=== PATIENT | male | born 1950 | race Caucasian/White ===

== ENCOUNTER 2016-12-03 18:03 | Inpatient (IN) | payer MEDICARE ==
[~2016-12-03] VITALS: Ht 175.3 cm; Wt 57.7 kg
[~2016-12-03 18:03] MED LIST: ASPI-587 PO; CALC600T; CLPD75T PO; HYDR1TAB86 PO; LISI10TA2 PO; LISI1TAB10; OMEP-10; THERMOTABS; TRAM50TA2 PO
[2016-12-03] MEDS ORDERED: fentaNYL INJECTION 100 MCG/2 ML AMP IVP STA (18:17)
[2016-12-03 18:20] LABS: BASOPHILS # (AUTO) 0.1 10^3/uL (0.0-0.1); BASOPHILS % (AUTO) 1 % (0-10); EOSINOPHILS # (AUTO) 0.1 10^3/uL (0.0-0.3); EOSINOPHILS % (AUTO) 1 % (0-10); LYMPHOCYTES # (AUTO) 1.2 X 10^3 (1.0-4.0); LYMPHOCYTES % (AUTO) 12 % (12-44); MEAN CORPUSCULAR HEMOGLOBIN 34 PG (25-34); MEAN CORPUSCULAR HGB CONC 36 G/DL (32-36); MEAN CORPUSCULAR VOLUME 96 FL (80-99); MEAN PLATELET VOLUME 8.8 FL (7.4-10.4); MONOCYTES # (AUTO) 0.8 X 10^3 (0.0-1.0); MONOCYTES % (AUTO) 7 % (0-12); NEUTROPHILS # (AUTO) 8.1 X 10^3 (1.8-7.8); NEUTROPHILS % (AUTO) 79 % (42-75); PLATELET COUNT 263 10^3/uL (130-400); RED CELL DISTRIBUTION WIDTH 12.4 % (10.0-14.5); WHITE BLOOD COUNT 10.2 10^3/uL (4.3-11.0)
[2016-12-03] MEDS ORDERED: NS IV 500 ML 500 ML IV ONE (18:29)
--- NOTE | 2016-12-03 18:29 | ED Fall/Injury ---
General Chief Complaint: Trauma-Non Activation Stated Complaint: PT FELL,RT HIP INJ Nursing Triage Note: PT REPORTS HE WAS COMING IN FROM OUTSIDE WHEN HE FELL/TRIPPED ON SOMETHING INSIDE THE HOUSE. PT REPORTS LANDING ON THE R SIDE. PT REPORTS R HIP/LEG PAIN BUT DENIES LOC OR HITTING HEAD. Source: patient Exam Limitations: no limitations History of Present Illness Time seen by provider: 18:09 Initial Comments Here with report of falling in his kitchen. He states that he tripped over a step stool and then fell in his kitchen. He was reaching up to try to get a plate when he tripped. Denies hitting his head. He did land on his right hip. His occurred about 330. It took a couple of hours to scoot himself to a phone. EMS was summoned and brought him here. They did initiate IV and give him 50 g of fentanyl IV in route for pain. This did help a little bit. Aside from hip pain, denies other concerns. Location Injury Occurred: HOME RESIDENCE Occurred: this afternoon Severity: moderate Injuries/Pain Location: pelvis, lower extremity Context: tripped Loss of Consciousness: no loss of consciousness Modifying Factors: Improves With Immobilization, Worse With Movement, Improves With Pain Medication Associated Symptoms (Fall): No Abdominal Pain, No Chest Pain, No Confusion, No Headache, No Lightheadedness, No Nausea/Vomiting, No Neck Pain, No Shortness of Air Allergies and Home Medications Allergies Coded Allergies: No Known Allergies (Unverified Allergy, Mild, 02/08/09) Home Medications Aspirin 81 Mg Tablet.dr 81 MG PO DAILY, (Reported) Clopidogrel 75 Mg Tablet, 1 EACH PO DAILY, (Reported) Cyclobenzaprine HCl 10 Mg Tablet, 10 MG PO TID, (Reported) Furosemide 40 Mg Tablet, 40 MG PO, (Reported) Hydrocodone Bit/Acetaminophen 1 Each Tablet, (Reported) Lisinopril 10 Mg Tablet, 10 MG PO DAILY, (Reported) Metoclopramide HCl 10 Mg Tablet, 10 MG PO BID, (Reported) Omeprazole 20 Mg Capsule., (Reported) Pravastatin Sodium 40 Mg Tablet, 40 MG PO DAILY, (Reported) Tramadol Hcl 50 Mg Tablet, (Reported) [thermotabs] TABLET, (Reported) Constitutional: see HPI, No chills, No fever Eyes: No Symptoms Reported Ears, Nose, Mouth, Throat: no symptoms reported Respiratory: no symptoms reported, No short of breath, No wheezing Cardiovascular: no symptoms reported, No chest pain, No edema Gastrointestinal: no symptoms reported, No nausea, No vomiting Genitourinary: no symptoms reported Musculoskeletal: see HPI, joint pain, muscle pain, muscle stiffness Skin: change in color (a few scattered bruises to bilateral arms), lesions ( small abscess right mid buttock) Psychiatric/Neurological: Denies Headache, Denies Weakness Past Xtndwjg-Lrjmgx-[place] Hx Patient Social History Alcohol Use: Regular Use Recreational Drug Use: No Smoking Status: Current Everyday Smoker Type Used: Cigarettes Recent Foreign Travel: No Contact w/Someone Who Travel: No Recent Hopitalizations: No Immunizations Up To Date Tetanus Booster (TDap): More than 5yrs Surgeries HX Surgeries: Yes (TRIPPLE BYPASS WITH STENT) Respiratory Hx Respiratory Disorders: No Cardiovascular Hx Cardiac Disorders: Yes Cardiac Disorders: Hypertension Neurological Hx Neurological Disorders: No Reproductive System Hx Reproductive Disorders: No Sexually Transmitted Disease: No Genitourinary Hx Genitourinary Disorders: No Gastrointestinal Hx Gastrointestinal Disorders: Yes Gastrointestinal Disorders: Gastroesophageal Reflux Musculoskeletal Hx Musculoskeletal Disorders: Yes Musculoskeletal Disorders: Arthritis, Scoliosis Endocrine Hx Endocrine Disorders: No HEENT HX ENT Disorders: Yes (occasional nosebleeds.) Cancer Hx Cancer: No Psychosocial Hx Psychiatric Problems: No Integumentary HX Skin/Integumentary Disorder: No Blood Transfusions Hx Blood Disorders: No Reviewed Nursing Assessment Reviewed/Agree w Nursing PMH: Yes Family Medical History Significant Family History: No Pertinent Family Hx Physical Exam Vital Signs Vital Sign - Last 12Hours 12/03/16 18:22 Temp 98.1 Pulse 99 Resp 18 B/P (MAP) 166/111 Pulse Ox 95 O2 Delivery Room Air Capillary Refill : General Appearance: WD/WN, mild distress (right hip and upper leg pain) HEENT: PERRL/EOMI, pharynx normal Neck: non-tender, full range of motion, supple, normal inspection Cardiovascular: regular rate, rhythm, no murmur Respiratory: lungs clear, normal breath sounds Peripheral Pulses: 2+ Dorsalis Pedis (R), 2+ Left Dors-Pedis (L), 2+ Radial Pulses (R), 2+ Radial Pulses (L) Gastrointestinal: non tender, soft Back: normal inspection, no CVA tenderness, no vertebral tenderness Extremities: pelvis stable, other (maintaining slightly flexed right leg and holding on to the right upper leg at the area of the right hip. No obvious deformity. Distal sensation and circulation intact.) Neurologic/Psychiatric: alert, oriented x 3 Skin: warm/dry, ecchymosis (bilateral forearms), other (small draining abscess to the right mid buttock area.) [place] Coma Score Best Eye Response: (4) Open Spontaneously Best Verbal Response: (5) Oriented Best Motor Response: (6) Obeys Commands Progress/Results/Core Measures Results/Orders Lab Results Laboratory Tests Test 12/03/16 18:14 12/03/16 18:40 12/03/16 19:26 Range/Units White Blood Count 10.2 4.3-11.0 10^3/uL Red Blood Count 3.70 L 4.35-5.85 10^6/uL Hemoglobin 12.6 L 13.3-17.7 G/DL Hematocrit 36 L 40-54 % Mean Corpuscular Volume 96 80-99 FL Mean Corpuscular Hemoglobin 34 25-34 PG Mean Corpuscular Hemoglobin Concent 36 32-36 G/DL Red Cell Distribution Width 12.4 10.0-14.5 % Platelet Count 263 130-400 10^3/uL Mean Platelet Volume 8.8 7.4-10.4 FL Neutrophils (%) (Auto) 79 H 42-75 % Lymphocytes (%) (Auto) 12 12-44 % Monocytes (%) (Auto) 7 0-12 % Eosinophils (%) (Auto) 1 0-10 % Basophils (%) (Auto) 1 0-10 % Neutrophils # (Auto) 8.1 H 1.8-7.8 X 10^3 Lymphocytes # (Auto) 1.2 1.0-4.0 X 10^3 Monocytes # (Auto) 0.8 0.0-1.0 X 10^3 Eosinophils # (Auto) 0.1 0.0-0.3 10^3/uL Basophils # (Auto) 0.1 0.0-0.1 10^3/uL Sodium Level 129 L 135-145 MMOL/L Potassium Level 4.0 3.6-5.0 MMOL/L Chloride Level 98 98-107 MMOL/L Carbon Dioxide Level 17 L 21-32 MMOL/L Anion Gap 14 5-14 MMOL/L Blood Urea Nitrogen 4 L 7-18 MG/DL Creatinine 0.58 L 0.60-1.30 MG/DL Estimat Glomerular Filtration Rate > 60 BUN/Creatinine Ratio 7 Glucose Level 90 70-105 MG/DL Calcium Level 8.3 L 8.5-10.1 MG/DL Total Bilirubin 0.4 0.1-1.0 MG/DL Aspartate Amino Transf (AST/SGOT) 24 5-34 U/L Alanine Aminotransferase (ALT/SGPT) 18 0-55 U/L Alkaline Phosphatase 68 40-136 U/L Total Protein 6.0 L 6.4-8.2 GM/DL Albumin 3.8 3.2-4.5 GM/DL Serum Alcohol < 10 <10 MG/DL Prothrombin Time 13.0 12.2-14.7 SEC INR Comment 1.0 0.8-1.4 Activated Partial Thromboplast Time 30 24-35 SEC Urine Color YELLOW Urine Clarity CLEAR Urine pH 6.5 5-9 Urine Specific [place] 1.010 L 1.016-1.022 Urine Protein NEGATIVE NEGATIVE Urine Glucose (UA) NEGATIVE NEGATIVE Urine Ketones NEGATIVE NEGATIVE Urine Nitrite NEGATIVE NEGATIVE Urine Bilirubin NEGATIVE NEGATIVE Urine Urobilinogen NORMAL NORMAL MG/DL Urine Leukocyte Esterase NEGATIVE NEGATIVE Urine RBC (Auto) NEGATIVE NEGATIVE Urine RBC NONE /HPF Urine WBC RARE /HPF Urine Crystals NONE /LPF Urine Bacteria NEGATIVE /HPF Urine Casts NONE /LPF Urine Mucus NEGATIVE /LPF Urine Culture Indicated NO My Orders Orders - LA[place] LAURENT MD Fentanyl Injection (Sublimaze Injection (12/03/16 18:17) Pelvis (12/03/16 18:18) Saline Lock/Iv-Start (12/03/16 18:29) Ns Iv 500 Ml (Sodium Chloride 0.9%) (12/03/16 18:29) Monitor-Rhythm Ecg Trace Only (12/03/16 18:29) Ct Extremity Lower Right Wo (12/03/16 19:04) Hydromorphone Injection (Dilaudid Inject (12/03/16 19:19) Catheter(Urinary) Insert & Ass 03,15 (12/03/16 19:19) Protime With Inr (12/03/16 19:20) Partial Thromboplastin Time (12/03/16 19:20) Medications Given in ED Current Medications Medications Dose Ordered Sig/Jorge Route Start Time Stop Time Status Last Admin Dose Admin Sodium Chloride 500 ml @ 0 mls/hr Q0M ONCE IV 12/03/16 18:29 12/03/16 18:30 DC 12/03/16 19:21 0 MLS/HR Vital Signs/I&O Vital Sign - Last 12Hours 12/03/16 18:22 Temp 98.1 Pulse 99 Resp 18 B/P (MAP) 166/111 Pulse Ox 95 O2 Delivery Room Air Progress Note : Progress Note Seen and evaluated. IV by EMS. Labs, EKG, chest x-ray, pelvic x-ray and right hip x-ray ordered. No one 100 g IV ordered. UA ordered. Monitor patient. We will get CT of the right hip due to vague findings on x-ray with over shadowing due to calcified vascular structures and difficulty with osteopenia. 1924: CT does verify intertrochanteric fracture and no other significant abnormality. I did discuss the case with Dr. Cano, on-call for [facility]. She accepts patient for admission. Case discussed with Dr. Bass at 1930 and he accepts patient in consult in anticipation of surgery. Dr. Rice page for cardiovascular clearance prior to surgery due to patient's history of cardiovascular disease. Findings concerns discussed with patient and family who agree. Dilaudid 1 mg IV for pain. Michael catheter placed. Admit, inpatient status. Nothing by mouth after midnight in anticipation of surgery tomorrow. 1954: I did discuss the case with Dr. Rice. He is requesting to hold Plavix and he will see patient for same the morning for clearance. This is ordered. Admitted inpatient. ECG Initial ECG Impression Date: Dec 03, 2016 Initial ECG Impression Time: 18:25 Initial ECG Rate: 97 Initial ECG Rhythm: Normal Sinus Comment Sinus rhythm with normal axis. No evidence of ST elevation RI. Similar to previous but increased rate. Interpreted by me. Diagnostic Imaging Diagonstic Imaging: Xray Plain Films/CT/US/NM/MRI: chest Comments NAME: MALACHI BRUNO MED REC#: [id number] PT STATUS: REG ER : 1950 PHYSICIAN: JOSE MARTELL APRN ADMIT DATE: 12/03/16/ER Signed Date of Exam: 12/03/16 CHEST 1 VIEW, AP/PA ONLY INDICATION: Fall COMPARISON: 03/31/2015 FINDINGS: A single frontal view of the chest is obtained. Heart size is normal. The pulmonary vessels appear unremarkable. The thoracic aortic structures are unchanged. There are post median sternotomy changes. There is no pneumothorax or pleural fluid. There is significant elevation of left hemidiaphragm which is unchanged from prior study. Some minimal left basilar atelectasis is also again noted. Lungs are otherwise clear. IMPRESSION: Significant elevation of the left hemidiaphragm with some left basilar atelectasis similar to the prior study. No new or acute abnormality is suspected. Dictated by: Dictated on workstation # [id number] Dict: 12/03/161903 Trans: 12/03/161907 Interpreted by: RYAN MOELLER DO Electronically signed by: RYAN MOELLER DO 12/03/161907 Diagonstic Imaging: Xray Plain Films/CT/US/NM/MRI: pelvis Comments Question of right hip fracture Reviewed: Reviewed by Nv Diagonstic Imaging: Xray Plain Films/CT/US/NM/MRI: pelvis Comments Likely a right intertrochanteric hip fracture. Reviewed: Reviewed by Nv Diagonstic Imaging: CT Plain Films/CT/US/NM/MRI: hip Comments [place]IA [place] NAME: MALACHI BRUNO [facility] REC#: [id number] PT STATUS: REG ER : 1950 PHYSICIAN: LA[place] LAURENT MD ADMIT DATE: 12/03/16/ER Draft Date of Exam:12/03/16 CT EXTREMITY LOWER RIGHT WO PROCEDURE: CT right lower extremity without contrast. TECHNIQUE: Axially acquired CT was obtained through the right lower extremity without intravenous contrast. Coronal and sagittal reformations were also performed. INDICATION: Right hip fracture. COMPARISON: Right hip and pelvis radiographs from earlier today. FINDINGS: Comminuted mildly distracted right intertrochanteric hip fracture. No fractures in the visualized pelvis. The right femoral head is normally situated in the acetabulum. Moderate degenerative changes in the right hip. Coarse arterial calcifications. Distended bladder. The visualized pelvic contents are otherwise unremarkable. IMPRESSION: 1. Comminuted mildly distracted right intertrochanteric hip fracture. 2. Distended bladder. Dictated on workstation # [id number] Dict: 12/03/161922 Trans: 12/03/161927 [facility] [id number] Interpreted by: CRUZITO RIOS MD Electronically signed by: Departure Communication Time/Spoke to Admitting Phy: 19:25 Time/Spoke to Consulting Physi: 19:30 Impression Impression: Primary Impression: Intertrochanteric fracture of right hip Qualified Codes: S72.144A - Nondisplaced intertrochanteric fracture of right femur, initial encounter for closed fracture Disposition: ADMITTED INPATIENT Condition: Stable Decision to Admit Reason: Admit from ER (General) Decision to Admit/Date: Dec 03, 2016 Time/Decision to Admit Time: 19:25 Departure-Patient Inst. Referrals: PRISCILA PITT MD (PCP/Family) Primary Care Physician LA[place] LAURENT MD Dec 03, 2016 18:29
[2016-12-03 18:38] LABS: ALANINE AMINOTRANSFERASE 18 U/L (0-55); ALBUMIN 3.8 GM/DL (3.2-4.5); ANION GAP 14 MMOL/L (5-14); ASPARTATE AMINO TRANSFERASE 24 U/L (5-34); BILIRUBIN,TOTAL 0.4 MG/DL (0.1-1.0); BLOOD UREA NITROGEN 4 MG/DL (7-18); BUN/CREATININE RATIO 7; CALCIUM 8.3 MG/DL (8.5-10.1); CARBON DIOXIDE 17 MMOL/L (21-32); CHLORIDE 98 MMOL/L (98-107); CREATININE SERUM 0.58 MG/DL (0.60-1.30); GFR ESTIMATED > 60; GLUCOSE 90 MG/DL (70-105); SODIUM 129 MMOL/L (135-145)
[2016-12-03] MEDS ORDERED: CYCL10TA9 PO (18:38)
[2016-12-03] MEDS ORDERED: PRAV40TA2 PO (18:38)
[2016-12-03] MEDS ORDERED: METO10TA3 PO ×2 (18:38→23:05)
[2016-12-03] MEDS ORDERED: FURO40TA4 PO (18:38)
--- NOTE | 2016-12-03 19:09 | Diagnostic Imaging Report ---
INDICATION: Fall COMPARISON: 03/31/2015 FINDINGS: A single frontal view of the chest is obtained. Heart size is normal. The pulmonary vessels appear unremarkable. The thoracic aortic structures are unchanged. There are post median sternotomy changes. There is no pneumothorax or pleural fluid. There is significant elevation of left hemidiaphragm which is unchanged from prior study. Some minimal left basilar atelectasis is also again noted. Lungs are otherwise clear. IMPRESSION: Significant elevation of the left hemidiaphragm with some left basilar atelectasis similar to the prior study. No new or acute abnormality is suspected. Dictated by: Dictated on workstation # [id number]
[2016-12-03] MEDS ORDERED: HYDROmorphone (DILAUDID) 2 MG/ML VIAL IVP STA (19:19)
--- NOTE | 2016-12-03 19:29 | Diagnostic Imaging Report ---
PROCEDURE: CT right lower extremity without contrast. TECHNIQUE: Axially acquired CT was obtained through the right lower extremity without intravenous contrast. Coronal and sagittal reformations were also performed. INDICATION: Right hip fracture. COMPARISON: Right hip and pelvis radiographs from earlier today. FINDINGS: Comminuted mildly distracted right intertrochanteric hip fracture. No fractures in the visualized pelvis. The right femoral head is normally situated in the acetabulum. Moderate degenerative changes in the right hip. Coarse arterial calcifications. Distended bladder. The visualized pelvic contents are otherwise unremarkable. IMPRESSION: 1. Comminuted mildly distracted right intertrochanteric hip fracture. 2. Distended bladder. Dictated by: Dictated on workstation # [id number]
[2016-12-03 19:32] LABS: BILIRUBIN,URINE NEGATIVE (NEGATIVE); KETONES,URINE NEGATIVE (NEGATIVE); LEUKOCYTE ESTERASE ,URINE NEGATIVE (NEGATIVE); NITRITE,URINE NEGATIVE (NEGATIVE); PH,URINE 6.5 (5-9); PROTEIN,URINE NEGATIVE (NEGATIVE); UROBILINOGEN,URINE NORMAL (NORMAL)
[2016-12-03 19:43] LABS: WBC,URINE RARE /HPF
[2016-12-03 20:05] VITALS: BP 163/103
[2016-12-03] MEDS: HYDROmorphone (DILAUDID) 2 MG/ML VIAL IV PRN (21:22)
[2016-12-03] MEDS: CATHETER FLUSH 10 ML SYR IV SCH (21:22)
[2016-12-03] MEDS ORDERED: CATHETER FLUSH 10 ML SYR IV PRN (21:30)
[2016-12-03] MEDS ORDERED: FLUTICASONE NS (23:05)
[2016-12-03] MEDS: NS IV 1000 ML 1,000 ML IV SCH (23:22)
[2016-12-04] VITALS (7 sets, daily range): BP systolic 98–177; BP diastolic 57–101
[2016-12-04] MEDS ORDERED: amLODIPine 5 MG (NORVASC) TAB PO ONE (00:30)
[2016-12-04] MEDS: HYDROmorphone (DILAUDID) 2 MG/ML VIAL IV PRN ×3 (00:33→08:02)
[2016-12-04] MEDS: NS IV 1000 ML 1,000 ML IV SCH ×3 (06:01→20:29)
[2016-12-04] MEDS: CATHETER FLUSH 10 ML SYR IV SCH ×3 (06:01→20:30)
[2016-12-04 06:10] LABS: BASOPHILS % (AUTO) 0 % (0-10); EOSINOPHILS % (AUTO) 0 % (0-10); LYMPHOCYTES # (AUTO) 1.2 X 10^3 (1.0-4.0); LYMPHOCYTES % (AUTO) 12 % (12-44); MEAN CORPUSCULAR HEMOGLOBIN 34 PG (25-34); MEAN CORPUSCULAR HGB CONC 36 G/DL (32-36); MEAN CORPUSCULAR VOLUME 97 FL (80-99); MEAN PLATELET VOLUME 9.1 FL (7.4-10.4); MONOCYTES # (AUTO) 0.9 X 10^3 (0.0-1.0); MONOCYTES % (AUTO) 9 % (0-12); NEUTROPHILS # (AUTO) 7.9 X 10^3 (1.8-7.8); NEUTROPHILS % (AUTO) 79 % (42-75); PLATELET COUNT 272 10^3/uL (130-400); RED BLOOD COUNT 3.64 10^6/uL (4.35-5.85); RED CELL DISTRIBUTION WIDTH 12.5 % (10.0-14.5); WHITE BLOOD COUNT 10.1 10^3/uL (4.3-11.0)
[2016-12-04 06:37] LABS: ALANINE AMINOTRANSFERASE 17 U/L (0-55); ALBUMIN 3.7 GM/DL (3.2-4.5); ANION GAP 10 MMOL/L (5-14); ASPARTATE AMINO TRANSFERASE 27 U/L (5-34); BILIRUBIN,TOTAL 0.6 MG/DL (0.1-1.0); BLOOD UREA NITROGEN 4 MG/DL (7-18); BUN/CREATININE RATIO 7; CALCIUM 8.5 MG/DL (8.5-10.1); CARBON DIOXIDE 22 MMOL/L (21-32); CHLORIDE 99 MMOL/L (98-107); CREATININE SERUM 0.58 MG/DL (0.60-1.30); GFR ESTIMATED > 60; GLUCOSE 93 MG/DL (70-105); SODIUM 131 MMOL/L (135-145)
[2016-12-04] MEDS: ONDANSETRON 4 MG/2 ML (SDV) Z0FRAN IV PRN ×3 (08:02→13:26)
[2016-12-04] MEDS ORDERED: fentaNYL INJECTION 250 MCG/5 ML AMP ONE (09:37)
[2016-12-04] MEDS ORDERED: MIDAZOLAM 2 MG/2 ML (VERSED) VIAL ONE (09:37)
[2016-12-04] MEDS ORDERED: proPOfol 200 MG/20 ML (DIPRIVAN) VIAL IV ONE (09:37)
[2016-12-04] MEDS: LACTATED RINGERS 1,000 ML IV PRN ×2 (09:45→11:01)
[2016-12-04] MEDS ORDERED: LACTATED RINGERS 1,000 ML IV ONE ×2 (09:48→10:46)
[2016-12-04] MEDS ORDERED: ceFAZolin 1,000 MG (ANCEF) VIAL ONE (10:13)
[2016-12-04] MEDS ORDERED: HYDROcodone/APAP 10 MG/325 MG (LORTAB) TAB PO PRN (10:15)
[2016-12-04] MEDS ORDERED: morphine INJ 10 MG/ML 1ML (SYR OR VIAL) ONE ×2 (10:18→10:47)
--- NOTE | 2016-12-04 10:29 | Consultation ---
History of Present Illness History of Present Illness Patient Consulted On(jennifer/time) 12/04/16 10:23 Date Seen by Provider: Dec 04, 2016 Time Seen by Provider: 10:23 Reason for Visit: right hip pain History of Present Illness This 66 year old male fell at home and had a right hip fracture and was admitted to Dr. Cano last night with me consulting. He denies any LOC and denies other pain or injury. He has chronic but stable CAD and is on chronic narcotics for lower back problems. Allergies and Home Medications Allergies Coded Allergies: NKANo Known Allergies (Unverified Allergy, Mild, 02/08/09) Home Medications Aspirin 81 Mg Tablet.dr, 81 MG PO DAILY, (Reported) Clopidogrel 75 Mg Tablet, 1 EACH PO DAILY, (Reported) Cyclobenzaprine HCl 10 Mg Tablet, 10 MG PO TID, (Reported) Furosemide 40 Mg Tablet, 40 MG PO DAILY PRN for INDIGESTION, (Reported) Hydrocodone Bit/Acetaminophen 1 Each Tablet, 1 TAB PO Q4H PRN for PAIN-MILD, ( Reported) Lisinopril 10 Mg Tablet, 10 MG PO DAILY, (Reported) Metoclopramide HCl 10 Mg Tablet, 10 MG PO BID, (Reported) Metoclopramide HCl 10 Mg Tablet, 10 MG PO BID, (Reported) Pravastatin Sodium 40 Mg Tablet, 40 MG PO DAILY, (Reported) Tramadol Hcl 50 Mg Tablet, 1 TAB PO Q6H PRN for PAIN-MILD, (Reported) [Fluticasone] , 50 MCG NS DAILY, (Reported) Past Lllzvwj-Lqqavw-Soobis Hx Patient Social History Alcohol Use: Occasionally Uses Recreational Drug Use: No Smoking Status: Current Everyday Smoker Type Used: Cigarettes Recent Foreign Travel: No Contact w/Someone Who Travel: No Recent Infectious Disease Expo: No Recent Hopitalizations: No Physical Abuse Screen: No Sexual Abuse: No Immunizations Up To Date Tetanus Booster (TDap): More than 5yrs Seasonal Allergies Seasonal Allergies: No Surgeries HX Surgeries: Yes (TRIPPLE BYPASS WITH STENT) Respiratory Hx Respiratory Disorders: No Cardiovascular Hx Cardiac Disorders: Yes Cardiac Disorders: Hypertension Neurological Hx Neurological Disorders: No Reproductive System Hx Reproductive Disorders: No Sexually Transmitted Disease: No HIV/AIDS: No Genitourinary Hx Genitourinary Disorders: No Gastrointestinal Hx Gastrointestinal Disorders: Yes Gastrointestinal Disorders: Gastroesophageal Reflux Musculoskeletal Hx Musculoskeletal Disorders: Yes Musculoskeletal Disorders: Arthritis Endocrine Hx Endocrine Disorders: No HEENT HX ENT Disorders: Yes (occasional nosebleeds.) Hearing Impairment: Hard of Hearing Cancer Hx Cancer: No Psychosocial Hx Psychiatric Problems: No Integumentary HX Skin/Integumentary Disorder: No Blood Transfusions Hx Blood Disorders: No Reviewed Nursing Assessment Reviewed/Agree w Nursing PMH: Yes Family Medical History Significant Family History: No Pertinent Family Hx Family Medial History: Cardiovascular disease 19 FATHER 19 MOTHER G8 BROTHER G8 SISTER FH: breast cancer 19 MOTHER Hypertension 19 FATHER 19 MOTHER Review of Systems-General Constitutional: no symptoms reported EENTM: no symptoms reported Respiratory: no symptoms reported Cardiovascular: no symptoms reported, other (Denies chest pain) Gastrointestinal: no symptoms reported Genitourinary: no symptoms reported Musculoskeletal: other (See HPI) Skin: other (He has bruises and minor hand abrasions from the fall) Psychiatric/Neurological: No Symptoms Reported Physical Exam-General Problems Physical Exam Vital Signs Vital Sign - Last 12Hours 12/03/16 18:22 Temp 98.1 Pulse 99 Resp 18 B/P (MAP) 166/111 Pulse Ox 95 O2 Delivery Room Air Capillary Refill : Less Than 3 SecondsLess Than 3 Seconds General Appearance: no apparent distress, thin Eyes: Bilateral Eye Normal Inspection, Bilateral Eye PERRL HEENT: PERRL/EOMI Neck: non-tender Respiratory: chest non-tender, lungs clear Cardiovascular: normal peripheral pulses, regular rate, rhythm Gastrointestinal: normal bowel sounds, non tender Rectal: deferred Back: normal inspection Extremities: other (Right hip tender to palpation and right leg shortened and externally rotated. Other extremities atraumatic) Neurologic/Psychiatric: no motor/sensory deficits Skin: normal color, warm/dry, ecchymosis Lymphatic: no adenopathy Assessment/Plan Assessment/Plan Admission Diagnosis/Plan Right intertrochanteric femur fracture-- will go to the OR for trochanteric femoral nail. We discussed rehab or SNU and he is agreeable to that to recover from the surgery Clinical Quality Measures DVT/VTE Risk/Contraindication: Risk Factor Score Per Nursin RFS Level Per Nursing on Admit: 4+=Very High YOCASTA GOMEZ MD Dec 04, 2016 10:28
[2016-12-04] MEDS ORDERED: ONDANSETRON 4 MG/2 ML (SDV) Z0FRAN ONE (10:46)
--- NOTE | 2016-12-04 11:05 | Progress Note-Post Operative ---
Post-Operative Progess Note Surgeon (s)/Nanofabrication Specialist (s) Surgeon YOCASTA GOMEZ MD Nanofabrication Specialist: CEDRICK GUNN PA-C Pre-Operative Diagnosis RIGHT INTERTROCHANTERIC FEMUR FRACTURE Post-Operative Diagnosis SAME Procedure & Operative Findings Date of Procedure 12/04/16 Procedure Performed/Findings ORIF RIGHT INTERTROCHANTERIC FEMUR FRACTURE USING TROCHANTERIC FEMORAL NAIL Anesthesia Type GENERAL Estimated Blood Loss Estimated blood loss (mL): 100 ML Specimens/Packing Specimens Removed NONE Packing: NONE YOCASTA GOMEZ MD Dec 04, 2016 11:05
[2016-12-04] MEDS ORDERED: SEVOFLURANE (ULTANE) 15 ML INHAL SOLN ONE (11:10)
--- NOTE | 2016-12-04 11:27 | Diagnostic Imaging Report ---
INDICATION: Hip fracture. IMPRESSION: 37.2 seconds of fluoroscopy was used by Dr. Bass in surgery. 2 digital images show internal fixation of an intertrochanteric fracture with a dynamic compression nail. Dictated by: Dictated on workstation # [id number]
[2016-12-04] MEDS ORDERED: ONDANSETRON 4 MG/2 ML (SDV) Z0FRAN IVP PRN (11:30)
[2016-12-04] MEDS ORDERED: KETOROLAC 30 MG/ML VIAL IVP ONE (11:30)
[2016-12-04] MEDS ORDERED: HYDROmorphone (DILAUDID) 2 MG/ML VIAL IVP PRN (11:30)
[2016-12-04] MEDS: morphine INJ 10 MG/ML 1ML (SYR OR VIAL) IVP PRN ×4 (11:43→11:56)
[2016-12-04] MEDS ORDERED: ACETAMINOPHEN PO PRN (12:45)
[2016-12-04] MEDS ORDERED: FUROSEMIDE 40 MG (LASIX) TAB PO PRN (12:45)
[2016-12-04] MEDS ORDERED: HYDROCODONE BIT PO PRN (12:45)
[2016-12-04] MEDS ORDERED: hydrALAZINE (APRESOLINE) 25 MG TAB PO PRN (12:45)
[2016-12-04] MEDS ORDERED: [UNRECOGNIZED DRUG - OTHER] PO PRN (12:45)
[2016-12-04] MEDS: amLODIPine 5 MG (NORVASC) TAB PO SCH (13:07)
[2016-12-04] MEDS: CYCLOBENZAPRINE 10 MG (FLEXERIL) TAB PO SCH ×2 (13:07→20:27)
[2016-12-04] MEDS: ceFAZolin 2 GM/50 ML NS 50 ML IV SCH ×2 (13:08→18:02)
--- NOTE | 2016-12-04 13:12 | Physical Therapy Progress Note ---
Therapy Progress Note Order received, chart reviewed. Patient just got to his room from recovery, he is not ready for physical therapy at this time. He will be seen in the morning. SILVIO NAIDU PT Dec 04, 2016 13:12
--- NOTE | 2016-12-04 13:20 | History & Physical-Hospitalist ---
HPI History of Present Illness: HPI/Chief Complaint CC: ACUTE RIGHT INTERTROCHANTERIC FEMUR FRACTURE POD # 0 HPI: This is a 66-year-old white male that who continues to smoke with a previous bypass surgery in [address] Link at [facility] in [place] the presents following a fall and sustaining a right hip fracture. He just returned from surgery and had an uncomplicated repair by Dr. Bass. The family is aware of the plan that he will need physical therapy and it appears that they will be open to returning home as soon as possible due to family support that is provided. I did initiate incentive spirometer and smoking cessation and will monitor blood pressure since it was elevated I did give Norvasc 5 mg now in addition reconciled and continued all home medications include lisinopril. Source: patient, family Exam Limitations: no limitations Date Seen 12/04/16 Time Seen by Provider: 13:15 Attending Physician Mary Jo Ray DO PCP Bridger Reyes MD Referring Physician Date of Admission Dec 03, 2016 at 19:47 Home Medications & Allergies Home Medications Reviewed patient Home Medication Reconciliation Form Allergies Allergies Coded Allergies NKANo Known Allergies (Unverified Allergy, Mild, 02/08/09) Past Dmnmppr-Hspypz-Fngbtz Hx Patient Social History Marrital Status: Employed/Student: retired Alcohol Use: Occasionally Uses Recreational Drug Use: No Smoking Status: Current Everyday Smoker Type Used: Cigarettes Physical Abuse Screen: No Sexual Abuse: No Recent Foreign Travel: No Contact w/other who traveled: No Recent Hopitalizations: No Recent Infectious Disease Expo: No Immunizations Up To Date Tetanus Booster (TDap): More than 5yrs Seasonal Allergies Seasonal Allergies: No Surgeries HX Surgeries: Yes (TRIPPLE BYPASS WITH STENT) Surgeries: CABG Respiratory Hx Respiratory Disorders: Yes Respiratory Disorders: COPD Cardiovascular Hx Cardiovascular Disorders: Yes Cardiac Disorders: High Cholesterol, Hypertension Neurological Hx Neurological Disorders: No Reproductive System Hx Reproductive Disorders: No Sexually Transmitted Disease: No HIV/AIDS: No Genitourinary Hx Genitourinary Disorders: No Gastrointestinal Hx Gastrointestinal Disorders: Yes Gastrointestinal Disorders: Gastroesophageal Reflux Musculoskeletal Hx Musculoskeletal Disorders: Yes Musculoskeletal Disorders: Arthritis Endocrine Hx Endocrine Disorders: No HEENT HX ENT Disorders: Yes (occasional nosebleeds.) Hearing Impairment: Hard of Hearing Cancer Hx Cancer: No Psychosocial Hx Psychiatric Problems: No Integumentary HX Skin/Integumentary Disorder: No Blood Transfusions Hx Blood Disorders: No Reviewed Nursing Assessment Reviewed/Agree w Nursing PMH: Yes Family Medical History Significant Family History: No Pertinent Family Hx Family Hx: Cardiovascular disease 19 FATHER 19 MOTHER G8 BROTHER G8 SISTER FH: breast cancer 19 MOTHER Hypertension 19 FATHER 19 MOTHER Review of Systems Constitutional: see HPI, weakness EENTM: no symptoms reported Respiratory: no symptoms reported Cardiovascular: no symptoms reported Gastrointestinal: no symptoms reported Genitourinary: no symptoms reported Musculoskeletal: back pain, joint pain Skin: no symptoms reported Psychiatric/Neurological: Depressed All Other Systems Reviewed Negative Unless Noted: Yes Physical Exam Physical Exam Vital Signs Vital Sign - Last 12Hours 12/03/16 12/04/16 18:22 12:35 Temp 98.1 Pulse 99 Resp 18 B/P (MAP) 166/111 Pulse Ox 95 O2 Delivery Room Air O2 Flow Rate 3.00 Capillary Refill : Less Than 3 SecondsLess Than 3 Seconds General Appearance: No Apparent Distress, WD/WN, Chronically ill, Thin Eyes: Bilateral Eye Normal Inspection, Bilateral Eye PERRL HEENT: PERRL/EOMI, Normal ENT Inspection, Pharynx Normal Neck: Full Range of Motion, Normal Inspection, Non Tender, Supple, Carotid Bruit Respiratory: Chest Non Tender, Lungs Clear, No Accessory Muscle Use, No Respiratory Distress, Decreased Breath Sounds Cardiovascular: Regular Rate, Rhythm, No Edema, No Gallop, No JVD, No Murmur, Normal Peripheral Pulses Gastrointestinal: Normal Bowel Sounds, No Organomegaly, No Pulsatile Mass, Non Tender, Soft Back: Normal Inspection, No CVA Tenderness, No Vertebral Tenderness Extremity: Normal Capillary Refill, Normal Inspection, Normal Range of Motion ( limited due to recent hip fracture repair), Non Tender, No Calf Tenderness, No Pedal Edema Neurologic/Psychiatric: Alert, Oriented x3, No Motor/Sensory Deficits, Normal Mood/Affect Skin: Normal Color, Warm/Dry Lymphatic: No Adenopathy Results Results/Procedures Lab Laboratory Tests 12/03/16 18:14 12/04/16 05:20 Assessment/Plan Admission Diagnosis Assessment: s/p UNCOMPLICATED RIGHT INTERTROCHANTERIC FEMUR FRACTURE POD # [address] Syed Smoker HTN COPD CABG previous CABG Debilitated status Assessment and Plan Plan: Monitor labs especially hemoglobin PT/OT Bowel regimen Incentive spirometer Monitor labs closely due to current smoking Smoking cessation counseled DVT Px Clinical Quality Measures DVT/VTE Risk/Contraindication: Risk Factor Score Per Nursin RFS Level Per Nursing on Admit: 4+=Very High MARY JO RAY DO Dec 04, 2016 13:20
[2016-12-04] MEDS: morphine INJ 4 MG/ML 1 ML (VIAL/SYRINGE) IV PRN ×2 (13:26→17:06)
[2016-12-04] MEDS: HYDROcodone/APAP 10 MG/325 MG (LORTAB) TAB PO PRN (18:48)
[2016-12-04] MEDS: SIMvastatin 20 MG (ZOCOR) TAB PO SCH (20:27)
[2016-12-04] MEDS: METOCLOPRAMIDE 10 MG (REGLAN) TAB PO SCH (20:27)
[2016-12-04] MEDS ORDERED: METOCLOPRAMIDE 10 MG (REGLAN) TAB PO SCH (21:00)
[2016-12-05] VITALS: BP 106/73
[2016-12-05] MEDS: ceFAZolin 2 GM/50 ML NS 50 ML IV SCH ×2 (01:18→09:43)
[2016-12-05] MEDS: CATHETER FLUSH 10 ML SYR IV SCH ×3 (03:47→20:04)
[2016-12-05 04:00] VITALS: BP 138/80
[2016-12-05] MEDS: NS IV 1000 ML 1,000 ML IV SCH ×3 (05:09→20:48)
[2016-12-05 05:21] LABS: BASOPHILS % (AUTO) 0 % (0-10); EOSINOPHILS # (AUTO) 0.1 10^3/uL (0.0-0.3); EOSINOPHILS % (AUTO) 1 % (0-10); LYMPHOCYTES % (AUTO) 11 % (12-44); MEAN CORPUSCULAR HEMOGLOBIN 34 PG (25-34); MEAN CORPUSCULAR HGB CONC 34 G/DL (32-36); MEAN CORPUSCULAR VOLUME 99 FL (80-99); MEAN PLATELET VOLUME 9.1 FL (7.4-10.4); MONOCYTES % (AUTO) 11 % (0-12); NEUTROPHILS # (AUTO) 7.2 X 10^3 (1.8-7.8); NEUTROPHILS % (AUTO) 77 % (42-75); PLATELET COUNT 226 10^3/uL (130-400); RED BLOOD COUNT 2.57 10^6/uL (4.35-5.85); RED CELL DISTRIBUTION WIDTH 12.6 % (10.0-14.5); WHITE BLOOD COUNT 9.4 10^3/uL (4.3-11.0)
[2016-12-05 06:20] LABS: ALANINE AMINOTRANSFERASE 18 U/L (0-55); ALBUMIN 3.1 GM/DL (3.2-4.5); ANION GAP 12 MMOL/L (5-14); ASPARTATE AMINO TRANSFERASE 21 U/L (5-34); BILIRUBIN,TOTAL 0.4 MG/DL (0.1-1.0); BLOOD UREA NITROGEN 7 MG/DL (7-18); BUN/CREATININE RATIO 12; CALCIUM 7.9 MG/DL (8.5-10.1); CARBON DIOXIDE 19 MMOL/L (21-32); CHLORIDE 101 MMOL/L (98-107); CREATININE SERUM 0.58 MG/DL (0.60-1.30); GFR ESTIMATED > 60; GLUCOSE 107 MG/DL (70-105); POTASSIUM 3.8 MMOL/L (3.6-5.0); SODIUM 132 MMOL/L (135-145); TOTAL PROTEIN 5.1 GM/DL (6.4-8.2)
[2016-12-05] MEDS: HYDROcodone/APAP 10 MG/325 MG (LORTAB) TAB PO PRN ×3 (07:35→23:34)
[2016-12-05 08:00] VITALS: BP 131/80
[2016-12-05] MEDS ORDERED: RT-ALBUTEROL/IPRATROPIUM 3 ML (DUONEB) VIAL INH PRN (08:00)
--- NOTE | 2016-12-05 09:01 | Physical Therapy Evaluation ---
PT Evaluation-General Medical Diagnosis Admission Date Dec 03, 2016 at 19:47 Medical Diagnosis: right intertrochanteric femur fracture Onset Date: Dec 04, 2016 Therapy Diagnosis Therapy Diagnosis: impaired mobility, strength, endurance Height/Weight Height (Feet): 5 Height (Inches): 9.00 Weight (Pounds): 127 Weight (Ounces): 2.3 Precautions Precautions/Isolations: Fall Prevention, Standard Precautions Weight Bear Status Weight Bearing Restriction: Weight Bearing/Tolerated Location Restriction: R LE Referral Physician: Kristopher Bass MD Reason for Referral: Evaluation/Treatment Medical History Pertinent Medical History: Arthritis, CAD, COPD, GERD, HTN, Smoking Additional Medical History [place], high cholesterol, surg (triple bypass) Current History fell at home and had right hip fx Reviewed History: Yes Social History Home: Single Level Current Living Status: Alone Entry Into Home: Stairs With Railing PT Steps Into Home: 5 Patient states he has family that can help him at home. Prior/Core FIM Prior Level of Function Functional Coleman Measure 0=Not Assessed/NA 4=Minimal Assistance 1=Total Assistance 5=Supervision or Setup 2=Maximal Assistance 6=Modified Coleman 3=Moderate Assistance 7=Complete Coleman Bed Mobility: 7 Transfers (B,C,W/C) (FIM): 7 Gait: 7 PT Evaluation-Current Subjective Patient in bed pre tx, agrees to PT, has pain of 6/10 in right leg. Pt/Family Goals to be independent at home Objective Patient Orientation: Person, Place, Situation Attachments: Michael Catheter, IV ROM/Strength ROM Lower Extremities NT Strenght Lower Extremities NT Neuromuscular (Tone, Coordination, Reflexes) WNL Sensory Vision: Functional Hearing: Impaired Sensation Right Lower Extremit: Intact Sensation Left Lower Extremity: Intact Transfers Functional Coleman Measure 0=Not Assessed/NA 4=Minimal Assistance 1=Total Assistance 5=Supervision or Setup 2=Maximal Assistance 6=Modified Coleman 3=Moderate Assistance 7=Complete Coleman Transfers (B, C, W/C) (FIM): 2 Scootin Rollin Supine to/from Sit: 2 Sit to/from Stand: 2 bed t/f WC(FIM only if WC use): 2 Patient was transferred from the bed to chair with max assist, he was not able to stand and use the walker or take any steps. Balance Sitting Static: Normal Sitting Dynamic: Normal Standing Static: Poor Standing Dynamic: Poor Treatment seated right leg exercises x10 (AP, LAQ) Assessment/Needs Patient has impaired mobility, strength, endurance post right hip surg. Rehab Potential: Fair PT Custodial Goals Arc Cutter Goals PT Custodial Goals Time Frame: Dec 12, 2016 Transfers (B,C,W/C) (FIM): 3 Gait (FIM): 1 Distance: 10' Gait Level of Assist: 3 Gait Assistive Device: FWW PT Plan Problem List Problem List: Activity Tolerance, Functional Strength, Safety, Balance, Gait, Transfer, Bed Mobility, ROM Treatment/Plan Treatment Plan: Continue Plan of Care Treatment Plan: Bed Mobility, Education, Functional Activity Gonzalez, Functional Strength, Gait, Safety, Therapeutic Exercise, Transfers Treatment Duration: Dec 12, 2016 Frequency: Twice Daily (only once daily on the weekends) Estimated Hrs Per Day: .25 hour per day (15-30 min) Patient and/or Family Agrees t: Yes Safety Risks/Education Patient Education: Transfer Techniques, Correct Positioning, Safety Issues Teaching Recipient: Patient Teaching Methods: Demonstration, Discussion Response to Teaching: Reinforcement Needed Discharge Recommendations Plan Patient will perform bed mobility and transfer training, balance and endurance training, functional strengthening, stair training, gait training, and education , to improve functional mobility and independence at home. Therapy D/C Recommendations: Home w/ Family Support, Retirement (TCU/NH) Time/GCodes Time In: 840 Time Out: 855 Total Billed Treatment Time: 15 Total Billed Treatment 1 visit ARELY 15' SILVIO NAIDU PT Dec 05, 2016 09:01
[2016-12-05] MEDS: lisINopril 10 MG (PRINIVIL) TAB PO SCH (09:15)
[2016-12-05] MEDS: CYCLOBENZAPRINE 10 MG (FLEXERIL) TAB PO SCH ×3 (09:15→20:02)
[2016-12-05] MEDS: FLUTICASONE NASAL SPRAY (FLONASE) 16 GM BTL NS SCH (09:15)
[2016-12-05] MEDS: amLODIPine 5 MG (NORVASC) TAB PO SCH (09:15)
[2016-12-05] MEDS: METOCLOPRAMIDE 10 MG (REGLAN) TAB PO SCH ×2 (09:15→20:02)
[2016-12-05] MEDS: RT-ALBUTEROL/IPRATROPIUM 3 ML (DUONEB) VIAL INH SCH ×4 (10:45→22:12)
--- NOTE | 2016-12-05 11:03 | Consultation-Cardiology ---
HPI-Cardiology Cardiology Consultation: Date of Consultation 12/05/16 Date of Admission Attending Physician Mary Jo Cano DO Admitting Physician Bridger Reyes MD Consulting Physician Marti RICE MD HPI: Time Seen by Provider: 11:01 Chief Complaint: Postop hip surgery This is a 66-year-old gentleman who has history of coronary artery disease, status post CABG, active smoking. He presented with hip fracture and had hip surgery yesterday. He denies any significant cardiac symptoms. He denies chest pain, shortness of breath, syncope, near-syncope, palpitations. Review of Systems-Cardiology Review of Systems Constitutional: No As described under HPI, No no symptoms reported, No chills, No fever, No lightheadedness, No malaise, No tiredness, No weight loss, No weight gain, No other Eyes: No As described under HPI, No no symptoms reported, No blindness, No blurred vision, No contact lenses, No drainage, No decreased acuity, No foreign body sensation, No glasses, No inflammation, No pain, No photophobia, No previous injury, No shadows, No tunnel vision, No other, No vision change Ears/Nose/Throat: No As described under HPI, No no symptoms reported, No chronic hearing loss, No epistaxis, No ear discharge, No ear pain, No loose teeth, No mouth pain, No mouth swelling, No nasal drainage, No nose pain, No recent hearing loss, No throat pain, No throat swelling, No ulcerations, No other Respiratory: No no symptoms reported, No As described under HPI, No cough, No orthopnea, No shortness of breath, No SOB with excertion, No SOB at rest, No stridor, No wheezing, No other Cardiovascular: No no symptoms reported, No As described under HPI, No chest pain, No edema, No irregular heart rate, No lightheadedness, No palpitations, No syncope, No other Gastrointestinal: No no symptoms reported, No As described under HPI, No abdomen distended, No abdominal pain, No blood streaked bowels, No constipation , No diarrhea, No difficulty swallowing, No nausea, No poor appetite, No poor fluid intake, No rectal bleeding, No vomiting, No other, No nausea/vomiting/ diarrhea, No stool coloration changes Genitourinary: No no symptoms reported, No As described under HPI, No burning, No dysuria, No discharge, No frequency, No flank pain, No hematuria, No incontinence, No pain, No urgency, No other, No urine frequency changes, No urine coloration changes Musculoskeletal: joint pain Skin: No no symptoms reported, No As described under HPI, No change in color, No change in hair/nails, No dryness, No lesions, No lumps, No rash, No other, No skin related problems, No ulcerations, No rash on exposed areas, No ulcerations on exposed areas Psychiatric/Neurological: No As described under HPI, No anxiety, No depression , No emotional problems, No focal weakness, No headache, No no symptoms reported , No numbness, No other, No pre-existing deficit, No seizure, No syncope, No tingling, No tremors, No weakness Hematologic: No no symptoms reported, No As described under HPI, No anemia, No blood clots, No easy bleeding, No easy bruising, No swollen glands, No other, No bleeding abnormalities All Other Systems Reviewed Negative Unless Noted: Yes MDC-Fmqgel-Bpeblb Hx Patient Social History Marrital Status: Employed/Student: retired Alcohol Use: Occasionally Uses Recreational Drug Use: No Smoking Status: Current Everyday Smoker Type Used: Cigarettes Recent Foreign Travel: No Recent Infectious Disease Expo: No Physical Abuse Screen: No Sexual Abuse: No Immunizations Up To Date Tetanus Booster (TDap): More than 5yrs Past Medical History PMH As described under Assessment. Family Medical History Family History: Cardiovascular disease 19 FATHER 19 MOTHER G8 BROTHER G8 SISTER FH: breast cancer 19 MOTHER Hypertension 19 FATHER 19 MOTHER Allergies and Home Medications Allergies Coded Allergies: NKANo Known Allergies (Unverified Allergy, Mild, 02/08/09) Home Medications Aspirin 81 Mg Tablet.dr, 81 MG PO DAILY, (Reported) Clopidogrel 75 Mg Tablet, 1 EACH PO DAILY, (Reported) Cyclobenzaprine HCl 10 Mg Tablet, 10 MG PO TID, (Reported) Furosemide 40 Mg Tablet, 40 MG PO DAILY PRN for INDIGESTION, (Reported) Hydrocodone Bit/Acetaminophen 1 Each Tablet, 1 TAB PO Q4H PRN for PAIN-MILD, ( Reported) Lisinopril 10 Mg Tablet, 10 MG PO DAILY, (Reported) Metoclopramide HCl 10 Mg Tablet, 10 MG PO BID, (Reported) Metoclopramide HCl 10 Mg Tablet, 10 MG PO BID, (Reported) Pravastatin Sodium 40 Mg Tablet, 40 MG PO DAILY, (Reported) Tramadol Hcl 50 Mg Tablet, 1 TAB PO Q6H PRN for PAIN-MILD, (Reported) [Fluticasone] , 50 MCG NS DAILY, (Reported) Physical Exam-Cardiology Physical Exam Vital Signs/I&O Vital Sign - Last 12Hours 12/05/16 12/05/16 12/05/16 12/05/16 00:00 04:00 07:09 07:15 Temp 97.7 99.3 Pulse 99 104 Resp 18 20 B/P (MAP) 106/73 138/80 Pulse Ox 94 92 85 93 O2 Delivery Nasal Cannula Nasal Cannula Nasal Cannula O2 Flow Rate 3.00 3.00 1.00 12/05/16 10:46 Pulse Ox 93 O2 Delivery Room Air Intake and Output 12/05/16 00:00 Intake Total 1320 ml Output Total 625 ml Balance 695 ml Capillary Refill : Less Than 3 SecondsLess Than 3 Seconds Constitutional: No appears stated age, No AAO x 3, No apparent distress, No PERRL, No well-developed, No well-nourished, No other HEENT: No PERRL, No normal ENT inspection, No TMs normal, No pharynx normal, No scleral icterus (R), No scleral icterus (L), No pale conjunctivae (R), No pale conjunctivae (L), No photophobia, No TM abnormal (R), No TM abnormal (L), No pharyngeal erythema, No tonsillar exudate, No other, No discharge, No EOMI, No hearing is well preserved, No hard of hearing, No oral hygience is good, No ulceration, No xanthelasmas are seen Neck: No non-tender, No full range of motion, No supple, No normal inspection, No carotid bruit, No limited range of motion, No lymphadenopathy (R), No lymphadenopathy (L), No tender lateral, No tender midline, No thyromegaly, No other, No carotid pulses are 2 + bilaterally, No with good upstrokes Respiratory: No accessory muscle use, No respiratory distress, No chest tender , No chest expansion is symmetric, No chest is bilaterally symmetric, No lungs clear to percussion, No lungs clear to auscultation, No crackles, No rhonchi, No rales, No stridor, No wheezing, No pleural rub, No other Cardiovascular: No regular rate-rhythm, No irregularly irregular, No extra beats, No parasternal heave is noted, No JVD, No edema, No bradycardia, No tachycardia, No point of maximal impulse, No cardiac thrills are palpable, No S1 and S2, No gallop/S3, No gallop/S4, No diastolic murmur, No systolic murmur, No friction rub, No click, No other Gastrointestinal: No tender, No soft, No round, No distended, No pulsatile mass , No organomegaly, No guarding, No rebound, No tenderness, No hernia, No mass, No audible bowel sounds, No abnormal bowel sounds, No abdominal bruits, No spleenomegaly, No other Rectal: deferred Extremities: No normal range of motion, No non-tender, No normal inspection, No pedal edema, No calf tenderness, No normal capillary refill, No pelvis stable , No calf tenderness, No inflammation, No pedal edema, No slow capillary refill , No swelling, No other, No abrasion, No clubbing, No cyanosis, No ecchymosis, No laceration, No no lower extremity edema bilateral, No significant edema, No tenderness, No wound Neurologic/Psychiatric: No search strategist II-XII nml as tested, No no motor/sensory deficits, No alert, No normal mood/affect, No oriented x 3, No abnormal cerebellar tests, No abnormal search strategist II-XII, No abnormal gait, No aphasia, No EOM palsy, No facial droop, No motor weakness, No sensory deficit, No depressed affect, No disoriented x 3, No other, No grossly intact, No power is 5/5 both on sides Skin: No normal color, No warm/dry, No cyanosis, No cool, No diaphoresis, No damp, No ecchymosis, No jaundice, No mottled, No pallor, No rash, No tattoos/ piercings, No ulcerations, No rash on exposed areas, No ulcerations on exposed areas, No other Lymphatic: no adenopathy Data Review Labs Laboratory Tests 12/05/16 05:05: White Blood Count 9.4, Red Blood Count 2.57L, Hemoglobin 8.7#L, Hematocrit 26L, Mean Corpuscular Volume 99, Mean Corpuscular Hemoglobin 34, Mean Corpuscular Hemoglobin Concent 34, Red Cell Distribution Width 12.6, Platelet Count 226, Mean Platelet Volume 9.1, Neutrophils (%) (Auto) 77H, Lymphocytes (%) (Auto) 11L , Monocytes (%) (Auto) 11, Eosinophils (%) (Auto) 1, Basophils (%) (Auto) 0, Neutrophils # (Auto) 7.2, Lymphocytes # (Auto) 1.0, Monocytes # (Auto) 1.0, Eosinophils # (Auto) 0.1, Basophils # (Auto) 0.0, Sodium Level 132L, Potassium Level 3.8, Chloride Level 101, Carbon Dioxide Level 19L, Anion Gap 12, Blood Urea Nitrogen 7, Creatinine 0.58L, Estimat Glomerular Filtration Rate > 60, BUN/ Creatinine Ratio 12, Glucose Level 107H, Calcium Level 7.9L, Total Bilirubin 0.4 , Aspartate Amino Transf (AST/SGOT) 21, Alanine Aminotransferase (ALT/SGPT) 18, Alkaline Phosphatase 60, Total Protein 5.1L, Albumin 3.1L Microbiology 12/03/16 Gram Stain - Final, Resulted 12/03/16 Wound Culture - Preliminary, Resulted Staph, Coag Neg (Brick Tosser) ECG Impression ECG Initial ECG Rhythm: Normal Sinus A/P-Cardiology Assessment/Admission Diagnosis Postop hip surgery, Coronary artery disease, status post CABG, Active smoking Plan Continue outpatient medications for coronary artery disease which include aspirin, Plavix, statin, FIDELINA inhibitor. Smoking cessation was recommended. No congestive heart failure on examination. The patient will follow-up with his outpatient medart operator after discharge. Cardiology will sign off for now. However please let us know if further need arises. Thank you for your consultation. Please call me if you have any questions. Shruthi Rice MD, FACP, FACC, FSCAI, FHRS, CCDS Interventional Cardiology Cardiac Electrophysiology Vascular Medicine and Endovascular Interventions Clinical Quality Measures DVT/VTE Risk/Contraindication: Risk Factor Score Per Nursin RFS Level Per Nursing on Admit: 4+=Very High Marti RICE MD Dec 05, 2016 11:03 am
[2016-12-05 12:00] VITALS: BP 103/67
--- NOTE | 2016-12-05 12:17 | Progress Note-Hospitalist ---
Progress Note HPI/CC on Admission CC: ACUTE RIGHT INTERTROCHANTERIC FEMUR FRACTURE POD # 0 HPI: This is a 66-year-old white male that who continues to smoke with a previous bypass surgery [place] [address] Link at [facility] in [place] the presents following a fall and sustaining a right hip fracture. He just returned from surgery and had an uncomplicated repair by Dr. Bass. The family is aware of the plan that he will need physical therapy and it appears that they will be open to returning home as soon as possible due to family support that is provided. I did initiate incentive spirometer and smoking cessation and will monitor blood pressure since it was elevated I did give Norvasc 5 mg now in addition reconciled and continued all home medications include lisinopril. Progress Notes/Assess & Plan Date Seen 12/05/16 Time Seen by Provider: 10:00 Admission Dx/Process Assessment: s/p UNCOMPLICATED RIGHT INTERTROCHANTERIC FEMUR FRACTURE POD # [address] Syed Smoker HTN COPD CABG previous CABG Debilitated status Diagonsis/Assessment & Plan Patient doing much better and up in a chair since that helps his back I reviewed home medications again and labs Receiving incentive spirometer and breathing treatments that are helping Catheter still in place No BM yet no fever, vital signs stable, much improved blood pressure Pleasant, oriented 3 but recall is deficient at bedside Regular rate and rhythm, clear to auscultation bilaterally but distant in the bases No edema Laboratory Tests 12/05/16 05:05 Assessment: s/p UNCOMPLICATED RIGHT INTERTROCHANTERIC FEMUR FRACTURE POD # [address] Syed Smoker HTN COPD w/wheezes on exam prompting Nebs and IS CABG previous CABG Debilitated status Hyponatremia Plan: Monitor labs especially hemoglobin and sodium level PT/OT Bowel regimen orders Incentive spirometer Monitor labs closely due to current smoking Smoking cessation counseled DVT Px JUAN RAY DO Dec 05, 2016 12:17
[2016-12-05] MEDS: LACTULOSE SYRUP 10GM/15ML (ENULOSE) 30ML UDC PO SCH ×2 (13:00→20:02)
--- NOTE | 2016-12-05 13:10 | Progress Note-Standard ---
Standard Progress Note Progress Notes/Assess & Plan Date Seen by Provider: Dec 05, 2016 Time Seen by Provider: 13:08 Progress/Assessment & Plan His is postop day 1 trochanteric femoral nail right hip Slow to progress in PT. Pain controlled Exam-- Incisions intact and healing NV intact Diagnosis: Right intertrochanteric femur fracture Plan: Continue PT. Consider rehab or nursing home Final Diagnosis Right intertrochanteric femoral fracture YOCASTA GOMEZ MD Dec 05, 2016 13:10
--- NOTE | 2016-12-05 15:50 | Anesthesia-General Post-Op ---
General Patient Condition Mental Status/LOC: Same as Preop Cardiovascular: Satisfactory Nausea/Vomiting: Absent Respiratory: Satisfactory Pain: Controlled Complications: Absent Post Op Complications Complications None Follow Up Care/Instructions Patient Instructions None needed. Anesthesia/Patient Condition Patient Condition Patient is doing well, no complaints, stable vital signs, no apparent adverse anesthesia problems. No complications reported per nursing. JOSE F ORNELAS CRNA Dec 05, 2016 15:50
[2016-12-05 15:51] VITALS: BP 109/65
[2016-12-05 19:25] VITALS: BP 128/70
[2016-12-05] MEDS: SENNA W/DOCUSATE (SENOKOT S) TABLET PO SCH (20:02)
[2016-12-05] MEDS: SIMvastatin 20 MG (ZOCOR) TAB PO SCH (20:02)
[2016-12-06] VITALS (9 sets, daily range): BP systolic 108–168; BP diastolic 64–92
[2016-12-06] MEDS: RT-ALBUTEROL/IPRATROPIUM 3 ML (DUONEB) VIAL INH SCH ×5 (02:28→23:01)
[2016-12-06] MEDS: NS IV 1000 ML 1,000 ML IV SCH ×3 (04:39→21:24)
[2016-12-06] MEDS: CATHETER FLUSH 10 ML SYR IV SCH ×3 (04:55→21:25)
[2016-12-06 05:01] LABS: BASOPHILS % (AUTO) 1 % (0-10); EOSINOPHILS # (AUTO) 0.1 10^3/uL (0.0-0.3); EOSINOPHILS % (AUTO) 1 % (0-10); LYMPHOCYTES # (AUTO) 1.6 X 10^3 (1.0-4.0); LYMPHOCYTES % (AUTO) 24 % (12-44); MEAN CORPUSCULAR HEMOGLOBIN 34 PG (25-34); MEAN CORPUSCULAR HGB CONC 34 G/DL (32-36); MEAN CORPUSCULAR VOLUME 100 FL (80-99); MEAN PLATELET VOLUME 9.4 FL (7.4-10.4); MONOCYTES # (AUTO) 0.8 X 10^3 (0.0-1.0); MONOCYTES % (AUTO) 12 % (0-12); NEUTROPHILS % (AUTO) 62 % (42-75); PLATELET COUNT 184 10^3/uL (130-400); RED BLOOD COUNT 1.87 10^6/uL (4.35-5.85); RED CELL DISTRIBUTION WIDTH 12.4 % (10.0-14.5); WHITE BLOOD COUNT 6.4 10^3/uL (4.3-11.0)
[2016-12-06 05:30] LABS: ALANINE AMINOTRANSFERASE 15 U/L (0-55); ALBUMIN 2.7 GM/DL (3.2-4.5); ANION GAP 8 MMOL/L (5-14); ASPARTATE AMINO TRANSFERASE 25 U/L (5-34); BILIRUBIN,TOTAL 0.4 MG/DL (0.1-1.0); BLOOD UREA NITROGEN 5 MG/DL (7-18); BUN/CREATININE RATIO 10; CALCIUM 7.5 MG/DL (8.5-10.1); CARBON DIOXIDE 21 MMOL/L (21-32); CHLORIDE 102 MMOL/L (98-107); GFR ESTIMATED > 60; GLUCOSE 102 MG/DL (70-105); POTASSIUM 3.4 MMOL/L (3.6-5.0); SODIUM 131 MMOL/L (135-145); TOTAL PROTEIN 4.6 GM/DL (6.4-8.2)
[2016-12-06] MEDS: FLUTICASONE NASAL SPRAY (FLONASE) 16 GM BTL NS SCH (08:23)
[2016-12-06] MEDS: METOCLOPRAMIDE 10 MG (REGLAN) TAB PO SCH ×2 (08:23→21:24)
[2016-12-06] MEDS: lisINopril 10 MG (PRINIVIL) TAB PO SCH (08:23)
[2016-12-06] MEDS: SENNA W/DOCUSATE (SENOKOT S) TABLET PO SCH ×2 (08:23→21:20)
[2016-12-06] MEDS: CYCLOBENZAPRINE 10 MG (FLEXERIL) TAB PO SCH ×3 (08:23→21:20)
[2016-12-06] MEDS: LACTULOSE SYRUP 10GM/15ML (ENULOSE) 30ML UDC PO SCH ×2 (08:23→21:20)
[2016-12-06] MEDS: amLODIPine 5 MG (NORVASC) TAB PO SCH (08:23)
--- NOTE | 2016-12-06 09:53 | Progress Note-Hospitalist ---
Progress Note HPI/CC on Admission CC: ACUTE RIGHT INTERTROCHANTERIC FEMUR FRACTURE POD # 0 HPI: This is a 66-year-old white male that who continues to smoke with a previous bypass surgery in [address] Link at [facility] in [place] the presents following a fall and sustaining a right hip fracture. He just returned from surgery and had an uncomplicated repair by Dr. Bass. The family is aware of the plan that he will need physical therapy and it appears that they will be open to returning home as soon as possible due to family support that is provided. I did initiate incentive spirometer and smoking cessation and will monitor blood pressure since it was elevated I did give Norvasc 5 mg now in addition reconciled and continued all home medications include lisinopril. Progress Notes/Assess & Plan Date Seen 12/06/16 Time Seen by Provider: 09:15 Admission Dx/Process Assessment: s/p UNCOMPLICATED RIGHT INTERTROCHANTERIC FEMUR FRACTURE POD # [address] Syed Smoker HTN COPD CABG previous CABG Debilitated status Diagonsis/Assessment & Plan Patient reports weakness and likely that is due to the severe anemia and I ordered 2 units of packed red blood cells due to hemoglobin of 6.3 Denies any pain issues Needs inpatient rehabilitation so will pursue that Fluid restriction helping sodium level 131 today no fever, vital signs stable, in bed, fatigued Pleasant, oriented 3 but recall is deficient Regular rate and rhythm, coarse to auscultation bilaterally No edema Laboratory Tests 12/06/16 04:10 Assessment: s/p UNCOMPLICATED RIGHT INTERTROCHANTERIC FEMUR FRACTURE POD # [address] Syed Acute blood loss receiving 2 units of blood Smoker HTN COPD w/wheezes on exam prompting Nebs and IS CABG previous CABG Debilitated status Hyponatremia improved on restriction Plan: Monitor labs especially hemoglobin and sodium level PT/OT Bowel regimen orders, adding SSE today Incentive spirometer Monitor labs closely due to current smoking Smoking cessation counseled DVT Px IRU? JUAN RAY DO Dec 06, 2016 09:53
[2016-12-06] MEDS: HYDROcodone/APAP 10 MG/325 MG (LORTAB) TAB PO PRN ×2 (10:33→17:52)
[2016-12-06] MEDS ORDERED: FLUT16SP22 NS (10:44)
[2016-12-06] MEDS ORDERED: HYDR-3820 PO (10:44)
[2016-12-06] MEDS ORDERED: LANS30CA PO (10:44)
--- NOTE | 2016-12-06 10:54 | Physical Therapy Daily Note ---
PT Daily Note-Current Subjective Patient receiving 1st unit of 2 of PRBC and declined OOB activity. Agrees to exercises. Pain Numeric Pain Scale: 5-Moderate Pain Location: Right Location Body Site: Hip Pain Description: Acute Mental Status Patient Orientation: Normal For Age Attachments: IV Transfers Functional [place] Measure 0=Not Assessed/NA 4=Minimal Assistance 1=Total Assistance 5=Supervision or Setup 2=Maximal Assistance 6=Modified [place] 3=Moderate Assistance 7=Complete IndependenceIRFPAI Quality Coding Scale 6 Independent with activity with or without an assistive device 5 Patient requires set up or clean up by helper. Patient completes activity by themselves 4 Supervision or touching assist (CGA). [place] provide cues , steadying assist 3 The helper provides less than half the effort to complete the activity 2 The helper provides more than half the effort to complete the activity 1 Dependent. The helper does all the effort to complete an activity 7 Patient refused to complete or attempt activity 9 The patient did not perform the activity before the current illness or injury 88 Not attempted due to Medical conditions or safety concerns Exercises Supine Ex: Ankle pumps, Quad Set, Heel Slides, Straight leg raise Supine Reps: 15 (AAROM right LE ) Assessment Patient tolerated exercise and understands the importance of increasing activity to improve current LOF and to improve mobility. PT Concrete Block Layer Goals Concrete Block Layer Goals PT Chcf Goals Time Frame: Dec 12, 2016 Transfers (B,C,W/C) (FIM): 3 Gait (FIM): 1 Distance: 10' Gait Level of Assist: 3 Gait Assistive Device: FWW PT Plan Treatment/Plan Treatment Plan: Continue Plan of Care Treatment Plan: Bed Mobility, Education, Functional Activity Gonzalez, Functional Strength, Gait, Safety, Therapeutic Exercise, Transfers Treatment Duration: Dec 12, 2016 Frequency: Twice Daily (only once daily on the weekends) Estimated Hrs Per Day: .25 hour per day (15-30 min) Patient and/or Family Agrees t: Yes Time/GCodes Time In: 1013 Time Out: 1023 Total Billed Treatment Time: 10 Total Billed Treatment 1 visit EX 10 min GINNA BRIONES PT Dec 06, 2016 10:54
--- NOTE | 2016-12-06 11:31 | RADIOLOGY REPORT ---
Patient name: MALACHI BRUNO ACC: [id number] : 1950 Age:66 years Room: Class: Emergency Gender: Male ORD DR: CARLOS DR: [place] LAUR[place] MD Procedure: PELVIS W RIGHT HIP, 2-3 VIEWS ORD Date: 12/03/2016 7:03 PM Reason for Study: FALL CORRECTED Final Report EXAM: PELVIS W RIGHT HIP, 2-3 VIEWS INDICATION: Fall. Hip pain. COMPARISON: None. FINDINGS: Minimally displaced right intertrochanteric hip fracture. No other fractures. Coarse arterial calcifications. Surgical clip in the right groin. Moderate degenerative changes in the lower lumbar spine. IMPRESSION: Minimally displaced right intertrochanteric hip fracture. Dictated by: Created by: Daniel Park on 12/03/2016 7:06 PM Transcribed by: TARI 12/03/2016 7:12 PM DAIMON
--- NOTE | 2016-12-06 13:35 | Occupational Therapy Eval ---
OT Evaluation-General/PLF Medical Diagnosis Admission Date Dec 03, 2016 at 19:47 Medical Diagnosis: right intertrochanteric femur fracture Onset Date: Dec 03, 2016 Therapy Diagnosis Therapy Diagnosis: decr self care, weakness, decr funct mobility Height/Weight Height (Feet): 5 Height (Inches): 9.00 Weight (Pounds): 127 Weight (Ounces): 2.3 Precautions Precautions/Isolations: Fall Prevention, Standard Precautions Safety Interventions: None Weight Bear Status Weight Bearing Restriction: Weight Bearing/Tolerated Location Restriction: R LE Referral Physician: Kristopher Bass MD Referral Reason: Evaluation/Treatment Medical History Pertinent Medical History: Arthritis, CAD, COPD, GERD, HTN, Smoking Additional Medical History CABG x 3 with stent. Scoliosis. Lower back problems. hard of hearing Current History Fell at home, landing on R side. R hip fx with IM nail on 12-04-16. WBAT Social History Home: Single Level Current Living Status: Alone Entry Into Home: Stairs With Railing Steps Into Home: 5 ADL-Prior Level of Function Pt reported that he had been able to manage all of his basic self care needs prior to admission. He still drove. Lives alone and has been retired for several years Occupation: retired Drive Self: Yes OT Current Status Subjective Pt seen in room, up on BSC, agreeable to OT. Pt reported he just got some odonnell medicine Appearance Alert, cooperative Mental Status/Objective Attachments: IV Current Glasses/Contacts: Yes Hearing Aids: No Dentures/Partials: No Hand Dominance: Right Upper Extremity ROM Grossly WFL bilat Upper Extremity Strength Grossly 4/5 bilat ADL-Treatment Functional [place] Measure 0=Not Assessed/NA 4=Minimal Assistance 1=Total Assistance 5=Supervision or Setup 2=Maximal Assistance 6=Modified [place] 3=Moderate Assistance 7=Complete IndependenceIRFPAI Quality Coding Scale 6 Independent with activity with or without an assistive device 5 Patient requires set up or clean up by helper. Patient completes activity by themselves 4 Supervision or touching assist (CGA). [place] provide cues , steadying assist 3 The helper provides less than half the effort to complete the activity 2 The helper provides more than half the effort to complete the activity 1 Dependent. The helper does all the effort to complete an activity 7 Patient refused to complete or attempt activity 9 The patient did not perform the activity before the current illness or injury 88 Not attempted due to Medical conditions or safety concerns Toileting (FIM): 1 (Two people required to manage clothing and hygiene. Pt retropulsive when standing from BS) Toilet/Commode Transfer (FIM): 1 (Two people to transfer him back to bed after toileting. Retropulsive from [facility], FWW) Education OT Patient Education: Modified ADL techniques, Purpose of tx/functional activities, Rehab process, Transfer techniques Teaching Recipient: Patient Response to Teaching: Reinforcement Needed OT Hypo Splasher Goals Hypo Splasher Goals Time Frame: Dec 10, 2016 Eating (FIM): 6 Grooming(FIM): 5 Upper Body Dressing(FIM): 5 Lower Body Dressing(FIM): 3 Toileting(FIM): 3 Toilet/Commode Transfer(FIM): 3 Additional Goals: 2-Verbalize Understanding, 3-ImproveStrength/Gonzalez 1=Demonstrate adherence to instructed precautions during ADL tasks. 2=Patient will verbalize/demonstrate understanding of assistive devices/ modifications for ADL. 3=Patient will improve strength/tolerance for activity to enable patient to perform ADL's. OT Education/Plan Problem List/Assessment Assessment: Decreased Safety Aware, Decreased UE Strength, Dependent Transfers , Impaired Funct Balance, Impaired Self-Care Skills Pt would benefit from skilled OT to increase his independence with basic self care to allow him to safely return to his home to live alone and to decrease caregiver burden. Discharge Recommendations Plan/Recommendations: Continue POC Treatment Plan/Plan of Care Treatment,Training & Education: Yes Patient would benefit from OT for education, treatment and training to promote independence in ADL's, mobility, safety and/or upper extremity function for ADL' s. Plan of Care: ADL Retraining, Functional Mobility, UE Funct Exercise/Act, UE Neuromus Re-Ed/Coord Treatment Duration: Dec 10, 2016 Frequency: Daily Estimated Hrs Per Day: .5 hour per day Agreement: Yes Rehab Potential: Fair Time/GCodes Start Time: 11:30 Stop Time: 11:50 Total Time Billed (hr/min): 20 Billed Treatment Time visit, 20 minutes evaluation moderate intensity JOSH DELONG OT Dec 06, 2016 13:35
--- NOTE | 2016-12-06 14:09 | Progress Note (SOAP) ---
Subjective Date Seen by Provider: Dec 06, 2016 Time Seen by Provider: 07:35 Subjective/Events-last exam Dwight is laying in bed talking on the phone when i entered the room. After finished with his conversation he reports he has right leg weakness, this was present to some extent even before surgery and is more noticeable now that he has post operative pain. Originally he was planning to go home but he has little confidence with ambulation and has fears of falling. We discussed rehab placement. Review of Systems General: No Chills, No Night Sweats HEENT: No Head Aches Cardiovascular: No: Chest Pain, Palpitations Gastrointestinal: Constipation, No: Nausea, Vomiting Musculoskeletal: leg pain Neurological: Weakness, No: Change in speech, Confusion, Incoordination, Numbness Objective Exam Vital Signs Date Time Temp Pulse Resp B/P (MAP) Pulse Ox O2 Delivery O2 Flow Rate FiO2 12/06/16 13:00 99.8 109 132/91 95 12/06/16 10:57 95 Room Air 12/06/16 10:45 99.3 94 155/88 12/06/16 10:30 96 12/06/16 10:30 99.5 96 168/92 12/06/16 10:25 99.5 96 168/92 12/06/16 09:00 93 Nasal Cannula 3.00 12/06/16 08:31 99.4 106 138/92 12/06/16 08:16 99.3 109 145/79 12/06/16 08:00 99.3 109 20 145/79 93 Room Air 12/06/16 07:06 92 Room Air 12/06/16 02:28 92 Room Air 12/06/16 00:00 98.5 103 18 108/64 93 Room Air 12/05/16 22:12 92 Room Air 12/05/16 20:06 Room Air 12/05/16 19:25 99.6 109 20 128/70 96 Room Air 12/05/16 18:53 94 Room Air 12/05/16 15:51 99.1 106 20 109/65 95 Room Air 12/05/16 15:27 92 Room Air I & O 12/06/16 07:00 Intake Total 4860 ml Output Total 1775 ml Balance 3085 ml Capillary Refill : Less Than 3 SecondsLess Than 3 Seconds General Appearance: No Apparent Distress Respiratory: No Accessory Muscle Use, No Respiratory Distress Cardiovascular: No Edema, Normal Peripheral Pulses Peripheral Pulses: 2+ Dorsalis Pedis (R), 2+ Left Dors-Pedis (L) Gastrointestinal: non tender, soft Extremity: Non Tender, No Calf Tenderness, Other (rle pain) Neurologic/Psychiatric: Alert, Oriented x3, Motor Weakness (right illio/psoas weakness) Results Lab Laboratory Tests 12/06/16 04:10: White Blood Count 6.4, Red Blood Count 1.87L, Hemoglobin 6.3#*L, Hematocrit 19*L , Mean Corpuscular Volume 100H, Mean Corpuscular Hemoglobin 34, Mean Corpuscular Hemoglobin Concent 34, Red Cell Distribution Width 12.4, Platelet Count 184, Mean Platelet Volume 9.4, Neutrophils (%) (Auto) 62, Lymphocytes (%) (Auto) 24, Monocytes (%) (Auto) 12, Eosinophils (%) (Auto) 1, Basophils (%) ( Auto) 1, Neutrophils # (Auto) 4.0, Lymphocytes # (Auto) 1.6, Monocytes # (Auto) 0.8, Eosinophils # (Auto) 0.1, Basophils # (Auto) 0.0, Sodium Level 131L, Potassium Level 3.4L, Chloride Level 102, Carbon Dioxide Level 21, Anion Gap 8, Blood Urea Nitrogen 5L, Creatinine 0.50L, Estimat Glomerular Filtration Rate > 60, BUN/Creatinine Ratio 10, Glucose Level 102, Calcium Level 7.5L, Total Bilirubin 0.4, Aspartate Amino Transf (AST/SGOT) 25, Alanine Aminotransferase ( ALT/SGPT) 15, Alkaline Phosphatase 47, Total Protein 4.6L, Albumin 2.7L 12/06/16 13:06: Lab Scanned Report Transfusion Reaction Form Microbiology 12/03/16 MRSA Screen - Final, Complete MRSA not isolated 12/03/16 Gram Stain - Final, Resulted 12/03/16 Wound Culture - Preliminary, Resulted Staph, Coag Neg (Bar Roller) Assessment/Plan Assessment/Plan Assess & Plan/Chief Complaint Assessment; s/p right tfn Plan; work with PT pain control dvt prophylaxis consider rehab placement Clinical Quality Measures DVT/VTE Risk/Contraindication: Risk Factor Score Per Nursin RFS Level Per Nursing on Admit: 4+=Very High MOY JORDAN Dec 06, 2016 14:09
--- NOTE | 2016-12-06 16:26 | Physical Therapy Daily Note ---
PT Daily Note-Current Subjective Patient agrees to PT, however, c/o 10/10 right LE pain with meds issued. Pain Numeric Pain Scale: 10-Worst Possible Pain Location: Right Location Body Site: Hip Pain Description: Acute Mental Status Patient Orientation: Person, Time, Situation Attachments: IV Transfers Functional [place] Measure 0=Not Assessed/NA 4=Minimal Assistance 1=Total Assistance 5=Supervision or Setup 2=Maximal Assistance 6=Modified [place] 3=Moderate Assistance 7=Complete IndependenceIRFPAI Quality Coding Scale 6 Independent with activity with or without an assistive device 5 Patient requires set up or clean up by helper. Patient completes activity by themselves 4 Supervision or touching assist (CGA). [place] provide cues , steadying assist 3 The helper provides less than half the effort to complete the activity 2 The helper provides more than half the effort to complete the activity 1 Dependent. The helper does all the effort to complete an activity 7 Patient refused to complete or attempt activity 9 The patient did not perform the activity before the current illness or injury 88 Not attempted due to Medical conditions or safety concerns Transfers (B, C, W/C) (FIM): 2 Scootin Rollin Supine to/from Sit: 2 Sit to/from Stand: 2 assist due to pain Weight Bearing Weight Bearing Restriction: Weight Bearing/Tolerated Location Restriction: R LE Gait Training Gait (FIM): 1 Distance (FIM): 1=up to 49 ft Distance: 3 step x 4 Gait Level of Assist: 2 Gait Persons Needed: 1 Gait Assistive Device: FWW trunk flexed posture/extended bilateral UE's and flexed bilateral knees Exercises Supine Ex: Ankle pumps, Quad Set, Heel Slides Supine Reps: 15 (AAROM right LE) Seated Therapy Exercises: Long arc quads Seated Reps: 15 (AAROM right LE) Assessment Patient will impulsively sit during gait training with FWW at EOB. Education with patient and family on safety concerns with this behavior. Patient is currently unable to tolerate intense PT. PT Retirement Goals Gear Keeper Goals PT Retirement Goals Time Frame: Dec 12, 2016 Transfers (B,C,W/C) (FIM): 3 Gait (FIM): 1 Distance: 10' Gait Level of Assist: 3 Gait Assistive Device: FWW PT Plan Treatment/Plan Treatment Plan: Continue Plan of Care Treatment Plan: Bed Mobility, Education, Functional Activity Gonzalez, Functional Strength, Gait, Safety, Therapeutic Exercise, Transfers Treatment Duration: Dec 12, 2016 Frequency: Twice Daily (only once daily on the weekends) Estimated Hrs Per Day: .25 hour per day (15-30 min) Patient and/or Family Agrees t: Yes Time/GCodes Time In: 1505 Time Out: 1330 Total Billed Treatment Time: 25 Total Billed Treatment 1 visit FA 15 min EX 10 min GINNA BRIONES PT Dec 06, 2016 16:26
[2016-12-06] MEDS: SIMvastatin 20 MG (ZOCOR) TAB PO SCH (21:20)
[2016-12-07 00:10] VITALS: BP 109/64
[2016-12-07] MEDS: RT-ALBUTEROL/IPRATROPIUM 3 ML (DUONEB) VIAL INH SCH ×3 (02:47→10:01)
[2016-12-07 05:06] LABS: BASOPHILS % (AUTO) 0 % (0-10); EOSINOPHILS # (AUTO) 0.1 10^3/uL (0.0-0.3); EOSINOPHILS % (AUTO) 1 % (0-10); LYMPHOCYTES # (AUTO) 0.9 X 10^3 (1.0-4.0); LYMPHOCYTES % (AUTO) 13 % (12-44); MEAN CORPUSCULAR HEMOGLOBIN 32 PG (25-34); MEAN CORPUSCULAR HGB CONC 35 G/DL (32-36); MEAN CORPUSCULAR VOLUME 94 FL (80-99); MEAN PLATELET VOLUME 9.4 FL (7.4-10.4); MONOCYTES # (AUTO) 0.8 X 10^3 (0.0-1.0); MONOCYTES % (AUTO) 11 % (0-12); NEUTROPHILS # (AUTO) 5.4 X 10^3 (1.8-7.8); NEUTROPHILS % (AUTO) 75 % (42-75); PLATELET COUNT 207 10^3/uL (130-400); RED BLOOD COUNT 3.02 10^6/uL (4.35-5.85); RED CELL DISTRIBUTION WIDTH 14.7 % (10.0-14.5); WHITE BLOOD COUNT 7.3 10^3/uL (4.3-11.0)
[2016-12-07] MEDS: CATHETER FLUSH 10 ML SYR IV SCH (05:27)
[2016-12-07] MEDS: NS IV 1000 ML 1,000 ML IV SCH (05:32)
[2016-12-07] MEDS: HYDROcodone/APAP 10 MG/325 MG (LORTAB) TAB PO PRN ×2 (05:33→10:02)
[2016-12-07 05:34] LABS: ALANINE AMINOTRANSFERASE 18 U/L (0-55); ANION GAP 12 MMOL/L (5-14); ASPARTATE AMINO TRANSFERASE 28 U/L (5-34); BILIRUBIN,TOTAL 0.8 MG/DL (0.1-1.0); BLOOD UREA NITROGEN 2 MG/DL (7-18); BUN/CREATININE RATIO 4; CALCIUM 7.9 MG/DL (8.5-10.1); CARBON DIOXIDE 21 MMOL/L (21-32); CHLORIDE 97 MMOL/L (98-107); CREATININE SERUM 0.49 MG/DL (0.60-1.30); GFR ESTIMATED > 60; GLUCOSE 96 MG/DL (70-105); POTASSIUM 2.7 MMOL/L (3.6-5.0); SODIUM 130 MMOL/L (135-145); TOTAL PROTEIN 5.3 GM/DL (6.4-8.2)
[2016-12-07 07:42] VITALS: BP 126/71
[2016-12-07] MEDS: amLODIPine 5 MG (NORVASC) TAB PO SCH (08:41)
[2016-12-07] MEDS: METOCLOPRAMIDE 10 MG (REGLAN) TAB PO SCH (08:41)
[2016-12-07] MEDS: lisINopril 10 MG (PRINIVIL) TAB PO SCH (08:42)
[2016-12-07] MEDS: CYCLOBENZAPRINE 10 MG (FLEXERIL) TAB PO SCH (08:42)
[2016-12-07] MEDS: LACTULOSE SYRUP 10GM/15ML (ENULOSE) 30ML UDC PO SCH (08:42)
[2016-12-07] MEDS: FLUTICASONE NASAL SPRAY (FLONASE) 16 GM BTL NS SCH (08:43)
[2016-12-07] MEDS: SENNA W/DOCUSATE (SENOKOT S) TABLET PO SCH (08:43)
[2016-12-07] MEDS ORDERED: KCL 10 MEQ TAB (MICRO K) PO SCH (09:15)
[2016-12-07] MEDS ORDERED: POTASSIUM CL 10MEQ/50ML IVPB 50 ML IV SCH (09:15)
[2016-12-07] MEDS ORDERED: MAGNESIUM 1 GM/100 ML IVPB 100 ML IV NR (09:15)
--- NOTE | 2016-12-07 10:21 | Discharge Summary-Hospitalist ---
Diagnosis/Chief Complaint Date of Admission Dec 03, 2016 at 19:47 Date of Discharge Admission Diagnosis Assessment: s/p UNCOMPLICATED RIGHT INTERTROCHANTERIC FEMUR FRACTURE POD # [address] Syed Smoker HTN COPD CABG previous CABG Debilitated status Discharge Diagnosis Assessment: s/p UNCOMPLICATED RIGHT INTERTROCHANTERIC FEMUR FRACTURE POD # [address] Syed Acute blood loss received 2 units of blood Acute hypokalemia Smoker HTN COPD w/wheezes on exam prompting Nebs and IS now improved CABG previous CABG Debilitated status Hyponatremia improved on restriction Slow recovery needs NH or IRU Reason Hospital Visit/Course CC: ACUTE RIGHT INTERTROCHANTERIC FEMUR FRACTURE POD # 0 HPI: This is a 66-year-old white male that who continues to smoke with a previous bypass surgery [place] [address] Link at [facility] in [place] the presents following a fall and sustaining a right hip fracture. He just returned from surgery and had an uncomplicated repair by Dr. Bass. The family is aware of the plan that he will need physical therapy and it appears that they will be open to returning home as soon as possible due to family support that is provided. I did initiate incentive spirometer and smoking cessation and will monitor blood pressure since it was elevated I did give Norvasc 5 mg now in addition reconciled and continued all home medications include lisinopril. note from 12/07/16: Patient doing ok and had BM x 2 No change in pain and he is having slow recovery that ultimately may require NHP Checked meds and labs Potassium supplemented AFVSS, Pleasant, O x 3 RRR, CTAB improved rales noted on bases No edema Hospital course: patient had an uncomplicated hospital course. Pt had an uncomplicated hip fracture replacement and BP was controlled with additional meds. 2 units of blood were given with good results due to hgb 6.3 that increased to 9.8. Low potassium was supplemented IV and PO and Nebs were tolerated with good results of wheezing resolution. Slow recovery may ultimately fail at IRU and need NHP. Discharge Summary Discharge Physical Examination Allergies: Coded Allergies: NKANo Known Allergies (Unverified Allergy, Mild, 02/08/09) Vitals & I&Os Vital Signs Date Time Temp Pulse Resp B/P (MAP) Pulse Ox O2 Delivery O2 Flow Rate FiO2 12/07/16 10:10 93 Room Air 12/07/16 00:10 98.5 99 18 109/64 12/06/16 21:00 3.00 Hospital Course Labs (last 24 hrs) Laboratory Tests 12/06/16 13:06: Lab Scanned Report Transfusion Reaction Form 12/07/16 03:53: White Blood Count 7.3, Red Blood Count 3.02L, Hemoglobin 9.8#L, Hematocrit 28L, Mean Corpuscular Volume 94, Mean Corpuscular Hemoglobin 32, Mean Corpuscular Hemoglobin Concent 35, Red Cell Distribution Width 14.7H, Platelet Count 207, Mean Platelet Volume 9.4, Neutrophils (%) (Auto) 75, Lymphocytes (%) (Auto) 13, Monocytes (%) (Auto) 11, Eosinophils (%) (Auto) 1, Basophils (%) (Auto) 0, Neutrophils # (Auto) 5.4, Lymphocytes # (Auto) 0.9L, Monocytes # (Auto) 0.8, Eosinophils # (Auto) 0.1, Basophils # (Auto) 0.0, Sodium Level 130L, Potassium Level 2.7L, Chloride Level 97L, Carbon Dioxide Level 21, Anion Gap 12, Blood Urea Nitrogen 2L, Creatinine 0.49L, Estimat Glomerular Filtration Rate > 60, BUN /Creatinine Ratio 4, Glucose Level 96, Calcium Level 7.9L, Total Bilirubin 0.8, Aspartate Amino Transf (AST/SGOT) 28, Alanine Aminotransferase (ALT/SGPT) 18, Alkaline Phosphatase 56, Total Protein 5.3L, Albumin 3.0L Microbiology 12/03/16 MRSA Screen - Final, Complete MRSA not isolated 12/03/16 Gram Stain - Final, Resulted 12/03/16 Wound Culture - Preliminary, Resulted Staph, Coag Neg (Business Analytics Specialist) Pending Labs Laboratory Tests 12/07/16 03:53: White Blood Count 7.3, Red Blood Count 3.02, Hemoglobin 9.8, Hematocrit 28, Mean Corpuscular Volume 94, Mean Corpuscular Hemoglobin 32, Mean Corpuscular Hemoglobin Concent 35, Red Cell Distribution Width 14.7, Platelet Count 207, Mean Platelet Volume 9.4, Neutrophils (%) (Auto) 75, Lymphocytes (%) (Auto) 13, Monocytes (%) (Auto) 11, Eosinophils (%) (Auto) 1, Basophils (%) (Auto) 0, Neutrophils # (Auto) 5.4, Lymphocytes # (Auto) 0.9, Monocytes # (Auto) 0.8, Eosinophils # (Auto) 0.1, Basophils # (Auto) 0.0, Sodium Level 130, Potassium Level 2.7, Chloride Level 97, Carbon Dioxide Level 21, Anion Gap 12, Blood Urea Nitrogen 2, Creatinine 0.49, Estimat Glomerular Filtration Rate > 60, BUN/ Creatinine Ratio 4, Glucose Level 96, Calcium Level 7.9, Total Bilirubin 0.8, Aspartate Amino Transf (AST/SGOT) 28, Alanine Aminotransferase (ALT/SGPT) 18, Alkaline Phosphatase 56, Total Protein 5.3, Albumin 3.0 Discharge Home Medications: Active Scripts Active Reported Fluticasone Propionate 16 Gm [place].susp 2 [place] NS DAILY Hydrocodon-Acetaminophn 10-325 (Hydrocodone/Acetaminophen) 1 Each Tablet 1 Tab PO Q4H PRN Lansoprazole 30 Mg Capsule.dr 30 Mg PO BID Cyclobenzaprine HCl 10 Mg Tablet 10 Mg PO TID Metoclopramide HCl 10 Mg Tablet 10 Mg PO BID Pravastatin Sodium 40 Mg Tablet 40 Mg PO DAILY Furosemide 40 Mg Tablet 40 Mg PO DAILY PRN Aspir 81 (Aspirin) 81 Mg Tablet.dr 81 Mg PO DAILY Plavix (Clopidogrel Bisulfate) 75 Mg Tablet 75 Mg PO DAILY Lisinopril 10 Mg Tablet 10 Mg PO DAILY Tramadol Hcl 50 Mg Tablet 1 Tab PO Q6H PRN Instructions to patient/family Please see electonic discharge instructions given to patient. Clinical Quality Measures DVT/VTE Risk/Contraindication: Risk Factor Score Per Nursin RFS Level Per Nursing on Admit: 4+=Very High JUAN RAY DO Dec 07, 2016 10:21
--- OUTSIDE RECORDS SUMMARY | 2016-12-09 12:15 | XMS REPORT ---
Author PRISCILA Gaxiola [facility] eClinicalWorks Address Unknown Phone Unavailable Care Team Providers Care Bone Drier Name Role Phone PRISCILA PITT CP Unavailable Allergies, Adverse Reactions, Alerts Substance Reaction Event Type Celebrex stomach upset Drug Allergy Zocor 20 Mg Tablet Info Not Available Non Drug Allergy Neurontin 300 Mg Capsule Info Not Available Non Drug Allergy Problems Problem Type Condition Code Onset Dates Condition Status Problem Hyperlipidemia E78.5 Active Problem Hypertension I10 Active Problem Back pain M54.9 Active Assessment Arthritis, 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 Active Assessment Leg weakness, bilateral M62.81 Active Problem GERD (gastroesophageal reflux disease) K21.9 Active Problem Coronary artery disease I25.10 Active Medications Medication Code System Code Instructions Start Date End Date Status Dosage Lisinopril [facility] 15221623378 10 TAKE ONE TABLET BY MOUTH DAILY Flonase [facility] [address]-83 50 MCG/DOSE Nasally Once a day 2 spray in each nostril Plavix [facility] 74685699885 75 TAKE ONE TABLET BY MOUTH DAILY Hydrocodone-Acetaminophen [facility] [address]-30 10-325 MG every 4 hrs July 1 tablet as needed Prevacid [facility] 35913263514 30 TAKE ONE CAPSULE BY MOUTH TWICE A DAY Lansoprazole [facility] [address]-77 30 MG Orally 2 times a day 1 capsule Aspir-Low [facility] [address]-39 81 MG Orally Once a day 1 tablet Reglan [facility] 36643842015 10 TAKE ONE TABLET BY MOUTH TWICE A DAY Tramadol HCl [facility] [address]-40 50 MG Orally every 6 hrs 1 tablet as needed Pravastatin Sodium [facility] 57023581839 40 TAKE ONE TABLET BY MOUTH AT BEDTIME, AVOID GRAPEFRUIT OR GRAPEFRUIT JUICE Procedures Procedure Coding System Code Date Office Visit, Est Pt., Level 3 CPT-4 70945 Dec 19, 2015 [facility] VISIT ESTABLISHED PATIENT CPT-4 G0467 Dec 19, 2015 Vital Signs Date/Time: Dec 19, 2015 Cardiac Monitoring Heart Rate 80 bpm Weight 131.2 lbs Height 68 in BMI 19.95 Index Blood Pressure Diastolic 100 mmHg Blood Pressure Systolic 150 mmHg Results No Known Results Summary Purpose eClinicalWorks Submission
--- OUTSIDE RECORDS SUMMARY | 2016-12-09 12:15 | XMS REPORT ---
Author Author PRISCILA PITT [facility] eClinicalWorks Address Unknown Phone Unavailable Care Team Providers Care Photofinishing Laboratory Worker Name Role Phone PRISCILA PITT CP Unavailable Allergies No Known Allergies Problems Problem Type Condition ICD-9 Code Onset Dates Condition Status Problem Hyposmolality and/or hyponatremia 276.1 Active Problem Reflux esophagitis 530.11 Active Problem Unspecified arthropathy, site unspecified 716.90 Active Problem Unspecified vitamin D deficiency 268.9 Active Problem Nondependent tobacco use disorder 305.1 Active Medications Medication Code System Code Instructions Start Date End Date Status Dosage Tramadol HCl [facility] [address]-49 50 MG Orally every 6 hrs 1 tablet as needed Hydrocodone-Acetaminophen [facility] [address]-56 10-325 MG every 4 hrs July 1 tablet as needed Results No Known Results Summary Purpose eClinicalWorks Submission
--- OUTSIDE RECORDS SUMMARY | 2016-12-09 12:15 | XMS REPORT ---
Author PRISCILA Gaxiola [facility] eClinicalWorks Address Unknown Phone Unavailable Care Team Providers Care Digital Account Coordinator Name Role Phone PRISCILA PITT CP Unavailable Allergies, Adverse Reactions, Alerts Substance Reaction Event Type Celebrex stomach upset Drug Allergy Zocor 20 Mg Tablet Info Not Available Non Drug Allergy Neurontin 300 Mg Capsule Info Not Available Non Drug Allergy Problems Problem Type Condition ICD-9 Code Onset Dates Condition Status Problem Hyposmolality and/or hyponatremia 276.1 Active Problem Reflux esophagitis 530.11 Active Problem Unspecified arthropathy, site unspecified 716.90 Active Assessment Acute bronchitis 466.0 Active Assessment Unspecified arthropathy, site unspecified 716.90 Active Problem Unspecified vitamin D deficiency 268.9 Active Problem Nondependent tobacco use disorder 305.1 Active Medications Medication Code System Code Instructions Start Date End Date Status Dosage Lisinopril [facility] 25807642926 10 TAKE ONE TABLET BY MOUTH DAILY Pravastatin Sodium [facility] 19678448761 40 TAKE ONE TABLET BY MOUTH AT BEDTIME, AVOID GRAPEFRUIT OR GRAPEFRUIT JUICE Flonase [facility] [address]-43 50 MCG/DOSE Nasally Once a day 2 spray in each nostril Plavix [facility] 30737056233 75 TAKE ONE TABLET BY MOUTH DAILY Cefdinir [facility] [address]-87 300 MG Orally 2 times a day Jan 09, 2015 Jan 16, 2015 1 capsule Lansoprazole [facility] [address]-79 30 MG Orally 2 times a day 1 capsule Tramadol HCl [facility] [address]-84 50 MG Orally every 6 hrs 1 tablet as needed Aspir-Low [facility] [address]-14 81 MG Orally Once a day 1 tablet Hydrocodone-Acetaminophen [facility] [address]-43 10-325 MG every 4 hrs July 1 tablet as needed Procedures Procedure Coding System Code Date Office Visit, Est Pt., Level 2 CPT-4 71730 Jan 09, 2015 [facility] V[facility] ESTABLISHED PATIENT CPT-4 G0467 Jan 09, 2015 Vital Signs Date/Time: Jan 09, 2015 Temperature 98.1 F Weight 135.8 lbs Height 68 in BMI 20.65 Index Blood Pressure Diastolic 86 mmHg Blood Pressure Systolic 124 mmHg Cardiac Monitoring Heart Rate 88 bpm Results No Known Results Summary Purpose eClinicalWorks Submission
--- OUTSIDE RECORDS SUMMARY | 2016-12-09 12:15 | XMS REPORT ---
Author PRISCILA Gaxiola [facility] eClinicalWorks Address Unknown Phone Unavailable Care Team Providers Care Plywood And Veneer Repairer Name Role Phone PRISCILA PITT CP Unavailable Allergies, Adverse Reactions, Alerts Substance Reaction Event Type Celebrex stomach upset Drug Allergy Neurontin 300 Mg Capsule Info Not Available Non Drug Allergy Zocor 20 Mg Tablet Info Not Available Non Drug Allergy Problems Problem Type Condition Code Onset Dates Condition Status Assessment Coronary artery disease I25.10 Active Assessment Encounter for immunization Z23 Active Assessment Contusion of right hip S70.01XA Active Problem Unspecified arthropathy, site unspecified 716.90 Active Problem Hyposmolality and/or hyponatremia 276.1 Active Problem Coronary artery disease I25.10 Active Problem Nondependent tobacco use disorder 305.1 Active Assessment Arthritis M19.90 Active Problem Reflux esophagitis 530.11 Active Problem Unspecified vitamin D deficiency 268.9 Active Medications Medication Code System Code Instructions Start Date End Date Status Dosage Lisinopril [facility] 31954102703 10 TAKE ONE TABLET BY MOUTH DAILY Hydrocodone-Acetaminophen [facility] [address]-06 10-325 MG every 4 hrs July 1 tablet as needed Reglan [facility] [address]-06 10 MG Orally 2 times a day 1 tablet Plavix [facility] 27610638513 75 TAKE ONE TABLET BY MOUTH DAILY Flonase [facility] [address]-09 50 MCG/DOSE Nasally Once a day 2 spray in each nostril Aspir-Low [facility] [address]-10 81 MG Orally Once a day 1 tablet Tramadol HCl [facility] [address]-76 50 MG Orally every 6 hrs 1 tablet as needed Lansoprazole [facility] [address]-07 30 MG Orally 2 times a day 1 capsule Pravastatin Sodium [facility] 81150675320 40 TAKE ONE TABLET BY MOUTH AT BEDTIME, AVOID GRAPEFRUIT OR GRAPEFRUIT JUICE Procedures Procedure Coding System Code Date Office Visit, Est Pt., Level 3 CPT-4 82420 Mar 04, 2015 FLUARIX QUAD (3 & UP)-GSK-2014 CPT-4 29844 Mar 04, 2015 FQ VISIT ESTABLISHED PATIENT CPT-4 G0467 Mar 04, 2015 SINGLE IMMUNIZATION ADMIN CPT-4 48377 Mar 04, 2015 Vital Signs Date/Time: Mar 04, 2015 Temperature 98.4 F Weight 135 lbs Height 68 in BMI 20.52 Index Blood Pressure Diastolic 78 mmHg Blood Pressure Systolic 122 mmHg Cardiac Monitoring Heart Rate 80 bpm Results No Known Results Immunizations Vaccine Administration Date FLUARIX QUAD (3 & UP)-GSK-2014Mar 04, 2015 Summary Purpose eClinicalWorks Submission
--- OUTSIDE RECORDS SUMMARY | 2016-12-09 12:15 | XMS REPORT ---
Author Author PRISCILA PITT Organization eClinicalWorks Address Unknown Phone Unavailable Care Team Providers Care Strategic Sourcing Consultant Name Role Phone PRISCILA PITT CP Unavailable Allergies No Known Allergies Problems Problem Type Condition Code Onset Dates Condition Status Problem Hyperlipidemia E78.5 Active Problem Hypertension I10 Active Problem Back pain M54.9 Active Problem GERD (gastroesophageal reflux disease) K21.9 Active Problem Coronary artery disease I25.10 Active Medications No Known Medications Results No Known Results Summary Purpose eClinicalWorks Submission
--- OUTSIDE RECORDS SUMMARY | 2016-12-09 12:15 | XMS REPORT ---
Author Author PRISCILA PITT [facility] eClinicalWorks Address Unknown Phone Unavailable Care Team Providers Care Police Pilot Name Role Phone PRISCILA PITT CP Unavailable Allergies No Known Allergies Problems Problem Type Condition Code Onset Dates Condition Status Problem Hyperlipidemia E78.5 Active Problem Hypertension I10 Active Problem Back pain M54.9 Active Problem GERD (gastroesophageal reflux disease) K21.9 Active Problem Coronary artery disease I25.10 Active Medications Medication Code System Code Instructions Start Date End Date Status Dosage Tramadol HCl [facility] [address]-07 50 MG Orally every 6 hrs 1 tablet as needed Hydrocodone-Acetaminophen [facility] [address]-92 10-325 MG every 4 hrs July 1 tablet as needed Results No Known Results Summary Purpose eClinicalWorks Submission
--- OUTSIDE RECORDS SUMMARY | 2016-12-09 12:16 | XMS REPORT ---
Author Author PRISCILA PITT [facility] eClinicalWorks Address Unknown Phone Unavailable Care Team Providers Care Petroleum Refinery Worker Name Role Phone PRISCILA PITT CP Unavailable Allergies No Known Allergies Problems Problem Type Condition Code Onset Dates Condition Status Problem Unspecified arthropathy, site unspecified 716.90 Active Problem Hyposmolality and/or hyponatremia 276.1 Active Problem Coronary artery disease I25.10 Active Problem Nondependent tobacco use disorder 305.1 Active Problem Reflux esophagitis 530.11 Active Problem Unspecified vitamin D deficiency 268.9 Active Medications Medication Code System Code Instructions Start Date End Date Status Dosage Hydrocodone-Acetaminophen [facility] [address]-25 10-325 MG every 4 hrs July 1 tablet as needed Tramadol HCl [facility] [address]-25 50 MG Orally every 6 hrs 1 tablet as needed Results No Known Results Summary Purpose eClinicalWorks Submission
--- OUTSIDE RECORDS SUMMARY | 2016-12-09 12:16 | XMS REPORT ---
Author Author PRISCILA PITT [facility] Address [address] [place] [address] Care Team Providers Care Rubber Printing Machine Operator Name Role Phone PRISCILA PITT Unavailable PROBLEMS Type Condition ICD9-CM Code [id number] Code Onset Dates Condition Status SNOMED Code Problem Back pain M54.9 Active 410998306 Problem Hyperlipidemia E78.5 Active 20768272 Problem Coronary artery disease I25.10 Active 91900049 Problem Hypertension I10 Active 34411435 Problem GERD (gastroesophageal reflux disease) K21.9 Active 986699028 ALLERGIES No Known Allergies SOCIAL HISTORY No smoking Hx information available PLAN OF CARE VITAL SIGNS MEDICATIONS No Known Medications RESULTS No Results PROCEDURES No Known procedures IMMUNIZATIONS No Known Immunizations
--- OUTSIDE RECORDS SUMMARY | 2016-12-09 12:16 | XMS REPORT ---
Author Author PRISCILA PITT Organization eClinicalWorks Address Unknown Phone Unavailable Care Team Providers Care Insurance Compliance Analyst Name Role Phone PRISCILA PITT CP Unavailable [...]
--- OUTSIDE RECORDS SUMMARY | 2016-12-09 12:16 | XMS REPORT ---
Author Author PRISCILA PITT Organization eClinicalWorks Address Unknown Phone Unavailable Care Team Providers Care Gear Repairer Name Role Phone PRISCILA PITT CP Unavailable Allergies No Known Allergies Problems Problem Type Condition Code Onset Dates Condition Status Problem Unspecified arthropathy, site unspecified 306.95 Active Problem Hyposmolality and/or hyponatremia 276.1 Active Problem Coronary artery disease I25.10 Active Problem Nondependent tobacco use disorder 305.1 Active Problem Reflux esophagitis 530.11 Active Problem Unspecified vitamin D deficiency 268.9 Active Medications No Known Medications Results No Known Results Summary Purpose eClinicalWorks Submission
--- OUTSIDE RECORDS SUMMARY | 2016-12-09 12:16 | XMS REPORT ---
Author Author PRISCILA PITT [facility] Address [address] [place] [address] Care Team Providers Care Flatwork Tier Name Role Phone PRISCILA PITT Unavailable PROBLEMS Type Condition ICD9-CM Code [id number] Code Onset Dates Condition Status SNOMED Code Problem Back pain M54.9 Active 107419278 Problem Hyperlipidemia E78.5 Active 21090384 Problem Coronary artery disease I25.10 Active 76517642 Problem Hypertension I10 Active 92465988 Problem GERD (gastroesophageal reflux disease) K21.9 Active 829927677 ALLERGIES No Known Allergies SOCIAL HISTORY No smoking Hx information available PLAN OF CARE VITAL SIGNS MEDICATIONS Medication Instructions Dosage Frequency Start Date End Date Duration Status Tramadol HCl 50 MG Orally every 6 hrs 1 tablet as needed 6h Active Hydrocodone-Acetaminophen 10-325 MG 1 tablet as needed 4h Jul, Active RESULTS No Results PROCEDURES No Known procedures IMMUNIZATIONS No Known Immunizations
--- OUTSIDE RECORDS SUMMARY | 2016-12-09 12:16 | XMS REPORT ---
Author Author PRISCILA PITT Organization eClinicalWorks Address Unknown Phone Unavailable Care Team Providers Care Advanced Manufacturing Associate Name Role Phone PRISCILA PITT CP Unavailable [...] Date End Date Status Dosage Tramadol HCl [facility] [address]-46 50 MG Orally every 6 hrs 1 tablet as needed Results No Known Results Summary Purpose eClinicalWorks Submission
--- OUTSIDE RECORDS SUMMARY | 2016-12-09 12:16 | XMS REPORT ---
Author PRISCILA Gaxiola [facility] eClinicalWorks Address Unknown Phone Unavailable Care Team Providers Care Entertainer & Comic Name Role Phone PRISCILA PITT CP Unavailable Allergies, Adverse Reactions, Alerts Substance Reaction Event Type Celebrex stomach upset Drug Allergy Zocor 20 Mg Tablet Info Not Available Non Drug Allergy Neurontin 300 Mg Capsule Info Not Available Non Drug Allergy Problems Problem Type Condition Code Onset Dates Condition Status Problem Hyperlipidemia E78.5 Active Problem Hypertension I10 Active Problem Back pain M54.9 Active Assessment Back pain M54.9 Active Problem GERD (gastroesophageal reflux disease) K21.9 Active Problem Coronary artery disease I25.10 Active Medications Medication Code System Code Instructions Start Date End Date Status Dosage Reglan [facility] 83301967717 10 TAKE ONE TABLET BY MOUTH TWICE A DAY Lisinopril [facility] 64743207953 10 TAKE ONE TABLET BY MOUTH DAILY Prevacid [facility] 64811212864 30 TAKE ONE CAPSULE BY MOUTH TWICE A DAY Flonase [facility] [address]-26 50 MCG/DOSE Nasally Once a day 2 spray in each nostril Plavix [facility] 53539130989 75 TAKE ONE TABLET BY MOUTH DAILY Tramadol HCl [facility] [address]-62 50 MG Orally every 6 hrs 1 tablet as needed Lansoprazole [facility] [address]-63 30 MG Orally 2 times a day 1 capsule Pravastatin Sodium [facility] 54099054762 40 TAKE ONE TABLET BY MOUTH AT BEDTIME, AVOID GRAPEFRUIT OR GRAPEFRUIT JUICE Aspir-Low [facility] [address]-54 81 MG Orally Once a day 1 tablet Hydrocodone-Acetaminophen [facility] [address]-43 10-325 MG every 4 hrs July 1 tablet as needed Procedures Procedure Coding System Code Date Office Visit, Est Pt., Level 2 CPT-4 25052 August 25, 2015 [facility] VISIT ESTABLISHED PATIENT CPT-4 G0467 August 25, 2015 Vital Signs Date/Time: August 25, 2015 Temperature 98.0 F Weight 133.2 lbs Height 68 in BMI 20.25 Index Blood Pressure Diastolic 80 mmHg Blood Pressure Systolic 110 mmHg Cardiac Monitoring Heart Rate 88 bpm Results No Known Results Summary Purpose eClinicalWorks Submission
--- OUTSIDE RECORDS SUMMARY | 2016-12-09 12:16 | XMS REPORT ---
Author Author PRISCILA PITT [facility] eClinicalWorks Address Unknown Phone Unavailable Care Team Providers Care Cyber Systems Administrator Name Role Phone PRISCILA PITT CP Unavailable Allergies No Known Allergies Problems Problem Type Condition Code Onset Dates Condition Status Problem Hyperlipidemia E78.5 Active Problem Hypertension I10 Active Problem Back pain M54.9 Active Problem GERD (gastroesophageal reflux disease) K21.9 Active Problem Coronary artery disease I25.10 Active Medications Medication Code System Code Instructions Start Date End Date Status Dosage Tramadol HCl [facility] [address]-12 50 MG Orally every 6 hrs 1 tablet as needed Hydrocodone-Acetaminophen [facility] [address]-70 10-325 MG every 4 hrs July 1 tablet as needed Results No Known Results Summary Purpose eClinicalWorks Submission
--- OUTSIDE RECORDS SUMMARY | 2016-12-09 12:16 | XMS REPORT ---
Author Author PRISCILA PITT [facility] eClinicalWorks Address Unknown Phone Unavailable Care Team Providers Care Director Corporate Sales Name Role Phone PRISCILA PITT CP Unavailable [...] Date End Date Status Dosage Tramadol HCl [facility] [address]-61 50 MG Orally every 6 hrs 1 tablet as needed Hydrocodone-Acetaminophen [facility] [address]-38 10-325 MG every 4 hrs July 1 tablet as needed Results No Known Results Summary Purpose eClinicalWorks Submission
--- OUTSIDE RECORDS SUMMARY | 2016-12-09 12:16 | XMS REPORT ---
Author Author PRISCILA PITT [facility] eClinicalWorks Address Unknown Phone Unavailable Care Team Providers Care Vocational Teacher Name Role Phone PRISCILA PITT CP Unavailable [...] Date Status Dosage Tramadol HCl [facility] [address]-40 50 MG Orally every 6 hrs 1 tablet as needed Hydrocodone-Acetaminophen [facility] [address]-89 10-325 MG every 4 hrs July 1 tablet as needed Results No Known Results Summary Purpose eClinicalWorks Submission
--- OUTSIDE RECORDS SUMMARY | 2016-12-09 12:16 | XMS REPORT ---
Author Author PRISCILA PITT Organization eClinicalWorks Address Unknown Phone Unavailable Care Team Providers Care Day Habilitation Supervisor Name Role Phone PRISCILA PITT CP Unavailable [...] Start Date End Date Status Dosage Hydrocodone-Acetaminophen [facility] [address]-66 10-325 MG every 4 hrs July 1 tablet as needed Tramadol HCl [facility] [address]-22 50 MG Orally every 6 hrs 1 tablet as needed Results No Known Results Summary Purpose eClinicalWorks Submission
--- OUTSIDE RECORDS SUMMARY | 2016-12-09 12:16 | XMS REPORT ---
Author Author PRISCILA PITT Organization eClinicalWorks Address Unknown Phone Unavailable Care Team Providers Care Barrel Repairer Name Role Phone PRISCILA PITT CP [...] Start Date End Date Status Dosage Hydrocodone-Acetaminophen [facility] [address]-40 10-325 MG every 4 hrs July 1 tablet as needed Results No Known Results Summary Purpose eClinicalWorks Submission
--- OUTSIDE RECORDS SUMMARY | 2016-12-09 12:16 | XMS REPORT ---
Author Author PRICSILA PITT [facility] eClinicalWorks Address Unknown Phone Unavailable Care Team Providers Care Journeyman Wireman Name Role Phone PRISCILA PITT CP Unavailable Allergies No Known Allergies Problems Problem Type Condition Code Onset Dates Condition Status Problem Hyperlipidemia E78.5 Active Problem Hypertension I10 Active Problem Back pain M54.9 Active Problem GERD (gastroesophageal reflux disease) K21.9 Active Problem Coronary artery disease I25.10 Active Medications Medication Code System Code Instructions Start Date End Date Status Dosage Hydrocodone-Acetaminophen [facility] [address]-44 10-325 MG every 4 hrs July 1 tablet as needed Tramadol HCl [facility] [address]-39 50 MG Orally every 6 hrs 1 tablet as needed Results No Known Results Summary Purpose eClinicalWorks Submission
--- OUTSIDE RECORDS SUMMARY | 2016-12-09 12:18 | XMS REPORT ---
Author Author PRISCILA PITT Organization eClinicalWorks Address Unknown Phone Unavailable Care Team Providers Care Public Works Inspector Name Role Phone PRISCILA PITT CP Unavailable Allergies No Known Allergies Problems Problem Type Condition Code Onset Dates Condition Status Problem Unspecified arthropathy, site unspecified 716.02 Active Problem Hyposmolality and/or hyponatremia 276.1 Active Problem Coronary artery disease I25.10 Active Problem Nondependent tobacco use disorder 305.1 Active Problem Reflux esophagitis 530.11 Active Problem Unspecified vitamin D deficiency 268.9 Active Medications No Known Medications Results No Known Results Summary Purpose eClinicalWorks Submission
[2016-12-22] MEDS ORDERED: POTA10TA6 PO (15:21)
[2016-12-22] MEDS ORDERED: DICL100G18 TOP (15:21)
[2016-12-22] MEDS ORDERED: TRAM50TA2 PO (15:21)
[2016-12-22] MEDS ORDERED: SENN-20 PO (15:21)
[2016-12-22] MEDS ORDERED: LACT20SO2 PO (15:21)
[2016-12-22] MEDS ORDERED: METO10TA3 PO (15:21)
[2016-12-22] MEDS ORDERED: HYDR-3820 PO (15:21)
[2016-12-22] MEDS ORDERED: CYCL10TA9 PO (15:21)
[2016-12-22] MEDS ORDERED: AMLO5TAB2 PO (15:21)
--- NOTE | 2017-02-04 08:17 | OPERATIVE REPORT ---
PROCEDURE PHYSICIAN: YOCASTA GOMEZ DATE OF PROCEDURE: 12/04/2016 PREOPERATIVE DIAGNOSIS: Right intertrochanteric femoral fracture. POSTOPERATIVE DIAGNOSIS: Right intertrochanteric femoral fracture. PROCEDURE: Open reduction internal fixation, right intertrochanteric femoral fracture with trochanteric femoral nail. SURGEON: Shelia GLASS SETTER: PAC. Abilio Refrigeration Person surgeon duties: Patient positioning, retraction, use of internal fixation devices, wound closure, application sterile dressings. Use of assistant commissioner is medically indicated. ANESTHESIA: General. COMPLICATIONS: None. BLOOD LOSS: 100 mL SPECIMENS: None IMPLANTS: Synthes 11 mm diameter, 360 mm length, long trochanteric femoral nail with a 100 mm helical blade and locking screw proximally. No distal locking screw. INDICATIONS: This man had fallen and fractured the right hip. He comes in for surgical repair. PROCEDURE IN DETAIL: After informed consent, the patient was transported to the operating room and was placed on the operating table in supine position. General anesthesia was induced. He was position on the fracture table with pubis against the perineal post. The right foot in a traction boot and the left leg in the leg taylor. The right lower extremity was prepped with ChloraPrep draped in the usual sterile fashion. The C-arm was brought in. Reduction appeared to be satisfactory with traction and internal rotation. A lateral incision was made just above the greater trochanter. The fascia was split and a guide pin was drilled in the greater trochanter and down the shaft. The rigid reamer was used and then the flexible guidewire clasped to the knee. It was measured, the appropriate size yeimy was chosen. It was placed on the insertion device and placed down the femoral shaft to the appropriate depth so that the helical blade would go into the femoral neck and head centrally. The aiming arm was placed. A lateral incision was made over the left lateral thigh through the skin and fascia and then the aiming arm was used and drill sleeved down to the lateral femur. A guide pin was drilled in the femoral neck and head on the AP and lateral views; placement appeared to be satisfactory. It was centrally in the AP and lateral views. The pin was measured. The lateral cortex reamer was utilized and then the appropriate length helical blade was impacted for a good fit in the femoral head. The proximal locking screw was locked down tightly and then backed off at half turn to allow compression. The insertion device and guide pin removed and he C-arm images confirmed satisfactory placement and near anatomic reduction. The wound were thoroughly irrigated and closed in layers with running 0 Vicryl, 2-0 Vicryl and dorothy. A bulky dressing was applied. The patient then was transferred to the recovery room in stable condition. Job ID: [id number] Dictated Date: 12/04/2016 11:15:19 Customer Insight Analyst Date: 12/06/2016 09:46:31 / kjs <Dictated by YOCASTA GOMEZ MD> <Electronically signed by YOCASTA GOMEZ MD> 12/06/16 [id number]
== END 2016-12-07 11:10 | DRG 481 ==
LOC: EDUNIT# 18:03 → ER 18:04 → 4TH 19:47
PROVIDERS: ADMIT Internal Medicine; ATTEND Internal Medicine
PROC: 0QS606Z Reposition Right Upper Femur with Intramedullary Internal Fixation Device, Open Approach (ICD-10-PCS; principal; 2016-12-03)
DX: S72.141A Displaced intertrochanteric fracture of right femur, initial encounter for closed fracture (principal); D62 Acute posthemorrhagic anemia; E87.1 Hypo-osmolality and hyponatremia; L02.31 Cutaneous abscess of buttock; J44.9 Chronic obstructive pulmonary disease, unspecified; S40.022A Contusion of left upper arm, initial encounter; S40.021A Contusion of right upper arm, initial encounter; I25.10 Atherosclerotic heart disease of native coronary artery without angina pectoris; F17.210 Nicotine dependence, cigarettes, uncomplicated; I10 Essential (primary) hypertension; K21.9 Gastro-esophageal reflux disease without esophagitis; M19.91 Primary osteoarthritis, unspecified site; M41.9 Scoliosis, unspecified; R29.898 Other symptoms and signs involving the musculoskeletal system; E78.00 Pure hypercholesterolemia, unspecified; M54.5 Low back pain; W18.09XA Striking against other object with subsequent fall, initial encounter; Y92.000 Kitchen of unspecified non-institutional (private) residence as the place of occurrence of the external cause; Z95.1 Presence of aortocoronary bypass graft; Z79.899 Other long term (current) drug therapy
CPT/HCPCS: 36415; 51702; 71010; 72170; 73502; 73700; 80053; 80320; 81000; 85025; 85610; 85730; 86850; 86900; 86901; 86920; 87070; 87077; 87081; 87186; 87205; 93005; 93041; 94640; 94664; 94760; 96361; 96374; 96375

== ENCOUNTER 2016-12-07 10:26 | Inpatient (IN) | payer MEDICARE ==
[~2016-12-07] VITALS: Ht 175.3 cm; Wt 58.5 kg
[~2016-12-07 10:26] MED LIST changes: +CYCL10TA9 PO; +FLUT16SP22 NS; +FLUTICASONE NS; +FURO40TA4 PO; +HYDR-3820 PO; +LANS30CA PO; +METO10TA3 PO; +PRAV40TA2 PO
[2016-12-07] MEDS: POTASSIUM CL 10MEQ/50ML IVPB 50 ML IV SCH ×5 (11:15→15:59)
[2016-12-07] MEDS ORDERED: LACTATED RINGERS 1,000 ML IV PRN (11:45)
[2016-12-07] MEDS ORDERED: hydrALAZINE (APRESOLINE) 25 MG TAB PO PRN (11:45)
[2016-12-07] MEDS ORDERED: RT-ALBUTEROL/IPRATROPIUM 3 ML (DUONEB) VIAL INH PRN (11:45)
[2016-12-07] MEDS ORDERED: ONDANSETRON 4 MG/2 ML (SDV) Z0FRAN IV PRN (11:45)
[2016-12-07] MEDS ORDERED: FUROSEMIDE 40 MG (LASIX) TAB PO PRN (11:45)
[2016-12-07] MEDS ORDERED: POTASSIUM CL 10MEQ/50ML IVPB 50 ML IV SCH (11:45)
[2016-12-07 11:55] VITALS: BP 149/95
--- NOTE | 2016-12-07 13:07 | Physical Therapy Evaluation ---
PT Evaluation-General Medical Diagnosis Admission Date Dec 07, 2016 at 11:11 Medical Diagnosis: right intertrochantric femur fracture Onset Date: Dec 04, 2016 Therapy Diagnosis Therapy Diagnosis: impaired mobility/weakness Height/Weight Height (Feet): 5 Height (Inches): 9.00 Weight (Pounds): 127 Weight (Ounces): 2.3 Precautions Precautions/Isolations: Standard Precautions Weight Bear Status Weight Bearing Restriction: Weight Bearing/Tolerated Location Restriction: LE Bilateral Referral Physician: Parvez Reason for Referral: Evaluation/Treatment Medical History Pertinent Medical History: Arthritis, CAD, COPD, GERD, HTN, Smoking Additional Medical History CABG; CACHIL DEHE Current History fall at home landing on right hip Reviewed History: Yes Social History Home: Single Level Current Living Status: Alone Entry Into Home: Stairs With Railing PT Steps Into Home: 5 Prior/Core FIM Prior Level of Function Functional [place] Measure 0=Not Assessed/NA 4=Minimal Assistance 1=Total Assistance 5=Supervision or Setup 2=Maximal Assistance 6=Modified [place] 3=Moderate Assistance 7=Complete [place] Bed Mobility: 7 Transfers (B,C,W/C) (FIM): 7 Gait: 7 ambulate short distance per patient and family report PT Evaluation-Current Subjective Patient reluctantly agrees to PT. Pain Numeric Pain Scale: 10-Worst Possible Pain Location: Right Location Body Site: Hip Pain Description: Acute Objective Patient Orientation: Normal For Age Problem Solving: Poor Attachments: IV ROM/Strength ROM Lower Extremities right LE limited knee flexion due to pain left LE WNL Strenght Lower Extremities right knee flexion/extension 3-/5; hip flexion NT due to pain; ankle dorsi/ plantarflexion 3-/5 left knee flexion/extension 3/5; hip flexion NT (patient refused); ankle dorsi/ plantarflexion 3/5 Integumentary/Posture Integumentary refer to nursing notes Bowel Incontinence: No Bladder Incontinence: No Posture scoliosis/kyphosis Neuromuscular (Tone, Coordination, Reflexes) diminished coordination and sensation Sensory Vision: Functional Hearing: Impaired Sensation Right Lower Extremit: Impaired Sensation Left Lower Extremity: Impaired Transfers Functional [place] Measure 0=Not Assessed/NA 4=Minimal Assistance 1=Total Assistance 5=Supervision or Setup 2=Maximal Assistance 6=Modified [place] 3=Moderate Assistance 7=Complete IndependenceIRFPAI Quality Coding Scale 6 Independent with activity with or without an assistive device 5 Patient requires set up or clean up by helper. Patient completes activity by themselves 4 Supervision or touching assist (CGA). [place] provide cues , steadying assist 3 The helper provides less than half the effort to complete the activity 2 The helper provides more than half the effort to complete the activity 1 Dependent. The helper does all the effort to complete an activity 7 Patient refused to complete or attempt activity 9 The patient did not perform the activity before the current illness or injury 88 Not attempted due to Medical conditions or safety concerns Transfers (B, C, W/C) (FIM): 1 Scootin Rollin Roll Left to Right (QC): 1 Supine to/from Sit: 1 Sit to/from Stand: 1 bed t/f WC(FIM only if WC use): 1 Sit to Lying (QC): 1 Lying to Sitting/Side of Bed(Q: 1 Sit to Stand (QC): 1 Chair/Sva-zr-Dzvgi Xfer(QC): 1 Car Transfer (QC): 88 patient resists all movement and is unable to perform without dependent assist ( or max assist x 2); patient is retropulsive with sit to stand and will "melt" in standing position, then impulsively sit without reaching back with bilateral UE's or reporting to therapist. Gait Does the Patient Walk?: No and Walking Goal IS indicated Mode of Locomotion: Both Anticipated Mode of Locomotion: Both Gait Assistive Device: FWW Comments/Gait Description unable to advance either LE; unable to utilize FWW appropriately with 100% skilled verbal instruction Wheelchair Training Does the Pt Use a Wheelchair?: Yes Wheelchair (FIM): 1 Wheelchair Distance (FIM): 1=up to 49 ft Wheelchair Level of Assist: 1 Wheel 50 ft with 2 turns (QC): 88 Wheel 150 ft (QC): 88 Type of Wheelchair: Manual Stairs Stairs (FIM): 0 1 Step (curb) (QC): 88 4 Steps (QC): 88 12 Steps (QC): 88 If not tested on admit;explain Patient is unable to ruling machine set up operator FWW and also unable to advance either LE to ambulate due to weakness and pain Balance Sitting Static: Fair Sitting Dynamic: Fair Standing Static: Poor Standing Dynamic: Poor Picking up an Object (QC): 88 Assessment/Needs 66 y.o. inactive male, will benefit from skilled PT to address functional strength and mobility to improve current LOF and to safely return to home or LTCF for continued care. Patient has extreme limitations at this time with all gross motor skills. Rehab Potential: Fair Post Rehab Potential-Barriers: inactivity/motivation PT [facility] Goals Apprentice Photographer Goals PT Apprentice Photographer Goals Time Frame: Jan 07, 2017 Transfers (B,C,W/C) (FIM): 5 Sit to Lying (QC): 4 Lying-Sitting on Side/Bed(QC): 4 Sit to Stand (QC): 4 Rollin Roll Left to Right (QC): 4 Chair/Boe-yl-Fjrnf Xfer(QC): 4 Car Transfer (QC): 4 Does the Patient Walk: No and Walking Goal IS indicated Gait (FIM): 1 Gait distance (FIM): 1=up to 49 ft (45) Distance: 45' Walk 10 feet (QC): 4 Walk 10ft-Uneven Surface(QC): 4 Walk 50ft with 2 Turns (QC): 9 Walk 150 ft (QC): 9 Gait Level of Assist: 5 Gait Assistive Device: FWW # of Steps: 1 1 Step (curb) (QC): 4 4 Steps (QC): 4 12 Steps (QC): 9 Stairs Level Of Assist: 4 Picking up an Object (QC): 4 PT Plan Problem List Problem List: Activity Tolerance, Functional Strength, Safety, Balance, Gait, Transfer, Bed Mobility, ROM Treatment/Plan Treatment Plan: Continue Plan of Care Treatment Plan: Bed Mobility, Education, Functional Activity Gonzalez, Functional Strength, Group Therapy, Gait, Safety, Therapeutic Exercise, Transfers Treatment Duration: Jan 07, 2017 Frequency: At least 5-7 days/Wk (IRF) Estimated Hrs Per Day: 1.5 hours per day Patient and/or Family Agrees t: Yes Safety Risks/Education Patient Education: Gait Training, Transfer Techniques, Reviewed Precautions, Safety Issues Teaching Recipient: Patient, Family Teaching Methods: Demonstration, Discussion Response to Teaching: Reinforcement Needed Discharge Recommendations Therapy D/C Recommendations: Home w/ Family Support, Physical Therapy Home Care , Detention Placement Time/GCodes Time In: 1050 Time Out: 1130 Total Billed Treatment Time: 40 Total Billed Treatment 1 visit EVModC 25 min FA 20 min GINNA BRIONES PT Dec 07, 2016 13:07
--- NOTE | 2016-12-07 14:25 | Physical Therapy Daily Note ---
PT Daily Note-Current Subjective Patient sitting EOB pre tx, working with OT, PT will co-treat with OT for a short time. Patient has pain of 8/10 in right hip. Appearance Patient in bed post tx with nurse call, phone, tray, family in the room. Mental Status Patient Orientation: Person, Place, Situation Attachments: IV Transfers Functional [place] Measure 0=Not Assessed/NA 4=Minimal Assistance 1=Total Assistance 5=Supervision or Setup 2=Maximal Assistance 6=Modified [place] 3=Moderate Assistance 7=Complete IndependenceIRFPAI Quality Coding Scale 6 Independent with activity with or without an assistive device 5 Patient requires set up or clean up by helper. Patient completes activity by themselves 4 Supervision or touching assist (CGA). [place] provide cues , steadying assist 3 The helper provides less than half the effort to complete the activity 2 The helper provides more than half the effort to complete the activity 1 Dependent. The helper does all the effort to complete an activity 7 Patient refused to complete or attempt activity 9 The patient did not perform the activity before the current illness or injury 88 Not attempted due to Medical conditions or safety concerns Transfers (B, C, W/C) (FIM): 3 Scootin Rollin Supine to/from Sit: 3 Sit to/from Stand: 4 Patient needed cues for hand placement during transfers, will try to pull up from walker. Gait Training Gait (FIM): 1 Distance: 2' Gait Level of Assist: 4 Gait Persons Needed: 1 Gait Assistive Device: FWW Patient ambulated a couple of feet toward the head of the bed. He could not actually lift his feet from the floor, he had to scoot them along the floor, slowly and painfully. Exercises Supine Ex: Ankle pumps, Quad Set, Glut sets, Heel Slides, Short Arc Quads, Straight leg raise, Hip abd/add Supine Reps: 10 Treatments bed mobility and transfers, functional strengthening Assessment Current Status: Fair Progress PT [facility] Goals Research Tech Goals PT Research Tech Goals Time Frame: Jan 07, 2017 Transfers (B,C,W/C) (FIM): 5 Sit to Lying (QC): 4 Lying-Sitting on Side/Bed(QC): 4 Sit to Stand (QC): 4 Rollin Roll Left to Right (QC): 4 Chair/Eus-sq-Tnqsm Xfer(QC): 4 Car Transfer (QC): 4 Does the Patient Walk: No and Walking Goal IS indicated Gait (FIM): 1 Gait distance (FIM): 1=up to 49 ft (45) Distance: 45' Walk 10 feet (QC): 4 Walk 10ft-Uneven Surface(QC): 4 Walk 50ft with 2 Turns (QC): 9 Walk 150 ft (QC): 9 Gait Level of Assist: 5 Gait Assistive Device: FWW # of Steps: 1 1 Step (curb) (QC): 4 4 Steps (QC): 4 12 Steps (QC): 9 Stairs Level Of Assist: 4 Picking up an Object (QC): 4 PT Plan Problem List Problem List: Activity Tolerance, Functional Strength, Safety, Balance, Gait, Transfer, Bed Mobility, ROM Treatment/Plan Treatment Plan: Continue Plan of Care Treatment Plan: Bed Mobility, Education, Functional Activity Gonzalez, Functional Strength, Group Therapy, Gait, Safety, Therapeutic Exercise, Transfers Treatment Duration: Jan 07, 2017 Frequency: At least 5-7 days/Wk (IRF) Estimated Hrs Per Day: 1.5 hours per day Patient and/or Family Agrees t: Yes Safety Risks/Education Patient Education: Gait Training, Transfer Techniques, Correct Positioning, Safety Issues Teaching Recipient: Patient Teaching Methods: Demonstration, Discussion Response to Teaching: Reinforcement Needed Time/GCodes Time In: 1345 Time Out: 1415 Total Billed Treatment Time: 30 Total Billed Treatment 1 visit EX 20' FA 10' Co-treated with OT from [id number] PT assisted patient with standing while OT worked on dressing. PT only time was from [id number]. SILVIO NAIDU PT Dec 07, 2016 14:25
--- NOTE | 2016-12-07 14:26 | Occupational Therapy Eval ---
OT Evaluation-General/PLF Medical Diagnosis Admission Date Dec 07, 2016 at 11:11 Medical Diagnosis: right intertrochantric femur fracture Onset Date: Dec 03, 2016 Therapy Diagnosis Therapy Diagnosis: decr self care, weakness, decr funct mobility, decr activity tolerance Height/Weight Height (Feet): 5 Height (Inches): 9.00 Weight (Pounds): 127 Weight (Ounces): 2.3 Precautions Precautions/Isolations: Standard Precautions Weight Bear Status Weight Bearing Restriction: Weight Bearing/Tolerated Location Restriction: LE Bilateral Referral Physician: Parvez Referral Reason: Evaluation/Treatment Medical History Pertinent Medical History: Arthritis, CAD, COPD, GERD, HTN, Smoking Additional Medical History CABG x 3 with stent. Scoliosis, Lower back problems, hard of hearing Current History Fell at home, landing on R side. R hip fx with IM nail 12-04-16. WBAT Reviewed History: Yes Social History Home: Single Level Current Living Status: Alone Entry Into Home: Stairs With Railing Steps Into Home: 5 ADL-Prior Level of Function ADL PLOF Comments Pt reported that was able to manage all of his basic self care needs prior to admission, He did his own cooking, cleaning and laundry and daughter did his grocery shopping. He still drove but mainly to places that had drive-through service. DME/Equipment: Shower (4-6 inch lip) Occupation: disabled. Worked on [employer] [address] Self: Yes OT Current Status Subjective Pt seen in room, up in w/c, agreeable to OT. Pain reported 9-10 in R hip, but not described Appearance Alert, cooperative, fearful. Mental Status/Objective Patient Orientation: Person, Place, Situation Attachments: IV Current Glasses/Contacts: Yes (driving) Hearing Aids: No Dentures/Partials: No Hand Dominance: Right Upper Extremity ROM Grossly WFL bilat Upper Extremity Strength Grossly 4/5 bilat ADL-Treatment ADL-Current Washed face and hands with setup but did not do tooth brushing, hair brushing, shaving today Functional [place] Measure 0=Not Assessed/NA 4=Minimal Assistance 1=Total Assistance 5=Supervision or Setup 2=Maximal Assistance 6=Modified [place] 3=Moderate Assistance 7=Complete IndependenceIRFPAI Quality Coding Scale 6 Independent with activity with or without an assistive device 5 Patient requires set up or clean up by helper. Patient completes activity by themselves 4 Supervision or touching assist (CGA). [place] provide cues , steadying assist 3 The helper provides less than half the effort to complete the activity 2 The helper provides more than half the effort to complete the activity 1 Dependent. The helper does all the effort to complete an activity 7 Patient refused to complete or attempt activity 9 The patient did not perform the activity before the current illness or injury 88 Not attempted due to Medical conditions or safety concerns Eating (FIM): 5 (setup) Eating (QC): 5 Bathing (FIM): 5 (Setup, sponge bath. Able to wash and dry all parts, including feet and bottom, seated EOB. Leaned to side to wash bottom.) Shower/Bathe Self (QC): 5 Upper Body Dressing (FIM): 5 (Donned t shirt with setup) Upper Body Dressing (QC): 5 Lower Body Dressing (FIM): 1 (Pt education modified technique for donning pants. Able to get one foot into pants but not two, due to decr sitting balaance. Unable to doff or don slipper socks or TEDs. Two people needed for standing and pulling pants up, while he focused on standing with FWW. He was able to move from sit to stand with min assist, FWW, when bed raised up significantly) Lower Body Dressing (QC): 1 (2 people needed) On/Off Footwear (QC): 1 (dependant) Transfers (B, C, W/C) (FIM): 1 (Two people needed to transfer him from w/c to bed, then mod assist getting LEs into bed. He was also able to scoot forward to EOB with some difficulty. Pt educ for hand placement) BSC left in room to put at bedside for toileting. Co-tx with PT for 10 minutes, working on sit to stand for pulling up underwear and shorts. Co-tx was necessary because OT focused on ADL and technique and PT focusing on sit to stand and weight bearing with FWW. Previous transfer from w/c to bed required 2 people. Education OT Patient Education: Correct positioning, Modified ADL techniques, Progress toward Goal/Update tx plan, Purpose of tx/functional activities, Rehab process, Transfer techniques, Use of adapted equipment Teaching Recipient: Patient Teaching Methods: Demonstration, Discussion Response to Teaching: Verbalize Understanding, Return Demonstration, Reinforcement Needed OT Short Term Goals Short Term Goals Time Frame: Dec 16, 2016 Lower Body Dressing(FIM): 3 Toilet/Commode Transfer(FIM): 3 Shower Transfer(FIM): 3 1=Demonstrate adherence to instructed precautions during ADL tasks. 2=Patient will verbalize/demonstrate understanding of assistive devices/ modifications for ADL. 3=Patient will improve strength/tolerance for activity to enable patient to perform ADL's. OT Electronics Specialist Goals [facility] Goals Time Frame: Jan 06, 2017 Eating (FIM): 6 Eating (QC): 6 Groomin Oral Hygiene (QC): 6 Bathing(FIM): 5 Shower/Bathe Self (QC): 5 Upper Body Dressing(FIM): 6 Upper Body Dressing (QC): 6 Lower Body Dressing(FIM): 6 Lower Body Dressing (QC): 6 On/Off Footwear (QC): 6 Toileting(FIM): 6 Toileting Hygiene (QC): 6 Toilet/Commode Transfer(FIM): 6 Toilet/Commode Transfer (QC): 6 Shower Transfer(FIM): 5 Additional Goals: 1-Demonstrate ADL Tasks, 2-Verbalize Understanding, 3- ImproveStrength/Gonzalez 1=Demonstrate adherence to instructed precautions during ADL tasks. 2=Patient will verbalize/demonstrate understanding of assistive devices/ modifications for ADL. 3=Patient will improve strength/tolerance for activity to enable patient to perform ADL's. OT Education/Plan Problem List/Assessment Assessment: Decreased Activ Tolerance, Decreased UE Strength, Dependent Transfers, Impaired Funct Balance, Impaired Self-Care Skills Pt would benefit from skilled OT to increase his independence in basic self car to allow him to safely return home and to decrease caregiver burden Discharge Recommendations Plan/Recommendations: Continue POC Barriers to Progress pain management, fear Target Placement home Treatment Plan/Plan of Care Patient would benefit from OT for education, treatment and training to promote independence in ADL's, mobility, safety and/or upper extremity function for ADL' s. Plan of Care: ADL Retraining, Functional Mobility, Group Exercise/Act as Ind ( activity tolerance, exercise, education, funct mobility), UE Funct Exercise/Act , UE Neuromus Re-Ed/Coord Treatment Duration: Jan 06, 2017 Frequency: Twice Daily (5-6 times a week) Estimated Hrs Per Day: 1.5 hours per day Agreement: Yes Rehab Potential: Fair Time/GCodes Start Time: 11:30 Stop Time: 13:55 Total Time Billed (hr/min): 95 Billed Treatment Time visit x 2, 11:30 to 11:50, 12:40 to 1355 (co-tx with PT from 1345 to 1355) Evaluation moderate intensity 20 minutes, ADL 75 minutes JOSH DELONG OT Dec 07, 2016 14:26
--- NOTE | 2016-12-07 14:45 | ST Cognitive Linguistic Eval ---
Speech Evaluation-General Medical Diagnosis right intertrochantric femur fracture Onset Date: Dec 04, 2016 Therapy Diagnosis Therapy Diagnosis: Mild to Moderate Cognitive Impairment Precautions Precautions/Isolations: Standard Precautions Referral Referring Physician: Dr. Mayo Hannon Reason for Referral: Evaluation/Treatment Cognitive Evaluation Medical History Pertinent Medical History: Arthritis, CAD, COPD, GERD, HTN, Smoking Reviewed History: Yes Social History Current Living Status: Alone Speech PLF-Current Status Prior Level of Function The patient denied challenges with speech, language, or cognition prior to or throughout his recent admission. Subjective The patient was recently admitted to [facility] with a right hip fracture. The patient greeted the clinician and was agreeable to participation in the cognitive evaluation. Language Eval: Auditory Comprehends Simple Yes/No Ques: Functional Indent/Objects [place]: Functional Ident/Pics in [place]: Functional Follows 1-Step Commands: Functional Follows Complex Directions: Mild Follows General Conversations: Mild Language Eval: Verbal Language Completes Spontaneous Greeting: Functional Produces Auto, Serial Info: Functional Imitates Simple Words/Phrases: Functional Word Finding: Mild Requests Basic Needs: Mild States Basic Personal Info: Functional Expresses Complex Ideas: Mild Cognitive Patient Orientation The patient was oriented to month, day, date, and year with the use of an external aid. Objective Cognitive Domain Attention: Moderate Memory: Moderate Problem Solving: Moderate Executive Functions: Moderate Objective Impression The patient demonstrated a mild to moderate cognitive impairment, most notably in the areas of problem solving and executive functioning. The patient displayed a moderate delay in responses and required moderate verbal prompting by the clinician (repetition of instruction). The patient reported he wears glasses and does not wear hearing aids, however, experiences reducing hearing in the left ear. Communication/Social Cognition Comprehension: 4 Expression: 4 Social Interaction: 2 Problem Solvin Memory: 3 Speech Patient Assess Expression of Ideas/Wants: Exhibits (3) Understanding [place] Content: Usually Understands (3) Brief Interview-Mental Status: Yes Repetition of Three Words: Three (3) Temporal Orientation: Year: Correct (3) Temporal Orientation: Month: Accurate within 5 days(2) Temporal Orientation: Day: Correct (1) Recall : Wear to say "Sock": Yes,after cueing (1) Recall : Color: Yes, after cueing (1) Recall : Bed: Yes,after cueing (1) Speech Short Term Goals Short Term Goals Short Term Goals 1. The patient will recall and demonstrate two functional memory strategies with 90% accuracy. 2. The patient will sequence ADL's with 80% accuracy, independently. 3. The patient will display 80% accuracy with structured word finding tasks with mild clinician verbal prompting. Time Frame-STG: One Week Speech Belt And Link Shop Supervisor Goals Belt And Link Shop Supervisor Goals 1. The patient will demonstrate improved cognitive skills for increased function and safety with ADL's. Time Frame: Two Weeks Speech-Plan Treatment Plan Speech Therapy Treatment Plan: Continue Plan of Care Continue skilled speech pathology to focus on functional problem solving and communication. Treatment Duration: Nov 22, 2017 Frequency: Modified Program (IRF) (Four to Five time per Day) Estimated Hrs Per Day: .5 hour per day Rehab Potential: Guarded Safety Risks/Education Teaching Recipient: Patient Teaching Methods: Discussion Response to Teaching: Verbalize Understanding Education Topics Provided: Results, Plan of Care, Recommendations Time Speech Therapy Time In: 11:50 Speech Therapy Time Out: 12:05 Total Billed Time: 15 Billed Treatment Time 1, NANETTE KAUFMAN Dec 07, 2016 14:45
[2016-12-07] MEDS: KCL 10 MEQ TAB (MICRO K) PO SCH ×2 (15:24→18:40)
[2016-12-07] MEDS: CYCLOBENZAPRINE 10 MG (FLEXERIL) TAB PO SCH ×2 (15:24→20:26)
[2016-12-07] MEDS: HYDROcodone/APAP 10 MG/325 MG (LORTAB) TAB PO PRN (15:27)
[2016-12-07 18:33] VITALS: BP 153/82
[2016-12-07] MEDS: RT-ALBUTEROL/IPRATROPIUM 3 ML (DUONEB) VIAL INH SCH ×2 (19:07→22:44)
[2016-12-07] MEDS: SIMvastatin 20 MG (ZOCOR) TAB PO SCH (20:26)
[2016-12-07] MEDS: METOCLOPRAMIDE 10 MG (REGLAN) TAB PO SCH (20:26)
[2016-12-07] MEDS: SENNA W/DOCUSATE (SENOKOT S) TABLET PO SCH (20:26)
[2016-12-07] MEDS: LACTULOSE SYRUP 10GM/15ML (ENULOSE) 30ML UDC PO SCH (20:29)
[2016-12-08] MEDS: RT-ALBUTEROL/IPRATROPIUM 3 ML (DUONEB) VIAL INH SCH ×6 (02:08→21:51)
[2016-12-08 06:15] VITALS: BP 126/72
[2016-12-08] MEDS: KCL 10 MEQ TAB (MICRO K) PO SCH ×3 (06:16→16:20)
[2016-12-08] MEDS: HYDROcodone/APAP 10 MG/325 MG (LORTAB) TAB PO PRN ×3 (06:17→21:10)
[2016-12-08] MEDS: lisINopril 10 MG (PRINIVIL) TAB PO SCH (08:20)
[2016-12-08] MEDS: METOCLOPRAMIDE 10 MG (REGLAN) TAB PO SCH ×2 (08:20→21:07)
[2016-12-08] MEDS: CYCLOBENZAPRINE 10 MG (FLEXERIL) TAB PO SCH ×3 (08:20→21:07)
[2016-12-08] MEDS: amLODIPine 5 MG (NORVASC) TAB PO SCH (08:20)
[2016-12-08] MEDS: SENNA W/DOCUSATE (SENOKOT S) TABLET PO SCH ×2 (08:22→21:07)
[2016-12-08] MEDS: FLUTICASONE NASAL SPRAY (FLONASE) 16 GM BTL NS SCH (08:26)
[2016-12-08] MEDS: LACTULOSE SYRUP 10GM/15ML (ENULOSE) 30ML UDC PO SCH ×2 (08:33→21:08)
--- NOTE | 2016-12-08 08:36 | PM&R Post Admission Assessment ---
Post Admission Physician Asses The preadmission screen agrees with the post admission assessment that the patient is a good candidate for inpatient rehabilitation. The patient will have a comprehensive program of inpatient rehabilitation with a goal of maximizing level of functional independence prior to discharge home with family and HHC. The patient will have PT/OT ninety minutes per day, each discipline, five days a week for gait, strengthening, conditioning, balance, ADLs, any patient/family/caregiver training as necessary. Speech therapy to do cognitive assessment and treat as indicated. Rehabilitation nursing to assist with bowel, bladder, skin, wound care, medication administration, pain management. Cp Bleacher Operator to assist with discharge planning, community reentry. SCD's for DVT prophylaxis. He appears to be well motivated to participate in three hours of therapy a day. He should be able to tolerate three hours of therapy a day from a medical and orthopedic standpoint. He should benefit from the three hours of therapy a day. He has a reasonable discharge plan, reasonable discharge rehabilitation goals and a supportive family. He has various comorbidities that need to be closely monitored with medications and treatments adjusted on a daily basis as needed. These include: Chronic back pain HTN Postop anemia Electrolyte disturbance Gerd Copd tobaccoism Barriers to discharge for this patient who had been independent prior to this are for him to be modified independent to supervision for ADLs and mobility skills prior to discharge home with [family], so as to lessen the burden of the caregivers. Risks for this patient include: 1. Fall 2. Fracture 3. DVT 4. Pulmonary embolism 5. Wound infection 6. Skin breakdown 7. Contractures 8. Poorly controlled pain 9. Urinary retention 10. UTI 11. Respiratory infection 12. Aspiration 13, Poorly controlled HTn 14. worsening electrolyte disturbance 15. Worsening postop Anemia Estimated Length of Stay: 14 days Prognosis: Rehab prognosis appears good for goal of discharge home with family with HHC modified independent to supervision for ADLs and mobility skills. MAYKEL HUERTAS MD Dec 08, 2016 08:36
--- NOTE | 2016-12-08 08:49 | Individualized Plan of Care ---
Individualized Plan of Care Rehab Nursing IPOC Order Admission Date Dec 07, 2016 at 11:11 Current Orders Orders Pt Evaluate/Treat Request (12/07/16 10:27) Weight Bearing Status (12/07/16 10:27) Request Ot Evaluate & Treat (12/07/16 10:27) Admission-Acute Rehab Unit (12/07/16 11:15) Admission Arrival Bed Request (12/07/16 11:34) Code/Resuscitation (12/07/16 11:31) Ambulate TID (12/07/16 11:31) Fluid Restriction (12/07/16 11:31) Incentive Spirometry (Nursing) Q2H (12/07/16 11:31) Initiate Admission Nursing Pro .admission (12/07/16 11:31) Notify Physician: (12/07/16 11:31) Nursing Communication (Patient (12/07/16 11:31) Oxygen-Administer 07,19 (12/07/16 11:31) Sequential Compression Device 08,20 (12/07/16 11:31) Darvin Hose 09,21 (12/07/16 11:31) Turn, Cough, And Deep Breathe (12/07/16 11:31) Up With Assistance As Tolerate (12/07/16 11:31) Weight Bearing Status (12/07/16 11:31) General/Regular (12/07/16 Lunch) Albuterol/Ipra Inhalation Soln (Duoneb I (12/07/16 11:45) Cyclobenzaprine Tablet (Flexeril Tablet) (12/07/16 13:00) Fluticasone Nasal [place] (Flonase Nasal S (12/08/16 09:00) Furosemide Tablet (Lasix Tablet) (12/07/16 11:45) Hydrocodone/Apap 10/325 Tablet (Lortab 1 (12/07/16 11:45) Lactated Ringers (Lr 1000 Ml Iv Solution (12/07/16 11:45) Lactulose Oral Solution (Enulose Oral So (12/07/16 21:00) Lisinopril Tablet (Zestril Tablet) (12/08/16 09:00) Magnesium 1 Gm/100 Ml Ivpb (Magnesium [place] (12/08/16 09:15) Metoclopramide Tablet (Reglan Tablet) (12/07/16 21:00) Ondansetron Injection (Zofran Injectio (12/07/16 11:45) Potassium Chloride (Tablet) (Klor Con Ta (12/07/16 12:00) Senna S Tablet (Senokot S Tablet) (12/07/16 21:00) Simvastatin Tablet (Zocor Tablet) (12/07/16 21:00) Sodium Chloride Flush (Catheter Flush Sy (12/07/16 11:45) Amlodipine Tablet (Norvasc Tablet) (12/08/16 09:00) Hydralazine Tablet (Apresoline Tablet) (12/07/16 11:45) Tramadol Tablet (Ultram Tablet) (12/07/16 11:45) Case Management Consult (12/07/16 11:31) Consult Physician (12/07/16 11:31) Irf Req Eval/Acute Rehab (12/07/16 11:31) Mat Protocol-Rt Rfs (12/07/16 11:31) Occupational Therapy Order (12/07/16 11:31) Physical Therapy [place] (12/07/16 11:31) Rt Request For Service (12/07/16 11:31) Request Ot Evaluate & Treat (12/07/16 11:31) Svn Sm Volume Nebulizer Rt-Rfs (12/07/16 11:31) Social Service (12/07/16 11:31) Svn Sm Volume Nebulizer Rt-Rfs (12/07/16 11:31) Potassium Cl 10meq/50ml Ivpb (Kcl 10 Meq (12/07/16 12:00) Albuterol/Ipra Inhalation Soln (Duoneb I (12/07/16 18:00) Svn Sm Volume Nebulizer Rt-Rfs (12/07/16 13:37) Patient Visit (12/07/16 ) Speech Sound Lang Comp (12/07/16 ) Admission-Acute Rehab Unit (12/07/16 14:48) Vital Signs: Routine 08,16,00 (12/07/16 14:48) Precautions (Aru) (12/07/16 14:48) Weekly Weight (Lbs) WEEK (12/07/16 14:48) Patient Visit (12/07/16 ) Pt Eval Moderate Complexity (12/07/16 ) Functional Activities, Ea 15 (12/07/16 ) Patient Visit (12/07/16 ) Exercise Therap, Ea 15 Min (12/07/16 ) Functional Activities, Ea 15 (12/07/16 ) Diclofenac 1% Gel (Voltaren 1% Gel) (12/08/16 09:00) Pantoprazole Tablet (Protonix Tablet) (12/09/16 07:00) Other Nursing Orders: monitor for opioid induced constipation PT IPOC Problem List: Activity Tolerance, Functional Strength, Safety, Balance, Gait, Transfer, Bed Mobility, ROM Treatment Plan: Continue Plan of Care Bed Mobility, Education, Functional Activity Gonzalez, Functional Strength, Group Therapy, Gait, Safety, Therapeutic Exercise, Transfers Treatment Duration: Jan 07, 2017 Frequency: At least 5-7 days/Wk (IRF) Estimated Hrs Per Day: 1.5 hours per day OT IPOC Problems: Decreased Activ Tolerance, Decreased UE Strength, Dependent Transfers , Impaired Funct Balance, Impaired Self-Care Skills OT Problems Pt would benefit from skilled OT to increase his independence in basic self car to allow him to safely return home and to decrease caregiver burden Plan of Care: ADL Retraining, Functional Mobility, Group Exercise/Act as Ind ( activity tolerance, exercise, education, funct mobility), UE Funct Exercise/Act , UE Neuromus Re-Ed/Coord Treatment Duration: Jan 06, 2017 Frequency: Twice Daily (5-6 times a week) Estimated Hrs Per Day: 1.[address] IPOC Speech Therapy Treatment Plan: Continue Plan of Care Treatment Duration: Nov 22, 2017 Frequency: Modified Program (IRF) (Four to Five time per Day) Estimated Hrs Per Day: .5 hour per day Physician IPOC Medical Issues being managed closely and that require the 24 hour availability of a physician: Chronic back pain,Postop anemia, post op electrolyte disturbanace,GERD,HTN,Tobaccoism Medical Issues: Bowel/Bladder Function, DVT Prophylaxis, Falls Precautions, Fluid/Electrolyte/Nutrition Balance, Infection Protection, Pain Management, Wound Care, Other (List) (as per above) Brief Synthesis of Preadmission Screen, Post-Admission Evaluation, and Therapy Evaluations: 66 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
[2016-12-08] MEDS ORDERED: MAGNESIUM 1 GM/100 ML IVPB 100 ML IV NR (09:15)
--- NOTE | 2016-12-08 09:18 | HISTORY AND PHYSICAL ---
DATE OF ADMISSION: 12/07/2016 CHIEF COMPLAINT: Difficulty with walking. HISTORY OF PRESENT ILLNESS: The patient is a 66-year-old male who was admitted to [facility] after he fell at home, sustaining a right hip fracture. He had repair with orthopedics and was followed by hospitalist service. He had significant postoperative anemia with hemoglobin 6.3 on postoperative day 2. He had 2 units packed red blood cells transfused . Significant hyponatremia was noted as well as hypokalemia. The patient was provided with fluid restriction and K replacement. Prior level of function :The patient had been independent prior to this. Retired and living in [place], [place] alone. He is , but has supportive family nearby, two daughters and grandchildren. His serum sodium on 12/07 was 130, potassium 2.7, chloride 97, BUN 2, creatinine 0.49, creatinine kinase 401. Serum albumin 3, total protein 5.3. H\T\H was 9.8/28, WBC 7.3, platelet count 207,000. Currently,the patient requires assistance for his ADLs and mobility skills and is referred to IRU for inpatient orthopedic rehabilitation. HE is max assist of two for transfers, nonambulatory at this time. He is set up for eating, upper body dressing, dependent for lower body dressing. He is right-hand dominant.He has some mild meomry loss PAST MEDICAL HISTORY: 1. Arthritis. 2. Coronary artery disease. 3. COPD. 4. GERD. 5. Hypertension. 6. Tobaccoism. 7. Scoliosis. 8. Presbycusis. 9. Low back pain. PAST SURGICAL HISTORY: 1. CABG x3 with stent. 2. IM nail for right hip fracture 12/04/2016, weight-bearing as tolerated. ALLERGIES: No known medication allergies. FAMILY HISTORY: Noncontributory. SOCIAL HISTORY: Essentially as per above. Hx of etoh use.Denies recent memory loss REVIEW OF SYSTEMS: Ten-point review of systems significant for hip pain. MEDICATIONS: 1. Flonase 2 sprays daily. 2. Lisinopril 10 mg p.o. daily. 3. Amlodipine 5 mg p.o. daily. 4. Lactulose 10 grams p.o. b.i.d. 5. Reglan 10 mg p.o. b.i.d. 6. Senokot-S 2 tablets p.o. b.i.d. 7. Simvastatin 20 mg p.o. at bedtime. 8. DuoNeb treatments q.4 hours. 9. Flexeril 10 mg p.o. t.i.d. 10. KCL 10 mEq p.o. t.i.d. with meals. 11. KCL IV as well. 12. DuoNeb treatments q.2 hours p.r.n. shortness of breath. 13. Furosemide 40 mg p.o. daily p.r.n. swelling. 14. Lortab 10, two tablets p.o. q.6 h. p.r.n. for severe pain. 15. Apresoline 25 mg p.o. q.8 hours p.r.n. systolic blood pressure more than 170. 16. Tramadol 50 mg p.o. q.6 hours p.r.n. moderate pain. PHYSICAL EXAMINATION: Physical examination is significant for a male, appearing his stated age, alert and oriented, lying in bed in no acute distress. VITAL SIGNS: Within normal limits. He is afebrile, blood pressure 109/64, respirations 18, pulse 90, BMI 18.8. HEENT: Vision, speech, hearing is functional. No oral lesion is noted. NECK: Supple without mass. HEART: Regular rhythm. LUNGS: Clear. ABDOMEN: Soft, nontender. Bowel sounds present. EXTREMITIES: Trace edema both ankles. No calf tenderness. MUSCULOSKELETAL: He has functional active range of motion in both upper extremities and left lower extremity. NEUROLOGIC: Sensation is mildly impaired in the feet. Coordination diminished in the lower limb. He is reported to be continent of bowel and bladder. Strength in the lower extremities is 3-/5 in the right knee, hip flexion not tested due to pain. Ankle dorsi and plantar flexion 3-/5, left knee flexion and extension 3/5, hip flexion on the left the patient refused, ankle dorsi plantar flexion 3/5. Strength upper extremities 4/5. IMPRESSION: 1. Ambulatory dysfunction secondary to a fall resulting in a displaced right intertrochanteric hip fracture, status post IM nailing 12/04/2016 Dr. Bass. 2. Postoperative anemia, status post transfusion 2 units packed red blood cells. 3. Hyponatremia on fluid restriction. 4. Hypokalemia, on replacement. 5. COPD, stable. 6. Hypercholesterolemia. 7. Hypertension, controlled with medication. 8. GERD, on medications. 9. Mild presbycusis. 10. Coronary artery disease, status post CABG, remote. 11. Nicotine dependence, currently abstaining. 12. Scoliosis. 13. Mild cognitive impairment PLAN: The patient will have a comprehensive program of inpatient orthopedic rehabilitation with goal of maximizing level of functional [place] prior to discharge home with home health care and family to assist as needed. The patient will have PT/OT 90 minutes per day, each discipline, 5 days week for gait, strengthening, conditioning, balance, ADLs. Any patient/family/caregiver training necessary, any adaptive equipment and training necessary. Speech therapy to do cognitive assessment and treat as indicated 3 to 5 times a week for 30-45 minutes per day for 2 weeks. Rehabilitation nursing to assist with bowel, bladder, skin, wound care, medication administration, pain management. patient services rep assist with discharge planning, community reentry. Follow-up with Dr. Bass and hospitalist service as per their schedules. Follow-up labs. Continue current medications and IV supplements and fluid restriction. ESTIMATED LENGTH OF STAY: 2 weeks. PROGNOSIS: Rehab prognosis appears good for goal of discharging to home modified independent to supervision for ADLs and mobility skills. DIET: Regular with fluid restriction. CODE STATUS: Full code Job ID: [id number] Dictated Date: 12/07/2016 14:48:54 Piercing Specialist Date: 12/08/2016 08:52:13/pati BRUNO
[2016-12-08] MEDS: DICLOFENAC 1% GEL 100 GM (VOLTAREN) TUBE TOP SCH ×4 (10:01→21:07)
--- NOTE | 2016-12-08 10:51 | Occupational Ther Daily Note ---
OT Current Status-Daily Note Subjective Pt seen in room, up in bed, agreeable to OT. No pain mentioned but he has obvious discomfort with moving R leg. Appearance Alert, cooperative Mental Status/Objective Functional [place] Measure 0=Not Assessed/NA 4=Minimal Assistance 1=Total Assistance 5=Supervision or Setup 2=Maximal Assistance 6=Modified [place] 3=Moderate Assistance 7=Complete [place] ADL-Treatment Functional [place] Measure 0=Not Assessed/NA 4=Minimal Assistance 1=Total Assistance 5=Supervision or Setup 2=Maximal Assistance 6=Modified [place] 3=Moderate Assistance 7=Complete IndependenceIRFPAI Quality Coding Scale 6 Independent with activity with or without an assistive device 5 Patient requires set up or clean up by helper. Patient completes activity by themselves 4 Supervision or touching assist (CGA). [place] provide cues , steadying assist 3 The helper provides less than half the effort to complete the activity 2 The helper provides more than half the effort to complete the activity 1 Dependent. The helper does all the effort to complete an activity 7 Patient refused to complete or attempt activity 9 The patient did not perform the activity before the current illness or injury 88 Not attempted due to Medical conditions or safety concerns Grooming (FIM): 5 (setup, w/c level at sink) Oral Hygiene (QC): 5 Bathing (FIM): 5 (Able to wash and dry all parts, seated EOB. Encouragement and cues to lean to side to wash bottom. ) Upper Body (FIM): 5 (setup, seated EOB) Lower Body Dressing (FIM): 3 (Pt was able to get both feet into pants legs, pull pants up to thighs and stand with mod assist for OT to pull pants up over hips. Could get sock over toes on L foot but not pull sock up, due to SOA. Unable to do sock on R foot. ) Toileting (FIM): 1 (per nursing) Toileting Hygiene (QC): 1 Transfers (B, C, W/C) (FIM): 1 (Two people needed to transfer him from bed to w /c. Mod assist to stand but difficulty weight bearing, weight shifting and moving feet to turn, FWW. ) Toilet/Commode Transfer (FIM): 1 (per nursing) Toilet Transfer (QC): 1 Pt left u in recliner, all needs met, visiting with liyah OT Short Term Goals Short Term Goals Time Frame: Dec 16, 2016 Lower Body Dressing(FIM): 3 Toilet/Commode Transfer(FIM): 3 Shower Transfer(FIM): 3 1=Demonstrate adherence to instructed precautions during ADL tasks. 2=Patient will verbalize/demonstrate understanding of assistive devices/ modifications for ADL. 3=Patient will improve strength/tolerance for activity to enable patient to perform ADL's. OT Building Inspector Goals [facility]ci Goals Time Frame: Jan 06, 2017 Eating (FIM): 6 Eating (QC): 6 Groomin Oral Hygiene (QC): 6 Bathing(FIM): 5 Shower/Bathe Self (QC): 5 Upper Body Dressing(FIM): 6 Upper Body Dressing (QC): 6 Lower Body Dressing(FIM): 6 Lower Body Dressing (QC): 6 On/Off Footwear (QC): 6 Toileting(FIM): 6 Toileting Hygiene (QC): 6 Toilet/Commode Transfer(FIM): 6 Toilet/Commode Transfer (QC): 6 Shower Transfer(FIM): 5 Additional Goals: 1-Demonstrate ADL Tasks, 2-Verbalize Understanding, 3- ImproveStrength/Gonzalez 1=Demonstrate adherence to instructed precautions during ADL tasks. 2=Patient will verbalize/demonstrate understanding of assistive devices/ modifications for ADL. 3=Patient will improve strength/tolerance for activity to enable patient to perform ADL's. OT Education/Plan Problem List/Assessment Pt would benefit from skilled OT to increase his independence in basic self car to allow him to safely return home and to decrease caregiver burden Discharge Recommendations Plan/Recommendations: Continue POC Treatment Plan/Plan of Care Patient would benefit from OT for education, treatment and training to promote independence in ADL's, mobility, safety and/or upper extremity function for ADL' s. Plan of Care: ADL Retraining, Functional Mobility, Group Exercise/Act as Ind ( activity tolerance, exercise, education, funct mobility), UE Funct Exercise/Act , UE Neuromus Re-Ed/Coord Treatment Duration: Jan 06, 2017 Frequency: Twice Daily (5-6 times a week) Estimated Hrs Per Day: 1.5 hours per day Agreement: Yes Rehab Potential: Guarded Time/GCodes Start Time: 09:30 Stop Time: 10:30 Total Time Billed (hr/min): 60 Billed Treatment Time visit, 60 minutes ADL JOSH DELONG OT Dec 08, 2016 10:51
--- NOTE | 2016-12-08 11:46 | Speech Therapy Daily Note ---
Speech Daily Progress Note Subjective Date Seen by Provider: Dec 08, 2016 Time Seen by Provider: 08:45 The patient was sitting upright in bed upon entrance. The patient greeted the clinician upon entrance and was agreeable to participation in the cognitive treatment session. Per patient, "I think I'm still a little asleep." Objective A standardized cognitive screen was provided on this date ([place] Cognitive Assessment- MoCA). The results are as follows: - Visuospatial/Executive Function: The patient was unable to follow prompts and directions to complete trail-making activity and cube copying. The patient was able to complete the contour and numbers of the clock, however, could not place the accurate time. - Naming: The patient was able to name three of three black and white photographs, independently. - Memory: The patient was able to recall three of five single words immediately and three of five single words following a five minute delay. - Attention: The was unable to state three digits in backwards order, however, could state five digits forward and identify a specific letter in a string of letters. - Language: The patient demonstrated poor word finding, however, demonstrated adequate repetition. - Abstraction: The patient was able to identify a similarity between two items. - Orientation: The patient was not oriented to date, however, could state month , day of week, and location. - The patient demonstrated a score of +22/30 which correlates to a mild/mild to moderate cognitive impairment. Assessment Assessment Current Status: Fair Progress Treatment Plan Continue Plan of Care Communication Comprehension: 4 Expression: 4 Social Cognition Social Interaction: 3 Problem Solvin Memory: 3 Speech Short Term Goals Short Term Goals Short Term Goals 1. The patient will recall and demonstrate two functional memory strategies with 90% accuracy. 2. The patient will sequence ADL's with 80% accuracy, independently. 3. The patient will display 80% accuracy with structured word finding tasks with mild clinician verbal prompting. Time Frame-STG: One Week Speech Fpc Goals Fpc Goals 1. The patient will demonstrate improved cognitive skills for increased function and safety with ADL's. Time Frame: Two Weeks Speech-Plan Treatment Plan Speech Therapy Treatment Plan: Continue Plan of Care Continue skilled speech pathology to target functional memory strategies and sequencing of ADL's. Treatment Duration: Nov 22, 2017 Frequency: Modified Program (IRF) (Four to Five time per Day) Estimated Hrs Per Day: .5 hour per day Rehab Potential: Guarded Safety Risks/Education Teaching Recipient: Patient Teaching Methods: Discussion Education Topics Provided: Results, Plan of Care Time Speech Therapy Time In: 08:45 Speech Therapy Time Out: 09:15 Total Billed Time: 30 Billed Treatment Time 1ESTELA ELIZ[address] ST Dec 08, 2016 11:46
--- NOTE | 2016-12-08 13:03 | Physical Therapy Daily Note ---
PT Daily Note-Current Subjective Pt sitting in [facility] upon arrival. Pt reports pain of 10/10 in Low Back and R hip. Pt agrees to try PT. Pain Numeric Pain Scale: 10-Worst Possible Pain Location: Right, Incisional Location Body Site: Hip Pain Description: Ache, Tightness Mental Status Patient Orientation: Person, Place, Situation Transfers Functional [place] Measure 0=Not Assessed/NA 4=Minimal Assistance 1=Total Assistance 5=Supervision or Setup 2=Maximal Assistance 6=Modified [place] 3=Moderate Assistance 7=Complete IndependenceIRFPAI Quality Coding Scale 6 Independent with activity with or without an assistive device 5 Patient requires set up or clean up by helper. Patient completes activity by themselves 4 Supervision or touching assist (CGA). [place] provide cues , steadying assist 3 The helper provides less than half the effort to complete the activity 2 The helper provides more than half the effort to complete the activity 1 Dependent. The helper does all the effort to complete an activity 7 Patient refused to complete or attempt activity 9 The patient did not perform the activity before the current illness or injury 88 Not attempted due to Medical conditions or safety concerns Scootin Sit to/from Stand: 3 Sit to Stand (QC): 3 Weight Bearing Weight Bearing Restriction: Full Weight Bearing Location Restriction: LE Bilateral Wheelchair Training Does the Pt Use a Wheelchair?: Yes Wheelchair Distance: 3=150 ft Distance: 150' Wheelchair Level of Assist: 5 Wheel 50 ft with 2 turns (QC): 5 Wheel 150 ft (QC): 5 Type of Wheelchair: Manual Exercises Seated Therapy Exercises: Ankle pumps, Sit to stand, Long arc quads, Hip flexion, Kicking activity Seated Reps: 15 Treatments Pt discussed lack of pain management at this point and ask when next pain med could be given, checked with nursing. Pt propelled [facility] from room to Therapy Gym. Pt then completed Seated Ex in [facility] before practicing Sit to Stands at FWW. Pt was unable to complete standing so PT moved pt to //bars to try pulling to stand instead of pushing. Pt completed 5 sit to stands at //bars. Pt then propelled [facility] back to room to rest and prepare for lunch. Pt has all needs met at end of tx. Assessment Current Status: Fair Progress Pt doesn't seem to be fully motivated to try to stand at this point. PT encourages pt to try to improve WB. PT Long-Term Goals Long-Term Goals PT Float Operator Goals Time Frame: Jan 07, 2017 Transfers (B,C,W/C) (FIM): 5 Sit to Lying (QC): 4 Lying-Sitting on Side/Bed(QC): 4 Sit to Stand (QC): 4 Rollin Roll Left to Right (QC): 4 Chair/Cmv-cv-[place] Xfer(QC): 4 Car Transfer (QC): 4 Does the Patient Walk: No and Walking Goal IS indicated Gait (FIM): 1 Gait distance (FIM): 1=up to 49 ft (45) Distance: 45' Walk 10 feet (QC): 4 Walk 10ft-Uneven Surface(QC): 4 Walk 50ft with 2 Turns (QC): 9 Walk 150 ft (QC): 9 Gait Level of Assist: 5 Gait Assistive Device: FWW # of Steps: 1 1 Step (curb) (QC): 4 4 Steps (QC): 4 12 Steps (QC): 9 Stairs Level Of Assist: 4 Picking up an Object (QC): 4 PT Plan Problem List Problem List: Activity Tolerance, Functional Strength, Safety, Balance, Gait, Transfer, Bed Mobility, ROM Treatment/Plan Treatment Plan: Continue Plan of Care Treatment Plan: Bed Mobility, Education, Functional Activity Gonzalez, Functional Strength, Group Therapy, Gait, Safety, Therapeutic Exercise, Transfers Treatment Duration: Jan 07, 2017 Frequency: At least 5-7 days/Wk (IRF) Estimated Hrs Per Day: 1.5 hours per day Patient and/or Family Agrees t: Yes Safety Risks/Education Patient Education: Transfer Techniques, Correct Positioning, W/C Management, Safety Issues Teaching Recipient: Patient Teaching Methods: Discussion Response to Teaching: Reinforcement Needed Time/GCodes Time In: 1030 Time Out: 1115 Total Billed Treatment Time: 45 Total Billed Treatment visit, [facility] (20m), EX (15m) & FA (10m) CATALINA GRAHAM PTA Dec 08, 2016 13:03
--- NOTE | 2016-12-08 15:21 | Occupational Ther Daily Note ---
OT Current Status-Daily Note Subjective Pt seen in room, up in bed, agreeable to OT. Appearance Alert, cooperative Mental Status/Objective Functional [place] Measure 0=Not Assessed/NA 4=Minimal Assistance 1=Total Assistance 5=Supervision or Setup 2=Maximal Assistance 6=Modified [place] 3=Moderate Assistance 7=Complete [place] ADL-Treatment Functional [place] Measure 0=Not Assessed/NA 4=Minimal Assistance 1=Total Assistance 5=Supervision or Setup 2=Maximal Assistance 6=Modified [place] 3=Moderate Assistance 7=Complete IndependenceIRFPAI Quality Coding Scale 6 Independent with activity with or without an assistive device 5 Patient requires set up or clean up by helper. Patient completes activity by themselves 4 Supervision or touching assist (CGA). [place] provide cues , steadying assist 3 The helper provides less than half the effort to complete the activity 2 The helper provides more than half the effort to complete the activity 1 Dependent. The helper does all the effort to complete an activity 7 Patient refused to complete or attempt activity 9 The patient did not perform the activity before the current illness or injury 88 Not attempted due to Medical conditions or safety concerns Other Treatment Pt education theraband exercises to increase arm strength to help with transfers. Pt taught three different exercises and did 15 reps each one. He was able to track reps and switch hands without difficulty. Pt encouraged to do these in his room and he was able to recall at least two of the exercises. Pt left up in bed, all needs met. OT Short Term Goals Short Term Goals Time Frame: Dec 16, 2016 Lower Body Dressing(FIM): 3 Toilet/Commode Transfer(FIM): 3 Shower Transfer(FIM): 3 1=Demonstrate adherence to instructed precautions during ADL tasks. 2=Patient will verbalize/demonstrate understanding of assistive devices/ modifications for ADL. 3=Patient will improve strength/tolerance for activity to enable patient to perform ADL's. OT Retirement Goals Retirement Goals Time Frame: Jan 06, 2017 Eating (FIM): 6 Eating (QC): 6 Groomin Oral Hygiene (QC): 6 Bathing(FIM): 5 Shower/Bathe Self (QC): 5 Upper Body Dressing(FIM): 6 Upper Body Dressing (QC): 6 Lower Body Dressing(FIM): 6 Lower Body Dressing (QC): 6 On/Off Footwear (QC): 6 Toileting(FIM): 6 Toileting Hygiene (QC): 6 Toilet/Commode Transfer(FIM): 6 Toilet/Commode Transfer (QC): 6 Shower Transfer(FIM): 5 Additional Goals: 1-Demonstrate ADL Tasks, 2-Verbalize Understanding, 3- ImproveStrength/Gonzalez 1=Demonstrate adherence to instructed precautions during ADL tasks. 2=Patient will verbalize/demonstrate understanding of assistive devices/ modifications for ADL. 3=Patient will improve strength/tolerance for activity to enable patient to perform ADL's. OT Education/Plan Problem List/Assessment Pt would benefit from skilled OT to increase his independence in basic self car to allow him to safely return home and to decrease caregiver burden Discharge Recommendations Plan/Recommendations: Continue POC Treatment Plan/Plan of Care Patient would benefit from OT for education, treatment and training to promote independence in ADL's, mobility, safety and/or upper extremity function for ADL' s. Plan of Care: ADL Retraining, Functional Mobility, Group Exercise/Act as Ind ( activity tolerance, exercise, education, funct mobility), UE Funct Exercise/Act , UE Neuromus Re-Ed/Coord Treatment Duration: Jan 06, 2017 Frequency: Twice Daily (5-6 times a week) Estimated Hrs Per Day: 1.5 hours per day Agreement: Yes Rehab Potential: Guarded Time/GCodes Start Time: 14:45 Stop Time: 15:00 Total Time Billed (hr/min): 15 Billed Treatment Time visit, 15 minutes exercise JOSH DELONG OT Dec 08, 2016 15:21
--- NOTE | 2016-12-08 15:55 | Physical Therapy Daily Note ---
PT Daily Note-Current Subjective Pt sitting in [facility] upon arrival. Pt agrees to PT but reports not sure how much he can do during tx due to pain. Pain Numeric Pain Scale: 10-Worst Possible Pain Location: Right, Lower Location Body Site: Back Pain Description: Ache, Tightness Mental Status Patient Orientation: Person, Place, Situation Transfers Functional [place] Measure 0=Not Assessed/NA 4=Minimal Assistance 1=Total Assistance 5=Supervision or Setup 2=Maximal Assistance 6=Modified [place] 3=Moderate Assistance 7=Complete IndependenceIRFPAI Quality Coding Scale 6 Independent with activity with or without an assistive device 5 Patient requires set up or clean up by helper. Patient completes activity by themselves 4 Supervision or touching assist (CGA). [place] provide cues , steadying assist 3 The helper provides less than half the effort to complete the activity 2 The helper provides more than half the effort to complete the activity 1 Dependent. The helper does all the effort to complete an activity 7 Patient refused to complete or attempt activity 9 The patient did not perform the activity before the current illness or injury 88 Not attempted due to Medical conditions or safety concerns Scootin Sit to/from Stand: 4 Sit to Stand (QC): 4 Weight Bearing Weight Bearing Restriction: Full Weight Bearing Location Restriction: LE Bilateral Exercises Seated Therapy Exercises: Sit to stand Seated Reps: 10 Treatments Pt propels WC from room to Therapy Gym at [facility]. Pt attempts 5 sit to stands at //bars before again attempting 2 sit to stands using FWW at Min-Mod A. Pt then propels WCH back to room and SPT to Supine in bed. Pt needs assistance to aid in lifting legs into bed. Pt rests Supine at end of tx with all needs met. Assessment Current Status: Fair Progress Pt continues to have difficulty completing sit to stands and standing for very long due to pain and weakness. PT Short Term Goals Short Term Goals Wheelchair Distance: 150' PT Halfway Goals Robotics Application Engineer Goals PT Robotics Application Engineer Goals Time Frame: Jan 07, 2017 Transfers (B,C,W/C) (FIM): 5 Sit to Lying (QC): 4 Lying-Sitting on Side/Bed(QC): 4 Sit to Stand (QC): 4 Rollin Roll Left to Right (QC): 4 Chair/Kle-dq-Layrw Xfer(QC): 4 Car Transfer (QC): 4 Does the Patient Walk: No and Walking Goal IS indicated Gait (FIM): 1 Gait distance (FIM): 1=up to 49 ft (45) Distance: 45' Walk 10 feet (QC): 4 Walk 10ft-Uneven Surface(QC): 4 Walk 50ft with 2 Turns (QC): 9 Walk 150 ft (QC): 9 Gait Level of Assist: 5 Gait Assistive Device: FWW # of Steps: 1 1 Step (curb) (QC): 4 4 Steps (QC): 4 12 Steps (QC): 9 Stairs Level Of Assist: 4 Picking up an Object (QC): 4 PT Plan Problem List Problem List: Activity Tolerance, Functional Strength, Safety, Balance, Gait, Transfer, Bed Mobility, ROM Treatment/Plan Treatment Plan: Continue Plan of Care Treatment Plan: Bed Mobility, Education, Functional Activity Gonzalez, Functional Strength, Group Therapy, Gait, Safety, Therapeutic Exercise, Transfers Treatment Duration: Jan 07, 2017 Frequency: At least 5-7 days/Wk (IRF) Estimated Hrs Per Day: 1.5 hours per day Patient and/or Family Agrees t: Yes Safety Risks/Education Patient Education: Transfer Techniques, Correct Positioning, Safety Issues Teaching Recipient: Patient Teaching Methods: Discussion Response to Teaching: Verbalize Understanding Time/GCodes Time In: 1340 Time Out: 1420 Total Billed Treatment Time: 40 Total Billed Treatment visit, [facility] (15m) & EX (15m) CATALINA GRAHAM PTA Dec 08, 2016 15:55
[2016-12-08 17:49] VITALS: BP 120/78
--- NOTE | 2016-12-08 18:59 | PM & R (SOAP) Progress Note ---
Subjective Time Seen by Provider: 09:00 Subjective/Events-last exam Patient was seen in his room this AM Patient Min to mod assist for transfers Appreciate therapy tee Discussed case with RN Patient requesting rub for chronic back pain and Prevacid for GERD.ST notes mild memory loss Patient denies issue with this Did feport a fall with hit to forehead in recent past Review of Systems Gastrointestinal: Other (dyspepsia) Musculoskeletal: back pain, leg pain Neurological: Other (mild memory loss) Objective Exam Last Set of Vital Signs Vital Signs Date Time Temp Pulse Resp B/P (MAP) Pulse Ox O2 Delivery O2 Flow Rate FiO2 12/08/16 17:49 99.5 104 18 120/78 95 12/08/16 15:07 Room Air Capillary Refill : Less Than 3 Seconds I&O Bad tableGeneral: Alert, Oriented X3, Cooperative, No Acute Distress HEENT: Atraumatic, PERRLA, EOMI, Mucous Memb Moist/[place] Neck: Supple, No JVD Lungs: Clear to Auscultation Heart: Regular Rate Abdomen: Normal Bowel Sounds, Soft, No Tenderness (trace edema rt ankle) Neuro: Other (guarding rt hip generalized weakness) Psych/Mental Status: Other (Short term memory loss) Assessment/Plan Assessment Rt hip frx s/p IM nailing 12-04-16 Dr Bass Postop anemia Postop electrolyte abnormality COPD stable Tobaccoism currently absstaining Gerd Protonic ordered Chronic back pain Voltaren ordered HTN controlled Plan Continue PT/OT/ST Recheck Labs F/U with Hospitalist Team Conference held earlier today See report for full functional update and POC and MAYKEL MARTINEZ MD Dec 08, 2016 18:59
[2016-12-08] MEDS: SIMvastatin 20 MG (ZOCOR) TAB PO SCH (21:07)
[2016-12-09] MEDS: RT-ALBUTEROL/IPRATROPIUM 3 ML (DUONEB) VIAL INH SCH ×5 (02:15→19:37)
[2016-12-09 05:32] LABS: BASOPHILS % (AUTO) 1 % (0-10); EOSINOPHILS # (AUTO) 0.2 10^3/uL (0.0-0.3); EOSINOPHILS % (AUTO) 3 % (0-10); LYMPHOCYTES % (AUTO) 16 % (12-44); MEAN CORPUSCULAR HEMOGLOBIN 33 PG (25-34); MEAN CORPUSCULAR HGB CONC 34 G/DL (32-36); MEAN CORPUSCULAR VOLUME 96 FL (80-99); MEAN PLATELET VOLUME 8.4 FL (7.4-10.4); MONOCYTES # (AUTO) 0.7 X 10^3 (0.0-1.0); MONOCYTES % (AUTO) 12 % (0-12); NEUTROPHILS # (AUTO) 4.4 X 10^3 (1.8-7.8); NEUTROPHILS % (AUTO) 69 % (42-75); PLATELET COUNT 316 10^3/uL (130-400); RED BLOOD COUNT 3.11 10^6/uL (4.35-5.85); RED CELL DISTRIBUTION WIDTH 14.3 % (10.0-14.5); WHITE BLOOD COUNT 6.4 10^3/uL (4.3-11.0)
[2016-12-09] MEDS: PANTOPRAZOLE 20 MG TABLET (PROTONIX) PO SCH (05:46)
[2016-12-09] MEDS: KCL 10 MEQ TAB (MICRO K) PO SCH ×3 (05:46→16:45)
[2016-12-09 05:58] LABS: ALANINE AMINOTRANSFERASE 16 U/L (0-55); ALBUMIN 3.1 GM/DL (3.2-4.5); ANION GAP 13 MMOL/L (5-14); ASPARTATE AMINO TRANSFERASE 19 U/L (5-34); BLOOD UREA NITROGEN 5 MG/DL (7-18); BUN/CREATININE RATIO 10; CALCIUM 8.5 MG/DL (8.5-10.1); CARBON DIOXIDE 20 MMOL/L (21-32); CHLORIDE 99 MMOL/L (98-107); CREATININE SERUM 0.51 MG/DL (0.60-1.30); GFR ESTIMATED > 60; GLUCOSE 96 MG/DL (70-105); POTASSIUM 3.6 MMOL/L (3.6-5.0); SODIUM 132 MMOL/L (135-145); TOTAL PROTEIN 5.7 GM/DL (6.4-8.2)
[2016-12-09 06:14] VITALS: BP 135/88
[2016-12-09] MEDS: METOCLOPRAMIDE 10 MG (REGLAN) TAB PO SCH ×2 (08:15→20:43)
[2016-12-09] MEDS: CYCLOBENZAPRINE 10 MG (FLEXERIL) TAB PO SCH ×3 (08:15→20:43)
[2016-12-09] MEDS: amLODIPine 5 MG (NORVASC) TAB PO SCH (08:15)
[2016-12-09] MEDS: lisINopril 10 MG (PRINIVIL) TAB PO SCH (08:15)
[2016-12-09] MEDS: HYDROcodone/APAP 10 MG/325 MG (LORTAB) TAB PO PRN ×3 (08:15→16:45)
[2016-12-09] MEDS: LACTULOSE SYRUP 10GM/15ML (ENULOSE) 30ML UDC PO SCH ×2 (08:16→20:41)
[2016-12-09] MEDS: FLUTICASONE NASAL SPRAY (FLONASE) 16 GM BTL NS SCH (08:17)
[2016-12-09] MEDS: SENNA W/DOCUSATE (SENOKOT S) TABLET PO SCH ×2 (08:17→20:43)
[2016-12-09] MEDS: DICLOFENAC 1% GEL 100 GM (VOLTAREN) TUBE TOP SCH ×4 (08:18→20:43)
[2016-12-09 08:20] VITALS: BP 127/75
--- NOTE | 2016-12-09 08:41 | PM & R (SOAP) Progress Note ---
Subjective Time Seen by Provider: 08:15 Subjective/Events-last exam Patient was seen in his room this AM Patient min assist for transfers Voltaren gel ordered as aid for pain control chronic back pain.Protonix ordered for GERD in LIeu of Preavacid Objective Exam Last Set of Vital Signs Vital Signs Date Time Temp Pulse Resp B/P (MAP) Pulse Ox O2 Delivery O2 Flow Rate FiO2 12/09/16 08:20 94 127/75 12/09/16 06:28 93 Room Air 12/09/16 06:14 98.8 18 Capillary Refill : Less Than 3 Seconds I&O Intake and Output 12/09/16 00:00 Intake Total 1500 ml Output Total 2200 ml Balance -700 ml Intake Oral 1500 ml Output Urine Total 2200 ml General: Alert, Oriented X3, Cooperative, No Acute Distress HEENT: Atraumatic, PERRLA, EOMI, Mucous Memb Moist/[place] Neck: Supple, No JVD Lungs: Clear to Auscultation Heart: Regular Rate Abdomen: Normal Bowel Sounds, Soft, No Tenderness (trace edema rt ankle) Neuro: Other (guarding rt hip generalized weakness) Psych/Mental Status: Other (Short term memory loss) Results Lab Laboratory Tests 12/09/16 05:08: Sodium Level 132L, Potassium Level 3.6, Chloride Level 99, Carbon Dioxide Level 20L, Anion Gap 13, Blood Urea Nitrogen 5L, Creatinine 0.51L, Estimat Glomerular Filtration Rate > 60, BUN/Creatinine Ratio 10, Glucose Level 96, Calcium Level 8.5, Total Bilirubin 1.0, Aspartate Amino Transf (AST/SGOT) 19, Alanine Aminotransferase (ALT/SGPT) 16, Alkaline Phosphatase 55, Total Protein 5.7L, Albumin 3.1L 12/09/16 05:22: White Blood Count 6.4, Red Blood Count 3.11L, Hemoglobin 10.2L, Hematocrit 30L, Mean Corpuscular Volume 96, Mean Corpuscular Hemoglobin 33, Mean Corpuscular Hemoglobin Concent 34, Red Cell Distribution Width 14.3, Platelet Count 316, Mean Platelet Volume 8.4, Neutrophils (%) (Auto) 69, Lymphocytes (%) (Auto) 16, Monocytes (%) (Auto) 12, Eosinophils (%) (Auto) 3, Basophils (%) (Auto) 1, Neutrophils # (Auto) 4.4, Lymphocytes # (Auto) 1.0, Monocytes # (Auto) 0.7, Eosinophils # (Auto) 0.2, Basophils # (Auto) 0.0 Assessment/Plan Assessment Rt hip frx s/p IM nailing 12-04-16 Dr Bass Postop anemia Postop electrolyte abnormality COPD stable Tobaccoism currently absstaining Gerd Protonix ordered Chronic back pain Voltaren ordered HTN controlled Plan Continue PT/OT/ST Recheck Labs F/U with Hospitalist Team Conference held yeterday See report for full functional update and POC and MAYKEL MARTINEZ MD Dec 09, 2016 08:40
--- NOTE | 2016-12-09 09:45 | Speech Therapy Daily Note ---
Speech Daily Progress Note Subjective Date Seen by Provider: Dec 09, 2016 Time Seen by Provider: 08:55 The patient was laying in bed upon entrance. The patient greeted the clinician and was agreeable to participation in the cognitive treatment session. The patient remained pleasant and cooperative throughout therapy. Objective - Orientation: The patient was independently oriented to month, day of week, date, and year. - Assessment of Language Related Functional Activities (CIPRIANO) was initiated on this date with the below results: * Telling Time: The patient demonstrated 80% accuracy (independently) with telling time on an analog clock. * Daily Math: The patient demonstrated 90% accuracy (independently) with solving routine math problems including tax %, payment calculations, and time. * Calendar Use: The patient demonstrated 100% accuracy (independently) with questions involved in calendar use. Assessment Assessment Current Status: Good Progress Treatment Plan Continue Plan of Care Communication Comprehension: 4 Expression: 4 Social Cognition Social Interaction: 4 Problem Solvin Memory: 4 Speech Short Term Goals Short Term Goals Short Term Goals 1. The patient will recall and demonstrate two functional memory strategies with 90% accuracy. 2. The patient will sequence ADL's with 80% accuracy, independently. 3. The patient will display 80% accuracy with structured word finding tasks with mild clinician verbal prompting. Time Frame-STG: One Week Speech Residential Roofer Goals Long-Term Goals 1. The patient will demonstrate improved cognitive skills for increased function and safety with ADL's. Time Frame: Two Weeks Speech-Plan Treatment Plan Speech Therapy Treatment Plan: Continue Plan of Care Continue skilled speech pathology to focus on functional problem solving and sequencing. Treatment Duration: Nov 22, 2017 Frequency: Modified Program (IRF) (Four to Five time per Day) Estimated Hrs Per Day: .5 hour per day Rehab Potential: Guarded Safety Risks/Education Teaching Recipient: Patient Teaching Methods: Discussion Response to Teaching: Verbalize Understanding Education Topics Provided: Progression of Therapy, Plan of Care Time Speech Therapy Time In: 08:55 Speech Therapy Time Out: 09:25 Total Billed Time: 30 Billed Treatment Time JennaJOSEDANII MURRELLAubreyNANETTE ST Dec 09, 2016 09:45
--- NOTE | 2016-12-09 10:37 | Progress Note-Hospitalist ---
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 Given lactulose and Senna today Patient Interview: Pt confirms BM meds taken Pt rates his pain at a 5 Physical exam stable. Lungs sound perfect Pt states that his range of motion in his right leg is reduced. I informed him that this will get better during his recovery AFFVSS, pleasant, O x 3, flat affect RRR, CTAB no edema Assessment: s/p UNCOMPLICATED RIGHT INTERTROCHANTERIC FEMUR FRACTURE per Dr Syed Acute blood loss received 2 units of blood Acute hypokalemia Smoker HTN COPD w/wheezes on exam prompting Nebs and IS now improved CABG previous CABG Debilitated status Hyponatremia improved on restriction Slow recovery needs NH or IRU Poor motivation Plan: Encourage to ambulate BM regimen Scribed by Radha Marin under the direct supervision of Dr. Cano. JUAN CANO DO Dec 09, 2016 10:37
--- NOTE | 2016-12-09 11:02 | Occupational Ther Daily Note ---
OT Current Status-Daily Note Subjective Pt alert, lying in bed. Pt agreed to therapy. Pt c/o pain, did not rate. Mental Status/Objective Patient Orientation: Person, Place, Time, Situation Functional [place] Measure 0=Not Assessed/NA 4=Minimal Assistance 1=Total Assistance 5=Supervision or Setup 2=Maximal Assistance 6=Modified [place] 3=Moderate Assistance 7=Complete [place] Attachments: IV ADL-Treatment Pt agreed to shower. Mod A for supine to sitting EOB. Mod A with squat pivot transfer from EOB to w/c. Pt very anxious. Transferred from w/c to shower bench and back with mod A. Pt tends to pull away from transfer. Using shower bench, grabbars, hand held shower and long handle sponge was able to bathe self sitting on bench, leaned toward side to cleanse buttocks. Pt required assistance to dry feet and buttocks. After set up, pt able to don/doff shirt by self. Assist to don/doff lower body clothing. Anxious to stand to hike pants over hips. Pt then sat in w/c at sink to complete grooming by self. After therapy, pt sitting in w/c with nephew present. Call light/phone in reach. All needs met in room. Functional [place] Measure 0=Not Assessed/NA 4=Minimal Assistance 1=Total Assistance 5=Supervision or Setup 2=Maximal Assistance 6=Modified [place] 3=Moderate Assistance 7=Complete IndependenceIRFPAI Quality Coding Scale 6 Independent with activity with or without an assistive device 5 Patient requires set up or clean up by helper. Patient completes activity by themselves 4 Supervision or touching assist (CGA). [place] provide cues , steadying assist 3 The helper provides less than half the effort to complete the activity 2 The helper provides more than half the effort to complete the activity 1 Dependent. The helper does all the effort to complete an activity 7 Patient refused to complete or attempt activity 9 The patient did not perform the activity before the current illness or injury 88 Not attempted due to Medical conditions or safety concerns Grooming (FIM): 6 Oral Hygiene (QC): 6 Bathing (FIM): 3 Bathing Location: L Arm, R Arm, L Upper Leg, R Upper Leg, L Lower Leg ( including foot), R Lower Leg (including foot), Chest, Abdomen, Buttocks, Perineal Area Shower/Bathe Self (QC): 3 Upper Body (FIM): 5 Upper Body Dressing (QC): 5 Lower Body Dressing (FIM): 2 Lower Body Dressing (QC): 2 On/Off Footwear (QC): 2 Shower Transfer(FIM): 3 OT Short Term Goals Short Term Goals Time Frame: Dec 16, 2016 Lower Body Dressing(FIM): 3 Toilet/Commode Transfer(FIM): 3 Shower Transfer(FIM): 3 1=Demonstrate adherence to instructed precautions during ADL tasks. 2=Patient will verbalize/demonstrate understanding of assistive devices/ modifications for ADL. 3=Patient will improve strength/tolerance for activity to enable patient to perform ADL's. OT Fci Goals Fci Goals Time Frame: Jan 06, 2017 Eating (FIM): 6 Eating (QC): 6 Groomin Oral Hygiene (QC): 6 Bathing(FIM): 5 Shower/Bathe Self (QC): 5 Upper Body Dressing(FIM): 6 Upper Body Dressing (QC): 6 Lower Body Dressing(FIM): 6 Lower Body Dressing (QC): 6 On/Off Footwear (QC): 6 Toileting(FIM): 6 Toileting Hygiene (QC): 6 Toilet/Commode Transfer(FIM): 6 Toilet/Commode Transfer (QC): 6 Shower Transfer(FIM): 5 Additional Goals: 1-Demonstrate ADL Tasks, 2-Verbalize Understanding, 3- ImproveStrength/Gonzalez 1=Demonstrate adherence to instructed precautions during ADL tasks. 2=Patient will verbalize/demonstrate understanding of assistive devices/ modifications for ADL. 3=Patient will improve strength/tolerance for activity to enable patient to perform ADL's. OT Education/Plan Problem List/Assessment Pt would benefit from skilled OT to increase his independence in basic self car to allow him to safely return home and to decrease caregiver burden Discharge Recommendations Plan/Recommendations: Continue POC Treatment Plan/Plan of Care Patient would benefit from OT for education, treatment and training to promote independence in ADL's, mobility, safety and/or upper extremity function for ADL' s. Plan of Care: ADL Retraining, Functional Mobility, Group Exercise/Act as Ind ( activity tolerance, exercise, education, funct mobility), UE Funct Exercise/Act , UE Neuromus Re-Ed/Coord Treatment Duration: Jan 06, 2017 Frequency: Twice Daily (5-6 times a week) Estimated Hrs Per Day: 1.5 hours per day Agreement: Yes Rehab Potential: Guarded Time/GCodes Start Time: 10:00 Stop Time: 11:15 Total Time Billed (hr/min): 75 Billed Treatment Time 1 visit-ADL 5 (75 min) DAVID ALMEIDA Dec 09, 2016 11:02
--- NOTE | 2016-12-09 12:59 | Physical Therapy Daily Note ---
PT Daily Note-Current Subjective Pt sitting in [facility] in room upon arrival. Pt agreed to PT although reports tightness and pain in R hip/groin area. Pain Numeric Pain Scale: 8 Location: Right Location Body Site: Hip Pain Description: Ache, Tightness Mental Status Patient Orientation: Person, Place, Situation Transfers Functional [place] Measure 0=Not Assessed/NA 4=Minimal Assistance 1=Total Assistance 5=Supervision or Setup 2=Maximal Assistance 6=Modified [place] 3=Moderate Assistance 7=Complete IndependenceIRFPAI Quality Coding Scale 6 Independent with activity with or without an assistive device 5 Patient requires set up or clean up by helper. Patient completes activity by themselves 4 Supervision or touching assist (CGA). [place] provide cues , steadying assist 3 The helper provides less than half the effort to complete the activity 2 The helper provides more than half the effort to complete the activity 1 Dependent. The helper does all the effort to complete an activity 7 Patient refused to complete or attempt activity 9 The patient did not perform the activity before the current illness or injury 88 Not attempted due to Medical conditions or safety concerns Scootin Supine to/from Sit: 4 Sit to/from Stand: 4 Sit to Lying (QC): 4 Sit to Stand (QC): 4 Chair/Und-pb-Eavpg Xfer(QC): 4 Bed to/from Chair: 4 Weight Bearing Weight Bearing Restriction: Full Weight Bearing Location Restriction: LE Bilateral Wheelchair Training Does the Pt Use a Wheelchair?: Yes Wheelchair Distance: 3=150 ft Distance: 200' Wheelchair Level of Assist: 5 Wheel 50 ft with 2 turns (QC): 5 Wheel 150 ft (QC): 5 Type of Wheelchair: Manual Exercises Supine Ex: Ankle pumps, Quad Set, Heel Slides, Straight leg raise, Hip abd/add Supine Reps: 15 Treatments Pt propelled [facility] from room to Therapy Gym. Pt transferred from [facility] to EOB in Gym using FWW at Min A. Pt completed Supine Ex on mat before transferring back to [facility] to return to room to rest and eat lunch before afternoon session. Pt & PT discussed what pt needs to work on to get stronger to WB, walk & discharge from hospital. Pt resting in [facility] at end of tx with all needs met. Assessment Current Status: Fair Progress Pt continues to report pain and it limits participation on PT. Pt doesn't appear motivated to make progress with PT even when benefits are explained, just fixates on pain. PT Short Term Goals Short Term Goals Wheelchair Distance: 150' PT Long-Term Goals Long-Term Goals PT Long-Term Goals Time Frame: Jan 07, 2017 Transfers (B,C,W/C) (FIM): 5 Sit to Lying (QC): 4 Lying-Sitting on Side/Bed(QC): 4 Sit to Stand (QC): 4 Rollin Roll Left to Right (QC): 4 Chair/Atp-qk-Ifhkw Xfer(QC): 4 Car Transfer (QC): 4 Does the Patient Walk: No and Walking Goal IS indicated Gait (FIM): 1 Gait distance (FIM): 1=up to 49 ft (45) Distance: 45' Walk 10 feet (QC): 4 Walk 10ft-Uneven Surface(QC): 4 Walk 50ft with 2 Turns (QC): 9 Walk 150 ft (QC): 9 Gait Level of Assist: 5 Gait Assistive Device: FWW # of Steps: 1 1 Step (curb) (QC): 4 4 Steps (QC): 4 12 Steps (QC): 9 Stairs Level Of Assist: 4 Picking up an Object (QC): 4 PT Plan Problem List Problem List: Activity Tolerance, Functional Strength, Safety, Balance, Gait, Transfer, Bed Mobility Treatment/Plan Treatment Plan: Continue Plan of Care Treatment Plan: Bed Mobility, Education, Functional Activity Gonzalez, Functional Strength, Group Therapy, Gait, Safety, Therapeutic Exercise, Transfers Treatment Duration: Jan 07, 2017 Frequency: At least 5-7 days/Wk (IRF) Estimated Hrs Per Day: 1.5 hours per day Patient and/or Family Agrees t: Yes Safety Risks/Education Patient Education: Gait Training, Transfer Techniques, Correct Positioning, Disease Process, Safety Issues Teaching Recipient: Patient Teaching Methods: Discussion Response to Teaching: Verbalize Understanding Time/GCodes Time In: 1140 Time Out: 1225 Total Billed Treatment Time: 45 Total Billed Treatment visit, WCH (15m), EX (20m ) & FA (10m) CATALINA GRAHAM PTA Dec 09, 2016 12:59
--- NOTE | 2016-12-09 15:27 | Diagnostic Imaging Report ---
EXAMINATION: Two views of the right hip. INDICATION: Internal fixation, baseline. FINDINGS: There is an intramedullary nail and interlocking nail through the right femoral neck seen for fixation of intertrochanteric right femoral fracture in good alignment. Mild to moderate degenerative changes of the right hip joint are seen with no subluxation or dislocation. IMPRESSION: Internal fixation of right intertrochanteric fracture in good alignment. Dictated by: Dictated on workstation # [id number]
--- NOTE | 2016-12-09 16:41 | Physical Therapy Daily Note ---
PT Daily Note-Current Subjective Pt sitting in [facility] upon arrival. Pt reports pain in R hip. Pain Numeric Pain Scale: 8 Location: Right Location Body Site: Hip Pain Description: Sharp Mental Status Patient Orientation: Person, Place, Situation Transfers Functional [place] Measure 0=Not Assessed/NA 4=Minimal Assistance 1=Total Assistance 5=Supervision or Setup 2=Maximal Assistance 6=Modified [place] 3=Moderate Assistance 7=Complete IndependenceIRFPAI Quality Coding Scale 6 Independent with activity with or without an assistive device 5 Patient requires set up or clean up by helper. Patient completes activity by themselves 4 Supervision or touching assist (CGA). [place] provide cues , steadying assist 3 The helper provides less than half the effort to complete the activity 2 The helper provides more than half the effort to complete the activity 1 Dependent. The helper does all the effort to complete an activity 7 Patient refused to complete or attempt activity 9 The patient did not perform the activity before the current illness or injury 88 Not attempted due to Medical conditions or safety concerns Scootin Supine to/from Sit: 4 Sit to/from Stand: 4 Sit to Stand (QC): 4 Chair/Qwd-av-Dkbgr Xfer(QC): 4 Bed to/from Chair: 4 Weight Bearing Weight Bearing Restriction: Full Weight Bearing Location Restriction: LE Bilateral Wheelchair Training Does the Pt Use a Wheelchair?: Yes Distance: 150' Wheelchair Level of Assist: 5 Wheel 50 ft with 2 turns (QC): 5 Wheel 150 ft (QC): 5 Type of Wheelchair: Manual Exercises Seated Therapy Exercises: Sit to stand Seated Reps: [address] [facility] to Therapy Gym. Pt completes 5 sit to stands at //bars. Pt returns to room at end of tx to rest Supine in bed with all needs met. Assessment Current Status: Fair Progress Pt continues to let pain limit participation in Therapy. Pt is completing sit to stands better/more independently although cannot take steps due to pain. PT Short Term Goals Short Term Goals Wheelchair Distance: 200' PT Market Research Intern Goals Alf Goals PT Market Research Intern Goals Time Frame: Jan 07, 2017 Transfers (B,C,W/C) (FIM): 5 Sit to Lying (QC): 4 Lying-Sitting on Side/Bed(QC): 4 Sit to Stand (QC): 4 Rollin Roll Left to Right (QC): 4 Chair/Rwv-qv-Apkqc Xfer(QC): 4 Car Transfer (QC): 4 Does the Patient Walk: No and Walking Goal IS indicated Gait (FIM): 1 Gait distance (FIM): 1=up to 49 ft (45) Distance: 45' Walk 10 feet (QC): 4 Walk 10ft-Uneven Surface(QC): 4 Walk 50ft with 2 Turns (QC): 9 Walk 150 ft (QC): 9 Gait Level of Assist: 5 Gait Assistive Device: FWW # of Steps: 1 1 Step (curb) (QC): 4 4 Steps (QC): 4 12 Steps (QC): 9 Stairs Level Of Assist: 4 Picking up an Object (QC): 4 PT Plan Problem List Problem List: Activity Tolerance, Functional Strength, Safety, Balance, Gait, Transfer, Bed Mobility Treatment/Plan Treatment Plan: Continue Plan of Care Treatment Plan: Bed Mobility, Education, Functional Activity Gonzalez, Functional Strength, Group Therapy, Gait, Safety, Therapeutic Exercise, Transfers Treatment Duration: Jan 07, 2017 Frequency: At least 5-7 days/Wk (IRF) Estimated Hrs Per Day: 1.5 hours per day Patient and/or Family Agrees t: Yes Safety Risks/Education Patient Education: Gait Training, Transfer Techniques, Correct Positioning, Disease Process, Safety Issues Teaching Recipient: Patient Teaching Methods: Discussion Response to Teaching: Verbalize Understanding Time/GCodes Time In: 1300 Time Out: 1330 Total Billed Treatment Time: 30 Total Billed Treatment visit, FA (15m) & EX (15m) CATALINA GRAHAM PTA Dec 09, 2016 16:40
[2016-12-09 17:31] VITALS: BP 135/81
[2016-12-09] MEDS: SIMvastatin 20 MG (ZOCOR) TAB PO SCH (20:43)
[2016-12-09] MEDS: CATHETER FLUSH 10 ML SYR IV PRN (20:44)
[2016-12-10 05:11] VITALS: BP 148/87
[2016-12-10] MEDS: PANTOPRAZOLE 20 MG TABLET (PROTONIX) PO SCH (06:05)
[2016-12-10] MEDS: KCL 10 MEQ TAB (MICRO K) PO SCH ×3 (06:05→16:50)
[2016-12-10] MEDS: HYDROcodone/APAP 10 MG/325 MG (LORTAB) TAB PO PRN ×4 (06:06→18:53)
[2016-12-10] MEDS: RT-ALBUTEROL/IPRATROPIUM 3 ML (DUONEB) VIAL INH SCH ×3 (07:17→19:07)
[2016-12-10] MEDS: FLUTICASONE NASAL SPRAY (FLONASE) 16 GM BTL NS SCH (08:24)
[2016-12-10] MEDS: LACTULOSE SYRUP 10GM/15ML (ENULOSE) 30ML UDC PO SCH ×2 (08:24→20:11)
[2016-12-10] MEDS: lisINopril 10 MG (PRINIVIL) TAB PO SCH (08:25)
[2016-12-10] MEDS: METOCLOPRAMIDE 10 MG (REGLAN) TAB PO SCH ×2 (08:25→20:09)
[2016-12-10] MEDS: amLODIPine 5 MG (NORVASC) TAB PO SCH (08:25)
[2016-12-10] MEDS: SENNA W/DOCUSATE (SENOKOT S) TABLET PO SCH ×2 (08:25→20:09)
[2016-12-10] MEDS: CYCLOBENZAPRINE 10 MG (FLEXERIL) TAB PO SCH ×3 (08:25→20:09)
[2016-12-10] MEDS: DICLOFENAC 1% GEL 100 GM (VOLTAREN) TUBE TOP SCH ×4 (08:26→20:11)
--- NOTE | 2016-12-10 09:32 | Speech Therapy Daily Note ---
Speech Daily Progress Note Subjective Date Seen by Provider: Dec 10, 2016 Time Seen by Provider: 08:45 The patient was laying in bed upon entrance. The patient greeted the clinician and was agreeable to participation in the cognitive treatment session. The patient remained pleasant and cooperative throughout therapy. Objective - Orientation: The patient was independently oriented to month, day of week, date, and year. - Assessment of Language Related Functional Activities (CIPRIANO) was initiated on this date with the below results: * Understanding Medicine Labels: The patient demonstrated 86% accuracy (6/7) ( independently) with reading and understanding medicine labels. * Reading Instructions: The patient demonstrated 90% accuracy (independently) with following simple written instructions. * Recalling a Phone Message: The patient demonstrated 74% accuracy (14/19) ( independently) with recalling important information from phone messages. Assessment Assessment Current Status: Good Progress Treatment Plan Continue Plan of Care Communication Comprehension: 4 Expression: 4 Social Cognition Social Interaction: 4 Problem Solvin Memory: 4 Speech Short Term Goals Short Term Goals Short Term Goals 1. The patient will recall and demonstrate two functional memory strategies with 90% accuracy. 2. The patient will sequence ADL's with 80% accuracy, independently. 3. The patient will display 80% accuracy with structured word finding tasks with mild clinician verbal prompting. Time Frame-STG: One Week Speech Longterm Goals Longterm Goals 1. The patient will demonstrate improved cognitive skills for increased function and safety with ADL's. Time Frame: Two Weeks Speech-Plan Treatment Plan Speech Therapy Treatment Plan: Continue Plan of Care Continue skilled speech pathology to target functional problem solving. Treatment Duration: Nov 22, 2017 Frequency: Modified Program (IRF) (Four to Five time per Day) Estimated Hrs Per Day: .5 hour per day Rehab Potential: Guarded Safety Risks/Education Teaching Recipient: Patient Teaching Methods: Discussion Response to Teaching: Verbalize Understanding Education Topics Provided: Results, Progression Towards Goals Time Speech Therapy Time In: 08:45 Speech Therapy Time Out: 09:15 Total Billed Time: 30 Billed Treatment Time 1JOSEDANII MURRELLAubreyNANETTE ST Dec 10, 2016 09:32
--- NOTE | 2016-12-10 11:35 | Occupational Ther Daily Note ---
OT Current Status-Daily Note Subjective Pt alert, lying in bed. Pt agreed to therapy. Pt c/o pain, rated 12/10. Nrsg brought pain meds. Mental Status/Objective Patient Orientation: Person, Place, Time, Situation Functional [place] Measure 0=Not Assessed/NA 4=Minimal Assistance 1=Total Assistance 5=Supervision or Setup 2=Maximal Assistance 6=Modified [place] 3=Moderate Assistance 7=Complete [place] Attachments: IV ADL-Treatment Functional [place] Measure 0=Not Assessed/NA 4=Minimal Assistance 1=Total Assistance 5=Supervision or Setup 2=Maximal Assistance 6=Modified [place] 3=Moderate Assistance 7=Complete IndependenceIRFPAI Quality Coding Scale 6 Independent with activity with or without an assistive device 5 Patient requires set up or clean up by helper. Patient completes activity by themselves 4 Supervision or touching assist (CGA). [place] provide cues , steadying assist 3 The helper provides less than half the effort to complete the activity 2 The helper provides more than half the effort to complete the activity 1 Dependent. The helper does all the effort to complete an activity 7 Patient refused to complete or attempt activity 9 The patient did not perform the activity before the current illness or injury 88 Not attempted due to Medical conditions or safety concerns Grooming (FIM): 6 (At w/c level, pt sitting in front of sink is able to complete all grooming.) Bathing (FIM): 4 (Using shower bench, grabbars, hand held shower and long handle sponge pt is able to complete own bathing with supervision. Pt leans side to side to cleanse buttocks. Assist to dry feet/lower legs and buttocks.) Bathing Location: L Arm, R Arm, L Upper Leg, R Upper Leg, L Lower Leg ( including foot), R Lower Leg (including foot), Chest, Abdomen, Buttocks, Perineal Area Upper Body (FIM): 5 (After set up, pt is able to complete donning/doffin upper body clothing.) Lower Body Dressing (FIM): 2 (Due to increased pain pt requires max A to don/ doff lower body clothing.) Transfers (B, C, W/C) (FIM): 5 (Squat pivot transfer pt is able to transfer with mod A due to pain.) Shower Transfer(FIM): 3 (Squat pivot transfer pt is able to transfer with mod A due to pain using grabbar and shower bench.) Pt took increased time to complete all ADLs and transfers due to pain. After therapy, pt sitting in w/c with call light/phone in reach. All needs met in room. OT Short Term Goals Short Term Goals Time Frame: Dec 16, 2016 Lower Body Dressing(FIM): 3 Toilet/Commode Transfer(FIM): 3 Shower Transfer(FIM): 3 1=Demonstrate adherence to instructed precautions during ADL tasks. 2=Patient will verbalize/demonstrate understanding of assistive devices/ modifications for ADL. 3=Patient will improve strength/tolerance for activity to enable patient to perform ADL's. OT Prison Goals Tow Motor Mechanic Goals Time Frame: Jan 06, 2017 Eating (FIM): 6 Eating (QC): 6 Groomin Oral Hygiene (QC): 6 Bathing(FIM): 5 Shower/Bathe Self (QC): 5 Upper Body Dressing(FIM): 6 Upper Body Dressing (QC): 6 Lower Body Dressing(FIM): 6 Lower Body Dressing (QC): 6 On/Off Footwear (QC): 6 Toileting(FIM): 6 Toileting Hygiene (QC): 6 Toilet/Commode Transfer(FIM): 6 Toilet/Commode Transfer (QC): 6 Shower Transfer(FIM): 5 Additional Goals: 1-Demonstrate ADL Tasks, 2-Verbalize Understanding, 3- ImproveStrength/Gonzalez 1=Demonstrate adherence to instructed precautions during ADL tasks. 2=Patient will verbalize/demonstrate understanding of assistive devices/ modifications for ADL. 3=Patient will improve strength/tolerance for activity to enable patient to perform ADL's. OT Education/Plan Problem List/Assessment Pt would benefit from skilled OT to increase his independence in basic self car to allow him to safely return home and to decrease caregiver burden Discharge Recommendations Plan/Recommendations: Continue POC Treatment Plan/Plan of Care Patient would benefit from OT for education, treatment and training to promote independence in ADL's, mobility, safety and/or upper extremity function for ADL' s. Plan of Care: ADL Retraining, Functional Mobility, Group Exercise/Act as Ind ( activity tolerance, exercise, education, funct mobility), UE Funct Exercise/Act , UE Neuromus Re-Ed/Coord Treatment Duration: Jan 06, 2017 Frequency: Twice Daily (5-6 times a week) Estimated Hrs Per Day: 1.5 hours per day Agreement: Yes Rehab Potential: Guarded Time/GCodes Start Time: 10:00 Stop Time: 11:15 Total Time Billed (hr/min): 75 Billed Treatment Time 1 visit-ADL 5 (75 min) DAVID ALMEIDA Dec 10, 2016 11:35
--- NOTE | 2016-12-10 12:17 | Physical Therapy Daily Note ---
PT Daily Note-Current Subjective Pt. c/o pain in right hip at 7/10 [place] with attempts to move and or walk. Pain Numeric Pain Scale: 7 Location: Right Location Body Site: Hip Pain Description: Stabbing Appearance grimaces, FLACC 8 Mental Status Patient Orientation: Normal For Age hard of hearing Transfers Functional [place] Measure 0=Not Assessed/NA 4=Minimal Assistance 1=Total Assistance 5=Supervision or Setup 2=Maximal Assistance 6=Modified [place] 3=Moderate Assistance 7=Complete IndependenceIRFPAI Quality Coding Scale 6 Independent with activity with or without an assistive device 5 Patient requires set up or clean up by helper. Patient completes activity by themselves 4 Supervision or touching assist (CGA). [place] provide cues , steadying assist 3 The helper provides less than half the effort to complete the activity 2 The helper provides more than half the effort to complete the activity 1 Dependent. The helper does all the effort to complete an activity 7 Patient refused to complete or attempt activity 9 The patient did not perform the activity before the current illness or injury 88 Not attempted due to Medical conditions or safety concerns Transfers (B, C, W/C) (FIM): 4 Scootin Rollin Supine to/from Sit: 4 Sit to/from Stand: 5 Weight Bearing Weight Bearing Restriction: Weight Bearing/Tolerated Location Restriction: R LE Gait Training Does the Patient Walk?: Yes Gait (FIM): 1 Distance (FIM): 1=up to 49 ft (4ftx3) Gait Level of Assist: 4 Gait Persons Needed: 1 Gait Assistive Device: FWW heavy wt bearing on FWW much difficulty attempting wt bearing on right hip, poor control Wheelchair Training Does the Pt Use a Wheelchair?: Yes Wheelchair (FIM): 4 Wheelchair Distance: 3=150 ft (x2) Wheelchair Level of Assist: 4 Type of Wheelchair: Manual fatigues quickly Exercises Supine Ex: Ankle pumps, Quad Set, Rolling, Glut sets, Heel Slides (ssist), Short Arc Quads, Scooting, Straight leg raise (assist), Hip abd/add (asssit) Supine Reps: 12 (very slow) Assessment Current Status: Fair Progress pain limits function, great difficlty with gait PT Short Term Goals Short Term Goals Wheelchair Distance: 150' PT Real Estate Inspector Goals Real Estate Inspector Goals PT Real Estate Inspector Goals Time Frame: Jan 07, 2017 Transfers (B,C,W/C) (FIM): 5 Sit to Lying (QC): 4 Lying-Sitting on Side/Bed(QC): 4 Sit to Stand (QC): 4 Rollin Roll Left to Right (QC): 4 Chair/Hym-gc-Iktmn Xfer(QC): 4 Car Transfer (QC): 4 Does the Patient Walk: No and Walking Goal IS indicated Gait (FIM): 1 Gait distance (FIM): 1=up to 49 ft (45) Distance: 45' Walk 10 feet (QC): 4 Walk 10ft-Uneven Surface(QC): 4 Walk 50ft with 2 Turns (QC): 9 Walk 150 ft (QC): 9 Gait Level of Assist: 5 Gait Assistive Device: FWW # of Steps: 1 1 Step (curb) (QC): 4 4 Steps (QC): 4 12 Steps (QC): 9 Stairs Level Of Assist: 4 Picking up an Object (QC): 4 PT Plan Treatment/Plan Treatment Plan: Continue Plan of Care Treatment Plan: Bed Mobility, Education, Functional Activity Gonzalez, Functional Strength, Group Therapy, Gait, Safety, Therapeutic Exercise, Transfers Treatment Duration: Jan 07, 2017 Frequency: At least 5-7 days/Wk (IRF) Estimated Hrs Per Day: 1.5 hours per day Patient and/or Family Agrees t: Yes Safety Risks/Education Patient Education: Gait Training, Transfer Techniques, Correct Positioning, W/ C Management, Disease Process, Safety Issues Teaching Recipient: Patient Teaching Methods: Demonstration, Discussion Response to Teaching: Verbalize Understanding, Return Demonstration, Reinforcement Needed Time/GCodes Time In: 1130 Time Out: 1215 Total Billed Treatment Time: 45 Total Billed Treatment 1,FA15m,EX15m,GT15m G Codes Necessary: GUNJAN Woods PERSONNEL RECORDS CLERK Dec 10, 2016 12:17
--- NOTE | 2016-12-10 14:45 | Therapy Group Daily Note ---
Therapy Daily Group Note Other/Notes Pt. attended group PT OT session via w/c. Pt. propelled indep. Pt. very pleasant and enjoyed socialization participating in table activities, introduced himself and made conversation. Activities in groups of 4 at table promoting problem solving, fine motor function, UE strengthening against gravity as well as coordination. Pt. to room after Rx with reed at hand Start Time: 13:00 Stop Time: 14:20 Total Billed Treatment Time: 80 Total Billed Treatment 1,GRP GUNJAN [place] ENGINEER TECHNICAL STAFF Dec 10, 2016 14:45
--- NOTE | 2016-12-10 15:46 | PM & R (SOAP) Progress Note ---
Subjective Time Seen by Provider: 15:15 Subjective/Events-last exam Patient was seen in his room this afternoon Patient min assist for transfers Xray of hip shows DJD but intact hardware Dyspepsia improved with protonix Objective Exam Last Set of Vital Signs Vital Signs Date Time Temp Pulse Resp B/P (MAP) Pulse Ox O2 Delivery O2 Flow Rate FiO2 12/10/16 15:22 95 Room Air 12/10/16 05:11 96.8 98 16 148/87 Capillary Refill : Less Than 3 Seconds I&O Intake and Output 12/10/16 00:00 Intake Total 2140 ml Output Total 2275 ml Balance -135 ml Intake Oral 2140 ml Output Urine Total 2275 ml # Voids 1 General: Alert, Oriented X3, Cooperative, No Acute Distress HEENT: Atraumatic, PERRLA, EOMI, Mucous Memb Moist/[place] Neck: Supple, No JVD Lungs: Clear to Auscultation Heart: Regular Rate Abdomen: Normal Bowel Sounds, Soft, No Tenderness (trace edema rt ankle) Neuro: Other (guarding rt hip generalized weakness) Psych/Mental Status: Other (Short term memory loss) Results Lab Laboratory Tests 12/09/16 05:08: Sodium Level 132L, Potassium Level 3.6, Chloride Level 99, Carbon Dioxide Level 20L, Anion Gap 13, Blood Urea Nitrogen 5L, Creatinine 0.51L, Estimat Glomerular Filtration Rate > 60, BUN/Creatinine Ratio 10, Glucose Level 96, Calcium Level 8.5, Total Bilirubin 1.0, Aspartate Amino Transf (AST/SGOT) 19, Alanine Aminotransferase (ALT/SGPT) 16, Alkaline Phosphatase 55, Total Protein 5.7L, Albumin 3.1L 12/09/16 05:22: White Blood Count 6.4, Red Blood Count 3.11L, Hemoglobin 10.2L, Hematocrit 30L, Mean Corpuscular Volume 96, Mean Corpuscular Hemoglobin 33, Mean Corpuscular Hemoglobin Concent 34, Red Cell Distribution Width 14.3, Platelet Count 316, Mean Platelet Volume 8.4, Neutrophils (%) (Auto) 69, Lymphocytes (%) (Auto) 16, Monocytes (%) (Auto) 12, Eosinophils (%) (Auto) 3, Basophils (%) (Auto) 1, Neutrophils # (Auto) 4.4, Lymphocytes # (Auto) 1.0, Monocytes # (Auto) 0.7, Eosinophils # (Auto) 0.2, Basophils # (Auto) 0.0 Assessment/Plan Assessment Rt hip frx s/p IM nailing 12-04-16 Dr Shelia ARCINIEGA rt hip Postop anemia Postop electrolyte abnormality COPD stable Tobaccoism currently absstaining Gerd Protonix ordered-improved Chronic back pain Voltaren ordered HTN controlled Plan Continue PT/OT/ST Recheck Labs F/U with Hospitalist Team Conference held 12-08-16 See report for full functional update and POC and ELOS Pain management MAYKEL HUERTAS MD Dec 10, 2016 15:46
[2016-12-10 18:16] VITALS: BP 124/80
[2016-12-10] MEDS: SIMvastatin 20 MG (ZOCOR) TAB PO SCH (20:09)
[2016-12-11 05:54] VITALS: BP 155/92
[2016-12-11] MEDS: HYDROcodone/APAP 10 MG/325 MG (LORTAB) TAB PO PRN ×4 (06:27→20:21)
[2016-12-11] MEDS: KCL 10 MEQ TAB (MICRO K) PO SCH ×3 (06:27→16:42)
[2016-12-11] MEDS: PANTOPRAZOLE 20 MG TABLET (PROTONIX) PO SCH (06:27)
[2016-12-11] MEDS: RT-ALBUTEROL/IPRATROPIUM 3 ML (DUONEB) VIAL INH SCH ×3 (06:34→19:52)
[2016-12-11] MEDS: SENNA W/DOCUSATE (SENOKOT S) TABLET PO SCH ×2 (08:53→20:21)
[2016-12-11] MEDS: lisINopril 10 MG (PRINIVIL) TAB PO SCH (08:53)
[2016-12-11] MEDS: amLODIPine 5 MG (NORVASC) TAB PO SCH (08:54)
[2016-12-11] MEDS: CYCLOBENZAPRINE 10 MG (FLEXERIL) TAB PO SCH ×3 (08:54→20:21)
[2016-12-11] MEDS: METOCLOPRAMIDE 10 MG (REGLAN) TAB PO SCH ×2 (08:54→20:21)
[2016-12-11] MEDS: LACTULOSE SYRUP 10GM/15ML (ENULOSE) 30ML UDC PO SCH ×2 (08:55→20:22)
[2016-12-11] MEDS: FLUTICASONE NASAL SPRAY (FLONASE) 16 GM BTL NS SCH (08:57)
[2016-12-11] MEDS: DICLOFENAC 1% GEL 100 GM (VOLTAREN) TUBE TOP SCH ×4 (10:51→20:22)
--- NOTE | 2016-12-11 11:57 | Physical Therapy Daily Note ---
PT Daily Note-Current Subjective Pt. is dressing with nurse upon arrival, very agreeable to therapy. She has no c/o pain. Mental Status Patient Orientation: Person Transfers Functional [place] Measure 0=Not Assessed/NA 4=Minimal Assistance 1=Total Assistance 5=Supervision or Setup 2=Maximal Assistance 6=Modified [place] 3=Moderate Assistance 7=Complete IndependenceIRFPAI Quality Coding Scale 6 Independent with activity with or without an assistive device 5 Patient requires set up or clean up by helper. Patient completes activity by themselves 4 Supervision or touching assist (CGA). [place] provide cues , steadying assist 3 The helper provides less than half the effort to complete the activity 2 The helper provides more than half the effort to complete the activity 1 Dependent. The helper does all the effort to complete an activity 7 Patient refused to complete or attempt activity 9 The patient did not perform the activity before the current illness or injury 88 Not attempted due to Medical conditions or safety concerns Transfers (B, C, W/C) (FIM): 4 Sit to/from Stand: 4 Gait Training Does the Patient Walk?: Yes Distance (FIM): 3=150 ft Distance: 200 ft Gait Level of Assist: 4 Gait Persons Needed: 1 Gait Assistive Device: FWW Exercises Seated Therapy Exercises: Long arc quads, Hip flexion Seated Reps: 15 Standing: Hip Abduction, Hamstring curls, Heel/toe raises, Marching, Mini squats Standing Reps: 15 Treatments LE exercise, ambulation Assessment Current Status: Good Progress Pt. had good performance with LE exercises and was slow but steady with gait using FWW. Pt. returned to bedside chair post session, call light in reach and all needs met. PT Short Term Goals Short Term Goals Wheelchair Distance: 150' PT Mcc Goals Equipment Operator Wage Hand Goals PT Equipment Operator Wage Hand Goals Time Frame: Jan 07, 2017 Transfers (B,C,W/C) (FIM): 5 Sit to Lying (QC): 4 Lying-Sitting on Side/Bed(QC): 4 Sit to Stand (QC): 4 Rollin Roll Left to Right (QC): 4 Chair/Lbg-oz-Zrnix Xfer(QC): 4 Car Transfer (QC): 4 Does the Patient Walk: No and Walking Goal IS indicated Gait (FIM): 1 Gait distance (FIM): 1=up to 49 ft (45) Distance: 45' Walk 10 feet (QC): 4 Walk 10ft-Uneven Surface(QC): 4 Walk 50ft with 2 Turns (QC): 9 Walk 150 ft (QC): 9 Gait Level of Assist: 5 Gait Assistive Device: FWW # of Steps: 1 1 Step (curb) (QC): 4 4 Steps (QC): 4 12 Steps (QC): 9 Stairs Level Of Assist: 4 Picking up an Object (QC): 4 PT Plan Treatment/Plan Treatment Plan: Continue Plan of Care Treatment Plan: Bed Mobility, Education, Functional Activity Gonzalez, Functional Strength, Group Therapy, Gait, Safety, Therapeutic Exercise, Transfers Treatment Duration: Jan 07, 2017 Frequency: At least 5-7 days/Wk (IRF) Estimated Hrs Per Day: 1.5 hours per day Patient and/or Family Agrees t: Yes Time/GCodes Time In: 1110 Time Out: 1125 Total Billed Treatment Time: 15 Total Billed Treatment 1, Ex 15' IDA ALBARADO PT Dec 11, 2016 11:57
--- NOTE | 2016-12-11 12:19 | Physical Therapy Daily Note ---
PT Daily Note-Current Subjective Pt seated in recliner, reluctantly agrees to PT. Pain rated 12/10 in the (R) hip. Family present and supportive. Mental Status Patient Orientation: Person, Place, Situation Transfers Functional [place] Measure 0=Not Assessed/NA 4=Minimal Assistance 1=Total Assistance 5=Supervision or Setup 2=Maximal Assistance 6=Modified [place] 3=Moderate Assistance 7=Complete IndependenceIRFPAI Quality Coding Scale 6 Independent with activity with or without an assistive device 5 Patient requires set up or clean up by helper. Patient completes activity by themselves 4 Supervision or touching assist (CGA). [place] provide cues , steadying assist 3 The helper provides less than half the effort to complete the activity 2 The helper provides more than half the effort to complete the activity 1 Dependent. The helper does all the effort to complete an activity 7 Patient refused to complete or attempt activity 9 The patient did not perform the activity before the current illness or injury 88 Not attempted due to Medical conditions or safety concerns Gait Training Gait Assistive Device: FWW PT able to take 2-3 steps x 2 with FWW and Min-mod A. Max vc's for sequence. Pt taken via w/c to //bars. Pt able to take 2-3 steps in //bars with max vc's and min- mod A for balance. Practiced gait training with platform walker. Pt able to amb 25ft with vc's and min A. Close f/u of w/c. Exercises Seated Therapy Exercises: Ankle pumps, Long arc quads Seated Reps: 20 Treatments practiced lifting foot from floor onto the table base. Pt encouraged to continue LAQ, heel slides and AP all weekend. Assessment Current Status: Good Progress Pt presents with low threshold for pain. Pt showed improved ability to tolerate gait training using the platform walker. Pt back to recliner with call light and all needs met. PT Short Term Goals Short Term Goals Wheelchair Distance: 150' PT Soft Metals Hand Engraver Goals Soft Metals Hand Engraver Goals PT Soft Metals Hand Engraver Goals Time Frame: Jan 07, 2017 Transfers (B,C,W/C) (FIM): 5 Sit to Lying (QC): 4 Lying-Sitting on Side/Bed(QC): 4 Sit to Stand (QC): 4 Rollin Roll Left to Right (QC): 4 Chair/Okl-we-Pktio Xfer(QC): 4 Car Transfer (QC): 4 Does the Patient Walk: No and Walking Goal IS indicated Gait (FIM): 1 Gait distance (FIM): 1=up to 49 ft (45) Distance: 45' Walk 10 feet (QC): 4 Walk 10ft-Uneven Surface(QC): 4 Walk 50ft with 2 Turns (QC): 9 Walk 150 ft (QC): 9 Gait Level of Assist: 5 Gait Assistive Device: FWW # of Steps: 1 1 Step (curb) (QC): 4 4 Steps (QC): 4 12 Steps (QC): 9 Stairs Level Of Assist: 4 Picking up an Object (QC): 4 PT Plan Treatment/Plan Treatment Plan: Continue Plan of Care Treatment Plan: Bed Mobility, Education, Functional Activity Gonzalez, Functional Strength, Group Therapy, Gait, Safety, Therapeutic Exercise, Transfers Treatment Duration: Jan 07, 2017 Frequency: At least 5-7 days/Wk (IRF) Estimated Hrs Per Day: 1.5 hours per day Patient and/or Family Agrees t: Yes Time/GCodes Time In: 1005 Time Out: 1045 Total Billed Treatment Time: 40 Total Billed Treatment 1, gait x 45min BURT SANTIAGO CPTA Dec 11, 2016 12:19
[2016-12-11] MEDS: CATHETER FLUSH 10 ML SYR IV PRN ×2 (16:40→20:22)
[2016-12-11 17:15] VITALS: BP 107/63
[2016-12-11] MEDS: SIMvastatin 20 MG (ZOCOR) TAB PO SCH (20:21)
[2016-12-12 05:25] VITALS: BP 146/86
[2016-12-12] MEDS: PANTOPRAZOLE 20 MG TABLET (PROTONIX) PO SCH (06:29)
[2016-12-12] MEDS: HYDROcodone/APAP 10 MG/325 MG (LORTAB) TAB PO PRN ×4 (06:29→22:08)
[2016-12-12] MEDS: KCL 10 MEQ TAB (MICRO K) PO SCH ×3 (06:29→17:13)
[2016-12-12] MEDS: RT-ALBUTEROL/IPRATROPIUM 3 ML (DUONEB) VIAL INH SCH (07:58)
[2016-12-12 08:10] VITALS: BP 128/79
[2016-12-12] MEDS ORDERED: RT-ALBUTEROL/IPRATROPIUM 3 ML (DUONEB) VIAL INH PRN (08:15)
[2016-12-12] MEDS: amLODIPine 5 MG (NORVASC) TAB PO SCH (10:04)
[2016-12-12] MEDS: METOCLOPRAMIDE 10 MG (REGLAN) TAB PO SCH ×2 (10:04→20:14)
[2016-12-12] MEDS: CYCLOBENZAPRINE 10 MG (FLEXERIL) TAB PO SCH ×3 (10:04→20:14)
[2016-12-12] MEDS: lisINopril 10 MG (PRINIVIL) TAB PO SCH (10:04)
[2016-12-12] MEDS: SENNA W/DOCUSATE (SENOKOT S) TABLET PO SCH ×2 (10:04→20:14)
[2016-12-12] MEDS: DICLOFENAC 1% GEL 100 GM (VOLTAREN) TUBE TOP SCH ×4 (10:04→20:16)
[2016-12-12] MEDS: FLUTICASONE NASAL SPRAY (FLONASE) 16 GM BTL NS SCH (10:09)
[2016-12-12] MEDS: LACTULOSE SYRUP 10GM/15ML (ENULOSE) 30ML UDC PO SCH ×2 (10:09→21:35)
[2016-12-12 17:58] VITALS: BP 160/88
[2016-12-12] MEDS: SIMvastatin 20 MG (ZOCOR) TAB PO SCH (20:14)
[2016-12-13 05:25] VITALS: BP 138/84
[2016-12-13] MEDS: HYDROcodone/APAP 10 MG/325 MG (LORTAB) TAB PO PRN ×3 (05:47→17:34)
[2016-12-13] MEDS: KCL 10 MEQ TAB (MICRO K) PO SCH ×3 (06:04→17:34)
[2016-12-13] MEDS: PANTOPRAZOLE 20 MG TABLET (PROTONIX) PO SCH (06:04)
[2016-12-13] MEDS: LACTULOSE SYRUP 10GM/15ML (ENULOSE) 30ML UDC PO SCH ×2 (08:37→20:40)
[2016-12-13] MEDS: METOCLOPRAMIDE 10 MG (REGLAN) TAB PO SCH ×2 (09:05→20:40)
[2016-12-13] MEDS: SENNA W/DOCUSATE (SENOKOT S) TABLET PO SCH ×2 (09:05→20:40)
[2016-12-13] MEDS: lisINopril 10 MG (PRINIVIL) TAB PO SCH (09:05)
[2016-12-13] MEDS: amLODIPine 5 MG (NORVASC) TAB PO SCH (09:05)
[2016-12-13] MEDS: FLUTICASONE NASAL SPRAY (FLONASE) 16 GM BTL NS SCH (09:06)
[2016-12-13] MEDS: DICLOFENAC 1% GEL 100 GM (VOLTAREN) TUBE TOP SCH ×4 (09:06→20:42)
[2016-12-13] MEDS: CYCLOBENZAPRINE 10 MG (FLEXERIL) TAB PO SCH ×3 (09:06→20:40)
--- NOTE | 2016-12-13 09:41 | Speech Therapy Daily Note ---
Speech Daily Progress Note Subjective Date Seen by Provider: Dec 13, 2016 Time Seen by Provider: 08:30 The patient was laying in bed upon entrance. The patient greeted the clinician and was agreeable to participation in the cognitive treatment session. The patient remained pleasant and cooperative throughout therapy. Objective - Orientation: The patient was independently oriented to month, day of week, date, and year. - Assessment of Language Related Functional Activities (CIPRIANO) was continued on this date with the below results: * Counting Money: The patient demonstrated 90% accuracy with coin and bill addition and change, independently. * Addressing and Envelope: The patient accurately addressed an envelope, as well as, provided his return address in the appropriate place. * Writing a Check: The patient was able to write a check with 100% accuracy with a pseudo bill account, independently. Assessment Assessment Current Status: Good Progress Treatment Plan Continue Plan of Care Communication Comprehension: 5 Expression: 5 Social Cognition Social Interaction: 4 Problem Solvin Memory: 4 Speech Short Term Goals Short Term Goals Short Term Goals 1. The patient will recall and demonstrate two functional memory strategies with 90% accuracy. 2. The patient will sequence ADL's with 80% accuracy, independently. 3. The patient will display 80% accuracy with structured word finding tasks with mild clinician verbal prompting. Time Frame-STG: One Week Speech Quality Assurance Technician Goals Fpc Goals 1. The patient will demonstrate improved cognitive skills for increased function and safety with ADL's. Time Frame: Two Weeks Speech-Plan Treatment Plan Speech Therapy Treatment Plan: Continue Plan of Care Continue skilled speech pathology to target functional problem solving and memory. Treatment Duration: Nov 22, 2017 Frequency: Modified Program (IRF) (Four to Five time per Day) Estimated Hrs Per Day: .5 hour per day Rehab Potential: Guarded Safety Risks/Education Teaching Recipient: Patient Teaching Methods: Discussion Response to Teaching: Verbalize Understanding Education Topics Provided: Plan of Care, Upcoming Session Plans Time Speech Therapy Time In: 08:30 Speech Therapy Time Out: 09:00 Total Billed Time: 30 Billed Treatment Time ESTELA West ELIZABEKALINA BLANKENSHIP Dec 13, 2016 09:41
--- NOTE | 2016-12-13 11:13 | Occupational Ther Daily Note ---
OT Current Status-Daily Note Subjective Pt alert, lying in bed. Pt agreed to therapy. Pt c/o pain though did not rate. Nrsg called to check on time pain meds were due, nrsg brought pain meds. Mental Status/Objective Patient Orientation: Person, Place, Time, Situation Functional [place] Measure 0=Not Assessed/NA 4=Minimal Assistance 1=Total Assistance 5=Supervision or Setup 2=Maximal Assistance 6=Modified [place] 3=Moderate Assistance 7=Complete [place] ADL-Treatment Functional [place] Measure 0=Not Assessed/NA 4=Minimal Assistance 1=Total Assistance 5=Supervision or Setup 2=Maximal Assistance 6=Modified [place] 3=Moderate Assistance 7=Complete IndependenceIRFPAI Quality Coding Scale 6 Independent with activity with or without an assistive device 5 Patient requires set up or clean up by helper. Patient completes activity by themselves 4 Supervision or touching assist (CGA). [place] provide cues , steadying assist 3 The helper provides less than half the effort to complete the activity 2 The helper provides more than half the effort to complete the activity 1 Dependent. The helper does all the effort to complete an activity 7 Patient refused to complete or attempt activity 9 The patient did not perform the activity before the current illness or injury 88 Not attempted due to Medical conditions or safety concerns Grooming (FIM): 6 (At w/c level, pt is able to complete by self sitting at sink.) Oral Hygiene (QC): 6 (At w/c level, pt is able to complete by self sitting at sink.) Bathing (FIM): 4 (Using shower bench, grabbars, hand held shower and long handle sponge pt able to bathe self, leaned side to side to cleanse buttocks. Assist to dry buttocks in standing and R foot.) Bathing Location: L Arm, R Arm, L Upper Leg, R Upper Leg, L Lower Leg ( including foot), R Lower Leg (including foot), Chest, Abdomen, Buttocks, Perineal Area Shower/Bathe Self (QC): 3 (Using shower bench, grabbars, hand held shower and long handle sponge pt able to bathe self, leaned side to side to cleanse buttocks. Assist to dry buttocks in standing and R foot.) Upper Body (FIM): 5 (Set up only. Able to don/doff upper body clothing by self.) Upper Body Dressing (QC): 5 (Set up only. Able to don/doff upper body clothing by self.) Lower Body Dressing (FIM): 3 (Pt used dressing stick to doff socks. Assist to hike pants down/up hips while in standing. Assist to don/doff R pant leg. Pt able to don L pant leg and left sock by self. Assist to don R sock.) Lower Body Dressing (QC): 2 (Pt used dressing stick to doff socks. Assist to hike pants down/up hips while in standing. Assist to don/doff R pant leg. Pt able to don L pant leg and left sock by self. Assist to don R sock.) On/Off Footwear (QC): 2 Transfers (B, C, W/C) (FIM): 4 (Min A for stand pivot transfers. Pt does not control sitting in seat.) Shower Transfer(FIM): 4 (Using grabbar and shower bench, pt is able to transfer with min A.) After therapy, pt sitting in w/c with nrsg present in room. Call light/phone in reach. All needs mt in room. OT Short Term Goals Short Term Goals Time Frame: Dec 16, 2016 Lower Body Dressing(FIM): 3 Toilet/Commode Transfer(FIM): 3 Shower Transfer(FIM): 3 1=Demonstrate adherence to instructed precautions during ADL tasks. 2=Patient will verbalize/demonstrate understanding of assistive devices/ modifications for ADL. 3=Patient will improve strength/tolerance for activity to enable patient to perform ADL's. OT Chcf Goals Home Service Director Goals Time Frame: Jan 06, 2017 Eating (FIM): 6 Eating (QC): 6 Groomin Oral Hygiene (QC): 6 Bathing(FIM): 5 Shower/Bathe Self (QC): 5 Upper Body Dressing(FIM): 6 Upper Body Dressing (QC): 6 Lower Body Dressing(FIM): 6 Lower Body Dressing (QC): 6 On/Off Footwear (QC): 6 Toileting(FIM): 6 Toileting Hygiene (QC): 6 Toilet/Commode Transfer(FIM): 6 Toilet/Commode Transfer (QC): 6 Shower Transfer(FIM): 5 Additional Goals: 1-Demonstrate ADL Tasks, 2-Verbalize Understanding, 3- ImproveStrength/Gonzalez 1=Demonstrate adherence to instructed precautions during ADL tasks. 2=Patient will verbalize/demonstrate understanding of assistive devices/ modifications for ADL. 3=Patient will improve strength/tolerance for activity to enable patient to perform ADL's. OT Education/Plan Problem List/Assessment Pt would benefit from skilled OT to increase his independence in basic self car to allow him to safely return home and to decrease caregiver burden Discharge Recommendations Plan/Recommendations: Continue POC Treatment Plan/Plan of Care Patient would benefit from OT for education, treatment and training to promote independence in ADL's, mobility, safety and/or upper extremity function for ADL' s. Plan of Care: ADL Retraining, Functional Mobility, Group Exercise/Act as Ind ( activity tolerance, exercise, education, funct mobility), UE Funct Exercise/Act , UE Neuromus Re-Ed/Coord Treatment Duration: Jan 06, 2017 Frequency: Twice Daily (5-6 times a week) Estimated Hrs Per Day: 1.5 hours per day Agreement: Yes Rehab Potential: Guarded Time/GCodes Start Time: 10:00 Stop Time: 11:00 Total Time Billed (hr/min): 60 Billed Treatment Time 1 visit-ADL 3 (45 min) FA 1 (15 min) DAVID ALMEIDA Dec 13, 2016 11:13
--- NOTE | 2016-12-13 12:11 | Physical Therapy Daily Note ---
PT Daily Note-Current Subjective Pt. c/o he has pain in right hip at 9/10 . Pts. nurse states he had pain meds 30m ago. States he only walked 10 ft at a time previous to this Pain Numeric Pain Scale: 9 Location: Right Location Body Site: Hip Pain Description: Ache Appearance frail, weak voice, frown on face Mental Status Patient Orientation: Normal For Age Transfers Functional [place] Measure 0=Not Assessed/NA 4=Minimal Assistance 1=Total Assistance 5=Supervision or Setup 2=Maximal Assistance 6=Modified [place] 3=Moderate Assistance 7=Complete IndependenceIRFPAI Quality Coding Scale 6 Independent with activity with or without an assistive device 5 Patient requires set up or clean up by helper. Patient completes activity by themselves 4 Supervision or touching assist (CGA). [place] provide cues , steadying assist 3 The helper provides less than half the effort to complete the activity 2 The helper provides more than half the effort to complete the activity 1 Dependent. The helper does all the effort to complete an activity 7 Patient refused to complete or attempt activity 9 The patient did not perform the activity before the current illness or injury 88 Not attempted due to Medical conditions or safety concerns Transfers (B, C, W/C) (FIM): 4 Scootin Rollin Supine to/from Sit: 4 Sit to/from Stand: 4 Weight Bearing Weight Bearing Restriction: Weight Bearing/Tolerated Location Restriction: R LE Gait Training Does the Patient Walk?: Yes Gait (FIM): 1 Distance (FIM): 1=up to 49 ft (8ftx3) Gait Level of Assist: 4 Gait Persons Needed: 1 Gait Assistive Device: FWW slow, adducted with feet near crossing , needs cues for seperating feet Wheelchair Training Does the Pt Use a Wheelchair?: Yes Wheelchair (FIM): 5 Wheelchair Distance: 3=150 ft Wheelchair Level of Assist: 5 Type of Wheelchair: Manual needs cues to propel and use LEs also Exercises Supine Ex: Ankle pumps, Quad Set, Rolling, Glut sets, Heel Slides, Short Arc Quads, Scooting, Straight leg raise (assist), Hip abd/add (assist) Supine Reps: 12 Seated Therapy Exercises: Ankle pumps, Sit to stand, Long arc quads, Hip abd/ add Seated Reps: 12 Assessment Current Status: Fair Progress pain c/o limit Rx as well as c/o he is so fatigued PT Short Term Goals Short Term Goals Wheelchair Distance: 150' PT Mcfp Goals Mcfp Goals PT Mcfp Goals Time Frame: Jan 07, 2017 Transfers (B,C,W/C) (FIM): 5 Sit to Lying (QC): 4 Lying-Sitting on Side/Bed(QC): 4 Sit to Stand (QC): 4 Rollin Roll Left to Right (QC): 4 Chair/Psh-tj-Juqep Xfer(QC): 4 Car Transfer (QC): 4 Does the Patient Walk: No and Walking Goal IS indicated Gait (FIM): 1 Gait distance (FIM): 1=up to 49 ft (45) Distance: 45' Walk 10 feet (QC): 4 Walk 10ft-Uneven Surface(QC): 4 Walk 50ft with 2 Turns (QC): 9 Walk 150 ft (QC): 9 Gait Level of Assist: 5 Gait Assistive Device: FWW # of Steps: 1 1 Step (curb) (QC): 4 4 Steps (QC): 4 12 Steps (QC): 9 Stairs Level Of Assist: 4 Picking up an Object (QC): 4 PT Plan Treatment/Plan Treatment Plan: Continue Plan of Care Treatment Plan: Bed Mobility, Education, Functional Activity Gonzalez, Functional Strength, Group Therapy, Gait, Safety, Therapeutic Exercise, Transfers Treatment Duration: Jan 07, 2017 Frequency: At least 5-7 days/Wk (IRF) Estimated Hrs Per Day: 1.5 hours per day Patient and/or Family Agrees t: Yes Safety Risks/Education Patient Education: Gait Training, Transfer Techniques, Correct Positioning, W/ C Management, Disease Process, Safety Issues Teaching Recipient: Patient Teaching Methods: Demonstration, Discussion Response to Teaching: Return Demonstration, Reinforcement Needed Time/GCodes Time In: 1100 Time Out: 1200 Total Billed Treatment Time: 60 Total Billed Treatment 1,GT25m,EX15m,w/c20m G Codes Necessary: No GUNJAN DEL VALLE BOTANICAL TECHNICAL OFFICER Dec 13, 2016 12:10
--- NOTE | 2016-12-13 13:37 | Consultation (CHS) ---
HPI History of Present Illness: 66 yo male admitted to [facility] after a right hip fracture. He states he is doing well except he can't get his muscles to do some of the things they should. He denies any other concerns at this time. Date seen by provider: Dec 13, 2016 Time Seen by Provider: 09:50 Attending Physician Mayo Hannon MD PCP Bridger Reyes MD Consult Date of Admission Dec 07, 2016 at 11:11 am Home Medications Home Medications Reviewed patient Home Medication Reconciliation Form Allergies Coded Allergies: NKANo Known Allergies (Unverified Allergy, Mild, 02/08/09) QUC-Ekfcpb-Yabbse Hx Patient Social History Alcohol Use: Occasionally Uses Recreational Drug Use: No Smoking Status: Former Smoker Type Used: Cigarettes Recent Foreign Travel: No Contact w/other who traveled: No Recent Hopitalizations: No Recent Infectious Disease Expo: No Physical Abuse Screen: No Sexual Abuse: No Immunizations Up To Date Tetanus Booster (TDap): More than 5yrs Past Medical History PMHx: CAD HTN HLD GERD ASOD Chronic back pain SurgHx: Triple bypass Nerve transposition Right hip fracture nailing Family Medical History Significant Family History: No Pertinent Family Hx Family History: Cardiovascular disease 19 FATHER 19 MOTHER G8 BROTHER G8 SISTER FH: breast cancer 19 MOTHER Hypertension 19 FATHER 19 MOTHER Review of Systems ([facility]C) Constitutional: no symptoms reported EENTM: no symptoms reported Respiratory: no symptoms reported Cardiovascular: no symptoms reported Gastrointestinal: no symptoms reported Genitourinary: no symptoms reported Musculoskeletal: see HPI Skin: no symptoms reported Psychiatric/Neurological: No Symptoms Reported Physical Exam-([facility]) Physical Exam Vital Signs VS - Last 72 Hours, by Label 12/10/16 12/10/16 12/10/16 12/10/16 15:22 18:16 19:08 20:30 Temp 98.4 Pulse 97 Resp 18 B/P (MAP) 124/80 Pulse Ox 95 92 92 O2 Delivery Room Air Room Air Room Air Room Air 12/11/16 12/11/16 12/11/16 12/11/16 05:54 06:34 08:28 14:25 Temp 98.3 Pulse 96 Resp 18 B/P (MAP) 155/92 Pulse Ox 96 93 95 O2 Delivery Room Air Room Air Room Air Room Air 12/11/16 12/11/16 12/11/16 12/12/16 17:15 19:52 20:15 05:25 Temp 98.0 97.9 Pulse 101 94 Resp 18 18 B/P (MAP) 107/63 146/86 Pulse Ox 94 93 95 O2 Delivery Room Air Room Air Room Air Room Air 12/12/16 12/12/16 12/12/16 12/12/16 08:00 08:02 08:10 09:59 Pulse 105 B/P (MAP) 128/79 Pulse Ox 93 93 94 O2 Delivery Room Air Room Air Room Air 12/12/16 12/12/16 12/12/16 12/13/16 17:58 20:10 22:00 05:25 Temp 97.3 97.4 Pulse 108 93 Resp 18 16 B/P (MAP) 160/88 138/84 Pulse Ox 96 93 O2 Delivery Room Air Room Air Room Air Room Air 12/13/16 12/13/16 12/13/16 12/13/16 06:43 09:00 09:35 11:32 Temp 97.4 97.4 Pulse Ox 94 O2 Delivery Room Air Room Air Capillary Refill : Less Than 3 Seconds General Appearance: WD/WN, no apparent distress Respiratory: lungs clear, normal breath sounds Cardiovascular: regular rate, rhythm, no edema, no murmur Gastrointestinal: normal bowel sounds, non tender, soft Neurologic/Psychiatric: normal mood/affect Skin: normal color, warm/dry Assessment/Plan Assessment/Plan Admission Dx Right hip fracture s/p nailing HTN ASOD/CAD HLD Plan Right hip fracture s/p nailing- rehab per IRF HTN- controlled, continue current medications (lisinopril, amlodipine, hydralazine) ASOD/CAD- pt reports he is following with Dr. Masterson for his peripheral arterial disease -Continue blood pressure and cholesterol management HLD- continue simvastatin Diagnosis/Problems: Clinical Quality Measures DVT/VTE Risk/Contraindication: Risk Factor Score Per Nursin RFS Level Per Nursing on Admit: 4+=Very High JAYSON ROBLEDO MD Dec 13, 2016 1:36 pm
--- NOTE | 2016-12-13 15:16 | Therapy Group Daily Note ---
Therapy Daily Group Note Patient Education Topic Fall Prevention, Home Safety Other/Notes Pt transported via w/c to OT/PT group. Group consisted of introductions (name, place living, childhood memory), socialization, transfer safety education (bed, chair, floor) and group discussion. Pt contributed to group discussions appropriately. Pt verbalized understanding of education topic and gave solutions for home safety problems that he had used previously. Pt requested to use restroom after group. Pt transferred from w/c to toilet and back with mod A. Then pt transferred into bed with mod A. Call light/phone in reach. All needs met in room. Start Time: 13:00 Stop Time: 14:15 Total Billed Treatment Time: 75 Total Billed Treatment 1-GRP DAVID ALMEIDA Dec 13, 2016 15:16
[2016-12-13 18:17] VITALS: BP 108/68
--- NOTE | 2016-12-13 19:18 | PM & R (SOAP) Progress Note ---
Subjective Time Seen by Provider: 19:10 Subjective/Events-last exam Patient was seen in his room this evening Patient min assist for transfers Back pain better controlled Objective Exam Last Set of Vital Signs Vital Signs Date Time Temp Pulse Resp B/P (MAP) Pulse Ox O2 Delivery O2 Flow Rate FiO2 12/13/16 18:42 94 Room Air 12/13/16 18:17 97.4 100 16 108/68 Capillary Refill : Less Than 3 Seconds I&O Intake and Output 12/13/16 00:00 Intake Total 2320 ml Output Total 4450 ml Balance -2130 ml Intake Oral 2320 ml Output Urine Total 4450 ml # Voids 4 General: Alert, Oriented X3, Cooperative, No Acute Distress HEENT: Atraumatic, PERRLA, EOMI, Mucous Memb Moist/[place] Neck: Supple, No JVD Lungs: Clear to Auscultation Heart: Regular Rate Abdomen: Normal Bowel Sounds, Soft, No Tenderness (trace edema rt ankle) Neuro: Other (guarding rt hip generalized weakness) Psych/Mental Status: Other (Short term memory loss) Assessment/Plan Assessment Rt hip frx s/p IM nailing 12-04-16 Dr Shelia COREASD rt hip Postop anemia Postop electrolyte abnormality COPD stable Tobaccoism currently absstaining Gerd Protonix ordered-improved Chronic back pain Voltaren ordered HTN controlled Plan Continue PT/OT/ST Recheck Labs-done F/U with Hospitalist prn Pain management Next Team Conference 12/15/16 MAYKEL HUERTAS MD Dec 13, 2016 19:18
[2016-12-13] MEDS: SIMvastatin 20 MG (ZOCOR) TAB PO SCH (20:40)
[2016-12-14] MEDS: HYDROcodone/APAP 10 MG/325 MG (LORTAB) TAB PO PRN ×3 (05:37→16:30)
[2016-12-14 06:00] VITALS: BP 138/85
[2016-12-14] MEDS: KCL 10 MEQ TAB (MICRO K) PO SCH ×3 (06:35→16:30)
[2016-12-14] MEDS: PANTOPRAZOLE 20 MG TABLET (PROTONIX) PO SCH (06:35)
[2016-12-14] MEDS: SENNA W/DOCUSATE (SENOKOT S) TABLET PO SCH ×2 (08:33→21:55)
[2016-12-14] MEDS: amLODIPine 5 MG (NORVASC) TAB PO SCH (08:33)
[2016-12-14] MEDS: lisINopril 10 MG (PRINIVIL) TAB PO SCH (08:33)
[2016-12-14] MEDS: METOCLOPRAMIDE 10 MG (REGLAN) TAB PO SCH ×2 (08:33→21:55)
[2016-12-14] MEDS: CYCLOBENZAPRINE 10 MG (FLEXERIL) TAB PO SCH ×3 (08:33→21:55)
[2016-12-14] MEDS: LACTULOSE SYRUP 10GM/15ML (ENULOSE) 30ML UDC PO SCH ×2 (08:35→21:53)
[2016-12-14] MEDS: FLUTICASONE NASAL SPRAY (FLONASE) 16 GM BTL NS SCH (08:36)
--- NOTE | 2016-12-14 09:29 | Speech Therapy Daily Note ---
Speech Daily Progress Note Subjective Date Seen by Provider: Dec 14, 2016 Time Seen by Provider: 08:40 The patient was laying in bed upon entrance. The patient greeted the clinician appropriately and was agreeable to participation in the cognitive treatment session on this date. Objective Functional Safety Problem Solving: The patient was provided photographs containing safety issues in his environment. The patient was asked to identify the safety issue and provide an appropriate solution to the problem. The patient demonstrated 90% accuracy with minimal clinician verbal cueing. Orientation: The patient remained 100% oriented to month, day of week, date, and year (independently). Communication Comprehension: 5 Expression: 5 Social Cognition Social Interaction: 4 Problem Solvin Memory: 4 Speech Short Term Goals Short Term Goals Short Term Goals 1. The patient will recall and demonstrate two functional memory strategies with 90% accuracy. 2. The patient will sequence ADL's with 80% accuracy, independently. 3. The patient will display 80% accuracy with structured word finding tasks with mild clinician verbal prompting. Time Frame-STG: One Week Speech Client Engagement Manager Goals Client Engagement Manager Goals 1. The patient will demonstrate improved cognitive skills for increased function and safety with ADL's. Time Frame: Two Weeks Speech-Plan Treatment Plan Speech Therapy Treatment Plan: Continue Plan of Care Continue skilled speech pathology to target functional problem solving and memory strategies. Treatment Duration: Nov 22, 2017 Frequency: Modified Program (IRF) (Four to Five time per Day) Estimated Hrs Per Day: .5 hour per day Rehab Potential: Guarded Safety Risks/Education Teaching Recipient: Patient Teaching Methods: Discussion Response to Teaching: Verbalize Understanding, Return Demonstration Education Topics Provided: Functional Safety Problem Solving Time Speech Therapy Time In: 08:40 Speech Therapy Time Out: 09:10 Total Billed Time: 30 Billed Treatment Time JennaESTELA ELIZABETH ST Dec 14, 2016 09:29
--- NOTE | 2016-12-14 10:56 | Occupational Ther Daily Note ---
OT Current Status-Daily Note Subjective Pt alert, lying in bed. Pt agreed to therapy. Pt c/o R knee being stiff then throughout therapy c/o back and R LE spasming. Mental Status/Objective Patient Orientation: Person, Place, Time, Situation Functional [place] Measure 0=Not Assessed/NA 4=Minimal Assistance 1=Total Assistance 5=Supervision or Setup 2=Maximal Assistance 6=Modified [place] 3=Moderate Assistance 7=Complete [place] ADL-Treatment Functional [place] Measure 0=Not Assessed/NA 4=Minimal Assistance 1=Total Assistance 5=Supervision or Setup 2=Maximal Assistance 6=Modified [place] 3=Moderate Assistance 7=Complete IndependenceIRFPAI Quality Coding Scale 6 Independent with activity with or without an assistive device 5 Patient requires set up or clean up by helper. Patient completes activity by themselves 4 Supervision or touching assist (CGA). [place] provide cues , steadying assist 3 The helper provides less than half the effort to complete the activity 2 The helper provides more than half the effort to complete the activity 1 Dependent. The helper does all the effort to complete an activity 7 Patient refused to complete or attempt activity 9 The patient did not perform the activity before the current illness or injury 88 Not attempted due to Medical conditions or safety concerns Grooming (FIM): 6 (At w/c level, pt is able to complete all grooming.) Bathing (FIM): 4 (Using shower bench, hand held shower, grabbars and long handle sponge pt is able to complete all bathing. Assist needed to dry R foot and CGA in standing.) Bathing Location: L Arm, R Arm, L Upper Leg, R Upper Leg, L Lower Leg ( including foot), R Lower Leg (including foot), Chest, Abdomen, Buttocks, Perineal Area Upper Body (FIM): 5 (After set up, pt is able to complete donning/doffing upper body clothing.) Lower Body Dressing (FIM): 3 (After set up, pt is able to don/doff socks/pants over L foot. Assist to don/doff lower body clothing over R foot and CGA in standing for pt to hike pants over hips.) Transfers (B, C, W/C) (FIM): 4 (Min A for stand pivot transfers. Pt c/o R LE being stuck and is not able to move it. Pt is able to scoot R LE for correct placement though grimaces and cusses.) Shower Transfer(FIM): 4 (Using shower bench, grabbar and w/c pt is able to complete transfer with min A with stand pivot transfer.) After therapy, pt sitting in w/c with nrsg present in room. All needs met in room. OT Short Term Goals Short Term Goals Time Frame: Dec 16, 2016 Lower Body Dressing(FIM): 3 Toilet/Commode Transfer(FIM): 3 Shower Transfer(FIM): 3 1=Demonstrate adherence to instructed precautions during ADL tasks. 2=Patient will verbalize/demonstrate understanding of assistive devices/ modifications for ADL. 3=Patient will improve strength/tolerance for activity to enable patient to perform ADL's. OT Supervisor Sewer Maintenance Goals Longterm Goals Time Frame: Jan 06, 2017 Eating (FIM): 6 Eating (QC): 6 Groomin Oral Hygiene (QC): 6 Bathing(FIM): 5 Shower/Bathe Self (QC): 5 Upper Body Dressing(FIM): 6 Upper Body Dressing (QC): 6 Lower Body Dressing(FIM): 6 Lower Body Dressing (QC): 6 On/Off Footwear (QC): 6 Toileting(FIM): 6 Toileting Hygiene (QC): 6 Toilet/Commode Transfer(FIM): 6 Toilet/Commode Transfer (QC): 6 Shower Transfer(FIM): 5 Additional Goals: 1-Demonstrate ADL Tasks, 2-Verbalize Understanding, 3- ImproveStrength/Gonzalez 1=Demonstrate adherence to instructed precautions during ADL tasks. 2=Patient will verbalize/demonstrate understanding of assistive devices/ modifications for ADL. 3=Patient will improve strength/tolerance for activity to enable patient to perform ADL's. OT Education/Plan Problem List/Assessment Pt would benefit from skilled OT to increase his independence in basic self car to allow him to safely return home and to decrease caregiver burden Discharge Recommendations Plan/Recommendations: Continue POC Treatment Plan/Plan of Care Patient would benefit from OT for education, treatment and training to promote independence in ADL's, mobility, safety and/or upper extremity function for ADL' s. Plan of Care: ADL Retraining, Functional Mobility, Group Exercise/Act as Ind ( activity tolerance, exercise, education, funct mobility), UE Funct Exercise/Act , UE Neuromus Re-Ed/Coord Treatment Duration: Jan 06, 2017 Frequency: Twice Daily (5-6 times a week) Estimated Hrs Per Day: 1.5 hours per day Agreement: Yes Rehab Potential: Guarded Time/GCodes Start Time: 10:00 Stop Time: 11:00 Total Time Billed (hr/min): 60 Billed Treatment Time 1 visit-ADL 3 (50 min) FA 1 (10 min) DAVID ALMEIDA Dec 14, 2016 10:56
--- NOTE | 2016-12-14 10:58 | PM & R (SOAP) Progress Note ---
Subjective Time Seen by Provider: 07:45 Subjective/Events-last exam Patient was seen in his room this AM Patient Min assist for transfers Objective Exam Last Set of Vital Signs Vital Signs Date Time Temp Pulse Resp B/P (MAP) Pulse Ox O2 Delivery O2 Flow Rate FiO2 12/14/16 08:15 96 Room Air 12/14/16 06:00 99.1 104 18 138/85 Capillary Refill : Less Than 3 Seconds I&O Intake and Output 12/14/16 00:00 Intake Total 1020 ml Output Total 2225 ml Balance -1205 ml Intake Oral 1020 ml Output Urine Total 2225 ml # Voids 1 # Bowel Movements 1 General: Alert, Oriented X3, Cooperative, No Acute Distress HEENT: Atraumatic, PERRLA, EOMI, Mucous Memb Moist/[place] Neck: Supple, No JVD Lungs: Clear to Auscultation Heart: Regular Rate Abdomen: Normal Bowel Sounds, Soft, No Tenderness (trace edema rt ankle) Neuro: Other (guarding rt hip generalized weakness) Psych/Mental Status: Other (Short term memory loss) Assessment/Plan Assessment Rt hip frx s/p IM nailing 12-04-16 Dr Shelia COREASD rt hip Postop anemia Postop electrolyte abnormality COPD stable Tobaccoism currently absstaining Gerd Protonix ordered-improved Chronic back pain Voltaren ordered HTN controlled Plan Continue PT/OT/ST Recheck Labs-done F/U with Hospitalist prn Pain management Next Team Conference tomorrow 12/15/16 MAYKEL HUERTAS MD Dec 14, 2016 10:58
[2016-12-14] MEDS: DICLOFENAC 1% GEL 100 GM (VOLTAREN) TUBE TOP SCH ×4 (10:59→21:57)
--- NOTE | 2016-12-14 12:02 | Physical Therapy Daily Note ---
PT Daily Note-Current Subjective Pt. agrees to Rx. Hesitates and expresses pain, but does not rate. Shares that he was disabled previous to this admit secondary to DJD, and scoliosis and this disabled him Pain Numeric Pain Scale: 5-Moderate Pain Location: Right Location Body Site: Knee Pain Description: Stabbing Mental Status Patient Orientation: Person, Place, Time, Situation Transfers Functional [place] Measure 0=Not Assessed/NA 4=Minimal Assistance 1=Total Assistance 5=Supervision or Setup 2=Maximal Assistance 6=Modified [place] 3=Moderate Assistance 7=Complete IndependenceIRFPAI Quality Coding Scale 6 Independent with activity with or without an assistive device 5 Patient requires set up or clean up by helper. Patient completes activity by themselves 4 Supervision or touching assist (CGA). [place] provide cues , steadying assist 3 The helper provides less than half the effort to complete the activity 2 The helper provides more than half the effort to complete the activity 1 Dependent. The helper does all the effort to complete an activity 7 Patient refused to complete or attempt activity 9 The patient did not perform the activity before the current illness or injury 88 Not attempted due to Medical conditions or safety concerns Transfers (B, C, W/C) (FIM): 4 Scootin Rollin Supine to/from Sit: 4 Sit to/from Stand: 5 sit to stand improved, still requires assist for RLE in out bed Weight Bearing Weight Bearing Restriction: Weight Bearing/Tolerated Location Restriction: R LE Gait Training Does the Patient Walk?: Yes Gait (FIM): 1 Distance (FIM): 1=up to 49 ft (20ftx3,10ft) Gait Level of Assist: 4 Gait Persons Needed: 1 Gait Assistive Device: FWW slow, difficulty advancing RLE, keeps hip flexed and difficulty extending to nuetral in supine. Wheelchair Training Does the Pt Use a Wheelchair?: Yes Wheelchair (FIM): 5 Wheelchair Distance: 3=150 ft Type of Wheelchair: Manual Exercises Supine Ex: Ankle pumps, Quad Set, Rolling, Glut sets, Heel Slides, Short Arc Quads, Scooting, Hip abd/add (requires assist) Supine Reps: 15 Assessment Current Status: Good Progress pain continues, walking a little further, states he does not want to go to [place] PT Short Term Goals Short Term Goals Wheelchair Distance: 150' PT Jail Goals Internal Medicine Hospitalist Goals PT Internal Medicine Hospitalist Goals Time Frame: Jan 07, 2017 Transfers (B,C,W/C) (FIM): 5 Sit to Lying (QC): 4 Lying-Sitting on Side/Bed(QC): 4 Sit to Stand (QC): 4 Rollin Roll Left to Right (QC): 4 Chair/[id number] Xfer(QC): 4 Car Transfer (QC): 4 Does the Patient Walk: No and Walking Goal IS indicated Gait (FIM): 1 Gait distance (FIM): 1=up to 49 ft (45) Distance: 45' Walk 10 feet (QC): 4 Walk 10ft-Uneven Surface(QC): 4 Walk 50ft with 2 Turns (QC): 9 Walk 150 ft (QC): 9 Gait Level of Assist: 5 Gait Assistive Device: FWW # of Steps: 1 1 Step (curb) (QC): 4 4 Steps (QC): 4 12 Steps (QC): 9 Stairs Level Of Assist: 4 Picking up an Object (QC): 4 PT Plan Treatment/Plan Treatment Plan: Continue Plan of Care Treatment Plan: Bed Mobility, Education, Functional Activity Gonzalez, Functional Strength, Group Therapy, Gait, Safety, Therapeutic Exercise, Transfers Treatment Duration: Jan 07, 2017 Frequency: At least 5-7 days/Wk (IRF) Estimated Hrs Per Day: 1.5 hours per day Patient and/or Family Agrees t: Yes Safety Risks/Education Patient Education: Gait Training, Transfer Techniques, Issued Written HEP, Correct Positioning, W/C Management, Disease Process, Safety Issues Teaching Recipient: Patient Teaching Methods: Demonstration, Discussion Response to Teaching: Verbalize Understanding, Return Demonstration, Reinforcement Needed Time/GCodes Time In: 1100 Time Out: 1200 Total Billed Treatment Time: 60 Total Billed Treatment 1,GT30m,EX15m,FA15m G Codes Necessary: GUNJAN Woods ASSOCIATE DRAFTER Dec 14, 2016 12:02
--- NOTE | 2016-12-14 13:28 | Occupational Ther Daily Note ---
OT Current Status-Daily Note Subjective Pt alert, sitting in recliner. Pt agreed to therapy. Nrsg came into room and let pt know that it was time for pain meds if he wanted them. Pt agreed to pain meds. Mental Status/Objective Patient Orientation: Person, Place, Time, Situation Functional [place] Measure 0=Not Assessed/NA 4=Minimal Assistance 1=Total Assistance 5=Supervision or Setup 2=Maximal Assistance 6=Modified [place] 3=Moderate Assistance 7=Complete [place] ADL-Treatment Pt transferred from recliner to / using FWW with CGA. Pt was able to maneuver w/c to therapy gym and back by self. After therapy, pt sitting in room in w/c with call light and phone in reach. All needs met in room. Functional [place] Measure 0=Not Assessed/NA 4=Minimal Assistance 1=Total Assistance 5=Supervision or Setup 2=Maximal Assistance 6=Modified [place] 3=Moderate Assistance 7=Complete IndependenceIRFPAI Quality Coding Scale 6 Independent with activity with or without an assistive device 5 Patient requires set up or clean up by helper. Patient completes activity by themselves 4 Supervision or touching assist (CGA). [place] provide cues , steadying assist 3 The helper provides less than half the effort to complete the activity 2 The helper provides more than half the effort to complete the activity 1 Dependent. The helper does all the effort to complete an activity 7 Patient refused to complete or attempt activity 9 The patient did not perform the activity before the current illness or injury 88 Not attempted due to Medical conditions or safety concerns Other Treatment Pt complete UE dowel yeimy exercises with 1# wt attached. Arm and shldr exercises 3 sets 10 reps. Pt tolerated well, took recovery breaks each set. OT Short Term Goals Short Term Goals Time Frame: Dec 16, 2016 Lower Body Dressing(FIM): 3 Toilet/Commode Transfer(FIM): 3 Shower Transfer(FIM): 3 1=Demonstrate adherence to instructed precautions during ADL tasks. 2=Patient will verbalize/demonstrate understanding of assistive devices/ modifications for ADL. 3=Patient will improve strength/tolerance for activity to enable patient to perform ADL's. OT Retirement Goals Director Of Mobile Marketing Goals Time Frame: Jan 06, 2017 Eating (FIM): 6 Eating (QC): 6 Groomin Oral Hygiene (QC): 6 Bathing(FIM): 5 Shower/Bathe Self (QC): 5 Upper Body Dressing(FIM): 6 Upper Body Dressing (QC): 6 Lower Body Dressing(FIM): 6 Lower Body Dressing (QC): 6 On/Off Footwear (QC): 6 Toileting(FIM): 6 Toileting Hygiene (QC): 6 Toilet/Commode Transfer(FIM): 6 Toilet/Commode Transfer (QC): 6 Shower Transfer(FIM): 5 Additional Goals: 1-Demonstrate ADL Tasks, 2-Verbalize Understanding, 3- ImproveStrength/Gonzalez 1=Demonstrate adherence to instructed precautions during ADL tasks. 2=Patient will verbalize/demonstrate understanding of assistive devices/ modifications for ADL. 3=Patient will improve strength/tolerance for activity to enable patient to perform ADL's. OT Education/Plan Problem List/Assessment Pt would benefit from skilled OT to increase his independence in basic self car to allow him to safely return home and to decrease caregiver burden Discharge Recommendations Plan/Recommendations: Continue POC Treatment Plan/Plan of Care Patient would benefit from OT for education, treatment and training to promote independence in ADL's, mobility, safety and/or upper extremity function for ADL' s. Plan of Care: ADL Retraining, Functional Mobility, Group Exercise/Act as Ind ( activity tolerance, exercise, education, funct mobility), UE Funct Exercise/Act , UE Neuromus Re-Ed/Coord Treatment Duration: Jan 06, 2017 Frequency: Twice Daily (5-6 times a week) Estimated Hrs Per Day: 1.5 hours per day Agreement: Yes Rehab Potential: Guarded Time/GCodes Start Time: 13:00 Stop Time: 13:30 Total Time Billed (hr/min): 30 Billed Treatment Time 1 visit-FA 1 (15 min) EX 1 (15 min) DAVID ALMEIDA Dec 14, 2016 13:28
--- NOTE | 2016-12-14 14:59 | Physical Therapy Daily Note ---
PT Daily Note-Current Subjective Pt. agrees to ambulate to his bed and participate in ther ex and lay flat for a time to help with hip extension Pain Numeric Pain Scale: 6 Location: Right Location Body Site: Hip Pain Description: Ache Transfers Functional [place] Measure 0=Not Assessed/NA 4=Minimal Assistance 1=Total Assistance 5=Supervision or Setup 2=Maximal Assistance 6=Modified [place] 3=Moderate Assistance 7=Complete IndependenceIRFPAI Quality Coding Scale 6 Independent with activity with or without an assistive device 5 Patient requires set up or clean up by helper. Patient completes activity by themselves 4 Supervision or touching assist (CGA). [place] provide cues , steadying assist 3 The helper provides less than half the effort to complete the activity 2 The helper provides more than half the effort to complete the activity 1 Dependent. The helper does all the effort to complete an activity 7 Patient refused to complete or attempt activity 9 The patient did not perform the activity before the current illness or injury 88 Not attempted due to Medical conditions or safety concerns sit to stand SBA, sit to sup SBA pt. supports RLE with LLE to elevate in to bed Weight Bearing Weight Bearing Restriction: Weight Bearing/Tolerated Gait Training Gait Assistive Device: FWW 20ft FWW CGA slow but much better than last week Exercises Supine Ex: Ankle pumps, Quad Set, Rolling, Glut sets, Heel Slides, Scooting, Hip abd/add Supine Reps: 12 Assessment Current Status: Good Progress PT Short Term Goals Short Term Goals Wheelchair Distance: 150' PT Transmission Engineer Goals Transmission Engineer Goals PT [facility] Goals Time Frame: Jan 07, 2017 Transfers (B,C,W/C) (FIM): 5 Sit to Lying (QC): 4 Lying-Sitting on Side/Bed(QC): 4 Sit to Stand (QC): 4 Rollin Roll Left to Right (QC): 4 Chair/Btu-kw-Ucjxb Xfer(QC): 4 Car Transfer (QC): 4 Does the Patient Walk: No and Walking Goal IS indicated Gait (FIM): 1 Gait distance (FIM): 1=up to 49 ft (45) Distance: 45' Walk 10 feet (QC): 4 Walk 10ft-Uneven Surface(QC): 4 Walk 50ft with 2 Turns (QC): 9 Walk 150 ft (QC): 9 Gait Level of Assist: 5 Gait Assistive Device: FWW # of Steps: 1 1 Step (curb) (QC): 4 4 Steps (QC): 4 12 Steps (QC): 9 Stairs Level Of Assist: 4 Picking up an Object (QC): 4 PT Plan Treatment/Plan Treatment Plan: Continue Plan of Care Treatment Plan: Bed Mobility, Education, Functional Activity Gonzalez, Functional Strength, Group Therapy, Gait, Safety, Therapeutic Exercise, Transfers Treatment Duration: Jan 07, 2017 Frequency: At least 5-7 days/Wk (IRF) Estimated Hrs Per Day: 1.5 hours per day Patient and/or Family Agrees t: Yes Safety Risks/Education Patient Education: Gait Training, Transfer Techniques Teaching Recipient: Patient Teaching Methods: Demonstration, Discussion Response to Teaching: Verbalize Understanding, Return Demonstration, Reinforcement Needed Time/GCodes Time In: 1435 Time Out: 1450 Total Billed Treatment Time: 15 Total Billed Treatment 1,GT15m,EX15m G Codes Necessary: GUNJAN Woods AFTER SCHOOL PROGRAM COORDINATOR Dec 14, 2016 14:59
--- NOTE | 2016-12-14 17:27 | Podiatry Progress Note ---
Standard Progress Note Progress Notes/Assess & Plan Date Seen by Provider: Dec 14, 2016 Time Seen by Provider: 17:26 Progress/Assessment & Plan Consult dictated. Foot care given. Dx: PVD, Peripheral Neuropathy, Onychomycosis, Hallux Limitus Final Diagnosis PVD, Peripheral Neuropathy, Onychomycosis, Hallux Limitus FLORY VOSS DPM Dec 14, 2016 17:27
[2016-12-14 18:12] VITALS: BP 120/86
[2016-12-14] MEDS: SIMvastatin 20 MG (ZOCOR) TAB PO SCH (21:55)
[2016-12-15] MEDS: HYDROcodone/APAP 10 MG/325 MG (LORTAB) TAB PO PRN ×4 (03:31→20:39)
[2016-12-15 05:41] VITALS: BP 124/72
[2016-12-15] MEDS: PANTOPRAZOLE 20 MG TABLET (PROTONIX) PO SCH (06:20)
[2016-12-15] MEDS: KCL 10 MEQ TAB (MICRO K) PO SCH ×3 (06:20→18:22)
[2016-12-15] MEDS: CYCLOBENZAPRINE 10 MG (FLEXERIL) TAB PO SCH ×3 (08:12→20:39)
[2016-12-15] MEDS: METOCLOPRAMIDE 10 MG (REGLAN) TAB PO SCH ×2 (08:13→20:39)
[2016-12-15] MEDS: lisINopril 10 MG (PRINIVIL) TAB PO SCH (08:13)
[2016-12-15] MEDS: amLODIPine 5 MG (NORVASC) TAB PO SCH (08:13)
[2016-12-15] MEDS: SENNA W/DOCUSATE (SENOKOT S) TABLET PO SCH ×2 (08:14→20:39)
[2016-12-15] MEDS: DICLOFENAC 1% GEL 100 GM (VOLTAREN) TUBE TOP SCH ×4 (08:15→20:39)
[2016-12-15] MEDS: FLUTICASONE NASAL SPRAY (FLONASE) 16 GM BTL NS SCH (08:15)
--- NOTE | 2016-12-15 08:16 | CONSULTATION REPORT ---
DATE OF CONSULTATION: 12/14/2016 REFERRING PHYSICIAN: REASON FOR CONSULT: Foot care. HISTORY OF PRESENT ILLNESS: This 66-year-old male was admitted secondary to follow that ended up in a fracture of his right hip. He is currently going to rehabilitation. He subsequently went and had orthopedic repair. He is being followed by a hospitalist. Apparently he had some postoperative anemia with a hemoglobin of 6.3. The patient has difficulty reaching for and caring for his feet. PAST MEDICAL HISTORY: 1. Coronary artery disease. 2. Arthritis. 3. COPD. 4. GERD. 5. Hypertension. 6. Tobaccoism. 7. Scoliosis. 8. Presbycusis. 9. Lower back pain. PAST SURGICAL HISTORY: 1. CABG. 2. Hip surgery with IM nail on 12/04/2016 and he is currently weight-bearing to tolerance. ALLERGIES: He has no known drug allergies. SOCIAL HISTORY: The patient is single. He was living alone and entries into his house have stairs and railing. No indication of alcohol or illicit drug use. LOWER EXTREMITY EXAMINATION: The patient has diminished pedal pulses bilaterally. Capillary refill time is approximately 3 seconds to the hallux bilaterally, minimal digital hair growth is present. NEUROLOGICALLY: The patient has intact protective sensation per 10 grams monofilament wire examination bilaterally. Diminished deep tendon reflexes to the Achilles tendon bilaterally and diminished vibratory sensation to the forefoot bilaterally. DERMATOLOGICALLY: He has no open lesions noted at this time. No heel wounds palpated. He has thick, yellow, dystrophic toenails with subungual debris, associated with R1, 2, 3, 4 and 5, L1, 2, 3 and 5 digits. MUSCULOSKELETAL FINDINGS: He has 4/5 muscle strength to the 4 major quadrants of the foot. There is a dorsal exostosis noted to the right first metatarsal head area with limited motion with dorsiflexion of the right first metatarsophalangeal joint. He has 4/5 muscle strength to the 4 major quadrants of the foot. ASSESSMENT: 1. Idiopathic neuropathy. 2. Peripheral vascular disease. 3. Onychomycosis. 4. Hallux rigidus, right. PLAN: Various treatment options were discussed with the patient. His toenails were debrided for him today manually and mechanically. Betadine applied. Because of his risk factors, I do not recommend that he try to cut his own toenails are care for his own feet at this point. We discussed appropriate shoe gear and rehabilitation. He is welcome to follow-up in the office as necessary. Job ID: [id number] Dictated Date: 12/14/2016 17:25:48 Datapower Consultant Date: 12/15/2016 07:56:34/leonidas
--- NOTE | 2016-12-15 09:23 | Speech Therapy Daily Note ---
Speech Daily Progress Note Subjective Date Seen by Provider: Dec 15, 2016 Time Seen by Provider: 08:40 The patient was laying in bed upon entrance. The patient greeted the clinician appropriately and was agreeable to participation in the cognitive treatment program on this date. Objective - Memory Strategies: Functional memory strategies were discussed on this date ( external and internal). Per patient, he uses a calendar to record important appointments if they are scheduled in the future. The patient keeps his calendar on his microwave, which he reviews each morning over coffee. Additionally, the patient uses a notepad which he keeps next to his bed to record the dates of bills. The patient does not use a pill box, however, does follow a common routine daily. Per patient, he uses external strategies more often than internal strategies which were discussed (repetition, association, chunking, visual imagery, and mnemonics). - Functional Memory Practice: The patient was read short paragraphs and asked specific questions following. The patient demonstrated high accuracy (90%) with this task with minimal clinician verbal prompting (repetition of stimulus). Assessment Assessment Current Status: Excellent Progress Treatment Plan Continue Plan of Care Communication Comprehension: 4 Expression: 5 Social Cognition Social Interaction: 4 Problem Solvin Memory: 4 Speech Short Term Goals Short Term Goals Short Term Goals 1. The patient will recall and demonstrate two functional memory strategies with 90% accuracy. 2. The patient will sequence ADL's with 80% accuracy, independently. 3. The patient will display 80% accuracy with structured word finding tasks with mild clinician verbal prompting. Time Frame-STG: One Week Speech Cellophane Casting Machine Repairer Goals Cellophane Casting Machine Repairer Goals 1. The patient will demonstrate improved cognitive skills for increased function and safety with ADL's. Time Frame: Two Weeks Comprehension: 4 (MET) Expression: 4 (MET) Social Interaction: 5 (MET) Problem Solvin (MET) Memory: 4 (MET) Speech-Plan Treatment Plan Speech Therapy Treatment Plan: Discontinue ST, Goals Met Skilled speech pathology goals met. The patient will be discharged from skilled services at this time. Treatment Duration: Nov 22, 2017 Frequency: Modified Program (IRF) (Four to Five time per Day) Estimated Hrs Per Day: .5 hour per day Rehab Potential: Guarded Safety Risks/Education Teaching Recipient: Patient Teaching Methods: Demonstration, Handout, Discussion Response to Teaching: Verbalize Understanding, Return Demonstration Education Topics Provided: Memory Strategies, Plan of Care Time Speech Therapy Time In: :40 Speech Therapy Time Out: 09:10 Total Billed Time: 30 Billed Treatment Time 1, NANETTE JORDAN Dec 15, 2016 09:23
--- NOTE | 2016-12-15 09:29 | Therapy Team Discharge Summary ---
Therapy Discharge Summary Discharge Recommendations Date of Discharge Therapy D/C Recommendations: Home w/ Family Support, Physical Therapy Home Care , Care Home Placement Speech-Language Pathology The patient was recently admitted to [facility] following a hip fracture. Upon admission, the patient demonstrated moderate cognitive deficits, most notably in comprehension and functional problem solving. Skilled speech pathology focused on functional memory strategies (external and internal) , functional activities, and safety problem solving. The patient met all goals initially placed by the clinician and will be discharged from skilled speech pathology services at this time. PT Civil Clerk Goals Senior Care Goals PT Civil Clerk Goals Time Frame: Jan 07, 2017 Transfers (B,C,W/C) (FIM): 5 Roll Left to Right (QC): 4 Sit to Lying (QC): 4 Lying-Sitting on Side/Bed(QC): 4 Sit to Stand (QC): 4 Chair/Scq-as-Hohpd Xfer(QC): 4 Car Transfer (QC): 4 Does the Patient Walk: No and Walking Goal IS indicated Gait (FIM): 1 Gait distance (FIM): 1=up to 49 ft (45) Distance: 45' Walk 10 feet (QC): 4 Walk 10ft-Uneven Surface(QC): 4 Walk 50ft with 2 Turns (QC): 9 Walk 150 ft (QC): 9 Gait Level of Assist: 5 Gait Assistive Device: FWW # of Steps: 1 1 Step (curb) (QC): 4 4 Steps (QC): 4 12 Steps (QC): 9 Stairs Level Of Assist: 4 Picking up an Object (QC): 4 OT Senior Care Goals Senior Care Goals Time Frame: Jan 06, 2017 Eating (FIM): 6 Eating (QC): 6 Oral Hygiene (QC): 6 Grooming(FIM): 6 Bathing(FIM): 5 Shower/Bathe Self (QC): 5 Upper Body Dressing(FIM): 6 Upper Body Dressing (QC): 6 Lower Body Dressing(FIM): 6 Lower Body Dressing (QC): 6 On/Off Footwear (QC): 6 Toileting(FIM): 6 Toileting Hygiene (QC): 6 Toilet/Commode Transfer(FIM): 6 Toilet/Commode Transfer (QC): 6 Shower Transfer(FIM): 5 Comprehension(FIM): 4 (MET) Expression (FIM): 4 (MET) Social Interaction(FIM): 5 (MET) Problem Solving(FIM): 4 (MET) Memory(FIM): 4 (MET) Additional Goals: 1-Demonstrate ADL Tasks, 2-Verbalize Understanding, 3- ImproveStrength/Gonzalez 1=Demonstrate adherence to instructed precautions during ADL tasks. 2=Patient will verbalize/demonstrate understanding of assistive devices/ modifications for ADL. 3=Patient will improve strength/tolerance for activity to enable patient to perform ADL's. Speech Senior Care Goals Civil Clerk Goals 1. The patient will demonstrate improved cognitive skills for increased function and safety with ADL's. Time Frame: Two Weeks Comprehension: 4 (MET) Expression: 4 (MET) Social Interaction: 5 (MET) Problem Solvin (MET) Memory: 4 (MET) NANETTE RODRÍGUEZ Dec 15, 2016 09:29
[2016-12-15] MEDS: LACTULOSE SYRUP 10GM/15ML (ENULOSE) 30ML UDC PO SCH ×2 (09:40→20:38)
--- NOTE | 2016-12-15 10:47 | Occupational Ther Daily Note ---
OT Current Status-Daily Note Subjective Pt alert, sitting in w/c. Pt agreed to therapy. Pt stated that he did hurt, did not rate pain. Mental Status/Objective Patient Orientation: Person, Place, Time, Situation Functional [place] Measure 0=Not Assessed/NA 4=Minimal Assistance 1=Total Assistance 5=Supervision or Setup 2=Maximal Assistance 6=Modified [place] 3=Moderate Assistance 7=Complete [place] ADL-Treatment Pt could not decide if he wanted a shower today. OT offered choices of grooming or exercise, pt decided to shower. Pt maneuvered w/c into bathroom then with min A using grabbars and shower bench pt was able to transfer into shower. Pt grimaced in pain and had difficulty scooting R foot to complete stand pivot transfer. Using shower bench, hand held shower, grabbars and long handle sponge pt is able to complete bathing, rinsing and drying. After set up , pt able to complete upper body dressing by self. Pt was able to to doff pants with min A over R LE. Pt able to don pants over both feet then required assist to pull pants over R heel and min A to stabilize in standing while pt hiked pants over hips. Pt was able to doff socks by self and could only don L sock by self assist to don R sock. Pt has difficulty lifting R LE so is unable at this time to complete donning sock with sock aide. Assist to don both shoes. Pt then maneuvered w/c to sink to complete own grooming. Pt transferred to toilet with min A using grabbars. Pt manipulated own clothing with CGA in standing then completed own hygiene. After therapy, pt sitting in w /c with call light/phone in reach. All needs met in room. Functional [place] Measure 0=Not Assessed/NA 4=Minimal Assistance 1=Total Assistance 5=Supervision or Setup 2=Maximal Assistance 6=Modified [place] 3=Moderate Assistance 7=Complete IndependenceIRFPAI Quality Coding Scale 6 Independent with activity with or without an assistive device 5 Patient requires set up or clean up by helper. Patient completes activity by themselves 4 Supervision or touching assist (CGA). Bath provide cues , steadying assist 3 The helper provides less than half the effort to complete the activity 2 The helper provides more than half the effort to complete the activity 1 Dependent. The helper does all the effort to complete an activity 7 Patient refused to complete or attempt activity 9 The patient did not perform the activity before the current illness or injury 88 Not attempted due to Medical conditions or safety concerns Grooming (FIM): 6 Oral Hygiene (QC): 6 Bathing (FIM): 5 Bathing Location: L Arm, R Arm, L Upper Leg, R Upper Leg, L Lower Leg ( including foot), R Lower Leg (including foot), Chest, Abdomen, Buttocks, Perineal Area Shower/Bathe Self (QC): 5 Upper Body (FIM): 5 Upper Body Dressing (QC): 5 Lower Body Dressing (FIM): 3 Lower Body Dressing (QC): 3 On/Off Footwear (QC): 2 Toileting (FIM): 4 Toileting Hygiene (QC): 3 Transfers (B, C, W/C) (FIM): 4 (For stand pivot transfers using FWW.) Toilet/Commode Transfer (FIM): 4 Shower Transfer(FIM): 4 OT Short Term Goals Short Term Goals Time Frame: Dec 16, 2016 Lower Body Dressing(FIM): 3 Toilet/Commode Transfer(FIM): 3 Shower Transfer(FIM): 3 1=Demonstrate adherence to instructed precautions during ADL tasks. 2=Patient will verbalize/demonstrate understanding of assistive devices/ modifications for ADL. 3=Patient will improve strength/tolerance for activity to enable patient to perform ADL's. OT In Process Inspector Goals In Process Inspector Goals Time Frame: Jan 06, 2017 Eating (FIM): 6 Eating (QC): 6 Groomin Oral Hygiene (QC): 6 Bathing(FIM): 5 Shower/Bathe Self (QC): 5 Upper Body Dressing(FIM): 6 Upper Body Dressing (QC): 6 Lower Body Dressing(FIM): 6 Lower Body Dressing (QC): 6 On/Off Footwear (QC): 6 Toileting(FIM): 6 Toileting Hygiene (QC): 6 Toilet/Commode Transfer(FIM): 6 Toilet/Commode Transfer (QC): 6 Shower Transfer(FIM): 5 Comprehension(FIM): 4 (MET) Expression (FIM): 4 (MET) Social Interaction(FIM): 5 (MET) Problem Solving(FIM): 4 (MET) Memory(FIM): 4 (MET) Additional Goals: 1-Demonstrate ADL Tasks, 2-Verbalize Understanding, 3- ImproveStrength/Gonzalez 1=Demonstrate adherence to instructed precautions during ADL tasks. 2=Patient will verbalize/demonstrate understanding of assistive devices/ modifications for ADL. 3=Patient will improve strength/tolerance for activity to enable patient to perform ADL's. OT Education/Plan Problem List/Assessment Pt would benefit from skilled OT to increase his independence in basic self car to allow him to safely return home and to decrease caregiver burden Discharge Recommendations Plan/Recommendations: Continue POC Treatment Plan/Plan of Care Patient would benefit from OT for education, treatment and training to promote independence in ADL's, mobility, safety and/or upper extremity function for ADL' s. Plan of Care: ADL Retraining, Functional Mobility, Group Exercise/Act as Ind ( activity tolerance, exercise, education, funct mobility), UE Funct Exercise/Act , UE Neuromus Re-Ed/Coord Treatment Duration: Jan 06, 2017 Frequency: Twice Daily (5-6 times a week) Estimated Hrs Per Day: 1.5 hours per day Agreement: Yes Rehab Potential: Guarded Time/GCodes Start Time: 10:00 Stop Time: 11:00 Total Time Billed (hr/min): 60 Billed Treatment Time 1 visit-ADL 4 (60 min) DAVID ALMEIDA Dec 15, 2016 10:47
--- NOTE | 2016-12-15 12:04 | Physical Therapy Daily Note ---
PT Daily Note-Current Subjective pt. c/o pain at 9/10 after Rx. States he has 5 steps at home and never had difficulty with them before. Pain Numeric Pain Scale: 9 Location: Right Location Body Site: Hip Pain Description: Ache Appearance grimaces and whinces Mental Status Patient Orientation: Person, Place, Time, Situation Transfers Functional [place] Measure 0=Not Assessed/NA 4=Minimal Assistance 1=Total Assistance 5=Supervision or Setup 2=Maximal Assistance 6=Modified [place] 3=Moderate Assistance 7=Complete IndependenceIRFPAI Quality Coding Scale 6 Independent with activity with or without an assistive device 5 Patient requires set up or clean up by helper. Patient completes activity by themselves 4 Supervision or touching assist (CGA). [place] provide cues , steadying assist 3 The helper provides less than half the effort to complete the activity 2 The helper provides more than half the effort to complete the activity 1 Dependent. The helper does all the effort to complete an activity 7 Patient refused to complete or attempt activity 9 The patient did not perform the activity before the current illness or injury 88 Not attempted due to Medical conditions or safety concerns Transfers (B, C, W/C) (FIM): 4 Scootin Rollin Supine to/from Sit: 4 Sit to/from Stand: 5 Gait Training Does the Patient Walk?: Yes Gait (FIM): 1 Distance (FIM): 1=up to 49 ft (20ft,12ftx3) Gait Level of Assist: 3 Gait Persons Needed: 1 Gait Assistive Device: FWW slow, pain c/o, heavy wt bearing on FWW, one incident of near LOB requiring mod assist to recover Wheelchair Training Does the Pt Use a Wheelchair?: Yes Wheelchair (FIM): 5 Wheelchair Distance: 3=150 ft Wheelchair Level of Assist: 5 Type of Wheelchair: Manual discussed with pt. that he would likely benefit from FWW and manual w/c at home Exercises Supine Ex: Ankle pumps, Quad Set, Rolling, Glut sets, Heel Slides, Short Arc Quads, Scooting, Straight leg raise, Hip abd/add Supine Reps: 15 Assessment Current Status: Good Progress pain and fatigue limit Rx. Pt. still not ambulating functional distance PT Short Term Goals Short Term Goals Wheelchair Distance: 150' PT Alf Goals Stonemason Goals PT Stonemason Goals Time Frame: Jan 07, 2017 Transfers (B,C,W/C) (FIM): 5 Sit to Lying (QC): 4 Lying-Sitting on Side/Bed(QC): 4 Sit to Stand (QC): 4 Rollin Roll Left to Right (QC): 4 Chair/Tew-ti-Xqgjc Xfer(QC): 4 Car Transfer (QC): 4 Does the Patient Walk: No and Walking Goal IS indicated Gait (FIM): 1 Gait distance (FIM): 1=up to 49 ft (45) Distance: 45' Walk 10 feet (QC): 4 Walk 10ft-Uneven Surface(QC): 4 Walk 50ft with 2 Turns (QC): 9 Walk 150 ft (QC): 9 Gait Level of Assist: 5 Gait Assistive Device: FWW # of Steps: 1 1 Step (curb) (QC): 4 4 Steps (QC): 4 12 Steps (QC): 9 Stairs Level Of Assist: 4 Picking up an Object (QC): 4 PT Plan Treatment/Plan Treatment Plan: Continue Plan of Care Treatment Plan: Bed Mobility, Education, Functional Activity Gonzalez, Functional Strength, Group Therapy, Gait, Safety, Therapeutic Exercise, Transfers Treatment Duration: Jan 07, 2017 Frequency: At least 5-7 days/Wk (IRF) Estimated Hrs Per Day: 1.5 hours per day Patient and/or Family Agrees t: Yes Safety Risks/Education Patient Education: Gait Training, Transfer Techniques, Issued Written HEP, Correct Positioning, W/C Management, Disease Process, Safety Issues Teaching Recipient: Patient Teaching Methods: Demonstration, Discussion Response to Teaching: Verbalize Understanding, Return Demonstration, Reinforcement Needed Time/GCodes Time In: 1100 Time Out: 1200 Total Billed Treatment Time: 60 Total Billed Treatment 1,FA15m,GT15m,EX15m,WC15m G Codes Necessary: No GUNJAN DEL [place]LE SENIOR NET APPLICATION DEVELOPER Dec 15, 2016 12:04
[2016-12-15 13:30] VITALS: BP 124/72
--- NOTE | 2016-12-15 13:44 | Occupational Ther Daily Note ---
OT Current Status-Daily Note Subjective Pt sitting in w/c. Grandson and daughter in room with pt. Daughter wanting to talk to team about her father. Pt agreed to therapy. Mental Status/Objective Patient Orientation: Person, Place, Time, Situation Functional [place] Measure 0=Not Assessed/NA 4=Minimal Assistance 1=Total Assistance 5=Supervision or Setup 2=Maximal Assistance 6=Modified [place] 3=Moderate Assistance 7=Complete [place] ADL-Treatment Functional [place] Measure 0=Not Assessed/NA 4=Minimal Assistance 1=Total Assistance 5=Supervision or Setup 2=Maximal Assistance 6=Modified [place] 3=Moderate Assistance 7=Complete IndependenceIRFPAI Quality Coding Scale 6 Independent with activity with or without an assistive device 5 Patient requires set up or clean up by helper. Patient completes activity by themselves 4 Supervision or touching assist (CGA). [place] provide cues , steadying assist 3 The helper provides less than half the effort to complete the activity 2 The helper provides more than half the effort to complete the activity 1 Dependent. The helper does all the effort to complete an activity 7 Patient refused to complete or attempt activity 9 The patient did not perform the activity before the current illness or injury 88 Not attempted due to Medical conditions or safety concerns Other Treatment Pt able to maneuver w/c with hands around ARU. Pt was unable to use LE's due to pain to maneuver w/c. Pt is able to lift R LE with L LE and hold it. Pt then completed UE dowel yeimy exercises with 3# wt attached, 3 sets 10 reps for 3 shldr exercises. 5 arm chair pushups using elbows. Pt able to just relieve pressure off of hips using elbows, unable to use hands to push off seat. After therapy, pt sitting in w/c with grandson present. All needs met in room. OT Short Term Goals Short Term Goals Time Frame: Dec 16, 2016 Lower Body Dressing(FIM): 3 Toilet/Commode Transfer(FIM): 3 Shower Transfer(FIM): 3 1=Demonstrate adherence to instructed precautions during ADL tasks. 2=Patient will verbalize/demonstrate understanding of assistive devices/ modifications for ADL. 3=Patient will improve strength/tolerance for activity to enable patient to perform ADL's. OT Half-Way Goals Half-Way Goals Time Frame: Jan 06, 2017 Eating (FIM): 6 Eating (QC): 6 Groomin Oral Hygiene (QC): 6 Bathing(FIM): 5 Shower/Bathe Self (QC): 5 Upper Body Dressing(FIM): 6 Upper Body Dressing (QC): 6 Lower Body Dressing(FIM): 6 Lower Body Dressing (QC): 6 On/Off Footwear (QC): 6 Toileting(FIM): 6 Toileting Hygiene (QC): 6 Toilet/Commode Transfer(FIM): 6 Toilet/Commode Transfer (QC): 6 Shower Transfer(FIM): 5 Comprehension(FIM): 4 (MET) Expression (FIM): 4 (MET) Social Interaction(FIM): 5 (MET) Problem Solving(FIM): 4 (MET) Memory(FIM): 4 (MET) Additional Goals: 1-Demonstrate ADL Tasks, 2-Verbalize Understanding, 3- ImproveStrength/Gonzalez 1=Demonstrate adherence to instructed precautions during ADL tasks. 2=Patient will verbalize/demonstrate understanding of assistive devices/ modifications for ADL. 3=Patient will improve strength/tolerance for activity to enable patient to perform ADL's. OT Education/Plan Problem List/Assessment Pt would benefit from skilled OT to increase his independence in basic self car to allow him to safely return home and to decrease caregiver burden Discharge Recommendations Plan/Recommendations: Continue POC Treatment Plan/Plan of Care Patient would benefit from OT for education, treatment and training to promote independence in ADL's, mobility, safety and/or upper extremity function for ADL' s. Plan of Care: ADL Retraining, Functional Mobility, Group Exercise/Act as Ind ( activity tolerance, exercise, education, funct mobility), UE Funct Exercise/Act , UE Neuromus Re-Ed/Coord Treatment Duration: Jan 06, 2017 Frequency: Twice Daily (5-6 times a week) Estimated Hrs Per Day: 1.5 hours per day Agreement: Yes Rehab Potential: Guarded Time/GCodes Start Time: 13:00 Stop Time: 13:30 Total Time Billed (hr/min): 30 Billed Treatment Time 1 visit-EX 1 (20 min) FA 1 (10 min) DAVID ALMEIDA Dec 15, 2016 13:44
--- NOTE | 2016-12-15 15:17 | Physical Therapy Daily Note ---
PT Daily Note-Current Subjective Pt. agrees to Rx. After initially attempting ascending/descending pink single step with FWW and having difficulty descending pt. stated he felt sure he could do this if he was at his house with one rail on left that is sturdier. This was attempted and pt. then states he was mistaken and stairs are just too hard. Transfers Functional [place] Measure 0=Not Assessed/NA 4=Minimal Assistance 1=Total Assistance 5=Supervision or Setup 2=Maximal Assistance 6=Modified [place] 3=Moderate Assistance 7=Complete IndependenceIRFPAI Quality Coding Scale 6 Independent with activity with or without an assistive device 5 Patient requires set up or clean up by helper. Patient completes activity by themselves 4 Supervision or touching assist (CGA). [place] provide cues , steadying assist 3 The helper provides less than half the effort to complete the activity 2 The helper provides more than half the effort to complete the activity 1 Dependent. The helper does all the effort to complete an activity 7 Patient refused to complete or attempt activity 9 The patient did not perform the activity before the current illness or injury 88 Not attempted due to Medical conditions or safety concerns Stair Training Stair Training: Handrails/: 1 handrail, uses walker Stairs (FIM): 1 #of Steps: 2 Stairs: Pattern: Step to Level of Assist: 2 up and down pink single step with FWW and assist of 2 , attempted up steps with rail and again pt needed assist 2 as he melts while in single leg wt bearing. Assessment Current Status: Fair Progress pt. continues dependent for all mobility, PT Short Term Goals Short Term Goals Wheelchair Distance: 150' PT Senior Living Goals Senior Living Goals PT Manager Heart Goals Time Frame: Jan 07, 2017 Transfers (B,C,W/C) (FIM): 5 Sit to Lying (QC): 4 Lying-Sitting on Side/Bed(QC): 4 Sit to Stand (QC): 4 Rollin Roll Left to Right (QC): 4 Chair/Zlo-nb-Tfgwe Xfer(QC): 4 Car Transfer (QC): 4 Does the Patient Walk: No and Walking Goal IS indicated Gait (FIM): 1 Gait distance (FIM): 1=up to 49 ft (45) Distance: 45' Walk 10 feet (QC): 4 Walk 10ft-Uneven Surface(QC): 4 Walk 50ft with 2 Turns (QC): 9 Walk 150 ft (QC): 9 Gait Level of Assist: 5 Gait Assistive Device: FWW # of Steps: 1 1 Step (curb) (QC): 4 4 Steps (QC): 4 12 Steps (QC): 9 Stairs Level Of Assist: 4 Picking up an Object (QC): 4 PT Plan Treatment/Plan Treatment Plan: Continue Plan of Care Treatment Plan: Bed Mobility, Education, Functional Activity Gonzalez, Functional Strength, Group Therapy, Gait, Safety, Therapeutic Exercise, Transfers Treatment Duration: Jan 07, 2017 Frequency: At least 5-7 days/Wk (IRF) Estimated Hrs Per Day: 1.5 hours per day Patient and/or Family Agrees t: Yes Safety Risks/Education Patient Education: Gait Training, Transfer Techniques, Steps Teaching Recipient: Patient Teaching Methods: Demonstration, Discussion Response to Teaching: Verbalize Understanding, Return Demonstration, Reinforcement Needed Time/GCodes Time In: 1430 Time Out: 1500 Total Billed Treatment Time: 30 Total Billed Treatment 1,GT30m G Codes Necessary: GUNJAN Woods CALCINER OPERATOR HELPER Dec 15, 2016 15:17
[2016-12-15 18:18] VITALS: BP 139/76
[2016-12-15] MEDS: SIMvastatin 20 MG (ZOCOR) TAB PO SCH (20:39)
--- NOTE | 2016-12-15 21:29 | PM & R (SOAP) Progress Note ---
Subjective Time Seen by Provider: 21:15 Subjective/Events-last exam Patient was seen in his room this evening Patient concerned re his fluid reastriction due to Hyponatremia Will recheck labs,Patient min assist for transfers Objective Exam Last Set of Vital Signs Vital Signs Date Time Temp Pulse Resp B/P (MAP) Pulse Ox O2 Delivery O2 Flow Rate FiO2 12/15/16 18:18 97.3 96 18 139/76 94 Room Air Capillary Refill : Less Than 3 Seconds I&O Intake and Output 12/15/16 00:00 Intake Total 1140 ml Output Total 2925 ml Balance -1785 ml Intake Oral 1140 ml Output Urine Total 2925 ml # Voids 1 # Bowel Movements 1 General: Alert, Oriented X3, Cooperative, No Acute Distress HEENT: Atraumatic, PERRLA, EOMI, Mucous Memb Moist/[place] Neck: Supple, No JVD Lungs: Clear to Auscultation Heart: Regular Rate Abdomen: Normal Bowel Sounds, Soft, No Tenderness (trace edema rt ankle) Neuro: Other (guarding rt hip generalized weakness) Psych/Mental Status: Other (Short term memory loss) Assessment/Plan Assessment Rt hip frx s/p IM nailing 12-04-16 Dr Shelia ARCINIEGA rt hip Postop anemia Postop electrolyte abnormality-hyponatremia COPD stable Tobaccoism currently absstaining Gerd Protonix ordered-improved Chronic back pain Voltaren ordered HTN controlled Plan Continue PT/OT/ST Recheck Labs in AM F/U with Hospitalist prn Pain management Team Conference held earlier today-See report for full functional update and POC Discharge date set tentatively for 12/23/16 MAYKEL HUERTAS MD Dec 15, 2016 21:28
[2016-12-16 05:15] VITALS: BP 151/94
[2016-12-16 05:28] LABS: BASOPHILS # (AUTO) 0.1 10^3/uL (0.0-0.1); BASOPHILS % (AUTO) 1 % (0-10); EOSINOPHILS # (AUTO) 0.2 10^3/uL (0.0-0.3); EOSINOPHILS % (AUTO) 3 % (0-10); LYMPHOCYTES # (AUTO) 1.3 X 10^3 (1.0-4.0); LYMPHOCYTES % (AUTO) 19 % (12-44); MEAN CORPUSCULAR HEMOGLOBIN 33 PG (25-34); MEAN CORPUSCULAR HGB CONC 33 G/DL (32-36); MEAN CORPUSCULAR VOLUME 98 FL (80-99); MONOCYTES # (AUTO) 0.9 X 10^3 (0.0-1.0); MONOCYTES % (AUTO) 13 % (0-12); NEUTROPHILS # (AUTO) 4.3 X 10^3 (1.8-7.8); NEUTROPHILS % (AUTO) 64 % (42-75); PLATELET COUNT 634 10^3/uL (130-400); RED BLOOD COUNT 3.61 10^6/uL (4.35-5.85); RED CELL DISTRIBUTION WIDTH 14.4 % (10.0-14.5); WHITE BLOOD COUNT 6.8 10^3/uL (4.3-11.0)
[2016-12-16 05:48] LABS: ALANINE AMINOTRANSFERASE 17 U/L (0-55); ALBUMIN 3.5 GM/DL (3.2-4.5); ANION GAP 9 MMOL/L (5-14); ASPARTATE AMINO TRANSFERASE 21 U/L (5-34); BILIRUBIN,TOTAL 0.8 MG/DL (0.1-1.0); BLOOD UREA NITROGEN 8 MG/DL (7-18); BUN/CREATININE RATIO 14; CALCIUM 9.4 MG/DL (8.5-10.1); CARBON DIOXIDE 22 MMOL/L (21-32); CHLORIDE 99 MMOL/L (98-107); CREATININE SERUM 0.59 MG/DL (0.60-1.30); GFR ESTIMATED > 60; GLUCOSE 89 MG/DL (70-105); POTASSIUM 4.5 MMOL/L (3.6-5.0); SODIUM 130 MMOL/L (135-145); TOTAL PROTEIN 6.4 GM/DL (6.4-8.2)
[2016-12-16] MEDS: KCL 10 MEQ TAB (MICRO K) PO SCH ×3 (06:16→17:16)
[2016-12-16] MEDS: PANTOPRAZOLE 20 MG TABLET (PROTONIX) PO SCH (06:16)
[2016-12-16] MEDS: HYDROcodone/APAP 10 MG/325 MG (LORTAB) TAB PO PRN ×3 (06:16→17:17)
--- NOTE | 2016-12-16 07:46 | PM & R (SOAP) Progress Note ---
Subjective Time Seen by Provider: 07:35 Subjective/Events-last exam Patient was seen in his room this AM Patient Min assist for transfers Patient eating and sleeping OK Objective Exam Last Set of Vital Signs Vital Signs Date Time Temp Pulse Resp B/P (MAP) Pulse Ox O2 Delivery O2 Flow Rate FiO2 12/16/16 05:15 97.3 95 16 151/94 97 Room Air Capillary Refill : Less Than 3 Seconds I&O Intake and Output 12/15/16 23:59 Intake Total 1160 ml Output Total 2175 ml Balance -1015 ml Intake Oral 1160 ml Output Urine Total 2175 ml General: Alert, Oriented X3, Cooperative, No Acute Distress HEENT: Atraumatic, PERRLA, EOMI, Mucous Memb Moist/[place] Neck: Supple, No JVD Lungs: Clear to Auscultation Heart: Regular Rate Abdomen: Normal Bowel Sounds, Soft, No Tenderness (trace edema rt ankle) Neuro: Other (guarding rt hip generalized weakness) Psych/Mental Status: Other (Short term memory loss) Results Lab Laboratory Tests 12/16/16 04:52: White Blood Count 6.8, Red Blood Count 3.61L, Hemoglobin 11.8L, Hematocrit 35L, Mean Corpuscular Volume 98, Mean Corpuscular Hemoglobin 33, Mean Corpuscular Hemoglobin Concent 33, Red Cell Distribution Width 14.4, Platelet Count 634H, Mean Platelet Volume 8.0, Neutrophils (%) (Auto) 64, Lymphocytes (%) (Auto) 19, Monocytes (%) (Auto) 13H, Eosinophils (%) (Auto) 3, Basophils (%) (Auto) 1, Neutrophils # (Auto) 4.3, Lymphocytes # (Auto) 1.3, Monocytes # (Auto) 0.9, Eosinophils # (Auto) 0.2, Basophils # (Auto) 0.1, Sodium Level 130L, Potassium Level 4.5, Chloride Level 99, Carbon Dioxide Level 22, Anion Gap 9, Blood Urea Nitrogen 8, Creatinine 0.59L, Estimat Glomerular Filtration Rate > 60, BUN/ Creatinine Ratio 14, Glucose Level 89, Calcium Level 9.4, Total Bilirubin 0.8, Aspartate Amino Transf (AST/SGOT) 21, Alanine Aminotransferase (ALT/SGPT) 17, Alkaline Phosphatase 81, Total Protein 6.4, Albumin 3.5 Assessment/Plan Assessment Rt hip frx s/p IM nailing 12-04-16 Dr Shelia ARCINIEGA rt hip Postop anemia Postop electrolyte abnormality-hyponatremia COPD stable Tobaccoism currently absstaining Gerd Protonix ordered-improved Chronic back pain Voltaren ordered HTN controlled Plan Continue PT/OT/ST Recheck Labs in AM F/U with Hospitalist prn Pain management Team Conference held yesterday-See report for full functional update and POC Discharge date set tentatively for 12/23/16 Patient looking forward to discharge date MAYKEL HUERTAS MD Dec 16, 2016 07:46
[2016-12-16] MEDS: METOCLOPRAMIDE 10 MG (REGLAN) TAB PO SCH ×2 (08:22→20:54)
[2016-12-16] MEDS: CYCLOBENZAPRINE 10 MG (FLEXERIL) TAB PO SCH ×3 (08:22→20:54)
[2016-12-16] MEDS: ASPIRIN E.C. 81 MG (ECOTRIN) TAB PO SCH (08:22)
[2016-12-16] MEDS: amLODIPine 5 MG (NORVASC) TAB PO SCH (08:22)
[2016-12-16] MEDS: lisINopril 10 MG (PRINIVIL) TAB PO SCH (08:22)
[2016-12-16] MEDS: CLOPIDOGREL 75 MG (PLAVIX) TABLET PO SCH (08:22)
[2016-12-16] MEDS: LORATADINE (CLARITIN) 10 MG TAB PO SCH (08:22)
[2016-12-16] MEDS: FLUTICASONE NASAL SPRAY (FLONASE) 16 GM BTL NS SCH (08:23)
[2016-12-16] MEDS: DICLOFENAC 1% GEL 100 GM (VOLTAREN) TUBE TOP SCH ×4 (08:23→20:54)
[2016-12-16] MEDS: SENNA W/DOCUSATE (SENOKOT S) TABLET PO SCH ×2 (08:27→20:55)
[2016-12-16] MEDS: LACTULOSE SYRUP 10GM/15ML (ENULOSE) 30ML UDC PO SCH ×2 (08:27→17:22)
--- NOTE | 2016-12-16 10:12 | Occupational Ther Daily Note ---
OT Current Status-Daily Note Subjective Pt alert, sitting in w/c. Pt agreed to therapy. No c/o pain. Mental Status/Objective Patient Orientation: Person, Place, Time, Situation Functional [place] Measure 0=Not Assessed/NA 4=Minimal Assistance 1=Total Assistance 5=Supervision or Setup 2=Maximal Assistance 6=Modified [place] 3=Moderate Assistance 7=Complete [place] ADL-Treatment Functional [place] Measure 0=Not Assessed/NA 4=Minimal Assistance 1=Total Assistance 5=Supervision or Setup 2=Maximal Assistance 6=Modified [place] 3=Moderate Assistance 7=Complete IndependenceIRFPAI Quality Coding Scale 6 Independent with activity with or without an assistive device 5 Patient requires set up or clean up by helper. Patient completes activity by themselves 4 Supervision or touching assist (CGA). [place] provide cues , steadying assist 3 The helper provides less than half the effort to complete the activity 2 The helper provides more than half the effort to complete the activity 1 Dependent. The helper does all the effort to complete an activity 7 Patient refused to complete or attempt activity 9 The patient did not perform the activity before the current illness or injury 88 Not attempted due to Medical conditions or safety concerns Grooming (FIM): 6 (At w/c level, pt is able to complete grooming at sink.) Bathing (FIM): 5 (Supervision. Using shower bench, grabbar and hand held shower pt is able to complete bathing.) Upper Body (FIM): 5 (After set up, pt is able to complete upper body dressing.) Lower Body Dressing (FIM): 3 (After set up, pt is able to don/doff lower body clothing over L LE, assist to tie L shoe. Pt requires assist to get lower body clothing over R foot due to pain and decreased mobility with R LE. Pt is able to hike pants over hips with CGA to stabilize in standing.) Toileting (FIM): 4 (Pt is able to cleanse self and CGA in standing when hiking pants over hips.) Transfers (B, C, W/C) (FIM): 4 (Increased pain with movement or wt bearing on R LE. Pt is able to complete stand pivot transfers when utilizing grabbars, FWW and w/c.) Toilet/Commode Transfer (FIM): 4 (Increased pain with movement or wt bearing on R LE. Pt is able to complete stand pivot transfers when utilizing grabbars, FWW and w/c.) Shower Transfer(FIM): 4 (Increased pain with movement or wt bearing on R LE. Pt is able to complete stand pivot transfers when utilizing grabbars, shower bench and w/c.) Other Treatment Pt educated on bathroom equipment for safety. Pt has small walk-in shower and needed to know what type of seat or bench to place in shower. Catalog given and other places to acquire AE for bathroom. After therapy, pt sitting in w/c with call light/phone in reach. All needs met in room. Education OT Patient Education: Use of adapted equipment Teaching Recipient: Patient Teaching Methods: Demonstration, Handout Response to Teaching: Verbalize Understanding, Reinforcement Needed OT Short Term Goals Short Term Goals Time Frame: Dec 16, 2016 Lower Body Dressing(FIM): 3 Toilet/Commode Transfer(FIM): 3 Shower Transfer(FIM): 3 1=Demonstrate adherence to instructed precautions during ADL tasks. 2=Patient will verbalize/demonstrate understanding of assistive devices/ modifications for ADL. 3=Patient will improve strength/tolerance for activity to enable patient to perform ADL's. OT Assisted Goals Time Study Statistician Goals Time Frame: Jan 06, 2017 Eating (FIM): 6 Eating (QC): 6 Groomin Oral Hygiene (QC): 6 Bathing(FIM): 5 Shower/Bathe Self (QC): 5 Upper Body Dressing(FIM): 6 Upper Body Dressing (QC): 6 Lower Body Dressing(FIM): 6 Lower Body Dressing (QC): 6 On/Off Footwear (QC): 6 Toileting(FIM): 6 Toileting Hygiene (QC): 6 Toilet/Commode Transfer(FIM): 6 Toilet/Commode Transfer (QC): 6 Shower Transfer(FIM): 5 Comprehension(FIM): 4 (MET) Expression (FIM): 4 (MET) Social Interaction(FIM): 5 (MET) Problem Solving(FIM): 4 (MET) Memory(FIM): 4 (MET) Additional Goals: 1-Demonstrate ADL Tasks, 2-Verbalize Understanding, 3- ImproveStrength/Gonzalez 1=Demonstrate adherence to instructed precautions during ADL tasks. 2=Patient will verbalize/demonstrate understanding of assistive devices/ modifications for ADL. 3=Patient will improve strength/tolerance for activity to enable patient to perform ADL's. OT Education/Plan Problem List/Assessment Pt would benefit from skilled OT to increase his independence in basic self car to allow him to safely return home and to decrease caregiver burden Discharge Recommendations Plan/Recommendations: Continue POC Treatment Plan/Plan of Care Patient would benefit from OT for education, treatment and training to promote independence in ADL's, mobility, safety and/or upper extremity function for ADL' s. Plan of Care: ADL Retraining, Functional Mobility, Group Exercise/Act as Ind ( activity tolerance, exercise, education, funct mobility), UE Funct Exercise/Act , UE Neuromus Re-Ed/Coord Treatment Duration: Jan 06, 2017 Frequency: Twice Daily (5-6 times a week) Estimated Hrs Per Day: 1.5 hours per day Agreement: Yes Rehab Potential: Guarded Time/GCodes Start Time: 10:00 Stop Time: 11:30 Total Time Billed (hr/min): 90 Billed Treatment Time 1 visit-ADL 4 (60 min) FA 2 (30 min) DAVID ALMEIDA Dec 16, 2016 10:12
--- NOTE | 2016-12-16 11:02 | Physical Therapy Daily Note ---
PT Daily Note-Current Subjective Pt laying Supine in bed upon arrival. Pt reports stiffness in hip flexors due to not being up yet this morning. Pt agrees to PT. Pain Numeric Pain Scale: 7 Location Body Site: Hip Pain Description: Ache, Tightness Mental Status Patient Orientation: Person, Place, Situation Transfers Functional [place] Measure 0=Not Assessed/NA 4=Minimal Assistance 1=Total Assistance 5=Supervision or Setup 2=Maximal Assistance 6=Modified [place] 3=Moderate Assistance 7=Complete IndependenceIRFPAI Quality Coding Scale 6 Independent with activity with or without an assistive device 5 Patient requires set up or clean up by helper. Patient completes activity by themselves 4 Supervision or touching assist (CGA). [place] provide cues , steadying assist 3 The helper provides less than half the effort to complete the activity 2 The helper provides more than half the effort to complete the activity 1 Dependent. The helper does all the effort to complete an activity 7 Patient refused to complete or attempt activity 9 The patient did not perform the activity before the current illness or injury 88 Not attempted due to Medical conditions or safety concerns Scootin Rollin Roll Left to Right (QC): 4 Supine to/from Sit: 4 Sit to/from Stand: 4 Sit to Lying (QC): 4 Sit to Stand (QC): 4 Chair/Weo-sw-Yvtyn Xfer(QC): 4 Bed to/from Chair: 4 Weight Bearing Weight Bearing Restriction: Full Weight Bearing Location Restriction: LE Bilateral Gait Training Does the Patient Walk?: Yes Distance (FIM): 1=up to 49 ft Distance: 12' X2 Gait Assistive Device: FWW Pt has difficulty initiating movement especially in RLE. Pt unable to walk longer distance. Wheelchair Training Does the Pt Use a Wheelchair?: Yes Wheelchair Distance: 3=150 ft Distance: 200' Wheelchair Level of Assist: 5 Wheel 50 ft with 2 turns (QC): 5 Wheel 150 ft (QC): 5 Type of Wheelchair: Manual Exercises Supine Ex: Ankle pumps, Quad Set, Glut sets, Short Arc Quads, Straight leg raise, Hip abd/add Supine Reps: 15 Treatments Pt transferred from Supine to EOB using bed rails at Min A then EOB to Standing using FWW at SBA. Pt ambulated short distance on way to restroom using FWW at Min-Mod A. Pt transferred to [facility] and decided to not use restroom. Pt propelled [facility] to Therapy room. Pt transferred to mat for Supine EX at Min A for assistance getting R leg onto mat. Pt then returns to [facility] to propel back to room. Pt rest with all needs met at end of tx and OT to arrive shortly. Assessment Current Status: Poor Progress Pt continues to report pain in R hip and tightness in both hips. Pt lacks motivation during tx to progress and push himself. PT Short Term Goals Short Term Goals Wheelchair Distance: 150' PT Channeler Goals [facility] Goals PT [facility] Goals Time Frame: Jan 07, 2017 Transfers (B,C,W/C) (FIM): 5 Sit to Lying (QC): 4 Lying-Sitting on Side/Bed(QC): 4 Sit to Stand (QC): 4 Rollin Roll Left to Right (QC): 4 Chair/Efm-qd-Fdntm Xfer(QC): 4 Car Transfer (QC): 4 Does the Patient Walk: No and Walking Goal IS indicated Gait (FIM): 1 Gait distance (FIM): 1=up to 49 ft (45) Distance: 45' Walk 10 feet (QC): 4 Walk 10ft-Uneven Surface(QC): 4 Walk 50ft with 2 Turns (QC): 9 Walk 150 ft (QC): 9 Gait Level of Assist: 5 Gait Assistive Device: FWW # of Steps: 1 1 Step (curb) (QC): 4 4 Steps (QC): 4 12 Steps (QC): 9 Stairs Level Of Assist: 4 Picking up an Object (QC): 4 PT Plan Problem List Problem List: Activity Tolerance, Functional Strength, Safety, Balance, Gait, Transfer, Bed Mobility Treatment/Plan Treatment Plan: Continue Plan of Care Treatment Plan: Bed Mobility, Education, Functional Activity Gonzalez, Functional Strength, Group Therapy, Gait, Safety, Therapeutic Exercise, Transfers Treatment Duration: Jan 07, 2017 Frequency: At least 5-7 days/Wk (IRF) Estimated Hrs Per Day: 1.5 hours per day Patient and/or Family Agrees t: Yes Safety Risks/Education Patient Education: Gait Training, Transfer Techniques, Correct Positioning, W/ C Management, Safety Issues Teaching Recipient: Patient Teaching Methods: Discussion Response to Teaching: Verbalize Understanding Time/GCodes Time In: 915 Time Out: 1000 Total Billed Treatment Time: 45 Total Billed Treatment visit, EX (20m), GT (10m) & [facility] (15m) CATALINA GRAHAM ENGRAVER COPPERPLATE Dec 16, 2016 11:02
--- NOTE | 2016-12-16 15:33 | Physical Therapy Daily Note ---
PT Daily Note-Current Subjective Pt laying Supine in bed upon arrival. Pt agrees to PT. Pain Numeric Pain Scale: 7 Location: Right Location Body Site: Hip Pain Description: Ache, Tightness Mental Status Patient Orientation: Person, Place, Situation Transfers Functional [place] Measure 0=Not Assessed/NA 4=Minimal Assistance 1=Total Assistance 5=Supervision or Setup 2=Maximal Assistance 6=Modified [place] 3=Moderate Assistance 7=Complete IndependenceIRFPAI Quality Coding Scale 6 Independent with activity with or without an assistive device 5 Patient requires set up or clean up by helper. Patient completes activity by themselves 4 Supervision or touching assist ([employer]). [place] provide cues , steadying assist 3 The helper provides less than half the effort to complete the activity 2 The helper provides more than half the effort to complete the activity 1 Dependent. The helper does all the effort to complete an activity 7 Patient refused to complete or attempt activity 9 The patient did not perform the activity before the current illness or injury 88 Not attempted due to Medical conditions or safety concerns Scootin Rollin Roll Left to Right (QC): 4 Supine to/from Sit: 4 Sit to/from Stand: 4 Sit to Lying (QC): 4 Sit to Stand (QC): 4 Chair/Xvu-nk-Macsr Xfer(QC): 4 Bed to/from Chair: 4 Weight Bearing Weight Bearing Restriction: Full Weight Bearing Location Restriction: LE Bilateral Gait Training Does the Patient Walk?: Yes Distance (FIM): 1=up to 49 ft Distance: 15' Walk 10 feet (QC): 4 Gait Level of Assist: 4 Gait Persons Needed: 1 Gait Assistive Device: FWW Pt only able to walk short distance due to continued pain in R hip. Wheelchair Training Does the Pt Use a Wheelchair?: Yes Wheelchair Distance: 3=150 ft Distance: 200' Wheelchair Level of Assist: 5 Wheel 50 ft with 2 turns (QC): 5 Wheel 150 ft (QC): 5 Type of Wheelchair: Manual Exercises Supine Ex: Ankle pumps, Quad Set, Glut sets, Heel Slides Supine Reps: 15 Treatments Pt transferred from Supine to EOB using bed rails to put on shoes for tx. Pt then transferred from EOB to Standing using FWW at [employer]. Pt ambulated using FWW at Min-Mod A before fatiguing and returning to [facility]. Pt propelled [facility] to Therapy Gym before transferring to mat for Supine Ex. Pt transferred back to [facility] due to fatigue and propelled back to room. Pt rested in [facility] at end of tx with all needs met. Assessment Current Status: Poor Progress Pt continued to report pain and tightness in R hip and fatigues easy. PT Short Term Goals Short Term Goals Wheelchair Distance: 200' PT [facility] Goals [facility] Goals PT [facility] Goals Time Frame: Jan 07, 2017 Transfers (B,C,W/C) (FIM): 5 Sit to Lying (QC): 4 Lying-Sitting on Side/Bed(QC): 4 Sit to Stand (QC): 4 Rollin Roll Left to Right (QC): 4 Chair/Kai-sg-Sdxdl Xfer(QC): 4 Car Transfer (QC): 4 Does the Patient Walk: No and Walking Goal IS indicated Gait (FIM): 1 Gait distance (FIM): 1=up to 49 ft (45) Distance: 45' Walk 10 feet (QC): 4 Walk 10ft-Uneven Surface(QC): 4 Walk 50ft with 2 Turns (QC): 9 Walk 150 ft (QC): 9 Gait Level of Assist: 5 Gait Assistive Device: FWW # of Steps: 1 1 Step (curb) (QC): 4 4 Steps (QC): 4 12 Steps (QC): 9 Stairs Level Of Assist: 4 Picking up an Object (QC): 4 PT Plan Problem List Problem List: Activity Tolerance, Functional Strength, Safety, Balance, Gait, Transfer, Bed Mobility Treatment/Plan Treatment Plan: Continue Plan of Care Treatment Plan: Bed Mobility, Education, Functional Activity Gonzalez, Functional Strength, Group Therapy, Gait, Safety, Therapeutic Exercise, Transfers Treatment Duration: Jan 07, 2017 Frequency: At least 5-7 days/Wk (IRF) Estimated Hrs Per Day: 1.5 hours per day Patient and/or Family Agrees t: Yes Safety Risks/Education Patient Education: Gait Training, Transfer Techniques, Correct Positioning, W/ C Management, Safety Issues Teaching Recipient: Patient Teaching Methods: Discussion Response to Teaching: Verbalize Understanding Time/GCodes Time In: 1400 Time Out: 1445 Total Billed Treatment Time: 45 Total Billed Treatment visit, GT (10m), EX (20m) & [facility] (15m) CATALINA GRAHAM PTA Dec 16, 2016 15:33
[2016-12-16 18:17] VITALS: BP 121/81
[2016-12-16] MEDS: SIMvastatin 20 MG (ZOCOR) TAB PO SCH (20:54)
[2016-12-17 05:37] VITALS: BP 139/82
[2016-12-17] MEDS: KCL 10 MEQ TAB (MICRO K) PO SCH ×3 (05:46→16:45)
[2016-12-17] MEDS: HYDROcodone/APAP 10 MG/325 MG (LORTAB) TAB PO PRN ×3 (05:46→16:46)
[2016-12-17] MEDS: PANTOPRAZOLE 20 MG TABLET (PROTONIX) PO SCH (05:46)
[2016-12-17] MEDS: SENNA W/DOCUSATE (SENOKOT S) TABLET PO SCH ×2 (08:49→21:14)
[2016-12-17] MEDS: lisINopril 10 MG (PRINIVIL) TAB PO SCH (08:50)
[2016-12-17] MEDS: LORATADINE (CLARITIN) 10 MG TAB PO SCH (08:50)
[2016-12-17] MEDS: METOCLOPRAMIDE 10 MG (REGLAN) TAB PO SCH ×2 (08:50→21:14)
[2016-12-17] MEDS: amLODIPine 5 MG (NORVASC) TAB PO SCH (08:50)
[2016-12-17] MEDS: CYCLOBENZAPRINE 10 MG (FLEXERIL) TAB PO SCH ×3 (08:50→21:14)
[2016-12-17] MEDS: LACTULOSE SYRUP 10GM/15ML (ENULOSE) 30ML UDC PO SCH ×2 (08:50→21:14)
[2016-12-17] MEDS: ASPIRIN E.C. 81 MG (ECOTRIN) TAB PO SCH (08:50)
[2016-12-17] MEDS: CLOPIDOGREL 75 MG (PLAVIX) TABLET PO SCH (08:50)
[2016-12-17] MEDS: FLUTICASONE NASAL SPRAY (FLONASE) 16 GM BTL NS SCH (08:53)
[2016-12-17] MEDS: DICLOFENAC 1% GEL 100 GM (VOLTAREN) TUBE TOP SCH ×4 (08:53→21:14)
--- NOTE | 2016-12-17 09:16 | PM & R (SOAP) Progress Note ---
Subjective Time Seen by Provider: 07:40 Subjective/Events-last exam Patient was seen in his room this AM Patient min assist for transfers,Labs noted Remains hyponatremic-on fluid restriction Review of Systems Musculoskeletal: back pain, leg pain Objective Exam Last Set of Vital Signs Vital Signs Date Time Temp Pulse Resp B/P (MAP) Pulse Ox O2 Delivery O2 Flow Rate FiO2 12/17/16 05:37 97.0 97 18 139/82 95 Room Air Capillary Refill : Less Than 3 Seconds I&O Intake and Output 12/17/16 00:00 Intake Total 1000 ml Output Total 2300 ml Balance -1300 ml Intake Oral 1000 ml Output Urine Total 2300 ml General: Alert, Oriented X3, Cooperative, No Acute Distress HEENT: Atraumatic, PERRLA, EOMI, Mucous Memb Moist/[place] Neck: Supple, No JVD Lungs: Clear to Auscultation Heart: Regular Rate Abdomen: Normal Bowel Sounds, Soft, No Tenderness (trace edema rt ankle) Neuro: Other (guarding rt hip generalized weakness) Psych/Mental Status: Other (Short term memory loss) Results Lab Laboratory Tests 12/16/16 04:52: White Blood Count 6.8, Red Blood Count 3.61L, Hemoglobin 11.8L, Hematocrit 35L, Mean Corpuscular Volume 98, Mean Corpuscular Hemoglobin 33, Mean Corpuscular Hemoglobin Concent 33, Red Cell Distribution Width 14.4, Platelet Count 634H, Mean Platelet Volume 8.0, Neutrophils (%) (Auto) 64, Lymphocytes (%) (Auto) 19, Monocytes (%) (Auto) 13H, Eosinophils (%) (Auto) 3, Basophils (%) (Auto) 1, Neutrophils # (Auto) 4.3, Lymphocytes # (Auto) 1.3, Monocytes # (Auto) 0.9, Eosinophils # (Auto) 0.2, Basophils # (Auto) 0.1, Sodium Level 130L, Potassium Level 4.5, Chloride Level 99, Carbon Dioxide Level 22, Anion Gap 9, Blood Urea Nitrogen 8, Creatinine 0.59L, Estimat Glomerular Filtration Rate > 60, BUN/ Creatinine Ratio 14, Glucose Level 89, Calcium Level 9.4, Total Bilirubin 0.8, Aspartate Amino Transf (AST/SGOT) 21, Alanine Aminotransferase (ALT/SGPT) 17, Alkaline Phosphatase 81, Total Protein 6.4, Albumin 3.5 Assessment/Plan Assessment Rt hip frx s/p IM nailing 12-04-16 Dr Bass DJD rt hip Postop anemia Postop electrolyte ndfdqmaopiz-roczcossnebc-ur fluid restriction Patient reports longstanding issue COPD stable Tobaccoism currently absstaining Gerd Protonix ordered-improved Chronic back pain 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
--- NOTE | 2016-12-17 09:45 | Occupational Ther Daily Note ---
OT Current Status-Daily Note Subjective Pt alert, sitting in recliner. Pt agreed to therapy. C/o pain in back, did not rate. Mental Status/Objective Patient Orientation: Person, Place, Time, Situation Functional [place] Measure 0=Not Assessed/NA 4=Minimal Assistance 1=Total Assistance 5=Supervision or Setup 2=Maximal Assistance 6=Modified [place] 3=Moderate Assistance 7=Complete [place] ADL-Treatment Pt was able ambulate 8' before sitting in w/c. Pt maneuvered w/c in to bathroom. Doffed shirt by self. Doffed pants over L LE by self then mod A for R LE. Pt transferred into shower using w/c, shower bench, and grabbar. Min A for transfer, increased pain and anxiety with transfer. Pt then was able to complete shower using grabbar, shower bench, hand held shower and long handle sponge. Pt was able to rinse and dry self in sitting. Then donned shirt by self. Donned pants/socks onto L LE by self then min A to don over R LE, did not attempt shoes at this time. Pt was able to complete grooming by self sitting in w/c. Pt takes increased time to complete ADLs and transfers due to pain and anxiety over pain. Functional [place] Measure 0=Not Assessed/NA 4=Minimal Assistance 1=Total Assistance 5=Supervision or Setup 2=Maximal Assistance 6=Modified [place] 3=Moderate Assistance 7=Complete IndependenceIRFPAI Quality Coding Scale 6 Independent with activity with or without an assistive device 5 Patient requires set up or clean up by helper. Patient completes activity by themselves 4 Supervision or touching assist (CGA). [place] provide cues , steadying assist 3 The helper provides less than half the effort to complete the activity 2 The helper provides more than half the effort to complete the activity 1 Dependent. The helper does all the effort to complete an activity 7 Patient refused to complete or attempt activity 9 The patient did not perform the activity before the current illness or injury 88 Not attempted due to Medical conditions or safety concerns Grooming (FIM): 6 Bathing (FIM): 5 Upper Body (FIM): 5 Lower Body Dressing (FIM): 3 Transfers (B, C, W/C) (FIM): 4 Shower Transfer(FIM): 4 OT Short Term Goals Short Term Goals Time Frame: Dec 16, 2016 Lower Body Dressing(FIM): 3 Toilet/Commode Transfer(FIM): 3 Shower Transfer(FIM): 3 1=Demonstrate adherence to instructed precautions during ADL tasks. 2=Patient will verbalize/demonstrate understanding of assistive devices/ modifications for ADL. 3=Patient will improve strength/tolerance for activity to enable patient to perform ADL's. OT Inspector Wire Rope Goals Inspector Wire Rope Goals Time Frame: Jan 06, 2017 Eating (FIM): 6 Eating (QC): 6 Groomin Oral Hygiene (QC): 6 Bathing(FIM): 5 Shower/Bathe Self (QC): 5 Upper Body Dressing(FIM): 6 Upper Body Dressing (QC): 6 Lower Body Dressing(FIM): 6 Lower Body Dressing (QC): 6 On/Off Footwear (QC): 6 Toileting(FIM): 6 Toileting Hygiene (QC): 6 Toilet/Commode Transfer(FIM): 6 Toilet/Commode Transfer (QC): 6 Shower Transfer(FIM): 5 Comprehension(FIM): 4 (MET) Expression (FIM): 4 (MET) Social Interaction(FIM): 5 (MET) Problem Solving(FIM): 4 (MET) Memory(FIM): 4 (MET) Additional Goals: 1-Demonstrate ADL Tasks, 2-Verbalize Understanding, 3- ImproveStrength/Gonzalez 1=Demonstrate adherence to instructed precautions during ADL tasks. 2=Patient will verbalize/demonstrate understanding of assistive devices/ modifications for ADL. 3=Patient will improve strength/tolerance for activity to enable patient to perform ADL's. OT Education/Plan Problem List/Assessment Pt would benefit from skilled OT to increase his independence in basic self car to allow him to safely return home and to decrease caregiver burden Discharge Recommendations Plan/Recommendations: Continue POC Treatment Plan/Plan of Care Patient would benefit from OT for education, treatment and training to promote independence in ADL's, mobility, safety and/or upper extremity function for ADL' s. Plan of Care: ADL Retraining, Functional Mobility, Group Exercise/Act as Ind ( activity tolerance, exercise, education, funct mobility), UE Funct Exercise/Act , UE Neuromus Re-Ed/Coord Treatment Duration: Jan 06, 2017 Frequency: Twice Daily (5-6 times a week) Estimated Hrs Per Day: 1.5 hours per day Agreement: Yes Rehab Potential: Guarded Time/GCodes Start Time: 09:00 Stop Time: 10:00 Total Time Billed (hr/min): 60 Billed Treatment Time 1 visit-ADL 4 (60 min) DAVID ALMEIDA Dec 17, 2016 09:44
--- NOTE | 2016-12-17 12:56 | Physical Therapy Daily Note ---
PT Daily Note-Current Subjective Pt sitting in [facility] in room upon arrival. Pt agrees to PT although reports pain. Pain Numeric Pain Scale: 8 Location: Right Location Body Site: Hip Pain Description: Ache, Tightness Comment: Pt doesn't fully participate in tx due to pain. Mental Status Patient Orientation: Person, Place, Situation Transfers Functional [place] Measure 0=Not Assessed/NA 4=Minimal Assistance 1=Total Assistance 5=Supervision or Setup 2=Maximal Assistance 6=Modified [place] 3=Moderate Assistance 7=Complete IndependenceIRFPAI Quality Coding Scale 6 Independent with activity with or without an assistive device 5 Patient requires set up or clean up by helper. Patient completes activity by themselves 4 Supervision or touching assist (CGA). [place] provide cues , steadying assist 3 The helper provides less than half the effort to complete the activity 2 The helper provides more than half the effort to complete the activity 1 Dependent. The helper does all the effort to complete an activity 7 Patient refused to complete or attempt activity 9 The patient did not perform the activity before the current illness or injury 88 Not attempted due to Medical conditions or safety concerns Scootin Rollin Roll Left to Right (QC): 5 Supine to/from Sit: 4 Sit to/from Stand: 4 Sit to Lying (QC): 5 Sit to Stand (QC): 4 Chair/Cge-ry-Ppzrk Xfer(QC): 4 Bed to/from Chair: 4 Weight Bearing Weight Bearing Restriction: Full Weight Bearing Location Restriction: LE Bilateral Gait Training Does the Patient Walk?: Yes Distance (FIM): 1=up to 49 ft Distance: 30' Walk 10 feet (QC): 4 Gait Assistive Device: FWW Pt is hesitant to walk but will with encouragement. Pt reports pain in R knee while ambulating. Wheelchair Training Does the Pt Use a Wheelchair?: Yes Wheelchair Distance: 3=150 ft Distance: 150' Wheelchair Level of Assist: 5 Wheel 50 ft with 2 turns (QC): 5 Wheel 150 ft (QC): 5 Type of Wheelchair: Manual Exercises Supine Ex: Ankle pumps, Quad Set, Glut sets, Heel Slides, Hip abd/add Supine Reps: 15 Treatments Pt transfers from [facility] to toilet to use before tx. Pt propels [facility] in hallway to Therapy Gym. Pt uses NuStep for 10m at Workload 3. Pt ambulates at [facility] using FWW from [facility] to mat for Supine Ex. Pt needs several rest breaks during Ex due to fatigue and pain. Pt ambulates back to [facility] before propelling back to room to rest at end of tx with all needs met. Assessment Current Status: Fair Progress Pt is ambulating farther but needs encouragement to push himself to progress with tx. PT Short Term Goals Short Term Goals Wheelchair Distance: 200' PT Health Professional Goals Assisted Goals PT Assisted Goals Time Frame: Jan 07, 2017 Transfers (B,C,W/C) (FIM): 5 Sit to Lying (QC): 4 Lying-Sitting on Side/Bed(QC): 4 Sit to Stand (QC): 4 Rollin Roll Left to Right (QC): 4 Chair/Lyc-pm-Juqng Xfer(QC): 4 Car Transfer (QC): 4 Does the Patient Walk: No and Walking Goal IS indicated Gait (FIM): 1 Gait distance (FIM): 1=up to 49 ft (45) Distance: 45' Walk 10 feet (QC): 4 Walk 10ft-Uneven Surface(QC): 4 Walk 50ft with 2 Turns (QC): 9 Walk 150 ft (QC): 9 Gait Level of Assist: 5 Gait Assistive Device: FWW # of Steps: 1 1 Step (curb) (QC): 4 4 Steps (QC): 4 12 Steps (QC): 9 Stairs Level Of Assist: 4 Picking up an Object (QC): 4 PT Plan Problem List Problem List: Activity Tolerance, Functional Strength, Safety, Balance, Gait, Transfer, Bed Mobility Treatment/Plan Treatment Plan: Continue Plan of Care Treatment Plan: Bed Mobility, Education, Functional Activity Gonzalez, Functional Strength, Group Therapy, Gait, Safety, Therapeutic Exercise, Transfers Treatment Duration: Jan 07, 2017 Frequency: At least 5-7 days/Wk (IRF) Estimated Hrs Per Day: 1.5 hours per day Patient and/or Family Agrees t: Yes Safety Risks/Education Patient Education: Gait Training, Transfer Techniques, Correct Positioning, Disease Process, Safety Issues Teaching Recipient: Patient Teaching Methods: Discussion Response to Teaching: Verbalize Understanding Time/GCodes Time In: 1000 Time Out: 1100 Total Billed Treatment Time: 60 Total Billed Treatment visit, GT (15m), EX x2 (30m), FA (15m) CATALINA GRAHAM TWISTER DOFFER Dec 17, 2016 12:56
--- NOTE | 2016-12-17 14:46 | Therapy Group Daily Note ---
Therapy Daily Group Note Patient Education Topic Other List Below (Memory Strategies) Exercises LE Seated Exercise, UE Exercise Other/Notes Pt transferred to [facility] and propelled self to PT/OT Group. Group consisted of Introduction (Name, Where you are from & Childhood School Memory), Memory Strategies to use for every tasks as well as a Memory Activity used to reenforce those Memory Strategies. Pt actively participated in Group by verbally giving Introduction and what strategies pt uses to help remember. Pt also used those strategies when working on Memory Activity. Pt propelled self back to room to use restroom before transferring to Supine in bed to rest at end of tx with all needs met. Start Time: 13:00 Stop Time: 14:00 Total Billed Treatment Time: 60 Total Billed Treatment 1,GRP CATALINA GRAHAM HEAD OF MARKETING ADOMETRY Dec 17, 2016 14:46
[2016-12-17 17:35] VITALS: BP 117/73
[2016-12-17] MEDS: SIMvastatin 20 MG (ZOCOR) TAB PO SCH (21:14)
[2016-12-18 05:00] VITALS: BP 149/92
[2016-12-18] MEDS: PANTOPRAZOLE 20 MG TABLET (PROTONIX) PO SCH (05:44)
[2016-12-18] MEDS: KCL 10 MEQ TAB (MICRO K) PO SCH ×3 (05:44→17:25)
[2016-12-18] MEDS: HYDROcodone/APAP 10 MG/325 MG (LORTAB) TAB PO PRN ×3 (05:44→17:25)
[2016-12-18] MEDS: lisINopril 10 MG (PRINIVIL) TAB PO SCH (07:46)
[2016-12-18] MEDS: LORATADINE (CLARITIN) 10 MG TAB PO SCH (07:46)
[2016-12-18] MEDS: CLOPIDOGREL 75 MG (PLAVIX) TABLET PO SCH (07:46)
[2016-12-18] MEDS: METOCLOPRAMIDE 10 MG (REGLAN) TAB PO SCH ×2 (07:46→20:18)
[2016-12-18] MEDS: CYCLOBENZAPRINE 10 MG (FLEXERIL) TAB PO SCH ×3 (07:46→20:18)
[2016-12-18] MEDS: amLODIPine 5 MG (NORVASC) TAB PO SCH (07:46)
[2016-12-18] MEDS: LACTULOSE SYRUP 10GM/15ML (ENULOSE) 30ML UDC PO SCH ×2 (07:47→20:17)
[2016-12-18] MEDS: SENNA W/DOCUSATE (SENOKOT S) TABLET PO SCH ×2 (07:47→20:18)
[2016-12-18] MEDS: DICLOFENAC 1% GEL 100 GM (VOLTAREN) TUBE TOP SCH ×4 (07:47→20:18)
[2016-12-18] MEDS: ASPIRIN E.C. 81 MG (ECOTRIN) TAB PO SCH (07:47)
[2016-12-18] MEDS: FLUTICASONE NASAL SPRAY (FLONASE) 16 GM BTL NS SCH (07:48)
--- NOTE | 2016-12-18 13:33 | Physical Therapy Daily Note ---
PT Daily Note-Current Subjective (R) hip pain and weakness noted on arrival. Pt is discouraged that he is not making better progress. Pain Numeric Pain Scale: 6 Location: Right Location Body Site: Hip Pain Description: Stabbing, Sharp Appearance Alert and oriented. Mental Status Patient Orientation: Person, Place, Time, Situation Transfers Functional [place] Measure 0=Not Assessed/NA 4=Minimal Assistance 1=Total Assistance 5=Supervision or Setup 2=Maximal Assistance 6=Modified [place] 3=Moderate Assistance 7=Complete IndependenceIRFPAI Quality Coding Scale 6 Independent with activity with or without an assistive device 5 Patient requires set up or clean up by helper. Patient completes activity by themselves 4 Supervision or touching assist (CGA). [place] provide cues , steadying assist 3 The helper provides less than half the effort to complete the activity 2 The helper provides more than half the effort to complete the activity 1 Dependent. The helper does all the effort to complete an activity 7 Patient refused to complete or attempt activity 9 The patient did not perform the activity before the current illness or injury 88 Not attempted due to Medical conditions or safety concerns Transfers (B, C, W/C) (FIM): 5 Scootin Rollin Roll Left to Right (QC): 5 Supine to/from Sit: 5 Sit to/from Stand: 5 Sit to Lying (QC): 5 Sit to Stand (QC): 5 Chair/Khm-ru-Vocnu Xfer(QC): 5 Bed to/from Chair: 5 Weight Bearing Weight Bearing Restriction: Weight Bearing/Tolerated Location Restriction: R LE Gait Training Does the Patient Walk?: Yes Gait (FIM): 1 Distance (FIM): 1=up to 49 ft Distance: 25ft x3 Gait Level of Assist: 4 Gait Persons Needed: 1 Gait Assistive Device: FWW Wheelchair Training Does the Pt Use a Wheelchair?: Yes Wheelchair Distance: 2=151-26 ft Wheelchair Level of Assist: [address] Ex=Flex, Abd, Ext Standing Reps: 15 Standing ex for (R) LE only. Very painful and weak. Assessment Current Status: Poor Progress Pt is severely limited by (R) hip pain. PT Short Term Goals Short Term Goals Wheelchair Distance: 150' PT Custodial Goals Silverware Supervisor Goals PT Custodial Goals Time Frame: Jan 07, 2017 Transfers (B,C,W/C) (FIM): 5 Sit to Lying (QC): 4 Lying-Sitting on Side/Bed(QC): 4 Sit to Stand (QC): 4 Rollin Roll Left to Right (QC): 4 Chair/Joh-gs-Vedmz Xfer(QC): 4 Car Transfer (QC): 4 Does the Patient Walk: No and Walking Goal IS indicated Gait (FIM): 1 Gait distance (FIM): 1=up to 49 ft (45) Distance: 45' Walk 10 feet (QC): 4 Walk 10ft-Uneven Surface(QC): 4 Walk 50ft with 2 Turns (QC): 9 Walk 150 ft (QC): 9 Gait Level of Assist: 5 Gait Assistive Device: FWW # of Steps: 1 1 Step (curb) (QC): 4 4 Steps (QC): 4 12 Steps (QC): 9 Stairs Level Of Assist: 4 Picking up an Object (QC): 4 PT Plan Problem List Problem List: Activity Tolerance, Functional Strength, Gait, Transfer, Bed Mobility, ROM Treatment/Plan Treatment Plan: Continue Plan of Care Treatment Plan: Bed Mobility, Education, Functional Activity Gonzalez, Functional Strength, Group Therapy, Gait, Safety, Therapeutic Exercise, Transfers Treatment Duration: Jan 07, 2017 Frequency: At least 5-7 days/Wk (IRF) Estimated Hrs Per Day: 1.5 hours per day Patient and/or Family Agrees t: Yes Time/GCodes Time In: 1045 Time Out: 1115 Total Billed Treatment Time: 30 Total Billed Treatment 1, gt 15, ex 15 NEVILLE MCELROY PT Dec 18, 2016 13:33
[2016-12-18] MEDS ORDERED: MAGNESIUM CITRATE 300 ML BTL PO PRN (15:30)
[2016-12-18 17:37] VITALS: BP 122/79
[2016-12-18] MEDS: SIMvastatin 20 MG (ZOCOR) TAB PO SCH (20:18)
[2016-12-18] MEDS: DOCUSATE SODIUM 100 MG (COLACE) CAP PO SCH (20:20)
[2016-12-19] MEDS: HYDROcodone/APAP 10 MG/325 MG (LORTAB) TAB PO PRN ×3 (05:56→18:37)
[2016-12-19 06:00] VITALS: BP 137/89
[2016-12-19] MEDS: KCL 10 MEQ TAB (MICRO K) PO SCH ×3 (06:00→18:37)
[2016-12-19] MEDS: PANTOPRAZOLE 20 MG TABLET (PROTONIX) PO SCH (06:00)
[2016-12-19] MEDS: METOCLOPRAMIDE 10 MG (REGLAN) TAB PO SCH ×2 (08:00→20:46)
[2016-12-19] MEDS: CLOPIDOGREL 75 MG (PLAVIX) TABLET PO SCH (08:00)
[2016-12-19] MEDS: LORATADINE (CLARITIN) 10 MG TAB PO SCH (08:00)
[2016-12-19] MEDS: lisINopril 10 MG (PRINIVIL) TAB PO SCH (08:00)
[2016-12-19] MEDS: CYCLOBENZAPRINE 10 MG (FLEXERIL) TAB PO SCH ×3 (08:00→20:46)
[2016-12-19] MEDS: ASPIRIN E.C. 81 MG (ECOTRIN) TAB PO SCH (08:01)
[2016-12-19] MEDS: SENNA W/DOCUSATE (SENOKOT S) TABLET PO SCH ×2 (08:01→20:46)
[2016-12-19] MEDS: amLODIPine 5 MG (NORVASC) TAB PO SCH (08:01)
[2016-12-19] MEDS: DOCUSATE SODIUM 100 MG (COLACE) CAP PO SCH ×2 (08:01→20:46)
[2016-12-19] MEDS: FLUTICASONE NASAL SPRAY (FLONASE) 16 GM BTL NS SCH (08:04)
[2016-12-19] MEDS: DICLOFENAC 1% GEL 100 GM (VOLTAREN) TUBE TOP SCH ×4 (08:04→20:46)
[2016-12-19] MEDS: LACTULOSE SYRUP 10GM/15ML (ENULOSE) 30ML UDC PO SCH ×3 (10:40→20:49)
[2016-12-19 18:57] VITALS: BP 111/71
[2016-12-19] MEDS: SIMvastatin 20 MG (ZOCOR) TAB PO SCH (20:46)
[2016-12-20] MEDS: HYDROcodone/APAP 10 MG/325 MG (LORTAB) TAB PO PRN ×3 (05:31→16:41)
[2016-12-20] MEDS: KCL 10 MEQ TAB (MICRO K) PO SCH ×3 (05:31→16:40)
[2016-12-20] MEDS: PANTOPRAZOLE 20 MG TABLET (PROTONIX) PO SCH (05:31)
[2016-12-20 05:48] VITALS: BP 135/91
[2016-12-20 07:30] VITALS: BP 132/86
[2016-12-20] MEDS: METOCLOPRAMIDE 10 MG (REGLAN) TAB PO SCH ×2 (07:31→20:04)
[2016-12-20] MEDS: LORATADINE (CLARITIN) 10 MG TAB PO SCH (07:31)
[2016-12-20] MEDS: lisINopril 10 MG (PRINIVIL) TAB PO SCH (07:31)
[2016-12-20] MEDS: CYCLOBENZAPRINE 10 MG (FLEXERIL) TAB PO SCH ×3 (07:32→20:04)
[2016-12-20] MEDS: amLODIPine 5 MG (NORVASC) TAB PO SCH (07:32)
[2016-12-20] MEDS: DOCUSATE SODIUM 100 MG (COLACE) CAP PO SCH ×2 (07:32→20:04)
[2016-12-20] MEDS: CLOPIDOGREL 75 MG (PLAVIX) TABLET PO SCH (07:32)
[2016-12-20] MEDS: ASPIRIN E.C. 81 MG (ECOTRIN) TAB PO SCH (07:32)
[2016-12-20] MEDS: SENNA W/DOCUSATE (SENOKOT S) TABLET PO SCH ×2 (07:33→20:04)
[2016-12-20] MEDS: LACTULOSE SYRUP 10GM/15ML (ENULOSE) 30ML UDC PO SCH ×2 (07:33→20:05)
[2016-12-20] MEDS: DICLOFENAC 1% GEL 100 GM (VOLTAREN) TUBE TOP SCH ×4 (07:34→20:04)
[2016-12-20] MEDS: FLUTICASONE NASAL SPRAY (FLONASE) 16 GM BTL NS SCH (07:34)
--- NOTE | 2016-12-20 09:07 | Occupational Ther Daily Note ---
OT Current Status-Daily Note Subjective Pt alert, sitting in w/c. Pt c/o pain in knee, did not rate. Pt agreed to therapy. Mental Status/Objective Patient Orientation: Person, Place, Time, Situation Functional [place] Measure 0=Not Assessed/NA 4=Minimal Assistance 1=Total Assistance 5=Supervision or Setup 2=Maximal Assistance 6=Modified [place] 3=Moderate Assistance 7=Complete [place] ADL-Treatment Functional [place] Measure 0=Not Assessed/NA 4=Minimal Assistance 1=Total Assistance 5=Supervision or Setup 2=Maximal Assistance 6=Modified [place] 3=Moderate Assistance 7=Complete IndependenceIRFPAI Quality Coding Scale 6 Independent with activity with or without an assistive device 5 Patient requires set up or clean up by helper. Patient completes activity by themselves 4 Supervision or touching assist (CGA). [place] provide cues , steadying assist 3 The helper provides less than half the effort to complete the activity 2 The helper provides more than half the effort to complete the activity 1 Dependent. The helper does all the effort to complete an activity 7 Patient refused to complete or attempt activity 9 The patient did not perform the activity before the current illness or injury 88 Not attempted due to Medical conditions or safety concerns Grooming (FIM): 6 (At w/c level, pt is able to complete grooming by self.) Bathing (FIM): 5 (Using long handle sponge, grabbars, shower bench and hand held shower pt able to complete bathing by self. SBA while pt uses grabbar to stabilize self and dry buttocks.) Bathing Location: L Arm, R Arm, L Upper Leg, R Upper Leg, L Lower Leg ( including foot), R Lower Leg (including foot), Chest, Abdomen, Buttocks, Perineal Area Upper Body (FIM): 6 (After set up, pt able to don/doff shirt.) Lower Body Dressing (FIM): 3 (Pt requires assist to doff lower body clothing over feet. Pt has increased pain with the pressure/pulling that is needed to doff lower body clothing over heels. Pt is able to don pajama bottoms over feet and hike over hips with SBA using FWW. Pt is able to don L sock over foot by self, AE with SBA to don R sock by self. Pt requires assist to don/doff shoes then tie.) Toileting (FIM): 5 (SBA using grabbars for pt to manipulate clothing. Cleanses while seated on toilet.) Transfers (B, C, W/C) (FIM): 5 (Using FWW for stand pivot transfer pt is able to complete.) Toilet/Commode Transfer (FIM): 5 (Using grabbar from w/c level pt is able to complete.) Shower Transfer(FIM): 5 (Using shower bench and grabbar, pt is able to complete transfer from w/c.) Pt's pain in knee and hip hinders ability to complete lower body dressing. Pt has difficulty lifting R foot off of ground to don socks, pants and shoes over heel. When pt does attempt this he grimaces, cusses and c/o pain. After therapy, pt sitting in recliner with call light/phone in reach. All needs met in room. OT Short Term Goals Short Term Goals Time Frame: Dec 16, 2016 Lower Body Dressing(FIM): 3 Toilet/Commode Transfer(FIM): 3 Shower Transfer(FIM): 3 1=Demonstrate adherence to instructed precautions during ADL tasks. 2=Patient will verbalize/demonstrate understanding of assistive devices/ modifications for ADL. 3=Patient will improve strength/tolerance for activity to enable patient to perform ADL's. OT Jail Goals Jail Goals Time Frame: Jan 06, 2017 Eating (FIM): 6 Eating (QC): 6 Groomin Oral Hygiene (QC): 6 Bathing(FIM): 5 Shower/Bathe Self (QC): 5 Upper Body Dressing(FIM): 6 Upper Body Dressing (QC): 6 Lower Body Dressing(FIM): 6 Lower Body Dressing (QC): 6 On/Off Footwear (QC): 6 Toileting(FIM): 6 Toileting Hygiene (QC): 6 Toilet/Commode Transfer(FIM): 6 Toilet/Commode Transfer (QC): 6 Shower Transfer(FIM): 5 Comprehension(FIM): 4 (MET) Expression (FIM): 4 (MET) Social Interaction(FIM): 5 (MET) Problem Solving(FIM): 4 (MET) Memory(FIM): 4 (MET) Additional Goals: 1-Demonstrate ADL Tasks, 2-Verbalize Understanding, 3- ImproveStrength/Gonzalez 1=Demonstrate adherence to instructed precautions during ADL tasks. 2=Patient will verbalize/demonstrate understanding of assistive devices/ modifications for ADL. 3=Patient will improve strength/tolerance for activity to enable patient to perform ADL's. OT Education/Plan Problem List/Assessment Pt would benefit from skilled OT to increase his independence in basic self car to allow him to safely return home and to decrease caregiver burden Discharge Recommendations Plan/Recommendations: Continue POC Treatment Plan/Plan of Care Patient would benefit from OT for education, treatment and training to promote independence in ADL's, mobility, safety and/or upper extremity function for ADL' s. Plan of Care: ADL Retraining, Functional Mobility, Group Exercise/Act as Ind ( activity tolerance, exercise, education, funct mobility), UE Funct Exercise/Act , UE Neuromus Re-Ed/Coord Treatment Duration: Jan 06, 2017 Frequency: Twice Daily (5-6 times a week) Estimated Hrs Per Day: 1.5 hours per day Agreement: Yes Rehab Potential: Guarded Time/GCodes Start Time: 09:00 Stop Time: 10:00 Total Time Billed (hr/min): 60 Billed Treatment Time 1 visit-ADL 3 (45 min) FA 1 (15 min) DAVID ALMEIDA Dec 20, 2016 09:07
--- NOTE | 2016-12-20 09:07 | Physical Therapy Daily Note ---
PT Daily Note-Current Subjective Pt. c/o he is doing a little better but has pain in his right knee that is stopping him from walking further and moving better Pain Numeric Pain Scale: 5-Moderate Pain Location: Right Location Body Site: Knee Pain Description: Ache Mental Status Patient Orientation: Person, Place, Time hard of hearing Transfers Functional [place] Measure 0=Not Assessed/NA 4=Minimal Assistance 1=Total Assistance 5=Supervision or Setup 2=Maximal Assistance 6=Modified [place] 3=Moderate Assistance 7=Complete IndependenceIRFPAI Quality Coding Scale 6 Independent with activity with or without an assistive device 5 Patient requires set up or clean up by helper. Patient completes activity by themselves 4 Supervision or touching assist (CGA). [place] provide cues , steadying assist 3 The helper provides less than half the effort to complete the activity 2 The helper provides more than half the effort to complete the activity 1 Dependent. The helper does all the effort to complete an activity 7 Patient refused to complete or attempt activity 9 The patient did not perform the activity before the current illness or injury 88 Not attempted due to Medical conditions or safety concerns Transfers (B, C, W/C) (FIM): 5 Scootin Rollin Supine to/from Sit: 5 Sit to/from Stand: 5 Weight Bearing Weight Bearing Restriction: Weight Bearing/Tolerated Location Restriction: R LE Gait Training Does the Patient Walk?: Yes Gait (FIM): 1 Distance (FIM): 1=up to 49 ft (30ftx4) Gait Level of Assist: 4 Gait Persons Needed: 1 Gait Assistive Device: FWW some near LOB as pt. turned to approach chair. Gait training was focused on turns and approaches to chair Wheelchair Training Does the Pt Use a Wheelchair?: Yes Wheelchair (FIM): 5 Wheelchair Distance: 3=150 ft Wheelchair Level of Assist: 5 Type of Wheelchair: Manual Exercises Supine Ex: Ankle pumps, Quad Set, Rolling, Glut sets, Heel Slides, Short Arc Quads, Scooting, Hip abd/add Supine Reps: 15 Seated Therapy Exercises: Ankle pumps, Sit to stand, Long arc quads Seated Reps: 15 Assessment Current Status: Good Progress communicated with nursing re: pts. knee pain and possible XR PT Short Term Goals Short Term Goals Wheelchair Distance: 150' PT [facility] Goals Material Combiner Goals PT Material Combiner Goals Time Frame: Jan 07, 2017 Transfers (B,C,W/C) (FIM): 5 Sit to Lying (QC): 4 Lying-Sitting on Side/Bed(QC): 4 Sit to Stand (QC): 4 Rollin Roll Left to Right (QC): 4 Chair/Rex-no-Mmvdi Xfer(QC): 4 Car Transfer (QC): 4 Does the Patient Walk: No and Walking Goal IS indicated Gait (FIM): 1 Gait distance (FIM): 1=up to 49 ft (45) Distance: 45' Walk 10 feet (QC): 4 Walk 10ft-Uneven Surface(QC): 4 Walk 50ft with 2 Turns (QC): 9 Walk 150 ft (QC): 9 Gait Level of Assist: 5 Gait Assistive Device: FWW # of Steps: 1 1 Step (curb) (QC): 4 4 Steps (QC): 4 12 Steps (QC): 9 Stairs Level Of Assist: 4 Picking up an Object (QC): 4 PT Plan Treatment/Plan Treatment Plan: Continue Plan of Care Treatment Plan: Bed Mobility, Education, Functional Activity Gonzalez, Functional Strength, Group Therapy, Gait, Safety, Therapeutic Exercise, Transfers Treatment Duration: Jan 07, 2017 Frequency: At least 5-7 days/Wk (IRF) Estimated Hrs Per Day: 1.5 hours per day Patient and/or Family Agrees t: Yes Safety Risks/Education Patient Education: Gait Training, Transfer Techniques Teaching Recipient: Patient Teaching Methods: Demonstration, Discussion Response to Teaching: Verbalize Understanding, Return Demonstration, Reinforcement Needed Time/GCodes Time In: 800 Time Out: 900 Total Billed Treatment Time: 60 Total Billed Treatment 1,EX20m,WC10m,FA15m,GT15m G Codes Necessary: GUNJAN Woods PTA Dec 20, 2016 09:07
--- NOTE | 2016-12-20 14:06 | Occupational Ther Daily Note ---
OT Current Status-Daily Note Subjective Pt alert, sitting in w/c. Pt agreed to therapy. No c/o pain at this time. Mental Status/Objective Patient Orientation: Person, Place, Time, Situation Functional [place] Measure 0=Not Assessed/NA 4=Minimal Assistance 1=Total Assistance 5=Supervision or Setup 2=Maximal Assistance 6=Modified [place] 3=Moderate Assistance 7=Complete [place] ADL-Treatment Functional [place] Measure 0=Not Assessed/NA 4=Minimal Assistance 1=Total Assistance 5=Supervision or Setup 2=Maximal Assistance 6=Modified [place] 3=Moderate Assistance 7=Complete IndependenceIRFPAI Quality Coding Scale 6 Independent with activity with or without an assistive device 5 Patient requires set up or clean up by helper. Patient completes activity by themselves 4 Supervision or touching assist (CGA). [place] provide cues , steadying assist 3 The helper provides less than half the effort to complete the activity 2 The helper provides more than half the effort to complete the activity 1 Dependent. The helper does all the effort to complete an activity 7 Patient refused to complete or attempt activity 9 The patient did not perform the activity before the current illness or injury 88 Not attempted due to Medical conditions or safety concerns Other Treatment Pt able to don L shoe by self then assist to tie shoe. Assist needed to don and tie R shoe. Pt then maneuvered w/c by self to therapy gym. Completed arm bike 15 min duration at 20 [place]rell resistance to increase strength and activity tolerance for daily functional tasks, no breaks taken. Pt then maneuvered w/c back to room. Call light/phone in reach. All needs met in room. OT Short Term Goals Short Term Goals Time Frame: Dec 16, 2016 Lower Body Dressing(FIM): 3 Toilet/Commode Transfer(FIM): 3 Shower Transfer(FIM): 3 1=Demonstrate adherence to instructed precautions during ADL tasks. 2=Patient will verbalize/demonstrate understanding of assistive devices/ modifications for ADL. 3=Patient will improve strength/tolerance for activity to enable patient to perform ADL's. OT Residential Goals Per Diem Nurse Goals Time Frame: Jan 06, 2017 Eating (FIM): 6 Eating (QC): 6 Groomin Oral Hygiene (QC): 6 Bathing(FIM): 5 Shower/Bathe Self (QC): 5 Upper Body Dressing(FIM): 6 Upper Body Dressing (QC): 6 Lower Body Dressing(FIM): 6 Lower Body Dressing (QC): 6 On/Off Footwear (QC): 6 Toileting(FIM): 6 Toileting Hygiene (QC): 6 Toilet/Commode Transfer(FIM): 6 Toilet/Commode Transfer (QC): 6 Shower Transfer(FIM): 5 Comprehension(FIM): 4 (MET) Expression (FIM): 4 (MET) Social Interaction(FIM): 5 (MET) Problem Solving(FIM): 4 (MET) Memory(FIM): 4 (MET) Additional Goals: 1-Demonstrate ADL Tasks, 2-Verbalize Understanding, 3- ImproveStrength/Gonzalez 1=Demonstrate adherence to instructed precautions during ADL tasks. 2=Patient will verbalize/demonstrate understanding of assistive devices/ modifications for ADL. 3=Patient will improve strength/tolerance for activity to enable patient to perform ADL's. OT Education/Plan Problem List/Assessment Pt would benefit from skilled OT to increase his independence in basic self car to allow him to safely return home and to decrease caregiver burden Discharge Recommendations Plan/Recommendations: Continue POC Treatment Plan/Plan of Care Patient would benefit from OT for education, treatment and training to promote independence in ADL's, mobility, safety and/or upper extremity function for ADL' s. Plan of Care: ADL Retraining, Functional Mobility, Group Exercise/Act as Ind ( activity tolerance, exercise, education, funct mobility), UE Funct Exercise/Act , UE Neuromus Re-Ed/Coord Treatment Duration: Jan 06, 2017 Frequency: Twice Daily (5-6 times a week) Estimated Hrs Per Day: 1.5 hours per day Agreement: Yes Rehab Potential: Guarded Time/GCodes Start Time: 12:30 Stop Time: 13:00 Total Time Billed (hr/min): 30 Billed Treatment Time 1 visit-EX 2 (30 min) DAVID LAMEIDA Dec 20, 2016 14:06
--- NOTE | 2016-12-20 14:06 | Physical Therapy Daily Note ---
PT Daily Note-Current Subjective Agrees to Rx. Explains his steps at home and how he manages them. Pain Numeric Pain Scale: 3 Location: Right Location Body Site: Hip Pain Description: Ache Transfers Functional [place] Measure 0=Not Assessed/NA 4=Minimal Assistance 1=Total Assistance 5=Supervision or Setup 2=Maximal Assistance 6=Modified [place] 3=Moderate Assistance 7=Complete IndependenceIRFPAI Quality Coding Scale 6 Independent with activity with or without an assistive device 5 Patient requires set up or clean up by helper. Patient completes activity by themselves 4 Supervision or touching assist (CGA). [place] provide cues , steadying assist 3 The helper provides less than half the effort to complete the activity 2 The helper provides more than half the effort to complete the activity 1 Dependent. The helper does all the effort to complete an activity 7 Patient refused to complete or attempt activity 9 The patient did not perform the activity before the current illness or injury 88 Not attempted due to Medical conditions or safety concerns all sit to stands SBA to Mod I. sup to sit SBA Weight Bearing Weight Bearing Restriction: Weight Bearing/Tolerated Location Restriction: R LE Gait Training Gait Assistive Device: FWW 25ft x 2 SBA to CGA Stair Training Stair Training: Handrails/: 2 handrails Stairs (FIM): 2 #of Steps: 4 Stairs: Pattern: Step to Level of Assist: 3 needs some assist and cuing to use UEs on rails for wt bearing to lighten his R hip etc upon ascent Assessment Current Status: Good Progress making slow progress but gaining, anxious to DC to home PT Short Term Goals Short Term Goals Wheelchair Distance: 150' PT Mobile Mechanic Goals Mobile Mechanic Goals PT Mobile Mechanic Goals Time Frame: Jan 07, 2017 Transfers (B,C,W/C) (FIM): 5 Sit to Lying (QC): 4 Lying-Sitting on Side/Bed(QC): 4 Sit to Stand (QC): 4 Rollin Roll Left to Right (QC): 4 Chair/Ost-xh-Sjkxt Xfer(QC): 4 Car Transfer (QC): 4 Does the Patient Walk: No and Walking Goal IS indicated Gait (FIM): 1 Gait distance (FIM): 1=up to 49 ft (45) Distance: 45' Walk 10 feet (QC): 4 Walk 10ft-Uneven Surface(QC): 4 Walk 50ft with 2 Turns (QC): 9 Walk 150 ft (QC): 9 Gait Level of Assist: 5 Gait Assistive Device: FWW # of Steps: 1 1 Step (curb) (QC): 4 4 Steps (QC): 4 12 Steps (QC): 9 Stairs Level Of Assist: 4 Picking up an Object (QC): 4 PT Plan Treatment/Plan Treatment Plan: Continue Plan of Care Treatment Plan: Bed Mobility, Education, Functional Activity Gonzalez, Functional Strength, Group Therapy, Gait, Safety, Therapeutic Exercise, Transfers Treatment Duration: Jan 07, 2017 Frequency: At least 5-7 days/Wk (IRF) Estimated Hrs Per Day: 1.5 hours per day Patient and/or Family Agrees t: Yes Safety Risks/Education Patient Education: Gait Training, Transfer Techniques, Steps Teaching Recipient: Patient Teaching Methods: Demonstration, Discussion Response to Teaching: Verbalize Understanding, Return Demonstration, Reinforcement Needed Time/GCodes Time In: 1330 Time Out: 1400 Total Billed Treatment Time: 30 Total Billed Treatment 1,FA30m G Codes Necessary: GUNJAN Woods PTA Dec 20, 2016 14:06
[2016-12-20 17:08] VITALS: BP 114/71
--- NOTE | 2016-12-20 18:37 | Diagnostic Imaging Report ---
INDICATION: Right knee pain FINDINGS: Three views of the right knee show no fracture, dislocation or other acute bony abnormality. There is mild chondrocalcinosis of both the medial and lateral meniscus. No hypertrophic spurring is seen. There is no effusion. There are extensive arterial vascular calcifications present. IMPRESSION: Chondrocalcinosis. No acute abnormality is seen. Dictated by: Dictated on workstation # [id number]
[2016-12-20] MEDS: SIMvastatin 20 MG (ZOCOR) TAB PO SCH (20:04)
--- NOTE | 2016-12-20 20:36 | PM & R (SOAP) Progress Note ---
Subjective Time Seen by Provider: 20:20 Subjective/Events-last exam Patient was seen in his room this evening Patient CGA for ambulation with walker RN contacted me earlier today re patients c/o rt knee pain Xray reveals chondrocalcinosis.Will treat symptomatically Review of Systems Musculoskeletal: leg pain Objective Exam Last Set of Vital Signs Vital Signs Date Time Temp Pulse Resp B/P (MAP) Pulse Ox O2 Delivery O2 Flow Rate FiO2 12/20/16 17:08 99.2 87 17 114/71 91 Room Air Capillary Refill : Less Than 3 Seconds I&O Intake and Output 12/20/16 00:00 Intake Total 1050 ml Output Total 2825 ml Balance -1775 ml Intake Oral 1050 ml Output Urine Total 2825 ml # Voids 2 # Bowel Movements 2 General: Alert, Oriented X3, Cooperative, No Acute Distress HEENT: Atraumatic, PERRLA, EOMI, Mucous Memb Moist/[place] Neck: Supple, No JVD Lungs: Clear to Auscultation Heart: Regular Rate Abdomen: Normal Bowel Sounds, Soft, No Tenderness (trace edema rt ankle) Extremities: Other (Mild tendernees over Infrapatella region) Neuro: Other (guarding rt hip generalized weakness) Psych/Mental Status: Other (Short term memory loss) Assessment/Plan Assessment Rt hip frx s/p IM nailing 12-04-16 Dr Shelia COREASD rt hip Postop anemia Postop electrolyte scrixjsklly-awltotmoxgbi-ul fluid restriction Patient reports longstanding issue COPD stable Tobaccoism currently absstaining Gerd Protonix ordered-improved Chronic back pain 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
[2016-12-21 05:04] VITALS: BP 139/88
[2016-12-21] MEDS: KCL 10 MEQ TAB (MICRO K) PO SCH ×3 (06:04→17:15)
[2016-12-21] MEDS: HYDROcodone/APAP 10 MG/325 MG (LORTAB) TAB PO PRN ×3 (06:04→21:28)
[2016-12-21] MEDS: PANTOPRAZOLE 20 MG TABLET (PROTONIX) PO SCH (06:04)
[2016-12-21] MEDS: CLOPIDOGREL 75 MG (PLAVIX) TABLET PO SCH (09:49)
[2016-12-21] MEDS: lisINopril 10 MG (PRINIVIL) TAB PO SCH (09:49)
[2016-12-21] MEDS: METOCLOPRAMIDE 10 MG (REGLAN) TAB PO SCH ×2 (09:49→21:23)
[2016-12-21] MEDS: LACTULOSE SYRUP 10GM/15ML (ENULOSE) 30ML UDC PO SCH ×2 (09:49→21:24)
[2016-12-21] MEDS: LORATADINE (CLARITIN) 10 MG TAB PO SCH (09:50)
[2016-12-21] MEDS: SENNA W/DOCUSATE (SENOKOT S) TABLET PO SCH ×2 (09:50→21:22)
[2016-12-21] MEDS: CYCLOBENZAPRINE 10 MG (FLEXERIL) TAB PO SCH ×3 (09:50→21:22)
[2016-12-21] MEDS: FLUTICASONE NASAL SPRAY (FLONASE) 16 GM BTL NS SCH (09:50)
[2016-12-21] MEDS: DOCUSATE SODIUM 100 MG (COLACE) CAP PO SCH ×2 (09:50→21:21)
[2016-12-21] MEDS: ASPIRIN E.C. 81 MG (ECOTRIN) TAB PO SCH (09:50)
[2016-12-21] MEDS: amLODIPine 5 MG (NORVASC) TAB PO SCH (09:50)
[2016-12-21] MEDS: DICLOFENAC 1% GEL 100 GM (VOLTAREN) TUBE TOP SCH ×4 (09:51→21:24)
--- NOTE | 2016-12-21 10:21 | PM & R (SOAP) Progress Note ---
Subjective Time Seen by Provider: 08:00 Subjective/Events-last exam Patient was seen in his room this AM Patient Min assist for Gait with WW. Objective Exam Last Set of Vital Signs Vital Signs Date Time Temp Pulse Resp B/P (MAP) Pulse Ox O2 Delivery O2 Flow Rate FiO2 12/21/16 05:04 97.7 95 17 139/88 94 Room Air Capillary Refill : Less Than 3 Seconds I&O Intake and Output 12/21/16 00:00 Intake Total 1350 ml Output Total 2050 ml Balance -700 ml Intake Oral 1350 ml Output Urine Total 2050 ml # Bowel Movements 1 General: Alert, Oriented X3, Cooperative, No Acute Distress HEENT: Atraumatic, PERRLA, EOMI, Mucous Memb Moist/[place] Neck: Supple, No JVD Lungs: Clear to Auscultation Heart: Regular Rate Abdomen: Normal Bowel Sounds, Soft, No Tenderness (trace edema rt ankle) Extremities: Other (Mild tendernees over Infrapatella region) Neuro: Other (guarding rt hip generalized weakness) Psych/Mental Status: Other (Short term memory loss) Assessment/Plan Assessment Rt hip frx s/p IM nailing 12-04-16 Dr Bass DJD rt hip Postop anemia Postop electrolyte phuwkddvvtv-woztujisbmoa-es fluid restriction Patient reports longstanding issue COPD stable Tobaccoism currently absstaining Gerd Protonix ordered-improved Chronic back pain 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
--- NOTE | 2016-12-21 11:07 | Physical Therapy Daily Note ---
PT Daily Note-Current Subjective Pt. agrees to rx. C/o he still has pain in his right knee but knows now it is ok per XR Mental Status Patient Orientation: Person, Place, Time, Situation Transfers Functional [place] Measure 0=Not Assessed/NA 4=Minimal Assistance 1=Total Assistance 5=Supervision or Setup 2=Maximal Assistance 6=Modified [place] 3=Moderate Assistance 7=Complete IndependenceIRFPAI Quality Coding Scale 6 Independent with activity with or without an assistive device 5 Patient requires set up or clean up by helper. Patient completes activity by themselves 4 Supervision or touching assist (CGA). [place] provide cues , steadying assist 3 The helper provides less than half the effort to complete the activity 2 The helper provides more than half the effort to complete the activity 1 Dependent. The helper does all the effort to complete an activity 7 Patient refused to complete or attempt activity 9 The patient did not perform the activity before the current illness or injury 88 Not attempted due to Medical conditions or safety concerns Transfers (B, C, W/C) (FIM): 6 Scootin Rollin Roll Left to Right (QC): 6 Supine to/from Sit: 6 Sit to/from Stand: 6 Sit to Lying (QC): 6 Sit to Stand (QC): 6 pt. supports LLE with RLE into bed Weight Bearing Weight Bearing Restriction: Weight Bearing/Tolerated Gait Training Does the Patient Walk?: Yes Gait (FIM): 5 Distance (FIM): 2=113-75 ft (50,40,30) Walk 10 feet (QC): 5 Walk 50 ft with 2 Turns(QC): 5 Walking 10ft/uneven surface-QC: 5 Gait Level of Assist: 5 Gait Persons Needed: 1 Gait Assistive Device: FWW heavy wt bearing on UEs better SHAYAN and more even step length Wheelchair Training Does the Pt Use a Wheelchair?: Yes Wheelchair (FIM): 5 Type of Wheelchair: Manual Stair Training Stair Training: Handrails/: 2 handrails Stairs (FIM): 2 #of Steps: 4 Exercises Supine Ex: Ankle pumps, Quad Set, Rolling, Glut sets, Heel Slides, Short Arc Quads, Scooting, Straight leg raise (assist), Hip abd/add NuStep Minutes: 6 NuStep Workload: 2 Assessment Current Status: Good Progress gait improved PT Short Term Goals Short Term Goals Wheelchair Distance: 150' PT Retirement Goals Retirement Goals PT Retirement Goals Time Frame: Jan 07, 2017 Transfers (B,C,W/C) (FIM): 5 Sit to Lying (QC): 4 Lying-Sitting on Side/Bed(QC): 4 Sit to Stand (QC): 4 Rollin Roll Left to Right (QC): 4 Chair/Maz-eb-Qbjsn Xfer(QC): 4 Car Transfer (QC): 4 Does the Patient Walk: No and Walking Goal IS indicated Gait (FIM): 1 Gait distance (FIM): 1=up to 49 ft (45) Distance: 45' Walk 10 feet (QC): 4 Walk 10ft-Uneven Surface(QC): 4 Walk 50ft with 2 Turns (QC): 9 Walk 150 ft (QC): 9 Gait Level of Assist: 5 Gait Assistive Device: FWW # of Steps: 1 1 Step (curb) (QC): 4 4 Steps (QC): 4 12 Steps (QC): 9 Stairs Level Of Assist: 4 Picking up an Object (QC): 4 PT Plan Treatment/Plan Treatment Plan: Continue Plan of Care Treatment Plan: Bed Mobility, Education, Functional Activity Gonzalez, Functional Strength, Group Therapy, Gait, Safety, Therapeutic Exercise, Transfers Treatment Duration: Jan 07, 2017 Frequency: At least 5-7 days/Wk (IRF) Estimated Hrs Per Day: 1.5 hours per day Patient and/or Family Agrees t: Yes Safety Risks/Education Patient Education: Gait Training, Transfer Techniques, Steps Teaching Recipient: Patient Teaching Methods: Demonstration, Discussion Response to Teaching: Verbalize Understanding, Return Demonstration, Reinforcement Needed Time/GCodes Time In: 1000 Time Out: 1100 Total Billed Treatment Time: 60 Total Billed Treatment 1,GT25m,EX20m,FA15m G Codes Necessary: GUNJAN Woods SPINDRAW OPERATOR Dec 21, 2016 11:06
--- NOTE | 2016-12-21 12:51 | Occupational Ther Daily Note ---
OT Current Status-Daily Note Subjective Pt alert, sitting on EOB. Pt agreed to therapy. Pt c/o being stiff with LE and back. Mental Status/Objective Patient Orientation: Person, Place, Time, Situation Functional [place] Measure 0=Not Assessed/NA 4=Minimal Assistance 1=Total Assistance 5=Supervision or Setup 2=Maximal Assistance 6=Modified [place] 3=Moderate Assistance 7=Complete [place] ADL-Treatment Functional [place] Measure 0=Not Assessed/NA 4=Minimal Assistance 1=Total Assistance 5=Supervision or Setup 2=Maximal Assistance 6=Modified [place] 3=Moderate Assistance 7=Complete IndependenceIRFPAI Quality Coding Scale 6 Independent with activity with or without an assistive device 5 Patient requires set up or clean up by helper. Patient completes activity by themselves 4 Supervision or touching assist (CGA). [place] provide cues , steadying assist 3 The helper provides less than half the effort to complete the activity 2 The helper provides more than half the effort to complete the activity 1 Dependent. The helper does all the effort to complete an activity 7 Patient refused to complete or attempt activity 9 The patient did not perform the activity before the current illness or injury 88 Not attempted due to Medical conditions or safety concerns Eating (FIM): 6 (Pt is able to set self up then use regular utensils to cut food and feed self.) Eating (QC): 6 (Pt is able to set self up then use regular utensils to cut food and feed self.) Grooming (FIM): 6 (At w/c level, pt is able to sit at sink and complete own grooming.) Oral Hygiene (QC): 6 (At w/c level, pt is able to sit at sink and complete by self.) Bathing (FIM): 5 (Using grabbar, long handle sponge, shower bench and hand held shower pt is able to complete bathing and rinsing by self. Pt dries self sitting on bench then requires SBA when standing to dry buttocks.) Bathing Location: L Arm, R Arm, L Upper Leg, R Upper Leg, L Lower Leg ( including foot), R Lower Leg (including foot), Chest, Abdomen, Buttocks, Perineal Area Shower/Bathe Self (QC): 4 (Using grabbar, long handle sponge, shower bench and hand held shower pt is able to complete bathing and rinsing by self. Pt dries self sitting on bench then requires SBA when standing to dry buttocks.) Upper Body (FIM): 5 (After set up, pt is able to complete by self.) Upper Body Dressing (QC): 5 (After set up, pt is able to complete by self.) Lower Body Dressing (FIM): 4 (Assist to doff R sock with dressing stick due to increased pain as sock is pushed over heel. Pt is able to doff all other lower body clothing with SBA to push down over hips. Pt is able to don pants, socks and shoes by self after set up. SBA when pt hikes pants over hips. Assist to tie shoes. Pt states that he will be wearing boots at home.) Lower Body Dressing (QC): 3 (Assist to doff R sock with dressing stick due to increased pain as sock is pushed over heel. Pt is able to doff all other lower body clothing with SBA to push down over hips. Pt is able to don pants, socks and shoes by self after set up. SBA when pt hikes pants over hips. Assist to tie shoes. Pt states that he will be wearing boots at home.) On/Off Footwear (QC): 4 (Needs assist to doff R sock over heel. Dons socks/ shoes by self, assist to tie shoes.) Toileting (FIM): 5 (Pt is able to cleanse self sitting on toilet then SBA using FWW to manipulate clothing.) Toileting Hygiene (QC): 4 (Pt is able to cleanse self sitting on toilet then SBA using FWW to manipulate clothing.) Transfers (B, C, W/C) (FIM): 5 (SBA using FWW. Pt grimaces and vocalizes in pain with movement.) Toilet/Commode Transfer (FIM): 5 (Using grabbar and FWW or from w/c, pt is SBA. ) Toilet Transfer (QC): 4 (Using grabbar and FWW or from w/c, pt is SBA.) Shower Transfer(FIM): 5 (Using grabbar, shower bench and FWW or from w/c, pt is SBA.) Other Treatment Pt ambulated 20' from room to ARU kitchen using FWW with CGA, sat for recovery break. Pt states that his bathroom is 15' away and kitchen is 15' foot away from bed room where he spends most of his time. Pt thinks that he will use his FWW instead of a w/c at home. When he gets home it will be better. SINGLETON discussed with pt about using w/c with longer distances due to pt's pain level. Pt was able to use counter top to stabilize self while manipulating microwave and opening refrigerator and grasping items off shelf, SBA. After therapy, pt in w/c in room. Call light/phone in reach. All needs met in room. OT Short Term Goals Short Term Goals Time Frame: Dec 16, 2016 Lower Body Dressing(FIM): 3 Toilet/Commode Transfer(FIM): 3 Shower Transfer(FIM): 3 1=Demonstrate adherence to instructed precautions during ADL tasks. 2=Patient will verbalize/demonstrate understanding of assistive devices/ modifications for ADL. 3=Patient will improve strength/tolerance for activity to enable patient to perform ADL's. OT Chemical Operator Goals Residential Goals Time Frame: Jan 06, 2017 Eating (FIM): 6 (12/21/2016) Eating (QC): 6 (12/21/2016) Groomin (12/21/2016) Oral Hygiene (QC): 6 (12/21/2016) Bathing(FIM): 5 (12/21/2016) Shower/Bathe Self (QC): 5 (12/21/2016) Upper Body Dressing(FIM): 6 (not met) Upper Body Dressing (QC): 6 (not met) Lower Body Dressing(FIM): 6 (not met) Lower Body Dressing (QC): 6 (not met) On/Off Footwear (QC): 6 (not met) Toileting(FIM): 6 (not met) Toileting Hygiene (QC): 6 (not met) Toilet/Commode Transfer(FIM): 6 (not met) Toilet/Commode Transfer (QC): 6 (not et) Shower Transfer(FIM): 5 (12/21/2016) Comprehension(FIM): 4 (MET) Expression (FIM): 4 (MET) Social Interaction(FIM): 5 (MET) Problem Solving(FIM): 4 (MET) Memory(FIM): 4 (MET) Additional Goals: 1-Demonstrate ADL Tasks, 2-Verbalize Understanding, 3- ImproveStrength/Gonzalez 1=Demonstrate adherence to instructed precautions during ADL tasks. 2=Patient will verbalize/demonstrate understanding of assistive devices/ modifications for ADL. 3=Patient will improve strength/tolerance for activity to enable patient to perform ADL's. OT Education/Plan Problem List/Assessment Pt would benefit from skilled OT to increase his independence in basic self car to allow him to safely return home and to decrease caregiver burden Discharge Recommendations Plan/Recommendations: Continue POC Treatment Plan/Plan of Care Patient would benefit from OT for education, treatment and training to promote independence in ADL's, mobility, safety and/or upper extremity function for ADL' s. Plan of Care: ADL Retraining, Functional Mobility, Group Exercise/Act as Ind ( activity tolerance, exercise, education, funct mobility), UE Funct Exercise/Act , UE Neuromus Re-Ed/Coord Treatment Duration: Jan 06, 2017 Frequency: Twice Daily (5-6 times a week) Estimated Hrs Per Day: 1.5 hours per day Agreement: Yes Rehab Potential: Guarded Time/GCodes Start Time: 08:00 Stop Time: 09:30 Total Time Billed (hr/min): 90 Billed Treatment Time 1 visit-ADL 5 (60 min) FA 2 (30 min) DAVID ALMEIDA Dec 21, 2016 12:51
--- NOTE | 2016-12-21 14:28 | Physical Therapy Daily Note ---
PT Daily Note-Current Subjective Patient in wheelchair pre tx, agrees to PT, has 8/10 pain in his right side back and knee. Appearance Patient sitting EOB post tx with nurse call, phone, tray, all needs met. Mental Status Patient Orientation: Person, Place, Situation Transfers Functional [place] Measure 0=Not Assessed/NA 4=Minimal Assistance 1=Total Assistance 5=Supervision or Setup 2=Maximal Assistance 6=Modified [place] 3=Moderate Assistance 7=Complete IndependenceIRFPAI Quality Coding Scale 6 Independent with activity with or without an assistive device 5 Patient requires set up or clean up by helper. Patient completes activity by themselves 4 Supervision or touching assist (CGA). [place] provide cues , steadying assist 3 The helper provides less than half the effort to complete the activity 2 The helper provides more than half the effort to complete the activity 1 Dependent. The helper does all the effort to complete an activity 7 Patient refused to complete or attempt activity 9 The patient did not perform the activity before the current illness or injury 88 Not attempted due to Medical conditions or safety concerns Transfers (B, C, W/C) (FIM): 5 Sit to/from Stand: 5 Bed to/from Chair: 5 Cues for safety and hand placement. Gait Training Gait (FIM): 2 Distance: 50'x3 Gait Level of Assist: 4 (CGA) Gait Persons Needed: 1 Gait Assistive Device: FWW Slow, antalgic, decreased stance time on the right leg Wheelchair Training Wheelchair (FIM): 6 Distance: 150'x2 Type of Wheelchair: Manual Treatments transfers, ambulation, wheelchair mobility Assessment Current Status: Fair Progress improving ambulation PT Short Term Goals Short Term Goals Wheelchair Distance: 150' PT Fpc Goals Manager Recruitment Goals PT Manager Recruitment Goals Time Frame: Jan 07, 2017 Transfers (B,C,W/C) (FIM): 5 Sit to Lying (QC): 4 Lying-Sitting on Side/Bed(QC): 4 Sit to Stand (QC): 4 Rollin Roll Left to Right (QC): 4 Chair/Aez-zt-Msfzs Xfer(QC): 4 Car Transfer (QC): 4 Does the Patient Walk: No and Walking Goal IS indicated Gait (FIM): 1 Gait distance (FIM): 1=up to 49 ft (45) Distance: 45' Walk 10 feet (QC): 4 Walk 10ft-Uneven Surface(QC): 4 Walk 50ft with 2 Turns (QC): 9 Walk 150 ft (QC): 9 Gait Level of Assist: 5 Gait Assistive Device: FWW # of Steps: 1 1 Step (curb) (QC): 4 4 Steps (QC): 4 12 Steps (QC): 9 Stairs Level Of Assist: 4 Picking up an Object (QC): 4 PT Plan Problem List Problem List: Activity Tolerance, Functional Strength, Safety, Balance, Gait, Transfer, Bed Mobility, ROM Treatment/Plan Treatment Plan: Continue Plan of Care Treatment Plan: Bed Mobility, Education, Functional Activity Gonzalez, Functional Strength, Group Therapy, Gait, Safety, Therapeutic Exercise, Transfers Treatment Duration: Jan 07, 2017 Frequency: At least 5-7 days/Wk (IRF) Estimated Hrs Per Day: 1.5 hours per day Patient and/or Family Agrees t: Yes Safety Risks/Education Patient Education: Gait Training, Transfer Techniques, Correct Positioning, W/ C Management, Safety Issues Teaching Recipient: Patient Teaching Methods: Demonstration, Discussion Response to Teaching: Reinforcement Needed Time/GCodes Time In: 1400 Time Out: 1430 Total Billed Treatment Time: 30 Total Billed Treatment 1 visit [facility] 10' GT 20' SILVIO NAIDU PT Dec 21, 2016 14:28
[2016-12-21 19:26] VITALS: BP 125/75
[2016-12-21] MEDS: SIMvastatin 20 MG (ZOCOR) TAB PO SCH (21:21)
[2016-12-22] MEDS: HYDROcodone/APAP 10 MG/325 MG (LORTAB) TAB PO PRN ×4 (05:20→20:11)
[2016-12-22 06:00] VITALS: BP 153/87
[2016-12-22] MEDS: KCL 10 MEQ TAB (MICRO K) PO SCH ×3 (06:22→17:10)
[2016-12-22] MEDS: PANTOPRAZOLE 20 MG TABLET (PROTONIX) PO SCH (06:22)
[2016-12-22 08:30] VITALS: BP 149/89
[2016-12-22] MEDS: amLODIPine 5 MG (NORVASC) TAB PO SCH (08:32)
[2016-12-22] MEDS: METOCLOPRAMIDE 10 MG (REGLAN) TAB PO SCH ×2 (08:32→20:11)
[2016-12-22] MEDS: LORATADINE (CLARITIN) 10 MG TAB PO SCH (08:32)
[2016-12-22] MEDS: lisINopril 10 MG (PRINIVIL) TAB PO SCH (08:32)
[2016-12-22] MEDS: CLOPIDOGREL 75 MG (PLAVIX) TABLET PO SCH (08:32)
[2016-12-22] MEDS: CYCLOBENZAPRINE 10 MG (FLEXERIL) TAB PO SCH ×3 (08:32→20:11)
[2016-12-22] MEDS: ASPIRIN E.C. 81 MG (ECOTRIN) TAB PO SCH (08:32)
[2016-12-22] MEDS: DOCUSATE SODIUM 100 MG (COLACE) CAP PO SCH ×2 (08:32→20:11)
[2016-12-22] MEDS: DICLOFENAC 1% GEL 100 GM (VOLTAREN) TUBE TOP SCH ×4 (08:33→20:11)
[2016-12-22] MEDS: SENNA W/DOCUSATE (SENOKOT S) TABLET PO SCH ×2 (08:33→20:11)
[2016-12-22] MEDS: LACTULOSE SYRUP 10GM/15ML (ENULOSE) 30ML UDC PO SCH ×3 (08:33→20:16)
[2016-12-22] MEDS: FLUTICASONE NASAL SPRAY (FLONASE) 16 GM BTL NS SCH (08:34)
--- NOTE | 2016-12-22 08:36 | PM & R (SOAP) Progress Note ---
Subjective Time Seen by Provider: 08:10 Subjective/Events-last exam Patient was seen in his room this AM Patient SBA for transfers Requests Ibuprofen for rt knee pain Have asked DR Bass to see re possible injection Review of Systems Musculoskeletal: leg pain Objective Exam Last Set of Vital Signs Vital Signs Date Time Temp Pulse Resp B/P (MAP) Pulse Ox O2 Delivery O2 Flow Rate FiO2 12/22/16 06:00 97.9 91 20 153/87 96 Room Air Capillary Refill : Less Than 3 Seconds I&O Intake and Output 12/22/16 00:00 Intake Total 1600 ml Output Total 2900 ml Balance -1300 ml Intake Oral 1600 ml Output Urine Total 2900 ml General: Alert, Oriented X3, Cooperative, No Acute Distress HEENT: Atraumatic, PERRLA, EOMI, Mucous Memb Moist/[place] Neck: Supple, No JVD Lungs: Clear to Auscultation Heart: Regular Rate Abdomen: Normal Bowel Sounds, Soft, No Tenderness (trace edema rt ankle) Extremities: Other (Mild tendernees over Infrapatella region) Neuro: Other (guarding rt hip generalized weakness) Psych/Mental Status: Other (Short term memory loss) Assessment/Plan Assessment Rt hip frx s/p IM nailing 12-04-16 Dr Bass DJRuddy rt hip Postop anemia Postop electrolyte vmldnbdqcun-nkuzwjqeofem-oo fluid restriction Patient reports longstanding issue COPD stable Tobaccoism currently absstaining Gerd Protonix ordered-improved Chronic back pain 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 MAYKEL HUERATS MD Dec 22, 2016 08:36
--- NOTE | 2016-12-22 09:48 | Physical Therapy Daily Note ---
PT Daily Note-Current Subjective "Well what do you think , am I ready for tomorrow and going home"? whinces with movement but never c/o pain Pain Numeric Pain Scale: 0-No Pain Mental Status Patient Orientation: Normal For Age Transfers Functional [place] Measure 0=Not Assessed/NA 4=Minimal Assistance 1=Total Assistance 5=Supervision or Setup 2=Maximal Assistance 6=Modified [place] 3=Moderate Assistance 7=Complete IndependenceIRFPAI Quality Coding Scale 6 Independent with activity with or without an assistive device 5 Patient requires set up or clean up by helper. Patient completes activity by themselves 4 Supervision or touching assist (CGA). [place] provide cues , steadying assist 3 The helper provides less than half the effort to complete the activity 2 The helper provides more than half the effort to complete the activity 1 Dependent. The helper does all the effort to complete an activity 7 Patient refused to complete or attempt activity 9 The patient did not perform the activity before the current illness or injury 88 Not attempted due to Medical conditions or safety concerns Transfers (B, C, W/C) (FIM): 6 Scootin Rollin Roll Left to Right (QC): 6 Supine to/from Sit: 6 Sit to/from Stand: 6 Sit to Lying (QC): 6 Sit to Stand (QC): 6 Chair/Hdc-wk-Whagr Xfer(QC): 6 Bed to/from Chair: 6 Weight Bearing Weight Bearing Restriction: Weight Bearing/Tolerated Location Restriction: R LE Gait Training Does the Patient Walk?: Yes Gait (FIM): 2 Distance (FIM): 4=650-27 ft (60ftx2) Walk 10 feet (QC): 6 Walk 50 ft with 2 Turns(QC): 6 Walking 10ft/uneven surface-QC: 6 Gait Level of Assist: 6 Gait Persons Needed: 0 Gait Assistive Device: FWW heavy weight bearing , improved broader SHAYAN Stair Training Stair Training: Handrails/: 2 handrails Stairs (FIM): 2 #of Steps: 4 1 Step (curb) (QC): 4 4 Steps (QC): 4 Stairs: Pattern: Step to Level of Assist: 4 Exercises Supine Ex: Ankle pumps, Quad Set, Rolling, Glut sets, Heel Slides, Short Arc Quads, Scooting, Straight leg raise (assist), Hip abd/add (assist) Assessment Current Status: Good Progress meets goals PT Short Term Goals Short Term Goals Wheelchair Distance: 150'x2 PT Usp Goals Usp Goals PT Acetylene Plant Operator Goals Time Frame: Jan 07, 2017 Transfers (B,C,W/C) (FIM): 5 Sit to Lying (QC): 4 Lying-Sitting on Side/Bed(QC): 4 Sit to Stand (QC): 4 Rollin Roll Left to Right (QC): 4 Chair/Cky-pi-Bouuw Xfer(QC): 4 Car Transfer (QC): 4 Does the Patient Walk: No and Walking Goal IS indicated Gait (FIM): 1 Gait distance (FIM): 1=up to 49 ft (45) Distance: 45' Walk 10 feet (QC): 4 Walk 10ft-Uneven Surface(QC): 4 Walk 50ft with 2 Turns (QC): 9 Walk 150 ft (QC): 9 Gait Level of Assist: 5 Gait Assistive Device: FWW # of Steps: 1 1 Step (curb) (QC): 4 4 Steps (QC): 4 12 Steps (QC): 9 Stairs Level Of Assist: 4 Picking up an Object (QC): 4 PT Plan Treatment/Plan Treatment Plan: Continue Plan of Care Treatment Plan: Bed Mobility, Education, Functional Activity Gonzalez, Functional Strength, Group Therapy, Gait, Safety, Therapeutic Exercise, Transfers Treatment Duration: Jan 07, 2017 Frequency: At least 5-7 days/Wk (IRF) Estimated Hrs Per Day: 1.5 hours per day Patient and/or Family Agrees t: Yes Safety Risks/Education Patient Education: Gait Training, Transfer Techniques, Steps Teaching Recipient: Patient Teaching Methods: Demonstration, Discussion Response to Teaching: Verbalize Understanding, Return Demonstration, Reinforcement Needed Time/GCodes Time In: 900 Time Out: 1000 Total Billed Treatment Time: 60 Total Billed Treatment 1,GT30m,FA15m,EX15m G Codes Necessary: No GUNJAN DEL VALLE DAYCARE ASSISTANT Dec 22, 2016 09:48
[2016-12-22] MEDS: IBUPROFEN 600 MG (MOTRIN) TAB PO PRN ×2 (10:15→16:13)
--- NOTE | 2016-12-22 12:06 | Occupational Ther Daily Note ---
OT Current Status-Daily Note Subjective Pt sitting EOB, agrees to treatment. Pt reports 9/10 pain in right hip and knee , states he already had pain medication. Mental Status/Objective Functional [place] Measure 0=Not Assessed/NA 4=Minimal Assistance 1=Total Assistance 5=Supervision or Setup 2=Maximal Assistance 6=Modified [place] 3=Moderate Assistance 7=Complete [place] ADL-Treatment Pt sit to stand with modified independence. Gait to restroom with FWW. Transfer to walk in shower with SBA using grab bars for safety. Pt doffed clothing without assistance. Uses dressing stick to doff socks and pants. Seated bathing completed using long handled sponge. Pt able to wash/dry all areas with SBA. Don pullover shirt with set up. Pt able to don pants after set up. Dons left sock, but requires min assist with right sock. Pt able to don shoes, but requires assist to tie them. Pt states he has a pair of slip on shoes he will wear at home. Grooming completed seated at sink. Pt combed hair and shaved with modified independence. Pt declined to brush teeth at this time, but states he is able to complete task without assistance. Pt demonstrated ability to perform transfer to toilet with SBA using grab bars, cues for safety. Pt sitting in w/c with needs met after session. Functional [place] Measure 0=Not Assessed/NA 4=Minimal Assistance 1=Total Assistance 5=Supervision or Setup 2=Maximal Assistance 6=Modified [place] 3=Moderate Assistance 7=Complete IndependenceIRFPAI Quality Coding Scale 6 Independent with activity with or without an assistive device 5 Patient requires set up or clean up by helper. Patient completes activity by themselves 4 Supervision or touching assist (CGA). [place] provide cues , steadying assist 3 The helper provides less than half the effort to complete the activity 2 The helper provides more than half the effort to complete the activity 1 Dependent. The helper does all the effort to complete an activity 7 Patient refused to complete or attempt activity 9 The patient did not perform the activity before the current illness or injury 88 Not attempted due to Medical conditions or safety concerns Eating (FIM): 6 (Per reports pt is able to feed self, manage containers, and cut food without assistance.) Eating (QC): 6 Grooming (FIM): 6 Oral Hygiene (QC): 6 Bathing (FIM): 5 Shower/Bathe Self (QC): 4 Upper Body (FIM): 5 Upper Body Dressing (QC): 5 Lower Body Dressing (FIM): 4 Lower Body Dressing (QC): 3 On/Off Footwear (QC): 3 Toilet/Commode Transfer (FIM): 5 Toilet Transfer (QC): 4 Shower Transfer(FIM): 5 OT Short Term Goals Short Term Goals Time Frame: Dec 16, 2016 Lower Body Dressing(FIM): 3 Toilet/Commode Transfer(FIM): 3 Shower Transfer(FIM): 3 1=Demonstrate adherence to instructed precautions during ADL tasks. 2=Patient will verbalize/demonstrate understanding of assistive devices/ modifications for ADL. 3=Patient will improve strength/tolerance for activity to enable patient to perform ADL's. OT Comprehensive Advisor Goals Comprehensive Advisor Goals Time Frame: Jan 06, 2017 Eating (FIM): 6 (12/21/2016) Eating (QC): 6 (12/21/2016) Groomin (12/21/2016) Oral Hygiene (QC): 6 (12/21/2016) Bathing(FIM): 5 (12/21/2016) Shower/Bathe Self (QC): 5 (12/21/2016) Upper Body Dressing(FIM): 6 (not met) Upper Body Dressing (QC): 6 (not met) Lower Body Dressing(FIM): 6 (not met) Lower Body Dressing (QC): 6 (not met) On/Off Footwear (QC): 6 (not met) Toileting(FIM): 6 (not met) Toileting Hygiene (QC): 6 (not met) Toilet/Commode Transfer(FIM): 6 (not met) Toilet/Commode Transfer (QC): 6 (not et) Shower Transfer(FIM): 5 (12/21/2016) Comprehension(FIM): 4 (MET) Expression (FIM): 4 (MET) Social Interaction(FIM): 5 (MET) Problem Solving(FIM): 4 (MET) Memory(FIM): 4 (MET) Additional Goals: 1-Demonstrate ADL Tasks, 2-Verbalize Understanding, 3- ImproveStrength/Gonzalez 1=Demonstrate adherence to instructed precautions during ADL tasks. 2=Patient will verbalize/demonstrate understanding of assistive devices/ modifications for ADL. 3=Patient will improve strength/tolerance for activity to enable patient to perform ADL's. OT Education/Plan Problem List/Assessment Pt would benefit from skilled OT to increase his independence in basic self car to allow him to safely return home and to decrease caregiver burden Discharge Recommendations Plan/Recommendations: Continue POC Treatment Plan/Plan of Care Patient would benefit from OT for education, treatment and training to promote independence in ADL's, mobility, safety and/or upper extremity function for ADL' s. Plan of Care: ADL Retraining, Functional Mobility, Group Exercise/Act as Ind ( activity tolerance, exercise, education, funct mobility), UE Funct Exercise/Act , UE Neuromus Re-Ed/Coord Treatment Duration: Jan 06, 2017 Frequency: Twice Daily (5-6 times a week) Estimated Hrs Per Day: 1.5 hours per day Agreement: Yes Rehab Potential: Guarded Time/GCodes Start Time: 08:00 Stop Time: 09:00 Total Time Billed (hr/min): 60 Billed Treatment Time 1 visit, ADLx4(60minutes) ABDI MONCADA OT Dec 22, 2016 12:05
[2016-12-22 12:35] LABS: ALANINE AMINOTRANSFERASE 16 U/L (0-55); ALBUMIN 3.7 GM/DL (3.2-4.5); ANION GAP 7 MMOL/L (5-14); ASPARTATE AMINO TRANSFERASE 21 U/L (5-34); BILIRUBIN,TOTAL 0.6 MG/DL (0.1-1.0); BLOOD UREA NITROGEN 10 MG/DL (7-18); BUN/CREATININE RATIO 16; CALCIUM 9.3 MG/DL (8.5-10.1); CARBON DIOXIDE 24 MMOL/L (21-32); CHLORIDE 96 MMOL/L (98-107); CREATININE SERUM 0.61 MG/DL (0.60-1.30); GFR ESTIMATED > 60; GLUCOSE 112 MG/DL (70-105); POTASSIUM 4.7 MMOL/L (3.6-5.0); SODIUM 127 MMOL/L (135-145); TOTAL PROTEIN 6.7 GM/DL (6.4-8.2)
--- NOTE | 2016-12-22 13:25 | Physical Therapy Daily Note ---
PT Daily Note-Current Subjective Pleased he is doing so much better, stronger. Pain Numeric Pain Scale: 0-No Pain Transfers Functional [place] Measure 0=Not Assessed/NA 4=Minimal Assistance 1=Total Assistance 5=Supervision or Setup 2=Maximal Assistance 6=Modified [place] 3=Moderate Assistance 7=Complete IndependenceIRFPAI Quality Coding Scale 6 Independent with activity with or without an assistive device 5 Patient requires set up or clean up by helper. Patient completes activity by themselves 4 Supervision or touching assist (CGA). [place] provide cues , steadying assist 3 The helper provides less than half the effort to complete the activity 2 The helper provides more than half the effort to complete the activity 1 Dependent. The helper does all the effort to complete an activity 7 Patient refused to complete or attempt activity 9 The patient did not perform the activity before the current illness or injury 88 Not attempted due to Medical conditions or safety concerns in out chair and bed all Mod to SBA Weight Bearing Weight Bearing Restriction: Weight Bearing/Tolerated Location Restriction: R LE Gait Training Does the Patient Walk?: Yes Gait (FIM): 6 Distance (FIM): 3=150 ft (x2) Gait Level of Assist: 6 Gait Persons Needed: 0 Gait Assistive Device: FWW 150ft x2 FWW SBA Exercises NuStep Minutes: 10 NuStep Workload: 2 Assessment Current Status: Good Progress PT Short Term Goals Short Term Goals Wheelchair Distance: 150'x2 PT Chief Reservoir Engineering Goals Chief Reservoir Engineering Goals PT Snf Goals Time Frame: Jan 07, 2017 Transfers (B,C,W/C) (FIM): 5 Sit to Lying (QC): 4 Lying-Sitting on Side/Bed(QC): 4 Sit to Stand (QC): 4 Rollin Roll Left to Right (QC): 4 Chair/Jjj-xo-Qcgjw Xfer(QC): 4 Car Transfer (QC): 4 Does the Patient Walk: No and Walking Goal IS indicated Gait (FIM): 1 Gait distance (FIM): 1=up to 49 ft (45) Distance: 45' Walk 10 feet (QC): 4 Walk 10ft-Uneven Surface(QC): 4 Walk 50ft with 2 Turns (QC): 9 Walk 150 ft (QC): 9 Gait Level of Assist: 5 Gait Assistive Device: FWW # of Steps: 1 1 Step (curb) (QC): 4 4 Steps (QC): 4 12 Steps (QC): 9 Stairs Level Of Assist: 4 Picking up an Object (QC): 4 PT Plan Treatment/Plan Treatment Plan: Continue Plan of Care Treatment Plan: Bed Mobility, Education, Functional Activity Gonzalez, Functional Strength, Group Therapy, Gait, Safety, Therapeutic Exercise, Transfers Treatment Duration: Jan 07, 2017 Frequency: At least 5-7 days/Wk (IRF) Estimated Hrs Per Day: 1.5 hours per day Patient and/or Family Agrees t: Yes Safety Risks/Education Patient Education: Gait Training, Transfer Techniques Teaching Recipient: Patient Teaching Methods: Demonstration, Discussion Response to Teaching: Verbalize Understanding, Return Demonstration Time/GCodes Time In: 1300 Time Out: 1330 Total Billed Treatment Time: 30 Total Billed Treatment 1,GT20m,EX10m G Codes Necessary: GUNJAN Woods WAN SUPPORT SPECIALIST Dec 22, 2016 13:25
--- NOTE | 2016-12-22 14:03 | Occupational Ther Daily Note ---
OT Current Status-Daily Note Subjective Pt sitting in w/c, agrees to treatment. Mental Status/Objective Functional [place] Measure 0=Not Assessed/NA 4=Minimal Assistance 1=Total Assistance 5=Supervision or Setup 2=Maximal Assistance 6=Modified [place] 3=Moderate Assistance 7=Complete [place] ADL-Treatment Functional [place] Measure 0=Not Assessed/NA 4=Minimal Assistance 1=Total Assistance 5=Supervision or Setup 2=Maximal Assistance 6=Modified [place] 3=Moderate Assistance 7=Complete IndependenceIRFPAI Quality Coding Scale 6 Independent with activity with or without an assistive device 5 Patient requires set up or clean up by helper. Patient completes activity by themselves 4 Supervision or touching assist (CGA). [place] provide cues , steadying assist 3 The helper provides less than half the effort to complete the activity 2 The helper provides more than half the effort to complete the activity 1 Dependent. The helper does all the effort to complete an activity 7 Patient refused to complete or attempt activity 9 The patient did not perform the activity before the current illness or injury 88 Not attempted due to Medical conditions or safety concerns Other Treatment Pt performed w/c mobility to therapy gym without assistance. Pt completed bilateral UE exercises to increase strength needed for ADLs and transfers. Pt performed shoulder flexion, forward press, biceps curls, and wrist flex/ext x20 reps with 2# dowel yeimy. Brief rest breaks between exercises. Arm bike x15 minutes to increase overall strength and activity tolerance needed for functional tasks. Pt completed task with steady pace and moderate resistance. No rest breaks needed. Pt returned to room, sitting in w/c with needs met after session. OT Short Term Goals Short Term Goals Time Frame: Dec 16, 2016 Lower Body Dressing(FIM): 3 Toilet/Commode Transfer(FIM): 3 Shower Transfer(FIM): 3 1=Demonstrate adherence to instructed precautions during ADL tasks. 2=Patient will verbalize/demonstrate understanding of assistive devices/ modifications for ADL. 3=Patient will improve strength/tolerance for activity to enable patient to perform ADL's. OT Senior Living Goals Senior Living Goals Time Frame: Jan 06, 2017 Eating (FIM): 6 (12/21/2016) Eating (QC): 6 (12/21/2016) Groomin (12/21/2016) Oral Hygiene (QC): 6 (12/21/2016) Bathing(FIM): 5 (12/21/2016) Shower/Bathe Self (QC): 5 (12/21/2016) Upper Body Dressing(FIM): 6 (not met) Upper Body Dressing (QC): 6 (not met) Lower Body Dressing(FIM): 6 (not met) Lower Body Dressing (QC): 6 (not met) On/Off Footwear (QC): 6 (not met) Toileting(FIM): 6 (not met) Toileting Hygiene (QC): 6 (not met) Toilet/Commode Transfer(FIM): 6 (not met) Toilet/Commode Transfer (QC): 6 (not et) Shower Transfer(FIM): 5 (12/21/2016) Comprehension(FIM): 4 (MET) Expression (FIM): 4 (MET) Social Interaction(FIM): 5 (MET) Problem Solving(FIM): 4 (MET) Memory(FIM): 4 (MET) Additional Goals: 1-Demonstrate ADL Tasks, 2-Verbalize Understanding, 3- ImproveStrength/Gonzalez 1=Demonstrate adherence to instructed precautions during ADL tasks. 2=Patient will verbalize/demonstrate understanding of assistive devices/ modifications for ADL. 3=Patient will improve strength/tolerance for activity to enable patient to perform ADL's. OT Education/Plan Problem List/Assessment Pt would benefit from skilled OT to increase his independence in basic self car to allow him to safely return home and to decrease caregiver burden Discharge Recommendations Plan/Recommendations: Continue POC Treatment Plan/Plan of Care Patient would benefit from OT for education, treatment and training to promote independence in ADL's, mobility, safety and/or upper extremity function for ADL' s. Plan of Care: ADL Retraining, Functional Mobility, Group Exercise/Act as Ind ( activity tolerance, exercise, education, funct mobility), UE Funct Exercise/Act , UE Neuromus Re-Ed/Coord Treatment Duration: Jan 06, 2017 Frequency: Twice Daily (5-6 times a week) Estimated Hrs Per Day: 1.5 hours per day Agreement: Yes Rehab Potential: Guarded Time/GCodes Start Time: 11:00 Stop Time: 11:30 Total Time Billed (hr/min): 30 Billed Treatment Time 1 visit, EXx2(30minutes) ABDI MONCADA OT Dec 22, 2016 14:03
[2016-12-22] MEDS ORDERED: CYCL10TA9 PO (15:21)
[2016-12-22] MEDS ORDERED: POTA10TA6 PO (15:21)
[2016-12-22] MEDS ORDERED: LACT20SO2 PO (15:21)
[2016-12-22] MEDS ORDERED: DICL100G18 TOP (15:21)
[2016-12-22] MEDS ORDERED: METO10TA3 PO (15:21)
[2016-12-22] MEDS ORDERED: TRAM50TA2 PO (15:21)
[2016-12-22] MEDS ORDERED: SENN-20 PO (15:21)
[2016-12-22] MEDS ORDERED: HYDR-3820 PO (15:21)
[2016-12-22] MEDS ORDERED: AMLO5TAB2 PO (15:21)
[2016-12-22 18:05] VITALS: BP 106/72
[2016-12-22] MEDS: SIMvastatin 20 MG (ZOCOR) TAB PO SCH (20:11)
[2016-12-23] MEDS: KCL 10 MEQ TAB (MICRO K) PO SCH (05:27)
[2016-12-23] MEDS: HYDROcodone/APAP 10 MG/325 MG (LORTAB) TAB PO PRN (05:27)
[2016-12-23] MEDS: PANTOPRAZOLE 20 MG TABLET (PROTONIX) PO SCH (05:27)
[2016-12-23 05:38] VITALS: BP 147/95
--- NOTE | 2016-12-23 07:13 | PM & R (SOAP) Progress Note ---
Subjective Time Seen by Provider: 07:05 Subjective/Events-last exam Patient was seen in his room this AM.Has progressed well.Patient indicates that Ibuprofen helping with rt knee pain Objective Exam Last Set of Vital Signs Vital Signs Date Time Temp Pulse Resp B/P (MAP) Pulse Ox O2 Delivery O2 Flow Rate FiO2 12/23/16 05:38 97.9 100 16 147/95 93 Room Air Capillary Refill : Less Than 3 Seconds I&O Intake and Output 12/23/16 00:00 Intake Total 1530 ml Output Total 3000 ml Balance -1470 ml Intake Oral 1530 ml Output Urine Total 3000 ml # Voids 1 # Bowel Movements 1 General: Alert, Oriented X3, Cooperative, No Acute Distress HEENT: Atraumatic, PERRLA, EOMI, Mucous Memb Moist/[place] Neck: Supple, No JVD Lungs: Clear to Auscultation Heart: Regular Rate Abdomen: Normal Bowel Sounds, Soft, No Tenderness (trace edema rt ankle) Extremities: Other (Mild tendernees over [place] region) Neuro: Other (guarding rt hip generalized weakness) Psych/Mental Status: Other (Short term memory loss) Results Lab Laboratory Tests 12/22/16 12:01: Sodium Level 127L, Potassium Level 4.7, Chloride Level 96L, Carbon Dioxide Level 24, Anion Gap 7, Blood Urea Nitrogen 10, Creatinine 0.61, Estimat Glomerular Filtration Rate > 60, BUN/Creatinine Ratio 16, Glucose Level 112H, Calcium Level 9.3, Total Bilirubin 0.6, Aspartate Amino Transf (AST/SGOT) 21, Alanine Aminotransferase (ALT/SGPT) 16, Alkaline Phosphatase 109, Total Protein 6.7, Albumin 3.7 Assessment/Plan Assessment Rt hip frx s/p IM nailing 12-04-16 Dr Shelia ARCINIEGA rt hip Postop anemia Postop electrolyte dfwelremzkj-vtqjrtuuiaag-pm fluid restriction Patient reports longstanding issue COPD stable Tobaccoism currently absstaining Gerd Protonix ordered-improved Chronic back pain 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 See orders MAYKEL HUERTAS MD Dec 23, 2016 07:13
[2016-12-23] MEDS: LACTULOSE SYRUP 10GM/15ML (ENULOSE) 30ML UDC PO SCH (07:49)
[2016-12-23] MEDS: CLOPIDOGREL 75 MG (PLAVIX) TABLET PO SCH (08:04)
[2016-12-23] MEDS: IBUPROFEN 600 MG (MOTRIN) TAB PO PRN (08:04)
[2016-12-23] MEDS: lisINopril 10 MG (PRINIVIL) TAB PO SCH (08:04)
[2016-12-23] MEDS: amLODIPine 5 MG (NORVASC) TAB PO SCH (08:04)
[2016-12-23] MEDS: SENNA W/DOCUSATE (SENOKOT S) TABLET PO SCH ×2 (08:04→08:13)
[2016-12-23] MEDS: FLUTICASONE NASAL SPRAY (FLONASE) 16 GM BTL NS SCH (08:04)
[2016-12-23] MEDS: DICLOFENAC 1% GEL 100 GM (VOLTAREN) TUBE TOP SCH (08:05)
[2016-12-23] MEDS: CYCLOBENZAPRINE 10 MG (FLEXERIL) TAB PO SCH (08:05)
[2016-12-23] MEDS: ASPIRIN E.C. 81 MG (ECOTRIN) TAB PO SCH (08:05)
[2016-12-23] MEDS: METOCLOPRAMIDE 10 MG (REGLAN) TAB PO SCH (08:05)
[2016-12-23] MEDS: DOCUSATE SODIUM 100 MG (COLACE) CAP PO SCH ×2 (08:05→08:13)
[2016-12-23] MEDS: LORATADINE (CLARITIN) 10 MG TAB PO SCH (08:05)
--- NOTE | 2016-12-23 13:12 | Therapy Team Discharge Summary ---
Therapy Discharge Summary Discharge Recommendations Date of Discharge Dec 23, 2016 at 12:02 Therapy D/C Recommendations: Home w/ Family Support, Occupational Therapy Home Care, Physical Therapy Home Care, Snf Placement Occupational Therapy Pt was seen for skilled OT to increase his independence in basic self care to allow him to safely return to his home after a fall with hip fx and repair. On admission he needed setup for eating, grooming, bathing and dressing upper body but two person assist for lower body dressing and toileting/toilet transfer. By discharge he was modified independent with eating and grooming, SBA for bathing and toileting/toilet transfer and min assist with lower body dressing (help with socks but will wear slip on shoes at home). Equipment used included long handled sponge and dressing stick, shower bench, grab bars, hand held shower. Home health OT recommended. See tx plan for goals met. PT Detention Goals Detention Goals PT Kennel Supervisor Goals Time Frame: Jan 07, 2017 Transfers (B,C,W/C) (FIM): 5 Roll Left to Right (QC): 4 Sit to Lying (QC): 4 Lying-Sitting on Side/Bed(QC): 4 Sit to Stand (QC): 4 Chair/Xzh-ma-Xtwha Xfer(QC): 4 Car Transfer (QC): 4 Does the Patient Walk: No and Walking Goal IS indicated Gait (FIM): 1 Gait distance (FIM): 1=up to 49 ft (45) Distance: 45' Walk 10 feet (QC): 4 Walk 10ft-Uneven Surface(QC): 4 Walk 50ft with 2 Turns (QC): 9 Walk 150 ft (QC): 9 Gait Level of Assist: 5 Gait Assistive Device: FWW # of Steps: 1 1 Step (curb) (QC): 4 4 Steps (QC): 4 12 Steps (QC): 9 Stairs Level Of Assist: 4 Picking up an Object (QC): 4 OT Detention Goals Detention Goals Time Frame: Jan 06, 2017 Eating (FIM): 6 (12/21/2016) Eating (QC): 6 (12/21/2016) Oral Hygiene (QC): 6 (12/21/2016) Grooming(FIM): 6 (12/21/2016) Bathing(FIM): 5 (12/21/2016) Shower/Bathe Self (QC): 5 (12/21/2016) Upper Body Dressing(FIM): 6 (not met) Upper Body Dressing (QC): 6 (not met) Lower Body Dressing(FIM): 6 (not met) Lower Body Dressing (QC): 6 (not met) On/Off Footwear (QC): 6 (not met) Toileting(FIM): 6 (not met) Toileting Hygiene (QC): 6 (not met) Toilet/Commode Transfer(FIM): 6 (not met) Toilet/Commode Transfer (QC): 6 (not et) Shower Transfer(FIM): 5 (12/21/2016) Comprehension(FIM): 4 (MET) Expression (FIM): 4 (MET) Social Interaction(FIM): 5 (MET) Problem Solving(FIM): 4 (MET) Memory(FIM): 4 (MET) Additional Goals: 1-Demonstrate ADL Tasks, 2-Verbalize Understanding, 3- ImproveStrength/Gonzalez 1=Demonstrate adherence to instructed precautions during ADL tasks. 2=Patient will verbalize/demonstrate understanding of assistive devices/ modifications for ADL. 3=Patient will improve strength/tolerance for activity to enable patient to perform ADL's. Speech Detention Goals Kennel Supervisor Goals 1. The patient will demonstrate improved cognitive skills for increased function and safety with ADL's. Time Frame: Two Weeks Comprehension: 4 (MET) Expression: 4 (MET) Social Interaction: 5 (MET) Problem Solvin (MET) Memory: 4 (MET) JOSH DELONG OT Dec 23, 2016 13:12
--- NOTE | 2016-12-24 10:30 | Therapy Team Discharge Summary ---
Therapy Discharge Summary Discharge Recommendations Date of Discharge Dec 23, 2016 at 12:02 Therapy D/C Recommendations: Home w/ Family Support, Occupational Therapy Home Care, Physical Therapy Home Care, Senior Care Placement Physical Therapy This patient was seen f or skilled PT intervention post right femur fx. Upon admission, he was dependent for transfers, unable to ambulate and unable to attempt the stairs; he required max assist with wheel chair mobility. Treatment consisted of aggressive LE ther ex/strengthening, bed mobility, transfer, gait and safety training. Upon discharge he was mod indep with transfers, able to ambulate 60 ft with FWW mod indep (which makes the FIM score 5 due to household exception) and went up/down 4 steps--scoring a 2 on the FIM. He made good progress and achieved goals set at evaluation. Pt to discharge home with family support and recommend F/U C PT. DC PT. PT General Ii Farmworker Goals General Ii Farmworker Goals PT Senior Care Goals Time Frame: Jan 07, 2017 Transfers (B,C,W/C) (FIM): 5 (exceeded scored a 6) Roll Left to Right (QC): 4 (exceeded scored a 6) Sit to Lying (QC): 4 (exceeded scored a 6) Lying-Sitting on Side/Bed(QC): 4 (exceeded scored a 6) Sit to Stand (QC): 4 (exceded scored a 6) Chair/Jip-xf-Vhbyd Xfer(QC): 4 (exceeded scored a 6) Car Transfer (QC): 4 Does the Patient Walk: No and Walking Goal IS indicated Gait (FIM): 1 (exceeded, scored a 5) Gait distance (FIM): 1=up to 49 ft (45) Distance: 45' Walk 10 feet (QC): 4 (scored 6) Walk 10ft-Uneven Surface(QC): 4 (scored 6) Walk 50ft with 2 Turns (QC): 9 (scored 6) Walk 150 ft (QC): 9 (scored 6) Gait Level of Assist: 5 Gait Assistive Device: FWW # of Steps: 1 1 Step (curb) (QC): 4 4 Steps (QC): 4 12 Steps (QC): 9 Stairs Level Of Assist: 4 Picking up an Object (QC): 4 Pt exceeded all goals set at evaluation OT Senior Care Goals General Ii Farmworker Goals Time Frame: Jan 06, 2017 Eating (FIM): 6 (12/21/2016) Eating (QC): 6 (12/21/2016) Oral Hygiene (QC): 6 (12/21/2016) Grooming(FIM): 6 (12/21/2016) Bathing(FIM): 5 (12/21/2016) Shower/Bathe Self (QC): 5 (12/21/2016) Upper Body Dressing(FIM): 6 (not met) Upper Body Dressing (QC): 6 (not met) Lower Body Dressing(FIM): 6 (not met) Lower Body Dressing (QC): 6 (not met) On/Off Footwear (QC): 6 (not met) Toileting(FIM): 6 (not met) Toileting Hygiene (QC): 6 (not met) Toilet/Commode Transfer(FIM): 6 (not met) Toilet/Commode Transfer (QC): 6 (not et) Shower Transfer(FIM): 5 (12/21/2016) Comprehension(FIM): 4 (MET) Expression (FIM): 4 (MET) Social Interaction(FIM): 5 (MET) Problem Solving(FIM): 4 (MET) Memory(FIM): 4 (MET) Additional Goals: 1-Demonstrate ADL Tasks, 2-Verbalize Understanding, 3- ImproveStrength/Gonzalez 1=Demonstrate adherence to instructed precautions during ADL tasks. 2=Patient will verbalize/demonstrate understanding of assistive devices/ modifications for ADL. 3=Patient will improve strength/tolerance for activity to enable patient to perform ADL's. Speech Senior Care Goals Senior Care Goals 1. The patient will demonstrate improved cognitive skills for increased function and safety with ADL's. Time Frame: Two Weeks Comprehension: 4 (MET) Expression: 4 (MET) Social Interaction: 5 (MET) Problem Solvin (MET) Memory: 4 (MET) DAVID CHAPMAN PT Dec 24, 2016 10:30
--- NOTE | 2017-01-04 13:04 | DISCHARGE SUMMARY ---
DATE OF SERVICE: HISTORY OF PRESENT ILLNESS: The patient is a 66-year-old male who was admitted to [facility] after he fell at home sustaining a right hip fracture. He had repair with orthopedics and was followed by hospitalist service as well. He had significant postoperative anemia with hemoglobin of 6.3 on postoperative day #2, he had 2 units packed red blood cells transfused. He had significant hyponatremia was noted as well, as well as hypokalemia. The patient was provided with a fluid restriction and K replacement. The patient had been independent prior to this, retired and living in [place], [place] alone. He is but has supportive family nearby. His admission labs revealed a serum sodium 130, potassium of 2.7, chloride 97, creatinine kinase 401. Serum albumin 3, total protein 5.3, H and H was 9.8/28 with a WBC count of 7.3, platelet count 207k. PAST MEDICAL HISTORY: Arthritis, coronary artery disease, COPD, GERD, hypertension, tobaccoism, scoliosis presbycusis, low back pain. He has had a CABG x3 with stent, an IM nail for right hip fracture 12/04/2016, weightbearing as tolerated. MEDICAL COURSE: The patient was afebrile during his stay. His pulse was 100 on 12/23, respirations 16, blood pressure 147/95, O2 sat 93% on room air. His incision was healing well and his dorothy were removed on 12/21/2016. He was seen by Dr. Schneider, silk screen repairer, and had debridement of toenails with diagnosis of idiopathic neuropathy, peripheral vascular disease, onychomycosis and hallux rigidus right. The patient was followed by Dr. Hannon and Rachael while on rehab unit as well. His Plavix and aspirin were continued as well as his loratadine. He had some postop constipation. Medications were adjusted for this with improvement. He had some complaints of right knee pain. Radiographs revealed chondrocalcinosis. The patient requested ibuprofen for this with improvement. He may have followup with orthopedics regarding this on an outpatient basis. He had an x-ray of the hip on 12/09/2016 that showed internal fixation of right intratrochanteric fracture, good alignment. CBC on 12/16/2016 showed WBC 6.8, H and H 11.8/35, platelet count 634k. Chemistry on 12/22/2016 showed serum sodium 127 down from 130 on 12/16/2016. The patient may have followup with PCP regarding this continued hypernatremia. Chloride was 96, glucose 112. REHABILITATION COURSE: He did progress well with his therapies. He had increased strength and endurance. Decreased pain. OT notes upon admission, the patient required set up for eating, grooming, bathing and dressing upper body, but 2 person assist for lower body dressing and toileting, toilet transfers. By discharge, he was modified independent with eating and grooming, standby assist for bathing and toileting, toilet transfers, and min assist for lower body dressing. Equipment used included long handle sponge and dressing stick, shower bench, grab bars, hand held shower, home health care, OT was recommended. Speech therapy noted. Upon admission, the patient demonstrated moderate cognitive deficits, most notably in comprehension and functional problem solving, skilled speech pathology focused on functional memory strategies, external and internal functional activities and safety problem solving. The patient has met all goals initially placed by the clinician and will be discharged. Social interaction was rated as a 5 and at discharge problem solving at a 4, memory at a 4, expression and comprehension at 4. The patient apparently had some premorbid cognitive issues. PT notes upon admission, the patient was dependent for transfers, unable to ambulate, unable to attempt the stairs. He required max assist for wheelchair mobility. Upon discharge, he was modified independent with transfers, able to ambulate 60 feet with a front wheel walker, modified independent and went up and down four steps scoring a 2 on the FIM. He made good progress and achieved goals set at evaluation. The patient is discharged to home. Recommended follow up home health care PT. DISCHARGE INSTRUCTIONS: Home health care, PT and RN services ordered for patient. A prescription for wheeled walker provided as well. He will have followup with Dr. Reyes at [facility] and Dr. Bass with orthopedics as per their schedule. Continue current diet. Follow up serum sodium as recommended with Dr. Reyes. The patient indicates this is a chronic condition. DISCHARGE MEDICATIONS: Amlodipine 5 mg p.o. daily, Voltaren topically q.i.d., lactulose 10 grams p.o. b.i.d., KCl 10 mEq p.o. t.i.d., Senokot-S 2 tablets p.o. b.i.d., tramadol 50 mg p.o. q. 6 hours for any moderate pain, Aspirin 81 mg p.o. daily, Plavix 75 mg p.o. daily. Flexeril 10 mg p.o. t.i.d., Flonase two sprays nasally daily, furosemide 40 mg p.o. daily p.r.n. swelling, hydrocodone 10/325 one tablet p.o. q. 4 hours p.r.n. moderate pain, Lansoprazole 30 mg p.o. b.i.d., lisinopril 10 mg p.o. daily, Reglan 10 mg p.o. b.i.d., pravastatin 40 mg p.o. every day. DISCHARGE DIAGNOSES: 1. Rehabilitation ambulatory dysfunction secondary to right intertrochanteric fracture status post repair Dr. Bass. 2. Acute blood loss anemia, improving status post transfusion. 3. Hyponatremia, stable. 4. Hypokalemia, treated with replacement with serum potassium 4.7 on 12/22/2016 was 3.6727. 5. Coronary artery disease, stable. 6. Chronic obstructive pulmonary disease, stable. 7. Hypertension, controlled on medication. 8. Gastroesophageal reflux disease, on medication. 9. Osteoarthritis right hip. 10. Hypercholesterolemia, on statin. 11. Smoker currently abstaining. 12. Low back pain, chronic. 13. Scoliosis. 14. Mild cognitive impairment. 15. Amnesia improved. 16. Fatigue, improved. 17. Presbycusis. 18. Status post CABG. 19. Status post coronary stent. 20. Idiopathic neuropathy. 21. Peripheral vascular disease. 22. Onychomycosis. 23. Hallux rigidus, right 24. Chondrocalcinosis of the right knee. 25. Degenerative joint disease of the right knee. CONDITION AT DISCHARGE: Improved and stable. PROGNOSIS: Rehab prognosis appears good for some continued improvement at home with assistance from family and home health care as needed. Job ID: [id number] DocumentID: [id number] Dictated Date: 01/04/2017 12:12:58 Fuels Sales Representative Date: 01/04/2017 13:04:25 Dictated By: MAYKEL HANNON MD
== END 2016-12-23 12:02 | disposition home health service (06) | DRG 560 ==
LOC: ENPENDDIS 12-23 12:00
PROVIDERS: ADMIT Physical Medicine & Rehabilitation; ATTEND Physical Medicine & Rehabilitation
DX: S72.141D Displaced intertrochanteric fracture of right femur, subsequent encounter for closed fracture with routine healing (principal); D62 Acute posthemorrhagic anemia; E87.1 Hypo-osmolality and hyponatremia; E87.6 Hypokalemia; I25.10 Atherosclerotic heart disease of native coronary artery without angina pectoris; J44.9 Chronic obstructive pulmonary disease, unspecified; I10 Essential (primary) hypertension; K21.9 Gastro-esophageal reflux disease without esophagitis; M16.11 Unilateral primary osteoarthritis, right hip; M17.11 Unilateral primary osteoarthritis, right knee; G60.9 Hereditary and idiopathic neuropathy, unspecified; I73.9 Peripheral vascular disease, unspecified; E78.00 Pure hypercholesterolemia, unspecified; F17.200 Nicotine dependence, unspecified, uncomplicated; M54.5 Low back pain; M41.9 Scoliosis, unspecified; G31.84 Mild cognitive impairment of uncertain or unknown etiology; R41.3 Other amnesia; R53.81 Other malaise; H91.10 Presbycusis, unspecified ear; Z95.1 Presence of aortocoronary bypass graft; Z95.5 Presence of coronary angioplasty implant and graft; B35.1 Tinea unguium; M20.5X1 Other deformities of toe(s) (acquired), right foot; M11.261 Other chondrocalcinosis, right knee
CPT/HCPCS: 36415; 73502; 73562; 80053; 85025; 94010; 94640; 94760

== ENCOUNTER 2018-02-27 14:47 | Emergency (ER) | payer MEDICARE ==
[~2018-02-27] VITALS: Ht 175.3 cm; Wt 56.7 kg
[~2018-02-27 14:47] MED LIST changes: +AMLO5TAB7 PO; +DICL100G18 TOP; +LACT20SO2 PO; +POTA10TA6 PO; +SENN-20 PO
--- OUTSIDE RECORDS SUMMARY | 2018-02-27 14:53 | XMS REPORT ---
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 Active 77997134 Problem Venous insufficiency I87.2 Active 22076679 Problem Hyperlipidemia E78.5 Active 77597378 Problem Peripheral vascular disease I73.9 Active 221913565 Problem Cigarette nicotine dependence without complication F17.210 Active 98620168 ALLERGIES No Information ENCOUNTERS Encounter Location Date Diagnosis [facility] [id number] [place] [address] 76080- 1488 12 Feb, 2018 Back pain M54.9 [facility] [id number] [place] [address] 83390- 9216 04 Feb, 2018 Tinea pedis of both feet B35.3 and BMI 40.0-44.9, adult Z68.41 [facility] [id number] [place] [address] 89809- 2140 18 Jan, 2018 Tinea pedis of both feet B35.3 [facility] [id number] [place] [address] 77715- 2939 13 Jan, 2018 Back pain M54.9 [facility] [id number] [place] [address] 90475- 3910 Dec, Back pain M54.9 ; Hyponatremia E87.1 ; 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 ; Peripheral vascular disease I73.9 ; Cigarette nicotine dependence without complication F17.210 ; Coronary artery disease I25.10 and GERD (gastroesophageal reflux disease) K21.9 [facility] [id number] [place] [address] 00316- 6269 Dec, Back pain M54.9 [facility] [address] 24385- 9597 Nov, Back pain M54.9 [facility] [address] 11792- 8678 Nov, Back pain M54.9 [facility] [address] 36407- 8882 Nov, Bronchitis J40 [facility] [address] 17231- 1777 Oct, Back pain M54.9 [facility] [id number] [place] [address] 14817- 0647 Oct, 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 [facility] [place] [id number] [place] [address] 83668- 8297 September, 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 ; Medication monitoring encounter Z51.81 ; Back pain M54.9 ; Weakness R53.1 ; Cigarette nicotine dependence without complication F17.210 ; Coronary artery disease I25.10 and Peripheral vascular disease I73.9 [facility] [id number] [place] [address] 12035- 1595 September, Back pain M54.9 [facility] [id number] [place] [address] 76820- 7702 Aug, Back pain M54.9 [facility] [id number] [place] [address] 60790- 3683 Aug, [facility] [id number] [place] [address]- 5282 Aug, Back pain M54.9 [facility] [id number] [place] [address] 08565- 9516 Jul, Back pain M54.9 [facility] [id number] [place] [address] 71568 2546 Jun, [facility] [id number] [place] [address] 07276 2546 Jun, Back pain M54.9 [facility] [id number] [place] [address] 30741- 4616 May, Back pain M54.9 [facility] [id number] [place] [address] 55511- 9946 May, Back pain M54.9 [facility] [id number] [place] [address] 38607- 1263 May, Hypertension I10 ; Back pain M54.9 and Cigarette nicotine dependence without complication F17.210 [facility] [id number] [place] [address] 74653- 1444 Apr, Back pain M54.9 [facility] [id number] [place] [address] 61861 2546 Apr, Hypokalemia E87.6 [facility] [id number] [place] [address] 42231 2546 Apr, Hypokalemia E87.6 [facility] [id number] [place] [address] 16226 2544 Mar, Back pain M54.9 [facility] [id number] [place] [address] 45870 2546 Mar, [facility] [id number] [place] [address] 08594- 2549 Mar, Back pain M54.9 ; Coronary artery disease I25.10 and Acute nasopharyngitis J00 [facility] [address] [place] [address] 52213- 8624 Mar, Back pain M54.9 [facility] [id number] [place] [address] 55801- 2726 05 Feb, 2017 Back pain M54.9 [facility] [id number] [place] [address] 98807- 4826 26 Jan, 2017 Anemia due to blood loss D50.0 and Hypokalemia E87.6 [facility] [id number] [place] [address] 89111- 4436 18 Jan, 2017 [facility] [id number] [place] [address] 53984- 8602 11 Jan, 2017 Hypokalemia E87.6 [facility] [id number] [place] [address] 26946- 4239 08 Jan, 2017 Back pain M54.9 [facility] [id number] [place] [address] 62851- 7352 08 Jan, 2017 [facility] [id number] [place] [address] 99777- 7663 14 Dec, 2016 Hypertension I10 and Back pain M54.9 [facility] [id number] [place] [address] 88813- 5751 29 Oct, 2016 Back pain M54.9 [facility] [id number] [place] [address] 14170- 6234 15 Oct, 2016 Back pain M54.9 [facility] [id number] [place] [address] 52426- 6587 07 Oct, 2016 Back pain M54.9 [facility] [id number] [place] [address] 96413- 8188 08 Sep, 2016 Back pain M54.9 [facility] [id number] [place] [address] 19041- 2275 Aug, Back pain M54.9 [facility] [id number] [place] [address] 61725- 6176 Aug, Epistaxis R04.0 [facility] [id number] [place] [address] 00318- 9749 Jul, [facility] [id number] [place] [address] 77012- 7152 Jul, Back pain M54.9 [facility] [id number] [place] [address] 98380- 6943 Jun, Back pain M54.9 [facility] [id number] [place] [address] 63896- 9140 Jun, Localized edema R60.0 [facility] [id number] [place] [address] 46003- 8390 Jun, [facility] [id number] [place] [address] 40705- 1473 Jun, Anemia due to blood loss D50.0 ; Venous insufficiency I87.2 ; Hypertension I10 and Plantar fasciitis M72.2 [facility] [id number] [place] [address] 31652- 4551 May, Back pain M54.9 [facility] [address] [place] [address] 97156- 2595 May, [facility] [id number] [place] [address] 79742- 3711 May, 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 ; Anemia due to blood loss D50.0 and Venous insufficiency I87.2 [facility] [id number] [place] [address] 28962- 1366 May, Back pain M54.9 [facility] [address] [place] [address] 66567- 8997 May, Anemia due to blood loss D50.0 [facility] [id number] [place] [address] 26805- 1727 May, Localized edema R60.0 [facility] [address] 77134- 9892 May, Blood loss anemia D50.0 ; Localized edema R60.0 and Coronary artery disease I25.10 [facility] [id number] [place] [address] 24375- 6717 Apr, Blood loss anemia D50.0 [facility] [id number] [place] [address] 04998- 4356 Apr, Epistaxis R04.0 ; Anemia, unspecified type D64.9 and Hyponatremia E87.1 [facility] [id number] [place] [address] 77856- 3954 Apr, [facility] [address] 95214- 0324 Apr, Back pain M54.9 [facility] [id number] [place] [address] 75912- 6986 Apr, Back pain M54.9 [facility] [id number] [place] [address] 43380- 7026 Mar, [facility] [id number] [place] [address] 63813- 5763 Mar, Back pain M54.9 [facility] [id number] [place] [address] 21836- 4527 Feb, [facility] [id number] [place] [address] 97526- 5336 Feb, [facility] [id number] [place] [address] 94396- 4436 Jan, [facility] [id number] [place] [address] 46313- 6239 Dec, [facility] [address] [place] [address]- 2021 Dec, [facility] [id number] [place] [address] 64263- 4499 Dec, Arthritis, 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 and Leg weakness, bilateral M62.81 [facility] [id number] [place] [address] 58742- 4228 Dec, [facility] [id number] [place] [address] 99674- 0351 Oct, Back pain M54.9 [facility] [id number] [place] [address] 57560- 9620 Oct, Back pain M54.9 [facility] [id number] [place] [address] 09009- 5217 September, Back pain M54.9 [facility] [id number] [place] [address] 87384- 9064 Aug, Back pain M54.9 [facility] [id number] [place] [address] 33286- 6542 Aug, Back pain M54.9 [facility] [id number] [place] [address] 90038- 1131 Jul, [facility] [id number] [place] [address] 21305- 6681 Jul, Back pain M54.9 [facility] [id number] [place] [address] 70507- 8538 Jun, [facility] [id number] [place] [address] 64739- 1004 Jun, Back pain M54.9 [facility] [id number] [place] [address] 81708- 8781 May, 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 ; Back pain M54.9 ; Hyperlipidemia E78.5 ; Hypertension I10 and GERD (gastroesophageal reflux disease) K21.9 [facility] [address] [address]- 3060 May, Arthritis M19.90 [facility] [id number] [place] [address] 46002- 1166 Apr, [facility] [id number] [place] [address] 11938- 7902 Apr, [facility] [id number] [place] [address] 32521- 5895 Mar, [facility] [id number] [place] [address] 70707- 6982 Mar, [facility] [id number] [place] [address] 86195- 9211 Feb, Arthritis M19.90 ; Encounter for immunization Z23 ; Contusion of right hip S70.01XA and Coronary artery disease I25.10 [facility] [id number] [place] [address] 79708- 0734 Jan, [facility] [id number] [place] [address] 98313- 9953 Jan, [facility] [id number] [place] [address] 47981- 2748 Dec, Acute bronchitis 466.0 and Unspecified arthropathy, site unspecified 716.90 [facility] [address] [address]- 6192 Dec, [facility] [address] [address]- 9986 Dec, [facility] [id number] [place] [address] 84565- 5249 Nov, [facility] [id number] [address]- 7606 Nov, [facility] [id number] [place] [address] 05645- 7896 Nov, [facility] [address] [id number] [place] [address]- 6560 Oct, [facility] [address] [id number] [place] [address]- 8169 Oct, [facility] [address] [facility] [id number] [place] [address]- 7570 Oct, Unspecified arthropathy, site unspecified 716.90 [facility] [address] [id number] [place] [address]- 7129 Oct, [facility] [address] [facility] [id number] [place] [address]- 3020 September, [facility] [address] [facility] [id number] [place] [address]- 3869 September, [facility] [address] [facility] [id number], [place] [address]- 2659 Aug, [facility] [address] [facility] [id number] [place] [address]- 9385 Aug, [facility] [address] [facility] [id number], [place] [address]- 4761 Jul, [facility] [address] [facility] [id number] [place] [address]- 7709 Jul, [facility] [place] [facility] [address] [facility] [id number], [place] [address]- 5620 Jul, [facility] [place] [facility] [address] [facility] [id number], [place] [address]- 1882 Jul, [facility] [place] [facility] [address] [facility] [id number], [place] [address]- 4852 Jul, [facility] [place] [facility] [address] [facility] [id number], [place] [address]- 6390 Jul, [facility] [place] [facility] [address] [facility] [id number] [place] [address]- 2269 Jun, [facility] [place] [facility] [address] [id number] [place] [address]- 5644 Jun, [facility] [place] [facility] [address] [id number] [place] [address]- 0126 Jun, [facility] [place] [facility] [address] [id number] [place] [address]- 7241 Jun, [facility] [place] [facility] [address] [id number] [place] [address]- 0701 May, [facility] [place] [facility] [address] [id number] [place] [address]- 7075 May, [facility] [place] [facility] [address] [id number] [place] [address]- 0540 May, [facility] [place] [facility] [address] [id number] [place] [address]- 1807 May, [facility] [place] [facility] [address] [id number] [place] [address]- 7703 May, [facility] [place] [facility] [address] [id number] [place] [address]- 9528 May, [facility] [place] [facility] [address] [id number] [place] [address]- 4042 May, [facility] [place] [facility] [address] [id number] [place] [address]- 0141 May, [facility] [place] [facility] [address] [id number] [place] [address]- 5228 May, [facility] [place] [facility] [address] [id number] [place] [address]- 7221 May, [facility] [place] [facility] [address] [id number] [place] [address]- 6327 May, [facility] [place] [facility] [address] [id number] [place] [address]- 5248 Apr, [facility] [place] [facility] [address] [id number] [place] [address]- 3556 Apr, [facility] [place] [facility] [address] [id number] [place] [address]- 8319 Apr, [facility] [place] [facility] [address] [id number] [place] [address]- 0956 Apr, [facility] [place] [facility] [address] [id number] [place] [address]- 9682 Apr, [facility] [place] [facility] [address] [id number] [place] [address]- 7980 Mar, [facility] [place] [facility] [address] [id number] [place] [address]- 2206 Mar, [facility] [place] [facility] [address] [id number] [place] [address]- 3626 Feb, [facility] [place] [facility] [address] [id number] [place] [address]- 5431 Feb, [facility] [place] [facility] [address] [id number] [place] [address]- 7807 Feb, [facility] [place] [facility] [address] [id number] [place] [address]- 6520 Feb, [facility] [place] [facility] [address] [id number] [place] [address]- 8519 Jan, [facility] [place] [facility] [address] [id number] [place] [address]- 4230 Jan, [facility] [place] [facility] [address] [id number], [place] [address]- 7192 Dec, [facility] [place] [facility] [address] [id number] [place] [address]- 6691 Dec, [facility] [place] [facility] [address] [id number] [place] [address]- 4863 Nov, [facility] [place] [facility] [address] [id number] [place] [address]- 3889 Nov, [facility] [place] [facility] [address] [id number] [place] [address]- 8833 Oct, [facility] [address] [id number] [place] [address]- 5069 Oct, [facility] [place] [facility] [address] [id number] [place] [address]- 7881 Oct, [facility] [address] [id number] [place] [address]- 8173 Oct, [facility] [place] [facility] [address] [id number] [place] [address]- 1017 Aug, [facility] [address] [id number] [place] [address]- 7125 Aug, [facility] [address] [id number] [place] [address]- 4208 Aug, [facility] [place] [facility] [address] [id number] [place] [address]- 5385 Aug, [facility] [address] [id number] [place] [address]- 4321 May, [facility] [place] [facility] [address] [id number] [place] [address]- 3065 May, [facility] [address] [id number] [place] [address]- 1407 May, [facility] [place] [facility] [address] [id number] [place] [address]- 2713 May, [facility] [place] [facility] [address] [id number] [place] [address]- 1753 May, [facility] [place] [facility] [address] [id number] [place] [address]- 5313 May, [facility] [place] [facility] [address] [id number] [place] [address]- 3521 May, [facility] [place] [facility] [address] [id number] [place] [address]- 0872 Apr, [facility] [address] [id number] [place] [address]- 2825 Apr, [facility] [place] [facility] [address] [id number] [place] [address]- 4107 Apr, [facility] [place] [facility] [address] [id number] [place] [address]- 4806 Apr, [facility] [place] [facility] [address] [id number] [place] [address]- 8006 Apr, [facility] [address] [id number] [place] [address]- 7532 Apr, [facility] [place] [facility] [address] [id number] [place] [address]- 4536 Apr, [facility] [place] [facility] [address] [facility] [id number] [place] [address]- 1947 Apr, [facility] [place] [facility] [address] [id number], [place] [address]- 8244 Apr, [facility] [place] [facility] [address] [id number] [place] [address]- 3782 Apr, [facility] [place] [facility] [address] [id number], [place] [address]- 2965 Mar, [facility] [place] [facility] [address] [id number], [place] [address] Mar, [facility] [place] [facility] [address] [id number], [place] [address] 14 Mar, 2013 [facility] [place] [facility] [address] [id number], [place] [address] Mar, [facility] [place] [facility] [address] [id number], [place] [address] Feb, [facility] [place] [facility] [address] [id number], [place] [address] Feb, [facility] [place] [facility] [address] [id number], [place] [address] Jan, [facility] [address] [id number] [place] [address] Jan, [facility] [address] [id number] [place] [address] Jan, [facility] [address] [id number] [place] [address] Dec, [facility] [address] [id number] [place] [address] Dec, [facility] [address] [id number] [place] [address] Nov, [facility] [address] [id number] [place] [address] Oct, [facility] [address] [id number] [place] [address] Oct, [facility] [address] [id number] [place] [address] Oct, [facility] [address] [id number] [place] [address] September, [facility] [address] [id number] [place] [address] September, [facility] [address] [id number] [place] [address] Jun, [facility] [place] [facility] [address] [id number] [place] [address] Jun, [facility] [place] [facility] [address] [id number] [place] [address] Jun, [facility] [place] [facility] [address] [id number] [place] [address] Jun, [facility] [address] [id number], [place] [address] May, [facility] [place] [facility] [address] [id number] [place] [address]- [address] May, [facility] [place] [facility] [address] [id number] [place] [address] May, [facility] [place] [facility] [address] [id number] [place] [address] May, [facility] [place] [facility] [address] [id number] [place] [address] Apr, [facility] [place] [facility] [address] [id number] [place] [address] Apr, [facility] [place] [facility] [address] [id number] [place] [address]95 Apr, [facility] [place] [facility] [address] [id number] [place] [address] Apr, [facility] [place] [facility] [address] [id number] [place] [address] Apr, [facility] [place] [facility] [address] [id number] [place] [address] Apr, [facility] [place] [facility] [address] [id number] [place] [address] Mar, [facility] [place] [facility] [address] [id number] [place] [address] Mar, [facility] [place] [facility] [address] [id number] [place] [address] Mar, [facility] [place] [facility] [address] [id number] [place] [address] Mar, [facility] [place] [facility] [address] [id number] [place] [address] Feb, [facility] [place] [facility] [address] [id number] [place] [address] 269[address] Feb, [facility] [place] [facility] [address] [id number] [place] [address]- [address] 11 Feb, 2012 [facility] [place] [facility] [address] [id number] [place] [address] 11 Feb, 2012 [facility] [place] [facility] [address] [id number] [place] [address] 10 Feb, 2012 [facility] [place] [facility] [address] [id number] [place] [address]- [address] 17 Jan, 2012 [facility] [place] [facility] [address] [id number] [place] [address] 13 Jan, 2012 [facility] [place] [facility] [address] [id number] [place] [address] 12 Jan, 2012 [facility] [place] [facility] [address] [id number] [place] [address] 12 Jan, 2012 [facility] [place] [facility] [address] [id number] [place] [address] 11 Jan, 2012 [facility] [place] [facility] [address] [id number] [place] [address] 14 Dec, 2011 [facility] [place] [facility] [address] [id number] [place] [address] 17 Nov, 2011 [facility] [place] [facility] [address] [id number] [place] [address] Nov, [facility] [place] [facility] [address] [id number] [place] [address] Nov, [facility] [place] [facility] [address] [id number], [place] [address] Nov, [facility] [place] [facility] [address] [id number] [place] [address] Nov, [facility] [place] [facility] [address] [id number] [place] [address] 14 Oct, 2011 [facility] [place] [facility] [address] [id number] [place] [address] September, [facility] [place] [facility] [address] [id number] [place] [address] September, [facility] [address] [id number] [place] [address] Aug, [facility] [address] [id number] [place] [address] Aug, [facility] [address] [id number] [place] [address] Aug, [facility] [address] [id number] [place] [address] 16[address] Aug, [facility] [address] [id number] [place] [address] 16 Jul, 2011 [facility] [address] [id number] [place] [address] Jul, [facility] [address] [id number] [place] [address] 10 Jun, 2011 [facility] [address] [id number] [place] [address] 07 Jun, 2011 [facility] [address] [id number] [place] [address] 06 Jun, 2011 [facility] [address] [facility] [id number] [place] [address] Jun, [facility] [address] [id number] [place] [address] 39[address] May, [facility] [address] [id number] [place] [address] May, [facility] [place] [facility] [address] [id number] [place] [address] May, [facility] [place] [facility] [address] [id number] [place] [address] May, [facility] [place] [facility] [address] [id number] [place] [address] 46[address] May, [facility] [address] [id number] [place] [address] 2435 May, [facility] [place] [facility] [address] [id number] [place] [address] 9185 Apr, [facility] [place] [facility] [address] [id number] [place] [address] Apr, [facility] [place] [facility] [address] [id number] [place] [address]185 Apr, [facility] [place] [facility] [address] [id number] [place] [address] Apr, [facility] [place] [facility] [address] [id number] [place] [address] 3800 Apr, [facility] [place] [facility] [address] [id number] [place] [address] 270[address] Apr, [facility] [place] [facility] [address] [id number] [place] [address] Apr, [facility] [place] [facility] [address] [id number] [place] [address] 6792 Apr, [facility] [place] [facility] [address] [id number] [place] [address] Mar, [facility] [place] [facility] [address] [id number] [place] [address] 4683 Mar, [facility] [place] [facility] [address] [id number], [place] [address] Mar, [facility] [place] [facility] [address] [id number] [place] [address] September, [facility] [place] [facility] [address] [id number] [place] [address] September, [facility] [place] [facility] [address] [id number] [place] [address] Jul, [facility] [place] [facility] [id number] [address] 10 Jun, 2010 [facility] [id number] [address] [address] Apr, [facility] [id number] [address] [address] Apr, [facility] [id number], [place] [address] Apr, [facility] [address] [facility] [id number], [place] [address] Mar, [facility] [id number] [place] [address] Mar, [facility] [id number] [address] [address] Mar, [facility] [id number], [place] [address] Feb, [facility] [id number] [address] Jan, [facility] [id number] [address] [address] Apr, [facility] [id number] [address] [address] Apr, [facility] [id number], [place] [address] Mar, [facility] [address] [id number], [place] [address] Mar, [facility] [id number] [address] [address] Feb, [facility] [id number], [place] [address] Jun, IMMUNIZATIONS No Known Immunizations SOCIAL HISTORY Never Assessed REASON FOR VISIT Controlled Med Refill PLAN OF CARE VITAL SIGNS MEDICATIONS Medication Instructions Dosage Frequency Start Date End Date Duration Status Hydrocodone-Acetaminophen 10-325 MG Orally every 4 hrs 1 tablet 4h 12 Feb, 2018 28 days Active Tramadol HCl 50 mg Orally every 6 hrs 1 tablet 6h 28 days Active RESULTS No Results PROCEDURES No Known procedures INSTRUCTIONS MEDICATIONS ADMINISTERED No Known Medications MEDICAL (GENERAL) HISTORY Type Description Date Medical History cardiovascular disease-mild mitral regurgitation, mild tricuspid regurgitation, left atrial enlargement, mild right ventricle and right atrial enlargement Medical History hypertension Medical History hyponatremia-chronic Medical History orthopedic disorder-scoliosis Medical History chronic pain Medical History peripheral vascular disease Surgical History orthopedic surgery Surgical History neuroplasty with transposition of median neerve at [place] Surgical History right hip November 2016 Hospitalization History Hospitalization for surgery only Hospitalization History Broken Hip at November 2016
--- OUTSIDE RECORDS SUMMARY | 2018-02-27 14:54 | XMS REPORT ---
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 Active 48641066 Problem Venous insufficiency I87.2 Active 33786844 Problem Hyperlipidemia E78.5 Active 55750848 Problem Peripheral vascular disease I73.9 Active 621773133 Problem Cigarette nicotine dependence without complication F17.210 Active 00135574 ALLERGIES Substance Reaction Event Type Date Status Celebrex stomach upset Drug Allergy Dec, Active Baclofen Unknown Drug Allergy Dec, Active Zocor 20 Mg Tablet Unknown Non Drug Allergy Dec, Active Neurontin 300 Mg Capsule Unknown Non Drug Allergy Dec, Active ENCOUNTERS Encounter Location Date Diagnosis [place] [id number] [place] [address] 46031- 5590 04 Feb, 2018 [facility] [id number] [place] [address] 33383- 5482 18 Jan, 2018 Tinea pedis of both feet B35.3 [place] [id number] [place] [address] 01917- 7946 13 Jan, 2018 Back pain M54.9 [facility] [address] [place] [id number] [address] 9125 Dec, Back pain M54.9 ; Hyponatremia E87.1 ; 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 ; Peripheral vascular disease I73.9 ; Cigarette nicotine dependence without complication F17.210 ; Coronary artery disease I25.10 and GERD (gastroesophageal reflux disease) K21.9 [facility] [address] [place] [id number] [place] [address] 67719- 2731 Dec, Back pain M54.9 [facility] [address] [place] [id number] [place] [address] 64702- 7610 Nov, Back pain M54.9 [facility] [address] [address]- 4203 Nov, Back pain M54.9 [place] [address] 05209- 3717 Nov, Bronchitis J40 [place] [address] 08225- 5695 Oct, Back pain M54.9 [place] [address] [place] [id number] [place] [address] 80113- 1544 Oct, 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 [place] [address] [place] [id number] [place] [address] 55724- 6580 September, 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 ; Medication monitoring encounter Z51.81 ; Back pain M54.9 ; Weakness R53.1 ; Cigarette nicotine dependence without complication F17.210 ; Coronary artery disease I25.10 and Peripheral vascular disease I73.9 [facility] [address] [place] [id number] [place] [address] 18638- 8460 September, Back pain M54.9 [facility] [address] [place] [id number] [place] [address] 93705- 5778 Aug, Back pain M54.9 [facility] [address] [place] [id number] [place] [address] 80955- 5816 Aug, [facility] [address] 44245- 9478 Aug, Back pain M54.9 [facility] [address] [id number] [place] [address] 40739- 8376 Jul, Back pain M54.9 [facility] [address] [place] [address] [id number] [place] [address] 72759 2546 Jun, [facility] [address] [id number] [place] [address] 35667- 2016 Jun, Back pain M54.9 [facility] [address] [id number] [place] [address] 22365- 9793 May, Back pain M54.9 [facility] [address] [place] [id number] [place] [address] 25564- 9770 May, Back pain M54.9 [facility] [address] [place] [id number] [place] [address] 42972- 7353 May, Hypertension I10 ; Back pain M54.9 and Cigarette nicotine dependence without complication F17.210 [facility] [address] [place] [id number] [place] [address] 28586- 8372 Apr, Back pain M54.9 [facility] [address] [id number] [place] [address] 56058 2542 Apr, Hypokalemia E87.6 [facility] [address] [place] [address] [id number] [place] [address] 00736 2540 Apr, Hypokalemia E87.6 [facility] [address] [id number] [place] [address] 09403 2542 Mar, Back pain M54.9 [facility] [address] [id number] [place] [address] 14364 2546 Mar, [facility] [address] [place] [id number] [place] [address] 27349- 2540 Mar, Back pain M54.9 ; Coronary artery disease I25.10 and Acute nasopharyngitis J00 [facility] [address] [facility] [id number] [address]- 1474 Mar, Back pain M54.9 [facility] [address] [place] [id number] [place] [address] 11955- 1506 05 Feb, 2017 Back pain M54.9 [facility] [address] [place] [address] [id number] [place] [address] 00050- 1286 26 Jan, 2017 Anemia due to blood loss D50.0 and Hypokalemia E87.6 [facility] [address] [facility] [id number] [place] [address] 42277 2546 18 Jan, 2017 [facility] [address] [facility] [id number] [place] [address] 50087- 3256 11 Jan, 2017 Hypokalemia E87.6 [facility] [address] [place] [id number] [place] [address] 71318- 1438 08 Jan, 2017 Back pain M54.9 [facility] [address] [place] [id number] [place] [address] 88822- 3783 08 Jan, 2017 [facility] [address] [place] [id number] [place] [address] 27875- 4608 14 Dec, 2016 Hypertension I10 and Back pain M54.9 [facility] [address] [place] [address] [id number] [place] [address] 20086- 5224 29 Oct, 2016 Back pain M54.9 [facility] [address] [place] [id number] [place] [address] 50069- 3236 15 Oct, 2016 Back pain M54.9 [facility] [address] [place] [address] [id number] [place] [address] 23124- 6434 07 Oct, 2016 Back pain M54.9 [facility] [address] [place] [id number] [place] [address] 13873- 1893 08 Sep, 2016 Back pain M54.9 [facility] [address] [place] [id number] [place] [address] 33632- 0960 Aug, Back pain M54.9 [facility] [address] [place] [address] 40746- 3239 Aug, Epistaxis R04.0 [facility] [address] [place] [id number] [place] [address] 96677- 0323 15 Jul, 2016 [facility] [address] [place] [id number] [place] [address] 66853- 9294 14 Jul, 2016 Back pain M54.9 [facility] [address] [place] [id number] [place] [address] 53903- 8130 Jun, Back pain M54.9 [facility] [address] [place] [id number] [place] [address] 91181- 5735 Jun, Localized edema R60.0 [facility] [address] [place] [id number] [place] [address] 80273- 7071 Jun, [facility] [address] [place] [id number] [place] [address] 16807- 3648 Jun, Anemia due to blood loss D50.0 ; Venous insufficiency I87.2 ; Hypertension I10 and Plantar fasciitis M72.2 [facility] [address] [place] [id number] [place] [address] 28833- 0173 May, Back pain M54.9 [facility] [address] [place] [address] 80460- 3023 May, [facility] [address] [place] [id number] [place] [address] 19500- 6839 May, 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 ; Anemia due to blood loss D50.0 and Venous insufficiency I87.2 [facility] [address] [place] [id number] [place] [address] 45887- 6821 May, Back pain M54.9 [facility] [address] [place] [address] 42184- 7663 May, Anemia due to blood loss D50.0 [facility] [address] [place] [id number] [place] [address] 65438- 7190 May, Localized edema R60.0 [facility] [address] 45182- 0418 May, Blood loss anemia D50.0 ; Localized edema R60.0 and Coronary artery disease I25.10 [facility] [address] 03910- 1707 Apr, Blood loss anemia D50.0 [facility] [address] 48986- 9655 Apr, Epistaxis R04.0 ; Anemia, unspecified type D64.9 and Hyponatremia E87.1 [facility] [address] 63442- 4477 Apr, [facility] [address] 84684- 4684 Apr, Back pain M54.9 [facility] [address] 01337- 5401 Apr, Back pain M54.9 [facility] [address] 14430- 3891 Mar, [facility] [address] 31298- 4809 Mar, Back pain M54.9 [facility] [address] [place] [id number] [place] [address] 71178- 6668 Feb, [facility] [address] [place] [id number] [place] [address] 31384- 9134 Feb, [facility] [address] 01928- 7125 Jan, [facility] [address] [place] [id number] [place] [address] 45480- 1454 Dec, [facility] [address] 09487- 1162 Dec, [facility] [address] [place] [address] 09221- 9539 Dec, Arthritis, 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 and Leg weakness, bilateral M62.81 [facility] [address] [place] [id number] [place] [address] 10898- 4207 Dec, [facility] [address] [place] [id number] [place] [address] 05945- 8963 Oct, Back pain M54.9 [facility] [address] [place] [id number] [place] [address] 46824- 6331 Oct, Back pain M54.9 [facility] [address] [place] [id number] [place] [address] 33402- 0458 September, Back pain M54.9 [facility] [address] [place] [id number] [place] [address] 45671- 6267 Aug, Back pain M54.9 [facility] [address] [place] [id number] [place] [address] 95929- 8874 Aug, Back pain M54.9 [facility] [address] [place] [id number] [place] [address] 91751- 3121 Jul, [facility] [address] [place] [id number] [place] [address] 60891- 2033 Jul, Back pain M54.9 [facility] [address] [place] [id number] [place] [address] 96264- 7735 Jun, [facility] [address] [place] [address] 70284- 7122 Jun, Back pain M54.9 [facility] [address] [place] [id number] [place] [address] 43966- 8060 May, 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 ; Back pain M54.9 ; Hyperlipidemia E78.5 ; Hypertension I10 and GERD (gastroesophageal reflux disease) K21.9 [facility] [address] [address]- 3546 May, Arthritis M19.90 [facility] [id number] [place] [address] 45888- 7265 Apr, [facility] [id number] [place] [address] 18287- 3134 Apr, [facility] [address] [id number] [place] [address] 68041- 2903 Mar, [facility] [address] [place] [id number] [place] [address] 98451- 3416 Mar, [facility] [id number] [place] [address] 48904- 1788 Feb, Arthritis M19.90 ; Encounter for immunization Z23 ; Contusion of right hip S70.01XA and Coronary artery disease I25.10 [facility] [address] [id number] [place] [address] 54158- 5272 Jan, [facility] [id number] [place] [address] 35231- 4936 Jan, [facility] [address] [place] [id number] [place] [address] 65344- 2926 Dec, Acute bronchitis 466.0 and Unspecified arthropathy, site unspecified 716.90 [facility] [address] [place] [id number] [place] [address] 24330- 8336 Dec, [facility] [address] [address]- 3964 Dec, [facility] [address] [place] [id number] [place] [address] 54473- 9526 Nov, [facility] [address] [place] [place] [id number] [place] [address] 66374- 4709 Nov, [facility] [address] [address]- 8677 Nov, [facility] [address] [id number] [place] [address]- 4075 Oct, [facility] [place] [facility] [address] [id number] [place] [address]- 5799 Oct, [facility] [place] [facility] [address] [facility] [id number] [place] [address]- 5565 Oct, Unspecified arthropathy, site unspecified 716.90 [facility] [place] [facility] [address] [id number], [place] [address]- 4165 Oct, [facility] [place] [facility] [address] [id number] [place] [address]- 4575 September, [facility] [place] [facility] [address] [id number] [place] [address]- 7988 September, [facility] [place] [facility] [address] [facility] [id number] [place] [address]- 4622 Aug, [facility] [place] [facility] [address] [facility] [id number], [place] [address]- 5727 Aug, [facility] [place] [facility] [address] [facility] [id number], [place] [address]- 0725 Jul, [facility] [place] [facility] [address] [facility] [id number], [place] [address]- 1425 Jul, [facility] [place] [facility] [address] [facility] [id number], [place] [address]- 6757 Jul, [facility] [place] [facility] [address] [id number], [place] [address]- 1536 Jul, [facility] [place] [facility] [address] [id number] [place] [address]- 0891 Jul, [facility] [place] [facility] [address] [id number], [place] [address]- 4227 Jul, [facility] [place] [facility] [address] [facility] [id number], [place] [address]- 9564 Jun, [facility] [place] [facility] [address] [id number] [place] [address]- 2207 Jun, [facility] [address] [id number] [place] [address]- 7538 Jun, [facility] [place] [facility] [address] [id number] [place] [address]- 3179 Jun, [facility] [address] [id number] [place] [address]- 1682 May, [facility] [place] [facility] [address] [id number] [place] [address]- 8938 May, [facility] [address] [id number] [place] [address]- 3962 May, [facility] [address] [id number] [place] [address]- 1365 May, [facility] [address] [id number] [place] [address]- 6592 May, [facility] [address] [id number] [place] [address]- 5767 May, [facility] [place] [facility] [address] [id number] [place] [address]- 2587 May, [facility] [address] [id number] [place] [address]- 3778 May, [facility] [place] [facility] [address] [id number] [place] [address]- 1500 May, [facility] [place] [facility] [address] [id number] [place] [address]- 5791 May, [facility] [place] [facility] [address] [id number] [place] [address]- 7962 May, [facility] [place] [facility] [address] [id number] [place] [address]- 8358 Apr, [facility] [place] [facility] [address] [id number] [place] [address]- 6066 Apr, [facility] [place] [facility] [address] [id number] [place] [address]- 1906 Apr, [facility] [place] [facility] [address] [id number] [place] [address]- 1266 Apr, [facility] [place] [facility] [address] [id number] [place] [address]- 1472 Apr, [facility] [place] [facility] [address] [id number] [place] [address]- 1744 Mar, [facility] [place] [facility] [address] [id number] [place] [address]- 7519 Mar, [facility] [place] [facility] [address] [id number] [place] [address]- 4956 Feb, [facility] [place] [facility] [address] [id number] [place] [address]- 7960 Feb, [facility] [place] [facility] [address] [id number] [place] [address]- 6366 Feb, [facility] [place] [facility] [address] [id number] [place] [address]- 3036 Feb, [facility] [place] [facility] [address] [id number] [place] [address]- 7559 Jan, [facility] [place] [facility] [address] [id number] [place] [address]- 1914 Jan, [facility] [place] [facility] [address] [id number], [place] [address]- 0786 Dec, [facility] [place] [facility] [address] [id number] [place] [address]- 9844 Dec, [facility] [place] [facility] [address] [id number] [place] [address]- 9998 Nov, [facility] [place] [facility] [address] [id number] [place] [address]- 7496 Nov, [facility] [place] [facility] [address] [id number], [place] [address]- 1122 Oct, [facility] [place] [facility] [address] [id number] [place] [address]- 8223 Oct, [facility] [place] [facility] [address] [id number] [place] [address]- 0197 Oct, [facility] [place] [facility] [address] [id number] [place] [address]- 1800 Oct, [facility] [place] [facility] [address] [id number] [place] [address]- 3199 Aug, [facility] [place] [facility] [address] [id number] [place] [address]- 2040 Aug, [facility] [place] [facility] [address] [id number] [place] [address]- 5136 Aug, [facility] [place] [facility] [address] [id number] [place] [address]- 1910 Aug, [facility] [place] [facility] [address] [id number] [place] [address]- 6280 May, [facility] [place] [facility] [address] [id number] [place] [address] May, [facility] [place] [facility] [address] [facility] [id number] [place] [address] May, [facility] [place] [facility] [address] [id number], [place] [address] May, [facility] [place] [facility] [address] [id number], [place] [address] May, [facility] [place] [facility] [address] [id number] [place] [address] May, [facility] [place] [facility] [address] [id number] [place] [address] May, [facility] [place] [facility] [address] [id number] [place] [address] Apr, [facility] [place] [facility] [address] [id number] [place] [address] Apr, [facility] [address] [id number] [place] [address] Apr, [facility] [place] [facility] [address] [id number] [place] [address] Apr, [facility] [place] [facility] [address] [id number] [place] [address] Apr, [facility] [place] [facility] [address] [id number] [place] [address] Apr, [facility] [place] [facility] [address] [id number] [place] [address] Apr, [facility] [place] [facility] [address] [id number] [place] [address] Apr, [facility] [place] [facility] [address] [id number] [place] [address] Apr, [facility] [place] [facility] [address] [id number] [place] [address] Apr, [facility] [place] [facility] [address] [id number] [place] [address] Mar, [facility] [place] [facility] [address] [facility] [id number] [place] [address] 27 Mar, 2013 [facility] [place] [facility] [address] [id number] [place] [address] 14 Mar, 2013 [facility] [place] [facility] [address] [id number] [place] [address] 14 Mar, 2013 [facility] [place] [facility] [address] [id number] [place] [address] Feb, [facility] [place] [facility] [address] [id number] [place] [address] Feb, [facility] [place] [facility] [address] [id number] [place] [address] Jan, [facility] [place] [facility] [address] [id number] [place] [address] Jan, [facility] [place] [facility] [address] [id number] [place] [address] Jan, [facility] [place] [facility] [address] [id number] [place] [address] Dec, [facility] [place] [facility] [address] [id number] [place] [address] Dec, [facility] [place] [facility] [address] [id number] [place] [address] Nov, [facility] [place] [facility] [address] [id number] [place] [address] Oct, [facility] [place] [facility] [address] [id number] [place] [address] Oct, [facility] [place] [facility] [address] [id number] [place] [address] Oct, [facility] [place] [facility] [address] [id number] [place] [address] September, [facility] [place] [facility] [address] [id number] [place] [address] September, [facility] [place] [facility] [address] [id number] [place] [address]- [address] Jun, [facility] [place] [facility] [address] [id number] [place] [address] Jun, [facility] [place] [facility] [address] [id number] [place] [address] Jun, [facility] [place] [facility] [address] [id number] [place] [address]- [address] Jun, [facility] [place] [facility] [address] [id number] [place] [address] May, [facility] [place] [facility] [address] [id number] [place] [address] May, [facility] [address] [id number] [place] [address] May, [facility] [address] [id number] [place] [address]- [address] May, [facility] [address] [id number] [place] [address] Apr, [facility] [address] [id number] [place] [address]- [address] Apr, [facility] [address] [id number] [place] [address]- [address] Apr, [facility] [address] [facility] [id number] [place] [address] Apr, [facility] [address] [facility] [id number] [place] [address] Apr, [facility] [address] [id number] [place] [address] Apr, [facility] [address] [facility] [id number] [place] [address] Mar, [facility] [address] [facility] [id number] [place] [address] Mar, [facility] [place] [facility] [address] [id number] [place] [address] Mar, [facility] [address] [id number] [place] [address] Mar, [facility] [place] [facility] [address] [id number] [place] [address] Feb, [facility] [place] [facility] [address] [facility] [id number] [place] [address] Feb, [facility] [place] [facility] [address] [facility] [id number] [place] [address] Feb, [facility] [place] [facility] [address] [id number] [place] [address] 11 Feb, 2012 [facility] [place] [facility] [address] [id number] [place] [address] 10 Feb, 2012 [facility] [place] [facility] [address] [id number] [place] [address] 17 Jan, 2012 [facility] [place] [facility] [address] [id number] [place] [address] 13 Jan, 2012 [facility] [place] [facility] [address] [id number] [place] [address] 12 Jan, 2012 [facility] [place] [facility] [address] [id number] [place] [address] 12 Jan, 2012 [facility] [place] [facility] [address] [id number] [place] [address] Jan, [facility] [place] [facility] [address] [id number] [place] [address] 14 Dec, 2011 [facility] [place] [facility] [address] [id number] [place] [address] Nov, [facility] [place] [facility] [address] [id number] [place] [address] Nov, [facility] [place] [facility] [address] [id number] [place] [address] Nov, [facility] [place] [facility] [address] [id number], [place] [address] Nov, [facility] [place] [facility] [address] [id number] [place] [address] Nov, [facility] [place] [facility] [address] [id number] [place] [address] 14 Oct, 2011 [facility] [place] [facility] [address] [id number] [place] [address] September, [facility] [place] [facility] [address] [id number], [place] [address] September, [facility] [address] [id number] [place] [address] Aug, [facility] [place] [facility] [address] [id number] [place] [address] Aug, [facility] [place] [facility] [address] [id number] [place] [address] Aug, [facility] [place] [facility] [address] [id number] [place] [address] 11 Aug, 2011 [facility] [address] [id number] [place] [address] 16 Jul, 2011 [facility] [place] [facility] [address] [id number] [place] [address]696 09 Jul, 2011 [facility] [address] [id number] [place] [address]6 10 Jun, 2011 [facility] [place] [facility] [address] [id number] [place] [address] 07 Jun, 2011 [facility] [address] [facility] [id number] [place] [address] 06 Jun, 2011 [facility] [address] [facility] [id number] [place] [address] 39[address] Jun, [facility] [address] [id number] [place] [address] May, [facility] [place] [facility] [address] [id number] [place] [address] May, [facility] [place] [facility] [address] [id number] [place] [address] May, [facility] [place] [facility] [address] [id number] [place] [address] May, [facility] [place] [facility] [address] [facility] [id number] [place] [address] May, [facility] [place] [facility] [address] [id number] [place] [address] 39[address] May, [facility] [address] [id number] [place] [address] Apr, [facility] [place] [facility] [address] [id number] [place] [address] Apr, [facility] [place] [facility] [address] [id number] [place] [address] Apr, [facility] [address] [id number] [place] [address] Apr, [facility] [place] [facility] [address] [id number] [place] [address] Apr, [facility] [address] [id number] [place] [address] Apr, [facility] [address] [id number] [place] [address] Apr, [facility] [address] [id number] [place] [address] 280[address] Apr, [facility] [address] [id number] [place] [address] Mar, [facility] [place] [facility] [address] [id number] [place] [address] Mar, [facility] [place] [facility] [address] [id number] [place] [address] Mar, [facility] [place] [facility] [address] [id number] [place] [address] 488[address] September, [facility] [place] [facility] [address] [id number] [place] [address] September, [facility] [place] [facility] [address] [id number] [place] [address] 29[address] Jul, [facility] [place] [facility] [address] [id number], [place] [address] Jun, [facility] [id number], [place] [address] Apr, [facility] [address] [facility] [id number], [place] [address] Apr, [facility] [id number], [place] [address] Apr, [facility] [address] [facility] [id number], [place] [address] Mar, [facility] [address] [facility] [id number], [place] [address] Mar, [facility] [address] [id number], [place] [address] Mar, [facility] [id number], [place] [address] Feb, [facility] [id number], [place] [address] Jan, [facility] [id number], [place] [address] Apr, [facility] [id number], [place] [address] Apr, [facility] [id number], [place] [address] 44[address] Mar, [facility] [id number], [place] [address] 7[address] Mar, [facility] [address] [id number], [place] [address] Feb, [facility] [id number] [address] [address] Jun, IMMUNIZATIONS No Known Immunizations SOCIAL HISTORY Never Assessed REASON FOR VISIT Pain management (chronic), F/u for foot. Reports was instructed it was a form of gout. The medication prescribed doesn't seem to be doing much. CBrumbackRN PLAN OF CARE Activity Details Follow Up 3 Months Reason: VITAL SIGNS Height 68 in 2018-01-02 Weight 126.3 lbs 2018-01-02 Temperature 97.9 degrees Fahrenheit 2018-01-02 Heart Rate 88 bpm 2018-01-02 Respiratory Rate 20 2018-01-02 BMI 19.20 kg/m2 2018-01-02 Blood pressure systolic 118 mmHg 2018-01-02 Blood pressure diastolic 66 mmHg 2018-01-02 MEDICATIONS Medication Instructions Dosage Frequency Start Date End Date Duration Status Lasix 40 mg Orally Once a day 1 tablet 24h May, 30 day(s) Active Reglan 10 mg TAKE ONE TABLET BY MOUTH TWICE A DAY 45 Active Flonase 50 MCG/DOSE Nasally Once a day 2 spray in each nostril 24h Active Aspir-Low 81 MG Orally Once a day 1 tablet 24h Active Cyclobenzaprine HCl 10 mg Orally Three times a day 1 tablet as needed 8h 90 days Active Lisinopril 10 TAKE ONE TABLET BY MOUTH DAILY 90 Active Plavix 75 TAKE ONE TABLET BY MOUTH DAILY 90 Active Pravastatin Sodium 40 TAKE ONE TABLET BY MOUTH AT BEDTIME, AVOID GRAPEFRUIT OR GRAPEFRUIT JUICE 90 Active Klor-Con 10 10 meq Orally Once a day 1 tablet with food 24h Active Prevacid 30 mg TAKE ONE CAPSULE BY MOUTH TWICE A DAY 30 Active Tramadol HCl 50 mg Orally every 6 hrs 1 tablet 6h 28 days Active Allopurinol 100 mg Orally Once a day 1 tablet 24h Oct, Jan, 30 day(s) Active Norvasc 5 TAKE ONE TABLET BY MOUTH DAILY 30 Active Hydrocodone-Acetaminophen 10-325 MG Orally every 4 hrs 1 tablet 4h Dec, 28 days Active RESULTS No Results PROCEDURES Procedure Date Ordered Result Body Site LAB NOT BILLED BY [facility] Jan 02, 2018 [facility] VISIT ESTABLISHED PATIENT Jan 02, 2018 INSTRUCTIONS MEDICATIONS ADMINISTERED No Known Medications MEDICAL [...]
--- OUTSIDE RECORDS SUMMARY | 2018-02-27 14:54 | XMS REPORT ---
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 Active 39125897 Problem Venous insufficiency I87.2 Active 73988126 Problem Hyperlipidemia E78.5 Active 24130975 Problem Peripheral vascular disease I73.9 Active 682531405 Problem Cigarette nicotine dependence without complication F17.210 Active 60703569 ALLERGIES No Information ENCOUNTERS Encounter Location Date Diagnosis [facility] [place] [id number] [place] [address] 74239- 6201 04 Feb, 2018 [place] [id number] [place] [address] 39713- 3793 18 Jan, 2018 Tinea pedis of both feet B35.3 [place] [id number] [place] [address] 49489- 1179 13 Jan, 2018 Back pain M54.9 [place] [address] 99171- 3503 Dec, Back pain M54.9 ; Hyponatremia E87.1 ; 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 ; Peripheral vascular disease I73.9 ; Cigarette nicotine dependence without complication F17.210 ; Coronary artery disease I25.10 and GERD (gastroesophageal reflux disease) K21.9 [place] [id number] [place] [address] 38587- 2493 Dec, Back pain M54.9 [facility] [place] [id number] [place] [address] 86369- 7872 Nov, Back pain M54.9 [facility] [place] [id number] [place] [address] 31089- 2358 Nov, Back pain M54.9 [facility] [place] [id number] [place] [address] 24146- 8853 Nov, Bronchitis J40 [facility] [place] [id number] [place] [address] 61695- 0782 Oct, Back pain M54.9 [place] [id number] [place] [address] 43651- 7364 Oct, 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 [place] [id number] [place] [address] 18492- 7168 September, terminologist current use of opiate analgesic Z79.891 ; Medication monitoring encounter Z51.81 ; Back pain M54.9 ; Weakness R53.1 ; Cigarette nicotine dependence without complication F17.210 ; Coronary artery disease I25.10 and Peripheral vascular disease I73.9 [facility] [place] [id number] [place] [address] 59372- 5194 September, Back pain M54.9 [facility] [place] [id number] [place] [address] 91170- 8994 Aug, Back pain M54.9 [facility] [place] [id number] [place] [address] 60121- 4339 Aug, [facility] [place] [id number] [place] [address] 75952- 2581 Aug, Back pain M54.9 [facility] [place] [id number] [place] [address] 43283- 3890 Jul, Back pain M54.9 [facility] [place] [id number] [place] [address] 49607- 8705 Jun, [facility] [place] [address] 50012- 9719 Jun, Back pain M54.9 [facility] [place] [id number] [place] [address] 26561 2546 May, Back pain M54.9 [facility] [place] [address] 13956 2541 May, Back pain M54.9 [facility] [place] [address] 18718- 7678 May, Hypertension I10 ; Back pain M54.9 and Cigarette nicotine dependence without complication F17.210 [facility] [place] [id number] [place] [address] 73197- 2021 Apr, Back pain M54.9 [facility] [place] [id number] [place] [address] 01864 2544 Apr, Hypokalemia E87.6 [facility] [place] [address] 50611- 2422 Apr, Hypokalemia E87.6 [facility] [place] [id number] [place] [address] 75074- 2547 Mar, Back pain M54.9 [facility] [place] [id number] [place] [address] 50553- 9834 Mar, [facility] [place] [id number] [place] [address] 45430- 2541 Mar, Back pain M54.9 ; Coronary artery disease I25.10 and Acute nasopharyngitis J00 [facility] [place] [id number] [place] [address] 59435- 2542 Mar, Back pain M54.9 [facility] [place] [id number] [place] [address] 73632- 9540 05 Feb, 2017 Back pain M54.9 [facility] [place] [id number] [place] [address] 86452- 2652 26 Jan, 2017 Anemia due to blood loss D50.0 and Hypokalemia E87.6 [facility] [place] [id number] [place] [address] 73249- 9149 18 Jan, 2017 [facility] [place] [id number] [place] [address] 89523- 9138 11 Jan, 2017 Hypokalemia E87.6 [facility] [place] [id number] [place] [address] 44698- 1086 08 Jan, 2017 Back pain M54.9 [facility] [place] [id number] [place] [address] 35798- 9694 08 Jan, 2017 [facility] [place] [id number] [place] [address] 15479- 4670 14 Dec, 2016 Hypertension I10 and Back pain M54.9 [facility] [place] [id number] [place] [address] 44852- 4570 29 Oct, 2016 Back pain M54.9 [facility] [place] [id number] [place] [address] 36840- 6237 15 Oct, 2016 Back pain M54.9 [facility] [place] [id number] [place] [address] 63520- 9416 07 Oct, 2016 Back pain M54.9 [facility] [place] [id number] [place] [address] 18798- 9066 September, Back pain M54.9 [facility] [place] [id number] [place] [address] 00759- 8814 Aug, Back pain M54.9 [facility] [place] [id number] [place] [address] 88647- 3375 Aug, Epistaxis R04.0 [facility] [place] [id number] [place] [address] 42491- 1035 Jul, [facility] [place] [id number] [place] [address] 26980- 5507 Jul, Back pain M54.9 [facility] [place] [id number] [place] [address] 80475- 3584 Jun, Back pain M54.9 [facility] [place] [id number] [place] [address] 13154- 7372 Jun, Localized edema R60.0 [facility] [place] [id number] [place] [address] 72315- 4196 Jun, [facility] [place] [id number] [place] [address] 63747- 7172 Jun, Anemia due to blood loss D50.0 ; Venous insufficiency I87.2 ; Hypertension I10 and Plantar fasciitis M72.2 [facility] [place] [id number] [place] [address] 62792- 3545 May, Back pain M54.9 [facility] [place] [id number] [place] [address] 88393- 7922 May, [facility] [place] [id number] [place] [address] 54381- 4900 May, terminologist use of drug Z79.899 ; Anemia due to blood loss D50.0 and Venous insufficiency I87.2 [facility] [place] [id number] [place] [address] 84842- 3351 May, Back pain M54.9 [facility] [place] [id number] [place] [address] 54369- 8676 May, Anemia due to blood loss D50.0 [facility] [place] [id number] [place] [address] 28547- 7232 May, Localized edema R60.0 [facility] [place] [id number] [place] [address] 25043- 4057 May, Blood loss anemia D50.0 ; Localized edema R60.0 and Coronary artery disease I25.10 [facility] [place] [id number] [place] [address] 51898- 4740 Apr, Blood loss anemia D50.0 [facility] [place] [id number] [place] [address] 62464- 0735 Apr, Epistaxis R04.0 ; Anemia, unspecified type D64.9 and Hyponatremia E87.1 [facility] [place] [id number] [place] [address] 37229- 6270 Apr, [facility] [place] [address] 45712- 5916 Apr, Back pain M54.9 [facility] [place] [id number] [place] [address] 55502- 8529 Apr, Back pain M54.9 [facility] [place] [address] 86379- 9283 Mar, [facility] [place] [id number] [place] [address] 13970- 6897 Mar, Back pain M54.9 [facility] [place] [id number] [place] [address] 85666- 3167 Feb, [facility] [place] [id number] [place] [address] 31595- 0007 Feb, [facility] [place] [id number] [place] [address] 35374- 5231 Jan, [facility] [place] [id number] [place] [address] 16886- 1535 Dec, [facility] [place] [id number] [place] [address] 13989- 3261 Dec, [facility] [place] [id number] [place] [address] 28090- 6202 Dec, Arthritis, 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 and Leg weakness, bilateral M62.81 [facility] [place] [id number] [place] [address] 98612- 2450 Dec, [facility] [place] [id number] [place] [address] 61036- 4156 Oct, Back pain M54.9 [facility] [place] [id number] [place] [address] 23029- 0721 Oct, Back pain M54.9 [facility] [place] [address] 38474- 9192 September, Back pain M54.9 [facility] [place] [address] 24762- 7710 Aug, Back pain M54.9 [facility] [place] [id number] [place] [address] 28539- 3571 Aug, Back pain M54.9 [facility] [place] [id number] [place] [address] 67528- 0393 Jul, [facility] [place] [id number] [place] [address] 80797- 6204 07 Jul, 2015 Back pain M54.9 [facility] [place] [id number] [place] [address] 79440- 4891 16 Jun, 2015 [facility] [place] [id number] [place] [address] 16340- 8430 03 Jun, 2015 Back pain M54.9 [facility] [place] [id number] [place] [address] 72137- 0403 15 May, 2015 terminologist use of drug Z79.899 ; Back pain M54.9 ; Hyperlipidemia E78.5 ; Hypertension I10 and GERD (gastroesophageal reflux disease) K21.9 [facility] [place] [id number] [place] [address] 41100- 0182 13 May, 2015 Arthritis M19.90 [facility] [place] [id number] [place] [address] 43361- 0502 Apr, [facility] [place] [address] [place] [address] 79904- 5314 Apr, [facility] [place] [id number] [place] [address] 66374- 2504 Mar, [facility] [place] [id number] [place] [address] 66350- 9877 Mar, [facility] [place] [id number] [place] [address] 96440- 7255 Feb, Arthritis M19.90 ; Encounter for immunization Z23 ; Contusion of right hip S70.01XA and Coronary artery disease I25.10 [facility] [place] [id number] [place] [address] 40402- 4774 Jan, [facility] [place] [id number] [place] [address] 34216- 4775 Jan, [facility] [place] [id number] [place] [address] 23811- 7670 Dec, Acute bronchitis 466.0 and Unspecified arthropathy, site unspecified 716.90 [facility] [place] [id number] [place] [address] 27930- 0910 Dec, [facility] [place] [id number] [place] [address] 21970- 4079 Dec, [facility] [place] [id number] [place] [address] 68826- 0225 Nov, [facility] [place] [id number] [place] [address] 91003- 3999 Nov, [facility] [place] [id number] [place] [address] 899292- 7082 Nov, [facility] [place] [address] [id number] [address]- 2723 Oct, [facility] [place] [id number] [place] [address] 87251- 5457 Oct, [facility] [address] [id number] [place] [address]- 6547 Oct, Unspecified arthropathy, site unspecified 716.90 [facility] [address] [id number] [place] [address]- 6609 Oct, [facility] [address] [facility] [id number] [place] [address]- 1211 September, [facility] [address] [id number] [place] [address]- 3971 September, [facility] [address] [facility] [id number] [place] [address]- 0293 Aug, [facility] [address] [facility] [id number] [place] [address]- 7146 Aug, [facility] [address] [facility] [id number] [address]- 7081 Jul, [facility] [address] [facility] [id number] [place] [address]- 5896 Jul, [facility] [address] [facility] [id number] [address]- 6104 Jul, [facility] [address] [facility] [id number] [address]- 5741 Jul, [facility] [place] [facility] [address] [facility] [id number] [address]- 7608 Jul, [facility] [place] [facility] [address] [facility] [id number] [address]- 7182 Jul, [facility] [place] [facility] [address] [facility] [id number] [address]- 5727 Jun, [facility] [place] [facility] [address] [facility] [id number] [address]- 5676 Jun, [facility] [place] [facility] [address] [facility] [id number] [address]- 2321 Jun, [facility] [place] [facility] [address] [id number] [place] [address]- 6420 Jun, [facility] [place] [facility] [address] [id number] [place] [address]- 7821 May, [facility] [place] [facility] [address] [id number] [place] [address]- 8159 May, [facility] [place] [facility] [address] [id number] [place] [address]- 4594 May, [facility] [place] [facility] [address] [id number] [place] [address]- 6358 May, [facility] [place] [facility] [address] [id number] [place] [address]- 0402 May, [facility] [place] [facility] [address] [id number] [place] [address]- 4198 May, [facility] [place] [facility] [address] [id number] [place] [address]- 3603 May, [facility] [place] [facility] [address] [id number] [place] [address]- 8189 May, [facility] [place] [facility] [address] [id number] [place] [address]- 4100 May, [facility] [place] [facility] [address] [id number] [place] [address]- 6834 May, [facility] [place] [facility] [address] [id number] [place] [address]- 7185 May, [facility] [place] [facility] [address] [id number] [place] [address]- 2091 Apr, [facility] [place] [facility] [address] [id number] [place] [address]- 1582 Apr, [facility] [place] [facility] [address] [id number] [place] [address]- 0674 Apr, [facility] [place] [facility] [address] [id number] [place] [address]- 3336 Apr, [facility] [place] [facility] [address] [id number] [place] [address]- 3246 Apr, [facility] [place] [facility] [address] [id number] [place] [address]- 6580 Mar, [facility] [place] [facility] [address] [id number] [place] [address]- 3626 Mar, [facility] [place] [facility] [address] [id number] [place] [address]- 4656 Feb, [facility] [place] [facility] [address] [id number] [place] [address]- 8385 Feb, [facility] [place] [facility] [address] [id number] [place] [address]- 6026 Feb, [facility] [place] [facility] [address] [id number] [place] [address]- 6401 Feb, [facility] [place] [facility] [address] [id number] [place] [address]- 7938 Jan, [facility] [place] [facility] [address] [id number] [place] [address]- 7172 Jan, [facility] [place] [facility] [address] [id number] [place] [address]- 7688 Dec, [facility] [place] [facility] [address] [id number] [place] [address]- 0530 Dec, [facility] [place] [facility] [address] [id number] [address]- 5172 Nov, [facility] [place] [facility] [address] [id number] [place] [address]- 1181 Nov, [facility] [place] [facility] [address] [id number] [place] [address]- 6741 Oct, [facility] [place] [facility] [address] [id number] [place] [address]- 3310 Oct, [facility] [place] [facility] [address] [id number] [place] [address]- [address] Oct, [facility] [address] [id number] [place] [address]- 4681 Oct, [facility] [address] [id number] [place] [address]- 0739 Aug, [facility] [address] [id number] [place] [address]- 3895 Aug, [facility] [address] [id number] [place] [address]- 6546 Aug, [facility] [address] [id number] [place] [address]- 1314 Aug, [facility] [address] [id number] [place] [address]- 8877 May, [facility] [address] [id number] [place] [address]- 9074 May, [facility] [address] [id number] [place] [address]- [address] May, [facility] [address] [id number] [place] [address]- 0646 May, [facility] [address] [id number] [place] [address]- 0587 May, [facility] [address] [id number] [place] [address]- 7595 May, [facility] [address] [id number] [place] [address]- 2964 May, [facility] [place] [facility] [address] [id number] [place] [address]- 7772 Apr, [facility] [place] [facility] [address] [id number] [place] [address]- 0581 Apr, [facility] [address] [id number] [place] [address] Apr, [facility] [address] [id number] [place] [address] Apr, [facility] [place] [facility] [address] [id number] [place] [address] Apr, [facility] [place] [facility] [address] [id number] [place] [address] Apr, [facility] [place] [facility] [address] [id number] [place] [address] Apr, [facility] [place] [facility] [address] [id number] [place] [address] Apr, [facility] [place] [facility] [address] [id number] [place] [address] Apr, [facility] [place] [facility] [address] [id number] [place] [address] Apr, [facility] [place] [facility] [address] [id number] [address] Mar, [facility] [place] [facility] [address] [id number] [place] [address] Mar, [facility] [place] [facility] [address] [facility] [id number] [address] Mar, [facility] [place] [facility] [address] [id number] [address] Mar, [facility] [place] [facility] [address] [id number] [place] [address] Feb, [facility] [place] [facility] [address] [id number] [address] Feb, [facility] [place] [facility] [address] [id number] [address] 25 Jan, 2013 [facility] [place] [facility] [address] [id number] [address] 23 Jan, 2013 [facility] [place] [facility] [address] [id number] [address] Jan, [facility] [address] [id number] [place] [address] Dec, [facility] [place] [facility] [address] [id number] [place] [address] Dec, [facility] [address] [id number] [place] [address] Nov, [facility] [place] [facility] [address] [id number] [place] [address] Oct, [facility] [address] [id number] [place] [address] Oct, [facility] [address] [id number] [place] [address] Oct, [facility] [address] [id number] [place] [address] September, [facility] [place] [facility] [address] [id number] [place] [address] September, [facility] [address] [id number] [place] [address] Jun, [facility] [address] [id number] [place] [address] Jun, [facility] [address] [id number] [place] [address] Jun, [facility] [place] [facility] [address] [id number] [place] [address] Jun, [facility] [place] [facility] [address] [id number] [place] [address] May, [facility] [place] [facility] [address] [id number] [place] [address] May, [facility] [place] [facility] [address] [id number] [place] [address] May, [facility] [place] [facility] [address] [id number] [place] [address] May, [facility] [place] [facility] [address] [id number] [place] [address] Apr, [facility] [place] [facility] [address] [id number] [place] [address] Apr, [facility] [place] [facility] [address] [id number] [place] [address] Apr, [facility] [place] [facility] [address] [id number] [place] [address] Apr, [facility] [place] [facility] [address] [id number] [place] [address] Apr, [facility] [place] [facility] [address] [id number] [place] [address] Apr, [facility] [place] [facility] [address] [id number] [place] [address] Mar, [facility] [place] [facility] [address] [id number] [place] [address] Mar, [facility] [place] [facility] [address] [id number] [place] [address] Mar, [facility] [place] [facility] [address] [id number] [place] [address] Mar, [facility] [place] [facility] [address] [id number] [place] [address] Feb, [facility] [place] [facility] [address] [id number] [place] [address] Feb, [facility] [place] [facility] [address] [id number] [place] [address] Feb, [facility] [place] [facility] [address] [id number] [place] [address] Feb, [facility] [place] [facility] [address] [id number] [place] [address] 10 Feb, 2012 [facility] [place] [facility] [address] [id number] [place] [address] 17 Jan, 2012 [facility] [place] [facility] [address] [id number] [place] [address] 13 Jan, 2012 [facility] [place] [facility] [address] [id number] [place] [address] 12 Jan, 2012 [facility] [place] [facility] [address] [id number] [place] [address] 12 Jan, 2012 [facility] [place] [facility] [address] [id number] [place] [address] 11 Jan, 2012 [facility] [place] [facility] [address] [id number] [place] [address] 14 Dec, 2011 [facility] [place] [facility] [address] [id number] [place] [address] 17 Nov, 2011 [facility] [place] [facility] [address] [id number] [place] [address] Nov, [facility] [place] [facility] [address] [id number] [place] [address] Nov, [facility] [place] [facility] [address] [id number] [place] [address] Nov, [facility] [place] [facility] [address] [id number] [place] [address] 3596 Nov, [facility] [place] [facility] [address] [id number] [address] 14 Oct, 2011 [facility] [place] [facility] [address] [id number] [place] [address] 1760 16 Sep, 2011 [facility] [place] [facility] [address] [id number] [place] [address] September, [facility] [place] [facility] [address] [id number] [place] [address]164 13 Aug, 2011 [facility] [place] [facility] [address] [id number] [place] [address]- [address]83 12 Aug, 2011 [facility] [address] [id number] [place] [address] Aug, [facility] [place] [facility] [address] [id number] [place] [address] 2546 11 Aug, 2011 [facility] [address] [id number] [place] [address]- 8836 16 Jul, 2011 [facility] [place] [facility] [address] [id number] [place] [address]- 8077 09 Jul, 2011 [facility] [place] [facility] [address] [id number] [place] [address] 3476 10 Jun, 2011 [facility] [place] [facility] [address] [id number] [place] [address] 07 Jun, 2011 [facility] [place] [facility] [address] [id number] [place] [address] 06 Jun, 2011 [facility] [address] [id number] [place] [address]61 Jun, [facility] [place] [facility] [address] [id number] [place] [address] May, [facility] [place] [facility] [address] [facility] [id number] [place] [address] May, [facility] [place] [facility] [address] [id number] [place] [address] 15[address] May, [facility] [place] [facility] [address] [id number] [place] [address] 2547 May, [facility] [place] [facility] [address] [id number] [place] [address] May, [facility] [place] [facility] [address] [id number] [place] [address]26 May, [facility] [place] [facility] [address] [id number] [place] [address] Apr, [facility] [place] [facility] [address] [id number] [place] [address]459 24 Apr, 2011 [facility] [place] [facility] [address] [id number] [place] [address]990 Apr, [facility] [place] [facility] [address] [id number] [place] [address] 9426 Apr, [facility] [place] [facility] [address] [id number] [place] [address] 3574 Apr, [facility] [place] [facility] [address] [id number] [place] [address]- 1260 16 Apr, 2011 [facility] [place] [facility] [address] [id number] [place] [address] 7771 Apr, [facility] [place] [facility] [address] [id number] [place] [address]- 7290 Apr, [facility] [place] [facility] [address] [id number] [place] [address] 4567 Mar, [facility] [place] [facility] [address] [id number] [place] [address] 8688 Mar, [facility] [place] [facility] [address] [id number] [place] [address] 1845 Mar, [facility] [place] [facility] [address] [id number] [place] [address] 0639 September, [facility] [place] [facility] [address] [id number] [address] September, [facility] [place] [facility] [address] [id number] [place] [address]45 Jul, [facility] [place] [facility] [address] [id number] [place] [address]- 2698 10 Jun, 2010 [facility] [place] [facility] [address] [id number] [place] [address] 2010 [facility] [place] [facility] [id number] [address] Apr, [facility] [place] [id number] [address] Apr, [facility] [place] [id number] [address] Mar, [facility] [place] [id number] [address] Mar, [facility] [place] [id number] [address] Mar, [facility] [place] [id number] [place] [address] Feb, [facility] [place] [id number] [place] [address]- [address] Jan, [facility] [place] [id number] [place] [address]- 2090 Apr, [facility] [place] [id number] [address] Apr, [facility] [place] [id number] [place] [address]- [address]127 Mar, [facility] [place] [id number] [address] Mar, [facility] [place] [id number] [address] Feb, [facility] [place] [id number] [address] Jun, IMMUNIZATIONS No Known Immunizations SOCIAL HISTORY Never Assessed REASON FOR VISIT Controlled Med Refill 01/27 PLAN OF CARE VITAL SIGNS MEDICATIONS Medication Instructions Dosage Frequency Start Date End Date Duration Status Tramadol HCl 50 mg Orally every 6 hrs 1 tablet 6h 28 days Active Hydrocodone-Acetaminophen 10-325 MG Orally every 4 hrs 1 tablet 4h 14 Jan, 2018 28 days Active RESULTS No Results PROCEDURES [...]
--- OUTSIDE RECORDS SUMMARY | 2018-02-27 14:55 | XMS REPORT ---
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 Active 89879857 Problem Venous insufficiency I87.2 Active 26386694 Problem Hyperlipidemia E78.5 Active 84704022 Problem Peripheral vascular disease I73.9 Active 754775615 Problem Cigarette nicotine dependence without complication F17.210 Active 25672214 ALLERGIES No Information ENCOUNTERS Encounter Location Date Diagnosis [place] [id number] [place] [address] 97835- 3167 Dec, Back pain M54.9 ; Hyponatremia E87.1 ; 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 ; Peripheral vascular disease I73.9 ; Cigarette nicotine dependence without complication F17.210 ; Coronary artery disease I25.10 and GERD (gastroesophageal reflux disease) K21.9 [facility] [id number] [place] [address] 13484- 6857 16 Dec, 2017 Back pain M54.9 [facility] [id number] [place] [address] 21085- 7836 Nov, Back pain M54.9 [facility] [id number] [place] [address] 62368- 6235 17 Nov, 2017 Back pain M54.9 [place] [address] [id number] [place] [address] 59065- 1034 Nov, Bronchitis J40 [facility] [id number] [place] [address] 23477- 6200 Oct, Back pain M54.9 [facility] [id number] [place] [address] 12661- 2643 Oct, 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 [facility] [id number] [place] [address] 68405- 8291 September, 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 ; Medication monitoring encounter Z51.81 ; Back pain M54.9 ; Weakness R53.1 ; Cigarette nicotine dependence without complication F17.210 ; Coronary artery disease I25.10 and Peripheral vascular disease I73.9 [facility] [id number] [place] [address] 85403- 1125 September, Back pain M54.9 [facility] [id number] [place] [address] 60577- 7633 Aug, Back pain M54.9 [facility] [id number] [place] [address] 72120- 8779 Aug, [facility] [id number] [place] [address] 25397- 4329 Aug, Back pain M54.9 [facility] [id number] [place] [address] 26621- 8803 Jul, Back pain M54.9 [facility] [id number] [place] [address] 06693- 9376 Jun, [facility] [id number] [place] [address] 88790- 0964 Jun, Back pain M54.9 [facility] [id number] [place] [address] 28345- 2546 May, Back pain M54.9 [facility] [id number] [place] [address] 97932- 2378 May, Back pain M54.9 [facility] [address] 69659- 8882 May, Hypertension I10 ; Back pain M54.9 and Cigarette nicotine dependence without complication F17.210 [facility] [address] 05541- 3342 Apr, Back pain M54.9 [facility] [address] 40246- 9642 Apr, Hypokalemia E87.6 [place] [address] 04349- 8827 Apr, Hypokalemia E87.6 [place] [address] 58921- 0074 Mar, Back pain M54.9 [facility] [address] 12103- 9775 Mar, [facility] [address] 50359- 2945 Mar, Back pain M54.9 ; Coronary artery disease I25.10 and Acute nasopharyngitis J00 [facility] [id number] [place] [address] 09391- 6814 Mar, Back pain M54.9 [facility] [id number] [place] [address] 49870- 9772 Feb, Back pain M54.9 [facility] [address] 99188- 6863 Jan, Anemia due to blood loss D50.0 and Hypokalemia E87.6 [facility] [id number] [place] [address] 53962- 4454 Jan, [facility] [address] [place] [address]- 3850 11 Jan, 2017 Hypokalemia E87.6 [facility] [id number] [place] [address] 87507- 7056 08 Jan, 2017 Back pain M54.9 [facility] [id number] [place] [address] 17775- 4316 08 Jan, 2017 [facility] [id number] [place] [address] 79685- 1418 14 Dec, 2016 Hypertension I10 and Back pain M54.9 [facility] [id number] [place] [address] 97796- 0820 29 Oct, 2016 Back pain M54.9 [facility] [id number] [place] [address] 89353- 4945 15 Oct, 2016 Back pain M54.9 [facility] [id number] [place] [address] 50889- 2430 07 Oct, 2016 Back pain M54.9 [facility] [id number] [place] [address] 23657- 7590 08 Sep, 2016 Back pain M54.9 [facility] [id number] [place] [address] 73516- 9963 12 Aug, 2016 Back pain M54.9 [facility] [id number] [place] [address] 83287- 5046 11 Aug, 2016 Epistaxis R04.0 [facility] [id number] [place] [address] 94561- 8508 15 Jul, 2016 [facility] [id number] [place] [address] 00523- 0015 14 Jul, 2016 Back pain M54.9 [facility] [id number] [place] [address] 77604- 5206 15 Jun, 2016 Back pain M54.9 [facility] [id number] [place] [address] 02709- 4728 Jun, Localized edema R60.0 [place] [id number] [place] [address] 07220- 7198 Jun, [place] [address] 44824- 2814 Jun, Anemia due to blood loss D50.0 ; Venous insufficiency I87.2 ; Hypertension I10 and Plantar fasciitis M72.2 [place] [address] [place] [id number] [place] [address] 24990- 6413 May, Back pain M54.9 [place] [address] 65959- 1222 May, [place] [address] [place] [id number] [place] [address] 21306- 1894 May, prison use of drug Z79.899 ; Anemia due to blood loss D50.0 and Venous insufficiency I87.2 [place] [address] [place] [id number] [place] [address] 98644- 3502 May, Back pain M54.9 [place] [address] [id number] [place] [address] 41447- 3201 May, Anemia due to blood loss D50.0 [place] [address] [place] [id number] [place] [address] 46829- 7238 May, Localized edema R60.0 [place] [address] [place] [id number] [place] [address] 49500- 3634 May, Blood loss anemia D50.0 ; Localized edema R60.0 and Coronary artery disease I25.10 [place] [address] [place] [id number] [place] [address] 65674- 2640 Apr, Blood loss anemia D50.0 [place] [address] [place] [id number] [place] [address] 67940- 1355 Apr, Epistaxis R04.0 ; Anemia, unspecified type D64.9 and Hyponatremia E87.1 [facility] [address] [facility] [id number] [address]- 0602 Apr, [facility] [address] [facility] [id number] [place] [address] 51590- 2966 Apr, Back pain M54.9 [facility] [address] [facility] [id number] [place] [address] 81786 2546 Apr, Back pain M54.9 [facility] [address] [facility] [id number] [place] [address] 05541- 7893 Mar, [facility] [address] [facility] [id number] [place] [address] 19916- 6464 Mar, Back pain M54.9 [facility] [address] [facility] [id number] [place] [address] 47338- 3166 Feb, [facility] [id number] [place] [address] 12321- 5271 Feb, [facility] [address] [facility] [id number] [place] [address] 01189- 9732 Jan, [facility] [address] [id number] [place] [address] 64400- 5460 Dec, [facility] [address] [facility] [id number] [place] [address] 13717- 4776 Dec, [facility] [id number] [place] [address] 40808- 9068 Dec, Arthritis, 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 and Leg weakness, bilateral M62.81 [facility] [address] [facility] [id number] [place] [address] 09324- 8976 Dec, [facility] [address] [facility] [id number] [place] [address] 13989- 7550 Oct, Back pain M54.9 [facility] [address] [id number] [place] [address] 68841 2546 Oct, Back pain M54.9 [facility] [address] [address]- 8481 September, Back pain M54.9 [facility] [id number] [place] [address] 49431- 6346 Aug, Back pain M54.9 [facility] [address] [address]- 4546 06 Aug, 2015 Back pain M54.9 [facility] [id number] [place] [address] 81816- 1106 14 Jul, 2015 [facility] [id number] [place] [address] 73850- 2431 Jul, Back pain M54.9 [facility] [id number] [place] [address] 99383- 2156 16 Jun, 2015 [facility] [id number] [place] [address] 39260- 9821 03 Jun, 2015 Back pain M54.9 [facility] [address] [address]- 4019 15 May, 2015 prison use of drug Z79.899 ; Back pain M54.9 ; Hyperlipidemia E78.5 ; Hypertension I10 and GERD (gastroesophageal reflux disease) K21.9 [facility] [address] [address]- 5980 May, Arthritis M19.90 [facility] [address] [address]- 6774 16 Apr, 2015 [facility] [address] [address]- 0406 Apr, [facility] [id number] [place] [address] 40867- 1327 Mar, [facility] [address] [address]- 8594 Mar, [facility] [id number] [address]- 3562 Feb, Arthritis M19.90 ; Encounter for immunization Z23 ; Contusion of right hip S70.01XA and Coronary artery disease I25.10 [facility] [address] [address]- 7950 Jan, [facility] [id number] [address]- 3567 Jan, [facility] [id number] [place] [address] 44940- 8632 Dec, Acute bronchitis 466.0 and Unspecified arthropathy, site unspecified 716.90 [facility] [id number] [address]- 0617 Dec, [facility] [id number] [address]- 3164 Dec, [facility] [id number] [address]- 2525 Nov, [facility] [address] [address]- 3134 Nov, [facility] [address], [place] [address]- 6615 Nov, [facility] [address], [place] [address]- 9737 Oct, [facility] [address], [place] [address]- 5989 Oct, [facility] [address], [place] [address]- 8016 Oct, Unspecified arthropathy, site unspecified 716.90 [facility] [address] 6492 Oct, [facility] [address], [place] [address]- 6285 September, [facility] [place] [facility] [address] [id number] [place] [address]- 8211 September, [facility] [place] [facility] [address] [id number] [place] [address]- 8774 Aug, [facility] [place] [facility] [address] [id number] [place] [address]- 4206 Aug, [facility] [place] [facility] [address] [id number] [place] [address]- 4449 Jul, [facility] [place] [facility] [address] [id number] [place] [address]- 3406 Jul, [facility] [place] [facility] [address] [id number] [place] [address]- 9597 Jul, [facility] [place] [facility] [address] [facility] [id number] [place] [address]- 5942 Jul, [facility] [place] [facility] [address] [id number] [place] [address]- 4775 Jul, [facility] [place] [facility] [address] [id number] [place] [address]- 2376 Jul, [facility] [place] [facility] [address] [id number] [place] [address]- 8856 Jun, [facility] [place] [facility] [address] [id number] [place] [address]- 6439 Jun, [facility] [place] [facility] [address] [id number], [place] [address]- 8366 Jun, [facility] [place] [facility] [address] [id number] [place] [address]- 8891 Jun, [facility] [place] [facility] [address] [id number] [place] [address]- 3866 May, [facility] [place] [facility] [address] [id number] [place] [address]- 9916 May, [facility] [place] [facility] [address] [id number], [place] [address]- 0556 May, [facility] [place] [facility] [address] [id number] [place] [address]- 3445 May, [facility] [place] [facility] [address] [id number] [place] [address]- 2637 May, [facility] [place] [facility] [address] [id number] [place] [address]- 0546 May, [facility] [place] [facility] [address] [id number] [place] [address]- 9159 May, [facility] [place] [facility] [address] [id number] [place] [address]- 8565 May, [facility] [place] [facility] [address] [id number] [place] [address]- 0147 May, [facility] [place] [facility] [address] [id number] [place] [address]- 4124 May, [facility] [place] [facility] [address] [id number] [place] [address]- 5162 May, [facility] [place] [facility] [address] [id number] [place] [address]- 4835 Apr, [facility] [place] [facility] [address] [id number] [place] [address]- 0043 Apr, [facility] [place] [facility] [address] [id number] [place] [address]- 3783 Apr, [facility] [place] [facility] [address] [id number] [place] [address]- 4716 Apr, [facility] [place] [facility] [address] [id number] [place] [address]- 6618 Apr, [facility] [place] [facility] [address] [id number] [place] [address]- 5489 Mar, [facility] [place] [facility] [address] [id number] [place] [address]- 3300 Mar, [facility] [place] [facility] [address] [id number] [place] [address]- 2444 Feb, [facility] [place] [facility] [address] [id number] [place] [address]- 2258 Feb, [facility] [place] [facility] [address] [id number] [place] [address]- 7836 Feb, [facility] [place] [facility] [address] [id number] [place] [address]- 5087 Feb, [facility] [place] [facility] [address] [id number] [place] [address]- 6057 Jan, [facility] [place] [facility] [address] [id number] [place] [address]- 4349 Jan, [facility] [place] [facility] [address] [id number] [place] [address]- 9745 Dec, [facility] [place] [facility] [address] [id number] [place] [address]- 1530 Dec, [facility] [place] [facility] [address] [id number] [place] [address]- 6426 Nov, [facility] [place] [facility] [address] [id number] [place] [address]- 1121 Nov, [facility] [place] [facility] [address] [id number] [place] [address]- 1005 Oct, [facility] [place] [facility] [address] [id number] [place] [address]- 5450 Oct, [facility] [place] [facility] [address] [id number] [place] [address]- 5877 Oct, [facility] [place] [facility] [address] [id number] [place] [address]- 7218 Oct, [facility] [place] [facility] [address] [id number] [place] [address]- 6238 Aug, [facility] [place] [facility] [address] [id number] [place] [address]- 7255 Aug, [facility] [address] [id number] [place] [address]- 0628 Aug, [facility] [place] [facility] [address] [id number] [place] [address]- 9267 Aug, [facility] [place] [facility] [address] [id number] [place] [address]- 6002 May, [facility] [place] [facility] [address] [id number] [place] [address]- 6943 May, [facility] [place] [facility] [address] [id number] [place] [address]- 6260 May, [facility] [place] [facility] [address] [id number] [place] [address]- 2479 May, [facility] [place] [facility] [address] [id number] [place] [address]- 1408 May, [facility] [place] [facility] [address] [id number] [place] [address]- 3117 May, [facility] [place] [facility] [address] [id number] [place] [address]- 2414 May, [facility] [place] [facility] [address] [id number], [place] [address]- 4096 Apr, [facility] [place] [facility] [address] [id number], [place] [address]- 0276 Apr, [facility] [place] [facility] [address] [id number], [place] [address]- 4793 Apr, [facility] [place] [facility] [address] [id number] [place] [address]- 4555 Apr, [facility] [place] [facility] [address] [id number], [place] [address] Apr, [facility] [place] [facility] [address] [id number] [place] [address] Apr, [facility] [place] [facility] [address] [id number] [place] [address] 05 Apr, 2013 [facility] [address] [id number] [place] [address] 05 Apr, 2013 [facility] [place] [facility] [address] [id number] [place] [address] Apr, [facility] [place] [facility] [address] [id number] [place] [address] Apr, [facility] [place] [facility] [address] [id number] [place] [address] Mar, [facility] [place] [facility] [address] [id number] [place] [address] Mar, [facility] [place] [facility] [address] [id number] [place] [address] Mar, [facility] [place] [facility] [address] [id number] [place] [address] Mar, [facility] [place] [facility] [address] [id number] [place] [address] Feb, [facility] [place] [facility] [address] [id number] [place] [address] Feb, [facility] [place] [facility] [address] [facility] [id number] [place] [address] Jan, [facility] [place] [facility] [address] [id number] [place] [address] Jan, [facility] [place] [facility] [address] [id number] [place] [address] Jan, [facility] [place] [facility] [address] [id number] [place] [address] Dec, [facility] [place] [facility] [address] [id number] [place] [address] Dec, [facility] [place] [facility] [address] [facility] [id number] [place] [address] Nov, [facility] [place] [facility] [address] [id number] [place] [address] Oct, [facility] [place] [facility] [address] [id number] [place] [address] Oct, [facility] [place] [facility] [address] [id number] [place] [address] Oct, [facility] [place] [facility] [address] [id number] [place] [address] September, [facility] [place] [facility] [address] [id number] [place] [address] September, [facility] [place] [facility] [address] [id number] [place] [address] Jun, [facility] [place] [facility] [address] [id number] [place] [address] Jun, [facility] [place] [facility] [address] [id number] [place] [address]- [address] Jun, [facility] [place] [facility] [address] [id number] [place] [address] Jun, [facility] [place] [facility] [address] [id number] [place] [address] May, [facility] [place] [facility] [address] [id number] [place] [address] May, [facility] [place] [facility] [address] [id number] [place] [address]- 1367 May, [facility] [place] [facility] [address] [id number] [place] [address]- [address] May, [facility] [place] [facility] [address] [id number] [place] [address]- [address] Apr, [facility] [place] [facility] [address] [id number] [place] [address] Apr, [facility] [place] [facility] [address] [id number], [place] [address] Apr, [facility] [place] [facility] [address] [id number] [place] [address] 3817 Apr, [facility] [place] [facility] [address] [id number], [place] [address] Apr, [facility] [place] [facility] [address] [facility] [id number] [place] [address] Apr, [facility] [place] [facility] [address] [id number], [place] [address] Mar, [facility] [place] [facility] [address] [id number] [place] [address] Mar, [facility] [place] [facility] [address] [id number] [place] [address] Mar, [facility] [place] [facility] [address] [facility] [id number], [place] [address]- [address] Mar, [facility] [place] [facility] [address] [id number] [place] [address]68 Feb, [facility] [place] [facility] [address] [id number], [place] [address] Feb, [facility] [place] [facility] [address] [facility] [id number], [place] [address]- [address] Feb, [facility] [place] [facility] [address] [id number], [place] [address] Feb, [facility] [place] [facility] [address] [facility] [id number], [place] [address]- [address] 10 Feb, 2012 [facility] [place] [facility] [address] [id number], [place] [address] 17 Sep2011 [facility] [place] [facility] [address] [id number] [place] [address] 13 Sep2011 [facility] [place] [facility] [address] [facility] [id number] [place] [address]- [address] 12 Sep2011 [facility] [place] [facility] [address] [id number] [place] [address]- [address] 12 Jan, 2012 [facility] [address] [id number] [place] [address]- 18[address] 11 Jan, 2012 [facility] [place] [facility] [address] [id number] [place] [address]- [address]296 14 Dec, 2011 [facility] [place] [facility] [address] [address] [id number] [place] [address] 17 Nov, 2011 [facility] [place] [facility] [address] [id number] [place] [address] Nov, [facility] [place] [facility] [address] [id number] [place] [address] Nov, [facility] [place] [facility] [address] [id number] [place] [address] Nov, [facility] [place] [facility] [address] [id number] [place] [address] Nov, [facility] [address] [id number] [place] [address] Oct, [facility] [place] [facility] [address] [id number] [place] [address] September, [facility] [place] [facility] [address] [id number] [place] [address] September, [facility] [place] [facility] [address] [id number] [place] [address] Aug, [facility] [place] [facility] [address] [id number] [place] [address] Aug, [facility] [place] [facility] [address] [id number] [place] [address] Aug, [facility] [place] [facility] [address] [id number] [place] [address] Aug, [facility] [place] [facility] [address] [id number] [place] [address] Jul, [facility] [place] [facility] [address] [id number] [place] [address] Jul, [facility] [place] [facility] [address] [id number] [place] [address] Jun, [facility] [place] [facility] [address] [id number] [place] [address] Jun, [facility] [place] [facility] [address] [id number] [place] [address] Jun, [facility] [place] [facility] [address] [id number] [place] [address] Jun, [facility] [place] [facility] [address] [id number] [place] [address] May, [facility] [place] [facility] [address] [id number] [place] [address] May, [facility] [place] [facility] [address] [id number] [place] [address] May, [facility] [place] [facility] [address] [id number] [place] [address] May, [facility] [place] [facility] [address] [id number] [place] [address] May, [facility] [place] [facility] [address] [id number] [place] [address] May, [facility] [place] [facility] [address] [id number] [place] [address] Apr, [facility] [place] [facility] [address] [id number] [place] [address] Apr, [facility] [place] [facility] [address] [id number] [place] [address] Apr, [facility] [place] [facility] [address] [id number] [place] [address] Apr, [facility] [place] [facility] [address] [id number] [place] [address] 20 Apr, 2011 [facility] [address] [id number] [place] [address] 16 Apr, 2011 [facility] [address] [id number] [place] [address] 16 Apr, 2011 [facility] [address] [id number] [place] [address] Apr, [facility] [address] [id number] [place] [address] Mar, [facility] [address] [id number] [place] [address] Mar, [facility] [address] [id number] [place] [address] Mar, [facility] [address] [id number] [place] [address] September, [facility] [address] [id number] [place] [address] September, [facility] [address] [id number] [place] [address] Jul, [facility] [address] [id number] [place] [address] 10 Jun, 2010 [facility] [address] [id number] [place] [address] Apr, [facility] [address] [id number] [place] [address] Apr, [facility] [place] [facility] [address] [id number] [place] [address] Apr, [facility] [place] [facility] [address] [id number] [place] [address] Mar, [facility] [address] [id number] [place] [address] Mar, [facility] [address] [id number] [address] Mar, [facility] [address] [id number], [place] [address] Feb, [facility] [address] [id number], [place] [address] Jan, [facility] [id number] [place] [address] Apr, [facility] [id number] [place] [address] Apr, [facility] [id number], [place] [address] Mar, [facility] [id number] [place] [address] Mar, [facility] [address] [id number], [place] [address] Feb, [facility] [address] [id number], [place] [address] Jun, IMMUNIZATIONS No Known Immunizations SOCIAL HISTORY Never Assessed REASON FOR VISIT Tramadol and Hydrocodone due 12/02 PLAN OF CARE VITAL SIGNS MEDICATIONS Medication Instructions Dosage Frequency Start Date End Date Duration Status Hydrocodone-Acetaminophen 10-325 MG Orally every 4 hrs 1 tablet 4h Nov, 28 days Active Tramadol HCl 50 mg [...]
--- OUTSIDE RECORDS SUMMARY | 2018-02-27 14:55 | XMS REPORT ---
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 Active 31011046 Problem Venous insufficiency I87.2 Active 39608211 Problem Hyperlipidemia E78.5 Active 14051472 Problem Peripheral vascular disease I73.9 Active 578349018 Problem Cigarette nicotine dependence without complication F17.210 Active 74286340 ALLERGIES No Information ENCOUNTERS Encounter Location Date Diagnosis [facility] [id number] [place] [address] 38702- 6732 04 Feb, 2018 [facility] [id number] [place] [address] 27384- 7602 18 Jan, 2018 Tinea pedis of both feet B35.3 [facility] [id number] [place] [address] 29972- 1651 13 Jan, 2018 Back pain M54.9 [facility] [id number] [place] [address] 74864- 5113 Dec, Back pain M54.9 ; Hyponatremia E87.1 ; 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 ; Peripheral vascular disease I73.9 ; Cigarette nicotine dependence without complication F17.210 ; Coronary artery disease I25.10 and GERD (gastroesophageal reflux disease) K21.9 [facility] [id number] [place] [address] 13200- 4395 Dec, Back pain M54.9 [facility] [id number] [place] [address] 31919- 5272 Nov, Back pain M54.9 [facility] [id number] [place] [address] 31054- 4017 Nov, Back pain M54.9 [facility] [id number] [place] [address] 46837- 8258 Nov, Bronchitis J40 [facility] [id number] [place] [address] 15081- 2439 Oct, Back pain M54.9 [facility] [id number] [place] [address] 42886- 6237 Oct, 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 [facility] [id number] [place] [address] 45765- 2062 September, director long term care current use of opiate analgesic Z79.891 ; Medication monitoring encounter Z51.81 ; Back pain M54.9 ; Weakness R53.1 ; Cigarette nicotine dependence without complication F17.210 ; Coronary artery disease I25.10 and Peripheral vascular disease I73.9 [facility] [id number] [place] [address] 59616- 5361 September, Back pain M54.9 [facility] [id number] [place] [address] 52094- 4176 Aug, Back pain M54.9 [facility] [id number] [place] [address] 47772- 8279 Aug, [facility] [id number] [place] [address] 59224- 2031 Aug, Back pain M54.9 [facility] [id number] [place] [address] 58360- 0900 Jul, Back pain M54.9 [facility] [id number] [place] [address] 63678- 4194 Jun, [facility] [address] 29901- 1533 Jun, Back pain M54.9 [facility] [id number] [place] [address] 04210 2546 May, Back pain M54.9 [facility] [address] 63472 2544 May, Back pain M54.9 [facility] [address] 22393- 1347 May, Hypertension I10 ; Back pain M54.9 and Cigarette nicotine dependence without complication F17.210 [facility] [id number] [place] [address] 78502- 5078 Apr, Back pain M54.9 [facility] [id number] [place] [address] 80635 2544 Apr, Hypokalemia E87.6 [facility] [address] 60759- 6643 Apr, Hypokalemia E87.6 [facility] [id number] [place] [address] 44616- 2547 Mar, Back pain M54.9 [facility] [id number] [place] [address] 92529- 0060 Mar, [facility] [id number] [place] [address] 15616- 2545 Mar, Back pain M54.9 ; Coronary artery disease I25.10 and Acute nasopharyngitis J00 [facility] [id number] [place] [address] 44945- 2540 Mar, Back pain M54.9 [facility] [id number] [place] [address] 48312- 2799 05 Feb, 2017 Back pain M54.9 [facility] [id number] [place] [address] 07706- 3081 26 Jan, 2017 Anemia due to blood loss D50.0 and Hypokalemia E87.6 [facility] [id number] [place] [address] 79729- 7367 18 Jan, 2017 [facility] [id number] [place] [address] 99482- 6585 11 Jan, 2017 Hypokalemia E87.6 [facility] [id number] [place] [address] 00834- 0749 08 Jan, 2017 Back pain M54.9 [facility] [id number] [place] [address] 69746- 8236 08 Jan, 2017 [facility] [id number] [place] [address] 32293- 5402 14 Dec, 2016 Hypertension I10 and Back pain M54.9 [facility] [id number] [place] [address] 56768- 8310 29 Oct, 2016 Back pain M54.9 [facility] [id number] [place] [address] 73350- 2982 15 Oct, 2016 Back pain M54.9 [facility] [id number] [place] [address] 17754- 0319 07 Oct, 2016 Back pain M54.9 [facility] [id number] [place] [address] 57724- 4490 September, Back pain M54.9 [facility] [id number] [place] [address] 85690- 0807 Aug, Back pain M54.9 [facility] [id number] [place] [address] 91870- 0503 Aug, Epistaxis R04.0 [facility] [id number] [place] [address] 08274- 1357 Jul, [facility] [address] [place] [address] 50663- 4090 Jul, Back pain M54.9 [facility] [id number] [place] [address] 34217- 5761 Jun, Back pain M54.9 [facility] [id number] [place] [address] 99017- 2988 Jun, Localized edema R60.0 [facility] [id number] [place] [address] 28019- 9948 Jun, [facility] [id number] [place] [address] 49816- 7575 Jun, Anemia due to blood loss D50.0 ; Venous insufficiency I87.2 ; Hypertension I10 and Plantar fasciitis M72.2 [facility] [id number] [place] [address] 54626- 9103 May, Back pain M54.9 [facility] [id number] [place] [address] 92963- 1123 May, [facility] [id number] [place] [address] 86072- 1903 May, director long term care use of drug Z79.899 ; Anemia due to blood loss D50.0 and Venous insufficiency I87.2 [facility] [address] [place] [address] 85125- 6495 May, Back pain M54.9 [facility] [id number] [place] [address] 68586- 2268 May, Anemia due to blood loss D50.0 [facility] [id number] [place] [address] 00577- 3367 May, Localized edema R60.0 [facility] [address] [place] [address] 06880- 5481 May, Blood loss anemia D50.0 ; Localized edema R60.0 and Coronary artery disease I25.10 [facility] [id number] [place] [address] 64844- 8675 Apr, Blood loss anemia D50.0 [facility] [id number] [place] [address] 11588- 6441 Apr, Epistaxis R04.0 ; Anemia, unspecified type D64.9 and Hyponatremia E87.1 [facility] [id number] [place] [address] 45771- 9809 Apr, [facility] [address] 99596- 0588 Apr, Back pain M54.9 [facility] [id number] [place] [address] 27633- 5985 Apr, Back pain M54.9 [facility] [address] 60427- 0377 Mar, [facility] [id number] [place] [address] 39578- 0317 Mar, Back pain M54.9 [facility] [id number] [place] [address] 44701- 6136 Feb, [facility] [id number] [place] [address] 40450- 8956 Feb, [facility] [id number] [place] [address] 06513- 8034 Jan, [facility] [id number] [place] [address] 90880- 5536 Dec, [facility] [id number] [place] [address] 28991- 1741 Dec, [facility] [id number] [place] [address] 74492- 1819 Dec, Arthritis, 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 and Leg weakness, bilateral M62.81 [facility] [id number] [place] [address] 69620- 1094 Dec, [facility] [id number] [place] [address] 70768- 6113 Oct, Back pain M54.9 [facility] [id number] [place] [address] 87604- 1780 Oct, Back pain M54.9 [facility] [address] 56116- 3082 September, Back pain M54.9 [facility] [address] 19011- 2681 Aug, Back pain M54.9 [facility] [id number] [place] [address] 87977- 8067 Aug, Back pain M54.9 [facility] [id number] [place] [address] 77063- 4883 Jul, [facility] [id number] [place] [address] 32761- 7592 07 Jul, 2015 Back pain M54.9 [facility] [id number] [place] [address] 45285- 1020 16 Jun, 2015 [facility] [id number] [place] [address] 47630- 5905 03 Jun, 2015 Back pain M54.9 [facility] [id number] [place] [address] 96749- 8784 15 May, 2015 director long term care use of drug Z79.899 ; Back pain M54.9 ; Hyperlipidemia E78.5 ; Hypertension I10 and GERD (gastroesophageal reflux disease) K21.9 [facility] [id number] [place] [address] 63026- 4297 13 May, 2015 Arthritis M19.90 [facility] [id number] [place] [address] 92400- 0052 Apr, [facility] [address] [place] [address] 17337- 5117 Apr, [facility] [id number] [place] [address] 61854- 4403 Mar, [facility] [id number] [place] [address] 86531- 0892 Mar, [facility] [id number] [place] [address] 00359- 6875 Feb, Arthritis M19.90 ; Encounter for immunization Z23 ; Contusion of right hip S70.01XA and Coronary artery disease I25.10 [facility] [id number] [place] [address] 33384- 8596 Jan, [facility] [id number] [place] [address] 29850- 0387 Jan, [facility] [id number] [place] [address] 25016- 8856 Dec, Acute bronchitis 466.0 and Unspecified arthropathy, site unspecified 716.90 [facility] [id number] [place] [address] 23486- 6653 Dec, [facility] [id number] [place] [address] 71025- 1028 Dec, [facility] [id number] [place] [address] 85173- 1608 Nov, [facility] [address] [place] [address] 65884- 2608 Nov, [facility] [id number] [place] [address] 242817- 8936 Nov, [facility] [id number] [address]- 8314 Oct, [facility] [id number] [place] [address] 43769- 8266 Oct, [facility] [address] [id number] [place] [address]- 0984 Oct, Unspecified arthropathy, site unspecified 716.90 [facility] [address] [id number] [place] [address]- 3070 Oct, [facility] [address] [facility] [id number] [place] [address]- 1054 September, [facility] [address] [id number] [place] [address]- 8827 September, [facility] [address] [facility] [id number] [place] [address]- 6286 Aug, [facility] [address] [facility] [id number] [place] [address]- 9932 Aug, [facility] [address] [facility] [id number] [address]- 6362 Jul, [facility] [address] [facility] [id number] [place] [address]- 1782 Jul, [facility] [address] [facility] [id number][place] [address]- 7089 Jul, [facility] [address] [facility] [id number][place] [address]- 4094 Jul, [facility] [place] [facility] [address] [facility] [id number][place] [address]- 6914 Jul, [facility] [place] [facility] [address] [facility] [id number] [address]- 0013 Jul, [facility] [place] [facility] [address] [facility] [id number], [place] [address]- 8933 Jun, [facility] [place] [facility] [address] [facility] [id number], [place] [address]- 1366 Jun, [facility] [place] [facility] [address] [facility] [id number], [place] [address]- 2470 Jun, [facility] [place] [facility] [address] [id number] [place] [address]- 7088 Jun, [facility] [place] [facility] [address] [id number] [place] [address]- 6561 May, [facility] [place] [facility] [address] [id number] [place] [address]- 0062 May, [facility] [place] [facility] [address] [id number] [place] [address]- 3977 May, [facility] [place] [facility] [address] [id number] [place] [address]- 9879 May, [facility] [place] [facility] [address] [id number] [place] [address]- 1899 May, [facility] [place] [facility] [address] [id number] [place] [address]- 8690 May, [facility] [place] [facility] [address] [id number] [place] [address]- 7640 May, [facility] [place] [facility] [address] [id number] [place] [address]- 7859 May, [facility] [place] [facility] [address] [id number] [place] [address]- 8278 May, [facility] [place] [facility] [address] [id number] [place] [address]- 3222 May, [facility] [place] [facility] [address] [id number] [place] [address]- 5823 May, [facility] [place] [facility] [address] [id number] [place] [address]- 1137 Apr, [facility] [place] [facility] [address] [id number] [place] [address]- 3221 Apr, [facility] [place] [facility] [address] [id number] [place] [address]- 7517 Apr, [facility] [place] [facility] [address] [id number] [place] [address]- 3676 Apr, [facility] [place] [facility] [address] [id number] [place] [address]- 9207 Apr, [facility] [place] [facility] [address] [id number] [place] [address]- 8884 Mar, [facility] [place] [facility] [address] [id number] [place] [address]- 2564 Mar, [facility] [place] [facility] [address] [id number] [place] [address]- 0246 Feb, [facility] [place] [facility] [address] [id number] [place] [address]- 2018 Feb, [facility] [place] [facility] [address] [id number] [place] [address]- 5631 Feb, [facility] [place] [facility] [address] [id number] [place] [address]- 6089 Feb, [facility] [place] [facility] [address] [id number] [place] [address]- 3497 Jan, [facility] [place] [facility] [address] [id number] [place] [address]- 0851 Jan, [facility] [place] [facility] [address] [id number] [place] [address]- 0572 Dec, [facility] [place] [facility] [address] [id number] [place] [address]- 7213 Dec, [facility] [place] [facility] [address] [id number] [address]- 5931 Nov, [facility] [place] [facility] [address] [id number] [place] [address]- 9816 Nov, [facility] [place] [facility] [address] [id number] [place] [address]- 3304 Oct, [facility] [place] [facility] [address] [id number] [place] [address]- 3031 Oct, [facility] [place] [facility] [address] [id number] [place] [address]- 2019 Oct, [facility] [address] [id number] [place] [address]- 1703 Oct, [facility] [address] [id number] [place] [address]- 4625 Aug, [facility] [address] [id number] [place] [address]- 3603 Aug, [facility] [address] [id number] [place] [address]- 0085 Aug, [facility] [address] [id number] [place] [address]- 0499 Aug, [facility] [address] [id number] [place] [address]- 4689 May, [facility] [address] [id number] [place] [address]- 2601 May, [facility] [address] [id number] [place] [address]- 6744 May, [facility] [address] [id number] [place] [address]- 3445 May, [facility] [address] [id number] [place] [address]- 0860 May, [facility] [address] [id number] [place] [address]- 8023 May, [facility] [address] [id number] [place] [address]- 0544 May, [facility] [place] [facility] [address] [id number] [place] [address]- 8226 Apr, [facility] [place] [facility] [address] [id number] [place] [address]- 7011 Apr, [facility] [address] [id number] [place] [address]- 7416 Apr, [facility] [address] [id number] [place] [address]- 2861 Apr, [facility] [place] [facility] [address] [id number] [place] [address]- 7383 Apr, [facility] [place] [facility] [address] [id number] [place] [address]- 0266 Apr, [facility] [place] [facility] [address] [id number] [place] [address]- 0476 Apr, [facility] [place] [facility] [address] [id number] [place] [address]- 9986 Apr, [facility] [place] [facility] [address] [id number] [place] [address]- 6496 Apr, [facility] [place] [facility] [address] [id number] [place] [address]- 9572 Apr, [facility] [place] [facility] [address] [id number], [place] [address]- 3903 Mar, [facility] [place] [facility] [address] [id number] [place] [address]- 0424 Mar, [facility] [place] [facility] [address] [facility] [id number][place] [address]- 9503 Mar, [facility] [place] [facility] [address] [id number][place] [address]- 3145 Mar, [facility] [place] [facility] [address] [id number], [place] [address] Feb, [facility] [place] [facility] [address] [id number], [place] [address] Feb, [facility] [place] [facility] [address] [id number][place] [address] 25 Jan, 2013 [facility] [place] [facility] [address] [id number], [place] [address] 23 Jan, 2013 [facility] [place] [facility] [address] [id number], [place] [address] Jan, [facility] [address] [id number] [place] [address] Dec, [facility] [place] [facility] [address] [id number] [place] [address] Dec, [facility] [address] [id number] [place] [address] Nov, [facility] [place] [facility] [address] [id number] [place] [address] Oct, [facility] [address] [id number] [place] [address] Oct, [facility] [address] [id number] [place] [address] Oct, [facility] [address] [id number] [place] [address] September, [facility] [place] [facility] [address] [id number] [place] [address] September, [facility] [address] [id number] [place] [address] Jun, [facility] [address] [id number] [place] [address] Jun, [facility] [address] [id number] [place] [address] Jun, [facility] [place] [facility] [address] [id number] [place] [address]- [address] Jun, [facility] [place] [facility] [address] [id number] [place] [address] May, [facility] [place] [facility] [address] [id number] [place] [address] May, [facility] [place] [facility] [address] [id number], [place] [address] May, [facility] [place] [facility] [address] [id number] [place] [address] May, [facility] [place] [facility] [address] [id number] [place] [address] Apr, [facility] [place] [facility] [address] [id number] [place] [address]- [address] Apr, [facility] [place] [facility] [address] [id number] [place] [address] Apr, [facility] [place] [facility] [address] [id number] [place] [address]- [address] Apr, [facility] [place] [facility] [address] [id number] [place] [address] Apr, [facility] [place] [facility] [address] [id number] [place] [address] Apr, [facility] [place] [facility] [address] [id number] [place] [address] Mar, [facility] [place] [facility] [address] [id number] [place] [address] Mar, [facility] [place] [facility] [address] [id number] [place] [address] Mar, [facility] [place] [facility] [address] [id number] [place] [address] Mar, [facility] [place] [facility] [address] [id number] [place] [address] Feb, [facility] [place] [facility] [address] [id number] [place] [address] Feb, [facility] [place] [facility] [address] [id number] [place] [address] Feb, [facility] [place] [facility] [address] [id number] [place] [address] Feb, [facility] [place] [facility] [address] [id number] [place] [address]- [address] 10 Feb, 2012 [facility] [place] [facility] [address] [id number] [place] [address] 17 Jan, 2012 [facility] [place] [facility] [address] [id number] [place] [address]- [address] 13 Jan, 2012 [facility] [place] [facility] [address] [id number] [place] [address]- [address] 12 Jan, 2012 [facility] [place] [facility] [address] [id number] [place] [address]- [address] 12 Jan, 2012 [facility] [place] [facility] [address] [id number] [place] [address]- [address] 11 Jan, 2012 [facility] [place] [facility] [address] [id number] [place] [address]- [address] 14 Dec, 2011 [facility] [place] [facility] [address] [id number] [place] [address] 17 Nov, 2011 [facility] [place] [facility] [address] [id number] [place] [address] Nov, [facility] [place] [facility] [address] [id number] [place] [address] Nov, [facility] [place] [facility] [address] [id number] [place] [address]- [address] Nov, [facility] [place] [facility] [address] [id number] [place] [address] Nov, [facility] [place] [facility] [address] [id number] [address] 14 Oct, 2011 [facility] [place] [facility] [address] [id number] [place] [address] 16 Sep, 2011 [facility] [place] [facility] [address] [id number] [place] [address] September, [facility] [place] [facility] [address] [id number] [place] [address] 13 Aug, 2011 [facility] [place] [facility] [address] [id number] [place] [address] 12 Aug, 2011 [facility] [address] [id number] [place] [address] Aug, [facility] [place] [facility] [address] [id number] [place] [address] 11 Aug, 2011 [facility] [address] [id number] [place] [address] 16 Jul, 2011 [facility] [place] [facility] [address] [id number] [place] [address] 09 Jul, 2011 [facility] [place] [facility] [address] [id number] [place] [address] 10 Jun, 2011 [facility] [place] [facility] [address] [id number] [place] [address] 07 Jun, 2011 [facility] [place] [facility] [address] [id number] [place] [address] 06 Jun, 2011 [facility] [address] [id number] [place] [address] Jun, [facility] [place] [facility] [address] [id number] [place] [address] May, [facility] [place] [facility] [address] [facility] [id number] [place] [address] May, [facility] [place] [facility] [address] [id number] [place] [address] May, [facility] [place] [facility] [address] [id number] [place] [address] May, [facility] [place] [facility] [address] [id number] [place] [address] May, [facility] [place] [facility] [address] [id number] [place] [address] May, [facility] [place] [facility] [address] [id number] [place] [address] Apr, [facility] [place] [facility] [address] [id number] [place] [address] 24 Apr, 2011 [facility] [place] [facility] [address] [id number] [place] [address] Apr, [facility] [place] [facility] [address] [id number] [place] [address] Apr, [facility] [place] [facility] [address] [id number] [place] [address] Apr, [facility] [place] [facility] [address] [id number] [place] [address] 16 Apr, 2011 [facility] [place] [facility] [address] [id number] [place] [address]- [address] Apr, [facility] [place] [facility] [address] [id number] [place] [address] Apr, [facility] [place] [facility] [address] [id number] [place] [address] Mar, [facility] [place] [facility] [address] [id number] [place] [address] Mar, [facility] [place] [facility] [address] [id number] [place] [address] Mar, [facility] [place] [facility] [address] [id number] [place] [address] September, [facility] [place] [facility] [address] [id number], [place] [address] September, [facility] [place] [facility] [address] [id number] [place] [address]- [address] Jul, [facility] [place] [facility] [address] [id number] [place] [address] 10 Jun, 2010 [facility] [place] [facility] [address] [id number] [place] [address] 2010 [facility] [place] [facility] [id number] [address] Apr, [facility] [id number] [address] Apr, [facility] [id number] [address] Mar, [facility] [id number] [address] Mar, [facility] [id number] [address] Mar, [facility] [id number] [place] [address]- [address] Feb, [facility] [id number] [place] [address] Jan, [facility] [id number] [place] [address]- [address] Apr, [facility] [id number] [address] Apr, [facility] [id number] [place] [address]- [address] Mar, [facility] [id number], [place] [address] Mar, [facility] [id number] [address] Feb, [facility] [id number] [address] Jun, IMMUNIZATIONS No Known Immunizations SOCIAL HISTORY Never Assessed REASON FOR VISIT Controlled Med Refill 12/30 PLAN OF CARE VITAL SIGNS MEDICATIONS Medication [...]
--- OUTSIDE RECORDS SUMMARY | 2018-02-27 14:56 | XMS REPORT ---
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 Active 72733411 Problem Venous insufficiency I87.2 Active 44875707 Problem Hyperlipidemia E78.5 Active 53131971 Problem Peripheral vascular disease I73.9 Active 875471458 Problem Cigarette nicotine dependence without complication F17.210 Active 60176031 ALLERGIES No Information ENCOUNTERS Encounter Location Date Diagnosis [place] [id number] [place] [address] 62630- 1151 Dec, Back pain M54.9 ; Hyponatremia E87.1 ; 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 ; Peripheral vascular disease I73.9 ; Cigarette nicotine dependence without complication F17.210 ; Coronary artery disease I25.10 and GERD (gastroesophageal reflux disease) K21.9 [facility] [id number] [place] [address] 32147- 1265 16 Dec, 2017 Back pain M54.9 [facility] [address] [place] [id number] [place] [address] 48868- 2245 Nov, Back pain M54.9 [facility] [id number] [place] [address] 97647- 3885 17 Nov, 2017 Back pain M54.9 [place] [address] [place] [id number] [place] [address] 53427- 4017 Nov, Bronchitis J40 [facility] [address] [place] [id number] [place] [address] 69272- 4335 Oct, Back pain M54.9 [facility] [address] [place] [address] [id number] [place] [address] 63589- 4529 Oct, 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 [facility] [address] [place] [id number] [place] [address] 28451- 4268 September, 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 ; Medication monitoring encounter Z51.81 ; Back pain M54.9 ; Weakness R53.1 ; Cigarette nicotine dependence without complication F17.210 ; Coronary artery disease I25.10 and Peripheral vascular disease I73.9 [facility] [address] [place] [id number] [place] [address] 71115- 9791 September, Back pain M54.9 [facility] [address] [place] [address] [id number] [place] [address] 47143- 7411 Aug, Back pain M54.9 [facility] [address] [place] [address] [id number] [place] [address] 88900- 2399 Aug, [facility] [address] [place] [address] [id number] [place] [address] 38610- 2432 Aug, Back pain M54.9 [facility] [address] [place] [address] [id number] [place] [address] 00580- 1850 Jul, Back pain M54.9 [facility] [address] [place] [id number] [place] [address] 76711- 1596 Jun, [facility] [address] [place] [address] [id number] [place] [address] 56825- 2264 Jun, Back pain M54.9 [facility] [address] [place] [id number] [place] [address] 35247- 2546 May, Back pain M54.9 [facility] [address] [place] [id number] [place] [address] 35033- 3543 May, Back pain M54.9 [facility] [address] 72915- 0350 May, Hypertension I10 ; Back pain M54.9 and Cigarette nicotine dependence without complication F17.210 [facility] [address] 04853- 0498 Apr, Back pain M54.9 [facility] [address] 55704- 4254 Apr, Hypokalemia E87.6 [place] [address] 07690- 8995 Apr, Hypokalemia E87.6 [place] [address] 47296- 8110 Mar, Back pain M54.9 [facility] [address] 03178- 1585 Mar, [facility] [address] 68884- 5958 Mar, Back pain M54.9 ; Coronary artery disease I25.10 and Acute nasopharyngitis J00 [facility] [address] [place] [id number] [place] [address] 45933- 1783 Mar, Back pain M54.9 [facility] [address] [place] [id number] [place] [address] 90383- 3281 Feb, Back pain M54.9 [facility] [address] 25080- 0507 Jan, Anemia due to blood loss D50.0 and Hypokalemia E87.6 [facility] [address] [place] [id number] [place] [address] 34853- 9520 Jan, [facility] [address] [place] [address]- 2207 11 Jan, 2017 Hypokalemia E87.6 [facility] [address] [place] [id number] [place] [address] 90844- 9092 08 Jan, 2017 Back pain M54.9 [facility] [address] [place] [id number] [place] [address] 88530- 6386 08 Jan, 2017 [facility] [address] [place] [id number] [place] [address] 14987- 2091 14 Dec, 2016 Hypertension I10 and Back pain M54.9 [facility] [address] [place] [id number] [place] [address] 27242- 0924 29 Oct, 2016 Back pain M54.9 [facility] [address] [place] [id number] [place] [address] 79353- 2084 15 Oct, 2016 Back pain M54.9 [facility] [address] [place] [id number] [place] [address] 30907- 2130 07 Oct, 2016 Back pain M54.9 [facility] [address] [place] [id number] [place] [address] 64792- 6273 08 Sep, 2016 Back pain M54.9 [facility] [address] [place] [id number] [place] [address] 04076- 9769 12 Aug, 2016 Back pain M54.9 [facility] [address] [place] [id number] [place] [address] 65382- 7571 11 Aug, 2016 Epistaxis R04.0 [facility] [id number] [place] [address] 54495- 2171 15 Jul, 2016 [facility] [address] [place] [id number] [place] [address] 37443- 8843 14 Jul, 2016 Back pain M54.9 [facility] [address] [place] [id number] [place] [address] 61834- 1366 15 Jun, 2016 Back pain M54.9 [facility] [address] [place] [id number] [place] [address] 71437- 6878 Jun, Localized edema R60.0 [place] [address] [place] [id number] [place] [address] 91231- 9014 Jun, [place] [address] 95198- 1858 Jun, Anemia due to blood loss D50.0 ; Venous insufficiency I87.2 ; Hypertension I10 and Plantar fasciitis M72.2 [place] [address] [place] [id number] [place] [address] 48188- 4427 May, Back pain M54.9 [place] [address] 81637- 8424 May, [place] [address] [place] [id number] [place] [address] 75679- 4074 May, [facility] use of drug Z79.899 ; Anemia due to blood loss D50.0 and Venous insufficiency I87.2 [place] [address] [place] [id number] [place] [address] 37814- 9777 May, Back pain M54.9 [place] [address] [place] [id number] [place] [address] 50255- 0646 May, Anemia due to blood loss D50.0 [place] [address] [place] [id number] [place] [address] 97102- 5930 May, Localized edema R60.0 [place] [address] [place] [id number] [place] [address] 75151- 9633 May, Blood loss anemia D50.0 ; Localized edema R60.0 and Coronary artery disease I25.10 [place] [address] [place] [id number] [place] [address] 33239- 2514 Apr, Blood loss anemia D50.0 [place] [address] [place] [id number] [place] [address] 76648- 6178 Apr, Epistaxis R04.0 ; Anemia, unspecified type D64.9 and Hyponatremia E87.1 [facility] [address] [facility] [id number] [address]- 3765 Apr, [facility] [address] [facility] [id number] [place] [address] 38931- 9766 Apr, Back pain M54.9 [facility] [address] [facility] [id number] [place] [address] 23290 2546 Apr, Back pain M54.9 [facility] [address] [facility] [id number] [place] [address] 98210- 4755 Mar, [facility] [address] [facility] [id number] [place] [address] 14516- 4439 Mar, Back pain M54.9 [facility] [address] [facility] [id number] [place] [address] 00795- 9186 Feb, [facility] [address] [place] [id number] [place] [address] 01495- 1582 Feb, [facility] [address] [facility] [id number] [place] [address] 93915- 6486 Jan, [facility] [address] [place] [id number] [place] [address] 15703- 2065 Dec, [facility] [address] [facility] [id number] [place] [address] 34685- 1818 Dec, [facility] [address] [place] [id number] [place] [address] 66799- 0003 Dec, Arthritis, 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 and Leg weakness, bilateral M62.81 [facility] [address] [facility] [id number] [place] [address] 05353- 2676 Dec, [facility] [address] [facility] [id number] [place] [address] 06521- 2362 Oct, Back pain M54.9 [facility] [address] [place] [id number] [place] [address] 51358 2546 Oct, Back pain M54.9 [facility] [address] [address]- 3355 September, Back pain M54.9 [facility] [address] [place] [id number] [place] [address] 48205- 4216 Aug, Back pain M54.9 [facility] [address] [address]- 4586 06 Aug, 2015 Back pain M54.9 [facility] [address] [place] [id number] [place] [address] 22450- 4526 14 Jul, 2015 [facility] [address] [place] [id number] [place] [address] 02675- 7508 Jul, Back pain M54.9 [facility] [address] [place] [id number] [place] [address] 51508- 6046 16 Jun, 2015 [facility] [address] [place] [id number] [place] [address] 75524- 7855 03 Jun, 2015 Back pain M54.9 [facility] [address] [address]- 3759 15 May, 2015 [facility] use of drug Z79.899 ; Back pain M54.9 ; Hyperlipidemia E78.5 ; Hypertension I10 and GERD (gastroesophageal reflux disease) K21.9 [facility] [address] [address]- 5488 May, Arthritis M19.90 [facility] [address] [address]- 1172 16 Apr, 2015 [facility] [address] [address]- 2466 Apr, [facility] [id number] [place] [address] 15560- 4281 Mar, [facility] [address] [address]- 7693 Mar, [facility] [address] [place] [id number] [address]- 6190 Feb, Arthritis M19.90 ; Encounter for immunization Z23 ; Contusion of right hip S70.01XA and Coronary artery disease I25.10 [facility] [address] [address]- 9080 Jan, [facility] [address] [place] [id number] [address]- 5581 Jan, [facility] [address] [place] [id number] [place] [address] 41280- 2634 Dec, Acute bronchitis 466.0 and Unspecified arthropathy, site unspecified 716.90 [facility] [address] [place] [id number] [address]- 8482 Dec, [facility] [address] [place] [id number] [address]- 7102 Dec, [facility] [address] [place] [id number] [address]- 4551 Nov, [facility] [address] [address]- 8858 Nov, [facility] [address] [address]- 7852 Nov, [facility] [address], [place] [address]- 8849 Oct, [facility] [address] [address]- 2124 Oct, [facility] [address] [address]- 6305 Oct, Unspecified arthropathy, site unspecified 716.90 [facility] [address] 1237 Oct, [facility] [address] [address]- 7402 September, [facility] [place] [facility] [address] [id number] [place] [address]- 7443 September, [facility] [place] [facility] [address] [id number] [place] [address]- 9803 Aug, [facility] [place] [facility] [address] [id number] [place] [address]- 1146 Aug, [facility] [place] [facility] [address] [id number] [place] [address]- 8609 Jul, [facility] [place] [facility] [address] [id number] [place] [address]- 1919 Jul, [facility] [place] [facility] [address] [id number] [place] [address]- 2054 Jul, [facility] [place] [facility] [address] [facility] [id number] [place] [address]- 2232 Jul, [facility] [place] [facility] [address] [id number] [place] [address]- 4338 Jul, [facility] [place] [facility] [address] [id number] [place] [address]- 9504 Jul, [facility] [place] [facility] [address] [id number] [place] [address]- 8210 Jun, [facility] [place] [facility] [address] [id number] [place] [address]- 2968 Jun, [facility] [place] [facility] [address] [id number], [place] [address]- 7216 Jun, [facility] [place] [facility] [address] [id number] [place] [address]- 2163 Jun, [facility] [place] [facility] [address] [id number] [place] [address]- 6156 May, [facility] [place] [facility] [address] [id number] [place] [address]- 2826 May, [facility] [place] [facility] [address] [id number], [place] [address]- 3725 May, [facility] [place] [facility] [address] [id number] [place] [address]- 1252 May, [facility] [place] [facility] [address] [id number] [place] [address]- 7760 May, [facility] [place] [facility] [address] [id number] [place] [address]- 5215 May, [facility] [place] [facility] [address] [id number] [place] [address]- 0833 May, [facility] [place] [facility] [address] [id number] [place] [address]- 8260 May, [facility] [place] [facility] [address] [id number] [place] [address]- 1265 May, [facility] [place] [facility] [address] [id number] [place] [address]- 9241 May, [facility] [place] [facility] [address] [id number] [place] [address]- 6449 May, [facility] [place] [facility] [address] [id number] [place] [address]- 6541 Apr, [facility] [place] [facility] [address] [id number] [place] [address]- 5079 Apr, [facility] [place] [facility] [address] [id number] [place] [address]- 0147 Apr, [facility] [place] [facility] [address] [id number] [place] [address]- 1707 Apr, [facility] [place] [facility] [address] [id number] [place] [address]- 1253 Apr, [facility] [place] [facility] [address] [id number] [place] [address]- 7327 Mar, [facility] [place] [facility] [address] [id number] [place] [address]- 1438 Mar, [facility] [place] [facility] [address] [id number] [place] [address]- 8107 Feb, [facility] [place] [facility] [address] [id number] [place] [address]- 2616 Feb, [facility] [place] [facility] [address] [id number] [place] [address]- 6396 Feb, [facility] [place] [facility] [address] [id number] [place] [address]- 7834 Feb, [facility] [place] [facility] [address] [id number] [place] [address]- 2773 Jan, [facility] [place] [facility] [address] [id number] [place] [address]- 2434 Jan, [facility] [place] [facility] [address] [id number] [place] [address]- 5296 Dec, [facility] [place] [facility] [address] [id number] [place] [address]- 4757 Dec, [facility] [place] [facility] [address] [id number] [place] [address]- 0014 Nov, [facility] [place] [facility] [address] [id number] [place] [address]- 1977 Nov, [facility] [place] [facility] [address] [id number] [place] [address]- 5890 Oct, [facility] [place] [facility] [address] [id number] [place] [address]- 9340 Oct, [facility] [place] [facility] [address] [id number] [place] [address]- 6603 Oct, [facility] [place] [facility] [address] [id number] [place] [address]- 5964 Oct, [facility] [place] [facility] [address] [id number] [place] [address]- 9566 Aug, [facility] [place] [facility] [address] [id number] [place] [address]- 4636 Aug, [facility] [address] [id number] [place] [address]- 5774 Aug, [facility] [place] [facility] [address] [id number] [place] [address]- 1871 Aug, [facility] [place] [facility] [address] [id number] [place] [address]- 9720 May, [facility] [place] [facility] [address] [id number] [place] [address]- 7680 May, [facility] [place] [facility] [address] [id number] [place] [address]- 3942 May, [facility] [place] [facility] [address] [id number] [place] [address]- 3785 May, [facility] [place] [facility] [address] [id number] [place] [address]- 1417 May, [facility] [place] [facility] [address] [id number] [place] [address]- 1598 May, [facility] [place] [facility] [address] [id number] [place] [address]- 3758 May, [facility] [place] [facility] [address] [id number], [place] [address]- 2132 Apr, [facility] [place] [facility] [address] [id number], [place] [address]- 3792 Apr, [facility] [place] [facility] [address] [id number], [place] [address]- 8708 Apr, [facility] [place] [facility] [address] [id number] [place] [address]- 3658 Apr, [facility] [place] [facility] [address] [id number], [place] [address]- 7290 Apr, [facility] [place] [facility] [address] [id number] [place] [address]- 2204 Apr, [facility] [place] [facility] [address] [id number] [place] [address]- 3405 05 Apr, 2013 [facility] [address] [id number] [place] [address]- 7569 05 Apr, 2013 [facility] [place] [facility] [address] [id number] [place] [address]- 5967 Apr, [facility] [place] [facility] [address] [id number] [place] [address]- 6795 Apr, [facility] [place] [facility] [address] [id number] [place] [address]- 2826 Mar, [facility] [place] [facility] [address] [id number] [place] [address]- 8390 Mar, [facility] [place] [facility] [address] [id number] [place] [address]- 2108 Mar, [facility] [place] [facility] [address] [id number] [place] [address]- 8929 Mar, [facility] [place] [facility] [address] [id number] [place] [address]- 2845 Feb, [facility] [place] [facility] [address] [id number] [place] [address]- 9238 Feb, [facility] [place] [facility] [address] [facility] [id number] [place] [address]- 1378 Jan, [facility] [place] [facility] [address] [id number] [place] [address]- 0295 Jan, [facility] [place] [facility] [address] [id number] [place] [address] Jan, [facility] [place] [facility] [address] [id number] [place] [address] Dec, [facility] [place] [facility] [address] [id number] [place] [address] Dec, [facility] [place] [facility] [address] [facility] [id number] [place] [address] Nov, [facility] [place] [facility] [address] [id number] [place] [address] Oct, [facility] [place] [facility] [address] [id number] [place] [address] Oct, [facility] [place] [facility] [address] [id number] [place] [address] Oct, [facility] [place] [facility] [address] [id number] [place] [address] September, [facility] [place] [facility] [address] [id number] [place] [address] September, [facility] [place] [facility] [address] [id number] [place] [address] Jun, [facility] [address] [id number] [place] [address] Jun, [facility] [place] [facility] [address] [id number] [place] [address] Jun, [facility] [place] [facility] [address] [id number] [place] [address] Jun, [facility] [address] [id number] [place] [address] May, [facility] [address] [id number] [place] [address] May, [facility] [facility] [address] [id number] [place] [address] May, [facility] [address] [id number] [place] [address] May, [facility] [facility] [address] [id number] [place] [address] Apr, [facility] [place] [facility] [address] [id number] [place] [address]- [address] Apr, [facility] [facility] [address] [id number], [place] [address] Apr, [facility] [address] [id number] [place] [address] Apr, [facility] [place] [facility] [address] [id number], [place] [address] Apr, [facility] [address] [facility] [id number] [place] [address] Apr, [facility] [place] [facility] [address] [id number], [place] [address] Mar, [facility] [address] [id number] [place] [address] Mar, [facility] [address] [id number] [place] [address] Mar, [facility] [place] [facility] [address] [facility] [id number], [place] [address] Mar, [facility] [place] [facility] [address] [id number] [place] [address] Feb, [facility] [address] [id number], [place] [address] Feb, [facility] [address] [facility] [id number], [place] [address] Feb, [facility] [address] [id number], [place] [address] Feb, [facility] [address] [facility] [id number], [place] [address] 10 Feb, 2012 [facility] [address] [id number], [place] [address] 17 Sep2011 [facility] [address] [id number] [place]- [address] 13 Sep2011 [facility] [address] [facility] [id number] [place] [address]- [address] 12 Sep2011 [facility] [address] [id number] [place] [address] 12 Jan, 2012 [facility] [address] [id number] [place] [address] 11 Jan, 2012 [facility] [address] [id number] [place] [address]- [address] 14 Dec, 2011 [facility] [address] [id number] [place] [address]- [address] 17 Nov, 2011 [facility] [address] [id number] [place] [address] Nov, [facility] [address] [id number] [place] [address] Nov, [facility] [address] [id number] [place] [address] Nov, [facility] [address] [id number] [place] [address] Nov, [facility] [address] [id number] [place] [address] Oct, [facility] [address] [id number] [place] [address] September, [facility] [address] [id number] [place] [address]- [address] September, [facility] [address] [id number] [place] [address] Aug, [facility] [address] [id number] [place] [address]- [address] Aug, [facility] [place] [facility] [address] [id number] [place] [address] Aug, [facility] [place] [facility] [address] [id number] [place] [address] Aug, [facility] [place] [facility] [address] [id number] [place] [address] Jul, [facility] [place] [facility] [address] [id number] [place] [address] Jul, [facility] [place] [facility] [address] [id number] [place] [address] Jun, [facility] [place] [facility] [address] [id number] [place] [address] Jun, [facility] [place] [facility] [address] [id number] [place] [address] Jun, [facility] [place] [facility] [address] [id number] [place] [address] Jun, [facility] [place] [facility] [address] [id number] [place] [address] May, [facility] [place] [facility] [address] [id number] [place] [address] May, [facility] [place] [facility] [address] [id number] [place] [address] May, [facility] [place] [facility] [address] [id number] [place] [address] May, [facility] [place] [facility] [address] [id number] [place] [address] May, [facility] [place] [facility] [address] [id number] [place] [address] May, [facility] [place] [facility] [address] [id number] [place] [address] Apr, [facility] [place] [facility] [address] [id number] [place] [address] Apr, [facility] [place] [facility] [address] [id number] [place] [address] Apr, [facility] [place] [facility] [address] [id number] [place] [address] Apr, [facility] [place] [facility] [address] [id number] [place] [address] 20 Apr, 2011 [facility] [address] [id number] [place] [address] 16 Apr, 2011 [facility] [address] [id number] [place] [address] 16 Apr, 2011 [facility] [address] [id number] [place] [address] Apr, [facility] [address] [id number] [place] [address] Mar, [facility] [address] [id number] [place] [address] Mar, [facility] [address] [id number] [place] [address] Mar, [facility] [address] [id number] [place] [address] September, [facility] [address] [id number] [place] [address] September, [facility] [address] [id number] [place] [address] Jul, [facility] [address] [id number] [place] [address] 10 Jun, 2010 [facility] [address] [id number] [place] [address] Apr, [facility] [address] [id number] [place] [address] Apr, [facility] [place] [facility] [address] [id number] [place] [address] Apr, [facility] [place] [facility] [address] [id number] [place] [address] Mar, [facility] [address] [id number] [place] [address] Mar, [facility] [address] [id number] [address] Mar, [facility] [address] [id number] [address] Feb, [facility] [address] [id number] [address] Jan, [facility] [id number] [address] Apr, [facility] [id number], [place] [address] Apr, [facility] [id number] [address] Mar, [facility] [id number] [address] Mar, [facility] [address] [id number], [place] [address] Feb, [facility] [address] [id number], [place] [address] Jun, IMMUNIZATIONS No Known Immunizations SOCIAL HISTORY Never Assessed REASON FOR VISIT Hydrocodone and Tramadol Due 12/02 PLAN OF CARE VITAL SIGNS MEDICATIONS Medication Instructions Dosage Frequency Start Date End Date Duration Status Tramadol HCl 50 mg Orally every 6 hrs 1 tablet 6h 28 days Active Hydrocodone-Acetaminophen 10-325 MG Orally every 4 hrs 1 tablet 4h Nov, 28 days Active RESULTS No Results PROCEDURES [...]
--- OUTSIDE RECORDS SUMMARY | 2018-02-27 14:57 | XMS REPORT ---
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 Active 16918484 Problem Venous insufficiency I87.2 Active 41877096 Problem Hyperlipidemia E78.5 Active 73932769 Problem Peripheral vascular disease I73.9 Active 410102902 Problem Cigarette nicotine dependence without complication F17.210 Active 73433255 ALLERGIES No Information ENCOUNTERS Encounter Location Date Diagnosis [place] [id number] [place] [address] 56176- 5716 Dec, Back pain M54.9 ; Hyponatremia E87.1 ; 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 ; Peripheral vascular disease I73.9 ; Cigarette nicotine dependence without complication F17.210 ; Coronary artery disease I25.10 and GERD (gastroesophageal reflux disease) K21.9 [facility] [id number] [place] [address] 58634- 2278 16 Dec, 2017 Back pain M54.9 [facility] [address] [id number] [place] [address] 89040- 5253 Nov, Back pain M54.9 [facility] [id number] [place] [address] 56957- 6162 17 Nov, 2017 Back pain M54.9 [place] [address] [id number] [place] [address] 22159- 2279 Nov, Bronchitis J40 [facility] [id number] [place] [address] 19021- 8390 Oct, Back pain M54.9 [facility] [id number] [place] [address] 75564- 6445 Oct, 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 [facility] [id number] [place] [address] 53979- 0458 September, rn long term care current use of opiate analgesic Z79.891 ; Medication monitoring encounter Z51.81 ; Back pain M54.9 ; Weakness R53.1 ; Cigarette nicotine dependence without complication F17.210 ; Coronary artery disease I25.10 and Peripheral vascular disease I73.9 [facility] [address] [id number] [place] [address] 72769- 7770 September, Back pain M54.9 [facility] [id number] [place] [address] 60072- 0376 Aug, Back pain M54.9 [facility] [id number] [place] [address] 41550- 3027 Aug, [facility] [id number] [place] [address] 33841- 0478 Aug, Back pain M54.9 [facility] [id number] [place] [address] 06019- 8231 Jul, Back pain M54.9 [facility] [id number] [place] [address] 35029- 8255 Jun, [facility] [id number] [place] [address] 50271- 5097 Jun, Back pain M54.9 [facility] [id number] [place] [address] 23325- 2546 May, Back pain M54.9 [facility] [id number] [place] [address] 39449- 7419 May, Back pain M54.9 [facility] [address] 35271- 3125 May, Hypertension I10 ; Back pain M54.9 and Cigarette nicotine dependence without complication F17.210 [facility] [address] 81796- 2516 Apr, Back pain M54.9 [facility] [address] 78778- 0783 Apr, Hypokalemia E87.6 [place] [address] 85394- 6202 Apr, Hypokalemia E87.6 [place] [address] 43019- 1582 Mar, Back pain M54.9 [facility] [address] 63852- 9438 Mar, [facility] [address] 58985- 3387 Mar, Back pain M54.9 ; Coronary artery disease I25.10 and Acute nasopharyngitis J00 [facility] [address] [id number] [place] [address] 18646- 4574 Mar, Back pain M54.9 [facility] [id number] [place] [address] 41266- 0477 Feb, Back pain M54.9 [facility] [address] 68536- 5963 Jan, Anemia due to blood loss D50.0 and Hypokalemia E87.6 [facility] [id number] [place] [address] 22376- 8670 Jan, [facility] [address] [place] [address]- 1859 11 Jan, 2017 Hypokalemia E87.6 [facility] [id number] [place] [address] 21147- 0736 08 Jan, 2017 Back pain M54.9 [facility] [id number] [place] [address] 86646- 2106 08 Jan, 2017 [facility] [id number] [place] [address] 27810- 0359 14 Dec, 2016 Hypertension I10 and Back pain M54.9 [facility] [id number] [place] [address] 38307- 3612 29 Oct, 2016 Back pain M54.9 [facility] [id number] [place] [address] 86879- 6844 15 Oct, 2016 Back pain M54.9 [facility] [id number] [place] [address] 14057- 4798 07 Oct, 2016 Back pain M54.9 [facility] [id number] [place] [address] 80326- 6164 08 Sep, 2016 Back pain M54.9 [facility] [id number] [place] [address] 91069- 9613 12 Aug, 2016 Back pain M54.9 [facility] [id number] [place] [address] 95517- 5914 11 Aug, 2016 Epistaxis R04.0 [facility] [id number] [place] [address] 07500- 5094 15 Jul, 2016 [facility] [address] [id number] [place] [address] 96454- 6463 14 Jul, 2016 Back pain M54.9 [facility] [id number] [place] [address] 77609- 2466 15 Jun, 2016 Back pain M54.9 [facility] [id number] [place] [address] 37236- 9436 Jun, Localized edema R60.0 [place] [address] [id number] [place] [address] 03295- 4144 Jun, [place] [address] 32138- 2485 Jun, Anemia due to blood loss D50.0 ; Venous insufficiency I87.2 ; Hypertension I10 and Plantar fasciitis M72.2 [place] [address] [place] [id number] [place] [address] 44649- 5103 May, Back pain M54.9 [place] [address] 44645- 6082 May, [place] [address] [place] [id number] [place] [address] 89466- 7613 May, nursing home use of drug Z79.899 ; Anemia due to blood loss D50.0 and Venous insufficiency I87.2 [place] [address] [place] [id number] [place] [address] 91584- 0803 May, Back pain M54.9 [place] [address] [place] [id number] [place] [address] 99955- 3929 May, Anemia due to blood loss D50.0 [place] [address] [place] [id number] [place] [address] 50479- 6302 May, Localized edema R60.0 [place] [address] [place] [id number] [place] [address] 34295- 2775 May, Blood loss anemia D50.0 ; Localized edema R60.0 and Coronary artery disease I25.10 [place] [address] [place] [id number] [place] [address] 25402- 1690 Apr, Blood loss anemia D50.0 [place] [address] [place] [id number] [place] [address] 41252- 3570 Apr, Epistaxis R04.0 ; Anemia, unspecified type D64.9 and Hyponatremia E87.1 [facility] [address] [facility] [id number] [address]- 6337 Apr, [facility] [address] [facility] [id number] [place] [address] 37752- 7486 Apr, Back pain M54.9 [facility] [address] [facility] [id number] [place] [address] 36468 2546 Apr, Back pain M54.9 [facility] [address] [facility] [id number] [place] [address] 17428- 1795 Mar, [facility] [address] [facility] [id number] [place] [address] 79860- 7442 Mar, Back pain M54.9 [facility] [address] [facility] [id number] [place] [address] 59475- 8876 Feb, [facility] [id number] [place] [address] 70562- 1358 Feb, [facility] [address] [facility] [id number] [place] [address] 93448- 6040 Jan, [facility] [address] [place] [id number] [place] [address] 47174- 9282 Dec, [facility] [address] [facility] [id number] [place] [address] 22038- 9333 Dec, [facility] [address] [id number] [place] [address] 63014- 3363 Dec, Arthritis, 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 and Leg weakness, bilateral M62.81 [facility] [address] [facility] [id number] [place] [address] 94837- 0796 Dec, [facility] [address] [facility] [id number] [place] [address] 88109- 7096 Oct, Back pain M54.9 [facility] [address] [place] [id number] [place] [address] 56126 2546 Oct, Back pain M54.9 [facility] [address] [address]- 5117 September, Back pain M54.9 [facility] [address] [id number] [place] [address] 05221- 4946 Aug, Back pain M54.9 [facility] [address] [address]- 1836 06 Aug, 2015 Back pain M54.9 [facility] [address] [place] [id number] [place] [address] 88288- 1186 14 Jul, 2015 [facility] [address] [place] [id number] [place] [address] 36949- 6585 Jul, Back pain M54.9 [facility] [address] [id number] [place] [address] 62138- 7916 16 Jun, 2015 [facility] [address] [place] [id number] [place] [address] 60715- 7220 03 Jun, 2015 Back pain M54.9 [facility] [address] [address]- 5831 15 May, 2015 nursing home use of drug Z79.899 ; Back pain M54.9 ; Hyperlipidemia E78.5 ; Hypertension I10 and GERD (gastroesophageal reflux disease) K21.9 [facility] [address], [place] [address]- 7457 May, Arthritis M19.90 [facility] [address], [place] [address]- 3441 16 Apr, 2015 [facility] [address], [place] [address]- 5006 Apr, [facility] [address] [place] [address] 68254- 2174 Mar, [facility] [address], [place] [address]- 2646 Mar, [facility] [address] [id number] [address]- 9551 Feb, Arthritis M19.90 ; Encounter for immunization Z23 ; Contusion of right hip S70.01XA and Coronary artery disease I25.10 [facility] [address], [place] [address]- 0838 Jan, [facility] [address] [id number] [address]- 4891 Jan, [facility] [address] [id number] [place] [address] 50370- 0930 Dec, Acute bronchitis 466.0 and Unspecified arthropathy, site unspecified 716.90 [facility] [address] [id number] [address]- 9608 Dec, [facility] [address] [id number] [address]- 0678 Dec, [facility] [id number] [address]- 4541 Nov, [facility] [address], [place] [address]- 9851 Nov, [facility] [address] [address]- 7329 Nov, [facility] [address], [place] [address]- 0551 Oct, [facility] [address], [place] [address]- 8962 Oct, [facility] [address] [address]- 0156 Oct, Unspecified arthropathy, site unspecified 716.90 [facility] [address] 6963 Oct, [facility] [address] [address]- 7075 September, [facility] [place] [facility] [address] [id number] [place] [address]- 2216 September, [facility] [place] [facility] [address] [id number] [place] [address]- 3064 Aug, [facility] [place] [facility] [address] [id number] [place] [address]- 2336 Aug, [facility] [place] [facility] [address] [id number] [place] [address]- 3439 Jul, [facility] [place] [facility] [address] [id number] [place] [address]- 0860 Jul, [facility] [place] [facility] [address] [id number] [place] [address]- 7740 Jul, [facility] [place] [facility] [address] [facility] [id number] [place] [address]- 3180 Jul, [facility] [place] [facility] [address] [id number] [place] [address]- 2750 Jul, [facility] [place] [facility] [address] [id number] [place] [address]- 1711 Jul, [facility] [place] [facility] [address] [id number] [place] [address]- 7149 Jun, [facility] [place] [facility] [address] [id number] [place] [address]- 2665 Jun, [facility] [place] [facility] [address] [id number], [place] [address]- 0336 Jun, [facility] [place] [facility] [address] [id number] [place] [address]- 2307 Jun, [facility] [place] [facility] [address] [id number] [place] [address]- 9176 May, [facility] [place] [facility] [address] [id number] [place] [address]- 3666 May, [facility] [place] [facility] [address] [id number], [place] [address]- 4532 May, [facility] [place] [facility] [address] [id number] [place] [address]- 1705 May, [facility] [place] [facility] [address] [id number] [place] [address]- 8789 May, [facility] [place] [facility] [address] [id number] [place] [address]- 0513 May, [facility] [place] [facility] [address] [id number] [place] [address]- 6581 May, [facility] [place] [facility] [address] [id number] [place] [address]- 5660 May, [facility] [place] [facility] [address] [id number] [place] [address]- 5522 May, [facility] [place] [facility] [address] [id number] [place] [address]- 4306 May, [facility] [place] [facility] [address] [id number] [place] [address]- 7956 May, [facility] [place] [facility] [address] [id number] [place] [address]- 6553 Apr, [facility] [place] [facility] [address] [id number] [place] [address]- 3979 Apr, [facility] [place] [facility] [address] [id number] [place] [address]- 9177 Apr, [facility] [place] [facility] [address] [id number] [place] [address]- 8820 Apr, [facility] [place] [facility] [address] [id number] [place] [address]- 7319 Apr, [facility] [place] [facility] [address] [id number] [place] [address]- 2279 Mar, [facility] [place] [facility] [address] [id number] [place] [address]- 5038 Mar, [facility] [place] [facility] [address] [id number] [place] [address]- 1152 Feb, [facility] [place] [facility] [address] [id number] [place] [address]- 0736 Feb, [facility] [place] [facility] [address] [id number] [place] [address]- 4676 Feb, [facility] [place] [facility] [address] [id number] [place] [address]- 6531 Feb, [facility] [place] [facility] [address] [id number] [place] [address]- 0394 Jan, [facility] [place] [facility] [address] [id number] [place] [address]- 9322 Jan, [facility] [place] [facility] [address] [id number] [place] [address]- 7455 Dec, [facility] [place] [facility] [address] [id number] [place] [address]- 0458 Dec, [facility] [place] [facility] [address] [id number] [place] [address]- 6704 Nov, [facility] [place] [facility] [address] [id number] [place] [address]- 8366 Nov, [facility] [place] [facility] [address] [id number] [place] [address]- 9608 Oct, [facility] [place] [facility] [address] [id number] [place] [address]- 6481 Oct, [facility] [place] [facility] [address] [id number] [place] [address]- 4509 Oct, [facility] [place] [facility] [address] [id number] [place] [address]- 3550 Oct, [facility] [place] [facility] [address] [id number] [place] [address]- 2853 Aug, [facility] [place] [facility] [address] [id number] [place] [address]- 1952 Aug, [facility] [address] [id number] [place] [address]- 5555 Aug, [facility] [place] [facility] [address] [id number] [place] [address]- 4160 Aug, [facility] [place] [facility] [address] [id number] [place] [address]- 5439 May, [facility] [place] [facility] [address] [id number] [place] [address]- 3851 May, [facility] [place] [facility] [address] [id number] [place] [address]- 1499 May, [facility] [place] [facility] [address] [id number] [place] [address]- 1554 May, [facility] [place] [facility] [address] [id number] [place] [address]- 0876 May, [facility] [place] [facility] [address] [id number] [place] [address]- 3030 May, [facility] [place] [facility] [address] [id number] [place] [address]- 8774 May, [facility] [place] [facility] [address] [id number], [place] [address]- 6567 Apr, [facility] [place] [facility] [address] [id number], [place] [address]- 9299 Apr, [facility] [place] [facility] [address] [id number], [place] [address]- 9238 Apr, [facility] [place] [facility] [address] [id number] [place] [address]- 2812 Apr, [facility] [place] [facility] [address] [id number], [place] [address]- 0105 Apr, [facility] [place] [facility] [address] [id number] [place] [address]- 9065 Apr, [facility] [place] [facility] [address] [id number] [place] [address]- 7970 05 Apr, 2013 [facility] [address] [id number] [place] [address]- 0310 05 Apr, 2013 [facility] [place] [facility] [address] [id number] [place] [address]- 3265 Apr, [facility] [place] [facility] [address] [id number] [place] [address]- 1998 Apr, [facility] [place] [facility] [address] [id number] [place] [address]- 1372 Mar, [facility] [place] [facility] [address] [id number] [place] [address]- 2711 Mar, [facility] [place] [facility] [address] [id number] [place] [address]- 5433 Mar, [facility] [place] [facility] [address] [id number] [place] [address]- 7623 Mar, [facility] [place] [facility] [address] [id number] [place] [address]- 5587 Feb, [facility] [place] [facility] [address] [id number] [place] [address]- 6554 Feb, [facility] [place] [facility] [address] [facility] [id number] [place] [address]- 5588 Jan, [facility] [place] [facility] [address] [id number] [place] [address]- 2832 Jan, [facility] [place] [facility] [address] [id number] [place] [address]- 9210 Jan, [facility] [place] [facility] [address] [id number] [place] [address]- 4073 Dec, [facility] [place] [facility] [address] [id number] [place] [address]- 2390 Dec, [facility] [place] [facility] [address] [facility] [id number] [place] [address]- 6867 Nov, [facility] [place] [facility] [address] [id number] [place] [address] Oct, [facility] [place] [facility] [address] [id number] [place] Oct, [facility] [place] [facility] [address] [id number] [place] [address] Oct, [facility] [place] [facility] [address] [id number] [place] [address] September, [facility] [place] [facility] [address] [id number] [place] [address] September, [facility] [place] [facility] [address] [id number] [place] [address] Jun, [facility] [place] [facility] [address] [id number] [place] Jun, [facility] [place] [facility] [address] [id number] [place] [address] Jun, [facility] [place] [facility] [address] [id number] [place] [address] Jun, [facility] [place] [facility] [address] [id number] [place] [address] May, [facility] [place] [facility] [address] [id number] [place] [address] May, [facility] [place] [facility] [address] [id number] [place] [address] May, [facility] [place] [facility] [address] [id number] [place] [address] May, [facility] [place] [facility] [address] [id number] [place] [address] Apr, [facility] [place] [facility] [address] [id number] [place] [address] Apr, [facility] [place] [facility] [address] [id number], [place] [address] Apr, [facility] [place] [facility] [address] [id number] [place] [address] Apr, [facility] [place] [facility] [address] [id number], [place] [address] Apr, [facility] [place] [facility] [address] [facility] [id number] [place] [address] Apr, [facility] [place] [facility] [address] [id number], [place] [address] Mar, [facility] [place] [facility] [address] [id number] [place] [address] Mar, [facility] [place] [facility] [address] [id number] [place] [address]- [address] Mar, [facility] [place] [facility] [address] [facility] [id number], [place] [address] Mar, [facility] [place] [facility] [address] [id number] [place] [address]- [address] Feb, [facility] [place] [facility] [address] [id number], [place] [address] Feb, [facility] [place] [facility] [address] [facility] [id number], [place] [address] Feb, [facility] [place] [facility] [address] [id number], [place] [address]- [address] Feb, [facility] [place] [facility] [address] [facility] [id number][place] [address] 10 Feb, 2012 [facility] [place] [facility] [address] [id number], [place] [address] 17 Sep2011 [facility] [place] [facility] [address] [id number] [place] [address] 13 Sep2011 [facility] [place] [facility] [address] [facility] [id number] [place] [address]- [address] 12 Sep2011 [facility] [place] [facility] [address] [id number] [place] [address]- [address] 12 Jan, 2012 [facility] [address] [id number] [place] [address]- [address] 11 Jan, 2012 [facility] [place] [facility] [address] [id number] [place] [address]- [address] 14 Dec, 2011 [facility] [place] [facility] [address] [id number] [place] [address] 17 Nov, 2011 [facility] [place] [facility] [address] [id number] [place] [address]- [address] Nov, [facility] [place] [facility] [address] [id number] [place] [address] Nov, [facility] [place] [facility] [address] [id number] [place] [address]- [address] Nov, [facility] [place] [facility] [address] [id number] [place] [address] Nov, [facility] [address] [id number] [place] [address] Oct, [facility] [place] [facility] [address] [id number] [place] [address] September, [facility] [place] [facility] [address] [id number] [place] [address] September, [facility] [place] [facility] [address] [id number] [place] [address] Aug, [facility] [place] [facility] [address] [id number] [place] [address] Aug, [facility] [place] [facility] [address] [id number] [place] [address] Aug, [facility] [place] [facility] [address] [id number] [place] [address] Aug, [facility] [place] [facility] [address] [id number] [place] [address] Jul, [facility] [place] [facility] [address] [id number] [place] [address] Jul, [facility] [place] [facility] [address] [id number] [place] [address] Jun, [facility] [place] [facility] [address] [id number] [place] [address] Jun, [facility] [place] [facility] [address] [id number] [place] [address] Jun, [facility] [place] [facility] [address] [id number] [place] [address] Jun, [facility] [place] [facility] [address] [id number] [place] [address] May, [facility] [place] [facility] [address] [id number] [place] [address] May, [facility] [place] [facility] [address] [id number] [place] [address] May, [facility] [place] [facility] [address] [id number] [place] [address] May, [facility] [place] [facility] [address] [id number] [place] [address] May, [facility] [place] [facility] [address] [id number] [place] [address] May, [facility] [place] [facility] [address] [id number] [place] [address] Apr, [facility] [place] [facility] [address] [id number] [place] [address] Apr, [facility] [place] [facility] [address] [id number] [place] [address] Apr, [facility] [place] [facility] [address] [id number] [place] [address] Apr, [facility] [place] [facility] [address] [id number] [place] [address] 20 Apr, 2011 [facility] [address] [id number] [place] [address] 16 Apr, 2011 [facility] [address] [id number] [place] [address] 16 Apr, 2011 [facility] [address] [id number] [place] [address] Apr, [facility] [address] [id number] [place] [address] Mar, [facility] [address] [id number] [place] [address] Mar, [facility] [address] [id number] [place] [address] Mar, [facility] [address] [id number] [place] [address] September, [facility] [address] [id number] [place] [address] September, [facility] [address] [id number] [place] [address] Jul, [facility] [address] [id number] [place] [address] 10 Jun, 2010 [facility] [address] [id number] [place] [address] Apr, [facility] [address] [id number] [place] [address] Apr, [facility] [place] [facility] [address] [id number] [place] [address] Apr, [facility] [place] [facility] [address] [id number] [place] [address] Mar, [facility] [address] [id number] [place] Mar, [facility] [address] [id number] [address] Mar, [facility] [address] [id number], [place] [address] Feb, [facility] [address] [id number], [place] [address] Jan, [facility] [id number] [place] [address] Apr, [facility] [id number], [place] [address] Apr, [facility] [id number] [place] [address] Mar, [facility] [id number] [place] [address] Mar, [facility] [address] [id number], [place] [address] Feb, [facility] [address] [id number], [place] [address] Jun, IMMUNIZATIONS No Known Immunizations SOCIAL HISTORY Never Assessed REASON FOR VISIT Refill request PLAN OF CARE VITAL SIGNS MEDICATIONS Medication Instructions Dosage Frequency Start Date End Date Duration Status Lisinopril 10 mg TAKE ONE TABLET BY MOUTH DAILY 90 Active Tramadol HCl 50 mg Orally every 6 hrs 1 tablet 6h 28 days Active Hydrocodone-Acetaminophen 10-325 MG Orally every 4 hrs 1 tablet 4h Oct, 28 days Active RESULTS No Results PROCEDURES [...]
--- OUTSIDE RECORDS SUMMARY | 2018-02-27 14:57 | XMS REPORT ---
Author Author LICO HUERTA Organization 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 [id number] [address] Dec, Back pain M54.9 [facility] [id number] [place] [address] 46235- 0009 Nov, Back pain M54.9 [facility] [id number] [place] [address] 97671- 4632 Nov, Back pain M54.9 [facility] [id number] [place] [address] 53287- 9666 Nov, Bronchitis J40 [facility] [id number] [place] [address] 22275- 7096 Oct, Back pain M54.9 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 [id number] [place] [address] 87130- 1076 September, penitentiary current use of opiate analgesic Z79.891 ; Medication monitoring encounter Z51.81 ; Back pain M54.9 ; Weakness R53.1 ; Cigarette nicotine dependence without complication F17.210 ; Coronary artery disease I25.10 and Peripheral vascular disease I73.9 [facility] [id number] [place] [address] 81195- 2219 September, Back pain M54.9 [facility] [id number] [place] [address] 26323- 4171 Aug, Back pain M54.9 [facility] [id number] [place] [address] 38906- 6421 Aug, [facility] [id number] [place] [address] 88582- 0706 Aug, Back pain M54.9 [facility] [id number] [place] [address] 07635- 0533 Jul, Back pain M54.9 [facility] [id number] [place] [address] 15366- 1818 Jun, [facility] [id number] [place] [address] 70130- 6098 Jun, Back pain M54.9 [facility] [id number] [place] [address] 31482- 2385 May, Back pain M54.9 [facility] [id number] [place] [address] 95952- 3640 May, Back pain M54.9 [facility] [address] [address]- 0801 May, Hypertension I10 ; Back pain M54.9 and Cigarette nicotine dependence without complication F17.210 [facility] [id number] [place] [address] 36825- 8161 Apr, Back pain M54.9 [facility] [id number] [place] [address] 87203- 1424 Apr, Hypok[address]emia E87.6 [facility] [address] 71084- 1170 Apr, Hypokalemia E87.6 [facility] [id number] [place] [address] 39088- 3253 Mar, Back pain M54.9 [facility] [id number] [place] [address] 41347- 8009 Mar, [facility] [id number] [place] [address] 09885- 9819 Mar, Back pain M54.9 ; Coronary artery disease I25.10 and Acute nasopharyngitis J00 [facility] [id number] [place] [address] 73402- 3211 Mar, Back pain M54.9 [facility] [id number] [place] [address] 92350- 1435 Feb, Back pain M54.9 [facility] [id number] [place] [address] 64843- 4201 Jan, Anemia due to blood loss D50.[address] [facility] [id number] [place] [address] 43748- 9149 18 Jan, 2017 [facility] [address] [facility] [id number] [place] [address] 73199 2546 11 Jan, [address] [facility] [id number] [place] [address] 39271 2546 08 Jan, [address] [facility] [id number] [place] [address] 63921 2546 08 Jan, 2017 [facility] [id number] [place] [address] 36186- 1218 14 Dec, 2016 Hypertension I10 and Back pain M54.9 [facility] [id number] [place] [address] 81654- 3883 29 Oct, [address] [facility] [id number] [place] [address] 83015- 7783 15 Oct, [address] [facility] [id number] [place] [address] 78630- 3081 07 Oct, [address] [facility] [id number] [place] [address] 87313- 8223 September, Back pain M54.9 [facility] [id number] [place] [address] 09994- 7633 12 Aug, [address] [facility] [id number] [place] [address] 38687- 1622 11 Aug, [address] [facility] [id number] [place] [address] 10801- 4966 15 Jul, 2016 [facility] [id number] [place] [address] 60770- 2039 14 Jul, [address] [facility] [id number] [place] [address] 93973- 4159 15 Jun, [address] [facility] [id number] [place] [address] 53459- 6036 09 Jun, [address] [facility] [id number] [place] [address] 64292- 0039 Jun, 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 [id number] [place] [address] 91008- 4094 May, Anemia due to blood loss D50.0 [facility] [id number] [place] [address] 09256- 0712 May, Localized edema R60.0 [facility] [facility] [address] 19364- 1094 May, Blood loss anemia D50.0 ; Localized edema R60.0 and Coronary artery disease I25.10 [facility] [id number] [place] [address] 15003- 5813 Apr, Blood loss anemia D50.0 [facility] [id number] [place] [address] 31880- 8809 Apr, Epistaxis R04.0 ; Anemia, unspecified type D64.[address] [facility] [id number] [place] [address] 10182- 7832 Apr, [facility] [address] 29637- 7567 Apr, Back pain M54.9 [facility] [id number] [place] [address] 74359- 0265 Apr, Back pain M54.9 [facility] [id number] [place] [address] 95346- 1638 Mar, [facility] [id number] [place] [address] 03829- 8472 Mar, Back pain M54.9 [facility] [id number] [place] [address] 39871- 7754 Feb, [facility] [id number] [place] [address] 10586- 6515 Feb, [facility] [id number] [place] [address] 73504- 9263 Jan, [facility] [id number] [place] [address] 10596- 4002 Dec, [facility] [id number] [place] [address] 77403- 9973 Dec, [facility] [id number] [place] [address] 01200- 3243 Dec, Arthritis, 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 and Leg weakness, bilateral M62.81 [facility] [id number] [place] [address] 07716- 1778 Dec, [facility] [id number] [place] [address] 97707- 4227 Oct, Back pain M54.9 [facility] [id number] [place] [address] 07561- 7048 Oct, Back pain M54.9 [facility] [id number] [place] [address] 80117- 1891 September, Back pain M54.9 [facility] [id number] [place] [address] 05881- 1696 Aug, Back pain M54.9 [facility] [id number] [place] [address] 71785- 2247 Aug, Back pain M54.9 [facility] [id number] [place] [address] 87850- 4122 Jul, [facility] [id number] [place] [address] 06668- 5922 Jul, Back pain M54.9 [facility] [id number] [place] [address] 82349- 9800 Jun, [facility] [id number] [place] [address] 32810- 9412 Jun, Back pain M54.9 [facility] [address] [place] [address] 85413- 5430 May, penitentiary use of drug Z79.899 ; Back pain M54.9 ; Hyperlipidemia E78.5 ; Hypertension I10 and GERD (gastroesophageal reflux disease) K21.9 [facility] [address] [place] [address] 35124- 6218 May, Arthritis M19.90 [facility] [id number] [place] [address] 21656- 5139 Apr, [facility] [id number] [place] [address] 44870- 3268 Apr, [facility] [id number] [place] [address] 17228- 9068 Mar, [facility] [address] [address]- 8733 Mar, [facility] [id number] [place] [address] 03630- 3676 Feb, Arthritis M19.90 ; Encounter for immunization Z23 ; Contusion of right hip S70.01XA and Coronary artery disease I25.10 [facility] [id number] [place] [address] 76158- 2869 Jan, [facility] [id number] [place] [address] 91409- 8076 Jan, [facility] [id number] [place] [address] 84355- 9584 Dec, Acute bronchitis 466.0 and Unspecified arthropathy, site unspecified 716.90 [facility] [id number] [place] [address] 91128- 0958 Dec, [facility] [id number] [address]- 5283 Dec, [facility] [id number] [address]- 0279 Nov, [facility] [address] [address]- 0962 Nov, [facility] [address] [address] 9326 Nov, [facility] [address] [address]- 8130 Oct, [facility] [id number] [address]- 0501 Oct, [facility] [address] [address]- 5106 Oct, Unspecified arthropathy, site unspecified 716.90 [facility] [id number] [place] [address], [place] [address]- 6698 Oct, [facility] [place] [facility] [address] [id number] [place] [address]- 8683 September, [facility] [place] [facility] [address] [id number] [place] [address]- 7186 September, [facility] [place] [facility] [address] [id number] [place] [address]- 9138 Aug, [facility] [place] [facility] [address] [id number] [place] [address]- 1078 Aug, [facility] [place] [facility] [address] [id number] [place] [address]- 3388 Jul, [facility] [place] [facility] [address] [id number] [place] [address]- 1552 Jul, [facility] [place] [facility] [address] [id number] [place] [address]- 1387 Jul, [facility] [place] [facility] [address] [facility] [id number] [place] [address]- 0228 Jul, [facility] [place] [facility] [address] [id number] [place] [address]- 4530 Jul, [facility] [place] [facility] [address] [facility] [id number] [place] [address]- 4140 Jul, [facility] [place] [facility] [address] [id number] [place] [address]- 6160 Jun, [facility] [place] [facility] [address] [id number] [place] [address]- 0571 Jun, [facility] [place] [facility] [address] [id number] [place] [address]- 3121 Jun, [facility] [place] [facility] [address] [facility] [id number] [place] [address]- 5966 Jun, [facility] [place] [facility] [address] [facility] [id number] [place] [address]- 7874 May, [facility] [place] [facility] [address] [id number] [place] [address]- 2061 May, [facility] [place] [facility] [address] [id number] [place] [address]- 6498 May, [facility] [place] [facility] [address] [id number] [place] [address]- 7788 May, [facility] [place] [facility] [address] [id number] [place] [address]- 8153 May, [facility] [place] [facility] [address] [id number] [place] [address]- 4715 May, [facility] [place] [facility] [address] [id number] [place] [address]- 8531 May, [facility] [place] [facility] [address] [id number] [place] [address]- 7714 May, [facility] [place] [facility] [address] [id number] [place] [address]- 4888 May, [facility] [place] [facility] [address] [id number] [place] [address]- 6635 May, [facility] [place] [facility] [address] [id number] [place] [address]- 3529 May, [facility] [place] [facility] [address] [id number] [place] [address]- 0809 Apr, [facility] [place] [facility] [address] [id number] [address]- 5419 Apr, [facility] [place] [facility] [address] [id number] [place] [address]- 5892 Apr, [facility] [place] [facility] [address] [id number] [place] [address]- 9266 Apr, [facility] [place] [facility] [address] [id number] [place] [address]- 2025 Apr, [facility] [place] [facility] [address] [id number] [address]- 7396 Mar, [facility] [place] [facility] [address] [id number] [place] [address]- 3902 Mar, [facility] [place] [facility] [address] [id number] [place] [address]- 9366 Feb, [facility] [place] [facility] [address] [id number] [place] [address]- 6073 Feb, [facility] [place] [facility] [address] [id number] [place] [address]- 9530 Feb, [facility] [place] [facility] [address] [id number] [place] [address]- 9442 Feb, [facility] [place] [facility] [address] [id number] [place] [address]- 7964 Jan, [facility] [place] [facility] [address] [id number] [place] [address]- 0178 Jan, [facility] [place] [facility] [address] [id number] [place] [address]- 7608 Dec, [facility] [place] [facility] [address] [id number] [place] [address]- 7030 Dec, [facility] [place] [facility] [address] [id number] [place] [address]- 2695 Nov, [facility] [place] [facility] [address] [id number] [place] [address]- 8903 Nov, [facility] [place] [facility] [address] [id number] [place] [address]- 9524 Oct, [facility] [place] [facility] [address] [id number] [place] [address]- 1361 Oct, [facility] [place] [facility] [address] [id number] [place] [address]- 1322 Oct, [facility] [place] [facility] [address] [id number] [place] [address]- 7324 Oct, [facility] [place] [facility] [address] [id number] [place] [address]- 4478 08 Aug, 2013 [facility] [address] [id number] [place] [address]- 2706 Aug, [facility] [place] [facility] [address] [id number] [place] [address] 2546 Aug, [facility] [address] [id number] [place] [address]- 5423 Aug, [facility] [place] [facility] [address] [id number] [place] [address]- 0851 May, [facility] [address] [id number] [place] [address]- 6430 May, [facility] [address] [id number] [place] [address]- 9981 May, [facility] [address] [id number] [place] [address]- 8110 May, [facility] [address] [id number] [place] [address]- 4270 May, [facility] [address] [id number] [place] [address]- 4239 May, [facility] [address] [id number] [place] [address]- 4408 May, [facility] [address] [id number] [place] [address]- 3719 Apr, [facility] [address] [id number] [place] [address]- 6243 Apr, [facility] [place] [facility] [address] [id number] [place] [address]- 0506 Apr, [facility] [place] [facility] [address] [id number] [place] [address]- 2546 Apr, [facility] [place] [facility] [address] [id number] [place] [address]- 4650 Apr, [facility] [address] [id number] [place] [address]- 0966 Apr, [facility] [place] [facility] [address] [id number] [place] [address]- 7886 Apr, [facility] [place] [facility] [address] [id number] [place] [address]- 9742 Apr, [facility] [place] [facility] [address] [id number] [place] [address]- 6015 Apr, [facility] [place] [facility] [address] [id number] [place] 4410 Apr, [facility] [place] [facility] [address] [id number] [place] [address]- 6542 Mar, [facility] [place] [facility] [address] [id number] [place] [address]- 4300 Mar, [facility] [place] [facility] [address] [id number] [address]- 0652 Mar, [facility] [place] [facility] [address] [id number] [place] [address]- 3015 Mar, [facility] [place] [facility] [address] [id number] [address]- 6938 Feb, [facility] [place] [facility] [address] [id number], [place] [address]- 6236 Feb, [facility] [place] [facility] [address] [id number], [place] [address]- 3448 Jan, [facility] [place] [facility] [address] [id number] [place] [address]- 9568 23 Jan, 2013 [facility] [place] [facility] [address] [id number] [address] 19 Jan, 2013 [facility] [place] [facility] [address] [id number] [place] [address] Dec, [facility] [place] [facility] [address] [id number] [place] [address] Dec, [facility] [address] [id number] [place] [address] Nov, [facility] [place] [facility] [address] [id number] [place] [address] Oct, [facility] [address] [id number] [place] [address] Oct, [facility] [place] [facility] [address] [id number] [place] [address] Oct, [facility] [address] [id number] [place] [address] September, [facility] [place] [facility] [address] [id number] [place] [address] September, [facility] [address] [id number] [place] [address] Jun, [facility] [place] [facility] [address] [id number] [place] [address] Jun, [facility] [address] [id number] [place] [address] Jun, [facility] [address] [id number] [place] [address] Jun, [facility] [place] [facility] [address] [id number] [place] [address] May, [facility] [place] [facility] [address] [id number] [place] [address] May, [facility] [place] [facility] [address] [id number] [place] [address] May, [facility] [place] [facility] [address] [id number] [place] [address] May, [facility] [place] [facility] [address] [id number] [place] [address] Apr, [facility] [place] [facility] [address] [id number] [place] [address] Apr, [facility] [place] [facility] [address] [id number] [place] [address]- [address] Apr, [facility] [place] [facility] [address] [id number] [place] [address] Apr, [facility] [place] [facility] [address] [id number] [place] [address] Apr, [facility] [place] [facility] [address] [id number] [place] [address] Apr, [facility] [place] [facility] [address] [id number] [place] [address] Mar, [facility] [place] [facility] [address] [facility] [id number] [place] [address] Mar, [facility] [place] [facility] [address] [id number] [place] [address] Mar, [facility] [place] [facility] [address] [id number] [place] [address] Mar, [facility] [place] [facility] [address] [facility] [id number], [place] [address] Feb, [facility] [place] [facility] [address] [facility] [id number], [place] [address] Feb, [facility] [place] [facility] [address] [id number], [place] [address] Feb, [facility] [place] [facility] [address] [id number], [place] [address] Feb, [facility] [place] [facility] [address] [id number], [place] [address] 10 Feb, 2012 [facility] [place] [facility] [address] [facility] [id number], [place] [address] 17 Jan, 2012 [facility] [place] [facility] [address] [id number], [place] [address] 13 Jan, 2012 [facility] [place] [facility] [address] [id number] [place] [address] 12 Jan, 2012 [facility] [place] [facility] [address] [id number] [place] [address]- [address] 12 Jan, 2012 [facility] [place] [facility] [address] [id number] [place] [address] 11 Jan, 2012 [facility] [place] [facility] [address] [id number] [place] [address]- [address] 14 Dec, 2011 [facility] [place] [facility] [address] [id number] [place] [address]68 17 Nov, 2011 [facility] [place] [facility] [address] [id number] [place] [address] 13 Nov, 2011 [facility] [place] [facility] [address] [id number] [place] [address] Nov, [facility] [place] [facility] [address] [id number] [place] [address] Nov, [facility] [place] [facility] [address] [id number] [place] [address]- [address] 09 Nov, 2011 [facility] [place] [facility] [address] [id number] [place] [address]45 14 Oct, 2011 [facility] [place] [facility] [address] [id number] [place] [address]- [address] 16 Sep, 2011 [facility] [place] [facility] [address] [id number] [place] [address]- [address] September, [facility] [place] [facility] [address] [id number] [place] [address]- [address] 13 Aug, 2011 [facility] [place] [facility] [address] [id number] [place] [address] 12 Aug, 2011 [facility] [place] [facility] [address] [id number] [place] [address] 12 Aug, 2011 [facility] [place] [facility] [address] [id number] [place] [address] 11 Aug, 2011 [facility] [address] [id number] [place] [address] 16 Jul, 2011 [facility] [place] [facility] [address] [id number] [place] [address] 09 Jul, 2011 [facility] [place] [facility] [address] [id number] [place] [address] 10 Jun, 2011 [facility] [place] [facility] [address] [id number] [place] [address] 07 Jun, 2011 [facility] [place] [facility] [address] [id number] [place] [address] 06 Jun, 2011 [facility] [address] [id number] [place] [address] Jun, [facility] [address] [id number] [place] [address] May, [facility] [place] [facility] [address] [id number] [place] [address] May, [facility] [place] [facility] [address] [id number] [place] [address] May, [facility] [place] [facility] [address] [id number] [place] [address] May, [facility] [place] [facility] [address] [id number] [place] [address] May, [facility] [place] [facility] [address] [id number] [place] [address] May, [facility] [place] [facility] [address] [id number] [place] [address] Apr, [facility] [place] [facility] [address] [id number] [place] [address] Apr, [facility] [place] [facility] [address] [id number] [place] [address] Apr, [facility] [address] [id number] [place] [address] Apr, [facility] [place] [facility] [address] [id number] [place] [address] Apr, [facility] [place] [facility] [address] [id number] [place] [address] 9867 Apr, [facility] [place] [facility] [address] [id number] [place] [address] 7942 Apr, [facility] [place] [facility] [address] [id number] [place] [address] Apr, [facility] [place] [facility] [address] [id number] [place] [address] Mar, [facility] [place] [facility] [address] [id number] [place] [address] Mar, [facility] [place] [facility] [address] [id number] [place] [address] Mar, [facility] [place] [facility] [address] [id number] [place] [address] September, [facility] [place] [facility] [address] [id number] [place] [address] September, [facility] [place] [facility] [address] [id number] [place] [address] Jul, [facility] [place] [facility] [address] [id number] [place] [address] 10 Jun, 2010 [facility] [place] [facility] [address] [id number] [place] [address] Apr, [facility] [place] [facility] [address] [id number] [place] [address] Apr, [facility] [place] [facility] [address] [id number] [place] [address] 119[address] Apr, [facility] [place] [facility] [id number] [address] [address], [address] [facility] [id number] [place] [address] Mar, [facility] [id number] [place] [address]361 04 [address], [address] [facility] [id number] [place] [address]- [address] Feb, [facility] [id number] [place] [address] Jan, [facility] [id number] [place] [address]77 Apr, [facility] [id number] [place] [address] Apr, [facility] [id number] [place] [address] Mar, [facility] [id number] [place] [address]159 Mar, [facility] [id number] [place] [address] Feb, [facility] [id number] [address] Jun, IMMUNIZATIONS No Known Immunizations SOCIAL HISTORY Never Assessed REASON FOR VISIT f/u foot pain----DBennettRN PLAN OF CARE VITAL SIGNS Height 68 in 2017-11-24 Weight 128.5 lbs 2017-11-24 Temperature 98.2 degrees Fahrenheit 2017-11-24 Heart Rate 100 bpm 2017-11-24 Respiratory Rate 20 2017-11-24 BMI 19.54 kg/m2 2017-11-24 Blood pressure systolic 122 mmHg 2017-11-24 Blood pressure diastolic 70 mmHg 2017-11-24 MEDICATIONS Medication Instructions Dosage Frequency Start Date End Date Duration Status Tramadol HCl 50 mg Orally every 6 hrs 1 tablet 6h 28 days Active Prevacid 30 mg TAKE ONE CAPSULE BY MOUTH TWICE A DAY 30 Active PredniSONE 20 mg Orally Once a day 2 tablets 24h Nov, Nov, 05 days Active Allopurinol 100 mg Orally Once a day 1 tablet 24h Oct, Jan, 30 day(s) Active Aspir-Low 81 MG Orally Once a day 1 tablet 24h Active Cyclobenzaprine HCl 10 mg Orally Three times a day 1 tablet as needed 8h 90 days Active Norvasc 5 TAKE ONE TABLET BY MOUTH DAILY 30 Active Lasix 40 mg Orally Once a day 1 tablet 24h May, 30 day(s) Active Flonase 50 MCG/DOSE Nasally Once a day 2 spray in each nostril 24h Active Pravastatin Sodium 40 TAKE ONE TABLET BY MOUTH AT BEDTIME, AVOID GRAPEFRUIT OR GRAPEFRUIT JUICE 90 Active Reglan 10 mg TAKE ONE TABLET BY MOUTH TWICE A DAY 45 Active Zithromax Z-Jarvis 250 MG Orally Once a day 2 tablets on the first day, then 1 tablet daily for 4 days 24h Nov, Nov, 5 day(s) Active Lisinopril 10 TAKE ONE TABLET BY MOUTH DAILY 90 Active Plavix 75 TAKE ONE TABLET BY MOUTH DAILY 90 Active Hydrocodone-Acetaminophen 10-325 MG Orally every 4 hrs 1 tablet 4h Oct, 28 days Active Klor-Con 10 10 meq Orally Once a day 1 tablet with food 24h Active RESULTS No Results PROCEDURES Procedure Date Ordered Result Body Site X-RAY EXAM CHEST 2 VIEWS November 24, 2017 [facility] VISIT ESTABLISHED PATIENT November 24, 2017 LAB [facility] November 24, 2017 VENIPUNCT, ROUTINE* November 24, 2017 INSTRUCTIONS MEDICATIONS ADMINISTERED No Known Medications MEDICAL [...]
--- OUTSIDE RECORDS SUMMARY | 2018-02-27 14:58 | XMS REPORT ---
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 Active 96861382 Problem Venous insufficiency I87.2 Active 70210212 Problem Hyperlipidemia E78.5 Active 70946759 Problem Peripheral vascular disease I73.9 Active 269880497 Problem Cigarette nicotine dependence without complication F17.210 Active 16591613 ALLERGIES Substance Reaction Event Type Date Status Celebrex stomach upset Drug Allergy Oct, Active Baclofen Unknown Drug Allergy Oct, Active Zocor 20 Mg Tablet Unknown Non Drug Allergy Oct, Active Neurontin 300 Mg Capsule Unknown Non Drug Allergy Oct, Active ENCOUNTERS Encounter Location Date Diagnosis [facility] [id number], [place] [address] Dec, Back pain M54.9 ; Hyponatremia E87.1 ; 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 ; Peripheral vascular disease I73.9 ; Cigarette nicotine dependence without complication F17.210 ; Coronary artery disease I25.10 and GERD (gastroesophageal reflux disease) K21.9 [facility] [id number], [place] [address] 9[address] 16 Dec, 2017 Back pain M54.9 [facility] [id number] [place] [address] 79494- 5537 Nov, Back pain M54.9 [facility] [id number] [place] [address] 94763- 8543 Nov, Back pain M54.9 [facility] [id number] [place] [address] 48026- 9436 Nov, Bronchitis J40 [facility] [id number] [place] [address] 07160- 5094 Oct, Back pain M54.9 [facility] [id number] [place] [address] 82685 2540 Oct, 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 [facility] [id number] [place] [address] 40360- 9744 September, halfway current use of opiate analgesic Z79.891 ; Medication monitoring encounter Z51.81 ; Back pain M54.9 ; Weakness R53.1 ; Cigarette nicotine dependence without complication F17.210 ; Coronary artery disease I25.10 and Peripheral vascular disease I73.9 [facility] [id number] [place] [address] 93311- 4029 September, Back pain M54.9 [facility] [id number] [place] [address] 50735- 6296 Aug, Back pain M54.9 [facility] [id number] [place] [address] 88096- 3759 Aug, [facility] [id number] [place] [address] 76546- 1181 Aug, Back pain M54.9 [facility] [id number] [place] [address] 04091- 4141 Jul, Back pain M54.9 [facility] [id number] [place] [address] 77109- 9105 Jun, [facility] [id number] [place] [address] 92933- 5164 Jun, Back pain M54.9 [facility] [id number] [place] [address] 90728- 6236 May, Back pain M54.9 [facility] [id number] [place] [address] 41762- 7046 May, Back pain M54.9 [facility] [address] 75353- 2796 May, Hypertension I10 ; Back pain M54.9 and Cigarette nicotine dependence without complication F17.210 [facility] [id number] [place] [address] 85785- 6719 Apr, Back pain M54.9 [facility] [id number] [place] [address] 40035- 6518 Apr, Hypokalemia E87.6 [facility] [address] 31985- 3469 Apr, Hypokalemia E87.6 [facility] [id number] [place] [address] 00369- 7496 Mar, Back pain M54.9 [facility] [id number] [place] [address] 25806- 4401 Mar, [facility] [id number] [place] [address] 24563- 6747 Mar, Back pain M54.9 ; Coronary artery disease I25.10 and Acute nasopharyngitis J00 [facility] [id number] [place] [address] 18681- 4586 Mar, Back pain M54.9 [facility] [id number] [place] [address] 38375- 6431 Feb, Back pain M54.9 [facility] [id number] [place] [address] 41649- 6851 Jan, Anemia due to blood loss D50.0 and Hypokalemia E87.6 [facility] [id number] [place] [address] 59637- 1502 18 Jan, 2017 [facility] [address] [facility] [id number] [place] [address] 96632 2546 11 Jan, 2017 Hypokalemia E87.6 [facility] [id number] [place] [address] 50937 2546 08 Jan, 2017 Back pain M54.9 [facility] [id number] [place] [address] 96347 2546 08 Jan, 2017 [facility] [id number] [place] [address] 62447- 7146 14 Dec, 2016 Hypertension I10 and Back pain M54.9 [facility] [id number] [place] [address] 97068- 5951 29 Oct, 2016 Back pain M54.9 [facility] [id number] [place] [address] 48995- 2646 15 Oct, 2016 Back pain M54.9 [facility] [id number] [place] [address] 32694- 6122 07 Oct, 2016 Back pain M54.9 [facility] [id number] [place] [address] 63199- 6285 September, Back pain M54.9 [facility] [id number] [place] [address] 32089- 7135 12 Aug, 2016 Back pain M54.9 [facility] [id number] [place] [address] 86763- 2553 11 Aug, 2016 Epistaxis R04.0 [facility] [id number] [place] [address] 28754- 9516 15 Jul, 2016 [facility] [id number] [place] [address] 15229- 4204 14 Jul, 2016 Back pain M54.9 [facility] [id number] [place] [address] 58749- 7552 15 Jun, 2016 Back pain M54.9 [facility] [id number] [place] [address] 26506- 1234 09 Jun, 2016 Localized edema R60.0 [facility] [id number] [place] [address] 71030- 5000 Jun, [facility] [address] 86400- 9461 Jun, Anemia due to blood loss D50.0 ; Venous insufficiency I87.2 ; Hypertension I10 and Plantar fasciitis M72.2 [address] [id number] [place] [address] 10845- 4303 May, Back pain M54.9 [place] [id number] [place] [address] 74068- 0314 May, [place] [id number] [place] [address] 18121- 0417 May, watermaster use 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.899 ; Anemia due to blood loss D50.0 and Venous insufficiency I87.2 [place] [id number] [place] [address] 24881- 7443 May, Back pain M54.9 [facility] [id number] [place] [address] 58362- 8594 May, Anemia due to blood loss D50.0 [facility] [id number] [place] [address] 00251- 1445 May, Localized edema R60.0 [address] [place] [address] 75151- 4477 May, Blood loss anemia D50.0 ; Localized edema R60.0 and Coronary artery disease I25.10 [facility] [id number] [place] [address] 88093- 9932 Apr, Blood loss anemia D50.0 [facility] [id number] [place] [address] 26995- 3138 Apr, Epistaxis R04.0 ; Anemia, unspecified type D64.9 and Hyponatremia E87.1 [facility] [id number] [place] [address] 96064- 2351 Apr, [facility] [address] 27413- 9742 Apr, Back pain M54.9 [facility] [id number] [place] [address] 17490- 4330 Apr, Back pain M54.9 [facility] [id number] [place] [address] 57287- 0966 Mar, [facility] [id number] [place] [address] 46640- 5840 Mar, Back pain M54.9 [facility] [id number] [place] [address] 18690- 0549 Feb, [facility] [id number] [place] [address] 19904- 1686 Feb, [facility] [id number] [place] [address] 47505- 7994 Jan, [facility] [id number] [place] [address] 24517- 1638 Dec, [facility] [id number] [place] [address] 86991- 4253 Dec, [facility] [id number] [place] [address] 46859- 7986 Dec, Arthritis, 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 and Leg weakness, bilateral M62.81 [facility] [id number] [place] [address] 68343- 7960 Dec, [facility] [id number] [place] [address] 17254- 6125 Oct, Back pain M54.9 [facility] [id number] [place] [address] 69884- 5923 Oct, Back pain M54.9 [facility] [id number] [place] [address] 19711- 1478 September, Back pain M54.9 [facility] [id number] [place] [address] 80317- 7058 Aug, Back pain M54.9 [facility] [id number] [place] [address] 10391- 3839 Aug, Back pain M54.9 [facility] [id number] [place] [address] 95953- 3143 Jul, [facility] [id number] [place] [address] 50773- 3266 Jul, Back pain M54.9 [facility] [id number] [place] [address] 95225- 0135 Jun, [facility] [id number] [place] [address] 75829- 0893 Jun, Back pain M54.9 [facility] [address] [place] [address] 44240- 0486 May, halfway use of drug Z79.899 ; Back pain M54.9 ; Hyperlipidemia E78.5 ; Hypertension I10 and GERD (gastroesophageal reflux disease) K21.9 [facility] [address] [place] [address] 26591- 7989 May, Arthritis M19.90 [facility] [id number] [place] [address] 03523- 2780 Apr, [facility] [id number] [place] [address] 65781- 3178 Apr, [facility] [id number] [place] [address] 16012- 4519 Mar, [facility] [address], [place] [address]- 2549 Mar, [facility] [id number] [place] [address] 914115- 0065 Feb, Encounter for immunization Z23 ; Arthritis M19.90 ; Contusion of right hip S70.01XA and Coronary artery disease I25.10 [facility] [id number] [place] [address] 37655- 2764 Jan, [facility] [id number] [place] [address] 21251- 4973 Jan, [facility] [id number] [place] [address] 11890- 7323 Dec, Acute bronchitis 466.0 and Unspecified arthropathy, site unspecified 716.90 [facility] [id number] [place] [address] 36009- 3974 Dec, [facility] [address] [address]- 7081 Dec, [facility] [id number] [address]- 8922 Nov, [facility] [address] [address]- 9632 Nov, [facility] [address] [address]- 9249 Nov, [facility] [address], [place] [address]- 5176 Oct, [facility] [id number] [address]- 6152 Oct, [facility] [address], [place] [address]- 4356 Oct, Unspecified arthropathy, site unspecified 716.90 [facility] [id number] [place] [address], [place] [address]- 3710 Oct, [facility] [place] [facility] [address] [id number] [place] [address]- 9889 September, [facility] [place] [facility] [address] [id number] [place] [address]- 0936 September, [facility] [place] [facility] [address] [id number] [place] [address]- 1801 Aug, [facility] [place] [facility] [address] [id number] [place] [address]- 2479 Aug, [facility] [place] [facility] [address] [id number] [place] [address]- 4858 Jul, [facility] [place] [facility] [address] [id number] [place] [address]- 3115 Jul, [facility] [place] [facility] [address] [id number] [place] [address]- 4840 Jul, [facility] [place] [facility] [address] [facility] [id number] [place] [address]- 2299 Jul, [facility] [place] [facility] [address] [id number] [place] [address]- 2524 Jul, [facility] [place] [facility] [address] [facility] [id number] [place] [address]- 3534 Jul, [facility] [place] [facility] [address] [id number] [place] [address]- 1864 Jun, [facility] [place] [facility] [address] [id number] [place] [address]- 1357 Jun, [facility] [place] [facility] [address] [id number] [place] [address]- 5353 Jun, [facility] [place] [facility] [address] [facility] [id number] [place] [address]- 0706 Jun, [facility] [place] [facility] [address] [facility] [id number] [place] [address]- 8992 May, [facility] [place] [facility] [address] [id number] [place] [address]- 2364 May, [facility] [place] [facility] [address] [id number] [place] [address]- 5085 May, [facility] [place] [facility] [address] [id number] [place] [address]- 8248 May, [facility] [place] [facility] [address] [id number] [place] [address]- 9445 May, [facility] [place] [facility] [address] [id number] [place] [address]- 0404 May, [facility] [place] [facility] [address] [id number] [place] [address]- 0741 May, [facility] [place] [facility] [address] [id number] [place] [address]- 9698 May, [facility] [place] [facility] [address] [id number] [place] [address]- 5916 May, [facility] [place] [facility] [address] [id number] [place] [address]- 0715 May, [facility] [place] [facility] [address] [id number] [place] [address]- 0601 May, [facility] [place] [facility] [address] [id number] [place] [address]- 1132 Apr, [facility] [place] [facility] [address] [id number] [address]- 2006 Apr, [facility] [place] [facility] [address] [id number] [place] [address]- 0717 Apr, [facility] [place] [facility] [address] [id number] [place] [address]- 7526 Apr, [facility] [place] [facility] [address] [id number] [place] [address]- 3564 Apr, [facility] [place] [facility] [address] [id number], [place] [address]- 4240 Mar, [facility] [place] [facility] [address] [id number] [place] [address]- 1040 Mar, [facility] [place] [facility] [address] [id number] [place] [address]- 1228 Feb, [facility] [place] [facility] [address] [id number] [place] [address]- 8252 Feb, [facility] [place] [facility] [address] [id number] [place] [address]- 9359 Feb, [facility] [place] [facility] [address] [id number] [place] [address]- 5385 Feb, [facility] [place] [facility] [address] [id number] [place] [address]- 0192 Jan, [facility] [place] [facility] [address] [id number] [place] [address]- 7392 Jan, [facility] [place] [facility] [address] [id number] [place] [address]- 7109 Dec, [facility] [place] [facility] [address] [id number] [place] [address]- 5425 Dec, [facility] [place] [facility] [address] [id number] [place] [address]- 4971 Nov, [facility] [place] [facility] [address] [id number] [place] [address]- 1948 Nov, [facility] [place] [facility] [address] [id number] [place] [address]- 8716 Oct, [facility] [place] [facility] [address] [id number] [place] [address]- 5141 Oct, [facility] [place] [facility] [address] [id number] [place] [address]- 8952 Oct, [facility] [place] [facility] [address] [id number] [place] [address]- 9922 Oct, [facility] [place] [facility] [address] [id number] [place] [address]- 2852 08 Aug, 2013 [facility] [address] [id number] [place] [address]- 9333 Aug, [facility] [place] [facility] [address] [id number] [place] [address] 2546 Aug, [facility] [address] [id number] [place] [address]- 5075 Aug, [facility] [place] [facility] [address] [id number] [place] [address]- 6700 May, [facility] [address] [id number] [place] [address]- 4271 May, [facility] [address] [id number] [place] [address]- 4108 May, [facility] [address] [id number] [place] [address]- 4072 May, [facility] [address] [id number] [place] [address]- 5776 May, [facility] [address] [id number] [place] [address]- 0509 May, [facility] [address] [id number] [place] [address]- 3499 May, [facility] [address] [id number] [place] [address]- 0070 Apr, [facility] [address] [id number] [place] [address]- 4842 Apr, [facility] [place] [facility] [address] [id number] [place] [address]- 1076 Apr, [facility] [place] [facility] [address] [id number] [place] [address] Apr[facility] [place] [facility] [address] [id number] [place] [address] Apr, [facility] [address] [id number] [place] [address] Apr, [facility] [place] [facility] [address] [id number] [place] [address] Apr, [facility] [place] [facility] [address] [id number] [place] [address] Apr, [facility] [place] [facility] [address] [id number] [place] [address] Apr, [facility] [place] [facility] [address] [id number] [place] [address] Apr, [facility] [place] [facility] [address] [id number] [place] [address] Mar, [facility] [place] [facility] [address] [id number] [place] [address] Mar, [facility] [place] [facility] [address] [id number], [place] [address] Mar, [facility] [place] [facility] [address] [id number] [place] [address] Mar, [facility] [place] [facility] [address] [id number], [place] [address] Feb, [facility] [place] [facility] [address] [id number], [place] [address] Feb, [facility] [place] [facility] [address] [id number], [place] [address] Jan, [facility] [place] [facility] [address] [id number] [place] [address] 23 Jan, 2013 [facility] [place] [facility] [address] [id number], [place] [address] 19 Jan, 2013 [facility] [place] [facility] [address] [id number] [place] [address] Dec, [facility] [place] [facility] [address] [id number] [place] [address] Dec, [facility] [address] [id number] [place] [address] Nov, [facility] [place] [facility] [address] [id number] [place] [address] Oct, [facility] [address] [id number] [place] [address] Oct, [facility] [place] [facility] [address] [id number] [place] [address] Oct, [facility] [address] [id number] [place] [address] September, [facility] [place] [facility] [address] [id number] [place] [address] September, [facility] [address] [id number] [place] [address] Jun, [facility] [place] [facility] [address] [id number] [place] [address] Jun, [facility] [address] [id number] [place] [address] Jun, [facility] [address] [id number] [place] [address] Jun, [facility] [place] [facility] [address] [id number] [place] [address] May, [facility] [place] [facility] [address] [id number] [place] [address] May, [facility] [place] [facility] [address] [id number] [place] [address] May, [facility] [place] [facility] [address] [id number] [place] [address] May, [facility] [place] [facility] [address] [id number] [place] [address] Apr, [facility] [place] [facility] [address] [id number] [place] [address] Apr, [facility] [place] [facility] [address] [id number] [place] [address] Apr, [facility] [place] [facility] [address] [id number] [place] [address] Apr, [facility] [place] [facility] [address] [id number] [place] [address] Apr, [facility] [place] [facility] [address] [id number] [place] [address] Apr, [facility] [place] [facility] [address] [id number] [place] [address] Mar, [facility] [place] [facility] [address] [facility] [id number] [place] [address] Mar, [facility] [place] [facility] [address] [id number] [place] [address] Mar, [facility] [place] [facility] [address] [id number] [place] [address] Mar, [facility] [place] [facility] [address] [facility] [id number], [place] [address] Feb, [facility] [place] [facility] [address] [facility] [id number], [place] [address] Feb, [facility] [place] [facility] [address] [id number], [place] [address] Feb, [facility] [place] [facility] [address] [id number], [place] [address] Feb, [facility] [place] [facility] [address] [id number], [place] [address] 10 Feb, 2012 [facility] [place] [facility] [address] [facility] [facility] [id number] [address] 17 Jan, 2012 [facility] [place] [facility] [address] [id number], [place] [address] 13 Jan, 2012 [facility] [place] [facility] [address] [id number] [place] [address] 12 Jan, 2012 [facility] [place] [facility] [address] [id number] [place] [address] 12 Jan, 2012 [facility] [place] [facility] [address] [id number] [place] [address] 11 Jan, 2012 [facility] [place] [facility] [address] [id number] [place] [address] 14 Dec, 2011 [facility] [place] [facility] [address] [id number] [place] [address] 17 Nov, 2011 [facility] [place] [facility] [address] [id number] [place] [address] 13 Nov, 2011 [facility] [place] [facility] [address] [id number] [place] [address] Nov, [facility] [place] [facility] [address] [id number] [place] [address] Nov, [facility] [place] [facility] [address] [id number] [place] [address] 09 Nov, 2011 [facility] [place] [facility] [address] [id number] [place] [address] 14 Oct, 2011 [facility] [place] [facility] [address] [id number] [place] [address] 16 Sep, 2011 [facility] [place] [facility] [address] [id number] [place] [address] September, [facility] [place] [facility] [address] [id number] [place] [address] 13 Aug, 2011 [facility] [place] [facility] [address] [id number] [place] [address] 42[address] 12 Aug, 2011 [facility] [place] [facility] [address] [id number] [place] [address] 4[address] 12 Aug, 2011 [facility] [place] [facility] [address] [id number] [place] [address] 2183 11 Aug, 2011 [facility] [address] [id number] [place] [address] 7070 16 Jul, 2011 [facility] [place] [facility] [address] [id number] [place] [address]36 09 Jul, 2011 [facility] [place] [facility] [address] [id number] [place] [address] 7746 10 Jun, 2011 [facility] [place] [facility] [address] [id number] [place] [address] 7[address] 07 Jun, 2011 [facility] [place] [facility] [address] [id number] [place] [address] 2382 06 Jun, 2011 [facility] [address] [id number] [place] [address] 9674 Jun, [facility] [address] [id number] [place] [address] May, [facility] [place] [facility] [address] [id number] [place] [address] May, [facility] [place] [facility] [address] [id number] [place] [address] May, [facility] [place] [facility] [address] [id number] [place] [address] May, [facility] [place] [facility] [address] [id number] [place] [address] May, [facility] [place] [facility] [address] [id number] [place] [address] May, [facility] [place] [facility] [address] [id number] [place] [address] Apr, [facility] [place] [facility] [address] [id number] [place] [address] Apr, [facility] [place] [facility] [address] [id number] [place] [address] 9[address] Apr, [facility] [address] [id number] [place] [address] Apr, [facility] [place] [facility] [address] [id number] [place] [address] 1441 Apr, [facility] [place] [facility] [address] [id number] [place] [address]- 1451 Apr, [facility] [place] [facility] [address] [id number] [place] [address]- 68[address] Apr, [facility] [place] [facility] [address] [id number] [place] [address] Apr, [facility] [place] [facility] [address] [id number] [place] [address] Mar, [facility] [place] [facility] [address] [id number] [place] [address] 64[address] Mar, [facility] [place] [facility] [address] [id number] [place] [address] 4[address] Mar, [facility] [place] [facility] [address] [id number] [place] [address] 36[address] September, [facility] [place] [facility] [address] [id number] [place] [address] September, [facility] [place] [facility] [address] [id number] [place] [address] 26[address] Jul, [facility] [place] [facility] [address] [id number] [place] [address]- [address]855 10 Jun, 2010 [facility] [place] [facility] [address] [id number] [place] [address] Apr, [facility] [place] [facility] [address] [id number] [place] [address]- 6[address] Apr, [facility] [place] [facility] [address] [id number] [place] [address] 9643 Apr, [facility] [place] [facility] [id number], [place] [address] 18 Mar, 2010 [facility] [id number], [place] [address] Mar, [facility] [id number], [place] [address] Mar, [facility] [id number], [place] [address] Feb, [facility] [id number], [place] [address] Jan, [facility] [id number] [place] [address] Apr, [facility] [id number] [place] [address]- [address] Apr, [facility] [id number] [place] [address] 39[address] Mar, [facility] [id number], [place] [address] Mar, [facility] [id number] [place] [address] Feb, [facility] [id number], [place] [address] Jun, IMMUNIZATIONS No Known Immunizations SOCIAL HISTORY Never Assessed REASON FOR VISIT Pain (acute) foot, PT reports about a week ago a rash started on his left foot. Pt notes he tried some triple antibiotic on it but it continued to spread and darken. PT denies severe pain just tender to the touch. -Jose [place] [employer] VITAL SIGNS Height 68 in 2017-10-26 Weight 131.0 lbs 2017-10-26 Temperature 97.9 degrees Fahrenheit 2017-10-26 Heart Rate 96 bpm 2017-10-26 Respiratory Rate 20 2017-10-26 Oximetry on room air:97 % 2017-10-26 BMI 19.92 kg/m2 2017-10-26 Blood pressure systolic 115 mmHg 2017-10-26 Blood pressure diastolic 68 mmHg 2017-10-26 MEDICATIONS Medication Instructions Dosage Frequency Start Date End Date Duration Status Aspir-Low 81 MG Orally Once a day 1 tablet 24h Active Prevacid 30 mg TAKE ONE CAPSULE BY MOUTH TWICE A DAY 30 Active Hydrocodone-Acetaminophen 10-325 MG Orally every 4 hrs 1 tablet 4h September, Oct, 28 days Active Flonase 50 MCG/DOSE Nasally Once a day 2 spray in each nostril 24h Active Klor-Con 10 10 meq Orally Once a day 1 tablet with food 24h Active Cyclobenzaprine HCl 10 mg Orally Three times a day 1 tablet as needed 8h 90 days Active Plavix 75 TAKE ONE TABLET BY MOUTH DAILY 90 Active Lisinopril 10 TAKE ONE TABLET BY MOUTH DAILY 90 Active Pravastatin Sodium 40 TAKE ONE TABLET BY MOUTH AT BEDTIME, AVOID GRAPEFRUIT OR GRAPEFRUIT JUICE 90 Active Reglan 10 mg TAKE ONE TABLET BY MOUTH TWICE A DAY 45 Active PredniSONE 20 mg Orally Once a day 2 tablets 24h Oct, Oct, 05 days Active Tramadol HCl 50 mg Orally every 6 hrs 1 tablet 6h Oct, 28 days Active Lasix 40 mg Orally Once a day 1 tablet 24h May, 30 day(s) Active Allopurinol 100 mg Orally Once a day 1 tablet 24h Oct, Jan, 30 day(s) Active Norvasc 5 TAKE ONE TABLET BY MOUTH DAILY 30 Active RESULTS No Results PROCEDURES Procedure Date Ordered Result Body Site [facility] VISIT ESTABLISHED PATIENT October 26, 2017 INSTRUCTIONS MEDICATIONS ADMINISTERED No Known Medications [...]
--- OUTSIDE RECORDS SUMMARY | 2018-02-27 14:59 | XMS REPORT ---
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 Active 74973216 Problem Peripheral vascular disease I73.9 Active 331916739 Problem Hypertension I10 Active 54836756 Problem GERD (gastroesophageal reflux disease) K21.9 Active 466210231 Problem Cigarette nicotine dependence without complication F17.210 Active 31340777 Problem Venous insufficiency I87.2 Active 08767439 ALLERGIES Substance Reaction Event Type Date Status Celebrex stomach upset Drug Allergy September, Active Baclofen Unknown Drug Allergy September, Active Zocor 20 Mg Tablet Unknown Non Drug Allergy September, Active Neurontin 300 Mg Capsule Unknown Non Drug Allergy September, Active ENCOUNTERS Encounter Location Date Diagnosis [facility] [id number] [address] Dec, [facility] [id number] [place] [address] 42023- 9730 Dec, Back pain M54.9 [facility] [id number] [address] 6748 Nov, Back pain M54.9 [facility] [id number] [place] [address] 99016- 5663 17 Nov, 2017 Back pain M54.9 [facility] [address] [address] 4[address] Nov, Bronchitis J40 [facility] [id number] [place] [address] 54592- 3881 Oct, Back pain M54.9 [facility] [id number] [place] [address] 10240- 9673 Oct, 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 [facility] [id number] [place] [address] 49880- 9147 September, intermediate designer current use of opiate analgesic Z79.891 ; Medication monitoring encounter Z51.81 ; Back pain M54.9 ; Weakness R53.1 ; Cigarette nicotine dependence without complication F17.210 ; Coronary artery disease I25.10 and Peripheral vascular disease I73.9 [facility] [id number] [place] [address] 57833- 3817 September, Back pain M54.9 [facility] [id number] [place] [address] 36733- 4885 Aug, Back pain M54.9 [facility] [id number] [place] [address] 38198- 8315 Aug, [facility] [id number] [place] [address] 61639- 5941 Aug, Back pain M54.9 [facility] [id number] [place] [address] 51729- 3546 Jul, Back pain M54.9 [facility] [id number] [place] [address] 92750- 4233 Jun, [facility] [id number] [place] [address] 78149- 7212 Jun, Back pain M54.9 [facility] [id number] [place] [address] 91650- 1748 May, Back pain M54.9 [facility] [id number] [place] [address] 58041- 4569 May, Back pain M54.9 [facility] [id number] [place] [address] 05711- 4295 May, Hypertension I10 ; Back pain M54.9 and Cigarette nicotine dependence without complication F17.210 [facility] [id number] [place] [address] 29249- 9165 Apr, Back pain M54.9 [facility] [address] 59158- 3771 Apr, Hypokalemia E87.6 [facility] [address] 54503- 4464 Apr, Hypokalemia E87.6 [facility] [id number] [place] [address] 06145- 7286 Mar, Back pain M54.9 [facility] [address] 65944- 8699 Mar, [facility] [id number] [place] [address] 15357- 1957 Mar, Back pain M54.9 ; Coronary artery disease I25.10 and Acute nasopharyngitis J00 [facility] [id number] [place] [address] 81908- 0575 Mar, Back pain M54.9 [facility] [id number] [place] [address] 78042- 6940 Feb, Back pain M54.9 [facility] [id number] [place] [address] 68594- 1069 Jan, Anemia due to blood loss D50.0 and Hypokalemia E87.6 [facility] [id number] [place] [address] 57950- 0241 18 Jan, 2017 [facility] [id number] [place] [address] 04247- 1402 Jan, Hypokalemia E87.6 [facility] [address] [address]- 9640 08 Jan, 2017 Back pain M54.9 [facility] [id number] [place] [address] 25011 2546 08 Jan, 2017 [facility] [id number] [place] [address] 04038- 5402 14 Dec, 2016 Hypertension I10 and Back pain M54.9 [facility] [id number] [place] [address] 55789 2546 29 Oct, 2016 Back pain M54.9 [facility] [id number] [place] [address] 20962- 9620 15 Oct, 2016 Back pain M54.9 [facility] [id number] [place] [address] 15619- 4963 07 Oct, 2016 Back pain M54.9 [facility] [id number] [place] [address] 17188- 8192 September, Back pain M54.9 [facility] [id number] [place] [address] 33011- 4714 Aug, Back pain M54.9 [facility] [id number] [place] [address] 03862- 0723 Aug, Epistaxis R04.0 [facility] [id number] [place] [address] 01603- 8933 15 Jul, 2016 [facility] [id number] [place] [address] 64045- 8851 14 Jul, 2016 Back pain M54.9 [facility] [id number] [place] [address] 93974- 9336 15 Jun, 2016 Back pain M54.9 [facility] [id number] [place] [address] 01660- 7786 09 Jun, 2016 Localized edema R60.0 [facility] [id number] [place] [address] 93422- 7174 Jun, [place] [address] 17323- 1348 Jun, Anemia due to blood loss D50.0 ; Venous insufficiency I87.2 ; Hypertension I10 and Plantar fasciitis M72.2 [place] [address] 57584- 3016 May, Back pain M54.9 [place] [address] 92481- 5356 May, [place] [address] 05747- 3082 May, intermediate designer use of drug Z79.899 ; Anemia due to blood loss D50.0 and Venous insufficiency I87.2 [place] [address] 09398- 6670 May, Back pain M54.9 [place] [address] 63928- 9713 May, Anemia due to blood loss D50.0 [place] [address] 05784- 5652 May, Localized edema R60.0 [place] [id number] [place] [address] 87790- 1633 May, Blood loss anemia D50.0 ; Localized edema R60.0 and Coronary artery disease I25.10 [place] [id number] [place] [address] 95358- 0475 Apr, Blood loss anemia D50.0 [place] [address] 22152- 3824 Apr, Epistaxis R04.0 ; Anemia, unspecified type D64.9 and Hyponatremia E87.1 [place] [address] 27728- 2439 Apr, [facility] [address] [facility] [id number] [address]- 3970 Apr, Back pain M54.9 [facility] [address] [facility] [id number] [address]- 6306 Apr, Back pain M54.9 [facility] [address] [facility] [id number] [place] [address] 28083- 8376 Mar, [facility] [address] [facility] [id number] [place] [address] 74541- 4717 Mar, Back pain M54.9 [facility] [id number] [place] [address] 27263- 1136 Feb, [facility] [id number] [place] [address] 96666- 6955 Feb, [facility] [id number] [place] [address] 73134- 7153 Jan, [facility] [id number] [place] [address] 12380- 1579 Dec, [facility] [id number] [place] [address] 52595- 1976 Dec, [facility] [id number] [place] [address] 42316- 1414 Dec, Arthritis, 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 and Leg weakness, bilateral M62.81 [facility] [address] [facility] [id number] [address]- 7436 Dec, [facility] [address] [facility] [id number] [place] [address] 54793- 0092 Oct, Back pain M54.9 [facility] [address] [facility] [id number], [place] [address]- 2546 Oct, Back pain M54.9 [facility] [id number] [place] [address] 49864- 7538 September, Back pain M54.9 [facility] [address] [address]- 3146 Aug, Back pain M54.9 [facility] [address] [address] 2546 06 Aug, 2015 Back pain M54.9 [facility] [id number] [place] [address] 00006- 7236 14 Jul, 2015 [facility] [id number] [place] [address] 52041 2546 07 Jul, 2015 Back pain M54.9 [facility] [id number] [place] [address] 94435- 3116 16 Jun, 2015 [facility] [id number] [place] [address] 49292- 9706 Jun, Back pain M54.9 [facility] [id number] [place] [address] 12836- 9572 15 May, 2015 snf use of drug Z79.899 ; Back pain M54.9 ; Hyperlipidemia E78.5 ; Hypertension I10 and GERD (gastroesophageal reflux disease) K21.9 [facility] [address] [address]- 8615 13 May, 2015 Arthritis M19.90 [facility] [address] [address]- 1036 Apr, [facility] [id number] [place] [address] 84873- 0368 Apr, [facility] [id number] [place] [address] 12111- 5396 Mar, [facility] [id number] [place] [address] 29091- 2916 Mar, [facility] [id number] [place] [address] 95671- 2899 Feb, Arthritis M19.90 ; Encounter for immunization Z23 ; Contusion of right hip S70.01XA and Coronary artery disease I25.10 [facility] [address] [address]- 2486 Jan, [facility] [id number] [address]- 5820 Jan, [facility] [id number] [place] [address] 92926- 8492 Dec, Acute bronchitis 466.0 and Unspecified arthropathy, site unspecified 716.90 [facility] [id number] [address]- 2076 Dec, [facility] [id number] [address]- 4468 Dec, [facility] [id number] [address]- 0793 Nov, [facility] [address], [place] [address]- 9168 Nov, [facility] [address] [address]- 2635 Nov, [facility] [address], [place] [address]- 2040 Oct, [facility] [address] [address]- 0155 Oct, [facility] [address] [address]- 1161 Oct, Unspecified arthropathy, site unspecified 716.90 [facility] [address] 2399 Oct, [facility] [address] [address]- 2211 September, [facility] [id number] [address] 4769 September, [facility] [place] [facility] [address] [id number] [place] [address]- 7935 Aug, [facility] [place] [facility] [address] [id number] [place] [address]- 9866 Aug, [facility] [place] [facility] [address] [id number] [place] [address]- 3039 Jul, [facility] [place] [facility] [address] [id number] [place] [address]- 0944 Jul, [facility] [place] [facility] [address] [id number] [place] [address]- 9193 Jul, [facility] [place] [facility] [address] [id number] [place] [address]- 0926 Jul, [facility] [place] [facility] [address] [id number] [place] [address]- 9843 Jul, [facility] [place] [facility] [address] [id number] [place] [address]- 9559 Jul, [facility] [place] [facility] [address] [id number] [place] [address]- 4629 Jun, [facility] [place] [facility] [address] [id number] [place] [address]- 7736 Jun, [facility] [place] [facility] [address] [id number], [place] [address]- 9150 Jun, [facility] [place] [facility] [address] [id number], [place] [address]- 1560 Jun, [facility] [place] [facility] [address] [id number], [place] [address]- 6062 May, [facility] [place] [facility] [address] [id number], [place] [address]- 1296 May, [facility] [place] [facility] [address] [id number], [place] [address]- 0754 May, [facility] [place] [facility] [address] [id number] [place] [address]- 4343 May, [facility] [address] [id number] [place] [address]- 7759 May, [facility] [place] [facility] [address] [id number] [place] [address]- 1406 May, [facility] [address] [id number] [place] [address]- 2347 May, [facility] [place] [facility] [address] [id number] [place] [address]- 3651 May, [facility] [address] [id number] [place] [address]- 7362 May, [facility] [address] [id number] [place] [address]- 0214 May, [facility] [address] [id number] [place] [address]- 9366 May, [facility] [address] [id number] [place] [address]- 3717 Apr, [facility] [address] [id number] [place] [address]- 6463 Apr, [facility] [address] [id number] [place] [address]- 7515 Apr, [facility] [place] [facility] [address] [id number] [place] [address]- 7710 Apr, [facility] [place] [facility] [address] [id number] [place] [address]- 8669 08 Apr, 2014 [facility] [place] [facility] [address] [id number] [place] [address]- 0552 Mar, [facility] [place] [facility] [address] [id number] [place] [address]- 2546 10 Mar, 2014 [facility] [place] [facility] [address] [id number] [place] 4135 Feb, [facility] [place] [facility] [address] [id number] [place] [address]- 7668 Feb, [facility] [place] [facility] [address] [id number] [place] [address]- 9462 Feb, [facility] [place] [facility] [address] [id number] [place] 1245 Feb, [facility] [place] [facility] [address] [id number] [place] [address]- 6770 Jan, [facility] [place] [facility] [address] [id number] [place] [address]- 1003 Jan, [facility] [place] [facility] [address] [id number] [place] [address]- 4413 Dec, [facility] [place] [facility] [address] [id number] [place] [address]- 3511 Dec, [facility] [place] [facility] [address] [id number] [place] [address]- 5575 Nov, [facility] [place] [facility] [address] [id number] [place] [address]- 0572 Nov, [facility] [place] [facility] [address] [id number] [place] [address]- 5122 Oct, [facility] [place] [facility] [address] [id number] [place] [address]- 6424 Oct, [facility] [place] [facility] [address] [id number], [place] [address]- 5075 Oct, [facility] [place] [facility] [address] [id number] [place] [address]- 8163 Oct, [facility] [place] [facility] [address] [id number] [place] 4790 Aug, [facility] [place] [facility] [address] [id number] [place] 2753 Aug, [facility] [place] [facility] [address] [id number], [place] [address]- 5032 07 Aug, 2013 [facility] [address] [id number] [place] [address]- 0026 Aug, [facility] [address] [id number], [place] [address]- 9886 May, [facility] [address] [facility] [id number] [place] [address]- 1871 May, [facility] [address] [id number] [place] [address]- 3168 May, [facility] [address] [id number] [place] [address]- 9009 May, [facility] [address] [id number] [place] [address]- 8363 May, [facility] [address] [facility] [id number], [place] [address]- 5344 May, [facility] [address] [id number] [place] [address]- 7780 May, [facility] [address] [id number] [place] [address]- 2141 Apr, [facility] [address] [facility] [id number] [place] [address]- 4450 Apr, [facility] [address] [id number], [place] [address]- 6050 Apr, [facility] [place] [facility] [address] [id number], [place] [address]- 3485 Apr, [facility] [place] [facility] [address] [id number] [place] [address]- 5881 Apr, [facility] [place] [facility] [address] [facility] [id number], [place] [address]- 1584 Apr, [facility] [place] [facility] [address] [facility] [id number], [place] [address]- 9489 Apr, [facility] [place] [facility] [address] [id number] [place] [address]- 2542 05 Apr, 2013 [facility] [place] [facility] [address] [id number] [place] [address]- 4805 Apr, [facility] [place] [facility] [address] [id number] [place] [address]- 2546 Apr, [facility] [place] [facility] [address] [id number] [place] [address]- 2666 Mar, [facility] [place] [facility] [address] [id number] [place] [address]- 8140 Mar, [facility] [place] [facility] [address] [id number] [place] [address]- 4636 Mar, [facility] [place] [facility] [address] [id number] [place] [address]- 8176 Mar, [facility] [place] [facility] [address] [id number] [place] [address] Feb, [facility] [place] [facility] [address] [id number] [place] [address] Feb, [facility] [place] [facility] [address] [id number] [place] [address] Jan, [facility] [place] [facility] [address] [id number] [place] [address] Jan, [facility] [place] [facility] [address] [id number] [place] [address] Jan, [facility] [place] [facility] [address] [id number] [place] [address] Dec, [facility] [place] [facility] [address] [id number] [place] [address] Dec, [facility] [place] [facility] [address] [id number] [place] [address] Nov, [facility] [place] [facility] [address] [id number] [place] [address] Oct, [facility] [address] [id number] [place] [address] Oct, [facility] [place] [facility] [address] [id number] [place] [address] Oct, [facility] [place] [facility] [address] [id number] [place] [address] September, [facility] [place] [facility] [address] [id number] [place] [address] September, [facility] [place] [facility] [address] [id number] [place] [address] Jun, [facility] [place] [facility] [address] [id number] [place] [address] Jun, [facility] [place] [facility] [address] [id number] [place] [address] Jun, [facility] [place] [facility] [address] [id number] [place] [address] Jun, [facility] [place] [facility] [address] [id number] [place] [address] May, [facility] [place] [facility] [address] [id number] [place] [address] May, [facility] [place] [facility] [address] [id number] [place] [address] May, [facility] [place] [facility] [address] [id number] [place] [address] May, [facility] [place] [facility] [address] [id number] [place] [address] Apr, [facility] [place] [facility] [address] [id number] [place] [address] Apr, [facility] [place] [facility] [address] [id number] [place] [address] Apr, [facility] [place] [facility] [address] [id number] [place] [address] Apr, [facility] [place] [facility] [address] [id number] [place] [address]- [address] Apr, [facility] [place] [facility] [address] [id number] [place] [address] Apr, [facility] [place] [facility] [address] [id number] [place] [address] Mar, [facility] [place] [facility] [address] [id number] [place] [address] Mar, [facility] [place] [facility] [address] [id number] [place] [address] Mar, [facility] [place] [facility] [address] [id number] [place] [address] Mar, [facility] [place] [facility] [address] [id number] [place] [address] Feb, [facility] [place] [facility] [address] [id number] [place] [address] Feb, [facility] [place] [facility] [address] [id number] [place] [address] Feb, [facility] [place] [facility] [address] [facility] [id number] [place] [address] Feb, [facility] [place] [facility] [address] [id number] [place] [address] 10 Feb, 2012 [facility] [place] [facility] [address] [id number] [place] [address]- [address] 17 Sep2011 [facility] [place] [facility] [address] [id number] [place] [address] 13 Sep2011 [facility] [place] [facility] [address] [id number] [place] [address] 12 Jan, 2012 [facility] [place] [facility] [address] [id number] [place] [address] Jan, [facility] [place] [facility] [address] [id number] [place] [address] Jan, [facility] [place] [facility] [address] [id number] [place] [address] Dec, [facility] [place] [facility] [address] [id number] [place] [address] 17 Nov, 2011 [facility] [place] [facility] [address] [id number] [place] [address] Nov, [facility] [place] [facility] [address] [id number] [place] [address] Nov, [facility] [place] [facility] [address] [id number] [place] [address] Nov, [facility] [place] [facility] [address] [id number] [place] [address] Nov, [facility] [place] [facility] [address] [id number] [place] [address] Oct, [facility] [place] [facility] [address] [id number] [place] [address] September, [facility] [place] [facility] [address] [id number] [place] [address] September, [facility] [place] [facility] [address] [id number] [place] [address] Aug, [facility] [place] [facility] [address] [id number] [place] [address] Aug, [facility] [place] [facility] [address] [id number] [place] [address] Aug, [facility] [place] [facility] [address] [id number] [place] [address] Aug, [facility] [place] [facility] [address] [id number] [place] [address] 16 Jul, 2011 [facility] [place] [facility] [address] [id number] [address] Jul, [facility] [address] [id number] [place] [address] 10 Jun, 2011 [facility] [place] [facility] [address] [id number] [place] [address] 07 Jun, 2011 [facility] [place] [facility] [address] [id number] [place] [address] Jun, [facility] [place] [facility] [address] [id number] [place] [address] Jun, [facility] [address] [id number] [place] [address] May, [facility] [address] [id number] [place] [address] May, [facility] [address] [id number] [place] [address] May, [facility] [address] [id number] [place] [address] May, [facility] [address] [id number] [place] [address] May, [facility] [address] [facility] [id number] [place] [address] May, [facility] [address] [id number] [place] [address] Apr, [facility] [place] [facility] [address] [id number] [place] [address] Apr, [facility] [place] [facility] [address] [id number] [place] [address] Apr, [facility] [place] [facility] [address] [id number] [place] [address] Apr, [facility] [address] [id number] [place] [address] Apr, [facility] [place] [facility] [address] [id number] [place] [address] Apr, [facility] [address] [id number] [place] [address] Apr, [facility] [address] [id number] [place] [address] Apr, [facility] [address] [id number] [place] [address] Mar, [facility] [address] [id number] [place] [address] Mar, [facility] [address] [id number] [place] [address] Mar, [facility] [address] [id number] [place] [address] September, [facility] [address] [id number] [place] [address] September, [facility] [address] [id number] [place] [address] Jul, [facility] [address] [id number] [place] [address] Jun, [facility] [address] [id number] [place] [address] [address] Apr, [facility] [address] [id number] [place] [address] Apr, [facility] [place] [facility] [address] [id number] [place] [address] Apr, [facility] [place] [facility] [address] [id number] [place] [address] Mar, [facility] [place] [facility] [address] [id number] [place] [address] Mar, [facility] [place] [facility] [address] [id number], [place] [address] 04 Mar, 2010 [facility] [address] [id number] [address] Feb, [facility] [id number] [address] Jan, [facility] [id number] [address] Apr, [facility] [id number] [address] Apr, [facility] [id number] [address] Mar, [facility] [id number] [address] Mar, [facility] [id number], [place] [address] Feb, [facility] [id number], [place] [address] Jun, IMMUNIZATIONS No Known Immunizations SOCIAL HISTORY Never Assessed REASON FOR VISIT Weakness and PT says last time he was here he was only given 7 days of medications-[facility] [place] [facility] Activity Details Follow Up 3 Months Reason: VITAL SIGNS Height 68 in 2017-10-06 Weight 130.4 lbs 2017-10-06 Temperature 97.8 degrees Fahrenheit 2017-10-06 Heart Rate 67 bpm 2017-10-06 Respiratory Rate 20 2017-10-06 Oximetry 93 % 2017-10-06 BMI 19.83 kg/m2 2017-10-06 Blood pressure systolic 110 mmHg 2017-10-06 Blood pressure diastolic 68 mmHg 2017-10-06 MEDICATIONS Medication Instructions Dosage Frequency Start Date End Date Duration Status Reglan 10 mg TAKE ONE TABLET BY MOUTH TWICE A DAY 45 Active Lisinopril 10 TAKE ONE TABLET BY MOUTH DAILY 90 Active Flonase 50 MCG/DOSE Nasally Once a day 2 spray in each nostril 24h Active Prevacid 30 mg TAKE ONE CAPSULE BY MOUTH TWICE A DAY 30 Active Tramadol HCl 50 mg Orally every 6 hrs 1 tablet 6h Oct, 28 days Active Norvasc 5 TAKE ONE TABLET BY MOUTH DAILY 30 Active Klor-Con 10 10 meq Orally Once a day 1 tablet with food 24h Active Plavix 75 TAKE ONE TABLET BY MOUTH DAILY 90 Active Cyclobenzaprine HCl 10 mg Orally Three times a day 1 tablet as needed 8h 90 days Active Lasix 40 mg Orally Once a day 1 tablet 24h May, 30 day(s) Active Pravastatin Sodium 40 TAKE ONE TABLET BY MOUTH AT BEDTIME, AVOID GRAPEFRUIT OR GRAPEFRUIT JUICE 90 Active Hydrocodone-Acetaminophen 10-325 MG Orally every 4 hrs 1 tablet 4h September, Oct, 28 days Active Aspir-Low 81 MG Orally Once a day 1 tablet 24h Active RESULTS No Results PROCEDURES Procedure Date Ordered Result Body Site [facility], 2017 DRUG SCREENING TRAMADOL October 06, 2017 [facility] VISIT ESTABLISHED PATIENT October 06, 2017 MIKE, ROUTINE* October 06, 2017 INSTRUCTIONS MEDICATIONS ADMINISTERED No Known Medications [...]
--- OUTSIDE RECORDS SUMMARY | 2018-02-27 14:59 | XMS REPORT ---
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 Active 38677580 Problem Peripheral vascular disease I73.9 Active 565354004 Problem Hypertension I10 Active 80754701 Problem GERD (gastroesophageal reflux disease) K21.9 Active 260473664 Problem Cigarette nicotine dependence without complication F17.210 Active 37769492 Problem Venous insufficiency I87.2 Active 31493594 ALLERGIES No Information ENCOUNTERS Encounter Location Date Diagnosis [place] [id number] [place] [address] 68587- 9179 Dec, [facility] [id number] [place] [address] 59260- 1177 18 Nov, 2017 Back pain M54.9 [facility] [id number] [place] [address] 51726- 5363 17 Nov, 2017 Back pain M54.9 [facility] [id number] [place] [address] 98314- 5658 Nov, Bronchitis J40 [facility] [id number] [place] [address] 26581- 4364 22 Oct, 2017 Back pain M54.9 [facility] [id number] [place] [address] 54180- 4817 13 Oct, 2017 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 [facility] [id number] [place] [address] 06721- 9073 September, 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 ; Medication monitoring encounter Z51.81 ; Back pain M54.9 ; Weakness R53.1 ; Cigarette nicotine dependence without complication F17.210 ; Coronary artery disease I25.10 and Peripheral vascular disease I73.9 [facility] [address] 32093- 1872 September, Back pain M54.9 [facility] [address] 59539- 8372 Aug, Back pain M54.9 [facility] [address] 73781- 8786 Aug, [facility] [address] 69730- 4485 Aug, Back pain M54.9 [facility] [address] 29698- 8192 Jul, Back pain M54.9 [facility] [address] 12650- 6540 Jun, [facility] [id number] [place] [address] 55289- 5920 Jun, Back pain M54.9 [facility] [id number] [place] [address] 78646 2544 May, Back pain M54.9 [facility] [id number] [place] [address] 43671- 2608 May, Back pain M54.9 [facility] [id number] [place] [address] 08187- 1996 May, Hypertension I10 ; Back pain M54.9 and Cigarette nicotine dependence without complication F17.210 [facility] [id number] [place] [address] 21554- 3357 Apr, Back pain M54.9 [facility] [id number] [place] [address] 27826- 0498 Apr, Hypokalemia E87.6 [facility] [id number] [place] [address] 29483- 9855 Apr, Hypokalemia E87.6 [facility] [address] 09229- 9125 Mar, Back pain M54.9 [facility] [address] 81353- 5587 Mar, [facility] [address] 40148- 1131 Mar, Back pain M54.9 ; Coronary artery disease I25.10 and Acute nasopharyngitis J00 [facility] [address] 85109- 3925 Mar, Back pain M54.9 [facility] [id number] [place] [address] 64414- 2492 Feb, Back pain M54.9 [facility] [id number] [place] [address] 20410- 4545 Jan, Anemia due to blood loss D50.0 and Hypokalemia E87.6 [facility] [id number] [place] [address] 53396- 5349 18 Jan, 2017 [facility] [id number] [place] [address] 29517- 2120 11 Jan, 2017 Hypokalemia E87.6 [facility] [id number] [place] [address] 75700- 0156 08 Jan, 2017 Back pain M54.9 [facility] [id number] [place] [address] 10019- 2909 Jan, [facility] [id number] [place] [address] 99719- 9269 Dec, Hypertension I10 and Back pain M54.9 [facility] [address] [place] [address] 89131- 6993 29 Oct, 2016 Back pain M54.9 [facility] [address] [place] [address] 78475- 6557 15 Oct, 2016 Back pain M54.9 [facility] [id number] [place] [address] 19444- 1759 07 Oct, 2016 Back pain M54.9 [facility] [id number] [place] [address] 37561- 2317 September, Back pain M54.9 [facility] [id number] [place] [address] 45579- 2595 Aug, Back pain M54.9 [facility] [id number] [place] [address] 47791- 6466 Aug, Epistaxis R04.0 [facility] [id number] [place] [address] 22253- 8703 Jul, [facility] [id number] [place] [address] 86973- 7444 Jul, Back pain M54.9 [facility] [id number] [place] [address] 65113- 4065 15 Jun, 2016 Back pain M54.9 [facility] [id number] [place] [address] 63613- 6947 Jun, Localized edema R60.0 [facility] [id number] [place] [address] 72983- 0651 Jun, [facility] [id number] [place] [address] 54900- 5206 06 Jun, 2016 Anemia due to blood loss D50.0 ; Venous insufficiency I87.2 ; Hypertension I10 and Plantar fasciitis M72.2 [facility] [id number] [place] [address] 77513- 5737 May, Back pain M54.9 [place] [id number] [place] [address] 64515- 2070 May, [place] [address] [place] [id number] [place] [address] 26020- 1969 May, 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 ; Anemia due to blood loss D50.0 and Venous insufficiency I87.2 [place] [address] [id number] [place] [address] 73249- 5265 May, Back pain M54.9 [place] [address] [place] [id number] [place] [address] 28209- 8356 May, Anemia due to blood loss D50.0 [place] [address] [place] [id number] [place] [address] 42232- 0426 May, Localized edema R60.0 [place] [address] [place] [id number] [place] [address] 24290- 2317 May, Blood loss anemia D50.0 ; Localized edema R60.0 and Coronary artery disease I25.10 [place] [address] [place] [id number] [place] [address] 85079- 9941 Apr, Blood loss anemia D50.0 [place] [address] [place] [id number] [place] [address] 46028- 8059 Apr, Epistaxis R04.0 ; Anemia, unspecified type D64.9 and Hyponatremia E87.1 [place] [address] [place] [id number] [place] [address] 73602- 3945 Apr, [place] [address] [place] [id number] [place] [address] 54363- 1523 Apr, Back pain M54.9 [place] [address] [place] [address] 08751- 4199 Apr, Back pain M54.9 [place] [address] [facility] [id number] [address]- 5779 Mar, [facility] [address] [facility] [id number] [place] [address] 36785- 6227 Mar, Back pain M54.9 [facility] [address] [facility] [id number] [place] [address]- 2446 Feb, [facility] [address] [facility] [id number] [place] [address] 79988- 9389 Feb, [facility] [address] [facility] [id number] [place] [address] 23480- 3887 Jan, [facility] [address] [facility] [id number] [place] [address] 93972- 2099 Dec, [facility] [address] [facility] [id number] [place] [address] 42312- 8885 Dec, [facility] [address] [id number] [place] [address] 89497- 4763 Dec, Arthritis, 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 and Leg weakness, bilateral M62.81 [facility] [address] [place] [address] 33780- 3760 Dec, [facility] [address] [facility] [id number] [place] [address]- 1501 Oct, Back pain M54.9 [facility] [address] [place] [address] 20219- 2158 Oct, Back pain M54.9 [facility] [address] [facility] [id number] [place] [address]- 9143 September, Back pain M54.9 [facility] [address] [facility] [id number] [place] [address] 76124- 7879 Aug, Back pain M54.9 [facility] [address] [facility] [id number] [place] [address]- 6743 Aug, Back pain M54.9 [facility] [address] [address]- 3730 14 Jul, 2015 [facility] [id number] [place] [address] 01917- 9883 07 Jul, 2015 Back pain M54.9 [facility] [id number] [place] [address] 37265- 2890 16 Jun, 2015 [facility] [id number] [place] [address] 46938- 7436 03 Jun, 2015 Back pain M54.9 [facility] [id number] [place] [address] 88209- 9285 15 May, 2015 [facility] use of drug Z79.899 ; Back pain M54.9 ; Hyperlipidemia E78.5 ; Hypertension I10 and GERD (gastroesophageal reflux disease) K21.9 [place] [address] [place] [id number] [place] [address] 31612- 6871 13 May, 2015 Arthritis M19.90 [facility] [id number] [place] [address] 98937- 3152 16 Apr, 2015 [place] [address] [place] [id number] [place] [address] 39898- 7847 Apr, [facility] [id number] [place] [address] 59768- 0833 18 Mar, 2015 [place] [address] [place] [place] [id number] [place] [address] 08120- 2982 Mar, [facility] [id number] [place] [address] 78144- 0104 Feb, Arthritis M19.90 ; Encounter for immunization Z23 ; Contusion of right hip S70.01XA and Coronary artery disease I25.10 [facility] [address] [address]- 1862 Jan, [facility] [id number] [place] [address] 57239- 6382 Jan, [facility] [address] [id number] [place] [address]- 2787 Dec, Acute bronchitis 466.0 and Unspecified arthropathy, site unspecified 716.90 [facility] [address] [id number] [place] [address]- 6958 Dec, [facility] [address] [id number] [place] [address]- 6723 Dec, [facility] [address] [id number] [place] [address]- 7163 Nov, [facility] [address] [id number] [place] [address]- 2290 Nov, [facility] [address] [id number] [place] [address]- 3647 Nov, [facility] [address] [facility] [id number] [place] [address]- 0999 Oct, [facility] [address] [id number] [place] [address]- 0916 Oct, [facility] [address] [id number] [place] [address]- 1184 Oct, Unspecified arthropathy, site unspecified 716.90 [facility] [address] [facility] [id number] [place] [address]- 0389 Oct, [facility] [address] [facility] [id number] [place] [address]- 6266 September, [facility] [address] [facility] [id number] [place] [address]- 4936 September, [facility] [address] [facility] [id number] [place] [address]- 0118 Aug, [facility] [address] [id number] [place] [address]- 4903 Aug, [facility] [address] [facility] [id number] [place] [address]- 4560 Jul, [facility] [place] [facility] [address] [id number] [place] [address]- 5832 Jul, [facility] [place] [facility] [address] [id number] [place] [address]- 6787 Jul, [facility] [place] [facility] [address] [id number] [place] [address]- 5943 Jul, [facility] [place] [facility] [address] [id number] [place] [address]- 3834 Jul, [facility] [place] [facility] [address] [id number] [place] [address]- 0855 Jul, [facility] [place] [facility] [address] [id number] [place] [address]- 8754 Jun, [facility] [place] [facility] [address] [id number] [place] [address]- 6138 Jun, [facility] [place] [facility] [address] [id number] [place] [address]- 1035 Jun, [facility] [place] [facility] [address] [id number] [place] [address]- 6448 Jun, [facility] [place] [facility] [address] [id number] [place] [address]- 9064 May, [facility] [place] [facility] [address] [id number] [place] [address]- 8797 May, [facility] [place] [facility] [address] [id number] [place] [address]- 6349 May, [facility] [place] [facility] [address] [id number] [place] [address]- 6115 May, [facility] [place] [facility] [address] [id number] [place] [address]- 3185 May, [facility] [place] [facility] [address] [id number] [place] [address]- 4122 May, [facility] [place] [facility] [address] [id number] [place] [address]- 2747 May, [facility] [place] [facility] [address] [id number] [place] [address]- 9235 May, [facility] [place] [facility] [address] [id number] [place] [address]- 9726 May, [facility] [place] [facility] [address] [id number] [place] [address]- 3975 May, [facility] [place] [facility] [address] [id number] [place] [address]- 8453 May, [facility] [place] [facility] [address] [id number] [place] [address]- 8501 Apr, [facility] [place] [facility] [address] [id number] [place] [address]- 4366 Apr, [facility] [place] [facility] [address] [id number] [place] [address]- 7331 Apr, [facility] [place] [facility] [address] [id number] [place] [address]- 5791 Apr, [facility] [place] [facility] [address] [id number] [place] [address]- 6406 Apr, [facility] [place] [facility] [address] [id number] [place] [address]- 4628 Mar, [facility] [place] [facility] [address] [id number] [place] [address]- 9634 Mar, [facility] [place] [facility] [address] [id number] [place] [address]- 1282 Feb, [facility] [place] [facility] [address] [id number] [place] [address]- 9945 Feb, [facility] [place] [facility] [address] [id number] [place] [address]- 6436 Feb, [facility] [place] [facility] [address] [id number] [place] [address]- 2533 Feb, [facility] [place] [facility] [address] [id number] [place] [address]- 5583 Jan, [facility] [place] [facility] [address] [id number] [place] [address]- 9129 Jan, [facility] [place] [facility] [address] [id number] [place] [address]- 4824 Dec, [facility] [place] [facility] [address] [id number] [place] [address]- 1446 Dec, [facility] [place] [facility] [address] [id number] [place] [address]- 3545 Nov, [facility] [place] [facility] [address] [id number] [place] [address]- 7635 Nov, [facility] [place] [facility] [address] [id number] [place] [address]- 8329 Oct, [facility] [place] [facility] [address] [id number] [place] [address]- 8519 Oct, [facility] [place] [facility] [address] [id number] [place] [address]- 9972 Oct, [facility] [place] [facility] [address] [id number] [place] [address]- 7822 Oct, [facility] [place] [facility] [address] [id number] [place] [address]- 0220 Aug, [facility] [place] [facility] [address] [id number] [place] [address]- 1744 Aug, [facility] [place] [facility] [address] [id number] [place] [address]- 6037 Aug, [facility] [place] [facility] [address] [id number] [place] [address]- 0799 Aug, [facility] [place] [facility] [address] [id number] [place] [address]- 6393 May, [facility] [place] [facility] [address] [id number] [place] [address]- 2018 May, [facility] [address] [id number] [place] [address]- 6273 May, [facility] [place] [facility] [address] [id number] [place] [address]- 1692 May, [facility] [place] [facility] [address] [id number] [place] [address]- 6627 May, [facility] [place] [facility] [address] [id number] [place] [address]- 3268 May, [facility] [place] [facility] [address] [id number] [place] [address]- 2111 May, [facility] [place] [facility] [address] [id number] [place] [address]- 2314 Apr, [facility] [address] [id number] [place] [address]- 3053 Apr, [facility] [place] [facility] [address] [id number] [place] [address]- 1161 Apr, [facility] [place] [facility] [address] [id number] [place] [address]- 8623 Apr, [facility] [place] [facility] [address] [id number] [place] [address]- 0042 Apr, [facility] [place] [facility] [address] [id number] [place] [address]- 7622 Apr, [facility] [place] [facility] [address] [id number] [place] [address]- 2289 Apr, [facility] [place] [facility] [address] [id number] [place] [address]- 3590 Apr, [facility] [place] [facility] [address] [id number] [place] [address]- 7477 Apr, [facility] [place] [facility] [address] [id number] [place] [address] Apr, [facility] [place] [facility] [address] [id number] [place] [address] Mar, [facility] [place] [facility] [address] [id number] [place] [address] Mar, [facility] [place] [facility] [address] [id number] [place] [address] Mar, [facility] [place] [facility] [address] [id number] [place] [address] Mar, [facility] [place] [facility] [address] [id number] [place] [address] Feb, [facility] [place] [facility] [address] [id number] [place] [address] Feb, [facility] [place] [facility] [address] [id number] [place] [address] Jan, [facility] [place] [facility] [address] [id number] [place] [address] Jan, [facility] [place] [facility] [address] [id number] [place] [address] Jan, [facility] [place] [facility] [address] [id number] [place] [address] Dec, [facility] [place] [facility] [address] [id number] [place] [address] Dec, [facility] [place] [facility] [address] [id number] [place] [address] Nov, [facility] [place] [facility] [address] [id number] [place] [address] Oct, [facility] [place] [facility] [address] [id number] [place] [address] Oct, [facility] [place] [facility] [address] [id number] [place] [address] Oct, [facility] [place] [facility] [address] [id number] [place] [address] September, [facility] [address] [id number] [place] [address] September, [facility] [address] [id number] [place] [address] 2016 Jun, [facility] [address] [id number] [place] [address] Jun, [facility] [address] [id number] [place] [address] Jun, [facility] [address] [id number] [place] [address] Jun, [facility] [address] [id number] [place] [address] May, [facility] [address] [id number] [place] [address] May, [facility] [address] [id number] [place] [address] May, [facility] [address] [id number] [place] [address] May, [facility] [address] [id number] [place] [address] Apr, [facility] [address] [id number] [place] [address] Apr, [facility] [place] [facility] [address] [id number] [place] [address] Apr, [facility] [place] [facility] [address] [id number] [place] [address] Apr, [facility] [place] [facility] [address] [id number] [place] [address] Apr, [facility] [place] [facility] [address] [id number] [place] [address] Apr, [facility] [place] [facility] [address] [id number] [place] [address] 08 Mar, 2012 [facility] [place] [facility] [address] [id number] [place] [address] Mar, [facility] [place] [facility] [address] [id number] [place] [address] Mar, [facility] [place] [facility] [address] [id number] [place] [address] Mar, [facility] [place] [facility] [address] [id number] [place] [address] Feb, [facility] [place] [facility] [address] [id number] [place] [address] Feb, [facility] [place] [facility] [address] [id number] [place] [address] Feb, [facility] [place] [facility] [address] [id number] [place] [address] Feb, [facility] [place] [facility] [address] [id number] [place] [address]- [address] 10 Feb, 2012 [facility] [place] [facility] [address] [id number] [place] [address] 17 Jan, 2012 [facility] [place] [facility] [address] [id number] [place] [address] 13 Jan, 2012 [facility] [place] [facility] [address] [id number] [place] [address] 12 Jan, 2012 [facility] [place] [facility] [address] [id number] [place] [address] 12 Jan, 2012 [facility] [place] [facility] [address] [id number] [place] [address] 11 Jan, 2012 [facility] [place] [facility] [address] [id number] [place] [address] 14 Dec, 2011 [facility] [place] [facility] [address] [id number] [place] [address] 17 Nov, 2011 [facility] [address] [id number] [place] [address]227 13 Nov, 2011 [facility] [place] [facility] [address] [id number] [place] [address] Nov, [facility] [place] [facility] [address] [id number] [place] [address] Nov, [facility] [place] [facility] [address] [id number] [place] [address]68 Nov, [facility] [place] [facility] [address] [id number] [place] [address] 2810 14 Oct, 2011 [facility] [place] [facility] [address] [id number] [place] [address] September, [facility] [place] [facility] [address] [id number] [place] [address] September, [facility] [place] [facility] [address] [id number] [place] [address] 13 Aug, 2011 [facility] [place] [facility] [address] [id number] [place] [address] Aug, [facility] [place] [facility] [address] [id number] [place] [address] Aug, [facility] [place] [facility] [address] [id number] [place] [address] Aug, [facility] [place] [facility] [address] [id number] [place] [address]- 1136 16 Jul, 2011 [facility] [place] [facility] [address] [id number] [place] [address] Jul, [facility] [place] [facility] [address] [id number] [place] [address] 1507 10 Jun, 2011 [facility] [place] [facility] [address] [id number] [place] [address] 07 Jun, 2011 [facility] [place] [facility] [address] [id number] [place] [address] 7076 06 Jun, 2011 [facility] [address] [id number] [place] [address] Jun, [facility] [address] [id number] [place] [address] May, [facility] [address] [id number] [place] [address] 1266 May, [facility] [address] [id number] [place] [address] 7976 May, [facility] [address] [id number] [place] [address] 6087 May, [facility] [address] [id number] [place] [address] 6[address] May, [facility] [address] [id number] [place] [address] May, [facility] [address] [id number] [place] [address] 495[address] Apr, [facility] [address] [id number] [place] [address] 24 Apr, 2011 [facility] [address] [id number] [place] [address] Apr, [facility] [address] [id number] [place] [id number]46 Apr, [facility] [address] [id number] [place] [address] 2542 Apr, [facility] [address] [id number] [place] [address] 2546 16 Apr, 2011 [facility] [address] [id number] [place] [address]46 16 Apr, 2011 [facility] [address] [id number] [place] [address] 1995 Apr, [facility] [address] [id number] [place] [address] Mar, [facility] [place] [facility] [address] [id number] [place] [address] 9293 Mar, [facility] [place] [facility] [address] [id number] [place] [address]- [address] Mar, [facility] [place] [facility] [address] [id number] [place] [address]881 September, [facility] [place] [facility] [address] [id number] [place] [address] 0255 September, [facility] [place] [facility] [address] [id number] [place] [address] Jul, [facility] [place] [facility] [address] [id number] [place] [address] 10 Jun, 2010 [facility] [place] [facility] [address] [id number] [place] [address]- [address]85 Apr, [facility] [place] [facility] [address] [id number] [place] [address] Apr, [facility] [place] [facility] [address] [id number] [place] [address] Apr, [facility] [place] [facility] [address] [id number] [place] [address] Mar, [facility] [place] [facility] [address] [id number] [place] [address] 18 Mar, 2010 [facility] [place] [facility] [address] [id number] [place] [address]- 4[address] Mar, [facility] [place] [facility] [address] [id number] [place] [address] 2902 20 Feb, 2010 [facility] [place] [facility] [address] [id number] [place] [address] 14 Jan, 2010 [facility] [place] [facility] [address] [id number] [place] [address] Apr, [facility] [address] [facility] [id number] [place] [address] Apr, [facility] [address] [id number] [place] [address] Mar, [facility] [address] [facility] [id number] [place] [address] Mar, [facility] [address] [facility] [id number] [place] [address] Feb, [facility] [address] [facility] [id number] [place] [address] Jun, IMMUNIZATIONS No Known Immunizations SOCIAL HISTORY Never Assessed REASON FOR VISIT Controlled Med Refill 09/30/17 PLAN OF CARE VITAL SIGNS MEDICATIONS Medication Instructions Dosage Frequency Start Date End Date Duration Status Tramadol HCl 50 MG Orally every 6 hrs 1 tablet 6h 07 days Active Hydrocodone-Acetaminophen 10-325 MG Orally every 4 hrs 1 tablet 4h September, 07 days Active RESULTS No Results PROCEDURES No [...]
--- OUTSIDE RECORDS SUMMARY | 2018-02-27 15:00 | XMS REPORT ---
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 Active 57696087 Problem Peripheral vascular disease I73.9 Active 762748610 Problem Hypertension I10 Active 22446864 Problem GERD (gastroesophageal reflux disease) K21.9 Active 918784910 Problem Cigarette nicotine dependence without complication F17.210 Active 39265959 Problem Venous insufficiency I87.2 Active 71574757 ALLERGIES No Information ENCOUNTERS Encounter Location Date Diagnosis [place] [id number] [place] [address] 50813- 2623 Dec, [facility] [id number] [place] [address] 37889- 5577 18 Nov, 2017 Back pain M54.9 [facility] [id number] [place] [address] 12442- 1618 17 Nov, 2017 Back pain M54.9 [facility] [id number] [place] [address] 94496- 3614 12 Nov, 2017 Bronchitis J40 [facility] [id number] [place] [address] 93960- 2026 22 Oct, 2017 Back pain M54.9 [facility] [id number] [place] [address] 38583- 9036 13 Oct, 2017 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 [facility] [id number] [place] [address] 83619- 2892 September, 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 ; Medication monitoring encounter Z51.81 ; Back pain M54.9 ; Weakness R53.1 ; Cigarette nicotine dependence without complication F17.210 ; Coronary artery disease I25.10 and Peripheral vascular disease I73.9 [facility] [address] 72405- 3065 September, Back pain M54.9 [facility] [address] 60044- 8763 Aug, Back pain M54.9 [facility] [address] 91809- 6893 Aug, [facility] [address] 35820- 2542 Aug, Back pain M54.9 [facility] [address] 10142- 7305 Jul, Back pain M54.9 [facility] [address] 59071- 4237 Jun, [facility] [id number] [place] [address] 07033- 7390 Jun, Back pain M54.9 [facility] [id number] [place] [address] 15589 2547 May, Back pain M54.9 [facility] [id number] [place] [address] 61442- 3014 May, Back pain M54.9 [facility] [id number] [place] [address] 53943- 8886 May, Hypertension I10 ; Back pain M54.9 and Cigarette nicotine dependence without complication F17.210 [facility] [id number] [place] [address] 77426- 8600 Apr, Back pain M54.9 [facility] [id number] [place] [address] 53096- 3986 Apr, Hypokalemia E87.6 [facility] [id number] [place] [address] 35888- 1996 Apr, Hypokalemia E87.6 [facility] [address] 68032- 2857 Mar, Back pain M54.9 [facility] [address] 56828- 4301 Mar, [facility] [address] 43123- 8624 Mar, Back pain M54.9 ; Coronary artery disease I25.10 and Acute nasopharyngitis J00 [facility] [address] 48893- 4739 Mar, Back pain M54.9 [facility] [id number] [place] [address] 54513- 1900 Feb, Back pain M54.9 [facility] [id number] [place] [address] 04159- 4708 Jan, Anemia due to blood loss D50.0 and Hypokalemia E87.6 [facility] [id number] [place] [address] 25573- 3665 18 Jan, 2017 [facility] [id number] [place] [address] 53380- 4182 11 Jan, 2017 Hypokalemia E87.6 [facility] [id number] [place] [address] 45401- 9282 08 Jan, 2017 Back pain M54.9 [facility] [id number] [place] [address] 56676- 4261 Jan, [facility] [id number] [place] [address] 89979- 0863 Dec, Hypertension I10 and Back pain M54.9 [facility] [address] [place] [address] 34140- 4571 29 Oct, 2016 Back pain M54.9 [facility] [address] [place] [address] 43609- 6807 15 Oct, 2016 Back pain M54.9 [facility] [id number] [place] [address] 25686- 8269 07 Oct, 2016 Back pain M54.9 [facility] [id number] [place] [address] 72126- 2853 September, Back pain M54.9 [facility] [id number] [place] [address] 36497- 8491 Aug, Back pain M54.9 [facility] [id number] [place] [address] 45690- 0931 Aug, Epistaxis R04.0 [facility] [id number] [place] [address] 20500- 6603 Jul, [facility] [id number] [place] [address] 27234- 8408 Jul, Back pain M54.9 [facility] [id number] [place] [address] 81132- 6697 15 Jun, 2016 Back pain M54.9 [facility] [id number] [place] [address] 84790- 1468 Jun, Localized edema R60.0 [facility] [id number] [place] [address] 60220- 3148 Jun, [facility] [id number] [place] [address] 79401- 5160 06 Jun, 2016 Anemia due to blood loss D50.0 ; Venous insufficiency I87.2 ; Hypertension I10 and Plantar fasciitis M72.2 [facility] [id number] [place] [address] 97376- 8290 May, Back pain M54.9 [place] [address] [place] [id number] [place] [address] 42131- 3772 May, [place] [address] [place] [id number] [place] [address] 19801- 7553 May, 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 ; Anemia due to blood loss D50.0 and Venous insufficiency I87.2 [place] [address] [place] [id number] [place] [address] 93521- 9677 May, Back pain M54.9 [place] [address] [place] [id number] [place] [address] 22619- 7875 May, Anemia due to blood loss D50.0 [place] [address] [place] [id number] [place] [address] 38347- 3905 May, Localized edema R60.0 [place] [address] [place] [id number] [place] [address] 87010- 3715 May, Blood loss anemia D50.0 ; Localized edema R60.0 and Coronary artery disease I25.10 [place] [address] [place] [id number] [place] [address] 51548- 5077 Apr, Blood loss anemia D50.0 [place] [address] [place] [id number] [place] [address] 22861- 3288 Apr, Epistaxis R04.0 ; Anemia, unspecified type D64.9 and Hyponatremia E87.1 [place] [address] [place] [id number] [place] [address] 73403- 3226 Apr, [place] [address] [place] [id number] [place] [address] 13579- 7568 Apr, Back pain M54.9 [place] [id number] [place] [address] 50498- 5491 Apr, Back pain M54.9 [place] [address] [facility] [id number] [address]- 6121 Mar, [facility] [address] [facility] [id number] [place] [address] 22230- 5414 Mar, Back pain M54.9 [facility] [address] [facility] [id number] [address]- 9616 Feb, [facility] [address] [facility] [id number] [place] [address] 84652- 4818 Feb, [facility] [address] [facility] [id number] [place] [address] 33194- 3030 Jan, [facility] [address] [facility] [id number] [place] [address] 51832- 5999 Dec, [facility] [address] [facility] [id number] [place] [address] 84867- 2713 Dec, [facility] [address] [place] [id number] [place] [address] 37371- 5436 Dec, Arthritis, 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 and Leg weakness, bilateral M62.81 [facility] [address] [place] [address] 58008- 4656 Dec, [facility] [address] [facility] [id number] [address]- 5398 Oct, Back pain M54.9 [facility] [address] [place] [address] 38883- 9718 Oct, Back pain M54.9 [facility] [address] [facility] [id number] [address]- 2314 September, Back pain M54.9 [facility] [address] [facility] [id number] [place] [address] 78034- 8149 Aug, Back pain M54.9 [facility] [address] [facility] [id number] [address]- 2359 Aug, Back pain M54.9 [facility] [address] [address]- 6324 14 Jul, 2015 [facility] [address] [place] [id number] [place] [address] 59061- 4039 07 Jul, 2015 Back pain M54.9 [facility] [id number] [place] [address] 96728- 5619 16 Jun, 2015 [facility] [id number] [place] [address] 88957- 4210 03 Jun, 2015 Back pain M54.9 [facility] [id number] [place] [address] 25683- 9111 15 May, 2015 [facility] use of drug Z79.899 ; Back pain M54.9 ; Hyperlipidemia E78.5 ; Hypertension I10 and GERD (gastroesophageal reflux disease) K21.9 [place] [address] [place] [id number] [place] [address] 06605- 3765 13 May, 2015 Arthritis M19.90 [facility] [address] [id number] [place] [address] 66192- 5495 16 Apr, 2015 [place] [address] [place] [id number] [place] [address] 58957- 7281 Apr, [facility] [id number] [place] [address] 74658- 7799 18 Mar, 2015 [place] [address] [place] [id number] [place] [address] 30122- 6691 Mar, [facility] [id number] [place] [address] 54244- 1897 Feb, Arthritis M19.90 ; Encounter for immunization Z23 ; Contusion of right hip S70.01XA and Coronary artery disease I25.10 [facility] [address] [address]- 7692 Jan, [facility] [address] [id number] [place] [address] 13847- 0029 Jan, [facility] [address] [id number] [place] [address]- 1477 Dec, Acute bronchitis 466.0 and Unspecified arthropathy, site unspecified 716.90 [facility] [address] [id number] [place] [address]- 6087 Dec, [facility] [address] [id number] [place] [address]- 1764 Dec, [facility] [address] [id number] [place] [address]- 7633 Nov, [facility] [address] [id number] [place] [address]- 3465 Nov, [facility] [address] [id number] [place] [address]- 3879 Nov, [facility] [address] [facility] [id number] [place] [address]- 2707 Oct, [facility] [address] [id number] [place] [address]- 8234 Oct, [facility] [address] [id number] [place] [address]- 2620 Oct, Unspecified arthropathy, site unspecified 716.90 [facility] [address] [facility] [id number] [place] [address]- 4870 Oct, [facility] [address] [facility] [id number] [place] [address]- 7666 September, [facility] [address] [facility] [id number] [place] [address]- 3070 September, [facility] [address] [facility] [id number] [place] [address]- 4812 Aug, [facility] [address] [id number] [place] [address]- 2587 Aug, [facility] [address] [facility] [id number] [place] [address]- 7522 Jul, [facility] [place] [facility] [address] [id number] [place] [address]- 1698 Jul, [facility] [place] [facility] [address] [id number] [place] [address]- 8274 Jul, [facility] [place] [facility] [address] [id number] [place] [address]- 0032 Jul, [facility] [place] [facility] [address] [id number] [place] [address]- 5886 Jul, [facility] [place] [facility] [address] [id number] [place] [address]- 7615 Jul, [facility] [place] [facility] [address] [id number] [place] [address]- 6374 Jun, [facility] [place] [facility] [address] [id number] [place] [address]- 9235 Jun, [facility] [place] [facility] [address] [id number] [place] [address]- 9871 Jun, [facility] [place] [facility] [address] [id number] [place] [address]- 2894 Jun, [facility] [place] [facility] [address] [id number] [place] [address]- 3605 May, [facility] [place] [facility] [address] [id number] [address]- 1152 May, [facility] [place] [facility] [address] [id number] [address]- 9674 May, [facility] [place] [facility] [address] [id number] [address]- 7487 May, [facility] [place] [facility] [address] [id number] [address]- 7845 May, [facility] [place] [facility] [address] [id number] [place] [address]- 5462 May, [facility] [place] [facility] [address] [id number] [place] [address]- 1462 May, [facility] [place] [facility] [address] [id number] [place] [address]- 2838 May, [facility] [place] [facility] [address] [id number] [place] [address]- 1826 May, [facility] [place] [facility] [address] [id number] [place] [address]- 8413 May, [facility] [place] [facility] [address] [id number] [place] [address]- 0647 May, [facility] [place] [facility] [address] [id number] [place] [address]- 8091 Apr, [facility] [place] [facility] [address] [id number] [place] [address]- 2328 Apr, [facility] [place] [facility] [address] [id number] [place] [address]- 4545 Apr, [facility] [place] [facility] [address] [id number] [place] [address]- 2920 Apr, [facility] [place] [facility] [address] [id number] [place] [address]- 9619 Apr, [facility] [place] [facility] [address] [id number] [place] [address]- 7720 Mar, [facility] [place] [facility] [address] [id number] [place] [address]- 2481 Mar, [facility] [place] [facility] [address] [id number] [place] [address]- 1943 Feb, [facility] [place] [facility] [address] [id number] [place] [address]- 3730 Feb, [facility] [place] [facility] [address] [id number] [place] [address]- 2766 Feb, [facility] [place] [facility] [address] [id number] [place] [address]- 2467 Feb, [facility] [place] [facility] [address] [id number] [place] [address]- 4351 Jan, [facility] [place] [facility] [address] [id number] [place] [address]- 3920 Jan, [facility] [place] [facility] [address] [id number] [place] [address]- 2128 Dec, [facility] [place] [facility] [address] [id number] [place] [address]- 6815 Dec, [facility] [place] [facility] [address] [id number] [place] [address]- 0414 Nov, [facility] [place] [facility] [address] [id number] [place] [address]- 4249 Nov, [facility] [place] [facility] [address] [id number] [place] [address]- 0971 Oct, [facility] [place] [facility] [address] [id number] [place] [address]- 6807 Oct, [facility] [place] [facility] [address] [id number] [place] [address]- 0874 Oct, [facility] [place] [facility] [address] [id number] [place] [address]- 0319 Oct, [facility] [place] [facility] [address] [id number] [place] [address]- 7937 Aug, [facility] [place] [facility] [address] [id number] [address]- 3074 Aug, [facility] [place] [facility] [address] [id number] [place] [address]- 7451 Aug, [facility] [place] [facility] [address] [id number] [place] [address]- 7032 Aug, [facility] [place] [facility] [address] [id number] [place] [address]- 5186 May, [facility] [place] [facility] [address] [id number] [place] [address]- 1326 May, [facility] [address] [id number] [place] [address]- 2983 May, [facility] [place] [facility] [address] [id number] [place] [address]- 0725 May, [facility] [place] [facility] [address] [id number] [place] [address]- 3268 May, [facility] [place] [facility] [address] [id number] [place] [address]- 5355 May, [facility] [place] [facility] [address] [id number] [place] [address]- 7441 May, [facility] [place] [facility] [address] [id number] [place] [address]- 5017 Apr, [facility] [address] [id number] [place] [address]- 3600 Apr, [facility] [place] [facility] [address] [id number] [place] [address]- 2707 Apr, [facility] [place] [facility] [address] [id number] [place] [address]- 1812 Apr, [facility] [place] [facility] [address] [id number] [place] [address]- 2093 Apr, [facility] [place] [facility] [address] [id number] [place] [address]- 6901 Apr, [facility] [place] [facility] [address] [id number] [place] [address]- 82[address] Apr, [facility] [place] [facility] [address] [id number] [place] [address] Apr, [facility] [place] [facility] [address] [id number] [place] [address] Apr, [facility] [place] [facility] [address] [id number] [place] [address] Apr, [facility] [place] [facility] [address] [id number] [place] [address] Mar, [facility] [place] [facility] [address] [id number] [place] [address] Mar, [facility] [place] [facility] [address] [id number] [place] [address] Mar, [facility] [place] [facility] [address] [id number] [place] [address] Mar, [facility] [place] [facility] [address] [id number] [place] [address] Feb, [facility] [place] [facility] [address] [id number] [place] [address] Feb, [facility] [place] [facility] [address] [id number] [place] [address] Jan, [facility] [place] [facility] [address] [id number] [place] [address] Jan, [facility] [place] [facility] [address] [id number] [place] [address] Jan, [facility] [place] [address] [id number] [place] [address] Dec, [facility] [place] [facility] [address] [id number] [place] [address] Dec, [facility] [place] [facility] [address] [id number] [place] [address] Nov, [facility] [address] [id number] [place] [address] Oct, [facility] [address] [id number] [place] [address] Oct, [facility] [place] [facility] [address] [id number] [place] [address] Oct, [facility] [place] [facility] [address] [id number] [place] [address] September, [facility] [address] [id number] [place] [address] September, [facility] [address] [id number] [place] [address] Jun, [facility] [address] [id number] [place] [address]- [address] Jun, [facility] [address] [id number] [place] [address] Jun, [facility] [address] [id number] [place] [address] Jun, [facility] [address] [id number] [place] [address] May, [facility] [address] [id number] [place] [address] May, [facility] [address] [id number] [place] [address]- [address] May, [facility] [address] [id number] [place] [address] May, [facility] [address] [id number] [place] [address] Apr, [facility] [address] [id number] [place] [address] Apr, [facility] [address] [id number] [place] [address] Apr, [facility] [address] [id number] [place] [address]- [address] Apr, [facility] [address] [id number] [place] [address] Apr, [facility] [address] [id number] [place] [address] Apr, [facility] [address] [id number] [place] [address]- [address] 08 Mar, 2012 [facility] [address] [id number] [place] [address]- [address] Mar, [facility] [address] [id number] [place] [address]- [address] Mar, [facility] [address] [id number] [place] [address] Mar, [facility] [address] [id number] [place] [address] Feb, [facility] [address] [id number] [place] [address] Feb, [facility] [address] [id number] [place] [address]- [address] Feb, [facility] [address] [id number] [place] [address]- [address] Feb, [facility] [address] [id number] [place] [address]- [address] 10 Feb, 2012 [facility] [address] [id number] [place] [address]- [address] 17 Jan, 2012 [facility] [address] [id number] [place] [address]- [address] 13 Jan, 2012 [facility] [address] [id number] [place] [address]- [address] 12 Jan, 2012 [facility] [address] [id number] [place] [address]- [address] 12 Jan, 2012 [facility] [address] [id number] [place] [address]- [address] 11 Jan, 2012 [facility] [address] [id number] [place] [address]- [address] 14 Dec, 2011 [facility] [place] [facility] [address] [id number] [place] [address] 17 Nov, 2011 [facility] [address] [id number] [place] [address] 13 Nov, 2011 [facility] [place] [facility] [address] [id number] [place] [address] Nov, [facility] [place] [facility] [address] [id number] [place] [address] Nov, [facility] [place] [facility] [address] [id number] [place] [address] Nov, [facility] [place] [facility] [address] [id number] [place] [address] 14 Oct, 2011 [facility] [place] [facility] [address] [id number] [place] [address] September, [facility] [place] [facility] [address] [id number] [place] [address] September, [facility] [place] [facility] [address] [id number] [place] [address] 13 Aug, 2011 [facility] [place] [facility] [address] [id number] [place] [address] Aug, [facility] [place] [facility] [address] [id number] [place] [address] Aug, [facility] [place] [facility] [address] [id number] [place] [address] Aug, [facility] [place] [facility] [address] [id number] [place] [address] 16 Jul, 2011 [facility] [place] [facility] [address] [id number] [place] [address] Jul, [facility] [place] [facility] [address] [id number] [place] [address] 10 Jun, 2011 [facility] [place] [facility] [address] [id number] [place] [address] 07 Jun, 2011 [facility] [place] [facility] [address] [id number] [place] [address] 06 Jun, 2011 [facility] [address] [id number] [place] [address] Jun, [facility] [address] [id number] [place] [address] May, [facility] [place] [facility] [address] [id number] [place] [address] May, [facility] [address] [id number] [place] [address] May, [facility] [address] [id number] [place] [address] May, [facility] [address] [id number] [place] [address] May, [facility] [place] [facility] [address] [id number] [place] [address] May, [facility] [place] [facility] [address] [id number] [place] [address] Apr, [facility] [place] [facility] [address] [id number] [place] [address] 24 Apr, 2011 [facility] [place] [facility] [address] [id number] [place] [address] Apr, [facility] [place] [facility] [address] [id number] [place] [address] Apr, [facility] [address] [id number] [place] [address] Apr, [facility] [address] [id number] [place] [address]46 16 Apr, 2011 [facility] [address] [id number] [place] [address] 16 Apr, 2011 [facility] [address] [id number] [place] [address] Apr, [facility] [address] [id number] [place] [address] Mar, [facility] [place] [facility] [address] [id number] [place] [address] Mar, [facility] [place] [facility] [address] [id number] [place] [address] Mar, [facility] [place] [facility] [address] [id number] [place] [address] September, [facility] [place] [facility] [address] [id number] [place] [address] September, [facility] [place] [facility] [address] [id number] [place] [address] Jul, [facility] [place] [facility] [address] [id number] [place] [address] 10 Jun, 2010 [facility] [place] [facility] [address] [id number] [place] [address] Apr, [facility] [place] [facility] [address] [id number] [place] [address] Apr, [facility] [place] [facility] [address] [id number] [address] Apr, [facility] [place] [facility] [address] [id number], [place] [address] Mar, [facility] [place] [facility] [address] [id number], [place] [address] 18 Mar, 2010 [facility] [place] [facility] [address] [id number] [place] [address] Mar, [facility] [place] [facility] [address] [id number] [place] [address] 20 Feb, 2010 [facility] [place] [facility] [address] [id number], [place] [address] 14 Jan, 2010 [facility] [place] [facility] [address] [id number], [place] [address] Apr, [facility] [address] [id number] [address] Apr, [facility] [address] [id number] [address] Mar, [facility] [address] [id number] [address] Mar, [facility] [address] [id number] [address] Feb, [facility] [address] [facility] [id number] [address] Jun, IMMUNIZATIONS No Known Immunizations SOCIAL HISTORY Never Assessed REASON FOR VISIT Refill request PLAN OF CARE VITAL SIGNS MEDICATIONS Unknown Medications RESULTS No Results PROCEDURES No Known [...]
--- OUTSIDE RECORDS SUMMARY | 2018-02-27 15:00 | XMS REPORT ---
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 Active 88491930 Problem Peripheral vascular disease I73.9 Active 527739497 Problem Hypertension I10 Active 52285590 Problem GERD (gastroesophageal reflux disease) K21.9 Active 991282958 Problem Cigarette nicotine dependence without complication F17.210 Active 98914566 Problem Venous insufficiency I87.2 Active 73250715 ALLERGIES No Information ENCOUNTERS Encounter Location Date Diagnosis [place] [id number] [place] [address] 43151- 4667 Dec, [facility] [id number] [place] [address] 93544- 0723 18 Nov, 2017 Back pain M54.9 [facility] [id number] [place] [address] 57591- 1150 17 Nov, 2017 Back pain M54.9 [facility] [id number] [place] [address] 10558- 4883 12 Nov, 2017 Bronchitis J40 [facility] [id number] [place] [address] 45679- 4726 22 Oct, 2017 Back pain M54.9 [facility] [id number] [place] [address] 42096- 8713 13 Oct, 2017 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 [facility] [id number] [place] [address] 40830- 7540 September, long term current use of opiate analgesic Z79.891 ; Medication monitoring encounter Z51.81 ; Back pain M54.9 ; Weakness R53.1 ; Cigarette nicotine dependence without complication F17.210 ; Coronary artery disease I25.10 and Peripheral vascular disease I73.9 [facility] [address] 36037- 7448 September, Back pain M54.9 [facility] [address] 30924- 9317 Aug, Back pain M54.9 [facility] [address] 24278- 8157 Aug, [facility] [address] 65907- 7113 Aug, Back pain M54.9 [facility] [address] 89544- 1235 Jul, Back pain M54.9 [facility] [address] 29976- 9313 Jun, [facility] [id number] [place] [address] 65456- 7192 Jun, Back pain M54.9 [facility] [id number] [place] [address] 59825 2545 May, Back pain M54.9 [facility] [id number] [place] [address] 56724- 6694 May, Back pain M54.9 [facility] [id number] [place] [address] 43379- 3696 May, Hypertension I10 ; Back pain M54.9 and Cigarette nicotine dependence without complication F17.210 [facility] [id number] [place] [address] 44326- 3984 Apr, Back pain M54.9 [facility] [id number] [place] [address] 13364- 9141 Apr, Hypokalemia E87.6 [facility] [id number] [place] [address] 73318- 9973 Apr, Hypokalemia E87.6 [facility] [address] 73761- 0412 Mar, Back pain M54.9 [facility] [address] 57736- 1227 Mar, [facility] [address] 60685- 0350 Mar, Back pain M54.9 ; Coronary artery disease I25.10 and Acute nasopharyngitis J00 [facility] [address] 30606- 9255 Mar, Back pain M54.9 [facility] [id number] [place] [address] 84476- 7588 Feb, Back pain M54.9 [facility] [id number] [place] [address] 61415- 1157 Jan, Anemia due to blood loss D50.0 and Hypokalemia E87.6 [facility] [id number] [place] [address] 48565- 4922 18 Jan, 2017 [facility] [id number] [place] [address] 77515- 9840 11 Jan, 2017 Hypokalemia E87.6 [facility] [id number] [place] [address] 70903- 8157 08 Jan, 2017 Back pain M54.9 [facility] [id number] [place] [address] 29821- 3677 Jan, [facility] [id number] [place] [address] 14704- 4496 Dec, Hypertension I10 and Back pain M54.9 [facility] [id number] [place] [address] 91794- 1739 29 Oct, 2016 Back pain M54.9 [facility] [id number] [place] [address] 32870- 2494 15 Oct, 2016 Back pain M54.9 [facility] [id number] [place] [address] 76135- 6889 07 Oct, 2016 Back pain M54.9 [facility] [id number] [place] [address] 34835- 2789 September, Back pain M54.9 [facility] [id number] [place] [address] 18885- 1348 Aug, Back pain M54.9 [facility] [id number] [place] [address] 76049- 9259 Aug, Epistaxis R04.0 [facility] [id number] [place] [address] 67231- 5909 Jul, [facility] [id number] [place] [address] 27287- 2431 Jul, Back pain M54.9 [facility] [id number] [place] [address] 59282- 3378 15 Jun, 2016 Back pain M54.9 [facility] [id number] [place] [address] 70104- 8655 Jun, Localized edema R60.0 [facility] [id number] [place] [address] 34817- 3069 Jun, [facility] [id number] [place] [address] 63722- 4795 06 Jun, 2016 Anemia due to blood loss D50.0 ; Venous insufficiency I87.2 ; Hypertension I10 and Plantar fasciitis M72.2 [facility] [id number] [place] [address] 78208- 4013 May, Back pain M54.9 [place] [address] [place] [id number] [place] [address] 32750- 1506 May, [place] [address] [place] [id number] [place] [address] 15877- 0026 May, long term use of drug Z79.899 ; Anemia due to blood loss D50.0 and Venous insufficiency I87.2 [place] [address] [place] [id number] [place] [address] 05483- 4819 May, Back pain M54.9 [place] [address] [place] [id number] [place] [address] 07235- 7697 May, Anemia due to blood loss D50.0 [place] [address] [place] [id number] [place] [address] 52533- 5482 May, Localized edema R60.0 [place] [address] [place] [id number] [place] [address] 49505- 0969 May, Blood loss anemia D50.0 ; Localized edema R60.0 and Coronary artery disease I25.10 [place] [address] [place] [id number] [place] [address] 35337- 0042 Apr, Blood loss anemia D50.0 [place] [address] [place] [id number] [place] [address] 15507- 9505 Apr, Epistaxis R04.0 ; Anemia, unspecified type D64.9 and Hyponatremia E87.1 [place] [address] [place] [id number] [place] [address] 07198- 1687 Apr, [place] [address] [place] [id number] [place] [address] 27121- 5571 Apr, Back pain M54.9 [place] [address] [place] [address] 63374- 2517 Apr, Back pain M54.9 [place] [address] [facility] [id number] [address]- 1663 Mar, [facility] [address] [facility] [place] [id number] [place] [address] 17092- 1151 Mar, Back pain M54.9 [facility] [address] [facility] [place] [id number] [place] [address]- 8754 Feb, [facility] [address] [facility] [id number] [place] [address] 10772- 0663 Feb, [facility] [address] [facility] [place] [id number] [place] [address] 57646- 3794 Jan, [facility] [address] [facility] [place] [id number] [place] [address] 40335- 1167 Dec, [facility] [address] [facility] [place] [id number] [place] [address] 21727- 7191 Dec, [facility] [address] [place] [id number] [place] [address] 44678- 9129 Dec, Arthritis, 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 and Leg weakness, bilateral M62.81 [facility] [address] [place] [address] 24693- 2434 Dec, [facility] [address] [facility] [place] [id number] [place] [address]- 9701 Oct, Back pain M54.9 [facility] [id number] [place] [address] 48787- 8087 Oct, Back pain M54.9 [facility] [address] [facility] [place] [id number] [place] [address]- 2673 September, Back pain M54.9 [facility] [address] [facility] [place] [id number] [place] [address] 80605- 1425 Aug, Back pain M54.9 [facility] [address] [facility] [place] [id number] [place] [address]- 2187 Aug, Back pain M54.9 [facility] [address] [address]- 5992 14 Jul, 2015 [facility] [address] [place] [id number] [place] [address] 06442- 6353 07 Jul, 2015 Back pain M54.9 [facility] [id number] [place] [address] 03964- 8937 16 Jun, 2015 [facility] [address] [id number] [place] [address] 10280- 6761 03 Jun, 2015 Back pain M54.9 [facility] [address] [place] [id number] [place] [address] 81809- 1612 15 May, 2015 [facility] use of drug Z79.899 ; Back pain M54.9 ; Hyperlipidemia E78.5 ; Hypertension I10 and GERD (gastroesophageal reflux disease) K21.9 [place] [address] [place] [id number] [place] [address] 76349- 9108 13 May, 2015 Arthritis M19.90 [facility] [address] [id number] [place] [address] 64769- 4414 16 Apr, 2015 [place] [address] [place] [id number] [place] [address] 07997- 8501 Apr, [facility] [id number] [place] [address] 86961- 1161 18 Mar, 2015 [place] [address] [place] [id number] [place] [address] 61312- 8523 Mar, [facility] [address] [place] [id number] [place] [address] 15130- 4837 Feb, Arthritis M19.90 ; Encounter for immunization Z23 ; Contusion of right hip S70.01XA and Coronary artery disease I25.10 [facility] [address] [address]- 7949 Jan, [facility] [address] [place] [id number] [place] [address] 34527- 0528 Jan, [facility] [address] [id number] [place] [address]- 9823 Dec, Acute bronchitis 466.0 and Unspecified arthropathy, site unspecified 716.90 [facility] [address] [id number] [place] [address]- 9052 Dec, [facility] [address] [id number] [place] [address]- 5532 Dec, [facility] [address] [id number] [place] [address]- 6661 Nov, [facility] [address] [id number] [place] [address]- 7738 Nov, [facility] [address] [id number] [place] [address]- 4762 Nov, [facility] [address] [facility] [id number] [place] [address]- 4703 Oct, [facility] [address] [id number] [place] [address]- 6932 Oct, [facility] [address] [id number] [place] [address]- 3624 Oct, Unspecified arthropathy, site unspecified 716.90 [facility] [address] [facility] [facility] [id number] [place] [address]- 9779 Oct, [facility] [address] [facility] [place] [id number] [place] [address]- 7147 September, [facility] [address] [facility] [id number] [place] [address]- 9837 September, [facility] [address] [facility] [id number] [place] [address]- 5740 Aug, [facility] [address] [id number] [place] [address]- 6635 Aug, [facility] [address] [facility] [id number] [place] [address]- 8443 Jul, [facility] [place] [facility] [address] [id number] [place] [address]- 4066 Jul, [facility] [place] [facility] [address] [id number] [place] [address]- 1421 Jul, [facility] [place] [facility] [address] [id number] [place] [address]- 2722 Jul, [facility] [place] [facility] [address] [id number] [place] [address]- 2596 Jul, [facility] [place] [facility] [address] [id number] [place] [address]- 0791 Jul, [facility] [place] [facility] [address] [id number] [place] [address]- 0859 Jun, [facility] [place] [facility] [address] [id number] [place] [address]- 6814 Jun, [facility] [place] [facility] [address] [id number] [place] [address]- 7493 Jun, [facility] [place] [facility] [address] [id number] [place] [address]- 6398 Jun, [facility] [place] [facility] [address] [id number] [place] [address]- 0032 May, [facility] [place] [facility] [address] [id number] [place] [address]- 8583 May, [facility] [place] [facility] [address] [id number] [place] [address]- 7866 May, [facility] [place] [facility] [address] [id number] [place] [address]- 1520 May, [facility] [place] [facility] [address] [id number] [place] [address]- 1374 May, [facility] [place] [facility] [address] [id number] [place] [address]- 1041 May, [facility] [place] [facility] [address] [id number] [place] [address]- 3981 May, [facility] [place] [facility] [address] [id number] [place] [address]- 8002 May, [facility] [place] [facility] [address] [id number] [place] [address]- 9076 May, [facility] [place] [facility] [address] [id number] [place] [address]- 1464 May, [facility] [place] [facility] [address] [id number] [place] [address]- 7685 May, [facility] [place] [facility] [address] [id number] [place] [address]- 3923 Apr, [facility] [place] [facility] [address] [id number] [place] [address]- 6193 Apr, [facility] [place] [facility] [address] [id number] [place] [address]- 7254 Apr, [facility] [place] [facility] [address] [id number] [place] [address]- 7124 Apr, [facility] [place] [facility] [address] [id number] [place] [address]- 2905 Apr, [facility] [place] [facility] [address] [id number] [place] [address]- 7556 Mar, [facility] [place] [facility] [address] [id number] [place] [address]- 4985 Mar, [facility] [place] [facility] [address] [id number] [place] [address]- 6187 Feb, [facility] [place] [facility] [address] [id number] [place] [address]- 2618 Feb, [facility] [place] [facility] [address] [id number] [place] [address]- 9096 Feb, [facility] [place] [facility] [address] [id number] [place] [address]- 7679 Feb, [facility] [place] [facility] [address] [id number] [place] [address]- 1470 Jan, [facility] [place] [facility] [address] [id number] [place] [address]- 1332 Jan, [facility] [place] [facility] [address] [id number] [place] [address]- 6540 Dec, [facility] [place] [facility] [address] [id number] [place] [address]- 8462 Dec, [facility] [place] [facility] [address] [id number] [place] [address]- 1787 Nov, [facility] [place] [facility] [address] [id number] [place] [address]- 9863 Nov, [facility] [place] [facility] [address] [id number] [place] [address]- 9743 Oct, [facility] [place] [facility] [address] [id number] [place] [address]- 5086 Oct, [facility] [place] [facility] [address] [id number] [place] [address]- 2741 Oct, [facility] [place] [facility] [address] [id number] [place] [address]- 1308 Oct, [facility] [place] [facility] [address] [id number] [place] [address]- 5575 Aug, [facility] [place] [facility] [address] [id number] [place] [address]- 5430 Aug, [facility] [place] [facility] [address] [id number] [place] [address]- 6619 Aug, [facility] [place] [facility] [address] [id number] [place] [address]- 1573 Aug, [facility] [place] [facility] [address] [id number] [place] [address]- 1891 May, [facility] [place] [facility] [address] [id number] [place] [address]- 4462 May, [facility] [address] [id number] [place] [address]- 2188 May, [facility] [place] [facility] [address] [id number] [place] [address]- 7236 May, [facility] [place] [facility] [address] [id number] [place] [address]- 0448 May, [facility] [place] [facility] [address] [id number] [place] [address]- 2878 May, [facility] [place] [facility] [address] [id number] [place] [address]- 2583 May, [facility] [place] [facility] [address] [id number] [place] [address]- 8705 Apr, [facility] [address] [id number] [place] [address]- 0933 Apr, [facility] [place] [facility] [address] [id number] [place] [address]- 2542 Apr, [facility] [place] [facility] [address] [id number] [place] [address]- 2947 Apr, [facility] [place] [facility] [address] [id number] [place] [address]- 7304 Apr, [facility] [place] [facility] [address] [id number] [place] [address]- 3741 Apr, [facility] [place] [facility] [address] [id number] [place] [address]- 3725 Apr, [facility] [place] [facility] [address] [id number] [place] [address]- 6533 Apr, [facility] [place] [facility] [address] [id number] [place] [address]- 4900 Apr, [facility] [place] [facility] [address] [id number] [place] [address]- 5587 Apr, [facility] [place] [facility] [address] [id number] [place] [address]- 6577 Mar, [facility] [place] [facility] [address] [id number] [place] [address]- 0111 Mar, [facility] [place] [facility] [address] [id number] [place] [address]- 3360 Mar, [facility] [place] [facility] [address] [id number] [place] [address]- 9298 Mar, [facility] [place] [facility] [address] [id number] [place] [address]- 4970 Feb, [facility] [place] [facility] [address] [id number] [place] [address] Feb, [facility] [place] [facility] [address] [id number] [place] [address] Jan, [facility] [place] [facility] [address] [id number] [place] [address] Jan, [facility] [place] [facility] [address] [id number] [place] [address] Jan, [facility] [place] [facility] [address] [id number] [place] [address] Dec, [facility] [place] [facility] [address] [id number] [place] [address] Dec, [facility] [place] [facility] [address] [id number] [place] [address] Nov, [facility] [place] [facility] [address] [id number] [place] [address] Oct, [facility] [place] [facility] [address] [id number] [place] [address] Oct, [facility] [place] [facility] [address] [id number] [place] [address] Oct, [facility] [place] [facility] [address] [id number] [place] [address] September, [facility] [address] [id number] [place] [address] September, [facility] [address] [id number] [place] [address] Jun, [facility] [address] [id number] [place] [address] Jun, [facility] [address] [id number] [place] [address] Jun, [facility] [address] [id number] [place] [address] Jun, [facility] [address] [id number] [place] [address] May, [facility] [address] [id number] [place] [address] May, [facility] [address] [id number] [place] [address] May, [facility] [address] [id number] [place] [address] May, [facility] [address] [id number] [place] [address] Apr, [facility] [address] [id number] [place] [address] Apr, [facility] [place] [facility] [address] [id number] [place] [address] Apr, [facility] [place] [facility] [address] [id number] [place] [address] Apr, [facility] [place] [facility] [address] [id number] [place] [address] Apr, [facility] [place] [facility] [address] [id number] [place] [address] Apr, [facility] [place] [facility] [address] [id number] [place] [address] 08 Mar, 2012 [facility] [place] [facility] [address] [id number] [place] [address] Mar, [facility] [place] [facility] [address] [id number] [place] [address] Mar, [facility] [place] [facility] [address] [id number] [place] [address] Mar, [facility] [place] [facility] [address] [id number] [place] [address] Feb, [facility] [place] [facility] [address] [id number] [place] [address] Feb, [facility] [place] [facility] [address] [id number] [place] [address] Feb, [facility] [place] [facility] [address] [id number] [place] [address] Feb, [facility] [place] [facility] [address] [id number] [place] [address] 10 Feb, 2012 [facility] [place] [facility] [address] [id number] [place] [address] 17 Jan, 2012 [facility] [place] [facility] [address] [id number] [place] [address] 13 Jan, 2012 [facility] [place] [facility] [address] [id number] [place] [address] 12 Jan, 2012 [facility] [place] [facility] [address] [id number] [place] [address] 12 Jan, 2012 [facility] [place] [facility] [address] [id number] [place] [address] 11 Jan, 2012 [facility] [place] [facility] [address] [id number] [place] [address] 14 Dec, 2011 [facility] [place] [facility] [address] [id number] [place] [address] 17 Nov, 2011 [facility] [address] [id number] [place] [address] 13 Nov, 2011 [facility] [place] [facility] [address] [id number] [place] [address] Nov, [facility] [place] [facility] [address] [id number] [place] [address]- [address] Nov, [facility] [place] [facility] [address] [id number] [place] [address] Nov, [facility] [place] [facility] [address] [id number] [place] [address] 14 Oct, 2011 [facility] [place] [facility] [address] [id number] [place] [address] September, [facility] [place] [facility] [address] [id number] [place] [address] September, [facility] [place] [facility] [address] [id number] [place] [address] 13 Aug, 2011 [facility] [place] [facility] [address] [id number] [place] [address] Aug, [facility] [place] [facility] [address] [id number] [place] [address] Aug, [facility] [place] [facility] [address] [id number] [place] [address] Aug, [facility] [place] [facility] [address] [id number] [place] [address] 16 Jul, 2011 [facility] [place] [facility] [address] [id number] [place] [address] Jul, [facility] [place] [facility] [address] [id number] [place] [address] 10 Jun, 2011 [facility] [place] [facility] [address] [id number] [place] [address] 07 Jun, 2011 [facility] [place] [facility] [address] [id number] [place] [address] 06 Jun, 2011 [facility] [address] [id number] [place] [address] Jun, [facility] [address] [id number] [place] [address] May, [facility] [address] [id number] [place] [address] May, [facility] [address] [id number] [place] [address] May, [facility] [address] [id number] [place] [address] May, [facility] [address] [id number] [place] [address] May, [facility] [address] [id number] [place] [address] May, [facility] [address] [id number] [place] [address] Apr, [facility] [address] [id number] [place] [address] 24 Apr, 2011 [facility] [address] [id number] [place] [address] Apr, [facility] [address] [id number] [place] [address] Apr, [facility] [address] [id number] [place] [address] Apr, [facility] [address] [id number] [place] [address] 16 Apr, 2011 [facility] [address] [id number] [place] [address] 16 Apr, 2011 [facility] [address] [id number] [place] [address] Apr, [facility] [address] [id number] [place] [address] Mar, [facility] [place] [facility] [address] [id number] [place] [address] Mar, [facility] [place] [facility] [address] [id number] [place] [address] Mar, [facility] [place] [facility] [address] [id number] [place] [address] September, [facility] [place] [facility] [address] [id number] [place] [address] September, [facility] [place] [facility] [address] [id number] [place] [address] Jul, [facility] [place] [facility] [address] [id number] [place] [address] 10 Jun, 2010 [facility] [place] [facility] [address] [id number] [place] [address] Apr, [facility] [place] [facility] [address] [id number] [place] [address] Apr, [facility] [place] [facility] [address] [id number] [address] Apr, [facility] [place] [facility] [address] [id number] [address] Mar, [facility] [place] [facility] [address] [id number] [place] [address] 18 Mar, 2010 [facility] [place] [facility] [address] [id number] [place] [address] Mar, [facility] [place] [facility] [address] [id number] [place] [address] 20 Feb, 2010 [facility] [place] [facility] [address] [id number] [place] [address] 14 Jan, 2010 [facility] [place] [facility] [address] [id number] [address] Apr, [facility] [address] [facility] [place] [id number] [place] [address] Apr, [facility] [address] [facility] [place] [id number] [place] [address] Mar, [facility] [address] [facility] [place] [id number] [place] [address] Mar, [facility] [address] [facility] [place] [id number] [place] [address] Feb, [facility] [address] [facility] [place] [id number] [place] [address] Jun, IMMUNIZATIONS No Known Immunizations SOCIAL HISTORY Never Assessed REASON FOR VISIT Hydrocodone 09/02 PLAN OF CARE VITAL SIGNS MEDICATIONS Medication Instructions Dosage Frequency Start Date End Date Duration Status Hydrocodone-Acetaminophen 10-325 MG Orally every 4 hrs 1 tablet 4h Aug, 28 days Active Tramadol HCl 50 mg [...]
--- OUTSIDE RECORDS SUMMARY | 2018-02-27 15:01 | XMS REPORT ---
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 Active 31181070 Problem Peripheral vascular disease I73.9 Active 298548207 Problem Hypertension I10 Active 78562597 Problem GERD (gastroesophageal reflux disease) K21.9 Active 949416360 Problem Cigarette nicotine dependence without complication F17.210 Active 41980699 Problem Venous insufficiency I87.2 Active 40585421 ALLERGIES No Information ENCOUNTERS Encounter Location Date Diagnosis [place] [id number] [place] [address] 83908- 3225 Dec, [facility] [place] [id number] [place] [address] 32009- 2751 18 Nov, 2017 Back pain M54.9 [facility] [place] [address] [place] [id number] [place] [address] 85979- 4471 17 Nov, 2017 Back pain M54.9 [facility] [place] [id number] [place] [address] 28890- 7263 12 Nov, 2017 Bronchitis J40 [facility] [place] [id number] [place] [address] 69400- 4255 22 Oct, 2017 Back pain M54.9 [facility] [place] [id number] [place] [address] 06633- 2225 13 Oct, 2017 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 [facility] [place] [address] [id number] [place] [address] 27712- 9128 September, emt intermediate current use of opiate analgesic Z79.891 ; Medication monitoring encounter Z51.81 ; Back pain M54.9 ; Weakness R53.1 ; Cigarette nicotine dependence without complication F17.210 ; Coronary artery disease I25.10 and Peripheral vascular disease I73.9 [facility] [place] [address] [address]- 2892 September, Back pain M54.9 [facility] [place] [address] 61792- 5766 Aug, Back pain M54.9 [facility] [place] [address] 53057- 4260 Aug, [facility] [place] [address] 52157- 7085 Aug, Back pain M54.9 [facility] [place] [address] 09380- 5223 Jul, Back pain M54.9 [facility] [place] [address] 26312- 7567 Jun, [facility] [place] [id number] [place] [address] 22409- 2374 Jun, Back pain M54.9 [facility] [place] [id number] [place] [address] 20019 2545 May, Back pain M54.9 [facility] [place] [address] [id number] [place] [address] 43685- 0280 May, Back pain M54.9 [facility] [place] [id number] [place] [address] 78576- 9766 May, Hypertension I10 ; Back pain M54.9 and Cigarette nicotine dependence without complication F17.210 [facility] [place] [id number] [place] [address] 58579- 9271 Apr, Back pain M54.9 [facility] [place] [address] [id number] [place] [address] 12945- 9368 Apr, Hypokalemia E87.6 [facility] [place] [address] [address] [id number] [place] [address] 65643- 0974 Apr, Hypokalemia E87.6 [facility] [place] [address] 12355- 8983 Mar, Back pain M54.9 [facility] [place] [address] 21279- 3682 Mar, [facility] [place] [address] 30448- 0165 Mar, Back pain M54.9 ; Coronary artery disease I25.10 and Acute nasopharyngitis J00 [facility] [place] [address] 52013- 9479 Mar, Back pain M54.9 [facility] [place] [address] [id number] [place] [address] 81687- 6389 Feb, Back pain M54.9 [facility] [place] [address] [id number] [place] [address] 51569- 9025 Jan, Anemia due to blood loss D50.0 and Hypokalemia E87.6 [facility] [place] [address] [address] [id number] [place] [address] 31917- 8688 18 Jan, 2017 [facility] [place] [address] [address] [id number] [place] [address] 14405- 8306 11 Jan, 2017 Hypokalemia E87.6 [facility] [place] [address] [address] [id number] [place] [address] 46797- 8135 08 Jan, 2017 Back pain M54.9 [facility] [place] [address] [place] [address] [id number] [place] [address] 64440- 5554 Jan, [facility] [place] [address] [address] [id number] [place] [address] 24276- 4993 Dec, Hypertension I10 and Back pain M54.9 [facility] [place] [address] [place] [address] 91769- 8584 29 Oct, 2016 Back pain M54.9 [facility] [place] [address] [place] [address] 90189- 9681 15 Oct, 2016 Back pain M54.9 [facility] [place] [address] [address] [id number] [place] [address] 18350- 3438 07 Oct, 2016 Back pain M54.9 [facility] [place] [address] [id number] [place] [address] 40971- 8457 September, Back pain M54.9 [facility] [place] [address] [id number] [place] [address] 83345- 9807 Aug, Back pain M54.9 [facility] [place] [address] [id number] [place] [address] 58382- 5267 Aug, Epistaxis R04.0 [facility] [place] [address] [address] [id number] [place] [address] 75429- 9523 Jul, [facility] [place] [address] [address] [id number] [place] [address] 47797- 7073 Jul, Back pain M54.9 [facility] [place] [address] [place] [address] [id number] [place] [address] 26059- 0797 15 Jun, 2016 Back pain M54.9 [facility] [place] [address] [place] [address] [id number] [place] [address] 65975- 2901 Jun, Localized edema R60.0 [facility] [place] [address] [place] [address] [id number] [place] [address] 48331- 2817 Jun, [facility] [place] [address] [id number] [place] [address] 61386- 5782 06 Jun, 2016 Anemia due to blood loss D50.0 ; Venous insufficiency I87.2 ; Hypertension I10 and Plantar fasciitis M72.2 [facility] [place] [address] [place] [address] [id number] [place] [address] 38075- 3162 May, Back pain M54.9 [place] [address] [place] [id number] [place] [address] 16773- 3167 May, [place] [address] [place] [id number] [place] [address] 21305- 0995 May, emt intermediate use of drug Z79.899 ; Anemia due to blood loss D50.0 and Venous insufficiency I87.2 [place] [address] [place] [id number] [place] [address] 50893- 5259 May, Back pain M54.9 [place] [address] [place] [id number] [place] [address] 99554- 5939 May, Anemia due to blood loss D50.0 [place] [address] [place] [id number] [place] [address] 28345- 6854 May, Localized edema R60.0 [place] [address] [place] [id number] [place] [address] 97533- 1459 May, Blood loss anemia D50.0 ; Localized edema R60.0 and Coronary artery disease I25.10 [place] [address] [place] [id number] [place] [address] 63000- 7440 Apr, Blood loss anemia D50.0 [place] [address] [place] [id number] [place] [address] 37823- 1330 Apr, Epistaxis R04.0 ; Anemia, unspecified type D64.9 and Hyponatremia E87.1 [place] [address] [place] [id number] [place] [address] 08117- 3978 Apr, [place] [address] [place] [id number] [place] [address] 62301- 5128 Apr, Back pain M54.9 [place] [address] [place] [address] 23199- 5851 Apr, Back pain M54.9 [place] [address] [facility] [id number], [place] [address]- 3544 Mar, [facility] [place] [address] [facility] [id number] [place] [address] 11470- 9257 Mar, Back pain M54.9 [facility] [place] [address] [facility] [id number], [place] [address]- 2355 Feb, [facility] [place] [address] [facility] [id number] [place] [address] 48506- 5932 Feb, [facility] [place] [address] [facility] [id number] [place] [address] 02758- 9993 Jan, [facility] [place] [address] [facility] [id number] [place] [address] 78592- 5509 Dec, [facility] [place] [address] [facility] [id number] [place] [address] 25393- 2563 Dec, [facility] [place] [address] [place] [id number] [place] [address] 37746- 3045 Dec, Arthritis, 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 and Leg weakness, bilateral M62.81 [facility] [place] [id number] [place] [address] 87288- 3118 Dec, [facility] [place] [address] [facility] [id number], [place] [address]- 3732 Oct, Back pain M54.9 [facility] [place] [address] [place] [address] 02848- 4290 Oct, Back pain M54.9 [facility] [place] [address] [facility] [id number], [place] [address]- 9325 September, Back pain M54.9 [facility] [place] [address] [facility] [id number] [place] [address] 91795- 1177 Aug, Back pain M54.9 [facility] [place] [address] [facility] [id number], [place] [address]- 7759 Aug, Back pain M54.9 [facility] [place] [address] [address]- 0954 14 Jul, 2015 [facility] [place] [address] [place] [id number] [place] [address] 96912- 6292 07 Jul, 2015 Back pain M54.9 [facility] [place] [address] [id number] [place] [address] 27089- 7275 16 Jun, 2015 [facility] [place] [address] [place] [id number] [place] [address] 25586- 8338 03 Jun, 2015 Back pain M54.9 [facility] [place] [address] [place] [address] [id number] [place] [address] 89042- 7227 15 May, 2015 USP use of drug Z79.899 ; Back pain M54.9 ; Hyperlipidemia E78.5 ; Hypertension I10 and GERD (gastroesophageal reflux disease) K21.9 [place] [address] [place] [id number] [place] [address] 32765- 0041 13 May, 2015 Arthritis M19.90 [facility] [place] [address] [place] [address] [id number] [place] [address] 71894- 2195 16 Apr, 2015 [place] [address] [place] [id number] [place] [address] 14268- 7907 Apr, [facility] [place] [address] [place] [address] [id number] [place] [address] 86148- 2472 18 Mar, 2015 [place] [address] [place] [id number] [place] [address] 72063- 8241 Mar, [facility] [place] [address] [address] [id number] [place] [address] 01187- 7514 Feb, Arthritis M19.90 ; Encounter for immunization Z23 ; Contusion of right hip S70.01XA and Coronary artery disease I25.10 [facility] [place] [address] [address]- 2318 Jan, [facility] [place] [address] [place] [id number] [place] [address] 12866- 2492 Jan, [facility] [place] [address] [id number] [place] [address]- 5334 Dec, Acute bronchitis 466.0 and Unspecified arthropathy, site unspecified 716.90 [facility] [address] [id number] [place] [address]- 2832 Dec, [facility] [address] [id number] [place] [address]- [address] Dec, [facility] [address] [id number] [place] [address]- [address] Nov, [facility] [address] [id number] [place] [address]- 1514 Nov, [facility] [address] [id number] [place] [address]- 1220 Nov, [facility] [place] [address] [facility] [id number] [place] [address]- 5386 Oct, [facility] [place] [address] [id number] [place] [address]- 0470 Oct, [facility] [place] [address] [id number] [place] [address]- 1152 Oct, Unspecified arthropathy, site unspecified 716.90 [facility] [place] [address] [facility] [id number] [place] [address]- 8651 Oct, [facility] [place] [address] [facility] [id number] [place] [address]- [address] September, [facility] [address] [facility] [id number] [place] [address]- 3679 September, [facility] [address] [facility] [id number] [place] [address]- [address] Aug, [facility] [address] [id number] [place] [address]- [address] Aug, [facility] [address] [facility] [id number] [place] [address]- 4654 Jul, [facility] [place] [facility] [address] [id number] [place] [address]- 1798 Jul, [facility] [place] [facility] [address] [id number] [place] [address]- 0505 Jul, [facility] [place] [facility] [address] [id number] [place] [address]- 8070 Jul, [facility] [place] [facility] [address] [id number] [place] [address]- 2435 Jul, [facility] [place] [facility] [address] [id number] [place] [address]- 4770 Jul, [facility] [place] [facility] [address] [id number] [place] [address]- 1868 Jun, [facility] [place] [facility] [address] [id number] [place] [address]- 3386 Jun, [facility] [place] [facility] [address] [id number] [place] [address]- 5758 Jun, [facility] [place] [facility] [address] [id number] [place] [address]- 8991 Jun, [facility] [place] [facility] [address] [id number] [place] [address]- 3009 May, [facility] [place] [facility] [address] [id number], [place] [address]- 6508 May, [facility] [place] [facility] [address] [id number], [place] [address]- 9852 May, [facility] [place] [facility] [address] [id number], [place] [address]- 7816 May, [facility] [place] [facility] [address] [id number], [place] [address]- 2192 May, [facility] [place] [facility] [address] [id number] [place] [address]- 7563 May, [facility] [place] [facility] [address] [id number] [place] [address]- 2278 May, [facility] [place] [facility] [address] [id number] [place] [address]- 0448 May, [facility] [place] [facility] [address] [id number] [place] [address]- 5366 May, [facility] [place] [facility] [address] [id number] [place] [address]- 8920 May, [facility] [place] [facility] [address] [id number] [place] [address]- 3401 May, [facility] [place] [facility] [address] [id number] [place] [address]- 4335 Apr, [facility] [place] [facility] [address] [id number] [place] [address]- 4145 Apr, [facility] [place] [facility] [address] [id number] [place] [address]- 9653 Apr, [facility] [place] [facility] [address] [id number] [place] [address]- 2440 Apr, [facility] [place] [facility] [address] [id number] [place] [address]- 9294 Apr, [facility] [place] [facility] [address] [id number] [place] [address]- 2573 Mar, [facility] [place] [facility] [address] [id number] [place] [address]- 5418 Mar, [facility] [place] [facility] [address] [id number] [place] [address]- 5331 Feb, [facility] [place] [facility] [address] [id number] [place] [address]- 1518 Feb, [facility] [place] [facility] [address] [id number] [place] [address]- 2436 Feb, [facility] [place] [facility] [address] [id number] [place] [address]- 0096 Feb, [facility] [place] [facility] [address] [id number] [place] [address]- 5258 Jan, [facility] [place] [facility] [address] [id number] [place] [address]- 9918 Jan, [facility] [place] [facility] [address] [id number] [place] [address]- 3263 Dec, [facility] [place] [facility] [address] [id number] [place] [address]- 3050 Dec, [facility] [place] [facility] [address] [id number] [place] [address]- 7506 Nov, [facility] [place] [facility] [address] [id number] [place] [address]- 0326 Nov, [facility] [place] [facility] [address] [id number] [place] [address]- 3363 Oct, [facility] [place] [facility] [address] [id number] [place] [address]- 8827 Oct, [facility] [place] [facility] [address] [id number] [place] [address]- 2406 Oct, [facility] [place] [facility] [address] [id number] [place] [address]- 7178 Oct, [facility] [place] [facility] [address] [id number] [place] [address]- 2740 Aug, [facility] [place] [facility] [address] [id number], [place] [address]- 6249 Aug, [facility] [place] [facility] [address] [id number] [place] [address]- 8339 Aug, [facility] [place] [facility] [address] [id number] [place] [address] Aug, [facility] [place] [facility] [address] [id number] [place] [address] May, [facility] [place] [facility] [address] [id number] [place] [address] May, [facility] [address] [id number] [place] [address] May, [facility] [place] [facility] [address] [id number] [place] [address] May, [facility] [place] [facility] [address] [id number] [place] [address] May, [facility] [place] [facility] [address] [id number] [place] [address] May, [facility] [place] [facility] [address] [id number] [place] [address] May, [facility] [place] [facility] [address] [id number] [place] [address] Apr, [facility] [address] [id number] [place] [address] Apr, [facility] [place] [facility] [address] [id number] [place] [address] Apr, [facility] [place] [facility] [address] [id number] [place] [address] Apr, [facility] [place] [facility] [address] [id number] [place] [address] Apr, [facility] [place] [facility] [address] [id number] [place] [address] Apr, [facility] [place] [facility] [address] [id number] [place] [address] Apr, [facility] [place] [facility] [address] [id number] [place] [address] Apr, [facility] [place] [facility] [address] [id number] [place] [address] Apr, [facility] [place] [facility] [address] [id number] [place] [address] Apr, [facility] [place] [facility] [address] [id number] [place] [address] Mar, [facility] [place] [facility] [address] [id number] [place] [address] Mar, [facility] [place] [facility] [address] [id number] [place] [address] Mar, [facility] [place] [facility] [address] [id number] [place] [address] Mar, [facility] [place] [facility] [address] [id number] [place] [address] Feb, [facility] [place] [facility] [address] [id number] [place] [address] Feb, [facility] [place] [facility] [address] [id number] [place] [address] Jan, [facility] [place] [facility] [address] [id number] [place] [address] Jan, [facility] [place] [facility] [address] [id number] [place] [address] Jan, [facility] [place] [facility] [address] [id number] [place] [address] Dec, [facility] [place] [facility] [address] [id number] [place] [address] Dec, [facility] [place] [facility] [address] [id number] [place] [address] Nov, [facility] [place] [facility] [address] [id number] [place] [address] Oct, [facility] [place] [facility] [address] [id number] [place] [address] Oct, [facility] [place] [facility] [address] [id number] [place] [address] Oct, [facility] [place] [facility] [address] [id number] [place] [address] September, [facility] [address] [id number] [place] [address] September, [facility] [address] [id number] [place] [address] Jun, [facility] [address] [id number] [place] [address] Jun, [facility] [address] [id number] [place] [address] Jun, [facility] [address] [id number] [place] [address] Jun, [facility] [address] [id number] [id number] [address] May, [facility] [address] [id number] [place] [address] May, [facility] [address] [id number] [place] [address] May, [facility] [address] [id number] [place] [address] May, [facility] [address] [id number] [place] [address] Apr, [facility] [address] [id number] [place] [address] Apr, [facility] [place] [facility] [address] [id number] [place] [address] Apr, [facility] [place] [facility] [address] [id number] [place] [address] Apr, [facility] [place] [facility] [address] [id number] [place] [address] Apr, [facility] [place] [facility] [address] [id number] [place] [address] Apr, [facility] [place] [facility] [address] [id number] [place] [address] 08 Mar, 2012 [facility] [place] [facility] [address] [id number] [place] [address] Mar, [facility] [place] [facility] [address] [id number] [place] [address] Mar, [facility] [place] [facility] [address] [id number] [place] [address] Mar, [facility] [place] [facility] [address] [id number] [place] [address] Feb, [facility] [place] [facility] [address] [id number] [place] [address] Feb, [facility] [place] [facility] [address] [id number] [place] [address] Feb, [facility] [place] [facility] [address] [id number] [place] [address] Feb, [facility] [place] [facility] [address] [id number] [place] [address] 10 Feb, 2012 [facility] [place] [facility] [address] [id number] [place] [address] 17 Jan, 2012 [facility] [place] [facility] [address] [id number] [place] [address] 13 Jan, 2012 [facility] [place] [facility] [address] [id number] [place] [address] 12 Jan, 2012 [facility] [place] [facility] [address] [id number] [place] [address] 12 Jan, 2012 [facility] [place] [facility] [address] [id number] [place] [address] 11 Jan, 2012 [facility] [place] [facility] [address] [id number] [place] [address] 14 Dec, 2011 [facility] [place] [facility] [address] [id number] [place] [address] 17 Nov, 2011 [facility] [address] [id number] [place] [address] 13 Nov, 2011 [facility] [place] [facility] [address] [id number] [place] [address] Nov, [facility] [place] [facility] [address] [id number] [place] [address] Nov, [facility] [place] [facility] [address] [id number] [place] [address] Nov, [facility] [place] [facility] [address] [id number] [place] [address] 14 Oct, 2011 [facility] [place] [facility] [address] [id number] [place] [address] September, [facility] [place] [facility] [address] [id number] [place] [address] September, [facility] [place] [facility] [address] [id number] [place] [address] 13 Aug, 2011 [facility] [place] [facility] [address] [id number] [place] [address] Aug, [facility] [place] [facility] [address] [id number] [place] [address] Aug, [facility] [place] [facility] [address] [id number] [place] [address] Aug, [facility] [place] [facility] [address] [id number] [place] [address]41 16 Jul, 2011 [facility] [place] [facility] [address] [id number] [place] [address] Jul, [facility] [place] [facility] [address] [id number] [place] [address] 10 Jun, 2011 [facility] [place] [facility] [address] [id number] [place] [address]71 07 Jun, 2011 [facility] [place] [facility] [address] [id number] [place] [address] 06 Jun, 2011 [facility] [place] [facility] [address] [id number] [place] [address] Jun, [facility] [address] [id number] [place] [address] May, [facility] [address] [id number] [place] [address] [address] May, [facility] [address] [id number] [place] [address]- [address] May, [facility] [address] [id number] [place] [address]- [address] May, [facility] [address] [id number] [place] [address] May, [facility] [address] [id number] [place] [address] May, [facility] [address] [id number] [place] [address] Apr, [facility] [address] [id number] [place] [address]- [address] 24 Apr, 2011 [facility] [address] [id number] [place] [address] Apr, [facility] [address] [id number] [place] [address] [address], [facility] [address] [id number] [place] [address]- [address] Apr, [facility] [address] [id number] [place] [address]46 16 Apr, [address] [facility] [address] [id number] [place] [address]- [address]46 16 Apr, [address] [facility] [address] [id number] [place] [address]- [address] Apr, [facility] [address] [id number] [place] [address] Mar, [facility] [place] [facility] [address] [id number] [place] [address]- 1615 Mar, [facility] [place] [facility] [address] [id number] [place] [address] Mar, [facility] [place] [facility] [address] [id number] [place] [address]68 September, [facility] [place] [facility] [address] [id number] [place] [address] 79[address] September, [facility] [place] [facility] [address] [id number] [place] [address] Jul, [facility] [place] [facility] [address] [id number] [place] [address]- [address] 10 Jun, 2010 [facility] [place] [facility] [address] [id number] [place] [address]- [address] Apr, [facility] [place] [facility] [address] [id number] [place] [address] Apr, [facility] [place] [facility] [address] [id number], [place] [address] Apr, [facility] [place] [facility] [address] [id number], [place] [address] Mar, [facility] [place] [facility] [address] [id number], [place] [address] 18 Mar, 2010 [facility] [place] [facility] [address] [id number] [place] [address]- 2548 Mar, [facility] [place] [facility] [address] [id number] [place] [address]- [address] 20 Feb, 2010 [facility] [place] [facility] [address] [id number], [place] [address] 14 Jan, 2010 [facility] [place] [facility] [address] [id number], [place] [address]- [address] Apr, [facility] [place] [address] [facility] [id number], [place] [address] Apr, [facility] [place] [address] [id number], [place] [address] Mar, [facility] [place] [address] [facility] [id number], [place] [address]- [address] Mar, [facility] [place] [address] [id number], [place] [address] Feb, [facility] [place] [address] [facility] [id number], [place] [address] 2546 Jun, IMMUNIZATIONS No Known Immunizations SOCIAL HISTORY Never Assessed REASON FOR VISIT PLAN OF CARE VITAL SIGNS MEDICATIONS Medication Instructions Dosage Frequency Start Date End Date Duration Status Cyclobenzaprine HCl 10 mg Orally Three times a day 1 tablet as needed 8h 90 days Active RESULTS No Results PROCEDURES No [...]
--- OUTSIDE RECORDS SUMMARY | 2018-02-27 15:01 | XMS REPORT ---
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 Active 91481409 Problem Peripheral vascular disease I73.9 Active 724592223 Problem Hypertension I10 Active 26542018 Problem GERD (gastroesophageal reflux disease) K21.9 Active 667442536 Problem Cigarette nicotine dependence without complication F17.210 Active 08261270 Problem Venous insufficiency I87.2 Active 79300237 ALLERGIES No Information ENCOUNTERS Encounter Location Date Diagnosis [place] [id number] [place] [address] 73807- 4876 Dec, [facility] [address] [place] [address] 04095- 3437 18 Nov, 2017 Back pain M54.9 [facility] [id number] [place] [address] 94418- 5158 17 Nov, 2017 Back pain M54.9 [facility] [address] [place] [address] 61854- 2651 12 Nov, 2017 Bronchitis J40 [facility] [id number] [place] [address] 25014- 1970 22 Oct, 2017 Back pain M54.9 [facility] [address] [place] [address] 35472- 5754 13 Oct, 2017 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 [facility] [id number] [place] [address] 78325- 8518 September, 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 ; Medication monitoring encounter Z51.81 ; Back pain M54.9 ; Weakness R53.1 ; Cigarette nicotine dependence without complication F17.210 ; Coronary artery disease I25.10 and Peripheral vascular disease I73.9 [facility] [address] 68522- 4818 September, Back pain M54.9 [facility] [address] 28971- 9427 Aug, Back pain M54.9 [facility] [address] 70648- 9226 Aug, [facility] [address] 51345- 3929 Aug, Back pain M54.9 [facility] [address] 98965- 7391 Jul, Back pain M54.9 [facility] [address] 54347- 3228 Jun, [facility] [id number] [place] [address] 62790- 2770 Jun, Back pain M54.9 [facility] [id number] [place] [address] 16393 2544 May, Back pain M54.9 [facility] [id number] [place] [address] 47428- 9653 May, Back pain M54.9 [facility] [id number] [place] [address] 03777- 1006 May, Hypertension I10 ; Back pain M54.9 and Cigarette nicotine dependence without complication F17.210 [facility] [id number] [place] [address] 66464- 6947 Apr, Back pain M54.9 [facility] [id number] [place] [address] 83079- 7722 Apr, Hypokalemia E87.6 [facility] [id number] [place] [address] 74185- 2053 Apr, Hypokalemia E87.6 [facility] [address] 39765- 3960 Mar, Back pain M54.9 [facility] [address] 61517- 8662 Mar, [facility] [address] 79103- 9544 Mar, Back pain M54.9 ; Coronary artery disease I25.10 and Acute nasopharyngitis J00 [facility] [address] 44661- 5233 Mar, Back pain M54.9 [facility] [id number] [place] [address] 62249- 1158 Feb, Back pain M54.9 [facility] [id number] [place] [address] 65289- 0786 Jan, Anemia due to blood loss D50.0 and Hypokalemia E87.6 [facility] [id number] [place] [address] 02296- 8088 18 Jan, 2017 [facility] [id number] [place] [address] 96167- 9247 11 Jan, 2017 Hypokalemia E87.6 [facility] [id number] [place] [address] 75382- 5011 08 Jan, 2017 Back pain M54.9 [facility] [id number] [place] [address] 98888- 6396 Jan, [facility] [id number] [place] [address] 90936- 8227 Dec, Hypertension I10 and Back pain M54.9 [facility] [address] [place] [address] 13895- 0313 29 Oct, 2016 Back pain M54.9 [facility] [address] [place] [address] 01440- 2022 15 Oct, 2016 Back pain M54.9 [facility] [id number] [place] [address] 07616- 9205 07 Oct, 2016 Back pain M54.9 [facility] [id number] [place] [address] 95769- 6353 September, Back pain M54.9 [facility] [id number] [place] [address] 53978- 3590 Aug, Back pain M54.9 [facility] [id number] [place] [address] 84855- 1153 Aug, Epistaxis R04.0 [facility] [id number] [place] [address] 54732- 4358 Jul, [facility] [id number] [place] [address] 49174- 7117 Jul, Back pain M54.9 [facility] [id number] [place] [address] 95616- 4930 15 Jun, 2016 Back pain M54.9 [facility] [id number] [place] [address] 26614- 5211 Jun, Localized edema R60.0 [facility] [id number] [place] [address] 24033- 1027 Jun, [facility] [id number] [place] [address] 99910- 4570 06 Jun, 2016 Anemia due to blood loss D50.0 ; Venous insufficiency I87.2 ; Hypertension I10 and Plantar fasciitis M72.2 [facility] [id number] [place] [address] 25760- 9587 May, Back pain M54.9 [place] [address] [id number] [place] [address] 78021- 3132 May, [place] [address] [place] [address] [id number] [place] [address] 47669- 5418 May, 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 ; Anemia due to blood loss D50.0 and Venous insufficiency I87.2 [place] [address] [address] [id number] [place] [address] 96605- 9882 May, Back pain M54.9 [place] [address] [place] [id number] [place] [address] 35629- 7865 May, Anemia due to blood loss D50.0 [place] [address] [address] [id number] [place] [address] 83525- 1767 May, Localized edema R60.0 [place] [address] [place] [id number] [place] [address] 46132- 5357 May, Blood loss anemia D50.0 ; Localized edema R60.0 and Coronary artery disease I25.10 [place] [address] [place] [id number] [place] [address] 11962- 3844 Apr, Blood loss anemia D50.0 [place] [address] [place] [address] [id number] [place] [address] 78393- 9718 Apr, Epistaxis R04.0 ; Anemia, unspecified type D64.9 and Hyponatremia E87.1 [place] [address] [place] [id number] [place] [address] 95948- 2234 Apr, [place] [address] [place] [id number] [place] [address] 29836- 1139 Apr, Back pain M54.9 [place] [address] [place] [address] 53702- 3576 Apr, Back pain M54.9 [place] [address] [facility] [id number], [place] [address]- 6194 Mar, [facility] [address] [facility] [id number] [place] [address] 82197- 2042 Mar, Back pain M54.9 [facility] [address] [facility] [id number], [place] [address]- 3159 Feb, [facility] [address] [facility] [id number] [place] [address] 37724- 4213 Feb, [facility] [address] [facility] [id number] [place] [address] 07702- 7697 Jan, [facility] [address] [facility] [id number] [place] [address] 59563- 6469 Dec, [facility] [address] [facility] [id number] [place] [address] 26770- 9377 Dec, [facility] [address] [place] [id number] [place] [address] 85313- 5389 Dec, Arthritis, 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 and Leg weakness, bilateral M62.81 [facility] [address] [place] [address] 69226- 9067 Dec, [facility] [address] [facility] [id number], [place] [address]- 7720 Oct, Back pain M54.9 [facility] [address] [place] [address] 72314- 0890 Oct, Back pain M54.9 [facility] [address] [facility] [id number], [place] [address]- 4900 September, Back pain M54.9 [facility] [address] [facility] [id number] [place] [address] 01801- 1508 Aug, Back pain M54.9 [facility] [address] [facility] [id number], [place] [address]- 9198 Aug, Back pain M54.9 [facility] [address] [address]- 3155 14 Jul, 2015 [facility] [address] [id number] [place] [address] 59521- 9742 07 Jul, 2015 Back pain M54.9 [facility] [id number] [place] [address] 20419- 1075 16 Jun, 2015 [facility] [address] [id number] [place] [address] 24310- 3833 03 Jun, 2015 Back pain M54.9 [facility] [address] [id number] [place] [address] 33816- 1527 15 May, 2015 half-way use of drug Z79.899 ; Back pain M54.9 ; Hyperlipidemia E78.5 ; Hypertension I10 and GERD (gastroesophageal reflux disease) K21.9 [place] [address] [place] [id number] [place] [address] 99192- 4967 13 May, 2015 Arthritis M19.90 [facility] [address] [place] [id number] [place] [address] 92855- 2258 16 Apr, 2015 [place] [address] [place] [id number] [place] [address] 10931- 6851 Apr, [facility] [address] [id number] [place] [address] 57863- 5789 18 Mar, 2015 [place] [address] [place] [id number] [place] [address] 77665- 5167 Mar, [facility] [address] [id number] [place] [address] 33961- 9633 Feb, Arthritis M19.90 ; Encounter for immunization Z23 ; Contusion of right hip S70.01XA and Coronary artery disease I25.10 [facility] [address] [address]- 8300 Jan, [facility] [address] [place] [id number] [place] [address] 08194- 6258 Jan, [facility] [address] [id number] [place] [address]- 3845 Dec, Acute bronchitis 466.0 and Unspecified arthropathy, site unspecified 716.90 [facility] [address] [id number] [place] [address]- 5829 Dec, [facility] [address] [id number] [place] [address]- 8433 Dec, [facility] [address] [id number] [place] [address]- 3353 Nov, [facility] [address] [id number] [place] [address]- 5242 Nov, [facility] [address] [id number] [place] [address]- 7382 Nov, [facility] [address] [facility] [id number] [place] [address]- 6725 Oct, [facility] [address] [id number] [place] [address]- 8464 Oct, [facility] [address] [id number] [place] [address]- 6875 Oct, Unspecified arthropathy, site unspecified 716.90 [facility] [address] [facility] [id number] [place] [address]- 1769 Oct, [facility] [address] [facility] [id number] [place] [address]- 5492 September, [facility] [address] [facility] [id number] [place] [address]- 6619 September, [facility] [address] [facility] [id number] [place] [address]- 6048 Aug, [facility] [address] [id number] [place] [address]- 5090 Aug, [facility] [address] [facility] [id number] [place] [address]- 8137 Jul, [facility] [place] [facility] [address] [id number] [place] [address]- 5615 Jul, [facility] [place] [facility] [address] [id number] [place] [address]- 5091 Jul, [facility] [place] [facility] [address] [id number] [place] [address]- 9176 Jul, [facility] [place] [facility] [address] [id number] [place] [address]- 3486 Jul, [facility] [place] [facility] [address] [id number] [place] [address]- 5847 Jul, [facility] [place] [facility] [address] [id number] [place] [address]- 1495 Jun, [facility] [place] [facility] [address] [id number] [place] [address]- 4750 Jun, [facility] [place] [facility] [address] [id number] [place] [address]- 3513 Jun, [facility] [place] [facility] [address] [id number] [place] [address]- 0730 Jun, [facility] [place] [facility] [address] [id number] [place] [address]- 4996 May, [facility] [place] [facility] [address] [id number], [place] [address]- 8173 May, [facility] [place] [facility] [address] [id number], [place] [address]- 4713 May, [facility] [place] [facility] [address] [id number], [place] [address]- 4946 May, [facility] [place] [facility] [address] [id number], [place] [address]- 7203 May, [facility] [place] [facility] [address] [id number] [place] [address]- 2646 May, [facility] [place] [facility] [address] [id number] [place] [address]- 9007 May, [facility] [place] [facility] [address] [id number] [place] [address]- 0324 May, [facility] [place] [facility] [address] [id number] [place] [address]- 1036 May, [facility] [place] [facility] [address] [id number] [place] [address]- 6377 May, [facility] [place] [facility] [address] [id number] [place] [address]- 0717 May, [facility] [place] [facility] [address] [id number] [place] [address]- 0850 Apr, [facility] [place] [facility] [address] [id number] [place] [address]- 4790 Apr, [facility] [place] [facility] [address] [id number] [place] [address]- 7193 Apr, [facility] [place] [facility] [address] [id number] [place] [address]- 8480 Apr, [facility] [place] [facility] [address] [id number] [place] [address]- 9233 Apr, [facility] [place] [facility] [address] [id number] [place] [address]- 7552 Mar, [facility] [place] [facility] [address] [id number] [place] [address]- 8344 Mar, [facility] [place] [facility] [address] [id number] [place] [address]- 6669 Feb, [facility] [place] [facility] [address] [id number] [place] [address]- 9170 Feb, [facility] [place] [facility] [address] [id number] [place] [address]- 4946 Feb, [facility] [place] [facility] [address] [id number] [place] [address]- 0171 Feb, [facility] [place] [facility] [address] [id number] [place] [address]- 9617 Jan, [facility] [place] [facility] [address] [id number] [place] [address]- 5017 Jan, [facility] [place] [facility] [address] [id number] [place] [address]- 3809 Dec, [facility] [place] [facility] [address] [id number] [place] [address]- 6920 Dec, [facility] [place] [facility] [address] [id number] [place] [address]- 0303 Nov, [facility] [place] [facility] [address] [id number] [place] [address]- 7446 Nov, [facility] [place] [facility] [address] [id number] [place] [address]- 7053 Oct, [facility] [place] [facility] [address] [id number] [place] [address]- 1099 Oct, [facility] [place] [facility] [address] [id number] [place] [address]- 4085 Oct, [facility] [place] [facility] [address] [id number] [place] [address]- 3213 Oct, [facility] [place] [facility] [address] [id number] [place] [address]- 7240 Aug, [facility] [place] [facility] [address] [id number], [place] [address]- 2791 Aug, [facility] [place] [facility] [address] [id number] [place] [address]- 3346 Aug, [facility] [place] [facility] [address] [id number] [place] [address]- 0302 Aug, [facility] [place] [facility] [address] [id number] [place] [address]- 6572 May, [facility] [place] [facility] [address] [id number] [place] [address]- 6631 May, [facility] [address] [id number] [place] [address]- 5355 May, [facility] [place] [facility] [address] [id number] [place] [address]- 8198 May, [facility] [place] [facility] [address] [id number] [place] [address]- 9040 May, [facility] [place] [facility] [address] [id number] [place] [address]- 8396 May, [facility] [place] [facility] [address] [id number] [place] [address]- 3986 May, [facility] [place] [facility] [address] [id number] [place] [address]- 2737 Apr, [facility] [address] [id number] [place] [address]- 2206 Apr, [facility] [place] [facility] [address] [id number] [place] [address]- 7911 Apr, [facility] [place] [facility] [address] [id number] [place] [address]- 5435 Apr, [facility] [place] [facility] [address] [id number] [place] [address]- 0534 Apr, [facility] [place] [facility] [address] [id number] [place] [address]- 0728 Apr, [facility] [place] [facility] [address] [id number] [place] [address]- 7300 Apr, [facility] [place] [facility] [address] [id number] [place] [address]- 7900 Apr, [facility] [place] [facility] [address] [id number] [place] [address]- 7738 Apr, [facility] [place] [facility] [address] [id number] [place] [address]- 1310 Apr, [facility] [place] [facility] [address] [id number] [place] [address]- 6643 Mar, [facility] [place] [facility] [address] [id number] [place] [address]- 6069 Mar, [facility] [place] [facility] [address] [id number] [place] [address]- 2797 Mar, [facility] [place] [facility] [address] [id number] [place] [address]- 5707 Mar, [facility] [place] [facility] [address] [id number] [place] [address]- 4704 Feb, [facility] [place] [facility] [address] [id number] [place] [address]- 2311 Feb, [facility] [place] [facility] [address] [id number] [place] [address]- 5123 Jan, [facility] [place] [facility] [address] [id number] [place] [address]- 3907 Jan, [facility] [place] [facility] [address] [id number] [place] [address]- 9951 Jan, [facility] [place] [facility] [address] [id number] [place] [address]- 1862 Dec, [facility] [place] [facility] [address] [id number] [place] [address]- 9291 Dec, [facility] [place] [facility] [address] [id number] [place] [address]- 9555 Nov, [facility] [place] [facility] [address] [id number] [place] [address]- 6875 Oct, [facility] [place] [facility] [address] [id number] [place] [address]- 5056 Oct, [facility] [place] [facility] [address] [id number] [place] [address]- [address] Oct, [facility] [place] [facility] [address] [id number] [place] [address] September, [facility] [address] [id number] [place] [address] September, [facility] [address] [id number] [place] [address] Jun, [facility] [address] [id number] [place] [address] Jun, [facility] [address] [id number] [place] [address] Jun, [facility] [address] [id number] [place] [address] Jun, [facility] [address] [id number] [place] [address] May, [facility] [address] [id number] [place] [address] May, [facility] [address] [id number] [place] [address] May, [facility] [address] [id number] [place] [address] May, [facility] [address] [id number] [place] [address] Apr, [facility] [address] [id number] [place] [address] Apr, [facility] [place] [facility] [address] [id number] [place] [address] Apr, [facility] [place] [facility] [address] [id number] [place] [address] Apr, [facility] [place] [facility] [address] [id number] [place] [address] Apr, [facility] [place] [facility] [address] [id number] [place] [address] Apr, [facility] [place] [facility] [address] [id number] [place] [address] 08 Mar, 2012 [facility] [place] [facility] [address] [id number] [place] [address] Mar, [facility] [place] [facility] [address] [id number] [place] [address] Mar, [facility] [place] [facility] [address] [id number] [place] [address] Mar, [facility] [place] [facility] [address] [id number] [place] [address] Feb, [facility] [place] [facility] [address] [id number] [place] [address] Feb, [facility] [place] [facility] [address] [id number] [place] [address] Feb, [facility] [place] [facility] [address] [id number] [place] [address] Feb, [facility] [place] [facility] [address] [id number] [place] [address] 10 Feb, 2012 [facility] [place] [facility] [address] [id number] [place] [address] 17 Jan, 2012 [facility] [place] [facility] [address] [id number] [place] [address] 13 Jan, 2012 [facility] [place] [facility] [address] [id number] [place] [address] 12 Jan, 2012 [facility] [place] [facility] [address] [id number] [place] [address] 12 Jan, 2012 [facility] [place] [facility] [address] [id number] [place] [address] 11 Jan, 2012 [facility] [place] [facility] [address] [id number] [place] [address] 14 Dec, 2011 [facility] [place] [facility] [address] [id number] [place] [address] 17 Nov, 2011 [facility] [address] [id number] [place] [address] 13 Nov, 2011 [facility] [place] [facility] [address] [id number] [place] [address] Nov, [facility] [place] [facility] [address] [id number] [place] [address] Nov, [facility] [place] [facility] [address] [id number] [place] [address] Nov, [facility] [place] [facility] [address] [id number] [place] [address] 14 Oct, 2011 [facility] [place] [facility] [address] [id number] [place] [address] September, [facility] [place] [facility] [address] [id number] [place] [address] September, [facility] [place] [facility] [address] [id number] [place] [address] 13 Aug, 2011 [facility] [place] [facility] [address] [id number] [place] [address] Aug, [facility] [place] [facility] [address] [id number] [place] [address] Aug, [facility] [place] [facility] [address] [id number] [place] [address] Aug, [facility] [place] [facility] [address] [id number] [place] [address] 16 Jul, 2011 [facility] [place] [facility] [address] [id number] [place] [address] Jul, [facility] [place] [facility] [address] [id number] [place] [address] 10 Jun, 2011 [facility] [place] [facility] [address] [id number] [place] [address]- [address] 07 Jun, 2011 [facility] [place] [facility] [address] [id number] [place] [address] 06 Jun, 2011 [facility] [address] [id number] [place] [address] Jun, [facility] [facility] [address] [id number] [place] [address] May, [facility] [address] [id number] [place] [address] May, [facility] [address] [id number] [place] [address] May, [facility] [address] [id number] [place] [address] May, [facility] [address] [id number] [place] [address] May, [facility] [address] [id number] [place] [address] May, [facility] [address] [id number] [place] [address] Apr, [facility] [address] [id number] [place] [address] 24 Apr, 2011 [facility] [address] [id number] [place] [address] Apr, [facility] [address] [id number] [place] [address] Apr, [facility] [address] [id number] [place] [address] Apr, [facility] [address] [id number] [place] [address] 16 Apr, 2011 [facility] [address] [id number] [place] [address] 16 Apr, 2011 [facility] [address] [id number] [place] [address] Apr, [facility] [address] [id number] [place] [address] Mar, [facility] [place] [facility] [address] [id number] [place] [address] Mar, [facility] [place] [facility] [address] [id number] [place] [address] Mar, [facility] [place] [facility] [address] [id number] [place] [address] September, [facility] [place] [facility] [address] [id number] [place] [address] September, [facility] [place] [facility] [address] [id number] [place] [address] Jul, [facility] [place] [facility] [address] [id number] [place] [address] 10 Jun, 2010 [facility] [place] [facility] [address] [id number] [place] [address] Apr, [facility] [place] [facility] [address] [id number] [place] [address] Apr, [facility] [place] [facility] [address] [id number], [place] [address] Apr, [facility] [place] [facility] [address] [id number], [place] [address] Mar, [facility] [place] [facility] [address] [id number], [place] [address] 18 Mar, 2010 [facility] [place] [facility] [address] [id number] [place] [address] Mar, [facility] [place] [facility] [address] [id number] [place] [address] 20 Feb, 2010 [facility] [place] [facility] [address] [id number], [place] [address] 14 Jan, 2010 [facility] [place] [facility] [address] [id number], [place] [address] Apr, [facility] [address] [facility] [id number], [place] [address] Apr, [facility] [address] [facility] [id number], [place] [address] Mar, [facility] [address] [facility] [id number], [place] [address] Mar, [facility] [address] [facility] [id number], [place] [address] Feb, [facility] [address] [facility] [id number], [place] [address] Jun, IMMUNIZATIONS No Known Immunizations SOCIAL HISTORY Never Assessed REASON FOR VISIT Hydrocodone and tramadol- 08/05 PLAN OF CARE VITAL SIGNS MEDICATIONS Medication Instructions Dosage Frequency Start Date End Date Duration Status Tramadol HCl 50 mg Orally every 6 hrs 1 tablet 6h 28 days Active Hydrocodone-Acetaminophen 10-325 MG Orally every 4 hrs 1 tablet 4h Jul, 28 days Active RESULTS No Results PROCEDURES [...]
[2018-02-27] MEDS ORDERED: TRANEXAMIC ACID 100 MG/ML 10 ML INJECTION IV ONE (15:02)
--- OUTSIDE RECORDS SUMMARY | 2018-02-27 15:02 | XMS REPORT ---
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 Plant Operator Name Role Phone PRISCILA PITT Unavailable PROBLEMS Type Condition ICD9-CM Code NDE75-DL Code Onset Dates Condition Status SNOMED Code Problem Coronary artery disease I25.10 Active 44073097 Problem Cigarette nicotine dependence without complication F17.210 Active 05230879 Problem Venous insufficiency I87.2 Active 41593919 Problem Hyperlipidemia E78.5 Active 71666658 Problem Back pain M54.9 Active 077664539 Problem Hypertension I10 Active 35081811 Problem GERD (gastroesophageal reflux disease) K21.9 Active 093003231 ALLERGIES No Information ENCOUNTERS Encounter Location Date Diagnosis [facility] [address] [address] September, [facility] [address] [address]88- 4175 Aug, Back pain M54.9 [facility] [id number] [place] [address] 05696- 4344 Aug, [facility] [id number] [place] [address] 52908- 9972 Aug, Back pain M54.9 [facility] [id number] [place] [address] 45948- 6678 Jul, Back pain M54.9 [facility] [address] 38259- 7778 Jun, [facility] [id number] [place] [address] 76991- 5320 Jun, Back pain M54.9 [facility] [address] [place] [address] 4490 May, Back pain M54.9 [facility] [address] 60308- 8397 May, Back pain M54.9 [facility] [address] 93211- 9460 May, Hypertension I10 ; Back pain M54.9 and Cigarette nicotine dependence without complication F17.210 [facility] [address] 04659- 6983 Apr, Back pain M54.9 [facility] [address] 11073- 3082 Apr, Hypokalemia E87.6 [place] [address] 96582- 9874 Apr, Hypokalemia E87.6 [facility] [address] 22939- 0381 Mar, Back pain M54.9 [facility] [address] 41199- 8256 Mar, [facility] [address] 6[address]11- 3208 Mar, Back pain M54.9 ; Coronary artery disease I25.10 and Acute nasopharyngitis J00 [facility] [id number] [place] [address] 19011- 8638 Mar, Back pain M54.9 [facility] [address] 65917- 9474 Feb, Back pain M54.9 [facility] [address] 54762- 8253 Jan, Anemia due to blood loss D50.0 and Hypokalemia E87.6 [facility] [address] 12710- 6197 18 Jan, 2017 [facility] [id number] [place] [address] 32154- 4539 11 Jan, 2017 Hypokalemia E87.6 [facility] [id number] [place] [address] 23754 2546 08 Jan, 2017 Back pain M54.9 [facility] [id number] [place] [address] 52602 2546 08 Jan, 2017 [facility] [id number] [place] [address] 94372- 7900 14 Dec, 2016 Hypertension I10 and Back pain M54.9 [facility] [id number] [place] [address] 24369- 8538 29 Oct, 2016 Back pain M54.9 [facility] [id number] [place] [address] 83523- 9166 15 Oct, 2016 Back pain M54.9 [facility] [id number] [place] [address] 30347- 9991 07 Oct, 2016 Back pain M54.9 [facility] [id number] [place] [address] 34911- 7516 08 Sep, 2016 Back pain M54.9 [facility] [id number] [place] [address] 48601- 5226 12 Aug, 2016 Back pain M54.9 [facility] [id number] [place] [address] 39137- 8351 11 Aug, 2016 Epistaxis R04.0 [facility] [address] [place] [address] 36009- 7666 15 Jul, 2016 [facility] [id number] [place] [address] 40439- 4262 14 Jul, 2016 Back pain M54.9 [facility] [address] [place] [address] 89962- 2836 15 Jun, 2016 Back pain M54.9 [facility] [address] [address]- 3320 Jun, Localized edema R60.0 [facility] [id number] [place] [address] 60599- 7775 Jun, [facility] [id number] [place] [address] 86343- 8980 Jun, Anemia due to blood loss D50.0 ; Venous insufficiency I87.2 ; Hypertension I10 and Plantar fasciitis M72.2 [facility] [id number] [place] [address] 22190- 9843 May, Back pain M54.9 [facility] [id number] [place] [address] 75259- 7224 May, [facility] [id number] [place] [address] 23164- 1267 May, 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0 ; Localized edema R60.0 and Coronary artery disease I25.10 [facility] [address] [place] [address] 14576- 0935 Apr, Blood loss anemia D50.0 [facility] [id number] [place] [address] 76452- 0311 Apr, Epistaxis R04.0 ; Anemia, unspecified type D64.9 and Hyponatremia E87.1 [facility] [id number] [place] [address] 87467- 2418 Apr, [facility] [id number] [place] [address] 59014- 9313 Apr, Back pain M54.9 [facility] [address] 64603- 0019 Apr, Back pain M54.9 [facility] [id number] [place] [address] 76265- 1620 Mar, [facility] [id number] [place] [address] 19909- 1891 Mar, Back pain M54.9 [facility] [address] 64021- 6402 Feb, [facility] [id number] [place] [address] 57462- 8197 Feb, [facility] [address] 70931- 5580 Jan, [facility] [id number] [place] [address] 98644- 7362 Dec, [facility] [id number] [place] [address] 87810- 6895 Dec, [facility] [id number] [place] [address] 76918- 5592 Dec, Arthritis, 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 and Leg weakness, bilateral M62.81 [facility] [id number] [place] [address] 61199- 4804 Dec, [facility] [id number] [place] [address] 36143- 6168 Oct, Back pain M54.9 [facility] [address] [place] [address]- 3564 Oct, Back pain M54.9 [facility] [id number] [place] [address] 95009- 4857 September, Back pain M54.9 [facility] [id number] [place] [address] 30257- 1661 Aug, Back pain M54.9 [facility] [address] 45037- 0435 Aug, Back pain M54.9 [facility] [id number] [place] [address] 76826- 9631 Jul, [facility] [id number] [place] [address] 84281- 1066 Jul, Back pain M54.9 [facility] [id number] [place] [address] 76792- 7153 16 Jun, 2015 [facility] [id number] [place] [address] 09451- 4602 Jun, Back pain M54.9 [facility] [id number] [place] [address] 62274- 8969 15 May, 2015 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 ; Back pain M54.9 ; Hyperlipidemia E78.5 ; Hypertension I10 and GERD (gastroesophageal reflux disease) K21.9 [facility] [id number] [place] [address] 40043- 6854 May, Arthritis M19.90 [facility] [id number] [place] [address] 25186- 4274 Apr, [facility] [id number] [place] [address] 96153- 9161 Apr, [facility] [id number] [place] [address] 40552- 7784 Mar, [facility] [id number] [place] [address] [place] [address]- 2966 Mar, [facility] [id number] [address]- 3046 Feb, Encounter for immunization Z23 ; Arthritis M19.90 ; Contusion of right hip S70.01XA and Coronary artery disease I25.10 [facility] [address] [address]- 4210 Jan, [facility] [id number] [place] [address] 05685- 0650 Jan, [facility] [id number] [place] [address] 28352- 4610 Dec, Acute bronchitis 466.0 and Unspecified arthropathy, site unspecified 716.90 [facility] [id number] [address]- 6754 Dec, [facility] [id number] [place] [address] 37768- 9211 Dec, [facility] [address] [address]- 4078 Nov, [facility] [id number] [address]- 8143 Nov, [facility] [address] [address]- 3339 Nov, [facility] [address] [address]- 8391 Oct, [facility] [address] [address]- 0680 Oct, [facility] [id number] [address]- 6314 Oct, Unspecified arthropathy, site unspecified 716.90 [facility] [address] [address]- 7067 Oct, [facility] [id number] [place] [address]- 3439 September, [facility] [address] [id number] [place] [address]- 5889 September, [facility] [place] [facility] [address] [id number] [place] [address]- 8750 Aug, [facility] [place] [facility] [address] [id number] [place] [address]- 5864 Aug, [facility] [place] [facility] [address] [id number] [place] [address]- 9321 Jul, [facility] [place] [facility] [address] [id number] [place] [address]- 5679 Jul, [facility] [place] [facility] [address] [id number] [place] [address]- 6347 Jul, [facility] [place] [facility] [address] [id number] [place] [address]- 7694 Jul, [facility] [place] [facility] [address] [id number] [place] [address]- 3565 Jul, [facility] [place] [facility] [address] [id number] [place] [address]- 0941 Jul, [facility] [place] [facility] [address] [id number] [place] [address]- 4516 Jun, [facility] [place] [facility] [address] [id number] [place] [address]- 5146 Jun, [facility] [place] [facility] [address] [id number] [place] [address]- 3196 Jun, [facility] [place] [facility] [address] [id number] [place] [address]- 6986 Jun, [facility] [place] [facility] [address] [id number] [place] [address]- 1476 May, [facility] [place] [facility] [address] [id number] [place] [address]- 9373 May, [facility] [place] [facility] [address] [id number] [place] [address]- 0732 May, [facility] [place] [facility] [address] [id number] [place] [address]- 8806 May, [facility] [place] [facility] [address] [facility] [id number] [place] [address]- 7476 May, [facility] [place] [facility] [address] [id number] [place] [address]- 7958 May, [facility] [place] [facility] [address] [id number] [place] [address]- 3827 May, [facility] [place] [facility] [address] [id number] [place] [address]- 4449 May, [facility] [place] [facility] [address] [id number] [place] [address]- 1463 May, [facility] [place] [facility] [address] [id number] [address]- 2198 May, [facility] [place] [facility] [address] [id number] [place] [address]- 1569 May, [facility] [place] [facility] [address] [id number] [place] [address]- 2932 Apr, [facility] [place] [facility] [address] [id number], [place] [address]- 5318 Apr, [facility] [place] [facility] [address] [id number], [place] [address]- 8866 Apr, [facility] [place] [facility] [address] [id number] [place] [address]- 6051 Apr, [facility] [place] [facility] [address] [id number], [place] [address]- 6836 Apr, [facility] [place] [facility] [address] [id number] [place] [address]- 2668 Mar, [facility] [place] [facility] [address] [id number] [place] [address]- 8599 Mar, [facility] [place] [facility] [address] [id number] [place] [address]- 9311 Feb, [facility] [place] [facility] [address] [id number] [place] [address]- 7296 Feb, [facility] [place] [facility] [address] [id number] [place] 6012 Feb, [facility] [place] [facility] [address] [id number] [place] [address]- 4460 Feb, [facility] [place] [facility] [address] [id number] [place] [address]- 9343 Jan, [facility] [place] [facility] [address] [id number] [place] [address]- 1271 Jan, [facility] [place] [facility] [address] [id number] [place] [address]- 0526 Dec, [facility] [place] [facility] [address] [id number] [place] [address]- 2581 Dec, [facility] [place] [facility] [address] [id number] [place] [address]- 2425 Nov, [facility] [place] [facility] [address] [id number] [place] [address]- 1048 Nov, [facility] [place] [facility] [address] [id number] [place] [address]- 9578 Oct, [facility] [place] [facility] [address] [id number] [place] [address]- 1671 Oct, [facility] [place] [facility] [address] [id number] [place] [address]- 0946 Oct, [facility] [place] [facility] [address] [id number] [place] [address]- 5485 Oct, [facility] [place] [facility] [address] [id number] [place] 2424 Aug, [facility] [place] [facility] [address] [id number] [place] [address]- 4572 Aug, [facility] [address] [id number] [place] [address]- 6583 Aug, [facility] [address] [id number] [place] [address]- 1841 Aug, [facility] [address] [id number] [place] [address]- 2479 May, [facility] [address] [id number] [place] [address]- 1731 May, [facility] [address] [id number] [place] [address]- 3686 May, [facility] [address] [id number] [place] [address]- 4449 May, [facility] [address] [id number] [place] [address]- 8019 May, [facility] [address] [id number] [place] [address]- 7272 May, [facility] [address] [id number] [place] [address]- 0129 May, [facility] [address] [id number] [place] [address]- 2435 Apr, [facility] [place] [facility] [address] [id number] [place] [address]- 7096 Apr, [facility] [place] [facility] [address] [id number] [place] [address]- 4180 Apr, [facility] [place] [facility] [address] [id number] [place] [address]- 3986 Apr, [facility] [place] [facility] [address] [id number] [place] [address]- 3228 Apr, [facility] [place] [facility] [address] [id number] [address]- 6740 Apr, [facility] [place] [facility] [address] [id number] [place] [address]- 9494 Apr, [facility] [place] [facility] [address] [id number] [place] [address]- 6829 Apr, [facility] [place] [facility] [address] [id number] [place] [address]- 0699 Apr, [facility] [place] [facility] [address] [id number] [place] [address]- 0524 Apr, [facility] [place] [facility] [address] [id number] [place] [address]- 8419 Mar, [facility] [place] [facility] [address] [id number] [place] [address]- 6729 Mar, [facility] [place] [facility] [address] [id number] [place] [address]- 9190 Mar, [facility] [place] [facility] [address] [id number] [place] [address]- 5707 Mar, [facility] [place] [facility] [address] [id number] [place] [address]- 8892 Feb, [facility] [place] [facility] [address] [id number] [place] [address]- 3964 Feb, [facility] [place] [facility] [address] [id number], [place] [address]- 7826 Jan, [facility] [place] [facility] [address] [id number], [place] [address]- 8654 Jan, [facility] [place] [facility] [address] [id number] [place] [address]- 7838 Jan, [facility] [place] [facility] [address] [id number] [place] 0996 Dec, [facility] [place] [facility] [address] [id number] [place] 9620 Dec, [facility] [place] [facility] [address] [id number] [place] [address]- 9238 Nov, [facility] [address] [id number] [place] [address]- 0105 Oct, [facility] [place] [facility] [address] [id number] [place] [address]- 6740 Oct, [facility] [address] [id number] [place] [address]- 5003 Oct, [facility] [address] [id number] [place] [address]- 1698 September, [facility] [address] [id number] [place] [address]- 7876 September, [facility] [address] [id number] [place] [address]- 5379 Jun, [facility] [address] [id number] [place] [address]- 7693 Jun, [facility] [address] [id number] [place] [address]- 7494 Jun, [facility] [address] [id number] [place] [address]- 5374 Jun, [facility] [address] [id number] [place] [address]- 8898 May, [facility] [address] [id number] [place] [address] May, [facility] [address] [id number] [place] [address] May, [facility] [place] [facility] [address] [id number] [place] [address] May, [facility] [place] [facility] [address] [id number] [place] [address] Apr, [facility] [place] [facility] [address] [id number] [place] [address] Apr, [facility] [place] [facility] [address] [id number] [place] [address] Apr, [facility] [place] [facility] [address] [id number], [place] [address] Apr, [facility] [place] [facility] [address] [facility] [id number] [place] [address] Apr, [facility] [place] [facility] [address] [id number], [place] [address] Apr, [facility] [place] [facility] [address] [id number] [place] [address] Mar, [facility] [place] [facility] [address] [facility] [id number], [place] [address] Mar, [facility] [place] [facility] [address] [facility] [id number], [place] [address] Mar, [facility] [place] [facility] [address] [id number], [place] [address] Mar, [facility] [place] [facility] [address] [facility] [id number], [place] [address] Feb, [facility] [place] [facility] [address] [facility] [id number], [place] [address] 31 Feb, 2012 [facility] [place] [facility] [address] [facility] [id number], [place] [address] Feb, [facility] [place] [facility] [address] [id number], [place] [address] 11 Feb, 2012 [facility] [place] [facility] [address] [id number], [place] [address] 10 Feb, 2012 [facility] [place] [facility] [address] [facility] [id number], [place] [address] 17 Jan, 2012 [facility] [place] [facility] [address] [facility] [id number], [place] [address] 13 Sep2011 [facility] [place] [facility] [address] [id number] [place] [address] 12 Jan, 2012 [facility] [place] [facility] [address] [id number] [place] [address] 12 Jan, 2012 [facility] [place] [facility] [address] [id number] [place] [address] 11 Jan, 2012 [facility] [place] [facility] [address] [id number] [place] [address] 14 Dec, 2011 [facility] [place] [facility] [address] [id number] [place] [address] 17 Nov, 2011 [facility] [place] [facility] [address] [id number] [place] [address] Nov, [facility] [place] [facility] [address] [id number] [place] [address] Nov, [facility] [address] [id number] [place] [address] Nov, [facility] [place] [facility] [address] [id number] [place] [address] Nov, [facility] [place] [facility] [address] [id number] [place] [address] 14 Oct, 2011 [facility] [place] [facility] [address] [id number] [place] [address] 16 Sep, 2011 [facility] [place] [facility] [address] [id number] [place] [address] September, [facility] [place] [facility] [address] [id number] [place] [address] 13 Aug, 2011 [facility] [place] [facility] [address] [id number] [place] [address] Aug, [facility] [place] [facility] [address] [id number] [place] [address] Aug, [facility] [place] [facility] [address] [id number] [place] [address] Aug, [facility] [place] [facility] [address] [id number] [place] [address] 16 Jul, 2011 [facility] [place] [facility] [address] [id number] [place] [address] Jul, [facility] [place] [facility] [address] [id number] [place] [address] Jun, [facility] [place] [facility] [address] [id number] [place] [address] Jun, [facility] [place] [facility] [address] [id number] [place] [address] Jun, [facility] [place] [facility] [address] [id number] [place] [address]- [address] Jun, [facility] [place] [facility] [address] [id number] [place] [address] May, [facility] [place] [facility] [address] [id number] [place] [address]- [address] May, [facility] [place] [facility] [address] [id number] [place] [address]- [address] May, [facility] [place] [facility] [address] [id number] [place] [address]- [address] May, [facility] [place] [facility] [address] [id number] [place] [address]- [address]27 May, [facility] [place] [facility] [address] [id number] [place] [address] May, [facility] [place] [facility] [address] [id number] [place] [address] Apr, [facility] [place] [facility] [address] [id number] [place] [address] Apr, [facility] [place] [facility] [address] [id number] [place] [address] Apr, [facility] [place] [facility] [address] [id number] [place] [address] Apr, [facility] [address] [id number] [place] [address] 20 Apr, 2011 [facility] [place] [facility] [address] [id number] [place] [address] 16 Apr, 2011 [facility] [address] [id number] [place] [address] 16 Apr, 2011 [facility] [place] [facility] [address] [id number] [place] [address] Apr, [facility] [address] [id number] [place] [address] Mar, [facility] [place] [facility] [address] [id number] [place] [address] Mar, [facility] [address] [id number] [place] [address] Mar, [facility] [place] [facility] [address] [id number] [place] [address] September, [facility] [address] [id number] [place] [address] September, [facility] [address] [id number] [place] [address] Jul, [facility] [address] [id number] [place] [address] 10 Jun, 2010 [facility] [place] [facility] [address] [id number] [place] [address] Apr, [facility] [place] [facility] [address] [id number] [place] [address] Apr, [facility] [place] [facility] [address] [id number] [place] [address] Apr, [facility] [place] [facility] [address] [id number] [place] [address] Mar, [facility] [place] [facility] [id number] [address] Mar, [facility] [id number] [address] Mar, [facility] [id number] [address] Feb, [facility] [id number] [address] Jan, [facility] [id number] [place] [address] Apr, [facility] [id number] [place] [address] Apr, [facility] [id number] [place] [address] Mar, [facility] [id number] [place] [address] Mar, [facility] [id number] [address] Feb, [facility] [id number] [address] Jun, IMMUNIZATIONS No Known Immunizations SOCIAL HISTORY Never Assessed REASON FOR VISIT Potassium Rx PLAN OF CARE VITAL SIGNS MEDICATIONS Medication Instructions Dosage Frequency Start Date End Date Duration Status Klor-Con 10 10 MEQ Orally 3 times a day 1 tablet with food 8h Jan, Feb, 30 day(s) Active RESULTS No Results PROCEDURES No Known [...]
--- OUTSIDE RECORDS SUMMARY | 2018-02-27 15:02 | XMS REPORT ---
Author Author PRISCILA PITT [facility] Address [address] [place] [address] Care Team Providers Care Social Media Marketing Specialist Name Role Phone PRISCILA PITT Unavailable PROBLEMS Type Condition ICD9-CM Code DUZ53-OB Code Onset Dates Condition Status SNOMED Code Problem Venous insufficiency I87.2 Active 74100804 Problem Hypertension I10 Active 26679614 Problem Back pain M54.9 Active 103719051 Problem Coronary artery disease I25.10 Active 23959071 Problem GERD (gastroesophageal reflux disease) K21.9 Active 663213140 Problem Hyperlipidemia E78.5 Active 15534483 ALLERGIES No Information SOCIAL HISTORY Never Assessed PLAN OF CARE VITAL SIGNS MEDICATIONS Unknown Medications RESULTS No Results PROCEDURES No Known procedures IMMUNIZATIONS No Known Immunizations MEDICAL (GENERAL) HISTORY Type Description Date Medical [...]
--- OUTSIDE RECORDS SUMMARY | 2018-02-27 15:03 | XMS REPORT ---
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 Active 46928585 Problem Peripheral vascular disease I73.9 Active 871216827 Problem Hypertension I10 Active 37326701 Problem GERD (gastroesophageal reflux disease) K21.9 Active 870879634 Problem Cigarette nicotine dependence without complication F17.210 Active 90937709 Problem Venous insufficiency I87.2 Active 56472607 ALLERGIES No Information ENCOUNTERS Encounter Location Date Diagnosis [place] [id number] [place] [address] 93626- 6662 12 Nov, 2017 [place] [id number] [place] [address] 60358- 1077 Oct, Back pain M54.9 [facility] [id number] [place] [address] 73776- 0430 13 Oct, 2017 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 [facility] [id number] [place] [address] 58476- 9597 September, shelter current use of opiate analgesic Z79.891 ; Medication monitoring encounter Z51.81 ; Back pain M54.9 ; Weakness R53.1 ; Cigarette nicotine dependence without complication F17.210 ; Coronary artery disease I25.10 and Peripheral vascular disease I73.9 [facility] [id number] [place] [address] 75291- 0908 September, Back pain M54.9 [facility] [id number] [place] [address] 71959- 5476 Aug, Back pain M54.9 [facility] [id number] [place] [address] 93156 2546 Aug, [facility] [id number] [place] [address] 53616- 2186 Aug, Back pain M54.9 [facility] [id number] [place] [address] 08362- 6037 Jul, Back pain M54.9 [facility] [id number] [place] [address] 43699- 3276 Jun, [facility] [id number] [place] [address] 56915- 7041 Jun, Back pain M54.9 [facility] [id number] [place] [address] 23420- 0444 May, Back pain M54.9 [facility] [id number] [place] [address] 62686- 4476 May, Back pain M54.9 [facility] [id number] [place] [address] 30553- 3591 May, Hypertension I10 ; Back pain M54.9 and Cigarette nicotine dependence without complication F17.210 [facility] [id number] [place] [address] 60314- 7084 Apr, Back pain M54.9 [facility] [id number] [place] [address] 58317- 9516 Apr, Hypokalemia E87.6 [facility] [id number] [place] [address] 12385- 2546 14 Apr, 2017 Hypokalemia E87.6 [facility] [id number] [place] [address] 30270- 3257 Mar, Back pain M54.9 [facility] [id number] [place] [address] 28803- 0295 Mar, [facility] [id number] [place] [address] 95201- 1620 Mar, Back pain M54.9 ; Coronary artery disease I25.10 and Acute nasopharyngitis J00 [facility] [id number] [place] [address] 37781- 5672 Mar, Back pain M54.9 [facility] [id number] [place] [address] 38713- 1983 Feb, Back pain M54.9 [facility] [id number] [place] [address] 74669- 5763 26 Jan, 2017 Anemia due to blood loss D50.0 and Hypokalemia E87.6 [facility] [id number] [place] [address] 15191- 3541 18 Jan, 2017 [facility] [id number] [place] [address] 85870- 6609 11 Jan, 2017 Hypokalemia E87.6 [facility] [id number] [place] [address] 25080- 0718 08 Jan, 2017 Back pain M54.9 [facility] [id number] [place] [address] 24621- 2279 08 Jan, 2017 [facility] [id number] [place] [address] 41811- 7384 14 Dec, 2016 Hypertension I10 and Back pain M54.9 [facility] [id number] [place] [address] 75389- 0769 Oct, Back pain M54.9 [facility] [id number] [place] [address] 93254- 2802 Oct, Back pain M54.9 [facility] [address] [place] [address] 7681 07 Oct, 2016 Back pain M54.9 [facility] [id number] [place] [address] 01009- 4504 08 Sep, 2016 Back pain M54.9 [facility] [id number] [place] [address] 59520- 0068 Aug, Back pain M54.9 [facility] [id number] [place] [address] 20185- 4909 Aug, Epistaxis R04.0 [facility] [id number] [place] [address] 69502- 8758 15 Jul, 2016 [facility] [id number] [place] [address] 47939- 0878 14 Jul, 2016 Back pain M54.9 [facility] [id number] [place] [address] 09892- 1456 15 Jun, 2016 Back pain M54.9 [facility] [id number] [place] [address] 87272- 3252 Jun, Localized edema R60.0 [facility] [id number] [place] [address] 35572- 9306 Jun, [facility] [id number] [place] [address] 28135- 2623 06 Jun, 2016 Anemia due to blood loss D50.0 ; Venous insufficiency I87.2 ; Hypertension I10 and Plantar fasciitis M72.2 [facility] [address] [address]- 3309 May, Back pain M54.9 [facility] [address] [place] [address] 74571- 9413 May, [facility] [address] [place] [address] 55903- 2611 May, shelter use of drug Z79.899 ; Anemia due to blood loss D50.0 and Venous insufficiency I87.2 [facility] [id number] [place] [address] 16704- 8365 May, Back pain M54.9 [facility] [id number] [place] [address] 80103- 9930 May, Anemia due to blood loss D50.0 [facility] [id number] [place] [address] 88345- 6515 May, Localized edema R60.0 [facility] [id number] [place] [address] 15858- 0576 May, Blood loss anemia D50.0 ; Localized edema R60.0 and Coronary artery disease I25.10 [facility] [id number] [place] [address] 25859- 4726 Apr, Blood loss anemia D50.0 [facility] [id number] [place] [address] 02888- 6357 Apr, Epistaxis R04.0 ; Anemia, unspecified type D64.9 and Hyponatremia E87.1 [facility] [id number] [place] [address] 71613- 4978 Apr, [facility] [id number] [place] [address] 15614- 5914 Apr, Back pain M54.9 [facility] [id number] [place] [address] 07617- 4908 Apr, Back pain M54.9 [facility] [id number] [place] [address] 53955- 2672 Mar, [facility] [id number] [place] [address] 91314- 8314 Mar, Back pain M54.9 [facility] [id number] [place] [address] 66345- 9192 Feb, [facility] [address] [place] [address]- 6207 Feb, [facility] [address] [facility] [id number] [place] [address] 06728- 0031 Jan, [facility] [address] [facility] [id number] [place] [address] 11728- 2028 Dec, [facility] [address] [facility] [id number] [place] [address] 19414- 3145 Dec, [facility] [address] [facility] [id number] [place] [address] 65894- 1772 Dec, Arthritis, 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 and Leg weakness, bilateral M62.81 [facility] [id number] [place] [address] 04585- 4829 Dec, [facility] [id number] [place] [address] 63594- 0888 Oct, Back pain M54.9 [facility] [id number] [place] [address] 83295- 1067 Oct, Back pain M54.9 [facility] [id number] [place] [address] 46692- 0097 September, Back pain M54.9 [facility] [address] [place] [address] 30998- 3986 Aug, Back pain M54.9 [facility] [address] [place] [address] 74368- 7651 Aug, Back pain M54.9 [facility] [address] [facility] [id number] [address]- 3246 Jul, [facility] [address] [facility] [id number] [place] [address] 42675- 8456 Jul, Back pain M54.9 [facility] [id number] [address]- 9676 Jun, [facility] [id number] [place] [address] 34820- 1419 03 Jun, 2015 Back pain M54.9 [place] [address] 11694- 9139 15 May, 2015 shelter use of drug Z79.899 ; Back pain M54.9 ; Hyperlipidemia E78.5 ; Hypertension I10 and GERD (gastroesophageal reflux disease) K21.9 [place] [address] 99907- 8714 May, Arthritis M19.90 [place] [address] 32140- 2318 Apr, [place] [address] 81591- 4861 Apr, [place] [address] 58590- 2935 Mar, [place] [address] 34143- 0357 Mar, [place] [address] 35713- 3379 Feb, Arthritis M19.90 ; Encounter for immunization Z23 ; Contusion of right hip S70.01XA and Coronary artery disease I25.10 [place] [id number] [place] [address] 97989- 3723 Jan, [place] [id number] [place] [address] 67444- 7788 Jan, [facility] [id number] [place] [address] 96906- 9707 Dec, Acute bronchitis 466.0 and Unspecified arthropathy, site unspecified 716.90 [facility] [id number] [place] [address] 47539- 5364 Dec, [place] [address] 14115- 1578 Dec, [facility] [address] [id number] [place] [address]- 4919 Nov, [facility] [address] [id number] [place] [address]- 0111 Nov, [facility] [address] [id number] [place] [address]- 0895 Nov, [facility] [place] [facility] [address] [id number] [place] [address]- [address] Oct, [facility] [address] [id number] [place] [address]- 2845 Oct, [facility] [address] [id number] [place] [address]- 5437 Oct, Unspecified arthropathy, site unspecified 716.[address] [facility] [address] [facility] [id number] [place] [address]- 3508 Oct, [facility] [address] [facility] [id number] [place] [address]- 8499 September, [facility] [address] [facility] [id number] [place] [address]- 1287 September, [facility] [address] [facility] [id number] [place] [address]- 5141 Aug, [facility] [address] [facility] [id number] [place] [address]- 0306 Aug, [facility] [place] [facility] [address] [id number] [place] [address]- 1326 Jul, [facility] [place] [facility] [address] [id number] [place] [address]- 4347 Jul, [facility] [place] [facility] [address] [facility] [id number] [place] [address]- 4875 Jul, [facility] [place] [facility] [address] [facility] [id number] [place] [address]- 8066 Jul, [facility] [place] [facility] [address] [id number] [place] [address]- 9329 Jul, [facility] [place] [facility] [address] [id number] [place] [address]- 8877 Jul, [facility] [place] [facility] [address] [id number] [place] [address]- 1735 Jun, [facility] [place] [facility] [address] [id number] [place] [address]- 0593 Jun, [facility] [place] [facility] [address] [id number] [place] [address]- 2240 Jun, [facility] [place] [facility] [address] [id number] [place] [address]- 7484 Jun, [facility] [place] [facility] [address] [id number] [place] [address]- 1990 May, [facility] [place] [facility] [address] [id number] [place] [address]- 9884 May, [facility] [place] [facility] [address] [id number] [place] [address]- 4698 May, [facility] [place] [facility] [address] [id number] [place] [address]- 3057 May, [facility] [place] [facility] [address] [id number] [place] [address]- 3803 May, [facility] [place] [facility] [address] [id number] [address]- 3622 May, [facility] [place] [facility] [address] [id number] [place] [address]- 3156 May, [facility] [place] [facility] [address] [id number] [place] [address]- 5345 May, [facility] [place] [facility] [address] [id number] [place] [address]- 6554 May, [facility] [place] [facility] [address] [id number] [place] [address]- 3706 May, [facility] [place] [facility] [address] [id number] [place] [address]- 4435 May, [facility] [place] [facility] [address] [id number] [place] [address]- 0676 Apr, [facility] [place] [facility] [address] [id number] [place] [address]- 5107 Apr, [facility] [place] [facility] [address] [id number] [place] [address]- 5122 Apr, [facility] [place] [facility] [address] [id number] [place] [address]- 3177 Apr, [facility] [place] [facility] [address] [id number] [place] [address]- 1625 Apr, [facility] [place] [facility] [address] [id number] [place] [address]- 9347 Mar, [facility] [place] [facility] [address] [id number] [place] [address]- 3252 Mar, [facility] [place] [facility] [address] [id number] [place] [address]- 2124 Feb, [facility] [place] [facility] [address] [id number] [place] [address]- 1200 Feb, [facility] [place] [facility] [address] [id number] [place] [address]- 4475 Feb, [facility] [place] [facility] [address] [id number], [place] [address]- 0178 Feb, [facility] [place] [facility] [address] [id number] [place] [address]- 7147 Jan, [facility] [place] [facility] [address] [id number] [place] [address]- 7620 Jan, [facility] [place] [facility] [address] [id number] [place] [address]- 2431 Dec, [facility] [place] [facility] [address] [id number] [place] [address]- 4149 Dec, [facility] [address] [id number] [place] [address]- 9131 Nov, [facility] [place] [facility] [address] [id number] [place] [address]- 1867 Nov, [facility] [place] [facility] [address] [id number] [place] [address]- 6204 Oct, [facility] [place] [facility] [address] [id number] [place] [address]- 6670 Oct, [facility] [place] [facility] [address] [id number] [place] [address]- 7672 Oct, [facility] [place] [facility] [address] [id number] [place] [address]- 7975 Oct, [facility] [place] [facility] [address] [id number] [place] [address]- 8567 Aug, [facility] [place] [facility] [address] [id number] [place] [address]- 7759 Aug, [facility] [place] [facility] [address] [id number] [place] [address]- 4662 Aug, [facility] [place] [facility] [address] [id number] [place] [address]- 4270 Aug, [facility] [place] [facility] [address] [id number] [place] [address]- 3247 May, [facility] [place] [facility] [address] [id number] [place] [address]- 2378 May, [facility] [place] [facility] [address] [id number] [place] [address]- 2834 May, [facility] [place] [facility] [address] [id number] [place] [address]- 1465 May, [facility] [place] [facility] [address] [id number] [place] [address]- 8650 May, [facility] [address] [id number] [place] [address]- 2100 May, [facility] [place] [facility] [address] [id number] [place] [address]- 8536 May, [facility] [place] [facility] [address] [id number] [place] [address]- 4044 Apr, [facility] [place] [facility] [address] [id number] [place] [address]- 0406 Apr, [facility] [address] [id number] [place] [address]- 0467 Apr, [facility] [place] [facility] [address] [id number] [place] [address]- 7906 Apr, [facility] [address] [id number] [place] [address]- 9786 Apr, [facility] [address] [id number] [place] [address]- 4287 Apr, [facility] [place] [facility] [address] [id number] [place] [address]- 5177 Apr, [facility] [place] [facility] [address] [id number] [place] [address]- 8098 Apr, [facility] [place] [facility] [address] [id number] [place] [address]- 0928 Apr, [facility] [place] [facility] [address] [id number], [place] [address]- 7140 Apr, [facility] [place] [facility] [address] [id number] [place] [address]- 2047 Mar, [facility] [place] [facility] [address] [id number] [place] [address]- 9676 Mar, [facility] [place] [facility] [address] [facility] [id number], [place] [address]- 1352 Mar, [facility] [place] [facility] [address] [id number], [place] [address]- 7542 Mar, [facility] [address] [id number] [place] [address]- 9940 Feb, [facility] [place] [facility] [address] [id number] [place] [address]- 6610 Feb, [facility] [address] [id number] [place] [address]- 6135 Jan, [facility] [place] [facility] [address] [id number] [place] [address]- 3350 Jan, [facility] [address] [id number] [place] [address]- 0604 Jan, [facility] [address] [id number] [place] [address]- 2780 Dec, [facility] [address] [facility] [id number] [place] [address]- 8995 Dec, [facility] [place] [facility] [address] [facility] [id number] [place] [address]- 6869 Nov, [facility] [address] [facility] [id number] [place] [address]- 1534 Oct, [facility] [place] [facility] [address] [facility] [id number] [place] [address]- 0862 Oct, [facility] [place] [facility] [address] [id number], [place] [address]- 3674 Oct, [facility] [place] [facility] [address] [facility] [id number], [place] [address]- 6524 September, [facility] [place] [facility] [address] [id number] [place] 2390 September, [facility] [place] [facility] [address] [facility] [id number], [place] [address]- 5485 Jun, [facility] [place] [facility] [address] [facility] [id number], [place] [address]- 7117 Jun, [facility] [place] [facility] [address] [id number] [place] [address]- 1461 Jun, [facility] [place] [facility] [address] [id number] [place] [address]- 8372 Jun, [facility] [place] [facility] [address] [id number] [place] [address]- 5468 May, [facility] [place] [facility] [address] [id number] [place] [address]- 0[address] May, [facility] [place] [facility] [address] [id number] [place] [address] May, [facility] [place] [facility] [address] [id number] [place] [address] May, [facility] [address] [id number] [place] [address] [address] Apr, [facility] [address] [id number] [place] [address] [address] Apr, [facility] [address] [id number] [place] [address] Apr, [facility] [place] [facility] [address] [id number] [place] [address] Apr, [facility] [place] [facility] [address] [id number] [place] [address] Apr, [facility] [place] [facility] [address] [id number] [place] [address] Apr, [facility] [place] [facility] [address] [id number] [place] [address] Mar, [facility] [place] [facility] [address] [id number] [place] [address] 99[address] Mar, [facility] [place] [facility] [address] [id number] [place] [address] Mar, [facility] [place] [facility] [address] [id number], [place] [address] Mar, [facility] [place] [facility] [address] [id number] [place] [address] [address] Feb, [facility] [place] [facility] [address] [id number] [place] [address] 31 Feb, 2012 [facility] [place] [facility] [address] [id number] [place] [address] Feb, [facility] [place] [facility] [address] [id number] [place] [address] Feb, [facility] [place] [facility] [address] [id number] [place] [address] 10 Feb, 2012 [facility] [place] [facility] [address] [id number] [place] [address] 17 Jan, 2012 [facility] [place] [facility] [address] [id number] [place] [address] 13 Jan, 2012 [facility] [place] [facility] [address] [id number] [place] [address] 12 Jan, 2012 [facility] [place] [facility] [address] [id number] [place] [address]- [address] 12 Jan, 2012 [facility] [place] [facility] [address] [id number] [place] [address]- [address] 11 Jan, 2012 [facility] [place] [facility] [address] [id number] [place] [address] 14 Dec, 2011 [facility] [place] [facility] [address] [id number], [place] [address] 17 Nov, 2011 [facility] [place] [facility] [address] [id number] [place] [address] 13 Nov, 2011 [facility] [place] [facility] [address] [id number] [place] [address] 12 Nov, 2011 [facility] [place] [facility] [address] [id number] [place] [address] Nov, [facility] [place] [facility] [address] [id number] [place] [address] 09 Nov, [address] [facility] [address] [id number] [place] [address] 14 Oct, [address] [facility] [address] [id number] [place] [address] 16 Sep, [address] [facility] [address] [id number] [place] [address] September, [facility] [address] [id number] [place] [address] 13 Aug, [address] [facility] [address] [id number] [place] [address] Aug, [facility] [address] [id number] [place] [address] Aug, [facility] [address] [id number] [place] [address] Aug, [facility] [address] [id number] [place] [address] 16 Jul, [address] [facility] [address] [id number] [place] [address] Jul, [facility] [address] [id number] [place] [address] Jun, [facility] [address] [id number] [place] [address] 07 Jun, 2011 [facility] [address] [id number] [place] [address] Jun, [facility] [place] [facility] [address] [id number] [place] [address] Jun, [facility] [address] [id number] [place] [address] May, [facility] [place] [facility] [address] [address] [id number] [place] [address] May, [facility] [place] [facility] [address] [id number] [place] [address] May, [facility] [place] [facility] [address] [id number] [place] [address] May, [facility] [place] [facility] [address] [id number] [place] [address] May, [facility] [place] [facility] [address] [id number] [place] [address] May, [facility] [place] [facility] [address] [id number] [place] [address] Apr, [facility] [place] [facility] [address] [id number] [place] [address] Apr, [facility] [place] [facility] [address] [id number] [place] [address] Apr, [facility] [place] [facility] [address] [id number] [place] [address] Apr, [facility] [place] [facility] [address] [id number] [place] [address] Apr, [facility] [place] [facility] [address] [id number] [place] [address] Apr, [facility] [place] [facility] [address] [id number] [place] [address] Apr, [facility] [place] [facility] [address] [id number] [place] [address] Apr, [facility] [place] [facility] [address] [id number] [place] [address] Mar, [facility] [place] [facility] [address] [id number] [place] [address] Mar, [facility] [place] [facility] [address] [id number] [place] [address] Mar, [facility] [place] [facility] [address] [id number] [place] [address] 13 Sep, 2010 [facility] [address] [id number] [place] [address] 10 Sep, 2010 [facility] [place] [facility] [address] [id number] [place] [address] Jul, [facility] [place] [facility] [address] [id number] [place] [address] Jun, [facility] [place] [facility] [address] [id number] [place] [address] Apr, [facility] [place] [facility] [address] [id number] [place] [address] Apr, [facility] [place] [facility] [address] [id number] [place] [address] Apr, [facility] [place] [facility] [address] [id number] [place] [address] Mar, [facility] [place] [facility] [address] [id number] [place] [address] 18 Mar, 2010 [facility] [place] [facility] [address] [id number] [place] [address] Mar, [facility] [place] [facility] [address] [facility] [id number] [place] [address] Feb, [facility] [place] [facility] [address] [id number] [place] [address] 14 Jan, 2010 [facility] [place] [facility] [address] [id number] [place] [address] Apr, [facility] [place] [facility] [address] [id number] [place] [address] Apr, [facility] [place] [facility] [address] [id number] [place] [address] Mar, [facility] [place] [facility] [address] [id number] [place] [address] Mar, [facility] [address] [facility] [id number] [place] [address] Feb, [facility] [address] [facility] [id number] [address] Jun, IMMUNIZATIONS No Known Immunizations SOCIAL HISTORY Never Assessed REASON FOR VISIT Requests return call PLAN OF CARE VITAL SIGNS MEDICATIONS Unknown [...]
--- OUTSIDE RECORDS SUMMARY | 2018-02-27 15:03 | XMS REPORT ---
Author Author PRISCILA PITT Organization [facility] [place] Address [address] [place] [address] Care Team Providers Care Information Resource Consultant Name Role Phone PRISCILA PITT Unavailable PROBLEMS Type Condition ICD9-CM Code HOW10-OK Code Onset Dates Condition Status SNOMED Code Problem Venous insufficiency I87.2 Active 27949694 Problem Hypertension I10 Active 16839485 Problem Back pain M54.9 Active 677320516 Problem Coronary artery disease I25.10 Active 23769721 Problem GERD (gastroesophageal reflux disease) K21.9 Active 177818361 Problem Hyperlipidemia E78.5 Active 19431923 ALLERGIES No Information SOCIAL HISTORY Never Assessed PLAN OF CARE VITAL SIGNS MEDICATIONS Medication Instructions Dosage Frequency Start Date End Date Duration Status Hydrocodone-Acetaminophen 10-325 MG Orally every 4 hrs 1 tablet 4h Jul, 28 days Active Tramadol HCl 50 mg [...]
--- OUTSIDE RECORDS SUMMARY | 2018-02-27 15:03 | XMS REPORT ---
Author Author PRISCILA PITT Organization [facility] Address [address] [place] [address] Care Team Providers Care Senior Search Marketing Analyst Name Role Phone PRISCILA PITT Unavailable PROBLEMS Type Condition ICD9-CM Code OIR99-OB Code Onset Dates Condition Status SNOMED Code Problem Coronary artery disease I25.10 Active 97926278 Problem Cigarette nicotine dependence without complication F17.210 Active 59065483 Problem Venous insufficiency I87.2 Active 03668821 Problem Hyperlipidemia E78.5 Active 32129914 Problem Back pain M54.9 Active 340058395 Problem Hypertension I10 Active 60878708 Problem GERD (gastroesophageal reflux disease) K21.9 Active 485538885 ALLERGIES No Information ENCOUNTERS Encounter Location Date Diagnosis [facility] [address] [address] September, [facility] [address] 58[address]- [address] Aug, Back pain M54.9 [facility] [id number] [place] [address] 61693- 1831 Aug, [facility] [id number] [place] [address] 87118- 9700 Aug, Back pain M54.9 [facility] [id number] [place] [address] 15406- 4093 Jul, Back pain M54.9 [facility] [address] [address]67- 6803 Jun, [facility] [id number] [place] [address] 14622- 8660 Jun, Back pain M54.9 [facility] [address] [place] [address] 4909 May, Back pain M54.9 [facility] [address] [address]- 1986 May, Back pain M54.9 [facility] [address] 24564- [address]48 May, Hypertension I10 ; Back pain M54.9 and Cigarette nicotine dependence without complication F17.210 [facility] [address] [address]- 4708 Apr, Back pain M54.9 [facility] [address] 16651- 2975 Apr, Hypokalemia E87.6 [place] [address] [address]- 2641 Apr, Hypokalemia E87.6 [facility] [address] 15445- 3796 Mar, Back pain M54.9 [facility] [address] 38634- 4505 Mar, [facility] [address] 92675- 9865 Mar, Back pain M54.9 ; Coronary artery disease I25.10 and Acute nasopharyngitis J00 [facility] [id number] [place] [address] 54820- 1178 Mar, Back pain M54.9 [facility] [address] 39923- 4665 Feb, Back pain M54.9 [facility] [address] 51892- 7582 Jan, Anemia due to blood loss D50.0 and Hypokalemia E87.6 [facility] [address] 47359- 2639 18 Jan, 2017 [facility] [id number] [place] [address] 09151- 4433 11 Jan, 2017 Hypokalemia E87.6 [facility] [id number] [place] [address] 88753 2546 08 Jan, 2017 Back pain M54.9 [facility] [id number] [place] [address] 85552 2546 08 Jan, 2017 [facility] [id number] [place] [address] 49070- 8307 14 Dec, 2016 Hypertension I10 and Back pain M54.9 [facility] [id number] [place] [address] 67912- 8444 29 Oct, 2016 Back pain M54.9 [facility] [id number] [place] [address] 07343- 0007 15 Oct, 2016 Back pain M54.9 [facility] [id number] [place] [address] 45805- 9858 07 Oct, 2016 Back pain M54.9 [facility] [id number] [place] [address] 98240- 1208 08 Sep, 2016 Back pain M54.9 [facility] [id number] [place] [address] 86870- 8078 12 Aug, 2016 Back pain M54.9 [facility] [id number] [place] [address] 63077- 9523 11 Aug, 2016 Epistaxis R04.0 [facility] [id number] [place] [address] 59418- 6036 15 Jul, 2016 [facility] [id number] [place] [address] 32018- 4678 14 Jul, 2016 Back pain M54.9 [facility] [id number] [place] [address] 61505- 2896 15 Jun, 2016 Back pain M54.9 [facility] [address] [address]- 7631 Jun, Localized edema R60.0 [facility] [id number] [place] [address] 14512- 0219 Jun, [facility] [id number] [place] [address] 05783- 6693 Jun, Anemia due to blood loss D50.0 ; Venous insufficiency I87.2 ; Hypertension I10 and Plantar fasciitis M72.2 [facility] [id number] [place] [address] 21410- 4105 May, Back pain M54.9 [facility] [id number] [place] [address] 76726- 8824 May, [facility] [id number] [place] [address] 96216- 0486 May, 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 ; Anemia due to blood loss D50.0 and Venous insufficiency I87.2 [facility] [id number] [place] [address] 40127- 5792 May, Back pain M54.9 [facility] [id number] [place] [address] 70264- 0481 May, Anemia due to blood loss D50.0 [facility] [id number] [place] [address] 14513- 5094 May, Localized edema R60.0 [facility] [id number] [place] [address] 96944- 7936 May, Blood loss anemia D50.0 ; Localized edema R60.0 and Coronary artery disease I25.10 [facility] [id number] [place] [address] 61744- 4173 Apr, Blood loss anemia D50.0 [facility] [id number] [place] [address] 87017- 6183 Apr, Epistaxis R04.0 ; Anemia, unspecified type D64.9 and Hyponatremia E87.1 [facility] [id number] [place] [address] 81164- 6875 Apr, [facility] [id number] [place] [address] 32155- 9260 Apr, Back pain M54.9 [facility] [address] 72618- 5704 Apr, Back pain M54.9 [facility] [id number] [place] [address] 60105- 0747 Mar, [facility] [id number] [place] [address] 69075- 9104 Mar, Back pain M54.9 [facility] [address] 65187- 3211 Feb, [facility] [id number] [place] [address] 87681- 9963 Feb, [facility] [address] 02326- 0374 Jan, [facility] [id number] [place] [address] 77788- 0509 Dec, [facility] [id number] [place] [address] 46299- 6269 Dec, [facility] [id number] [place] [address] 78455- 2685 Dec, Arthritis, 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 and Leg weakness, bilateral M62.81 [facility] [id number] [place] [address] 03454- 0024 Dec, [facility] [id number] [place] [address] 01273- 2785 Oct, Back pain M54.9 [facility] [address] [place] [address]- 0885 Oct, Back pain M54.9 [facility] [id number] [place] [address] 26216- 9262 September, Back pain M54.9 [facility] [id number] [place] [address] 66569- 1373 Aug, Back pain M54.9 [facility] [address] 01586- 5966 Aug, Back pain M54.9 [facility] [id number] [place] [address] 80969- 0178 Jul, [facility] [id number] [place] [address] 43203- 3193 Jul, Back pain M54.9 [facility] [id number] [place] [address] 92732- 5589 16 Jun, 2015 [facility] [id number] [place] [address] 67465- 7779 Jun, Back pain M54.9 [facility] [id number] [place] [address] 67540- 0184 15 May, 2015 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 ; Back pain M54.9 ; Hyperlipidemia E78.5 ; Hypertension I10 and GERD (gastroesophageal reflux disease) K21.9 [facility] [id number] [place] [address] 59879- 3073 May, Arthritis M19.90 [facility] [id number] [place] [address] 84812- 7856 Apr, [facility] [id number] [place] [address] 25075- 3325 Apr, [facility] [id number] [place] [address] 50861- 8440 Mar, [facility] [id number] [place] [address] [place] [address]- 8008 Mar, [facility] [id number] [address]- 7247 Feb, Arthritis M19.90 ; Encounter for immunization Z23 ; Contusion of right hip S70.01XA and Coronary artery disease I25.10 [facility] [address] [address]- 6278 Jan, [facility] [id number] [place] [address] 97496- 7282 Jan, [facility] [id number] [place] [address] 29436- 1830 Dec, Acute bronchitis 466.0 and Unspecified arthropathy, site unspecified 716.90 [facility] [id number] [address]- 1413 Dec, [facility] [id number] [place] [address] 59794- 8217 Dec, [facility] [address] [address]- 7891 Nov, [facility] [id number] [address]- 0124 Nov, [facility] [address] [address]- 2175 Nov, [facility] [address] [address]- 2426 Oct, [facility] [address] [address]- 0015 Oct, [facility] [id number] [address]- 9867 Oct, Unspecified arthropathy, site unspecified 716.90 [facility] [address] [address]- 6033 Oct, [facility] [id number] [address]- 7079 September, [facility] [address] [id number] [place] [address]- 4619 September, [facility] [place] [facility] [address] [id number] [place] [address]- 5939 Aug, [facility] [place] [facility] [address] [id number] [place] [address]- 0164 Aug, [facility] [place] [facility] [address] [id number] [place] [address]- 9542 Jul, [facility] [place] [facility] [address] [id number] [place] [address]- 6807 Jul, [facility] [place] [facility] [address] [id number] [place] [address]- 3999 Jul, [facility] [place] [facility] [address] [id number] [place] [address]- 3281 Jul, [facility] [place] [facility] [address] [id number] [place] [address]- 9570 Jul, [facility] [place] [facility] [address] [id number] [place] [address]- 6897 Jul, [facility] [place] [facility] [address] [id number] [place] [address]- 2603 Jun, [facility] [place] [facility] [address] [id number] [place] [address]- 8976 Jun, [facility] [place] [facility] [address] [id number] [place] [address]- 6872 Jun, [facility] [place] [facility] [address] [id number] [place] [address]- 8596 Jun, [facility] [place] [facility] [address] [id number] [place] [address]- 3216 May, [facility] [place] [facility] [address] [id number] [place] [address]- 9789 May, [facility] [place] [facility] [address] [id number] [place] [address]- 8815 May, [facility] [place] [facility] [address] [id number] [place] [address]- 5216 May, [facility] [place] [facility] [address] [facility] [id number] [place] [address]- 3606 May, [facility] [place] [facility] [address] [id number] [place] [address]- 7268 May, [facility] [place] [facility] [address] [id number] [place] [address]- 0561 May, [facility] [place] [facility] [address] [id number] [place] [address]- 3681 May, [facility] [place] [facility] [address] [id number] [place] [address]- 2877 May, [facility] [place] [facility] [address] [id number] [address]- 8002 May, [facility] [place] [facility] [address] [id number] [place] [address]- 6746 May, [facility] [place] [facility] [address] [id number] [place] [address]- 2161 Apr, [facility] [place] [facility] [address] [id number], [place] [address]- 3732 Apr, [facility] [place] [facility] [address] [id number], [place] [address]- 4406 Apr, [facility] [place] [facility] [address] [id number] [place] [address]- 2514 Apr, [facility] [place] [facility] [address] [id number], [place] [address]- 6186 Apr, [facility] [place] [facility] [address] [id number] [place] [address]- 8327 Mar, [facility] [place] [facility] [address] [id number] [place] [address]- 9358 Mar, [facility] [place] [facility] [address] [id number] [place] [address]- 1401 Feb, [facility] [place] [facility] [address] [id number] [place] [address]- 6082 Feb, [facility] [place] [facility] [address] [id number] [place] 8649 Feb, [facility] [place] [facility] [address] [id number] [place] [address]- 9295 Feb, [facility] [place] [facility] [address] [id number] [place] [address]- 6178 Jan, [facility] [place] [facility] [address] [id number] [place] [address]- 7311 Jan, [facility] [place] [facility] [address] [id number] [place] [address]- 7779 Dec, [facility] [place] [facility] [address] [id number] [place] [address]- 8122 Dec, [facility] [place] [facility] [address] [id number] [place] [address]- 5463 Nov, [facility] [place] [facility] [address] [id number] [place] [address]- 1108 Nov, [facility] [place] [facility] [address] [id number] [place] [address]- 5931 Oct, [facility] [place] [facility] [address] [id number] [place] [address]- 3522 Oct, [facility] [place] [facility] [address] [id number] [place] [address]- 9808 Oct, [facility] [place] [facility] [address] [id number] [place] [address]- 1423 Oct, [facility] [place] [facility] [address] [id number] [place] 6869 Aug, [facility] [place] [facility] [address] [id number] [place] [address]- 7873 Aug, [facility] [address] [id number] [place] [address]- 6793 Aug, [facility] [address] [id number] [place] [address]- 5200 Aug, [facility] [address] [id number] [place] [address]- 1115 May, [facility] [address] [id number] [place] [address]- 4628 May, [facility] [address] [id number] [place] [address]- 2278 May, [facility] [address] [id number] [place] [address]- 2780 May, [facility] [address] [id number] [place] [address]- 7952 May, [facility] [address] [id number] [place] [address]- 7776 May, [facility] [address] [id number] [place] [address]- 2270 May, [facility] [address] [id number] [place] [address]- 3429 Apr, [facility] [place] [facility] [address] [id number] [place] [address]- 9491 Apr, [facility] [place] [facility] [address] [id number] [place] [address]- 1557 Apr, [facility] [place] [facility] [address] [id number] [place] [address]- 5446 Apr, [facility] [place] [facility] [address] [id number] [place] [address]- 8831 Apr, [facility] [place] [facility] [address] [id number], [place] [address]- 4872 Apr, [facility] [place] [facility] [address] [id number] [place] [address]- 9442 Apr, [facility] [place] [facility] [address] [id number] [place] [address]- 6054 Apr, [facility] [place] [facility] [address] [id number] [place] [address]- 3253 Apr, [facility] [place] [facility] [address] [id number] [place] [address]- 0627 Apr, [facility] [place] [facility] [address] [id number] [place] [address]- 5211 Mar, [facility] [place] [facility] [address] [id number] [place] [address]- 9560 Mar, [facility] [place] [facility] [address] [id number] [place] [address]- 9581 Mar, [facility] [place] [facility] [address] [id number] [place] [address]- 2611 Mar, [facility] [place] [facility] [address] [id number] [place] [address]- 8087 Feb, [facility] [place] [facility] [address] [id number] [place] [address]- 7851 Feb, [facility] [place] [facility] [address] [id number], [place] [address]- 5293 Jan, [facility] [place] [facility] [address] [id number], [place] [address]- 3926 Jan, [facility] [place] [facility] [address] [id number] [place] [address]- 1299 Jan, [facility] [place] [facility] [address] [id number] [place] 9605 Dec, [facility] [place] [facility] [address] [id number] [place] 2603 Dec, [facility] [place] [facility] [address] [id number] [place] [address]- 1913 Nov, [facility] [address] [id number] [place] [address]- 7270 Oct, [facility] [place] [facility] [address] [id number] [place] [address]- 9407 Oct, [facility] [address] [id number] [place] [address]- 5327 Oct, [facility] [address] [id number] [place] [address]- 9674 September, [facility] [address] [id number] [place] [address]- 7141 September, [facility] [address] [id number] [place] [address]- 5121 Jun, [facility] [address] [id number] [place] [address]- 8133 Jun, [facility] [address] [id number] [place] [address] Jun, [facility] [address] [id number] [place] [address] Jun, [facility] [address] [id number] [place] [address] May, [facility] [address] [id number] [place] [address] May, [facility] [address] [id number] [place] [address] May, [facility] [place] [facility] [address] [id number] [place] [address] May, [facility] [place] [facility] [address] [id number] [place] [address] Apr, [facility] [place] [facility] [address] [id number] [place] [address] Apr, [facility] [place] [facility] [address] [id number] [place] [address] Apr, [facility] [place] [facility] [address] [id number], [place] [address] Apr, [facility] [place] [facility] [address] [facility] [id number] [place] [address] Apr, [facility] [place] [facility] [address] [id number], [place] [address] Apr, [facility] [place] [facility] [address] [id number] [place] [address] Mar, [facility] [place] [facility] [address] [facility] [id number], [place] [address] Mar, [facility] [place] [facility] [address] [facility] [id number], [place] [address] Mar, [facility] [place] [facility] [address] [id number], [place] [address] Mar, [facility] [place] [facility] [address] [facility] [id number], [place] [address] Feb, [facility] [place] [facility] [address] [facility] [id number], [place] [address] 31 Feb, 2012 [facility] [place] [facility] [address] [facility] [id number], [place] [address] Feb, [facility] [place] [facility] [address] [id number], [place] [address] 11 Feb, 2012 [facility] [place] [facility] [address] [id number], [place] [address] 10 Feb, 2012 [facility] [place] [facility] [address] [facility] [id number], [place] [address] 17 Jan, 2012 [facility] [place] [facility] [address] [facility] [id number], [place] [address] 254 13 Sep2011 [facility] [place] [facility] [address] [id number] [place] [address] 12 Jan, 2012 [facility] [place] [facility] [address] [id number] [place] [address] 12 Jan, 2012 [facility] [place] [facility] [address] [id number] [place] [address] 11 Jan, 2012 [facility] [place] [facility] [address] [id number] [place] [address] 14 Dec, 2011 [facility] [place] [facility] [address] [id number] [place] [address] 17 Nov, 2011 [facility] [place] [facility] [address] [id number] [place] [address] Nov, [facility] [place] [facility] [address] [id number] [place] [address] Nov, [facility] [address] [id number] [place] [address] Nov, [facility] [place] [facility] [address] [id number] [place] [address] Nov, [facility] [place] [facility] [address] [id number] [place] [address] 14 Oct, 2011 [facility] [place] [facility] [address] [id number] [place] [address] 16 Sep, 2011 [facility] [place] [facility] [address] [id number] [place] [address] September, [facility] [place] [facility] [address] [id number] [place] [address] 13 Aug, 2011 [facility] [place] [facility] [address] [id number] [place] [address] Aug, [facility] [place] [facility] [address] [id number] [place] [address] Aug, [facility] [place] [facility] [address] [id number] [place] [address] Aug, [facility] [place] [facility] [address] [id number] [place] [address]- [address] 16 Jul, 2011 [facility] [place] [facility] [address] [id number] [place] [address] Jul, [facility] [place] [facility] [address] [id number] [place] [address] Jun, [facility] [place] [facility] [address] [id number] [place] [address]- [address] Jun, [facility] [place] [facility] [address] [id number] [place] [address] Jun, [facility] [place] [facility] [address] [id number] [place] [address]- [address] Jun, [facility] [place] [facility] [address] [id number] [place] [address] May, [facility] [place] [facility] [address] [id number] [place] [address]- [address] May, [facility] [place] [facility] [address] [id number] [place] [address]- [address] May, [facility] [place] [facility] [address] [id number] [place] [address]- [address] May, [facility] [place] [facility] [address] [id number] [place] [address] May, [facility] [place] [facility] [address] [id number] [place] [address] May, [facility] [place] [facility] [address] [id number] [place] [address]- [address] Apr, [facility] [place] [facility] [address] [id number] [place] [address]- 47[address] Apr, [facility] [place] [facility] [address] [id number] [place] [address]32 Apr, [facility] [place] [facility] [address] [id number] [place] [address] Apr, [facility] [address] [id number] [place] [address] 20 Apr, 2011 [facility] [place] [facility] [address] [id number] [place] [address] 16 Apr, 2011 [facility] [address] [id number] [place] [address] 16 Apr, 2011 [facility] [place] [facility] [address] [id number] [place] [address] Apr, [facility] [address] [id number] [place] [address] Mar, [facility] [place] [facility] [address] [id number] [place] [address] Mar, [facility] [address] [id number] [place] [address] Mar, [facility] [place] [facility] [address] [id number] [place] [address] September, [facility] [address] [id number] [place] [address] September, [facility] [address] [id number] [place] [address] Jul, [facility] [address] [id number] [place] [address] 10 Jun, 2010 [facility] [place] [facility] [address] [id number] [place] [address] Apr, [facility] [place] [facility] [address] [id number] [place] [address] Apr, [facility] [place] [facility] [address] [id number] [place] [address] Apr, [facility] [place] [facility] [address] [id number] [place] Mar, [facility] [place] [facility] [id number] [address] Mar, [facility] [id number] [place] [address] Mar, [facility] [id number] [address] Feb, [facility] [id number] [address] Jan, [facility] [id number] [place] [address] Apr, [facility] [id number] [place] [address] Apr, [facility] [id number] [place] [address] Mar, [facility] [id number] [place] [address] Mar, [facility] [id number] [place] [address] Feb, [facility] [id number] [place] [address] Jun, IMMUNIZATIONS No Known Immunizations SOCIAL HISTORY Never Assessed REASON FOR VISIT Hydrocodone and tramadol- 02/18 PLAN OF CARE VITAL SIGNS MEDICATIONS Medication Instructions Dosage Frequency Start Date End Date Duration Status Hydrocodone-Acetaminophen 10-325 MG Orally every 4 hrs 1 tablet 4h Feb, 28 days Active Tramadol HCl 50 mg [...]
[2018-02-27 15:04] LABS: BASOPHILS % (AUTO) 0 % (0-10); EOSINOPHILS % (AUTO) 0 % (0-10); HEMATOCRIT 22 % (40-54); HEMOGLOBIN 8.1 G/DL (13.3-17.7); LYMPHOCYTES # (AUTO) 1.1 X 10^3 (1.0-4.0); LYMPHOCYTES % (AUTO) 13 % (12-44); MEAN CORPUSCULAR HEMOGLOBIN 35 PG (25-34); MEAN CORPUSCULAR HGB CONC 37 G/DL (32-36); MEAN CORPUSCULAR VOLUME 95 FL (80-99); MEAN PLATELET VOLUME 8.9 FL (7.4-10.4); MONOCYTES # (AUTO) 0.4 X 10^3 (0.0-1.0); MONOCYTES % (AUTO) 5 % (0-12); NEUTROPHILS # (AUTO) 6.9 X 10^3 (1.8-7.8); NEUTROPHILS % (AUTO) 82 % (42-75); PLATELET COUNT 270 10^3/uL (130-400); RED BLOOD COUNT 2.33 10^6/uL (4.35-5.85); RED CELL DISTRIBUTION WIDTH 13.3 % (10.0-14.5); WHITE BLOOD COUNT 8.4 10^3/uL (4.3-11.0)
--- OUTSIDE RECORDS SUMMARY | 2018-02-27 15:04 | XMS REPORT ---
Author Author PRISCILA PITT [facility] Address [address] [place] [address] Care Team Providers Care Accountant Manager Name Role Phone PRISCILA PITT Unavailable PROBLEMS Type Condition ICD9-CM Code QGU00-JP Code Onset Dates Condition Status SNOMED Code Problem Venous insufficiency I87.2 Active 64724749 Problem Back pain M54.9 Active 122057048 Problem GERD (gastroesophageal reflux disease) K21.9 Active 880231645 Problem Coronary artery disease I25.10 Active 48473236 Problem Hyperlipidemia E78.5 Active 00065984 Problem Hypertension I10 Active 79210333 ALLERGIES Substance Reaction Event Type Date Status Celebrex stomach upset Drug Allergy Apr, Active Zocor 20 Mg Tablet Unknown Non Drug Allergy Apr, Active Neurontin 300 Mg Capsule Unknown Non Drug Allergy Apr, Active SOCIAL HISTORY No smoking Hx information available PLAN OF CARE Activity Details Follow Up 3 Months Reason: VITAL SIGNS Height 68 in 2016-05-11 Weight 132 lbs 2016-05-11 Temperature 98.0 degrees Fahrenheit 2016-05-11 Heart Rate 88 bpm 2016-05-11 Respiratory Rate 20 2016-05-11 BMI 20.07 kg/m2 2016-05-11 Blood pressure systolic 164 mmHg 2016-05-11 Blood pressure diastolic 88 mmHg 2016-05-11 MEDICATIONS Medication Instructions Dosage Frequency Start Date End Date Duration Status Lansoprazole 30 MG Orally 2 times a day 1 capsule 12h Active Iron 325 (65 Fe) MG Orally Once a day 1 tablet 24h Active Flonase 50 MCG/DOSE Nasally Once a day 2 spray in each nostril 24h Active Plavix 75 TAKE ONE TABLET BY MOUTH DAILY 30 Active Tramadol HCl 50 MG Orally every 6 hrs 1 tablet as needed 6h Active B-12 1000 MCG Sublingual Once a day 1 tablet under the tongue and allow to dissolve 24h Active Pravastatin Sodium 40 TAKE ONE TABLET BY MOUTH AT BEDTIME, AVOID GRAPEFRUIT OR GRAPEFRUIT JUICE 90 Active Reglan 10 TAKE ONE TABLET BY MOUTH TWICE A DAY 45 Active Aspir-Low 81 MG Orally Once a day 1 tablet 24h Active Hydrocodone-Acetaminophen 10-325 MG 1 tablet as needed 4h Apr, Active Lisinopril 10 TAKE ONE TABLET BY MOUTH DAILY 90 Active Prevacid 30 TAKE ONE CAPSULE BY MOUTH TWICE A DAY 30 Active Cyclobenzaprine HCl 10 mg Orally hs 1 tablet 05 Apr, 2016 Active RESULTS Name Result Date Reference Range ANEMIA PANEL 2016-05-11 Iron Bind.Cap.(TIBC) 266 250-450 UIBC 239 111-343 Iron, Serum 27 38-169 Iron Saturation 10 15-55 Ferritin, Serum 76 30-400 Vitamin B12 324 211-946 Folate (Folic Acid), Serum 12.5 >3.0 WBC 8.2 3.4-10.8 RBC 2.45 4.14-5.80 Hemoglobin 8.9 12.6-17.7 Hematocrit 25.2 37.5-51.0 MCV 103 79-97 MCH 36.3 26.6-33.0 MCHC 35.3 31.5-35.7 RDW 13.8 12.3-15.4 Platelets 313 150-379 Neutrophils 68 Lymphs 21 Monocytes 9 Eos 1 Basos 1 Neutrophils (Absolute) 5.6 1.4-7.0 Lymphs (Absolute) 1.7 0.7-3.1 Monocytes(Absolute) 0.8 0.1-0.9 Eos (Absolute) 0.1 0.0-0.4 Baso (Absolute) 0.0 0.0-0.2 Immature Granulocytes 0 Immature Grans (Abs) 0.0 0.0-0.1 Reticulocyte Count 4.0 0.6-2.6 BMP 2016-05-11 Glucose, Serum 81 65-99 BUN 5 8-27 Creatinine, Serum 0.51 0.76-1.27 eGFR If NonAfricn Am 113 >59 eGFR If Africn Am 130 >59 BUN/Creatinine Ratio 10 10-22 Sodium, Serum 130 134-144 Potassium, Serum 4.1 3.5-5.2 Chloride, Serum 92 96-106 Carbon Dioxide, Total 21 18-29 Calcium, Serum 8.7 8.6-10.2 PROCEDURES Procedure Date Ordered Related Diagnosis [facility] VISIT ESTABLISHED PATIENT May 11, 2016 VENIPUNCT, ROUTINE* May 11, 2016 Office Visit, Est Pt., Level 4 May 11, 2016 IMMUNIZATIONS No Known Immunizations
--- OUTSIDE RECORDS SUMMARY | 2018-02-27 15:04 | XMS REPORT ---
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 Active 02775559 Problem Peripheral vascular disease I73.9 Active 415974189 Problem Hypertension I10 Active 96106114 Problem GERD (gastroesophageal reflux disease) K21.9 Active 209745962 Problem Cigarette nicotine dependence without complication F17.210 Active 56931836 Problem Venous insufficiency I87.2 Active 61279671 ALLERGIES No Information ENCOUNTERS Encounter Location Date Diagnosis [place] [id number] [place] [address] 06115- 8347 12 Nov, 2017 [place] [id number] [place] [address] 12935- 5003 Oct, Back pain M54.9 [facility] [place] [facility] [id number] [place] [address] 81605- 1960 13 Oct, 2017 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 [facility] [facility] [id number] [place] [address] 16521- 9226 September, shelter current use of opiate analgesic Z79.891 ; Medication monitoring encounter Z51.81 ; Back pain M54.9 ; Weakness R53.1 ; Cigarette nicotine dependence without complication F17.210 ; Coronary artery disease I25.10 and Peripheral vascular disease I73.9 [facility] [facility] [id number] [place] [address] 75666- 9580 September, Back pain M54.9 [facility] [place] [facility] [id number] [place] [address] 67187- 3016 Aug, Back pain M54.9 [facility] [place] [facility] [id number] [place] [address] 60968 2546 Aug, [facility] [place] [facility] [id number] [place] [address] 65331- 7736 Aug, Back pain M54.9 [facility] [facility] [id number] [place] [address] 04929- 8270 Jul, Back pain M54.9 [facility] [place] [facility] [id number] [place] [address] 05682- 7166 Jun, [facility] [place] [facility] [id number] [place] [address] 88896- 4048 Jun, Back pain M54.9 [facility] [place] [facility] [id number] [place] [address] 16420- 2763 May, Back pain M54.9 [facility] [facility] [id number] [place] [address] 33874- 3026 May, Back pain M54.9 [facility] [facility] [id number] [place] [address] 07970- 8745 May, Hypertension I10 ; Back pain M54.9 and Cigarette nicotine dependence without complication F17.210 [facility] [facility] [id number] [place] [address] 91353- 6172 Apr, Back pain M54.9 [facility] [facility] [id number] [place] [address] 70594- 2356 Apr, Hypokalemia E87.6 [facility] [facility] [id number] [place] [address] 01675- 2546 14 Apr, 2017 Hypokalemia E87.6 [facility] [facility] [id number] [place] [address] 27881- 6098 Mar, Back pain M54.9 [facility] [facility] [id number] [place] [address] 48357- 6609 Mar, [facility] [facility] [id number] [place] [address] 41822- 2489 Mar, Back pain M54.9 ; Coronary artery disease I25.10 and Acute nasopharyngitis J00 [facility] [id number] [place] [address] 33950- 0035 Mar, Back pain M54.9 [facility] [id number] [place] [address] 37590- 2592 Feb, Back pain M54.9 [facility] [facility] [id number] [place] [address] 06481- 3178 26 Jan, 2017 Anemia due to blood loss D50.0 and Hypokalemia E87.6 [facility] [facility] [id number] [place] [address] 39888- 8505 18 Jan, 2017 [facility] [facility] [id number] [place] [address] 43857- 7563 11 Jan, 2017 Hypokalemia E87.6 [facility] [facility] [id number] [place] [address] 40216- 5692 08 Jan, 2017 Back pain M54.9 [facility] [facility] [id number] [place] [address] 05322- 9277 08 Jan, 2017 [facility] [facility] [id number] [place] [address] 97056- 2486 14 Dec, 2016 Hypertension I10 and Back pain M54.9 [facility] [facility] [id number] [place] [address] 67979- 2433 Oct, Back pain M54.9 [facility] [facility] [id number] [place] [address] 61033- 9337 Oct, Back pain M54.9 [facility] [address] [place] [address] 3073 07 Oct, 2016 Back pain M54.9 [facility] [id number] [place] [address] 94748- 3543 08 Sep, 2016 Back pain M54.9 [facility] [facility] [id number] [place] [address] 09916- 5277 Aug, Back pain M54.9 [facility] [id number] [place] [address] 94186- 0630 Aug, Epistaxis R04.0 [facility] [id number] [place] [address] 75485- 7172 15 Jul, 2016 [facility] [id number] [place] [address] 25310- 0162 14 Jul, 2016 Back pain M54.9 [facility] [id number] [place] [address] 51756- 0515 15 Jun, 2016 Back pain M54.9 [facility] [id number] [place] [address] 52754- 8127 Jun, Localized edema R60.0 [facility] [id number] [place] [address] 46552- 4878 Jun, [facility] [id number] [place] [address] 75452- 4823 06 Jun, 2016 Anemia due to blood loss D50.0 ; Venous insufficiency I87.2 ; Hypertension I10 and Plantar fasciitis M72.2 [facility] [address] [address]- 6497 May, Back pain M54.9 [facility] [id number] [place] [address] 46331- 0199 May, [facility] [address] [place] [address] 63768- 0275 May, shelter use of drug Z79.899 ; Anemia due to blood loss D50.0 and Venous insufficiency I87.2 [facility] [id number] [place] [address] 00937- 9144 May, Back pain M54.9 [facility] [id number] [place] [address] 82384- 0594 May, Anemia due to blood loss D50.0 [facility] [id number] [place] [address] 53149- 2391 May, Localized edema R60.0 [facility] [id number] [place] [address] 60594- 7677 May, Blood loss anemia D50.0 ; Localized edema R60.0 and Coronary artery disease I25.10 [facility] [id number] [place] [address] 09086- 9609 Apr, Blood loss anemia D50.0 [facility] [id number] [place] [address] 33529- 1208 Apr, Epistaxis R04.0 ; Anemia, unspecified type D64.9 and Hyponatremia E87.1 [facility] [id number] [place] [address] 48514- 6142 Apr, [facility] [id number] [place] [address] 92221- 4651 Apr, Back pain M54.9 [facility] [id number] [place] [address] 12330- 5620 Apr, Back pain M54.9 [facility] [id number] [place] [address] 71592- 9890 Mar, [facility] [id number] [place] [address] 00997- 3729 Mar, Back pain M54.9 [facility] [facility] [id number] [place] [address] 39049- 4277 Feb, [facility] [facility] [address] [place] [address]- 7476 Feb, [facility] [facility] [address] [facility] [id number] [place] [address] 93506- 4275 Jan, [facility] [facility] [address] [facility] [id number] [place] [address] 91801- 3208 Dec, [facility] [facility] [address] [facility] [id number] [place] [address] 32651- 0400 Dec, [facility] [facility] [address] [facility] [id number] [place] [address] 40682- 8537 Dec, Arthritis, 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 and Leg weakness, bilateral M62.81 [facility] [address] [id number] [place] [address] 37305- 1717 Dec, [facility] [facility] [id number] [place] [address] 34938- 0128 Oct, Back pain M54.9 [facility] [id number] [place] [address] 05542- 3292 Oct, Back pain M54.9 [facility] [id number] [place] [address] 02116- 9976 September, Back pain M54.9 [facility] [id number] [place] [address] 78199- 1668 Aug, Back pain M54.9 [facility] [facility] [address] [place] [address] 81793- 0544 Aug, Back pain M54.9 [facility] [address] [facility] [id number] [address]- 3326 Jul, [facility] [facility] [address] [facility] [id number] [place] [address] 15413- 7936 Jul, Back pain M54.9 [facility] [id number] [address]- 1226 Jun, [facility] [facility] [id number] [place] [address] 46673- 2322 03 Jun, 2015 Back pain M54.9 [place] [address] 43508- 6526 15 May, 2015 shelter use of drug Z79.899 ; Back pain M54.9 ; Hyperlipidemia E78.5 ; Hypertension I10 and GERD (gastroesophageal reflux disease) K21.9 [place] [address] 34272- 6495 May, Arthritis M19.90 [place] [address] 05247- 7448 Apr, [place] [address] 52123- 1519 Apr, [place] [address] 40232- 4540 Mar, [place] [address] 87852- 1843 Mar, [place] [address] 14750- 7617 Feb, Arthritis M19.90 ; Encounter for immunization Z23 ; Contusion of right hip S70.01XA and Coronary artery disease I25.10 [place] [id number] [place] [address] 44320- 1631 Jan, [place] [id number] [place] [address] 61660- 8540 Jan, [facility] [facility] [id number] [place] [address] 77897- 8279 Dec, Acute bronchitis 466.0 and Unspecified arthropathy, site unspecified 716.90 [facility] [facility] [id number] [place] [address] 36516- 3683 Dec, [place] [address] 02656- 5673 Dec, [facility] [address] [id number] [place] [address]- 5177 Nov, [facility] [address] [id number] [place] [address]- 6664 Nov, [facility] [address] [id number] [place] [address]- 8910 Nov, [facility] [place] [facility] [address] [id number] [place] [address]- 7690 Oct, [facility] [address] [id number] [place] [address]- 5303 Oct, [facility] [address] [id number] [place] [address]- 5894 Oct, Unspecified arthropathy, site unspecified 716.90 [facility] [address] [facility] [id number] [place] [address]- 3817 Oct, [facility] [address] [facility] [id number] [place] [address]- 3751 September, [facility] [address] [facility] [id number] [place] [address]- 8986 September, [facility] [address] [facility] [id number] [place] [address]- 6784 Aug, [facility] [address] [facility] [id number] [place] [address]- 4963 Aug, [facility] [place] [facility] [address] [id number] [place] [address]- 4496 Jul, [facility] [place] [facility] [address] [id number] [place] [address]- 6802 Jul, [facility] [place] [facility] [address] [facility] [id number] [place] [address]- 4805 Jul, [facility] [place] [facility] [address] [facility] [id number] [place] [address]- 4906 Jul, [facility] [place] [facility] [address] [id number] [place] [address]- 7541 Jul, [facility] [place] [facility] [address] [id number] [place] [address]- 8295 Jul, [facility] [place] [facility] [address] [id number] [place] [address]- 4126 Jun, [facility] [place] [facility] [address] [id number] [place] [address]- 4487 Jun, [facility] [place] [facility] [address] [id number] [place] [address]- 1007 Jun, [facility] [place] [facility] [address] [id number] [place] [address]- 9028 Jun, [facility] [place] [facility] [address] [id number] [place] [address]- 1700 May, [facility] [place] [facility] [address] [id number] [place] [address]- 9200 May, [facility] [place] [facility] [address] [id number] [place] [address]- 1467 May, [facility] [place] [facility] [address] [id number] [place] [address]- 9269 May, [facility] [place] [facility] [address] [id number] [place] [address]- 1016 May, [facility] [place] [facility] [address] [id number], [place] [address]- 4662 May, [facility] [place] [facility] [address] [id number] [place] [address]- 3812 May, [facility] [place] [facility] [address] [id number] [place] [address]- 4738 May, [facility] [place] [facility] [address] [id number] [place] [address]- 4437 May, [facility] [place] [facility] [address] [id number] [place] [address]- 9456 May, [facility] [place] [facility] [address] [id number] [place] [address]- 1947 May, [facility] [place] [facility] [address] [id number] [place] [address]- 6986 Apr, [facility] [place] [facility] [address] [id number] [place] [address]- 9968 Apr, [facility] [place] [facility] [address] [id number] [place] [address]- 8506 Apr, [facility] [place] [facility] [address] [id number] [place] [address]- 2127 Apr, [facility] [place] [facility] [address] [id number] [place] [address]- 4881 Apr, [facility] [place] [facility] [address] [id number] [place] [address]- 5405 Mar, [facility] [place] [facility] [address] [id number] [place] [address]- 5875 Mar, [facility] [place] [facility] [address] [id number] [place] [address]- 4661 Feb, [facility] [place] [facility] [address] [id number] [place] [address]- 1843 Feb, [facility] [place] [facility] [address] [id number] [place] [address]- 2051 Feb, [facility] [place] [facility] [address] [id number], [place] [address]- 9321 Feb, [facility] [place] [facility] [address] [id number] [place] [address]- 2154 Jan, [facility] [place] [facility] [address] [id number] [place] [address]- 7888 Jan, [facility] [place] [facility] [address] [id number] [place] [address]- 9929 Dec, [facility] [place] [facility] [address] [id number] [place] [address]- 7404 Dec, [facility] [address] [id number] [place] [address]- 9812 Nov, [facility] [place] [facility] [address] [id number] [place] [address]- 9497 Nov, [facility] [place] [facility] [address] [id number] [place] [address]- 0853 Oct, [facility] [place] [facility] [address] [id number] [place] [address]- 7295 Oct, [facility] [place] [facility] [address] [id number] [place] [address]- 4524 Oct, [facility] [place] [facility] [address] [id number] [place] [address]- 9847 Oct, [facility] [place] [facility] [address] [id number] [place] [address]- 9487 Aug, [facility] [place] [facility] [address] [id number] [place] [address]- 4546 Aug, [facility] [place] [facility] [address] [id number] [place] [address]- 3529 Aug, [facility] [place] [facility] [address] [id number] [place] [address]- 1479 Aug, [facility] [place] [facility] [address] [id number] [place] [address]- 9060 May, [facility] [place] [facility] [address] [id number] [place] [address]- 1139 May, [facility] [place] [facility] [address] [id number] [place] [address]- 4963 May, [facility] [place] [facility] [address] [id number] [place] [address]- 4148 May, [facility] [place] [facility] [address] [id number] [place] [address]- 9398 May, [facility] [address] [id number] [place] [address]- 8549 May, [facility] [place] [facility] [address] [id number] [place] [address]- 5586 May, [facility] [place] [facility] [address] [id number] [place] [address]- 1070 Apr, [facility] [place] [facility] [address] [id number] [place] [address]- 5896 Apr, [facility] [address] [id number] [place] [address]- 3868 Apr, [facility] [place] [facility] [address] [id number] [place] [address]- 7876 Apr, [facility] [address] [id number] [place] [address]- 7468 Apr, [facility] [address] [id number] [place] [address]- 2805 Apr, [facility] [place] [facility] [address] [id number] [place] [address]- 7987 Apr, [facility] [place] [facility] [address] [id number] [place] [address]- 1448 Apr, [facility] [place] [facility] [address] [id number] [place] [address]- 2484 Apr, [facility] [place] [facility] [address] [id number], [place] [address]- 7689 Apr, [facility] [place] [facility] [address] [id number] [place] [address]- 3740 Mar, [facility] [place] [facility] [address] [id number] [place] [address]- 5196 Mar, [facility] [place] [facility] [address] [facility] [id number], [place] [address] Mar, [facility] [place] [facility] [address] [id number], [place] [address] Mar, [facility] [address] [id number] [place] [address] Feb, [facility] [place] [facility] [address] [id number] [place] [address] Feb, [facility] [address] [id number] [place] [address] Jan, [facility] [place] [facility] [address] [id number] [place] [address] Jan, [facility] [address] [id number] [place] [address] Jan, [facility] [address] [id number] [place] [address] Dec, [facility] [address] [facility] [id number] [place] [address] Dec, [facility] [place] [facility] [address] [facility] [id number] [place] [address] Nov, [facility] [address] [facility] [id number] [place] [address] Oct, [facility] [place] [facility] [address] [facility] [id number] [place] [address] Oct, [facility] [place] [facility] [address] [id number], [place] [address] Oct, [facility] [place] [facility] [address] [facility] [id number], [place] [address] September, [facility] [place] [facility] [address] [id number] [place] [address] September, [facility] [place] [facility] [address] [facility] [id number], [place] [address] Jun, [facility] [place] [facility] [address] [facility] [id number], [place] [address] Jun, [facility] [place] [facility] [address] [id number] [place] [address] Jun, [facility] [place] [facility] [address] [id number] [place] [address] Jun, [facility] [place] [facility] [address] [id number] [place] [address] May, [facility] [place] [facility] [address] [id number] [place] [address] 14[address] May, [facility] [place] [facility] [address] [id number] [place] [address]- 1375 May, [facility] [place] [facility] [address] [id number] [place] [address] May, [facility] [address] [id number] [place] [address] Apr, [facility] [address] [id number] [place] [address] Apr, [facility] [address] [id number] [place] [address] [address] Apr, [facility] [place] [facility] [address] [id number] [place] [address] Apr, [facility] [place] [facility] [address] [id number] [place] [address]243 Apr, [facility] [place] [facility] [address] [id number] [place] [address] Apr, [facility] [place] [facility] [address] [id number] [place] [address] Mar, [facility] [place] [facility] [address] [id number] [place] [address]31 Mar, [facility] [place] [facility] [address] [id number] [place] [address]243 Mar, [facility] [place] [facility] [address] [id number], [place] [address] Mar, [facility] [place] [facility] [address] [id number] [place] [address] Feb, [facility] [place] [facility] [address] [id number] [place] [address]- [address] 31 Feb, 2012 [facility] [place] [facility] [address] [id number] [place] [address] Feb, [facility] [place] [facility] [address] [id number] [place] [address] Feb, [facility] [place] [facility] [address] [id number] [place] [address]- [address] 10 Feb, 2012 [facility] [place] [facility] [address] [id number] [place] [address]- [address] 17 Jan, 2012 [facility] [place] [facility] [address] [id number] [place] [address]- [address] 13 Jan, 2012 [facility] [place] [facility] [address] [id number] [place] [address]- [address]169 12 Jan, 2012 [facility] [place] [facility] [address] [id number] [place] [address]- [address] 12 Jan, 2012 [facility] [place] [facility] [address] [id number] [place] [address]- [address] 11 Jan, 2012 [facility] [place] [facility] [address] [id number] [place] [address]- [address] 14 Dec, 2011 [facility] [place] [facility] [address] [id number], [place] [address]- [address] 17 Nov, 2011 [facility] [place] [facility] [address] [id number] [place] [address]- [address] 13 Nov, 2011 [facility] [place] [facility] [address] [id number] [place] [address]- [address]90 12 Nov, 2011 [facility] [place] [facility] [address] [id number] [place] [address]- [address]168 Nov, [facility] [place] [facility] [address] [id number] [place] [address]- [address]70 09 Nov, 2011 [facility] [address] [id number] [place] [address] 14 Oct, 2011 [facility] [address] [id number] [place] [address]- [address] 16 Sep, 2011 [facility] [address] [id number] [place] [address] September, [facility] [address] [id number] [place] [address] 13 Aug, 2011 [facility] [address] [id number] [place] [address] Aug, [facility] [address] [id number] [place] [address] Aug, [facility] [address] [id number] [place] [address] Aug, [facility] [address] [id number] [place] [address] 16 Jul, 2011 [facility] [address] [id number] [place] [address] Jul, [facility] [address] [id number] [place] [address] Jun, [facility] [address] [id number] [place] [address] 07 Jun, 2011 [facility] [address] [id number] [place] [address] Jun, [facility] [place] [facility] [address] [id number] [place] [address] Jun, [facility] [address] [id number] [place] [address] May, [facility] [place] [facility] [address] [id number] [place] [address] May, [facility] [place] [facility] [address] [id number] [place] [address] May, [facility] [place] [facility] [address] [id number] [place] [address]- [address] May, [facility] [place] [facility] [address] [id number] [place] [address] May, [facility] [place] [facility] [address] [id number] [place] [address] May, [facility] [place] [facility] [address] [id number] [place] [address] Apr, [facility] [place] [facility] [address] [id number] [place] [address] Apr, [facility] [place] [facility] [address] [id number] [place] [address] Apr, [facility] [place] [facility] [address] [id number] [place] [address]- [address] Apr, [facility] [place] [facility] [address] [id number] [place] [address] Apr, [facility] [place] [facility] [address] [id number] [place] [address] Apr, [facility] [place] [facility] [address] [id number] [place] [address] Apr, [facility] [place] [facility] [address] [id number] [place] [address] Apr, [facility] [place] [facility] [address] [id number] [place] [address] Mar, [facility] [place] [facility] [address] [id number] [place] [address] Mar, [facility] [place] [facility] [address] [id number] [place] [address] Mar, [facility] [place] [facility] [address] [id number] [place] [address] 13 Sep, 2010 [facility] [address] [id number] [place] [address] 10 Sep, 2010 [facility] [place] [facility] [address] [id number] [place] [address] Jul, [facility] [place] [facility] [address] [id number] [place] [address] Jun, [facility] [place] [facility] [address] [id number] [place] [address] Apr, [facility] [place] [facility] [address] [id number] [place] [address] Apr, [facility] [place] [facility] [address] [id number] [place] [address] Apr, [facility] [place] [facility] [address] [id number] [place] [address] Mar, [facility] [place] [facility] [address] [id number] [place] [address] 18 Mar, 2010 [facility] [place] [facility] [address] [id number] [place] [address] Mar, [facility] [place] [facility] [address] [facility] [id number] [place] [address] Feb, [facility] [place] [facility] [address] [id number] [place] [address] 14 Jan, 2010 [facility] [place] [facility] [address] [id number] [place] [address]- [address] Apr, [facility] [place] [facility] [address] [id number] [place] [address] Apr, [facility] [place] [facility] [address] [id number] [place] [address] Mar, [facility] [place] [facility] [address] [id number] [place] [address] Mar, [facility] [place] [facility] [address] [facility] [id number] [place] [address] Feb, [facility] [place] [facility] [address] [facility] [id number], [place] [address] Jun, IMMUNIZATIONS No Known Immunizations SOCIAL HISTORY Never Assessed REASON FOR VISIT Tramadol and Hydrocodone 07/08 PLAN OF CARE VITAL SIGNS MEDICATIONS Medication Instructions Dosage Frequency Start Date End Date Duration Status Hydrocodone-Acetaminophen 10-325 MG Orally every 4 hrs 1 tablet 4h Jun, 28 days Active Tramadol HCl 50 mg [...]
--- OUTSIDE RECORDS SUMMARY | 2018-02-27 15:05 | XMS REPORT ---
Author Author CAYLA MILTON Organization [facility] Address [address] [place] [address] Care Team Providers Care Bath Attendant Name Role Phone CAYLA MILTON Unavailable PROBLEMS Type Condition ICD9-CM Code [id number] Code Onset Dates Condition Status SNOMED Code Problem Coronary artery disease I25.10 Active 96144232 Problem Cigarette nicotine dependence without complication F17.210 Active 51811758 Problem Venous insufficiency I87.2 Active 26411257 Problem Hyperlipidemia E78.5 Active 85250706 Problem Back pain M54.9 Active 943166764 Problem Hypertension I10 Active 74850006 Problem GERD (gastroesophageal reflux disease) K21.9 Active 893557332 ALLERGIES No Information ENCOUNTERS Encounter Location Date Diagnosis [facility] [id number] [place] [address] 23234- 7321 September, [facility] [id number] [place] [address] 41637- 4465 Aug, Back pain M54.9 [facility] [id number] [place] [address] 67897- 1038 Aug, [facility] [id number] [place] [address] 08376- 5880 Aug, Back pain M54.9 [facility] [id number] [place] [address] 13575- 9424 Jul, Back pain M54.9 [facility] [id number] [place] [address] 95790- 9787 Jun, [facility] [id number] [place] [address] 69417- 3147 Jun, Back pain M54.9 [facility] [id number] [place] [address] 42623- 2897 May, Back pain M54.9 [facility] [address] 53126- 2876 May, Back pain M54.9 [facility] [id number] [place] [address] 60466- 2721 May, Hypertension I10 ; Back pain M54.9 and Cigarette nicotine dependence without complication F17.210 [facility] [id number] [place] [address] 99589- 1211 Apr, Back pain M54.9 [facility] [address] 22405- 9905 Apr, Hypokalemia E87.6 [place] [address] 44815- 1408 Apr, Hypokalemia E87.6 [facility] [id number] [place] [address] 94669- 7172 Mar, Back pain M54.9 [facility] [address] 77293- 5169 Mar, [facility] [id number] [place] [address] 41206- 7488 Mar, Back pain M54.9 ; Coronary artery disease I25.10 and Acute nasopharyngitis J00 [facility] [id number] [place] [address] 09038- 0433 Mar, Back pain M54.9 [facility] [id number] [place] [address] 71641- 3402 Feb, Back pain M54.9 [facility] [id number] [place] [address] 00262- 1434 Jan, Anemia due to blood loss D50.0 and Hypokalemia E87.6 [facility] [address] [place] [address] 5922 18 Jan, 2017 [facility] [id number] [place] [address] 58541- 2435 11 Jan, 2017 Hypokalemia E87.6 [facility] [id number] [place] [address] 29569 2546 08 Jan, 2017 Back pain M54.9 [facility] [address] 82263- 8946 08 Jan, 2017 [facility] [id number] [place] [address] 39441- 5537 14 Dec, 2016 Hypertension I10 and Back pain M54.9 [facility] [id number] [place] [address] 18387- 8124 29 Oct, 2016 Back pain M54.9 [facility] [id number] [place] [address] 33051- 3642 15 Oct, 2016 Back pain M54.9 [facility] [id number] [place] [address] 82272- 9093 07 Oct, 2016 Back pain M54.9 [facility] [id number] [place] [address] 80027- 1179 08 Sep, 2016 Back pain M54.9 [facility] [id number] [place] [address] 52149- 5686 12 Aug, 2016 Back pain M54.9 [facility] [id number] [place] [address] 73691 2547 11 Aug, 2016 Epistaxis R04.0 [facility] [id number] [place] [address] 74405- 9656 15 Jul, 2016 [facility] [id number] [place] [address] 95773- 7871 14 Jul, 2016 Back pain M54.9 [facility] [id number] [place] [address] 57430- 3717 15 Jun, 2016 Back pain M54.9 [facility] [id number] [place] [address] 75620- 5589 Jun, Localized edema R60.0 [facility] [id number] [place] [address] 39599- 8778 Jun, [facility] [id number] [place] [address] 00507- 5824 Jun, Anemia due to blood loss D50.0 ; Venous insufficiency I87.2 ; Hypertension I10 and Plantar fasciitis M72.2 [facility] [id number] [place] [address] 38969- 3548 May, Back pain M54.9 [facility] [id number] [place] [address] 39442- 8617 May, [place] [address] 82287- 3036 May, halfway use of drug Z79.899 ; Anemia due to blood loss D50.0 and Venous insufficiency I87.2 [place] [id number] [place] [address] 64124- 0655 May, Back pain M54.9 [facility] [id number] [place] [address] 65060- 9444 May, Anemia due to blood loss D50.0 [facility] [id number] [place] [address] 20473- 7509 May, Localized edema R60.0 [facility] [id number] [place] [address] 03766- 8372 May, Blood loss anemia D50.0 ; Localized edema R60.0 and Coronary artery disease I25.10 [facility] [id number] [place] [address] 86019- 1830 Apr, Blood loss anemia D50.0 [facility] [id number] [place] [address] 02218- 3061 Apr, Epistaxis R04.0 ; Anemia, unspecified type D64.9 and Hyponatremia E87.1 [facility] [id number] [place] [address] 92199- 9658 Apr, [facility] [id number] [place] [address] 54152- 8708 Apr, Back pain M54.9 [facility] [address] 48077- 6746 Apr, Back pain M54.9 [facility] [address] 55550- 6624 Mar, [facility] [id number] [place] [address] 71388- 7510 Mar, Back pain M54.9 [facility] [address] 28449- 4905 Feb, [facility] [id number] [place] [address] 57924- 1330 Feb, [facility] [id number] [place] [address] 00712- 0909 Jan, [facility] [id number] [place] [address] 21775- 1069 Dec, [facility] [id number] [place] [address] 57407- 8062 Dec, [facility] [id number] [place] [address] 30920- 4612 Dec, Arthritis, 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 and Leg weakness, bilateral M62.81 [facility] [id number] [place] [address] 79565- 3918 Dec, [facility] [id number] [place] [address] 51735- 0442 Oct, Back pain M54.9 [facility] [id number] [place] [address] 90662- 9555 Oct, Back pain M54.9 [facility] [id number] [place] [address] 88471- 8293 September, Back pain M54.9 [facility] [id number] [place] [address] 13238- 1475 Aug, Back pain M54.9 [facility] [id number] [place] [address] 54880- 1781 Aug, Back pain M54.9 [facility] [id number] [place] [address] 56478- 1808 Jul, [facility] [id number] [place] [address] 91738- 6588 Jul, Back pain M54.9 [facility] [id number] [place] [address] 28000- 3230 Jun, [facility] [id number] [place] [address] 68896- 7380 Jun, Back pain M54.9 [facility] [id number] [place] [address] 87712- 2366 May, [employer]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 ; Back pain M54.9 ; Hyperlipidemia E78.5 ; Hypertension I10 and GERD (gastroesophageal reflux disease) K21.9 [facility] [id number] [place] [address] 39939- 5560 May, Arthritis M19.90 [facility] [id number] [place] [address] 94418- 8859 Apr, [facility] [id number] [place] [address] 10233- 9892 Apr, [facility] [id number] [address]- 4508 Mar, [facility] [address] [address]- 0125 Mar, [facility] [id number] [address]- 4282 Feb, Encounter for immunization Z23 ; Arthritis M19.90 ; Contusion of right hip S70.01XA and Coronary artery disease I25.10 [facility] [address] [address]- 4360 Jan, [facility] [id number] [place] [address] 82161- 0605 Jan, [facility] [id number] [place] [address] 09129- 8176 Dec, Acute bronchitis 466.0 and Unspecified arthropathy, site unspecified 716.90 [facility] [id number] [address]- 6258 Dec, [facility] [id number] [place] [address] 21030- 0495 Dec, [facility] [id number] [address]- 4602 Nov, [facility] [id number] [address]- 0676 Nov, [facility] [id number] [address]- 7361 Nov, [facility] [id number] [address]- 2119 Oct, [facility] [id number] [address]- 9985 Oct, [facility] [id number] [address]- 7660 Oct, Unspecified arthropathy, site unspecified 716.90 [facility] [id number] [address]- 5784 Oct, [facility] [place] [facility] [address] [id number] [place] [address]- 6035 September, [facility] [place] [facility] [address] [id number] [place] [address]- 0156 September, [facility] [place] [facility] [address] [id number] [place] [address]- 7757 Aug, [facility] [place] [facility] [address] [id number] [place] [address]- 2936 Aug, [facility] [place] [facility] [address] [id number] [place] [address]- 6546 Jul, [facility] [place] [facility] [address] [id number] [place] [address]- 1191 Jul, [facility] [place] [facility] [address] [id number] [place] [address]- 6362 Jul, [facility] [place] [facility] [address] [id number] [place] [address]- 4179 Jul, [facility] [place] [facility] [address] [id number] [place] [address]- 9568 Jul, [facility] [place] [facility] [address] [id number] [place] [address]- 2522 Jul, [facility] [place] [facility] [address] [id number] [place] [address]- 1451 Jun, [facility] [place] [facility] [address] [id number] [place] [address]- 7093 Jun, [facility] [place] [facility] [address] [id number] [place] [address]- 2981 Jun, [facility] [place] [facility] [address] [id number] [place] [address]- 6502 Jun, [facility] [place] [facility] [address] [id number] [place] [address]- 0130 May, [facility] [place] [facility] [address] [id number] [address]- 8972 May, [facility] [place] [facility] [address] [id number] [place] [address]- 6694 May, [facility] [place] [facility] [address] [id number] [place] [address]- 8955 May, [facility] [place] [facility] [address] [id number] [place] [address]- 2091 May, [facility] [place] [facility] [address] [id number] [place] [address]- 7991 May, [facility] [place] [facility] [address] [id number] [place] [address]- 1684 May, [facility] [place] [facility] [address] [id number] [place] [address]- 1322 May, [facility] [place] [facility] [address] [id number] [place] [address]- 9078 May, [facility] [place] [facility] [address] [id number] [place] [address]- 0655 May, [facility] [place] [facility] [address] [id number] [place] [address]- 3961 May, [facility] [place] [facility] [address] [id number] [place] [address]- 8553 Apr, [facility] [place] [facility] [address] [id number] [place] [address]- 2859 Apr, [facility] [place] [facility] [address] [id number] [place] [address]- 2305 Apr, [facility] [place] [facility] [address] [id number] [place] [address]- 0848 Apr, [facility] [place] [facility] [address] [id number] [place] 9193 Apr, [facility] [place] [facility] [address] [id number] [place] [address]- 0238 Mar, [facility] [place] [facility] [address] [id number] [place] [address]- 3861 Mar, [facility] [place] [facility] [address] [id number] [place] [address]- 8627 Feb, [facility] [place] [facility] [address] [id number] [place] [address]- 9394 Feb, [facility] [place] [facility] [address] [id number] [place] [address]- 8499 Feb, [facility] [place] [facility] [address] [id number] [place] [address]- 4338 Feb, [facility] [place] [facility] [address] [id number] [place] [address]- 0118 Jan, [facility] [place] [facility] [address] [id number] [place] [address]- 2182 Jan, [facility] [place] [facility] [address] [id number] [place] [address]- 1584 Dec, [facility] [place] [facility] [address] [id number] [place] [address]- 5139 Dec, [facility] [place] [facility] [address] [id number] [place] [address]- 0588 Nov, [facility] [place] [facility] [address] [id number] [place] [address]- 0587 Nov, [facility] [place] [facility] [address] [id number] [place] [address]- 2985 Oct, [facility] [place] [facility] [address] [id number] [place] [address]- 1033 Oct, [facility] [place] [facility] [address] [id number] [place] [address]- 1987 Oct, [facility] [place] [facility] [address] [id number] [place] [address]- 3193 Oct, [facility] [place] [facility] [address] [id number] [place] [address]- 1389 Aug, [facility] [place] [facility] [address] [id number] [place] [address]- 2107 08 Aug, 2013 [facility] [place] [facility] [address] [id number] [place] [address]- 2686 Aug, [facility] [place] [facility] [address] [id number] [place] [address]- 8062 Aug, [facility] [place] [facility] [address] [id number] [place] [address]- 3671 May, [facility] [place] [facility] [address] [id number] [place] [address]- 3516 May, [facility] [place] [facility] [address] [id number] [place] [address]- 4936 May, [facility] [place] [facility] [address] [id number] [place] [address]- 4204 May, [facility] [place] [facility] [address] [id number] [place] [address]- 9122 May, [facility] [place] [facility] [address] [id number] [place] [address]- 0537 May, [facility] [place] [facility] [address] [id number] [place] [address]- 4417 May, [facility] [place] [facility] [address] [id number] [place] [address]- 5526 Apr, [facility] [place] [facility] [address] [id number] [address]- 0354 Apr, [facility] [place] [facility] [address] [id number] [place] [address]- 9834 Apr, [facility] [place] [facility] [address] [id number] [place] [address]- 7411 Apr, [facility] [place] [facility] [address] [id number] [place] [address]- 0615 Apr, [facility] [place] [facility] [address] [id number] [address]- 5164 Apr, [facility] [address] [id number] [place] [address]- 1354 Apr, [facility] [address] [id number] [place] [address]- 0986 Apr, [facility] [address] [id number] [place] [address]- 4284 Apr, [facility] [place] [facility] [address] [id number] [place] [address]- 4800 Apr, [facility] [address] [id number] [place] [address]- 7109 Mar, [facility] [place] [facility] [address] [id number] [place] [address]- 4292 Mar, [facility] [address] [id number] [address]- 1782 Mar, [facility] [place] [facility] [address] [id number] [place] [address]- 2709 Mar, [facility] [address] [id number] [place] [address]- 0585 Feb, [facility] [address] [id number] [place] [address]- 6741 Feb, [facility] [address] [id number] [address]- 2455 Jan, [facility] [place] [facility] [address] [id number] [place] [address]- 4690 Jan, [facility] [place] [facility] [address] [id number] [address]- 9914 Jan, [facility] [place] [facility] [address] [id number] [place] [address]- 9264 Dec, [facility] [place] [facility] [address] [id number] [address]- 6083 Dec, [facility] [place] [facility] [address] [id number] [place] [address]- 6404 Nov, [facility] [place] [facility] [address] [id number] [place] [address]- 2037 Oct, [facility] [place] [facility] [address] [id number] [place] [address]- 8854 Oct, [facility] [place] [facility] [address] [id number] [place] [address]- 7731 Oct, [facility] [place] [facility] [address] [id number] [place] [address]- 5320 September, [facility] [place] [facility] [address] [id number] [place] [address]- 0374 September, [facility] [place] [facility] [address] [id number] [place] [address] Jun, [facility] [place] [facility] [address] [id number] [place] [address] Jun, [facility] [place] [facility] [address] [id number] [place] [address] Jun, [facility] [place] [facility] [address] [id number] [place] [address] Jun, [facility] [place] [facility] [address] [id number] [place] [address] May, [facility] [place] [facility] [address] [id number] [place] [address] May, [facility] [place] [facility] [address] [id number] [place] [address] May, [facility] [place] [facility] [address] [id number] [place] [address] May, [facility] [place] [facility] [address] [id number] [place] [address] Apr, [facility] [place] [facility] [address] [id number] [address] Apr, [facility] [place] [facility] [address] [id number] [place] [address] [address] Apr, [facility] [place] [facility] [address] [id number] [place] [address]- [address] Apr, [facility] [place] [facility] [address] [id number] [place] [address]- [address] Apr, [facility] [place] [facility] [address] [id number] [place] [address]- [address] Apr, [facility] [place] [facility] [address] [id number] [place] [address] Mar, [facility] [place] [facility] [address] [id number] [place] [address] Mar, [facility] [place] [facility] [address] [id number] [place] [address] Mar, [facility] [place] [facility] [address] [id number] [place] [address]- [address] Mar, [facility] [place] [facility] [address] [id number] [place] [address] Feb, [facility] [place] [facility] [address] [id number] [place] [address] Feb, [facility] [place] [facility] [address] [id number] [place] [address] Feb, [facility] [place] [facility] [address] [id number] [place] [address] 11 Feb, 2012 [facility] [place] [facility] [address] [id number] [place] [address] 10 Feb, 2012 [facility] [place] [facility] [address] [id number] [place] [address] 17 Sep2011 [facility] [place] [facility] [address] [id number] [place] [address] 13 Sep2011 [facility] [place] [facility] [address] [id number] [place] [address] 12 Jan, 2012 [facility] [address] [id number] [place] [address]- [address] 12 Jan, 2012 [facility] [place] [facility] [address] [id number] [place] [address]- [address] 11 Jan, 2012 [facility] [address] [id number] [place] [address]- [address] 14 Dec, 2011 [facility] [address] [id number] [place] [address] 17 Nov, 2011 [facility] [address] [id number] [place] [address] Nov, [facility] [address] [id number] [place] [address] Nov, [facility] [address] [id number] [place] [address] Nov, [facility] [address] [id number] [place] [address]- [address] Nov, [facility] [address] [id number] [place] [address]- [address] 14 Oct, 2011 [facility] [address] [id number] [place] [address] September, [facility] [address] [id number] [place] [address]- [address] September, [facility] [address] [id number] [place] [address]- [address] 13 Aug, 2011 [facility] [place] [facility] [address] [id number] [place] [address] Aug, [facility] [place] [facility] [address] [id number] [place] [address]- [address] Aug, [facility] [place] [facility] [address] [id number] [place] [address] Aug, [facility] [address] [id number] [place] [address]- [address] 16 Jul, 2011 [facility] [place] [facility] [address] [id number] [place] [address] Jul, [facility] [place] [facility] [address] [id number] [place] [address]- [address] Jun, [facility] [place] [facility] [address] [id number] [place] [address]- [address] Jun, [facility] [place] [facility] [address] [id number] [place] [address]- [address] Jun, [facility] [place] [facility] [address] [id number] [place] [address] Jun, [facility] [place] [facility] [address] [id number] [place] [address]- [address] May, [facility] [place] [facility] [address] [id number] [place] [address]- [address] May, [facility] [place] [facility] [address] [id number] [place] [address] May, [facility] [place] [facility] [address] [id number] [place] [address]- [address] May, [facility] [place] [facility] [address] [address] [id number] [place] [address] May, [facility] [place] [facility] [address] [id number] [place] [address] May, [facility] [place] [facility] [address] [id number] [place] [address] Apr, [facility] [place] [facility] [address] [id number] [place] [address] Apr, [facility] [place] [facility] [address] [id number] [place] [address] Apr, [facility] [place] [facility] [address] [id number] [place] [address] Apr, [facility] [address] [id number] [place] [address] Apr, [facility] [address] [id number] [place] [address] [address] 16 Apr, 2011 [facility] [address] [id number] [place] [address] 16 Apr, 2011 [facility] [address] [id number] [place] [address] Apr, [facility] [address] [id number] [place] [address] Mar, [facility] [address] [id number] [place] [address] Mar, [facility] [address] [id number] [place] [address] Mar, [facility] [address] [id number] [place] [address] September, [facility] [address] [id number] [place] [address] September, [facility] [address] [id number] [place] [address] Jul, [facility] [address] [id number] [place] [address] 10 Jun, 2010 [facility] [address] [id number] [place] [address] Apr, [facility] [place] [facility] [address] [id number] [place] [address] Apr, [facility] [place] [facility] [address] [id number] [place] [address] Apr, [facility] [address] [id number] [place] [address] Mar, [facility] [address] [id number] [address] Mar, [facility] [address] [facility] [id number] [address] Mar, [facility] [address] [facility] [id number] [address] Feb, [facility] [address] [facility] [id number] [address] Jan, [facility] [address] [facility] [id number] [address] Apr, [facility] [address] [facility] [id number] [place] [address] Apr, [facility] [id number] [address] Mar, [facility] [id number] [address] Mar, [facility] [address] [id number] [address] Feb, [facility] [address] [id number] [address] Jun, IMMUNIZATIONS No Known Immunizations SOCIAL HISTORY Never Assessed REASON FOR VISIT Controlled Med Refill PLAN OF CARE VITAL SIGNS MEDICATIONS Medication Instructions Dosage Frequency Start Date End Date Duration Status Hydrocodone-Acetaminophen 10-325 MG Orally every 4 hrs 1 tablet 4h 10 Jan, 2017 28 days Active Tramadol HCl 50 mg [...]
--- OUTSIDE RECORDS SUMMARY | 2018-02-27 15:05 | XMS REPORT ---
Author Author PRISCILA PITT 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
--- OUTSIDE RECORDS SUMMARY | 2018-02-27 15:06 | XMS REPORT ---
Author Author PRISCILA PITT [facility] Address [address] [place] [address] Care Team Providers Care Seamer Panty Hose Name Role Phone PRISCILA PITT Unavailable PROBLEMS Type Condition ICD9-CM Code [id number] Code Onset Dates Condition Status SNOMED Code Problem Venous insufficiency I87.2 Active 57186694 Problem Back pain M54.9 Active 536872723 Problem GERD (gastroesophageal reflux disease) K21.9 Active 147292977 Problem Coronary artery disease I25.10 Active 14561771 Problem Hyperlipidemia E78.5 Active 67891052 Problem Hypertension I10 Active 26113262 ALLERGIES No Known Allergies SOCIAL HISTORY No smoking Hx information available PLAN OF CARE VITAL SIGNS MEDICATIONS Medication Instructions Dosage Frequency Start Date End Date Duration Status Hydrocodone-Acetaminophen 10-325 MG 1 tablet as needed 4h Apr, Active Tramadol HCl 50 MG Orally every 6 hrs 1 tablet as needed 6h Active RESULTS No Results PROCEDURES No Known procedures IMMUNIZATIONS No Known Immunizations
--- OUTSIDE RECORDS SUMMARY | 2018-02-27 15:06 | XMS REPORT ---
Author Author PRISCILA PITT Organization [facility] [place] Address [address] [place] [address] Care Team Providers Care Freight Associate Name Role Phone PRISCILA PITT Unavailable PROBLEMS Type Condition ICD9-CM Code CLM87-BW Code Onset Dates Condition Status SNOMED Code Problem Coronary artery disease I25.10 Active 19419923 Problem Cigarette nicotine dependence without complication F17.210 Active 35461765 Problem Venous insufficiency I87.2 Active 01850625 Problem Hyperlipidemia E78.5 Active 24505179 Problem Back pain M54.9 Active 237449860 Problem Hypertension I10 Active 49986590 Problem GERD (gastroesophageal reflux disease) K21.9 Active 685256143 ALLERGIES No Information ENCOUNTERS Encounter Location Date Diagnosis [place] [id number] [address] Jun, [facility] [place] [address] [address]- 4175 Jun, Back pain M54.9 [facility] [place] [address] [place] [id number] [place] [address] 74373- 6528 May, Back pain M54.9 [facility] [place] [address] 60359- 7808 May, Back pain M54.9 [facility] [place] [id number] [place] [address] 78539- 2265 May, Hypertension I10 ; Back pain M54.9 and Cigarette nicotine dependence without complication F17.210 [facility] [place] [address] 79308- 1457 Apr, Back pain M54.9 [facility] [place] [address] 20817- 3622 Apr, Hypokalemia E87.6 [facility] [place] [id number] [place] [address] 13939- 1336 Apr, Hypokalemia E87.6 [facility] [place] [id number] [place] [address] 59238 2546 Mar, Back pain M54.9 [facility] [place] [id number] [place] [address] 99319 2546 Mar, [facility] [place] [id number] [place] [address] 14295 2543 Mar, Back pain M54.9 ; Coronary artery disease I25.10 and Acute nasopharyngitis J00 [facility] [place] [id number] [place] [address] 13938- 9081 Mar, Back pain M54.9 [facility] [place] [id number] [place] [address] 53143- 9149 Feb, Back pain M54.9 [facility] [place] [id number] [place] [address] 80678- 3188 26 Jan, 2017 Anemia due to blood loss D50.0 and Hypokalemia E87.6 [facility] [place] [id number] [place] [address] 99721- 4496 18 Jan, 2017 [facility] [place] [id number] [place] [address] 57224- 0605 11 Jan, 2017 Hypokalemia E87.6 [facility] [place] [id number] [place] [address] 74670- 2546 08 Jan, 2017 Back pain M54.9 [facility] [place] [id number] [place] [address] 86698 2546 08 Jan, 2017 [facility] [place] [id number] [place] [address] 94070- 6938 14 Dec, 2016 Hypertension I10 and Back pain M54.9 [facility] [place] [address] [place] [id number] [place] [address] 0824 29 Oct, 2016 Back pain M54.9 [facility] [place] [id number] [place] [address] 09146- 2979 15 Oct, 2016 Back pain M54.9 [facility] [place] [id number] [place] [address] 26503- 9057 07 Oct, 2016 Back pain M54.9 [facility] [place] [id number] [place] [address] 48209- 1913 September, Back pain M54.9 [facility] [place] [id number] [place] [address] 53233- 6873 Aug, Back pain M54.9 [facility] [place] [id number] [place] [address] 27113- 3925 Aug, Epistaxis R04.0 [facility] [place] [id number] [place] [address] 86190- 2004 15 Jul, 2016 [facility] [place] [id number] [place] [address] 26232- 6513 14 Jul, 2016 Back pain M54.9 [facility] [place] [id number] [place] [address] 10961- 8031 15 Jun, 2016 Back pain M54.9 [facility] [place] [address] [id number] [place] [address] 08229- 9019 Jun, Localized edema R60.0 [facility] [place] [address] [place] [id number] [place] [address] 28156- 0397 Jun, [facility] [place] [id number] [place] [address] 32716- 6747 06 Jun, 2016 Anemia due to blood loss D50.0 ; Venous insufficiency I87.2 ; Hypertension I10 and Plantar fasciitis M72.2 [facility] [place] [address] [address]- 1168 May, Back pain M54.9 [facility] [place] [address] [place] [address] [id number] [place] [address] 56640- 3736 May, [facility] [place] [address] [place] [address] [id number] [place] [address] 50168- 1750 May, care home use of drug Z79.899 ; Anemia due to blood loss D50.0 and Venous insufficiency I87.2 [facility] [place] [address] [place] [id number] [place] [address] 49663- 5030 May, Back pain M54.9 [facility] [place] [address] [place] [id number] [place] [address] 58343- 7443 May, Anemia due to blood loss D50.0 [place] [address] [place] [address] [id number] [place] [address] 59100- 6808 May, Localized edema R60.0 [place] [address] [place] [id number] [place] [address] 05801- 6419 May, Blood loss anemia D50.0 ; Localized edema R60.0 and Coronary artery disease I25.10 [facility] [place] [address] [place] [id number] [place] [address] 08333- 9785 Apr, Blood loss anemia D50.0 [facility] [place] [address] [place] [id number] [place] [address] 50928- 0244 Apr, Epistaxis R04.0 ; Anemia, unspecified type D64.9 and Hyponatremia E87.1 [facility] [place] [address] [place] [id number] [place] [address] 09282- 7952 Apr, [facility] [place] [address] [place] [id number] [place] [address] 34127- 3925 Apr, Back pain M54.9 [facility] [place] [address] [place] [id number] [place] [address] 29953- 5879 Apr, Back pain M54.9 [facility] [place] [address] [place] [address] [id number] [place] [address] 47022- 0487 Mar, [facility] [place] [address] [id number] [address]- 6444 Mar, Back pain M54.9 [facility] [place] [address] [facility] [id number] [place] [address], [place] [address]- 7543 Feb, [facility] [place] [address] [facility] [id number] [place] [address] 65094- 1285 Feb, [facility] [place] [address] [facility] [id number] [place] [address] 56011- 6720 Jan, [facility] [place] [address] [id number] [place] [address] 63725- 0882 Dec, [facility] [place] [address] [facility] [id number] [place] [address], [place] [address]- 4805 Dec, [facility] [place] [address] [place] [id number] [place] [address] 90715- 0882 Dec, Arthritis, 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 and Leg weakness, bilateral M62.81 [facility] [place] [address] [facility] [id number] [place] [address] 03819- 2355 Dec, [facility] [place] [address] [place] [id number] [place] [address] 60464- 1731 Oct, Back pain M54.9 [facility] [place] [address] [place] [id number] [place] [address] 16094- 4667 Oct, Back pain M54.9 [facility] [place] [address] [place] [id number] [place] [address] 25062- 6550 September, Back pain M54.9 [facility] [place] [address] [facility] [id number] [place] [address] 68003- 3982 Aug, Back pain M54.9 [facility] [place] [address] [facility] [id number] [place] [address] 63487- 5108 Aug, Back pain M54.9 [facility] [place] [address] [facility] [id number] [address]- 3406 Jul, [facility] [place] [address] [place] [id number] [place] [address] 95211- 9797 07 Jul, 2015 Back pain M54.9 [facility] [place] [address] 97081- 4261 16 Jun, 2015 [facility] [place] [address] 61874- 1839 03 Jun, 2015 Back pain M54.9 [facility] [place] [address] 06669- 2726 15 May, 2015 care home use of drug Z79.899 ; Back pain M54.9 ; Hyperlipidemia E78.5 ; Hypertension I10 and GERD (gastroesophageal reflux disease) K21.9 [place] [address] 05170- 5813 13 May, 2015 Arthritis M19.90 [place] [address] 87185- 0900 Apr, [facility] [place] [address] 42675- 8133 Apr, [place] [address] 32669- 2550 Mar, [place] [address] [place] [id number] [place] [address] 53887- 9910 Mar, [place] [address] 77409- 2934 Feb, Arthritis M19.90 ; Encounter for immunization Z23 ; Contusion of right hip S70.01XA and Coronary artery disease I25.10 [place] [address] 43505- 2865 Jan, [facility] [place] [address] 18468- 3721 Jan, [facility] [place] [address] 62267- 3262 Dec, Acute bronchitis 466.0 and Unspecified arthropathy, site unspecified 716.90 [facility] [place] [address] [facility] [id number] [place] [address]- 7296 Dec, [facility] [place] [address] [facility] [id number] [place] [address]- 9598 Dec, [facility] [place] [address] [facility] [id number] [place] [address]- 6104 Nov, [facility] [address] [facility] [id number] [place] [address]- 4998 Nov, [facility] [address] [facility] [id number] [place] [address]- 2374 Nov, [facility] [address] [place] [id number] [place] [address]- 3539 Oct, [facility] [place] [address] [place] [address]- 1434 Oct, [facility] [place] [address] [id number] [place] [address]- 0550 Oct, Unspecified arthropathy, site unspecified 716.90 [facility] [place] [address] [place] [address]- 0685 Oct, [facility] [place] [address] [id number] [place] [address]- 8555 September, [facility] [place] [id number] [place] [address]- 7123 September, [facility] [place] [address] [facility] [id number] [place] [address]- 0922 Aug, [facility] [place] [address] [address] [id number]- 2058 Aug, [facility] [address] [facility] [id number] [place] [address]- 0716 Jul, [facility] [place] [address] [id number] [place] [address]- 9577 Jul, [facility] [place] [facility] [address] [id number] [place] [address]- 9609 Jul, [facility] [place] [facility] [address] [id number] [place] [address]- 9394 Jul, [facility] [place] [facility] [address] [id number] [place] [address]- 5970 Jul, [facility] [place] [facility] [address] [id number] [place] [address]- 1919 Jul, [facility] [place] [facility] [address] [id number] [place] [address]- 7456 Jun, [facility] [place] [facility] [address] [id number] [place] [address]- 2116 Jun, [facility] [place] [facility] [address] [id number] [place] [address]- 4654 Jun, [facility] [place] [facility] [address] [id number] [place] [address]- 9037 Jun, [facility] [place] [facility] [address] [id number] [place] [address]- 1644 May, [facility] [place] [facility] [address] [id number] [place] [address]- 0442 May, [facility] [place] [facility] [address] [id number] [place] [address]- 1294 May, [facility] [place] [facility] [address] [id number] [address]- 2153 May, [facility] [place] [facility] [address] [id number] [place] [address]- 8107 May, [facility] [place] [facility] [address] [id number] [place] [address]- 6525 May, [facility] [place] [facility] [address] [id number] [place] [address]- 7961 May, [facility] [place] [facility] [address] [id number] [place] [address]- 1364 May, [facility] [address] [id number] [place] [address]- 3185 May, [facility] [place] [facility] [address] [id number] [place] [address]- 8030 May, [facility] [address] [id number] [place] [address]- 9102 May, [facility] [place] [facility] [address] [id number] [place] [address]- 6110 Apr, [facility] [address] [id number] [place] [address]- 9464 Apr, [facility] [place] [facility] [address] [id number] [place] 8459 Apr, [facility] [place] [facility] [address] [id number] [place] [address]- 6338 Apr, [facility] [place] [facility] [address] [id number] [place] [address]- 9727 Apr, [facility] [place] [facility] [address] [id number] [place] [address]- 1987 Mar, [facility] [address] [facility] [id number] [place] [address]- 6094 Mar, [facility] [place] [facility] [address] [id number] [place] [address]- 6913 Feb, [facility] [place] [facility] [address] [id number] [place] [address]- 1071 Feb, [facility] [place] [facility] [address] [id number] [place] [address]- 2281 Feb, [facility] [place] [facility] [address] [id number] [place] [address]- 8616 Feb, [facility] [place] [facility] [address] [id number] [place] [address]- 4559 Jan, [facility] [place] [facility] [address] [id number] [place] [address]- 9959 Jan, [facility] [place] [facility] [address] [id number] [place] [address]- 3344 Dec, [facility] [place] [facility] [address] [id number] [place] [address]- 1985 Dec, [facility] [place] [facility] [address] [id number] [place] [address]- 8126 Nov, [facility] [place] [facility] [address] [id number] [place] [address]- 3875 Nov, [facility] [place] [facility] [address] [id number] [place] [address]- 7664 Oct, [facility] [place] [facility] [address] [id number] [place] [address]- 5268 Oct, [facility] [place] [facility] [address] [id number] [place] [address]- 3690 Oct, [facility] [place] [facility] [address] [id number] [place] [address]- 1079 Oct, [facility] [place] [facility] [address] [id number] [place] [address]- 5949 Aug, [facility] [place] [facility] [address] [id number] [place] [address]- 3174 Aug, [facility] [place] [facility] [address] [id number], [place] [address]- 9508 Aug, [facility] [place] [facility] [address] [id number] [place] [address]- 4485 Aug, [facility] [place] [facility] [address] [id number] [place] [address]- 1352 May, [facility] [place] [facility] [address] [id number] [place] [address]- 4889 May, [facility] [place] [facility] [address] [id number] [address]- 3332 May, [facility] [address] [id number] [place] [address]- 3749 May, [facility] [place] [facility] [address] [id number] [place] [address]- 8202 May, [facility] [place] [facility] [address] [facility] [id number] [place] [address]- 2551 May, [facility] [place] [facility] [address] [id number] [place] [address]- 0816 May, [facility] [address] [id number] [place] [address]- 5799 Apr, [facility] [place] [facility] [address] [id number] [place] [address]- 8875 Apr, [facility] [address] [facility] [id number] [place] [address]- 9523 Apr, [facility] [place] [facility] [address] [id number] [place] [address]- 9510 Apr, [facility] [address] [facility] [id number] [place] [address]- 3848 Apr, [facility] [place] [facility] [address] [facility] [id number] [place] [address]- 4413 Apr, [facility] [place] [facility] [address] [id number] [place] [address]- 6642 Apr, [facility] [place] [facility] [address] [id number] [place] [address]- 9748 Apr, [facility] [place] [facility] [address] [id number] [place] 8994 Apr, [facility] [place] [facility] [address] [id number] [place] [address]- 2199 Apr, [facility] [place] [facility] [address] [facility] [id number] [place] [address]- 1975 Mar, [facility] [place] [facility] [address] [id number] [place] [address]- 8879 Mar, [facility] [place] [facility] [address] [id number] [place] [address]- 5739 Mar, [facility] [place] [facility] [address] [id number] [place] [address]- 9438 Mar, [facility] [place] [facility] [address] [id number] [place] [address]- 8522 Feb, [facility] [place] [facility] [address] [id number] [place] [address]- 5113 Feb, [facility] [place] [facility] [address] [id number] [place] [address]- 0992 Jan, [facility] [place] [facility] [address] [id number] [place] [address]- 4795 Jan, [facility] [place] [facility] [address] [id number] [place] [address]- 2597 Jan, [facility] [place] [facility] [address] [id number] [place] [address]- 6975 Dec, [facility] [place] [facility] [address] [id number] [place] [address]- 7502 Dec, [facility] [place] [facility] [address] [id number] [place] [address]- 2511 Nov, [facility] [place] [facility] [address] [id number] [place] [address]- 6688 Oct, [facility] [place] [facility] [address] [id number] [place] [address] Oct, [facility] [place] [facility] [address] [id number] [place] [address] Oct, [facility] [place] [facility] [address] [id number] [place] [address] September, [facility] [place] [facility] [address] [id number] [place] [address] September, [facility] [address] [id number] [place] [address] Jun, [facility] [place] [facility] [address] [id number] [place] [address] Jun, [facility] [place] [facility] [address] [id number] [place] [address] Jun, [facility] [place] [facility] [address] [id number] [place] [address] Jun, [facility] [place] [facility] [address] [id number] [place] [address] May, [facility] [place] [facility] [address] [id number] [place] [address] May, [facility] [place] [facility] [address] [id number] [place] [address] May, [facility] [place] [facility] [address] [id number] [place] [address] May, [facility] [place] [facility] [address] [id number] [place] [address] Apr, [facility] [place] [facility] [address] [id number] [place] [address] Apr, [facility] [place] [facility] [address] [id number] [place] [address] Apr, [facility] [place] [facility] [address] [id number] [place] [address] Apr, [facility] [place] [facility] [address] [id number] [place] [address] Apr, [facility] [place] [facility] [address] [id number] [place] [address] Apr, [facility] [place] [facility] [address] [id number] [place] [address] Mar, [facility] [place] [facility] [address] [id number] [place] [address] 08 Mar, 2012 [facility] [place] [facility] [address] [id number] [place] [address] Mar, [facility] [place] [facility] [address] [id number] [place] [address] Mar, [facility] [place] [facility] [address] [id number] [place] [address] Feb, [facility] [place] [facility] [address] [id number] [place] [address] Feb, [facility] [place] [facility] [address] [id number] [place] [address] Feb, [facility] [place] [facility] [address] [id number] [place] [address] Feb, [facility] [place] [facility] [address] [id number] [place] [address] Feb, [facility] [place] [facility] [address] [id number] [place] [address] 17 Jan, 2012 [facility] [place] [facility] [address] [id number] [place] [address] 13 Jan, 2012 [facility] [place] [facility] [address] [id number] [place] [address] 12 Jan, 2012 [facility] [place] [facility] [address] [id number] [place] [address] 12 Jan, 2012 [facility] [place] [facility] [address] [id number] [place] [address] 11 Jan, 2012 [facility] [place] [facility] [address] [id number] [place] [address] 14 Dec, 2011 [facility] [place] [facility] [address] [id number] [place] [address] 17 Nov, 2011 [facility] [place] [facility] [address] [id number] [place] [address] 13 Nov, 2011 [facility] [address] [id number] [place] [address] Nov, [facility] [place] [facility] [address] [id number] [place] [address] Nov, [facility] [place] [facility] [address] [id number] [place] [address] Nov, [facility] [place] [facility] [address] [id number] [place] [address] Oct, [facility] [place] [facility] [address] [id number] [place] [address] September, [facility] [place] [facility] [address] [id number] [place] [address] September, [facility] [place] [facility] [address] [id number] [place] [address] Aug, [facility] [place] [facility] [address] [id number] [place] [address] Aug, [facility] [place] [facility] [address] [id number] [place] [address] Aug, [facility] [place] [facility] [address] [id number] [place] [address] Aug, [facility] [place] [facility] [address] [id number] [place] [address] Jul, [facility] [place] [facility] [address] [id number] [place] [address] Jul, [facility] [place] [facility] [address] [id number] [place] [address] Jun, [facility] [place] [facility] [address] [id number] [place] [address] Jun, [facility] [place] [facility] [address] [address] [id number] [place] [address] Jun, [facility] [place] [facility] [address] [id number] [place] [address] Jun, [facility] [address] [id number] [place] [address] May, [facility] [place] [facility] [address] [id number] [place] [address] May, [facility] [address] [id number] [place] [address] May, [facility] [place] [facility] [address] [id number] [place] [address] May, [facility] [address] [id number] [place] [address] May, [facility] [place] [facility] [address] [id number] [place] [address] May, [facility] [address] [id number] [place] [address] Apr, [facility] [address] [id number] [place] [address] Apr, [facility] [address] [id number] [place] [address] Apr, [facility] [place] [facility] [address] [id number] [place] [address] Apr, [facility] [address] [id number] [place] [address] 2016 Apr, [facility] [place] [facility] [address] [id number] [place] [address] 16 Apr, 2011 [facility] [place] [facility] [address] [id number] [place] [address] Apr, [facility] [place] [facility] [address] [id number] [place] [address] Apr, [facility] [place] [facility] [address] [id number] [place] [address] Mar, [facility] [place] [facility] [address] [id number] [place] [address] Mar, [facility] [address] [id number] [place] [address] 08 Mar, 2011 [facility] [place] [facility] [address] [id number] [place] [address] September, [facility] [place] [facility] [address] [id number] [place] [address] September, [facility] [place] [facility] [address] [id number] [place] [address] Jul, [facility] [place] [facility] [address] [id number] [place] [address] 10 Jun, 2010 [facility] [place] [facility] [address] [id number] [place] [address] Apr, [facility] [address] [id number] [place] [address] Apr, [facility] [place] [facility] [address] [id number] [place] [address] Apr, [facility] [place] [facility] [address] [id number] [place] [address] Mar, [facility] [place] [facility] [address] [id number] [place] [address] Mar, [facility] [place] [facility] [address] [id number] [place] [address] Mar, [facility] [place] [facility] [address] [id number] [place] [address] 20 Feb, 2010 [facility] [place] [facility] [address] [id number] [place] [address] 14 Jan, 2010 [facility] [place] [facility] [address] [id number] [place] [address] 04 Apr, 2009 [facility] [place] [facility] [address] [id number] [place] [address] Apr, [facility] [place] [address] [facility] [id number] [address] Mar, [facility] [place] [address] [facility] [id number] [address] Mar, [facility] [place] [address] [facility] [id number], [place] [address] Feb, [facility] [place] [address] [facility] [id number], [place] [address] Jun, IMMUNIZATIONS No Known Immunizations SOCIAL HISTORY Never Assessed REASON FOR VISIT Hydrocodone and Tramadol- 10/21 PLAN OF CARE VITAL SIGNS MEDICATIONS Medication Instructions Dosage Frequency Start Date End Date Duration Status Hydrocodone-Acetaminophen 10-325 MG Orally every 4 hrs 1 tablet 4h Oct, 28 days Active Tramadol HCl 50 mg [...]
--- OUTSIDE RECORDS SUMMARY | 2018-02-27 15:06 | XMS REPORT ---
Author Author PRISCILA PITT [facility] Address [address] [place] [address] Care Team Providers Care Insulation Supervisor Name Role Phone PRISCILA PITT Unavailable PROBLEMS Type Condition ICD9-CM Code [id number] Code Onset Dates Condition Status SNOMED Code Problem Venous insufficiency I87.2 Active 60079428 Problem Back pain M54.9 Active 294405444 Problem GERD (gastroesophageal reflux disease) K21.9 Active 946126759 Problem Coronary artery disease I25.10 Active 69306878 Problem Hyperlipidemia E78.5 Active 51625482 Problem Hypertension I10 Active 46613332 ALLERGIES No Known Allergies SOCIAL HISTORY No smoking Hx information available PLAN OF CARE VITAL SIGNS MEDICATIONS No Known Medications RESULTS No Results PROCEDURES No Known procedures IMMUNIZATIONS No Known Immunizations
--- OUTSIDE RECORDS SUMMARY | 2018-02-27 15:06 | XMS REPORT ---
Author Author PRISCILA PITT Organization [facility] Address [address] [place] [address] Care Team Providers Care Flexo Operator Name Role Phone PRISCILA PITT Unavailable PROBLEMS Type Condition ICD9-CM Code [id number] Code Onset Dates Condition Status SNOMED Code Problem Venous insufficiency I87.2 Active 10866338 Problem Hypertension I10 Active 45789852 Problem Back pain M54.9 Active 561676075 Problem Coronary artery disease I25.10 Active 41544652 Problem GERD (gastroesophageal reflux disease) K21.9 Active 509773533 Problem Hyperlipidemia E78.5 Active 35452419 ALLERGIES No Information SOCIAL HISTORY Never Assessed PLAN OF CARE VITAL SIGNS MEDICATIONS Medication Instructions Dosage Frequency Start Date End Date Duration Status Tramadol HCl 50 mg Orally every 6 hrs 1 tablet 6h 28 days Active Hydrocodone-Acetaminophen 10-325 MG Orally every 4 hrs 1 tablet 4h September, 28 days Active RESULTS No Results PROCEDURES [...]
--- OUTSIDE RECORDS SUMMARY | 2018-02-27 15:06 | XMS REPORT ---
Author Author PRISCILA PITT [facility] Address [address] [place] [address] Care Team Providers Care Dermatologist Managing Partner Name Role Phone PRISCILA PITT Unavailable PROBLEMS Type Condition ICD9-CM Code AZE27-NP Code Onset Dates Condition Status SNOMED Code Problem Venous insufficiency I87.2 Active 01688817 Problem Hypertension I10 Active 71411428 Problem Back pain M54.9 Active 474971880 Problem Coronary artery disease I25.10 Active 19732160 Problem GERD (gastroesophageal reflux disease) K21.9 Active 203321899 Problem Hyperlipidemia E78.5 Active 27114592 ALLERGIES No Known Allergies SOCIAL HISTORY No smoking Hx information available PLAN OF CARE VITAL SIGNS MEDICATIONS Medication Instructions Dosage Frequency Start Date End Date Duration Status Baclofen 10 mg Orally Once a day 1 tablet 24h May, Active RESULTS No Results PROCEDURES No Known procedures IMMUNIZATIONS No Known Immunizations
--- OUTSIDE RECORDS SUMMARY | 2018-02-27 15:06 | XMS REPORT ---
Author Author PRISCILA PITT Organization [facility] Address [address] [place] [address] Care Team Providers Care Supervisor Cigarette Making Department Name Role Phone PRISCILA PITT Unavailable PROBLEMS Type Condition ICD9-CM Code PIC45-JE Code Onset Dates Condition Status SNOMED Code Problem Back pain M54.9 Active 644162200 Problem Coronary artery disease I25.10 Active 02447276 Problem Peripheral vascular disease I73.9 Active 368392988 Problem Cigarette nicotine dependence without complication F17.210 Active 03929866 Problem GERD (gastroesophageal reflux disease) K21.9 Active 631143810 Problem Hyperlipidemia E78.5 Active 01822145 Problem Venous insufficiency I87.2 Active 71464874 Problem Hypertension I10 Active 80118399 ALLERGIES No Information ENCOUNTERS Encounter Location Date Diagnosis [place] [id number] [place] [address] 10674- 2525 September, [facility] current use of opiate analgesic Z79.891 ; Medication monitoring encounter Z51.81 ; Back pain M54.9 ; Weakness R53.1 ; Cigarette nicotine dependence without complication F17.210 ; Coronary artery disease I25.10 and Peripheral vascular disease I73.9 [facility] [id number] [place] [address] 97637- 4840 September, Back pain M54.9 [facility] [id number] [place] [address] 51710- 9042 Aug, Back pain M54.9 [facility] [id number] [place] [address] 58386- 3957 Aug, [facility] [id number] [place] [address] 64225- 9239 Aug, Back pain M54.9 [facility] [address] [place] [address]- 7550 Jul, Back pain M54.9 [facility] [address] 17244- 6096 Jun, [facility] [address] 89251- 8724 Jun, Back pain M54.9 [facility] [address] 31161- 5324 May, Back pain M54.9 [facility] [address] 12212- 9405 May, Back pain M54.9 [facility] [address] 60289- 0045 May, Hypertension I10 ; Back pain M54.9 and Cigarette nicotine dependence without complication F17.210 [facility] [address] 27997- 9699 Apr, Back pain M54.9 [facility] [id number] [place] [address] 52292- 5857 Apr, Hypokalemia E87.6 [facility] [id number] [place] [address] 66229- 4928 Apr, Hypokalemia E87.6 [facility] [id number] [place] [address] 03798- 2548 Mar, Back pain M54.9 [facility] [id number] [place] [address] 35609- 1817 Mar, [facility] [address] 78004- 254 Mar, Back pain M54.9 ; Coronary artery disease I25.10 and Acute nasopharyngitis J00 [facility] [id number] [place] [address] 45576- 9581 Mar, Back pain M54.9 [facility] [id number] [place] [address] 89186- 8980 05 Feb, 2017 Back pain M54.9 [facility] [id number] [place] [address] 06173- 8716 26 Jan, 2017 Anemia due to blood loss D50.0 and Hypokalemia E87.6 [facility] [id number] [place] [address] 73527- 9064 18 Jan, 2017 [facility] [id number] [place] [address] 93322- 0370 11 Jan, 2017 Hypokalemia E87.6 [facility] [id number] [place] [address] 07988- 8740 08 Jan, 2017 Back pain M54.9 [facility] [id number] [place] [address] 43826- 9508 08 Jan, 2017 [facility] [id number] [place] [address] 98942- 9747 14 Dec, 2016 Hypertension I10 and Back pain M54.9 [facility] [id number] [place] [address] 40152- 5570 29 Oct, 2016 Back pain M54.9 [facility] [id number] [place] [address] 44104- 5774 15 Oct, 2016 Back pain M54.9 [facility] [id number] [place] [address] 43008- 7549 07 Oct, 2016 Back pain M54.9 [facility] [id number] [place] [address] 47157- 7882 September, Back pain M54.9 [facility] [id number] [place] [address] 94480- 2974 Aug, Back pain M54.9 [facility] [id number] [place] [address] 59053- 5283 Aug, Epistaxis R04.0 [facility] [address] [address]- 0898 Jul, [facility] [id number] [place] [address] 32227- 4115 Jul, Back pain M54.9 [facility] [id number] [place] [address] 96188- 6200 Jun, Back pain M54.9 [facility] [id number] [place] [address] 49833- 7538 Jun, Localized edema R60.0 [facility] [id number] [place] [address] 63396- 5149 Jun, [facility] [id number] [place] [address] 55986- 2534 Jun, Anemia due to blood loss D50.0 ; Venous insufficiency I87.2 ; Hypertension I10 and Plantar fasciitis M72.2 [facility] [id number] [place] [address] 92374- 1241 May, Back pain M54.9 [facility] [id number] [place] [address] 13490- 3012 May, [facility] [id number] [place] [address] 65143- 4393 May, long term care administrator use of drug Z79.899 ; Anemia due to blood loss D50.0 and Venous insufficiency I87.2 [facility] [address] [address]- 6478 May, Back pain M54.9 [facility] [id number] [place] [address] 81682- 8010 May, Anemia due to blood loss D50.0 [facility] [id number] [place] [address] 00529- 0449 May, Localized edema R60.0 [facility] [id number] [place] [address] 10927- 1466 May, Blood loss anemia D50.0 ; Localized edema R60.0 and Coronary artery disease I25.10 [facility] [id number] [place] [address] 08478- 1823 Apr, Blood loss anemia D50.0 [facility] [id number] [place] [address] 59909- 9251 Apr, Epistaxis R04.0 ; Anemia, unspecified type D64.9 and Hyponatremia E87.1 [facility] [id number] [place] [address] 39531- 3001 Apr, [facility] [id number] [place] [address] 14532- 7977 Apr, Back pain M54.9 [facility] [id number] [place] [address] 15608- 0044 Apr, Back pain M54.9 [facility] [id number] [place] [address] 99262- 4148 Mar, [facility] [id number] [place] [address] 31427- 3891 Mar, Back pain M54.9 [facility] [id number] [place] [address] 11684- 6445 Feb, [facility] [id number] [place] [address] 07636- 1630 Feb, [facility] [id number] [place] [address] 77009- 2037 Jan, [facility] [id number] [place] [address] 91791- 4744 Dec, [facility] [id number] [place] [address] 32028- 6646 Dec, [facility] [id number] [place] [address] 07984- 3421 Dec, Arthritis, 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 and Leg weakness, bilateral M62.81 [facility] [id number] [place] [address] 02964- 6016 Dec, [facility] [id number] [place] [address] 77449- 7371 Oct, Back pain M54.9 [facility] [address] 31559- 5312 Oct, Back pain M54.9 [facility] [address] 95872- 3693 September, Back pain M54.9 [facility] [id number] [place] [address] 28059- 6108 Aug, Back pain M54.9 [facility] [address] 67217- 5371 Aug, Back pain M54.9 [facility] [id number] [place] [address] 74256- 2705 Jul, [facility] [address] 20219- 2761 Jul, Back pain M54.9 [facility] [id number] [place] [address] 47012- 3323 16 Jun, 2015 [facility] [id number] [place] [address] 72733- 3911 Jun, Back pain M54.9 [facility] [id number] [place] [address] 32808- 3004 15 May, 2015 long term care administrator use of drug Z79.899 ; Back pain M54.9 ; Hyperlipidemia E78.5 ; Hypertension I10 and GERD (gastroesophageal reflux disease) K21.9 [facility] [address] [place] [address] 90917- 8897 13 May, 2015 Arthritis M19.90 [place] [address] [address]- 9389 Apr, [facility] [id number] [place] [address] 44603- 2234 Apr, [facility] [address], [place] [address]- 4575 Mar, [facility] [id number] [place] [address] 52172- 3480 Mar, [facility] [address] [place] [address] 91859- 6911 Feb, Arthritis M19.90 ; Encounter for immunization Z23 ; Contusion of right hip S70.01XA and Coronary artery disease I25.10 [facility] [id number] [address]- 2618 Jan, [facility] [id number] [place] [address] 46040- 8369 Jan, [facility] [address], [place] [address]- 6479 Dec, Acute bronchitis 466.0 and Unspecified arthropathy, site unspecified 716.90 [facility] [address] [address]- 0579 Dec, [facility] [address] [address]- 4840 Dec, [facility] [address], [place] [address]- 0211 Nov, [facility] [address], [place] [address]- 5735 Nov, [facility] [address] [address] 0914 Nov, [facility] [address] [place] [address]- 5392 Oct, [facility] [address] [facility] [id number] [place] [address]- 6560 Oct, [facility] [address] [id number], [place] [address]- 2994 Oct, Unspecified arthropathy, site unspecified 716.90 [facility] [place] [facility] [address] [id number] [place] [address]- 6444 Oct, [facility] [place] [facility] [address] [id number], [place] [address]- 2393 September, [facility] [place] [facility] [address] [id number] [place] [address]- 1397 September, [facility] [place] [facility] [address] [id number] [place] [address]- 7593 Aug, [facility] [place] [facility] [address] [facility] [id number] [place] [address]- 8397 Aug, [facility] [place] [facility] [address] [facility] [id number], [place] [address]- 9026 Jul, [facility] [place] [facility] [address] [id number] [place] [address]- 1014 Jul, [facility] [place] [facility] [address] [facility] [id number], [place] [address]- 4047 Jul, [facility] [place] [facility] [address] [id number], [place] [address]- 7726 Jul, [facility] [place] [facility] [address] [id number], [place] [address]- 4896 Jul, [facility] [place] [facility] [address] [id number], [place] [address]- 7571 Jul, [facility] [place] [facility] [address] [id number], [place] [address]- 7184 Jun, [facility] [place] [facility] [address] [facility] [id number][place] [address]- 6747 Jun, [facility] [place] [facility] [address] [id number] [place] [address]- 1854 09 Jun, 2014 [facility] [address] [id number] [place] [address]- 8260 Jun, [facility] [address] [id number] [place] [address]- 3417 May, [facility] [address] [id number] [place] [address]- 5781 May, [facility] [address] [id number] [place] [address]- 3534 May, [facility] [address] [id number] [place] [address]- 2305 May, [facility] [address] [id number] [place] [address]- 1162 May, [facility] [address] [id number] [place] [address]- 3965 May, [facility] [address] [id number] [place] [address]- 8367 May, [facility] [address] [id number] [place] [address]- 0905 May, [facility] [address] [id number] [place] [address]- 1070 May, [facility] [address] [id number] [place] [address]- 7190 May, [facility] [address] [id number] [place] [address]- 8735 May, [facility] [place] [facility] [address] [id number] [place] [address]- 6281 Apr, [facility] [place] [facility] [address] [id number] [place] [address]- 9846 Apr, [facility] [address] [id number] [place] [address]- 3683 Apr, [facility] [place] [facility] [address] [id number] [place] [address]- 8018 Apr, [facility] [place] [facility] [address] [id number] [place] [address]- 5981 Apr, [facility] [place] [facility] [address] [id number] [place] [address]- 1438 Mar, [facility] [place] [facility] [address] [id number] [place] [address]- 4398 Mar, [facility] [place] [facility] [address] [id number] [place] [address]- 0638 Feb, [facility] [place] [facility] [address] [id number] [place] [address]- 7403 Feb, [facility] [place] [facility] [address] [id number] [place] [address]- 0864 Feb, [facility] [place] [facility] [address] [id number] [place] [address]- 4966 Feb, [facility] [place] [facility] [address] [id number] [place] [address]- 5334 Jan, [facility] [place] [facility] [address] [id number] [place] [address]- 2939 Jan, [facility] [place] [facility] [address] [id number] [place] [address]- 0465 Dec, [facility] [place] [facility] [address] [id number] [place] [address]- 9461 Dec, [facility] [place] [facility] [address] [id number] [place] [address]- 3453 Nov, [facility] [place] [facility] [address] [id number] [place] [address]- 4561 Nov, [facility] [place] [facility] [address] [id number] [place] [address]- 4088 Oct, [facility] [place] [facility] [address] [id number], [place] [address]- 4666 Oct, [facility] [place] [facility] [address] [id number] [place] [address]- 5085 Oct, [facility] [place] [facility] [address] [id number] [place] [address]- 9726 Oct, [facility] [place] [facility] [address] [id number] [place] [address]- 8540 Aug, [facility] [place] [facility] [address] [id number] [place] [address]- 1203 Aug, [facility] [place] [facility] [address] [id number] [place] [address]- 3110 Aug, [facility] [place] [facility] [address] [id number] [place] [address]- 5578 Aug, [facility] [place] [facility] [address] [id number] [place] [address]- 8155 May, [facility] [place] [facility] [address] [id number] [place] [address]- 6592 May, [facility] [place] [facility] [address] [id number] [place] [address]- 1831 May, [facility] [place] [facility] [address] [id number] [place] [address]- 7138 May, [facility] [place] [facility] [address] [id number], [place] [address]- 9493 May, [facility] [place] [facility] [address] [id number], [place] [address]- 2768 May, [facility] [place] [facility] [address] [id number] [place] [address]- 3292 May, [facility] [place] [facility] [address] [id number] [place] [address]- 5916 Apr, [facility] [place] [facility] [address] [id number] [place] [address]- 9053 Apr, [facility] [place] [facility] [address] [id number] [place] [address]- 8587 12 Apr, 2013 [facility] [address] [id number] [place] [address]- 7857 Apr, [facility] [place] [facility] [address] [id number] [place] [address]- 2542 Apr, [facility] [address] [id number] [place] [address]- 1544 Apr, [facility] [place] [facility] [address] [id number] [place] [address]- 3926 Apr, [facility] [address] [id number] [place] [address]- 4433 Apr, [facility] [address] [id number] [place] [address]- 6185 Apr, [facility] [place] [facility] [address] [id number] [place] [address]- 6942 Apr, [facility] [address] [id number] [place] [address]- 1097 Mar, [facility] [place] [facility] [address] [id number] [place] [address]- 4132 Mar, [facility] [address] [id number] [place] [address]- 7450 Mar, [facility] [place] [facility] [address] [id number] [place] [address]- 7421 Mar, [facility] [place] [facility] [address] [id number] [place] [address]- 4031 Feb, [facility] [place] [facility] [address] [id number] [place] [address]- 1460 Feb, [facility] [place] [facility] [address] [id number] [place] [address]- 2546 Jan, [facility] [place] [facility] [address] [id number] [place] [address]- 5641 Jan, [facility] [address] [id number] [place] [address]- 5693 Jan, [facility] [place] [facility] [address] [id number] [place] [address]- 2902 Dec, [facility] [place] [facility] [address] [id number] [place] [address]- 0080 Dec, [facility] [place] [facility] [address] [id number] [place] [address]- 5705 Nov, [facility] [place] [facility] [address] [id number] [place] [address]- 4982 Oct, [facility] [place] [facility] [address] [id number] [place] [address]- 4189 Oct, [facility] [place] [facility] [address] [id number] [place] [address]- 1304 Oct, [facility] [place] [facility] [address] [id number] [place] [address]- 3248 September, [facility] [place] [facility] [address] [id number] [place] [address]- 3719 September, [facility] [place] [facility] [address] [id number] [place] [address] Jun, [facility] [place] [facility] [address] [id number] [place] [address] Jun, [facility] [place] [facility] [address] [id number] [place] [address] Jun, [facility] [place] [facility] [address] [id number] [place] [address] Jun, [facility] [place] [facility] [address] [id number] [place] [address] May, [facility] [place] [facility] [address] [id number] [place] [address] May, [facility] [place] [facility] [address] [id number] [place] [address] May, [facility] [address] [id number] [place] [address] May, [facility] [address] [id number] [place] [address] Apr, [facility] [address] [id number] [place] [address] Apr, [facility] [place] [facility] [address] [id number] [place] [address] Apr, [facility] [address] [id number] [place] [address] Apr, [facility] [address] [id number] [place] [address] Apr, [facility] [address] [id number] [place] [address] Apr, [facility] [address] [id number] [place] [address] Mar, [facility] [place] [facility] [address] [id number] [place] [address] Mar, [facility] [address] [facility] [id number] [place] [address] Mar, [facility] [place] [facility] [address] [id number] [place] [address] Mar, [facility] [place] [facility] [address] [id number] [place] [address] Feb, [facility] [place] [facility] [address] [id number] [place] [address] Feb, [facility] [place] [facility] [address] [id number] [place] [address] Feb, [facility] [place] [facility] [address] [id number] [place] [address]- [address] Feb, [facility] [place] [facility] [address] [id number] [place] [address] 10 Feb, 2012 [facility] [place] [facility] [address] [id number] [place] [address] 17 Jan, 2012 [facility] [place] [facility] [address] [id number] [place] [address]- [address] 13 Jan, 2012 [facility] [place] [facility] [address] [id number] [place] [address]- [address] 12 Jan, 2012 [facility] [place] [facility] [address] [id number] [place] [address]- [address] 12 Jan, 2012 [facility] [place] [facility] [address] [id number] [place] [address]- [address]64 11 Jan, 2012 [facility] [place] [facility] [address] [id number] [place] [address]- [address] 14 Dec, 2011 [facility] [place] [facility] [address] [id number] [place] [address]- [address] 17 Nov, 2011 [facility] [place] [facility] [address] [id number] [place] [address] Nov, [facility] [place] [facility] [address] [id number] [place] [address]- [address] Nov, [facility] [place] [facility] [address] [id number] [place] [address] Nov, [facility] [place] [facility] [address] [id number] [place] [address] Nov, [facility] [place] [facility] [address] [id number] [place] [address] 14 Oct, 2011 [facility] [place] [facility] [address] [id number] [place] [address]- [address] 16 Sep, 2011 [facility] [place] [facility] [address] [id number] [place] [address] September, [facility] [place] [facility] [address] [id number] [place] [address]- [address] 13 Aug, 2011 [facility] [address] [id number] [place] [address]- [address] 12 Aug, 2011 [facility] [place] [facility] [address] [id number] [place] [address]- [address]76 12 Aug, 2011 [facility] [place] [facility] [address] [id number] [place] [address]- [address] 11 Aug, 2011 [facility] [place] [facility] [address] [id number] [place] [address]- [address] 16 Jul, 2011 [facility] [place] [facility] [address] [id number] [place] [address]- [address] 09 Jul, 2011 [facility] [place] [facility] [address] [id number] [place] [address]- [address] 10 Jun, 2011 [facility] [id number] [place] [address] 07 Jun, 2011 [facility] [place] [facility] [address] [id number] [place] [address]- [address] 06 Jun, 2011 [facility] [place] [facility] [address] [id number] [place] [address] 03 Jun, 2011 [facility] [place] [facility] [address] [facility] [id number] [place] [address] May, [facility] [place] [facility] [address] [id number] [place] [address]- 38[address] May, [facility] [place] [facility] [address] [id number] [place] [address] May, [facility] [place] [facility] [address] [id number] [place] [address] May, [facility] [place] [facility] [address] [id number] [place] [address] May, [facility] [place] [facility] [address] [facility] [id number] [place] [address] May, [facility] [place] [facility] [address] [id number] [place] [address] Apr, [facility] [place] [facility] [address] [id number] [place] [address] 24 Apr, 2011 [facility] [place] [facility] [address] [id number] [place] [address] Apr, [facility] [place] [facility] [address] [id number] [place] [address] Apr, [facility] [place] [facility] [address] [id number] [place] [address] Apr, [facility] [place] [facility] [address] [id number] [place] [address] Apr, [facility] [place] [facility] [address] [id number] [place] [address] Apr, [facility] [place] [facility] [address] [id number] [place] [address] Apr, [facility] [place] [facility] [address] [id number] [place] [address] Mar, [facility] [place] [facility] [address] [id number] [place] [address] Mar, [facility] [place] [facility] [address] [id number] [place] [address] Mar, [facility] [place] [facility] [address] [id number] [place] [address] September, [facility] [place] [facility] [address] [id number] [place] [address] September, [facility] [place] [facility] [address] [id number] [place] [address] Jul, [facility] [place] [facility] [address] [id number] [place] [address] 10 Jun, 2010 [facility] [place] [facility] [address] [id number], [place] [address] Apr, [facility] [address] [facility] [id number] [address] Apr, [facility] [address] [facility] [id number], [place] [address] Apr, [facility] [id number], [place] [address] Mar, [facility] [address] [facility] [id number], [place] [address] Mar, [facility] [address] [facility] [id number], [place] [address] Mar, [facility] [address] [id number], [place] [address] Feb, [facility] [id number], [place] [address] Jan, [facility] [id number] [address] Apr, [facility] [id number] [address] Apr, [facility] [id number], [place] [address] Mar, [facility] [address] [id number] [address] [address] Mar, [facility] [address] [id number] [id number] Feb, [facility] [address] [id number] [address] [address] Jun, IMMUNIZATIONS No Known Immunizations SOCIAL HISTORY Never Assessed REASON FOR VISIT Lab (walk-in) PLAN OF CARE VITAL SIGNS MEDICATIONS No Known Medications RESULTS No Results PROCEDURES Procedure Date Ordered Result Body Site LAB NOT BILLED BY [facility] May 02, 2017 VENIPUNCT, ROUTINE* May 02, 2017 INSTRUCTIONS MEDICATIONS ADMINISTERED No Known Medications [...]
--- OUTSIDE RECORDS SUMMARY | 2018-02-27 15:06 | XMS REPORT ---
Author Author PRISCILA PITT [facility] Address [address] [place] [address] Care Team Providers Care Estimator Printing Name Role Phone PRISCILA PITT Unavailable PROBLEMS Type Condition ICD9-CM Code [id number] Code Onset Dates Condition Status SNOMED Code Problem Venous insufficiency I87.2 Active 34009531 Problem Back pain M54.9 Active 776629272 Problem GERD (gastroesophageal reflux disease) K21.9 Active 503497229 Problem Coronary artery disease I25.10 Active 50738453 Problem Hyperlipidemia E78.5 Active 09103292 Problem Hypertension I10 Active 31827044 ALLERGIES No Known Allergies SOCIAL HISTORY No smoking Hx information available PLAN OF CARE VITAL SIGNS MEDICATIONS Medication Instructions Dosage Frequency Start Date End Date Duration Status Lasix 40 mg Orally Once a day 1 tablet 24h May, 30 day(s) Active Klor-Con 10 10 MEQ Orally Once a day 1 tablet with food 24h May, 30 day(s) Active RESULTS No Results PROCEDURES No Known procedures IMMUNIZATIONS No Known Immunizations
--- OUTSIDE RECORDS SUMMARY | 2018-02-27 15:07 | XMS REPORT ---
Author Author PRISCILA PITT Organization [facility] Address [address] [place] [address] Care Team Providers Care Bunk Assembler Name Role Phone PRISCILA PITT Unavailable PROBLEMS Type Condition ICD9-CM Code [id number] Code Onset Dates Condition Status SNOMED Code Problem Venous insufficiency I87.2 Active 39688254 Problem Hypertension I10 Active 71106025 Problem Back pain M54.9 Active 139608404 Problem Coronary artery disease I25.10 Active 04423848 Problem GERD (gastroesophageal reflux disease) K21.9 Active 195054246 Problem Hyperlipidemia E78.5 Active 51753180 ALLERGIES No Information SOCIAL HISTORY Never Assessed PLAN OF CARE VITAL SIGNS MEDICATIONS Medication Instructions Dosage Frequency Start Date End Date Duration Status Hydrocodone-Acetaminophen 10-325 MG 1 tablet as needed 4h Jun, Active Tramadol HCl 50 MG Orally every [...]
--- OUTSIDE RECORDS SUMMARY | 2018-02-27 15:07 | XMS REPORT ---
Author Author PRISCILA PITT Organization [facility] Address [address] [place] [address] Care Team Providers [employer] Name Role Phone PRISCILA PITT Unavailable PROBLEMS Type Condition ICD9-CM Code LOP68-BC Code Onset Dates Condition Status SNOMED Code Problem Back pain M54.9 Active 242912550 Problem Coronary artery disease I25.10 Active 21006705 Problem Peripheral vascular disease I73.9 Active 925865830 Problem Cigarette nicotine dependence without complication F17.210 Active 38285717 Problem GERD (gastroesophageal reflux disease) K21.9 Active 346669723 Problem Hyperlipidemia E78.5 Active 97585906 Problem Venous insufficiency I87.2 Active 76653699 Problem Hypertension I10 Active 74562539 ALLERGIES No Information ENCOUNTERS Encounter Location Date Diagnosis [place] [id number] [place] [address] 18587- 5983 September, [facility] current use of opiate analgesic Z79.891 ; Medication monitoring encounter Z51.81 ; Back pain M54.9 ; Weakness R53.1 ; Cigarette nicotine dependence without complication F17.210 ; Coronary artery disease I25.10 and Peripheral vascular disease I73.9 [facility] [id number] [place] [address] 41378- 2498 September, Back pain M54.9 [facility] [id number] [place] [address] 32691- 5740 Aug, Back pain M54.9 [facility] [id number] [place] [address] 70751- 0198 Aug, [facility] [id number] [place] [address] 98729- 6791 Aug, Back pain M54.9 [facility] [address] [place] [address]- 0605 Jul, Back pain M54.9 [facility] [address] 21387- 1046 Jun, [facility] [address] 71577- 6669 Jun, Back pain M54.9 [facility] [address] 64751- 4847 May, Back pain M54.9 [facility] [address] 93552- 5479 May, Back pain M54.9 [facility] [address] 91485- 3749 May, Hypertension I10 ; Back pain M54.9 and Cigarette nicotine dependence without complication F17.210 [facility] [address] 18776- 7663 Apr, Back pain M54.9 [facility] [id number] [place] [address] 47850- 3372 Apr, Hypokalemia E87.6 [facility] [id number] [place] [address] 02794- 2988 Apr, Hypokalemia E87.6 [facility] [id number] [place] [address] 92651- 2548 Mar, Back pain M54.9 [facility] [id number] [place] [address] 63721- 6070 Mar, [facility] [address] 97746- 2544 Mar, Back pain M54.9 ; Coronary artery disease I25.10 and Acute nasopharyngitis J00 [facility] [id number] [place] [address] 17738- 1854 Mar, Back pain M54.9 [facility] [id number] [place] [address] 33431- 8566 05 Feb, 2017 Back pain M54.9 [facility] [id number] [place] [address] 16058- 8826 26 Jan, 2017 Anemia due to blood loss D50.0 and Hypokalemia E87.6 [facility] [id number] [place] [address] 25758- 3090 18 Jan, 2017 [facility] [id number] [place] [address] 28683- 1552 11 Jan, 2017 Hypokalemia E87.6 [facility] [id number] [place] [address] 55244- 0577 08 Jan, 2017 Back pain M54.9 [facility] [id number] [place] [address] 15194- 4066 08 Jan, 2017 [facility] [id number] [place] [address] 93897- 1267 14 Dec, 2016 Hypertension I10 and Back pain M54.9 [facility] [id number] [place] [address] 84588- 3278 29 Oct, 2016 Back pain M54.9 [facility] [id number] [place] [address] 99312- 5484 15 Oct, 2016 Back pain M54.9 [facility] [id number] [place] [address] 28610- 2366 07 Oct, 2016 Back pain M54.9 [facility] [id number] [place] [address] 55342- 1779 September, Back pain M54.9 [facility] [id number] [place] [address] 00304- 6815 Aug, Back pain M54.9 [facility] [id number] [place] [address] 55413- 0881 Aug, Epistaxis R04.0 [facility] [address], [place] [address]- 0776 Jul, [facility] [id number] [place] [address] 67808- 1193 Jul, Back pain M54.9 [facility] [id number] [place] [address] 59374- 6573 Jun, Back pain M54.9 [facility] [id number] [place] [address] 98987- 0552 Jun, Localized edema R60.0 [facility] [id number] [place] [address] 97056- 5913 Jun, [facility] [id number] [place] [address] 19792- 7182 Jun, Anemia due to blood loss D50.0 ; Venous insufficiency I87.2 ; Hypertension I10 and Plantar fasciitis M72.2 [facility] [id number] [place] [address] 24624- 8194 May, Back pain M54.9 [facility] [id number] [place] [address] 25624- 6641 May, [facility] [id number] [place] [address] 91070- 8131 May, medical terminologist use of drug Z79.899 ; Anemia due to blood loss D50.0 and Venous insufficiency I87.2 [facility] [address] [address]- 9537 May, Back pain M54.9 [facility] [id number] [place] [address] 04965- 8423 May, Anemia due to blood loss D50.0 [facility] [id number] [place] [address] 69482- 6973 May, Localized edema R60.0 [facility] [id number] [place] [address] 92701- 8643 May, Blood loss anemia D50.0 ; Localized edema R60.0 and Coronary artery disease I25.10 [facility] [id number] [place] [address] 68591- 6478 Apr, Blood loss anemia D50.0 [facility] [id number] [place] [address] 81732- 6241 Apr, Epistaxis R04.0 ; Anemia, unspecified type D64.9 and Hyponatremia E87.1 [facility] [id number] [place] [address] 19024- 4745 Apr, [facility] [id number] [place] [address] 63329- 7817 Apr, Back pain M54.9 [facility] [id number] [place] [address] 35593- 1673 Apr, Back pain M54.9 [facility] [id number] [place] [address] 92576- 9488 Mar, [facility] [id number] [place] [address] 93051- 1158 Mar, Back pain M54.9 [facility] [id number] [place] [address] 15955- 8244 Feb, [facility] [id number] [place] [address] 00141- 7453 Feb, [facility] [id number] [place] [address] 05477- 5092 Jan, [facility] [id number] [place] [address] 99418- 2014 Dec, [facility] [id number] [place] [address] 10208- 6393 Dec, [facility] [id number] [place] [address] 30270- 2615 Dec, Arthritis, 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 and Leg weakness, bilateral M62.81 [facility] [id number] [place] [address] 89587- 7221 Dec, [facility] [id number] [place] [address] 69776- 4711 Oct, Back pain M54.9 [facility] [address] 79647- 0578 Oct, Back pain M54.9 [facility] [address] 99430- 5972 September, Back pain M54.9 [facility] [id number] [place] [address] 77393- 2287 Aug, Back pain M54.9 [facility] [address] 69264- 6776 Aug, Back pain M54.9 [facility] [id number] [place] [address] 79402- 7696 Jul, [facility] [address] 55797- 1158 Jul, Back pain M54.9 [facility] [id number] [place] [address] 48873- 8893 16 Jun, 2015 [facility] [id number] [place] [address] 44387- 4857 Jun, Back pain M54.9 [facility] [id number] [place] [address] 84691- 1288 15 May, 2015 medical terminologist use of drug Z79.899 ; Back pain M54.9 ; Hyperlipidemia E78.5 ; Hypertension I10 and GERD (gastroesophageal reflux disease) K21.9 [facility] [id number] [place] [address] 04645- 4548 13 May, 2015 Arthritis M19.90 [place] [address] [address]- 2813 Apr, [facility] [id number] [place] [address] 91589- 9631 Apr, [facility] [address] [address]- 3652 Mar, [facility] [id number] [place] [address] 32654- 2699 Mar, [facility] [id number] [place] [address] 18255- 6734 Feb, Arthritis M19.90 ; Encounter for immunization Z23 ; Contusion of right hip S70.01XA and Coronary artery disease I25.10 [facility] [id number] [address]- 8219 Jan, [facility] [id number] [place] [address] 90476- 9412 Jan, [facility] [address] [address]- 9387 Dec, Acute bronchitis 466.0 and Unspecified arthropathy, site unspecified 716.90 [facility] [address] [address]- 2373 Dec, [facility] [address] [address]- 1706 Dec, [facility] [address] [address]- 9603 Nov, [facility] [address] [address]- 3030 Nov, [facility] [address] [address]- 9564 Nov, [facility] [address] [place] [address]- 9701 Oct, [facility] [address] [facility] [id number] [place] [address]- 2418 Oct, [facility] [address] [id number], [place] [address]- 4712 Oct, Unspecified arthropathy, site unspecified 716.90 [facility] [place] [facility] [address] [id number] [place] [address]- 2944 Oct, [facility] [place] [facility] [address] [id number], [place] [address]- 5930 September, [facility] [place] [facility] [address] [id number] [place] [address]- 9640 September, [facility] [place] [facility] [address] [id number] [place] [address]- 6914 Aug, [facility] [place] [facility] [address] [facility] [id number] [place] [address]- 9109 Aug, [facility] [place] [facility] [address] [facility] [id number], [place] [address]- 9327 Jul, [facility] [place] [facility] [address] [id number] [place] [address]- 3758 Jul, [facility] [place] [facility] [address] [facility] [id number], [place] [address]- 4390 Jul, [facility] [place] [facility] [address] [id number], [place] [address]- 9656 Jul, [facility] [place] [facility] [address] [id number], [place] [address]- 3017 Jul, [facility] [place] [facility] [address] [id number], [place] [address]- 0431 Jul, [facility] [place] [facility] [address] [id number], [place] [address]- 9599 Jun, [facility] [place] [facility] [address] [facility] [id number], [place] [address]- 0472 Jun, [facility] [place] [facility] [address] [id number] [place] [address]- 2459 09 Jun, 2014 [facility] [address] [id number] [place] [address]- 7453 Jun, [facility] [address] [id number] [place] [address]- 4999 May, [facility] [address] [id number] [place] [address]- 0382 May, [facility] [address] [id number] [place] [address]- 5652 May, [facility] [address] [id number] [place] [address]- 2769 May, [facility] [address] [id number] [place] [address]- 9582 May, [facility] [address] [id number] [place] [address]- 6644 May, [facility] [address] [id number] [place] [address]- 7335 May, [facility] [address] [id number] [place] [address]- 8050 May, [facility] [address] [id number] [place] [address]- 1050 May, [facility] [address] [id number] [place] [address]- 6308 May, [facility] [address] [id number] [place] [address]- 3071 May, [facility] [place] [facility] [address] [id number] [place] [address]- 0774 Apr, [facility] [place] [facility] [address] [id number] [place] [address]- 3516 Apr, [facility] [address] [id number] [place] [address]- 7638 Apr, [facility] [place] [facility] [address] [id number] [place] [address]- 6487 Apr, [facility] [place] [facility] [address] [id number] [place] [address]- 5145 Apr, [facility] [place] [facility] [address] [id number] [place] [address]- 2199 Mar, [facility] [place] [facility] [address] [id number] [place] [address]- 0069 Mar, [facility] [place] [facility] [address] [id number] [place] [address]- 1092 Feb, [facility] [place] [facility] [address] [id number] [place] [address]- 1924 Feb, [facility] [place] [facility] [address] [id number] [place] [address]- 8818 Feb, [facility] [place] [facility] [address] [id number] [place] [address]- 5916 Feb, [facility] [place] [facility] [address] [id number] [place] [address]- 4868 Jan, [facility] [place] [facility] [address] [id number] [place] [address]- 7492 Jan, [facility] [place] [facility] [address] [id number] [place] [address]- 1923 Dec, [facility] [place] [facility] [address] [id number] [place] [address]- 1007 Dec, [facility] [place] [facility] [address] [id number] [place] [address]- 1837 Nov, [facility] [place] [facility] [address] [id number] [place] [address]- 9337 Nov, [facility] [place] [facility] [address] [id number] [place] [address]- 9947 Oct, [facility] [place] [facility] [address] [id number], [place] [address]- 7032 Oct, [facility] [place] [facility] [address] [id number] [place] [address]- 8526 Oct, [facility] [place] [facility] [address] [id number] [place] [address]- 3438 Oct, [facility] [place] [facility] [address] [id number] [place] [address]- 7534 Aug, [facility] [place] [facility] [address] [id number] [place] [address]- 2688 Aug, [facility] [place] [facility] [address] [id number] [place] [address]- 1617 Aug, [facility] [place] [facility] [address] [id number] [place] [address]- 2325 Aug, [facility] [place] [facility] [address] [id number] [place] [address]- 1406 May, [facility] [place] [facility] [address] [id number] [place] [address]- 0406 May, [facility] [place] [facility] [address] [id number] [place] [address]- 1520 May, [facility] [place] [facility] [address] [id number] [place] [address]- 0803 May, [facility] [place] [facility] [address] [id number], [place] [address]- 6042 May, [facility] [place] [facility] [address] [id number], [place] [address]- 0375 May, [facility] [place] [facility] [address] [id number] [place] [address]- 1864 May, [facility] [place] [facility] [address] [id number] [place] [address]- 5758 Apr, [facility] [place] [facility] [address] [id number] [place] [address]- 6720 Apr, [facility] [place] [facility] [address] [id number] [place] [address]- 1507 12 Apr, 2013 [facility] [address] [id number] [place] [address]- 1709 Apr, [facility] [place] [facility] [address] [id number] [place] [address]- 2545 Apr, [facility] [address] [id number] [place] [address]- 7708 Apr, [facility] [place] [facility] [address] [id number] [place] [address]- 1645 Apr, [facility] [address] [id number] [place] [address]- 3141 Apr, [facility] [address] [id number] [place] [address]- 1946 Apr, [facility] [place] [facility] [address] [id number] [place] [address]- 5053 Apr, [facility] [address] [id number] [place] [address]- 1069 Mar, [facility] [place] [facility] [address] [id number] [place] [address]- 7701 Mar, [facility] [address] [id number] [place] [address]- 6737 Mar, [facility] [place] [facility] [address] [id number] [place] [address]- 4339 Mar, [facility] [place] [facility] [address] [id number] [place] [address]- 5710 Feb, [facility] [place] [facility] [address] [id number] [place] [address]- 7687 Feb, [facility] [place] [facility] [address] [id number] [place] [address]- 2546 Jan, [facility] [place] [facility] [address] [id number] [place] [address]- 4928 Jan, [facility] [address] [id number] [place] [address]- 8989 Jan, [facility] [place] [facility] [address] [id number] [place] [address]- 9317 Dec, [facility] [place] [facility] [address] [id number] [place] [address]- 3110 Dec, [facility] [place] [facility] [address] [id number] [place] [address]- 0400 Nov, [facility] [place] [facility] [address] [id number] [place] [address]- 6124 Oct, [facility] [place] [facility] [address] [id number] [place] [address]- 5012 Oct, [facility] [place] [facility] [address] [id number] [place] [address]- 4188 Oct, [facility] [place] [facility] [address] [id number] [place] [address]- 0347 September, [facility] [place] [facility] [address] [id number] [place] [address]- 8315 September, [facility] [place] [facility] [address] [id number] [place] [address]- 8288 Jun, [facility] [place] [facility] [address] [id number] [place] [address]- 7569 Jun, [facility] [place] [facility] [address] [id number] [place] [address]- 9053 Jun, [facility] [place] [facility] [address] [id number] [place] [address]- 9682 Jun, [facility] [place] [facility] [address] [id number] [place] [address]- 0585 May, [facility] [place] [facility] [address] [id number] [place] [address]- 3185 May, [facility] [place] [facility] [address] [id number] [place] [address]- 5164 May, [facility] [address] [id number] [place] [address]- 1909 May, [facility] [address] [id number] [place] 5454 Apr, [facility] [address] [id number] [place] [address]- 7311 Apr, [facility] [place] [facility] [address] [id number] [place] [address] Apr, [facility] [address] [id number] [place] [address] Apr, [facility] [address] [id number] [place] [address] Apr, [facility] [address] [id number] [place] [address] Apr, [facility] [address] [id number] [place] [address] Mar, [facility] [place] [facility] [address] [id number] [place] [address] Mar, [facility] [address] [facility] [id number] [place] [address] Mar, [facility] [place] [facility] [address] [id number] [place] [address] Mar, [facility] [place] [facility] [address] [id number] [place] [address] Feb, [facility] [place] [facility] [address] [id number] [place] [address] Feb, [facility] [place] [facility] [address] [id number] [place] [address] Feb, [facility] [place] [facility] [address] [id number] [place] [address] Feb, [facility] [place] [facility] [address] [id number] [place] [address] 10 Feb, 2012 [facility] [place] [facility] [address] [id number] [place] [address] 17 Jan, 2012 [facility] [place] [facility] [address] [id number] [place] [address] 13 Jan, 2012 [facility] [place] [facility] [address] [id number] [place] [address]- [address] 12 Jan, 2012 [facility] [place] [facility] [address] [id number] [place] [address] 12 Jan, 2012 [facility] [place] [facility] [address] [id number] [place] [address]- [address] 11 Jan, 2012 [facility] [place] [facility] [address] [id number] [place] [address]- [address] 14 Dec, 2011 [facility] [place] [facility] [address] [id number] [place] [address] 17 Nov, 2011 [facility] [place] [facility] [address] [id number] [place] [address] Nov, [facility] [place] [facility] [address] [id number] [place] [address] Nov, [facility] [place] [facility] [address] [id number] [place] [address] Nov, [facility] [place] [facility] [address] [id number] [place] [address] Nov, [facility] [place] [facility] [address] [id number] [place] [address] 14 Oct, 2011 [facility] [place] [facility] [address] [id number] [place] [address] 16 Sep, 2011 [facility] [place] [facility] [address] [id number] [place] [address] September, [facility] [place] [facility] [address] [id number] [place] [address] 13 Aug, 2011 [facility] [address] [id number] [place] [address] 12 Aug, 2011 [facility] [place] [facility] [address] [id number] [place] [address] 12 Aug, 2011 [facility] [place] [facility] [address] [id number] [place] [address] 11 Aug, 2011 [facility] [place] [facility] [address] [id number] [place] [address] 16 Jul, 2011 [facility] [place] [facility] [address] [id number] [place] [address] 09 Jul, 2011 [facility] [place] [facility] [address] [id number] [place] [address]- [address] 10 Jun, 2011 [facility] [address] [id number] [place] [address] 07 Jun, 2011 [facility] [place] [facility] [address] [id number] [place] [address] 06 Jun, 2011 [facility] [place] [facility] [address] [id number] [place] [address]- [address] 03 Jun, 2011 [facility] [place] [facility] [address] [facility] [id number] [place] [address] May, [facility] [place] [facility] [address] [id number] [place] [address] May, [facility] [place] [facility] [address] [id number] [place] [address] May, [facility] [place] [facility] [address] [id number] [place] [address] May, [facility] [place] [facility] [address] [id number] [place] [address]- [address] May, [facility] [place] [facility] [address] [facility] [id number] [place] [address] May, [facility] [place] [facility] [address] [id number] [place] [address] Apr, [facility] [place] [facility] [address] [id number] [place] [address]- [address] 24 Apr, 2011 [facility] [place] [facility] [address] [id number] [place] [address] Apr, [facility] [place] [facility] [address] [id number] [place] [address] Apr, [facility] [place] [facility] [address] [id number] [place] [address] Apr, [facility] [place] [facility] [address] [id number] [place] [address] Apr, [facility] [place] [facility] [address] [id number] [place] [id number] Apr, [facility] [place] [facility] [address] [id number] [place] [address] Apr, [facility] [place] [facility] [address] [id number] [place] [address] Mar, [facility] [place] [facility] [address] [id number] [place] [address] Mar, [facility] [place] [facility] [address] [id number] [place] [address] Mar, [facility] [place] [facility] [address] [id number] [place] [address] September, [facility] [place] [facility] [address] [id number] [place] [address] September, [facility] [place] [facility] [address] [id number] [place] [address] Jul, [facility] [place] [facility] [address] [id number] [place] [address] 10 Jun, 2010 [facility] [place] [facility] [address] [id number], [place] [address] Apr, [facility] [address] [id number] [address] Apr, [facility] [address] [place] [address] Apr, [facility] [address], [place] [address] Mar, [facility] [address] [facility] [id number], [place] [address] Mar, [facility] [address] [facility] [id number], [place] [address] Mar, [facility] [id number] [place] [address] Feb, [facility] [address], [place] [address] Jan, [facility] [address] [id number] Apr, [facility] [address] [address] Apr, [facility] [address], [place] [address] Mar, [facility] [address] [id number], [place] [address] Mar, [facility] [address] [id number] Feb, [facility] [address] [id number], [place] [address] Jun, IMMUNIZATIONS No Known Immunizations SOCIAL HISTORY Never Assessed REASON FOR VISIT Hydrocodone and Tramadol- 04/15 PLAN OF CARE VITAL SIGNS MEDICATIONS Medication Instructions Dosage Frequency Start Date End Date Duration Status Hydrocodone-Acetaminophen 10-325 MG Orally every 4 hrs 1 tablet 4h Apr, 28 days Active Tramadol HCl 50 mg [...]
--- OUTSIDE RECORDS SUMMARY | 2018-02-27 15:07 | XMS REPORT ---
Author Author PRISCILA PITT [facility] Address [address] [place] [address] Care Team Providers Care Agency Manager Name Role Phone PRISCILA PITT Unavailable PROBLEMS Type Condition ICD9-CM Code [id number] Code Onset Dates Condition Status SNOMED Code Problem Venous insufficiency I87.2 Active 67994390 Problem Back pain M54.9 Active 168238210 Problem GERD (gastroesophageal reflux disease) K21.9 Active 366672985 Problem Coronary artery disease I25.10 Active 08542563 Problem Hyperlipidemia E78.5 Active 62656623 Problem Hypertension I10 Active 70902937 ALLERGIES Substance Reaction Event Type Date Status Celebrex stomach upset Drug Allergy May, Active Zocor 20 Mg Tablet Unknown Non Drug Allergy May, Active Neurontin 300 Mg Capsule Unknown Non Drug Allergy May, Active SOCIAL HISTORY No smoking Hx information available PLAN OF CARE Activity Details Follow Up 1 Week Reason: VITAL SIGNS Height 68 in 2016-05-17 Weight 133.4 lbs 2016-05-17 Temperature 97.6 degrees Fahrenheit 2016-05-17 Heart Rate 80 bpm 2016-05-17 Respiratory Rate 20 2016-05-17 BMI 20.28 kg/m2 2016-05-17 Blood pressure systolic 158 mmHg 2016-05-17 Blood pressure diastolic 92 mmHg 2016-05-17 MEDICATIONS Medication Instructions Dosage Frequency Start Date End Date Duration Status Reglan 10 TAKE ONE TABLET BY MOUTH TWICE A DAY 45 Active Klor-Con 10 10 MEQ Orally Once a day 1 tablet with food 24h May, Jul, 30 day(s) Active Pravastatin Sodium 40 TAKE ONE TABLET BY MOUTH AT BEDTIME, AVOID GRAPEFRUIT OR GRAPEFRUIT JUICE 90 Active Aspir-Low 81 MG Orally Once a day 1 tablet 24h Active Hydrocodone-Acetaminophen 10-325 MG 1 tablet as needed 4h Apr, Active Lansoprazole 30 MG Orally 2 times a day 1 capsule 12h Active Flonase 50 MCG/DOSE Nasally Once a day 2 spray in each nostril 24h Active Tramadol HCl 50 MG Orally every 6 hrs 1 tablet as needed 6h Active Prevacid 30 TAKE ONE CAPSULE BY MOUTH TWICE A DAY 30 Active Cyclobenzaprine HCl 10 mg Orally hs 1 tablet Apr, Active Lisinopril 10 TAKE ONE TABLET BY MOUTH DAILY 90 Active Plavix 75 TAKE ONE TABLET BY MOUTH DAILY 30 Active Lasix 40 mg Orally Once a day 1 tablet 24h May, 30 day(s) Active B-12 1000 MCG Sublingual Once a day 1 tablet under the tongue and allow to dissolve 24h Active Iron 325 (65 Fe) MG Orally Once a day 1 tablet 24h Active RESULTS Name Result Date Reference Range CBC 2016-05-17 WBC 6.1 3.4-10.8 RBC 2.73 4.14-5.80 Hemoglobin 9.2 12.6-17.7 Hematocrit 28.5 37.5-51.0 MCV 104 79-97 MCH 33.7 26.6-33.0 MCHC 32.3 31.5-35.7 RDW 14.3 12.3-15.4 Platelets 417 150-379 Neutrophils 49 Lymphs 37 Monocytes 10 Eos 2 Basos 1 Immature Cells Neutrophils (Absolute) 3.1 1.4-7.0 Lymphs (Absolute) 2.3 0.7-3.1 Monocytes(Absolute) 0.6 0.1-0.9 Eos (Absolute) 0.2 0.0-0.4 Baso (Absolute) 0.0 0.0-0.2 Immature Granulocytes 1 Immature Grans (Abs) 0.0 0.0-0.1 NRBC Hematology Comments: BNP 2016-05-17 B-Type Natriuretic Peptide 109.0 0.0-100.0 PROCEDURES Procedure Date Ordered Related Diagnosis Body Site LAB [facility] May [facility], 2016 [facility] VISIT ESTABLISHED PATIENT May 17, 2016 Office Visit, Est Pt., Level 3 May 17, 2016 IMMUNIZATIONS No Known Immunizations
--- OUTSIDE RECORDS SUMMARY | 2018-02-27 15:08 | XMS REPORT ---
Author Author PRISCILA PITT [facility] Address [address] [place] [address] Care Team Providers Care Union Carpenter Name Role Phone PRISCILA PITT Unavailable PROBLEMS Type Condition ICD9-CM Code [id number] Code Onset Dates Condition Status SNOMED Code Problem Venous insufficiency I87.2 Active 05461566 Problem Back pain M54.9 Active 440137654 Problem GERD (gastroesophageal reflux disease) K21.9 Active 299804911 Problem Coronary artery disease I25.10 Active 74006787 Problem Hyperlipidemia E78.5 Active 30335588 Problem Hypertension I10 Active 61364007 ALLERGIES No Known Allergies SOCIAL HISTORY No smoking Hx information available PLAN OF CARE VITAL SIGNS MEDICATIONS No Known Medications RESULTS No Results PROCEDURES No Known procedures IMMUNIZATIONS No Known Immunizations
--- OUTSIDE RECORDS SUMMARY | 2018-02-27 15:08 | XMS REPORT ---
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 Active 29043711 Problem Peripheral vascular disease I73.9 Active 281185260 Problem Hypertension I10 Active 90111684 Problem GERD (gastroesophageal reflux disease) K21.9 Active 800751353 Problem Cigarette nicotine dependence without complication F17.210 Active 42686820 Problem Venous insufficiency I87.2 Active 13352293 ALLERGIES No Information ENCOUNTERS Encounter Location Date Diagnosis [place] [id number] [place] [address] 07692- 2279 12 Nov, 2017 [place] [id number] [place] [address] 08225- 8045 Oct, Back pain M54.9 [facility] [id number] [place] [address] 38793- 3622 13 Oct, 2017 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 [facility] [id number] [place] [address] 56768- 2559 September, care home current use of opiate analgesic Z79.891 ; Medication monitoring encounter Z51.81 ; Back pain M54.9 ; Weakness R53.1 ; Cigarette nicotine dependence without complication F17.210 ; Coronary artery disease I25.10 and Peripheral vascular disease I73.9 [facility] [id number] [place] [address] 50321- 1916 September, Back pain M54.9 [facility] [id number] [place] [address] 89075- 4416 Aug, Back pain M54.9 [facility] [id number] [place] [address] 08821 2546 Aug, [facility] [id number] [place] [address] 55895- 5476 Aug, Back pain M54.9 [facility] [id number] [place] [address] 58638- 8890 Jul, Back pain M54.9 [facility] [id number] [place] [address] 28715- 6866 Jun, [facility] [id number] [place] [address] 33508- 1037 Jun, Back pain M54.9 [facility] [id number] [place] [address] 08709- 6232 May, Back pain M54.9 [facility] [id number] [place] [address] 35778- 7536 May, Back pain M54.9 [facility] [id number] [place] [address] 31926- 9225 May, Hypertension I10 ; Back pain M54.9 and Cigarette nicotine dependence without complication F17.210 [facility] [id number] [place] [address] 83527- 0878 Apr, Back pain M54.9 [facility] [id number] [place] [address] 65807- 7156 Apr, Hypokalemia E87.6 [facility] [id number] [place] [address] 00274- 2546 14 Apr, 2017 Hypokalemia E87.6 [facility] [id number] [place] [address] 72503- 9904 Mar, Back pain M54.9 [facility] [id number] [place] [address] 84120- 5530 Mar, [facility] [id number] [place] [address] 72746- 3127 Mar, Back pain M54.9 ; Coronary artery disease I25.10 and Acute nasopharyngitis J00 [facility] [id number] [place] [address] 40933- 4823 Mar, Back pain M54.9 [facility] [id number] [place] [address] 31877- 1093 Feb, Back pain M54.9 [facility] [id number] [place] [address] 64010- 9234 26 Jan, 2017 Anemia due to blood loss D50.0 and Hypokalemia E87.6 [facility] [id number] [place] [address] 92392- 2513 18 Jan, 2017 [facility] [id number] [place] [address] 86409- 1511 11 Jan, 2017 Hypokalemia E87.6 [facility] [id number] [place] [address] 89122- 4103 08 Jan, 2017 Back pain M54.9 [facility] [id number] [place] [address] 86298- 7206 08 Jan, 2017 [facility] [id number] [place] [address] 61711- 9410 14 Dec, 2016 Hypertension I10 and Back pain M54.9 [facility] [id number] [place] [address] 95202- 2023 Oct, Back pain M54.9 [facility] [id number] [place] [address] 30925- 1470 Oct, Back pain M54.9 [facility] [address] [address]- 7716 07 Oct, 2016 Back pain M54.9 [facility] [id number] [place] [address] 75966- 0843 08 Sep, 2016 Back pain M54.9 [facility] [id number] [place] [address] 52974- 5915 Aug, Back pain M54.9 [facility] [id number] [place] [address] 84118- 8898 Aug, Epistaxis R04.0 [facility] [id number] [place] [address] 86640- 8866 15 Jul, 2016 [facility] [id number] [place] [address] 22705- 3351 14 Jul, 2016 Back pain M54.9 [facility] [id number] [place] [address] 17184- 9553 15 Jun, 2016 Back pain M54.9 [facility] [id number] [place] [address] 69559- 1984 Jun, Localized edema R60.0 [facility] [id number] [place] [address] 54914- 1918 Jun, [facility] [id number] [place] [address] 76399- 0275 06 Jun, 2016 Anemia due to blood loss D50.0 ; Venous insufficiency I87.2 ; Hypertension I10 and Plantar fasciitis M72.2 [facility] [address] [address]- 2014 May, Back pain M54.9 [facility] [address] [place] [address] 92891- 0528 May, [facility] [address] [place] [address] 32509- 1398 May, care home use of drug Z79.899 ; Anemia due to blood loss D50.0 and Venous insufficiency I87.2 [facility] [id number] [place] [address] 64267- 8229 May, Back pain M54.9 [facility] [id number] [place] [address] 09553- 5232 May, Anemia due to blood loss D50.0 [facility] [id number] [place] [address] 06897- 1824 May, Localized edema R60.0 [facility] [id number] [place] [address] 15744- 6094 May, Blood loss anemia D50.0 ; Localized edema R60.0 and Coronary artery disease I25.10 [facility] [id number] [place] [address] 79299- 6463 Apr, Blood loss anemia D50.0 [facility] [id number] [place] [address] 13287- 9637 Apr, Epistaxis R04.0 ; Anemia, unspecified type D64.9 and Hyponatremia E87.1 [facility] [id number] [place] [address] 51518- 9295 Apr, [facility] [id number] [place] [address] 15694- 1216 Apr, Back pain M54.9 [facility] [id number] [place] [address] 30662- 7391 Apr, Back pain M54.9 [facility] [id number] [place] [address] 26468- 0333 Mar, [facility] [id number] [place] [address] 25923- 3343 Mar, Back pain M54.9 [facility] [id number] [place] [address] 08822- 5245 Feb, [facility] [address] [place] [address]- 8265 Feb, [facility] [address] [facility] [id number] [place] [address] 31461- 1507 Jan, [facility] [address] [facility] [id number] [place] [address] 53204- 8841 Dec, [facility] [address] [facility] [id number] [place] [address] 50166- 6531 Dec, [facility] [address] [facility] [id number] [place] [address] 49707- 2035 Dec, Arthritis, 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 and Leg weakness, bilateral M62.81 [facility] [id number] [place] [address] 44025- 1482 Dec, [facility] [id number] [place] [address] 29155- 4474 Oct, Back pain M54.9 [facility] [id number] [place] [address] 56541- 6333 Oct, Back pain M54.9 [facility] [id number] [place] [address] 01906- 5665 September, Back pain M54.9 [facility] [address] [place] [address] 58208- 7148 Aug, Back pain M54.9 [facility] [address] [place] [address] 02231- 3998 Aug, Back pain M54.9 [facility] [address] [facility] [id number] [address]- 7706 Jul, [facility] [address] [facility] [id number] [place] [address] 16857- 7926 Jul, Back pain M54.9 [facility] [id number] [address]- 7226 Jun, [facility] [id number] [place] [address] 74594- 0398 03 Jun, 2015 Back pain M54.9 [place] [address] 65352- 8409 15 May, 2015 care home use of drug Z79.899 ; Back pain M54.9 ; Hyperlipidemia E78.5 ; Hypertension I10 and GERD (gastroesophageal reflux disease) K21.9 [place] [address] 30407- 4757 May, Arthritis M19.90 [place] [address] 62531- 4653 Apr, [place] [address] 69229- 3483 Apr, [place] [address] 20355- 6390 Mar, [place] [address] 14436- 9435 Mar, [place] [address] 80109- 5848 Feb, Arthritis M19.90 ; Encounter for immunization Z23 ; Contusion of right hip S70.01XA and Coronary artery disease I25.10 [place] [id number] [place] [address] 81089- 1001 Jan, [place] [id number] [place] [address] 60303- 3506 Jan, [facility] [id number] [place] [address] 66431- 6362 Dec, Acute bronchitis 466.0 and Unspecified arthropathy, site unspecified 716.90 [facility] [id number] [place] [address] 61846- 1386 Dec, [place] [address] 02353- 3595 Dec, [facility] [address] [id number] [place] [address]- 8372 Nov, [facility] [address] [id number] [place] [address]- 9511 Nov, [facility] [address] [id number] [place] [address]- 3402 Nov, [facility] [place] [facility] [address] [id number] [place] [address]- 9799 Oct, [facility] [address] [id number] [place] [address]- 3096 Oct, [facility] [address] [id number] [place] [address]- 4310 Oct, Unspecified arthropathy, site unspecified 716.90 [facility] [address] [facility] [id number] [place] [address]- 9303 Oct, [facility] [address] [facility] [id number] [place] [address]- 4053 September, [facility] [address] [facility] [id number] [place] [address]- 6678 September, [facility] [address] [facility] [id number] [place] [address]- 7157 Aug, [facility] [address] [facility] [id number] [place] [address]- 7756 Aug, [facility] [place] [facility] [address] [id number] [place] [address]- 2406 Jul, [facility] [place] [facility] [address] [id number] [place] [address]- 7555 Jul, [facility] [place] [facility] [address] [facility] [id number] [place] [address]- 1430 Jul, [facility] [place] [facility] [address] [facility] [id number] [place] [address]- 1826 Jul, [facility] [place] [facility] [address] [id number] [place] [address]- 2592 Jul, [facility] [place] [facility] [address] [id number] [place] [address]- 1902 Jul, [facility] [place] [facility] [address] [id number] [place] [address]- 6518 Jun, [facility] [place] [facility] [address] [id number] [place] [address]- 8785 Jun, [facility] [place] [facility] [address] [id number] [place] [address]- 9450 Jun, [facility] [place] [facility] [address] [id number] [place] [address]- 7957 Jun, [facility] [place] [facility] [address] [id number] [place] [address]- 2523 May, [facility] [place] [facility] [address] [id number] [place] [address]- 4074 May, [facility] [place] [facility] [address] [id number] [place] [address]- 5909 May, [facility] [place] [facility] [address] [id number] [place] [address]- 5142 May, [facility] [place] [facility] [address] [id number] [place] [address]- 9885 May, [facility] [place] [facility] [address] [id number] [place] [address]- 0219 May, [facility] [place] [facility] [address] [id number] [place] [address]- 7672 May, [facility] [place] [facility] [address] [id number] [place] [address]- 6095 May, [facility] [place] [facility] [address] [id number] [place] [address]- 3155 May, [facility] [place] [facility] [address] [id number] [place] [address]- 5726 May, [facility] [place] [facility] [address] [id number] [place] [address]- 6684 May, [facility] [place] [facility] [address] [id number] [place] [address]- 5226 Apr, [facility] [place] [facility] [address] [id number] [place] [address]- 7131 Apr, [facility] [place] [facility] [address] [id number] [place] [address]- 1067 Apr, [facility] [place] [facility] [address] [id number] [place] [address]- 9758 Apr, [facility] [place] [facility] [address] [id number] [place] [address]- 2788 Apr, [facility] [place] [facility] [address] [id number] [place] [address]- 5174 Mar, [facility] [place] [facility] [address] [id number] [place] [address]- 8332 Mar, [facility] [place] [facility] [address] [id number] [place] [address]- 8863 Feb, [facility] [place] [facility] [address] [id number] [place] [address]- 1346 Feb, [facility] [place] [facility] [address] [id number] [place] [address]- 5160 Feb, [facility] [place] [facility] [address] [id number] [place] [address]- 7093 Feb, [facility] [place] [facility] [address] [id number] [place] [address]- 5570 Jan, [facility] [place] [facility] [address] [id number] [place] [address]- 1253 Jan, [facility] [place] [facility] [address] [id number] [place] [address]- 5043 Dec, [facility] [place] [facility] [address] [id number] [place] [address]- 1571 Dec, [facility] [address] [id number] [place] [address]- 8040 Nov, [facility] [place] [facility] [address] [id number] [place] [address]- 3046 Nov, [facility] [place] [facility] [address] [id number] [place] [address]- 5372 Oct, [facility] [place] [facility] [address] [id number] [place] [address]- 2214 Oct, [facility] [place] [facility] [address] [id number] [place] [address]- 6355 Oct, [facility] [place] [facility] [address] [id number] [place] [address]- 5782 Oct, [facility] [place] [facility] [address] [id number] [place] [address]- 6137 Aug, [facility] [place] [facility] [address] [id number] [place] [address]- 4651 Aug, [facility] [place] [facility] [address] [id number] [place] [address]- 7119 Aug, [facility] [place] [facility] [address] [id number] [place] [address]- 5176 Aug, [facility] [place] [facility] [address] [id number] [place] [address]- 7703 May, [facility] [place] [facility] [address] [id number] [place] [address]- 9808 May, [facility] [place] [facility] [address] [id number] [place] [address]- 2601 May, [facility] [place] [facility] [address] [id number] [place] [address]- 7553 May, [facility] [place] [facility] [address] [id number] [place] [address]- 3403 May, [facility] [address] [id number] [place] [address]- 3893 May, [facility] [place] [facility] [address] [id number] [place] [address]- 7946 May, [facility] [place] [facility] [address] [id number] [place] [address]- 3157 Apr, [facility] [place] [facility] [address] [id number] [place] [address]- 8376 Apr, [facility] [address] [id number] [place] [address]- 8083 Apr, [facility] [place] [facility] [address] [id number] [place] [address]- 5776 Apr, [facility] [address] [id number] [place] [address]- 5974 Apr, [facility] [address] [id number] [place] [address]- 4740 Apr, [facility] [place] [facility] [address] [id number] [place] [address]- 8473 Apr, [facility] [place] [facility] [address] [id number] [place] [address]- 3476 Apr, [facility] [place] [facility] [address] [id number] [place] [address]- 4823 Apr, [facility] [place] [facility] [address] [id number] [place] [address]- 9027 Apr, [facility] [place] [facility] [address] [id number] [place] [address]- 3612 Mar, [facility] [place] [facility] [address] [id number] [place] [address]- 3506 Mar, [facility] [place] [facility] [address] [facility] [id number] [place] [address]- 4074 Mar, [facility] [place] [facility] [address] [id number] [place] [address]- 7777 Mar, [facility] [address] [id number] [place] [address]- 1118 Feb, [facility] [place] [facility] [address] [id number] [place] [address] Feb, [facility] [address] [id number] [place] [address] Jan, [facility] [place] [facility] [address] [id number] [place] [address] Jan, [facility] [address] [id number] [place] [address] Jan, [facility] [address] [id number] [place] [address] Dec, [facility] [address] [facility] [id number] [place] [address] Dec, [facility] [place] [facility] [address] [facility] [id number] [place] [address] Nov, [facility] [address] [facility] [id number] [place] [address] Oct, [facility] [place] [facility] [address] [facility] [id number] [place] [address]- [address] Oct, [facility] [place] [facility] [address] [id number] [place] [address] Oct, [facility] [place] [facility] [address] [facility] [id number] [place] [address] September, [facility] [place] [facility] [address] [id number] [place] [address] September, [facility] [place] [facility] [address] [facility] [id number] [place] [address] Jun, [facility] [place] [facility] [address] [facility] [id number] [place] [address] Jun, [facility] [place] [facility] [address] [id number] [place] [address] Jun, [facility] [place] [facility] [address] [id number] [place] [address] Jun, [facility] [place] [facility] [address] [id number] [place] [address] May, [facility] [place] [facility] [address] [id number] [place] [address]- [address] May, [facility] [place] [facility] [address] [id number] [place] [address] May, [facility] [place] [facility] [address] [id number] [place] [address] May, [facility] [address] [id number] [place] [address] Apr, [facility] [address] [id number] [place] [address] Apr, [facility] [address] [id number] [place] [address]- [address] Apr, [facility] [place] [facility] [address] [id number] [place] [address] Apr, [facility] [place] [facility] [address] [id number] [place] [address] Apr, [facility] [place] [facility] [address] [id number] [place] [address]- [address] Apr, [facility] [place] [facility] [address] [id number] [place] [address] Mar, [facility] [place] [facility] [address] [id number] [place] [address] 3960 Mar, [facility] [place] [facility] [address] [id number] [place] [address] Mar, [facility] [place] [facility] [address] [id number] [place] [address] Mar, [facility] [place] [facility] [address] [id number] [place] [address] Feb, [facility] [place] [facility] [address] [id number] [place] [address]- [address] 31 Feb, 2012 [facility] [place] [facility] [address] [id number] [place] [address]- [address] Feb, [facility] [place] [facility] [address] [id number] [place] [address]- [address] Feb, [facility] [place] [facility] [address] [id number] [place] [address]- [address] 10 Feb, 2012 [facility] [place] [facility] [address] [id number] [place] [address]- [address] 17 Jan, 2012 [facility] [place] [facility] [address] [id number] [place] [address]- [address] 13 Jan, 2012 [facility] [place] [facility] [address] [id number] [place] [address]- [address] 12 Jan, 2012 [facility] [place] [facility] [address] [id number] [place] [address]- [address] 12 Jan, 2012 [facility] [place] [facility] [address] [id number] [place] [address]- [address] 11 Jan, 2012 [facility] [place] [facility] [address] [id number] [place] [address]- [address] 14 Dec, 2011 [facility] [place] [facility] [address] [id number] [place] [address]- [address] 17 Nov, 2011 [facility] [place] [facility] [address] [id number] [place] [address]- [address] 13 Nov, 2011 [facility] [place] [facility] [address] [id number] [place] [address]- [address] 12 Nov, 2011 [facility] [place] [facility] [address] [id number] [place] [address] Nov, [facility] [place] [facility] [address] [id number] [place] [address] 09 Nov, 2011 [facility] [address] [id number] [place] [address]- [address] 14 Oct, 2011 [facility] [address] [id number] [place] [address]- [address] 16 Sep, 2011 [facility] [address] [id number] [place] [address]- [address] September, [facility] [address] [id number] [place] [address] 13 Aug, 2011 [facility] [address] [id number] [place] [address] Aug, [facility] [address] [id number] [place] [place] [address] Aug, [facility] [address] [id number] [place] [address] Aug, [facility] [address] [id number] [place] [address] 16 Jul, 2011 [facility] [address] [id number] [place] [address] Jul, [facility] [address] [id number] [place] [address] Jun, [facility] [address] [id number] [place] [address] 07 Jun, 2011 [facility] [address] [id number] [place] [address] Jun, [facility] [place] [facility] [address] [id number] [place] [address] Jun, [facility] [address] [id number] [place] [address] May, [facility] [place] [facility] [address] [id number] [place] [address] May, [facility] [place] [facility] [address] [id number] [place] [address] May, [facility] [place] [facility] [address] [id number] [place] [address] May, [facility] [place] [facility] [address] [id number] [place] [address] May, [facility] [place] [facility] [address] [id number] [place] [address] May, [facility] [place] [facility] [address] [id number] [place] [address] Apr, [facility] [place] [facility] [address] [id number] [place] [address] Apr, [facility] [place] [facility] [address] [id number] [place] [address] Apr, [facility] [place] [facility] [address] [id number] [place] [address] Apr, [facility] [place] [facility] [address] [id number] [place] [address] Apr, [facility] [place] [facility] [address] [id number] [place] [address] Apr, [facility] [place] [facility] [address] [id number] [place] [address] Apr, [facility] [place] [facility] [address] [id number] [place] [address] Apr, [facility] [place] [facility] [address] [id number] [place] [address] Mar, [facility] [place] [facility] [address] [id number] [place] [address] Mar, [facility] [place] [facility] [address] [id number] [place] [address] Mar, [facility] [place] [facility] [address] [id number] [place] [address]- [address] 13 Sep, 2010 [facility] [address] [id number] [place] [address] 10 Sep, 2010 [facility] [place] [facility] [address] [id number] [place] [address] Jul, [facility] [place] [facility] [address] [id number] [place] [address] Jun, [facility] [place] [facility] [address] [id number] [place] [address] Apr, [facility] [place] [facility] [address] [id number] [place] [address] Apr, [facility] [place] [facility] [address] [id number] [place] [address] Apr, [facility] [place] [facility] [address] [id number] [place] [address] Mar, [facility] [place] [facility] [address] [id number] [place] [address] 18 Mar, 2010 [facility] [place] [facility] [address] [id number] [place] [address] Mar, [facility] [place] [facility] [address] [facility] [id number] [place] [address] Feb, [facility] [place] [facility] [address] [id number] [place] [address] 14 Jan, 2010 [facility] [place] [facility] [address] [id number] [place] [address] Apr, [facility] [place] [facility] [address] [id number] [place] [address] Apr, [facility] [place] [facility] [address] [id number] [place] [address] Mar, [facility] [place] [facility] [address] [id number] [place] [address] Mar, [facility] [address] [facility] [id number] [place] [id number] Feb, [facility] [address] [facility] [id number] [id number] Jun, IMMUNIZATIONS No Known Immunizations SOCIAL HISTORY Never Assessed REASON FOR VISIT Hydrocodone and Tramadol- 06/10 PLAN OF CARE VITAL SIGNS MEDICATIONS Medication Instructions Dosage Frequency Start Date End Date Duration Status Tramadol HCl 50 mg Orally every 6 hrs 1 tablet 6h 28 days Active Hydrocodone-Acetaminophen 10-325 MG Orally every 4 hrs 1 tablet 4h May, 28 days Active RESULTS No Results PROCEDURES [...]
--- OUTSIDE RECORDS SUMMARY | 2018-02-27 15:09 | XMS REPORT ---
Author Author PRISCILA PITT Organization [facility] Address [address] [place] [address] Care Team Providers Care Junior Assistant Manager Name Role Phone PRISCILA PITT Unavailable PROBLEMS Type Condition ICD9-CM Code FVT95-WW Code Onset Dates Condition Status SNOMED Code Problem Coronary artery disease I25.10 Active 85655167 Problem Cigarette nicotine dependence without complication F17.210 Active 11805407 Problem Venous insufficiency I87.2 Active 71171492 Problem Hyperlipidemia E78.5 Active 15135991 Problem Back pain M54.9 Active 927729024 Problem Hypertension I10 Active 77809474 Problem GERD (gastroesophageal reflux disease) K21.9 Active 449024843 ALLERGIES No Information ENCOUNTERS Encounter Location Date Diagnosis [facility] [id number] [place] [address] 03767- 7004 September, [facility] [address] [address]- 0000 September, Back pain M54.9 [facility] [id number] [place] [address] 99297- 9049 Aug, Back pain M54.9 [facility] [id number] [place] [address] 17922- 7535 Aug, [facility] [id number] [place] [address] 98270- 6653 Aug, Back pain M54.9 [facility] [address] 43862- 9942 Jul, Back pain M54.9 [facility] [id number] [place] [address] 01239- 3009 Jun, [facility] [address] [place] [address]- 0224 Jun, Back pain M54.9 [facility] [address] 63131- 8526 May, Back pain M54.9 [facility] [address] 04476- 7935 May, Back pain M54.9 [facility] [address] 61636- 9518 May, Hypertension I10 ; Back pain M54.9 and Cigarette nicotine dependence without complication F17.210 [facility] [address] 50354- 7236 Apr, Back pain M54.9 [facility] [address] 43821- 2059 Apr, Hypokalemia E87.6 [facility] [address] 00432- 5874 Apr, Hypokalemia E87.6 [facility] [address] 87543- 7882 Mar, Back pain M54.9 [facility] [address] 02747- 2378 Mar, [facility] [address] 84160- 9634 Mar, Back pain M54.9 ; Coronary artery disease I25.10 and Acute nasopharyngitis J00 [facility] [id number] [place] [address] 80205- 2121 Mar, Back pain M54.9 [facility] [address] 18116- 3405 05 Feb, 2017 Back pain M54.9 [facility] [address] 78620- 2592 Jan, Anemia due to blood loss D50.0 and Hypokalemia E87.6 [facility] [id number] [place] [address] 50124- 0956 18 Jan, 2017 [facility] [id number] [place] [address] 53499 2546 11 Jan, 2017 Hypokalemia E87.6 [facility] [id number] [place] [address] 35215 2546 08 Jan, 2017 Back pain M54.9 [facility] [id number] [place] [address] 34977- 6026 08 Jan, 2017 [facility] [id number] [place] [address] 88093- 5845 14 Dec, 2016 Hypertension I10 and Back pain M54.9 [facility] [id number] [place] [address] 58549- 3728 29 Oct, 2016 Back pain M54.9 [facility] [id number] [place] [address] 56974- 0369 15 Oct, 2016 Back pain M54.9 [facility] [id number] [place] [address] 32449- 5053 07 Oct, 2016 Back pain M54.9 [facility] [id number] [place] [address] 57482- 0606 September, Back pain M54.9 [facility] [id number] [place] [address] 87140- 8787 Aug, Back pain M54.9 [facility] [id number] [place] [address] 03726- 0885 Aug, Epistaxis R04.0 [facility] [id number] [place] [address] 85767- 3846 15 Jul, 2016 [facility] [id number] [place] [address] 09871- 7494 14 Jul, 2016 Back pain M54.9 [facility] [id number] [place] [address] 87425- 7315 15 Jun, 2016 Back pain M54.9 [facility] [id number] [place] [address] 29874- 8756 Jun, Localized edema R60.0 [facility] [id number] [place] [address] 11370- 3175 Jun, [facility] [id number] [place] [address] 51981- 8150 Jun, Anemia due to blood loss D50.0 ; Venous insufficiency I87.2 ; Hypertension I10 and Plantar fasciitis M72.2 [facility] [id number] [place] [address] 35492- 8884 May, Back pain M54.9 [facility] [id number] [place] [address] 29139- 7291 May, [facility] [id number] [place] [address] 00111- 2676 May, 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 ; Anemia due to blood loss D50.0 and Venous insufficiency I87.2 [facility] [id number] [place] [address] 16223- 4634 May, Back pain M54.9 [facility] [id number] [place] [address] 45790- 1090 May, Anemia due to blood loss D50.0 [facility] [id number] [place] [address] 68944- 7135 May, Localized edema R60.0 [facility] [id number] [place] [address] 64560- 3620 May, Blood loss anemia D50.0 ; Localized edema R60.0 and Coronary artery disease I25.10 [facility] [id number] [place] [address] 71649- 5998 Apr, Blood loss anemia D50.0 [facility] [id number] [place] [address] 61449- 8811 Apr, Epistaxis R04.0 ; Anemia, unspecified type D64.9 and Hyponatremia E87.1 [facility] [id number] [place] [address] 84697- 6500 Apr, [facility] [id number] [place] [address] 96133- 1641 Apr, Back pain M54.9 [facility] [id number] [place] [address] 49403- 4434 Apr, Back pain M54.9 [facility] [id number] [place] [address] 72197- 1988 Mar, [facility] [id number] [place] [address] 51563- 3269 Mar, Back pain M54.9 [facility] [id number] [place] [address] 47406- 8694 Feb, [facility] [id number] [place] [address] 05019- 6819 Feb, [facility] [id number] [place] [address] 44447- 5049 Jan, [facility] [id number] [place] [address] 53239- 1308 Dec, [facility] [id number] [place] [address] 32650- 7269 Dec, [facility] [id number] [place] [address] 53696- 0403 Dec, Arthritis, 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 and Leg weakness, bilateral M62.81 [facility] [id number] [place] [address] 87758- 6106 Dec, [facility] [address] [place] [address]- 5917 Oct, Back pain M54.9 [facility] [id number] [place] [address] 07112- 4976 Oct, Back pain M54.9 [facility] [id number] [place] [address] 10977- 5206 September, Back pain M54.9 [facility] [id number] [place] [address] 45728- 2102 Aug, Back pain M54.9 [facility] [id number] [place] [address] 54585- 7162 Aug, Back pain M54.9 [facility] [id number] [place] [address] 15771- 0946 Jul, [facility] [id number] [place] [address] 56254- 1931 Jul, Back pain M54.9 [facility] [id number] [place] [address] 35994- 7620 Jun, [facility] [id number] [place] [address] 28167- 4091 Jun, Back pain M54.9 [facility] [id number] [place] [address] 60872- 0888 May, 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 ; Back pain M54.9 ; Hyperlipidemia E78.5 ; Hypertension I10 and GERD (gastroesophageal reflux disease) K21.9 [facility] [address] [address]- 9349 May, Arthritis M19.90 [facility] [id number] [place] [address] 87820- 5086 Apr, [facility] [address] [address]- 2375 Apr, [facility] [address] [address]- 0207 Mar, [facility] [address] [address]- 1276 Mar, [facility] [id number] [address]- 1729 Feb, Arthritis M19.90 ; Encounter for immunization Z23 ; Contusion of right hip S70.01XA and Coronary artery disease I25.10 [facility] [id number] [address]- 0185 Jan, [facility] [id number] [place] [address] 55330- 9710 Jan, [facility] [id number] [place] [address] 78976- 9012 Dec, Acute bronchitis 466.0 and Unspecified arthropathy, site unspecified 716.90 [facility] [id number] [address]- 8123 Dec, [facility] [address] [address]- 2911 Dec, [facility] [address] [address]- 4338 Nov, [facility] [address] [address]- 9889 Nov, [facility] [address] [address]- 7274 Nov, [facility] [address] [address]- 0487 Oct, [facility] [address] [address]- 3659 Oct, [facility] [address] [address]- 4188 Oct, Unspecified arthropathy, site unspecified 716.90 [facility] [place] [facility] [address] [id number] [place] [address]- 3347 Oct, [facility] [place] [facility] [address] [id number] [place] [address]- 6093 September, [facility] [place] [facility] [address] [id number] [place] [address]- 1686 September, [facility] [place] [facility] [address] [id number] [place] [address]- 9706 Aug, [facility] [place] [facility] [address] [id number] [place] [address]- 5901 Aug, [facility] [place] [facility] [address] [id number] [place] [address]- 4390 Jul, [facility] [place] [facility] [address] [id number] [place] [address]- 1952 Jul, [facility] [place] [facility] [address] [id number] [place] [address]- 7713 Jul, [facility] [place] [facility] [address] [id number] [place] [address]- 5705 Jul, [facility] [place] [facility] [address] [id number] [place] [address]- 8221 Jul, [facility] [place] [facility] [address] [id number] [place] [address]- 3610 Jul, [facility] [place] [facility] [address] [id number] [address]- 5762 Jun, [facility] [place] [facility] [address] [id number] [place] [address]- 1498 Jun, [facility] [place] [facility] [address] [id number] [place] [address]- 2556 Jun, [facility] [place] [facility] [address] [id number] [address]- 2546 Jun, [facility] [place] [facility] [address] [id number] [address]- 4998 May, [facility] [address] [id number] [place] [address]- 8038 May, [facility] [place] [facility] [address] [id number] [place] [address]- 4932 May, [facility] [place] [facility] [address] [id number] [place] [address]- 5284 May, [facility] [place] [facility] [address] [id number] [place] [address]- 6194 May, [facility] [place] [facility] [address] [id number] [place] [address]- 7913 May, [facility] [place] [facility] [address] [id number] [place] [address]- 1583 May, [facility] [place] [facility] [address] [id number] [place] [address]- 6302 May, [facility] [place] [facility] [address] [id number] [place] [address]- 5179 May, [facility] [place] [facility] [address] [id number] [place] [address]- 5965 May, [facility] [place] [facility] [address] [id number] [place] [address]- 6403 May, [facility] [place] [facility] [address] [id number] [place] [address]- 3165 Apr, [facility] [place] [facility] [address] [id number] [place] [address]- 5975 Apr, [facility] [place] [facility] [address] [id number] [place] [address]- 0917 Apr, [facility] [place] [facility] [address] [id number] [place] [address]- 0629 Apr, [facility] [place] [facility] [address] [id number] [place] [address]- 2983 Apr, [facility] [place] [facility] [address] [id number] [place] [address]- 9884 Mar, [facility] [place] [facility] [address] [id number] [place] [address]- 3815 Mar, [facility] [place] [facility] [address] [id number] [place] [address]- 4458 Feb, [facility] [place] [facility] [address] [id number] [place] [address]- 3674 Feb, [facility] [place] [facility] [address] [id number] [place]- 8349 Feb, [facility] [place] [facility] [address] [id number] [place] [address]- 1093 Feb, [facility] [place] [facility] [address] [id number] [place] [address]- 0960 Jan, [facility] [place] [facility] [address] [id number] [place] [address]- 8841 Jan, [facility] [place] [facility] [address] [id number] [place] [address]- 8643 Dec, [facility] [place] [facility] [address] [id number] [place] [address]- 9798 Dec, [facility] [place] [facility] [address] [id number] [place] [address]- 4176 Nov, [facility] [place] [facility] [address] [id number] [place] [address]- 5214 Nov, [facility] [place] [facility] [address] [id number] [place] [address]- 9396 Oct, [facility] [place] [facility] [address] [id number] [place] 7901 Oct, [facility] [place] [facility] [address] [id number] [place] [address]- 2148 Oct, [facility] [place] [facility] [address] [id number] [place] [address]- 8713 Oct, [facility] [place] [facility] [address] [id number] [place] [address]- 5186 Aug, [facility] [place] [facility] [address] [id number] [place] [address]- 3069 Aug, [facility] [place] [facility] [address] [id number] [place] [address]- 6101 Aug, [facility] [place] [facility] [address] [id number] [place] [address]- 4947 Aug, [facility] [place] [facility] [address] [id number] [place] [address]- 7760 May, [facility] [place] [facility] [address] [id number] [place] [address]- 9053 May, [facility] [place] [facility] [address] [id number] [place] [address]- 6312 May, [facility] [place] [facility] [address] [id number] [place] [address]- 4706 May, [facility] [place] [facility] [address] [id number] [place] [address]- 9519 May, [facility] [place] [facility] [address] [id number] [place] [address]- 7103 May, [facility] [place] [facility] [address] [id number] [address]- 0806 May, [facility] [place] [facility] [address] [id number] [address]- 1183 Apr, [facility] [place] [facility] [address] [id number] [place] [address]- 3562 Apr, [facility] [place] [facility] [address] [id number] [place] [address]- 8259 Apr, [facility] [place] [facility] [address] [id number] [place] [address]- 2798 Apr, [facility] [place] [facility] [address] [id number] [place] [address]- 5382 09 Apr, 2013 [facility] [address] [id number] [place] [address]- 0971 Apr, [facility] [address] [id number] [place] [address]- 8543 Apr, [facility] [address] [id number] [place] [address]- 5544 Apr, [facility] [place] [facility] [address] [id number] [place] [address]- 6582 Apr, [facility] [address] [id number] [place] [address]- 8768 Apr, [facility] [place] [facility] [address] [id number] [place] [address]- 7775 Mar, [facility] [address] [id number] [place] [address]- 7186 Mar, [facility] [address] [id number] [place] [address]- 1193 Mar, [facility] [address] [id number] [place] [address]- 0027 Mar, [facility] [address] [id number] [place] [address]- 8803 Feb, [facility] [address] [id number] [place] [address]- 4784 Feb, [facility] [place] [facility] [address] [id number] [place] [address]- 7547 Jan, [facility] [place] [facility] [address] [id number] [place] [address]- 1450 23 Jan, 2013 [facility] [place] [facility] [address] [id number] [place] 6510 Jan, [facility] [place] [facility] [address] [id number] [address]- 3934 Dec, [facility] [place] [facility] [address] [id number] [place] [address]- 4916 Dec, [facility] [place] [facility] [address] [id number] [place] [address]- 0544 Nov, [facility] [place] [facility] [address] [id number] [place] [address]- 1665 Oct, [facility] [place] [facility] [address] [id number] [place] [address]- 7244 Oct, [facility] [place] [facility] [address] [id number] [place] [address]- 3819 Oct, [facility] [place] [facility] [address] [id number] [place] [address]- 2904 September, [facility] [place] [facility] [address] [id number] [place] [address]- 3110 September, [facility] [place] [facility] [address] [id number] [place] [address]- 6348 Jun, [facility] [place] [facility] [address] [id number] [place] [address]- 7553 Jun, [facility] [place] [facility] [address] [id number] [place] [address]- 7974 Jun, [facility] [place] [facility] [address] [id number] [place] [address] Jun, [facility] [place] [facility] [address] [id number] [place] [address] May, [facility] [place] [facility] [address] [id number] [place] [address] May, [facility] [place] [facility] [address] [id number] [place] [address] May, [facility] [place] [facility] [address] [id number] [place] [address] May, [facility] [place] [facility] [address] [id number] [address] Apr, [facility] [place] [facility] [address] [id number] [place] [address] Apr, [facility] [place] [facility] [address] [id number] [place] [address] Apr, [facility] [place] [facility] [address] [id number] [place] [address] Apr, [facility] [place] [facility] [address] [id number] [place] [address] Apr, [facility] [place] [facility] [address] [id number] [place] [address] Apr, [facility] [place] [facility] [address] [id number] [place] [address] Mar, [facility] [place] [facility] [address] [id number] [address] Mar, [facility] [place] [facility] [address] [id number] [place] [address] Mar, [facility] [place] [facility] [address] [id number] [address] Mar, [facility] [place] [facility] [address] [id number] [place] [address] Feb, [facility] [place] [facility] [address] [id number] [place] [address] 31 Feb, 2012 [facility] [place] [facility] [address] [id number] [place] [address] Feb, [facility] [place] [facility] [address] [id number] [address] 11 Feb, 2012 [facility] [place] [facility] [address] [id number] [address] 10 Feb, 2012 [facility] [place] [facility] [address] [id number] [address] 17 Jan, 2012 [facility] [place] [facility] [address] [id number] [place] [address] 13 Jan, 2012 [facility] [place] [facility] [address] [id number] [place] [address] 12 Jan, 2012 [facility] [place] [facility] [address] [id number] [place] [address] 12 Jan, 2012 [facility] [place] [facility] [address] [id number] [place] [address] 11 Jan, 2012 [facility] [place] [facility] [address] [id number] [place] [address] 14 Dec, 2011 [facility] [place] [facility] [address] [id number] [place] [address] 17 Nov, 2011 [facility] [place] [facility] [address] [id number] [place] [address] 13 Nov, 2011 [facility] [place] [facility] [address] [id number] [place] [address] Nov, [facility] [place] [facility] [address] [id number] [place] [address] Nov, [facility] [place] [facility] [address] [id number] [place] [address] 09 Nov, 2011 [facility] [place] [facility] [address] [id number] [place] [address] 14 Oct, 2011 [facility] [place] [facility] [address] [id number] [place] [address] 16 Sep, 2011 [facility] [place] [facility] [address] [id number] [place] [address] 11 Sep, 2011 [facility] [place] [facility] [address] [id number] [place] [address] 13 Aug, 2011 [facility] [place] [facility] [address] [id number] [place] [address]- [address]69 12 Aug, 2011 [facility] [place] [facility] [address] [id number] [place] [address] Aug, [facility] [place] [facility] [address] [id number] [place] [address] 11 Aug, 2011 [facility] [place] [facility] [address] [id number] [place] [address]- [address]16 16 Jul, 2011 [facility] [place] [facility] [address] [id number] [place] [address] Jul, [facility] [place] [facility] [address] [id number] [place] [address]- [address] 10 Jun, 2011 [facility] [place] [facility] [address] [id number] [place] [address] Jun, [facility] [place] [facility] [address] [id number] [place] [address]- [address] Jun, [facility] [place] [facility] [address] [id number] [place] [address]- [address]369 Jun, [facility] [place] [facility] [address] [id number] [place] [address]- [address] May, [facility] [place] [facility] [address] [id number] [place] [address]- [address] May, [facility] [place] [facility] [address] [id number] [place] [address]- [address] May, [facility] [place] [facility] [address] [id number] [place] [address]- [address]653 May, [facility] [place] [facility] [address] [id number] [place] [address]- [address] May, [facility] [place] [facility] [address] [id number] [place] [address]- 4038 May, [facility] [place] [facility] [address] [id number] [place] [address]- [address] Apr, [facility] [place] [facility] [address] [id number] [place] [address] Apr, [facility] [place] [facility] [address] [id number] [place] [address] Apr, [facility] [address] [id number] [place] [address] Apr, [facility] [address] [id number] [place] [address] Apr, [facility] [address] [id number] [place] [address] Apr, [facility] [address] [id number] [place] [address] Apr, [facility] [address] [id number] [place] [address] Apr, [facility] [address] [id number] [place] [address] Mar, [facility] [address] [id number] [place] [address] Mar, [facility] [address] [id number] [place] [address] Mar, [facility] [address] [id number] [place] [address] September, [facility] [address] [id number] [place] [address] September, [facility] [address] [id number] [place] [address] Jul, [facility] [address] [id number] [place] [address] Jun, [facility] [address] [id number] [place] [address] Apr, [facility] [address] [id number] [place] [address] Apr, [facility] [address] [id number] [place] [address] Apr, [facility] [id number] [address] Mar, [facility] [id number] [address] Mar, [facility] [id number] [address] Mar, [facility] [id number] [address] Feb, [facility] [id number] [address] Jan, [facility] [id number] [address] Apr, [facility] [id number] [address] Apr, [facility] [id number] [address] Mar, [facility] [id number] [address] Mar, [facility] [id number] [address] Feb, [facility] [id number] [address] Jun, IMMUNIZATIONS No Known Immunizations SOCIAL HISTORY Never Assessed REASON FOR VISIT Hydrocodone and tramadol- 03/17 PLAN OF CARE VITAL SIGNS MEDICATIONS Medication Instructions Dosage Frequency Start Date End Date Duration Status Tramadol HCl 50 mg Orally every 6 hrs 1 tablet 6h 28 days Active Hydrocodone-Acetaminophen 10-325 MG Orally every 4 hrs 1 tablet 4h Mar, 28 days Active RESULTS No Results PROCEDURES [...]
--- OUTSIDE RECORDS SUMMARY | 2018-02-27 15:10 | XMS REPORT ---
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 Active 03370131 Problem Peripheral vascular disease I73.9 Active 699328376 Problem Hypertension I10 Active 11772322 Problem GERD (gastroesophageal reflux disease) K21.9 Active 780881555 Problem Cigarette nicotine dependence without complication F17.210 Active 85900418 Problem Venous insufficiency I87.2 Active 14795689 ALLERGIES No Information ENCOUNTERS Encounter Location Date Diagnosis [facility] [id number] [place] [address] 33230- 4186 Nov, [place] [id number] [place] [address] 86538- 9639 Oct, 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 [place] [id number] [place] [address] 71638- 1304 September, 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 ; Medication monitoring encounter Z51.81 ; Back pain M54.9 ; Weakness R53.1 ; Cigarette nicotine dependence without complication F17.210 ; Coronary artery disease I25.10 and Peripheral vascular disease I73.9 [place] [id number] [place] [address] 02895- 6803 September, Back pain M54.9 [place] [id number] [place] [address] 80327- 2582 Aug, Back pain M54.9 [facility] [id number] [place] [address] 19585- 6186 Aug, [facility] [id number] [place] [address] 11348- 3166 Aug, Back pain M54.9 [facility] [id number] [place] [address] 56729- 8716 Jul, Back pain M54.9 [facility] [id number] [place] [address] 47443 2546 Jun, [facility] [id number] [place] [address] 03854- 8022 Jun, Back pain M54.9 [facility] [id number] [place] [address] 87591- 9653 May, Back pain M54.9 [facility] [id number] [place] [address] 98825- 0529 May, Back pain M54.9 [facility] [id number] [place] [address] 80855- 7291 May, Hypertension I10 ; Back pain M54.9 and Cigarette nicotine dependence without complication F17.210 [facility] [id number] [place] [address] 67856- 4909 Apr, Back pain M54.9 [facility] [id number] [place] [address] 07035 2545 Apr, Hypokalemia E87.6 [facility] [id number] [place] [address] 67523- 4060 14 Apr, 2017 Hypokalemia E87.6 [facility] [id number] [place] [address] 32372- 5692 Mar, Back pain M54.9 [facility] [id number] [place] [address] 63955- 1938 Mar, [facility] [id number] [place] [address] 29772- 2636 Mar, Back pain M54.9 ; Coronary artery disease I25.10 and Acute nasopharyngitis J00 [facility] [address] [facility] [id number] [place] [address] 81951- 2291 Mar, Back pain M54.9 [facility] [id number] [place] [address] 06591- 0852 05 Feb, 2017 Back pain M54.9 [facility] [id number] [place] [address] 17930- 3414 26 Jan, 2017 Anemia due to blood loss D50.0 and Hypokalemia E87.6 [facility] [id number] [place] [address] 43571- 1034 18 Jan, 2017 [facility] [id number] [place] [address] 03421- 9949 11 Jan, 2017 Hypokalemia E87.6 [facility] [id number] [place] [address] 17380- 7453 08 Jan, 2017 Back pain M54.9 [facility] [id number] [place] [address] 58721- 0891 08 Jan, 2017 [facility] [id number] [place] [address] 44819- 6988 14 Dec, 2016 Hypertension I10 and Back pain M54.9 [facility] [address] [facility] [id number] [place] [address] 46766- 7438 29 Oct, 2016 Back pain M54.9 [facility] [id number] [place] [address] 75717- 3803 15 Oct, 2016 Back pain M54.9 [facility] [id number] [place] [address] 10987- 4126 07 Oct, 2016 Back pain M54.9 [facility] [id number] [place] [address]- 9917 08 Sep, 2016 Back pain M54.9 [facility] [id number] [place] [address] 09604- 9663 Aug, Back pain M54.9 [facility] [id number] [place] [address] 40399- 1337 Aug, Epistaxis R04.0 [facility] [address] 78646- 6370 15 Jul, 2016 [facility] [id number] [place] [address] 16438- 0760 14 Jul, 2016 Back pain M54.9 [facility] [id number] [place] [address] 76116- 9160 15 Jun, 2016 Back pain M54.9 [facility] [id number] [place] [address] 33921- 3712 09 Jun, 2016 Localized edema R60.0 [facility] [id number] [place] [address] 66226- 3411 Jun, [facility] [id number] [place] [address] 94719- 9226 Jun, Anemia due to blood loss D50.0 ; Venous insufficiency I87.2 ; Hypertension I10 and Plantar fasciitis M72.2 [facility] [id number] [place] [address] 45132- 8932 May, Back pain M54.9 [facility] [id number] [place] [address] 53086- 7908 May, [facility] [id number] [place] [address] 58309- 1155 May, superintendent terminal use of drug Z79.899 ; Anemia due to blood loss D50.0 and Venous insufficiency I87.2 [facility] [id number] [place] [address] 95788- 5856 May, Back pain M54.9 [facility] [id number] [place] [address] 43043- 9577 May, Anemia due to blood loss D50.0 [facility] [id number] [place] [address] 62897- 3227 May, Localized edema R60.0 [facility] [id number] [place] [address] 66682- 5860 May, Blood loss anemia D50.0 ; Localized edema R60.0 and Coronary artery disease I25.10 [facility] [id number] [place] [address] 51602- 6356 Apr, Blood loss anemia D50.0 [facility] [id number] [place] [address] 94505- 0829 Apr, Epistaxis R04.0 ; Anemia, unspecified type D64.9 and Hyponatremia E87.1 [facility] [id number] [place] [address] 25776- 2251 Apr, [facility] [id number] [place] [address] 45583- 2350 Apr, Back pain M54.9 [facility] [id number] [place] [address] 43352- 2186 Apr, Back pain M54.9 [facility] [id number] [place] [address] 96913- 2929 Mar, [facility] [id number] [place] [address] 00549- 8472 Mar, Back pain M54.9 [facility] [id number] [place] [address] 66792- 7520 Feb, [facility] [id number] [place] [address] 97688- 5122 Feb, [facility] [id number] [place] [address] 05745- 4429 Jan, [facility] [address] [facility] [id number], [place] [address]- 0346 Dec, [facility] [address] [facility] [id number] [place] [address] 84268- 5196 Dec, [facility] [address] [facility] [id number] [place] [address] 76407- 4656 Dec, Arthritis, 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 and Leg weakness, bilateral M62.81 [facility] [id number] [place] [address] 35587- 2791 Dec, [facility] [address] [facility] [id number] [place] [address] 71067- 0501 Oct, Back pain M54.9 [facility] [id number] [place] [address] 75771- 3106 Oct, Back pain M54.9 [facility] [address] [facility] [id number] [place] [address] 66061- 1601 September, Back pain M54.9 [facility] [address] [facility] [id number] [place] [address] 15710- 7241 Aug, Back pain M54.9 [facility] [address] [facility] [id number], [place] [address]- 7200 Aug, Back pain M54.9 [facility] [address] [facility] [id number] [place] [address] 65037- 1667 Jul, [facility] [address] [facility] [id number] [place] [address] 77658- 4423 Jul, Back pain M54.9 [facility] [address] [facility] [id number], [place] [address]- 8376 Jun, [facility] [address] [facility] [id number], [place] [address]- 7096 Jun, Back pain M54.9 [facility] [id number] [place] [address] 24773- 1725 15 May, 2015 superintendent terminal use of drug Z79.899 ; Back pain M54.9 ; Hyperlipidemia E78.5 ; Hypertension I10 and GERD (gastroesophageal reflux disease) K21.9 [facility] [id number] [place] [address] 55780- 5888 13 May, 2015 Arthritis M19.90 [facility] [address] 78581- 3227 16 Apr, 2015 [place] [address] 04403- 5803 Apr, [place] [address] 08641- 6115 Mar, [place] [address] 38405- 3219 Mar, [address] 62045- 0352 Feb, Encounter for immunization Z23 ; Arthritis M19.90 ; Contusion of right hip S70.01XA and Coronary artery disease I25.10 [place] [id number] [place] [address] 13993- 3306 Jan, [place] [id number] [place] [address] 47547- 7491 Jan, [place] [id number] [place] [address] 40588- 0386 Dec, Acute bronchitis 466.0 and Unspecified arthropathy, site unspecified 716.90 [place] [address] 07538- 0211 Dec, [facility] [id number] [place] [address] 70114- 6057 Dec, [facility] [id number] [place] [address] 20564- 8748 Nov, [place] [address] [id number] [place] [address]- 9086 Nov, [facility] [place] [facility] [address] [id number] [place] 7801 Nov, [facility] [place] [facility] [address] [id number] [place] [address]- 1771 Oct, [facility] [place] [facility] [address] [id number] [place] [address]- 0446 Oct, [facility] [place] [facility] [address] [id number] [place] [address]- 1124 Oct, Unspecified arthropathy, site unspecified 716.90 [facility] [place] [facility] [address] [id number] [place] [address]- 3255 Oct, [facility] [place] [facility] [address] [id number] [place] [address]- 5206 September, [facility] [place] [facility] [address] [id number] [place] [address]- 2264 September, [facility] [place] [facility] [address] [id number] [place] [address]- 3403 Aug, [facility] [place] [facility] [address] [id number] [place] [address]- 0235 Aug, [facility] [place] [facility] [address] [id number] [place] [address]- 6806 Jul, [facility] [place] [facility] [address] [id number] [place] [address]- 8223 Jul, [facility] [place] [facility] [address] [id number] [place] 0865 Jul, [facility] [place] [facility] [address] [id number] [place] [address]- 0415 Jul, [facility] [place] [facility] [address] [id number] [place] [address]- 3888 Jul, [facility] [place] [facility] [address] [id number] [place] [address]- 8909 Jul, [facility] [place] [facility] [address] [id number] [place] [address]- 7009 Jun, [facility] [place] [facility] [address] [id number] [place] [address]- 5256 Jun, [facility] [place] [facility] [address] [id number] [place] [address]- 8425 Jun, [facility] [place] [facility] [address] [id number] [place] [address]- 4822 Jun, [facility] [place] [facility] [address] [id number] [place] [address]- 0978 May, [facility] [place] [facility] [address] [id number] [place] [address]- 3123 May, [facility] [place] [facility] [address] [id number] [place] [address]- 5000 May, [facility] [place] [facility] [address] [id number] [place] [address]- 8245 May, [facility] [place] [facility] [address] [id number] [place] [address]- 2504 May, [facility] [place] [facility] [address] [id number] [place] [address]- 7136 May, [facility] [place] [facility] [address] [id number] [place] [address]- 6217 May, [facility] [place] [facility] [address] [id number], [place] [address]- 8779 May, [facility] [place] [facility] [address] [id number] [place] [address]- 4878 May, [facility] [place] [facility] [address] [id number] [place] [address]- 0506 May, [facility] [place] [facility] [address] [id number] [place] [address]- 2300 May, [facility] [place] [facility] [address] [id number] [place] [address]- 6325 Apr, [facility] [place] [facility] [address] [id number] [place] [address]- 8215 Apr, [facility] [place] [facility] [address] [id number] [place] [address]- 0430 Apr, [facility] [place] [facility] [address] [id number] [place] [address]- 8835 Apr, [facility] [place] [facility] [address] [id number] [place] 0245 Apr, [facility] [place] [facility] [address] [id number] [place] [address]- 9120 Mar, [facility] [place] [facility] [address] [id number] [place] [address]- 7142 Mar, [facility] [place] [facility] [address] [id number] [place] [address]- 3366 Feb, [facility] [place] [facility] [address] [id number] [place] [address]- 4471 Feb, [facility] [place] [facility] [address] [id number] [place] [address]- 2872 Feb, [facility] [place] [facility] [address] [id number] [place] [address]- 7116 Feb, [facility] [place] [facility] [address] [id number], [place] [address]- 7672 Jan, [facility] [place] [facility] [address] [id number] [place] [address]- 7276 Jan, [facility] [place] [facility] [address] [id number] [place] [address]- 3866 Dec, [facility] [place] [facility] [address] [id number] [place] [address]- 5900 Dec, [facility] [place] [facility] [address] [id number] [place] [address]- 2820 Nov, [facility] [place] [facility] [address] [id number] [place] [address]- 0432 Nov, [facility] [place] [facility] [address] [id number] [place] [address]- 7448 Oct, [facility] [place] [facility] [address] [id number] [place] [address]- 5332 Oct, [facility] [place] [facility] [address] [id number] [place] [address]- 5982 Oct, [facility] [place] [facility] [address] [id number] [place] [address]- 0744 Oct, [facility] [place] [facility] [address] [id number] [place] [address]- 2785 Aug, [facility] [place] [facility] [address] [id number] [place] [address]- 6033 Aug, [facility] [place] [facility] [address] [id number] [place] [address]- 2451 Aug, [facility] [place] [facility] [address] [id number] [place] [address]- 2268 Aug, [facility] [place] [facility] [address] [id number] [place] [address]- 8643 May, [facility] [place] [facility] [address] [id number] [place] [address]- 4576 May, [facility] [place] [facility] [address] [id number], [place] [address]- 5672 May, [facility] [place] [facility] [address] [id number] [place] [address]- 0283 May, [facility] [place] [facility] [address] [id number] [place] [address]- 5380 May, [facility] [place] [facility] [address] [id number] [place] [address]- 5491 May, [facility] [place] [facility] [address] [id number] [place] [address]- 8209 May, [facility] [address] [id number] [place] [address]- 0214 Apr, [facility] [place] [facility] [address] [id number] [place] [address]- 6093 Apr, [facility] [place] [facility] [address] [id number] [place] [address]- 4929 Apr, [facility] [place] [facility] [address] [id number] [place] [address]- 6283 Apr, [facility] [place] [facility] [address] [id number] [place] [address]- 1249 Apr, [facility] [place] [facility] [address] [id number] [place] [address]- 5266 Apr, [facility] [place] [facility] [address] [id number] [place] [address]- 7468 Apr, [facility] [address] [id number] [place] 2900 Apr, [facility] [place] [facility] [address] [id number] [place] [address] Apr, [facility] [place] [facility] [address] [id number] [place] [address] Apr, [facility] [place] [facility] [address] [id number] [place] [address] Mar, [facility] [place] [facility] [address] [id number] [place] [address] 27 Mar, 2013 [facility] [place] [facility] [address] [id number] [place] [address] 14 Mar, 2013 [facility] [place] [facility] [address] [id number] [place] [address] 14 Mar, 2013 [facility] [place] [facility] [address] [id number] [place] [address] Feb, [facility] [place] [facility] [address] [id number] [place] [address] Feb, [facility] [place] [facility] [address] [id number] [place] [address] Jan, [facility] [place] [facility] [address] [id number] [place] [address] Jan, [facility] [place] [facility] [address] [id number] [place] [address] Jan, [facility] [place] [facility] [address] [id number] [place] [address] Dec, [facility] [place] [facility] [address] [id number] [place] [address] Dec, [facility] [place] [facility] [address] [id number] [place] [address] Nov, [facility] [place] [facility] [address] [id number], [place] [address] Oct, [facility] [place] [facility] [address] [id number] [place] [address] Oct, [facility] [place] [facility] [address] [id number] [place] [address] Oct, [facility] [place] [facility] [address] [id number], [place] [address] September, [facility] [place] [facility] [address] [id number], [place] [address] September, [facility] [place] [facility] [address] [id number] [place] [address] Jun, [facility] [place] [facility] [address] [id number] [place] [address] Jun, [facility] [place] [facility] [address] [id number] [place] [address] Jun, [facility] [place] [facility] [address] [id number] [place] [address] 07 Jun, 2012 [facility] [address] [id number] [place] [address] May, [facility] [address] [id number] [place] [address] May, [facility] [address] [id number] [place] [address] May, [facility] [address] [id number] [place] [address] May, [facility] [address] [id number] [place] [address] Apr, [facility] [address] [id number] [place] [address] Apr, [facility] [address] [id number] [place] [address] Apr, [facility] [address] [id number] [place] [address] Apr, [facility] [address] [id number] [place] [address] Apr, [facility] [address] [id number] [place] [address] Apr, [facility] [place] [facility] [address] [id number] [place] [address] Mar, [facility] [address] [id number] [place] [address] Mar, [facility] [place] [facility] [address] [id number] [place] [address] Mar, [facility] [place] [facility] [address] [id number] [place] [address] Mar, [facility] [place] [facility] [address] [id number] [place] [address] 164[address] Feb, [facility] [place] [facility] [address] [id number] [place] [address] 31 Feb, 2012 [facility] [place] [facility] [address] [id number] [place] [address] Feb, [facility] [place] [facility] [address] [id number] [place] [address] 8064 Feb, [facility] [place] [facility] [address] [id number] [place] [address] 10 Feb, 2012 [facility] [place] [facility] [address] [id number] [place] [address] 17 Jan, 2012 [facility] [place] [facility] [address] [id number] [place] [address] 13 Jan, 2012 [facility] [place] [facility] [address] [id number] [place] [address]- [address] 12 Jan, 2012 [facility] [place] [facility] [address] [id number] [place] [address] Jan, [facility] [place] [facility] [address] [id number] [place] [address] Jan, [facility] [place] [facility] [address] [id number] [place] [address] 14 Dec, 2011 [facility] [place] [facility] [address] [id number] [place] [address] 39[address] Nov, [facility] [place] [facility] [address] [id number] [place] [address] Nov, [facility] [place] [facility] [address] [id number] [place] [address]388 Nov, [facility] [place] [facility] [address] [id number] [place] [address]661 Nov, [facility] [place] [facility] [address] [id number] [place] [address] 3073 Nov, [facility] [place] [facility] [address] [id number] [place] [address] 7731 14 Oct, 2011 [facility] [address] [id number] [place] [address] 16 Sep, 2011 [facility] [place] [facility] [address] [id number] [place] [address] September, [facility] [address] [id number] [place] [address] Aug, [facility] [place] [facility] [address] [id number] [place] [address]- [address] Aug, [facility] [place] [facility] [address] [id number] [place] [address] 36[address] Aug, [facility] [place] [facility] [address] [id number] [place] [address] Aug, [facility] [address] [id number] [place] [address] 16 Jul, 2011 [facility] [place] [facility] [address] [id number] [place] [address] Jul, [facility] [place] [facility] [address] [id number] [place] [address] 10 Jun, 2011 [facility] [place] [facility] [address] [id number] [place] [address] 07 Jun, 2011 [facility] [place] [facility] [address] [id number] [place] [address] 06 Jun, 2011 [facility] [place] [facility] [address] [id number] [place] [address] Jun, [facility] [place] [facility] [address] [id number] [place] [address] May, [facility] [place] [facility] [address] [id number] [place] [address] May, [facility] [place] [facility] [address] [id number] [place] [address] May, [facility] [place] [facility] [address] [id number] [place] [address] May, [facility] [address] [id number] [place] [address] May, [facility] [address] [id number] [place] [address] May, [facility] [address] [id number] [place] [address] Apr, [facility] [address] [id number] [place] [address] Apr, [facility] [address] [id number] [place] [address] Apr, [facility] [address] [id number] [place] [address] Apr, [facility] [address] [id number] [place] [address] Apr, [facility] [address] [id number] [place] [address] Apr, [facility] [address] [id number] [place] [address] Apr, [facility] [address] [id number] [place] [address] Apr, [facility] [address] [id number] [place] [address] Mar, [facility] [address] [id number] [place] [address] Mar, [facility] [place] [facility] [address] [id number] [place] [address] Mar, [facility] [address] [id number] [place] [address] September, [facility] [address] [id number], [place] [address] September, [facility] [address] [id number] [place] [address] Jul, [facility] [place] [facility] [address] [id number] [place] [address] Jun, [facility] [place] [facility] [address] [id number] [place] [address] Apr, [facility] [place] [facility] [address] [id number] [place] [address] Apr, [facility] [place] [facility] [address] [id number] [place] [address] Apr, [facility] [place] [facility] [address] [id number] [place] [address] Mar, [facility] [place] [facility] [address] [id number] [place] [address] Mar, [facility] [place] [facility] [address] [id number] [place] [address] Mar, [facility] [place] [facility] [address] [id number] [place] [address] Feb, [facility] [place] [facility] [address] [id number] [place] [address] 14 Jan, 2010 [facility] [place] [facility] [address] [id number], [place] [address] Apr, [facility] [place] [facility] [address] [id number], [place] [address] Apr, [facility] [place] [facility] [address] [id number], [place] [address] Mar, [facility] [place] [facility] [address] [id number], [place] [address] Mar, [facility] [place] [facility] [address] [id number] [place] [address] Feb, [facility] [place] [facility] [address] [facility] [id number] [place] [address] Jun, IMMUNIZATIONS No Known Immunizations SOCIAL HISTORY Never Assessed REASON FOR VISIT Hydrocodone and tramdol 05/13 PLAN OF CARE VITAL SIGNS MEDICATIONS Medication Instructions Dosage Frequency Start Date End Date Duration Status Tramadol HCl 50 mg Orally every 6 hrs 1 tablet 6h 28 days Active Hydrocodone-Acetaminophen 10-325 MG Orally every 4 hrs 1 tablet 4h Apr, 28 days Active RESULTS No Results PROCEDURES [...]
--- OUTSIDE RECORDS SUMMARY | 2018-02-27 15:10 | XMS REPORT ---
Author Author PRISCILA PITT [facility] Address [address] [place] [address] Care Team Providers Care Knotter Name Role Phone PRISCILA PITT Unavailable PROBLEMS Type Condition ICD9-CM Code [id number] Code Onset Dates Condition Status SNOMED Code Problem Venous insufficiency I87.2 Active 69006059 Problem Hypertension I10 Active 27542169 Problem Back pain M54.9 Active 482230047 Problem Coronary artery disease I25.10 Active 68153932 Problem GERD (gastroesophageal reflux disease) K21.9 Active 053448748 Problem Hyperlipidemia E78.5 Active 85317193 ALLERGIES No Information SOCIAL HISTORY Never Assessed [...]
--- OUTSIDE RECORDS SUMMARY | 2018-02-27 15:10 | XMS REPORT ---
Author Author PRISCILA PITT [facility] Address [address] [place] [address] Care Team Providers Care Metal Tester Name Role Phone PRISCILA PITT Unavailable PROBLEMS Type Condition ICD9-CM Code [id number] Code Onset Dates Condition Status SNOMED Code Problem Venous insufficiency I87.2 Active 84870845 Problem Hypertension I10 Active 91948756 Problem Back pain M54.9 Active 047236266 Problem Coronary artery disease I25.10 Active 03807631 Problem GERD (gastroesophageal reflux disease) K21.9 Active 747326854 Problem Hyperlipidemia E78.5 Active 59790788 ALLERGIES No Known Allergies SOCIAL HISTORY No smoking Hx information available PLAN OF CARE VITAL SIGNS MEDICATIONS No Known Medications RESULTS No Results PROCEDURES No Known procedures IMMUNIZATIONS No Known Immunizations
--- OUTSIDE RECORDS SUMMARY | 2018-02-27 15:10 | XMS REPORT ---
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 Name Role Phone PB BRADFORD Unavailable PROBLEMS Type Condition ICD9-CM Code [id number] Code Onset Dates Condition Status SNOMED Code Problem Venous insufficiency I87.2 Active 49338390 Problem Hypertension I10 Active 75271586 Problem Back pain M54.9 Active 921608360 Problem Coronary artery disease I25.10 Active 21470891 Problem GERD (gastroesophageal reflux disease) K21.9 Active 177003017 Problem Hyperlipidemia E78.5 Active 98928510 ALLERGIES No Known Allergies SOCIAL HISTORY No smoking Hx information available PLAN OF CARE VITAL SIGNS MEDICATIONS Medication Instructions Dosage Frequency Start Date End Date Duration Status Tramadol HCl 50 MG Orally every 6 hrs 1 tablet as needed 6h Active Hydrocodone-Acetaminophen 10-325 MG 1 tablet as needed 4h May, Active RESULTS No Results PROCEDURES No Known procedures IMMUNIZATIONS No Known Immunizations
[2018-02-27 15:13] LABS: PROTHROMBIN TIME PATIENT 12.9 SEC (12.2-14.7)
--- OUTSIDE RECORDS SUMMARY | 2018-02-27 15:14 | XMS REPORT ---
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 Warehouse Processor Name Role Phone PRISCILA PITT Unavailable PROBLEMS Type Condition ICD9-CM Code FIN78-IW Code Onset Dates Condition Status SNOMED Code Problem Coronary artery disease I25.10 Active 97076633 Problem Cigarette nicotine dependence without complication F17.210 Active 99584331 Problem Venous insufficiency I87.2 Active 15815930 Problem Hyperlipidemia E78.5 Active 12428697 Problem Back pain M54.9 Active 004937823 Problem Hypertension I10 Active 54341012 Problem GERD (gastroesophageal reflux disease) K21.9 Active 580252511 ALLERGIES No Information ENCOUNTERS Encounter Location Date Diagnosis [facility] [address] [address] September, [facility] [address] 9[address]- [address]357 Aug, Back pain M54.9 [facility] [id number] [place] [address] 58166- 0981 Aug, [facility] [id number] [place] [address] 11256- 1193 Aug, Back pain M54.9 [facility] [id number] [place] [address] 05187- 1968 Jul, Back pain M54.9 [facility] [address] 26332- 4998 Jun, [facility] [id number] [place] [address] 47930- 7304 Jun, Back pain M54.9 [facility] [address] [place] [address] 8205 May, Back pain M54.9 [facility] [address] 8[address]86- 1498 May, Back pain M54.9 [facility] [address] 20881- 0183 May, Hypertension I10 ; Back pain M54.9 and Cigarette nicotine dependence without complication F17.210 [facility] [address] 26600- 9449 Apr, Back pain M54.9 [facility] [address] 41516- 6771 Apr, Hypokalemia E87.6 [place] [address] 87273- 9678 Apr, Hypokalemia E87.6 [facility] [address] 11243- 4007 Mar, Back pain M54.9 [facility] [address] 72223- 0248 Mar, [facility] [address] 24657- 4539 Mar, Back pain M54.9 ; Coronary artery disease I25.10 and Acute nasopharyngitis J00 [facility] [id number] [place] [address] 00030- 9912 Mar, Back pain M54.9 [facility] [address] 97698- 0209 Feb, Back pain M54.9 [facility] [address] 67715- 6462 Jan, Anemia due to blood loss D50.0 and Hypokalemia E87.6 [facility] [address] 10969- 3058 18 Jan, 2017 [facility] [id number] [place] [address] 60947- 9546 11 Jan, 2017 Hypokalemia E87.6 [facility] [id number] [place] [address] 57266 2546 08 Jan, 2017 Back pain M54.9 [facility] [id number] [place] [address] 87131 2546 08 Jan, 2017 [facility] [id number] [place] [address] 23129- 1341 14 Dec, 2016 Hypertension I10 and Back pain M54.9 [facility] [id number] [place] [address] 40474- 8724 29 Oct, 2016 Back pain M54.9 [facility] [id number] [place] [address] 66001- 9598 15 Oct, 2016 Back pain M54.9 [facility] [id number] [place] [address] 96180- 7679 07 Oct, 2016 Back pain M54.9 [facility] [id number] [place] [address] 87332- 5185 08 Sep, 2016 Back pain M54.9 [facility] [id number] [place] [address] 83385- 0211 12 Aug, 2016 Back pain M54.9 [facility] [id number] [place] [address] 73186- 8888 11 Aug, 2016 Epistaxis R04.0 [facility] [id number] [place] [address] 73335- 1936 15 Jul, 2016 [facility] [id number] [place] [address] 73227- 0764 14 Jul, 2016 Back pain M54.9 [facility] [address] [place] [address] 76740- 6656 15 Jun, 2016 Back pain M54.9 [facility] [address] [address] 3169 Jun, Localized edema R60.0 [facility] [id number] [place] [address] 67636- 2438 Jun, [facility] [id number] [place] [address] 74867- 1460 Jun, Anemia due to blood loss D50.0 ; Venous insufficiency I87.2 ; Hypertension I10 and Plantar fasciitis M72.2 [facility] [id number] [place] [address] 72622- 3474 May, Back pain M54.9 [facility] [id number] [place] [address] 79780- 3705 May, [facility] [id number] [place] [address] 67022- 5629 May, 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 ; Anemia due to blood loss D50.0 and Venous insufficiency I87.2 [facility] [id number] [place] [address] 66719- 7002 May, Back pain M54.9 [facility] [id number] [place] [address] 67639- 7532 May, Anemia due to blood loss D50.0 [facility] [id number] [place] [address] 81387- 2813 May, Localized edema R60.0 [facility] [id number] [place] [address] 00344- 4486 May, Blood loss anemia D50.0 ; Localized edema R60.0 and Coronary artery disease I25.10 [facility] [address] [place] [address] 87209- 2260 Apr, Blood loss anemia D50.0 [facility] [id number] [place] [address] 70939- 3251 Apr, Epistaxis R04.0 ; Anemia, unspecified type D64.9 and Hyponatremia E87.1 [facility] [id number] [place] [address] 39257- 2161 Apr, [facility] [id number] [place] [address] 59757- 9440 Apr, Back pain M54.9 [facility] [address] 41336- 7929 Apr, Back pain M54.9 [facility] [id number] [place] [address] 07924- 7525 Mar, [facility] [id number] [place] [address] 17237- 9117 Mar, Back pain M54.9 [facility] [address] 27637- 6095 Feb, [facility] [id number] [place] [address] 46839- 8115 Feb, [facility] [address] 10063- 3504 Jan, [facility] [id number] [place] [address] 65172- 0180 Dec, [facility] [id number] [place] [address] 97328- 9087 Dec, [facility] [id number] [place] [address] 88263- 0818 Dec, Arthritis, 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 and Leg weakness, bilateral M62.81 [facility] [id number] [place] [address] 59691- 9716 Dec, [facility] [id number] [place] [address] 77602- 6391 Oct, Back pain M54.9 [facility] [address] [place] [address]- 8225 Oct, Back pain M54.9 [facility] [id number] [place] [address] 07152- 2668 September, Back pain M54.9 [facility] [id number] [place] [address] 48547- 1849 Aug, Back pain M54.9 [facility] [address] 64674- 6663 Aug, Back pain M54.9 [facility] [id number] [place] [address] 92708- 6327 Jul, [facility] [id number] [place] [address] 62512- 0472 Jul, Back pain M54.9 [facility] [id number] [place] [address] 85537- 3590 16 Jun, 2015 [facility] [id number] [place] [address] 48062- 5844 Jun, Back pain M54.9 [facility] [id number] [place] [address] 03856- 1021 15 May, 2015 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 ; Back pain M54.9 ; Hyperlipidemia E78.5 ; Hypertension I10 and GERD (gastroesophageal reflux disease) K21.9 [facility] [id number] [place] [address] 79487- 3039 May, Arthritis M19.90 [facility] [id number] [place] [address] 99706- 3537 Apr, [facility] [id number] [place] [address] 49891- 7905 Apr, [facility] [id number] [place] [address] 66570- 5729 Mar, [facility] [id number] [place] [address] [place] [address]- 0784 Mar, [facility] [id number] [address]- 3302 Feb, Encounter for immunization Z23 ; Arthritis M19.90 ; Contusion of right hip S70.01XA and Coronary artery disease I25.10 [facility] [address] [address]- 3383 Jan, [facility] [id number] [place] [address] 32635- 0452 Jan, [facility] [id number] [place] [address] 22893- 0244 Dec, Acute bronchitis 466.0 and Unspecified arthropathy, site unspecified 716.90 [facility] [id number] [address]- 3182 Dec, [facility] [id number] [place] [address] 39876- 7929 Dec, [facility] [address] [address]- 1950 Nov, [facility] [id number] [address]- 1873 Nov, [facility] [address] [address]- 8785 Nov, [facility] [address] [address]- 9047 Oct, [facility] [address] [address]- 2142 Oct, [facility] [id number] [address]- 1937 Oct, Unspecified arthropathy, site unspecified 716.90 [facility] [address] [address]- 3367 Oct, [facility] [id number] [place] [address]- 5260 September, [facility] [address] [id number] [place] [address]- 0391 September, [facility] [place] [facility] [address] [id number] [place] [address]- 7473 Aug, [facility] [place] [facility] [address] [id number] [place] [address]- 9832 Aug, [facility] [place] [facility] [address] [id number] [place] [address]- 1288 Jul, [facility] [place] [facility] [address] [id number] [place] [address]- 7308 Jul, [facility] [place] [facility] [address] [id number] [place] [address]- 6951 Jul, [facility] [place] [facility] [address] [id number] [place] [address]- 0438 Jul, [facility] [place] [facility] [address] [id number] [place] [address]- 4192 Jul, [facility] [place] [facility] [address] [id number] [place] [address]- 1873 Jul, [facility] [place] [facility] [address] [id number] [place] [address]- 6942 Jun, [facility] [place] [facility] [address] [id number] [place] [address]- 3416 Jun, [facility] [place] [facility] [address] [id number] [place] [address]- 0950 Jun, [facility] [place] [facility] [address] [id number] [place] [address]- 3606 Jun, [facility] [place] [facility] [address] [id number] [place] [address]- 3726 May, [facility] [place] [facility] [address] [id number] [place] [address]- 7166 May, [facility] [place] [facility] [address] [id number] [place] [address]- 8276 May, [facility] [place] [facility] [address] [id number] [place] [address]- 1086 May, [facility] [place] [facility] [address] [facility] [id number] [place] [address]- 5659 May, [facility] [place] [facility] [address] [id number] [place] [address]- 6467 May, [facility] [place] [facility] [address] [id number] [place] [address]- 8601 May, [facility] [place] [facility] [address] [id number] [place] [address]- 4410 May, [facility] [place] [facility] [address] [id number] [place] [address]- 3607 May, [facility] [place] [facility] [address] [id number] [address]- 9888 May, [facility] [place] [facility] [address] [id number] [place] [address]- 8867 May, [facility] [place] [facility] [address] [id number] [place] [address]- 2292 Apr, [facility] [place] [facility] [address] [id number], [place] [address]- 4531 Apr, [facility] [place] [facility] [address] [id number], [place] [address]- 7799 Apr, [facility] [place] [facility] [address] [id number] [place] [address]- 6291 Apr, [facility] [place] [facility] [address] [id number], [place] [address]- 6346 Apr, [facility] [place] [facility] [address] [id number] [place] [address]- 9054 Mar, [facility] [place] [facility] [address] [id number] [place] [address]- 3049 Mar, [facility] [place] [facility] [address] [id number] [place] [address]- 5827 Feb, [facility] [place] [facility] [address] [id number] [place] [address]- 5777 Feb, [facility] [place] [facility] [address] [id number] [place] 0116 Feb, [facility] [place] [facility] [address] [id number] [place] [address]- 9868 Feb, [facility] [place] [facility] [address] [id number] [place] [address]- 9821 Jan, [facility] [place] [facility] [address] [id number] [place] [address]- 5968 Jan, [facility] [place] [facility] [address] [id number] [place] [address]- 7933 Dec, [facility] [place] [facility] [address] [id number] [place] [address]- 0190 Dec, [facility] [place] [facility] [address] [id number] [place] [address]- 5189 Nov, [facility] [place] [facility] [address] [id number] [place] [address]- 7951 Nov, [facility] [place] [facility] [address] [id number] [place] [address]- 3966 Oct, [facility] [place] [facility] [address] [id number] [place] [address]- 3690 Oct, [facility] [place] [facility] [address] [id number] [place] [address]- 2858 Oct, [facility] [place] [facility] [address] [id number] [place] [address]- 6201 Oct, [facility] [place] [facility] [address] [id number] [place]561 Aug, [facility] [place] [facility] [address] [id number] [place] [address]- 6087 Aug, [facility] [address] [id number] [place] [address]- 4639 Aug, [facility] [address] [id number] [place] [address]- 8426 Aug, [facility] [address] [id number] [place] [address]- 9562 May, [facility] [address] [id number] [place] [address]- 6263 May, [facility] [address] [id number] [place] [address]- 8808 May, [facility] [address] [id number] [place] [address]- 4750 May, [facility] [address] [id number] [place] [address]- 5509 May, [facility] [address] [id number] [place] [address]- 3599 May, [facility] [address] [id number] [place] [address]- 3983 May, [facility] [address] [id number] [place] [address]- 9160 Apr, [facility] [place] [facility] [address] [id number] [place] [address]- 1737 Apr, [facility] [place] [facility] [address] [id number] [place] [address]- 9375 Apr, [facility] [place] [facility] [address] [id number] [place] [address]- 6596 Apr, [facility] [place] [facility] [address] [id number] [place] [address]- 5002 Apr, [facility] [place] [facility] [address] [id number], [place] [address]- 8996 Apr, [facility] [place] [facility] [address] [id number] [place] [address]- 1489 Apr, [facility] [place] [facility] [address] [id number] [place] [address]- 5949 Apr, [facility] [place] [facility] [address] [id number] [place] [address]- 4042 Apr, [facility] [place] [facility] [address] [id number] [place] [address]- 4470 Apr, [facility] [place] [facility] [address] [id number] [place] [address]- 8329 Mar, [facility] [place] [facility] [address] [id number] [place] [address]- 1460 Mar, [facility] [place] [facility] [address] [id number] [place] [address]- 3009 Mar, [facility] [place] [facility] [address] [id number] [place] [address]- 9162 Mar, [facility] [place] [facility] [address] [id number] [place] [address]- 1073 Feb, [facility] [place] [facility] [address] [id number] [place] [address]- 6066 Feb, [facility] [place] [facility] [address] [id number], [place] [address]- 1387 Jan, [facility] [place] [facility] [address] [id number], [place] [address]- 1507 Jan, [facility] [place] [facility] [address] [id number] [place] [address]- 6812 Jan, [facility] [place] [facility] [address] [id number] [place] [address]484 Dec, [facility] [place] [facility] [address] [id number] [place] [address]64 Dec, [facility] [place] [facility] [address] [id number] [place] [address]- 4656 Nov, [facility] [address] [id number] [place] [address]- 4151 Oct, [facility] [place] [facility] [address] [id number] [place] [address]- 0253 Oct, [facility] [address] [id number] [place] [address]- 2772 Oct, [facility] [address] [id number] [place] [address]- 9533 September, [facility] [address] [id number] [place] [address]- 2809 September, [facility] [address] [id number] [place] [address]- 1505 Jun, [facility] [address] [id number] [place] [address]- 5975 Jun, [facility] [address] [id number] [place] [address]- 8496 Jun, [facility] [address] [id number] [place] [address]- 0873 Jun, [facility] [address] [id number] [place] [address]- 6260 May, [facility] [address] [id number] [place] [address]- 8004 May, [facility] [address] [id number] [place] [address]- 8397 May, [facility] [place] [facility] [address] [id number] [place] [address]- 7456 May, [facility] [place] [facility] [address] [id number] [place] [address] Apr, [facility] [place] [facility] [address] [id number] [place] [address] Apr, [facility] [place] [facility] [address] [id number] [place] [address] Apr, [facility] [place] [facility] [address] [id number], [place] [address] Apr, [facility] [place] [facility] [address] [facility] [id number] [place] [address] Apr, [facility] [place] [facility] [address] [id number], [place] [address] Apr, [facility] [place] [facility] [address] [id number] [place] [address] Mar, [facility] [place] [facility] [address] [facility] [id number], [place] [address] Mar, [facility] [place] [facility] [address] [facility] [id number], [place] [address] Mar, [facility] [place] [facility] [address] [id number], [place] [address] Mar, [facility] [place] [facility] [address] [facility] [id number], [place] [address] Feb, [facility] [place] [facility] [address] [facility] [id number], [place] [address] 31 Feb, 2012 [facility] [place] [facility] [address] [facility] [id number], [place] [address] Feb, [facility] [place] [facility] [address] [id number], [place] [address] 11 Feb, 2012 [facility] [place] [facility] [address] [id number], [place] [address] 10 Feb, 2012 [facility] [place] [facility] [address] [facility] [id number], [place] [address] 17 Jan, 2012 [facility] [place] [facility] [address] [facility] [id number], [place] [address] 13 Sep2011 [facility] [place] [facility] [address] [id number] [place] [address] 12 Jan, 2012 [facility] [place] [facility] [address] [id number] [place] [address] 12 Jan, 2012 [facility] [place] [facility] [address] [id number] [place] [address] 11 Jan, 2012 [facility] [place] [facility] [address] [id number] [place] [address] 14 Dec, 2011 [facility] [place] [facility] [address] [id number] [place] [address] 17 Nov, 2011 [facility] [place] [facility] [address] [id number] [place] [address] Nov, [facility] [place] [facility] [address] [id number] [place] [address] Nov, [facility] [address] [id number] [place] [address] Nov, [facility] [place] [facility] [address] [id number] [place] [address] Nov, [facility] [place] [facility] [address] [id number] [place] [address] 14 Oct, 2011 [facility] [place] [facility] [address] [id number] [place] [address] 16 Sep, 2011 [facility] [place] [facility] [address] [id number] [place] [address] September, [facility] [place] [facility] [address] [id number] [place] [address] 13 Aug, 2011 [facility] [place] [facility] [address] [id number] [place] [address] Aug, [facility] [place] [facility] [address] [id number] [place] [address] Aug, [facility] [place] [facility] [address] [id number] [place] [address] Aug, [facility] [place] [facility] [address] [id number] [place] [address] 16 Jul, 2011 [facility] [place] [facility] [address] [id number] [place] [address] Jul, [facility] [place] [facility] [address] [id number] [place] [address] Jun, [facility] [place] [facility] [address] [id number] [place] [address] Jun, [facility] [place] [facility] [address] [id number] [place] [address] Jun, [facility] [place] [facility] [address] [id number] [place] [address] Jun, [facility] [place] [facility] [address] [id number] [place] [address] May, [facility] [place] [facility] [address] [id number] [place] [address] May, [facility] [place] [facility] [address] [id number] [place] [address] May, [facility] [place] [facility] [address] [id number] [place] [address] May, [facility] [place] [facility] [address] [id number] [place] [address] May, [facility] [place] [facility] [address] [id number] [place] [address] May, [facility] [place] [facility] [address] [id number] [place] [address] Apr, [facility] [place] [facility] [address] [id number] [place] [address] Apr, [facility] [place] [facility] [address] [id number] [place] [address] Apr, [facility] [place] [facility] [address] [id number] [place] [address] Apr, [facility] [address] [id number] [place] [address] 20 Apr, 2011 [facility] [place] [facility] [address] [id number] [place] 16 Apr, 2011 [facility] [address] [id number] [place] [address] 16 Apr, 2011 [facility] [place] [facility] [address] [id number] [place] [address] Apr, [facility] [address] [id number] [place] [address] Mar, [facility] [place] [facility] [address] [id number] [place] [address] Mar, [facility] [address] [id number] [place] [address] Mar, [facility] [place] [facility] [address] [id number] [place] [address] September, [facility] [address] [id number] [place] [address] September, [facility] [address] [id number] [place] [address] Jul, [facility] [address] [id number] [place] [address] 10 Jun, 2010 [facility] [place] [facility] [address] [id number] [place] [address] Apr, [facility] [place] [facility] [address] [id number] [place] [address] Apr, [facility] [place] [facility] [address] [id number] [place] [address] Apr, [facility] [place] [facility] [address] [id number] [place] Mar, [facility] [place] [facility] [address] [address] Mar, [facility] [address] [address] Mar, [facility] [address] [address] Feb, [facility] [address] [address] Jan, [facility] [address] [facility] [id number] [address] Apr, [facility] [id number] [place] [address] Apr, [facility] [address] [address] Mar, [facility] [address] [address] Mar, [facility] [address] [address] Feb, [facility] [address] [address] Jun, IMMUNIZATIONS No Known Immunizations SOCIAL HISTORY Never Assessed REASON FOR VISIT Refill request PLAN OF CARE VITAL SIGNS MEDICATIONS Medication Instructions Dosage Frequency Start Date End Date Duration Status Norvasc 5 MG Orally Once a day 1 tablet 24h 30 days Active RESULTS No Results PROCEDURES No [...]
--- OUTSIDE RECORDS SUMMARY | 2018-02-27 15:14 | XMS REPORT ---
Author Author PRISCILA PITT [facility] Address [address] [place] [address] Care Team Providers Care Used Car Manager Name Role Phone PRISCILA PITT Unavailable PROBLEMS Type Condition ICD9-CM Code [id number] Code Onset Dates Condition Status SNOMED Code Problem Venous insufficiency I87.2 Active 33465922 Problem Hypertension I10 Active 08440335 Problem Back pain M54.9 Active 937361560 Problem Coronary artery disease I25.10 Active 92461396 Problem GERD (gastroesophageal reflux disease) K21.9 Active 537028563 Problem Hyperlipidemia E78.5 Active 79629067 ALLERGIES Substance Reaction Event Type Date Status Celebrex stomach upset Drug Allergy Jun, Active Zocor 20 Mg Tablet Unknown Non Drug Allergy Jun, Active Neurontin 300 Mg Capsule Unknown Non Drug Allergy Jun, Active SOCIAL HISTORY Never Assessed PLAN OF CARE Activity Details Follow Up 2 Months Reason: VITAL SIGNS Height 68 in 2016-06-21 Weight 128 lbs 2016-06-21 Temperature 98.3 degrees Fahrenheit 2016-06-21 Heart Rate 80 bpm 2016-06-21 Respiratory Rate 18 2016-06-21 BMI 19.46 kg/m2 2016-06-21 Blood pressure systolic 130 mmHg 2016-06-21 Blood pressure diastolic 90 mmHg 2016-06-21 MEDICATIONS Medication Instructions Dosage Frequency Start Date End Date Duration Status Pravastatin Sodium 40 TAKE ONE TABLET BY MOUTH AT BEDTIME, AVOID GRAPEFRUIT OR GRAPEFRUIT JUICE 90 Active Mobic 7.5 MG Orally Once a day, pc 1 tablet Jun, Aug, 30 day(s) Active Lisinopril 10 TAKE ONE TABLET BY MOUTH DAILY 90 Active Plavix 75 TAKE ONE TABLET BY MOUTH DAILY 30 Active Klor-Con 10 10 MEQ Orally Once a day 1 tablet with food 24h May, 30 day(s) Active Baclofen 10 mg Orally Once a day 1 tablet 24h May, Active Lansoprazole 30 MG Orally 2 times a day 1 capsule 12h Active Lasix 40 mg Orally Once a day 1 tablet 24h May, 30 day(s) Active Iron 325 (65 Fe) MG Orally Once a day 1 tablet 24h Active Tramadol HCl 50 MG Orally every 6 hrs 1 tablet as needed 6h Active Aspir-Low 81 MG Orally Once a day 1 tablet 24h Active Reglan 10 TAKE ONE TABLET BY MOUTH TWICE A DAY 45 Active Hydrocodone-Acetaminophen 10-325 MG 1 tablet as needed 4h May, Active RESULTS Name Result Date Reference Range CBC 2016-06-21 WBC 6.5 3.4-10.8 RBC 4.07 4.14-5.80 Hemoglobin 13.8 12.6-17.7 Hematocrit 42.3 37.5-51.0 MCV 104 79-97 MCH 33.9 26.6-33.0 MCHC 32.6 31.5-35.7 RDW 13.2 12.3-15.4 Platelets 310 150-379 Neutrophils 56 Lymphs 30 Monocytes 10 Eos 3 Basos 1 Neutrophils (Absolute) 3.7 1.4-7.0 Lymphs (Absolute) 1.9 0.7-3.1 Monocytes(Absolute) 0.6 0.1-0.9 Eos (Absolute) 0.2 0.0-0.4 Baso (Absolute) 0.1 0.0-0.2 Immature Granulocytes 0 Immature Grans (Abs) 0.0 0.0-0.1 BMP 2016-06-21 Glucose, Serum 65 65-99 BUN 5 8-27 Creatinine, Serum 0.64 0.76-1.27 eGFR If NonAfricn Am 103 >59 eGFR If Africn Am 119 >59 BUN/Creatinine Ratio 8 10-22 Sodium, Serum 128 134-144 Potassium, Serum 4.8 3.5-5.2 Chloride, Serum 92 96-106 Carbon Dioxide, Total 21 18-29 Calcium, Serum 8.6 8.6-10.2 PROCEDURES Procedure Date Ordered Result Body Site [facility] Jun 21, 2016 VENIPUNCT, ROUTINE* Jun 21, 2016 [facility] VISIT ESTABLISHED PATIENT Jun 21, 2016 IMMUNIZATIONS No Known Immunizations MEDICAL (GENERAL) HISTORY [...]
--- OUTSIDE RECORDS SUMMARY | 2018-02-27 15:15 | XMS REPORT ---
Author Author PRISCILA PITT [facility] Address [address] [place] [address] Care Team Providers Care Cigar Inspector Name Role Phone PRISCILA PITT Unavailable PROBLEMS Type Condition ICD9-CM Code [id number] Code Onset Dates Condition Status SNOMED Code Problem Venous insufficiency I87.2 Active 98484240 Problem Hypertension I10 Active 17730856 Problem Back pain M54.9 Active 226431487 Problem Coronary artery disease I25.10 Active 49928177 Problem GERD (gastroesophageal reflux disease) K21.9 Active 989745818 Problem Hyperlipidemia E78.5 Active 46106734 ALLERGIES Substance Reaction Event Type Date Status Celebrex stomach upset Drug Allergy May, Active Zocor 20 Mg Tablet Unknown Non Drug Allergy May, Active Neurontin 300 Mg Capsule Unknown Non Drug Allergy May, Active SOCIAL HISTORY No smoking Hx information available PLAN OF CARE Activity Details Follow Up 4 Weeks Reason: VITAL SIGNS Height 68 in 2016-05-24 Weight 128 lbs 2016-05-24 Temperature 98.0 degrees Fahrenheit 2016-05-24 Heart Rate 88 bpm 2016-05-24 Respiratory Rate 18 2016-05-24 BMI 19.46 kg/m2 2016-05-24 Blood pressure systolic 138 mmHg 2016-05-24 Blood pressure diastolic 72 mmHg 2016-05-24 MEDICATIONS Medication Instructions Dosage Frequency Start Date End Date Duration Status Reglan 10 TAKE ONE TABLET BY MOUTH TWICE A DAY 45 Active Klor-Con 10 10 MEQ Orally Once a day 1 tablet with food 24h May, 30 day(s) Active Baclofen 10 mg Orally Once a day 1 tablet 24h May, Active Lasix 40 mg Orally Once a day 1 tablet 24h May, 30 day(s) Active Plavix 75 TAKE ONE TABLET BY MOUTH DAILY 30 Active Hydrocodone-Acetaminophen 10-325 MG 1 tablet as needed 4h Apr, Active Lisinopril 10 TAKE ONE TABLET BY MOUTH DAILY 90 Active Aspir-Low 81 MG Orally Once a day 1 tablet 24h Active Lansoprazole 30 MG Orally 2 times a day 1 capsule 12h Active Iron 325 (65 Fe) MG Orally Once a day 1 tablet 24h Active Flonase 50 MCG/DOSE Nasally Once a day 2 spray in each nostril 24h Active Pravastatin Sodium 40 TAKE ONE TABLET BY MOUTH AT BEDTIME, AVOID GRAPEFRUIT OR GRAPEFRUIT JUICE 90 Active Tramadol HCl 50 MG Orally every 6 hrs 1 tablet as needed 6h Active RESULTS Name Result Date Reference Range CBC 2016-05-24 WBC 8.4 3.4-10.8 RBC 3.12 4.14-5.80 Hemoglobin 10.6 12.6-17.7 Hematocrit 32.3 37.5-51.0 MCV 104 79-97 MCH 34.0 26.6-33.0 MCHC 32.8 31.5-35.7 RDW 14.2 12.3-15.4 Platelets 480 150-379 Neutrophils 68 Lymphs 22 Monocytes 8 Eos 1 Basos 1 Neutrophils (Absolute) 5.8 1.4-7.0 Lymphs (Absolute) 1.8 0.7-3.1 Monocytes(Absolute) 0.7 0.1-0.9 Eos (Absolute) 0.1 0.0-0.4 Baso (Absolute) 0.0 0.0-0.2 Immature Granulocytes 0 Immature Grans (Abs) 0.0 0.0-0.1 BMP 2016-05-24 Glucose, Serum 61 65-99 BUN 5 8-27 Creatinine, Serum 0.64 0.76-1.27 eGFR If NonAfricn Am 103 >59 eGFR If Africn Am 119 >59 BUN/Creatinine Ratio 8 10-22 Sodium, Serum 129 134-144 Potassium, Serum 4.3 3.5-5.2 Chloride, Serum 90 96-106 Carbon Dioxide, Total 21 18-29 Calcium, Serum 8.8 8.6-10.2 AMERITOX 2016-05-24 PROCEDURES Procedure Date Ordered Related Diagnosis Body Site No Charge May 24, 2016 [facility] May 24, 2016 Office Visit, Est Pt., Level 3 May 24, 2016 [facility] VISIT ESTABLISHED PATIENT May 24, 2016 VENIPUNCT, ROUTINE* May 24, 2016 IMMUNIZATIONS No Known Immunizations
--- OUTSIDE RECORDS SUMMARY | 2018-02-27 15:15 | XMS REPORT ---
Author Author PRISCILA PITT Organization [facility] Address [address] [place] [address] Care Team Providers Care Knuckle Bender Name Role Phone PRISCILA PITT Unavailable PROBLEMS Type Condition ICD9-CM Code FFV79-UR Code Onset Dates Condition Status SNOMED Code Problem Coronary artery disease I25.10 Active 50382330 Problem Cigarette nicotine dependence without complication F17.210 Active 63763975 Problem Venous insufficiency I87.2 Active 19082744 Problem Hyperlipidemia E78.5 Active 00544985 Problem Back pain M54.9 Active 594637465 Problem Hypertension I10 Active 18840597 Problem GERD (gastroesophageal reflux disease) K21.9 Active 518835301 ALLERGIES No Information ENCOUNTERS Encounter Location Date Diagnosis [facility] [address] [address] September, [facility] [address] 79454- 8633 Aug, Back pain M54.9 [facility] [id number] [place] [address] 14816- 9741 Aug, [facility] [id number] [place] [address] 99402- 5014 Aug, Back pain M54.9 [facility] [id number] [place] [address] 98807- 0434 Jul, Back pain M54.9 [facility] [address] 83326- 0173 Jun, [facility] [id number] [place] [address] 36728- 1931 Jun, Back pain M54.9 [facility] [address] [place] [address] 6080 May, Back pain M54.9 [facility] [address] 87470- 4417 May, Back pain M54.9 [facility] [address] 64423- 6923 May, Hypertension I10 ; Back pain M54.9 and Cigarette nicotine dependence without complication F17.210 [facility] [address] 40155- 6545 Apr, Back pain M54.9 [facility] [address] 17111- 0698 Apr, Hypokalemia E87.6 [place] [address] 54742- 2085 Apr, Hypokalemia E87.6 [facility] [address] 83825- 3742 Mar, Back pain M54.9 [facility] [address] 64855- 1706 Mar, [facility] [address] 87792- 9638 Mar, Back pain M54.9 ; Coronary artery disease I25.10 and Acute nasopharyngitis J00 [facility] [id number] [place] [address] 02095- 9942 Mar, Back pain M54.9 [facility] [address] 00084- 3181 Feb, Back pain M54.9 [facility] [address] 29329- 4885 Jan, Anemia due to blood loss D50.0 and Hypokalemia E87.6 [facility] [address] 78044- 4548 18 Jan, 2017 [facility] [address] [place] [address] 72307- 5743 11 Jan, 2017 Hypokalemia E87.6 [facility] [id number] [place] [address] 26212 2546 08 Jan, 2017 Back pain M54.9 [facility] [id number] [place] [address] 57264 2546 08 Jan, 2017 [facility] [id number] [place] [address] 03076- 2303 14 Dec, 2016 Hypertension I10 and Back pain M54.9 [facility] [id number] [place] [address] 17849- 7452 29 Oct, 2016 Back pain M54.9 [facility] [id number] [place] [address] 30147- 9912 15 Oct, 2016 Back pain M54.9 [facility] [id number] [place] [address] 75712- 7663 07 Oct, 2016 Back pain M54.9 [facility] [id number] [place] [address] 97511- 0191 08 Sep, 2016 Back pain M54.9 [facility] [id number] [place] [address] 49715- 6037 12 Aug, 2016 Back pain M54.9 [facility] [id number] [place] [address] 49350- 9783 11 Aug, 2016 Epistaxis R04.0 [facility] [address] [place] [address] 73161- 8506 15 Jul, 2016 [facility] [id number] [place] [address] 96835- 4573 14 Jul, 2016 Back pain M54.9 [facility] [address] [place] [address] 45340- 2696 15 Jun, 2016 Back pain M54.9 [facility] [address] [address]- 7209 Jun, Localized edema R60.0 [facility] [id number] [place] [address] 84013- 5946 Jun, [facility] [id number] [place] [address] 43152- 2449 Jun, Anemia due to blood loss D50.0 ; Venous insufficiency I87.2 ; Hypertension I10 and Plantar fasciitis M72.2 [facility] [id number] [place] [address] 00250- 5465 May, Back pain M54.9 [facility] [id number] [place] [address] 19973- 3099 May, [facility] [id number] [place] [address] 11187- 3006 May, terminal gauger use of drug Z79.899 ; Anemia due to blood loss D50.0 and Venous insufficiency I87.2 [facility] [id number] [place] [address] 37881- 4680 May, Back pain M54.9 [facility] [id number] [place] [address] 56532- 9761 May, Anemia due to blood loss D50.0 [facility] [id number] [place] [address] 48304- 3850 May, Localized edema R60.0 [facility] [id number] [place] [address] 46358- 6170 May, Blood loss anemia D50.0 ; Localized edema R60.0 and Coronary artery disease I25.10 [facility] [address] [place] [address] 15453- 3296 Apr, Blood loss anemia D50.0 [facility] [id number] [place] [address] 16961- 3354 Apr, Epistaxis R04.0 ; Anemia, unspecified type D64.9 and Hyponatremia E87.1 [facility] [id number] [place] [address] 15607- 7126 Apr, [facility] [id number] [place] [address] 33897- 1332 Apr, Back pain M54.9 [facility] [address] 08825- 0871 Apr, Back pain M54.9 [facility] [id number] [place] [address] 30772- 5795 Mar, [facility] [id number] [place] [address] 63484- 5030 Mar, Back pain M54.9 [facility] [address] 34685- 4046 Feb, [facility] [id number] [place] [address] 67686- 1071 Feb, [facility] [address] 47364- 9134 Jan, [facility] [id number] [place] [address] 70483- 3361 Dec, [facility] [id number] [place] [address] 09298- 0885 Dec, [facility] [id number] [place] [address] 08059- 0881 Dec, Arthritis, 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 and Leg weakness, bilateral M62.81 [facility] [id number] [place] [address] 81837- 9053 Dec, [facility] [id number] [place] [address] 53955- 8456 Oct, Back pain M54.9 [facility] [address] [place] [address]- 7056 Oct, Back pain M54.9 [facility] [id number] [place] [address] 60746- 9186 September, Back pain M54.9 [facility] [id number] [place] [address] 16935- 3716 Aug, Back pain M54.9 [facility] [address] 95308- 8200 Aug, Back pain M54.9 [facility] [id number] [place] [address] 91781- 2624 Jul, [facility] [id number] [place] [address] 62210- 2298 Jul, Back pain M54.9 [facility] [id number] [place] [address] 95483- 7940 16 Jun, 2015 [facility] [id number] [place] [address] 92412- 3452 Jun, Back pain M54.9 [facility] [id number] [place] [address] 12096- 4434 15 May, 2015 terminal gauger use of drug Z79.899 ; Back pain M54.9 ; Hyperlipidemia E78.5 ; Hypertension I10 and GERD (gastroesophageal reflux disease) K21.9 [facility] [id number] [place] [address] 38773- 2466 May, Arthritis M19.90 [facility] [id number] [place] [address] 01400- 9373 Apr, [facility] [id number] [place] [address] 84734- 0361 Apr, [facility] [id number] [place] [address] 77527- 7267 Mar, [facility] [id number] [place] [address] [place] [address]- 9545 Mar, [facility] [id number] [address]- 0151 Feb, Arthritis M19.90 ; Encounter for immunization Z23 ; Contusion of right hip S70.01XA and Coronary artery disease I25.10 [facility] [address] [address]- 3405 Jan, [facility] [id number] [place] [address] 72462- 9482 Jan, [facility] [id number] [place] [address] 98218- 0505 Dec, Acute bronchitis 466.0 and Unspecified arthropathy, site unspecified 716.90 [facility] [id number] [address]- 3683 Dec, [facility] [id number] [place] [address] 11754- 9024 Dec, [facility] [address] [address]- 9837 Nov, [facility] [id number] [address]- 9926 Nov, [facility] [address] [address]- 7872 Nov, [facility] [address] [address]- 7126 Oct, [facility] [address] [address]- 7759 Oct, [facility] [id number] [address]- 0578 Oct, Unspecified arthropathy, site unspecified 716.90 [facility] [address] [address]- 7924 Oct, [facility] [id number] [place] [address]- 1621 September, [facility] [address] [id number] [place] [address]- 1867 September, [facility] [place] [facility] [address] [id number] [place] [address]- 6184 Aug, [facility] [place] [facility] [address] [id number] [place] [address]- 4624 Aug, [facility] [place] [facility] [address] [id number] [place] [address]- 9318 Jul, [facility] [place] [facility] [address] [id number] [place] [address]- 4916 Jul, [facility] [place] [facility] [address] [id number] [place] [address]- 9882 Jul, [facility] [place] [facility] [address] [id number] [place] [address]- 8398 Jul, [facility] [place] [facility] [address] [id number] [place] [address]- 7928 Jul, [facility] [place] [facility] [address] [id number] [place] [address]- 3631 Jul, [facility] [place] [facility] [address] [id number] [place] [address]- 5755 Jun, [facility] [place] [facility] [address] [id number] [place] [address]- 1596 Jun, [facility] [place] [facility] [address] [id number] [place] [address]- 0081 Jun, [facility] [place] [facility] [address] [id number] [place] [address]- 4936 Jun, [facility] [place] [facility] [address] [id number] [place] [address]- 4176 May, [facility] [place] [facility] [address] [id number] [place] [address]- 5519 May, [facility] [place] [facility] [address] [id number] [place] [address]- 6589 May, [facility] [place] [facility] [address] [id number] [place] [address]- 6786 May, [facility] [place] [facility] [address] [facility] [id number] [place] [address]- 1792 May, [facility] [place] [facility] [address] [id number] [place] [address]- 0067 May, [facility] [place] [facility] [address] [id number] [place] [address]- 4424 May, [facility] [place] [facility] [address] [id number] [place] [address]- 9053 May, [facility] [place] [facility] [address] [id number] [place] [address]- 1156 May, [facility] [place] [facility] [address] [id number], [place] [address]- 3325 May, [facility] [place] [facility] [address] [id number] [place] [address]- 3877 May, [facility] [place] [facility] [address] [id number] [place] [address]- 4700 Apr, [facility] [place] [facility] [address] [id number], [place] [address]- 8625 Apr, [facility] [place] [facility] [address] [id number], [place] [address]- 2680 Apr, [facility] [place] [facility] [address] [id number] [place] [address]- 4292 Apr, [facility] [place] [facility] [address] [id number], [place] [address]- 1196 Apr, [facility] [place] [facility] [address] [id number] [place] [address]- 6904 Mar, [facility] [place] [facility] [address] [id number] [place] [address]- 9951 Mar, [facility] [place] [facility] [address] [id number] [place] [address]- 8060 Feb, [facility] [place] [facility] [address] [id number] [place] [address]- 2089 Feb, [facility] [place] [facility] [address] [id number] [place]23 Feb, [facility] [place] [facility] [address] [id number] [place] [address]- 4241 Feb, [facility] [place] [facility] [address] [id number] [place] [address]- 0718 Jan, [facility] [place] [facility] [address] [id number] [place] [address]- 1895 Jan, [facility] [place] [facility] [address] [id number] [place] [address]- 7814 Dec, [facility] [place] [facility] [address] [id number] [place] [address]- 1560 Dec, [facility] [place] [facility] [address] [id number] [place] [address]- 0489 Nov, [facility] [place] [facility] [address] [id number] [place] [address]- 6284 Nov, [facility] [place] [facility] [address] [id number] [place] [address]- 6533 Oct, [facility] [place] [facility] [address] [id number] [place] [address]- 1052 Oct, [facility] [place] [facility] [address] [id number] [place] [address]- 6080 Oct, [facility] [place] [facility] [address] [id number] [place] [address]- 3236 Oct, [facility] [place] [facility] [address] [id number] [place] [address]607 Aug, [facility] [place] [facility] [address] [id number] [place] [address]- 7142 Aug, [facility] [address] [id number] [place] [address]- 1758 Aug, [facility] [address] [id number] [place] [address]- 7893 Aug, [facility] [address] [id number] [place] [address]- 0002 May, [facility] [address] [id number] [place] [address]- 7459 May, [facility] [address] [id number] [place] [address]- 6005 May, [facility] [address] [id number] [place] [address]- 8380 May, [facility] [address] [id number] [place] [address] May, [facility] [address] [id number] [place] [address]- 6079 May, [facility] [address] [id number] [place] [address]- 0502 May, [facility] [address] [id number] [place] [address]- 1703 Apr, [facility] [place] [facility] [address] [id number] [place] [address]- 8846 Apr, [facility] [place] [facility] [address] [id number] [place] [address]- 0079 Apr, [facility] [place] [facility] [address] [id number] [place] [address]- 9146 Apr, [facility] [place] [facility] [address] [id number] [place] [address]- 8230 Apr, [facility] [place] [facility] [address] [id number], [place] [address]- 6449 Apr, [facility] [place] [facility] [address] [id number] [place] [address]- 7105 Apr, [facility] [place] [facility] [address] [id number] [place] [address]- 4615 Apr, [facility] [place] [facility] [address] [id number] [place] [address]- 6874 Apr, [facility] [place] [facility] [address] [id number] [place] [address]- 2692 Apr, [facility] [place] [facility] [address] [id number] [place] [address]- 2265 Mar, [facility] [place] [facility] [address] [id number] [place] [address]- 0788 Mar, [facility] [place] [facility] [address] [id number] [place] [address]- 6110 Mar, [facility] [place] [facility] [address] [id number] [place] [address]- 5622 Mar, [facility] [place] [facility] [address] [id number] [place] [address]- 8347 Feb, [facility] [place] [facility] [address] [id number] [place] [address]- 3328 Feb, [facility] [place] [facility] [address] [id number], [place] [address]- 8812 Jan, [facility] [place] [facility] [address] [id number], [place] [address]- 6771 Jan, [facility] [place] [facility] [address] [id number] [place] [address]- 7388 Jan, [facility] [place] [facility] [address] [id number] [place]72 Dec, [facility] [place] [facility] [address] [id number] [place] 2859 Dec, [facility] [place] [facility] [address] [id number] [place] [address]- 8406 Nov, [facility] [address] [id number] [place] [address]- 4880 Oct, [facility] [place] [facility] [address] [id number] [place] [address]- 6976 Oct, [facility] [address] [id number] [place] [address]- 7580 Oct, [facility] [address] [id number] [place] [address]- 9137 September, [facility] [address] [id number] [place] [address]- 4872 September, [facility] [address] [id number] [place] [address]- 3626 Jun, [facility] [address] [id number] [place] [address]- 9968 Jun, [facility] [address] [id number] [place] [address]- 7001 Jun, [facility] [address] [id number] [place] [address]- 0066 Jun, [facility] [address] [id number] [place] [address] May, [facility] [address] [id number] [place] [address] May, [facility] [address] [id number] [place] [address] May, [facility] [place] [facility] [address] [id number] [place] [address] May, [facility] [place] [facility] [address] [id number] [place] [address] Apr, [facility] [place] [facility] [address] [id number] [place] [address] Apr, [facility] [place] [facility] [address] [id number] [place] [address] Apr, [facility] [place] [facility] [address] [id number], [place] [address] Apr, [facility] [place] [facility] [address] [facility] [id number] [place] [address] Apr, [facility] [place] [facility] [address] [id number], [place] [address] Apr, [facility] [place] [facility] [address] [id number] [place] [address] Mar, [facility] [place] [facility] [address] [facility] [id number], [place] [address] Mar, [facility] [place] [facility] [address] [facility] [id number], [place] [address] Mar, [facility] [place] [facility] [address] [id number], [place] [address] Mar, [facility] [place] [facility] [address] [facility] [id number], [place] [address] Feb, [facility] [place] [facility] [address] [facility] [id number], [place] [address] 31 Feb, 2012 [facility] [place] [facility] [address] [facility] [id number], [place] [address] Feb, [facility] [place] [facility] [address] [id number], [place] [address] 11 Feb, 2012 [facility] [place] [facility] [address] [id number], [place] [address] 10 Feb, 2012 [facility] [place] [facility] [address] [facility] [id number], [place] [address] 17 Jan, 2012 [facility] [place] [facility] [address] [facility] [id number], [place] [address] 254 13 Sep2011 [facility] [place] [facility] [address] [id number] [place] [address] 12 Jan, 2012 [facility] [place] [facility] [address] [id number] [place] [address] 12 Jan, 2012 [facility] [place] [facility] [address] [id number] [place] [address]- [address]66 11 Jan, 2012 [facility] [place] [facility] [address] [id number] [place] [address] 14 Dec, 2011 [facility] [place] [facility] [address] [id number] [place] [address] 17 Nov, 2011 [facility] [place] [facility] [address] [id number] [place] [address] Nov, [facility] [place] [facility] [address] [id number] [place] [address] Nov, [facility] [address] [id number] [place] [address] Nov, [facility] [place] [facility] [address] [id number] [place] [address] Nov, [facility] [place] [facility] [address] [id number] [place] [address] 14 Oct, 2011 [facility] [place] [facility] [address] [id number] [place] [address] 16 Sep, 2011 [facility] [place] [facility] [address] [id number] [place] [address] September, [facility] [place] [facility] [address] [id number] [place] [address] 13 Aug, 2011 [facility] [place] [facility] [address] [id number] [place] [address] Aug, [facility] [place] [facility] [address] [id number] [place] [address] Aug, [facility] [place] [facility] [address] [id number] [place] [address] Aug, [facility] [place] [facility] [address] [id number] [place] [address]- [address] 16 Jul, 2011 [facility] [place] [facility] [address] [id number] [place] [address]- [address] Jul, [facility] [place] [facility] [address] [id number] [place] [address] Jun, [facility] [place] [facility] [address] [id number] [place] [address] Jun, [facility] [place] [facility] [address] [id number] [place] [address] Jun, [facility] [place] [facility] [address] [id number] [place] [address] Jun, [facility] [place] [facility] [address] [id number] [place] [address] May, [facility] [place] [facility] [address] [id number] [place] [address]- [address] May, [facility] [place] [facility] [address] [id number] [place] [address]- [address] May, [facility] [place] [facility] [address] [id number] [place] [address]- [address] May, [facility] [place] [facility] [address] [id number] [place] [address]- [address] May, [facility] [place] [facility] [address] [id number] [place] [address]- [address] May, [facility] [place] [facility] [address] [id number] [place] [address] Apr, [facility] [place] [facility] [address] [id number] [place] [address] Apr, [facility] [place] [facility] [address] [id number] [place] [address] Apr, [facility] [place] [facility] [address] [id number] [place] [address] Apr, [facility] [address] [id number] [place] [address] 20 Apr, 2011 [facility] [place] [facility] [address] [id number] [place] [address] 16 Apr, 2011 [facility] [address] [id number] [place] [address] 16 Apr, 2011 [facility] [place] [facility] [address] [id number] [place] [address] Apr, [facility] [address] [id number] [place] [address] Mar, [facility] [place] [facility] [address] [id number] [place] [address] Mar, [facility] [address] [id number] [place] [address] Mar, [facility] [place] [facility] [address] [id number] [place] [address] September, [facility] [address] [id number] [place] [address] September, [facility] [address] [id number] [place] [address] Jul, [facility] [address] [id number] [place] [address] 10 Jun, 2010 [facility] [place] [facility] [address] [id number] [place] [address] Apr, [facility] [place] [facility] [address] [id number] [place] [address] Apr, [facility] [place] [facility] [address] [id number] [place] [address] Apr, [facility] [place] [facility] [address] [id number] [place] [address] [address] Mar, [facility] [place] [facility] [id number] [address] Mar, [facility] [id number] [address] Mar, [facility] [id number] [address] Feb, [facility] [id number] [address] Jan, [facility] [id number] [address] Apr, [facility] [id number] [place] [address] Apr, [facility] [id number] [place] [address] Mar, [facility] [id number] [place] [address] Mar, [facility] [id number] [place] [address] Feb, [facility] [id number] [place] [address] Jun, IMMUNIZATIONS No Known Immunizations SOCIAL HISTORY Never Assessed REASON FOR VISIT med refills PLAN OF CARE VITAL SIGNS MEDICATIONS Medication [...]
[2018-02-27 15:18] LABS: ALANINE AMINOTRANSFERASE 21 U/L (0-55); ALBUMIN 3.6 GM/DL (3.2-4.5); ALKALINE PHOSPHATASE 57 U/L (40-136); BILIRUBIN,TOTAL 0.3 MG/DL (0.1-1.0); BUN/CREATININE RATIO 49; CALCIUM 8.6 MG/DL (8.5-10.1); CARBON DIOXIDE 18 MMOL/L (21-32); CHLORIDE 99 MMOL/L (98-107); CREATININE SERUM 0.65 MG/DL (0.60-1.30); GFR ESTIMATED > 60; GLUCOSE 107 MG/DL (70-105); POTASSIUM 4.2 MMOL/L (3.6-5.0); SODIUM 130 MMOL/L (135-145); TOTAL PROTEIN 5.6 GM/DL (6.4-8.2)
[2018-02-27] MEDS ORDERED: RT-ALBUTEROL/IPRATROPIUM 3 ML (DUONEB) VIAL ONE (15:18)
--- OUTSIDE RECORDS SUMMARY | 2018-02-27 15:19 | XMS REPORT | Continuity of Care Document ---
Author Author [facility] Address Unknown Phone Unavailable Allergies Active Description Code Type Severity Reaction Onset Reported/Identified Relationship to Patient Clinical Status Yes NKANo Known Allergies NKA Miscellaneous Allergy Mild N/A 02/08/2009 Yes Zocor 20 mg tablet Drug Allergy 06/11/2011 Yes Zocor 20 mg tablet Drug Allergy N/A N/A 06/11/2011 Yes Neurontin 300 mg capsule Drug Allergy N/A N/A 08/20/2013 Medications There is no data. Problems Date Dx Coded Attending Type Code Diagnosis Diagnosed By 05/30/2008 BIJAN MAN DO 401.1 ESSENTIAL HYPERTENSION BENIGN 05/30/2008 BIJAN MAN DO 780.79 Malaise And Fatigue 05/30/2008 BIJAN MAN DO 782.0 Burning Sensation (dysesthesia) 05/30/2008 BIJAN MAN DO 401.1 ESSENTIAL HYPERTENSION BENIGN 05/30/2008 BIJAN MAN DO 780.79 Malaise And Fatigue 05/30/2008 BIJAN MAN DO 782.0 Burning Sensation (dysesthesia) 05/30/2008 PRISCILA PITT MD 401.1 ESSENTIAL HYPERTENSION BENIGN 05/30/2008 PRISCILA PITT MD 780.79 Malaise And Fatigue 05/30/2008 PRISCILA PITT MD 782.0 Burning Sensation (dysesthesia) 05/30/2008 PRISCILA PITT MD 401.1 ESSENTIAL HYPERTENSION BENIGN 05/30/2008 PRISCILA PITT MD 780.79 Malaise And Fatigue 05/30/2008 PRISCILA PITT MD 782.0 Burning Sensation (dysesthesia) 05/30/2008 PRISCILA PITT MD 401.1 ESSENTIAL HYPERTENSION BENIGN 05/30/2008 PRISCILA PITT MD 780.79 Malaise And Fatigue 05/30/2008 PRISCILA PITT MD 782.0 Burning Sensation (dysesthesia) 05/30/2008 PRISCILA PITT MD 401.1 ESSENTIAL HYPERTENSION BENIGN 05/30/2008 PRISCILA PITT MD 780.79 Malaise And Fatigue 05/30/2008 PRISCILA PITT MD 782.0 Burning Sensation (dysesthesia) 05/30/2008 PRISCILA PITT MD 401.1 ESSENTIAL HYPERTENSION BENIGN 05/30/2008 PRISCILA PITT MD 780.79 Malaise And Fatigue 05/30/2008 PRISCILA PITT MD 782.0 Burning Sensation (dysesthesia) 05/30/2008 PRISCILA PITT MD 401.1 ESSENTIAL HYPERTENSION BENIGN 05/30/2008 PRISCILA PITT MD 780.79 Malaise And Fatigue 05/30/2008 PRISCILA PITT MD 782.0 Burning Sensation (dysesthesia) 05/30/2008 SWEETIE ROD, PRISCILA 401.1 ESSENTIAL HYPERTENSION BENIGN 05/30/2008 PRISCILA PITT MD 780.79 Malaise And Fatigue 05/30/2008 PRISCILA PITT MD 782.0 Burning Sensation (dysesthesia) 05/30/2008 PRISCILA PITT MD 401.1 ESSENTIAL HYPERTENSION BENIGN 05/30/2008 PRISCILA PITT MD 780.79 Malaise And Fatigue 05/30/2008 PRISCILA PITT MD 782.0 Burning Sensation (dysesthesia) 05/30/2008 PRISCILA PITT MD 401.1 ESSENTIAL HYPERTENSION BENIGN 05/30/2008 PRISCILA PITT MD 780.79 Malaise And Fatigue 05/30/2008 PRISCILA PITT MD 782.0 Burning Sensation (dysesthesia) 05/30/2008 PRISCILA PITT MD 401.1 ESSENTIAL HYPERTENSION BENIGN 05/30/2008 PRISCILA PITT MD.79 Malaise And Fatigue 05/30/2008 PRISCILA PITT MD 782.0 Burning Sensation (dysesthesia) 07/04/2008 MAN DO, BIJAN Sheppard 724.2 Lower Back Pain 07/04/2008 MAN DO, BIJAN Sheppard 724.2 Lower Back Pain 07/04/2008 PRISCILA PITT MD 724.2 Lower Back Pain 07/04/2008 PRISCILA PITT MD 724.2 Lower Back Pain 07/04/2008 PRISCILA PITT MD 724.2 Lower Back Pain 07/04/2008 PRISCILA PITT MD 724.2 Lower Back Pain 07/04/2008 PRISCILA PITT MD 724.2 Lower Back Pain 07/04/2008 SWEETIE ROD, PRISCILA 724.2 Lower Back Pain 07/04/2008 SWEETIE ROD, PRISCILA 724.2 Lower Back Pain 07/04/2008 SWEETIE ROD, PRISCILA 724.2 Lower Back Pain 07/04/2008 SWEETIE ROD, PRISCILA 724.2 Lower Back Pain 07/04/2008 SWEETIE ROD, PRISCILA 724.2 Lower Back Pain 11/08/2008 MAN DO, BIJAN K 401.9 ESSENTIAL HYPERTENSION 11/08/2008 MAN DO, BIJAN K 716.90 Arthritis 11/08/2008 MAN DO, BIJAN K 401.9 ESSENTIAL HYPERTENSION 11/08/2008 MAN DO, BIJAN K 716.90 Arthritis 11/08/2008 SWEETIE ROD, PRISCILA 401.9 ESSENTIAL HYPERTENSION 11/08/2008 SWEETIE ROD, PRISCILA 716.90 Arthritis 11/08/2008 SWEETIE ROD, PRISCILA 401.9 ESSENTIAL HYPERTENSION 11/08/2008 SWEETIE ROD, PRISCILA Armenta.90 Arthritis 11/08/2008 SWEETIE ROD, PRISCILA 401.9 ESSENTIAL HYPERTENSION 11/08/2008 SWEETIE ROD, PRISCILA Araya6.90 Arthritis 11/08/2008 SWEETIE ROD, PRISCILA 401.9 ESSENTIAL HYPERTENSION 11/08/2008 SWEETIE ROD, PRISCILA Armenta.90 Arthritis 11/08/2008 SWEETIE ROD, PRISCILA 401.9 ESSENTIAL HYPERTENSION 11/08/2008 SWEETIE ROD, PRISCILA 716.90 Arthritis 11/08/2008 SWEETIE ROD, PRISCILA 401.9 ESSENTIAL HYPERTENSION 11/08/2008 SWEETIE ROD, PRISCILA Armenta.90 Arthritis 11/08/2008 SWEETIE ROD, PRISCILA 401.9 ESSENTIAL HYPERTENSION 11/08/2008 SWEETIE ROD, PRISCILA Armenta.90 Arthritis 11/08/2008 SWEETIE ROD, PRISCILA 401.9 ESSENTIAL HYPERTENSION 11/08/2008 SWEETIE ROD, PRISCILA Armenta.90 Arthritis 11/08/2008 SWEETIE ROD, PRISCILA 401.9 ESSENTIAL HYPERTENSION 11/08/2008 SWEETIE ROD, PRISCILA Armenta.90 Arthritis 11/08/2008 SWEETIE ROD, PRISCILA 401.9 ESSENTIAL HYPERTENSION 11/08/2008 SWEETIE ROD, PRISCILA Armenta.Margret Arthritis 01/10/2009 MAN DO, BIJAN K 724.5 Backache 01/10/2009 BIJAN MAN DO 724.5 Backache 01/10/2009 SWEETIE ROD, PRISCILA 724.5 Backache 01/10/2009 SWEETIE ROD, PRISCILA 724.5 Backache 01/10/2009 SWEETIE ROD, PRISCILA 724.5 Backache 01/10/2009 SWEETIE ROD, PRISCILA 724.5 Backache 01/10/2009 SWEETIE ROD, PRISCILA 724.5 Backache 01/10/2009 SWEETIE ROD, PRISCILA 724.5 Backache 01/10/2009 SWEETIE ROD, PRISCILA 724.5 Backache 01/10/2009 SWEETIE ROD, PRISCILA 724.5 Backache 01/10/2009 SWEETIE ROD, PRISCILA 724.5 Backache 01/10/2009 SWEETIE ROD, PRISCILA Hayes4.5 Backache 01/16/2009 BIJAN MAN DO 276.1 Hyponatremia Sodium Deficiency 01/16/2009 BIJAN MAN DO 276.1 Hyponatremia Sodium Deficiency 01/16/2009 PRISCILA PITT MD 276.1 Hyponatremia Sodium Deficiency 01/16/2009 PRISCILA PITT MD 276.1 Hyponatremia Sodium Deficiency 01/16/2009 SWEETIE ROD, PRISCILA 276.1 Hyponatremia Sodium Deficiency 01/16/2009 PRISCILA PITT MD 276.1 Hyponatremia Sodium Deficiency 01/16/2009 PRISCILA PITT MD 276.1 Hyponatremia Sodium Deficiency 01/16/2009 PRISCILA PITT MD 276.1 Hyponatremia Sodium Deficiency 01/16/2009 PRISCILA PITT MD 276.1 Hyponatremia Sodium Deficiency 01/16/2009 PRISCILA PITT MD 276.1 Hyponatremia Sodium Deficiency 01/16/2009 PRISCILA PITT MD 276.1 Hyponatremia Sodium Deficiency 01/16/2009 PRISCILA PITT MD 276.1 Hyponatremia Sodium Deficiency 12/11/2009 MAN DOALA K 729.5 Pain In Limb 12/11/2009 MAN DOALA K 780.8 Generalized Hyperhidrosis 12/11/2009 MAN DO BIJAN K 729.5 Pain In Limb 12/11/2009 MAN DO BIJAN K 780.8 Generalized Hyperhidrosis 12/11/2009 PRISCILA PITT MD 729.5 Pain In Limb 12/11/2009 PRISCILA PITT MD 780.8 Generalized Hyperhidrosis 12/11/2009 SWEETIE ROD, PRISCILA 729.5 Pain In Limb 12/11/2009 SWEETIE ROD, PRISCILA 780.8 Generalized Hyperhidrosis 12/11/2009 SWEETIE ROD, PRISCILA 729.5 Pain In Limb 12/11/2009 SWEETIE ROD, PRISCILA 780.8 Generalized Hyperhidrosis 12/11/2009 SWEETIE ROD, PRISCILA 729.5 Pain In Limb 12/11/2009 SWEETIE ROD, PRISCILA 780.8 Generalized Hyperhidrosis 12/11/2009 PRISCILA PITT MD 729.5 Pain In Limb 12/11/2009 SWEETIE ROD, PRISCILA 780.8 Generalized Hyperhidrosis 12/11/2009 SWEETIE ROD, PRISCILA 729.5 Pain In Limb 12/11/2009 SWEETIE ROD, PRISCILA 780.8 Generalized Hyperhidrosis 12/11/2009 SWEETIE ROD, PRISCILA 729.5 Pain In Limb 12/11/2009 SWEETIE ROD, PRISCILA 780.8 Generalized Hyperhidrosis 12/11/2009 PRISCILA PITT MD 729.5 Pain In Limb 12/11/2009 PRISCILA PITT MD 780.8 Generalized Hyperhidrosis 12/11/2009 PRISCILA PITT MD 729.5 Pain In Limb 12/11/2009 PRISCILA PITT MD 780.8 Generalized Hyperhidrosis 12/11/2009 PRISCILA PITT MD 729.5 Pain In Limb 12/11/2009 PRISCILA PITT MD 780.8 Generalized Hyperhidrosis 01/27/2010 BIJAN MAN DO K 465.9 Upper Respiratory Infection 01/27/2010 MAGDA RINCON BIJAN K 783.21 Weight Loss 01/27/2010 MAGDA RINCON BIJAN K 786.2 Cough 01/27/2010 MAN AL RINCONA K 465.9 Upper Respiratory Infection 01/27/2010 MAGDA RINCON BIJAN K 783.21 Weight Loss 01/27/2010 MAGDA RINCON BIJAN K 786.2 Cough 01/27/2010 PRISCILA PITT MD 465.9 Upper Respiratory Infection 01/27/2010 PRISCILA PITT MD 783.21 Weight Loss 01/27/2010 PRISCILA PITT MD 786.2 Cough 01/27/2010 PRISCILA PITT MD 465.9 Upper Respiratory Infection 01/27/2010 SWEETIE ROD, PRISCILA 783.21 Weight Loss 01/27/2010 SWEETIE ROD, PRISCILA 786.2 Cough 01/27/2010 SWEETIE ROD, PRISCILA 465.9 Upper Respiratory Infection 01/27/2010 SWEETIE ROD, PRISCILA 783.21 Weight Loss 01/27/2010 SWEETIE ROD, PRISCILA 786.2 Cough 01/27/2010 SWEETIE ROD, PRISCILA 465.9 Upper Respiratory Infection 01/27/2010 SWEETIE ROD, PRISCILA 783.21 Weight Loss 01/27/2010 SWEETIE ROD, PRISCILA 786.2 Cough 01/27/2010 SWEETIE ROD, PRISCILA 465.9 Upper Respiratory Infection 01/27/2010 SWEETIE ROD, PRISCILA 783.21 Weight Loss 01/27/2010 SWEETIE ROD, PRISCILA 786.2 Cough 01/27/2010 SWEETIE ROD, PRISCILA 465.9 Upper Respiratory Infection 01/27/2010 SWEETIE ROD, PRISCILA 783.21 Weight Loss 01/27/2010 SWEETIE ROD, PRISCILA 786.2 Cough 01/27/2010 SWEETIE ROD, PRISCILA 465.9 Upper Respiratory Infection 01/27/2010 SWEETIE ROD, PRISCILA 783.21 Weight Loss 01/27/2010 SWEETIE ROD, PRISCILA 786.2 Cough 01/27/2010 SWEETIE ROD, PRISCILA 465.9 Upper Respiratory Infection 01/27/2010 SWEETIE ROD, PRISCILA 783.21 Weight Loss 01/27/2010 SWEETIE ROD, PRISCILA 786.2 Cough 01/27/2010 SWEETIE ROD, PRISCILA 465.9 Upper Respiratory Infection 01/27/2010 SWEETIE ROD, PRISCILA 783.21 Weight Loss 01/27/2010 SWEETIE ROD, PRISCILA 786.2 Cough 01/27/2010 SWEETIE ROD, PRISCILA 465.9 Upper Respiratory Infection 01/27/2010 SWEETIE ROD, PRISCILA 783.21 Weight Loss 01/27/2010 SWEETIE ROD, PRISCILA 786.2 Cough 03/19/2010 BIJAN MAN DO K 724.00 SPINAL STENOSIS OF UNSPECIFIED REGION 03/19/2010 BIJAN MAN DO K 724.00 SPINAL STENOSIS OF UNSPECIFIED REGION 03/19/2010 SWEETIE ROD, PRISCILA 724.00 SPINAL STENOSIS OF UNSPECIFIED REGION 03/19/2010 SWEETIE ROD, PRISCILA 724.00 SPINAL STENOSIS OF UNSPECIFIED REGION 03/19/2010 SWEETIE ROD, PRISCILA 724.00 SPINAL STENOSIS OF UNSPECIFIED REGION 03/19/2010 SWEETIE ROD, PRISCILA 724.00 SPINAL STENOSIS OF UNSPECIFIED REGION 03/19/2010 SWEETIE ROD, PRISCILA 724.00 SPINAL STENOSIS OF UNSPECIFIED REGION 03/19/2010 SWEETIE ROD, PRISCILA 724.00 SPINAL STENOSIS OF UNSPECIFIED REGION 03/19/2010 SWEETIE ROD, PRISCILA 724.00 SPINAL STENOSIS OF UNSPECIFIED REGION 03/19/2010 SWEETIE ROD, PRISCILA 724.00 SPINAL STENOSIS OF UNSPECIFIED REGION 03/19/2010 SWEETIE ROD, PRISCILA 724.00 SPINAL STENOSIS OF UNSPECIFIED REGION 03/19/2010 SWEETIE ROD, PRISCILA 724.00 SPINAL STENOSIS OF UNSPECIFIED REGION 04/02/2010 BIJAN MAN DO 414.01 CAD 04/02/2010 BIJAN MAN DO K 414.01 CAD 04/02/2010 SWEETIE ROD, PRISCILA 414.01 CAD 04/02/2010 SWEETIE ROD, PRISCILA 414.01 CAD 04/02/2010 SWEETIE ROD, PRISCILA 414.01 CAD 04/02/2010 SWEETIE ROD, PRISCILA 414.01 CAD 04/02/2010 SWEETIE ROD, PRISCILA 414.01 CAD 04/02/2010 SWEETIE ROD, PRISCILA 414.01 CAD 04/02/2010 SWEETIE ROD, PRISCILA 414.01 CAD 04/02/2010 SWEETIE ROD, PRISCILA 414.01 CAD 04/02/2010 SWEETIE ROD, PRISCILA 414.01 CAD 04/02/2010 SWEETIE ROD, PRISCILA 414.01 CAD 05/06/2010 BIJAN MAN DO K 786.52 Anterior Wall Chest Pain With Respiration 05/06/2010 BIJAN MAN DO K 786.52 Anterior Wall Chest Pain With Respiration 05/06/2010 PRISCILA PITT MD 786.52 Anterior Wall Chest Pain With Respiration 05/06/2010 PRISCILA PITT MD 786.52 Anterior Wall Chest Pain With Respiration 05/06/2010 PRISCILA PITT MD 786.52 Anterior Wall Chest Pain With Respiration 05/06/2010 PRISCILA PITT MD 786.52 Anterior Wall Chest Pain With Respiration 05/06/2010 PRISCILA PITT MD 786.52 Anterior Wall Chest Pain With Respiration 05/06/2010 SWEETIE ROD, PRISCILA 786.52 Anterior Wall Chest Pain With Respiration 05/06/2010 SWEETIE ROD, PRISCILA 786.52 Anterior Wall Chest Pain With Respiration 05/06/2010 SWEETIE ROD, PRISCILA 786.52 Anterior Wall Chest Pain With Respiration 05/06/2010 SWEETIE ROD, PRISCILA 786.52 Anterior Wall Chest Pain With Respiration 05/06/2010 SWEETIE ROD, PRISCILA 786.52 Anterior Wall Chest Pain With Respiration 06/25/2010 BIJAN MAN DO 46Carole Pharyngitis Acute 06/25/2010 BIJAN MAN DO Pharyngitis Acute 06/25/2010 SWEETIE ROD, PRISCILA Keen Pharyngitis Acute 06/25/2010 SWEETIE ROD, PRISCILA Keen Pharyngitis Acute 06/25/2010 SWEETIE ROD, PRISCILA Keen Pharyngitis Acute 06/25/2010 SWEETIE ROD, PRISCILA Keen Pharyngitis Acute 06/25/2010 SWEETIE ROD, PRISCILA Keen Pharyngitis Acute 06/25/2010 SWEETIE ROD, PRISCILA Keen Pharyngitis Acute 06/25/2010 SWEETIE ROD, PRISCILA Keen Pharyngitis Acute 06/25/2010 SWEETIE ROD, PRISCILA Keen Pharyngitis Acute 06/25/2010 SWEETIE ROD, PRISCILA Keen Pharyngitis Acute 06/25/2010 SWEETIE ROD, PRISCILA Keen Pharyngitis Acute 07/09/2010 BIJAN MAN DO V67.59 Other Follow-up Examination 07/09/2010 BIJAN MAN DO V67.59 Other Follow-up Examination 07/09/2010 PRISCILA PITT MD V67.59 Other Follow-up Examination 07/09/2010 PRISCILA PITT MD V67.59 Other Follow-up Examination 07/09/2010 PRISCILA PITT MD V67.59 Other Follow-up Examination 07/09/2010 PRISCILA PITT MD V67.59 Other Follow-up Examination 07/09/2010 PRISCILA PITT MD V67.59 Other Follow-up Examination 07/09/2010 PRISCILA PITT MD V67.59 Other Follow-up Examination 07/09/2010 PRISCILA PITT MD V67.59 Other Follow-up Examination 07/09/2010 PRISCILA PITT MD V67.59 Other Follow-up Examination 07/09/2010 PRISCILA PITT MD V67.59 Other Follow-up Examination 07/09/2010 PRISCILA PITT MD V67.59 Other Follow-up Examination 07/30/2010 BIJAN MAN DO 611.71 Breast Pain 07/30/2010 BIJAN MAN DO 611.71 Breast Pain 07/30/2010 PRISCILA PITT MD 611.71 Breast Pain 07/30/2010 SWEETIE ROD, PRISCILA 611.71 Breast Pain 07/30/2010 SWEETIE ROD, PRISCILA 611.71 Breast Pain 07/30/2010 SWEETIE ROD, PRISCILA 611.71 Breast Pain 07/30/2010 SWEETIE ROD, PRISCILA 611.71 Breast Pain 07/30/2010 SWEETIE ROD, PRISCILA 611.71 Breast Pain 07/30/2010 SWEETIE ROD, PRISCILA 611.71 Breast Pain 07/30/2010 SWEETIE ROD, PRISCILA 611.71 Breast Pain 07/30/2010 PRISCILA PITT MD 611.71 Breast Pain 07/30/2010 PRISCILA PITT MD 611.71 Breast Pain 09/22/2010 AL MAN DOA K 380.11 Acute Infection Of Pinna 09/22/2010 BIJAN MAN DO K V68.1 Issue Of Repeat Prescriptions 09/22/2010 BIJAN MAN DO K 380.11 Acute Infection Of Pinna 09/22/2010 AL MAN DOA K V68.1 Issue Of Repeat Prescriptions 09/22/2010 PRISCILA PITT MD 380.11 Acute Infection Of Pinna 09/22/2010 PRISCILA PITT MD V68.1 Issue Of Repeat Prescriptions 09/22/2010 PRISCILA PITT MD 380.11 Acute Infection Of Pinna 09/22/2010 PRISCILA PITT MD V68.1 Issue Of Repeat Prescriptions 09/22/2010 PRISCILA PITT MD 380.11 Acute Infection Of Pinna 09/22/2010 PRISCILA PITT MD V68.1 Issue Of Repeat Prescriptions 09/22/2010 PRISCILA PITT MD 380.11 Acute Infection Of Pinna 09/22/2010 PRISCILA PITT MD V68.1 Issue Of Repeat Prescriptions 09/22/2010 PRISCILA PITT MD 380.11 Acute Infection Of Pinna 09/22/2010 PRISCILA PITT MD V68.1 Issue Of Repeat Prescriptions 09/22/2010 PRISCILA PITT MD 380.11 Acute Infection Of Pinna 09/22/2010 PRISCILA PITT MD V68.1 Issue Of Repeat Prescriptions 09/22/2010 PRISCILA PITT MD 380.11 Acute Infection Of Pinna 09/22/2010 PRISCILA PITT MD V68.1 Issue Of Repeat Prescriptions 09/22/2010 PRISCILA PITT MD 380.11 Acute Infection Of Pinna 09/22/2010 PRISCILA PITT MD V68.1 Issue Of Repeat Prescriptions 09/22/2010 PRISCILA PITT MD 380.11 Acute Infection Of Pinna 09/22/2010 PRISCILA PITT MD V68.1 Issue Of Repeat Prescriptions 09/22/2010 PRISCILA PITT MD 380.11 Acute Infection Of Pinna 09/22/2010 PRISCILA PITT MD V68.1 Issue Of Repeat Prescriptions 11/11/2010 BIJAN MAN DO K 786.05 Shortness Of Breath 11/11/2010 BIJAN MAN DO 786.05 Shortness Of Breath 11/11/2010 PRISCILA PITT MD 786.05 Shortness Of Breath 11/11/2010 PRISCILA PITT MD 786.05 Shortness Of Breath 11/11/2010 PRISCILA PITT MD 786.05 Shortness Of Breath 11/11/2010 PRISCILA PITT MD 786.05 Shortness Of Breath 11/11/2010 PRISCILA PITT MD 786.05 Shortness Of Breath 11/11/2010 PRISCILA PITT MD 786.05 Shortness Of Breath 11/11/2010 PRISCILA PITT MD 786.05 Shortness Of Breath 11/11/2010 PRISCILA PITT MD 786.05 Shortness Of Breath 11/11/2010 PRISCILA PITT MD 786.05 Shortness Of Breath 11/11/2010 PRISCILA PITT MD 786.05 Shortness Of Breath 12/11/2010 BIJAN MAN DO K 787.02 Nausea Alone 12/11/2010 AL MAN DOA K 787.02 Nausea Alone 12/11/2010 PRISCILA PITT MD 787.02 Nausea Alone 12/11/2010 PRISCILA PITT MD7.02 Nausea Alone 12/11/2010 PRISCILA PITT MD 787.02 Nausea Alone 12/11/2010 PRISCILA PITT MD 787.02 Nausea Alone 12/11/2010 PRISCILA PITT MD 787.02 Nausea Alone 12/11/2010 PRISCILA PITT MD 787.02 Nausea Alone 12/11/2010 PRISCILA PITT MD 787.02 Nausea Alone 12/11/2010 PRISCILA PITT MD 787.02 Nausea Alone 12/11/2010 PRISCILA PITT MD7.02 Nausea Alone 12/11/2010 PRISCILA PITT MD7.02 Nausea Alone 03/23/2011 BIJAN MAN DO 789.06 Abdominal Pain In The Central Upper Belly (epigastric) 03/23/2011 BIJAN MAN DO 78Dinorah.06 Abdominal Pain In The Central Upper Belly (epigastric) 03/23/2011 PRISCILA PITT MD.06 Abdominal Pain In The Central Upper Belly (epigastric) 03/23/2011 PRISCILA PITT MD.06 Abdominal Pain In The Central Upper Belly (epigastric) 03/23/2011 PRISCILA PITT MD.06 Abdominal Pain In The Central Upper Belly (epigastric) 03/23/2011 PRISCILA PITT MD.06 Abdominal Pain In The Central Upper Belly (epigastric) 03/23/2011 PRISCILA PITT MD.06 Abdominal Pain In The Central Upper Belly (epigastric) 03/23/2011 PRISCILA PITT MD.06 Abdominal Pain In The Central Upper Belly (epigastric) 03/23/2011 PRISCILA PITT MD.06 Abdominal Pain In The Central Upper Belly (epigastric) 03/23/2011 PRISCILA PITT MD.06 Abdominal Pain In The Central Upper Belly (epigastric) 03/23/2011 PRISCILA PITT MD.06 Abdominal Pain In The Central Upper Belly (epigastric) 03/23/2011 PRISCILA PITT MD.06 Abdominal Pain In The Central Upper Belly (epigastric) 04/06/2011 BIJAN MAN DO 443.9 PERIPHERAL ARTERIAL DISEASE 04/06/2011 BIJAN MAN DO 443.9 PERIPHERAL ARTERIAL DISEASE 04/06/2011 PRISCILA PITT MD 443.9 PERIPHERAL ARTERIAL DISEASE 04/06/2011 PRISCILA PITT MD 44Filiberto.9 PERIPHERAL ARTERIAL DISEASE 04/06/2011 PRISCILA PITT MD 443.9 PERIPHERAL ARTERIAL DISEASE 04/06/2011 SWEETIE ROD, PRISCILA 443.9 PERIPHERAL ARTERIAL DISEASE 04/06/2011 PRISCILA PITT MD 443.9 PERIPHERAL ARTERIAL DISEASE 04/06/2011 PRISCILA PITT MD 44Filiberto.9 PERIPHERAL ARTERIAL DISEASE 04/06/2011 PRISCILA PITT MD 443.9 PERIPHERAL ARTERIAL DISEASE 04/06/2011 PRISCILA PITT MD 443.9 PERIPHERAL ARTERIAL DISEASE 04/06/2011 PRISCILA PITT MD.9 PERIPHERAL ARTERIAL DISEASE 04/06/2011 PRISCILA PITT MD.9 PERIPHERAL ARTERIAL DISEASE 06/11/2011 BIJAN MAN DO K 305.1 NONDEPENDENT TOBACCO USE DISORDER 06/11/2011 BIJAN MAN DO K 461.9 Sinusitis Acute 06/11/2011 BIJAN MAN DO K 305.1 NONDEPENDENT TOBACCO USE DISORDER 06/11/2011 BIJAN MAN DO K 461.9 Sinusitis Acute 06/11/2011 PRISCILA PITT MD 305.1 NONDEPENDENT TOBACCO USE DISORDER 06/11/2011 PRISCILA PITT MD 461.9 Sinusitis Acute 06/11/2011 PRISCILA PITT MD 305.1 NONDEPENDENT TOBACCO USE DISORDER 06/11/2011 PRISCILA PITT MD 461.9 Sinusitis Acute 06/11/2011 PRISCILA PITT MD 305.1 NONDEPENDENT TOBACCO USE DISORDER 06/11/2011 PRISCILA PITT MD 461.9 Sinusitis Acute 06/11/2011 PRISCILA PITT MD 305.1 NONDEPENDENT TOBACCO USE DISORDER 06/11/2011 PRISCILA PITT MD 461.9 Sinusitis Acute 06/11/2011 PRISCILA PITT MD 305.1 NONDEPENDENT TOBACCO USE DISORDER 06/11/2011 PRISCILA PITT MD 461.9 Sinusitis Acute 06/11/2011 PRISCILA PITT MD 305.1 NONDEPENDENT TOBACCO USE DISORDER 06/11/2011 PRISCILA PITT MD 461.9 Sinusitis Acute 06/11/2011 PRISCILA PITT MD 305.1 NONDEPENDENT TOBACCO USE DISORDER 06/11/2011 PRISCILA PITT MD 461.9 Sinusitis Acute 06/11/2011 PRISCILA PITT MD 305.1 NONDEPENDENT TOBACCO USE DISORDER 06/11/2011 PRISCILA PITT MD 461.9 Sinusitis Acute 06/11/2011 SWEETIE ROD, PRISCILA 305.1 NONDEPENDENT TOBACCO USE DISORDER 06/11/2011 PRISCILA PITT MD 461.9 Sinusitis Acute 06/11/2011 SWEETIE ROD, PRISCILA 305.1 NONDEPENDENT TOBACCO USE DISORDER 06/11/2011 PRISCILA PITT MD 461.9 Sinusitis Acute 08/26/2011 BIJAN MAN DO 268.9 VITAMIN D DEFICIENCY 08/26/2011 BIJAN MAN DO 268.9 VITAMIN D DEFICIENCY 08/26/2011 PRISCILA PITT MD 268.9 VITAMIN D DEFICIENCY 08/26/2011 PRISCILA PITT MD 268.9 VITAMIN D DEFICIENCY 08/26/2011 PRISCILA PITT MD 268.9 VITAMIN D DEFICIENCY 08/26/2011 PRISCILA PITT MD 268.9 VITAMIN D DEFICIENCY 08/26/2011 PRISCILA PITT MD 268.9 VITAMIN D DEFICIENCY 08/26/2011 PRISCILA PITT MD 268.9 VITAMIN D DEFICIENCY 08/26/2011 PRISCILA PITT MD 268.9 VITAMIN D DEFICIENCY 08/26/2011 PRISCILA PITT MD 268.9 VITAMIN D DEFICIENCY 08/26/2011 PRISCILA PITT MD 268.9 VITAMIN D DEFICIENCY 08/26/2011 PRISCILA PITT MD 268.9 VITAMIN D DEFICIENCY 01/26/2012 BIJAN MAN DO K 780.60 FEVER, UNSPECIFIED 01/26/2012 AL MAN DOA K 787.01 NAUSEA WITH VOMITING 01/26/2012 BIJAN MAN DO K 780.60 FEVER, UNSPECIFIED 01/26/2012 AL MAN DOA K 787.01 NAUSEA WITH VOMITING 01/26/2012 PRISCILA PITT MD 780.60 FEVER, UNSPECIFIED 01/26/2012 PRISCILA PITT MD 787.01 NAUSEA WITH VOMITING 01/26/2012 PRISCILA PITT MD 780.60 FEVER, UNSPECIFIED 01/26/2012 PRISCILA PITT MD 787.01 Nausea With Vomiting 01/26/2012 PRISCILA PITT MD 780.60 FEVER, UNSPECIFIED 01/26/2012 SWEETIE ROD, PRISCILA 787.01 Nausea With Vomiting 01/26/2012 SWEETIE ROD, PRISCILA 780.60 FEVER, UNSPECIFIED 01/26/2012 SWEETIE ROD, PRISCILA 787.01 Nausea With Vomiting 01/26/2012 SWEETIE ROD, PRISCILA 780.60 FEVER, UNSPECIFIED 01/26/2012 SWEETIE ROD, PRISCILA 787.01 Nausea With Vomiting 01/26/2012 SWEETIE ROD, PRISCILA 780.60 FEVER, UNSPECIFIED 01/26/2012 SWEETIE ROD, PRISCILA 787.01 Nausea With Vomiting 01/26/2012 SWEETIE ROD, PRISCILA 780.60 FEVER, UNSPECIFIED 01/26/2012 SWEETIE ROD, PRISCILA 787.01 Nausea With Vomiting 01/26/2012 SWEETIE ROD, PRISCILA 780.60 FEVER, UNSPECIFIED 01/26/2012 SWEETIE ROD, PRISCILA 787.01 Nausea With Vomiting 01/26/2012 SWEETIE ROD, PRISCILA 780.60 FEVER, UNSPECIFIED 01/26/2012 SWEETIE ROD, PRISCILA 787.01 Nausea With Vomiting 01/26/2012 SWEETIE ROD, PRISCILA 780.60 FEVER, UNSPECIFIED 01/26/2012 SWEETIE ROD, PRISCILA 787.01 Nausea With Vomiting 05/22/2012 SWEETIE ROD, PRISCILA 716.90 UNSPECIFIED ARTHROPATHY SITE UNSPECIFIED 05/22/2012 SWEETIE ROD, PRISCILA 716.90 UNSPECIFIED ARTHROPATHY SITE UNSPECIFIED 05/22/2012 SWEETIE ROD, PRISCILA 716.90 UNSPECIFIED ARTHROPATHY SITE UNSPECIFIED 05/22/2012 SWEETIE ROD, PRISCILA 716.90 UNSPECIFIED ARTHROPATHY SITE UNSPECIFIED 05/22/2012 SWEETIE ROD, PRISCILA 716.90 UNSPECIFIED ARTHROPATHY SITE UNSPECIFIED 05/22/2012 SWEETIE ROD, PRISCILA 716.90 UNSPECIFIED ARTHROPATHY SITE UNSPECIFIED 05/22/2012 SWEETIE ROD, PRISCILA 716.90 UNSPECIFIED ARTHROPATHY SITE UNSPECIFIED 05/22/2012 SWEETIE ROD, PRISCILA 716.90 UNSPECIFIED ARTHROPATHY SITE UNSPECIFIED 05/22/2012 SWEETIE ROD, PRISCILA 716.90 UNSPECIFIED ARTHROPATHY SITE UNSPECIFIED 05/22/2012 SWEETIE ROD, PRISCILA 716.90 UNSPECIFIED ARTHROPATHY SITE UNSPECIFIED 05/22/2013 SWEETIE ROD, PRISCILA 276.1 HYPOSMOLALITY AND/OR HYPONATREMIA 05/22/2013 SWEETIE ROD, PRISCILA 530.11 REFLUX ESOPHAGITIS 05/22/2013 SWEETIE ROD, PRISCILA 276.1 HYPOSMOLALITY AND/OR HYPONATREMIA 05/22/2013 SWEETIE ROD, PRISCILA 530.11 REFLUX ESOPHAGITIS 05/22/2013 SWEETIE ROD, PRISCILA 276.1 HYPOSMOLALITY AND/OR HYPONATREMIA 05/22/2013 SWEETIE ROD, PRISCILA 530.11 REFLUX ESOPHAGITIS 05/22/2013 SWEETIE ROD, PRISCILA 276.1 HYPOSMOLALITY AND/OR HYPONATREMIA 05/22/2013 SWEETIE ROD, PRISCILA 530.11 REFLUX ESOPHAGITIS 05/22/2013 SWEETIE ROD, PRISCILA 276.1 HYPOSMOLALITY AND/OR HYPONATREMIA 05/22/2013 SWEETIE ROD, PRISCILA 530.11 REFLUX ESOPHAGITIS 05/22/2013 SWEETIE ROD, PRISCILA 276.1 HYPOSMOLALITY AND/OR HYPONATREMIA 05/22/2013 SWEETIE ROD, PRISCILA 530.11 REFLUX ESOPHAGITIS 05/22/2013 SWEETIE ROD, PRISCILA 276.1 HYPOSMOLALITY AND/OR HYPONATREMIA 05/22/2013 SWEETIE ROD, PRISCILA 530.11 REFLUX ESOPHAGITIS 12/05/2013 EMERITA ROD, MOY T Ot 272.0 12/05/2013 EMERITA ROD, MOY T Ot 276.1 12/05/2013 EMERITA ROD, MOY T Ot 303.90 12/05/2013 EMERITA ROD, MOY T Ot 401.9 12/05/2013 EMERITA ROD, MOY T Ot 433.10 12/05/2013 EMERITA ROD, MOY T Ot 530.81 12/05/2013 EMERITA ROD, MOY T Ot 716.90 12/05/2013 EMERITA ROD, MOY T Ot 737.30 12/05/2013 EMERITA ROD, MOY T Ot 873.8 12/05/2013 EMERITA ROD, MOY T Ot E888.1 03/08/2014 PRISCILA PITT MD 466.0 ACUTE BRONCHITIS 03/08/2014 PRISCILA PITT MD 466.0 ACUTE BRONCHITIS 03/08/2014 SWEETIE ROD, PRISCILA 466.0 ACUTE BRONCHITIS 03/08/2014 SWEETIE ROD, PRISCILA 466.0 ACUTE BRONCHITIS 11/13/2014 Ot 786.6 11/13/2014 Ot 722.52 11/13/2014 Ot 272.4 11/13/2014 Ot 401.9 11/13/2014 Ot 414.00 11/13/2014 Ot 443.9 11/13/2014 Ot 530.81 11/13/2014 Ot V58.63 11/13/2014 Ot V58.69 11/13/2014 Ot 305.1 11/13/2014 Ot 443.9 12/11/2014 KATHY ROD, LA Stevens Ot 443.9 12/23/2014 KATHY ROD, [place] Stevens Ot 443.9 01/28/2015 BECCA ROD, SHIN Ot 443.9 01/28/2015 BECCA ROD, SHIN Ot V72.63 01/28/2015 BECCA ROD, SHIN Ot V72.83 02/07/2015 BECCA ROD, SHIN Ot 443.9 02/07/2015 BECCA ROD, SHIN Ot V72.63 02/07/2015 BECCA ROD, SHIN Ot V72.83 04/25/2015 BECCA ROD, SHIN Ot I70.211 04/25/2015 BECCA ROD, SHIN Ot Z01.810 04/25/2015 BECCA ROD, SHIN Ot Z01.818 01/02/2016 SWEETIE ROD, PRISCILA Pena Ot M47.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, LUMBAR REGION 01/02/2016 SWEETIE ROD, PRISCILA Pena Ot M47.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, LUMBAR REGION 01/27/2016 SWEETIE ROD, PRISCILA Pena Ot M47.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, LUMBAR REGION 05/05/2016 JOYCE MARRUFO Ot F17.210 NICOTINE DEPENDENCE, CIGARETTES, UNCOMPL 05/05/2016 JOYCE MARRUFO Ot I10 ESSENTIAL (PRIMARY) HYPERTENSION 05/05/2016 JOYCE MARRUFO Ot R04.0 EPISTAXIS 05/05/2016 JOYCE MARRUFO Ot Z79.02 UTILITY PIPE LAYER (CURRENT) USE OF ANTITHROMBOTI 05/05/2016 JOYCE MARRUFO Ot Z79.82 PENITENTIARY (CURRENT) USE OF ASPIRIN 05/05/2016 JOYCE MARRUFO Ot Z79.899 OTHER UTILITY PIPE LAYER (CURRENT) DRUG THERAPY 05/06/2016 JOYCE MARRUFO Ot F17.210 NICOTINE DEPENDENCE, CIGARETTES, UNCOMPL 05/06/2016 JOYCE MARRUFO Ot I10 ESSENTIAL (PRIMARY) HYPERTENSION 05/06/2016 JOYCE MARRUFO Ot R04.0 EPISTAXIS 05/06/2016 JOYCE MARRUFO Ot Z79.02 UTILITY PIPE LAYER (CURRENT) USE OF ANTITHROMBOTI 05/06/2016 JOYCE MARRUFO Ot Z79.82 UTILITY PIPE LAYER (CURRENT) USE OF ASPIRIN 05/06/2016 JOYCE MARRUFO Ot Z79.899 OTHER PENITENTIARY (CURRENT) DRUG THERAPY 05/09/2016 JERALD JONES MD Ot D64.9 ANEMIA, UNSPECIFIED 05/09/2016 JERALD JONES MD Ot E87.1 HYPO-OSMOLALITY AND HYPONATREMIA 05/09/2016 JERALD JONES MD Ot F17.210 NICOTINE DEPENDENCE, CIGARETTES, UNCOMPL 05/09/2016 JERALD JONES MD Ot R04.0 EPISTAXIS 05/09/2016 JERALD JONES MD Ot Z79.02 UTILITY PIPE LAYER (CURRENT) USE OF ANTITHROMBOTI 05/15/2016 JERALD JONES MD Ot D64.9 ANEMIA, UNSPECIFIED 05/15/2016 JERALD JONES MD Ot E87.1 HYPO-OSMOLALITY AND HYPONATREMIA 05/15/2016 JERALD JONES MD Ot F17.210 NICOTINE DEPENDENCE, CIGARETTES, UNCOMPL 05/15/2016 JERALD JONES MD Ot R04.0 EPISTAXIS 05/15/2016 JERALD JONES MD Ot Z79.02 PENITENTIARY (CURRENT) USE OF ANTITHROMBOTI 05/15/2016 ELIAS FORTE MD Ot F17.210 NICOTINE DEPENDENCE, CIGARETTES, UNCOMPL 05/15/2016 ELIAS FORTE MD Ot I10 ESSENTIAL (PRIMARY) HYPERTENSION 05/15/2016 ELIAS FORTE MD Ot R04.0 EPISTAXIS 05/15/2016 ELIAS FORTE MD Ot Z79.02 UTILITY PIPE LAYER (CURRENT) USE OF ANTITHROMBOTI 05/15/2016 ELIAS FORTE MD Ot Z79.82 UTILITY PIPE LAYER (CURRENT) USE OF ASPIRIN 05/15/2016 ELIAS FORTE MD Ot Z79.899 OTHER UTILITY PIPE LAYER (CURRENT) DRUG THERAPY 05/15/2016 ELIAS FORTE MD Ot Z95.1 PRESENCE OF AORTOCORONARY BYPASS GRAFT 05/15/2016 ELIAS FORTE MD Ot Z95.5 PRESENCE OF CORONARY ANGIOPLASTY IMPLANT 10/29/2016 Ot 722.52 LUMB/ LUMBOSAC DISC DEGEN 12/06/2016 JUAN RAY DO Ot S72.001A FRACTURE OF UNSP PART OF NECK OF RIGHT F 12/06/2016 JUAN RAY DO Ot D62 ACUTE POSTHEMORRHAGIC ANEMIA 12/06/2016 JUAN RAY DO Ot E78.00 PURE HYPERCHOLESTEROLEMIA, UNSPECIFIED 12/06/2016 JUAN RAY DO Ot E87.1 HYPO-OSMOLALITY AND HYPONATREMIA 12/06/2016 JUAN RAY DO Ot F17.210 NICOTINE DEPENDENCE, CIGARETTES, UNCOMPL 12/06/2016 JUAN RAY DO Ot H91.90 UNSPECIFIED HEARING LOSS, UNSPECIFIED EA 12/06/2016 JUAN RAY DO Ot I10 ESSENTIAL (PRIMARY) HYPERTENSION 12/06/2016 JUAN RAY DO Ot I25.10 ATHSCL HEART DISEASE OF [place] CORONARY 12/06/2016 JUAN RAY DO Ot J44.9 CHRONIC OBSTRUCTIVE PULMONARY DISEASE, U 12/06/2016 JUAN RAY DO Ot K21.9 GASTRO-ESOPHAGEAL REFLUX DISEASE WITHOUT 12/06/2016 JUAN RAY DO Ot L02.31 CUTANEOUS ABSCESS OF BUTTOCK 12/06/2016 JUAN RAY DO Ot M19.91 PRIMARY OSTEOARTHRITIS, UNSPECIFIED SITE 12/06/2016 JUAN RAY DO Ot M41.9 SCOLIOSIS, UNSPECIFIED 12/06/2016 JUAN RAY DO Ot M54.5 LOW BACK PAIN 12/06/2016 JUAN RAY DO Ot S40.021A CONTUSION OF RIGHT UPPER ARM, INITIAL EN 12/06/2016 JUAN RAY DO Ot S40.022A CONTUSION OF LEFT UPPER ARM, INITIAL ENC 12/06/2016 JUAN RAY DO Ot S72.141A DISPLACED INTERTROCHANTERIC FRACTURE OF 12/06/2016 JUAN RAY DO Ot W18.09XA STRIKING AGAINST OTH OBJECT W SUBSEQUENT 12/06/2016 JUAN RAY DO Ot Y92.000 [facility] OF [facility] NON[facility] (PRIVATE) R 12/06/2016 JUAN RAY DO Ot Z79.899 OTHER PENITENTIARY (CURRENT) DRUG THERAPY 12/06/2016 JUAN RAY DO Ot Z95.1 PRESENCE OF AORTOCORONARY BYPASS GRAFT 12/06/2016 JUAN RAY DO Ot D62 ACUTE POSTHEMORRHAGIC ANEMIA 12/06/2016 JUAN RAY DO Ot E78.00 PURE HYPERCHOLESTEROLEMIA, UNSPECIFIED 12/06/2016 SAMANTHA RAY DOI Ot E87.1 HYPO-OSMOLALITY AND HYPONATREMIA 12/06/2016 JUAN RAY DO Ot F17.210 NICOTINE DEPENDENCE, CIGARETTES, UNCOMPL 12/06/2016 SAMANTHA RAY DOI Ot H91.90 UNSPECIFIED HEARING LOSS, UNSPECIFIED EA 12/06/2016 JUAN RAY DO Ot I10 ESSENTIAL (PRIMARY) HYPERTENSION 12/06/2016 JUAN RAY DO Ot I25.10 ATHSCL HEART DISEASE OF [place] CORONARY 12/06/2016 SAMANTHA RAY DOI Ot J44.9 CHRONIC OBSTRUCTIVE PULMONARY DISEASE, U 12/06/2016 SAMANTHA RAY DOI Ot K21.9 GASTRO-ESOPHAGEAL REFLUX DISEASE WITHOUT 12/06/2016 SAMANTHA RAY DOI Ot L02.31 CUTANEOUS ABSCESS OF BUTTOCK 12/06/2016 SAMANTHA RAY DOI Ot M19.91 PRIMARY OSTEOARTHRITIS, UNSPECIFIED SITE 12/06/2016 JUAN RAY DO Ot M41.9 SCOLIOSIS, UNSPECIFIED 12/06/2016 SAMANTHA RAY DOI Ot M54.5 LOW BACK PAIN 12/06/2016 JUAN RAY DO Ot S40.021A CONTUSION OF RIGHT UPPER ARM, INITIAL EN 12/06/2016 JUAN RAY DO Ot S40.022A CONTUSION OF LEFT UPPER ARM, INITIAL ENC 12/06/2016 JUAN RAY DO Ot S72.141A DISPLACED INTERTROCHANTERIC FRACTURE OF 12/06/2016 JUAN RAY DO Ot W18.09XA STRIKING AGAINST OTH OBJECT W SUBSEQUENT 12/06/2016 JUAN RAY DO Ot Y92.000 KITCHEN OF [facility] (PRIVATE) R 12/06/2016 JUAN RAY DO Ot Z79.899 OTHER PENITENTIARY (CURRENT) DRUG THERAPY 12/06/2016 JUAN RAY DO Ot Z95.1 PRESENCE OF AORTOCORONARY BYPASS GRAFT 12/07/2016 SAMANTHA RAY DOI Ot D62 ACUTE POSTHEMORRHAGIC ANEMIA 12/07/2016 JUAN RAY DO Ot E78.00 PURE HYPERCHOLESTEROLEMIA, UNSPECIFIED 12/07/2016 JUAN RAY DO Ot E87.1 HYPO-OSMOLALITY AND HYPONATREMIA 12/07/2016 SAMANTHA RAY DOI Ot F17.210 NICOTINE DEPENDENCE, CIGARETTES, UNCOMPL 12/07/2016 SAMANTHA RAY DOI Ot H91.90 UNSPECIFIED HEARING LOSS, UNSPECIFIED EA 12/07/2016 SAMANTHA RAY DOI Ot I10 ESSENTIAL (PRIMARY) HYPERTENSION 12/07/2016 SAMANTHA RAY DOI Ot I25.10 ATHSCL HEART DISEASE OF [place] CORONARY 12/07/2016 JUAN RAY DO Ot J44.9 CHRONIC OBSTRUCTIVE PULMONARY DISEASE, U 12/07/2016 SAMANTHA RAY DOI Ot K21.9 GASTRO-ESOPHAGEAL REFLUX DISEASE WITHOUT 12/07/2016 SAMANTHA RAY DOI Ot L02.31 CUTANEOUS ABSCESS OF BUTTOCK 12/07/2016 SAMANTHA RAY DOI Ot M19.91 PRIMARY OSTEOARTHRITIS, UNSPECIFIED SITE 12/07/2016 SAMANTHA RAY DOI Ot M41.9 SCOLIOSIS, UNSPECIFIED 12/07/2016 SAMANTHA RAY DOI Ot M54.5 LOW BACK PAIN 12/07/2016 JUAN RAY DO Ot R29.898 OT SYMPTOMS AND SIGNS INVOLVING THE MUS 12/07/2016 JUAN RAY DO Ot S40.021A CONTUSION OF RIGHT UPPER ARM, INITIAL EN 12/07/2016 JUAN RAY DO Ot S40.022A CONTUSION OF LEFT UPPER ARM, INITIAL ENC 12/07/2016 JUAN RAY DO Ot S72.141A DISPLACED INTERTROCHANTERIC FRACTURE OF 12/07/2016 JUAN RAY DO Ot W18.09XA STRIKING AGAINST OTH OBJECT W SUBSEQUENT 12/07/2016 JUAN RAY DO Ot Y92.000 KITCHEN OF [facility] NON[facility] (PRIVATE) R 12/07/2016 JUAN RAY DO Ot Z79.899 OTHER PENITENTIARY (CURRENT) DRUG THERAPY 12/07/2016 JUAN RAY DO Ot Z95.1 PRESENCE OF AORTOCORONARY BYPASS GRAFT 12/14/2016 MAYKEL HUERTAS MD Ot D62 ACUTE POSTHEMORRHAGIC ANEMIA 12/14/2016 MAYKEL HUERTAS MD Ot E78.00 PURE HYPERCHOLESTEROLEMIA, UNSPECIFIED 12/14/2016 MAYKEL HUERTAS MD Ot E87.1 HYPO-OSMOLALITY AND HYPONATREMIA 12/14/2016 MAYKEL HUERTAS MD Ot E87.6 HYPOKALEMIA 12/14/2016 MAYKEL HUERTAS MD Ot F17.200 NICOTINE DEPENDENCE, UNSPECIFIED, UNCOMP 12/14/2016 MAYKEL HUERTAS MD Ot G31.84 MILD COGNITIVE IMPAIRMENT, SO STATED 12/14/2016 MAYKEL HUERTAS MD Ot H91.10 PRESBYCUSIS, UNSPECIFIED EAR 12/14/2016 MAYKEL HUERTAS MD Ot I10 ESSENTIAL (PRIMARY) HYPERTENSION 12/14/2016 MAYKEL HUERTAS MD Ot I25.10 ATHSCL HEART DISEASE OF [place] CORONARY 12/14/2016 MAYKEL HUERTAS MD E Ot J44.9 CHRONIC OBSTRUCTIVE PULMONARY DISEASE, U 12/14/2016 MAYKEL HUERTAS MD Ot K21.9 GASTRO-ESOPHAGEAL REFLUX DISEASE WITHOUT 12/14/2016 MAYKEL HUERTAS MD Ot M16.11 UNILATERAL PRIMARY OSTEOARTHRITIS, RIGHT 12/14/2016 MAYKEL HUERTAS MD E Ot M41.9 SCOLIOSIS, UNSPECIFIED 12/14/2016 MAYKEL HUERTAS MD Ot M54.5 LOW BACK PAIN 12/14/2016 MAYKEL HUERTAS MD Ot R41.3 OTHER AMNESIA 12/14/2016 MAYKEL HUERTAS MD E Ot R53.81 OTHER MALAISE 12/14/2016 MAYKEL HUERTAS MD E Ot S72.141D DISPL INTERTROCH FX R FEMUR, SUBS FOR CL 12/14/2016 MAYKEL HUERTAS MD Ot Z95.1 PRESENCE OF AORTOCORONARY BYPASS GRAFT 12/14/2016 MAYKEL HUERTAS MD Ot Z95.5 PRESENCE OF CORONARY ANGIOPLASTY IMPLANT 12/20/2016 MAYKEL HUERTAS MD Ot D62 ACUTE POSTHEMORRHAGIC ANEMIA 12/20/2016 MAYKEL HUERTAS MD Ot E78.00 PURE HYPERCHOLESTEROLEMIA, UNSPECIFIED 12/20/2016 HUERTAS MD, MAYKEL E Ot E87.1 HYPO-OSMOLALITY AND HYPONATREMIA 12/20/2016 MAYKEL HUERTAS MD E Ot E87.6 HYPOKALEMIA 12/20/2016 MAYKEL HUERTAS MD E Ot F17.200 NICOTINE DEPENDENCE, UNSPECIFIED, UNCOMP 12/20/2016 MAYKEL HUERTAS MD E Ot G31.84 MILD COGNITIVE IMPAIRMENT, SO STATED 12/20/2016 MAYKEL HUERTAS MD E Ot H91.10 PRESBYCUSIS, UNSPECIFIED EAR 12/20/2016 MAYKEL HUERTAS MD E Ot I10 ESSENTIAL (PRIMARY) HYPERTENSION 12/20/2016 MAYKEL HUERTAS MD E Ot I25.10 ATHSCL HEART DISEASE OF [place] CORONARY 12/20/2016 MAYKEL HUERTAS MD E Ot J44.9 CHRONIC OBSTRUCTIVE PULMONARY DISEASE, U 12/20/2016 MAYKEL HUERTAS MD E Ot K21.9 GASTRO-ESOPHAGEAL REFLUX DISEASE WITHOUT 12/20/2016 MAYKEL HUERTAS MD E Ot M16.11 UNILATERAL PRIMARY OSTEOARTHRITIS, RIGHT 12/20/2016 MAYKEL HUERTAS MD E Ot M41.9 SCOLIOSIS, UNSPECIFIED 12/20/2016 MAYKEL HUERTAS MD E Ot M54.5 LOW BACK PAIN 12/20/2016 MAYKEL HUERTAS MD E Ot R41.3 OTHER AMNESIA 12/20/2016 MAYKEL HUERTAS MD E Ot R53.81 OTHER MALAISE 12/20/2016 MAYKEL HUERTAS MD E Ot S72.141D DISPL INTERTROCH FX R FEMUR, SUBS FOR CL 12/20/2016 MAYKEL HUERTAS MD E Ot Z95.1 PRESENCE OF AORTOCORONARY BYPASS GRAFT 12/20/2016 MAYKEL HUERTAS MD E Ot Z95.5 PRESENCE OF CORONARY ANGIOPLASTY IMPLANT 12/21/2016 JOHANN HUERTAS MDIC E Ot D62 ACUTE POSTHEMORRHAGIC ANEMIA 12/21/2016 MAYKEL HUERTAS MD E Ot E78.00 PURE HYPERCHOLESTEROLEMIA, UNSPECIFIED 12/21/2016 MAYKEL HUERTAS MD E Ot E87.1 HYPO-OSMOLALITY AND HYPONATREMIA 12/21/2016 MAYKEL HUERTAS MD E Ot E87.6 HYPOKALEMIA 12/21/2016 MAYKEL HUERTAS MD E Ot F17.200 NICOTINE DEPENDENCE, UNSPECIFIED, UNCOMP 12/21/2016 MAYKEL HUERTAS MD E Ot G31.84 MILD COGNITIVE IMPAIRMENT, SO STATED 12/21/2016 MAYKEL HUERTAS MD E Ot H91.10 PRESBYCUSIS, UNSPECIFIED EAR 12/21/2016 MAYKEL HUERTAS MD E Ot I10 ESSENTIAL (PRIMARY) HYPERTENSION 12/21/2016 MAYKEL HUERTAS MD E Ot I25.10 ATHSCL HEART DISEASE OF [place] CORONARY 12/21/2016 MAYKEL HUERTAS MD E Ot J44.9 CHRONIC OBSTRUCTIVE PULMONARY DISEASE, U 12/21/2016 MAYKEL HUERTAS MD Ot K21.9 GASTRO-ESOPHAGEAL REFLUX DISEASE WITHOUT 12/21/2016 MAYKEL HUERTAS MD E Ot M16.11 UNILATERAL PRIMARY OSTEOARTHRITIS, RIGHT 12/21/2016 MAYKEL HUERTAS MD E Ot M41.9 SCOLIOSIS, UNSPECIFIED 12/21/2016 MAYKEL HUERTAS MD E Ot M54.5 LOW BACK PAIN 12/21/2016 MAYKEL HUERTAS MD E Ot R41.3 OTHER AMNESIA 12/21/2016 MAYKEL HUERTAS MD E Ot R53.81 OTHER MALAISE 12/21/2016 MAYKEL HUERTAS MD E Ot S72.141D DISPL INTERTROCH FX R FEMUR, SUBS FOR CL 12/21/2016 MAYKEL HUERTAS MD E Ot Z95.1 PRESENCE OF AORTOCORONARY BYPASS GRAFT 12/21/2016 MAYKEL HUERTAS MD E Ot Z95.5 PRESENCE OF CORONARY ANGIOPLASTY IMPLANT 12/21/2016 MAYKEL HUERTAS MD E Ot D62 ACUTE POSTHEMORRHAGIC ANEMIA 12/21/2016 JOHANN HUERTAS MDIC E Ot E78.00 PURE HYPERCHOLESTEROLEMIA, UNSPECIFIED 12/21/2016 MAYKEL HUERTAS MD E Ot E87.1 HYPO-OSMOLALITY AND HYPONATREMIA 12/21/2016 MAYKEL HUERTAS MD E Ot E87.6 HYPOKALEMIA 12/21/2016 JOHANN HUERTAS MDIC E Ot F17.200 NICOTINE DEPENDENCE, UNSPECIFIED, UNCOMP 12/21/2016 MAYKEL HUERTAS MD E Ot G31.84 MILD COGNITIVE IMPAIRMENT, SO STATED 12/21/2016 MAYKEL HUERTAS MD E Ot H91.10 PRESBYCUSIS, UNSPECIFIED EAR 12/21/2016 MAYKEL HUERTAS MD E Ot I10 ESSENTIAL (PRIMARY) HYPERTENSION 12/21/2016 MAYKEL HUERTAS MD E Ot I25.10 ATHSCL HEART DISEASE OF [place] CORONARY 12/21/2016 MAYKEL HUERTAS MD E Ot J44.9 CHRONIC OBSTRUCTIVE PULMONARY DISEASE, U 12/21/2016 HUERTAS MD, MAYKEL E Ot K21.9 GASTRO-ESOPHAGEAL REFLUX DISEASE WITHOUT 12/21/2016 JOHANN HUERTAS MDIC E Ot M16.11 UNILATERAL PRIMARY OSTEOARTHRITIS, RIGHT 12/21/2016 JOHANN HUERTAS MDIC E Ot M41.9 SCOLIOSIS, UNSPECIFIED 12/21/2016 JOHANN HUERTAS MDIC E Ot M54.5 LOW BACK PAIN 12/21/2016 MAYKEL HUERTAS MD E Ot R41.3 OTHER AMNESIA 12/21/2016 JOHANN HUERTAS MDIC E Ot R53.81 OTHER MALAISE 12/21/2016 JOHANN HUERTAS MDIC E Ot S72.141D DISPL INTERTROCH FX R FEMUR, SUBS FOR CL 12/21/2016 MAYKEL HUERTAS MD E Ot Z95.1 PRESENCE OF AORTOCORONARY BYPASS GRAFT 12/21/2016 MAKYEL HUERTAS MD E Ot Z95.5 PRESENCE OF CORONARY ANGIOPLASTY IMPLANT 12/23/2016 MAYKEL HUERTAS MD E Ot B35.1 TINEA UNGUIUM 12/23/2016 MAYKEL HUERTAS MD E Ot D62 ACUTE POSTHEMORRHAGIC ANEMIA 12/23/2016 JOHANN HUERTAS MDIC E Ot E78.00 PURE HYPERCHOLESTEROLEMIA, UNSPECIFIED 12/23/2016 MAYKEL HUERTAS MD E Ot E87.1 HYPO-OSMOLALITY AND HYPONATREMIA 12/23/2016 MAYKEL HUERTAS MD E Ot E87.6 HYPOKALEMIA 12/23/2016 JOHANN HUERTAS MDIC E Ot F17.200 NICOTINE DEPENDENCE, UNSPECIFIED, UNCOMP 12/23/2016 JOHANN HUERTAS MDIC E Ot G31.84 MILD COGNITIVE IMPAIRMENT, SO STATED 12/23/2016 MAYKEL HUERTAS MD E Ot G60.9 HEREDITARY AND IDIOPATHIC NEUROPATHY, UN 12/23/2016 JOHANN HUERTAS MDIC E Ot H91.10 PRESBYCUSIS, UNSPECIFIED EAR 12/23/2016 JOHANN HUETRAS MDIC E Ot I10 ESSENTIAL (PRIMARY) HYPERTENSION 12/23/2016 MAYKEL HUERTAS MD E Ot I25.10 ATHSCL HEART DISEASE OF [place] CORONARY 12/23/2016 MAYKEL HUERTAS MD E Ot I73.9 PERIPHERAL VASCULAR DISEASE, UNSPECIFIED 12/23/2016 MAYKEL HUERTAS MD E Ot J44.9 CHRONIC OBSTRUCTIVE PULMONARY DISEASE, U 12/23/2016 MAYKEL HUERTAS MD E Ot K21.9 GASTRO-ESOPHAGEAL REFLUX DISEASE WITHOUT 12/23/2016 MAYKEL HUERTAS MD E Ot M11.261 OTHER CHONDROCALCINOSIS, RIGHT KNEE 12/23/2016 MAYKEL HUERTAS MD E Ot M16.11 UNILATERAL PRIMARY OSTEOARTHRITIS, RIGHT 12/23/2016 MAYKEL HUERTAS MD E Ot M17.11 UNILATERAL PRIMARY OSTEOARTHRITIS, RIGHT 12/23/2016 MAYKEL HUERTAS MD E Ot M20.5X1 OTHER DEFORMITIES OF TOE(S) (ACQUIRED), 12/23/2016 MAYKEL HUERTAS MD E Ot M41.9 SCOLIOSIS, UNSPECIFIED 12/23/2016 MAYKEL HUERTAS MD E Ot M54.5 LOW BACK PAIN 12/23/2016 MAYKEL HUERTAS MD E Ot R41.3 OTHER AMNESIA 12/23/2016 MAYKEL HUERTAS MD E Ot R53.81 OTHER MALAISE 12/23/2016 MAYKEL HUERTAS MD E Ot S72.141D DISPL INTERTROCH FX R FEMUR, SUBS FOR CL 12/23/2016 MAYKEL HUERTAS MD Ot Z95.1 PRESENCE OF AORTOCORONARY BYPASS GRAFT 12/23/2016 MAYKEL HUERTAS MD Ot Z95.5 PRESENCE OF CORONARY ANGIOPLASTY IMPLANT 02/03/2017 Priscila Pitt 401.0 MALIGNANT ESSENTIAL HYPERTENSION 02/03/2017 Priscila Pitt 491.20 OBSTRUCTIVE CHRONIC BRONCHITIS, WITHOUT EXACERBATION 02/03/2017 Priscila Pitt 719.7 02/03/2017 Priscila Pitt 728.87 MUSCLE WEAKNESS (GENERALIZED) 02/03/2017 Priscila Pitt I10 ESSENTIAL (PRIMARY) HYPERTENSION 02/03/2017 Priscila Pitt J44.9 CHRONIC OBSTRUCTIVE PULMONARY DISEASE, UNSPECIFIED 02/03/2017 Priscila Pitt M62.81 MUSCLE WEAKNESS (GENERALIZED) 02/03/2017 Priscila Pitt R26.2 DIFFICULTY IN WALKING, NOT ELSEWHERE CLASSIFIED 02/03/2017 Priscila iPtt S72.111D DISP FX OF GREATER TROCHANTER OF R FEMR, 7THD 02/03/2017 Priscila Pitt V54.13 02/03/2017 Priscila Pitt V54.89 OTHER ORTHOPEDIC AFTERCARE 02/03/2017 Priscila Pitt Z47.89 ENCOUNTER FOR OTHER ORTHOPEDIC AFTERCARE Procedures Code [place] [address] ROUTINE VENIPUNCTURE 04/19/[id number] GFR CALC (RESULT ONLY) 04/19/2013 93143 CMP 04/19/2013 85722 LIPID PANEL 04/19/2013 16616 ROUTINE VENIPUNCTURE 05/21/[id number] GFR CALC (RESULT ONLY) 05/21/2013 93472 BMP 05/21/2013 34163 ROUTINE VENIPUNCTURE 08/20/2013 92194 BMP 08/20/[id number] GFR CALC (RESULT ONLY) 08/20/2013 65627 ROUTINE VENIPUNCTURE 05/27/[id number] GFR CALC (RESULT ONLY) 05/27/2014 31845 CMP 05/27/2014 96313 LIPID PANEL 05/27/2014 [id number] REPOSITION R UP FEMUR WITH INTRAMED FIX, 12/03/2016 Results Test Result Range Complete blood count (CBC) with automated white blood cell (WBC) differential - 05/09/16 10:40 Blood leukocytes automated count (number/volume) 6.5 10*3/uL 4.3-11.0 Blood erythrocytes automated count (number/volume) 2.92 10*6/uL 4.35-5.85 Venous blood hemoglobin measurement (mass/volume) 10.2 g/dL 13.3-17.7 Blood hematocrit (volume fraction) 29 % 40-54 Automated erythrocyte mean corpuscular volume 99 [foz_us] 80-99 Automated erythrocyte mean corpuscular hemoglobin (mass per erythrocyte) 35 pg 25-34 Automated erythrocyte mean corpuscular hemoglobin concentration measurement ( mass/volume) 35 g/dL 32-36 Automated erythrocyte distribution width ratio 12.5 % 10.0-14.5 Automated blood platelet count (count/volume) 280 10*3/uL 130-400 Automated blood platelet mean volume measurement 8.8 [foz_us] 7.4-10.4 Automated blood neutrophils/100 leukocytes 63 % 42-75 Automated blood lymphocytes/100 leukocytes 26 % 12-44 Blood monocytes/100 leukocytes 10 % 0-12 Automated blood eosinophils/100 leukocytes 1 % 0-10 Automated blood basophils/100 leukocytes 1 % 0-10 Blood neutrophils automated count (number/volume) 4.1 10*3 1.8-7.8 Blood lymphocytes automated count (number/volume) 1.7 10*3 1.0-4.0 Blood monocytes automated count (number/volume) 0.7 10*3 0.0-1.0 Automated eosinophil count 0.1 10*3/uL 0.0-0.3 Automated blood basophil count (count/volume) 0.0 10*3/uL 0.0-0.1 PT panel in platelet poor plasma by coagulation assay - 05/09/16 10:40 Prothrombin time (PT) in platelet poor plasma by coagulation assay 11.8 s 12.2-14.7 INR in platelet poor plasma or blood by coagulation assay 0.9 0.8-1.4 Comprehensive metabolic panel - 05/09/16 10:40 Serum or plasma sodium measurement (moles/volume) 126 mmol/L 135-145 Serum or plasma potassium measurement (moles/volume) 3.9 mmol/L 3.6-5.0 Serum or plasma chloride measurement (moles/volume) 96 mmol/L 98-107 Carbon dioxide 22 mmol/L 21-32 Serum or plasma anion gap determination (moles/volume) 8 mmol/L 5-14 Serum or plasma urea nitrogen measurement (mass/volume) 8 mg/dL 7-18 Serum or plasma creatinine measurement (mass/volume) 0.60 mg/dL 0.60-1.30 Serum or plasma urea nitrogen/creatinine mass ratio 13 NRG Serum or plasma creatinine measurement with calculation of estimated glomerular filtration rate > NRG Serum or plasma glucose measurement (mass/volume) 99 mg/dL 70-105 Serum or plasma calcium measurement (mass/volume) 8.8 mg/dL 8.5-10.1 Serum or plasma total bilirubin measurement (mass/volume) 0.4 mg/dL 0.1-1.0 Serum or plasma alkaline phosphatase measurement (enzymatic activity/volume) 67 U/L 40-136 Serum or plasma aspartate aminotransferase measurement (enzymatic activity/ volume) 29 U/L 5-34 Serum or plasma alanine aminotransferase measurement (enzymatic activity/volume ) 19 U/L 0-55 Serum or plasma protein measurement (mass/volume) 6.1 g/dL 6.4-8.2 Serum or plasma albumin measurement (mass/volume) 4.1 g/dL 3.2-4.5 Anemia Profile B - 05/11/16 10:22 WBC 8.2 x10E3/uL 3.4-10.8 RBC 2.45 x10E6/uL 4.14-5.80 Hemoglobin 8.9 g/dL 12.6-17.7 Hematocrit 25.2 % 37.5-51.0 MCV 103 fL 79-97 MCH 36.3 pg 26.6-33.0 MCHC 35.3 g/dL 31.5-35.7 RDW 13.8 % 12.3-15.4 Platelets 313 x10E3/uL 150-379 Neutrophils 68 % Lymphs 21 % Monocytes 9 % Eos 1 % Basos 1 % Neutrophils (Absolute) 5.6 x10E3/uL 1.4-7.0 Lymphs (Absolute) 1.7 x10E3/uL 0.7-3.1 Monocytes(Absolute) 0.8 x10E3/uL 0.1-0.9 Eos (Absolute) 0.1 x10E3/uL 0.0-0.4 Baso (Absolute) 0.0 x10E3/uL 0.0-0.2 Immature Granulocytes 0 % Immature Grans (Abs) 0.0 x10E3/uL 0.0-0.1 Vitamin B12 324 pg/mL 211-946 Folate (Folic Acid), Serum 12.5 ng/mL >3.0 Iron Bind.Cap.(TIBC) 266 ug/dL 250-450 UIBC 239 ug/dL 111-343 Iron, Serum 27 ug/dL 38-169 Iron Saturation 10 % 15-55 Ferritin, Serum 76 ng/mL 30-400 Reticulocyte Count 4.0 % 0.6-2.6 Basic Metabolic Panel (8) - 05/11/16 10:22 Glucose, Serum 81 mg/dL 65-99 BUN 5 mg/dL 8-27 Creatinine, Serum 0.51 mg/dL 0.76-1.27 eGFR If NonAfricn Am 113 mL/min/1.73 >59 eGFR If Africn Am 130 mL/min/1.73 >59 BUN/Creatinine Ratio 10 10-22 Sodium, Serum 130 mmol/L 134-144 Potassium, Serum 4.1 mmol/L 3.5-5.2 Chloride, Serum 92 mmol/L 96-106 Carbon Dioxide, Total 21 mmol/L 18-29 Calcium, Serum 8.7 mg/dL 8.6-10.2 B-Type Natriuretic Peptide - 05/17/16 14:25 B-Type Natriuretic Peptide 109.0 pg/mL 0.0-100.0 CBC With Differential/Platelet - 05/17/16 14:25 WBC 6.1 x10E3/uL 3.4-10.8 RBC 2.73 x10E6/uL 4.14-5.80 Hemoglobin 9.2 g/dL 12.6-17.7 Hematocrit 28.5 % 37.5-51.0 MCV 104 fL 79-97 MCH 33.7 pg 26.6-33.0 MCHC 32.3 g/dL 31.5-35.7 RDW 14.3 % 12.3-15.4 Platelets 417 x10E3/uL 150-379 Neutrophils 49 % Lymphs 37 % Monocytes 10 % Eos 2 % Basos 1 % Neutrophils (Absolute) 3.1 x10E3/uL 1.4-7.0 Lymphs (Absolute) 2.3 x10E3/uL 0.7-3.1 Monocytes(Absolute) 0.6 x10E3/uL 0.1-0.9 Eos (Absolute) 0.2 x10E3/uL 0.0-0.4 Baso (Absolute) 0.0 x10E3/uL 0.0-0.2 Immature Granulocytes 1 % Immature Grans (Abs) 0.0 x10E3/uL 0.0-0.1 CBC With Differential/Platelet - 05/24/16 09:54 WBC 8.4 x10E3/uL 3.4-10.8 RBC 3.12 x10E6/uL 4.14-5.80 Hemoglobin 10.6 g/dL 12.6-17.7 Hematocrit 32.3 % 37.5-51.0 MCV 104 fL 79-97 MCH 34.0 pg 26.6-33.0 MCHC 32.8 g/dL 31.5-35.7 RDW 14.2 % 12.3-15.4 Platelets 480 x10E3/uL 150-379 Neutrophils 68 % Lymphs 22 % Monocytes 8 % Eos 1 % Basos 1 % Neutrophils (Absolute) 5.8 x10E3/uL 1.4-7.0 Lymphs (Absolute) 1.8 x10E3/uL 0.7-3.1 Monocytes(Absolute) 0.7 x10E3/uL 0.1-0.9 Eos (Absolute) 0.1 x10E3/uL 0.0-0.4 Baso (Absolute) 0.0 x10E3/uL 0.0-0.2 Immature Granulocytes 0 % Immature Grans (Abs) 0.0 x10E3/uL 0.0-0.1 Basic Metabolic Panel (8) - 05/24/16 09:54 Glucose, Serum 61 mg/dL 65-99 BUN 5 mg/dL 8-27 Creatinine, Serum 0.64 mg/dL 0.76-1.27 eGFR If NonAfricn Am 103 mL/min/1.73 >59 eGFR If Africn Am 119 mL/min/1.73 >59 BUN/Creatinine Ratio 8 10-22 Sodium, Serum 129 mmol/L 134-144 Potassium, Serum 4.3 mmol/L 3.5-5.2 Chloride, Serum 90 mmol/L 96-106 Carbon Dioxide, Total 21 mmol/L 18-29 Calcium, Serum 8.8 mg/dL 8.6-10.2 CBC With Differential/Platelet - 06/21/16 10:01 WBC 6.5 x10E3/uL 3.4-10.8 RBC 4.07 x10E6/uL 4.14-5.80 Hemoglobin 13.8 g/dL 12.6-17.7 Hematocrit 42.3 % 37.5-51.0 MCV 104 fL 79-97 MCH 33.9 pg 26.6-33.0 MCHC 32.6 g/dL 31.5-35.7 RDW 13.2 % 12.3-15.4 Platelets 310 x10E3/uL 150-379 Neutrophils 56 % Lymphs 30 % Monocytes 10 % Eos 3 % Basos 1 % Neutrophils (Absolute) 3.7 x10E3/uL 1.4-7.0 Lymphs (Absolute) 1.9 x10E3/uL 0.7-3.1 Monocytes(Absolute) 0.6 x10E3/uL 0.1-0.9 Eos (Absolute) 0.2 x10E3/uL 0.0-0.4 Baso (Absolute) 0.1 x10E3/uL 0.0-0.2 Immature Granulocytes 0 % Immature Grans (Abs) 0.0 x10E3/uL 0.0-0.1 Basic Metabolic Panel (8) - 06/21/16 10:01 Glucose, Serum 65 mg/dL 65-99 BUN 5 mg/dL 8-27 Creatinine, Serum 0.64 mg/dL 0.76-1.27 eGFR If NonAfricn Am 103 mL/min/1.73 >59 eGFR If Africn Am 119 mL/min/1.73 >59 BUN/Creatinine Ratio 8 10-22 Sodium, Serum 128 mmol/L 134-144 Potassium, Serum 4.8 mmol/L 3.5-5.2 Chloride, Serum 92 mmol/L 96-106 Carbon Dioxide, Total 21 mmol/L 18-29 Calcium, Serum 8.6 mg/dL 8.6-10.2 Gram stain microscopy - 12/03/16 18:11 GRAM STAIN RESULT FEW WBC'S, NO BACTERIA OBSERVED NR Bacteria identification in wound by culture - 12/03/16 18:11 Bacteria identification in wound by culture [id number] [facility] FREE TEXT EXTERNAL SENSITIVITY REPORTED 12/05 07:10 NRG QUANTITY OF GROWTH Abundant Growth [facility] Bacterial susceptibility panel - 12/03/16 18:11 Oxacillin susceptibility test by minimum inhibitory concentration S NRG Gentamicin susceptibility test by minimum inhibitory concentration < = NRG Clindamycin susceptibility test by minimum inhibitory concentration <= NRG Erythromycin susceptibility test by minimum inhibitory concentration <= NRG Trimethoprim/sulfamethoxazole susceptibility test by minimum inhibitoryconcentration <= NRG Vancomycin susceptibility test by minimum inhibitory concentration < = NRG Levofloxacin susceptibility test by minimum inhibitory concentration <= NRG Rifampin susceptibility test by minimum inhibitory concentration <= NRG Tetracycline susceptibility test by minimum inhibitory concentration <= NRG Complete blood count (CBC) with automated white blood cell (WBC) differential - 12/03/16 18:14 Blood leukocytes automated count (number/volume) 10.2 10*3/uL 4.3-11.0 Blood erythrocytes automated count (number/volume) 3.70 10*6/uL 4.35-5.85 Venous blood hemoglobin measurement (mass/volume) 12.6 g/dL 13.3-17.7 Blood hematocrit (volume fraction) 36 % 40-54 Automated erythrocyte mean corpuscular volume 96 [foz_us] 80-99 Automated erythrocyte mean corpuscular hemoglobin (mass per erythrocyte) 34 pg 25-34 Automated erythrocyte mean corpuscular hemoglobin concentration measurement ( mass/volume) 36 g/dL 32-36 Automated erythrocyte distribution width ratio 12.4 % 10.0-14.5 Automated blood platelet count (count/volume) 263 10*3/uL 130-400 Automated blood platelet mean volume measurement 8.8 [foz_us] 7.4-10.4 Automated blood neutrophils/100 leukocytes 79 % 42-75 Automated blood lymphocytes/100 leukocytes 12 % 12-44 Blood monocytes/100 leukocytes 7 % 0-12 Automated blood eosinophils/100 leukocytes 1 % 0-10 Automated blood basophils/100 leukocytes 1 % 0-10 Blood neutrophils automated count (number/volume) 8.1 10*3 1.8-7.8 Blood lymphocytes automated count (number/volume) 1.2 10*3 1.0-4.0 Blood monocytes automated count (number/volume) 0.8 10*3 0.0-1.0 Automated eosinophil count 0.1 10*3/uL 0.0-0.3 Automated blood basophil count (count/volume) 0.1 10*3/uL 0.0-0.1 Comprehensive metabolic panel - 12/03/16 18:14 Serum or plasma sodium measurement (moles/volume) 129 mmol/L 135-145 Serum or plasma potassium measurement (moles/volume) 4.0 mmol/L 3.6-5.0 Serum or plasma chloride measurement (moles/volume) 98 mmol/L 98-107 Carbon dioxide 17 mmol/L 21-32 Serum or plasma anion gap determination (moles/volume) 14 mmol/L 5-14 Serum or plasma urea nitrogen measurement (mass/volume) 4 mg/dL 7-18 Serum or plasma creatinine measurement (mass/volume) 0.58 mg/dL 0.60-1.30 Serum or plasma urea nitrogen/creatinine mass ratio 7 NRG Serum or plasma creatinine measurement with calculation of estimated glomerular filtration rate > NRG Serum or plasma glucose measurement (mass/volume) 90 mg/dL 70-105 Serum or plasma calcium measurement (mass/volume) 8.3 mg/dL 8.5-10.1 Serum or plasma total bilirubin measurement (mass/volume) 0.4 mg/dL 0.1-1.0 Serum or plasma alkaline phosphatase measurement (enzymatic activity/volume) 68 U/L 40-136 Serum or plasma aspartate aminotransferase measurement (enzymatic activity/ volume) 24 U/L 5-34 Serum or plasma alanine aminotransferase measurement (enzymatic activity/volume ) 18 U/L 0-55 Serum or plasma protein measurement (mass/volume) 6.0 g/dL 6.4-8.2 Serum or plasma albumin measurement (mass/volume) 3.8 g/dL 3.2-4.5 Serum or plasma ethanol measurement (mass/volume) - 12/03/16 18:14 Serum or plasma ethanol measurement (mass/volume) < mg/dL <10 PT panel in platelet poor plasma by coagulation assay - 12/03/16 18:40 Prothrombin time (PT) in platelet poor plasma by coagulation assay 13.0 s 12.2-14.7 INR in platelet poor plasma or blood by coagulation assay 1.0 0.8-1.4 Activated partial thromboplastin time (aPTT) in platelet poor plasma bycoagulation assay - 12/03/16 18:40 Activated partial thromboplastin time (aPTT) in platelet poor plasma bycoagulation assay 30 s 24-35 Complete urinalysis with reflex to culture - 12/03/16 19:26 Urine color determination YELLOW NRG Urine clarity determination CLEAR NRG Urine pH measurement by test strip 6.5 5-9 Specific gravity of urine by test strip 1.010 1.016- 1.022 Urine protein assay by test strip, semi-quantitative NEGATIVE NEGATIVE Urine glucose detection by automated test strip NEGATIVE NEGATIVE Erythrocytes detection in urine sediment by light microscopy NEGATIVE NEGATIVE Urine ketones detection by automated test strip NEGATIVE NEGATIVE Urine nitrite detection by test strip NEGATIVE NEGATIVE Urine total bilirubin detection by test strip NEGATIVE NEGATIVE Urine urobilinogen measurement by automated test strip (mass/volume) NORMAL NORMAL Urine leukocyte esterase detection by dipstick NEGATIVE NEGATIVE Automated urine sediment erythrocyte count by microscopy (number/high power field) NONE NRG Automated urine sediment leukocyte count by microscopy (number/high power field ) RARE NRG Bacteria detection in urine sediment by light microscopy NEGATIVE NRG Crystals detection in urine sediment by light microscopy NONE NRG Casts detection in urine sediment by light microscopy NONE NRG Mucus detection in urine sediment by light microscopy NEGATIVE NRG Complete urinalysis with reflex to culture NO NRG Methicillin resistant Staphylococcus aureus (MRSA) screening culture - 20:20 Methicillin resistant Staphylococcus aureus (MRSA) screening culture NEG NRG Complete blood count (CBC) with automated white blood cell (WBC) differential - 12/04/16 05:20 Blood leukocytes automated count (number/volume) 10.1 10*3/uL 4.3-11.0 Blood erythrocytes automated count (number/volume) 3.64 10*6/uL 4.35-5.85 Venous blood hemoglobin measurement (mass/volume) 12.5 g/dL 13.3-17.7 Blood hematocrit (volume fraction) 35 % 40-54 Automated erythrocyte mean corpuscular volume 97 [foz_us] 80-99 Automated erythrocyte mean corpuscular hemoglobin (mass per erythrocyte) 34 pg 25-34 Automated erythrocyte mean corpuscular hemoglobin concentration measurement ( mass/volume) 36 g/dL 32-36 Automated erythrocyte distribution width ratio 12.5 % 10.0-14.5 Automated blood platelet count (count/volume) 272 10*3/uL 130-400 Automated blood platelet mean volume measurement 9.1 [foz_us] 7.4-10.4 Automated blood neutrophils/100 leukocytes 79 % 42-75 Automated blood lymphocytes/100 leukocytes 12 % 12-44 Blood monocytes/100 leukocytes 9 % 0-12 Automated blood eosinophils/100 leukocytes 0 % 0-10 Automated blood basophils/100 leukocytes 0 % 0-10 Blood neutrophils automated count (number/volume) 7.9 10*3 1.8-7.8 Blood lymphocytes automated count (number/volume) 1.2 10*3 1.0-4.0 Blood monocytes automated count (number/volume) 0.9 10*3 0.0-1.0 Automated eosinophil count 0.0 10*3/uL 0.0-0.3 Automated blood basophil count (count/volume) 0.0 10*3/uL 0.0-0.1 Comprehensive metabolic panel - 12/04/16 05:20 Serum or plasma sodium measurement (moles/volume) 131 mmol/L 135-145 Serum or plasma potassium measurement (moles/volume) 4.0 mmol/L 3.6-5.0 Serum or plasma chloride measurement (moles/volume) 99 mmol/L 98-107 Carbon dioxide 22 mmol/L 21-32 Serum or plasma anion gap determination (moles/volume) 10 mmol/L 5-14 Serum or plasma urea nitrogen measurement (mass/volume) 4 mg/dL 7-18 Serum or plasma creatinine measurement (mass/volume) 0.58 mg/dL 0.60-1.30 Serum or plasma urea nitrogen/creatinine mass ratio 7 NRG Serum or plasma creatinine measurement with calculation of estimated glomerular filtration rate > NRG Serum or plasma glucose measurement (mass/volume) 93 mg/dL 70-105 Serum or plasma calcium measurement (mass/volume) 8.5 mg/dL 8.5-10.1 Serum or plasma total bilirubin measurement (mass/volume) 0.6 mg/dL 0.1-1.0 Serum or plasma alkaline phosphatase measurement (enzymatic activity/volume) 70 U/L 40-136 Serum or plasma aspartate aminotransferase measurement (enzymatic activity/ volume) 27 U/L 5-34 Serum or plasma alanine aminotransferase measurement (enzymatic activity/volume ) 17 U/L 0-55 Serum or plasma protein measurement (mass/volume) 6.0 g/dL 6.4-8.2 Serum or plasma albumin measurement (mass/volume) 3.7 g/dL 3.2-4.5 Complete blood count (CBC) with automated white blood cell (WBC) differential - 12/05/16 05:05 Blood leukocytes automated count (number/volume) 9.4 10*3/uL 4.3-11.0 Blood erythrocytes automated count (number/volume) 2.57 10*6/uL 4.35-5.85 Venous blood hemoglobin measurement (mass/volume) 8.7 g/dL 13.3-17.7 Blood hematocrit (volume fraction) 26 % 40-54 Automated erythrocyte mean corpuscular volume 99 [foz_us] 80-99 Automated erythrocyte mean corpuscular hemoglobin (mass per erythrocyte) 34 pg 25-34 Automated erythrocyte mean corpuscular hemoglobin concentration measurement ( mass/volume) 34 g/dL 32-36 Automated erythrocyte distribution width ratio 12.6 % 10.0-14.5 Automated blood platelet count (count/volume) 226 10*3/uL 130-400 Automated blood platelet mean volume measurement 9.1 [foz_us] 7.4-10.4 Automated blood neutrophils/100 leukocytes 77 % 42-75 Automated blood lymphocytes/100 leukocytes 11 % 12-44 Blood monocytes/100 leukocytes 11 % 0-12 Automated blood eosinophils/100 leukocytes 1 % 0-10 Automated blood basophils/100 leukocytes 0 % 0-10 Blood neutrophils automated count (number/volume) 7.2 10*3 1.8-7.8 Blood lymphocytes automated count (number/volume) 1.0 10*3 1.0-4.0 Blood monocytes automated count (number/volume) 1.0 10*3 0.0-1.0 Automated eosinophil count 0.1 10*3/uL 0.0-0.3 Automated blood basophil count (count/volume) 0.0 10*3/uL 0.0-0.1 Comprehensive metabolic panel - 12/05/16 05:05 Serum or plasma sodium measurement (moles/volume) 132 mmol/L 135-145 Serum or plasma potassium measurement (moles/volume) 3.8 mmol/L 3.6-5.0 Serum or plasma chloride measurement (moles/volume) 101 mmol/L 98-107 Carbon dioxide 19 mmol/L 21-32 Serum or plasma anion gap determination (moles/volume) 12 mmol/L 5-14 Serum or plasma urea nitrogen measurement (mass/volume) 7 mg/dL 7-18 Serum or plasma creatinine measurement (mass/volume) 0.58 mg/dL 0.60-1.30 Serum or plasma urea nitrogen/creatinine mass ratio 12 NRG Serum or plasma creatinine measurement with calculation of estimated glomerular filtration rate > NRG Serum or plasma glucose measurement (mass/volume) 107 mg/dL 70-105 Serum or plasma calcium measurement (mass/volume) 7.9 mg/dL 8.5-10.1 Serum or plasma total bilirubin measurement (mass/volume) 0.4 mg/dL 0.1-1.0 Serum or plasma alkaline phosphatase measurement (enzymatic activity/volume) 60 U/L 40-136 Serum or plasma aspartate aminotransferase measurement (enzymatic activity/ volume) 21 U/L 5-34 Serum or plasma alanine aminotransferase measurement (enzymatic activity/volume ) 18 U/L 0-55 Serum or plasma protein measurement (mass/volume) 5.1 g/dL 6.4-8.2 Serum or plasma albumin measurement (mass/volume) 3.1 g/dL 3.2-4.5 Comprehensive metabolic panel - 12/06/16 04:10 Serum or plasma sodium measurement (moles/volume) 131 mmol/L 135-145 Serum or plasma potassium measurement (moles/volume) 3.4 mmol/L 3.6-5.0 Serum or plasma chloride measurement (moles/volume) 102 mmol/L 98-107 Carbon dioxide 21 mmol/L 21-32 Serum or plasma anion gap determination (moles/volume) 8 mmol/L 5-14 Serum or plasma urea nitrogen measurement (mass/volume) 5 mg/dL 7-18 Serum or plasma creatinine measurement (mass/volume) 0.50 mg/dL 0.60-1.30 Serum or plasma urea nitrogen/creatinine mass ratio 10 NRG Serum or plasma creatinine measurement with calculation of estimated glomerular filtration rate > NRG Serum or plasma glucose measurement (mass/volume) 102 mg/dL 70-105 Serum or plasma calcium measurement (mass/volume) 7.5 mg/dL 8.5-10.1 Serum or plasma total bilirubin measurement (mass/volume) 0.4 mg/dL 0.1-1.0 Serum or plasma alkaline phosphatase measurement (enzymatic activity/volume) 47 U/L 40-136 Serum or plasma aspartate aminotransferase measurement (enzymatic activity/ volume) 25 U/L 5-34 Serum or plasma alanine aminotransferase measurement (enzymatic activity/volume ) 15 U/L 0-55 Serum or plasma protein measurement (mass/volume) 4.6 g/dL 6.4-8.2 Serum or plasma albumin measurement (mass/volume) 2.7 g/dL 3.2-4.5 Complete blood count (CBC) with automated white blood cell (WBC) differential - 12/06/16 04:10 Blood leukocytes automated count (number/volume) 6.4 10*3/uL 4.3-11.0 Blood erythrocytes automated count (number/volume) 1.87 10*6/uL 4.35-5.85 Venous blood hemoglobin measurement (mass/volume) 6.3 g/dL 13.3-17.7 Blood hematocrit (volume fraction) 19 % 40-54 Automated erythrocyte mean corpuscular volume 100 [foz_us] 80-99 Automated erythrocyte mean corpuscular hemoglobin (mass per erythrocyte) 34 pg 25-34 Automated erythrocyte mean corpuscular hemoglobin concentration measurement ( mass/volume) 34 g/dL 32-36 Automated erythrocyte distribution width ratio 12.4 % 10.0-14.5 Automated blood platelet count (count/volume) 184 10*3/uL 130-400 Automated blood platelet mean volume measurement 9.4 [foz_us] 7.4-10.4 Automated blood neutrophils/100 leukocytes 62 % 42-75 Automated blood lymphocytes/100 leukocytes 24 % 12-44 Blood monocytes/100 leukocytes 12 % 0-12 Automated blood eosinophils/100 leukocytes 1 % 0-10 Automated blood basophils/100 leukocytes 1 % 0-10 Blood neutrophils automated count (number/volume) 4.0 10*3 1.8-7.8 Blood lymphocytes automated count (number/volume) 1.6 10*3 1.0-4.0 Blood monocytes automated count (number/volume) 0.8 10*3 0.0-1.0 Automated eosinophil count 0.1 10*3/uL 0.0-0.3 Automated blood basophil count (count/volume) 0.0 10*3/uL 0.0-0.1 RED CELLS LEUKO REDUCED AS1 - 12/06/16 06:54 RED CELLS LEUKO REDUCED AS1 TRANSFUSED 12/06/16 0803 NRG Blood type T Indirect antibody screen panel - 12/06/16 06:54 ABO+Rh group AP NRG Transfusion band number [id number] NRG Blood group antibody screen NEGATIVE NRG Complete blood count (CBC) with automated white blood cell (WBC) differential - 12/07/16 03:53 Blood leukocytes automated count (number/volume) 7.3 10*3/uL 4.3-11.0 Blood erythrocytes automated count (number/volume) 3.02 10*6/uL 4.35-5.85 Venous blood hemoglobin measurement (mass/volume) 9.8 g/dL 13.3-17.7 Blood hematocrit (volume fraction) 28 % 40-54 Automated erythrocyte mean corpuscular volume 94 [foz_us] 80-99 Automated erythrocyte mean corpuscular hemoglobin (mass per erythrocyte) 32 pg 25-34 Automated erythrocyte mean corpuscular hemoglobin concentration measurement ( mass/volume) 35 g/dL 32-36 Automated erythrocyte distribution width ratio 14.7 % 10.0-14.5 Automated blood platelet count (count/volume) 207 10*3/uL 130-400 Automated blood platelet mean volume measurement 9.4 [foz_us] 7.4-10.4 Automated blood neutrophils/100 leukocytes 75 % 42-75 Automated blood lymphocytes/100 leukocytes 13 % 12-44 Blood monocytes/100 leukocytes 11 % 0-12 Automated blood eosinophils/100 leukocytes 1 % 0-10 Automated blood basophils/100 leukocytes 0 % 0-10 Blood neutrophils automated count (number/volume) 5.4 10*3 1.8-7.8 Blood lymphocytes automated count (number/volume) 0.9 10*3 1.0-4.0 Blood monocytes automated count (number/volume) 0.8 10*3 0.0-1.0 Automated eosinophil count 0.1 10*3/uL 0.0-0.3 Automated blood basophil count (count/volume) 0.0 10*3/uL 0.0-0.1 Comprehensive metabolic panel - 07/25/17 03:53 Serum or plasma sodium measurement (moles/volume) 130 mmol/L 135-145 Serum or plasma potassium measurement (moles/volume) 2.7 mmol/L 3.6-5.0 Serum or plasma chloride measurement (moles/volume) 97 mmol/L 98-107 Carbon dioxide 21 mmol/L 21-32 Serum or plasma anion gap determination (moles/volume) 12 mmol/L 5-14 Serum or plasma urea nitrogen measurement (mass/volume) 2 mg/dL 7-18 Serum or plasma creatinine measurement (mass/volume) 0.49 mg/dL 0.60-1.30 Serum or plasma urea nitrogen/creatinine mass ratio 4 NRG Serum or plasma creatinine measurement with calculation of estimated glomerular filtration rate > NRG Serum or plasma glucose measurement (mass/volume) 96 mg/dL 70-105 Serum or plasma calcium measurement (mass/volume) 7.9 mg/dL 8.5-10.1 Serum or plasma total bilirubin measurement (mass/volume) 0.8 mg/dL 0.1-1.0 Serum or plasma alkaline phosphatase measurement (enzymatic activity/volume) 56 U/L 40-136 Serum or plasma aspartate aminotransferase measurement (enzymatic activity/ volume) 28 U/L 5-34 Serum or plasma alanine aminotransferase measurement (enzymatic activity/volume ) 18 U/L 0-55 Serum or plasma protein measurement (mass/volume) 5.3 g/dL 6.4-8.2 Serum or plasma albumin measurement (mass/volume) 3.0 g/dL 3.2-4.5 Comprehensive metabolic panel - 12/09/16 05:08 Serum or plasma sodium measurement (moles/volume) 132 mmol/L 135-145 Serum or plasma potassium measurement (moles/volume) 3.6 mmol/L 3.6-5.0 Serum or plasma chloride measurement (moles/volume) 99 mmol/L 98-107 Carbon dioxide 20 mmol/L 21-32 Serum or plasma anion gap determination (moles/volume) 13 mmol/L 5-14 Serum or plasma urea nitrogen measurement (mass/volume) 5 mg/dL 7-18 Serum or plasma creatinine measurement (mass/volume) 0.51 mg/dL 0.60-1.30 Serum or plasma urea nitrogen/creatinine mass ratio 10 NRG Serum or plasma creatinine measurement with calculation of estimated glomerular filtration rate > NRG Serum or plasma glucose measurement (mass/volume) 96 mg/dL 70-105 Serum or plasma calcium measurement (mass/volume) 8.5 mg/dL 8.5-10.1 Serum or plasma total bilirubin measurement (mass/volume) 1.0 mg/dL 0.1-1.0 Serum or plasma alkaline phosphatase measurement (enzymatic activity/volume) 55 U/L 40-136 Serum or plasma aspartate aminotransferase measurement (enzymatic activity/ volume) 19 U/L 5-34 Serum or plasma alanine aminotransferase measurement (enzymatic activity/volume ) 16 U/L 0-55 Serum or plasma protein measurement (mass/volume) 5.7 g/dL 6.4-8.2 Serum or plasma albumin measurement (mass/volume) 3.1 g/dL 3.2-4.5 Complete blood count (CBC) with automated white blood cell (WBC) differential - 12/09/16 05:22 Blood leukocytes automated count (number/volume) 6.4 10*3/uL 4.3-11.0 Blood erythrocytes automated count (number/volume) 3.11 10*6/uL 4.35-5.85 Venous blood hemoglobin measurement (mass/volume) 10.2 g/dL 13.3-17.7 Blood hematocrit (volume fraction) 30 % 40-54 Automated erythrocyte mean corpuscular volume 96 [foz_us] 80-99 Automated erythrocyte mean corpuscular hemoglobin (mass per erythrocyte) 33 pg 25-34 Automated erythrocyte mean corpuscular hemoglobin concentration measurement ( mass/volume) 34 g/dL 32-36 Automated erythrocyte distribution width ratio 14.3 % 10.0-14.5 Automated blood platelet count (count/volume) 316 10*3/uL 130-400 Automated blood platelet mean volume measurement 8.4 [foz_us] 7.4-10.4 Automated blood neutrophils/100 leukocytes 69 % 42-75 Automated blood lymphocytes/100 leukocytes 16 % 12-44 Blood monocytes/100 leukocytes 12 % 0-12 Automated blood eosinophils/100 leukocytes 3 % 0-10 Automated blood basophils/100 leukocytes 1 % 0-10 Blood neutrophils automated count (number/volume) 4.4 10*3 1.8-7.8 Blood lymphocytes automated count (number/volume) 1.0 10*3 1.0-4.0 Blood monocytes automated count (number/volume) 0.7 10*3 0.0-1.0 Automated eosinophil count 0.2 10*3/uL 0.0-0.3 Automated blood basophil count (count/volume) 0.0 10*3/uL 0.0-0.1 Complete blood count (CBC) with automated white blood cell (WBC) differential - 12/16/16 04:52 Blood leukocytes automated count (number/volume) 6.8 10*3/uL 4.3-11.0 Blood erythrocytes automated count (number/volume) 3.61 10*6/uL 4.35-5.85 Venous blood hemoglobin measurement (mass/volume) 11.8 g/dL 13.3-17.7 Blood hematocrit (volume fraction) 35 % 40-54 Automated erythrocyte mean corpuscular volume 98 [foz_us] 80-99 Automated erythrocyte mean corpuscular hemoglobin (mass per erythrocyte) 33 pg 25-34 Automated erythrocyte mean corpuscular hemoglobin concentration measurement ( mass/volume) 33 g/dL 32-36 Automated erythrocyte distribution width ratio 14.4 % 10.0-14.5 Automated blood platelet count (count/volume) 634 10*3/uL 130-400 Automated blood platelet mean volume measurement 8.0 [foz_us] 7.4-10.4 Automated blood neutrophils/100 leukocytes 64 % 42-75 Automated blood lymphocytes/100 leukocytes 19 % 12-44 Blood monocytes/100 leukocytes 13 % 0-12 Automated blood eosinophils/100 leukocytes 3 % 0-10 Automated blood basophils/100 leukocytes 1 % 0-10 Blood neutrophils automated count (number/volume) 4.3 10*3 1.8-7.8 Blood lymphocytes automated count (number/volume) 1.3 10*3 1.0-4.0 Blood monocytes automated count (number/volume) 0.9 10*3 0.0-1.0 Automated eosinophil count 0.2 10*3/uL 0.0-0.3 Automated blood basophil count (count/volume) 0.1 10*3/uL 0.0-0.1 Comprehensive metabolic panel - 12/16/16 04:52 Serum or plasma sodium measurement (moles/volume) 130 mmol/L 135-145 Serum or plasma potassium measurement (moles/volume) 4.5 mmol/L 3.6-5.0 Serum or plasma chloride measurement (moles/volume) 99 mmol/L 98-107 Carbon dioxide 22 mmol/L 21-32 Serum or plasma anion gap determination (moles/volume) 9 mmol/L 5-14 Serum or plasma urea nitrogen measurement (mass/volume) 8 mg/dL 7-18 Serum or plasma creatinine measurement (mass/volume) 0.59 mg/dL 0.60-1.30 Serum or plasma urea nitrogen/creatinine mass ratio 14 NRG Serum or plasma creatinine measurement with calculation of estimated glomerular filtration rate > NRG Serum or plasma glucose measurement (mass/volume) 89 mg/dL 70-105 Serum or plasma calcium measurement (mass/volume) 9.4 mg/dL 8.5-10.1 Serum or plasma total bilirubin measurement (mass/volume) 0.8 mg/dL 0.1-1.0 Serum or plasma alkaline phosphatase measurement (enzymatic activity/volume) 81 U/L 40-136 Serum or plasma aspartate aminotransferase measurement (enzymatic activity/ volume) 21 U/L 5-34 Serum or plasma alanine aminotransferase measurement (enzymatic activity/volume ) 17 U/L 0-55 Serum or plasma protein measurement (mass/volume) 6.4 g/dL 6.4-8.2 Serum or plasma albumin measurement (mass/volume) 3.5 g/dL 3.2-4.5 Comprehensive metabolic panel - 12/22/16 12:01 Serum or plasma sodium measurement (moles/volume) 127 mmol/L 135-145 Serum or plasma potassium measurement (moles/volume) 4.7 mmol/L 3.6-5.0 Serum or plasma chloride measurement (moles/volume) 96 mmol/L 98-107 Carbon dioxide 24 mmol/L 21-32 Serum or plasma anion gap determination (moles/volume) 7 mmol/L 5-14 Serum or plasma urea nitrogen measurement (mass/volume) 10 mg/dL 7-18 Serum or plasma creatinine measurement (mass/volume) 0.61 mg/dL 0.60-1.30 Serum or plasma urea nitrogen/creatinine mass ratio 16 NRG Serum or plasma creatinine measurement with calculation of estimated glomerular filtration rate > NRG Serum or plasma glucose measurement (mass/volume) 112 mg/dL 70-105 Serum or plasma calcium measurement (mass/volume) 9.3 mg/dL 8.5-10.1 Serum or plasma total bilirubin measurement (mass/volume) 0.6 mg/dL 0.1-1.0 Serum or plasma alkaline phosphatase measurement (enzymatic activity/volume) 109 U/L 40-136 Serum or plasma aspartate aminotransferase measurement (enzymatic activity/ volume) 21 U/L 5-34 Serum or plasma alanine aminotransferase measurement (enzymatic activity/volume ) 16 U/L 0-55 Serum or plasma protein measurement (mass/volume) 6.7 g/dL 6.4-8.2 Serum or plasma albumin measurement (mass/volume) 3.7 g/dL 3.2-4.5 CBC - 02/08/17 08:29 WBC 6.2 x10E3/uL 3.4-10.8 RBC 3.90 x10E6/uL 4.14-5.80 Hemoglobin 12.8 g/dL 12.6-17.7 Hematocrit 37.2 % 37.5-51.0 MCV 95 fL 79-97 MCH 32.8 pg 26.6-33.0 MCHC 34.4 g/dL 31.5-35.7 RDW 14.4 % 12.3-15.4 Platelets 300 x10E3/uL 150-379 Neutrophils 65 % NRG Lymphs 24 % NRG Monocytes 8 % NRG Eos 2 % NRG Basos 1 % NRG Neutrophils (Absolute) 4.0 x10E3/uL 1.4-7.0 Lymphs (Absolute) 1.5 x10E3/uL 0.7-3.1 Monocytes(Absolute) 0.5 x10E3/uL 0.1-0.9 Eos (Absolute) 0.1 x10E3/uL 0.0-0.4 Baso (Absolute) 0.0 x10E3/uL 0.0-0.2 Immature Granulocytes 0 % NRG Immature Grans (Abs) 0.0 x10E3/uL 0.0-0.1 BMP - 02/08/17 08:29 Glucose, Serum 83 mg/dL 65-99 BUN 7 mg/dL 8-27 Creatinine, Serum 0.48 mg/dL 0.76-1.27 eGFR If NonAfricn Am 116 mL/min/1.73 >59 eGFR If Africn Am 134 mL/min/1.73 >59 BUN/Creatinine Ratio 15 10-24 Sodium, Serum 126 mmol/L 134-144 Potassium, Serum 4.3 mmol/L 3.5-5.2 Chloride, Serum 88 mmol/L 96-106 Carbon Dioxide, Total 22 mmol/L 18-29 Calcium, Serum 8.9 mg/dL 8.6-10.2 CBC With Differential/Platelet - 02/08/17 08:29 WBC 6.2 x10E3/uL 3.4-10.8 RBC 3.90 x10E6/uL 4.14-5.80 Hemoglobin 12.8 g/dL 12.6-17.7 Hematocrit 37.2 % 37.5-51.0 MCV 95 fL 79-97 MCH 32.8 pg 26.6-33.0 MCHC 34.4 g/dL 31.5-35.7 RDW 14.4 % 12.3-15.4 Platelets 300 x10E3/uL 150-379 Neutrophils 65 % Lymphs 24 % Monocytes 8 % Eos 2 % Basos 1 % Neutrophils (Absolute) 4.0 x10E3/uL 1.4-7.0 Lymphs (Absolute) 1.5 x10E3/uL 0.7-3.1 Monocytes(Absolute) 0.5 x10E3/uL 0.1-0.9 Eos (Absolute) 0.1 x10E3/uL 0.0-0.4 Baso (Absolute) 0.0 x10E3/uL 0.0-0.2 Immature Granulocytes 0 % Immature Grans (Abs) 0.0 x10E3/uL 0.0-0.1 Basic Metabolic Panel (8) - 02/08/17 08:29 Glucose, Serum 83 mg/dL 65-99 BUN 7 mg/dL 8-27 Creatinine, Serum 0.48 mg/dL 0.76-1.27 eGFR If NonAfricn Am 116 mL/min/1.73 >59 eGFR If Africn Am 134 mL/min/1.73 >59 BUN/Creatinine Ratio 15 10-24 Sodium, Serum 126 mmol/L 134-144 Potassium, Serum 4.3 mmol/L 3.5-5.2 Chloride, Serum 88 mmol/L 96-106 Carbon Dioxide, Total 22 mmol/L 18-29 Calcium, Serum 8.9 mg/dL 8.6-10.2 Magnesium, Serum - 02/08/17 08:29 Magnesium, Serum 1.8 mg/dL 1.6-2.3 BMP - 05/02/17 08:43 GLUCOSE 83 mg/dL 65-99 UREA NITROGEN (BUN) 5 mg/dL 7-25 CREATININE 0.53 mg/dL 0.70-1.25 eGFR NON-AFR. ROMANIAN 110 mL/min/1.73m2 > OR=60 eGFR 128 mL/min/1.73m2 > OR=60 BUN/CREATININE RATIO 9 (calc) 6-22 SODIUM 130 mmol/L 135-146 POTASSIUM 4.2 mmol/L 3.5-5.3 CHLORIDE 98 mmol/L 98-110 CARBON DIOXIDE 25 mmol/L 20-31 CALCIUM 9.2 mg/dL 8.6-10.3 PDM - TRAMADOL - 10/06/17 09:28 Prescribed Drug 1 [place](TM) NRG COMMENT NRG Desmethyltramadol 1865 ng/mL <100 medMATCH Desmethyltram CONSISTENT NRG Tramadol 7844 ng/mL <100 medMATCH Tramadol CONSISTENT NRG Prescribed Drug 2 Tramadol NRG Prescribed Drug 3 Tramadol NRG Prescribed Drug 4 [place](TM) NRG Prescribed Drug 5 Tramadol NRG CMP - 11/24/17 10:20 GLUCOSE 64 mg/dL 65-99 UREA NITROGEN (BUN) 6 mg/dL 7-25 CREATININE 0.57 mg/dL 0.70-1.25 eGFR NON-AFR. ROMANIAN 107 mL/min/1.73m2 > OR=60 eGFR 124 mL/min/1.73m2 > OR=60 BUN/CREATININE RATIO 11 (calc) 6-22 SODIUM 127 mmol/L 135-146 POTASSIUM 4.4 mmol/L 3.5-5.3 CHLORIDE 95 mmol/L 98-110 CARBON DIOXIDE 26 mmol/L 20-31 CALCIUM 9.5 mg/dL 8.6-10.3 PROTEIN, TOTAL 6.6 g/dL 6.1-8.1 ALBUMIN 4.2 g/dL 3.6-5.1 GLOBULIN 2.4 g/dL (calc) 1.9-3.7 ALBUMIN/GLOBULIN RATIO 1.8 (calc) 1.0-2.5 BILIRUBIN, TOTAL 0.4 mg/dL 0.2-1.2 ALKALINE PHOSPHATASE 79 U/L 40-115 AST 22 U/L 10-35 ALT 14 U/L 9-46 BMP - 01/02/18 09:22 GLUCOSE 93 mg/dL 65-99 UREA NITROGEN (BUN) 5 mg/dL 7-25 CREATININE 0.60 mg/dL 0.70-1.25 eGFR NON-AFR. ROMANIAN 105 mL/min/1.73m2 > OR=60 eGFR 121 mL/min/1.73m2 > OR=60 BUN/CREATININE RATIO 8 (calc) 6-22 SODIUM 131 mmol/L 135-146 POTASSIUM 4.3 mmol/L 3.5-5.3 CHLORIDE 98 mmol/L 98-110 CARBON DIOXIDE 27 mmol/L 20-32 CALCIUM 9.3 mg/dL 8.6-10.3 URIC ACID, SERUM - 01/02/18 09:22 URIC ACID 4.5 mg/dL 4.0-8.0 Encounters ACCT No. Visit Date/Time Discharge Status Pt. Type Provider Facility Loc./Unit Complaint [id number] 09/06/2014 13:46:00 09/06/2014 23:59:59 CLS Outpatient PRISCILA PITT MD [id number] 07/22/2014 09:40:00 07/22/2014 23:59:59 CLS Outpatient PRISCILA PITT MD [id number] 05/27/2014 08:16:00 05/27/2014 23:59:59 CLS Outpatient PRISCILA PITT MD [id number] 03/08/2014 10:31:00 03/08/2014 23:59:59 CLS Outpatient PRISCILA PITT MD [id number] 11/22/2013 10:31:00 11/22/2013 23:59:59 CLS Outpatient PRISCILA PITT MD [id number] 08/20/2013 10:00:00 08/20/2013 23:59:59 CLS Outpatient PRISCILA PITT MD [id number] 05/22/2013 09:02:00 05/22/2013 23:59:59 CLS Outpatient PRISCILA PITT MD [id number] 04/19/2013 08:11:00 04/19/2013 23:59:59 CLS Outpatient PRISCILA PITT MD [id number] 06/22/2012 10:04:00 06/22/2012 23:59:59 CLS Outpatient PRISCILA PITT MD [id number] 05/22/2012 11:47:00 05/22/2012 23:59:59 [place] [id number] 01/26/2012 15:36:00 01/26/2012 23:59:59 CLS Outpatient BIJAN MAN DO [id number] 01/26/2012 15:36:00 01/26/2012 23:59:59 CLS Outpatient BIJAN MAN DO [id number] 05/19/2016 18:05:00 Document Registration [id number] 11/24/2017 09:00:00 11/24/2017 23:59:59 CLS Outpatient PRISCILA PITT MD [facility] [id number] 01/02/2018 09:00:00 Document Registration [id number] 11/24/2017 09:00:00 Document Registration [id number] 10/06/2017 09:00:00 Document Registration [id number] 05/02/2017 08:40:00 Document Registration [id number] 02/08/2017 08:20:00 Document Registration [id number] 06/22/2016 08:38:00 Document Registration [id number] 12/27/2016 00:00:00 02/03/2017 11:05:00 DIS Outpatient Priscila Pitt [id number] 05/25/2016 10:06:00 Document Registration [id number] 05/18/2016 13:05:00 Document Registration [id number] 02/09/2017 09:11:00 Document Registration [id number] 12/07/2016 11:11:00 12/23/2016 12:02:00 DIS Inpatient ALEKSANDAR ROD, MAYKEL Pierson [facility] IRF RIGHT INTERTROCHANTERIC HIP FRACTURE [id number] 12/03/2016 19:47:00 12/07/2016 11:10:00 DIS Inpatient JUAN RAY DO [facility] 4TH RT HIP FX [id number] 05/15/2016 07:30:00 05/15/2016 09:54:00 DIS Emergency ELIAS FORTE MD [facility] ER NOSE BLEED [id number] 05/09/2016 09:17:00 05/09/2016 12:00:00 DIS Emergency KAREN ROD, JERALD Hernandez [facility] ER BLOODY NOSE [id number] 05/05/2016 13:20:00 05/05/2016 16:04:00 DIS Emergency JOYCE MARRUFO [facility] ER NOSE BLEED [id number] 01/22/2016 08:30:00 01/27/2016 11:28:00 DIS Outpatient SWEETIE ROD, PRISCILA Pena [facility] REHAB LUMBAR ARTHRITIS [id number] 03/31/2015 09:32:00 03/31/2015 23:59:59 CLS Outpatient SHIN HUDSON MD [facility] CARD [id number] 01/06/2015 11:29:00 01/06/2015 23:59:59 CLS Outpatient SHIN HUDSON MD [facility] CARD [id number] 11/13/2014 07:46:00 11/13/2014 23:59:59 CLS Outpatient KATHY ROD, LA Stevens [facility] RAD [id number] 12/05/2013 03:19:00 12/05/2013 05:15:00 DIS Emergency EMERITA ROD, MOY Maier [facility] ER [id number] 10/21/2011 10:09:00 Document Registration [id number] 10/14/2011 12:09:00 Document Registration [id number] 07/27/2011 11:37:00 Document Registration [id number] 05/06/2011 13:05:00 Document Registration [id number] 05/12/2016 08:35:00 Document Registration
[2018-02-27] MEDS ORDERED: DEXAMETHASONE 4 MG/ML SDV (DECADRON) IH ONE (15:30)
[2018-02-27] MEDS ORDERED: RT-ALBUTEROL/IPRATROPIUM 3 ML (DUONEB) VIAL INH ONE (15:30)
[2018-02-27] MEDS ORDERED: methylPREDNISolone 125 MG (Solu-MEDROL) VIAL IVP ONE (15:30)
[2018-02-27] MEDS ORDERED: RT-ALBUTEROL SULF 2.5 MG/3 ML PRE-MIX VIAL ONE (15:40)
--- NOTE | 2018-02-27 15:49 | Diagnostic Imaging Report ---
INDICATION: Epistaxis. EXAMINATION: Portable chest at 3:40 PM. FINDINGS: There are postop changes from CABG surgery. There is elevation of the left hemidiaphragm. The lungs are clear. There are no effusions or pneumothoraces. IMPRESSION: Post surgical changes of the chest with chronically elevated left hemidiaphragm, unchanged from 12/03/2016. No acute abnormality is seen. Dictated by: Dictated on workstation # [id number]
[2018-02-27] MEDS ORDERED: RT-ALBUINH IH (16:39)
[2018-02-27] MEDS ORDERED: AMOX875T2 PO (16:39)
--- NOTE | 2018-02-27 16:39 | ED EENT ---
History of Present Illness General Chief Complaint: Nasal Problems Stated Complaint: NOSE BLEED Nursing Triage Note: PT TO ROOM #5 [facility]IA [facility]. A&OX4. CO NASAL BLEED AND SOB. PT REPORTS HIS RT NARE BEGAN TO BLEED APPROX 2229 LAST NOC AND CONTINUED TO BLEED INTERMITTENTLY SINCE. PT REPORTS HE HAS BEEN UNABLE TO COMPLETELY HAULT THE BLEEDING AND STATES HE "HAS BEEN COUGHING UP BLOOD CLOTS." UPON ARRIVAL NASAL CLAMP IN PLACE AND 20G IV TO LT AC WITH NS RUNNING BY EMS. 100ML NS INFUSED PRIOR TO ARRIVAL. ACTIVE BLEEDING HAULTED. RHONCHI NOTED BILAT UPON AUSCULTATION. REPORTS CHRONIC BACK PAIN. Source: patient (SOMEWHAT LIMITED HISTORIAN), family (DAUGHTER) History of Present Illness Date Seen by Provider: Feb 27, 2018 Time Seen by Provider: 14:49 Initial Comments PT ARRIVES VIA EMS FROM HOME C/O NOSEBLEED SINCE 2229 LAST PM STATES HE GOT UP TO GO TO THE BATHROOM WHEN NOSE BEGAN TO BLEED--RIGHT NARE HAS HAD BLEEDING OFF AND ON SINCE THEN--STATES IT STOPPED AT 0330, THEN STARTED AGAIN AT 0930 HAS HAD A NOSE CLAMP IN MOST OF THE DAY AND NO BLEEDING WHILE HE HAS THE CLAMP ON, BUT SOON HE TAKES THE CLAMP OFF, IT WILL START BLEEDING AGAIN--STATES IS A SLOW CONSTANT DRIP PT TAKES ASPIRIN AND PLAVIX--DID NOT TAKE EITHER TODAY DENIES ANY INJURY TO NOSE, DENIES SNEEZING, RUBBING OR PICKING NOSE STATES HE HAS HAD A HARD TIME BREATHING TODAY WHEN HE TRIES TO WALK--STATES IS BECAUSE HE CAN'T BREATHE THROUGH HIS NOSE STATES HE IS NOT NORMALLY SHORT OF BREATH--STATES HE HAS BEEN TOLD HE HAS COPD, BUT HAS NEVER BEEN PRESCRIBED AN INHALER AND DOES NOT WEAR HOME O2. DAUGHTER REPORTS THAT PT HAS HAD SHORTNESS OF BREATH ON EXERTION FOR THE LAST 2 DAYS. PT CONTINUES TO SMOKE 1 PPD PT ALSO DRINKS DAILY--STATES HE HAS HAD 1 BEER TODAY NO CHEST PAIN NO EXCESSIVE BRUISING ANYWHERE NO HEMATURIA HAD THE SAME THING OCCUR A YEAR AGO ( ACTUALLY 2016, PER OLD RECORDS. , SAME SIDE. ENDED UP HAVING IT CAUTERIZED BY S[employer]IOR [employer] OFFICER AT DR. KRAMER'S OFFICE. DOES NOT KNOW WHAT HIS NORMAL HGB IS. HAD ANEMIA POST OP AFTER HIP SURGERY PCP: DR. PITT AT [facility]. HAD AN APPOINTMENT TODAY AT 1440 FOR THIS PROBLEM, BUT CALLED EMS AND CAME HERE INSTEAD NOSE IS NOT BLEEDING NOW. Allergies and Home Medications Allergies Coded Allergies: NNEKAANo Known Allergies (Unverified Allergy, Mild, 02/08/09) Home Medications Albuterol Sulfate 1 Puff Puff, 2 PUFF IH Q4H USE WITH SPACER AT ALL TIMES Prescribed by: SHY SCOTT on 02/27/18 1639 Amlodipine Besylate 5 Mg Tablet, 5 MG PO DAILY Prescribed by: MAYKEL HUERTAS on 12/22/16 152 Amoxicillin 875 Mg Tablet, 875 MG PO BID Prescribed by: SHY SCOTT on 02/27/18 1639 Aspirin 81 Mg Tablet.dr, 81 MG PO DAILY, (Reported) Clopidogrel 75 Mg Tablet, 75 MG PO DAILY, (Reported) Cyclobenzaprine HCl 10 Mg Tablet, 10 MG PO TID Prescribed by: MAYKEL HUERTAS on 12/22/161520 Diclofenac Sodium 100 Gm Gel..gram., 0 GM TOP QID Prescribed by: MAYKEL HUERTAS on 12/22/161520 Fluticasone Propionate 16 Gm [place].susp, 2 SPRAY NS DAILY, (Reported) Furosemide 40 Mg Tablet, 40 MG PO DAILY PRN for SWELLING, (Reported) Hydrocodone/Acetaminophen 1 Each Tablet, 1 TAB PO Q4H PRN for PAIN-MODERATE Prescribed by: MAYKEL HUERTAS on 12/22/161520 Lactulose 20 Gm/30 Ml Solution, 10 GM PO BID Prescribed by: MAYKEL HUERTAS on 12/22/161520 Lansoprazole 30 Mg Capsule.dr, 30 MG PO BID, (Reported) Lisinopril 10 Mg Tablet, 10 MG PO DAILY, (Reported) Metoclopramide HCl 10 Mg Tablet, 10 MG PO BID Prescribed by: MAYKEL HUERTAS on 12/22/161520 Potassium Chloride 10 Meq Tablet.er, 10 MEQ PO TIDWM Prescribed by: MAYKEL HUERTAS on 12/22/161520 Pravastatin Sodium 40 Mg Tablet, 40 MG PO DAILY, (Reported) Sennosides/Docusate Sodium 1 Each Tablet, 2 EA PO BID Prescribed by: MAYKEL HUERTAS on 12/22/161520 Tramadol HCl 50 Mg Tablet, 50 MG PO Q6HR PRN for PAIN-MODERATE Prescribed by: MAYKEL HUERTAS on 12/22/161520 Patient Home Medication List Home Medication List Reviewed: Yes Review of Systems Review of Systems Constitutional: no symptoms reported; No chills, No diaphoresis, No dizziness, No fever Eyes: No Symptoms Reported Ears: No Symptoms Reported Nose: see HPI; denies congestion; epistaxis; denies pain Mouth: no symptoms reported Throat: no symptoms reported Respiratory: see HPI, cough (MILD CHRONIC COUGH--NO DIFFERENT THAN NORMAL), dyspnea on exertion, hemoptysis (SINCE NOSEBLEED STARTED. ), short of breath, wheezing Cardiovascular: no symptoms reported; No chest pain, No edema, No palpitations , No syncope, No vascular heart diseas Gastrointestinal: no symptoms reported Musculoskeletal: other (CHRONIC NECK AND BACK PAIN) Skin: no symptoms reported Neurological: No Symptoms Reported; Denies Headache Hematologic/Lymphatic: See HPI, Anemia Immunological/Allergic: no symptoms reported Past Vqtjbep-Mstqig-Yvftrw Hx Patient Social History Alcohol Use: Regular Use ("3 OR 4" BEERS A DAY) Number of Drinks Today: 0 Alcohol Beverage of Choice: Beer Recreational Drug Use: No Smoking Status: Current Everyday Smoker (1 PPD) Type Used: Cigarettes 2nd Hand Smoke Exposure: Yes Recent Foreign Travel: No Contact w/Someone Who Travel: No Recent Infectious Disease Expo: No Recent Hopitalizations: No Immunizations Up To Date Tetanus Booster (TDap): Unknown Seasonal Allergies Seasonal Allergies: No Past Medical History Surgeries: Yes (TRIPPLE BYPASS WITH STENT,CARPAL TUNNEL SURGERY; RIGHT HIP FX/ ORIF 11/2016; LEFT CHEST SURGERY FOR UNKNOWN REASON. ) Cardiac, CABG, Orthopedic Respiratory: Yes (NO INHALERS OR O2; ELEVATED LEFT HEMIDIAPHRAGM POST OP) COPD Currently Using CPAP: No Currently Using BIPAP: No Cardiac: Yes (S/P CABG) Coronary Artery Disease, High Cholesterol, Hypertension Neurological: No Reproductive Disorders: No Sexually Transmitted Disease: No HIV/AIDS: No Genitourinary: No Gastrointestinal: Yes (ELEVATED LEFT HEMIDIAPHRAGM POST LEFT CHEST SURGERY FOR UNKNOWN REASON. ) Gastroesophageal Reflux, Chronic Constipation Musculoskeletal: Yes (RIGHT HIP FX/ORIF) Degenerate Disk Disease, Arthritis, Chronic Back Pain, Fractures Endocrine: No HEENT: Yes (NOSEBLEEDS) Hearing Impairment: Hard of Hearing Cancer: No Psychosocial: No Integumentary: No Blood Disorders: Yes (POST OP ANEMIA AFTER HIP FX REPAIR--S/P TRANSFUSION) Adverse Reaction/Blood Tranf: No YES--POST OP Family Medical History Cardiovascular disease 19 FATHER 19 MOTHER G8 BROTHER G8 SISTER FH: breast cancer 19 MOTHER Hypertension 19 FATHER 19 MOTHER Physical Exam Vital Signs Vital Signs - First Documented 02/27/18 14:48 Temp 97.2 Pulse 106 Resp 18 B/P (MAP) 101/66 (78) Pulse Ox 98 O2 Delivery Room Air Height, Weight, BMI Height: 5'9.00" Weight: 125lbs. 9.6oz. 56.562570tu; 20.1 BMI Method:Stated General Appearance: WD/WN, no apparent distress Eyes: bilateral eye conjunctivae pale Nose: No active bleeding, No discharge; dried blood (ANTERIOR RIGHT NASAL SEPTUM. ); No sinus tenderness Mouth/Throat: normal mouth inspection, other (NO BLOOD IN POSTERIOR PHARYNX) Neck: normal inspection Cardiovascular: regular rate, rhythm Respiratory: no respiratory distress, no accessory muscle use, other (AUDIBLE WHEEZING AND RHONCHI FROM DOORWAY) Gastrointestinal: soft Neurologic/Psychiatric: gem cutter II-XII nml as tested, no motor/sensory deficits, alert, normal mood/affect, oriented x 3 Skin: warm/dry, pallor Procedures/Interventions Nasal : Nasal Location: Right Inspection with: Otoscope Nasal Procedures: Rapid Rhino (5.5 CM) Progress RAPID RHINO PLACED, AND TXA INSTILLED WELL NO BLEEDING AT ANY TIME DURING ER STAY Progress/Results/Core Measures Results/Orders Lab Results Laboratory Tests Test 02/27/18 14:53 Range/Units White Blood Count 8.4 4.3-11.0 10^3/uL Red Blood Count 2.33 L 4.35-5.85 10^6/uL Hemoglobin 8.1 L 13.3-17.7 G/DL Hematocrit 22 L 40-54 % Mean Corpuscular Volume 95 80-99 FL Mean Corpuscular Hemoglobin 35 H 25-34 PG Mean Corpuscular Hemoglobin Concent 37 H 32-36 G/DL Red Cell Distribution Width 13.3 10.0-14.5 % Platelet Count 270 130-400 10^3/uL Mean Platelet Volume 8.9 7.4-10.4 FL Neutrophils (%) (Auto) 82 H 42-75 % Lymphocytes (%) (Auto) 13 12-44 % Monocytes (%) (Auto) 5 0-12 % Eosinophils (%) (Auto) 0 0-10 % Basophils (%) (Auto) 0 0-10 % Neutrophils # (Auto) 6.9 1.8-7.8 X 10^3 Lymphocytes # (Auto) 1.1 1.0-4.0 X 10^3 Monocytes # (Auto) 0.4 0.0-1.0 X 10^3 Eosinophils # (Auto) 0.0 0.0-0.3 10^3/uL Basophils # (Auto) 0.0 0.0-0.1 10^3/uL Prothrombin Time 12.9 12.2-14.7 SEC INR Comment 1.0 0.8-1.4 Activated Partial Thromboplast Time 26 24-35 SEC Sodium Level 130 L 135-145 MMOL/L Potassium Level 4.2 3.6-5.0 MMOL/L Chloride Level 99 98-107 MMOL/L Carbon Dioxide Level 18 L 21-32 MMOL/L Anion Gap 13 5-14 MMOL/L Blood Urea Nitrogen 32 H 7-18 MG/DL Creatinine 0.65 0.60-1.30 MG/DL Estimat Glomerular Filtration Rate > 60 BUN/Creatinine Ratio 49 Glucose Level 107 H 70-105 MG/DL Calcium Level 8.6 8.5-10.1 MG/DL Corrected Calcium 8.9 8.5-10.1 MG/DL Total Bilirubin 0.3 0.1-1.0 MG/DL Aspartate Amino Transf (AST/SGOT) 22 5-34 U/L Alanine Aminotransferase (ALT/SGPT) 21 0-55 U/L Alkaline Phosphatase 57 40-136 U/L Troponin I < 0.30 <0.30 NG/ML B-Type Natriuretic Peptide 12.1 <100.0 PG/ML Total Protein 5.6 L 6.4-8.2 GM/DL Albumin 3.6 3.2-4.5 GM/DL Serum Alcohol < 10 <10 MG/DL My Orders Orders - SHY SCOTT DO Alcohol (02/27/18 14:58) Cbc With Automated Diff (02/27/18 14:58) Comprehensive Metabolic Panel (02/27/18 14:58) Protime With Inr (02/27/18 14:58) Partial Thromboplastin Time (02/27/18 14:58) Tranexamic Acid Injection (Cyklokapron I (02/27/18 15:02) Chest 1 View, Ap/Pa Only (02/27/18 15:19) Albuterol/Ipra Inhalation Soln (Duoneb I (02/27/18 15:30) Dexamethasone Injection (Decadron Inject (02/27/18 15:30) Rt Request For Service (02/27/18 15:19) Svn Small Volume Nebulizer (02/27/18 15:19) Methylprednisolone Sod Succ (Solu-Medrol (02/27/18 15:30) Albuterol/Ipra Inhalation Soln (Duoneb I (02/27/18 15:18) BNP (02/27/18 15:25) Troponin I (02/27/18 15:25) Ekg Tracing (02/27/18 15:25) Monitor-Rhythm Ecg Trace Only (02/27/18 15:25) Albuterol Pre-Mix Nebs (Rt) (Proventil (02/27/18 15:40) Medications Given in ED Current Medications Medications Dose Ordered Sig/Jorge Route Start Time Stop Time Status Last Admin Dose Admin Albuterol Sulfate 2.5 mg STK-MED ONCE .ROUTE 02/27/18 15:40 02/27/18 15:46 DC 02/27/18 15:46 2.5 MG Albuterol/ Ipratropium 3 ml ONCE ONCE INH 02/27/18 15:30 02/27/18 15:31 DC 02/27/18 15:30 3 ML Albuterol/ Ipratropium 3 ml STK-MED ONCE .ROUTE 02/27/18 15:18 02/27/18 15:23 DC 02/27/18 15:56 3 ML Dexamethasone Sodium Phosphate 20 mg ONCE ONCE IH 02/27/18 15:30 02/27/18 15:31 DC 02/27/18 15:29 20 MG Methylprednisolone Sodium Succinate 125 mg ONCE ONCE IVP 02/27/18 15:30 02/27/18 15:31 DC 02/27/18 15:45 125 MG Tranexamic Acid 1,000 mg STK-MED ONCE IV 02/27/18 15:02 02/27/18 15:07 DC 02/27/18 15:18 1,000 MG Vital Signs/I&O 02/27/18 02/27/18 02/27/18 02/27/18 14:48 15:31 15:46 15:56 Temp 97.2 Pulse 106 Resp 18 B/P (MAP) 101/66 (78) Pulse Ox 98 92 100 100 O2 Delivery Room Air Room Air Room Air Room Air Blood Pressure Mean: 78 Progress Progress Note : Progress Note PT GIVEN NEB TREATMENT X 3 WITH RESOLUTION OF WHEEZING AND INCREASED AERATION O2 SATS 100% ON ROOM AIR. NO DETERIORATION IN PT'S CONDITION DURING ER STAY Initial ECG Impression Date: Feb 27, 2018 Initial ECG Impression Time: 15:46 Initial ECG Rate: 102 Initial ECG Rhythm: Normal Sinus (IVCD, OLD ANTERIOR/LAT Q WAVES) Diagnostic Imaging Comments CXR--CHRONIC CHANGES, CHRONIC ELEVATED LEFT HEMIDIAPHRAGM, NO ACUTE PROCESS, PER RADIOLOGIST REPORT @ 1610 Reviewed: Reviewed by Me Departure Impression Primary Impression: Epistaxis Additional Impressions: COPD exacerbation Anemia ANTICOAGULATION THERAPY Disposition: 01 HOME, SELF-CARE Condition: Improved Departure-Patient Inst. Referrals: HELEN KRAMER MD, DAVID F MD (PCP/Family) Primary Care Physician Patient Instructions: Anemia Caused by Low Iron, Adult (DC), COPD Including Emphysema (DC), Nosebleeds (DC), Quitting Smoking for Older Adults Add. Discharge Instructions: LEAVE NASAL PACKING IN PLACE DO NOT RUB OR BLOW OR PICK AT NOSE AND TRY TO AVOID SNEEZING HOLD ASPIRIN AND PLAVIX UNTIL YOU ARE RECHECKED TAKE MULTIVITAMIN WITH IRON DAILY FOLLOW UP WITH DR. KRAMER IN 2-3 DAYS FOR NOSEBLEED FOLLOW UP WITH [facility] [place]EMIA All discharge instructions reviewed with patient and/or family. Voiced understanding. Scripts Amoxicillin (Amoxicillin) 875 Mg Tablet 875 MG PO BID for INFECTION, #20 TAB Prov: SHY SCOTT DO 02/27/18 Albuterol Sulfate (PROAIR HFA) 1 Puff Puff 2 PUFF IH Q4H for BREATHING, #1 GM USE WITH SPACER AT ALL TIMES Prov: SHY SCOTT DO 02/27/18 SHY SCOTT DO Feb 27, 2018 16:39
[2018-02-27 16:57] VITALS: BP 131/76
== END 2018-02-27 16:58 | disposition home or self-care (01) ==
LOC: EDUNIT# 14:47 → ER 14:48
DX: R04.0 Epistaxis (principal); J44.1 Chronic obstructive pulmonary disease with (acute) exacerbation; D64.9 Anemia, unspecified; I25.10 Atherosclerotic heart disease of native coronary artery without angina pectoris; E78.00 Pure hypercholesterolemia, unspecified; I10 Essential (primary) hypertension; K21.9 Gastro-esophageal reflux disease without esophagitis; F17.210 Nicotine dependence, cigarettes, uncomplicated; Z87.19 Personal history of other diseases of the digestive system; Z95.5 Presence of coronary angioplasty implant and graft; Z80.3 Family history of malignant neoplasm of breast; Z82.49 Family history of ischemic heart disease and other diseases of the circulatory system; Z95.1 Presence of aortocoronary bypass graft; Z79.51 Long term (current) use of inhaled steroids; Z79.82 Long term (current) use of aspirin; Z79.02 Long term (current) use of antithrombotics/antiplatelets; Z79.52 Long term (current) use of systemic steroids
CPT/HCPCS: 30901; 36415; 71045; 80053; 80320; 83880; 84484; 85025; 85610; 85730; 93005; 93041; 94640; 96374; 96375

== ENCOUNTER → 2018-03-01 | Outpatient (CLI) | payer MEDICARE ==
[~2018-03-01] VITALS: Ht 175.3 cm; Wt 57.0 kg
[2018-03-01] VITALS (7 sets, daily range): BP systolic 127–164; BP diastolic 79–90
[~2018-03-01] MED LIST changes: +ACETAMINOPHEN 500 MG TAB (TYLENOL) PO ONE; +AMOX875T2 PO; +ASPI-999 PO; +CILO100T PO; +CLOP75TA28 PO; +NS IV 500 ML 500 ML IV SCH; +POTA10TA10 PO; +RT-ALBUINH IH; +TERB250T16 PO; +diphenhydrAMINE 25 MG TAB (BENADRYL) PO ONE
[2018-03-01 16:24] LABS: HEMOGLOBIN 8.6 G/DL (13.3-17.7)
== END ==
LOC: SDC 12:43
PROVIDERS: ATTEND Pediatrics
DX: D62 Acute posthemorrhagic anemia (principal)
CPT/HCPCS: 36415; 36430; 85014; 85018; 86850; 86900; 86901; 86920

== ENCOUNTER 2018-03-08 05:36 | Outpatient (CLI) | payer MEDICARE ==
[~2018-03-08] VITALS: Ht 175.3 cm; Wt 57.0 kg
[~2018-03-08 05:36] MED LIST changes: -ACETAMINOPHEN 500 MG TAB (TYLENOL) PO ONE; -ASPI-999 PO; -CILO100T PO; -CLOP75TA28 PO; -NS IV 500 ML 500 ML IV SCH; -POTA10TA10 PO; -TERB250T16 PO; -diphenhydrAMINE 25 MG TAB (BENADRYL) PO ONE
[2018-03-08] MEDS ORDERED: TERB250T16 PO (10:31)
[2018-03-08] MEDS ORDERED: POTA10TA10 PO (10:31)
[2018-03-08] MEDS ORDERED: ASPI-999 PO (10:31)
[2018-03-08] MEDS ORDERED: LISI10TA2 PO (10:31)
[2018-03-08] MEDS ORDERED: CLOP75TA28 PO (10:31)
[2018-03-08] MEDS ORDERED: CILO100T PO (10:31)
== END 2018-03-08 10:36 | disposition home or self-care (01) ==
LOC: PREOP 05:36
PROVIDERS: ATTEND Surgery
DX: Z01.818 Encounter for other preprocedural examination (principal)

== ENCOUNTER 2018-03-10 06:27 | Day surgery (SDC) | payer MEDICARE ==
[~2018-03-10] VITALS: Ht 175.3 cm; Wt 57.0 kg
[~2018-03-10 06:27] MED LIST changes: +ASPI-999 PO; +CILO100T PO; +CLOP75TA28 PO; +POTA10TA10 PO; +TERB250T16 PO
[2018-03-10] MEDS ORDERED: LACTATED RINGERS 1,000 ML IV ONE (06:30)
[2018-03-10] MEDS ORDERED: LACTATED RINGERS 1,000 ML IV STA (06:42)
[2018-03-10] MEDS ORDERED: HURRICAINE EXT TUBE (BENZOCAINE) XX PRN (06:45)
--- OUTSIDE RECORDS SUMMARY | 2018-03-10 06:56 | XMS REPORT | Continuity of Care Document ---
Author Author [facility] Address Unknown Phone Unavailable Allergies Active Description Code Type Severity Reaction Onset Reported/Identified Relationship to Patient Clinical Status Yes NKANo Known Allergies NKA Miscellaneous Allergy Mild N/A 02/08/2009 Yes Zocor 20 mg tablet Drug Allergy 06/11/2011 Yes Zocor 20 mg tablet Drug Allergy N/A N/A 06/11/2011 Yes Neurontin 300 mg capsule Drug Allergy N/A N/A 08/20/2013 Yes No Known Drug Allergies [id number] Drug Allergy Unknown N/A 03/08/2018 Medications There is no data. Problems Date [...] MD 782.0 Burning Sensation (dysesthesia) 07/04/2008 MAN DOBIJAN 724.2 Lower Back Pain 07/04/2008 BIJAN MAN DO 724.2 Lower Back Pain 07/04/2008 PRISCILA PITT [...] ROD, PRISCILA 401.9 ESSENTIAL HYPERTENSION 11/08/2008 SWEETIE RDO, PRISCILA 716.90 Arthritis 11/08/2008 SWEETIE ROD, PRISCILA 401.9 ESSENTIAL HYPERTENSION 11/08/2008 SWEETIE ROD, PRISCILA 716.90 Arthritis 11/08/2008 SWEETIE ROD, PRISCILA 401.9 ESSENTIAL HYPERTENSION 11/08/2008 SWEETIE ROD, PRISCILA Armenta.90 Arthritis 11/08/2008 SWEETIE ROD, PRISCILA 401.9 ESSENTIAL HYPERTENSION 11/08/2008 SWEETIE ROD, PRISCILA 716.90 Arthritis 11/08/2008 SWEETIE ROD, PRISCILA 401.9 ESSENTIAL HYPERTENSION 11/08/2008 SWEETIE ROD, PRISCILA Armenta.90 Arthritis 01/10/2009 AL MAN DOA K 724.5 Backache 01/10/2009 AL MAN DOA K 724.5 Backache 01/10/2009 SWEETIE ROD, PRISCILA 724.5 Backache 01/10/2009 SWEETIE ROD, PRISCILA 724.5 Backache 01/10/2009 SWEETIE ROD, PRISCILA 724.5 Backache 01/10/2009 SWEETIE ROD, PRISCILA 724.5 Backache 01/10/2009 SWEETIE ROD, PRISCILA 724.5 Backache 01/10/2009 SWEETIE ROD, PRISCILA 724.5 Backache 01/10/2009 SWEETIE ROD, PRISCILA 724.5 Backache 01/10/2009 SWEETIE ROD, PRISCILA 724.5 Backache 01/10/2009 SWEETIE ROD, PRISCILA 724.5 Backache 01/10/2009 SWEETIE ROD, PRISCILA 724.5 Backache 01/16/2009 BIJAN MAN DO K 276.1 Hyponatremia Sodium Deficiency 01/16/2009 BIJAN MAN [...] MD 276.1 Hyponatremia Sodium Deficiency 12/11/2009 MAN AL RINCONA K 729.5 Pain In Limb 12/11/2009 MAN DO BIJAN K 780.8 Generalized Hyperhidrosis 12/11/2009 MAN DO BIJAN K 729.5 Pain In Limb 12/11/2009 MAN AL RINCONA K 780.8 Generalized Hyperhidrosis 12/11/2009 PRISCILA PITT MD9.5 Pain In Limb 12/11/2009 SWEETIE ROD, PRISCILA [...] PRISCILA PITT MD 780.8 Generalized Hyperhidrosis 01/27/2010 MAN DO BIJAN K 465.9 Upper Respiratory Infection 01/27/2010 MAN DO, BIJAN K 783.21 Weight Loss 01/27/2010 MAN DO BIJAN K 786.2 Cough 01/27/2010 MAN AL RINCONA K 465.9 Upper Respiratory Infection 01/27/2010 MAN DO BIJAN K 783.21 Weight Loss 01/27/2010 MAN DO BIJAN K 786.2 Cough 01/27/2010 PRISCILA PITT MD 465.9 Upper Respiratory Infection 01/27/2010 PRISCILA PITT MD 783.21 Weight Loss 01/27/2010 SWEETIE ROD, PRISCILA [...] 01/27/2010 SWEETIE ROD, PRISCILA 786.2 Cough 03/19/2010 MAN DO, BIJAN K 724.00 SPINAL STENOSIS OF UNSPECIFIED REGION 03/19/2010 MAN DO, BIJAN K 724.00 SPINAL STENOSIS OF UNSPECIFIED REGION [...] DO 414.01 CAD 04/02/2010 BIJAN MAN DO 414.01 CAD 04/02/2010 SWEETIE ROD, PRISCILA 414.01 [...] PRISCILA 414.01 CAD 05/06/2010 BIJAN MAN DO 786.52 Anterior Wall Chest Pain With Respiration 05/06/2010 BIJAN MAN DO 786.52 Anterior Wall Chest Pain With Respiration [...] Wall Chest Pain With Respiration 06/25/2010 BIJAN AMN DO 46Carole Pharyngitis Acute 06/25/2010 BIJAN MAN DO Pharyngitis Acute 06/25/2010 SWEETIE ROD, PRISCILA 46Carole Pharyngitis Acute 06/25/2010 SWEETIE ROD, PRISCILA 46Carole Pharyngitis Acute 06/25/2010 SWEETIE ROD, PRISCILA 46Carole Pharyngitis Acute 06/25/2010 SWEETIE ROD, PRISCILA 46Carole Pharyngitis Acute 06/25/2010 SWEETIE ROD, PRISCILA Keen Pharyngitis Acute 06/25/2010 SWEETIE ROD, PRISCILA 46Carole Pharyngitis Acute 06/25/2010 SWEETIE ROD, PRISCILA Keen Pharyngitis Acute 06/25/2010 SWEETIE ROD, PRISCILA Keen Pharyngitis Acute 06/25/2010 SWEETEI ROD, PRISCILA Keen Pharyngitis Acute 06/25/2010 SWEETIE [...] PRISCILA PITT MD 611.71 Breast Pain 09/22/2010 BIJAN MAN DO 380.11 Acute Infection Of Pinna 09/22/2010 BIJAN MAN DO V68.1 Issue Of Repeat Prescriptions 09/22/2010 BIJAN MAN DO 380.11 Acute Infection Of Pinna 09/22/2010 BIJAN MAN DO V68.1 Issue Of Repeat Prescriptions 09/22/2010 PRISCILA [...] Shortness Of Breath 11/11/2010 BIJAN MAN DO K 786.05 Shortness Of Breath 11/11/2010 PRISCILA PITT [...] MAN DO K 787.02 Nausea Alone 12/11/2010 BIJAN MAN DO K 787.02 Nausea Alone 12/11/2010 PRISCILA PITT MD7.02 [...] Upper Belly (epigastric) 03/23/2011 BIJAN MAN DO 789.06 Abdominal Pain [...] In The Central Upper Belly (epigastric) 04/06/2011 MAN DO, BIJAN K 443.9 PERIPHERAL ARTERIAL DISEASE 04/06/2011 BIJAN MAN DO K 443.9 PERIPHERAL ARTERIAL DISEASE 04/06/2011 PRISCILA PITT MD 443.9 PERIPHERAL ARTERIAL DISEASE 04/06/2011 PRISCILA PITT MD 443.9 PERIPHERAL ARTERIAL DISEASE 04/06/2011 SWEETIE ROD, PRISCILA 443.9 PERIPHERAL ARTERIAL DISEASE 04/06/2011 SWEETIE ROD, PRISCILA 443.9 PERIPHERAL ARTERIAL DISEASE 04/06/2011 PRISCILA PITT MD 44Filiberto.9 PERIPHERAL ARTERIAL DISEASE 04/06/2011 PRISCILA PITT MD 443.9 PERIPHERAL ARTERIAL DISEASE 04/06/2011 SWEETIE ROD, PRISCILA 443.9 PERIPHERAL ARTERIAL DISEASE 04/06/2011 PRISCILA PITT MD 44Filiberto.9 PERIPHERAL ARTERIAL DISEASE 04/06/2011 PRISCILA PITT MD 44Filiberto.9 PERIPHERAL ARTERIAL DISEASE 04/06/2011 PRISCILA PITT MD 443.9 PERIPHERAL ARTERIAL DISEASE 06/11/2011 BIJAN MAN DO [...] TOBACCO USE DISORDER 06/11/2011 PRISCILA PITT MD 46Jenna.9 Sinusitis Acute 06/11/2011 PRISCILA PITT MD 305.1 [...] 461.9 Sinusitis Acute 08/26/2011 BIJAN MAN DO K 268.9 VITAMIN D DEFICIENCY 08/26/2011 BIJAN MAN DO K 268.9 VITAMIN D DEFICIENCY 08/26/2011 PRISCILA PITT [...] PITT MD 268.9 VITAMIN D DEFICIENCY 01/26/2012 AL MAN DOA K 780.60 FEVER, UNSPECIFIED 01/26/2012 MAN DO BIJAN K 787.01 NAUSEA WITH VOMITING 01/26/2012 MAN AL RINCONA K 780.60 FEVER, UNSPECIFIED 01/26/2012 MAN DO BIJAN K 787.01 NAUSEA WITH VOMITING 01/26/2012 PRISCILA PITT MD 780.60 FEVER, UNSPECIFIED 01/26/2012 PRISCILA PITT MD 787.01 NAUSEA WITH VOMITING 01/26/2012 PRISCILA PITT MD 780.60 FEVER, UNSPECIFIED 01/26/2012 PRISCILA PITT MD 787.01 Nausea With Vomiting 01/26/2012 SWEETIE ROD, [...] Nausea With Vomiting 05/22/2012 SWEETIE ROD, PRISCILA Armenta.90 UNSPECIFIED ARTHROPATHY SITE UNSPECIFIED 05/22/2012 SWEETIE ROD, PRISCILA Armenta.90 UNSPECIFIED ARTHROPATHY SITE UNSPECIFIED 05/22/2012 SWEETIE ROD, PRISCILA Armenta.90 UNSPECIFIED ARTHROPATHY SITE UNSPECIFIED 05/22/2012 SWEETIE ROD, PRISCILA Armenta.90 UNSPECIFIED ARTHROPATHY SITE UNSPECIFIED 05/22/2012 SWEETIE ROD, PRISCILA Armenta.90 UNSPECIFIED ARTHROPATHY SITE UNSPECIFIED 05/22/2012 SWEETIE ROD, PRISCILA Armenta.90 UNSPECIFIED ARTHROPATHY SITE UNSPECIFIED 05/22/2012 SWEETIE ROD, PRISCILA Armenta.90 UNSPECIFIED ARTHROPATHY SITE UNSPECIFIED 05/22/2012 SWEETIE ROD, PRISCILA Araya6.90 UNSPECIFIED ARTHROPATHY SITE UNSPECIFIED 05/22/2012 SWEETIE ROD, PRISCILA Armenta.90 UNSPECIFIED ARTHROPATHY SITE UNSPECIFIED 05/22/2012 PRISCILA PITT MD 716.90 UNSPECIFIED ARTHROPATHY SITE UNSPECIFIED 05/22/2013 PRISCILA PITT MD 276.1 HYPOSMOLALITY AND/OR HYPONATREMIA 05/22/2013 PRISCILA PITT MD 530.11 REFLUX ESOPHAGITIS 05/22/2013 PRISCILA PITT MD 276.1 HYPOSMOLALITY AND/OR HYPONATREMIA 05/22/2013 SWEETIE ROD, PRISCILA 530.11 REFLUX ESOPHAGITIS 05/22/2013 PRISCILA PITT MD 276.1 HYPOSMOLALITY AND/OR HYPONATREMIA 05/22/2013 PRISCILA PITT MD 530.11 REFLUX ESOPHAGITIS 05/22/2013 PRISCILA PITT MD 276.1 HYPOSMOLALITY AND/OR HYPONATREMIA 05/22/2013 SWEETIE ROD, PRISCILA 530.11 REFLUX ESOPHAGITIS 05/22/2013 PRISCILA PITT MD 276.1 HYPOSMOLALITY AND/OR HYPONATREMIA 05/22/2013 PRISCILA PITT MD 530.11 REFLUX ESOPHAGITIS 05/22/2013 PRISCILA PITT MD 276.1 HYPOSMOLALITY AND/OR HYPONATREMIA 05/22/2013 PRISCILA PITT MD 530.11 REFLUX ESOPHAGITIS 05/22/2013 PRISCILA PITT MD 276.1 HYPOSMOLALITY AND/OR HYPONATREMIA 05/22/2013 PRISCILA PITT MD 530.11 REFLUX ESOPHAGITIS 12/05/2013 MOY FELDER MD Ot 272.0 PURE HYPERCHOLESTEROLEM 12/05/2013 MOY FELDER MD Ot 276.1 HYPOSMOLALITY 12/05/2013 MOY FELDER MD Ot 303.90 ALCOH DEP NEC/NOS-UNSPEC 12/05/2013 MOY FELDER MD Ot 401.9 HYPERTENSION NOS 12/05/2013 MOY FELDER MD Ot 433.10 CAROTID ARTERY OCCLUSION W O CEREBRAL IN 12/05/2013 MOY FELDER MD Ot 530.81 ESOPHAGEAL REFLUX 12/05/2013 MOY FELDER MD Ot 716.90 ARTHROPATHY NOS-UNSPEC 12/05/2013 MOY FELDER MD Ot 737.30 IDIOPATHIC SCOLIOSIS 12/05/2013 MOY FELDER MD Ot 873.8 OPEN WOUND OF HEAD NEC 12/05/2013 EMERITA ROD, MOY Maier Ot E888.1 FALL STRIKING OBJECT NEC 03/08/2014 SWEETIE ROD, PRISCILA 466.0 ACUTE BRONCHITIS [...] 04/25/2015 BECCA ROD, SHIN Ot Z01.818 01/02/2016 PRISCILA PITT MD Ot M47.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, LUMBAR REGION 01/02/2016 PRISCILA PITT MD Ot M47.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, LUMBAR REGION 01/27/2016 PRISCILA PITT MD Ot M47.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, LUMBAR REGION 05/05/2016 JOYCE MARRUFO Ot F17.210 NICOTINE DEPENDENCE, CIGARETTES, UNCOMPL 05/05/2016 HEBERT PA, JOYCE L Ot I10 ESSENTIAL (PRIMARY) HYPERTENSION 05/05/2016 JOYCE MARRUFO Ot R04.0 EPISTAXIS 05/05/2016 JOYCE MARRUFO Ot Z79.02 COMMERCIAL LINES ACCOUNT MANAGER (CURRENT) USE OF ANTITHROMBOTI 05/05/2016 JOYCE MARRUFO Ot Z79.82 CORRECTION (CURRENT) USE OF ASPIRIN 05/05/2016 JOYCE MARRUFO Ot Z79.899 OTHER CORRECTION (CURRENT) DRUG THERAPY 05/06/2016 JOYCE MARRUFO Ot F17.210 NICOTINE DEPENDENCE, CIGARETTES, UNCOMPL 05/06/2016 GONZÁLEZ MARRUFOEN Lucas Ot I10 ESSENTIAL (PRIMARY) HYPERTENSION 05/06/2016 JOYCE MARRUFO Ot R04.0 EPISTAXIS 05/06/2016 JOYCE MARRUFO Ot Z79.02 COMMERCIAL LINES ACCOUNT MANAGER (CURRENT) USE OF ANTITHROMBOTI 05/06/2016 JOYCE MARRUFO Ot Z79.82 COMMERCIAL LINES ACCOUNT MANAGER (CURRENT) USE OF ASPIRIN 05/06/2016 JOYCE MARRUFO Ot Z79.899 OTHER COMMERCIAL LINES ACCOUNT MANAGER (CURRENT) DRUG THERAPY 05/09/2016 JERALD JONES MD Ot D64.9 ANEMIA, UNSPECIFIED 05/09/2016 JERALD JONES MD Ot E87.1 HYPO-OSMOLALITY AND HYPONATREMIA 05/09/2016 JERALD JONES MD Ot F17.210 NICOTINE DEPENDENCE, CIGARETTES, UNCOMPL 05/09/2016 JERALD JONES MD Ot R04.0 EPISTAXIS 05/09/2016 JERALD JONES MD Ot Z79.02 CORRECTION (CURRENT) USE OF ANTITHROMBOTI 05/15/2016 JERALD JONES MD Ot D64.9 ANEMIA, UNSPECIFIED 05/15/2016 JERALD JONES MD Ot E87.1 HYPO-OSMOLALITY AND HYPONATREMIA 05/15/2016 JERALD JONES MD Ot F17.210 NICOTINE DEPENDENCE, CIGARETTES, UNCOMPL 05/15/2016 JERALD JONES MD Ot R04.0 EPISTAXIS 05/15/2016 JERALD JONES MD Ot Z79.02 CORRECTION (CURRENT) USE OF ANTITHROMBOTI 05/15/2016 ELIAS FORTE MD Ot F17.210 NICOTINE DEPENDENCE, CIGARETTES, UNCOMPL 05/15/2016 ELIAS FORTE MD Ot I10 ESSENTIAL (PRIMARY) HYPERTENSION 05/15/2016 ELIAS FORTE MD Ot R04.0 EPISTAXIS 05/15/2016 ELIAS FORTE MD Ot Z79.02 CORRECTION (CURRENT) USE OF ANTITHROMBOTI 05/15/2016 ELIAS FORTE MD Ot Z79.82 COMMERCIAL LINES ACCOUNT MANAGER (CURRENT) USE OF ASPIRIN 05/15/2016 ELIAS FORTE MD Ot Z79.899 OTHER COMMERCIAL LINES ACCOUNT MANAGER (CURRENT) DRUG THERAPY 05/15/2016 ELIAS FORTE MD [...] DO Ot I25.10 ATHSCL HEART DISEASE OF [place] CORONARY 12/06/2016 JUAN RAY DO Ot J44.9 [...] JUAN RAY DO Ot Y92.000 [facility] OF [facility] NON-INSTITUT (PRIVATE) R 12/06/2016 JUAN RAY DO Ot Z79.899 OTHER CORRECTION (CURRENT) DRUG THERAPY 12/06/2016 JUAN RAY DO [...] DO Ot I25.10 ATHSCL HEART DISEASE OF [place] CORONARY 12/06/2016 JUAN RAY DO Ot J44.9 [...] JUAN RAY DO Ot Y92.000 [facility] NON-INSTITUT (PRIVATE) R 12/06/2016 JUAN RAY DO Ot Z79.899 OTHER COMMERCIAL LINES ACCOUNT MANAGER (CURRENT) DRUG THERAPY 12/06/2016 JUAN RAY DO Ot Z95.1 PRESENCE OF AORTOCORONARY BYPASS GRAFT 12/07/2016 SAMANTHA RAY DOI Ot D62 ACUTE POSTHEMORRHAGIC ANEMIA 12/07/2016 JUAN RAY DO Ot E78.00 PURE HYPERCHOLESTEROLEMIA, UNSPECIFIED 12/07/2016 SAMANTHA RAY DOI Ot E87.1 HYPO-OSMOLALITY AND HYPONATREMIA 12/07/2016 SAMANTHA RAY DOI Ot F17.210 NICOTINE DEPENDENCE, CIGARETTES, UNCOMPL 12/07/2016 SAMANTHA RAY DOI Ot H91.90 UNSPECIFIED HEARING LOSS, UNSPECIFIED EA 12/07/2016 SAMANTHA RAY DOI Ot I10 ESSENTIAL (PRIMARY) HYPERTENSION 12/07/2016 SAMANTHA RAY DOI Ot I25.10 ATHSCL HEART DISEASE OF [place] CORONARY 12/07/2016 JUAN RAY DO Ot J44.9 CHRONIC OBSTRUCTIVE PULMONARY DISEASE, U 12/07/2016 SAMANTHA RAY DOI Ot K21.9 GASTRO-ESOPHAGEAL REFLUX DISEASE WITHOUT 12/07/2016 SAMANTHA RAY DOI Ot L02.31 CUTANEOUS ABSCESS OF BUTTOCK 12/07/2016 JUAN RAY DO Ot M19.91 PRIMARY OSTEOARTHRITIS, UNSPECIFIED SITE 12/07/2016 JUAN RAY DO Ot M41.9 SCOLIOSIS, UNSPECIFIED 12/07/2016 SAMANTHA RAY DOI Ot M54.5 LOW BACK PAIN 12/07/2016 JUAN RAY DO Ot R29.898 OTH SYMPTOMS AND SIGNS INVOLVING THE MUS 12/07/2016 JUAN RAY DO Ot S40.021A CONTUSION OF RIGHT UPPER ARM, INITIAL EN 12/07/2016 SAMANTHA RAY DOI Ot S40.022A CONTUSION OF LEFT UPPER ARM, INITIAL ENC 12/07/2016 JUAN RAY DO Ot S72.141A DISPLACED INTERTROCHANTERIC FRACTURE OF 12/07/2016 JUAN RAY DO Ot W18.09XA STRIKING AGAINST OTH OBJECT W SUBSEQUENT 12/07/2016 RAYJUAN BOWMAN DO Ot Y92.000 [facility] NON-INSTITUT (PRIVATE) R 12/07/2016 RAYJUAN BOWMAN DO Ot Z79.899 OTHER COMMERCIAL LINES ACCOUNT MANAGER (CURRENT) DRUG THERAPY 12/07/2016 JUAN RAY DO Ot Z95.1 PRESENCE OF AORTOCORONARY BYPASS GRAFT 12/14/2016 MAYKEL HUERTAS MD E Ot D62 ACUTE POSTHEMORRHAGIC ANEMIA 12/14/2016 MAYKEL HUERTAS MD E Ot E78.00 PURE HYPERCHOLESTEROLEMIA, UNSPECIFIED 12/14/2016 MAYKEL HUERTAS MD E Ot E87.1 HYPO-OSMOLALITY AND HYPONATREMIA 12/14/2016 MAYKEL HUERTAS MD E Ot E87.6 HYPOKALEMIA 12/14/2016 MAYKEL HUERTAS MD E Ot F17.200 NICOTINE DEPENDENCE, UNSPECIFIED, UNCOMP 12/14/2016 MAYKEL HUERTAS MD E Ot G31.84 MILD COGNITIVE IMPAIRMENT, SO STATED 12/14/2016 ALEKSANDAR ROD MAYKEL E Ot H91.10 PRESBYCUSIS, UNSPECIFIED EAR 12/14/2016 ALEKSANDAR ROD MAYKEL E Ot I10 ESSENTIAL (PRIMARY) HYPERTENSION 12/14/2016 ALEKSANDAR ROD MAYKEL E Ot I25.10 ATHSCL HEART DISEASE OF [place] CORONARY 12/14/2016 ALEKSANDAR ROD MAYKEL E Ot J44.9 CHRONIC OBSTRUCTIVE PULMONARY DISEASE, U 12/14/2016 ALEKSANDAR ROD MAYKEL E Ot K21.9 GASTRO-ESOPHAGEAL REFLUX DISEASE WITHOUT 12/14/2016 ALEKSANDAR ROD MAYKEL E Ot M16.11 UNILATERAL PRIMARY OSTEOARTHRITIS, RIGHT 12/14/2016 ALEKSANDAR ROD MAYKEL E Ot M41.9 SCOLIOSIS, UNSPECIFIED 12/14/2016 ALEKSANDAR ROD MAYKEL E Ot M54.5 LOW BACK PAIN 12/14/2016 MAYKEL HUERTAS MD E Ot R41.3 OTHER AMNESIA 12/14/2016 MAYKEL HUERTAS MD E Ot R53.81 OTHER MALAISE 12/14/2016 MAYKEL HUERTAS MD E Ot S72.141D DISPL INTERTROCH FX R FEMUR, SUBS FOR CL 12/14/2016 MAYKEL HUERTAS MD E Ot Z95.1 PRESENCE OF AORTOCORONARY BYPASS GRAFT 12/14/2016 MAYKEL HUERTAS MD E Ot Z95.5 PRESENCE OF CORONARY ANGIOPLASTY IMPLANT 12/20/2016 MAYKEL HUERTAS MD Ot D62 ACUTE POSTHEMORRHAGIC ANEMIA 12/20/2016 MAYKEL HUERTAS MD E Ot E78.00 PURE HYPERCHOLESTEROLEMIA, UNSPECIFIED 12/20/2016 MAYKEL HUERTAS MD E Ot E87.1 HYPO-OSMOLALITY AND HYPONATREMIA 12/20/2016 [...] E Ot I25.10 ATHSCL HEART DISEASE OF [place] CORONARY 12/20/2016 MAYKEL HUERTAS MD E Ot [...] SUBS FOR CL 12/20/2016 MAYKEL HUERTAS MD Ot Z95.1 PRESENCE OF AORTOCORONARY BYPASS GRAFT 12/20/2016 MAYKEL HUERTAS MD Ot Z95.5 PRESENCE OF [...] E Ot I25.10 ATHSCL HEART DISEASE OF [place] CORONARY 12/21/2016 MAYKEL HUERTAS MD Ot J44.9 CHRONIC OBSTRUCTIVE PULMONARY DISEASE, U [...] E Ot I10 ESSENTIAL (PRIMARY) HYPERTENSION 12/21/2016 JOHANN HUERTAS MDIC E Ot I25.10 ATHSCL HEART DISEASE OF [place] CORONARY 12/21/2016 MAYKEL HUERTAS MD E Ot J44.9 CHRONIC OBSTRUCTIVE PULMONARY DISEASE, U 12/21/2016 MAYKEL HUERTAS MD E Ot K21.9 GASTRO-ESOPHAGEAL REFLUX DISEASE WITHOUT 12/21/2016 JOHANN HUERTAS MDIC E Ot M16.11 UNILATERAL PRIMARY OSTEOARTHRITIS, RIGHT 12/21/2016 JOHANN HUERTAS MDIC E Ot M41.9 SCOLIOSIS, UNSPECIFIED 12/21/2016 JOHANN HUERTAS MDIC E Ot M54.5 LOW BACK PAIN 12/21/2016 MAYKEL HUERTAS MD E Ot R41.3 OTHER AMNESIA 12/21/2016 MAYKEL HUERTAS MD E Ot R53.81 OTHER MALAISE 12/21/2016 JOHANN HUERTAS MDIC E Ot S72.141D DISPL INTERTROCH FX R FEMUR, SUBS FOR CL 12/21/2016 MAYKEL HUERTAS MD E Ot Z95.1 PRESENCE OF AORTOCORONARY BYPASS GRAFT 12/21/2016 MAYKEL HUERTAS MD E Ot Z95.5 PRESENCE OF CORONARY ANGIOPLASTY IMPLANT 12/23/2016 JOHANN HUERTAS MDIC E Ot B35.1 TINEA UNGUIUM 12/23/2016 MAYKEL HUERTAS MD E Ot D62 ACUTE POSTHEMORRHAGIC ANEMIA 12/23/2016 JOHANN HUERTAS MDIC E Ot E78.00 PURE HYPERCHOLESTEROLEMIA, UNSPECIFIED 12/23/2016 JOHANN HUERTAS MDIC E Ot E87.1 HYPO-OSMOLALITY AND HYPONATREMIA 12/23/2016 MAYKEL HUERTAS MD E Ot E87.6 HYPOKALEMIA 12/23/2016 JOHANN HUERTAS MDIC E Ot F17.200 NICOTINE DEPENDENCE, UNSPECIFIED, UNCOMP 12/23/2016 JOHANN HUERTAS MDIC E Ot G31.84 MILD COGNITIVE IMPAIRMENT, SO STATED 12/23/2016 MAYKEL HUERTAS MD E Ot G60.9 HEREDITARY AND IDIOPATHIC NEUROPATHY, UN 12/23/2016 MAYKEL HUERTAS MD E Ot H91.10 PRESBYCUSIS, UNSPECIFIED EAR 12/23/2016 MAYKEL HUERTAS MD E Ot I10 ESSENTIAL (PRIMARY) HYPERTENSION 12/23/2016 MAYKEL HUERTAS MD E Ot I25.10 ATHSCL HEART DISEASE OF [place] CORONARY 12/23/2016 HUERTAS MD, MAYKEL E Ot I73.9 PERIPHERAL VASCULAR DISEASE, UNSPECIFIED 12/23/2016 ALEKSANDAR ROD MAYKEL E Ot J44.9 CHRONIC OBSTRUCTIVE PULMONARY DISEASE, U 12/23/2016 ALEKSANDAR ROD MAYKEL E Ot K21.9 GASTRO-ESOPHAGEAL REFLUX DISEASE WITHOUT 12/23/2016 ALEKSANDAR ROD, MAYKEL E Ot M11.261 OTHER CHONDROCALCINOSIS, RIGHT KNEE 12/23/2016 ALEKSANDAR ROD MAYKEL E Ot M16.11 UNILATERAL PRIMARY OSTEOARTHRITIS, RIGHT 12/23/2016 ALEKSANDAR ROD MAYKEL E Ot M17.11 UNILATERAL PRIMARY OSTEOARTHRITIS, RIGHT 12/23/2016 ALEKSANDAR ROD MAYKEL E Ot M20.5X1 OTHER DEFORMITIES OF TOE(S) (ACQUIRED), 12/23/2016 JOHANN HUERTAS MDIC E Ot M41.9 SCOLIOSIS, UNSPECIFIED 12/23/2016 ALEKSANDAR ROD MAYKEL E Ot M54.5 LOW BACK PAIN 12/23/2016 ALEKSANDAR ROD MAYKEL E Ot R41.3 OTHER AMNESIA 12/23/2016 JOHANN HUERTAS MDIC E Ot R53.81 OTHER MALAISE 12/23/2016 ALEKSANDAR ROD MAYKEL E Ot S72.141D DISPL INTERTROCH FX R FEMUR, SUBS FOR CL 12/23/2016 ALEKSANDAR ROD MAYKEL E Ot Z95.1 PRESENCE OF AORTOCORONARY BYPASS GRAFT 12/23/2016 ALEKSANDAR ROD MAYKEL E Ot Z95.5 PRESENCE OF CORONARY ANGIOPLASTY [...] IN WALKING, NOT ELSEWHERE CLASSIFIED 02/03/2017 Priscila Pitt S72.111D DISP FX OF GREATER TROCHANTER OF R FEMR, 7THD 02/03/2017 Priscila Pitt V54.13 02/03/2017 Priscila Pitt W V54.89 OTHER ORTHOPEDIC AFTERCARE 02/03/2017 Priscila Pitt W Z47.89 ENCOUNTER FOR OTHER ORTHOPEDIC AFTERCARE 02/27/2018 KATHY ROD, LA Stevens Ot 443.9 PERIPH VASCULAR DIS NOS 02/27/2018 BECCA ROD, SHIN Dodd 443.9 PERIPH VASCULAR DIS NOS 02/27/2018 BECCA ROD, SHIN Dodd V72.63 PRE-PROCEDURAL LABORATORY EXAMINATION 02/27/2018 BECCA ROD, SHIN Dodd V72.83 EXAM PRE-OPERATIVE NEC 02/27/2018 BECCA ROD, SHIN Dodd 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1 CHRONIC OBSTRUCTIVE PULMONARY DISEASE W 03/01/2018 JACQUELINE SCOTT DOA K Ot K21.9 GASTRO-ESOPHAGEAL REFLUX DISEASE WITHOUT 03/01/2018 TYLER DO SHY K Ot R04.0 EPISTAXIS 03/01/2018 TYLER RINCON SHY K Ot Z79.02 COMMERCIAL LINES ACCOUNT MANAGER (CURRENT) USE OF ANTITHROMBOTI 03/01/2018 JACQUELINE SCOTT DOA K Ot Z79.51 COMMERCIAL LINES ACCOUNT MANAGER (CURRENT) USE OF INHALED STERO 03/01/2018 JACQUELINE SCOTT DOA K Ot Z79.52 COMMERCIAL LINES ACCOUNT MANAGER (CURRENT) USE OF SYSTEMIC STER 03/01/2018 SHY SCOTT DO Ot Z79.82 COMMERCIAL LINES ACCOUNT MANAGER (CURRENT) USE OF ASPIRIN 03/01/2018 SHY SCOTT DO Ot Z80.3 FAMILY HISTORY OF MALIGNANT NEOPLASM OF 03/01/2018 SHY SCOTT DO Ot Z82.49 FAMILY HX OF ISCHEM HEART DIS AND OTH DI 03/01/2018 SHY SCOTT DO Ot Z87.19 PERSONAL HISTORY OF OTHER DISEASES OF TH 03/01/2018 SHY SCOTT DO Ot Z95.1 PRESENCE OF AORTOCORONARY BYPASS GRAFT 03/01/2018 SHY SCOTT DO Ot Z95.5 PRESENCE OF CORONARY ANGIOPLASTY IMPLANT 03/06/2018 ANIRUDH ROD, BAYRON Hernandez Ot D62 ACUTE POSTHEMORRHAGIC ANEMIA Procedures Code Description [place] [address] ROUTINE VENIPUNCTURE 04/19/2013 2022685 GFR CALC (RESULT ONLY) 04/19/2013 49406 CMP 04/19/2013 94681 LIPID PANEL 04/19/2013 79988 ROUTINE VENIPUNCTURE 05/21/2013 [id number] GFR CALC (RESULT ONLY) 05/21/2013 18322 BMP 05/21/2013 88963 ROUTINE VENIPUNCTURE 08/20/2013 00472 BMP 08/20/2013 [id number] GFR CALC (RESULT ONLY) 08/20/2013 04093 ROUTINE VENIPUNCTURE 05/27/2014 [id number] GFR CALC (RESULT ONLY) 05/27/2014 33301 CMP 05/27/2014 84976 LIPID PANEL 05/27/2014 [id number] REPOSITION R UP FEMUR WITH INTRAMED FIX, [...] 18:11 Bacteria identification in wound by culture [id number] [facility] FREE TEXT EXTERNAL SENSITIVITY REPORTED 12/05 07:10 NRG QUANTITY OF GROWTH Abundant Growth NR Bacterial susceptibility panel - 12/03/16 18:11 Oxacillin [...] CELLS LEUKO REDUCED AS1 TRANSFUSED 12/06/16 0803 NR Blood type T Indirect antibody screen panel - 12/06/16 06:54 ABO+Rh group AP NRG Transfusion band number [id number] NRG Blood group antibody screen NEGATIVE NRG [...] 0.0 10*3/uL 0.0-0.1 Comprehensive metabolic panel - 12/07/16 03:53 Serum or plasma sodium measurement (moles/volume) [...] 7-25 CREATININE 0.53 mg/dL 0.70-1.25 eGFR NON-AFR. [place] 110 mL/min/1.73m2 > OR=60 eGFR 128 mL/min/1.73m2 > OR=60 BUN/CREATININE RATIO 9 (calc) 6-22 SODIUM 130 mmol/L 135-146 POTASSIUM 4.2 mmol/L 3.5-5.3 CHLORIDE 98 mmol/L 98-110 CARBON DIOXIDE 25 mmol/L 20-31 CALCIUM 9.2 mg/dL 8.6-10.3 PDM - TRAMADOL - 10/06/17 09:28 Prescribed Drug 1 Clymer(TM) NRG COMMENT NRG Desmethyltramadol 1865 ng/mL <100 medMATCH Desmethyltram CONSISTENT NRG Tramadol 7844 ng/mL <100 medMATCH Tramadol CONSISTENT NRG Prescribed Drug 2 Tramadol NRG Prescribed Drug 3 Tramadol NRG Prescribed Drug 4 Clymer(TM) NRG Prescribed Drug 5 Tramadol NRG CMP - 11/24/17 10:20 GLUCOSE 64 mg/dL 65-99 UREA NITROGEN (BUN) 6 mg/dL 7-25 CREATININE 0.57 mg/dL 0.70-1.25 eGFR NON-AFR. [place] 107 mL/min/1.73m2 > OR=60 eGFR 124 mL/min/1.73m2 [...] 7-25 CREATININE 0.60 mg/dL 0.70-1.25 eGFR NON-AFR. [place] 105 mL/min/1.73m2 > OR=60 eGFR 121 mL/min/1.73m2 > OR=60 BUN/CREATININE RATIO 8 (calc) 6-22 SODIUM 131 mmol/L 135-146 POTASSIUM 4.3 mmol/L 3.5-5.3 CHLORIDE 98 mmol/L 98-110 CARBON DIOXIDE 27 mmol/L 20-32 CALCIUM 9.3 mg/dL 8.6-10.3 URIC ACID, SERUM - 01/02/18 09:22 URIC ACID 4.5 mg/dL 4.0-8.0 Complete blood count (CBC) with automated white blood cell (WBC) differential - 02/27/18 14:53 Blood leukocytes automated count (number/volume) 8.4 10*3/uL 4.3-11.0 Blood erythrocytes automated count (number/volume) 2.33 10*6/uL 4.35-5.85 Venous blood hemoglobin measurement (mass/volume) 8.1 g/dL 13.3-17.7 Blood hematocrit (volume fraction) 22 % 40-54 Automated erythrocyte mean corpuscular volume 95 [foz_us] 80-99 Automated erythrocyte mean corpuscular hemoglobin (mass per erythrocyte) 35 pg 25-34 Automated erythrocyte mean corpuscular hemoglobin concentration measurement ( mass/volume) 37 g/dL 32-36 Automated erythrocyte distribution width ratio 13.3 % 10.0-14.5 Automated blood platelet count (count/volume) 270 10*3/uL 130-400 Automated blood platelet mean volume measurement 8.9 [foz_us] 7.4-10.4 Automated blood neutrophils/100 leukocytes 82 % 42-75 Automated blood lymphocytes/100 leukocytes 13 % 12-44 Blood monocytes/100 leukocytes 5 % 0-12 Automated blood eosinophils/100 leukocytes 0 % 0-10 Automated blood basophils/100 leukocytes 0 % 0-10 Blood neutrophils automated count (number/volume) 6.9 10*3 1.8-7.8 Blood lymphocytes automated count (number/volume) 1.1 10*3 1.0-4.0 Blood monocytes automated count (number/volume) 0.4 10*3 0.0-1.0 Automated eosinophil count 0.0 10*3/uL 0.0-0.3 Automated blood basophil count (count/volume) 0.0 10*3/uL 0.0-0.1 PT panel in platelet poor plasma by coagulation assay - 02/27/18 14:53 Prothrombin time (PT) in platelet poor plasma by coagulation assay 12.9 s 12.2-14.7 INR in platelet poor plasma or blood by coagulation assay 1.0 0.8-1.4 Activated partial thromboplastin time (aPTT) in platelet poor plasma bycoagulation assay - 02/27/18 14:53 Activated partial thromboplastin time (aPTT) in platelet poor plasma bycoagulation assay 26 s 24-35 Comprehensive metabolic panel - 02/27/18 14:53 Serum or plasma sodium measurement (moles/volume) 130 mmol/L 135-145 Serum or plasma potassium measurement (moles/volume) 4.2 mmol/L 3.6-5.0 Serum or plasma chloride measurement (moles/volume) 99 mmol/L 98-107 Carbon dioxide 18 mmol/L 21-32 Serum or plasma anion gap determination (moles/volume) 13 mmol/L 5-14 Serum or plasma urea nitrogen measurement (mass/volume) 32 mg/dL 7-18 Serum or plasma creatinine measurement (mass/volume) 0.65 mg/dL 0.60-1.30 Serum or plasma urea nitrogen/creatinine mass ratio 49 NRG Serum or plasma creatinine measurement with calculation of estimated glomerular filtration rate > NRG Serum or plasma glucose measurement (mass/volume) 107 mg/dL 70-105 Serum or plasma calcium measurement (mass/volume) 8.6 mg/dL 8.5-10.1 Serum or plasma total bilirubin measurement (mass/volume) 0.3 mg/dL 0.1-1.0 Serum or plasma alkaline phosphatase measurement (enzymatic activity/volume) 57 U/L 40-136 Serum or plasma aspartate aminotransferase measurement (enzymatic activity/ volume) 22 U/L 5-34 Serum or plasma alanine aminotransferase measurement (enzymatic activity/volume ) 21 U/L 0-55 Serum or plasma protein measurement (mass/volume) 5.6 g/dL 6.4-8.2 Serum or plasma albumin measurement (mass/volume) 3.6 g/dL 3.2-4.5 CALCIUM CORRECTED 8.9 mg/dL 8.5-10.1 Serum or plasma ethanol measurement (mass/volume) - 02/27/18 14:53 Serum or plasma ethanol measurement (mass/volume) < mg/dL <10 Serum or plasma troponin i.cardiac measurement (mass/volume) - 02/27/18 14:53 Serum or plasma troponin i.cardiac measurement (mass/volume) < ng/ mL <0.30 Serum or plasma lithium measurement (moles/volume) - 02/27/18 14:53 BNP level 12.1 pg/mL <100.0 CBC - 02/28/18 12:35 WHITE BLOOD CELL COUNT 14.1 Thousand/uL 3.8-10.8 RED BLOOD CELL COUNT 2.16 Million/uL 4.20-5.80 HEMOGLOBIN 7.2 g/dL 13.2-17.1 HEMATOCRIT 21.2 % 38.5-50.0 MCV 98.1 fL 80.0-100.0 MCH 33.3 pg 27.0-33.0 MCHC 34.0 g/dL 32.0-36.0 RDW 12.2 % 11.0-15.0 PLATELET COUNT 252 Thousand/uL 140-400 MPV 9.4 fL 7.5-12.5 ABSOLUTE NEUTROPHILS 58065 cells/uL 6875-0410 ABSOLUTE LYMPHOCYTES 1495 cells/uL 850-3900 ABSOLUTE MONOCYTES 959 cells/uL 200-950 ABSOLUTE EOSINOPHILS 14 cells/uL 15-500 ABSOLUTE BASOPHILS 14 cells/uL 0-200 NEUTROPHILS 82.4 % NRG LYMPHOCYTES 10.6 % NRG MONOCYTES 6.8 % NRG EOSINOPHILS 0.1 % NRG BASOPHILS 0.1 % NRG RED CELLS LEUKO REDUCED AS1 - 03/01/18 13:10 RED CELLS LEUKO REDUCED AS1 TRANSFUSED 03/01/18 1351 NRG Blood type T Indirect antibody screen panel - 03/01/18 13:10 ABO+Rh group AP NRG Transfusion band number [id number] NRG Blood group antibody screen NEGATIVE NRG Whole blood hemoglobin and hematocrit panel - 03/01/18 16:20 Venous blood hemoglobin measurement (mass/volume) 8.6 g/dL 13.3-17.7 Blood hematocrit (volume fraction) 24 % 40-54 Encounters ACCT No. Visit Date/Time Discharge Status Pt. Type Provider Facility Loc./Unit Complaint [id number] 09/06/2014 13:46:00 09/06/2014 23:59:59 [facility] Outpatient PRISCILA PITT MD [id number] 07/22/2014 09:40:00 07/22/2014 23:59:59 [facility] Outpatient PRISCILA PITT MD [id number] 05/27/2014 08:16:00 05/27/2014 23:59:59 [facility] Outpatient PRISCILA PITT MD [id number] 03/08/2014 10:31:00 03/08/2014 23:59:59 [facility] Outpatient PRISCILA PITT MD [id number] 11/22/2013 10:31:00 11/22/2013 23:59:59 [facility] Outpatient PRISCILA PITT MD [id number] 08/20/2013 10:00:00 08/20/2013 23:59:59 [facility] Outpatient PRISCILA PITT MD [id number] 05/22/2013 09:02:00 05/22/2013 23:59:59 [facility] Outpatient PRISCILA PITT MD [id number] 04/19/2013 08:11:00 04/19/2013 23:59:59 [facility] Outpatient PRISCILA PITT MD [id number] 06/22/2012 10:04:00 06/22/2012 23:59:59 [facility] Outpatient PRISCILA PITT MD [id number] 05/22/2012 11:47:00 05/22/2012 23:59:59 [place] [id number] 01/26/2012 15:36:00 01/26/2012 23:59:59 CLS Outpatient BIJAN MAN DO [id number] 01/26/2012 15:36:00 01/26/2012 23:59:59 CLS Outpatient BIJAN MAN DO [id number] 05/19/2016 18:05:00 Document Registration [id number] 11/24/2017 09:00:00 11/24/2017 23:59:59 CLS Outpatient PRISCILA PITT MD [facility] [id number] 02/28/2018 11:40:00 Document Registration [id number] 01/02/2018 09:00:00 Document Registration [id number] 11/24/2017 09:00:00 Document Registration [id number] 10/06/2017 09:00:00 Document Registration [id number] 05/02/2017 08:40:00 Document Registration [id number] 02/08/2017 08:20:00 Document Registration [id number] 06/22/2016 08:38:00 Document Registration [id number] 12/27/2016 00:00:00 02/03/2017 11:05:00 DIS Outpatient Priscila Pitt [id number] 05/25/2016 10:06:00 Document Registration [id number] 05/18/2016 13:05:00 Document Registration [id number] 02/09/2017 09:11:00 Document Registration [id number] 03/08/2018 05:36:00 03/08/2018 10:36:00 DIS Outpatient MAYKEL MURRELL DO [facility] PREOP COLO/EGD [id number] 03/01/2018 12:43:00 03/01/2018 23:59:59 CLS Out[facility] HEM[facility]RHAGIC ANEMIA [id number] 02/27/2018 14:48:00 02/27/2018 16:58:00 DIS Outpatient SHY SCOTT DO [facility] ER NOSE BLEED [id number] 12/07/2016 11:11:00 12/23/2016 12:02:00 DIS Inpatient MAYKEL HUERTAS MD [facility] IRF RIGHT INTERTROCHANTERIC HIP FRACTURE [id number] 12/03/2016 19:47:00 12/07/2016 11:10:00 DIS Inpatient JUAN RAY DO [facility] 4TH RT HIP FX [id number] 05/15/2016 07:30:00 05/15/2016 09:54:00 DIS Emergency ELIAS FORTE MD [facility] ER NOSE BLEED [id number] 05/09/2016 09:17:00 05/09/2016 12:00:00 DIS Emergency KAREN ROD, JERALD S [facility] ER BLOODY NOSE [id number] 05/05/2016 13:20:00 05/05/2016 16:04:00 DIS Emergency JOYCE MARRUFO [facility] ER NOSE BLEED [id number] 01/22/2016 08:30:00 01/27/2016 11:28:00 DIS Outpatient SWEETIE ROD, PRISCILA Pena [facility] REHAB LUMBAR ARTHRITIS [id number] 03/31/2015 09:32:00 03/31/2015 23:59:59 CLS Outpatient SHIN HUDSON MD [facility] CARD PERIPHERAL CASCULAR DI [id number] 01/06/2015 11:29:00 01/06/2015 23:59:59 CLS Outpatient SHIN HUDSON MD [facility] CARD PERIPHERAL VASCULAR DISEASE [id number] 11/13/2014 07:46:00 11/13/2014 23:59:59 CLS Outpatient KATHY ROD, LA Stevens [facility] RAD STENOSIS,CLAUDICATION, [id number] 12/05/2013 03:19:00 12/05/2013 05:15:00 DIS Emergency EMERITA ROD, MOY Maier [facility] ER HEAD LAC [id number] 03/10/2018 07:00:00 PEN Preadmit MAYKEL MURRELL DO [facility] ENDO ANEMIA [id number] 10/21/2011 10:09:00 Document Registration [id number] 10/14/2011 12:09:00 Document Registration [id number] 07/27/2011 11:37:00 Document Registration [id number] 05/06/2011 13:05:00 Document Registration [id number] 05/12/2016 08:35:00 Document Registration
[2018-03-10 07:03] VITALS: BP 136/92
[2018-03-10] MEDS ORDERED: PROPOFOL INJECTION 50 ML IV ONE (07:13)
--- NOTE | 2018-03-10 07:13 | Progress Note-Pre Operative ---
Pre-Operative Progress Note H&P Reviewed The H&P was reviewed, patient examined and no changes noted. Time Seen by Provider: 07:08 Date H&P Reviewed: Mar 10, 2018 Time H&P Reviewed: 07:10 Pre-Operative Diagnosis: Anemia MAYKEL MURRELL DO Mar 10, 2018 07:13
[2018-03-10] MEDS ORDERED: RT-ALBUTEROL SULF 2.5 MG/3 ML PRE-MIX VIAL INH ONE (07:15)
[2018-03-10] MEDS ORDERED: RT-ALBUTEROL SULF 2.5 MG/3 ML PRE-MIX VIAL ONE (07:16)
--- NOTE | 2018-03-10 08:38 | Progress Note-Post Operative ---
Post-Operative Progess Note Surgeon (s)/Refrigerator Glazier (s) Surgeon MAYKEL MURRELL DO Refrigerator Glazier: none Pre-Operative Diagnosis Anemia Post-Operative Diagnosis Gastritis Colon polyp Int hemorrhoids Procedure & Operative Findings Date of Procedure 03/10/18 Procedure Performed/Findings EGD with bx Colon with snare Anesthesia Type IV sedation by LEADERSHIP COACH Estimated Blood Loss Estimated blood loss (mL): scant Specimens/Packing Specimens Removed Antral bx Sigmoid colon polyp MAYKEL MURRELL DO Mar 10, 2018 08:38
[2018-03-10 08:40] VITALS: BP 136/71
--- NOTE | 2018-03-10 08:40 | Endoscopy Discharge Instruct ---
Endo Procedure/Findings Findings 1.: Gastritis 2.: Polyp 3.: Internal Hemorrhoids Discharge Instructions - Activity: You might feel a little sleepy until tomorrow. This is due to the medicine you received to relax you. Until tomorrow, you should: NOT drive a car, operate machinery or power tools. NOT drink any alcoholic beverages. NOT make any important decisions or sign importortant papers. Do not return to work until tomorrow, unless otherwise instructed. Resume previous activities tomorrow. Diet: Start by taking liquids. If you tolerate liquids, advance to solid food. Make an appointment for one week. Notify Physician - If you experience excessive bleeding, unusual abdominal pain, fever, or chest pain, contact your doctor immediately. Follow-Up: - I have received and understand the above instructions and will call my doctor if I have any further questions. Patient Signature Date Nurse Signature Other (Relationship) MAYKEL MURRELL DO Mar 10, 2018 08:40
[2018-03-10 09:15] VITALS: BP 135/95
[2018-03-10 09:27] VITALS: BP 135/95
--- NOTE | 2018-03-10 10:41 | OPERATIVE REPORT ---
DATE OF SERVICE: 03/10/2018 PREOPERATIVE DIAGNOSES: Anemia, melena and nose bleed. POSTOPERATIVE DIAGNOSES: 1. Gastritis. 2. Colon polyp. 3. Internal hemorrhoids. PROCEDURES: 1. EGD with biopsy. 2. Colonoscopy with snare polypectomy. SURGEON: Mayo Calabrese DO. THERAPEUTIC CASE MANAGER: None. ANESTHESIA: IV sedation by NEW ACCOUNTS BANKING REPRESENTATIVE. BLOOD LOSS: Scant. FLUIDS: Per anesthesia. SPECIMEN: One biopsy from the antrum and then 2 polyps from the sigmoid colon. FLUIDS: Per anesthesia. POSTOPERATIVE CONDITION: Stable. INDICATION FOR PROCEDURE: The patient is a 67-year-old male, who had some nosebleed, some melena and he was anemic and needed a workup. He has never had a colonoscopy. FINDINGS: The patient had some very mild gastritis and questionable small hiatal hernia. He had a couple of polyps in the sigmoid colon and he had some internal hemorrhoids, but no other obvious pathology seen. PROCEDURE NOTE: After informed consent was obtained, the patient was brought to the endoscopy suite and placed on the bed in the left lateral decubitus position. He was administered IV sedation by the NEW ACCOUNTS BANKING REPRESENTATIVE, who then monitored his vitals the entire time, heart rate, blood pressure and pulse ox and the scope was inserted down the mouth and through the esophagus into the stomach, pushed into the duodenum, looked good, took a picture and then slowly withdrew the scope into the antrum, took a biopsy of the antrum, there was a little bit of gastritis. Retroflexed the scope, so might be a small hiatal hernia, but no obvious pathology. I then pulled the scope up to the GE junction, took a picture, looked good, up the rest of the esophagus, which also looked normal in and out the mouth. Switched gloves and switched scopes and went to the other side and started the colonoscopy. Pushed the scope in all the way to about 160 cm, able to get to the cecum, took a picture of appendiceal orifice, noted the ileocecal valve and then slowly withdrew the scope insufflating to look circumferentially at the marie looking at the cecum, up the ascending colon to the hepatic flexure, then down the transverse colon, the splenic flexure and then into the descending colon, saw what looked like possibly an AVM or large vein, but it did not look like that it had bled before, continued down into the sigmoid, saw 2 or 3 small polyps. I elected to do snare polypectomy and then suctioned these up to be sent to pathology. I then continued into the rectum, retroflexed the rectal vault, saw some minimal internal hemorrhoids, took a picture of this and then removed the scope. The patient tolerated procedure and recovered in the endoscopy suite. Job ID: [id number] DocumentID: [id number] Dictated Date: 03/10/2018 08:32:11 Restaurant Hospitality Manager Date: 03/10/2018 10:40:23 Dictated By: MAYO CALABRESE DO
--- NOTE | 2018-03-10 13:07 | Anesthesia-General Post-Op ---
MAC Patient Condition Mental Status/LOC: Same as Preop Cardiovascular: Satisfactory Nausea/Vomiting: Absent Respiratory: Satisfactory Pain: Controlled Complications: Absent Post Op Complications Complications None Follow Up Care/Instructions Patient Instructions None needed. Anesthesiology Discharge Order Discharge Order Patient was seen after the procedure and he was doing well, no complaints, stable vital signs, no apparent adverse anesthesia problems. LEOBARDO GUILLORY DO Mar 10, 2018 13:07
== END 2018-03-10 09:28 | disposition home or self-care (01) ==
LOC: ENDO 06:27
PROVIDERS: ATTEND Surgery
DX: K63.5 Polyp of colon (principal); K29.70 Gastritis, unspecified, without bleeding; K21.9 Gastro-esophageal reflux disease without esophagitis; K64.8 Other hemorrhoids; D64.9 Anemia, unspecified; I10 Essential (primary) hypertension; I25.10 Atherosclerotic heart disease of native coronary artery without angina pectoris; J44.9 Chronic obstructive pulmonary disease, unspecified; F17.210 Nicotine dependence, cigarettes, uncomplicated; Z79.899 Other long term (current) drug therapy; Z95.1 Presence of aortocoronary bypass graft; Z95.5 Presence of coronary angioplasty implant and graft
CPT/HCPCS: 94640

== ENCOUNTER 2018-07-14 11:34 | Emergency (ER) | payer MEDICARE ==
[~2018-07-14] VITALS: Ht 175.3 cm; Wt 56.2 kg
[~2018-07-14 11:34] MED LIST changes: -AMLO5TAB7 PO; +AMLO5TAB9 PO
[2018-07-14 12:01] LABS: BASOPHILS % (AUTO) 0 % (0-10); EOSINOPHILS % (AUTO) 0 % (0-10); HEMATOCRIT 35 % (40-54); HEMOGLOBIN 11.9 G/DL (13.3-17.7); LYMPHOCYTES # (AUTO) 1.3 X 10^3 (1.0-4.0); LYMPHOCYTES % (AUTO) 13 % (12-44); MEAN CORPUSCULAR HEMOGLOBIN 28 PG (25-34); MEAN CORPUSCULAR HGB CONC 34 G/DL (32-36); MEAN CORPUSCULAR VOLUME 81 FL (80-99); MEAN PLATELET VOLUME 9.3 FL (7.4-10.4); MONOCYTES # (AUTO) 0.9 X 10^3 (0.0-1.0); MONOCYTES % (AUTO) 9 % (0-12); NEUTROPHILS # (AUTO) 7.9 X 10^3 (1.8-7.8); NEUTROPHILS % (AUTO) 78 % (42-75); PLATELET COUNT 310 10^3/uL (130-400); RED CELL DISTRIBUTION WIDTH 18.2 % (10.0-14.5); WHITE BLOOD COUNT 10.1 10^3/uL (4.3-11.0)
[2018-07-14 12:15] LABS: ALANINE AMINOTRANSFERASE 25 U/L (0-55); ALBUMIN 4.4 GM/DL (3.2-4.5); ALKALINE PHOSPHATASE 111 U/L (40-136); BILIRUBIN,TOTAL 0.3 MG/DL (0.1-1.0); BUN/CREATININE RATIO 11; CALCIUM 9.9 MG/DL (8.5-10.1); CARBON DIOXIDE 21 MMOL/L (21-32); CHLORIDE 95 MMOL/L (98-107); CREATININE SERUM 0.65 MG/DL (0.60-1.30); GFR ESTIMATED > 60; GLUCOSE 89 MG/DL (70-105); POTASSIUM 4.6 MMOL/L (3.6-5.0); SODIUM 129 MMOL/L (135-145); TOTAL PROTEIN 7.9 GM/DL (6.4-8.2)
--- NOTE | 2018-07-14 13:13 | Diagnostic Imaging Report ---
INDICATION: Shortness of breath. COMPARISON: Comparison made with prior examination from 02/27/2018. FINDINGS: The heart size is normal. There is, however, ectasia of the thoracic aorta. There has been a previous median sternotomy and coronary artery bypass graft. There is elevation of the left hemidiaphragm. There is patchy bibasilar subsegmental atelectasis and/or pneumonitis. There is no pneumothorax. Mediastinum is unremarkable. IMPRESSION: 1. 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 2. Marked elevation of the left hemidiaphragm with some bibasilar atelectasis and/or pneumonitis, left greater than right. Dictated by: Dictated on workstation # [id number]
--- NOTE | 2018-07-14 13:30 | ED Respiratory ---
General Chief Complaint: Respiratory Problems Stated Complaint: SOA Nursing Triage Note: PATIENT HERE BY EMS FOR SOB SINCE TUESDAY. HE ALSO HAS A COUGH. PATIENT IS NOT IN ANY DISTRESS ON ARRIVAL. Source: patient, EMS Exam Limitations: no limitations History of Present Illness Date Seen by Provider: Jul 14, 2018 Time Seen by Provider: 13:25 Initial Comments 68-year-old white male presents with a history of cough and shortness of breath and has been progressive for the last 5 days. Patient has had a history of chronic respiratory disease (questionable COPD). The patient was referred to the emergency department after being seen this morning at the clinic. The patient is a poor historian and is unaware if he has used steroids in the past. Allergies and Home Medications Allergies Coded Allergies: No Known Drug Allergies (Unverified , 03/08/18) Home Medications Albuterol Sulfate 1 Puff Puff, 2 PUFF IH Q4H USE WITH SPACER AT ALL TIMES Prescribed by: SHY SCOTT on 02/27/18 1639 Amlodipine Besylate 5 Mg Tablet, 5 MG PO DAILY Prescribed by: MAYKEL HUERTAS on 12/22/161520 Aspirin 81 Mg Tab.chew, 81 MG PO DAILY, (Reported) Cilostazol 100 Mg Tablet, 100 MG PO BID, (Reported) Clopidogrel Bisulfate 75 Mg Tablet, 75 MG PO DAILY, (Reported) Cyclobenzaprine HCl 10 Mg Tablet, 10 MG PO TID Prescribed by: MAYKEL HUERTAS on 12/22/161520 Fluticasone Propionate 16 Gm Issue.susp, 2 SPRAY NS DAILY, (Reported) Furosemide 40 Mg Tablet, 40 MG PO DAILY PRN for SWELLING, (Reported) Hydrocodone/Acetaminophen 1 Each Tablet, 1 TAB PO Q4H PRN for PAIN-MODERATE Prescribed by: MAYKEL HUERTAS on 12/22/161520 Lansoprazole 30 Mg Capsule.dr, 30 MG PO BID, (Reported) Lisinopril 10 Mg Tablet, 10 MG PO DAILY, (Reported) Metoclopramide HCl 10 Mg Tablet, 10 MG PO BID Prescribed by: MAYKEL HUERTAS on 12/22/161520 Potassium Chloride 10 Meq Tablet.er, 10 MEQ PO DAILY, (Reported) Pravastatin Sodium 40 Mg Tablet, 40 MG PO DAILY, (Reported) Terbinafine HCl 250 Mg Tablet, 250 MG PO DAILY, (Reported) Tramadol HCl 50 Mg Tablet, 50 MG PO Q6HR PRN for PAIN-MODERATE Prescribed by: MAYKEL HUERTAS on 12/22/16 1521 Patient Home Medication List Home Medication List Reviewed: Yes Review of Systems Review of Systems Constitutional: No chills EENTM: No ear pain Respiratory: cough; No short of breath Cardiovascular: No chest pain Gastrointestinal: No abdominal pain, No vomiting Genitourinary: no symptoms reported Musculoskeletal: no symptoms reported Skin: No rash Psychiatric/Neurological: No Symptoms Reported Hematologic/Lymphatic: No Symptoms Reported Immunological/Allergic: no symptoms reported Past Mcqegqm-Aaprru-Xpdntn Hx Past Med/Social Hx: Reviewed Nursing Past Med/Soc Hx Patient Social History Alcohol Beverage of Choice: Beer Type Used: Cigarettes 2nd Hand Smoke Exposure: Yes Recent Foreign Travel: No Contact w/Someone Who Travel: No Recent Infectious Disease Expo: No Recent Hopitalizations: No Immunizations Up To Date Tetanus Booster (TDap): Unknown Date of Influenza Vaccine: Feb 13, 2018 Seasonal Allergies Seasonal Allergies: Yes Past Medical History Surgeries: Yes Cardiac, CABG, Orthopedic Respiratory: Yes (NO INHALERS OR O2; ELEVATED LEFT HEMIDIAPHRAGM POST OP) COPD Currently Using CPAP: No Currently Using BIPAP: No Cardiac: Yes (S/P CABG) Coronary Artery Disease, High Cholesterol, Hypertension Neurological: No Reproductive Disorders: No Sexually Transmitted Disease: No HIV/AIDS: No Genitourinary: No Gastrointestinal: Yes (ELEVATED LEFT HEMIDIAPHRAGM POST LEFT CHEST SURGERY FOR UNKNOWN REASON. ) Gastroesophageal Reflux, Chronic Constipation Musculoskeletal: Yes (RIGHT HIP FX/ORIF) Degenerate Disk Disease, Arthritis, Chronic Back Pain, Fractures Endocrine: No HEENT: Yes (NOSEBLEEDS) Loss of Vision: Bilateral Hearing Impairment: Hard of Hearing Cancer: No Psychosocial: No Integumentary: No Blood Disorders: Yes (POST OP ANEMIA AFTER HIP FX REPAIR--S/P TRANSFUSION) Adverse Reaction/Blood Tranf: No Family Medical History Cardiovascular disease 19 FATHER 19 MOTHER G8 BROTHER G8 SISTER FH: breast cancer 19 MOTHER Hypertension 19 FATHER 19 MOTHER Physical Exam Vital Signs - First Documented 07/14/18 11:35 Temp 96.9 Pulse 104 Resp 18 B/P (MAP) 136/84 (101) Pulse Ox 95 O2 Delivery Room Air Capillary Refill : Less Than 3 Seconds Height: 5'9.00" Weight: 124lbs. 0oz. 56.961968ab; 18.6 BMI Method:Stated General Appearance: WD/WN, no apparent distress Eyes: Bilateral Eye Normal Inspection HEENT: normal ENT inspection Neck: normal inspection Respiratory: normal breath sounds Cardiovascular: regular rate, rhythm Gastrointestinal: non tender, soft Extremities: normal range of motion, non-tender Neurologic/Psychiatric: no motor/sensory deficits, alert Skin: normal color, warm/dry Focused Exam Lactate Level 07/14/18 13:21: Lactic Acid Level 0.92 Lactic Acid Level Laboratory Tests Test 07/14/18 13:21 Lactic Acid Level 0.92 MMOL/L (0.50-2.00) Progress/Results/Core Measures Suspected Sepsis Recent Fever Within 48 Hours: No Infection Criteria Present: Suspected New Infection New/Unexplained Altered Menta: No Sepsis Screen: No Definite Risk SIRS Temperature:96.9 Pulse: 104 Respiratory Rate: 18 Laboratory Tests 07/14/18 11:40: White Blood Count 10.1 Blood Pressure 136 /84 Mean: 101 07/14/18 13:21: Lactic Acid Level 0.92 Laboratory Tests 07/14/18 11:40: Creatinine 0.65, Platelet Count 310, Total Bilirubin 0.3 Results/Orders Lab Results Laboratory Tests Test 07/14/18 11:40 07/14/18 13:21 Range/Units White Blood Count 10.1 4.3-11.0 10^3/uL Red Blood Count 4.32 L 4.35-5.85 10^6/uL Hemoglobin 11.9 L 13.3-17.7 G/DL Hematocrit 35 L 40-54 % Mean Corpuscular Volume 81 80-99 FL Mean Corpuscular Hemoglobin 28 25-34 PG Mean Corpuscular Hemoglobin Concent 34 32-36 G/DL Red Cell Distribution Width 18.2 H 10.0-14.5 % Platelet Count 310 130-400 10^3/uL Mean Platelet Volume 9.3 7.4-10.4 FL Neutrophils (%) (Auto) 78 H 42-75 % Lymphocytes (%) (Auto) 13 12-44 % Monocytes (%) (Auto) 9 0-12 % Eosinophils (%) (Auto) 0 0-10 % Basophils (%) (Auto) 0 0-10 % Neutrophils # (Auto) 7.9 H 1.8-7.8 X 10^3 Lymphocytes # (Auto) 1.3 1.0-4.0 X 10^3 Monocytes # (Auto) 0.9 0.0-1.0 X 10^3 Eosinophils # (Auto) 0.0 0.0-0.3 10^3/uL Basophils # (Auto) 0.0 0.0-0.1 10^3/uL D-Dimer 1.00 H 0.00-0.49 UG/ML Sodium Level 129 L 135-145 MMOL/L Potassium Level 4.6 3.6-5.0 MMOL/L Chloride Level 95 L 98-107 MMOL/L Carbon Dioxide Level 21 21-32 MMOL/L Anion Gap 13 5-14 MMOL/L Blood Urea Nitrogen 7 7-18 MG/DL Creatinine 0.65 0.60-1.30 MG/DL Estimat Glomerular Filtration Rate > 60 BUN/Creatinine Ratio 11 Glucose Level 89 70-105 MG/DL Calcium Level 9.9 8.5-10.1 MG/DL Corrected Calcium 9.6 8.5-10.1 MG/DL Total Bilirubin 0.3 0.1-1.0 MG/DL Aspartate Amino Transf (AST/SGOT) 45 H 5-34 U/L Alanine Aminotransferase (ALT/SGPT) 25 0-55 U/L Alkaline Phosphatase 111 40-136 U/L Troponin I 0.152 H <0.028 NG/ML B-Type Natriuretic Peptide 31.7 <100.0 PG/ML Total Protein 7.9 6.4-8.2 GM/DL Albumin 4.4 3.2-4.5 GM/DL Lactic Acid Level 0.92 0.50-2.00 MMOL/L Micro Results Microbiology 07/14/18 Influenza Types A,B Antigen (CRISTIANA) - Final, Complete My Orders Orders - JERALD JONES MD Cbc With Automated Diff (07/14/18 11:47) Comprehensive Metabolic Panel (07/14/18 11:47) Chest 1 View, Ap/Pa Only (07/14/18 11:47) Blood Culture (07/14/18 11:47) Fibrin Degradation Products (07/14/18 11:47) Ekg Tracing (07/14/18 11:47) Troponin I (07/14/18 11:47) BNP (07/14/18 11:47) Lactic Acid Analyzer (07/14/18 11:47) Influenza A And B Antigens (07/14/18 11:51) Hydrocodone/Apap 5/325 Tablet (Lortab 5 (07/14/18 14:00) Medications Given in ED Current Medications Medications Dose Ordered Sig/Jorge Route Start Time Stop Time Status Last Admin Dose Admin Acetaminophen/ Hydrocodone Bitart 1 tab ONCE ONCE PO 07/14/18 14:00 07/14/18 14:01 DC 07/14/18 13:58 1 TAB Vital Signs/I&O 07/14/18 11:35 Temp 96.9 Pulse 104 Resp 18 B/P (MAP) 136/84 (101) Pulse Ox 95 O2 Delivery Room Air Capillary Refill : Less Than 3 Seconds Blood Pressure Mean: 101 Progress Note : Time: 15:06 Progress Note Patient's laboratory and radiographic evaluation were unremarkable. The patient was sleeping quietly in the emergency department without complaint at time of discharge. I believe the patient's had an exacerbation of his COPD. 125 mg Solu-Medrol IV were ordered. Patient was placed on a course of prednisone and azithromycin. He was asked follow-up with [facility] on Tuesday. He was asked to return if any problems or questions. Departure Impression Primary Impression: COPD exacerbation Disposition: HOME, SELF-CARE Condition: Improved Departure-Patient Inst. Decision time for Depature: 15:07 Referrals: PRISCILA PITT MD (PCP/Family) Primary Care Physician Patient Instructions: Exacerbation of COPD Add. Discharge Instructions: Prednisone and Zithromax. Follow-up with your doctor [facility] on Tuesday. Return if any problems or questions. All discharge instructions reviewed with patient and/or family. Voiced understanding. JERALD JONES MD Jul 14, 2018 13:30
[2018-07-14] MEDS ORDERED: HYDROcodone/APAP 5 MG/325 MG (LORTAB) TAB PO ONE (14:00)
[2018-07-14 18:02] VITALS: BP 136/84
== END 2018-07-14 15:31 | disposition home or self-care (01) ==
LOC: EDUNIT# 11:34 → ER 11:37
DX: J44.1 Chronic obstructive pulmonary disease with (acute) exacerbation (principal); I25.10 Atherosclerotic heart disease of native coronary artery without angina pectoris; E78.00 Pure hypercholesterolemia, unspecified; I10 Essential (primary) hypertension; K21.9 Gastro-esophageal reflux disease without esophagitis; Z80.3 Family history of malignant neoplasm of breast; Z82.49 Family history of ischemic heart disease and other diseases of the circulatory system; Z87.19 Personal history of other diseases of the digestive system; Z79.51 Long term (current) use of inhaled steroids; Z79.82 Long term (current) use of aspirin; Z79.02 Long term (current) use of antithrombotics/antiplatelets; Z77.22 Contact with and (suspected) exposure to environmental tobacco smoke (acute) (chronic); Z95.1 Presence of aortocoronary bypass graft; Z98.890 Other specified postprocedural states
CPT/HCPCS: 36415; 71045; 80053; 83605; 83880; 84484; 85025; 85379; 87040; 87804; 93005

== ENCOUNTER 2019-05-30 13:55 | Outpatient (CLI) | payer MEDICARE ==
[~2019-05-30] VITALS: Ht 177.8 cm; Wt 57.3 kg
[~2019-05-30 13:55] MED LIST changes: +TRM50T PO
[2019-05-31] MEDS ORDERED: AMLO5TAB9 PO (08:00)
[2019-05-31] MEDS ORDERED: ALB0.5V INH (08:00)
[2019-05-31] MEDS ORDERED: TRM50T PO (08:00)
[2019-05-31] MEDS ORDERED: CYCL10TA9 PO (08:00)
[2019-05-31] MEDS ORDERED: PRD20T PO (08:00)
[2019-05-31] MEDS ORDERED: METO10TA3 PO (08:00)
[2019-05-31] MEDS ORDERED: POTA10TA36 PO (08:00)
[2019-05-31] MEDS ORDERED: HYDR-3820 PO (08:00)
[2019-05-31] MEDS ORDERED: DOXY100C2 PO (08:00)
== END 2019-05-30 14:35 | disposition home or self-care (01) ==
LOC: PREOP 13:55
PROVIDERS: ATTEND Orthopaedic Surgery
DX: Z01.818 Encounter for other preprocedural examination (principal)
CPT/HCPCS: 87081

== ENCOUNTER 2019-06-01 10:12 | Day surgery (SDC) | payer MEDICARE ==
--- NOTE | 2019-05-29 09:05 | HISTORY AND PHYSICAL ---
DATE OF SERVICE: ADMISSION HISTORY AND PHYSICAL DATE OF SURGERY: 06/01/2019. This will be for outpatient surgery on 06/01/2019 for open reduction and internal fixation, left distal radius. 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 He sustained this approximately three months ago. He weight bears on his left upper extremity, this is a closed extraarticular fracture; however, it displaced due to weightbearing. The patient has a deformity of the left wrist and would like to proceed with surgical intervention. REVIEW OF SYSTEMS: No chest pain, no shortness of breath and no dysuria. PAST MEDICAL HISTORY: Coronary artery disease, right carotid stenosis, degenerative joint disease, peripheral vascular disease, hypertension and degenerative disk disease. PAST SURGICAL HISTORY: Coronary artery bypass, peripheral angiogram, diaphragm repair, hip fracture and carpal tunnel. SOCIAL HISTORY: The patient smokes 10 to 15 cigarettes a day. Denies alcohol use. FAMILY HISTORY: Significant for hypertension and coronary artery disease. PRIMARY CARE PROVIDER: [facility]. MEDICATIONS: Hydrocodone, tramadol, Flonase, lisinopril, Plavix, cyclobenzaprine, aspirin, pravastatin, metoclopramide, Norvasc, potassium, terbinafine, lansoprazole and Proventil. ALLERGIES: No known drug allergies. PHYSICAL EXAMINATION: GENERAL: The patient is well developed, well nourished, in no acute distress. HEENT: Normocephalic and atraumatic. Pupils are equal, round, reactive to light. Oropharynx is clear. NECK: Supple and no lymphadenopathy. LUNGS: Clear to auscultation bilaterally. HEART: Regular rate and rhythm. ABDOMEN: Soft, nontender and nondistended. EXTREMITIES: The left wrist demonstrates a deformity with prominence and shortening noted radially. He has intact MCP extension, finger abduction, thumb IP flexion and extension. Sensation is intact in radial, ulnar and median distribution. 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 PLAN: Open reduction and internal fixation left distal radius with possible bone grafting. We discussed risks, benefits, options, ramifications and recovery. He understands and wishes to proceed. Job ID: [id number] DocumentID: [id number] Dictated Date: 05/28/2019 13:37:15 Manager Home Date: 05/28/2019 13:55:53 Dictated By: HELEN MOSER MD
[~2019-06-01] VITALS: Ht 177.8 cm; Wt 57.3 kg
[2019-06-01] VITALS (9 sets, daily range): BP systolic 96–136; BP diastolic 63–88
[~2019-06-01 10:12] MED LIST changes: +ALB0.5V INH; +DOXY100C2 PO; +POTA10TA36 PO; +PRD20T PO
[2019-06-01] MEDS ORDERED: ceFAZolin INJECTION 1,000 MG in WATER (STERILE) FOR INJECTION 10 ML IV ONE (10:30)
[2019-06-01] MEDS ORDERED: CATHETER FLUSH 10 ML SYR IV PRN (10:30)
[2019-06-01] MEDS ORDERED: LACTATED RINGERS 1,000 ML IV PRN (10:33)
[2019-06-01] MEDS ORDERED: PROPOFOL INJECTION 50 ML IV ONE (11:05)
[2019-06-01] MEDS ORDERED: MIDAZOLAM 2 MG/2 ML (VERSED) VIAL ONE (11:05)
[2019-06-01] MEDS ORDERED: fentaNYL INJECTION 100 MCG/2 ML AMP ONE (11:06)
[2019-06-01] MEDS ORDERED: LIDOCAINE PF 2% 5 ML (XYLOCAINE) VIAL ONE (11:08)
[2019-06-01] MEDS ORDERED: ONDANSETRON 4 MG/2 ML (SDV) Z0FRAN ONE (11:08)
[2019-06-01] MEDS ORDERED: DEXAMETHASONE 10 MG/ML (DECADRON) 1 ML VIAL ONE (11:08)
[2019-06-01] MEDS ORDERED: proPOfol 200 MG/20 ML (DIPRIVAN) VIAL IV ONE (11:08)
[2019-06-01] MEDS ORDERED: KETAMINE/NaCl 50 MG/5 ML SYRINGE (ED ONLY) ONE (11:10)
--- NOTE | 2019-06-01 11:18 | Progress Note-Pre Operative ---
Pre-Operative Progress Note H&P Reviewed The H&P was reviewed, patient examined and no changes noted. Date Seen by Provider: Jun 01, 2019 Time Seen by Provider: 11:07 Date H&P Reviewed: Jun 01, 2019 Time H&P Reviewed: 11:05 Pre-Operative Diagnosis: left distal radius malunion HELEN MOSER MD Jun 01, 2019 11:18
--- NOTE | 2019-06-01 11:19 | Progress Note-Post Operative ---
Post-Operative Progess Note Surgeon (s)/Children'S Lunchroom Supervisor (s) Surgeon HELEN MOSER MD Children'S Lunchroom Supervisor: Parker Bateman Pre-Operative Diagnosis left distal radius malunion Post-Operative Diagnosis left dital radius nonunion Procedure & Operative Findings Date of Procedure 06/01/19 Procedure Performed/Findings Open reduction and internal fixation of the left distal radius with allograft Anesthesia Type GETA Estimated Blood Loss Estimated blood loss (mL): minimal Specimens/Packing Specimens Removed none Packing: none HELEN MOSER MD Jun 01, 2019 11:19
[2019-06-01] MEDS ORDERED: oxyCODONE/APAP 5/325MG (PERCOCET 5) TABLET PO PRN (11:30)
[2019-06-01] MEDS ORDERED: hydrALAZINE (APESOLINE) 20 MG/ML VIAL ONE (12:37)
[2019-06-01] MEDS ORDERED: BUPIVACAINE 0.5% 30 ML (SENSORCAINE) VIAL ONE (12:53)
--- NOTE | 2019-06-01 13:11 | Anesthesia-General Post-Op ---
General Patient Condition Mental Status/LOC: Same as Preop Cardiovascular: Satisfactory Nausea/Vomiting: Absent Respiratory: Satisfactory Pain: Controlled Complications: Absent Post Op Complications Complications None Follow Up Care/Instructions Patient Instructions None needed. Anesthesia/Patient Condition Patient Condition Patient is doing well, no complaints, stable vital signs, no apparent adverse anesthesia problems. No complications reported per nursing. JOSE F ORNELAS CRNA Jun 01, 2019 13:11
[2019-06-01] MEDS ORDERED: PROMETHAZINE INJ 25 MG/ML (PHENERGAN) AMP IVP ONE (13:15)
[2019-06-01] MEDS ORDERED: ONDANSETRON 4 MG/2 ML (SDV) Z0FRAN IVP PRN (13:15)
[2019-06-01] MEDS ORDERED: morphine INJ 10 MG/ML 1ML (SYR OR VIAL) IVP ONE (13:15)
[2019-06-01] MEDS ORDERED: OXYC-471 PO (14:35)
--- NOTE | 2019-06-01 15:18 | OPERATIVE REPORT ---
DATE OF SERVICE: 06/01/2019 PREOPERATIVE DIAGNOSIS: Left distal radius nonunion. POSTOPERATIVE DIAGNOSIS: Left distal radius nonunion. PROCEDURE: Open reduction and internal fixation of the left distal radius with allograft. SURGEON: Yg Moser MD. SECURITY INTELLIGENCE ANALYST: Parker Bateman, who assisted throughout the procedure and closed the incision. ANESTHESIA: General endotracheal by Cristela Rao CRNA. TOURNIQUET TIME: 70 minutes at 250 mmHg. ESTIMATED BLOOD LOSS: Minimal. DRAINS: None. COMPLICATIONS: None. POSTOPERATIVE PLAN: Protected activities for six weeks. The patient was transferred to the recovery room awake and stable condition. MATERIALS: Synthes distal radius plate with DBX bone graft. STATEMENT OF MEDICAL NECESSITY: The patient is a 69-year-old gentleman, who fell sustaining a left distal radius fracture approximately four months ago. This had displaced and had failed to go on to union. The patient had deformity of his left wrist with continued pain. Because of this, it was recommended the patient undergo operative fixation. The patient does bear weight on his left upper extremity and was counseled that this may not heal or could displace even with operative fixation. DESCRIPTION OF PROCEDURE: After risks and benefits of the procedure were discussed and questions were answered, informed consent was signed and placed on chart and the operative site was confirmed in the preoperative holding area initialed by the surgeon, the patient was transferred to the operating room and after adequate levels of general endotracheal anesthetic were obtained, a timeout was called, confirming the operative site. Left upper extremity was prepped and draped in the usual sterile fashion. A longitudinal incision was made over the flexor carpi radialis. The fascia was incised on the deep surface and the FCR was retracted ulnarly along with the flexor pollicis longus. A subperiosteal dissection was carried out after elevating the pronator quadratus and the fracture site was exposed. The bone ends were debrided with a rongeur to a bleeding edge. There was shortening and radial displacement of the distal fragment. This was brought to its anatomic position, distally, there was still some slight radial offset, but this was felt to be acceptable. A Synthes distal radius plate was placed with the two cortical screws placed proximally and four locking screws placed distally, all with excellent placement. Fluoroscopy in the AP, lateral and oblique planes revealed stable reduction with a well-placed hardware and no intra-articular penetration was noted radiographically and with wrist range of motion, no crepitus was noted and on the lifetime fluoroscopy, the fracture was stable. The wound was copiously irrigated and DBX allograft was packed into the distal radius fracture site. The tourniquet was deflated and pressure was used for hemostasis as well as cautery. The wound was then closed with 4-0 Vicryl in subcutaneous layer and dorothy on the skin. Soft dressing and sugar tong splint were applied. The patient was transferred to the recovery room awake and in stable condition. Job ID: [id number] DocumentID: [id number] Dictated Date: 06/01/2019 13:07:51 Release Manager Date: 06/01/2019 15:17:48 Dictated By: YG MOSER MD
--- NOTE | 2019-06-01 15:48 | Diagnostic Imaging Report ---
INDICATION: Fluoroscopy for left distal radius surgery. EXAMINATION: Fluoroscopy was provided in the OR for a left distal radius ORIF. FINDINGS: 63 seconds of fluoroscopic time was utilized. IMPRESSION: Fluoroscopy for distal left radius ORIF. Dictated by: Dictated on workstation # [id number]
== END 2019-06-01 15:20 | disposition home or self-care (01) ==
LOC: SDC 10:12
PROVIDERS: ATTEND Orthopaedic Surgery
DX: S52.502A Unspecified fracture of the lower end of left radius, initial encounter for closed fracture (principal); I10 Essential (primary) hypertension; I65.21 Occlusion and stenosis of right carotid artery; I73.9 Peripheral vascular disease, unspecified; I25.10 Atherosclerotic heart disease of native coronary artery without angina pectoris; E78.5 Hyperlipidemia, unspecified; J44.9 Chronic obstructive pulmonary disease, unspecified; K21.9 Gastro-esophageal reflux disease without esophagitis; F17.210 Nicotine dependence, cigarettes, uncomplicated; Z79.899 Other long term (current) drug therapy; Z95.1 Presence of aortocoronary bypass graft; Z79.891 Long term (current) use of opiate analgesic; Z79.82 Long term (current) use of aspirin; Z82.49 Family history of ischemic heart disease and other diseases of the circulatory system

== ENCOUNTER → 2020-05-15 | Outpatient (CLI) | payer MEDICARE ==
[~2020-05-15] MED LIST changes: +ACHYD1T PO; +AMLO-250 PO; -AMLO5TAB9 PO; -HYDR-3820 PO; +OXYC-471 PO
== END ==
LOC: WOUNDCARE 13:15
PROVIDERS: ATTEND Surgery
DX: I70.235 Atherosclerosis of native arteries of right leg with ulceration of other part of foot (principal); I70.245 Atherosclerosis of native arteries of left leg with ulceration of other part of foot; L97.522 Non-pressure chronic ulcer of other part of left foot with fat layer exposed; L97.512 Non-pressure chronic ulcer of other part of right foot with fat layer exposed; L97.412 Non-pressure chronic ulcer of right heel and midfoot with fat layer exposed; L97.322 Non-pressure chronic ulcer of left ankle with fat layer exposed; T65.222A Toxic effect of tobacco cigarettes, intentional self-harm, initial encounter; F17.218 Nicotine dependence, cigarettes, with other nicotine-induced disorders
CPT/HCPCS: 99214

== ENCOUNTER → 2020-05-29 | Outpatient (CLI) | payer MEDICARE | LOC: WOUNDCARE 10:39 | PROVIDERS: ATTEND Orthopaedic Surgery Hand Surgery | DX: I70.261 Atherosclerosis of native arteries of extremities with gangrene, right leg (principal); I70.262 Atherosclerosis of native arteries of extremities with gangrene, left leg; L97.412 Non-pressure chronic ulcer of right heel and midfoot with fat layer exposed; L97.322 Non-pressure chronic ulcer of left ankle with fat layer exposed; L97.522 Non-pressure chronic ulcer of other part of left foot with fat layer exposed; L97.512 Non-pressure chronic ulcer of other part of right foot with fat layer exposed; F17.218 Nicotine dependence, cigarettes, with other nicotine-induced disorders; T65.222A Toxic effect of tobacco cigarettes, intentional self-harm, initial encounter | CPT/HCPCS: 99214 ==

== ENCOUNTER → 2020-06-05 | Outpatient (CLI) | payer MEDICARE | LOC: WOUNDCARE 08:40 | PROVIDERS: ATTEND Surgery | DX: I70.235 Atherosclerosis of native arteries of right leg with ulceration of other part of foot (principal); I70.245 Atherosclerosis of native arteries of left leg with ulceration of other part of foot; L97.522 Non-pressure chronic ulcer of other part of left foot with fat layer exposed; L97.512 Non-pressure chronic ulcer of other part of right foot with fat layer exposed; L97.412 Non-pressure chronic ulcer of right heel and midfoot with fat layer exposed; L97.322 Non-pressure chronic ulcer of left ankle with fat layer exposed; L97.422 Non-pressure chronic ulcer of left heel and midfoot with fat layer exposed | CPT/HCPCS: 99214 ==

== ENCOUNTER → 2020-06-12 | Outpatient (CLI) | payer MEDICARE | LOC: WOUNDCARE 09:40 | PROVIDERS: ATTEND Surgery | DX: I70.235 Atherosclerosis of native arteries of right leg with ulceration of other part of foot (principal); I70.245 Atherosclerosis of native arteries of left leg with ulceration of other part of foot; L97.522 Non-pressure chronic ulcer of other part of left foot with fat layer exposed; L97.512 Non-pressure chronic ulcer of other part of right foot with fat layer exposed; L97.412 Non-pressure chronic ulcer of right heel and midfoot with fat layer exposed; L97.322 Non-pressure chronic ulcer of left ankle with fat layer exposed; L97.422 Non-pressure chronic ulcer of left heel and midfoot with fat layer exposed; I96 Gangrene, not elsewhere classified | CPT/HCPCS: 99215 ==

== ENCOUNTER → 2020-06-19 | Outpatient (CLI) | payer MEDICARE | LOC: WOUNDCARE 09:33 | PROVIDERS: ATTEND Surgery | DX: I70.235 Atherosclerosis of native arteries of right leg with ulceration of other part of foot (principal); I70.245 Atherosclerosis of native arteries of left leg with ulceration of other part of foot; L97.522 Non-pressure chronic ulcer of other part of left foot with fat layer exposed; L97.512 Non-pressure chronic ulcer of other part of right foot with fat layer exposed; L97.412 Non-pressure chronic ulcer of right heel and midfoot with fat layer exposed; L97.322 Non-pressure chronic ulcer of left ankle with fat layer exposed; L97.422 Non-pressure chronic ulcer of left heel and midfoot with fat layer exposed; I96 Gangrene, not elsewhere classified | CPT/HCPCS: 99215 ==

== ENCOUNTER → 2020-06-26 | Outpatient (CLI) | payer MEDICARE ==
[~2020-06-26] MED LIST changes: +LISI10TA25 PO; -METO10TA3 PO; +MTC10T PO; -OXYC-471 PO; +OXYC1TAB11 PO
== END ==
LOC: WOUNDCARE 09:51
PROVIDERS: ATTEND Surgery
DX: I70.263 Atherosclerosis of native arteries of extremities with gangrene, bilateral legs (principal); L97.522 Non-pressure chronic ulcer of other part of left foot with fat layer exposed; L97.512 Non-pressure chronic ulcer of other part of right foot with fat layer exposed; L97.422 Non-pressure chronic ulcer of left heel and midfoot with fat layer exposed; L97.412 Non-pressure chronic ulcer of right heel and midfoot with fat layer exposed; L97.322 Non-pressure chronic ulcer of left ankle with fat layer exposed; L97.211 Non-pressure chronic ulcer of right calf limited to breakdown of skin
CPT/HCPCS: 99215

== ENCOUNTER → 2020-07-03 | Outpatient (CLI) | payer MEDICARE ==
[2020-07-03 10:04] LABS: BASOPHILS # (AUTO) 0.1 10^3/uL (0.0-0.1); BASOPHILS % (AUTO) 1 % (0-10); EOSINOPHILS # (AUTO) 0.1 10^3/uL (0.0-0.3); EOSINOPHILS % (AUTO) 1 % (0-10); HEMATOCRIT 30 % (40-54); HEMOGLOBIN 9.8 g/dL (13.3-17.7); LYMPHOCYTES # (AUTO) 0.9 10^3/uL (1.0-4.0); LYMPHOCYTES % (AUTO) 12 % (12-44); MEAN CORPUSCULAR HEMOGLOBIN 30 pg (25-34); MEAN CORPUSCULAR HGB CONC 33 g/dL (32-36); MEAN CORPUSCULAR VOLUME 91 fL (80-99); MEAN PLATELET VOLUME 8.3 fL (9.0-12.2); MONOCYTES # (AUTO) 0.7 10^3/uL (0.0-1.0); MONOCYTES % (AUTO) 9 % (0-12); NEUTROPHILS # (AUTO) 6.2 10^3/uL (1.8-7.8); NEUTROPHILS % (AUTO) 77 % (42-75); PLATELET COUNT 456 10^3/uL (130-400)
== END ==
LOC: LAB 09:49
PROVIDERS: ATTEND Surgery
DX: L97.522 Non-pressure chronic ulcer of other part of left foot with fat layer exposed (principal)
CPT/HCPCS: 36415; 85025

== ENCOUNTER → 2020-07-03 | Outpatient (CLI) | payer MEDICARE | LOC: WOUNDCARE 10:01 | PROVIDERS: ATTEND Orthopaedic Surgery Hand Surgery | DX: I70.235 Atherosclerosis of native arteries of right leg with ulceration of other part of foot (principal); I96 Gangrene, not elsewhere classified; I70.245 Atherosclerosis of native arteries of left leg with ulceration of other part of foot; L97.522 Non-pressure chronic ulcer of other part of left foot with fat layer exposed; L97.512 Non-pressure chronic ulcer of other part of right foot with fat layer exposed; L97.422 Non-pressure chronic ulcer of left heel and midfoot with fat layer exposed; L97.412 Non-pressure chronic ulcer of right heel and midfoot with fat layer exposed; L97.322 Non-pressure chronic ulcer of left ankle with fat layer exposed; L97.211 Non-pressure chronic ulcer of right calf limited to breakdown of skin; D64.9 Anemia, unspecified | CPT/HCPCS: 99214 ==

== ENCOUNTER → 2020-07-10 | Outpatient (CLI) | payer MEDICARE | LOC: WOUNDCARE 09:58 | PROVIDERS: ATTEND Surgery | DX: I70.235 Atherosclerosis of native arteries of right leg with ulceration of other part of foot (principal); I70.245 Atherosclerosis of native arteries of left leg with ulceration of other part of foot; L97.522 Non-pressure chronic ulcer of other part of left foot with fat layer exposed; L97.512 Non-pressure chronic ulcer of other part of right foot with fat layer exposed; L97.412 Non-pressure chronic ulcer of right heel and midfoot with fat layer exposed; L97.322 Non-pressure chronic ulcer of left ankle with fat layer exposed; L97.422 Non-pressure chronic ulcer of left heel and midfoot with fat layer exposed; L97.211 Non-pressure chronic ulcer of right calf limited to breakdown of skin; D64.9 Anemia, unspecified; I96 Gangrene, not elsewhere classified | CPT/HCPCS: 99214 ==

== ENCOUNTER → 2020-07-10 | Outpatient (CLI) | payer MEDICARE ==
[2020-07-10 11:38] LABS: HEMOGLOBIN 9.3 g/dL (13.3-17.7)
== END ==
LOC: LAB 11:19
PROVIDERS: ATTEND Internal Medicine
DX: D50.0 Iron deficiency anemia secondary to blood loss (chronic) (principal)
CPT/HCPCS: 36415; 85014; 85018

== ENCOUNTER → 2020-07-17 | Outpatient (CLI) | payer MEDICARE | LOC: WOUNDCARE 10:04 | PROVIDERS: ATTEND Orthopaedic Surgery Hand Surgery | DX: I70.235 Atherosclerosis of native arteries of right leg with ulceration of other part of foot (principal); I96 Gangrene, not elsewhere classified; I70.245 Atherosclerosis of native arteries of left leg with ulceration of other part of foot; L97.522 Non-pressure chronic ulcer of other part of left foot with fat layer exposed; L97.512 Non-pressure chronic ulcer of other part of right foot with fat layer exposed; L97.412 Non-pressure chronic ulcer of right heel and midfoot with fat layer exposed; L97.322 Non-pressure chronic ulcer of left ankle with fat layer exposed; L97.422 Non-pressure chronic ulcer of left heel and midfoot with fat layer exposed; L97.211 Non-pressure chronic ulcer of right calf limited to breakdown of skin; D64.9 Anemia, unspecified; I95.9 Hypotension, unspecified; R60.0 Localized edema | CPT/HCPCS: 99215 ==

== ENCOUNTER → 2020-07-24 | Outpatient (CLI) | payer MEDICARE | LOC: WOUNDCARE 09:30 | PROVIDERS: ATTEND Surgery | DX: I70.245 Atherosclerosis of native arteries of left leg with ulceration of other part of foot (principal); I70.235 Atherosclerosis of native arteries of right leg with ulceration of other part of foot; I96 Gangrene, not elsewhere classified; L97.522 Non-pressure chronic ulcer of other part of left foot with fat layer exposed; L97.512 Non-pressure chronic ulcer of other part of right foot with fat layer exposed; L97.412 Non-pressure chronic ulcer of right heel and midfoot with fat layer exposed; L97.422 Non-pressure chronic ulcer of left heel and midfoot with fat layer exposed; D64.9 Anemia, unspecified; I95.9 Hypotension, unspecified; R60.0 Localized edema | CPT/HCPCS: 99215 ==

== ENCOUNTER → 2020-08-04 | Outpatient (CLI) | payer MEDICARE | LOC: WOUNDCARE 14:29 | PROVIDERS: ATTEND Surgery | DX: L03.116 Cellulitis of left lower limb (principal); I70.235 Atherosclerosis of native arteries of right leg with ulceration of other part of foot; I70.245 Atherosclerosis of native arteries of left leg with ulceration of other part of foot; L97.522 Non-pressure chronic ulcer of other part of left foot with fat layer exposed; L97.512 Non-pressure chronic ulcer of other part of right foot with fat layer exposed; L97.412 Non-pressure chronic ulcer of right heel and midfoot with fat layer exposed; L97.322 Non-pressure chronic ulcer of left ankle with fat layer exposed; L97.422 Non-pressure chronic ulcer of left heel and midfoot with fat layer exposed; L97.211 Non-pressure chronic ulcer of right calf limited to breakdown of skin; D64.9 Anemia, unspecified; I95.9 Hypotension, unspecified; I96 Gangrene, not elsewhere classified; R60.0 Localized edema | CPT/HCPCS: 99214 ==

== ENCOUNTER → 2022-04-28 | Outpatient (CLI) | payer MEDICARE ==
[~2022-04-28] MED LIST changes: +ALBU8.5H6 IH; -CILO100T PO; +CYCL10TA25 PO; -CYCL10TA9 PO; -DOXY100C2 PO; +DOXY100C5 PO; +NF-PLET100 PO; +POTA-160 PO; +POTA-177 PO; -POTA10TA36 PO; -POTA10TA6 PO; -RT-ALBUINH IH; -TERB250T16 PO; +TERB250T88 PO
--- NOTE | 2022-04-28 15:23 | Diagnostic Imaging Report ---
PROCEDURE: MRI lumbar spine. TECHNIQUE: Multiplanar, multisequence MRI of the lumbar spine was performed without contrast. INDICATION: Chronic lower back pain. COMPARISON: 11/13/2014. FINDINGS: For the purposes of this exam, the last well-formed disc space is denoted the L5-S1 level. Evaluation of static alignment shows moderate dextroscoliotic deformity epicentered at the L2-L3 level. There is also borderline grade 1/grade 2 anterolisthesis at L5-S1. There is no evidence of jumped facets. Vertebral body heights are maintained. There is no acute fracture. Evaluation of the marrow signal demonstrates multilevel Modic type I endplate changes. There is also multilevel intervertebral disc height loss with anterior and posterior disc/osteophyte complex formations. Visualized portions of the distal cord are unremarkable. The conus terminates at approximately the L2 level. No abnormal intraluminal filling defects are seen. Pre and paravertebral soft tissue structures are unremarkable. Axial images demonstrate the following: T12-L1: There is no large disc bulge or focal protrusion. There is no significant spinal canal or neuroforaminal stenosis. L1-L2: There is broad-based posterior disc bulge, eccentric to the left. There is also bilateral ligamentum flavum laxity and facet arthropathy. As a result, there is mild stenosis of the spinal canal and right neuroforamen. There is also moderate stenosis on the left. L2-L3: There is broad-based posterior disc bulge and bilateral ligamentum flavum laxity and facet arthropathy. As a result, there is moderate stenosis of the spinal canal and left neuroforamen. There is also mild stenosis on the right. L3-L4: There is broad-based posterior disc bulge with bilateral ligamentum flavum laxity and facet arthropathy. As a result, there is severe spinal canal stenosis. The thecal sac is narrowed to approximately 6 mm in the AP dimension. There is also moderate to severe stenosis of the left neuroforamen and mild stenosis on the right. L4-L5: There is broad-based posterior disc bulge with prominent bilateral facet arthropathy and ligamentum flavum laxity. There also appears to be extruded disc material within the right lateral recess extending into the right neuroforamen. As a result, there is likely significant mass effect on the exiting right L4 nerve root. There is also severe stenosis of the spinal canal and left neuroforamen. L5-S1: There is broad-based posterior disc bulge with unroofing of the disc secondary to the previously described anterolisthesis. There is also prominent bilateral facet arthropathy. As a result, there is moderate to severe stenosis of the spinal canal and severe stenosis of the bilateral neural foramen. IMPRESSION: 1. Advanced multilevel degenerative changes of the lumbar spine as described above. 2. No acute fracture or dislocation. Dictated by: Dictated on workstation # [id number]
== END ==
LOC: RAD 09:59
PROVIDERS: ATTEND Internal Medicine
DX: M47.26 Other spondylosis with radiculopathy, lumbar region (principal); M41.86 Other forms of scoliosis, lumbar region; M43.17 Spondylolisthesis, lumbosacral region; M25.78 Osteophyte, vertebrae; M51.26 Other intervertebral disc displacement, lumbar region; M48.061 Spinal stenosis, lumbar region without neurogenic claudication
CPT/HCPCS: 72148

== ENCOUNTER 2022-07-13 05:31 | Outpatient (CLI) | payer MEDICARE ==
[~2022-07-13] VITALS: Ht 170.2 cm; Wt 64.1 kg
[2022-07-14] MEDS ORDERED: FURO-124 PO (11:48)
[2022-07-14] MEDS ORDERED: HYDR-3820 PO (11:48)
== END 2022-07-14 11:48 | disposition home or self-care (01) ==
LOC: PREOP 05:31
PROVIDERS: ATTEND Specialist
DX: Z01.818 Encounter for other preprocedural examination (principal)

== ENCOUNTER 2022-07-16 10:11 | Day surgery (SDC) | payer MEDICARE ==
[~2022-07-16] VITALS: Ht 170.1 cm; Wt 64.1 kg
[~2022-07-16 10:11] MED LIST changes: +FURO-124 PO; +HYDR-3820 PO
[2022-07-16] MEDS ORDERED: POVIDONE (BETADINE) OPHTH SOLN 5% 30 ML OP ONE (10:30)
[2022-07-16] MEDS ORDERED: TIMOLOL 0.5% (CATARACTS) 0.3 ML BTL OU PRN (10:30)
[2022-07-16] MEDS ORDERED: acetaZOLAMIDE ER 500 MG CAP (DIAMOX SEQUELS) PO ONE (10:30)
[2022-07-16] MEDS ORDERED: MOXIFLOXACIN OPHTH SOLN 5 MG/ML 0.3 ML SYRINGE OP ONE (10:30)
[2022-07-16] MEDS: TETRACAINE 0.5% OPHTH SOLN 4 ML BTL (SINGLE DOSE ONLY) OU PRN ×4 (10:36→10:53)
[2022-07-16] MEDS: PHENYLEPHRINE 10% OPHTH (NEO-SYN) 5 ML BTL OU SCH ×3 (10:42→10:53)
[2022-07-16] MEDS: TROPICAMIDE 1% OPH SOLN (MYDRIACYL) 15 ML BTL OP SCH ×3 (10:42→10:54)
[2022-07-16 10:43] VITALS: BP 122/79
[2022-07-16] MEDS ORDERED: MIDAZOLAM 2 MG/2 ML (VERSED) VIAL ONE (11:11)
--- NOTE | 2022-07-16 11:16 | Ophthalmologist Pre-Op Note ---
Pre-Operative Progress Note H&P Reviewed The H&P was reviewed, patient examined and no changes noted. Date H&P Reviewed: Jul 16, 2022 Time H&P Reviewed: 11:16 Pre-Op Dx Cataract, Right Eye MARTHA AHN MD Jul 16, 2022 11:16
--- NOTE | 2022-07-16 11:38 | Ophthalmology Operative Report ---
Cataract removal/placement IOL PREOPERATIVE DIAGNOSIS: Cataract Right Eye POSTOPERATIVE DIAGNOSIS: Cataract Right Eye PROCEDURE: Cataract removal and placement of posterior chamber implant, right eye SURGEON: Ba Ahn ANESTHESIA: Topical with sedation COMPLICATIONS: None ESTIMATED BLOOD LOSS: Minimal DESCRIPTION OF PROCEDURE: After proper informed consent was obtained, the patient, a 72 male, was taken to the Operating Room and the right eye was anesthetized with tetracaine. The right eye was then prepped and draped in the usual manner. A wire lid speculum was placed. A paracentesis was made at the left hand position. Preservative free lidocaine was injected into the anterior chamber followed by viscoelastic. A clear corneal incision was made in the temporal position. A capsulorrhexis was preformed and the central nuclear and cortical material were removed. The posterior capsule was polished and Ander 17.0 AU00T0 IOL was placed into the capsular bag. The residual viscoelastic was aspirated and balanced saline solution was injected into the anterior chamber. Moxifloxacin was injected into the anterior chamber. The wound was checked and found to be water tight. The patient tolerated the procedure well without complications. BA AHN MD Jul 16, 2022 11:38
[2022-07-16 11:42] VITALS: BP 135/83
--- NOTE | 2022-07-16 11:50 | Anesthesia-General Post-Op ---
MAC Patient Condition Mental Status/LOC: Same as Preop Cardiovascular: Satisfactory Nausea/Vomiting: Absent Respiratory: Satisfactory Pain: Controlled Complications: Absent Post Op Complications Complications None Follow Up Care/Instructions Patient Instructions None needed. Anesthesiology Discharge Order Discharge Order Patient is doing well, no complaints, stable vital signs, no apparent adverse anesthesia problems. No complications reported per nursing. DAXA JACKSON CRNA Jul 16, 2022 11:50
== END 2022-07-16 11:45 | disposition home or self-care (01) ==
LOC: SDC 10:11
PROVIDERS: ATTEND Specialist
DX: H25.9 Unspecified age-related cataract (principal); Z87.891 Personal history of nicotine dependence
CPT/HCPCS: 66984; V2632

== ENCOUNTER 2022-07-22 05:38 | Outpatient (CLI) | payer MEDICARE | END 2022-07-26 13:13 | disposition home or self-care (01) | LOC: PREOP 05:38 | PROVIDERS: ATTEND Specialist | DX: Z01.818 Encounter for other preprocedural examination (principal) ==

== ENCOUNTER 2022-07-30 09:25 | Day surgery (SDC) | payer MEDICARE ==
[~2022-07-30] VITALS: Ht 170.1 cm; Wt 64.1 kg
[2022-07-30] MEDS ORDERED: MOXIFLOXACIN OPHTH SOLN 5 MG/ML 0.3 ML SYRINGE OP ONE (09:30)
[2022-07-30] MEDS ORDERED: TIMOLOL 0.5% (CATARACTS) 0.3 ML BTL OU PRN (09:30)
[2022-07-30] MEDS ORDERED: POVIDONE (BETADINE) OPHTH SOLN 5% 30 ML OP ONE (09:30)
[2022-07-30] MEDS: TETRACAINE 0.5% OPHTH SOLN 4 ML BTL (SINGLE DOSE ONLY) OU PRN ×4 (09:34→09:50)
[2022-07-30] MEDS: PHENYLEPHRINE 10% OPHTH (NEO-SYN) 5 ML BTL OU SCH ×3 (09:40→09:50)
[2022-07-30] MEDS: TROPICAMIDE 1% OPH SOLN (MYDRIACYL) 15 ML BTL OP SCH ×3 (09:40→09:50)
[2022-07-30] MEDS ORDERED: MIDAZOLAM 2 MG/2 ML (VERSED) VIAL ONE (09:43)
[2022-07-30 09:45] VITALS: BP 112/76
--- NOTE | 2022-07-30 09:52 | Ophthalmologist Pre-Op Note ---
Pre-Operative Progress Note H&P Reviewed The H&P was reviewed, patient examined and no changes noted. Date H&P Reviewed: Jul 30, 2022 Time H&P Reviewed: 09:52 Pre-Op Dx Cataract, Left Eye MARTHA AHN MD Jul 30, 2022 09:52
--- NOTE | 2022-07-30 10:15 | Ophthalmology Operative Report ---
Cataract removal/placement IOL PREOPERATIVE DIAGNOSIS: Cataract Left Eye POSTOPERATIVE DIAGNOSIS: Cataract Left Eye PROCEDURE: Cataract removal and placement of posterior chamber implant, left eye SURGEON: Ba Ahn ANESTHESIA: Topical with sedation COMPLICATIONS: None ESTIMATED BLOOD LOSS: Minimal DESCRIPTION OF PROCEDURE: After proper informed consent was obtained, the patient, a 72 male, was taken to the Operating Room and the left eye was anesthetized with tetracaine. The left eye was then prepped and draped in the usual manner. A wire lid speculum was placed. A paracentesis was made at the left hand position. Preservative free lidocaine was injected into the anterior chamber followed by viscoelastic. A clear corneal incision was made in the temporal position. A capsulorrhexis was preformed and the central nuclear and cortical material were removed. The posterior capsule was polished and an Ander 17.0 AU00T0 was placed into the capsular bag. The residual viscoelastic was aspirated and balanced saline solution was injected into the anterior chamber. Moxifloxacin was injected into the anterior chamber. The wound was checked and found to be water tight. The patient tolerated the procedure well without complications. BA AHN MD Jul 30, 2022 10:15
[2022-07-30 10:33] VITALS: BP 103/76
[2022-07-30] MEDS ORDERED: acetaZOLAMIDE ER 500 MG CAP (DIAMOX SEQUELS) PO ONE (12:00)
--- NOTE | 2022-07-30 12:06 | Anesthesia-General Post-Op ---
MAC Patient Condition Mental Status/LOC: Same as Preop Cardiovascular: Satisfactory Nausea/Vomiting: Absent Respiratory: Satisfactory Pain: Controlled Complications: Absent Post Op Complications Complications None Follow Up Care/Instructions Patient Instructions None needed. Anesthesiology Discharge Order Discharge Order Patient was doing well this morning after the procedure with no complaints, stable vital signs, no apparent adverse anesthesia problems. No complications reported per nursing. LEOBARDO GUILLORY DO Jul 30, 2022 12:06
== END 2022-07-30 10:34 | disposition home or self-care (01) ==
LOC: SDC 09:25
PROVIDERS: ATTEND Specialist
DX: H25.9 Unspecified age-related cataract (principal); Z87.891 Personal history of nicotine dependence; Z89.619 Acquired absence of unspecified leg above knee
CPT/HCPCS: 66984; V2632

== ENCOUNTER → 2022-11-12 | Outpatient (CLI) | payer MEDICARE ==
[2022-11-12 11:48] LABS: BASOPHILS # (AUTO) 0.1 10^3/uL (0.0-0.1); BASOPHILS % (AUTO) 1 % (0-10); EOSINOPHILS # (AUTO) 0.2 10^3/uL (0.0-0.3); EOSINOPHILS % (AUTO) 3 % (0-10); HEMATOCRIT 39 % (40-54); HEMOGLOBIN 13.1 g/dL (13.3-17.7); LYMPHOCYTES # (AUTO) 1.4 10^3/uL (1.0-4.0); LYMPHOCYTES % (AUTO) 20 % (12-44); MEAN CORPUSCULAR HEMOGLOBIN 31 pg (25-34); MEAN CORPUSCULAR HGB CONC 34 g/dL (32-36); MEAN CORPUSCULAR VOLUME 94 fL (80-99); MEAN PLATELET VOLUME 8.3 fL (9.0-12.2); MONOCYTES # (AUTO) 0.6 10^3/uL (0.0-1.0); MONOCYTES % (AUTO) 8 % (0-12); NEUTROPHILS # (AUTO) 4.6 10^3/uL (1.8-7.8); NEUTROPHILS % (AUTO) 67 % (42-75); PLATELET COUNT 320 10^3/uL (130-400); WHITE BLOOD COUNT 6.8 10^3/uL (4.3-11.0)
[2022-11-12 12:00] LABS: ALBUMIN 4.3 GM/DL (3.2-4.5); POTASSIUM 4.9 MMOL/L (3.6-5.0)
[2022-11-12 12:01] LABS: CALCIUM 9.5 MG/DL (8.5-10.1)
[2022-11-12 12:03] LABS: TOTAL PROTEIN 7.1 GM/DL (6.4-8.2)
[2022-11-12 12:04] LABS: BILIRUBIN,TOTAL 0.4 MG/DL (0.1-1.0)
[2022-11-12 12:06] LABS: CREATININE SERUM 0.82 MG/DL (0.60-1.30)
[2022-11-12 12:30] LABS: ERYTHROCYTE SEDIMENTATION RATE 8 MM/HR (0-30)
== END ==
LOC: WOUNDCARE 10:13
PROVIDERS: ATTEND Family Medicine
DX: I70.235 Atherosclerosis of native arteries of right leg with ulceration of other part of foot (principal); L97.516 Non-pressure chronic ulcer of other part of right foot with bone involvement without evidence of necrosis; L97.511 Non-pressure chronic ulcer of other part of right foot limited to breakdown of skin; F10.11 Alcohol abuse, in remission; M20.41 Other hammer toe(s) (acquired), right foot
CPT/HCPCS: 80053; 82607; 82746; 84134; 85025; 85652; 86141; G0463; 36415; 99213

== ENCOUNTER → 2022-11-15 | Outpatient (CLI) | payer MEDICARE ==
[~2022-11-15] MED LIST changes: +GADOTERATE 0.5 MMOL/ML (CLARISCAN) 15 ML VIAL IV ONE
--- NOTE | 2022-11-15 14:57 | Diagnostic Imaging Report ---
Exam: MRI right foot without and with intravenous contrast. Date: November 15, 2022. Indication: 72-year-old male, right foot pain. Evaluation for osteomyelitis. Comparison: None. Technique: Multiple pre and postcontrast MR sequences of the right foot were obtained. Findings: There is a skin defect dorsally located at the level of the first distal phalanx. There is no identified focal fluid collection or abscess. There is no T1 marrow signal loss, marrow edema, or marrow enhancement. There is no identified acute fracture. There is severe osteoarthritis of the first metatarsophalangeal joint. There is no joint effusion. There is subcutaneous edema at the dorsal aspect of the foot. Impression: 1. Dorsal skin defect at the level of the first distal phalanx without focal fluid collection or abscess. 2. No evidence of osteomyelitis. 3. Severe osteoarthritis of the first metatarsophalangeal joint. Dictated by: Dictated on workstation # [id number]
== END ==
LOC: RAD 13:30
PROVIDERS: ATTEND Family Medicine
DX: M19.071 Primary osteoarthritis, right ankle and foot (principal); L97.516 Non-pressure chronic ulcer of other part of right foot with bone involvement without evidence of necrosis; L97.511 Non-pressure chronic ulcer of other part of right foot limited to breakdown of skin; I70.235 Atherosclerosis of native arteries of right leg with ulceration of other part of foot; F10.11 Alcohol abuse, in remission; M20.41 Other hammer toe(s) (acquired), right foot
CPT/HCPCS: 73720

== ENCOUNTER → 2022-11-18 | Outpatient (CLI) | payer MEDICARE ==
[~2022-11-18] MED LIST changes: -GADOTERATE 0.5 MMOL/ML (CLARISCAN) 15 ML VIAL IV ONE
== END ==
LOC: WOUNDCARE 14:58
PROVIDERS: ATTEND Family Medicine
DX: L97.516 Non-pressure chronic ulcer of other part of right foot with bone involvement without evidence of necrosis (principal); L97.511 Non-pressure chronic ulcer of other part of right foot limited to breakdown of skin; I70.235 Atherosclerosis of native arteries of right leg with ulceration of other part of foot; M20.41 Other hammer toe(s) (acquired), right foot; I96 Gangrene, not elsewhere classified; F10.11 Alcohol abuse, in remission
CPT/HCPCS: A6212; G0463; 99213

== ENCOUNTER → 2022-11-24 | Outpatient (CLI) | payer MEDICARE | LOC: WOUNDCARE 13:33 | PROVIDERS: ATTEND Family Medicine | DX: L97.516 Non-pressure chronic ulcer of other part of right foot with bone involvement without evidence of necrosis (principal); L97.511 Non-pressure chronic ulcer of other part of right foot limited to breakdown of skin; I70.235 Atherosclerosis of native arteries of right leg with ulceration of other part of foot; M20.41 Other hammer toe(s) (acquired), right foot; I96 Gangrene, not elsewhere classified; F10.11 Alcohol abuse, in remission | CPT/HCPCS: 97597; G0463 ==

== ENCOUNTER → 2022-12-20 | Outpatient (CLI) | payer MEDICARE | LOC: WOUNDCARE 15:32 | PROVIDERS: ATTEND Family Medicine | DX: L97.516 Non-pressure chronic ulcer of other part of right foot with bone involvement without evidence of necrosis (principal); I70.235 Atherosclerosis of native arteries of right leg with ulceration of other part of foot; F10.11 Alcohol abuse, in remission; M20.41 Other hammer toe(s) (acquired), right foot; I96 Gangrene, not elsewhere classified | CPT/HCPCS: 99212 ==

== ENCOUNTER → 2022-12-20 | Outpatient (CLI) | payer MEDICARE ==
[~2022-12-20] MED LIST changes: +IOHEXOL 350 MG/ML 100 ML (OMNIPAQUE 350) VIAL IV ONE; +NS 100 ML (IVPB) BAG IV ONE
--- NOTE | 2022-12-20 19:40 | Diagnostic Imaging Report ---
INDICATION: Peripheral vascular disease, ulcerations of both lower extremities, right greater than left. CTA of the aorta and lower extremities was performed with pre- and post-IV contrast images with 3-D reconstructions. Dose reduction protocol was used. Visualized portions of the lung bases show some chronic interstitial changes. There is prominent elevation of the left hemidiaphragm. The liver, gallbladder and spleen appear unremarkable. The adrenals, pancreas and kidneys appear unremarkable. There is no retroperitoneal mass or adenopathy. There is no ascites or abnormal fluid collection. There is an intramedullary yeimy in the right femur. CTA images demonstrate diffuse atherosclerotic changes of the abdominal aorta without evidence of aneurysm or dissection. There is diffuse calcified plaquing in the aorta with moderate stenosis, no high-grade aortic stenosis was seen. The celiac trunk and SMA are patent but do show moderate stenoses at their origins. There is extensive calcification throughout the SMA trunk. There are dense calcifications of the renal artery origins on both sides with significant bilateral renal artery stenoses. The inferior mesenteric artery is patent. The common iliac arteries show extensive irregular calcified plaquing on both sides with diffuse stenosis. There is extensive calcific plaquing throughout the external iliac arteries on both sides with diffuse 70% stenoses. The internal iliac arteries show extensive calcified plaquing, as well. The common femoral arteries show extensive calcified plaquing on both sides with high-grade stenoses. Profunda femoris on both sides are patent. On the left side, the SFA shows diffuse irregular disease throughout with a stent in the proximal SFA. The left SFA shows diffuse long segment stenosis, there is occlusion of the left popliteal artery segmentally, the patient has a left below the knee amputation. On the right side, there is extensive plaquing in the common femoral artery and profunda femoris with significant stenosis. There is occlusion of the right proximal SFA with dense calcification throughout the course of the right SFA. There is reconstitution of the right popliteal artery over a short segment, but the right popliteal artery is markedly diseased and then occludes. There is some collateral flow to the densely calcified tibial vessels which appear patent. IMPRESSION: Extensive peripheral vascular disease, as described above. There is diffuse stenosis and irregular densely calcified plaquing in the aorta and iliac vessels and common femoral arteries. There is occlusion of the right SFA with poor reconstitution of the right popliteal artery. There is diffuse disease of the left SFA with occlusion of the popliteal artery, the patient has a left [id number] amputation. There are bilateral renal artery stenoses with moderate celiac and SMA stenoses. Due to the heavy calcified plaque burden, conventional angiography may be helpful for further anatomic definition. Dictated by: Dictated on workstation # [id number]
== END ==
LOC: RAD 16:03
PROVIDERS: ATTEND Surgery Vascular Surgery
DX: I70.239 Atherosclerosis of native arteries of right leg with ulceration of unspecified site (principal); I70.249 Atherosclerosis of native arteries of left leg with ulceration of unspecified site
CPT/HCPCS: 75635

== ENCOUNTER 2023-01-13 12:42 | Emergency (ER) | payer MEDICARE ==
[~2023-01-13] VITALS: Ht 172.7 cm; Wt 61.0 kg
[~2023-01-13 12:42] MED LIST changes: -IOHEXOL 350 MG/ML 100 ML (OMNIPAQUE 350) VIAL IV ONE; -NS 100 ML (IVPB) BAG IV ONE
--- NOTE | 2023-01-13 12:58 | ED General ---
General Chief Complaint: Respiratory Problems Stated Complaint: RESPIRATORY ISSUE Nursing Triage Note: PT TO [facility] BY [facility] WITH C/O LOW OXYGEN AT FACILITY ACCORDING TO WORKERS. PT HAS NO COMPLAINTS AT THIS TIME Source of Information: Patient Exam Limitations: No Limitations (ROSA JONAS) History of Present Illness Date Seen by Provider: Jan 13, 2023 Time Seen by Provider: 12:54 Initial Comments Patient is a 72-year-old male with a history of coronary artery disease, COPD, CHF, anemia, bka who presents ED by EMS from our [facility] for low oxygen. Patient was doing his rehab this morning. He was found to have a oxygen level in the mid 80s He was placed on 3 L of oxygen. During that time patient felt asymptomatic. According to EMS patient was not complaining of any symptoms. Patient states he was on a cruise earlier this month. Suffered a NSTEMI and had a cardiac catheterization performed at [facility]. Patient states he wears oxygen as needed. Oxygen was removed on arrival 99% on room air. He has no current complaints. He denies of any chest pain or feeling short of breath today. At the time where he had his NSTEMI he was complaining of shortness of breath. Patient denies of any fever, chills, nausea, vomiting, diarrhea, leg swelling, abdominal pain, dysuria, hematuria. Patient was not given any treatment. (ROSA JONAS) Allergies and Home Medications Allergies Coded Allergies: No Known Drug Allergies (Unverified , 03/08/18) Patient Home Medication List Home Medication List Reviewed: Yes (ROSA JONAS) Albuterol Sulfate (Albuterol Sulfate) 2.5 Mg/0.5 Ml Vial.neb, 2.5 MG INH TID, (Reported) Entered as Reported by: STEPHON SUE on 05/31/19 0800 Aspirin (Aspirin) 81 Mg Tab.chew, 81 MG PO DAILY, (Reported) Entered as Reported by: NANETTE CASTILLO on 03/08/18 1031 Clopidogrel Bisulfate (Clopidogrel) 75 Mg Tablet, 75 MG PO DAILY, (Reported) Entered as Reported by: NANETTE CASTILLO on 03/08/18 1031 Cyclobenzaprine HCl (Cyclobenzaprine HCl) 10 Mg Tablet, 10 MG PO TID, (Reported) Entered as Reported by: STEPHON SUE on 05/31/19 0800 Furosemide (Lasix) 40 Mg Tablet, 40 MG PO DAILY, (Reported) Entered as Reported by: EMIR DE LA FUENTE on 07/14/22 1148 Hydrocodone/Acetaminophen (Hydrocodone-Acetamin 10-325 mg) 10 Mg-325 Mg Tablet, 1 EACH PO UD, (Reported) Entered as Reported by: EMIR DE LA FUENTE on 07/14/22 1148 Lisinopril (Lisinopril) 10 Mg Tablet, 10 MG PO DAILY, (Reported) Entered as Reported by: NANETTE CASTILLO on 03/08/18 1031 Potassium Chloride (Potassium Chloride) 10 Meq Tab.er.prt, 10 MEQ PO DAILY, (Reported) Entered as Reported by: STEPHON SUE on 05/31/19 0800 Pravastatin Sodium (Pravastatin Sodium) 40 Mg Tablet, 40 MG PO DAILY, (Reported) Entered as Reported by: FADIA PATTERSON on 12/03/16 1838 Tramadol HCl (Tramadol HCl) 50 Mg Tablet, 50 MG PO Q6H PRN for PAIN-MODERATE (5- 7), (Reported) Entered as Reported by: STEPHON SUE on 05/31/19 0800 Review of Systems Review of Systems Constitutional: No chills, No diaphoresis, No fever, No malaise, No weakness EENTM: No blurred vision, No double vision Respiratory: No cough, No dyspnea on exertion Cardiovascular: No chest pain Gastrointestinal: No abdominal pain, No diarrhea, No nausea Genitourinary: No decreased output Musculoskeletal: No back pain, No joint pain, No joint swelling, No muscle pain Skin: No change in color Psychiatric/Neurological: Denies Headache (ROSA JONAS) All Other Systems Reviewed Negative Unless Noted: Yes (ROSA JONAS) Past Klmcohi-Lcxszz-Znuqda Hx Immunizations Up To Date Tetanus Booster (TDap): Unknown (ROSA JONAS) Seasonal Allergies Seasonal Allergies: Yes (ROSA JONAS) Past Medical History Surgeries: Yes (TRIPPLE BYPASS WITH STENT) Cardiac, CABG, Orthopedic Respiratory: Yes (ELEVATED LEFT HEMIDIAPHRAGM POST OP) COPD Currently Using CPAP: No Currently Using BIPAP: No Cardiac: Yes ( CABG, STENT ) Coronary Artery Disease, High Cholesterol, Hypertension Neurological: No Reproductive Disorders: No Sexually Transmitted Disease: No HIV/AIDS: No Genitourinary: No Gastrointestinal: Yes (ELEVATED LEFT HEMIDIAPHRAGM POST LEFT CHEST SURGERY FOR UNKNOWN REASON. ) Gastroesophageal Reflux, Chronic Constipation Musculoskeletal: Yes (RIGHT HIP FX/ORIF, left distal radius fx) Degenerate Disk Disease, Arthritis, Chronic Back Pain, Fractures Endocrine: No HEENT: Yes (dentures) Loss of Vision: Bilateral Hearing Impairment: Hard of Hearing Cancer: No Psychosocial: No Integumentary: No Blood Disorders: Yes (POST OP ANEMIA AFTER HIP FX REPAIR--S/P TRANSFUSION) Adverse Reaction/Blood Tranf: No (ROSA JONAS) Family Medical History Cardiovascular disease 19 FATHER 19 MOTHER G8 BROTHER G8 SISTER FH: breast cancer 19 MOTHER Hypertension 19 FATHER 19 MOTHER Physical Exam Vital Signs Vital Signs - First Documented 01/13/23 01/13/23 12:45 13:52 Temp 36.6 Pulse 100 Resp 18 B/P (MAP) 121/85 (97) Pulse Ox 97 O2 Delivery Room Air (MYO FELDER MD) Vital Signs Capillary Refill : (ROSA JONAS) Height, Weight, BMI Height: 5'9.00" Weight: 124lbs. 0oz. [id number]; 20.00 BMI Method:Stated General Appearance: No Apparent Distress, WD/WN Eyes: Bilateral Eye Normal Inspection, Bilateral Eye PERRL, Bilateral Eye EOMI HEENT: PERRL/EOMI, TMs Normal, Normal ENT Inspection, Pharynx Normal Neck: Full Range of Motion, Normal Inspection, Non Tender, Supple Respiratory: Chest Non Tender, Lungs Clear, Normal Breath Sounds, No Accessory Muscle Use, No Respiratory Distress Cardiovascular: Regular Rate, Rhythm, No Edema, No Gallop, No JVD Gastrointestinal: Normal Bowel Sounds, No Organomegaly, No Pulsatile Mass Back: Normal Inspection, No CVA Tenderness, No Vertebral Tenderness Neurologic/Psychiatric: Alert, Oriented x3, No Motor/Sensory Deficits, Normal Mood/Affect, enzyme chemist II-XII Norm as Tested Skin: Normal Color, Warm/Dry (ROSA JONAS) Progress/Results/Core Measures Suspected Sepsis SIRS Temperature: Pulse: 100 Respiratory Rate: Blood Pressure 121 /85 Mean: 97 (ROSA JONAS) Results/Orders Vital Signs/I&O 01/13/23 01/13/23 01/13/23 12:45 12:45 13:52 Temp 36.6 Pulse 100 106 Resp 18 B/P (MAP) 121/85 (97) 104/80 Pulse Ox 97 98 O2 Delivery Room Air Room Air Room Air (MOY FELDER MD) Vital Signs/I&O Capillary Refill : (ROSA JONAS) Blood Pressure Mean: 97 Departure Communication (PCP) Patient with a history of hypertension, COPD, coronary artery disease, CHF who presents to ED for evaluation for abnormal oxygen level on a pulse oximeter. Patient had a NSTEMI earlier this month was evaluated at [facility] coming off a cruise. Patient currently at acute care and rehab. Patient Was getting ready for PT. According to nursing staff at [facility] rehab his oxygen level was in the mid 80s. He was placed on 3 L with improvement. patient does not wear oxygen daily. Does wear oxygen intermittently as needed. Patient talking in complete sentences. Patient denies chest pain, short of breath or cough. Denies vomiting or diarrhea. He is currently asymptomatic. 98% on room air. Vital signs were stable. daughter at bedside states that they sent him over for precautionary measures. Due to patient not having any current complaints I did discussed with his primary care physician Alina alonso who is currently taking over his care at this time before ordering a work-up. Discussed patient's current complaint, vital signs and clinical presentation. I did order a chest x-ray which did not note any pleural effusion, pneumothorax or pneumonia at this time. He was afebrile. No flulike symptoms suggesting viral. He is not hypoxic or tachycardic suggesting PE . she did not recommend any further work-up and agreed that patient can be sent back to the facility. He does have some decreased perfusion in the extremities which is likely a result of his low oxygen level reading at [facility]. He remained over 95% during his stay here but had to switch to a different pulse oximeter. Feared condition ruled out. Currently hemodynamically stable clinically does not appear to be in acute respiratory distress. Recommend outpatient follow-up. If any worsening symptoms return back to ED for further valuation (ROSA JONAS) Impression Primary Impression: Feared condition not demonstrated Disposition: 01 HOME, SELF-CARE Condition: Stable Departure-Patient Inst. Decision time for Depature: 13:30 (ROSA JONAS) Referrals: PRISCILA PITT MD (PCP/Family) Primary Care Physician Patient Instructions: General (DC) Add. Discharge Instructions: Recommend follow-up with your primary care physician for further evaluation. All discharge instructions reviewed with patient and/or family. Voiced underst anding. ATTENDING PHYSICIAN NOTE: I was physically present as attending physician in the emergency department during the care of this patient, but I was not directly involved in the decision making or delivery of care for this patient. (MOY FELDER MD) ROSA JONAS Jan 13, 2023 12:58 MOY FELDER MD Jan 13, 2023 19:54
--- NOTE | 2023-01-13 13:33 | Diagnostic Imaging Report ---
EXAMINATION: Chest 1 view HISTORY: Dyspnea. COMPARISON: 07/14/2018. FINDINGS: The left hemidiaphragm is elevated, similar to the prior exam. Small amount of left basilar atelectasis. No focal consolidation is seen. No large pleural effusion or pneumothorax is seen. The cardiomediastinal silhouette is stable in size with post-CABG changes. There is calcified aortic atherosclerotic plaque. No acute osseous abnormality is seen. IMPRESSION: 1. Stable elevated hemidiaphragm on the left with left basilar atelectasis. 2. Stable cardiomegaly. No overt pulmonary edema. Dictated by: Dictated on workstation # [id number]
[2023-01-13 13:52] VITALS: BP 104/80
[2023-01-18] MEDS ORDERED: DICL100G13 TP ×2 (11:04→16:43)
== END 2023-01-13 13:54 | disposition home or self-care (01) ==
LOC: EDUNIT# 12:42 → ER 12:43
DX: Z71.1 Person with feared health complaint in whom no diagnosis is made (principal)
CPT/HCPCS: 71045

== ENCOUNTER 2023-01-17 20:04 | Inpatient (IN) | payer MEDICARE ==
[~2023-01-17] VITALS: Ht 175.3 cm; Wt 56.5 kg
[2023-01-17] MEDS ORDERED: RT-Ipratropium/Albuterol NEB 3 ML VIAL ONE (20:24)
--- NOTE | 2023-01-17 20:27 | ED General ---
General Chief Complaint: Respiratory Problems Stated Complaint: SOA Nursing Triage Note: PT ARRIVED POV FROM [facility] WITH CC OF SOB, WEAKNESS, AND FEVER. PTS DAUGHTER STATES THAT HE DEVELOPED SOB 2 HRS AGO AND WAS GIVEN A DUO-NEB. PT WAS READING 83% RA ON ARRIVAL. PT HAS HX OF COPD. Source of Information: Patient Exam Limitations: No Limitations History of Present Illness Date Seen by Provider: Jan 17, 2023 Time Seen by Provider: 20:20 Initial Comments This is 72-year-old gentleman is brought to the emergency room by his daughter from [facility] with respiratory distress, weakness, and fever. He has been ill for about 2 days. He was given DuoNeb prior to arrival. Oxygen saturation on arrival was 83% on room air. He has known history of COPD. He also reportedly suffered an MT while in [facility] about a month ago. He was admitted there and underwent cardiac catheterization. No interventions were performed. Per daughter's report, he had inoperable disease. He does have history of coronary artery disease and prior CABG. According to his medical history, it appears that he takes Plavix. His usp paperwork was not brought with him, so I am not aware of his full medication list. He does not typically have to wear oxygen. He just returned from [place] last Tuesday, about 5 days ago. He had complications during that hospitalization that included urinary obstruction and a bowel obstruction. He did have to undergo decompressive colonoscopy. Patient provides little history, and his daughter provides much of the history. Patient does appear in respiratory distress with wheezing and increased work of breathing on arrival. Patient is full code. He is febrile during assessment. Patient is shivering. Allergies and Home Medications Allergies Coded Allergies: No Known Drug Allergies (Unverified , 03/08/18) Patient Home Medication List Home Medication List Reviewed: Yes Albuterol Sulfate (Albuterol Sulfate) 2.5 Mg/0.5 Ml Vial.neb, 2.5 MG INH TID, (Reported) Entered as Reported by: STEPHON SUE on 05/31/19 0800 Aspirin (Aspirin) 81 Mg Tab.chew, 81 MG PO DAILY, (Reported) Entered as Reported by: NANETTE CASTILLO on 03/08/18 1031 Clopidogrel Bisulfate (Clopidogrel) 75 Mg Tablet, 75 MG PO DAILY, (Reported) Entered as Reported by: NANETTE CASTILLO on 03/08/18 1031 Cyclobenzaprine HCl (Cyclobenzaprine HCl) 10 Mg Tablet, 10 MG PO TID, (Reported) Entered as Reported by: STEPHON SUE on 05/31/19 0800 Furosemide (Lasix) 40 Mg Tablet, 40 MG PO DAILY, (Reported) Entered as Reported by: EMIR DE LA FUENTE on 07/14/22 1148 Hydrocodone/Acetaminophen (Hydrocodone-Acetamin 10-325 mg) 10 Mg-325 Mg Tablet, 1 EACH PO UD, (Reported) Entered as Reported by: EMIR DE LA FUENTE on 07/14/22 1148 Lisinopril (Lisinopril) 10 Mg Tablet, 10 MG PO DAILY, (Reported) Entered as Reported by: NANETTE CASTILLO on 03/08/18 1031 Potassium Chloride (Potassium Chloride) 10 Meq Tab.er.prt, 10 MEQ PO DAILY, (Reported) Entered as Reported by: STEPHON SUE on 05/31/19 0800 Pravastatin Sodium (Pravastatin Sodium) 40 Mg Tablet, 40 MG PO DAILY, (Reported) Entered as Reported by: FADIA PATETRSON on 12/03/16 1838 Tramadol HCl (Tramadol HCl) 50 Mg Tablet, 50 MG PO Q6H PRN for PAIN-MODERATE (5- 7), (Reported) Entered as Reported by: STEPHON SUE on 05/31/19 0800 Review of Systems Review of Systems Constitutional: see HPI EENTM: no symptoms reported Respiratory: see HPI Cardiovascular: see HPI Gastrointestinal: no symptoms reported Genitourinary: no symptoms reported Musculoskeletal: no symptoms reported Skin: no symptoms reported Psychiatric/Neurological: No Symptoms Reported Hematologic/Lymphatic: No Symptoms Reported Immunological/Allergic: no symptoms reported Past Cwrvnzo-Hqwgoa-Uobwjw Hx Patient Social History Tobacco Use?: No Smoking Status: Former Smoker Substance use?: No Alcohol Use?: Yes Alcohol Frequency: Once in a while Immunizations Up To Date Tetanus Booster (TDap): Unknown Seasonal Allergies Seasonal Allergies: Yes Past Medical History Surgery/Hospitalization HX: CHF,NSTEMI, CABG, ANEMIA, HTN, L BKA, COPD Surgeries: Yes (TRIPPLE BYPASS WITH STENT) Cardiac, CABG, Coronary Stent, Orthopedic Respiratory: Yes (ELEVATED LEFT HEMIDIAPHRAGM POST OP) COPD Currently Using CPAP: No Currently Using BIPAP: No Cardiac: Yes ( CABG, STENT ) Coronary Artery Disease, Heart Attack, High Cholesterol, Hypertension Neurological: No Reproductive Disorders: No Sexually Transmitted Disease: No HIV/AIDS: No Genitourinary: No Gastrointestinal: Yes (ELEVATED LEFT HEMIDIAPHRAGM POST LEFT CHEST SURGERY FOR UNKNOWN REASON. ) Gastroesophageal Reflux, Chronic Constipation Musculoskeletal: Yes (RIGHT HIP FX/ORIF, left distal radius fx) Degenerate Disk Disease, Arthritis, Chronic Back Pain, Fractures Endocrine: No HEENT: Yes (dentures) Loss of Vision: Bilateral Hearing Impairment: Hard of Hearing Cancer: No Psychosocial: No Integumentary: No Blood Disorders: Yes (POST OP ANEMIA AFTER HIP FX REPAIR--S/P TRANSFUSION) Adverse Reaction/Blood Tranf: No Family Medical History Cardiovascular disease 19 FATHER 19 MOTHER G8 BROTHER G8 SISTER FH: breast cancer 19 MOTHER Hypertension 19 FATHER 19 MOTHER Physical Exam-Suspected Sepsis Physical Exam Vital Signs Vital Signs - First Documented 01/17/23 01/17/23 01/17/23 01/17/23 20:14 20:22 20:42 23:30 Temp 38.2 Pulse 129 Resp 31 B/P (MAP) 148/116 (127) Pulse Ox 83 O2 Delivery Room Air O2 Flow Rate 4.00 FiO2 50 Capillary Refill : Blood Pressure Mean: 127 Height, Weight, BMI Height: 5'9.00" Weight: 124lbs. 0oz. [id number]; 19.00 BMI Method:Stated General Appearance: WD/WN, Moderate Distress HEENT: PERRL/EOMI, Normal ENT Inspection Neck: Normal Inspection; No JVD Respiratory: Accessory Muscle Use; No Crackles; Decreased Breath Sounds (significantly decrease in left base), Wheezing Cardiovascular: No Murmur, Tachycardia Gastrointestinal: Non Tender, Soft Extremity: Pedal Edema Neurologic/Psychiatric: Alert, No Motor/Sensory Deficits Skin: normal color, warm/dry Focused Exam Sepsis Stage: Sepsis Possible Source: Genitouriary Lactate Level 01/17/23 20:15: Lactic Acid Level 2.22*H 01/17/23 22:14: Lactic Acid Level 1.35 Time of Focused Exam: 22:30 Respiratory: Other (Respiratory distress resolved on BiPAP) Cardiovascular: No Edema, Tachycardia Skin: normal color Lactic Acid Level Within 3hrs of presentation: Admin ABX, Blood cultures prior to ABX's, Focus exam, Lactate level Progress/Results/Core Measures Suspected Sepsis SIRS Temperature: Pulse: 129 Respiratory Rate: Laboratory Tests 01/17/23 20:15: White Blood Count 5.3 Blood Pressure 148 /116 Mean: 127 01/17/23 20:15: Lactic Acid Level 2.22*H 01/17/23 22:14: Lactic Acid Level 1.35 Laboratory Tests 01/17/23 20:15: Creatinine 0.72, INR Comment 1.0, Platelet Count 256, Total Bilirubin 1.0 Results/Orders Lab Results Laboratory Tests Test 01/17/23 20:12 01/17/23 20:15 01/17/23 20:42 01/17/23 22:14 Range/Units Influenza Type A (RT-PCR) Not Detected Not Detecte Influenza Type B (RT-PCR) Not Detected Not Detecte SARS-CoV-2 RNA (RT-PCR) Detected H Not Detecte White Blood Count 5.3 4.3-11.0 10^3/uL Red Blood Count 3.72 L 4.30-5.52 10^6/uL Hemoglobin 12.1 L 13.3-17.7 g/dL Hematocrit 37 L 40-54 % Mean Corpuscular Volume 100 H 80-99 fL Mean Corpuscular Hemoglobin 33 25-34 pg Mean Corpuscular Hemoglobin Concent 33 32-36 g/dL Red Cell Distribution Width 18.6 H 10.0-14.5 % Platelet Count 256 130-400 10^3/uL Mean Platelet Volume 8.5 L 9.0-12.2 fL Immature Granulocyte % (Auto) 0 % Neutrophils (%) (Auto) 68 42-75 % Lymphocytes (%) (Auto) 23 12-44 % Monocytes (%) (Auto) 6 0-12 % Eosinophils (%) (Auto) 3 0-10 % Basophils (%) (Auto) 0 0-10 % Neutrophils # (Auto) 3.6 1.8-7.8 10^3/uL Lymphocytes # (Auto) 1.2 1.0-4.0 10^3/uL Monocytes # (Auto) 0.3 0.0-1.0 10^3/uL Eosinophils # (Auto) 0.2 0.0-0.3 10^3/uL Basophils # (Auto) 0.0 0.0-0.1 10^3/uL Immature Granulocyte # (Auto) 0.0 0.0-0.1 10^3/uL Prothrombin Time 13.6 12.2-14.7 SEC INR Comment 1.0 0.8-1.4 Activated Partial Thromboplast Time 43 H 24-35 SEC Sodium Level 132 L 135-145 MMOL/L Potassium Level 3.5 L 3.6-5.0 MMOL/L Chloride Level 96 L 98-107 MMOL/L Carbon Dioxide Level 23 21-32 MMOL/L Anion Gap 13 5-14 MMOL/L Blood Urea Nitrogen 8 7-18 MG/DL Creatinine 0.72 0.60-1.30 MG/DL Estimat Glomerular Filtration Rate 98 BUN/Creatinine Ratio 11 Glucose Level 93 70-105 MG/DL Lactic Acid Level 2.22 *H 1.35 0.50-2.00 MMOL/L Calcium Level 8.8 8.5-10.1 MG/DL Corrected Calcium 8.8 8.5-10.1 MG/DL Magnesium Level 1.9 1.6-2.4 MG/DL Total Bilirubin 1.0 0.1-1.0 MG/DL Aspartate Amino Transf (AST/SGOT) 36 H 5-34 U/L Alanine Aminotransferase (ALT/SGPT) 30 0-55 U/L Alkaline Phosphatase 88 40-136 U/L Myoglobin 52.9 10.0-92.0 NG/ML Troponin I 0.157 H <0.028 NG/ML C-Reactive Protein High Sensitivity 9.22 H 0.00-0.50 MG/DL B-Type Natriuretic Peptide 341.2 H <100.0 PG/ML Total Protein 7.2 6.4-8.2 GM/DL Albumin 4.0 3.2-4.5 GM/DL Urine Color YELLOW Urine Clarity CLOUDY Urine pH 5.5 5-9 Urine Specific [place] 1.020 1.016-1.022 Urine Protein TRACE H NEGATIVE Urine Glucose (UA) NEGATIVE NEGATIVE Urine Ketones NEGATIVE NEGATIVE Urine Nitrite NEGATIVE NEGATIVE Urine Bilirubin NEGATIVE NEGATIVE Urine Urobilinogen 0.2 < = 1.0 MG/DL Urine Leukocyte Esterase 1+ H NEGATIVE Urine RBC (Auto) NEGATIVE NEGATIVE Urine RBC NONE /HPF Urine WBC 10-25 H /HPF Urine Squamous Epithelial Cells NONE /HPF Urine Crystals NONE /LPF Urine Bacteria LARGE H /HPF Urine Casts NONE /LPF Urine Mucus NEGATIVE /LPF Urine Culture Indicated CULTURE PENDING Test 01/18/23 03:30 Range/Units Blood Gas Puncture Site RR Blood Gas Patient Temperature 37.8 Arterial Blood pH 7.39 7.37-7.43 Arterial Blood Partial Pressure CO2 39 35-45 MMHG Arterial Blood Partial Pressure O2 85 79-93 MMHG Arterial Blood HCO3 23 23-27 MMOL/L Arterial Blood Total CO2 23.9 21.0-31.0 MMOL/L Arterial Blood Oxygen Saturation 98 94-100 % Arterial Blood Base Excess -1.4 -2.5-2.5 MMOL/L Nestor Test YES-POS Blood Gas Ventilator Setting NO Blood Gas Inspired Oxygen 50% My Orders Orders - MOY FELDER MD Ekg Tracing (01/17/23 20:23) Ipratropium/Albuterol Inh Soln (Ipratrop (01/17/23 20:30) Svn Small Volume Nebulizer (01/17/23 20:24) Cbc With Automated Diff (01/17/23 20:24) Magnesium (01/17/23 20:24) Chest 1 View, Ap/Pa Only (01/17/23 20:24) Comprehensive Metabolic Panel (01/17/23 20:24) Myoglobin Serum (01/17/23 20:24) Protime With Inr (01/17/23 20:24) Partial Thromboplastin Time (01/17/23 20:24) O2 (01/17/23 20:24) Monitor-Rhythm Ecg Trace Only (01/17/23 20:24) Lipid Panel (01/18/23 06:00) Ed Iv/Invasive Line Start (01/17/23 20:24) Bnp Geoff (01/17/23 20:24) Troponin I Letcher (01/17/23 20:24) Blood Culture (01/17/23 20:24) Sputum Culture (01/17/23 20:24) Urinalysis (01/17/23 20:24) Urine Culture (01/17/23 20:24) Vital Signs Adult Sepsis Patie Q15M (01/17/23 20:24) Remove Rings In Anticipation O (01/17/23 20:24) Lactic Acid Analyzer (01/17/23 20:24) Hs C Reactive Protein (01/17/23 20:24) Covid 19 Inhouse Test (01/17/23 20:24) Influenza A And B By Pcr (01/17/23 20:24) Ipratropium/Albuterol Inh Soln (Ipratrop (01/17/23 20:24) Acetaminophen Tablet (Acetaminophen Ta (01/17/23 20:45) Ipratropium/Albuterol Inh Soln (Ipratrop (01/17/23 20:45) Svn Small Volume Nebulizer (01/17/23 20:38) Dexamethasone Injection (Dexamethasone (01/17/23 21:15) Arterial Blood Gas (01/17/23 21:13) Cefepime Injection (Cefepime Injection) (01/17/23 21:15) Ekg Tracing (01/17/23 21:16) Ed Admission (Communication) (01/17/23 21:18) Aspirin Tablet (Aspirin Tablet) (01/17/23 22:45) Medications Given in ED Current Medications Medications Dose Ordered Sig/Jorge Route Start Time Stop Time Status Last Admin Dose Admin Acetaminophen 650 mg ONCE ONCE PO 01/17/23 20:45 01/17/23 20:46 DC 01/17/23 20:49 650 MG Albuterol/ Ipratropium 3 ml ONCE ONCE INH 01/17/23 20:30 01/17/23 20:31 DC 01/17/23 22:18 3 ML Cefepime HCl 2000 mg/Sodium Chloride 50 ml @ 100 mls/hr ONCE ONCE IV 01/17/23 21:15 01/17/23 21:44 DC 01/17/23 21:48 100 MLS/HR Vital Signs/I&O 01/17/23 01/17/23 01/17/23 01/17/23 20:14 20:22 20:42 22:14 Temp 38.2 Pulse 129 112 114 Resp 31 22 B/P (MAP) 148/116 (127) Pulse Ox 83 O2 Delivery Room Air Nasal Cannula O2 Flow Rate 4.00 50.00 50.00 01/17/23 01/17/23 01/17/23 01/17/23 22:56 23:03 23:05 23:15 Pulse 112 123 113 110 Resp 20 B/P (MAP) 117/64 124/72 (86) 109/65 (88) Pulse Ox 97 89 100 O2 Delivery NIV Bilevel NIV Bilevel NIV Bilevel O2 Flow Rate 50.00 50.00 01/17/23 01/17/23 01/17/23 01/17/23 23:30 23:30 23:45 23:46 Temp 38.2 Pulse 111 114 129 Resp 29 33 B/P (MAP) 116/65 (81) 109/66 (81) Pulse Ox 100 100 99 96 O2 Delivery NIV Bilevel NIV Bilevel NIV Bilevel O2 Flow Rate 50.00 50.00 FiO2 50 50 01/18/23 01/18/23 01/18/23 01/18/23 00:00 00:15 00:30 00:45 Pulse 110 108 105 101 Resp 27 20 24 25 B/P (MAP) 111/63 (80) 126/71 (84) 133/75 (92) 131/74 (93) Pulse Ox 99 100 100 100 O2 Delivery NIV Bilevel NIV Bilevel NIV Bilevel NIV Bilevel O2 Flow Rate 50.00 50.00 50.00 50.00 01/18/23 01/18/23 01/18/23 01/18/23 00:53 01:00 01:00 01:15 Pulse 105 105 104 Resp 26 26 B/P (MAP) 127/72 (87) 119/70 (83) Pulse Ox 100 100 100 O2 Delivery NIV Bilevel NIV Bilevel NIV Bilevel O2 Flow Rate 50.00 50.00 FiO2 50 01/18/23 01/18/23 01/18/23 01/18/23 01:30 01:45 02:00 02:15 Pulse 100 100 99 99 Resp 24 21 26 23 B/P (MAP) 120/70 (84) 116/69 (81) 117/71 (87) 116/66 (79) Pulse Ox 100 100 100 100 O2 Delivery NIV Bilevel NIV Bilevel NIV Bilevel NIV Bilevel O2 Flow Rate 50.00 50.00 50.00 50.00 01/18/23 01/18/23 01/18/23 01/18/23 02:30 02:45 03:00 03:15 Pulse 96 98 95 90 Resp 27 24 35 18 B/P (MAP) 119/69 (81) 120/72 (89) 115/74 (83) 111/55 (77) Pulse Ox 100 100 100 97 O2 Delivery NIV Bilevel NIV Bilevel NIV Bilevel NIV Bilevel O2 Flow Rate 50.00 50.00 50.00 50.00 01/18/23 03:21 Pulse 93 O2 Flow Rate 30.00 01/18/23 00:00 Intake Total 50 ml Balance 50 ml Capillary Refill : Blood Pressure Mean: 127 Progress Note : Time: 23:01 Progress Note Patient was immediately seen and examined. Daughter was interviewed. Patient contributed some to the interview. He was in respiratory distress on arrival. BiPAP was initiated and DuoNeb x2 was administered. This did calm down his breathing considerably and lowered his heart rate. COVID and influenza swab returned positive for COVID-19. Dexamethasone 6 mg IV was administered. Patient was also found to have a urinary tract infection which was treated with cefepime. Troponin was elevated. This should be trended as the baseline is uncertain with his recent MT with very high troponin per his daughter. I discussed CODE STATUS with patient and his daughter. Risks and benefits of resuscitation efforts and intubation were reviewed. He remains full code after this discussion. ECG EKG #1: EKG Time: 20:33 Rate: 116 Rhythm: S.Tach Comment Sinus tachycardia with no ST elevation or depression. Automated read interpreted as atrial fibrillation. By my interpretation this is incorrect. There is sinus rhythm with artifact and a few PVCs. No abnormal intervals or axis deviation. EKG #2: EKG Time: 21:19 Rate: 117 Rhythm: S.Tach Comment Sinus tachycardia with no ST elevation or depression. No abnormal intervals or axis deviation. No significant change from prior. Diagnostic Imaging Diagonstic Imaging: Xray Plain Films/CT/US/NM/MRI: chest Comments NAME: MALACHI BRUNO [facility] REC#: [id number] PT STATUS: REG ER : 1950 PHYSICIAN: MOY FELDER MD ADMIT DATE: 01/17/23/ER Draft Date of Exam:01/17/23 CHEST 1 VIEW, AP/PA ONLY INDICATION: 72-year-old male presents with shortness of breath, weakness and fever, Covid positive. COMPARISONS: 01/13/2023 FINDINGS: Single view of the chest shows a chronic elevated left hemidiaphragm. There is gaseous distention of the splenic flexure of the colon as well as the distal transverse colon. This is similar to the previous study. Cardiac contour is within normal limits. There is a previous median sternotomy possibly for a CABG. There is slight prominence of the ascending segment of the thoracic aorta possibly associated with poststenotic dilatation of aortic stenosis. Lungs are otherwise clear. There is background chronic parenchymal changes. Soft tissues and bony thorax are unremarkable. IMPRESSION: 1. Previous CABG. 2. Chronically elevated left hemidiaphragm. There is also prominent gas-filled distal transverse colon and splenic flexure. 3. There are background chronic parenchymal changes but no acute consolidations seen. Dictated on workstation # [id number] Dict: 01/17/232057 Trans: 01/17/232119 [facility] [id number] Interpreted by: SCOTT PALOMO MD Departure Communication (Admissions) Time/Spoke to Admitting Phy: 21:10 Dr. Cano Time/Spoke to Consulting Phy: 22:42 Dr. Rice Impression Primary Impression: Respiratory failure Qualified Codes: J96.01 - Acute respiratory failure with hypoxia Additional Impressions: COVID-19 Urinary tract infection Qualified Codes: N39.0 - Urinary tract infection, site not specified Disposition: ADMITTED INPATIENT Condition: Stable Admissions Decision to Admit Reason: Admit from ER (General) Decision to Admit/Date: Jan 17, 2023 Time/Decision to Admit Time: 20:10 Departure-Patient Inst. Referrals: [facility]/CELESTINA (PCP/Family) Primary Care Physician Copy Copies To 1: [facility]/MOY ALANIS MD Jan 17, 2023 20:27
[2023-01-17] MEDS ORDERED: RT-Ipratropium/Albuterol NEB 3 ML VIAL INH ONE ×2 (20:30→20:45)
[2023-01-17 20:33] LABS: BASOPHILS % (AUTO) 0 % (0-10); EOSINOPHILS # (AUTO) 0.2 10^3/uL (0.0-0.3); EOSINOPHILS % (AUTO) 3 % (0-10); HEMATOCRIT 37 % (40-54); HEMOGLOBIN 12.1 g/dL (13.3-17.7); LYMPHOCYTES # (AUTO) 1.2 10^3/uL (1.0-4.0); LYMPHOCYTES % (AUTO) 23 % (12-44); MEAN CORPUSCULAR HEMOGLOBIN 33 pg (25-34); MEAN CORPUSCULAR HGB CONC 33 g/dL (32-36); MEAN CORPUSCULAR VOLUME 100 fL (80-99); MEAN PLATELET VOLUME 8.5 fL (9.0-12.2); MONOCYTES # (AUTO) 0.3 10^3/uL (0.0-1.0); MONOCYTES % (AUTO) 6 % (0-12); NEUTROPHILS # (AUTO) 3.6 10^3/uL (1.8-7.8); NEUTROPHILS % (AUTO) 68 % (42-75); PLATELET COUNT 256 10^3/uL (130-400); WHITE BLOOD COUNT 5.3 10^3/uL (4.3-11.0)
[2023-01-17 20:38] LABS: PROTHROMBIN TIME PATIENT 13.6 SEC (12.2-14.7)
[2023-01-17 20:42] VITALS: BP 176/116
[2023-01-17] MEDS ORDERED: ACETAMINOPHEN 325 MG TABLET PO ONE (20:45)
[2023-01-17 20:47] LABS: CALCIUM 8.8 MG/DL (8.5-10.1); CREATININE SERUM 0.72 MG/DL (0.60-1.30); MAGNESIUM 1.9 MG/DL (1.6-2.4); POTASSIUM 3.5 MMOL/L (3.6-5.0); TOTAL PROTEIN 7.2 GM/DL (6.4-8.2)
[2023-01-17 21:11] LABS: BACTERIA,URINE LARGE /HPF; BILIRUBIN,URINE NEGATIVE (NEGATIVE); CLARITY,URINE CLOUDY; COLOR,URINE YELLOW; GLUCOSE, URINE (UA) NEGATIVE (NEGATIVE); KETONES,URINE NEGATIVE (NEGATIVE); LEUKOCYTE ESTERASE ,URINE 1+ (NEGATIVE); NITRITE,URINE NEGATIVE (NEGATIVE); PH,URINE 5.5 (5-9); PROTEIN,URINE TRACE (NEGATIVE)
[2023-01-17] MEDS ORDERED: dexAMETHasone INJ 10 MG/ML 1 ML VIAL IV SCH (21:15)
[2023-01-17] MEDS ORDERED: CEFEPIME INJECTION 2,000 MG in NS (IVPB) 50 ML 50 ML IV ONE (21:15)
--- NOTE | 2023-01-17 21:20 | Diagnostic Imaging Report ---
INDICATION: 72-year-old male presents with shortness of breath, weakness and fever, Covid positive. COMPARISONS: 01/13/2023 FINDINGS: Single view of the chest shows a chronic elevated left hemidiaphragm. There is gaseous distention of the splenic flexure of the colon as well as the distal transverse colon. This is similar to the previous study. Cardiac contour is within normal limits. There is a previous median sternotomy possibly for a CABG. There is slight prominence of the ascending segment of the thoracic aorta possibly associated with poststenotic dilatation of aortic stenosis. Lungs are otherwise clear. There is background chronic parenchymal changes. Soft tissues and bony thorax are unremarkable. IMPRESSION: 1. Previous CABG. 2. Chronically elevated left hemidiaphragm. There is also prominent gas-filled distal transverse colon and splenic flexure. 3. There are background chronic parenchymal changes but no acute consolidations seen. Dictated by: Dictated on workstation # [id number]
[2023-01-17] MEDS ORDERED: ASPIRIN 325 MG TABLET PO ONE (22:45)
[2023-01-17] MEDS ORDERED: HYDROmorphone INJECTION 2 MG/ML VIAL IV PRN (23:30)
[2023-01-17] MEDS ORDERED: ACETAMINOPHEN 325 MG TABLET PO PRN (23:30)
[2023-01-17] MEDS ORDERED: ONDANSETRON 4 MG ORAL DISSOLVE TABLET PO PRN (23:30)
[2023-01-17] MEDS ORDERED: guaiFENesin/CODEINE 10ML UDC PO PRN (23:30)
[2023-01-17] MEDS ORDERED: NS IV 500 ML 500 ML IV PRN (23:30)
[2023-01-17] MEDS ORDERED: ONDANSETRON INJECTION 4 MG/2 ML (SDV) IV PRN (23:30)
[2023-01-17] MEDS ORDERED: ANTACID SUSPENSION 30 ML UDC PO PRN (23:30)
[2023-01-17] MEDS ORDERED: MILK OF MAGNESIA 400 MG/5 ML 30 ML UDC PO PRN (23:30)
[2023-01-17] MEDS ORDERED: diphenhydrAMINE INJ 50 MG/ML VIAL IVP PRN (23:30)
[2023-01-17] MEDS ORDERED: BISACODYL 10 MG SUPPOSITORY PR PRN (23:30)
[2023-01-17] MEDS ORDERED: oxyCODONE IMMEDIATE RELEASE 5 MG TABLET PO PRN (23:30)
[2023-01-17] MEDS ORDERED: diphenhydrAMINE 25 MG TABLET PO PRN (23:30)
[2023-01-17] MEDS ORDERED: LACTULOSE SYRUP 10GM/15ML 30ML UDC PO PRN (23:30)
[2023-01-17] MEDS ORDERED: MELATONIN 3 MG TABLET PO PRN (23:30)
[2023-01-17] MEDS ORDERED: CALCIUM CARBONATE 500 MG CHEW TABLET PO PRN (23:30)
[2023-01-17 23:46] VITALS: BP 148/116
--- NOTE | 2023-01-18 00:23 | Tele-ICU Progress Note ---
Progress Note 72M with COPD, CAD with prior CABG, recent PA, found to have inoperable disease on cath admitted for hypoxia, COVID, COPD exacerbation. He is brought in with several days of sick symptoms. Found to be COVID +. On arrival was hypoxic 83% RA, diffusely wheezy and with accessory muscle use. He was febrile and labored. Of note, he just returned from [place] last Wed where he had been hospitalized for acute PA. History is limited, paperwork not available. Per report required decom pressive colonoscopy during hospitalization. A/P: - COVID: decadron 6 mg IV daily. With BiPap demand qualifies for PO baricitinib per recent NIH guidelines. Supportive care ongoing. - COPD: secondary to above. Supportive care, bipap. Scheduled and PRN nebs. - UTI: cefepime initiated in ED. Cultures pending. - CAD: with mild troponin elevation. Likely demand in the setting of hypoxia. However, he is known to have inoperable CAD. Will trend troponins. ASA, Plavix. Cardiology consulted. Patient assessed via real time audiovisual communication system. CCT 8 min Focused Exam Lactate Level 01/17/23 20:15: Lactic Acid Level 2.22*H 01/17/23 22:14: Lactic Acid Level 1.35 Height, Weight, BMI Height: 5'9.00" Weight: 124lbs. 0oz. 56.798199tz; 19.00 BMI Method:Stated Time of Focused Exam: 22:30 Lactic Acid Level Laboratory Tests Test 01/17/23 22:14 Lactic Acid Level 1.35 MMOL/L (0.50-2.00) CATALINA MUSE MD Jan 18, 2023 00:23
[2023-01-18] MEDS: NS IV 1000 ML 1,000 ML IV SCH ×2 (00:35→15:58)
[2023-01-18] MEDS: AZITHROMYCIN INJECTION 500 MG in NS (IVPB) 250 ML 250 ML IV SCH (00:35)
[2023-01-18] MEDS: RT-Ipratropium/Albuterol NEB 3 ML VIAL INH SCH ×6 (03:19→22:04)
[2023-01-18 03:43] LABS: ABG BASE EXCESS -1.4 MMOL/L (-2.5-2.5); ABG OXYGEN SATURATION 98 % (94-100); ABG PCO2 39 MMHG (35-45); ABG PH 7.39 (7.37-7.43); ABG PO2 85 MMHG (79-93); ABG TCO2 23.9 MMOL/L (21.0-31.0)
[2023-01-18 03:44] LABS: ALLENS TEST YES-POS; INSPIRED O2 50%; PATIENT TEMP 37.8; VENTILATOR NO
[2023-01-18] MEDS: CEFEPIME INJECTION 1,000 MG in NS (IVPB) 50 ML 50 ML IV SCH ×4 (04:54→20:57)
--- NOTE | 2023-01-18 05:16 | Tele-ICU Progress Note ---
Progress Note Patient has been alert and oriented throughout the night. Now unresponsive to even deep pain. Remains on BiPap for oxygenation with significant concerns about airway protection. ABG about an hour ago unremarkable. Glucose being checked now. STAT CT head ordered. Focused Exam Lactate Level 01/17/23 20:15: Lactic Acid Level 2.22*H 01/17/23 22:14: Lactic Acid Level 1.35 Height, Weight, BMI Height: 5'9.00" Weight: 124lbs. 0oz. 56.642026hm; 19.29 BMI Method:Stated Time of Focused Exam: 22:30 CATALINA MUSE MD Jan 18, 2023 05:16
[2023-01-18 05:25] LABS: BASOPHILS % (AUTO) 0 % (0-10); EOSINOPHILS % (AUTO) 0 % (0-10); HEMATOCRIT 32 % (40-54); HEMOGLOBIN 10.5 g/dL (13.3-17.7); LYMPHOCYTES # (AUTO) 0.4 10^3/uL (1.0-4.0); LYMPHOCYTES % (AUTO) 5 % (12-44); MEAN CORPUSCULAR HEMOGLOBIN 32 pg (25-34); MEAN CORPUSCULAR HGB CONC 33 g/dL (32-36); MEAN CORPUSCULAR VOLUME 98 fL (80-99); MEAN PLATELET VOLUME 8.8 fL (9.0-12.2); MONOCYTES # (AUTO) 0.2 10^3/uL (0.0-1.0); MONOCYTES % (AUTO) 2 % (0-12); NEUTROPHILS % (AUTO) 92 % (42-75); PLATELET COUNT 220 10^3/uL (130-400); WHITE BLOOD COUNT 8.7 10^3/uL (4.3-11.0)
[2023-01-18 06:00] LABS: ALBUMIN 3.2 GM/DL (3.2-4.5); BILIRUBIN,TOTAL 0.7 MG/DL (0.1-1.0); CALCIUM 8.1 MG/DL (8.5-10.1); CREATININE SERUM 0.57 MG/DL (0.60-1.30); MAGNESIUM 1.8 MG/DL (1.6-2.4); PHOSPHORUS 2.8 MG/DL (2.3-4.7); POTASSIUM 3.1 MMOL/L (3.6-5.0); TOTAL PROTEIN 5.8 GM/DL (6.4-8.2)
[2023-01-18] MEDS: inSUlin ASPART 1 UNIT/0.01 ML (PER UNIT) SC SCH ×4 (06:09→21:20)
[2023-01-18] MEDS: MAGNESIUM 1 GM/100 ML IVPB 100 ML IV SCH ×3 (06:12→08:45)
[2023-01-18] MEDS: POTASSIUM CHLORIDE 20 MEQ TABLET PO SCH (06:12)
[2023-01-18] MEDS: POTASSIUM CL 10MEQ/50ML IVPB 50 ML IV SCH ×6 (06:12→11:36)
[2023-01-18 06:28] LABS: ANISOCYTOSIS SLIGHT; BAND NEUTROPHILS 9 %; LYMPHOCYTES % (MANUAL) 6 %; MONOCYTES % (MANUAL) 2 %; NEUTROPHILS % (MANUAL) 83 %
[2023-01-18 07:30] VITALS: BP 100/64
[2023-01-18] MEDS: ENOXAPARIN 40 MG/0.4 ML SYRINGE SC SCH (08:49)
[2023-01-18] MEDS: dexAMETHasone INJ 10 MG/ML 1 ML VIAL IV SCH (08:50)
[2023-01-18] MEDS: BARICITINIB 2 MG TABLET PO SCH (08:51)
[2023-01-18] MEDS ORDERED: ASPIRIN enteric coated 81MG TABLET PO SCH (09:00)
[2023-01-18] MEDS: DOCUSATE SODIUM 100 MG CAPSULE PO SCH ×2 (09:00→20:58)
[2023-01-18] MEDS: CLOPIDOGREL 75 MG TABLET PO SCH (09:01)
[2023-01-18] MEDS: SENNOSIDES 8.6 MG TABLET PO SCH ×2 (09:01→20:57)
--- NOTE | 2023-01-18 09:17 | Diagnostic Imaging Report ---
INDICATION: Pneumonia COMPARISON: 01/17/2023 TECHNIQUE: Single radiograph of the chest dated 01/18/2023. FINDINGS: Postsurgical changes of a CABG are again identified. Chronic elevation of the left hemidiaphragm is again noted. This is associated with left basilar scarring and/or atelectasis. The cardiac silhouette is enlarged, though this is likely accentuated by patient rotation. No significant pulmonary vascular congestion. Slightly increased right basilar interstitial opacities. No significant pleural effusion. No pneumothorax. Scattered background vascular calcifications. Scattered osseous degenerative changes without acute osseous abnormality. IMPRESSION: Developing mild right basilar atelectasis and/or pneumonitis. Chronic elevation left hemidiaphragm with associated left basilar scarring and/or atelectasis. Cardiomegaly without pulmonary vascular congestion. Dictated by: Dictated on workstation # [id number]
--- NOTE | 2023-01-18 10:15 | Tele-ICU Progress Note ---
Subjective Date Seen by a Provider: Jan 18, 2023 Time Seen by a Provider: 10:14 Subjective/Events-last exam (Tele-ICU Physician , Progress Note ) Service provided via interactive audio and video telecommunications E-CARE system to a patient admitted to ICU bed in [facility]. Patient is seen today due to persistent need of ICU care Available chart/ vitals / labs / Images reviewed Video assessment done using teleICU camera, rest of exam as per RN Discussed with RN Events overnight : Afebrile hemodynamically stable Respiratory - I/O = Drips: Pressors- no Hospital course: (01/17) 72/M- Covid Positive pna. Bipap. GCS 15. Now awake post period w not responding to sternal rub.Code fast and cth and intubation cancelled. A/P - COVID: decadron 6 mg IV daily. , PO baricitinib p. Supportive care ongoing. BIPAP PRN - COPD: Scheduled and PRN nebs. and steroids IV - UTI: cefepime initiated in ED. Cultures pending. - CAD: with mild troponin elevation. Likely demand in the setting of hypoxia. However, he is known to have inoperable CAD. Will trend troponins. ASA, Plavix. Cardiology consulted. Lines : periph , (Central Line Necessity Reviewed) Michael: + OG: Nutrition: Po Analgesia: Anxiety/ delirium VTE Prophylaxis: montserrat 40 Stress Ulcer Prophylaxis: ppi Plans in collaboration with bedside consultants and IM MDs. Discussed with RN to reach out if any questions or concerns Case and care daily discussed on multidisciplinary rounds ( RN, PharmD, It Support Technician , Respiratory Therapy, car worker helper ) A total of 10 minutes of critical care time was devoted to this patient today, required to treat and/or prevent further deterioration of critical care condit ion ( as above ) . IN ADDITION TO CCT BY DR MUSE this morning I am remotely monitoring this patient from another state. I am unable to do the bedside exam, and history/physical and pertinent information is taken from other notes in the computer and bedside staff. Sepsis Event Evaluation Height, Weight, BMI Height: 5'9.00" Weight: 124lbs. 0oz. [id number]; 19.29 BMI Method:Stated Focused Exam Lactate Level 01/17/23 20:15: Lactic Acid Level 2.22*H 01/17/23 22:14: Lactic Acid Level 1.35 Time of Focused Exam: 22:30 Exam Exam Patient acknowledged, consented, and participated in this virtual visit which was conducted using real time audio/video Vital Signs Date Time Temp Pulse Resp B/P (MAP) Pulse Ox O2 Delivery O2 Flow Rate FiO2 01/18/23 09:55 Room Air 01/18/23 09:00 85 33 110/57 (74) 95 NIV Bilevel 25.00 01/18/23 08:00 84 20 96/60 (72) 98 NIV Bilevel 25.00 01/18/23 07:30 NIV Bilevel 25.00 01/18/23 07:30 84 21 25.00 01/18/23 07:00 80 22 96/62 (73) 98 NIV Bilevel 30.00 01/18/23 06:55 81 01/18/23 06:45 84 30 95/64 (76) 100 NIV Bilevel 30.00 01/18/23 06:33 84 34 101/61 (77) 100 NIV Bilevel 30.00 01/18/23 06:32 84 96/66 (78) 93 NIV Bilevel 30.00 01/18/23 06:30 87 16 99/71 (78) 97 NIV Bilevel 30.00 01/18/23 06:15 93 20 89/61 (72) 98 NIV Bilevel 30.00 01/18/23 06:00 89 19 104/63 (77) 98 NIV Bilevel 30.00 01/18/23 05:45 87 19 106/62 (76) 99 NIV Bilevel 30.00 01/18/23 05:30 93 20 92/65 (75) 100 NIV Bilevel 30.00 01/18/23 05:15 93 29 116/65 (82) 93 NIV Bilevel 30.00 01/18/23 05:00 85 22 114/72 (87) 99 NIV Bilevel 30.00 01/18/23 04:45 86 21 112/73 (89) 99 NIV Bilevel 30.00 01/18/23 04:30 86 112/67 (84) 99 NIV Bilevel 30.00 01/18/23 04:15 95 23 113/67 (80) 100 NIV Bilevel 30.00 01/18/23 04:00 99 NIV Bilevel 30 01/18/23 04:00 90 36 112/70 (82) 99 NIV Bilevel 30.00 01/18/23 03:45 92 23 115/64 (82) 97 NIV Bilevel 30.00 01/18/23 03:30 92 24 116/68 (83) 98 NIV Bilevel 30.00 01/18/23 03:21 93 30.00 01/18/23 03:15 90 18 111/55 (77) 97 NIV Bilevel 50.00 01/18/23 03:00 95 35 115/74 (83) 100 NIV Bilevel 50.00 01/18/23 02:45 98 24 120/72 (89) 100 NIV Bilevel 50.00 01/18/23 02:30 96 27 119/69 (81) 100 NIV Bilevel 50.00 01/18/23 02:15 99 23 116/66 (79) 100 NIV Bilevel 50.00 01/18/23 02:00 99 26 117/71 (87) 100 NIV Bilevel 50.00 01/18/23 01:45 100 21 116/69 (81) 100 NIV Bilevel 50.00 01/18/23 01:30 100 24 120/70 (84) 100 NIV Bilevel 50.00 01/18/23 01:15 104 26 119/70 (83) 100 NIV Bilevel 50.00 01/18/23 01:00 105 01/18/23 01:00 105 26 127/72 (87) 100 NIV Bilevel 50.00 01/18/23 00:53 100 NIV Bilevel 50 01/18/23 00:45 101 25 131/74 (93) 100 NIV Bilevel 50.00 01/18/23 00:30 105 24 133/75 (92) 100 NIV Bilevel 50.00 01/18/23 00:15 108 20 126/71 (84) 100 NIV Bilevel 50.00 01/18/23 00:00 110 27 111/63 (80) 99 NIV Bilevel 50.00 01/17/23 23:46 38.2 129 96 50 01/17/23 23:45 114 33 109/66 (81) 99 NIV Bilevel 50.00 01/17/23 23:30 111 29 116/65 (81) 100 NIV Bilevel 50.00 01/17/23 23:30 100 NIV Bilevel 50 01/17/23 23:15 110 20 109/65 (88) 100 NIV Bilevel 50.00 01/17/23 23:05 113 01/17/23 23:03 123 124/72 (86) 89 NIV Bilevel 50.00 01/17/23 22:56 112 117/64 97 NIV Bilevel 01/17/23 22:14 114 22 50.00 01/17/23 20:42 112 31 50.00 01/17/23 20:22 Nasal Cannula 4.00 01/17/23 20:14 38.2 129 148/116 (127) 83 Room Air I & O 01/18/23 07:00 Intake Total 305 ml Output Total 1200 ml Balance -895 ml Height & Weight Height: 5'9.00" Weight: 124lbs. 0oz. 56.291258nw; 19.29 BMI Method:Stated General Appearance: WD/WN, Moderate Distress HEENT: PERRL/EOMI, Normal ENT Inspection Neck: Normal Inspection; No JVD Respiratory: Other (Respiratory distress resolved on BiPAP) Cardiovascular: No Edema, Tachycardia Extremity: Pedal Edema Neurologic/Psychiatric: Alert, No Motor/Sensory Deficits Results Lab Laboratory Tests 01/17/23 20:15 01/18/23 03:57 Assessment/Plan Assessment/Plan 1 RAYA COOK MD Jan 18, 2023 10:15
[2023-01-18] MEDS ORDERED: LANS30CA PO ×2 (11:04→16:43)
[2023-01-18] MEDS ORDERED: ERYT-108 PO (11:04)
[2023-01-18] MEDS ORDERED: GABA300C PO (11:04)
[2023-01-18] MEDS ORDERED: ATOR40TA70 PO (11:04)
[2023-01-18] MEDS ORDERED: IPRA3AMP31 IH ×2 (11:04→16:43)
[2023-01-18] MEDS ORDERED: VALS40TA9 PO (11:04)
[2023-01-18] MEDS ORDERED: LIDO1ADH66 TP (11:04)
[2023-01-18] MEDS ORDERED: DICL100G60 TP ×2 (11:04→16:43)
[2023-01-18] MEDS ORDERED: DOCU100C37 PO (11:04)
[2023-01-18] MEDS ORDERED: FINA5TAB6 PO (11:04)
[2023-01-18] MEDS ORDERED: FLUT1BLS IH (11:04)
[2023-01-18] MEDS ORDERED: TMSL.4C PO ×2 (11:04→16:43)
[2023-01-18] MEDS ORDERED: BALS60OI TP ×2 (11:04→16:43)
[2023-01-18] MEDS ORDERED: HYDR-3820 PO ×2 (11:07→16:43)
[2023-01-18] MEDS ORDERED: TRM50T PO (11:07)
[2023-01-18] MEDS ORDERED: BALSAM PERU TP SCH (11:30)
[2023-01-18] MEDS ORDERED: CASTOR OIL TP SCH (11:30)
[2023-01-18] MEDS ORDERED: CLOPIDOGREL 75 MG TABLET PO SCH (11:30)
[2023-01-18] MEDS ORDERED: RT-Ipratropium/Albuterol NEB 3 ML VIAL IH PRN (11:30)
[2023-01-18] MEDS ORDERED: ASPIRIN 81 MG CHEWABLE TABLET PO SCH (11:30)
[2023-01-18] MEDS: PANTOPRAZOLE 40 MG TABLET PO SCH ×2 (11:32→20:57)
--- NOTE | 2023-01-18 11:45 | History & Physical-Hospitalist ---
NEVILLE THOMPSON 01/18/23 1145: History of Present Illness HPI/Chief Complaint 01/18/2023: Dwight is a 72 year old male that is in the hospital due to COVID-19 with acute respiratory failure, a UTI, and a recent UT on 01/05/2023. Dwight tested positive for COVID on 01/17 and has had respiratory symptoms since 01/15. Dwight presented to ER due to changes in respiratory status. Daughter said that he was breathing okay previously when he was using his Brio/Spiriva for his COPD. Patient is currently alert and oriented x3, able to follow conversation, and breathing well. Dwight has no accessory muscle use, cyanosis, or tachypnea. Dwight was on bipap with 25L, but now is using nasal cannula at 4L with adequate saturation. Nurse noted concerns about responsiveness through the night, with an episode of transient unresponsiveness. Since this episode, patient has been r esponsive. Patient daughter notes that he appears much better and is glad to be at this hospital. Daughter is concerned about suprapubic hematoma that was present prior to admission. Dwight has had constipation with associated urinary output obstruction. Source: family (Daughter, Dacry ), RN/MD, RN notes reviewed Date Seen 01/18/23 Time Seen by a Provider: 08:55 Attending Physician [facility] PCP Admitting Physician: Mary Jo Cano DO Attending Physician: Mary Jo Cano DO Referring Physician Date of Admission Jan 17, 2023 at 22:29 Home Medications & Allergies Home Medications Reviewed patient Home Medication Reconciliation performed by pharmacy medication reconciliations fiberglass quality technician and/or nursing. Patients Allergies have been reviewed. Allergies Allergies Coded Allergies No Known Drug Allergies (Nzlecamwlg33/24/18) Past Juzaaqn-Vsbekw-Rplstr Hx Patient Social History Employed/Student: retired Tobacco Use?: No Smoking Status: Former Smoker Substance use?: No Alcohol Use?: No Alcohol Frequency: Once in a while Pt feels they are or have been: No Immunizations Up To Date Date of Influenza Vaccine: Feb 13, 2019 Tetanus Booster (TDap): Less Than 5 Years Hepatitis A: No Hepatitis B: No Seasonal Allergies Seasonal Allergies: Yes Current Status Advance Directives: No Communicates: Verbally Primary Language: Kittitian Preferred Spoken Language: Kittitian Is interpretation needed?: No Implanted or Applied Medical D: BiPAP (PRN usage) Past Medical History Surgeries: Cardiac, CABG, Coronary Stent, Orthopedic COPD Currently Using CPAP: No Currently Using BIPAP: No Coronary Artery Disease, Heart Attack, High Cholesterol, Hypertension Sexually Transmitted Disease: No HIV/AIDS: No Bladder Infection Gastroesophageal Reflux, Chronic Constipation Degenerate Disk Disease, Arthritis, Chronic Back Pain, Fractures Loss of Vision: Bilateral Hearing Impairment: Hard of Hearing Blood Disorders: Yes (POST OP ANEMIA AFTER HIP FX REPAIR--S/P TRANSFUSION) Adverse Reaction/Blood Tranf: No PMHx: CAD HTN HLD GERD ASOD Chronic back pain SurgHx: Triple bypass Nerve transposition Right hip fracture nailing Family Medical History Cardiovascular disease 19 FATHER 19 MOTHER G8 BROTHER G8 SISTER FH: breast cancer 19 MOTHER Hypertension 19 FATHER 19 MOTHER Review of Systems Constitutional: No fever (history of fever, but none since 01/17 per daughter) Respiratory: cough; No hemoptysis, No stridor; wheezing Cardiovascular: No chest pain; Hx of Intervention Gastrointestinal: constipation; No jaundice, No vomiting Genitourinary: other (jimenez catheter in place) Skin: No lesions, No pruritus; other (suprapubic bruising) Psychiatric/Neurological: Weakness Physical Exam Physical Exam Vital Signs Vital Signs - First Documented 01/17/23 01/17/23 01/17/23 01/17/23 20:14 20:22 20:42 23:30 Temp 38.2 Pulse 129 Resp 31 B/P (MAP) 148/116 (127) Pulse Ox 83 O2 Delivery Room Air O2 Flow Rate 4.00 FiO2 50 Capillary Refill : Height, Weight, BMI Height: 5'9.00" Weight: 124lbs. 0oz. 56.490629du; 19.29 BMI Method:Stated General Appearance: No Apparent Distress, Thin Eyes: Bilateral Eye Normal Inspection HEENT: No Pale Conjunctivae (L), No Pale Conjunctivae (R), No Scleral Icterus (L), No Scleral Icterus (R) Neck: No JVD Respiratory: No Accessory Muscle Use; Inspiration, Wheezing Cardiovascular: Regular Rate, Rhythm, No JVD Gastrointestinal: No Abnormal Bowel Sounds, No Distended Neurologic/Psychiatric: Alert, Oriented x3, Normal Mood/Affect Skin: Normal Color, Ecchymosis (suprapubic, deep purple color) Lymphatic: No Adenopathy Results Results/Procedures Labs Laboratory Tests 01/17/23 20:15 01/18/23 03:57 Patient resulted labs reviewed. Assessment/Plan Admission Diagnosis Admission Status: Inpatient Order (span 2 midnights) Reason for Inpatient Admission: Patient will remain for COVID monitoring and acute respiratory failure. Additonally, ABX needed for UTI. Patient also needs access to bipap if respirtory status beings to decrease or worsen. Assessment and Plan 01/18/2023: Assessment: * COVID-19 with acute respiratory failure * COPD * UTI * Constipation * Previous UT (01/05), CAD * DVT Prophylaxis * GERD Plan: For respiratory concerns, continue oxygen supplementation to avoid respiratory distress. Patient has access to BIPAP PRN if oxygenation decreases. Patient is currently on 4L via a nasal cannula stating at 96% saturation. If saturation changes or if patient complains of SOB, revert back to BIPAP. For COVID, continue to use decadron (6mg IV) as noted to prevent respiratory inflammation. C-XR noted mild R-basilar atelectasis or possible pneumonia. Due to COVID-19 diagnosis, continue supportive care. Patient is on ABX for cystitis, but monitor for potential superimposed bacterial infection of lungs since patient is high risk (nursing facility prior to admission). For the cystitis, continue with the cefepime and azithromycin, monitor for mental status change, fever, or any sign of disseminated infection. If culture comes back and antibiotic therapy isn't covering etiology of illness, antibiotic will be changed. For constipation, continue docusate and senna. Monitor for abdominal distension and discomfort. For CAD, continue with plavix and ASA. For DVT prophylaxis, continue enoxaparin. For symptoms of acid reflux, continue using pantoprazole. Diagnosis/Problems Diagnosis/Problems (1) COVID-19 Status: Acute Assessment & Plan: Decadron, BIPAP, nasal cannula (2) Respiratory failure Status: Acute Qualifiers: Chronicity: acute Respiratory failure complication: hypoxia Qualified Codes: J96.01 - Acute respiratory failure with hypoxia (3) COPD exacerbation Status: Acute Assessment & Plan: PRN nebulizer treatment (4) Urinary tract infection Status: Acute Assessment & Plan: cefepime and azithromycin Qualifiers: Urinary tract infection type: acute cystitis Hematuria presence: without hematuria Qualified Codes: N30.00 - Acute cystitis without hematuria (5) Constipation Assessment & Plan: Docusate and senna Qualifiers: Constipation type: other constipation type Qualified Codes: K59.09 - Other constipation (6) Superficial bruising of abdominal wall Status: Acute Assessment & Plan: present prior to admission, Suprapubic, daughter claims due to medication administration and previous facility (7) Carotid artery stenosis Status: Chronic Assessment & Plan: plavix and ASA (8) On deep vein thrombosis (DVT) prophylaxis Status: Acute Assessment & Plan: Enoxaparin Clinical Quality Measures Admission Status Admission Status: Inpatient Order (span 2 midnights) Reason for Inpatient Admission: BIPAP usage, COVID, active UTI DVT/VTE Prophylaxis Comfirm.Dx Mechanical not ordered: Pharmacological PPX Pneumonia: Pseudomonal Risk: COPD HCAP with risk for mulit-drug: Mcfp Resident (rehab) Urinary Catheter-Non SCIP Pts: Reason for Catheter Continuanc: Urinary Retention MARY JO CANO DO 01/19/23 0450: History of Present Illness HPI/Chief Complaint CC: COVID induced acute hypoxic respiratory failure HPI: This is a 72yoWM clinic patient of [facility] who has had a lengthy complicated course for the past few weeks which included an UT while on a [place] requiring [place] admit and significant debility requiring transfer via air ambulance to [facility] for recovery who presented to the ER with weakness and AMS and found to have resp failure from COVID. Source: family (Daughter, Darcy ), RN/MD, RN notes reviewed Exam Limitations: clinical condition Past Alsnhic-Sazmno-Oudyak Hx Patient Social History Marrital Status: single Employed/Student: retired Smoking Status: Former Smoker Past Medical History Surgeries: CABG COPD Coronary Artery Disease, High Cholesterol, Hypertension Bladder Infection Family Medical History Cardiovascular disease 19 FATHER 19 MOTHER G8 BROTHER G8 SISTER FH: breast cancer 19 MOTHER Hypertension 19 FATHER 19 MOTHER Review of Systems Constitutional: see HPI, malaise, weakness Respiratory: dyspnea on exertion Physical Exam Physical Exam General Appearance: Anxious, Chronically ill, Mild Distress, Thin Respiratory: No Accessory Muscle Use, No Respiratory Distress, Wheezing Cardiovascular: Regular Rate, Rhythm Neurologic/Psychiatric: Alert, Oriented x3, Depressed Affect Assessment/Plan Admission Diagnosis Assessment: Acute hypoxic respiratory failure COVID PNA Recent UT managed conservatively CABG hx HTN HLP GI bleed hx Plan: Monitor O2 BiPAP ICU High risk for intubation Admission Status: Inpatient Order (span 2 midnights) Reason for Inpatient Admission: COVID resp failure Supervisory-Addendum Brief Verification & Attestation Participated in pt care: history, MDM, physical Personally performed: exam, history, MDM, supervision of care Care discussed with: Medical Student Procedures: n/a Results interpretation: Verified all documentation Verification and Attestation of Medical Student E/M Service A medical student performed and documented this service in my presence. I reviewed and verified all information documented by the medical student and made modifications to such information, when appropriate. I personally performed the physical exam and medical decision making. Mary Jo Cano Jan 19, 2023,04:51 NEVILLE THOMPSON Jan 18, 2023 11:45 MARY JO CANO DO Jan 19, 2023 04:50
[2023-01-18] MEDS ORDERED: DICLOFENAC 1% GEL 100 GM TUBE TP SCH (12:00)
--- NOTE | 2023-01-18 12:56 | Consultation-Cardiology ---
HPI-Cardiology Cardiology Consultation: Date of Consultation 01/18/23 Date of Admission Attending Physician [place] Admitting Physician Admitting Physician: Mary Jo Cano DO Attending Physician: Mary Jo Cano DO Consulting Physician Marti LIZ MD HPI: Time Seen by a Provider: 14:00 Chief Complaint: Shortness of breath This is a 72-year-old gentleman who has history of CABG. According to the patient he had recent MRI with coronary angiography done in [facility] on 01/06/2023. Results are not available. COVID- positive. Presents with respiratory failure. He does have history of COPD. No chest pain on my history. Still having shortness of breath. Review of Systems-Cardiology Review of Systems Constitutional: tiredness Eyes: no symptoms reported Ears/Nose/Throat: no symptoms reported Respiratory: shortness of breath Cardiovascular: No chest pain Gastrointestinal: other (Hematoma) Genitourinary: no symptoms reported Psychiatric/Neurological: no symptoms reported Hematologic: no symptoms reported ZQP-Fjznsq-Hwbepg Hx Patient Social History Employed/Student: retired Smoking Status: Former Smoker 2nd Hand Smoke Exposure: Yes Alcohol Use?: No Pt feels they are or have been: No Immunizations Up To Date Tetanus Booster (TDap): Unknown Date of Influenza Vaccine: Feb 13, 2019 Past Medical History PMH As described under Assessment. Family Medical History Family History: Cardiovascular disease 19 FATHER 19 MOTHER G8 BROTHER G8 SISTER FH: breast cancer 19 MOTHER Hypertension 19 FATHER 19 MOTHER Allergies and Home Medications Allergies Coded Allergies: No Known Drug Allergies (Unverified , 03/08/18) Patient Home Medication List Home Medication List Reviewed: Yes Aspirin (Aspirin) 81 Mg Tab.chew, 81 MG PO DAILY, (Reported) Entered as Reported by: NANETTE CASTILLO on 03/08/18 1031 Last Action: Continued Atorvastatin Calcium (Atorvastatin Calcium) 40 Mg Tablet, 40 MG PO HS Prescribed by: Cally Melgar on 01/18/23 1104 Last Action: Continued Balsam [place] Oil (Venelex Ointment) 60 Gm Oint...g., 60 GM TP Q6H Prescribed by: Cally Melgar on 01/18/23 1104 Last Action: Converted Clopidogrel Bisulfate (Clopidogrel) 75 Mg Tablet, 75 MG PO DAILY, (Reported) Entered as Reported by: NANETTE CASTILLO on 03/08/18 1031 Last Action: Continued Cyclobenzaprine HCl (Cyclobenzaprine HCl) 10 Mg Tablet, 10 MG PO TID, (Reported) Entered as Reported by: STEPHON SUE on 05/31/19 0800 Last Action: Continued Diclofenac Sodium (Diclofenac Sodium) 1 % Gel..gram., 100 GM TP Q6H Prescribed by: Cally Melgar on 01/18/231103 Last Action: Continued Docusate Sodium (Docusate Sodium) 100 Mg Capsule, 100 MG PO BID Prescribed by: Cally Melgar on 01/18/231103 Last Action: Continued Erythromycin Base (Que-Tab) 250 Mg Tablet.dr, 250 MG PO Q8H Prescribed by: Cally Melgar on 01/18/231103 Last Action: Held Finasteride (Finasteride) 5 Mg Tablet, 5 MG PO HS Prescribed by: Cally Mlegar on 01/18/231103 Last Action: Continued Fluticasone/Vilanterol (Breo Ellipta 200-25 Mcg INH) 200 Mcg-25 Mcg/Dose Blst.w.dev, 1 EACH IH DAILY Prescribed by: Cally Melgar on 01/18/231103 Last Action: Continued Furosemide (Lasix) 40 Mg Tablet, 40 MG PO DAILY, (Reported) Entered as Reported by: EMIR DE LA FUENTE on 07/14/22 1148 Last Action: Continued Gabapentin (Neurontin) 300 Mg Capsule, 300 MG PO Q6H Prescribed by: Cally Melgar on 01/18/231103 Last Action: Continued Hydrocodone/Acetaminophen (Hydrocodone-Acetamin 10-325 mg) 10 Mg-325 Mg Tablet, 1 EACH PO Q8H Prescribed by: Cally Melgar on 01/18/231106 Last Action: Continued Ipratropium/Albuterol Sulfate (Iprat-Albut 0.5-3(2.5) mg/3 ml) 0.5 Mg-3 Mg (2.5 Mg Base)/3 Ml Ampul.neb, 3 ML IH TID PRN for SHORTNESS OF BREATH Prescribed by: Cally Melgar on 01/18/231103 Last Action: Continued Lansoprazole (Lansoprazole) 30 Mg Capsule.dr, 30 MG PO BID Prescribed by: Cally Melgar on 01/18/231103 Last Action: Converted Lidocaine (Lidocaine Pain Relief) 4 % Adh..patch, 1 EACH TP DAILY Prescribed by: Cally Melgar on 01/18/231103 Last Action: Converted Potassium Chloride (Potassium Chloride) 10 Meq Tab.er.prt, 10 MEQ PO DAILY, (Reported) Entered as Reported by: STEPHON SUE on 05/31/19 0800 Last Action: Converted Tamsulosin HCl (Flomax) 0.4 Mg Cap, 0.8 MG PO DAILY Prescribed by: Cally Melgar on 01/18/231103 Last Action: Continued Tramadol HCl (Tramadol HCl) 50 Mg Tablet, 50 MG PO Q8H PRN for PAIN-MODERATE (5- 7) Prescribed by: Cally Melgar on 01/18/231106 Last Action: Continued Valsartan (Valsartan) 40 Mg Tablet, 40 MG PO DAILY Prescribed by: Cally Melgar on 01/18/231103 Last Action: Converted Discontinued Medications Albuterol Sulfate (Albuterol Sulfate) 2.5 Mg/0.5 Ml Vial.neb, 2.5 MG INH TID, (Reported) Discontinued Reason: No Longer Taking Entered as Reported by: STEPHON SUE on 05/31/19 0800 Last Action: Discontinued Lisinopril (Lisinopril) 10 Mg Tablet, 10 MG PO DAILY, (Reported) Discontinued Reason: No Longer Taking Entered as Reported by: NANETTE CASTILLO on 03/08/18 1031 Last Action: Discontinued Pravastatin Sodium (Pravastatin Sodium) 40 Mg Tablet, 40 MG PO DAILY, (Reported) Discontinued Reason: No Longer Taking Entered as Reported by: FADIA PATTERSON on 12/03/16 5301 Last Action: Discontinued Exam Vital Signs Vital Signs Date Time Temp Pulse Resp B/P (MAP) Pulse Ox O2 Delivery O2 Flow Rate FiO2 01/18/23 16:00 87 32 95/56 (69) 91 Room Air 01/18/23 12:00 4.00 0 01/17/23 23:46 38.2 Physical Exam Constitutional: Alert Chest: Mild respiratory distress. CVS: Mild tachycardia. Neuro: Alert and oriented. Labs Laboratory Tests Test 01/17/23 20:12 01/17/23 20:15 01/17/23 20:42 01/17/23 22:14 Range/Units Influenza Type A (RT-PCR) Not Detected Not Detecte Influenza Type B (RT-PCR) Not Detected Not Detecte SARS-CoV-2 RNA (RT-PCR) Detected H Not Detecte White Blood Count 5.3 4.3-11.0 10^3/uL Red Blood Count 3.72 L 4.30-5.52 10^6/uL Hemoglobin 12.1 L 13.3-17.7 g/dL Hematocrit 37 L 40-54 % Mean Corpuscular Volume 100 H 80-99 fL Mean Corpuscular Hemoglobin 33 25-34 pg Mean Corpuscular Hemoglobin Concent 33 32-36 g/dL Red Cell Distribution Width 18.6 H 10.0-14.5 % Platelet Count 256 130-400 10^3/uL Mean Platelet Volume 8.5 L 9.0-12.2 fL Immature Granulocyte % (Auto) 0 % Neutrophils (%) (Auto) 68 42-75 % Lymphocytes (%) (Auto) 23 12-44 % Monocytes (%) (Auto) 6 0-12 % Eosinophils (%) (Auto) 3 0-10 % Basophils (%) (Auto) 0 0-10 % Neutrophils # (Auto) 3.6 1.8-7.8 10^3/uL Lymphocytes # (Auto) 1.2 1.0-4.0 10^3/uL Monocytes # (Auto) 0.3 0.0-1.0 10^3/uL Eosinophils # (Auto) 0.2 0.0-0.3 10^3/uL Basophils # (Auto) 0.0 0.0-0.1 10^3/uL Immature Granulocyte # (Auto) 0.0 0.0-0.1 10^3/uL Prothrombin Time 13.6 12.2-14.7 SEC INR Comment 1.0 0.8-1.4 Activated Partial Thromboplast Time 43 H 24-35 SEC Sodium Level 132 L 135-145 MMOL/L Potassium Level 3.5 L 3.6-5.0 MMOL/L Chloride Level 96 L 98-107 MMOL/L Carbon Dioxide Level 23 21-32 MMOL/L Anion Gap 13 5-14 MMOL/L Blood Urea Nitrogen 8 7-18 MG/DL Creatinine 0.72 0.60-1.30 MG/DL Estimat Glomerular Filtration Rate 98 BUN/Creatinine Ratio 11 Glucose Level 93 70-105 MG/DL Lactic Acid Level 2.22 *H 1.35 0.50-2.00 MMOL/L Calcium Level 8.8 8.5-10.1 MG/DL Corrected Calcium 8.8 8.5-10.1 MG/DL Magnesium Level 1.9 1.6-2.4 MG/DL Total Bilirubin 1.0 0.1-1.0 MG/DL Aspartate Amino Transf (AST/SGOT) 36 H 5-34 U/L Alanine Aminotransferase (ALT/SGPT) 30 0-55 U/L Alkaline Phosphatase 88 40-136 U/L Myoglobin 52.9 10.0-92.0 NG/ML Troponin I 0.157 H <0.028 NG/ML C-Reactive Protein High Sensitivity 9.22 H 0.00-0.50 MG/DL B-Type Natriuretic Peptide 341.2 H <100.0 PG/ML Total Protein 7.2 6.4-8.2 GM/DL Albumin 4.0 3.2-4.5 GM/DL Urine Color YELLOW Urine Clarity CLOUDY Urine pH 5.5 5-9 Urine Specific [place] 1.020 1.016-1.022 Urine Protein TRACE H NEGATIVE Urine Glucose (UA) NEGATIVE NEGATIVE Urine Ketones NEGATIVE NEGATIVE Urine Nitrite NEGATIVE NEGATIVE Urine Bilirubin NEGATIVE NEGATIVE Urine Urobilinogen 0.2 < = 1.0 MG/DL Urine Leukocyte Esterase 1+ H NEGATIVE Urine RBC (Auto) NEGATIVE NEGATIVE Urine RBC NONE /HPF Urine WBC 10-25 H /HPF Urine Squamous Epithelial Cells NONE /HPF Urine Crystals NONE /LPF Urine Bacteria LARGE H /HPF Urine Casts NONE /LPF Urine Mucus NEGATIVE /LPF Urine Culture Indicated CULTURE PENDING Test 01/18/23 03:30 01/18/23 03:57 01/18/23 05:16 01/18/23 11:30 Range/Units Blood Gas Puncture Site RR Blood Gas Patient Temperature 37.8 Arterial Blood pH 7.39 7.37-7.43 Arterial Blood Partial Pressure CO2 39 35-45 MMHG Arterial Blood Partial Pressure O2 85 79-93 MMHG Arterial Blood HCO3 23 23-27 MMOL/L Arterial Blood Total CO2 23.9 21.0-31.0 MMOL/L Arterial Blood Oxygen Saturation 98 94-100 % Arterial Blood Base Excess -1.4 -2.5-2.5 MMOL/L Nestor Test YES-POS Blood Gas Ventilator Setting NO Blood Gas Inspired Oxygen 50% White Blood Count 8.7 4.3-11.0 10^3/uL Red Blood Count 3.29 L 4.30-5.52 10^6/uL Hemoglobin 10.5 L 13.3-17.7 g/dL Hematocrit 32 L 40-54 % Mean Corpuscular Volume 98 80-99 fL Mean Corpuscular Hemoglobin 32 25-34 pg Mean Corpuscular Hemoglobin Concent 33 32-36 g/dL Red Cell Distribution Width 18.4 H 10.0-14.5 % Platelet Count 220 130-400 10^3/uL Mean Platelet Volume 8.8 L 9.0-12.2 fL Immature Granulocyte % (Auto) 0 % Neutrophils (%) (Auto) 92 H 42-75 % Lymphocytes (%) (Auto) 5 L 12-44 % Monocytes (%) (Auto) 2 0-12 % Eosinophils (%) (Auto) 0 0-10 % Basophils (%) (Auto) 0 0-10 % Neutrophils # (Auto) 8.0 H 1.8-7.8 10^3/uL Lymphocytes # (Auto) 0.4 L 1.0-4.0 10^3/uL Monocytes # (Auto) 0.2 0.0-1.0 10^3/uL Eosinophils # (Auto) 0.0 0.0-0.3 10^3/uL Basophils # (Auto) 0.0 0.0-0.1 10^3/uL Immature Granulocyte # (Auto) 0.0 0.0-0.1 10^3/uL Neutrophils % (Manual) 83 % Lymphocytes % (Manual) 6 % Monocytes % (Manual) 2 % Band Neutrophils 9 % Anisocytosis SLIGHT Macrocytosis SLIGHT Sodium Level 132 L 135-145 MMOL/L Potassium Level 3.1 L 3.6-5.0 MMOL/L Chloride Level 101 98-107 MMOL/L Carbon Dioxide Level 21 21-32 MMOL/L Anion Gap 10 5-14 MMOL/L Blood Urea Nitrogen 8 7-18 MG/DL Creatinine 0.57 L 0.60-1.30 MG/DL Estimat Glomerular Filtration Rate 105 BUN/Creatinine Ratio 14 Glucose Level 135 H 70-105 MG/DL Calcium Level 8.1 L 8.5-10.1 MG/DL Corrected Calcium 8.7 8.5-10.1 MG/DL Phosphorus Level 2.8 2.3-4.7 MG/DL Magnesium Level 1.8 1.6-2.4 MG/DL Total Bilirubin 0.7 0.1-1.0 MG/DL Aspartate Amino Transf (AST/SGOT) 27 5-34 U/L Alanine Aminotransferase (ALT/SGPT) 24 0-55 U/L Alkaline Phosphatase 67 40-136 U/L Troponin I 0.106 H <0.028 NG/ML Total Protein 5.8 L 6.4-8.2 GM/DL Albumin 3.2 3.2-4.5 GM/DL Triglycerides Level 39 <150 MG/DL Cholesterol Level 120 < 200 MG/DL LDL Cholesterol Direct 56 1-129 MG/DL VLDL Cholesterol 8 5-40 MG/DL HDL Cholesterol 48 40-60 MG/DL Glucometer 146 H 134 H 70-110 MG/DL Test 01/18/23 15:57 Range/Units Glucometer 128 H 70-110 MG/DL ECG Impression ECG Initial ECG Rhythm: S.Tach Initial ECG Intervals: Normal Initial ECG Impression: Nonspecific Changes Comment Sinus tachycardia with narrow QRS and nonspecific changes. A/P-Cardiology Assessment/Admission Diagnosis Acute respiratory failure, likely COPD exacerbation and COVID-positive. History of CAD/CABG, borderline positive troponin. Mild acute on chronic congestive heart failure. Unclear whether this is systolic or diastolic. Plan Acute respiratory failure likely COPD exacerbation and COVID-positive. Possible sepsis. Elevated lactate on admission. Defer to the primary team. History of CAD/CABG, borderline positive troponin which is getting better on serial examinations. We will try to get records of the coronary angiography done at [facility] in [place]. Coronary angiography was done on 01/06/2023. According to the daughter no PCI was done. Patient does have previous history of CABG. Continue dual antiplatelet therapy. Acute on chronic congestive heart failure. We will do an echocardiogram. Unclear whether the patient has systolic or diastolic congestive heart failure. Minimal elevated BNP. Marti LIZ MD Jan 18, 2023 12:56
[2023-01-18] MEDS: GABAPENTIN 300 MG CAPSULE PO SCH ×2 (12:58→18:10)
[2023-01-18] MEDS ORDERED: CYCLOBENZAPRINE 10 MG TABLET PO SCH (13:00)
[2023-01-18] MEDS: HYDROcodone/ACETAMINOPHEN 10/325 TABLET PO SCH ×2 (13:03→20:57)
[2023-01-18] MEDS: FLUTICASONE/VILANTEROL 200/25 MCG (7 DOSES) IH SCH (13:29)
[2023-01-18] MEDS ORDERED: POTASSIUM CHLORIDE 20 MEQ TABLET PO NR (13:30)
[2023-01-18] MEDS: RT-ALBUTEROL HFA 8.5 GM INHALER IH PRN ×2 (13:30→19:03)
--- NOTE | 2023-01-18 15:29 | Physical Therapy Evaluation ---
PT Evaluation-General Medical Diagnosis Admission Date Jan 17, 2023 at 22:29 Medical Diagnosis: COVID-19 Onset Date: Jan 17, 2023 Therapy Diagnosis Therapy Diagnosis: Gait deficit, strength deficit Height/Weight Height (Feet): 5 Height (Inches): 9.00 Weight (Pounds): 124 Weight (Ounces): 0 Precautions Precautions/Isolations: Droplet Isolation, Fall Prevention, Standard Precautions Weight Bear Status Right Lower Extremity: Right Full Weight Bearing Left Lower Extremity: Left Full Weight Bearing Referral Physician: Dr. Cano Reason for Referral: Evaluation/Treatment Medical History Pertinent Medical History: Arthritis, CAD, COPD, GERD, HTN, Smoking Reviewed History: Yes Social History Home: Single Level Current Living Status: Alone Entry Into Home: Ramp Prior Prior Level of Function SCALE: Activities may be completed with or without assistive devices. 6-Exgpitnytw-oazqdvj completes the activity by him/herself with no assistance from a helper. 5-Set-up or Clean-up Assistance-helper sets up or cleans up; patient completes activity. [place] assists only prior to or following the activity. 4-Supervision or Touching Assistance-helper provides verbal cues and/or touching/steadying and/or contact guard assistance as patient completes activity. Assistance may be provided throughout the activity or intermittently. 3-Partial/Moderate Assistance-helper does LESS THAN HALF the effort. [place] lifts, holds or supports trunk or limbs, but provides less than half the effort. 2-Substantial/Maximal Assistance-helper does MORE THAN HALF the effort. [place] lifts or holds trunk or limbs and provides more than half the effort. 1-Ffvvwruug-fcxjdy does ALL the effort. Patient does none of the effort to complete the activity. Or, the assistance of 2 or more helpers is required for the patient to complete the activity. If activity was not attempted, code reason: 7-Patient Refused. 9-Not Applicable-not attempted and the patient did not perform the activity before the current illness, exacerbation or injury. 10-Not Attempted due to Environmental Limitations-(lack of equipment, weather restraints, etc.). 88-Not Attempted due to Medical Conditions or Safety Concerns. Bed Mobility: 6 Transfers (B,C,W/C): 6 Gait: 6 Stairs: 6 Wheelchair Mobility: 6 Indoor Mobility (Ambulation): Independent Stairs: Independent Prior Devices Use: Manual wheelchair, Walker PT Evaluation-Current Subjective Patient lying supine in bed upon PT arrival, agreeable to treatment. Patient rates pain at 5/10 in low back. Objective Patient Orientation: Person, Place, Time, Situation Attachments: Oxygen, Michael Catheter, IV ROM/Strength ROM Lower Extremities WFLs BLEs all planes Strength Lower Extremities 3+/5 BLEs all planes Sensory Vision: Functional Hearing: Impaired Sensation Right Lower Extremit: Intact Sensation Left Lower Extremity: Intact Transfers Roll Left to Right (QC): 3 Sit to Lying (QC): 3 Lying to Sitting/Side of Bed(Q: 3 Sit to Stand (QC): 3 Chair/Bhs-hy-Kevgm Xfer(QC): 3 Gait Does the Patient Walk?: Yes Mode of Locomotion: Walk Anticipated Mode of Locomotion: Walk Walk 10 feet (QC): 3 Distance: 10' Gait Assistive Device: FWW Balance Sitting Static: Good Sitting Dynamic: Good Standing Static: Fair Standing Dynamic: Poor Assessment/Needs Patient became fatigued and short of breath very quickly. Requested to return to bed after 5 feet. Patient ambulates 10 feet with FWW, with Min A and verbal cues for posture, safety, progression and conservation of energy. Patient in chair post treatment with all needs met, nursing notified, call light in hand, daughter in room. Rehab Potential: Fair PT Half-Way Goals Tour Sales Representative Goals PT Half-Way Goals Time Frame: Feb 12, 2023 Roll Left & Right (QC): 6 Sit to Lying (QC): 6 Lying-Sitting on Side/Bed(QC): 6 Sit to Stand (QC): 6 Chair/Lkx-dz-Ntiby Xfer(QC): 6 Toilet Transfer (QC): 6 Does the Patient Walk: Yes Walk 10 feet (QC): 6 Walk 50ft with 2 Turns (QC): 4 Walk 150 ft (QC): 4 PT Plan Problem List Problem List: Activity Tolerance, Functional Strength, Safety, Balance, Gait, Transfer, Bed Mobility, ROM Treatment/Plan Treatment Plan: Continue Plan of Care Treatment Plan: Bed Mobility, Education, Functional Activity Gonzalez, Functional Strength, Group Therapy, Gait, Safety, Therapeutic Exercise, Transfers Treatment Duration: Feb 12, 2023 Frequency: 6 times per week Estimated Hrs Per Day: .25 hour per day Patient and/or Family Agrees t: Yes Safety Risks/Education Patient Education: Gait Training, Transfer Techniques Teaching Recipient: Patient Teaching Methods: Demonstration, Discussion Response to Teaching: Verbalize Understanding, Return Demonstration Time Time In: 1357 Time Out: 1422 DATE: Jan 18, 2023 Total Billed Treatment Time: 25 Total Billed Treatment Visit, MORA MOODY JOHN A PT Jan 18, 2023 15:29
[2023-01-18] MEDS: DICLOFENAC 1% GEL 50 GM TUBE TOP SCH ×3 (16:00→20:58)
[2023-01-18] MEDS ORDERED: LIDO1ADH78 TP (16:43)
[2023-01-18] MEDS ORDERED: LOSA25TA41 PO (16:43)
[2023-01-18] MEDS ORDERED: ASPI-1238 PO (16:43)
[2023-01-18] MEDS: TAMSULOSIN 0.4 MG (FLOMAX) CAP PO SCH (18:10)
[2023-01-18] MEDS ORDERED: DOCUSATE SODIUM 100 MG CAPSULE PO SCH (21:00)
[2023-01-18] MEDS ORDERED: NON-FORMULARY MEDICATION 1 EA EA (Lansoprazole 30 MG) PO SCH (21:00)
[2023-01-18] MEDS: FINASTERIDE 5 MG TABLET PO SCH (21:02)
[2023-01-18] MEDS: RT-ALBUTEROL HFA 8.5 GM INHALER IH SCH (22:00)
[2023-01-19] MEDS: GABAPENTIN 300 MG CAPSULE PO SCH ×4 (00:43→18:23)
[2023-01-19] MEDS: AZITHROMYCIN INJECTION 500 MG in NS (IVPB) 250 ML 250 ML IV SCH (00:43)
[2023-01-19] MEDS: RT-ALBUTEROL HFA 8.5 GM INHALER IH SCH ×6 (02:33→23:36)
[2023-01-19] MEDS: RT-Ipratropium/Albuterol NEB 3 ML VIAL INH SCH ×5 (02:33→23:36)
[2023-01-19] MEDS: CEFEPIME INJECTION 1,000 MG in NS (IVPB) 50 ML 50 ML IV SCH ×4 (02:40→21:00)
[2023-01-19] MEDS: HYDROcodone/ACETAMINOPHEN 10/325 TABLET PO SCH ×3 (02:41→21:00)
[2023-01-19] MEDS: NS IV 1000 ML 1,000 ML IV SCH ×2 (02:50→07:03)
[2023-01-19 05:44] LABS: BASOPHILS % (AUTO) 0 % (0-10); EOSINOPHILS % (AUTO) 0 % (0-10); HEMATOCRIT 32 % (40-54); HEMOGLOBIN 10.3 g/dL (13.3-17.7); LYMPHOCYTES # (AUTO) 0.7 10^3/uL (1.0-4.0); LYMPHOCYTES % (AUTO) 9 % (12-44); MEAN CORPUSCULAR HEMOGLOBIN 32 pg (25-34); MEAN CORPUSCULAR HGB CONC 32 g/dL (32-36); MEAN CORPUSCULAR VOLUME 101 fL (80-99); MEAN PLATELET VOLUME 9.1 fL (9.0-12.2); MONOCYTES # (AUTO) 0.3 10^3/uL (0.0-1.0); MONOCYTES % (AUTO) 3 % (0-12); NEUTROPHILS # (AUTO) 6.7 10^3/uL (1.8-7.8); NEUTROPHILS % (AUTO) 87 % (42-75); PLATELET COUNT 219 10^3/uL (130-400); WHITE BLOOD COUNT 7.7 10^3/uL (4.3-11.0)
[2023-01-19 06:09] LABS: ALBUMIN 3.3 GM/DL (3.2-4.5); BILIRUBIN,TOTAL 0.7 MG/DL (0.1-1.0); CALCIUM 8.3 MG/DL (8.5-10.1); CREATININE SERUM 0.57 MG/DL (0.60-1.30); MAGNESIUM 2.3 MG/DL (1.6-2.4); PHOSPHORUS 2.6 MG/DL (2.3-4.7); POTASSIUM 3.9 MMOL/L (3.6-5.0)
[2023-01-19] MEDS: POTASSIUM CL 10MEQ/50ML IVPB 50 ML IV SCH (06:13)
[2023-01-19] MEDS: MAGNESIUM 1 GM/100 ML IVPB 100 ML IV SCH (06:13)
[2023-01-19] MEDS: inSUlin ASPART 1 UNIT/0.01 ML (PER UNIT) SC SCH ×4 (06:13→20:59)
[2023-01-19] MEDS: PANTOPRAZOLE 40 MG TABLET PO SCH ×3 (06:18→14:26)
[2023-01-19] MEDS: CYCLOBENZAPRINE 10 MG TABLET PO SCH ×3 (06:18→14:26)
[2023-01-19] MEDS: POTASSIUM CHLORIDE 20 MEQ TABLET PO SCH (06:19)
[2023-01-19] MEDS: FLUTICASONE/VILANTEROL 200/25 MCG (7 DOSES) IH SCH (07:23)
[2023-01-19] MEDS ORDERED: POTASSIUM CHLORIDE 20 MEQ TABLET PO ONE (08:15)
--- NOTE | 2023-01-19 08:59 | Diagnostic Imaging Report ---
EXAM: CHEST 1 VIEW, AP/PA ONLY. INDICATION: Pneumonia. COMPARISON: 01/18/2023. FINDINGS: Sternotomy with CABG. Marked elevation of the left hemidiaphragm. Cardiomegaly with mild pulmonary vascular congestion. There remains some scant atelectasis or infiltrate in the right lung base. Stable atelectasis or scarring in the left lung base. IMPRESSION: Stable exam including cardiomegaly with pulmonary vascular congestion and scant atelectasis or infiltrate in the right lung base. Elevation of the left hemidiaphragm results in scarring or atelectasis in the left lung base. Dictated by: Dictated on workstation # [id number]
[2023-01-19] MEDS ORDERED: VALSARTAN 80 MG (DIOVAN) TAB PO SCH (09:00)
[2023-01-19] MEDS: DOCUSATE SODIUM 100 MG CAPSULE PO SCH ×2 (09:04→21:01)
[2023-01-19] MEDS: BARICITINIB 2 MG TABLET PO SCH (09:04)
[2023-01-19] MEDS: ASPIRIN 81 MG CHEWABLE TABLET PO SCH (09:04)
[2023-01-19] MEDS: CLOPIDOGREL 75 MG TABLET PO SCH (09:05)
[2023-01-19] MEDS: SENNOSIDES 8.6 MG TABLET PO SCH ×2 (09:05→21:01)
[2023-01-19] MEDS: ENOXAPARIN 40 MG/0.4 ML SYRINGE SC SCH (09:05)
[2023-01-19] MEDS: FUROSEMIDE 40 MG TABLET PO SCH (09:06)
[2023-01-19] MEDS: LIDOCAINE 4% PATCH TOP SCH (09:07)
[2023-01-19] MEDS: POTASSIUM CHLORIDE 10 MEQ TABLET PO SCH (09:10)
[2023-01-19] MEDS: dexAMETHasone INJ 10 MG/ML 1 ML VIAL IV SCH (09:11)
[2023-01-19] MEDS: LOSARTAN 25 MG TABLET PO SCH (09:13)
[2023-01-19] MEDS: DICLOFENAC 1% GEL 50 GM TUBE TOP SCH ×4 (09:25→21:01)
--- NOTE | 2023-01-19 10:55 | Physical Therapy Daily Note ---
PT Daily Note-Current Subjective Pt reports he is feeling a little better. Requests assist to commode. Pain Section J - Health Conditions 1. Rarely or not at all 2. Occasionally 3. Frequently 4. Almost constantly 8. Unable to answer Pain Effect on Sleep: 2 Pain Interference with Therapy: 2 Pain Interference w/Day-to-Day: 2 Transfers SCALE: Activities may be completed with or without assistive devices. 2-Ywtojbfkyl-yaxkdxe completes the activity by him/herself with no assistance from a helper. 5-Set-up or Clean-up Assistance-helper sets up or cleans up; patient completes activity. [place] assists only prior to or following the activity. 4-Supervision or Touching Assistance-helper provides verbal cues and/or touching/steadying and/or contact guard assistance as patient completes activity. Assistance may be provided throughout the activity or intermittently. 3-Partial/Moderate Assistance-helper does LESS THAN HALF the effort. [place] lifts, holds or supports trunk or limbs, but provides less than half the effort. 2-Substantial/Maximal Assistance-helper does MORE THAN HALF the effort. [place] lifts or holds trunk or limbs and provides more than half the effort. 6-Mshiznaon-ncwkjv does ALL the effort. Patient does none of the effort to complete the activity. Or, the assistance of 2 or more helpers is required for the patient to complete the activity. If activity was not attempted, code reason: 7-Patient Refused. 9-Not Applicable-not attempted and the patient did not perform the activity before the current illness, exacerbation or injury. 10-Not Attempted due to Environmental Limitations-(lack of equipment, weather restraints, etc.). 88-Not Attempted due to Medical Conditions or Safety Concerns. Roll Left & Right (QC): 4 Sit to Lying (QC): 4 Lying to Sitting/Side of Bed(Q: 4 Sit to Stand (QC): 4 Chair/Nrx-jd-Wiruq Xfer(QC): 4 Toilet Transfer (QC): 4 Assist to bedside and then to commode with Min Assist. Stood for cleanup post BM holding bedside railing. No loss of balance. Weight Bearing Right Lower Extremity: Right Full Weight Bearing Left Lower Extremity: Left Full Weight Bearing Gait Training Gait Assistive Device: FWW Ambulate 20ft with FWW and (L) prosthetic limb. CGA for stability. Pt SOB post treatment, sats 92% on room air. Assessment Current Status: Good Progress Improved endurance for standin functional tasks and ambulation this session. SOB is the limiting factor for functional activity. PT Glass Bulb Machine Adjuster Goals Glass Bulb Machine Adjuster Goals PT Glass Bulb Machine Adjuster Goals Time Frame: Feb 12, 2023 Roll Left & Right (QC): 6 Sit to Lying (QC): 6 Lying-Sitting on Side/Bed(QC): 6 Sit to Stand (QC): 6 Chair/Wjc-qs-Nfwgq Xfer(QC): 6 Toilet Transfer (QC): 6 Does the Patient Walk: Yes Walk 10 feet (QC): 6 Walk 50ft with 2 Turns (QC): 4 Walk 150 ft (QC): 4 PT Plan Treatment/Plan Treatment Plan: Continue Plan of Care Treatment Plan: Bed Mobility, Education, Functional Activity Gonzalez, Functional Strength, Group Therapy, Gait, Safety, Therapeutic Exercise, Transfers Treatment Duration: Feb 12, 2023 Frequency: 6 times per week Estimated Hrs Per Day: .25 hour per day Patient and/or Family Agrees t: Yes Time Time In: 1000 Time Out: 1030 DATE: Jan 19, 2023 Total Billed Treatment Time: 30 Total Billed Treatment Visit, FA 15 min, Gt 15 min DIANE BRAND PT Jan 19, 2023 10:55
[2023-01-19] MEDS: HYPOCHLOROUS ACID/NaCl WOUND SOLN 250 ML IR PRN (12:06)
--- NOTE | 2023-01-19 12:51 | Wound Care Assessment ---
Wound Care Assessment Date Seen by Provider: Jan 19, 2023 Time Seen by Provider: 12:43 Chief Complaint 1. R. 2 toe ulcer 2. L. stump ulcer HPI This pleasant 72 year old gentleman is well known to my outpatient practice. He was last seen in my office on 12-20-22. He then went on vacation and had a cardiac event while on vacation and spent 16 days admitted to a facility in [place] before he was transferred to nursing facility locally. He was admitted this week following respiratory distress from COVID 19. He is in the ICU today but is now on room air. Dwight has a profound history of arterial disease (both cardiac and peripheral). He has L. BKA from PAD in past and a chronic ulcer to his right 2 toe similarly. He now has a new ulceration to his left stump that was caused (per patient) by his stump sleeve in [place]. On exam today, his toe ulceration appears similar to our last visit in size but the viability of his bone is worsened. The bone appears dry and brown in color. His daughter noted that they have had little input into his wound care throughout this ordeal. Multiple providers felt this was eschar (easy mistake to make based on color of bone). Unfortunately, this led them to paint the bone with drying antiseptic agents. We will resume moist dressings but may need to revisit imaging in the future. The stump ulcer appears moist and shallow. Dwight had been following with Dr. Elizondo (vascular surgery in [place]) but he has not followed up since his vacation cardiac event. I did speak to Dr. Elizondo several weeks ago and he was optimistic about revascularization. Once he is discharged, this will be important to revisit. I remain pessimistic about healing this toe. Past Medical History: Admits Heart Disease, Admits Peripheral Artery Disease Smoking Status: Former Smoker Recreational Drug Use: No Alcohol Use: Denies Use Review of Systems Neurological: Weakness Exam Vital Signs Date Time Temp Pulse Resp B/P (MAP) Pulse Ox O2 Delivery O2 Flow Rate FiO2 01/19/23 12:00 93 42 97/74 (82) 100 Room Air 01/18/23 19:55 36.2 01/18/23 18:55 1.00 01/18/23 16:00 0 Capillary Refill : General Appearance: no apparent distress, thin HEENT: other (normal hearing) Neck: full range of motion Respiratory: no respiratory distress, no accessory muscle use Extremities: no pedal edema, other (L. BKA) Neurologic/Psychiatric: alert, normal mood/affect, oriented x 3 Skin: normal color, warm/dry Skin Problem Location: lower extremities Wound assessment: 1. R. 2 toe: 0.5x1x0.1cm. The epithelialization is medium. There is no tunneling or undermining. Drainage is none. Granulation is none. The bone is exposed and non-viable. Margins flat. Acquired hammer toe deformity 2. L. stump: 3x4x0.1cm. The epithelialization is none. There is no tunneling or underminig. Drainage is large and serosanguinous. Granulation is small and pink. Necrotic is large and slough. Margins are flat Results Laboratory Tests 01/18/23 15:57: Glucometer 128H 01/18/23 21:12: Glucometer 130H 01/19/23 04:18: White Blood Count 7.7, Red Blood Count 3.18L, Hemoglobin 10.3L, Hematocrit 32L, Mean Corpuscular Volume 101H, Mean Corpuscular Hemoglobin 32, Mean Corpuscular Hemoglobin Concent 32, Red Cell Distribution Width 18.8H, Platelet Count 219, Mean Platelet Volume 9.1, Immature Granulocyte % (Auto) 1, Neutrophils (%) (Auto) 87H, Lymphocytes (%) (Auto) 9L, Monocytes (%) (Auto) 3, Eosinophils (%) (Auto) 0, Basophils (%) (Auto) 0, Neutrophils # (Auto) 6.7, Lymphocytes # (Auto) 0.7L, Monocytes # (Auto) 0.3, Eosinophils # (Auto) 0.0, Basophils # (Auto) 0.0, Immature Granulocyte # (Auto) 0.1, Sodium Level 136, Potassium Level 3.9, Chloride Level 107, Carbon Dioxide Level 20L, Anion Gap 9, Blood Urea Nitrogen 9, Creatinine 0.57L, Estimat Glomerular Filtration Rate 105, BUN/Creatinine Ratio 16, Glucose Level 110H, Calcium Level 8.3L, Corrected Calcium 8.9, Phosphorus Level 2.6, Magnesium Level 2.3, Total Bilirubin 0.7, Aspartate Amino Transf (AST/SGOT) 24, Alanine Aminotransferase (ALT/SGPT) 23, Alkaline Phos phatase 67, Total Protein 6.0L, Albumin 3.3 01/19/23 04:50: Venous Blood pH 7.35, Venous Blood Partial Pressure CO2 44, Venous Blood HCO3 24 01/19/23 10:48: Glucometer 102 Microbiology 01/17/23 Blood Culture - Preliminary, Resulted No growth 01/17/23 Urine Culture - Preliminary, Resulted Gram Negative Bacillus 1 01/17/23 MRSA Screen - Final, Complete MRSA not isolated Microbiology 01/17/23 Blood Culture - Preliminary, Resulted No growth 01/17/23 Urine Culture - Preliminary, Resulted Gram Negative Bacillus 1 01/17/23 Blood Culture - Preliminary, Resulted No growth Assessment/Plan/Dx Assessment: 1. Non-pressure ulcers to R. 2 toe and L. stump 2. Severe PAD bilaterally with h/o L. BKA 3. CAD 4. Hammer toe deformity 5. COPD 6. COVID-19 infection Plan: 1. Cleanse daily with Vashe. Apply xeroform to exposed bone and secure with gauze and tape. Change daily. Silver alginate to stump wound with BFD daily. 2. Will need F/U as outpatient with Dr. Elizondo in [place] 3. Defer to primary team. Recent admit in [place] for cardiac event 4. No changes currently 5. Defer to primary team 6. Defer to primary team ABDI ALEXANDRE MD Jan 19, 2023 12:51
--- NOTE | 2023-01-19 15:34 | Progress Note - Hospitalist ---
NEVILLE THOMPSON 01/19/23 1533: Subjective HPI/CC On Admission Date Seen by Provider: Jan 19, 2023 Time Seen by Provider: 10:00 CC: COVID induced acute hypoxic respiratory failure HPI: This is a 72yoWM clinic patient of [facility] who has had a lengthy complicated course for the past few weeks which included an [place] while on a cruise requiring [place] admit and significant debility requiring transfer via air ambulance to [facility] for recovery who presented to the ER with weakness and AMS and found to have resp failure from COVID. Subjective/Events-last exam Dwight is a 72 year old male hospital day 3 due to acture hypoxic respiratory failure due to COVID. Since last exam, patients daughter notes that he did not sleep well. Dwight says that he could only sleep a little bit. He did not use the bipap or supplemental oxygen over the night, but noted that he would desire to use it if he was going to sleep. Patient says that he is feeling better. He said that ambulating with PT was difficult and that he wants to keep working at building stamina. He wasn't sure if he was unable to walk more than 5 feet due to COVID or his recent [place] or if it is a combination of the two factors. He also complained about his R-ankle being swollen. Daughter notes that she thinks that he looks a lot better. Dwight was alert and oriented x4 and was able to keep conversation. He doesn't have a persistent cough. He denies fever or chills. Dwight thinks that the medications are making him feel better. Walking made symptoms worse. With UTI, Dwight has no changes. No changes in the suprapubic hematoma. Dwight appears to have symptoms of CHF, as noted by report by Dr. Rice and they plan to perform an echocardiogram. Review of Systems General: No Chills, No Night Sweats; Fatigue (with ambulation), Appetite HEENT: No Visual Changes, No Ear Pain, No Sore Throat Pulmonary: Dyspnea, Cough Cardiovascular: Edema (mild); No: Chest Pain, Palpitations Gastrointestinal: Constipation; No: Nausea, Vomiting, Abdominal Pain, Diarrhea Genitourinary: Other (Catheter in place) Musculoskeletal: foot pain (swollen r-ankle) Neurological: No: Weakness, Numbness, Incoordination, Change in speech, Confusion Focused Exam Sepsis Stage: Ruled Out Reason for ruling out sepsis: negative blood cultures, no signs of sepsis Lactate Level 01/17/23 20:15: Lactic Acid Level 2.22*H 01/17/23 22:14: Lactic Acid Level 1.35 Time of Focused Exam: 10:10 Respiratory: Chest Non Tender, No Accessory Muscle Use, Crackles, Decreased Breath Sounds (left lower lobe region), Expiration; No Stridor; Wheezing Cardiovascular: Regular Rate, Rhythm, Normal Peripheral Pulses; No Bradycardia, No Diastolic Murmur, No Systolic Murmur, No Extra Beats, No Irregularly Irregular, No JVD, No Tachycardia Peripheral Pulses: 2+ Dorsalis Pedis (R), 2+ Left Dors-Pedis (L), 2+ Radial Pulses (R) Skin: normal color, warm/dry Within 3hrs of presentation: Admin fluids, Admin ABX, Blood cultures prior to ABX's, Focus exam, Lactate level Objective Exam Vital Signs Vital Signs Date Time Temp Pulse Resp B/P (MAP) Pulse Ox O2 Delivery O2 Flow Rate FiO2 01/19/23 14:46 100 Room Air 01/19/23 13:27 97 01/19/23 13:00 25 111/90 (97) 01/18/23 19:55 36.2 01/18/23 18:55 1.00 01/18/23 16:00 0 Capillary Refill : General Appearance: No Apparent Distress, WD/WN, Thin HEENT: PERRL/EOMI; No Pale Conjunctivae (L), No Pale Conjunctivae (R), No Scleral Icterus (L), No Scleral Icterus (R) Neck: Full Range of Motion, Normal Inspection, Supple; No Carotid Bruit Respiratory: Chest Non Tender, Crackles, Decreased Breath Sounds, Expiration; No Respiratory Distress, No Stridor; Wheezing Cardiovascular: Regular Rate, Rhythm, No Gallop, No JVD, No Murmur, Normal Peripheral Pulses, JVD Gastrointestinal: Normal Bowel Sounds, No Organomegaly, No Pulsatile Mass, Non Tender, Soft Rectal: Deferred Back: Normal Inspection, No Vertebral Tenderness Extremity: Normal Capillary Refill, Normal Inspection, No Calf Tenderness, Pedal Edema, Swelling (R-foot) Neurologic/Psychiatric: Alert, Oriented x3, No Motor/Sensory Deficits, Normal 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 Imaging: Reviewed Imaging Films, Reviewed Imaging Report (noted L-hemidiaphram changes) Assessment/Plan Assessment and Plan Assess & Plan/Chief Complaint 01/18/2023: Assessment: * COVID-19 with acute respiratory failure * COPD * UTI * Constipation * Previous [place] (01/05), CAD * DVT Prophylaxis * GERD Plan: For respiratory concerns, continue oxygen supplementation to avoid respiratory distress. Patient has access to BIPAP PRN if oxygenation decreases. Patient is currently on 4L via a nasal cannula stating at 96% saturation. If saturation changes or if patient complains of SOB, revert back to BIPAP. For COVID, continue to use decadron (6mg IV) as noted to prevent respiratory inflammation. C-XR noted mild R-basilar atelectasis or possible pneumonia. Due to COVID-19 diagnosis, continue supportive care. Patient is on ABX for cystitis, but monitor for potential superimposed bacterial infection of lungs since patient is high risk (nursing facility prior to admission). For the cystitis, continue with the cefepime and azithromycin, monitor for mental status change, fever, or any sign of disseminated infection. If culture comes back and antibiotic therapy isn't covering etiology of illness, antibiotic will be changed. For constipation, continue docusate and senna. Monitor for abdominal distension and discomfort. For CAD, continue with plavix and ASA. For DVT prophylaxis, continue enoxaparin. For symptoms of acid reflux, continue using pantoprazole. \ [email or web address] 01/19/2023: Assessment: * same as 01/18 * Acute on chronic CHF per Dr. Rice Plan: Continue to have access to bipap and nasal cannula if needed. Dwight is on room air and has 100% saturation. For sleeping, supplement with O2 or monitor closely spO2. Dwight was not able to sleep last night, so we want to make sure that this wasn't because he wasn't able to comfortably fall asleep due to respiratory concerns. Offer nasal cannula or bipap for sleeping. Continue to decadron. Continue ABX for UTI that is likely due to E. Coli. Monitor for potential bacterial superimposed infection over the COVID infection that would result in bacterial pneumonia. With the increased expiratory wheezes, ensure this doesn't result in pneumonia. Schedule echocardiogram to check for changes in heart func tion. Acute on chronic CHF increases risk for fluid overload. Consider decreasing IV fluids since patient is eating and drinking well. Monitor for any changes in presentation. Continue supportive medications such as pantoprazole and docusateTima [id number] Diagnosis/Problems Diagnosis/Problems (1) COVID-19 Status: Acute Assessment & Plan: Decadron, BIPAP, nasal cannula (2) Respiratory failure Status: Acute Qualifiers: Qualified Codes: J96.01 - Acute respiratory failure with hypoxia (3) COPD exacerbation Status: Acute Assessment & Plan: PRN nebulizer treatment (4) Urinary tract infection Status: Acute Assessment & Plan: cefepime and azithromycin Qualifiers: Qualified Codes: N30.00 - Acute cystitis without hematuria (5) Acute on chronic congestive heart failure Status: Acute Assessment & Plan: echocardiogram per Dr. Rice to discern ejection fraction and systolic or diastolic etiology, management with cardiology. Qualifiers: Qualified Codes: I50.9 - Heart failure, unspecified (6) Constipation Assessment & Plan: Docusate and senna Qualifiers: Qualified Codes: K59.09 - Other constipation (7) Superficial bruising of abdominal wall Status: Acute Assessment & Plan: present prior to admission, Suprapubic, daughter claims due to medication administration and previous facility (8) Carotid artery stenosis Status: Chronic Assessment & Plan: plavix and ASA (9) On deep vein thrombosis (DVT) prophylaxis Status: Acute Assessment & Plan: Enoxaparin Clinical Quality Measures Admission Status Admission Dx Acute Respiratory Failure due to COVID Admission Status: Inpatient Order (span 2 midnights) Reason for Inpatient Admission: COVID, oxygen supplementation, continued IV ABX DVT/VTE Prophylaxis Comfirm.Dx Mechanical not ordered: Pharmacological PPX Pneumonia: Pseudomonal Risk: COPD HCAP with risk for mulit-drug: Senior Living Resident (rehab) Urinary Catheter-Non SCIP Pts: Reason for Catheter Continuanc: Urinary Retention MARY JO RAY DO 01/19/23 2019: Subjective Subjective/Events-last exam Patient doing a little better Weaned off oxygen but still a bit tense when breathing Remains in ICU BiPAP when he sleeping Review of Systems General: Fatigue (with ambulation) Pulmonary: Dyspnea Objective Exam General Appearance: Anxious, Chronically ill, Mild Distress Respiratory: No Respiratory Distress, Accessory Muscle Use, Decreased Breath Sounds Cardiovascular: Regular Rate, Rhythm Neurologic/Psychiatric: Alert, Oriented x3 Assessment/Plan Assessment and Plan Assess & Plan/Chief Complaint Assessment: COVID-pneumonia CHF CAD Plan: Supportive care Monitor closely Supervisory-Addendum Brief Verification & Attestation Participated in pt care: history, MDM, physical Personally performed: exam, history, MDM, supervision of care Care discussed with: Medical Student Procedures: n/a Results interpretation: Verified all documentation Verification and Attestation of Medical Student E/M Service A medical student performed and documented this service in my presence. I reviewed and verified all information documented by the medical student and made modifications to such information, when appropriate. I personally performed the physical exam and medical decision making. Mary Jo Ray Jan 19, 2023,20:18 NEVILLE THOMPSON Jan 19, 2023 15:33 MARY JO RAY DO Jan 19, 2023 20:19
--- NOTE | 2023-01-19 15:39 | Cardiology Progress Note ---
Cardiology SOAP Progress Note Subjective: Improved shortness of breath. Objective: I&O/Vital Signs 01/19/23 01/19/23 01/19/23 01/19/23 03:57 04:00 05:00 06:00 Pulse 82 80 81 Resp 37 14 16 B/P (MAP) 99/70 (80) 105/74 (84) 111/78 (89) Pulse Ox 99 100 100 100 O2 Delivery Room Air Room Air Room Air Room Air 01/19/23 01/19/23 01/19/23 01/19/23 07:00 07:00 07:25 07:25 Pulse 79 78 Resp 27 B/P (MAP) 103/74 (84) Pulse Ox 100 100 100 O2 Delivery Room Air Room Air Room Air 01/19/23 01/19/23 01/19/23 01/19/23 08:00 08:00 09:00 10:00 Pulse 80 86 107 Resp 23 13 32 B/P (MAP) 130/115 (120) 109/74 (86) 119/84 (96) Pulse Ox 99 100 100 100 O2 Delivery Room Air Room Air Room Air Room Air 01/19/23 01/19/23 01/19/23 01/19/23 10:22 11:00 12:00 12:00 Pulse 99 93 Resp 22 42 B/P (MAP) 91/64 (73) 97/74 (82) Pulse Ox 100 93 99 100 O2 Delivery Room Air Room Air Room Air Room Air 01/19/23 01/19/23 01/19/23 13:00 13:27 14:46 Pulse 90 97 Resp 25 B/P (MAP) 111/90 (97) Pulse Ox 100 100 O2 Delivery Room Air Room Air 01/19/23 00:00 Intake Total 2845 ml Output Total 2125 ml Balance 720 ml Weight (Pounds): 124 Weight (Ounces): 0 Weight (Calculated Kilograms): [id number] Constitutional: AAO x 3 Respiratory: other (No significant respiratory distress.) Cardiovascular: regular rate-rhythm Neurologic/Psychiatric: alert, normal mood/affect, oriented x 3 Skin: normal color Results/Procedures: Labs Laboratory Tests 01/18/23 15:57: Glucometer 128H 01/18/23 21:12: Glucometer 130H 01/19/23 04:18: White Blood Count 7.7, Red Blood Count 3.18L, Hemoglobin 10.3L, Hematocrit 32L, Mean Corpuscular Volume 101H, Mean Corpuscular Hemoglobin 32, Mean Corpuscular Hemoglobin Concent 32, Red Cell Distribution Width 18.8H, Platelet Count 219, Mean Platelet Volume 9.1, Immature Granulocyte % (Auto) 1, Neutrophils (%) (Auto) 87H, Lymphocytes (%) (Auto) 9L, Monocytes (%) (Auto) 3, Eosinophils (%) (Auto) 0, Basophils (%) (Auto) 0, Neutrophils # (Auto) 6.7, Lymphocytes # (Auto) 0.7L, Monocytes # (Auto) 0.3, Eosinophils # (Auto) 0.0, Basophils # (Auto) 0.0, Immature Granulocyte # (Auto) 0.1, Sodium Level 136, Potassium Level 3.9, Chloride Level 107, Carbon Dioxide Level 20L, Anion Gap 9, Blood Urea Nitrogen 9, Creatinine 0.57L, Estimat Glomerular Filtration Rate 105, BUN/Creatinine Ratio 16, Glucose Level 110H, Calcium Level 8.3L, Corrected Calcium 8.9, Phosphorus Level 2.6, Magnesium Level 2.3, Total Bilirubin 0.7, Aspartate Amino Transf (AST/SGOT) 24, Alanine Aminotransferase (ALT/SGPT) 23, Alkaline Phosphatase 67, Total Protein 6.0L, Albumin 3.3 01/19/23 04:50: Venous Blood pH 7.35, Venous Blood Partial Pressure CO2 44, Venous Blood HCO3 24 01/19/23 10:48: Glucometer 102 Microbiology 01/17/23 Blood Culture - Preliminary, Resulted No growth 01/17/23 Urine Culture - Preliminary, Resulted Gram Negative Bacillus 1 01/17/23 MRSA Screen - Final, Complete MRSA not isolated A/P: Assessment/Dx: Acute respiratory failure, likely COPD exacerbation and COVID-positive. History of CAD/CABG, borderline positive troponin. Mild acute on chronic congestive heart failure. Unclear whether this is systolic or diastolic. Plan: Acute respiratory failure likely COPD exacerbation and COVID-positive. Possible sepsis. Elevated lactate on admission. Defer to the primary team. History of CAD/CABG, borderline positive troponin which is getting better on serial examinations. We will try to get records of the coronary angiography done at [facility] in [place]. Coronary angiography was done on 01/06/2023. According to the daughter no PCI was done. Patient does have previous history of CABG. Continue dual antiplatelet therapy. Acute on chronic congestive heart failure. We will do an echocardiogram. Unclear whether the patient has systolic or diastolic congestive heart failure. Minimal elevated BNP. Focused Exam Lactate Level 01/17/23 20:15: Lactic Acid Level 2.22*H 01/17/23 22:14: Lactic Acid Level 1.35 Time of Focused Exam: 22:30 Clinical Quality Measures Pneumonia: Pseudomonal Risk: COPD HCAP with risk for mulit-drug: Custodial Resident (rehab) Urinary Catheter-Non SCIP Pts: Reason for Catheter Continuanc: Urinary Retention Marti LIZ MD Jan 19, 2023 15:39
[2023-01-19] MEDS: TAMSULOSIN 0.4 MG (FLOMAX) CAP PO SCH (18:24)
[2023-01-19] MEDS: AZITHROMYCIN 250 MG TABLET PO SCH (21:00)
[2023-01-19] MEDS: FINASTERIDE 5 MG TABLET PO SCH (21:01)
[2023-01-20] MEDS: GABAPENTIN 300 MG CAPSULE PO SCH ×5 (00:12→23:10)
[2023-01-20] MEDS: RT-ALBUTEROL HFA 8.5 GM INHALER IH SCH ×2 (02:58→06:34)
[2023-01-20] MEDS: RT-Ipratropium/Albuterol NEB 3 ML VIAL INH SCH (02:58)
[2023-01-20] MEDS: HYDROcodone/ACETAMINOPHEN 10/325 TABLET PO SCH ×3 (03:30→20:04)
[2023-01-20] MEDS: CEFEPIME INJECTION 1,000 MG in NS (IVPB) 50 ML 50 ML IV SCH ×3 (03:30→15:38)
[2023-01-20 04:44] LABS: BASOPHILS % (AUTO) 0 % (0-10); EOSINOPHILS % (AUTO) 0 % (0-10); HEMATOCRIT 31 % (40-54); HEMOGLOBIN 9.9 g/dL (13.3-17.7); LYMPHOCYTES % (AUTO) 17 % (12-44); MEAN CORPUSCULAR HEMOGLOBIN 32 pg (25-34); MEAN CORPUSCULAR HGB CONC 32 g/dL (32-36); MEAN CORPUSCULAR VOLUME 100 fL (80-99); MEAN PLATELET VOLUME 9.3 fL (9.0-12.2); MONOCYTES # (AUTO) 0.4 10^3/uL (0.0-1.0); MONOCYTES % (AUTO) 7 % (0-12); NEUTROPHILS # (AUTO) 4.5 10^3/uL (1.8-7.8); NEUTROPHILS % (AUTO) 76 % (42-75); PLATELET COUNT 237 10^3/uL (130-400); WHITE BLOOD COUNT 5.9 10^3/uL (4.3-11.0)
[2023-01-20 05:03] LABS: BILIRUBIN,TOTAL 0.5 MG/DL (0.1-1.0); CALCIUM 8.2 MG/DL (8.5-10.1); CREATININE SERUM 0.6 MG/DL (0.60-1.30); MAGNESIUM 1.9 MG/DL (1.6-2.4); PHOSPHORUS 2.7 MG/DL (2.3-4.7); POTASSIUM 3.9 MMOL/L (3.6-5.0); TOTAL PROTEIN 5.3 GM/DL (6.4-8.2)
[2023-01-20] MEDS: POTASSIUM CL 10MEQ/50ML IVPB 50 ML IV SCH (05:27)
[2023-01-20] MEDS: POTASSIUM CHLORIDE 20 MEQ TABLET PO SCH (05:28)
[2023-01-20] MEDS: inSUlin ASPART 1 UNIT/0.01 ML (PER UNIT) SC SCH ×4 (05:28→21:20)
[2023-01-20] MEDS: MAGNESIUM 1 GM/100 ML IVPB 100 ML IV SCH ×3 (05:28→08:33)
[2023-01-20] MEDS ORDERED: POTASSIUM CHLORIDE 20 MEQ TABLET PO ONE (05:30)
[2023-01-20] MEDS: CYCLOBENZAPRINE 10 MG TABLET PO SCH ×3 (06:13→14:34)
[2023-01-20] MEDS: PANTOPRAZOLE 40 MG TABLET PO SCH ×2 (06:14→14:34)
[2023-01-20] MEDS: FLUTICASONE/VILANTEROL 200/25 MCG (7 DOSES) IH SCH (06:33)
[2023-01-20] MEDS: TIOTROPIUM INH 4 GM (SPIRIVA Respimat) IH SCH (06:34)
[2023-01-20 06:49] VITALS: BP 104/71
[2023-01-20 06:49] LABS: ABG BASE EXCESS -2.4 MMOL/L (-2.5-2.5); ABG OXYGEN SATURATION 99 % (94-100); ABG PCO2 29 MMHG (35-45); ABG PH 7.46 (7.37-7.43); ABG PO2 85 MMHG (79-93); ABG TCO2 21.8 MMOL/L (21.0-31.0); ALLENS TEST YES-POS
[2023-01-20 06:50] LABS: INSPIRED O2 25%; PATIENT TEMP 36.4; VENTILATOR NO
[2023-01-20] MEDS: LIDOCAINE 4% PATCH TOP SCH (08:33)
[2023-01-20] MEDS: dexAMETHasone INJ 10 MG/ML 1 ML VIAL IV SCH (08:34)
[2023-01-20] MEDS: POTASSIUM CHLORIDE 10 MEQ TABLET PO SCH (08:34)
[2023-01-20] MEDS: CLOPIDOGREL 75 MG TABLET PO SCH (08:34)
[2023-01-20] MEDS: ENOXAPARIN 40 MG/0.4 ML SYRINGE SC SCH (08:34)
[2023-01-20] MEDS: FUROSEMIDE 40 MG TABLET PO SCH (08:34)
[2023-01-20] MEDS: SENNOSIDES 8.6 MG TABLET PO SCH ×2 (08:34→20:04)
[2023-01-20] MEDS: DOCUSATE SODIUM 100 MG CAPSULE PO SCH ×2 (08:34→20:04)
[2023-01-20] MEDS: ASPIRIN 81 MG CHEWABLE TABLET PO SCH (08:34)
[2023-01-20] MEDS: DICLOFENAC 1% GEL 50 GM TUBE TOP SCH ×4 (08:35→20:05)
--- NOTE | 2023-01-20 10:07 | Tele-ICU Progress Note ---
Subjective Date Seen by a Provider: Jan 20, 2023 Time Seen by a Provider: 10:07 Subjective/Events-last exam ... (Tele-ICU Physician , Progress Note ) Service provided via interactive audio and video telecommunications E-CARE system to a patient admitted to ICU bed in [facility]. Patient is seen today due to persistent need of ICU care Available chart/ vitals / labs / Images reviewed Video assessment done using teleICU camera, rest of exam as per RN Discussed with RN Events overnight : Afebrile hemodynamically stable Respiratory - ra I/O = neg Drips: Pressors- no Hospital course: (01/17) 72/M- Covid Positive pna. Bipap. GCS 15. Now awake post period w not responding to sternal rub.Code fast and cth and intubation cancelled. A/P - COVID: decadron 6 mg IV daily. , PO baricitinib stopped . Supportive care ongoing. - COPD: Scheduled and PRN nebs. and steroids IV - UTI: cefepime initiated in ED. Cultures pending. - CAD: with mild troponin elevation. Likely demand in the setting of hypoxia. However, he is known to have inoperable CAD. Will trend troponins. ASA, Plavix. Cardiology consulted. - Severe elevation of LEFT hemidiaphrahm - chronic Lines : periph , (Central Line Necessity Reviewed) Michael: + OG: Nutrition: Po Analgesia: Anxiety/ delirium VTE Prophylaxis: montserrat 40 Stress Ulcer Prophylaxis: ppi Plans in collaboration with bedside consultants and IM MDs. Discussed with RN to reach out if any questions or concerns Case and care daily discussed on multidisciplinary rounds ( RN, PharmD, Chemistry Lab Instructor , Respiratory Therapy, youth care worker ) A total of 10 minutes of critical care time was devoted to this patient today, required to treat and/or prevent further deterioration of critical care condition ( as above ) I am remotely monitoring this patient from another state. I am unable to do the bedside exam, and history/physical and pertinent information is taken from other notes in the computer and bedside staff. Sepsis Event Evaluation Height, Weight, BMI Height: 5'9.00" Weight: 124lbs. 0oz. [id number]; 18.97 BMI Method:Stated Focused Exam Lactate Level 01/17/23 20:15: Lactic Acid Level 2.22*H 9/4/23 22:14: Lactic Acid Level 1.35 Time of Focused Exam: 10:10 Exam Exam Patient acknowledged, consented, and participated in this virtual visit which was conducted using real time audio/video Vital Signs Date Time Temp Pulse Resp B/P (MAP) Pulse Ox O2 Delivery O2 Flow Rate FiO2 01/20/23 09:00 93 89/65 (73) 96 Room Air 01/20/23 08:44 36.0 Room Air 01/20/23 08:00 84 98/66 (77) 95 Room Air 01/20/23 07:18 89 01/20/23 07:00 87 98/74 (82) 96 Room Air 01/20/23 06:49 36.0 81 99 01/20/23 06:34 99 Room Air 01/20/23 06:00 81 25 104/71 (82) 98 Room Air 01/20/23 05:00 79 25 114/80 (91) 100 Room Air 01/20/23 04:00 100 Room Air 01/20/23 04:00 74 104/72 (83) 100 Room Air 01/20/23 03:00 73 109/74 (86) 100 Room Air 01/20/23 02:58 100 Room Air 01/20/23 02:00 74 113/77 (89) 100 Room Air 01/20/23 01:00 80 01/20/23 01:00 78 14 108/78 (88) 100 Room Air 01/20/23 00:00 79 16 114/79 (91) 99 Room Air 01/20/23 00:00 36.0 01/19/23 23:59 100 Room Air 01/19/23 23:00 90 17 113/76 (88) 100 Room Air 01/19/23 22:00 86 17 123/84 (97) 100 Room Air 01/19/23 21:00 85 33 113/80 (91) 100 Room Air 01/19/23 20:00 82 19 100/68 (79) 100 Room Air 01/19/23 20:00 35.9 01/19/23 20:00 99 Room Air 01/19/23 19:00 100 01/19/23 19:00 97 20 97/70 (79) 100 Room Air 01/19/23 18:55 100 Room Air 01/19/23 18:00 89 27 117/107 (110) 97 Room Air 01/19/23 17:00 80 23 103/75 (84) 100 Room Air 01/19/23 16:00 99 Room Air 01/19/23 16:00 80 24 96/70 (79) 100 Room Air 01/19/23 15:00 104 29 120/78 (92) 100 Room Air 01/19/23 14:46 100 Room Air 01/19/23 14:00 97 16 98/85 (89) 100 Room Air 01/19/23 13:27 97 01/19/23 13:00 90 25 111/90 (97) 100 Room Air 01/19/23 12:00 93 42 97/74 (82) 100 Room Air 01/19/23 12:00 99 Room Air 01/19/23 11:00 99 22 91/64 (73) 93 Room Air 01/19/23 10:22 100 Room Air I & O 01/20/23 07:00 Intake Total 2965 ml Output Total 4275 ml Balance -1310 ml Height & Weight Height: 5'9.00" Weight: 124lbs. 0oz. [id number]; 18.97 BMI Method:Stated General Appearance: Anxious, Chronically ill, Mild Distress HEENT: PERRL/EOMI; No Pale Conjunctivae (L), No Pale Conjunctivae (R), No Scleral Icterus (L), No Scleral Icterus (R) Neck: Full Range of Motion, Normal Inspection, Supple; No Carotid Bruit Respiratory: No Respiratory Distress, Accessory Muscle Use, Decreased Breath Sounds Cardiovascular: Regular Rate, Rhythm Peripheral Pulses: 2+ Dorsalis Pedis (R), 2+ Left Dors-Pedis (L), 2+ Radial Pulses (R) Extremity: Normal Capillary Refill, Normal Inspection, No Calf Tenderness, Pedal Edema, Swelling (R-foot) Neurologic/Psychiatric: Alert, Oriented x3 Skin: Normal Color, Warm/Dry, Ecchymosis (suprapubic, present prior to admission) Lymphatic: No Adenopathy Results Lab Laboratory Tests 01/19/23 04:18 01/20/23 04:02 Assessment/Plan Assessment/Plan 1 RAYA COOK MD Jan 20, 2023 10:07
[2023-01-20] MEDS: LOSARTAN 25 MG TABLET PO SCH (10:15)
[2023-01-20] MEDS: HYPOCHLOROUS ACID/NaCl WOUND SOLN 250 ML IR PRN (10:30)
--- NOTE | 2023-01-20 10:38 | Diagnostic Imaging Report ---
EXAMINATION: Chest 1 view HISTORY: Pneumonia. COMPARISON: 01/19/2023 FINDINGS: Median sternotomy wires are aligned. There are coronary artery bypass graft markers. Left hemidiaphragm is elevated. There is volume loss in left hemithorax. Right lung is clear. No pneumothorax. IMPRESSION: 1. Unchanged elevated left hemidiaphragm. Dictated by: Dictated on workstation # [id number]
--- NOTE | 2023-01-20 11:25 | Occupational Therapy Eval ---
OT Evaluation-General/PLF Medical Diagnosis Admission Date Jan 17, 2023 at 22:29 Medical Diagnosis: COVID-19 Onset Date: Jan 17, 2023 Therapy Diagnosis Therapy Diagnosis: weakness, low activty tolerance Height/Weight Height (Feet): 5 Height (Inches): 9.00 Weight (Pounds): 124 Weight (Ounces): 0 Precautions Precautions/Isolations: Droplet Isolation, Standard Precautions Weight Bear Status LLE prosthesis Referral Physician: Dr. Cano Referral Reason: Activity Tolerance, Self Care, Evaluation/Treatment Medical History Pertinent Medical History: Arthritis, CAD, COPD, GERD, HTN, Smoking Additional Medical History LLE prosthesis. Reviewed History: Yes Social History Home: Single Level Current Living Status: Alone Entry Into Home: Ramp ADL-Prior Level of Function SCALE: Activities may be completed with or without assistive devices. 9-Cvsvfyazeg-lqwfqry completes the activity by him/herself with no assistance from a helper. 5-Set-up or Clean-up Assistance-helper sets up or cleans up; patient completes activity. [place] assists only prior to or following the activity. 4-Supervision or Touching Assistance-helper provides verbal cues and/or touching/steadying and/or contact guard assistance as patient completes activity. Assistance may be provided throughout the activity or intermittently. 3-Partial/Moderate Assistance-helper does LESS THAN HALF the effort. [place] lifts, holds or supports trunk or limbs, but provides less than half the effort. 2-Substantial/Maximal Assistance-helper does MORE THAN HALF the effort. [place] lifts or holds trunk or limbs and provides more than half the effort. 7-[place]sshxgkqt[place] does ALL the effort. Patient does none of the effort to complete the activity. Or, the assistance of 2 or more helpers is required for the patient to complete the activity. If activity was not attempted, code reason: 7-Patient Refused. 9-Not Applicable-not attempted and the patient did not perform the activity before the current illness, exacerbation or injury. 10-Not Attempted due to Environmental Limitations-(lack of equipment, weather restraints, etc.). 88-Not Attempted due to Medical Conditions or Safety Concerns. ADL PLOF Comments Intermittent stay at rehab from home [facility] Self Care: Needed Some Help Functional Cognition: Needed Some Help DME/Equipment: Grab Bars, Shower Drive Self: Yes OT Current Status Subjective Agreeable to participate, thankful for his care Mental Status/Objective Patient Orientation: Person, Place, Time, Situation Attachments: IV Current Glasses/Contacts: Yes Hearing Aids: No Hand Dominance: Right Upper Extremity ROM BUE ROM WFLS Upper Extremity Coordination INTACT Upper Extremity Strength -4/5 BUE ADL-Treatment ADL-Current Set up for face/hair/oral grooming needs, sudsy clothe for neck, ears, BUEs Eating (QC): 6 Oral Hygiene (QC): 5 Shower/Bathe Self (QC): 7 Upper Body Dressing (QC): 4 Lower Body Dressing (QC): 4 On/Off Footwear (QC): 3 Toileting Hygiene (QC): 4 Education OT Patient Education: Correct positioning, Energy conservation, Exercise program, Modified ADL techniques, Progress toward Goal/Update tx plan, Purpose of tx/functional activities, Reviewed precautions, Rehab process, Safety issues, Transfer techniques, Use of adapted equipment Teaching Recipient: Patient Teaching Methods: Demonstration, Discussion Response to Teaching: Verbalize Understanding, Reinforcement Needed OT Long-Term Goals Clinical Laboratory Medical Director Goals Time Frame: Jan 24, 2023 Eating (QC): 6 Oral Hygiene (QC): 6 Toileting Hygiene (QC): 5 Shower/Bathe Self (QC): 4 Upper Body Dressing (QC): 5 Lower Body Dressing (QC): 5 On/Off Footwear (QC): 5 1=Demonstrate adherence to instructed precautions during ADL tasks. 2=Patient will verbalize/demonstrate understanding of assistive devices/modifications for ADL. 3=Patient will improve strength/tolerance for activity to enable patient to perform ADL's. OT Education/Plan Problem List/Assessment Assessment: Decreased Activ Tolerance, Decreased UE Strength, Impaired Funct Balance, Impaired Self-Care Skills Discharge Recommendations Plan/Recommendations: Continue POC Treatment Plan/Plan of Care Treatment,Training & Education: Yes Patient would benefit from OT for education, treatment and training to promote independence in ADL's, mobility, safety and/or upper extremity function for ADL's. Plan of Care: ADL Retraining, Functional Mobility, Group Exercise/Act as Ind, UE Funct Exercise/Act Treatment Duration: Jan 20, 2023 Frequency: 3 times per week (3-5xweek) Estimated Hrs Per Day: .25 hour per day Agreement: Yes Rehab Potential: Fair Time Start Time: 10:38 Stop Time: 10:53 DATE: Jan 20, 2023 Total Time Billed (hr/min): 15 Billed Treatment Time EVM 15 min QI COYLE OT Jan 20, 2023 11:25
--- NOTE | 2023-01-20 11:52 | Physical Therapy Daily Note ---
PT Daily Note-Current Subjective Patient agrees to PT. Pain Section J - Health Conditions 1. Rarely or not at all 2. Occasionally 3. Frequently 4. Almost constantly 8. Unable to answer Pain Effect on Sleep: 2 Pain Interference with Therapy: 2 Pain Interference w/Day-to-Day: 2 Mental Status Patient Orientation: Normal For Age Attachments: Michael Catheter Transfers SCALE: Activities may be completed with or without assistive devices. 1-Wjqzzbbfpj-yrrbotr completes the activity by him/herself with no assistance from a helper. 5-Set-up or Clean-up Assistance-helper sets up or cleans up; patient completes activity. [place] assists only prior to or following the activity. 4-Supervision or Touching Assistance-helper provides verbal cues and/or touching/steadying and/or contact guard assistance as patient completes activity. Assistance may be provided throughout the activity or intermittently. 3-Partial/Moderate Assistance-helper does LESS THAN HALF the effort. [place] lifts, holds or supports trunk or limbs, but provides less than half the effort. 2-Substantial/Maximal Assistance-helper does MORE THAN HALF the effort. [place] lifts or holds trunk or limbs and provides more than half the effort. 3-Psegkcfcj-zqapoh does ALL the effort. Patient does none of the effort to complete the activity. Or, the assistance of 2 or more helpers is required for the patient to complete the activity. If activity was not attempted, code reason: 7-Patient Refused. 9-Not Applicable-not attempted and the patient did not perform the activity before the current illness, exacerbation or injury. 10-Not Attempted due to Environmental Limitations-(lack of equipment, weather restraints, etc.). 88-Not Attempted due to Medical Conditions or Safety Concerns. Lying to Sitting/Side of Bed(Q: 6 Sit to Stand (QC): 4 Chair/Tbo-yj-Jniac Xfer(QC): 4 Weight Bearing Right Lower Extremity: Right Full Weight Bearing Left Lower Extremity: Left Full Weight Bearing Gait Training Distance: 50' in room Walk 10 feet (QC): 4 Walk 50 ft with 2 Turns(QC): 4 Gait Assistive Device: FWW slow, steady gait sequence Assessment Patient has noted SOA with minimal activity with SAO2 >90 RA. Patient up in recliner with needs met. PT Snf Goals Snf Goals PT Snf Goals Time Frame: Feb 12, 2023 Roll Left & Right (QC): 6 Sit to Lying (QC): 6 Lying-Sitting on Side/Bed(QC): 6 Sit to Stand (QC): 6 Chair/Rmm-kl-Jygev Xfer(QC): 6 Toilet Transfer (QC): 6 Does the Patient Walk: Yes Walk 10 feet (QC): 6 Walk 50ft with 2 Turns (QC): 4 Walk 150 ft (QC): 4 PT Plan Treatment/Plan Treatment Plan: Continue Plan of Care Treatment Plan: Bed Mobility, Education, Functional Activity Gonzalez, Functional Strength, Group Therapy, Gait, Safety, Therapeutic Exercise, Transfers Treatment Duration: Feb 12, 2023 Frequency: 6 times per week Estimated Hrs Per Day: .25 hour per day Patient and/or Family Agrees t: Yes Time Time In: 1035 Time Out: 1048 DATE: Jan 20, 2023 Total Billed Treatment Time: 13 Total Billed Treatment 1 visit GT 13 min GINNA BRIONES PT Jan 20, 2023 11:52
--- NOTE | 2023-01-20 12:29 | Progress Note - Hospitalist ---
NEVILLE THOMPSON 01/20/23 1229: Subjective HPI/CC On Admission Date Seen by Provider: Jan 20, 2023 Time Seen by Provider: 09:30 CC: COVID induced acute hypoxic respiratory failure HPI: This is a 72yoWM clinic patient of [facility] who has had a lengthy complicated course for the past few weeks which included an DC while on a cruise requiring [place] admit and significant debility requiring transfer via air ambulance to [facility] for recovery who presented to the ER with weakness and AMS and found to have resp failure from COVID. Subjective/Events-last exam 01/20/2023: 72y male in hospital day 4 due to acute hypoxic respiratory failure due to COVID. He also has a UTI. Since last visit, Dwight notes that he is feeling better. Last night, he was able to sleep better. Dwight notes that he has to stop to catch his breath when eating. He denies using the BIPAP or supplemental oxygen via nasal cannula last night to sleep. He is currently in 10 dull pain due to previous back issues. He noted that he was able to have a BM on 01/19 following a long period of constipation. He notes that this gave him a lot of relief. Dwight also mentioned that he was able to walk much further than yesterday and that he felt stronger. He desires to keep working with PT to regain some independence. He notes that the swelling in his R-ankle has decreased. He also says that his suprapubic ecchymosis has no associated pain or changes. He denies any concerns about his jimenez catheter and notes that it has been cleaned frequently. No other concerns were mentioned when asked. Review of Systems General: No Chills, No Night Sweats, No Fatigue, No Malaise, No Appetite, No Other Pulmonary: No Dyspnea, No Cough, No Pleuritic Chest Pain, No Other Cardiovascular: No: Chest Pain, Palpitations, Orthopnea, Paroxysmal Noc. Dyspnea, Edema, Lt Headedness, Other Gastrointestinal: No: Nausea, Vomiting, Abdominal Pain, Diarrhea, Constipation, Melena, Hematochezia, Other Genitourinary: Other (jimenez catheter in place) Musculoskeletal: back pain (chronic, managed by other provider); No: other, neck pain, shoulder pain, arm pain, hand pain, leg pain, foot pain Neurological: No: Weakness, Numbness, Incoordination, Change in speech, Confusion, Seizures, Other Focused Exam Sepsis Stage: Ruled Out Reason for ruling out sepsis: Normal pulse, BP, temperature, and LA. Lactate Level 01/17/23 20:15: Lactic Acid Level 2.22*H 01/17/23 22:14: Lactic Acid Level 1.35 Time of Focused Exam: 10:10 Respiratory: Chest Non Tender, No Accessory Muscle Use, No Respiratory Distress, Expiration (wheezing), Wheezing Cardiovascular: Regular Rate, Rhythm, No Edema, No Gallop, No JVD, No Murmur, Normal Peripheral Pulses Peripheral Pulses: 2+ Dorsalis Pedis (R), 2+ Radial Pulses (R), 2+ Radial Pulses (L) Skin: normal color, warm/dry, ecchymosis (suprapubic, present prior to admission); No jaundice, No mottled, No pallor Within 3hrs of presentation: Admin fluids, Admin ABX, Blood cultures prior to ABX's, Focus exam, Lactate level Objective Exam Vital Signs Vital Signs Date Time Temp Pulse Resp B/P (MAP) Pulse Ox O2 Delivery O2 Flow Rate FiO2 01/20/23 10:00 94 26 109/77 (88) 97 Room Air 01/20/23 08:44 36.0 01/19/23 20:00 01/18/23 18:55 1.00 Capillary Refill : General Appearance: No Apparent Distress, WD/WN, Thin HEENT: PERRL/EOMI, TMs Normal, Normal ENT Inspection; No Pale Conjunctivae (L), No Pale Conjunctivae (R), No Scleral Icterus (L), No Scleral Icterus (R) Neck: Full Range of Motion, Normal Inspection, Non Tender, Supple Respiratory: Chest Non Tender, No Accessory Muscle Use, No Respiratory Distress, Expiration, Wheezing Cardiovascular: Regular Rate, Rhythm, No Edema, No Gallop, No JVD, No Murmur, Normal Peripheral Pulses Gastrointestinal: Normal Bowel Sounds, Non Tender, Soft Rectal: Deferred Back: Normal Inspection, Vertebral Tenderness (L3-L5 region, notes disc pathology) Extremity: Normal Capillary Refill, Normal Inspection, Normal Range of Motion, Non Tender, No Calf Tenderness Neurologic/Psychiatric: Alert, Oriented x3, No Motor/Sensory Deficits, Normal Mood/Affect Skin: Normal Color, Warm/Dry Lymphatic: No Adenopathy Results/Procedures Lab Laboratory Tests 01/20/23 04:02 Patient resulted labs reviewed. Imaging: Reviewed Imaging Films, Reviewed Imaging Report (noted L-hemidiaphram changes) Assessment/Plan Assessment and Plan Assess & Plan/Chief Complaint 01/18/2023: Assessment: * COVID-19 with acute respiratory failure * COPD * UTI * Constipation * Previous DC (01/05), CAD * DVT Prophylaxis * GERD Plan: For respiratory concerns, continue oxygen supplementation to avoid respiratory distress. Patient has access to BIPAP PRN if oxygenation decreases. Patient is currently on 4L via a nasal cannula stating at 96% saturation. If saturation changes or if patient complains of SOB, revert back to BIPAP. For COVID, continue to use decadron (6mg IV) as noted to prevent respiratory inflammation. C-XR noted mild R-basilar atelectasis or possible pneumonia. Due to COVID-19 diagnosis, continue supportive care. Patient is on ABX for cystitis, but monitor for potential superimposed bacterial infection of lungs since patient is high risk (nursing facility prior to admission). For the cystitis, continue with the cefepime and azithromycin, monitor for mental status change, fever, or any sign of disseminated infection. If culture comes back and antibiotic therapy isn't covering etiology of illness, antibiotic will be changed. For constipation, continue docusate and senna. Monitor for abdominal distension and discomfort. For CAD, continue with plavix and ASA. For DVT prophylaxis, continue enoxaparin. For symptoms of acid reflux, continue using pantoprazole. \ [email or web address] 01/19/2023: Assessment: * same as 01/18 * Acute on chronic CHF per Dr. Rice Plan: Continue to have access to bipap and nasal cannula if needed. Dwight is on room air and has 100% saturation. For sleeping, supplement with O2 or monitor closely spO2. Dwight was not able to sleep last night, so we want to make sure that this wasn't because he wasn't able to comfortably fall asleep due to respiratory concerns. Offer nasal cannula or bipap for sleeping. Continue to decadron. Continue ABX for UTI that is likely due to E. Coli. Monitor for potential bacterial superimposed infection over the COVID infection that would result in bacterial pneumonia. With the increased expiratory wheezes, ensure this doesn't result in pneumonia. Schedule echocardiogram to check for changes in heart function. Acute on chronic CHF increases risk for fluid overload. Consider decreasing IV fluids since patient is eating and drinking well. Monitor for any changes in presentation. Continue supportive medications such as pantoprazole and docusate. [email or web address] 01/20/2023 Assessment: * COVID-19 with acute respiratory failure * Acute on Chronic CHF * COPD * UTI Plan: Continue having access to supplemental oxygen if needed while sleeping or during activity. Oxygen saturation has been stable on RA. Transfer Dwight from the ICU due to improvement of status and lack of acuity of care. Continue with decadron for COVID, spiriva, and brio of COPD managment. Continue with cefepime and azithromycin for UTI and monitor for changes. Schedule echocardiogram for CHF to discover etiology, watching for signs of decompensation. Continue supportive medications as needed such as patoprazole and docusate. [email or web address] Diagnosis/Problems Diagnosis/Problems (1) COVID-19 Status: Acute Assessment & Plan: Decadron, supportive oxygen as needed via nasal cannula (2) Respiratory failure Status: Acute Qualifiers: Qualified Codes: J96.01 - Acute respiratory failure with hypoxia (3) COPD exacerbation Status: Acute Assessment & Plan: PRN nebulizer treatment (4) Urinary tract infection Status: Acute Assessment & Plan: cefepime and azithromycin Qualifiers: Qualified Codes: N30.00 - Acute cystitis without hematuria (5) Acute on chronic congestive heart failure Status: Acute Assessment & Plan: echocardiogram per Dr. Rice to discern ejection fraction and systolic or diastolic etiology, management with cardiology. Qualifiers: Qualified Codes: I50.9 - Heart failure, unspecified (6) Superficial bruising of abdominal wall Status: Acute Assessment & Plan: present prior to admission, Suprapubic, daughter claims due to medication administration and previous facility (7) Carotid artery stenosis Status: Chronic Assessment & Plan: plavix and ASA (8) On deep vein thrombosis (DVT) prophylaxis Status: Acute Assessment & Plan: Enoxaparin Clinical Quality Measures Admission Status Admission Dx Acute Respiratory Failure due to COVID Admission Status: Inpatient Order (span 2 midnights) Reason for Inpatient Admission: COVID, complex medical sequele DVT/VTE Prophylaxis Comfirm.Dx Mechanical not ordered: Pharmacological PPX Pneumonia: Pseudomonal Risk: COPD HCAP with risk for mulit-drug: Penitentiary Resident (rehab) Urinary Catheter-Non SCIP Pts: Reason for Catheter Continuanc: Urinary Retention MARY JO RAY DO 01/21/23 0444: Subjective Subjective/Events-last exam Patient doing about the same On room air Did not use BiPAP Will move to fourth floor today Review of Systems General: Fatigue, Malaise Pulmonary: Dyspnea Objective Exam General Appearance: No Apparent Distress, WD/WN, Chronically ill Respiratory: No Accessory Muscle Use, No Respiratory Distress, Wheezing Cardiovascular: Regular Rate, Rhythm Neurologic/Psychiatric: Alert, Oriented x3 Assessment/Plan Assessment and Plan Assess & Plan/Chief Complaint COVID-19 management PT and OT UTI treatment with gentamicin Supervisory-Addendum Brief Verification & Attestation Participated in pt care: history, MDM, physical Personally performed: exam, history, MDM, supervision of care Care discussed with: Medical Student Procedures: n/a Results interpretation: Verified all documentation Verification and Attestation of Medical Student E/M Service A medical student performed and documented this service in my presence. I reviewed and verified all information documented by the medical student and made modifications to such information, when appropriate. I personally performed the physical exam and medical decision making. Mary Jo Ray Jan 21, 2023,04:43 NEVILLE THOMPSON Jan 20, 2023 12:29 MARY JO RAY DO Jan 21, 2023 04:44
[2023-01-20 15:45] VITALS: BP 119/72
[2023-01-20] MEDS: TAMSULOSIN 0.4 MG (FLOMAX) CAP PO SCH (18:02)
[2023-01-20] MEDS ORDERED: D5W IV SCH (19:00)
[2023-01-20] MEDS ORDERED: GENTAMICIN IV SCH (19:00)
[2023-01-20 19:35] VITALS: BP 129/76
[2023-01-20] MEDS: AZITHROMYCIN 250 MG TABLET PO SCH (20:04)
[2023-01-20] MEDS: FINASTERIDE 5 MG TABLET PO SCH (20:04)
[2023-01-20] MEDS: GENTAMICIN IV SCH (20:05)
[2023-01-20] MEDS: D5W IV SCH (20:05)
[2023-01-20] MEDS ORDERED: FUROSEMIDE INJECTION 40 MG/4 ML VIAL IVP ONE (20:45)
[2023-01-20] MEDS ORDERED: RT-ALBUTEROL HFA 8.5 GM INHALER IH SCH (21:00)
[2023-01-20 23:09] VITALS: BP 142/85
[2023-01-21] MEDS: HYDROcodone/ACETAMINOPHEN 10/325 TABLET PO SCH ×3 (03:13→21:21)
[2023-01-21 03:14] VITALS: BP 150/89
[2023-01-21] MEDS ORDERED: [UNRECOGNIZED DRUG - REMARK] XX NR (05:30)
[2023-01-21] MEDS: GABAPENTIN 300 MG CAPSULE PO SCH ×4 (05:41→23:40)
[2023-01-21] MEDS: CYCLOBENZAPRINE 10 MG TABLET PO SCH (05:41)
[2023-01-21] MEDS: PANTOPRAZOLE 40 MG TABLET PO SCH ×2 (05:41→15:49)
[2023-01-21] MEDS: inSUlin ASPART 1 UNIT/0.01 ML (PER UNIT) SC SCH ×4 (05:42→22:15)
[2023-01-21 06:06] LABS: BASOPHILS % (AUTO) 0 % (0-10); EOSINOPHILS % (AUTO) 0 % (0-10); HEMATOCRIT 39 % (40-54); HEMOGLOBIN 12.5 g/dL (13.3-17.7); LYMPHOCYTES # (AUTO) 0.8 10^3/uL (1.0-4.0); LYMPHOCYTES % (AUTO) 12 % (12-44); MEAN CORPUSCULAR HEMOGLOBIN 32 pg (25-34); MEAN CORPUSCULAR HGB CONC 33 g/dL (32-36); MEAN CORPUSCULAR VOLUME 99 fL (80-99); MEAN PLATELET VOLUME 8.7 fL (9.0-12.2); MONOCYTES # (AUTO) 0.4 10^3/uL (0.0-1.0); MONOCYTES % (AUTO) 6 % (0-12); NEUTROPHILS # (AUTO) 5.4 10^3/uL (1.8-7.8); NEUTROPHILS % (AUTO) 81 % (42-75); PLATELET COUNT 255 10^3/uL (130-400); WHITE BLOOD COUNT 6.7 10^3/uL (4.3-11.0)
[2023-01-21 06:20] LABS: ALBUMIN 3.7 GM/DL (3.2-4.5); POTASSIUM 3.9 MMOL/L (3.6-5.0)
[2023-01-21 06:21] LABS: CALCIUM 8.8 MG/DL (8.5-10.1)
[2023-01-21 06:22] LABS: TOTAL PROTEIN 6.8 GM/DL (6.4-8.2)
[2023-01-21 06:24] LABS: BILIRUBIN,TOTAL 0.6 MG/DL (0.1-1.0)
[2023-01-21 06:26] LABS: CREATININE SERUM 0.74 MG/DL (0.60-1.30)
[2023-01-21 06:29] LABS: MAGNESIUM 1.8 MG/DL (1.6-2.4)
[2023-01-21] MEDS: FLUTICASONE/VILANTEROL 200/25 MCG (7 DOSES) IH SCH (07:37)
[2023-01-21] MEDS: TIOTROPIUM INH 4 GM (SPIRIVA Respimat) IH SCH (07:37)
[2023-01-21 07:47] VITALS: BP 110/61
[2023-01-21] MEDS: SENNOSIDES 8.6 MG TABLET PO SCH ×2 (08:10→21:22)
[2023-01-21] MEDS: LOSARTAN 25 MG TABLET PO SCH (08:10)
[2023-01-21] MEDS: FUROSEMIDE 40 MG TABLET PO SCH (08:10)
[2023-01-21] MEDS: ASPIRIN 81 MG CHEWABLE TABLET PO SCH (08:10)
[2023-01-21] MEDS: LIDOCAINE 4% PATCH TOP SCH (08:10)
[2023-01-21] MEDS: POTASSIUM CHLORIDE 10 MEQ TABLET PO SCH (08:10)
[2023-01-21] MEDS: CLOPIDOGREL 75 MG TABLET PO SCH (08:10)
[2023-01-21] MEDS: DOCUSATE SODIUM 100 MG CAPSULE PO SCH ×2 (08:10→21:22)
[2023-01-21] MEDS: dexAMETHasone 6 MG TABLET PO SCH (08:10)
[2023-01-21] MEDS: ENOXAPARIN 40 MG/0.4 ML SYRINGE SC SCH (08:11)
[2023-01-21] MEDS: DICLOFENAC 1% GEL 50 GM TUBE TOP SCH ×4 (08:11→22:00)
[2023-01-21 09:32] VITALS: BP 110/61
--- NOTE | 2023-01-21 10:13 | Diagnostic Imaging Report ---
INDICATION: Lower respiratory infection Portable chest 9:51 AM There are postoperative changes from CABG surgery. There is elevation of left hemidiaphragm. Heart size and pulmonary vascularity are normal. Lungs are clear. IMPRESSION: Elevated left hemidiaphragm unchanged from previous day. No acute abnormality seen. Dictated by: Dictated on workstation # [id number]
[2023-01-21 10:36] LABS: ABG OXYGEN SATURATION 93 % (94-100); ABG PCO2 32 MMHG (35-45); ABG PH 7.46 (7.37-7.43); ABG PO2 63 MMHG (79-93); ABG TCO2 23.2 MMOL/L (21.0-31.0)
[2023-01-21 10:37] LABS: ALLENS TEST YES-POS; INSPIRED O2 2 L; VENTILATOR NO
[2023-01-21] MEDS ORDERED: RT-ALBUTEROL HFA 8.5 GM INHALER IH PRN (11:00)
[2023-01-21 11:17] VITALS: BP 92/61
--- NOTE | 2023-01-21 11:46 | Occupational Ther Daily Note ---
OT Current Status-Daily Note Subjective Noted decline, patient is responsive w/ nodding his head and 1-2 word responses, dyskinesia present Mental Status/Objective Patient Orientation: Person, Place ADL-Treatment Requires assistance w/ feeding d/t dyskinesia and low tolerance to activity, family is present will assist w/ meals. 2 person transfers max assist, Incont BM during session, OT performed hygiene and pad change while PT assisted in static stance w/ patient. Patient tolerated 2 sit/stands only. Therapy Code Descriptions/Definitions Functional [place] Measure: 0=Not Assessed/NA 4=Minimal Assistance 1=Total Assistance 5=Supervision or Setup 2=Maximal Assistance 6=Modified [place] 3=Moderate Assistance 7=Complete IndependenceSCALE: Activities may be completed with or without assistive devices. 9-Xbrqrkxiwu-mqixarf completes the activity by him/herself with no assistance from a helper. 5-Set-up or Clean-up Assistance-helper sets up or cleans up; patient completes activity. [place] assists only prior to or following the activity. 4-Supervision or Touching Assistance-helper provides verbal cues and/or touching/steadying and/or contact guard assistance as patient completes activity. Assistance may be provided throughout the activity or intermittently. 3-Partial/Moderate Assistance-helper does LESS THAN HALF the effort. [place] lifts, holds or supports trunk or limbs, but provides less than half the effort. 2-Substantial/Maximal Assistance-helper does MORE THAN HALF the effort. [place] lifts or holds trunk or limbs and provides more than half the effort. 4-Kvwnoevno-ikevzm does ALL the effort. Patient does none of the effort to complete the activity. Or, the assistance of 2 or more helpers is required for the patient to complete the activity. If activity was not attempted, code reason: 7-Patient Refused. 9-Not Applicable-not attempted and the patient did not perform the activity before the current illness, exacerbation or injury. 10-Not Attempted due to Environmental Limitations-(lack of equipment, weather restraints, etc.). 88-Not Attempted due to Medical Conditions or Safety Concerns. Eating (QC): 3 Oral Hygiene (QC): 2 Upper Body Dressing (QC): 2 Lower Body Dressing (QC): 1 On/Off Footwear: 1 Toileting Hygiene (QC): 1 Toilet Transfer (QC): 1 Patient is medicated and fall risk has increased Education OT Patient Education: Instructions to caregiver, Modified ADL techniques, Progress toward Goal/Update tx plan, Purpose of tx/functional activities, Reviewed precautions, Rehab process, Safety issues, Transfer techniques Teaching Recipient: Patient Teaching Methods: Demonstration, Discussion Response to Teaching: Reinforcement Needed OT Group Home Goals Greige Mender Goals Time Frame: Jan 24, 2023 Eating (QC): 6 Oral Hygiene (QC): 6 Toileting Hygiene (QC): 5 Shower/Bathe Self (QC): 4 Upper Body Dressing (QC): 5 Lower Body Dressing (QC): 5 On/Off Footwear (QC): 5 1=Demonstrate adherence to instructed precautions during ADL tasks. 2=Patient will verbalize/demonstrate understanding of assistive cristian alfredito/modifications for ADL. 3=Patient will improve strength/tolerance for activity to enable patient to perform ADL's. OT Education/Plan Problem List/Assessment Assessment: Decreased Activ Tolerance, Decreased Safety Aware, Decreased UE Strength, Dependent Transfers, Impaired Bed Mobility, Impaired Cognition, Impaired Coordination, Impaired Funct Balance, Impaired Self-Care Skills, Restricted Funct UE ROM Discharge Recommendations Plan/Recommendations: Continue POC Treatment Plan/Plan of Care Treatment,Training & Education: Yes Patient would benefit from OT for education, treatment and training to promote independence in ADL's, mobility, safety and/or upper extremity function for ADL's. Plan of Care: ADL Retraining, Functional Mobility, Group Exercise/Act as Ind, UE Funct Exercise/Act Treatment Duration: Jan 20, 2023 Frequency: 3 times per week (3-5xweek) Estimated Hrs Per Day: .25 hour per day Agreement: Yes Rehab Potential: Fair Positioned in recliner w/ BLEs elevated to reduce falls, family is present, all needs met Time Start Time: 11:20 Stop Time: 11:35 DATE: Jan 21, 2023 Total Time Billed (hr/min): 15 Billed Treatment Time ADL 15 min QI COYLE OT Jan 21, 2023 11:46
--- NOTE | 2023-01-21 11:47 | Physical Therapy Daily Note ---
PT Daily Note-Current Subjective Patient is very lethargic/family present and very attentive. Pain Section J - Health Conditions 1. Rarely or not at all 2. Occasionally 3. Frequently 4. Almost constantly 8. Unable to answer Pain Effect on Sleep: 8 Pain Interference with Therapy: 8 Pain Interference w/Day-to-Day: 8 Mental Status Attachments: Michael Catheter Transfers SCALE: Activities may be completed with or without assistive devices. 4-Tlscsnuzux-zvqwgle completes the activity by him/herself with no assistance from a helper. 5-Set-up or Clean-up Assistance-helper sets up or cleans up; patient completes activity. [place] assists only prior to or following the activity. 4-Supervision or Touching Assistance-helper provides verbal cues and/or touching/steadying and/or contact guard assistance as patient completes activity. Assistance may be provided throughout the activity or intermittently. 3-Partial/Moderate Assistance-helper does LESS THAN HALF the effort. [place] lifts, holds or supports trunk or limbs, but provides less than half the effort. 2-Substantial/Maximal Assistance-helper does MORE THAN HALF the effort. [place] lifts or holds trunk or limbs and provides more than half the effort. 5-Mmmiwmczi-oekamj does ALL the effort. Patient does none of the effort to complete the activity. Or, the assistance of 2 or more helpers is required for the patient to complete the activity. If activity was not attempted, code reason: 7-Patient Refused. 9-Not Applicable-not attempted and the patient did not perform the activity before the current illness, exacerbation or injury. 10-Not Attempted due to Environmental Limitations-(lack of equipment, weather restraints, etc.). 88-Not Attempted due to Medical Conditions or Safety Concerns. Sit to Stand (QC): 1 (x 2) noted dyskinesia with all mobility attempts Weight Bearing Right Lower Extremity: Right Full Weight Bearing Left Lower Extremity: Left Full Weight Bearing Exercises Seated Therapy Exercises: Sit to stand Seated Reps: 2 (dependent assist of 2 due to dyskinesia) Assessment Current Status: Poor Progress Patient is very lethargic and displaying inability to perform gross motor skills on this date. Patient required dependent assist of 2 for sit to stand transfers. PT Mcfp Goals Mcfp Goals PT Diesel Engine Mechanic Apprentice Goals Time Frame: Feb 12, 2023 Roll Left & Right (QC): 6 Sit to Lying (QC): 6 Lying-Sitting on Side/Bed(QC): 6 Sit to Stand (QC): 6 Chair/Mwe-zd-Sidvz Xfer(QC): 6 Toilet Transfer (QC): 6 Does the Patient Walk: Yes Walk 10 feet (QC): 6 Walk 50ft with 2 Turns (QC): 4 Walk 150 ft (QC): 4 PT Plan Treatment/Plan Treatment Plan: Continue Plan of Care Treatment Plan: Bed Mobility, Education, Functional Activity Gonzalez, Functional Strength, Group Therapy, Gait, Safety, Therapeutic Exercise, Transfers Treatment Duration: Feb 12, 2023 Frequency: 6 times per week Estimated Hrs Per Day: .25 hour per day Patient and/or Family Agrees t: Yes Time Time In: 1120 Time Out: 1135 DATE: Jan 21, 2023 Total Billed Treatment Time: 15 Total Billed Treatment 1 visit FA 15 min GINNA BRIONES PT Jan 21, 2023 11:47
[2023-01-21] MEDS ORDERED: CYCLOBENZAPRINE 10 MG TABLET PO PRN (12:15)
--- NOTE | 2023-01-21 12:20 | Progress Note - Hospitalist ---
NEVILLE THOMPSON 01/21/23 1220: Subjective HPI/CC On Admission Date Seen by Provider: Jan 21, 2023 Time Seen by Provider: 10:20 CC: COVID induced acute hypoxic respiratory failure HPI: This is a 72yoWM clinic patient of [facility] who has had a lengthy complicated course for the past few weeks which included an [place] while on a [place] requiring [place] admit and significant debility requiring transfer via air ambulance to [facility] for recovery who presented to the ER with weakness and AMS and found to have resp failure from COVID. Subjective/Events-last exam Since last exam, Dwight (72M) was moved from the ICU and placed in MED/SURG and started to have some weakness. The weakness appeared this morning, and is bilateral in his upper extremities. He is able to keep his head up, and hasn't been walking. He was previously moving well and had a session with PT where he was walking. He notes that he has had some "jitters" and slight tremor in his hands. Nurse notes that he was also difficult to arouse, with it taking a few times to get him to stay awake. He used his BIPAP machine last night, and has been using some supportive oxygen via nasal cannula. He denies any pain at the moment. UTI management changed to use gentamycin due to culture revealing cephalosporin resistant microbes. AB.46 Review of Systems General: No Chills, No Night Sweats; Fatigue; No Malaise, No Appetite, No Other HEENT: No Head Aches, No Visual Changes, No Eye Pain, No Ear Pain, No Dysphasia, No Sinus Congestion, No Post Nasal Drip, No Sore Throat, No Other Pulmonary: Dyspnea, Cough; No Pleuritic Chest Pain Cardiovascular: Paroxysmal Noc. Dyspnea; No: Chest Pain, Palpitations, Orthopnea, Edema Gastrointestinal: No: Nausea, Vomiting, Abdominal Pain, Diarrhea, Constipation, Melena, Hematochezia, Other Genitourinary: No Dysuria, No Frequency, No Incontinence, No Hematuria, No Retention; Other (Michael catheter ) Musculoskeletal: No: other, neck pain, shoulder pain, arm pain, back pain, hand pain, leg pain, foot pain Neurological: Weakness (UE B/L ), Incoordination Focused Exam Time of Focused Exam: 10:10 Objective Exam Vital Signs Vital Signs Date Time Temp Pulse Resp B/P (MAP) Pulse Ox O2 Delivery O2 Flow Rate FiO2 01/21/23 11:17 36.6 112 17 92/61 (71) 91 Room Air 01/21/23 10:20 2.00 01/21/23 09:32 28 Capillary Refill : General Appearance: No Apparent Distress, WD/WN, Thin HEENT: PERRL/EOMI; No Pale Conjunctivae (L), No Pale Conjunctivae (R), No Photophobia, No Scleral Icterus (L), No Scleral Icterus (R) Neck: Full Range of Motion, Normal Inspection, Non Tender, Supple; No JVD Respiratory: Accessory Muscle Use, Crackles, Expiration, Inspiration, Wheezing Cardiovascular: Regular Rate, Rhythm, No Edema, No Gallop, No JVD, No Murmur, Normal Peripheral Pulses Gastrointestinal: Normal Bowel Sounds, No Organomegaly, No Pulsatile Mass, Non Tender Rectal: Deferred Back: No CVA Tenderness, Vertebral Tenderness (previous pathology) Extremity: Normal Capillary Refill, Normal Inspection, Non Tender, No Pedal Edema Neurologic/Psychiatric: Alert, Oriented x3, Motor Weakness (3/5 Left arm, 5/5 Right arm with strength testing ) Skin: Normal Color, Warm/Dry Lymphatic: No Adenopathy Results/Procedures Lab Laboratory Tests 01/21/23 05:58 Patient resulted labs reviewed. Urine culture revealed cephalosporin resistance, possible bacterial cause attributed to citrobacter, klebsiella AB.46//63 Imaging: Reviewed Imaging Films, Reviewed Imaging Report (noted L-hemidiaphram changes) Meds Noted that Dwight is on Losartan, Furosemide, Flexeril, Tramadol, and Hydrocodone Bitart/Acetominophen which could attribute to the weakness/relaxed state. Assessment/Plan Assessment and Plan Assess & Plan/Chief Complaint 01/18/2023: Assessment: * COVID-19 with acute respiratory failure * COPD * UTI * Constipation * Previous MD (01/05), CAD * DVT Prophylaxis * GERD Plan: For respiratory concerns, continue oxygen supplementation to avoid respiratory distress. Patient has access to BIPAP PRN if oxygenation decreases. Patient is currently on 4L via a nasal cannula stating at 96% saturation. If saturation c hanges or if patient complains of SOB, revert back to BIPAP. For COVID, continue to use decadron (6mg IV) as noted to prevent respiratory inflammation. C-XR noted mild R-basilar atelectasis or possible pneumonia. Due to COVID-19 diagnosis, continue supportive care. Patient is on ABX for cystitis, but monitor for potential superimposed bacterial infection of lungs since patient is high risk (nursing facility prior to admission). For the cystitis, continue with the cefepime and azithromycin, monitor for mental status change, fever, or any sign of disseminated infection. If culture comes back and antibiotic therapy isn't covering etiology of illness, antibiotic will be changed. For constipation, continue docusate and senna. Monitor for abdominal distension and discomfort. For CAD, continue with plavix and ASA. For DVT prophylaxis, continue enoxaparin. For symptoms of acid reflux, continue using pantoprazole. \\ [email or web address] 01/19/2023: Assessment: * same as 01/18 * Acute on chronic CHF per Dr. Rice Plan: Continue to have access to bipap and nasal cannula if needed. Dwight is on room ai r and has 100% saturation. For sleeping, supplement with O2 or monitor closely spO2. Dwight was not able to sleep last night, so we want to make sure that this wasn't because he wasn't able to comfortably fall asleep due to respiratory concerns. Offer nasal cannula or bipap for sleeping. Continue to decadron. Continue ABX for UTI that is likely due to E. Coli. Monitor for potential bacterial superimposed infection over the COVID infection that would result in bacterial pneumonia. With the increased expiratory wheezes, ensure this doesn't result in pneumonia. Schedule echocardiogram to check for changes in heart function. Acute on chronic CHF increases risk for fluid overload. Consider decreasing IV fluids since patient is eating and drinking well. Monitor for any changes in presentation. Continue supportive medications such as pantoprazole and docusate. [email or web address] 01/20/2023 Assessment: * COVID-19 with acute respiratory failure * Acute on Chronic CHF * COPD * UTI Plan: Continue having access to supplemental oxygen if needed while sleeping or during activity. Oxygen saturation has been stable on RA. Transfer Dwight from the ICU due to improvement of status and lack of acuity of care. Continue with decadron for COVID, spiriva, and brio of COPD managment. Continue with cefepime and azit hromycin for UTI and monitor for changes. Schedule echocardiogram for CHF to discover etiology, watching for signs of decompensation. Continue supportive medications as needed such as patoprazole and docusateTima [email or web address] 01/21/2023: Assessment: * COVID-19 with acute respiratory failure * Acute on Chronic CHF * COPD * UTI * Weakness Plan: * Continue with supplemental oxygenation while sleeping and if he appears to have increased issues breathing. Decadron for COVID, spirivia and brio for COPD * Continue with heart medications, Losartan and Lasix, schedule ECHO * Continue gentamycin and Azithromycin for UTI * Discontinue cyclobenzaprine to reduce weakness Time spent with patient (mins): 20 Diagnosis/Problems Diagnosis/Problems (1) COVID-19 Status: Acute Assessment & Plan: Decadron, supportive oxygen as needed via nasal cannula (2) Respiratory failure Status: Acute Qualifiers: Qualified Codes: J96.01 - Acute respiratory failure with hypoxia (3) COPD exacerbation Status: Acute Assessment & Plan: PRN nebulizer treatment (4) Urinary tract infection Status: Acute Assessment & Plan: gentamycin and azithromycin Qualifiers: Qualified Codes: N30.00 - Acute cystitis without hematuria (5) Acute on chronic congestive heart failure Status: Acute Assessment & Plan: echocardiogram per Dr. Rice to discern ejection fraction and systolic or diastolic etiology, management with cardiology. Qualifiers: Qualified Codes: I50.9 - Heart failure, unspecified (6) Superficial bruising of abdominal wall Status: Acute Assessment & Plan: present prior to admission, Suprapubic, daughter claims due to medication administration and previous facility (7) Carotid artery stenosis Status: Chronic Assessment & Plan: plavix and ASA (8) On deep vein thrombosis (DVT) prophylaxis Status: Acute Assessment & Plan: Enoxaparin Clinical Quality Measures Admission Status Admission Dx Acute Respiratory Failure due to COVID DVT/VTE Prophylaxis Comfirm.Dx Mechanical not ordered: Pharmacological PPX Pneumonia: Pseudomonal Risk: COPD HCAP with risk for mulit-drug: Care Home Resident (rehab) Urinary Catheter-Non SCIP Pts: Reason for Catheter Continuanc: Urinary Retention MARY JO RAY DO 01/22/23 0630: Subjective Subjective/Events-last exam Patient was doing fairly well until he became weak and listless Change Flexeril to as needed When I saw the patient patient was stable and family at the bedside Labs reviewed Review of Systems General: Fatigue, Malaise Objective Exam General Appearance: Anxious, Chronically ill Respiratory: No Accessory Muscle Use, No Respiratory Distress, Decreased Breath Sounds Cardiovascular: Regular Rate, Rhythm Neurologic/Psychiatric: Alert, Oriented x3 Assessment/Plan Assessment and Plan Assess & Plan/Chief Complaint Supportive care Limit Flexeril Supervisory-Addendum Brief Verification & Attestation Participated in pt care: history, MDM, physical Personally performed: exam, history, MDM, supervision of care Care discussed with: Medical Student Procedures: n/a Results interpretation: Verified all documentation Verification and Attestation of Medical Student E/M Service A medical student performed and documented this service in my presence. I reviewed and verified all information documented by the medical student and made modifications to such information, when appropriate. I personally performed the physical exam and medical decision making. Mary Jo Rya Jan 22, 2023,06:29 NEVILLE THOMPSON Jan 21, 2023 12:20 MARY JO RAY DO Jan 22, 2023 06:30
[2023-01-21] MEDS: RT-ALBUTEROL HFA 8.5 GM INHALER IH SCH (14:17)
[2023-01-21 15:42] VITALS: BP_SYST 110; BP_SYST 83; BP_DIAS 54; BP_DIAS 66
[2023-01-21] MEDS: TAMSULOSIN 0.4 MG (FLOMAX) CAP PO SCH (17:30)
[2023-01-21] MEDS ORDERED: NS IV 500 ML 500 ML IV PRN (20:30)
--- NOTE | 2023-01-21 21:14 | Diagnostic Imaging Report ---
PROCEDURE: CT head without contrast. TECHNIQUE: Multiple contiguous axial images were obtained through the brain without the use of intravenous contrast. Auto Exposure Controls were utilized during the CT exam to meet ALARA standards for radiation dose reduction. INDICATION: Altered mental status. COMPARISON: 12/05/2013. FINDINGS: There is no CT finding of an acute intracranial abnormality. There is no evidence of hemorrhage. There is no mass effect or shift. There is no hydrocephalus. There is no extra-axial collection. Age related volume loss is present as well as microvascular changes within the white matter. There are remote prior lacunar infarcts within the thalami, bilaterally. These are unchanged from the prior exam. There is no new territorial loss of elias-white differentiation. Mastoids are clear. The paranasal sinuses are clear. Orbital contents normal. There is no acute calvarial abnormality. IMPRESSION: Age-related volume loss with microvascular changes within the white matter and remote thalamic lacunar infarcts. There is no CT finding of an acute intracranial abnormality. Dictated by: Dictated on workstation # [id number]
--- NOTE | 2023-01-21 21:15 | Diagnostic Imaging Report ---
INDICATION: Altered mental status and shortness of breath. COMPARISON: 01/21/2023. FINDINGS: Marked elevation of the left hemidiaphragm is unchanged. The visualized portion of the lungs remain clear. There is stable enlargement of the cardiac silhouette with prior operative changes of bypass grafting. Central pulmonary vascularity appears appropriate. IMPRESSION: No change in appearance of the chest. Marked elevation of the left hemidiaphragm limits assessment of the left lung base. The right lung appears clear. There is stable enlargement of the cardiac silhouette. Pulmonary vascularity appears appropriate. Dictated by: Dictated on workstation # [id number]
[2023-01-21 21:16] LABS: ABG BASE EXCESS 1.8 MMOL/L (-2.5-2.5); ABG OXYGEN SATURATION 91 % (94-100); ABG PCO2 37 MMHG (35-45); ABG PH 7.45 (7.37-7.43); ABG PO2 58 MMHG (79-93); ABG TCO2 26.7 MMOL/L (21.0-31.0); ALLENS TEST YES-POS; INSPIRED O2 21%
[2023-01-21 21:17] LABS: PATIENT TEMP 36.6; VENTILATOR NO
[2023-01-21] MEDS: D5W IV SCH (21:20)
[2023-01-21] MEDS: GENTAMICIN IV SCH (21:20)
[2023-01-21] MEDS: AZITHROMYCIN 250 MG TABLET PO SCH (21:22)
[2023-01-21] MEDS: FINASTERIDE 5 MG TABLET PO SCH (21:22)
[2023-01-21] MEDS: RT-Ipratropium/Albuterol NEB 3 ML VIAL INH PRN (21:28)
[2023-01-21 21:29] VITALS: BP 108/79
--- NOTE | 2023-01-21 21:42 | Tele-ICU Progress Note ---
Progress Note Patient transferred back from floor for being minimally responsive. He is currently arousable and follows commands but falls back asleep mid sentence. Had a similar episode last week in which he was nearly intubated for airway protection but suddenly awoke just prior. Glucose normal at 115. ABG with mild resp alkalosis 7.45/37/26. BP borderline at 88/46. CT head just completed, read pending. MAR reviewed, did receive gabapentin and norco but but are longstanding and without recent changes. Will monitor with intervention. Protecting airway and HD stable at this time. Focused Exam Height, Weight, BMI Height: 5'9.00" Weight: 124lbs. 0oz. 56.582730lm; 18.97 BMI Method:Stated Time of Focused Exam: 10:10 CATALINA MUSE MD Jan 21, 2023 21:42
[2023-01-21] MEDS ORDERED: NS IV 500 ML 500 ML IV SCH (21:45)
[2023-01-22] MEDS: RT-ALBUTEROL HFA 8.5 GM INHALER IH SCH ×4 (03:00→19:21)
[2023-01-22] MEDS: RT-Ipratropium/Albuterol NEB 3 ML VIAL INH PRN (03:30)
[2023-01-22 03:31] VITALS: BP 108/74
[2023-01-22 03:51] LABS: ABG BASE EXCESS 2.3 MMOL/L (-2.5-2.5); ABG OXYGEN SATURATION 95 % (94-100); ABG PCO2 36 MMHG (35-45); ABG PH 7.47 (7.37-7.43); ABG PO2 71 MMHG (79-93); ABG TCO2 26.8 MMOL/L (21.0-31.0)
[2023-01-22 03:52] LABS: ALLENS TEST YES-POS; INSPIRED O2 ROOM AIR; VENTILATOR NO
[2023-01-22] MEDS: HYDROcodone/ACETAMINOPHEN 10/325 TABLET PO SCH ×3 (04:22→19:59)
[2023-01-22 05:27] LABS: BASOPHILS % (AUTO) 0 % (0-10); EOSINOPHILS % (AUTO) 1 % (0-10); HEMATOCRIT 37 % (40-54); HEMOGLOBIN 12.2 g/dL (13.3-17.7); LYMPHOCYTES # (AUTO) 1.3 10^3/uL (1.0-4.0); LYMPHOCYTES % (AUTO) 22 % (12-44); MEAN CORPUSCULAR HEMOGLOBIN 33 pg (25-34); MEAN CORPUSCULAR HGB CONC 33 g/dL (32-36); MEAN CORPUSCULAR VOLUME 99 fL (80-99); MEAN PLATELET VOLUME 9.5 fL (9.0-12.2); MONOCYTES # (AUTO) 0.6 10^3/uL (0.0-1.0); MONOCYTES % (AUTO) 10 % (0-12); NEUTROPHILS # (AUTO) 3.8 10^3/uL (1.8-7.8); NEUTROPHILS % (AUTO) 66 % (42-75); PLATELET COUNT 295 10^3/uL (130-400); WHITE BLOOD COUNT 5.7 10^3/uL (4.3-11.0)
[2023-01-22 05:42] LABS: ALBUMIN 3.4 GM/DL (3.2-4.5); POTASSIUM 3.2 MMOL/L (3.6-5.0)
[2023-01-22 05:43] LABS: CALCIUM 8.6 MG/DL (8.5-10.1)
[2023-01-22 05:45] LABS: TOTAL PROTEIN 6.5 GM/DL (6.4-8.2)
[2023-01-22 05:46] LABS: BILIRUBIN,TOTAL 0.6 MG/DL (0.1-1.0)
[2023-01-22 05:48] LABS: CREATININE SERUM 0.57 MG/DL (0.60-1.30); PHOSPHORUS 3.2 MG/DL (2.3-4.7)
[2023-01-22 05:51] LABS: MAGNESIUM 1.9 MG/DL (1.6-2.4)
[2023-01-22] MEDS: GABAPENTIN 300 MG CAPSULE PO SCH ×4 (05:58→23:31)
[2023-01-22] MEDS: PANTOPRAZOLE 40 MG TABLET PO SCH ×2 (05:58→14:11)
[2023-01-22] MEDS: inSUlin ASPART 1 UNIT/0.01 ML (PER UNIT) SC SCH ×2 (06:00→11:21)
[2023-01-22] MEDS ORDERED: POTASSIUM CL 10MEQ/50ML IVPB 50 ML IV SCH (06:00)
[2023-01-22] MEDS ORDERED: POTASSIUM CHLORIDE 20 MEQ TABLET PO SCH (06:00)
[2023-01-22] MEDS ORDERED: MAGNESIUM 1 GM/100 ML IVPB 100 ML IV SCH (06:00)
[2023-01-22] MEDS ORDERED: MAGNESIUM 1 GM/100 ML IVPB 200 ML IV ONE (06:19)
[2023-01-22] MEDS ORDERED: POTASSIUM CL 10MEQ/50ML IVPB 400 ML IV ONE (06:20)
[2023-01-22] MEDS: POTASSIUM CL 10MEQ/50ML IVPB 50 ML IV SCH ×6 (06:44→12:00)
[2023-01-22] MEDS: MAGNESIUM 1 GM/100 ML IVPB 100 ML IV SCH ×2 (06:44→06:45)
[2023-01-22] MEDS: LIDOCAINE 4% PATCH TOP SCH (08:13)
[2023-01-22] MEDS: CLOPIDOGREL 75 MG TABLET PO SCH (08:13)
[2023-01-22] MEDS: ENOXAPARIN 30 MG/0.3 ML SYRINGE SC SCH (08:13)
[2023-01-22] MEDS: dexAMETHasone 6 MG TABLET PO SCH (08:13)
[2023-01-22] MEDS: SENNOSIDES 8.6 MG TABLET PO SCH ×2 (08:13→19:59)
[2023-01-22] MEDS: ASPIRIN 81 MG CHEWABLE TABLET PO SCH (08:13)
[2023-01-22] MEDS: FUROSEMIDE 40 MG TABLET PO SCH (08:13)
[2023-01-22] MEDS: POTASSIUM CHLORIDE 10 MEQ TABLET PO SCH (08:13)
[2023-01-22] MEDS: DOCUSATE SODIUM 100 MG CAPSULE PO SCH ×2 (08:14→19:59)
[2023-01-22] MEDS: LOSARTAN 25 MG TABLET PO SCH (08:14)
--- NOTE | 2023-01-22 08:16 | Physical Therapy Progress Note ---
Therapy Progress Note Patient transferred to ICU for being minimally responsive. Will need new orders to resume PT treatment. Will continue to follow patient at this time. YOCASTA STOCK PT Jan 22, 2023 08:16
[2023-01-22] MEDS: DICLOFENAC 1% GEL 50 GM TUBE TOP SCH ×4 (08:24→19:59)
--- NOTE | 2023-01-22 08:38 | Progress Note - Hospitalist ---
Subjective HPI/CC On Admission Date Seen by Provider: Jan 22, 2023 Time Seen by Provider: 11:00 CC: COVID induced acute hypoxic respiratory failure HPI: This is a 72yoWM clinic patient of [facility] who has had a lengthy complicated course for the past few weeks which included an [place] while on a [place] requiring [place] admit and significant debility requiring transfer via air ambulance to [facility] for recovery who presented to the ER with weakness and AMS and found to have resp failure from COVID. Subjective/Events-last exam Patient required transfer to ICU last night due to "unresponsiveness" No pain meds or Flexeril given Currently he is doing well CT CXR ABG last night were all normal Very frail status Review of Systems General: Fatigue, Malaise Focused Exam Time of Focused Exam: 10:10 Objective Exam Vital Signs Vital Signs Date Time Temp Pulse Resp B/P (MAP) Pulse Ox O2 Delivery O2 Flow Rate FiO2 01/22/23 16:07 37.2 109 18 97/63 (74) 93 Room Air 01/22/23 09:21 0.00 01/22/23 04:21 25 Capillary Refill : General Appearance: No Apparent Distress, WD/WN, Anxious, Chronically ill Respiratory: Lungs Clear, Normal Breath Sounds Cardiovascular: Regular Rate, Rhythm Neurologic/Psychiatric: Alert, Oriented x3 Results/Procedures Lab Laboratory Tests 01/22/23 05:05 Patient resulted labs reviewed. Imaging: Reviewed Imaging Films, Reviewed Imaging Report (noted L-hemidiaphram changes) Assessment/Plan Assessment and Plan Assess & Plan/Chief Complaint l Assessment: COVID PNA Acute hypoxic respiratory failure CAD Frail status Recent NSTEMI CABG hx Plan: Move back to floor O2 prn Clinical Quality Measures DVT/VTE Prophylaxis Comfirm.Dx Mechanical not ordered: Pharmacological PPX Pneumonia: Pseudomonal Risk: COPD HCAP with risk for mulit-drug: Residential Resident (rehab) Urinary Catheter-Non SCIP Pts: Reason for Catheter Continuanc: Urinary Retention JUAN RAY DO Jan 22, 2023 08:38
[2023-01-22] MEDS: FLUTICASONE/VILANTEROL 200/25 MCG (7 DOSES) IH SCH (09:13)
[2023-01-22] MEDS: TIOTROPIUM INH 4 GM (SPIRIVA Respimat) IH SCH (09:13)
--- NOTE | 2023-01-22 09:18 | Tele-ICU Progress Note ---
Progress Note video rounds completed 72 y/o male admitted with COVID PNA originally doing well, but transferred back to ICU for lethargy and AMS CT Head, negative for acute pathology Now doing better PE: VSS and normal Sitting up in bed, eating breakfast IMP: COVID PNA PLAN: improving and stable Focused Exam Height, Weight, BMI Height: 5'9.00" Weight: 124lbs. 0oz. [id number]; 18.38 BMI Method:Stated Time of Focused Exam: 10:10 Labs Laboratory Tests 01/22/23 05:05 Labs Laboratory Tests 01/22/23 05:05 Results Results/Procedures Labs Laboratory Tests 01/21/23 05:58 01/22/23 05:05 Patient resulted labs reviewed. Imaging: Reviewed Imaging Films, Reviewed Imaging Report (noted L-hemidiaphram changes) Results Labs Labs Laboratory Tests 01/21/23 10:20: Blood Gas Puncture Site RT RAD, Blood Gas Patient Temperature 37.0, Arterial Blood pH 7.46H, Arterial Blood Partial Pressure CO2 32L, Arterial Blood Partial Pressure O2 63L, Arterial Blood HCO3 22L, Arterial Blood Total CO2 23.2, Arterial Blood Oxygen Saturation 93L, Arterial Blood Base Excess -1.0, Nestor Test YES-POS, Blood Gas Ventilator Setting NO, Blood Gas Inspired Oxygen 2 L 01/21/23 11:08: Glucometer 93 01/21/23 15:50: Glucometer 103 01/21/23 21:00: Glucometer 115H 01/21/23 21:09: Blood Gas Puncture Site RIGHT RADIAL, Blood Gas Patient Temperature 36.6, Art erial Blood pH 7.45H, Arterial Blood Partial Pressure CO2 37, Arterial Blood Pa rtial Pressure O2 58L, Arterial Blood HCO3 26, Arterial Blood Total CO2 26.7, A rterial Blood Oxygen Saturation 91L, Arterial Blood Base Excess 1.8, Nestor Test YES-POS, Blood Gas Ventilator Setting NO, Blood Gas Inspired Oxygen 21% 01/22/23 03:42: Blood Gas Puncture Site RIGHT RADIAL, Blood Gas Patient Temperature UNKNOWN, Arterial Blood pH 7.47H, Arterial Blood Partial Pressure CO2 36, Arterial Blood Partial Pressure O2 71L, Arterial Blood HCO3 26, Arterial Blood Total CO2 26.8, Arterial Blood Oxygen Saturation 95, Arterial Blood Base Excess 2.3, Nestor Test YES-POS, Blood Gas Ventilator Setting NO, Blood Gas Inspired Oxygen ROOM AIR 01/22/23 05:05: White Blood Count 5.7, Red Blood Count 3.75L, Hemoglobin 12.2L, Hematocrit 37L, Mean Corpuscular Volume 99, Mean Corpuscular Hemoglobin 33, Mean Corpuscular Hemoglobin Concent 33, Red Cell Distribution Width 18.5H, Platelet Count 295, Mean Platelet Volume 9.5, Immature Granulocyte % (Auto) 1, Neutrophils (%) (Auto) 66, Lymphocytes (%) (Auto) 22, Monocytes (%) (Auto) 10, Eosinophils (%) (Auto) 1, Basophils (%) (Auto) 0, Neutrophils # (Auto) 3.8, Lymphocytes # (Auto) 1.3, Monocytes # (Auto) 0.6, Eosinophils # (Auto) 0.0, Basophils # (Auto) 0.0, Immature Granulocyte # (Auto) 0.1, Sodium Level 133L, Potassium Level 3.2L, Chloride Level 96L, Carbon Dioxide Level 23, Anion Gap 14, Blood Urea Nitrogen 11, Creatinine 0.57L, Estimat Glomerular Filtration Rate 105, BUN/Creatinine Ratio 19, Glucose Level 88, Calcium Level 8.6, Corrected Calcium 9.1, Phosphorus Level 3.2, Magnesium Level 1.9, Total Bilirubin 0.6, Aspartate Amino Transf (AST/SGOT) 25, Alanine Aminotransferase (ALT/SGPT) 24, Alkaline Phosphatase 76, Total Protein 6.5, Albumin 3.4 Microbiology 01/17/23 Blood Culture - Preliminary, Resulted 01/17/23 Urine Culture - Final, Complete Citrobacter freundii complex Klebsiella pneumoniae Susceptibility To Follow 01/17/23 MRSA Screen - Final, Complete MRSA not isolated Results Labs Labs Laboratory Tests 01/21/23 10:20: Blood Gas Puncture Site RT RAD, Blood Gas Patient Temperature 37.0, Arterial Blood pH 7.46H, Arterial Blood Partial Pressure CO2 32L, Arterial Blood Partial Pressure O2 63L, Arterial Blood HCO3 22L, Arterial Blood Total CO2 23.2, Arterial Blood Oxygen Saturation 93L, Arterial Blood Base Excess -1.0, Nestor Test YES-POS, Blood Gas Ventilator Setting NO, Blood Gas Inspired Oxygen 2 L 01/21/23 11:08: Glucometer 93 01/21/23 15:50: Glucometer 103 01/21/23 21:00: Glucometer 115H 01/21/23 21:09: Blood Gas Puncture Site RIGHT RADIAL, Blood Gas Patient Temperature 36.6, Arterial Blood pH 7.45H, Arterial Blood Partial Pressure CO2 37, Arterial Blood Partial Pressure O2 58L, Arterial Blood HCO3 26, Arterial Blood Total CO2 26.7, Arterial Blood Oxygen Saturation 91L, Arterial Blood Base Excess 1.8, Nestor Test YES-POS, Blood Gas Ventilator Setting NO, Blood Gas Inspired Oxygen 21% 01/22/23 03:42: Blood Gas Puncture Site RIGHT RADIAL, Blood Gas Patient Temperature UNKNOWN, Arterial Blood pH 7.47H, Arterial Blood Partial Pressure CO2 36, Arterial Blood Partial Pressure O2 71L, Arterial Blood HCO3 26, Arterial Blood Total CO2 26.8, Arterial Blood Oxygen Saturation 95, Arterial Blood Base Excess 2.3, Nestor Test YES-POS, Blood Gas Ventilator Setting NO, Blood Gas Inspired Oxygen ROOM AIR 01/22/23 05:05: White Blood Count 5.7, Red Blood Count 3.75L, Hemoglobin 12.2L, Hematocrit 37L, Mean Corpuscular Volume 99, Mean Corpuscular Hemoglobin 33, Mean Corpuscular Hemoglobin Concent 33, Red Cell Distribution Width 18.5H, Platelet Count 295, Mean Platelet Volume 9.5, Immature Granulocyte % (Auto) 1, Neutrophils (%) (Auto) 66, Lymphocytes (%) (Auto) 22, Monocytes (%) (Auto) 10, Eosinophils (%) (Auto) 1, Basophils (%) (Auto) 0, Neutrophils # (Auto) 3.8, Lymphocytes # (Auto) 1.3, Monocytes # (Auto) 0.6, Eosinophils # (Auto) 0.0, Basophils # (Auto) 0.0, Immature Granulocyte # (Auto) 0.1, Sodium Level 133L, Potassium Level 3.2L, Chloride Level 96L, Carbon Dioxide Level 23, Anion Gap 14, Blood Urea Nitrogen 11, Creatinine 0.57L, Estimat Glomerular Filtration Rate 105, BUN/Creatinine Ratio 19, Glucose Level 88, Calcium Level 8.6, Corrected Calcium 9.1, Phosphorus Level 3.2, Magnesium Level 1.9, Total Bilirubin 0.6, Aspartate Amino Transf (AST /SGOT) 25, Alanine Aminotransferase (ALT/SGPT) 24, Alkaline Phosphatase 76, Total Protein 6.5, Albumin 3.4 Microbiology 01/17/23 Blood Culture - Preliminary, Resulted 01/17/23 Urine Culture - Final, Complete Citrobacter freundii complex Klebsiella pneumoniae Susceptibility To Follow 01/17/23 MRSA Screen - Final, Complete MRSA not isolated Results Results/Procedures Lab Laboratory Tests 01/21/23 05:58 01/22/23 05:05 MORENITA MARTINEZ MD Jan 22, 2023 09:18
--- NOTE | 2023-01-22 13:35 | Diagnostic Imaging Report ---
INDICATION: Dyspnea Frontal chest at 0243 a.m. compared to 01/21/2023 There is cardiomegaly. There is post sternotomy change. There is unchanged elevation left hemidiaphragm. There is no new infiltrate or pneumothorax or pleural fluid. IMPRESSION: Cardiomegaly with postop changes. Unchanged elevation left hemidiaphragm. No new infiltrate. Dictated by: Dictated on workstation # [id number]
[2023-01-22 16:07] VITALS: BP 97/63
--- NOTE | 2023-01-22 17:12 | Cardiology Progress Note ---
Cardiology SOAP Progress Note Subjective: Was transferred to the ICU for significant weakness and possible altered mental status. Now is being transferred back to the floor. Objective: I&O/Vital Signs 01/22/23 01/22/23 01/22/23 01/22/23 06:00 06:58 07:00 07:00 Pulse 85 99 94 Resp 18 24 B/P (MAP) 120/72 (88) 118/64 (82) Pulse Ox 100 95 O2 Delivery NIV Bilevel Room Air Room Air O2 Flow Rate 25.00 01/22/23 01/22/23 01/22/23 01/22/23 07:20 07:57 08:00 08:00 Temp 36.4 Pulse 89 Resp 25 B/P (MAP) 116/72 (86) Pulse Ox 97 96 97 O2 Delivery Room Air Room Air Room Air 01/22/23 01/22/23 01/22/23 01/22/23 09:00 09:13 09:21 09:21 Pulse 105 Resp 25 B/P (MAP) 106/83 (91) Pulse Ox 94 98 O2 Delivery Room Air Room Air Room Air Room Air O2 Flow Rate 0.00 0.00 0.00 01/22/23 01/22/23 01/22/23 01/22/23 10:00 11:00 11:49 12:00 Temp 36.3 Pulse 106 105 106 Resp 26 12 27 B/P (MAP) 99/62 (75) 109/67 (85) 107/91 (96) Pulse Ox 98 96 99 O2 Delivery Room Air Room Air Room Air 01/22/23 01/22/23 01/22/23 01/22/23 12:05 13:00 13:00 16:07 Temp 37.2 Pulse 104 116 109 Resp 30 18 B/P (MAP) 128/73 (87) 97/63 (74) Pulse Ox 97 99 93 O2 Delivery Room Air Room Air Room Air 01/22/23 00:00 Intake Total 720 ml Output Total 2200 ml Balance -1480 ml Weight (Pounds): 124 Weight (Ounces): 0 Weight (Calculated Kilograms): 56.418765 Cardiovascular: regular rate-rhythm Neurologic/Psychiatric: alert, normal mood/affect, oriented x 3 Skin: No jaundice, No mottled, No pallor Results/Procedures: Labs Laboratory Tests 01/21/23 21:00: Glucometer 115H 01/21/23 21:09: Blood Gas Puncture Site RIGHT RADIAL, Blood Gas Patient Temperature 36.6, Arterial Blood pH 7.45H, Arterial Blood Partial Pressure CO2 37, Arterial Blood Partial Pressure O2 58L, Arterial Blood HCO3 26, Arterial Blood Total CO2 26.7, Arterial Blood Oxygen Saturation 91L, Arterial Blood Base Excess 1.8, Nestor Test YES-POS, Blood Gas Ventilator Setting NO, Blood Gas Inspired Oxygen 21% 01/22/23 03:42: Blood Gas Puncture Site RIGHT RADIAL, Blood Gas Patient Temperature UNKNOWN, Arterial Blood pH 7.47H, Arterial Blood Partial Pressure CO2 36, Arterial Blood Partial Pressure O2 71L, Arterial Blood HCO3 26, Arterial Blood Total CO2 26.8, Arterial Blood Oxygen Saturation 95, Arterial Blood Base Excess 2.3, Nestor Test YES-POS, Blood Gas Ventilator Setting NO, Blood Gas Inspired Oxygen ROOM AIR 01/22/23 05:05: White Blood Count 5.7, Red Blood Count 3.75L, Hemoglobin 12.2L, Hematocrit 37L, Mean Corpuscular Volume 99, Mean Corpuscular Hemoglobin 33, Mean Corpuscular Hemoglobin Concent 33, Red Cell Distribution Width 18.5H, Platelet Count 295, Mean Platelet Volume 9.5, Immature Granulocyte % (Auto) 1, Neutrophils (%) (Auto) 66, Lymphocytes (%) (Auto) 22, Monocytes (%) (Auto) 10, Eosinophils (%) (Auto) 1, Basophils (%) (Auto) 0, Neutrophils # (Auto) 3.8, Lymphocytes # (Auto) 1.3, Monocytes # (Auto) 0.6, Eosinophils # (Auto) 0.0, Basophils # (Auto) 0.0, Immature Granulocyte # (Auto) 0.1, Sodium Level 133L, Potassium Level 3.2L, Chloride Level 96L, Carbon Dioxide Level 23, Anion Gap 14, Blood Urea Nitrogen 11, Creatinine 0.57L, Estimat Glomerular Filtration Rate 105, BUN/Creatinine Ratio 19, Glucose Level 88, Calcium Level 8.6, Corrected Calcium 9.1, Phosphorus Level 3.2, Magnesium Level 1.9, Total Bilirubin 0.6, Aspartate Amino Transf (AST/SGOT) 25, Alanine Aminotransferase (ALT/SGPT) 24, Alkaline Phosphatase 76, Troponin I 0.066H, B-Type Natriuretic Peptide 172.0H, Total Protein 6.5, Albumin 3.4 01/22/23 11:18: Glucometer 93 Microbiology 01/17/23 Blood Culture - Preliminary, Resulted 01/17/23 Urine Culture - Final, Complete Citrobacter freundii complex Klebsiella pneumoniae Susceptibility To Follow 01/17/23 MRSA Screen - Final, Complete MRSA not isolated A/P: Assessment/Dx: Acute respiratory failure, likely COPD exacerbation and COVID-positive. History of CAD/CABG, borderline positive troponin. Mild acute on chronic congestive heart failure. Unclear whether this is systolic or diastolic. Plan: Acute respiratory failure likely COPD exacerbation and COVID-positive. Possible sepsis. Elevated lactate on admission. Defer to the primary team. History of CAD/CABG, borderline positive troponin which is getting better on serial examinations. coronary angiography done at [facility] in [place]. Coronary angiography was done on 01/06/2023. According to the daughter no PCI was done. Patient does have previous history of CABG. Continue dual antiplatelet therapy. Acute on chronic congestive heart failure. Echocardiogram pending. However significantly improved BNP. Unlikely significant congestive heart failure at this point in time. Focused Exam Time of Focused Exam: 10:10 Clinical Quality Measures Pneumonia: Pseudomonal Risk: COPD HCAP with risk for mulit-drug: Alf Resident (rehab) Urinary Catheter-Non SCIP Pts: Reason for Catheter Continuanc: Urinary Retention Marti LIZ MD Jan 22, 2023 17:12
[2023-01-22] MEDS ORDERED: DICLOFENAC 1% GEL 100 GM TUBE TP SCH (18:00)
[2023-01-22] MEDS: TAMSULOSIN 0.4 MG (FLOMAX) CAP PO SCH (18:02)
[2023-01-22] MEDS: FINASTERIDE 5 MG TABLET PO SCH (19:59)
[2023-01-22] MEDS: GENTAMICIN IV SCH (19:59)
[2023-01-22] MEDS: D5W IV SCH (19:59)
[2023-01-22 20:59] VITALS: BP 118/70
[2023-01-22 23:30] VITALS: BP 119/72
[2023-01-23] VITALS (8 sets, daily range): BP systolic 97–148; BP diastolic 63–76
[2023-01-23] MEDS: RT-ALBUTEROL HFA 8.5 GM INHALER IH SCH ×4 (02:43→21:12)
[2023-01-23] MEDS: HYDROcodone/ACETAMINOPHEN 10/325 TABLET PO SCH ×3 (04:30→20:01)
[2023-01-23] MEDS: GABAPENTIN 300 MG CAPSULE PO SCH ×3 (04:30→17:17)
[2023-01-23] MEDS: PANTOPRAZOLE 40 MG TABLET PO SCH ×2 (04:30→13:27)
--- NOTE | 2023-01-23 06:13 | Progress Note - Hospitalist ---
Subjective HPI/CC On Admission Date Seen by Provider: Jan 23, 2023 Time Seen by Provider: 12:00 CC: COVID induced acute hypoxic respiratory failure HPI: This is a 72yoWM clinic patient of [facility] who has had a lengthy complicated course for the past few weeks which included an [place] while on a [place] requiring [place] admit and significant debility requiring transfer via air ambulance to [facility] for recovery who presented to the ER with weakness and AMS and found to have resp failure from COVID. Subjective/Events-last exam Patient doing well Lungs are clear No more unresponsive episodes Daughter at the bedside She will appeal inpatient rehab denial Patient wants to go home Review of Systems General: Fatigue, Malaise Pulmonary: Dyspnea Focused Exam Time of Focused Exam: 10:10 Objective Exam Vital Signs Vital Signs Date Time Temp Pulse Resp B/P (MAP) Pulse Ox O2 Delivery O2 Flow Rate FiO2 01/23/23 15:05 36.7 92 95 21 01/23/23 14:59 Room Air 0.00 01/23/23 11:57 20 97/65 (76) Capillary Refill : General Appearance: No Apparent Distress, WD/WN, Chronically ill Respiratory: Lungs Clear, Normal Breath Sounds Cardiovascular: Regular Rate, Rhythm Neurologic/Psychiatric: Alert Results/Procedures Lab Laboratory Tests 01/23/23 06:30 Patient resulted labs reviewed. Imaging: Reviewed Imaging Films, Reviewed Imaging Report (noted L-hemidiaphram changes) Assessment/Plan Assessment and Plan Assess & Plan/Chief Complaint l Assessment: COVID PNA Acute hypoxic respiratory failure CAD Frail status Recent NSTEMI CABG hx Unresponsive episode of unknown source since chest x-ray labs and ABG were all normal Plan: Supportive care O2 prn Clinical Quality Measures DVT/VTE Prophylaxis Comfirm.Dx Mechanical not ordered: Pharmacological PPX Pneumonia: Pseudomonal Risk: COPD HCAP with risk for mulit-drug: Half-Way Resident (rehab) Urinary Catheter-Non SCIP Pts: Reason for Catheter Continuanc: Urinary Retention JUAN RAY DO Jan 23, 2023 06:13
[2023-01-23 07:04] LABS: BASOPHILS % (AUTO) 0 % (0-10); EOSINOPHILS # (AUTO) 0.1 10^3/uL (0.0-0.3); EOSINOPHILS % (AUTO) 2 % (0-10); HEMATOCRIT 34 % (40-54); LYMPHOCYTES % (AUTO) 21 % (12-44); MEAN CORPUSCULAR HEMOGLOBIN 32 pg (25-34); MEAN CORPUSCULAR HGB CONC 33 g/dL (32-36); MEAN CORPUSCULAR VOLUME 98 fL (80-99); MEAN PLATELET VOLUME 8.8 fL (9.0-12.2); MONOCYTES # (AUTO) 0.5 10^3/uL (0.0-1.0); MONOCYTES % (AUTO) 10 % (0-12); NEUTROPHILS % (AUTO) 66 % (42-75); PLATELET COUNT 273 10^3/uL (130-400); WHITE BLOOD COUNT 4.6 10^3/uL (4.3-11.0)
[2023-01-23 07:20] LABS: ALBUMIN 3.1 GM/DL (3.2-4.5); BILIRUBIN,TOTAL 0.5 MG/DL (0.1-1.0); CALCIUM 8.2 MG/DL (8.5-10.1); CREATININE SERUM 0.56 MG/DL (0.60-1.30); MAGNESIUM 1.9 MG/DL (1.6-2.4); POTASSIUM 3.4 MMOL/L (3.6-5.0); TOTAL PROTEIN 5.7 GM/DL (6.4-8.2)
[2023-01-23] MEDS: TIOTROPIUM INH 4 GM (SPIRIVA Respimat) IH SCH (08:21)
[2023-01-23] MEDS: CLOPIDOGREL 75 MG TABLET PO SCH (08:22)
[2023-01-23] MEDS: SENNOSIDES 8.6 MG TABLET PO SCH ×2 (08:22→20:00)
[2023-01-23] MEDS: FUROSEMIDE 40 MG TABLET PO SCH (08:22)
[2023-01-23] MEDS: ENOXAPARIN 30 MG/0.3 ML SYRINGE SC SCH (08:22)
[2023-01-23] MEDS: ASPIRIN enteric coated 81MG TABLET PO SCH (08:22)
[2023-01-23] MEDS: LIDOCAINE 4% PATCH TOP SCH (08:23)
[2023-01-23] MEDS: POTASSIUM CHLORIDE 10 MEQ TABLET PO SCH (08:23)
[2023-01-23] MEDS: LOSARTAN 25 MG TABLET PO SCH (08:23)
[2023-01-23] MEDS: DOCUSATE SODIUM 100 MG CAPSULE PO SCH ×2 (08:23→20:00)
[2023-01-23] MEDS: FLUTICASONE/VILANTEROL 200/25 MCG (7 DOSES) IH SCH (08:25)
[2023-01-23] MEDS: DICLOFENAC 1% GEL 50 GM TUBE TOP SCH ×4 (09:00→20:07)
[2023-01-23] MEDS: TAMSULOSIN 0.4 MG (FLOMAX) CAP PO SCH (17:17)
[2023-01-23] MEDS: FINASTERIDE 5 MG TABLET PO SCH (20:00)
[2023-01-23] MEDS: D5W IV SCH (20:01)
[2023-01-23] MEDS: GENTAMICIN IV SCH (20:01)
[2023-01-24] MEDS: GABAPENTIN 300 MG CAPSULE PO SCH ×5 (02:00→23:31)
[2023-01-24 03:52] VITALS: BP 103/71
[2023-01-24] MEDS: HYDROcodone/ACETAMINOPHEN 10/325 TABLET PO SCH ×3 (03:59→20:29)
[2023-01-24] MEDS: RT-ALBUTEROL HFA 8.5 GM INHALER IH SCH ×4 (04:04→21:40)
[2023-01-24] MEDS: PANTOPRAZOLE 40 MG TABLET PO SCH ×2 (05:46→13:21)
[2023-01-24 06:06] LABS: BASOPHILS % (AUTO) 0 % (0-10); EOSINOPHILS # (AUTO) 0.1 10^3/uL (0.0-0.3); EOSINOPHILS % (AUTO) 3 % (0-10); HEMATOCRIT 36 % (40-54); HEMOGLOBIN 11.7 g/dL (13.3-17.7); LYMPHOCYTES % (AUTO) 22 % (12-44); MEAN CORPUSCULAR HEMOGLOBIN 32 pg (25-34); MEAN CORPUSCULAR HGB CONC 33 g/dL (32-36); MEAN CORPUSCULAR VOLUME 98 fL (80-99); MEAN PLATELET VOLUME 8.8 fL (9.0-12.2); MONOCYTES # (AUTO) 0.5 10^3/uL (0.0-1.0); MONOCYTES % (AUTO) 12 % (0-12); NEUTROPHILS # (AUTO) 2.7 10^3/uL (1.8-7.8); NEUTROPHILS % (AUTO) 59 % (42-75); PLATELET COUNT 320 10^3/uL (130-400); WHITE BLOOD COUNT 4.5 10^3/uL (4.3-11.0)
[2023-01-24 06:36] LABS: ALBUMIN 3.3 GM/DL (3.2-4.5); BILIRUBIN,TOTAL 0.5 MG/DL (0.1-1.0); CALCIUM 8.4 MG/DL (8.5-10.1); CREATININE SERUM 0.68 MG/DL (0.60-1.30); MAGNESIUM 1.7 MG/DL (1.6-2.4); POTASSIUM 4.3 MMOL/L (3.6-5.0); TOTAL PROTEIN 6.1 GM/DL (6.4-8.2)
--- NOTE | 2023-01-24 07:30 | Physical Therapy Progress Note ---
Therapy Progress Note Patient transferred to ICU over the weekend due to unresponsive state. He has since been transferred back to [address] [place] [address]. PT will require new orders due to transfer to high level of care. GINNA BRIONES PT Jan 24, 2023 07:30
[2023-01-24 08:06] VITALS: BP 114/75
[2023-01-24] MEDS ORDERED: HYPOCHLOROUS ACID/NaCl WOUND SOLN 250 ML IR SCH (09:00)
[2023-01-24] MEDS: ASPIRIN enteric coated 81MG TABLET PO SCH (09:23)
[2023-01-24] MEDS: ENOXAPARIN 30 MG/0.3 ML SYRINGE SC SCH (09:23)
[2023-01-24] MEDS: CLOPIDOGREL 75 MG TABLET PO SCH (09:23)
[2023-01-24] MEDS: FUROSEMIDE 40 MG TABLET PO SCH (09:23)
[2023-01-24] MEDS: POTASSIUM CHLORIDE 10 MEQ TABLET PO SCH (09:23)
[2023-01-24] MEDS: LOSARTAN 25 MG TABLET PO SCH (09:24)
[2023-01-24] MEDS: SENNOSIDES 8.6 MG TABLET PO SCH ×2 (09:24→20:29)
[2023-01-24] MEDS: LIDOCAINE 4% PATCH TOP SCH (09:24)
[2023-01-24] MEDS: DOCUSATE SODIUM 100 MG CAPSULE PO SCH ×2 (09:24→20:29)
[2023-01-24] MEDS: DICLOFENAC 1% GEL 50 GM TUBE TOP SCH ×4 (09:25→20:29)
[2023-01-24] MEDS: FLUTICASONE/VILANTEROL 200/25 MCG (7 DOSES) IH SCH (09:36)
[2023-01-24] MEDS: TIOTROPIUM INH 4 GM (SPIRIVA Respimat) IH SCH (09:36)
--- NOTE | 2023-01-24 10:52 | Occ Therapy Progress Note ---
Therapy Progress Note Patient transferred to ICU over the weekend due to unresponsive state. He has since been transferred back to [address] [place] [address]. OT will require new orders due to transfer to high level of care and changes in medical status. QI COYLE OT Jan 24, 2023 10:52
[2023-01-24 11:41] VITALS: BP 117/64
--- NOTE | 2023-01-24 12:05 | Cardiology Progress Note ---
Subjective Date Seen by Provider: Jan 24, 2023 Time Seen by Provider: 10:00 Subjective/Events-last exam Patient sitting up in bed, no new complaints. Focused Exam Time of Focused Exam: 10:10 Objective-Cardiology Exam Last Set of Vital Signs Vital Signs 01/23/23 01/24/23 01/24/23 01/24/23 15:05 03:52 11:41 12:33 Temp 35.9 Pulse 97 Resp 16 B/P (MAP) 117/64 (81) Pulse Ox 95 O2 Delivery Room Air O2 Flow Rate 0.00 0.00 FiO2 21 I&O Intake and Output 01/24/23 00:00 Intake Total 3062 ml Output Total 2876 ml Balance 186 ml Intake Oral 3062 ml Output Urine Total 2875 ml Stool Total 1 ml General: Alert, Oriented X3, Cooperative HEENT: Atraumatic, PERRLA Lungs: Clear to Auscultation Heart: Regular Rate Abdomen: Normal Bowel Sounds Skin: No Rashes, No Significant Lesion Results Lab Laboratory Tests 01/24/23 05:54 A/P-Cardiology Admission Diagnosis Acute respiratory failure AE COPD Assessment/Plan Acute respiratory failure likely COPD exacerbation and COVID-positive. Possible sepsis. Elevated lactate on admission. Defer to the primary team. History of CAD/CABG, borderline positive troponin which is getting better on serial examinations. coronary angiography done at [facility] in [place]. Coronary angiography was done on 01/06/2023. According to the daughter no PCI was done. Patient does have previous history of CABG. Continue dual antiplatelet therapy. Acute on chronic congestive heart failure. Echocardiogram pending. However significantly improved BNP. Unlikely significant congestive heart failure at this point in time. Supervisory-Addendum Brief Supervisory Addendum Participated in pt care: history, MDM, physical Personally performed: exam, history, MDM Care discussed with: FRANCO Results interpretation: Verified all documentation Notes: Patient was seen and evaluated with Syed, examination performed, management plan was discussed, agree with the current scribed note, I made few changes to the note using Italic font Patient was seen at bedside, reporting improvement Conservative management is recommended, continue to monitor SYED OCONNOR Jan 24, 2023 12:05 OLEGARIO BOND MD Jan 24, 2023 13:03
[2023-01-24 15:30] VITALS: BP 93/54
--- NOTE | 2023-01-24 15:59 | Progress Note ---
Subjective Subjective/Events-last exam Spoke with patient and daughter at bedside. Pt states he is feeling a little better. He is still weak. He was going to go to inpatient rehab, but go sick and admitted first. Hoping to go to IRF at this time. 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) Neuro: Normal Speech Psych/Mental Status: Mental Status NL Results/Procedures Lab Laboratory Tests 01/24/23 05:54: White Blood Count 4.5, Red Blood Count 3.68L, Hemoglobin 11.7L, Hematocrit 36L, Mean Corpuscular Volume 98, Mean Corpuscular Hemoglobin 32, Mean Corpuscular Hemoglobin Concent 33, Red Cell Distribution Width 17.6H, Platelet Count 320, Mean Platelet Volume 8.8L, Immature Granulocyte % (Auto) 4, Neutrophils (%) (Auto) 59, Lymphocytes (%) (Auto) 22, Monocytes (%) (Auto) 12, Eosinophils (%) (Auto) 3, Basophils (%) (Auto) 0, Neutrophils # (Auto) 2.7, Lymphocytes # (Auto) 1.0, Monocytes # (Auto) 0.5, Eosinophils # (Auto) 0.1, Basophils # (Auto) 0.0, Immature Granulocyte # (Auto) 0.2H, Sodium Level 127L, Potassium Level 4.3, Chloride Level 94L, Carbon Dioxide Level 26, Anion Gap 7, Blood Urea Nitrogen 9, Creatinine 0.68, Estimat Glomerular Filtration Rate 99, BUN/Creatinine Ratio 13, Glucose Level 82, Calcium Level 8.4L, Corrected Calcium 9.0, Magnesium Level 1.7, Total Bilirubin 0.5, Aspartate Amino Transf (AST/SGOT) 22, Alanine Aminotransferase (ALT/SGPT) 21, Alkaline Phosphatase 76, Total Protein 6.1L, Albumin 3.3, Random Gentamicin Level 3.7 Microbiology 01/17/23 Blood Culture - Final, Complete 01/17/23 Urine Culture - Final, Complete Citrobacter freundii complex Klebsiella pneumoniae Susceptibility To Follow 01/17/23 MRSA Screen - Final, Complete MRSA not isolated Assessment/Plan Assessment/Plan (1) COVID-19 Status: Acute Assessment & Plan: Stable on room air. (2) COPD (chronic obstructive pulmonary disease) Status: Chronic (3) Urinary retention Status: Acute Assessment & Plan: Has had issues with retention since hospitalization in [place] with CAD and cath done and apparent hematoma after. Was intermittent straight cath at . [facility] in place at this time. Daughter reports they have Uro referral, just not sure when to schedule since he got sick again. (4) Coronary artery disease Status: Chronic Assessment & Plan: Appreciate Cardiology recommendations. History of CABG, reported no intervention with cath in [place] last month. Troponin elevated, trending down, not suspected to be acute [place]. BNP mildly elevated, echo pending. Qualifiers: Qualified Codes: I25.810 - Atherosclerosis of coronary artery bypass graft(s) without angina pectoris (5) Peripheral arterial disease Status: Chronic (6) Hyponatremia Status: Chronic Assessment & Plan: Chronic for years per daughter's report, daughter uncertain of baseline. In clinic last lab in August Na was 133. (7) Debility Status: Acute Assessment & Plan: Awaiting [place] for IRF. (8) DVT prophylaxis Status: Acute Assessment & Plan: Enoxaparin Clinical Quality Measures DVT/VTE Prophylaxis Comfirm.Dx Mechanical not ordered: Pharmacological PPX Pneumonia: Pseudomonal Risk: COPD HCAP with risk for mulit-drug: Long Term Resident (rehab) Urinary Catheter-Non SCIP Pts: Reason for Catheter Continuanc: Urinary Retention JAYSON ROBLEDO MD Jan 24, 2023 15:59
[2023-01-24] MEDS: TAMSULOSIN 0.4 MG (FLOMAX) CAP PO SCH (17:47)
[2023-01-24 19:41] VITALS: BP 95/61
[2023-01-24] MEDS: D5W IV SCH (20:29)
[2023-01-24] MEDS: GENTAMICIN IV SCH (20:29)
[2023-01-24] MEDS: FINASTERIDE 5 MG TABLET PO SCH (20:29)
[2023-01-24 23:32] VITALS: BP 101/72
[2023-01-25] MEDS: RT-ALBUTEROL HFA 8.5 GM INHALER IH SCH ×4 (02:09→21:20)
[2023-01-25 04:00] VITALS: BP 120/60
[2023-01-25] MEDS: GABAPENTIN 300 MG CAPSULE PO SCH ×3 (04:36→18:34)
[2023-01-25] MEDS: PANTOPRAZOLE 40 MG TABLET PO SCH ×2 (04:36→13:08)
[2023-01-25] MEDS: HYDROcodone/ACETAMINOPHEN 10/325 TABLET PO SCH ×3 (04:36→18:34)
[2023-01-25 06:04] LABS: BASOPHILS % (AUTO) 0 % (0-10); EOSINOPHILS # (AUTO) 0.2 10^3/uL (0.0-0.3); EOSINOPHILS % (AUTO) 3 % (0-10); HEMATOCRIT 34 % (40-54); HEMOGLOBIN 11.2 g/dL (13.3-17.7); LYMPHOCYTES # (AUTO) 1.1 10^3/uL (1.0-4.0); LYMPHOCYTES % (AUTO) 24 % (12-44); MEAN CORPUSCULAR HEMOGLOBIN 32 pg (25-34); MEAN CORPUSCULAR HGB CONC 33 g/dL (32-36); MEAN CORPUSCULAR VOLUME 96 fL (80-99); MEAN PLATELET VOLUME 8.6 fL (9.0-12.2); MONOCYTES # (AUTO) 0.6 10^3/uL (0.0-1.0); MONOCYTES % (AUTO) 12 % (0-12); NEUTROPHILS # (AUTO) 2.8 10^3/uL (1.8-7.8); NEUTROPHILS % (AUTO) 58 % (42-75); PLATELET COUNT 331 10^3/uL (130-400); WHITE BLOOD COUNT 4.7 10^3/uL (4.3-11.0)
[2023-01-25 06:28] LABS: ALBUMIN 3.3 GM/DL (3.2-4.5); BILIRUBIN,TOTAL 0.5 MG/DL (0.1-1.0); CALCIUM 8.3 MG/DL (8.5-10.1); CREATININE SERUM 0.64 MG/DL (0.60-1.30); MAGNESIUM 1.7 MG/DL (1.6-2.4); POTASSIUM 3.2 MMOL/L (3.6-5.0)
[2023-01-25] MEDS ORDERED: POTASSIUM CHLORIDE 20 MEQ TABLET PO NR ×2 (07:00→09:00)
--- NOTE | 2023-01-25 07:11 | Physical Therapy Progress Note ---
Therapy Progress Note Due to recent ICU transfer, PT will require new orders to resume therapy. GINNA BRIONES PT Jan 25, 2023 07:11
[2023-01-25 07:47] VITALS: BP 94/59
[2023-01-25] MEDS: FLUTICASONE/VILANTEROL 200/25 MCG (7 DOSES) IH SCH (09:45)
[2023-01-25] MEDS: TIOTROPIUM INH 4 GM (SPIRIVA Respimat) IH SCH (09:45)
[2023-01-25] MEDS: CLOPIDOGREL 75 MG TABLET PO SCH (10:06)
[2023-01-25] MEDS: SENNOSIDES 8.6 MG TABLET PO SCH ×2 (10:07→20:43)
[2023-01-25] MEDS: FUROSEMIDE 40 MG TABLET PO SCH (10:07)
[2023-01-25] MEDS: LOSARTAN 25 MG TABLET PO SCH (10:07)
[2023-01-25] MEDS: POTASSIUM CHLORIDE 10 MEQ TABLET PO SCH (10:07)
[2023-01-25] MEDS: ASPIRIN enteric coated 81MG TABLET PO SCH (10:07)
[2023-01-25] MEDS: ENOXAPARIN 30 MG/0.3 ML SYRINGE SC SCH (10:08)
[2023-01-25] MEDS: DOCUSATE SODIUM 100 MG CAPSULE PO SCH ×2 (10:08→20:43)
[2023-01-25] MEDS: DICLOFENAC 1% GEL 50 GM TUBE TOP SCH ×4 (10:09→20:54)
[2023-01-25] MEDS: LIDOCAINE 4% PATCH TOP SCH (10:09)
--- NOTE | 2023-01-25 10:52 | Cardiology Progress Note ---
Subjective Date Seen by Provider: Jan 25, 2023 Time Seen by Provider: 08:00 Subjective/Events-last exam Patient was seen at bedside, sitting comfortably, eating breakfast. No new complaint Focused Exam Time of Focused Exam: 10:10 Objective-Cardiology Exam Last Set of Vital Signs Vital Signs 01/23/23 01/24/23 01/25/23 01/25/23 01/25/23 15:05 21:00 07:47 09:46 09:47 Temp 36.1 Pulse 85 Resp 18 B/P (MAP) 94/59 (71) Pulse Ox 94 O2 Delivery Room Air O2 Flow Rate 0.00 FiO2 21 I&O Intake and Output 01/25/23 00:00 Intake Total 1520 ml Output Total 2250 ml Balance -730 ml Intake Oral 1520 ml Output Urine Total 2250 ml # Bowel Movements 1 General: Alert, Oriented X3, Cooperative, No Acute Distress HEENT: Atraumatic, PERRLA Lungs: Clear to Auscultation Heart: Regular Rate, Normal S1, Normal S2 Abdomen: Normal Bowel Sounds Extremities: No Clubbing, No Edema, Other (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 Improved, currently moved to medical floor No new complain History of CAD/CABG, borderline positive troponin which is getting better on serial examinations. coronary angiography done at [facility] in [place]. Coronary angiography was done on 01/06/2023. According to the daughter no PCI was done. Patient does have previous history of CABG. Continue dual antiplatelet therapy. Acute on chronic congestive heart failure. Echocardiogram pending. However significantly improved BNP. I will evaluate 2D echo once patient is off isolation Currently appears to be stable and does not require urgent echo OLEGARIO BOND MD Jan 25, 2023 10:52
[2023-01-25 11:42] VITALS: BP 110/63
--- NOTE | 2023-01-25 13:54 | Occupational Therapy Eval ---
OT Evaluation-General/PLF Medical Diagnosis Admission Date Jan 17, 2023 at 22:29 Medical Diagnosis: COVID-19 Onset Date: Jan 17, 2023 Therapy Diagnosis Therapy Diagnosis: weakness Height/Weight Height (Feet): 5 Height (Inches): 9.00 Weight (Pounds): 124 Weight (Ounces): 0 Precautions Precautions/Isolations: Airborne Isolation, Droplet Isolation, Fall Prevention, Standard Precautions Weight Bear Status Weight Bearing Restriction: Full Weight Bearing Referral Physician: Dr. Cano Referral Reason: Activity Tolerance, Self Care, Evaluation/Treatment Medical History Pertinent Medical History: Arthritis, CAD, COPD, GERD, HTN, Smoking Current History Patient admission to hospital 01/18/23. Transfer from ICU to medical floor to ICU and now returning to medical floor. Social History Home: Single Level Current Living Status: Alone Entry Into Home: Ramp ADL-Prior Level of Function SCALE: Activities may be completed with or without assistive devices. 9-Jfhvvvordq-jvfnftr completes the activity by him/herself with no assistance from a helper. 5-Set-up or Clean-up Assistance-helper sets up or cleans up; patient completes activity. [place] assists only prior to or following the activity. 4-Supervision or Touching Assistance-helper provides verbal cues and/or touching/steadying and/or contact guard assistance as patient completes activity. Assistance may be provided throughout the activity or intermittently. 3-Partial/Moderate Assistance-helper does LESS THAN HALF the effort. [place] lifts, holds or supports trunk or limbs, but provides less than half the effort. 2-Substantial/Maximal Assistance-helper does MORE THAN HALF the effort. [place] lifts or holds trunk or limbs and provides more than half the effort. 5-Xuukejmgf-hiolus does ALL the effort. Patient does none of the effort to complete the activity. Or, the assistance of 2 or more helpers is required for the patient to complete the activity. If activity was not attempted, code reason: 7-Patient Refused. 9-Not Applicable-not attempted and the patient did not perform the activity before the current illness, exacerbation or injury. 10-Not Attempted due to Environmental Limitations-(lack of equipment, weather restraints, etc.). 88-Not Attempted due to Medical Conditions or Safety Concerns. Self Care: Needed Some Help Functional Cognition: Needed Some Help DME/Equipment Comments Walker, WC Drive Self: No OT Current Status Subjective Wants to go home, wants out of isolation Pain Numeric Pain Scale: 4 Mental Status/Objective Patient Orientation: Person, Place, Time, Situation Attachments: Jimenez Catheter, Telemetry Current Glasses/Contacts: Yes Hearing Aids: No Hand Dominance: Right Upper Extremity ROM BUE ROM WFLS Upper Extremity Coordination mild ataxic movements Upper Extremity Strength +3/5 grossly ADL-Treatment Eating (QC): 5 Oral Hygiene (QC): 5 (performed in sitting) Shower/Bathe Self (QC): 7 Upper Body Dressing (QC): 4 Lower Body Dressing (QC): 4 On/Off Footwear (QC): 7 (Prosthesis on at arrival) Toileting Hygiene (QC): 7 (jimenez, denies need for BM) Education OT Patient Education: Correct positioning, Exercise program, Instructions to caregiver, Modified ADL techniques, Progress toward Goal/Update tx plan, Purpose of tx/functional activities, Reviewed precautions, Rehab process, Safety issues, Transfer techniques, Use of adapted equipment Teaching Recipient: Patient, Family (daughter) Response to Teaching: Verbalize Understanding, Return Demonstration, Reinforcement Needed OT Humanities Coordinator Goals Humanities Coordinator Goals Time Frame: Jan 24, 2023 Eating (QC): 6 Oral Hygiene (QC): 6 Toileting Hygiene (QC): 5 Shower/Bathe Self (QC): 4 Upper Body Dressing (QC): 5 Lower Body Dressing (QC): 5 On/Off Footwear (QC): 5 1=Demonstrate adherence to instructed precautions during ADL tasks. 2=Patient will verbalize/demonstrate understanding of assistive devices/modifications for ADL. 3=Patient will improve strength/tolerance for activity to enable patient to perform ADL's. OT Education/Plan Problem List/Assessment Assessment: Decreased Activ Tolerance, Decreased UE Strength, Impaired Coordination, Impaired Self-Care Skills Discharge Recommendations Plan/Recommendations: Continue POC Treatment Plan/Plan of Care Treatment,Training & Education: Yes Patient would benefit from OT for education, treatment and training to promote independence in ADL's, mobility, safety and/or upper extremity function for ADL's. Plan of Care: ADL Retraining, Functional Mobility, Group Exercise/Act as Ind, UE Funct Exercise/Act Treatment Duration: Jan 20, 2023 Frequency: 3 times per week (3-5xweek) Estimated Hrs Per Day: .25 hour per day Agreement: Yes Rehab Potential: Fair Time Start Time: 12:40 Stop Time: 13:00 DATE: Jan 25, 2023 Total Time Billed (hr/min): 20 Billed Treatment Time EVm 20 min QI COYLE OT Jan 25, 2023 13:54
--- NOTE | 2023-01-25 14:05 | Progress Note ---
Subjective Subjective/Events-last exam Afebrile, states he is feeling a little better, feeling good sitting up in chair. Focused Exam Time of Focused Exam: 10:10 Objective Exam Last Set of Vital Signs Vital Signs Date Time Temp Pulse Resp B/P (MAP) Pulse Ox O2 Delivery O2 Flow Rate FiO2 01/25/23 12:56 101 01/25/23 11:42 36.2 17 110/63 (79) 95 Room Air 01/24/23 21:00 0.00 01/23/23 15:05 21 Capillary Refill : I&O Intake and Output 01/25/23 00:00 Intake Total 1520 ml Output Total 2250 ml Balance -730 ml Intake Oral 1520 ml Output Urine Total 2250 ml # Bowel Movements 1 General: Alert, No Acute Distress Extremities: No Edema, Other (left lower leg amputation) Psych/Mental Status: Mood NL Results/Procedures Lab Laboratory Tests 01/25/23 05:54: White Blood Count 4.7, Red Blood Count 3.54L, Hemoglobin 11.2L, Hematocrit 34L, Mean Corpuscular Volume 96, Mean Corpuscular Hemoglobin 32, Mean Corpuscular Hemoglobin Concent 33, Red Cell Distribution Width 17.4H, Platelet Count 331, Mean Platelet Volume 8.6L, Immature Granulocyte % (Auto) 2, Neutrophils (%) (Auto) 58, Lymphocytes (%) (Auto) 24, Monocytes (%) (Auto) 12, Eosinophils (%) (Auto) 3, Basophils (%) (Auto) 0, Neutrophils # (Auto) 2.8, Lymphocytes # (Auto) 1.1, Monocytes # (Auto) 0.6, Eosinophils # (Auto) 0.2, Basophils # (Auto) 0.0, Immature Granulocyte # (Auto) 0.1, Sodium Level 132L, Potassium Level 3.2L, Chloride Level 98, Carbon Dioxide Level 25, Anion Gap 9, Blood Urea Nitrogen 9, Creatinine 0.64, Estimat Glomerular Filtration Rate 101, BUN/Creatinine Ratio 14, Glucose Level 94, Calcium Level 8.3L, Corrected Calcium 8.9, Magnesium Level 1.7, Total Bilirubin 0.5, Aspartate Amino Transf (AST/SGOT) 20, Alanine Aminotransferase (ALT/SGPT) 18, Alkaline Phosphatase 81, Total Protein 6.0L, Albumin 3.3 Microbiology 01/17/23 Blood Culture - Final, Complete 01/17/23 Urine Culture - Final, Complete Citrobacter freundii complex Klebsiella pneumoniae Susceptibility To Follow 01/17/23 MRSA Screen - Final, Complete MRSA not isolated Assessment/Plan Assessment/Plan (1) COVID-19 Status: Acute Assessment & Plan: Stable on room air. (2) COPD (chronic obstructive pulmonary disease) Status: Chronic (3) Urinary retention Status: Acute Assessment & Plan: Has had issues with retention since hospitalization in [place] with CAD and cath done and apparent hematoma after. Was intermittent straight cath at . [facility] in place at this time. Daughter reports they have Uro referral, just not sure when to schedule since he got sick again. (4) Coronary artery disease Status: Chronic Assessment & Plan: Appreciate Cardiology recommendations. History of CABG, reported no intervention with cath in [place] last month. Troponin elevated, trending down, not suspected to be acute [place]. BNP mildly elevated, echo pending. Qualifiers: Qualified Codes: I25.810 - Atherosclerosis of coronary artery bypass graft(s) without angina pectoris (5) Peripheral arterial disease Status: Chronic (6) Hyponatremia Status: Chronic Assessment & Plan: Chronic for years per daughter's report, daughter uncertain of baseline. In clinic last lab in August Na was 133. (7) Urinary tract infection Status: Acute Assessment & Plan: Citrobacter and multidrug resistant klebsiella- sensitive to gentamicin, completing course. Qualifiers: Qualified Codes: N30.00 - Acute cystitis without hematuria (8) Debility Status: Acute Assessment & Plan: Insurance denied IRF, family appealing, will re-eval based on PT today. (9) DVT prophylaxis Status: Acute Assessment & Plan: Enoxaparin Clinical Quality Measures DVT/VTE Prophylaxis Comfirm.Dx Mechanical not ordered: Pharmacological PPX Pneumonia: Pseudomonal Risk: COPD HCAP with risk for mulit-drug: [facility] Resident (rehab) Urinary Catheter-Non SCIP Pts: Reason for Catheter Continuanc: Urinary Retention JAYSON ROBLEDO MD Jan 25, 2023 14:05
--- NOTE | 2023-01-25 14:55 | Physical Therapy Evaluation ---
PT Evaluation-General Medical Diagnosis Admission Date Jan 17, 2023 at 22:29 Medical Diagnosis: COVID-19 Onset Date: Jan 17, 2023 Therapy Diagnosis Therapy Diagnosis: Gait Deficit, Strength deficit Height/Weight Height (Feet): 5 Height (Inches): 9.00 Weight (Pounds): 124 Weight (Ounces): 0 Precautions Precautions/Isolations: Airborne Isolation, Droplet Isolation, Fall Prevention, Standard Precautions Weight Bear Status Right Lower Extremity: Right Full Weight Bearing Left Lower Extremity: Left Full Weight Bearing Referral Physician: Dr. Cano Reason for Referral: Evaluation/Treatment Medical History Pertinent Medical History: Arthritis, CAD, COPD, GERD, HTN, Smoking Reviewed History: Yes Social History Home: Single Level Current Living Status: Alone Entry Into Home: Ramp Prior Prior Level of Function SCALE: Activities may be completed with or without assistive devices. 0-Xnszlfvfay-bdxbuie completes the activity by him/herself with no assistance from a helper. 5-Set-up or Clean-up Assistance-helper sets up or cleans up; patient completes activity. [place] assists only prior to or following the activity. 4-Supervision or Touching Assistance-helper provides verbal cues and/or touching/steadying and/or contact guard assistance as patient completes activity. Assistance may be provided throughout the activity or intermittently. 3-Partial/Moderate Assistance-helper does LESS THAN HALF the effort. [place] lifts, holds or supports trunk or limbs, but provides less than half the effort. 2-Substantial/Maximal Assistance-helper does MORE THAN HALF the effort. [place] lifts or holds trunk or limbs and provides more than half the effort. 7-Oztdibpkq-xzxunw does ALL the effort. Patient does none of the effort to complete the activity. Or, the assistance of 2 or more helpers is required for the patient to complete the activity. If activity was not attempted, code reason: 7-Patient Refused. 9-Not Applicable-not attempted and the patient did not perform the activity before the current illness, exacerbation or injury. 10-Not Attempted due to Environmental Limitations-(lack of equipment, weather restraints, etc.). 88-Not Attempted due to Medical Conditions or Safety Concerns. Bed Mobility: 6 Transfers (B,C,W/C): 6 Gait: 6 Indoor Mobility (Ambulation): Independent Stairs: Independent Prior Devices Use: Manual wheelchair, Walker PT Evaluation-Current Subjective Patient sitting in the chair upon PT arrival, agreeable to treatment. Patient rates pain at 5/10 currently in low back and legs. Objective Patient Orientation: Person, Place, Time, Situation Attachments: Michael Catheter ROM/Strength ROM Lower Extremities WFLs BLEs all planes Strength Lower Extremities 3+/5 BLEs All planes Sensory Vision: Functional Hearing: Impaired Hand Dominance: Right Sensation Right Lower Extremit: Intact Sensation Left Lower Extremity: Intact Transfers Roll Left to Right (QC): 3 Sit to Lying (QC): 3 Lying to Sitting/Side of Bed(Q: 3 Sit to Stand (QC): 3 Chair/Wlp-kp-Gieja Xfer(QC): 3 Gait Does the Patient Walk?: Yes Mode of Locomotion: Walk Anticipated Mode of Locomotion: Walk Walk 10 feet (QC): 4 Walk 50 ft with 2 Turns(QC): 4 Gait Assistive Device: FWW Balance Sitting Static: Fair Sitting Dynamic: Fair Standing Static: Fair Standing Dynamic: Fair Assessment/Needs Patient tolerated treatment well. He performs all bed mobility and transfers with SBA/CGA. Patient ambulates 80 feet with FWW, with CGA and verbal cues for safety, progression, posture and conservation of energy. Patient in chair post treatment with all needs met, nursing notified, call light in hand. Rehab Potential: Fair PT Assisted Goals Assisted Goals PT Assisted Goals Time Frame: Feb 12, 2023 Roll Left & Right (QC): 6 Sit to Lying (QC): 6 Lying-Sitting on Side/Bed(QC): 6 Sit to Stand (QC): 6 Chair/Cqp-or-Fuqyc Xfer(QC): 6 Toilet Transfer (QC): 6 Does the Patient Walk: Yes Walk 10 feet (QC): 6 Walk 50ft with 2 Turns (QC): 4 Walk 150 ft (QC): 4 PT Plan Problem List Problem List: Activity Tolerance, Functional Strength, Safety, Balance, Gait, Transfer, Bed Mobility, ROM Treatment/Plan Treatment Plan: Continue Plan of Care Treatment Plan: Bed Mobility, Education, Functional Activity Gonzalez, Functional Strength, Group Therapy, Gait, Safety, Therapeutic Exercise, Transfers Treatment Duration: Feb 12, 2023 Frequency: 6 times per week Estimated Hrs Per Day: .25 hour per day Patient and/or Family Agrees t: Yes Safety Risks/Education Patient Education: Gait Training, Transfer Techniques Teaching Recipient: Patient Teaching Methods: Demonstration, Discussion Response to Teaching: Verbalize Understanding, Return Demonstration Time Time In: 1428 Time Out: 1442 DATE: Jan 25, 2023 Total Billed Treatment Time: 14 Total Billed Treatment Visit, YOCASTA ROPER PT Jan 25, 2023 14:55
[2023-01-25] MEDS ORDERED: PHENOL THROAT SPRAY 177 ML LIQUID MC PRN (15:15)
[2023-01-25 15:43] VITALS: BP 77/51
[2023-01-25 16:15] VITALS: BP 110/68
[2023-01-25] MEDS: TAMSULOSIN 0.4 MG (FLOMAX) CAP PO SCH (18:34)
[2023-01-25] MEDS: GENTAMICIN IV SCH (18:34)
[2023-01-25] MEDS: D5W IV SCH (18:34)
[2023-01-25 20:12] VITALS: BP 102/69
[2023-01-25] MEDS: FINASTERIDE 5 MG TABLET PO SCH (20:53)
[2023-01-26] VITALS (8 sets, daily range): BP systolic 93–119; BP diastolic 62–68
[2023-01-26] MEDS: GABAPENTIN 300 MG CAPSULE PO SCH ×5 (00:09→23:56)
[2023-01-26] MEDS: RT-ALBUTEROL HFA 8.5 GM INHALER IH SCH ×4 (03:33→21:45)
[2023-01-26] MEDS: HYDROcodone/ACETAMINOPHEN 10/325 TABLET PO SCH ×3 (04:45→18:26)
[2023-01-26] MEDS: PANTOPRAZOLE 40 MG TABLET PO SCH ×2 (05:43→12:32)
[2023-01-26 06:34] LABS: ALBUMIN 3.2 GM/DL (3.2-4.5); POTASSIUM 3.3 MMOL/L (3.6-5.0)
[2023-01-26 06:35] LABS: CALCIUM 8.3 MG/DL (8.5-10.1)
[2023-01-26 06:36] LABS: BASOPHILS % (AUTO) 1 % (0-10); EOSINOPHILS # (AUTO) 0.2 10^3/uL (0.0-0.3); EOSINOPHILS % (AUTO) 3 % (0-10); HEMATOCRIT 34 % (40-54); HEMOGLOBIN 11.1 g/dL (13.3-17.7); LYMPHOCYTES % (AUTO) 20 % (12-44); MEAN CORPUSCULAR HEMOGLOBIN 32 pg (25-34); MEAN CORPUSCULAR HGB CONC 33 g/dL (32-36); MEAN CORPUSCULAR VOLUME 98 fL (80-99); MEAN PLATELET VOLUME 8.9 fL (9.0-12.2); MONOCYTES # (AUTO) 0.5 10^3/uL (0.0-1.0); MONOCYTES % (AUTO) 10 % (0-12); NEUTROPHILS # (AUTO) 3.2 10^3/uL (1.8-7.8); NEUTROPHILS % (AUTO) 64 % (42-75); PLATELET COUNT 359 10^3/uL (130-400); WHITE BLOOD COUNT 5.1 10^3/uL (4.3-11.0)
[2023-01-26 06:38] LABS: BILIRUBIN,TOTAL 0.5 MG/DL (0.1-1.0)
[2023-01-26 06:40] LABS: CREATININE SERUM 0.57 MG/DL (0.60-1.30)
[2023-01-26 06:43] LABS: MAGNESIUM 1.7 MG/DL (1.6-2.4)
[2023-01-26] MEDS ORDERED: POTASSIUM CHLORIDE 20 MEQ TABLET PO NR ×2 (07:30→10:00)
[2023-01-26] MEDS: LIDOCAINE 4% PATCH TOP SCH (09:04)
[2023-01-26] MEDS: LOSARTAN 25 MG TABLET PO SCH (09:05)
[2023-01-26] MEDS: CLOPIDOGREL 75 MG TABLET PO SCH (09:05)
[2023-01-26] MEDS: SENNOSIDES 8.6 MG TABLET PO SCH ×2 (09:05→21:54)
[2023-01-26] MEDS: DICLOFENAC 1% GEL 50 GM TUBE TOP SCH ×4 (09:05→21:55)
[2023-01-26] MEDS: DOCUSATE SODIUM 100 MG CAPSULE PO SCH ×2 (09:05→21:54)
[2023-01-26] MEDS: ENOXAPARIN 30 MG/0.3 ML SYRINGE SC SCH (09:05)
[2023-01-26] MEDS: ASPIRIN enteric coated 81MG TABLET PO SCH (09:05)
[2023-01-26] MEDS: POTASSIUM CHLORIDE 10 MEQ TABLET PO SCH (09:05)
[2023-01-26] MEDS: FUROSEMIDE 40 MG TABLET PO SCH (09:05)
[2023-01-26] MEDS: TIOTROPIUM INH 4 GM (SPIRIVA Respimat) IH SCH (10:44)
[2023-01-26] MEDS: FLUTICASONE/VILANTEROL 200/25 MCG (7 DOSES) IH SCH (10:44)
--- NOTE | 2023-01-26 11:56 | Occupational Ther Daily Note ---
OT Current Status-Daily Note Subjective Patient is frustrated w/ unknowing what sores in mouth are from and no-one addressing his pain. Patient also expressed frustration w/ not knowing isolation dates, wants to go home. Pain Numeric Pain Scale: 7 Location Body Site: Nose Mental Status/Objective Patient Orientation: Person, Place, Time, Situation ADL-Treatment OT offered intervention training w/ shower and patient daughter brought in person hygiene supplies, Patient refused shower stating that he is going home and will take a shower there. Agreed to stand at sink and wash face, arms, axilla area. Declined ajay area, OT washed back Therapy Code Descriptions/Definitions Functional [place] Measure: 0=Not Assessed/NA 4=Minimal Assistance 1=Total Assistance 5=Supervision or Setup 2=Maximal Assistance 6=Modified [place] 3=Moderate Assistance 7=Complete IndependenceSCALE: Activities may be completed with or without assistive devices. 0-Atedzptvqj-ztwnzly completes the activity by him/herself with no assistance from a helper. 5-Set-up or Clean-up Assistance-helper sets up or cleans up; patient completes activity. [place] assists only prior to or following the activity. 4-Supervision or Touching Assistance-helper provides verbal cues and/or touchin g/steadying and/or contact guard assistance as patient completes activity. Assistance may be provided throughout the activity or intermittently. 3-Partial/Moderate Assistance-helper does LESS THAN HALF the effort. [place] lifts, holds or supports trunk or limbs, but provides less than half the effort. 2-Substantial/Maximal Assistance-helper does MORE THAN HALF the effort. [place] lifts or holds trunk or limbs and provides more than half the effort. 4-Uqqsqsbrc-hdwqhk does ALL the effort. Patient does none of the effort to complete the activity. Or, the assistance of 2 or more helpers is required for the patient to complete the activity. If activity was not attempted, code reason: 7-Patient Refused. 9-Not Applicable-not attempted and the patient did not perform the activity before the current illness, exacerbation or injury. 10-Not Attempted due to Environmental Limitations-(lack of equipment, weather restraints, etc.). 88-Not Attempted due to Medical Conditions or Safety Concerns. Eating (QC): 5 (Recommended removing dentures following meal and rinsing mouth well to eliminate food debri from sores) Oral Hygiene (QC): 5 Bathing Location: L Arm, R Arm, Chest Ambulation from middle of room to window and progressed to bathroom w/ FWW. Patient required VCs to lock WC brake w/ transfer Education OT Patient Education: Correct positioning, Exercise program, Instructions to caregiver, Modified ADL techniques, Progress toward Goal/Update tx plan, Purpose of tx/functional activities, Reviewed precautions, Rehab process, Safety issues, Transfer techniques Teaching Recipient: Patient, Family (daughter) Teaching Methods: Demonstration, Discussion Response to Teaching: Verbalize Understanding, Reinforcement Needed OT Intermediate Goals Supervisor In Charge Goals Time Frame: Jan 24, 2023 Eating (QC): 6 Oral Hygiene (QC): 6 Toileting Hygiene (QC): 5 Shower/Bathe Self (QC): 4 Upper Body Dressing (QC): 5 Lower Body Dressing (QC): 5 On/Off Footwear (QC): 5 1=Demonstrate adherence to instructed precautions during ADL tasks. 2=Patient will verbalize/demonstrate understanding of assistive devices/modifications for ADL. 3=Patient will improve strength/tolerance for activity to enable patient to perform ADL's. OT Education/Plan Problem List/Assessment Assessment: Decreased Activ Tolerance, Impaired Self-Care Skills Discharge Recommendations Plan/Recommendations: Continue POC Treatment Plan/Plan of Care Treatment,Training & Education: Yes Patient would benefit from OT for education, treatment and training to promote independence in ADL's, mobility, safety and/or upper extremity function for ADL's. Plan of Care: ADL Retraining, Functional Mobility, Group Exercise/Act as Ind, UE Funct Exercise/Act Treatment Duration: Jan 20, 2023 Frequency: 3 times per week (3-5xweek) Estimated Hrs Per Day: .25 hour per day Agreement: Yes Rehab Potential: Fair Time Start Time: 11:18 Stop Time: 11:42 DATE: Jan 26, 2023 Total Time Billed (hr/min): 24 Billed Treatment Time 2 ADL 24 min QI COYLE OT Jan 26, 2023 11:56
--- NOTE | 2023-01-26 15:40 | Physical Therapy Daily Note ---
PT Daily Note-Current Subjective Patient sitting in w/c upon PT arrival, agreeable to treatment. Rates pain at 5-6/10 currently in low back and legs. Pain Section J - Health Conditions 1. Rarely or not at all 2. Occasionally 3. Frequently 4. Almost constantly 8. Unable to answer Pain Effect on Sleep: 8 Pain Interference with Therapy: 8 Pain Interference w/Day-to-Day: 8 Mental Status Patient Orientation: Person, Place, Time, Situation Transfers SCALE: Activities may be completed with or without assistive devices. 6-Zoihhjvcin-pvscwtm completes the activity by him/herself with no assistance from a helper. 5-Set-up or Clean-up Assistance-helper sets up or cleans up; patient completes activity. [place] assists only prior to or following the activity. 4-Supervision or Touching Assistance-helper provides verbal cues and/or touching/steadying and/or contact guard assistance as patient completes activity. Assistance may be provided throughout the activity or intermittently. 3-Partial/Moderate Assistance-helper does LESS THAN HALF the effort. [place] lifts, holds or supports trunk or limbs, but provides less than half the effort. 2-Substantial/Maximal Assistance-helper does MORE THAN HALF the effort. [place] lifts or holds trunk or limbs and provides more than half the effort. 0-Emigvitlk-vkomck does ALL the effort. Patient does none of the effort to complete the activity. Or, the assistance of 2 or more helpers is required for the patient to complete the activity. If activity was not attempted, code reason: 7-Patient Refused. 9-Not Applicable-not attempted and the patient did not perform the activity before the current illness, exacerbation or injury. 10-Not Attempted due to Environmental Limitations-(lack of equipment, weather restraints, etc.). 88-Not Attempted due to Medical Conditions or Safety Concerns. Sit to Stand (QC): 4 Chair/Ywy-gz-Ubjdz Xfer(QC): 4 Weight Bearing Right Lower Extremity: Right Full Weight Bearing Left Lower Extremity: Left Full Weight Bearing Gait Training Does the Patient Walk?: Yes Distance: 130' Walk 10 feet (QC): 4 Walk 50 ft with 2 Turns(QC): 4 Gait Assistive Device: FWW Assessment Current Status: Fair Progress Patient tolerated treatment well. He performs all observed transfers with SBA/CGA. Patient ambulates 130 feet with FWW with SBA/CGA in his room. Patient in w/c post treatment with all needs met, nursing notified, call light in reach. PT Tuber Machine Operator Helper Goals Tuber Machine Operator Helper Goals PT Care Home Goals Time Frame: Feb 12, 2023 Roll Left & Right (QC): 6 Sit to Lying (QC): 6 Lying-Sitting on Side/Bed(QC): 6 Sit to Stand (QC): 6 Chair/Jyg-dz-Vflyn Xfer(QC): 6 Toilet Transfer (QC): 6 Does the Patient Walk: Yes Walk 10 feet (QC): 6 Walk 50ft with 2 Turns (QC): 4 Walk 150 ft (QC): 4 PT Plan Treatment/Plan Treatment Plan: Continue Plan of Care Treatment Plan: Bed Mobility, Education, Functional Activity Gonzalez, Functional Strength, Group Therapy, Gait, Safety, Therapeutic Exercise, Transfers Treatment Duration: Feb 12, 2023 Frequency: 6 times per week Estimated Hrs Per Day: .25 hour per day Patient and/or Family Agrees t: Yes Safety Risks/Education Patient Education: Gait Training, Transfer Techniques Teaching Recipient: Patient Teaching Methods: Demonstration, Discussion Response to Teaching: Verbalize Understanding, Return Demonstration Time Time In: 1455 Time Out: 1510 DATE: Jan 26, 2023 Total Billed Treatment Time: 15 Total Billed Treatment Visit, GT YOCASTA STOCK PT Jan 26, 2023 15:40
[2023-01-26] MEDS: NYSTATIN ORAL SUSP 5 ML UDC PO SCH ×2 (16:12→21:54)
--- NOTE | 2023-01-26 17:11 | Cardiology Progress Note ---
Subjective Date Seen by Provider: Jan 26, 2023 Time Seen by Provider: 17:11 Subjective/Events-last exam Patient was seen at bedside, sitting comfortably, no new complain Focused Exam Time of Focused Exam: 10:10 Objective-Cardiology Exam Last Set of Vital Signs Vital Signs 01/23/23 01/26/23 01/26/23 15:05 04:59 15:59 Temp 36.5 Pulse 99 Resp 16 B/P (MAP) 93/62 (72) Pulse Ox 92 O2 Delivery Room Air O2 Flow Rate 0.00 0.00 FiO2 21 I&O Intake and Output 01/26/23 00:00 Intake Total 2830 ml Output Total 1850 ml Balance 980 ml Intake Oral 2720 ml IV Total 110 ml Output Urine Total 1850 ml # Bowel Movements 1 General: Alert, No Acute Distress HEENT: Atraumatic, PERRLA Lungs: Clear to Auscultation Heart: Regular Rate, Normal S1, Normal S2 Abdomen: Normal Bowel Sounds Extremities: No Edema, Other (left lower leg amputation) Skin: No Rashes, No Significant Lesion Neuro: Normal Speech Psych/Mental Status: Mood NL Results Lab Laboratory Tests 01/26/23 05:13 01/26/23 05:25 A/P-Cardiology Admission Diagnosis Acute respiratory failure AE COPD Assessment/Plan Status post acute respiratory failure likely COPD exacerbation and COVID- positive. Improved, currently moved to medical floor No new complain History of CAD/CABG, borderline positive troponin which is getting better on serial examinations. coronary angiography done at [facility] in [place]. Coronary angiography was done on 01/06/2023. According to the daughter no PCI was done. Patient does have previous history of CABG. Continue dual antiplatelet therapy. Acute on chronic congestive heart failure. Echocardiogram pending. However significantly improved BNP. I will evaluate 2D echo once patient is off isolation Currently appears to be stable and does not require urgent echo Hypokalemia, replace potassium and monitor electrolytes. OLEGARIO BOND MD Jan 26, 2023 17:11
[2023-01-26] MEDS: D5W IV SCH (18:26)
[2023-01-26] MEDS: GENTAMICIN IV SCH (18:26)
[2023-01-26] MEDS: TAMSULOSIN 0.4 MG (FLOMAX) CAP PO SCH (18:26)
--- NOTE | 2023-01-26 18:55 | Progress Note ---
Subjective Subjective/Events-last exam Pt seen at about 1340. Having a lot of oral pain he believes related to thrush. Can't tolerate dentures in. Is hoping to go home soon. Daughter at bedside reports he is transferring well and got to the bathroom okay. Focused Exam Time of Focused Exam: 10:10 Objective Exam Last Set of Vital Signs Vital Signs Date Time Temp Pulse Resp B/P (MAP) Pulse Ox O2 Delivery O2 Flow Rate FiO2 01/26/23 15:59 36.5 99 16 93/62 (72) 92 Room Air 01/26/23 04:59 0.00 0.00 01/23/23 15:05 21 Capillary Refill : I&O Intake and Output 01/26/23 00:00 Intake Total 2830 ml Output Total 1850 ml Balance 980 ml Intake Oral 2720 ml IV Total 110 ml Output Urine Total 1850 ml # Bowel Movements 1 General: Alert, No Acute Distress HEENT: Other (white patches on buccal mucosa and erythematous tongue) Neuro: Normal Speech Psych/Mental Status: Mood NL Results/Procedures Lab Laboratory Tests 01/26/23 05:13: White Blood Count 5.1, Red Blood Count 3.45L, Hemoglobin 11.1L, Hematocrit 34L, Mean Corpuscular Volume 98, Mean Corpuscular Hemoglobin 32, Mean Corpuscular Hemoglobin Concent 33, Red Cell Distribution Width 17.4H, Platelet Count 359, Mean Platelet Volume 8.9L, Immature Granulocyte % (Auto) 2, Neutrophils (%) (Auto) 64, Lymphocytes (%) (Auto) 20, Monocytes (%) (Auto) 10, Eosinophils (%) (Auto) 3, Basophils (%) (Auto) 1, Neutrophils # (Auto) 3.2, Lymphocytes # (Auto) 1.0, Monocytes # (Auto) 0.5, Eosinophils # (Auto) 0.2, Basophils # (Auto) 0.0, Immature Granulocyte # (Auto) 0.1 01/26/23 05:25: Sodium Level 132L, Potassium Level 3.3L, Chloride Level 97L, Carbon Dioxide Level 24, Anion Gap 11, Blood Urea Nitrogen 9, Creatinine 0.57L, Estimat Glomerular Filtration Rate 105, BUN/Creatinine Ratio 16, Glucose Level 86, Calc ium Level 8.3L, Corrected Calcium 8.9, Magnesium Level 1.7, Total Bilirubin 0.5, Aspartate Amino Transf (AST/SGOT) 20, Alanine Aminotransferase (ALT/SGPT) 16, Alkaline Phosphatase 72, Total Protein 6.0L, Albumin 3.2 Microbiology 01/17/23 Blood Culture - Final, Complete 01/17/23 Urine Culture - Final, Complete Citrobacter freundii complex Klebsiella pneumoniae Susceptibility To Follow 01/17/23 MRSA Screen - Final, Complete MRSA not isolated Assessment/Plan Assessment/Plan (1) COVID-19 Status: Acute Assessment & Plan: Stable on room air. In isolation for 21 days due to ICU stay. (2) COPD (chronic obstructive pulmonary disease) Status: Chronic (3) Urinary retention Status: Acute Assessment & Plan: Has had issues with retention since hospitalization in [place] with CAD and cath done and apparent hematoma after. Was intermittent straight cath at . [facility] in place at this time. Daughter reports they have Uro referral, just not sure when to schedule since he got sick again. 01/26 d/c [facility], can use straight cath as need, per daughter he was straight cathing independently prior to admit. (4) Coronary artery disease Status: Chronic Assessment & Plan: Appreciate Cardiology recommendations. History of CABG, reported no intervention with cath in [place] last month. Troponin elevated, trending down, not suspected to be acute [place]. BNP mildly elevated, echo pending after isolation d/c. Qualifiers: Qualified Codes: I25.810 - Atherosclerosis of coronary artery bypass graft(s) without angina pectoris (5) Peripheral arterial disease Status: Chronic (6) Hyponatremia Status: Chronic Assessment & Plan: Chronic for years per daughter's report, daughter uncertain of baseline. In clinic last lab in August Na was 133. (7) Urinary tract infection Status: Acute Assessment & Plan: Citrobacter and multidrug resistant klebsiella- sensitive to gentamicin, completing course. Qualifiers: Qualified Codes: N30.00 - Acute cystitis without hematuria (8) Debility Status: Acute Assessment & Plan: Insurance denied IRF, family appealed, he is doing fairly well with PT at this time and would like to go home with home health if possible, will determine tomorrow am, after monitoring urinary issues tonight and confirming HH with COVID precautions. (9) Thrush Status: Acute Assessment & Plan: Nystatin (10) DVT prophylaxis Status: Acute Assessment & Plan: Enoxaparin Clinical Quality Measures DVT/VTE Prophylaxis Comfirm.Dx Mechanical not ordered: Pharmacological PPX Pneumonia: Pseudomonal Risk: COPD HCAP with risk for mulit-drug: [facility] Res[facility] (rehab) Urinary Catheter-Non SCIP Pts: Reason for Catheter Continuanc: Urinary Retention JAYSON ROBLEDO MD Jan 26, 2023 18:55
[2023-01-26] MEDS: FINASTERIDE 5 MG TABLET PO SCH (21:54)
[2023-01-27] MEDS: RT-ALBUTEROL HFA 8.5 GM INHALER IH SCH ×2 (02:47→08:53)
[2023-01-27] MEDS: HYDROcodone/ACETAMINOPHEN 10/325 TABLET PO SCH ×2 (03:30→11:50)
[2023-01-27] MEDS: NYSTATIN ORAL SUSP 5 ML UDC PO SCH ×2 (03:30→08:49)
[2023-01-27 04:50] VITALS: BP 100/64
[2023-01-27 06:16] LABS: BASOPHILS % (AUTO) 1 % (0-10); EOSINOPHILS # (AUTO) 0.2 10^3/uL (0.0-0.3); EOSINOPHILS % (AUTO) 3 % (0-10); HEMATOCRIT 32 % (40-54); HEMOGLOBIN 10.6 g/dL (13.3-17.7); LYMPHOCYTES # (AUTO) 1.2 10^3/uL (1.0-4.0); LYMPHOCYTES % (AUTO) 21 % (12-44); MEAN CORPUSCULAR HEMOGLOBIN 32 pg (25-34); MEAN CORPUSCULAR HGB CONC 33 g/dL (32-36); MEAN CORPUSCULAR VOLUME 98 fL (80-99); MEAN PLATELET VOLUME 8.7 fL (9.0-12.2); MONOCYTES # (AUTO) 0.7 10^3/uL (0.0-1.0); MONOCYTES % (AUTO) 12 % (0-12); NEUTROPHILS # (AUTO) 3.6 10^3/uL (1.8-7.8); NEUTROPHILS % (AUTO) 62 % (42-75); PLATELET COUNT 355 10^3/uL (130-400); WHITE BLOOD COUNT 5.8 10^3/uL (4.3-11.0)
[2023-01-27] MEDS: GABAPENTIN 300 MG CAPSULE PO SCH ×2 (06:19→11:50)
[2023-01-27] MEDS: PANTOPRAZOLE 40 MG TABLET PO SCH (06:19)
[2023-01-27 06:25] LABS: ALBUMIN 3.2 GM/DL (3.2-4.5); BILIRUBIN,TOTAL 0.5 MG/DL (0.1-1.0); CALCIUM 8.2 MG/DL (8.5-10.1); CREATININE SERUM 0.64 MG/DL (0.60-1.30); POTASSIUM 3.9 MMOL/L (3.6-5.0); TOTAL PROTEIN 5.9 GM/DL (6.4-8.2)
[2023-01-27 07:26] VITALS: BP 105/67
[2023-01-27] MEDS: ASPIRIN enteric coated 81MG TABLET PO SCH (08:49)
[2023-01-27] MEDS: FUROSEMIDE 40 MG TABLET PO SCH (08:49)
[2023-01-27] MEDS: LIDOCAINE 4% PATCH TOP SCH (08:49)
[2023-01-27] MEDS: LOSARTAN 25 MG TABLET PO SCH (08:49)
[2023-01-27] MEDS: POTASSIUM CHLORIDE 10 MEQ TABLET PO SCH (08:49)
[2023-01-27] MEDS: DICLOFENAC 1% GEL 50 GM TUBE TOP SCH ×2 (08:49→11:59)
[2023-01-27] MEDS: CLOPIDOGREL 75 MG TABLET PO SCH (08:49)
[2023-01-27] MEDS: DOCUSATE SODIUM 100 MG CAPSULE PO SCH (08:49)
[2023-01-27] MEDS: SENNOSIDES 8.6 MG TABLET PO SCH (08:49)
[2023-01-27] MEDS: ENOXAPARIN 30 MG/0.3 ML SYRINGE SC SCH (08:50)
[2023-01-27] MEDS: FLUTICASONE/VILANTEROL 200/25 MCG (7 DOSES) IH SCH (08:53)
[2023-01-27] MEDS: TIOTROPIUM INH 4 GM (SPIRIVA Respimat) IH SCH (08:53)
--- NOTE | 2023-01-27 09:05 | Cardiology Progress Note ---
Subjective Date Seen by Provider: Jan 27, 2023 Time Seen by Provider: 09:04 Subjective/Events-last exam Patient was seen at bedside, sitting comfortably, eating breakfast. Still having some sore throat Focused Exam Time of Focused Exam: 10:10 Objective-Cardiology Exam Last Set of Vital Signs Vital Signs 01/23/23 01/26/23 01/27/23 15:05 04:59 07:26 Temp 36.4 Pulse 94 Resp 18 B/P (MAP) 105/67 (80) Pulse Ox 94 O2 Delivery Room Air O2 Flow Rate 0.00 0.00 FiO2 21 I&O Intake and Output 01/27/23 00:00 Intake Total 1692 ml Output Total 1350 ml Balance 342 ml Intake Oral 1692 ml Output Urine Total 1350 ml # Voids 1 General: Alert, Oriented X3, Cooperative, No Acute Distress HEENT: Atraumatic, Other (white patches on buccal mucosa and erythematous tongue) Lungs: Clear to Auscultation Heart: Regular Rate, Normal S1, Normal S2 Abdomen: Normal Bowel Sounds Extremities: No Clubbing, No Edema, Other (left lower leg amputation) Skin: No Rashes, No Significant Lesion Neuro: Normal Speech Psych/Mental Status: Mental Status NL, Mood NL Results Lab Laboratory Tests 01/27/23 05:17 A/P-Cardiology Admission Diagnosis Acute respiratory failure AE COPD Assessment/Plan Status post acute respiratory failure likely COPD exacerbation and COVID- positive. Improved, currently moved to medical floor No new complain History of CAD/CABG, borderline positive troponin which is getting better on serial examinations. coronary angiography done at [facility] in [place]. Coronary angiography was done on 01/06/2023. According to the daughter no PCI was done. Patient does have previous history of CABG. Continue dual antiplatelet therapy. Acute on chronic congestive heart failure. Echocardiogram pending. However significantly improved BNP. I will evaluate 2D echo once patient is off isolation Currently appears to be stable and does not require urgent echo Hypokalemia, replace potassium and monitor electrolytes. Oral thrush, managed by medical team OLEGARIO BOND MD Jan 27, 2023 09:05
[2023-01-27 11:22] VITALS: BP 105/65
[2023-01-27] MEDS ORDERED: [UNRECOGNIZED DRUG - CODE] MC (11:56)
[2023-01-27] MEDS ORDERED: IPRA3AMP31 IH (11:56)
[2023-01-27] MEDS ORDERED: NYST1000 PO (11:56)
--- NOTE | 2023-01-27 11:59 | D/C HH Face to Face Order ---
D/C Face to Face Orders Reconcile Patient Problems Problems Reviewed?: Yes Instructions for Patient Via Samantha Shippter, Patient Instructions/FollowUp: Follow up with PCP in 1-2 weeks Physician to follow Patient: LINDA Discharge Diet for Home: No Restrictions Patient Problems: COVID, Respiratory Failure Patient Data-Allergies,Ht & Wt Patient Allergies: Coded Allergies: No Known Drug Allergies (Unverified , 03/08/18) Height (Feet): 5 Height (Inches): 9.00 Weight (Pounds): 124 Weight (Ounces): 0 Home Health Need/Face to Face Date of Face to Face: Jan 27, 2023 Clinical Findings: Generalized weakness and fatigue, Shortness of breath I have seen Pt [id number]: Yes Discharged To: Home Diagnosis/Conditions: COVID, COPD, urinary retention Patient is Homebound due to: Price fall risk due to instabilty, Shortness of breath/distress Homebound Status Due to the above stated illness, injury or surgical procedure (medical condition or diagnosis) and associated clinical findings, the patient is homebound because of his/her inability to leave home except with aid of a supportive device and/or person AND leaving the home requires a considerable and taxing effort or is medically contraindicated. Pt req the following assistanc: Aid of another person, Wheelchair Home Health Nursing Orders Home Health Services Order: Nursing Services, [employer]-Evaluate & Treat, Physical Therapy-Evaluate & Treat Home Health Infusion Therapy Line Start Date: Jan 17, 2023 Certify Stmt I certify that this patient is under my care and that I, a nurse practitioner or a physician; a family service assistant working with me, had a face to face encounter that - meets the physician face to face encounter requirements with this patient as dated. JAYSON ROBLEDO MD Jan 27, 2023 11:59
[2023-01-27 12:55] VITALS: BP 105/65
[2023-01-27] MEDS ORDERED: LOSA25TA41 PO (15:35)
--- NOTE | 2023-01-27 21:52 | Discharge Summary ---
Discharge Summary Hospital Course Problems/Diagnosis: (1) COVID-19 Status: Acute Assessment & Plan: Initially requiring bipap, treated with dexamethasone. At time of d/c, stable on room air. In isolation for 21 days due to ICU stay. (2) COPD (chronic obstructive pulmonary disease) Status: Chronic (3) Urinary retention Status: Acute Assessment & Plan: Has had issues with retention since hospitalization in [place] with CAD and cath done and apparent hematoma after. Was intermittent straight cath at . [facility] in place at this time. Daughter reports they have Uro referral, just not sure when to schedule since he got sick again. 01/26 d/c [facility], can use straight cath as need, per daughter he was straight ca thing independently prior to admit. Script for catheters sent on d/c. (4) Coronary artery disease Status: Chronic Assessment & Plan: Appreciate Cardiology recommendations. History of CABG, r eported no intervention with cath in [place] last month. Troponin elevated, trending down, not suspected to be acute [place]. BNP mildly elevated, echo pending after isolation d/c, may need as outpatient. Qualifiers: Qualified Codes: I25.810 - Atherosclerosis of coronary artery bypass graft(s) without angina pectoris (5) Peripheral arterial disease Status: Chronic (6) Hyponatremia Status: Chronic Assessment & Plan: Chronic for years per daughter's report, daughter uncertain of baseline. In clinic last lab in August Na was 133. (7) Urinary tract infection Status: Resolved Resolution Date/Time: 01/27/23 @ 21:47 Assessment & Plan: Citrobacter and multidrug resistant klebsiella- sensitive to gentamicin, treated. Qualifiers: Qualified Codes: N30.00 - Acute cystitis without hematuria (8) Debility Status: Acute Assessment & Plan: Insurance initially denied IRF, family appealed, he is doing fairly well with PT at this time and would like to go home with home health if possible, recommend IRF given it was approved, however he did prefer to go home with home health and this was done. (9) Thrush Status: Acute Assessment & Plan: Nystatin Hospital Course Date of Admission: Jan 17, 2023 at 22:29 Admission Diagnosis : Acute respiratory failure COVID19 Elevated troponin Family Physician/Provider: [place]/On License Of [facility] Date of Discharge: 01/27/23 Discharge Diagnosis: SEe problem list Hospital Course: See problem list Labs and Pending Lab Test: Laboratory Tests 01/27/23 05:17: White Blood Count 5.8, Red Blood Count 3.30L, Hemoglobin 10.6L, Hematocrit 32L, Mean Corpuscular Volume 98, Mean Corpuscular Hemoglobin 32, Mean Corpuscular Hemoglobin Concent 33, Red Cell Distribution Width 17.2H, Platelet Count 355, Mean Platelet Volume 8.7L, Immature Granulocyte % (Auto) 1, Neutrophils (%) (Auto) 62, Lymphocytes (%) (Auto) 21, Monocytes (%) (Auto) 12, Eosinophils (%) (Auto) 3, Basophils (%) (Auto) 1, Neutrophils # (Auto) 3.6, Lymphocytes # (Auto) 1.2, Monocytes # (Auto) 0.7, Eosinophils # (Auto) 0.2, Basophils # (Auto) 0.0, Immature Granulocyte # (Auto) 0.1, Sodium Level 130L, Potassium Level 3.9, Chloride Level 97L, Carbon Dioxide Level 26, Anion Gap 7, Blood Urea Nitrogen 8, Creatinine 0.64, Estimat Glomerular Filtration Rate 101, BUN/Creatinine Ratio 13, Glucose Level 90, Calcium Level 8.2L, Corrected Calcium 8.8, Magnesium Level 3.0H, Total Bilirubin 0.5, Aspartate Amino Transf (AST/SGOT) 20, Alanine Aminotransferase (ALT/SGPT) 16, Alkaline Phosphatase 68, Total Protein 5.9L, Albumin 3.2 Microbiology 01/17/23 Blood Culture - Final, Complete 01/17/23 Urine Culture - Final, Complete Citrobacter freundii complex Klebsiella pneumoniae Susceptibility To Follow 01/17/23 MRSA Screen - Final, Complete MRSA not isolated Home Meds Active Losartan Potassium 25 Mg Tablet 25 Mg PO DAILY HOLD AND NOTIFY NURSE/PCP IF BP <80/50 OR >180 Curity Urethral Catheter (Catheter) 14 Fr Each Each MC TID PRN Nystatin 100,000 Unit/Ml Oral.susp 5 Ml PO Q6H Iprat-Albut 0.5-3(2.5) mg/3 ml (Ipratropium/Albuterol Sulfate) 0.5 Mg-3 Mg (2.5 Mg Base)/3 Ml Ampul.neb 3 Ml IH TID PRN Tramadol HCl 50 Mg Tablet 50 Mg PO Q8H PRN 30 Days Breo Ellipta 200-25 Mcg INH (Fluticasone/Vilanterol) 200 Mcg-25 Mcg/Dose Blst.w.dev 1 Each IH DAILY 30 Days Neurontin (Gabapentin) 300 Mg Capsule 300 Mg PO Q6H 30 Days Finasteride 5 Mg Tablet 5 Mg PO HS 30 Days Docusate Sodium 100 Mg Capsule 100 Mg PO BID 30 Days Atorvastatin Calcium 40 Mg Tablet 40 Mg PO HS 30 Days Reported Venelex Ointment ([place] Oil) 60 Gm Oint...g. 1 Applic TP Q6H Hydrocodone-Acetamin 10-325 mg (Hydrocodone/Acetaminophen) 10 Mg-325 Mg Tablet 1 Each PO Q8H Diclofenac Sodium 1 % Gel..gram. 1 Applic TP 0000,0600,1200,1800 Lansoprazole 30 Mg Capsule.dr 30 Mg PO 0600,1400 Flomax (Tamsulosin HCl) 0.4 Mg Cap 0.8 Mg PO 1800 TAKES 2 (0.4MG) CAPS Lidocaine 4 % Adh..patch 1 Each TP DAILY USE FOR 14 DAYS- STOP DATE 01-27-2023 Aspirin EC (Aspirin) 81 Mg Tablet.dr 81 Mg PO DAILY Lasix (Furosemide) 40 Mg Tablet 40 Mg PO DAILY Cyclobenzaprine HCl 10 Mg Tablet 10 Mg PO 0600,1000,1400 Potassium Chloride 10 Meq Tab.er.prt 10 Meq PO DAILY Clopidogrel (Clopidogrel Bisulfate) 75 Mg Tablet 75 Mg PO DAILY Assessment/Pt DC Instructions Follow up with Dr. Ervin next week as planned to establish care. Discharge Diet: Cardiac Diet Activity as Tolerated: Yes Discharge Physical Examination Allergies: Coded Allergies: No Known Drug Allergies (Unverified , 03/08/18) General Appearance: No Apparent Distress Extremity: Other (left lower leg amputation/prosthetic in place) Neurologic/Psychiatric: Alert, Normal Mood/Affect Clinical Quality Measures DVT/VTE Prophylaxis Comfirm.Dx Mechanical not ordered: Pharmacological PPX Pneumonia: Pseudomonal Risk: COPD HCAP with risk for mulit-drug: [facility] Resident (rehab) Urinary Catheter-Non SCIP Pts: Reason for Catheter Continuanc: Urinary Retention JAYSON ROBLEDO MD Jan 27, 2023 21:52
== END 2023-01-27 12:55 | disposition home health service (06) | DRG 177 ==
LOC: EDUNIT# 20:04 → ER 20:06 → ICU 22:29 → 4TH 01-20 14:34 → ICU 01-21 20:40 → 4TH 01-22 14:16
PROVIDERS: ADMIT Internal Medicine; ATTEND Family Medicine
PROC: 8E0ZXY6 Isolation (ICD-10-PCS; principal; 2023-01-17)
PROC: 5A09357 Assistance with Respiratory Ventilation, Less than 24 Consecutive Hours, Continuous Positive Airway Pressure (ICD-10-PCS; 2023-01-17)
PROC: 5A0935A Assistance with Respiratory Ventilation, Less than 24 Consecutive Hours, High Flow/Velocity Cannula (ICD-10-PCS; 2023-01-17)
DX: U07.1 COVID-19 (principal); J12.82 Pneumonia due to coronavirus disease 2019; J96.01 Acute respiratory failure with hypoxia; J44.0 Chronic obstructive pulmonary disease with (acute) lower respiratory infection; N39.0 Urinary tract infection, site not specified; J44.1 Chronic obstructive pulmonary disease with (acute) exacerbation; B37.0 Candidal stomatitis; I25.2 Old myocardial infarction; I25.10 Atherosclerotic heart disease of native coronary artery without angina pectoris; Z95.1 Presence of aortocoronary bypass graft; Z79.82 Long term (current) use of aspirin; Z79.899 Other long term (current) drug therapy; Z87.891 Personal history of nicotine dependence; I50.9 Heart failure, unspecified; I11.0 Hypertensive heart disease with heart failure; M19.90 Unspecified osteoarthritis, unspecified site; G89.29 Other chronic pain; M54.9 Dorsalgia, unspecified; E78.00 Pure hypercholesterolemia, unspecified; K59.00 Constipation, unspecified; K21.9 Gastro-esophageal reflux disease without esophagitis; I65.29 Occlusion and stenosis of unspecified carotid artery; Z89.512 Acquired absence of left leg below knee; E87.6 Hypokalemia
CPT/HCPCS: 36415; 36600; 51702; 70450; 71045; 80053; 80061; 80170; 81000; 82550; 82805; 82947; 83605; 83735; 83874; 83880; 84100; 84484; 85007; 85025; 85027; 85610; 85730; 86141; 87040; 87077; 87081; 87088; 87186; 87636; 93005; 93041; 94640; 94660; 94664; 94760; 96365; 96375

== ENCOUNTER 2023-01-31 17:17 | Inpatient (IN) | payer MEDICARE, MEDICAID ==
[~2023-01-31] VITALS: Ht 175.3 cm; Wt 55.8 kg
[~2023-01-31 17:17] MED LIST changes: +ASPI-1238 PO; +ATOR40TA70 PO; +BALS60OI TP; +DICL100G60 TP; +DOCU100C37 PO; +ERYT-108 PO; +FINA5TAB6 PO; +FLUT1BLS IH; +GABA300C PO; +IPRA3AMP31 IH; +LIDO1ADH66 TP; +LIDO1ADH78 TP; +LOSA25TA41 PO; +NYST1000 PO; +TMSL.4C PO; +VALS40TA9 PO; +[UNRECOGNIZED DRUG - CODE] MC
[2023-01-31] MEDS ORDERED: NS IV 1000 ML 1,000 ML IV STA (17:41)
--- NOTE | 2023-01-31 17:41 | ED Dyspnea ---
General Chief Complaint: General Problems/Pain Stated Complaint: FEVER, CONGESTION, FATIQUE, COUGH Source of Information: Patient Exam Limitations: No Limitations (ROSA JONAS) History of Present Illness Date Seen by Provider: Jan 31, 2023 Time Seen by Provider: 17:37 Initial Comments Patient is a 72-year-old male with a history of COPD, coronary artery disease who presents ED with fatigue, fever, cough and congestion. Symptoms started l ast night. Patient states he feels congested. Reports a wet cough difficulty catching his breath. Temperature of 101. Has been feeling really fatigued and weak over the past day. Was recently discharge from our facility January 27 secondary to COVID with respiratory failure. Was evaluated by cardiology found to have a slight elevated BNP. Recent heart attack this past month was treated conservatively. Patient is not currently on any antibiotics or steroids. Has been using nebulizer breathing treatment without much improvement. Denies any vomiting, diarrhea. Patient found to have a low blood pressure today at home. Normotensive on arrival. Patient does straight cath. Decreased urine output. States he is having unsuccessful attempts with straight cath. Patient denies nausea, vomiting, diarrhea, headache, chest pain, headache, abdominal pain, sore throat. Patient is on Plavix. (ROSA JONAS) Allergies and Home Medications Allergies Coded Allergies: No Known Drug Allergies (Unverified , 03/08/18) Patient Home Medication List Home Medication List Reviewed: Yes (ROSA JONAS) Aspirin (Aspirin EC) 81 Mg Tablet.dr, 81 MG PO DAILY Prescribed by: JUAN RAY on 02/04/23523 Atorvastatin Calcium (Atorvastatin Calcium) 40 Mg Tablet, 40 MG PO HS Prescribed by: JUAN RAY on 02/04/23523 Cilostazol (Cilostazol) 100 Mg Tablet, 100 MG PO BID Prescribed by: JUAN RAY on 02/04/23523 Clopidogrel Bisulfate (Clopidogrel) 75 Mg Tablet, 75 MG PO DAILY Prescribed by: JUAN RAY on 02/04/23523 Docusate Sodium (Docusate Sodium) 100 Mg Capsule, 100 MG PO BID Prescribed by: JUAN RAY on 02/04/23523 Finasteride (Finasteride) 5 Mg Tablet, 5 MG PO HS Prescribed by: JUAN RAY on 02/04/23523 Fluticasone Propionate (Fluticasone Propionate) 50 Mcg/Actuation [place].susp, 0 SPRAY NS DAILY Prescribed by: JUAN RAY on 02/04/23523 Fluticasone/Vilanterol (Breo Ellipta 200-25 Mcg INH) 200 Mcg-25 Mcg/Dose Blst.w.dev, 1 EACH IH DAILY Prescribed by: JUAN RAY on 02/04/23523 Furosemide (Lasix) 40 Mg Tablet, 40 MG PO DAILY Prescribed by: JUAN RAY on 02/04/23523 Hydrocodone/Acetaminophen (Hydrocodone-Acetamin 10-325 mg) 10 Mg-325 Mg Tablet, 1 EACH PO Q8H PRN for PAIN-MODERATE (5-7) Prescribed by: JUAN RAY on 02/04/23524 Ipratropium/Albuterol Sulfate (Iprat-Albut 0.5-3(2.5) mg/3 ml) 0.5 Mg-3 Mg (2.5 Mg Base)/3 Ml Ampul.neb, 3 ML IH TID PRN for SHORTNESS OF BREATH Prescribed by: JUAN RAY on 02/04/23523 Lansoprazole (Lansoprazole) 30 Mg Capsule.dr, 30 MG PO 0600,1400 Prescribed by: JUAN RAY on 02/04/23523 Losartan Potassium (Losartan Potassium) 25 Mg Tablet, 25 MG PO DAILY Prescribed by: JUAN RAY on 02/04/23523 Nystatin (Nystatin) 100,000 Unit/Ml Oral.susp, 5 ML PO Q6H Prescribed by: JUAN RAY on 02/04/23523 Potassium Chloride (Potassium Chloride) 10 Meq Tab.er.prt, 20 MEQ PO DAILY Prescribed by: JUAN RAY on 02/04/23523 Tamsulosin HCl (Flomax) 0.4 Mg Cap, 0.8 MG PO 1800 Prescribed by: JUAN RAY on 02/04/23523 Tiotropium Trent (Spiriva) 18 Mcg Aerp, 1 INH IH DAILY Prescribed by: JUAN RAY on 02/04/23523 Tramadol HCl (Tramadol HCl) 50 Mg Tablet, 50 MG PO Q8H PRN for PAIN-MODERATE (5- 7) Prescribed by: JUAN RAY on 02/04/23 0525 Discontinued Medications Catheter (Curity Urethral Catheter) 14 Fr Each, EACH MC TID PRN for urinary retention, (DME) Discontinued Reason: No Longer Taking Prescribed by: JAYSON ROBLEDO on 01/27/23 1156 Last Action: Discontinued Cyclobenzaprine HCl (Cyclobenzaprine HCl) 10 Mg Tablet, 10 MG PO 0600,1000,1400, (Reported) Discontinued Reason: No Longer Taking Entered as Reported by: STEPHON SUE on 05/31/19 0800 Last Action: Discontinued Lidocaine (Lidocaine) 4 % Adh..patch, 1 EACH TP DAILY, (Reported) Discontinued Reason: No Longer Taking Entered as Reported by: YOBANY GRANADO on 01/18/23 1643 Last Action: Discontinued Nystatin (Nystatin) 100,000 Unit/Ml Oral.susp, 5 ML PO Q6H Discontinued Reason: Duplicate Order Prescribed by: JAYSON ROBLEDO on 01/27/23 115 Last Action: Discontinued Tiotropium Trent (Spiriva) 18 Mcg Aerp, 1 INH IH DAILY PRN for AIR HUNGER Discontinued Reason: Duplicate Order Prescribed by: Sonja Patterson on 01/31/232109 Last Action: Discontinued Review of Systems Review of Systems Constitutional: chills; No diaphoresis; fever, malaise, weakness EENTM: No blurred vision, No double vision Respiratory: cough, short of breath Cardiovascular: No chest pain Gastrointestinal: No abdominal pain, No diarrhea, No nausea, No vomiting Genitourinary: decreased output; No discharge Musculoskeletal: back pain; No joint pain (ROSA JONAS) Past Sjlgywt-Lovtxg-Jibyyv Hx Immunizations Up To Date Tetanus Booster (TDap): Unknown (ROSA JONAS) Seasonal Allergies Seasonal Allergies: Yes (ROSA JONAS) Past Medical History Surgery/Hospitalization HX: CHF,NSTEMI, CABG, ANEMIA, HTN, L BKA, COPD Surgeries: Yes (TRIPPLE BYPASS WITH STENT) CABG Respiratory: Yes (ELEVATED LEFT HEMIDIAPHRAGM POST OP) COPD Currently Using CPAP: No Currently Using BIPAP: No Cardiac: Yes ( CABG, STENT ) Coronary Artery Disease, High Cholesterol, Hypertension Neurological: No Reproductive Disorders: No Sexually Transmitted Disease: No HIV/AIDS: No Genitourinary: No Bladder Infection Gastrointestinal: Yes (ELEVATED LEFT HEMIDIAPHRAGM POST LEFT CHEST SURGERY FOR UNKNOWN REASON. ) Gastroesophageal Reflux, Chronic Constipation Musculoskeletal: Yes (RIGHT HIP FX/ORIF, left distal radius fx) Degenerate Disk Disease, Arthritis, Chronic Back Pain, Fractures Endocrine: No HEENT: Yes (dentures) Loss of Vision: Bilateral Hearing Impairment: Hard of Hearing Cancer: No Psychosocial: No Integumentary: No Blood Disorders: Yes (POST OP ANEMIA AFTER HIP FX REPAIR--S/P TRANSFUSION) Adverse Reaction/Blood Tranf: No (ROSA JONAS) Family Medical History Cardiovascular disease 19 FATHER 19 MOTHER G8 BROTHER G8 SISTER FH: breast cancer 19 MOTHER Hypertension 19 FATHER 19 MOTHER Physical Exam Vital Signs Vital Signs - First Documented 01/31/23 01/31/23 17:22 17:54 Temp 37.2 Pulse 108 Resp 24 B/P (MAP) 122/74 (90) Pulse Ox 95 O2 Delivery Room Air O2 Flow Rate 2.00 (SHY SCOTT DO) Vital Signs Capillary Refill : (ROSA JONAS) Height, Weight, BMI Height: 5'9.00" Weight: 124lbs. 0oz. [id number]; 18.38 BMI Method:Stated General Appearance: No Apparent Distress, WD/WN HEENT: PERRL/EOMI, TMs Normal, Normal ENT Inspection, Pharynx Normal Neck: Full Range of Motion, Normal Inspection, Non Tender, Supple Respiratory: Chest Non Tender, Normal Breath Sounds, No Accessory Muscle Use, Wheezing Cardiovascular: Irregularly Irregular Gastrointestinal: Normal Bowel Sounds, No Organomegaly, No Pulsatile Mass, Non Tender Extremity: Normal Capillary Refill, Normal Inspection, Normal Range of Motion, Non Tender Neurologic/Psychiatric: Alert, Oriented x3, No Motor/Sensory Deficits, Normal Mood/Affect, assistant to the vice president II-XII Norm as Tested Skin: Normal Color, Warm/Dry (ROSA JONAS) Focused Exam Lactate Level 01/31/23 17:35: Lactic Acid Level 2.77*H 01/31/23 19:55: Lactic Acid Level 0.98 (JACQUELINE SCOTTA K DO) Lactic Acid Level Laboratory Tests Test 01/31/23 17:35 01/31/23 19:55 Lactic Acid Level 2.77 MMOL/L (0.50-2.00) *H 0.98 MMOL/L (0.50-2.00) (SHY SCOTT DO) Progress/Results/Core Measures Results/Orders Lab Results Laboratory Tests Test 01/31/23 17:35 01/31/23 18:13 01/31/23 18:52 01/31/23 19:55 Range/Units White Blood Count 8.8 4.3-11.0 10^3/uL Red Blood Count 3.59 L 4.30-5.52 10^6/uL Hemoglobin 11.6 L 13.3-17.7 g/dL Hematocrit 35 L 40-54 % Mean Corpuscular Volume 98 80-99 fL Mean Corpuscular Hemoglobin 32 25-34 pg Mean Corpuscular Hemoglobin Concent 33 32-36 g/dL Red Cell Distribution Width 16.8 H 10.0-14.5 % Platelet Count 525 H 130-400 10^3/uL Mean Platelet Volume 8.6 L 9.0-12.2 fL Immature Granulocyte % (Auto) 1 % Neutrophils (%) (Auto) 74 42-75 % Lymphocytes (%) (Auto) 14 12-44 % Monocytes (%) (Auto) 11 0-12 % Eosinophils (%) (Auto) 1 0-10 % Basophils (%) (Auto) 1 0-10 % Neutrophils # (Auto) 6.5 1.8-7.8 10^3/uL Lymphocytes # (Auto) 1.2 1.0-4.0 10^3/uL Monocytes # (Auto) 0.9 0.0-1.0 10^3/uL Eosinophils # (Auto) 0.1 0.0-0.3 10^3/uL Basophils # (Auto) 0.0 0.0-0.1 10^3/uL Immature Granulocyte # (Auto) 0.0 0.0-0.1 10^3/uL Prothrombin Time 13.3 12.2-14.7 SEC INR Comment 1.0 0.8-1.4 Activated Partial Thromboplast Time 35 24-35 SEC Sodium Level 132 L 135-145 MMOL/L Potassium Level 3.0 L 3.6-5.0 MMOL/L Chloride Level 92 L 98-107 MMOL/L Carbon Dioxide Level 24 21-32 MMOL/L Anion Gap 16 H 5-14 MMOL/L Blood Urea Nitrogen 10 7-18 MG/DL Creatinine 0.76 0.60-1.30 MG/DL Estimat Glomerular Filtration Rate 96 BUN/Creatinine Ratio 13 Glucose Level 91 70-105 MG/DL Lactic Acid Level 2.77 *H 0.98 0.50-2.00 MMOL/L Calcium Level 9.3 8.5-10.1 MG/DL Corrected Calcium 9.5 8.5-10.1 MG/DL Magnesium Level 2.1 1.6-2.4 MG/DL Total Bilirubin 0.7 0.1-1.0 MG/DL Aspartate Amino Transf (AST/SGOT) 37 H 5-34 U/L Alanine Aminotransferase (ALT/SGPT) 26 0-55 U/L Alkaline Phosphatase 80 40-136 U/L Troponin I 1.543 *H <0.028 NG/ML C-Reactive Protein High Sensitivity 5.03 H 0.00-0.50 MG/DL B-Type Natriuretic Peptide 344.0 H <100.0 PG/ML Total Protein 7.3 6.4-8.2 GM/DL Albumin 3.8 3.2-4.5 GM/DL Blood Gas Puncture Site RIGHT RADIAL Blood Gas Patient Temperature 37.2 Arterial Blood pH 7.50 H 7.37-7.43 Arterial Blood Partial Pressure CO2 33 L 35-45 MMHG Arterial Blood Partial Pressure O2 73 L 79-93 MMHG Arterial Blood HCO3 26 23-27 MMOL/L Arterial Blood Total CO2 26.7 21.0-31.0 MMOL/L Arterial Blood Oxygen Saturation 97 94-100 % Arterial Blood Base Excess 2.6 H -2.5-2.5 MMOL/L Nestor Test YES-POS Blood Gas Ventilator Setting NO Blood Gas Inspired Oxygen 2L Urine Color YELLOW Urine Clarity CLEAR Urine pH 5.0 5-9 Urine Specific [place] 1.020 1.016-1.022 Urine Protein TRACE H NEGATIVE Urine Glucose (UA) NEGATIVE NEGATIVE Urine Ketones TRACE H NEGATIVE Urine Nitrite NEGATIVE NEGATIVE Urine Bilirubin NEGATIVE NEGATIVE Urine Urobilinogen 0.2 < = 1.0 MG/DL Urine Leukocyte Esterase TRACE H NEGATIVE Urine RBC (Auto) NEGATIVE NEGATIVE Urine RBC NONE /HPF Urine WBC 10-25 H /HPF Urine Squamous Epithelial Cells 2-5 /HPF Urine Crystals NONE /LPF Urine Bacteria FEW H /HPF Urine Casts PRESENT /LPF Urine Hyaline Casts 10-25 H /LPF Urine Mucus NEGATIVE /LPF Urine Culture Indicated CULTURE PENDING Test 01/31/23 20:31 Range/Units Lab Scanned Report Referred Lab Report [id number] (SHY SCOTT DO) Micro Results Microbiology 01/31/23 Urine Culture - Final, Complete NO GROWTH 01/31/23 Blood Culture - Preliminary, Resulted 01/31/23 Blood Culture - Preliminary, Resulted (SHY SCOTT DO) Vital Signs/I&O 01/31/23 01/31/23 01/31/23 01/31/23 17:22 17:54 18:23 18:39 Temp 37.2 Pulse 108 123 Resp 24 B/P (MAP) 122/74 (90) 133/76 Pulse Ox 95 O2 Delivery Room Air Nasal Cannula Room Air O2 Flow Rate 2.00 (SHY SCOTT DO) Departure Communication (PCP) History of coronary artery disease, COPD. Does not wear oxygen at home. Daniel capone Was recently discharged from our facility for respiratory failure secondary to COVID. Patient with cough, fatigue, fever since yesterday. History of coronary artery disease. On arrival patient was tachycardia which appears irregular. EKG showed atrial fibrillation with RVR in 140s. No specific chest pain or abdominal pain. Does straight cath and states he has not been producing as much urine. Currently on a diuretic. Currently on Plavix. Patient oxygen in the lower 90s. Was supplemented with 2 L of nasal cannula as he did drop some into the upper 80s. Wheezing noted throughout. reports doing a breathing treatment right before arrival. Afebrile. Recent positive COVID. ABG was ordered. CBC showed normal white blood count, hemoglobin 9.6, platelets 525. Chemistry showed sodium 130, potassium 3.0, chloride 92. Troponin at 1.5 and BNP 300. Likely due to demand ischemia. Denies of any specific chest pain. Patient did have a borderline elevated troponin at his last visit that trend downward. Elevated BNP at that time as well. Treated conservatively with reviewing cardiology report. Patient normal kidney function and liver function. ABG showed pH of 7.50, PCO2 of 33, PO2 of 73 which is likely more chronic. Patient does not appear to be in respiratory distress. Patient was started on Cardizem 10 mg with some improvement. Started on IV Cardizem drip. Patient was given broad-spectrum antibiotics cefepime due to initially concern for sepsis. Blood cultures pending. Lactic acid 2.77. Started on liter fluid. Chest x-ray shows no evidence of pneumonia, pneumothorax.. There does show continued elevation of the left hemidiaphragm with increasing gas in the lower left chest, which may represent herniated loop of bowel. CT scan of the chest abdomen pelvis was ordered. CT angio of the chest did not show any evidence of pulmonary emboli. Acute right rectus sheath hematoma with extravasation of contrast noted. No bowel obstruction no free fluid or free air. Scattered hazy opacities with bibasilar opacities which may be combination of atelectasis and/or infection. Cholelithiasis without CT evidence of acute cholecystitis. Patient was discussed with Dr. Keating. At this time recommend stopping anticoagulant and apply abdominal binder. Patient heart rate continue to improve. Did remove patient's nasal cannula and oxygen remained above 93%. Patient was discussed with Dr. Ray who agreed to accept patient to the icu. (ROSA JONAS) Impression Primary Impression: Atrial fibrillation with RVR Additional Impression: UTI (urinary tract infection) Disposition: ADMITTED INPATIENT Condition: Stable Admissions Decision to Admit Reason: Admit from ER (General) Decision to Admit/Date: Jan 31, 2023 Time/Decision to Admit Time: 18:22 (ROSA JONAS) Departure-Patient Inst. Ref[place]: [facility] [place] Primary Care Physician Scripts Fluticasone Propionate (Fluticasone Propionate) 50 Mcg/Actuation [place].susp 0 SPRAY NS DAILY, #1 EACH daily Prov: JUAN RAY DO 02/04/23 Cilostazol (Cilostazol) 100 Mg Tablet 100 MG PO BID, #60 TAB Prov: JUAN RAY DO 02/04/23 Tiotropium [place] (Spiriva) 18 Mcg Aerp 1 INH IH DAILY, #1 EA Prov: JUAN RAY DO 02/04/23 Nystatin (Nystatin) 100,000 Unit/Ml Oral.susp 5 ML PO Q6H, #60 ML Prov: JUAN RAY DO 02/04/23 Losartan Potassium (Losartan Potassium) 25 Mg Tablet 25 MG PO DAILY, #30 TAB 0 Refills HOLD AND NOTIFY NURSE/PCP IF BP <80/50 OR >180 Prov: JUAN RAY DO 02/04/23 Ipratropium/Albuterol Sulfate (Iprat-Albut 0.5-3(2.5) mg/3 ml) 0.5 Mg-3 Mg (2.5 Mg Base)/3 Ml Ampul.neb 3 ML IH TID PRN for SHORTNESS OF BREATH, #60 EACH 0 Refills Prov: JUAN RAY DO 02/04/23 Hydrocodone/Acetaminophen (Hydrocodone-Acetamin 10-325 mg) 10 Mg-325 Mg Tablet 1 EACH PO Q8H PRN for PAIN-MODERATE (5-7), #20 TAB Prov: JUAN RAY DO 02/04/23 Lansoprazole (Lansoprazole) 30 Mg Capsule.dr 30 MG PO 0600,1400, #60 CAP Prov: JUAN RAY DO 02/04/23 Tamsulosin HCl (Flomax) 0.4 Mg Cap 0.8 MG PO 1800, #60 CAP TAKES 2 (0.4MG) CAPS Prov: JUAN RAY DO 02/04/23 Aspirin (Aspirin EC) 81 Mg Tablet.dr 81 MG PO DAILY, #30 TAB Prov: JUAN RAY DO 02/04/23 Tramadol HCl (Tramadol HCl) 50 Mg Tablet 50 MG PO Q8H PRN for PAIN-MODERATE (5-7), #20 TAB Prov: JUAN RAY DO 02/04/23 Fluticasone/Vilanterol (Breo Ellipta 200-25 Mcg INH) 200 Mcg-25 Mcg/Dose Blst.w.dev 1 EACH IH DAILY, #1 EACH Prov: JUAN RAY DO 02/04/23 Finasteride (Finasteride) 5 Mg Tablet 5 MG PO HS, #30 TAB Prov: JUAN RAY DO 02/04/23 Docusate Sodium (Docusate Sodium) 100 Mg Capsule 100 MG PO BID, #60 CAP Prov: JUAN RAY DO 02/04/23 Atorvastatin Calcium (Atorvastatin Calcium) 40 Mg Tablet 40 MG PO HS, #30 TAB Prov: JUAN RAY DO 02/04/23 Furosemide (Lasix) 40 Mg Tablet 40 MG PO DAILY, #30 TAB Prov: RAYJUAN DO 02/04/23 Potassium Chloride (Potassium Chloride) 10 Meq Tab.er.prt 20 MEQ PO DAILY, #60 TAB Prov: JUAN RAY DO 02/04/23 Clopidogrel Bisulfate (Clopidogrel) 75 Mg Tablet 75 MG PO DAILY, #30 TAB Prov: JUAN RAY DO 02/04/23 ATTENDING PHYSICIAN NOTE: I WAS PHYSICALLY PRESENT ER PHYSICIAN, BUT I WAS NOT INVOLVED IN ANY DECISION MAKING OR ANY CARE OF THIS PATIENT, AND I AM NOT COLLABORATING PHYSICIAN. (SHY SCOTT DO) ROSA JONAS Jan 31, 2023 17:41 SHY SCOTT DO Feb 04, 2023 13:51
[2023-01-31] MEDS ORDERED: RT-Ipratropium/Albuterol NEB 3 ML VIAL INH ONE (17:45)
[2023-01-31] MEDS ORDERED: CEFEPIME INJECTION 1,000 MG in NS (IVPB) 50 ML 50 ML IV ONE (17:45)
[2023-01-31 18:00] LABS: BASOPHILS % (AUTO) 1 % (0-10); EOSINOPHILS # (AUTO) 0.1 10^3/uL (0.0-0.3); EOSINOPHILS % (AUTO) 1 % (0-10); HEMATOCRIT 35 % (40-54); HEMOGLOBIN 11.6 g/dL (13.3-17.7); LYMPHOCYTES # (AUTO) 1.2 10^3/uL (1.0-4.0); LYMPHOCYTES % (AUTO) 14 % (12-44); MEAN CORPUSCULAR HEMOGLOBIN 32 pg (25-34); MEAN CORPUSCULAR HGB CONC 33 g/dL (32-36); MEAN CORPUSCULAR VOLUME 98 fL (80-99); MEAN PLATELET VOLUME 8.6 fL (9.0-12.2); MONOCYTES # (AUTO) 0.9 10^3/uL (0.0-1.0); MONOCYTES % (AUTO) 11 % (0-12); NEUTROPHILS # (AUTO) 6.5 10^3/uL (1.8-7.8); NEUTROPHILS % (AUTO) 74 % (42-75); PLATELET COUNT 525 10^3/uL (130-400); WHITE BLOOD COUNT 8.8 10^3/uL (4.3-11.0)
[2023-01-31 18:10] LABS: ALBUMIN 3.8 GM/DL (3.2-4.5)
[2023-01-31 18:11] LABS: CALCIUM 9.3 MG/DL (8.5-10.1)
[2023-01-31 18:12] LABS: TOTAL PROTEIN 7.3 GM/DL (6.4-8.2)
[2023-01-31 18:14] LABS: BILIRUBIN,TOTAL 0.7 MG/DL (0.1-1.0)
[2023-01-31] MEDS ORDERED: dilTIAZem DRIP PRE-MIX 125 ML IV STA (18:15)
[2023-01-31] MEDS ORDERED: dilTIAZem INJ 25 MG/5 ML VIAL IVP ONE (18:15)
[2023-01-31 18:16] LABS: CREATININE SERUM 0.76 MG/DL (0.60-1.30)
[2023-01-31 18:19] LABS: ABG BASE EXCESS 2.6 MMOL/L (-2.5-2.5); ABG OXYGEN SATURATION 97 % (94-100); ABG PCO2 33 MMHG (35-45); ABG PO2 73 MMHG (79-93); ABG TCO2 26.7 MMOL/L (21.0-31.0)
[2023-01-31 18:20] LABS: ALLENS TEST YES-POS; INSPIRED O2 2L; PATIENT TEMP 37.2; VENTILATOR NO
[2023-01-31 18:20] LABS: PROTHROMBIN TIME PATIENT 13.3 SEC (12.2-14.7)
--- NOTE | 2023-01-31 18:27 | Diagnostic Imaging Report ---
INDICATION: Dyspnea. FINDINGS: Single AP view of the chest is obtained. Since 01/22/2023, there is continued elevation of the left hemidiaphragm with increasing gas in the lower left chest, which may represent herniated loop of bowel. Surgical findings are again seen within the medial left lung and in the mediastinum. There is no pneumothorax or other significant change. IMPRESSION: Increasing gas in the lower left thorax. This may represent gaseous distention of stomach or herniated bowel loop. Consideration could be given to CT imaging for further assessment. Dictated by: Dictated on workstation # [id number]
[2023-01-31] MEDS ORDERED: IOHEXOL 350 MG/ML 100 ML (OMNIPAQUE 350) VIAL IV ONE (19:00)
[2023-01-31] MEDS ORDERED: NS 100 ML (IVPB) BAG IV ONE (19:00)
[2023-01-31 19:14] LABS: BACTERIA,URINE FEW /HPF; BILIRUBIN,URINE NEGATIVE (NEGATIVE); CLARITY,URINE CLEAR; COLOR,URINE YELLOW; GLUCOSE, URINE (UA) NEGATIVE (NEGATIVE); KETONES,URINE TRACE (NEGATIVE); LEUKOCYTE ESTERASE ,URINE TRACE (NEGATIVE); NITRITE,URINE NEGATIVE (NEGATIVE); PROTEIN,URINE TRACE (NEGATIVE)
--- NOTE | 2023-01-31 19:42 | Diagnostic Imaging Report ---
INDICATION: Worsening shortness of breath. Fever. Cough. Recent COVID infection. EXAMINATION: CTA chest, abdomen, and pelvis. TECHNIQUE: Thin axial sections through the chest, abdomen and pelvis are obtained following intravenous contrast bolus. Multiplanar MIP images were reconstructed and reviewed. All CT scans use one or more of the following dose optimizing techniques: Automated exposure control, MA and/or KvP adjustment based on patient size and exam type or iterative reconstruction. COMPARISON: 12/20/2022. CTA chest: No evidence of pulmonary emboli to the subsegmental pulmonary arteries. The heart size is within normal limits. Post-CABG changes are noted. There is calcified aortic and coronary atherosclerotic plaque. No pericardial effusion is present. There is no mediastinal, hilar, or axillary lymphadenopathy. There is elevation of the left hemidiaphragm. Bibasilar opacities are seen. A few scattered hazy opacities are present. No discrete mass. No pleural effusion or pneumothorax. No acute osseous abnormalities. CT abdomen and pelvis: The liver, spleen, pancreas, adrenal glands, and kidneys have a normal appearance. The gallbladder is nondilated. Gallstones are layering within the gallbladder lumen. There is no pathologically enlarged mesenteric or retroperitoneal adenopathy. The bowel loops are nondilated. There is no free fluid or free air. No acute osseous abnormalities. There is right convexity curvature of the lumbar spine. Diffuse calcified aortic and iliac atherosclerotic plaque is seen. The urinary bladder is decompressed with Michael catheter in place. A fluid collection is seen within the right rectus sheath with suggestion of extravasation of contrast. This measures 4.3 x 1.7 cm. IMPRESSION: 1. No evidence of pulmonary emboli to the subsegmental pulmonary arteries. 2. Acute right rectus sheath hematoma with extravasation of contrast noted. 3. No bowel obstruction. No free fluid or free air. 4. Scattered hazy opacities with bibasilar opacities. Findings likely represent a combination of atelectasis and/or infection. No pleural effusion. 5. Cholelithiasis without CT evidence of acute cholecystitis. Dictated by: Dictated on workstation # [id number]
[2023-01-31] MEDS ORDERED: HYDROmorphone INJECTION 2 MG/ML VIAL IV PRN (21:00)
[2023-01-31] MEDS ORDERED: NITROGLYCERIN 0.4 MG SL TABLETS BTL 25'S SL PRN (21:00)
[2023-01-31] MEDS ORDERED: PHARMACY TO DOSE IV SCH (21:00)
[2023-01-31] MEDS ORDERED: ACETAMINOPHEN 325 MG TABLET PO PRN (21:00)
[2023-01-31] MEDS ORDERED: LACTULOSE SYRUP 10GM/15ML 30ML UDC PO PRN (21:00)
[2023-01-31] MEDS ORDERED: NS IV 1000 ML 1,000 ML IV SCH (21:00)
[2023-01-31] MEDS ORDERED: NS IV 500 ML 500 ML IV PRN (21:00)
[2023-01-31] MEDS ORDERED: PATIENT MAY USE OWN MEDS, ALL PO SCH (21:00)
[2023-01-31] MEDS ORDERED: MELATONIN 3 MG TABLET PO PRN (21:00)
[2023-01-31] MEDS ORDERED: ANTACID SUSPENSION 30 ML UDC PO PRN (21:00)
[2023-01-31] MEDS ORDERED: BISACODYL 10 MG SUPPOSITORY PR PRN (21:00)
[2023-01-31] MEDS ORDERED: ONDANSETRON 4 MG ORAL DISSOLVE TABLET PO PRN (21:00)
[2023-01-31] MEDS ORDERED: ONDANSETRON INJECTION 4 MG/2 ML (SDV) IV PRN (21:00)
[2023-01-31] MEDS ORDERED: diphenhydrAMINE INJ 50 MG/ML VIAL IVP PRN (21:00)
[2023-01-31] MEDS ORDERED: MILK OF MAGNESIA 400 MG/5 ML 30 ML UDC PO PRN (21:00)
[2023-01-31] MEDS ORDERED: CALCIUM CARBONATE 500 MG CHEW TABLET PO PRN (21:00)
[2023-01-31] MEDS ORDERED: TIOT18CA2 IH (21:10)
[2023-01-31] MEDS ORDERED: LORazepam 0.5 MG TABLET PO PRN (21:30)
[2023-01-31] MEDS: DOCUSATE SODIUM 100 MG CAPSULE PO SCH (21:36)
[2023-01-31] MEDS: SENNOSIDES 8.6 MG TABLET PO SCH (21:36)
[2023-01-31] MEDS ORDERED: VANCOMYCIN 1250 MG/NS 250 ML PREMIX IV ONE (22:00)
[2023-01-31] MEDS ORDERED: RT-Ipratropium/Albuterol NEB 3 ML VIAL INH PRN (23:00)
--- NOTE | 2023-01-31 23:23 | Tele-ICU Progress Note ---
Progress Note 72M with CAD s/p 3vCABG 2008, HTN, HLD, GERD, chronic consitpation, chronic hemidiaphragm elevation after chest surgery, chronic urinary obstruction, PAD s/p L AKA, COVID admit 01/27, MD 01/05 treated conservitavely admitted with fever, cough and congestion since last night. Has a wet cough and difficulty catching his breath. Has had poor UOP and difficulty with home straight cath. Was diffusely wheezy on arrival despite using home nebs. In ED, CTA of the chest with CT A/P showed rectus sheath hematoma with active extravasation. The family states that he was hospitalized in [place] for NSTEMI and a SC ABD injection was accidentally given in a vein and he has been bleeding ever since. I am unclear on the exact date of the [place] admit, reported to be the begininng of December. On Dec 20, had CTA which did not mention hematoma or show active extravasation. A/P: - sepsis: patient with recent COVID, now with new viral syndrome vs bacterial infection. Empiric abx given in ED and continued on arrival. Cultures pending. CXR and CTA negative. Scheduled and PRN nebs, supportive care. - afib: RVR on presentation. Given diltiazem 10 mg IV x1 with improvement. Current BP 109/53, HR 80-100. Correct K of 3.0. Continue to monitor. - abd hematoma: with apparent active extravasation on CTA. Will monitor q6h Hg. No IR services at this facility. Will defer to primary. At this time, HD stable. No active reversal of AC/AP agents given severe CAD and PVD. - troponemia: asymptomatic. Possible demand. Will repeat troponin now. Patient assessed via real time audiovisual communication system. CCT 21 min Focused Exam Lactate Level 01/31/23 17:35: Lactic Acid Level 2.77*H 01/31/23 19:55: Lactic Acid Level 0.98 Height, Weight, BMI Height: 5'9.00" Weight: 124lbs. 0oz. [id number]; 19.00 BMI Method:Stated Lactic Acid Level Laboratory Tests Test 01/31/23 19:55 Lactic Acid Level 0.98 MMOL/L (0.50-2.00) CATALINA MUSE MD Jan 31, 2023 23:23
[2023-01-31 23:27] LABS: BASOPHILS % (AUTO) 1 % (0-10); EOSINOPHILS % (AUTO) 1 % (0-10); HEMATOCRIT 28 % (40-54); HEMOGLOBIN 9.3 g/dL (13.3-17.7); LYMPHOCYTES # (AUTO) 1.3 10^3/uL (1.0-4.0); LYMPHOCYTES % (AUTO) 24 % (12-44); MEAN CORPUSCULAR HEMOGLOBIN 32 pg (25-34); MEAN CORPUSCULAR HGB CONC 34 g/dL (32-36); MEAN CORPUSCULAR VOLUME 96 fL (80-99); MEAN PLATELET VOLUME 8.6 fL (9.0-12.2); MONOCYTES # (AUTO) 0.8 10^3/uL (0.0-1.0); MONOCYTES % (AUTO) 15 % (0-12); NEUTROPHILS # (AUTO) 3.1 10^3/uL (1.8-7.8); NEUTROPHILS % (AUTO) 59 % (42-75); PLATELET COUNT 447 10^3/uL (130-400); WHITE BLOOD COUNT 5.2 10^3/uL (4.3-11.0)
[2023-02-01] MEDS: CEFEPIME INJECTION 1,000 MG in NS (IVPB) 50 ML 50 ML IV SCH ×4 (00:23→18:41)
[2023-02-01] MEDS: diphenhydrAMINE 25 MG TABLET PO PRN ×2 (00:28→18:41)
[2023-02-01] MEDS ORDERED: RT-Ipratropium/Albuterol NEB 3 ML VIAL INH SCH (02:00)
[2023-02-01] MEDS ORDERED: RT-ALBUTEROL HFA 8.5 GM INHALER IH PRN (02:15)
[2023-02-01 04:14] LABS: ABG BASE EXCESS -0.1 MMOL/L (-2.5-2.5); ABG OXYGEN SATURATION 94 % (94-100); ABG PCO2 32 MMHG (35-45); ABG PH 7.47 (7.37-7.43); ABG PO2 67 MMHG (79-93); ALLENS TEST YES-POS; INSPIRED O2 RA; VENTILATOR NO
[2023-02-01 04:15] LABS: PATIENT TEMP 37.6
[2023-02-01 04:49] LABS: BASOPHILS # (AUTO) 0.1 10^3/uL (0.0-0.1); BASOPHILS % (AUTO) 1 % (0-10); EOSINOPHILS # (AUTO) 0.1 10^3/uL (0.0-0.3); EOSINOPHILS % (AUTO) 1 % (0-10); HEMATOCRIT 30 % (40-54); HEMOGLOBIN 10.1 g/dL (13.3-17.7); LYMPHOCYTES % (AUTO) 16 % (12-44); MEAN CORPUSCULAR HEMOGLOBIN 32 pg (25-34); MEAN CORPUSCULAR HGB CONC 34 g/dL (32-36); MEAN CORPUSCULAR VOLUME 96 fL (80-99); MONOCYTES # (AUTO) 0.7 10^3/uL (0.0-1.0); MONOCYTES % (AUTO) 11 % (0-12); NEUTROPHILS # (AUTO) 4.4 10^3/uL (1.8-7.8); NEUTROPHILS % (AUTO) 71 % (42-75); PLATELET COUNT 487 10^3/uL (130-400); WHITE BLOOD COUNT 6.2 10^3/uL (4.3-11.0)
[2023-02-01] MEDS: oxyCODONE IMMEDIATE RELEASE 5 MG TABLET PO PRN ×3 (05:02→20:59)
[2023-02-01 05:04] LABS: ALBUMIN 3.1 GM/DL (3.2-4.5); BILIRUBIN,TOTAL 0.5 MG/DL (0.1-1.0); CALCIUM 8.2 MG/DL (8.5-10.1); CREATININE SERUM 0.63 MG/DL (0.60-1.30); MAGNESIUM 1.9 MG/DL (1.6-2.4); PHOSPHORUS 3.2 MG/DL (2.3-4.7); POTASSIUM 2.6 MMOL/L (3.6-5.0); TOTAL PROTEIN 5.8 GM/DL (6.4-8.2)
[2023-02-01] MEDS: POTASSIUM CHLORIDE 20 MEQ TABLET PO SCH (05:52)
[2023-02-01] MEDS ORDERED: MAGNESIUM 1 GM/100 ML IVPB 100 ML IV SCH (06:00)
[2023-02-01] MEDS ORDERED: RT-ALBUTEROL HFA 8.5 GM INHALER IH SCH (06:00)
[2023-02-01] MEDS ORDERED: POTASSIUM CL 10MEQ/50ML IVPB 50 ML IV SCH (06:00)
[2023-02-01] MEDS: MAGNESIUM 1 GM/100 ML IVPB 100 ML IV SCH ×2 (06:55→08:10)
[2023-02-01] MEDS: POTASSIUM CL 10MEQ/50ML IVPB 50 ML IV SCH ×7 (06:56→13:10)
--- NOTE | 2023-02-01 07:55 | Consultation-Cardiology ---
HPI-Cardiology Cardiology Consultation Date of Consultation 02/01/23 Date of Admission Time Seen by Provider: 07:50 Indication: Shortness of breath HPI 72-year-old gentleman with a history of COPD, coronary artery disease, he was discharged recently from the hospital. Returned for generalized fatigue, cough and congestion. On my evaluation he was laying down in bed comfortably, still having some cough, he had initially temperature of 101. Denied any chest pain. No palpitation. Having difficulty with straight cath Home Medications & Allergies Allergies: Coded Allergies: No Known Drug Allergies (Unverified , 03/08/18) Home Medication List Reviewed: Yes VSC-Tmwwho-Pxitiz Hx Patient Social History Employed/Student: retired Smoking Status: Former Smoker Type Used: Cigarettes 2nd Hand Smoke Exposure: Yes Recent Hopitalizations: No Alcohol Use?: No Immunizations Up To Date Tetanus Booster (TDap): Unknown Date of Influenza Vaccine: Feb 13, 2019 Past Medical History Discussed below Family Medical History Significant Family History: No Pertinent Family Hx Family History: Cardiovascular disease 19 FATHER 19 MOTHER G8 BROTHER G8 SISTER FH: breast cancer 19 MOTHER Hypertension 19 FATHER 19 MOTHER Review of Systems-General Review of Systems Constitutional: chills; No diaphoresis; fever, malaise, weakness EENTM: No blurred vision, No double vision Respiratory: see HPI, cough, dyspnea on exertion, short of breath Cardiovascular: see HPI; No chest pain, No edema, No Hx of Intervention, No palpitations, No syncope, No vascular heart diseas, No other Gastrointestinal: No abdominal pain, No diarrhea, No nausea, No vomiting Genitourinary: decreased output; No discharge Musculoskeletal: back pain; No joint pain Skin: no symptoms reported, see HPI Psychiatric/Neurological: No Symptoms Reported, See HPI Reviewed Test Results Reviewed Test Results Lab Laboratory Tests Test 01/31/23 17:35 01/31/23 18:13 01/31/23 18:52 01/31/23 19:55 Range/Units White Blood Count 8.8 4.3-11.0 10^3/uL Red Blood Count 3.59 L 4.30-5.52 10^6/uL Hemoglobin 11.6 L 13.3-17.7 g/dL Hematocrit 35 L 40-54 % Mean Corpuscular Volume 98 80-99 fL Mean Corpuscular Hemoglobin 32 25-34 pg Mean Corpuscular Hemoglobin Concent 33 32-36 g/dL Red Cell Distribution Width 16.8 H 10.0-14.5 % Platelet Count 525 H 130-400 10^3/uL Mean Platelet Volume 8.6 L 9.0-12.2 fL Immature Granulocyte % (Auto) 1 % Neutrophils (%) (Auto) 74 42-75 % Lymphocytes (%) (Auto) 14 12-44 % Monocytes (%) (Auto) 11 0-12 % Eosinophils (%) (Auto) 1 0-10 % Basophils (%) (Auto) 1 0-10 % Neutrophils # (Auto) 6.5 1.8-7.8 10^3/uL Lymphocytes # (Auto) 1.2 1.0-4.0 10^3/uL Monocytes # (Auto) 0.9 0.0-1.0 10^3/uL Eosinophils # (Auto) 0.1 0.0-0.3 10^3/uL Basophils # (Auto) 0.0 0.0-0.1 10^3/uL Immature Granulocyte # (Auto) 0.0 0.0-0.1 10^3/uL Prothrombin Time 13.3 12.2-14.7 SEC INR Comment 1.0 0.8-1.4 Activated Partial Thromboplast Time 35 24-35 SEC Sodium Level 132 L 135-145 MMOL/L Potassium Level 3.0 L 3.6-5.0 MMOL/L Chloride Level 92 L 98-107 MMOL/L Carbon Dioxide Level 24 21-32 MMOL/L Anion Gap 16 H 5-14 MMOL/L Blood Urea Nitrogen 10 7-18 MG/DL Creatinine 0.76 0.60-1.30 MG/DL Estimat Glomerular Filtration Rate 96 BUN/Creatinine Ratio 13 Glucose Level 91 70-105 MG/DL Lactic Acid Level 2.77 *H 0.98 0.50-2.00 MMOL/L Calcium Level 9.3 8.5-10.1 MG/DL Corrected Calcium 9.5 8.5-10.1 MG/DL Magnesium Level 2.1 1.6-2.4 MG/DL Total Bilirubin 0.7 0.1-1.0 MG/DL Aspartate Amino Transf (AST/SGOT) 37 H 5-34 U/L Alanine Aminotransferase (ALT/SGPT) 26 0-55 U/L Alkaline Phosphatase 80 40-136 U/L Troponin I 1.543 *H <0.028 NG/ML C-Reactive Protein High Sensitivity 5.03 H 0.00-0.50 MG/DL B-Type Natriuretic Peptide 344.0 H <100.0 PG/ML Total Protein 7.3 6.4-8.2 GM/DL Albumin 3.8 3.2-4.5 GM/DL Blood Gas Puncture Site RIGHT RADIAL Blood Gas Patient Temperature 37.2 Arterial Blood pH 7.50 H 7.37-7.43 Arterial Blood Partial Pressure CO2 33 L 35-45 MMHG Arterial Blood Partial Pressure O2 73 L 79-93 MMHG Arterial Blood HCO3 26 23-27 MMOL/L Arterial Blood Total CO2 26.7 21.0-31.0 MMOL/L Arterial Blood Oxygen Saturation 97 94-100 % Arterial Blood Base Excess 2.6 H -2.5-2.5 MMOL/L Nestor Test YES-POS Blood Gas Ventilator Setting NO Blood Gas Inspired Oxygen 2L Urine Color YELLOW Urine Clarity CLEAR Urine pH 5.0 5-9 Urine Specific Goldsmith 1.020 1.016-1.022 Urine Protein TRACE H NEGATIVE Urine Glucose (UA) NEGATIVE NEGATIVE Urine Ketones TRACE H NEGATIVE Urine Nitrite NEGATIVE NEGATIVE Urine Bilirubin NEGATIVE NEGATIVE Urine Urobilinogen 0.2 < = 1.0 MG/DL Urine Leukocyte Esterase TRACE H NEGATIVE Urine RBC (Auto) NEGATIVE NEGATIVE Urine RBC NONE /HPF Urine WBC 10-25 H /HPF Urine Squamous Epithelial Cells 2-5 /HPF Urine Crystals NONE /LPF Urine Bacteria FEW H /HPF Urine Casts PRESENT /LPF Urine Hyaline Casts 10-25 H /LPF Urine Mucus NEGATIVE /LPF Urine Culture Indicated CULTURE PENDING Test 01/31/23 23:10 02/01/23 03:30 02/01/23 04:00 Range/Units White Blood Count 5.2 6.2 4.3-11.0 10^3/uL Red Blood Count 2.90 L 3.15 L 4.30-5.52 10^6/uL Hemoglobin 9.3 L 10.1 L 13.3-17.7 g/dL Hematocrit 28 L 30 L 40-54 % Mean Corpuscular Volume 96 96 80-99 fL Mean Corpuscular Hemoglobin 32 32 25-34 pg Mean Corpuscular Hemoglobin Concent 34 34 32-36 g/dL Red Cell Distribution Width 16.6 H 16.7 H 10.0-14.5 % Platelet Count 447 H 487 H 130-400 10^3/uL Mean Platelet Volume 8.6 L 9.0 9.0-12.2 fL Immature Granulocyte % (Auto) 0 1 % Neutrophils (%) (Auto) 59 71 42-75 % Lymphocytes (%) (Auto) 24 16 12-44 % Monocytes (%) (Auto) 15 H 11 0-12 % Eosinophils (%) (Auto) 1 1 0-10 % Basophils (%) (Auto) 1 1 0-10 % Neutrophils # (Auto) 3.1 4.4 1.8-7.8 10^3/uL Lymphocytes # (Auto) 1.3 1.0 1.0-4.0 10^3/uL Monocytes # (Auto) 0.8 0.7 0.0-1.0 10^3/uL Eosinophils # (Auto) 0.0 0.1 0.0-0.3 10^3/uL Basophils # (Auto) 0.0 0.1 0.0-0.1 10^3/uL Immature Granulocyte # (Auto) 0.0 0.0 0.0-0.1 10^3/uL Troponin I 1.474 *H 1.285 *H <0.028 NG/ML Sodium Level 133 L 135-145 MMOL/L Potassium Level 2.6 L 3.6-5.0 MMOL/L Chloride Level 99 98-107 MMOL/L Carbon Dioxide Level 22 21-32 MMOL/L Anion Gap 12 5-14 MMOL/L Blood Urea Nitrogen 6 L 7-18 MG/DL Creatinine 0.63 0.60-1.30 MG/DL Estimat Glomerular Filtration Rate 102 BUN/Creatinine Ratio 10 Glucose Level 80 70-105 MG/DL Calcium Level 8.2 L 8.5-10.1 MG/DL Corrected Calcium 8.9 8.5-10.1 MG/DL Phosphorus Level 3.2 2.3-4.7 MG/DL Magnesium Level 1.9 1.6-2.4 MG/DL Total Bilirubin 0.5 0.1-1.0 MG/DL Aspartate Amino Transf (AST/SGOT) 23 5-34 U/L Alanine Aminotransferase (ALT/SGPT) 18 0-55 U/L Alkaline Phosphatase 65 40-136 U/L Total Protein 5.8 L 6.4-8.2 GM/DL Albumin 3.1 L 3.2-4.5 GM/DL Triglycerides Level 51 <150 MG/DL Cholesterol Level 108 < 200 MG/DL LDL Cholesterol Direct 50 1-129 MG/DL VLDL Cholesterol 10 5-40 MG/DL HDL Cholesterol 40 40-60 MG/DL Blood Gas Puncture Site RR Blood Gas Patient Temperature 37.6 Arterial Blood pH 7.47 H 7.37-7.43 Arterial Blood Partial Pressure CO2 32 L 35-45 MMHG Arterial Blood Partial Pressure O2 67 L 79-93 MMHG Arterial Blood HCO3 23 23-27 MMOL/L Arterial Blood Total CO2 24.0 21.0-31.0 MMOL/L Arterial Blood Oxygen Saturation 94 94-100 % Arterial Blood Base Excess -0.1 -2.5-2.5 MMOL/L Nestor Test YES-POS Blood Gas Ventilator Setting NO Blood Gas Inspired Oxygen RA Physical Exam Physical Exam Vital Signs Vital Signs - First Documented 01/31/23 01/31/23 17:22 17:54 Temp 37.2 Pulse 108 Resp 24 B/P (MAP) 122/74 (90) Pulse Ox 95 O2 Delivery Room Air O2 Flow Rate 2.00 Capillary Refill : Height, Weight, BMI Height: 5'9.00" Weight: 124lbs. 0oz. [id number]; 19.36 BMI Method:Stated General Appearance: No Apparent Distress, WD/WN HEENT: PERRL/EOMI, TMs Normal, Normal ENT Inspection, Pharynx Normal Neck: Full Range of Motion, Normal Inspection, Non Tender, Supple Respiratory: Chest Non Tender, Normal Breath Sounds, No Accessory Muscle Use, Wheezing Cardiovascular: Irregularly Irregular Gastrointestinal: Normal Bowel Sounds, No Organomegaly, No Pulsatile Mass, Non Tender Extremity: Normal Capillary Refill, Normal Inspection, Normal Range of Motion, Non Tender Neurologic/Psychiatric: Alert, Oriented x3, No Motor/Sensory Deficits, Normal Mood/Affect, manager hydraulic II-XII Norm as Tested Skin: Normal Color, Warm/Dry A/P-Cardiology Admission Diagnosis Sepsis Acute respiratory failure Non-ST elevation myocardial infarction Coronary artery disease Assessment/Plan Sepsis, fever and congestion Status post recent respiratory failure with COPD exacerbation with COVID-19 positive. Return for worsening fever and generalized malaise. Non-ST elevation myocardial infarction. Elevation in troponin Conservative management is recommended at this point History of CAD/CABG, borderline positive troponin which is getting better on serial examinations. coronary angiography done at [facility] [place] in [place]. Coronary angiography was done on 01/06/2023. According to the daughter no PCI was done. Patient does have previous history of CABG. Continue dual antiplatelet therapy. Add Lovenox Questionable atrial fibrillation with rapid ventricular response, careful review of his EKG showed multifocal atrial tachycardia probably secondary to hypoxemia Has been on Cardizem drip Adding Lovenox and start aspirin and Plavix Acute on chronic congestive heart failure. Echocardiogram pending. However significantly improved BNP. Continue to monitor Hypertension, monitor blood pressure COPD Extensive peripheral arterial disease per history Urinary retention Clinical Quality Measures DVT/VTE Risk/Contraindication: Contraindications-Pharm: Other *list below* Other: hematoma OLEGARIO Burroughs MD Feb 01, 2023 07:55
[2023-02-01] MEDS: VANCOMYCIN 1 GM/NS 250 ML IVPB IV SCH ×4 (08:10→20:34)
[2023-02-01] MEDS: ASPIRIN enteric coated 81MG TABLET PO SCH (08:13)
[2023-02-01] MEDS: CLOPIDOGREL 75 MG TABLET PO SCH (08:21)
[2023-02-01] MEDS: ENOXAPARIN 60 MG/0.6 ML SYRINGE SC SCH ×2 (08:22→20:33)
[2023-02-01] MEDS: DOCUSATE SODIUM 100 MG CAPSULE PO SCH ×2 (08:31→22:11)
[2023-02-01] MEDS: SENNOSIDES 8.6 MG TABLET PO SCH ×2 (08:32→22:11)
[2023-02-01] MEDS ORDERED: ASPIRIN enteric coated 81MG TABLET PO SCH (09:00)
[2023-02-01] MEDS ORDERED: PANTOPRAZOLE 40 MG TABLET PO SCH (09:00)
--- NOTE | 2023-02-01 09:04 | Diagnostic Imaging Report ---
EXAMINATION: Chest 1 view HISTORY: Respiratory failure COMPARISON: 02/01/2023 FINDINGS: There is unchanged elevation left hemidiaphragm with gaseous distention of the colon in the left upper quadrant. There is mild edema. No pneumothorax. Heart size is normal. Median sternotomy wires are aligned. IMPRESSION: 1. Bilateral pulmonary edema. Dictated by: Dictated on workstation # [id number]
[2023-02-01] MEDS: RT-Ipratropium/Albuterol NEB 3 ML VIAL INH SCH ×4 (10:01→21:42)
--- NOTE | 2023-02-01 10:06 | History & Physical-Hospitalist ---
PRANAV FREEMAN 02/01/23 1006: History of Present Illness HPI/Chief Complaint CC: Fever, general weakness HPI: This is a 72yo male with pmh of COPD, CAD, HTN, and recent hospitalization (01/18) for Acute Respiratory Failure secondary to COVID-19 and PA in the last month presenting with fever, general weakness/fatigue, cough, and congestion x1 day. He is also having associated shortness of breath. Pt normally uses straight catheter and was concerned because he couldn't perform the straight cath by himself. Pt denies n/v/d and headache. While in the ED, patient was noted to have AFIB with RVR which spontaneously converted last night. Source: patient, RN/MD, RN notes reviewed, EMS notes reviewed Exam Limitations: other (hearing impaired) Date Seen 02/01/23 Time Seen by a Provider: 08:18 Attending Physician No,Local Physician PCP Admitting Physician: Mary Jo Cano DO Attending Physician: Mary Jo Caon DO Referring Physician Date of Admission Jan 31, 2023 at 20:31 Home Medications & Allergies Home Medications Reviewed patient Home Medication Reconciliation performed by pharmacy medication reconciliations animal care technician and/or nursing. Patients Allergies have been reviewed. Allergies Allergies Coded Allergies No Known Drug Allergies (Tgbpjhmfnh53/24/18) Past Wsgddni-Ciqzau-Lurckk Hx Patient Social History Employed/Student: retired Tobacco Use?: No Tobacco type used: Cigarettes Smoking Status: Former Smoker Use of E-Cig and/or Vaping dev: No Substance use?: No Alcohol Use?: No Alcohol type: Beer Alcohol Frequency: Daily Pt feels they are or have been: No Immunizations Up To Date Date of Influenza Vaccine: Feb 13, 2019 Tetanus Booster (TDap): Less Than 5 Years Hepatitis A: No Hepatitis B: No Seasonal Allergies Seasonal Allergies: Yes Current Status Advance Directives: Unable to obtain Communicates: Verbally Primary Language: Greek Preferred Spoken Language: Greek Is interpretation needed?: No Sensory deficits: Hearing impairment Past Medical History Surgeries: CABG COPD Currently Using CPAP: No Currently Using BIPAP: No Coronary Artery Disease, High Cholesterol, Hypertension Sexually Transmitted Disease: No HIV/AIDS: No Bladder Infection Gastroesophageal Reflux, Chronic Constipation Degenerate Disk Disease, Arthritis, Chronic Back Pain, Fractures Loss of Vision: Bilateral Hearing Impairment: Hard of Hearing Blood Disorders: Yes (POST OP ANEMIA AFTER HIP FX REPAIR--S/P TRANSFUSION) Adverse Reaction/Blood Tranf: No PMHx: CAD HTN HLD GERD ASOD Chronic back pain SurgHx: Triple bypass Nerve transposition Right hip fracture nailing Family Medical History Cardiovascular disease 19 FATHER 19 MOTHER G8 BROTHER G8 SISTER FH: breast cancer 19 MOTHER Hypertension 19 FATHER 19 MOTHER No Pertinent Family Hx Review of Systems Constitutional: No fever; malaise, weakness Respiratory: cough; No short of breath Cardiovascular: No chest pain, No palpitations Gastrointestinal: No diarrhea, No nausea, No vomiting Musculoskeletal: back pain (chronic) Physical Exam Physical Exam Vital Signs Vital Signs - First Documented 01/31/23 01/31/23 17:22 17:54 Temp 37.2 Pulse 108 Resp 24 B/P (MAP) 122/74 (90) Pulse Ox 95 O2 Delivery Room Air O2 Flow Rate 2.00 Capillary Refill : Height, Weight, BMI Height: 5'9.00" Weight: 124lbs. 0oz. 56.363917vh; 19.36 BMI Method:Stated General Appearance: No Apparent Distress, Chronically ill Respiratory: No Accessory Muscle Use, No Respiratory Distress, Wheezing Cardiovascular: Regular Rate, Rhythm, No Gallop, No Murmur Neurologic/Psychiatric: Alert, Oriented x3, No Motor/Sensory Deficits, Normal Mood/Affect Skin: Normal Color, Warm/Dry Results Results/Procedures Labs Laboratory Tests 01/31/23 17:35 01/31/23 23:10 02/01/23 03:30 Patient resulted labs reviewed. Assessment/Plan Admission Diagnosis New-onset AFIB with RVR Assessment and Plan Assessment 1.New-onset AFIB with RVR 2. UTI 3. Sepsis 4. Respiratory Alkalosis Plan 1. Empiric Abx 2. D/c diltiazem due to spontaneous conversion 3. Urine Cultures 4. Monitor K+ and Na+ and replace PRN Clinical Quality Measures DVT/VTE Risk/Contraindication: Contraindications-Pharm: Other *list below* Other: hematoma MARY JO Francis DO 02/01/231953: History of Present Illness HPI/Chief Complaint Chief complaint: Fever with shortness of breath and A-fib with RVR HPI:This is a 72-year-old male who was just discharged home after prolonged hospital course following COVID who presented with new onset A-fib with RVR. Cardizem drip initiated which helped convert him to normal sinus rhythm. Unable to initiate anticoagulation due to rectus sheath hematoma. Source: patient, RN/MD, old records Past Ybqguli-Zjqewv-Lzeium Hx Patient Social History Marrital Status: single Employed/Student: retired Smoking Status: Former Smoker Past Medical History Surgeries: CABG, Coronary Stent Pneumonia, COPD Coronary Artery Disease, High Cholesterol, Hypertension Family Medical History Cardiovascular disease 19 FATHER 19 MOTHER G8 BROTHER G8 SISTER FH: breast cancer 19 MOTHER Hypertension 19 FATHER 19 MOTHER Review of Systems Constitutional: see HPI, malaise, weakness Physical Exam Physical Exam General Appearance: No Apparent Distress, Chronically ill Respiratory: No Accessory Muscle Use, No Respiratory Distress, Crackles, Wheezing Cardiovascular: Regular Rate, Rhythm Assessment/Plan Admission Diagnosis Assessment: New onset atrial fibrillation with rapid rapid ventricular response now converted normal sinus rhythm after Cardizem drip Rectus sheath hematoma unable to initiate anticoagulation COPD Recent COVID NSTEMI CAD previous bypass Former smoker Remote history of below the knee amputation Neurogenic bladder UTI Recurrent pneumonia Plan: Supportive care Monitor closely Moved to fourth floor Cardiology consult Admission Status: Inpatient Order (span 2 midnights) Reason for Inpatient Admission: af rvr with NSTEMI Supervisory-Addendum Brief Verification & Attestation Participated in pt care: history, MDM, physical Personally performed: exam, history, MDM, supervision of care Care discussed with: Medical Student Procedures: n/a Results interpretation: Verified all documentation Verification and Attestation of Medical Student E/M Service A medical student performed and documented this service in my presence. I reviewed and verified all information documented by the medical student and made modifications to such information, when appropriate. I personally performed the physical exam and medical decision making. Mary Jo Cano, Feb 01, 2023,19:54 PRANAV FREEMAN Feb 01, 2023 10:06 MARY JO CANO DO Feb 01, 2023 19:54
--- NOTE | 2023-02-01 10:29 | Occ Therapy Progress Note ---
Therapy Progress Note OT ordered received, Patient having ECHO performed, OT will return at next available opportunity QI COYLE OT Feb 01, 2023 10:29
--- NOTE | 2023-02-01 11:44 | Physical Therapy Evaluation ---
PT Evaluation-General Medical Diagnosis Admission Date Jan 31, 2023 at 20:31 Medical Diagnosis: A-fib with RVR Onset Date: Jan 31, 2023 Therapy Diagnosis Therapy Diagnosis: generalized weakness/debility Height/Weight Height (Feet): 5 Height (Inches): 9.00 Weight (Pounds): 124 Weight (Ounces): 0 Precautions Precautions/Isolations: Airborne Isolation, Droplet Isolation Weight Bear Status Left Lower Extremity: Left Referral Physician: Rachale Reason for Referral: Evaluation/Treatment Medical History Pertinent Medical History: Arthritis, CAD, COPD, GERD, HTN, Smoking Current History ER secondary to fatigue, fever and cough Reviewed History: Yes Social History Home: Single Level Current Living Status: Other Family Prior Prior Level of Function SCALE: Activities may be completed with or without assistive devices. 3-Htomxrbjyv-crtllww completes the activity by him/herself with no assistance from a helper. 5-Set-up or Clean-up Assistance-helper sets up or cleans up; patient completes activity. Goltry assists only prior to or following the activity. 4-Supervision or Touching Assistance-helper provides verbal cues and/or touch ing/steadying and/or contact guard assistance as patient completes activity. Assistance may be provided throughout the activity or intermittently. 3-Partial/Moderate Assistance-helper does LESS THAN HALF the effort. Goltry lifts, holds or supports trunk or limbs, but provides less than half the effort. 2-Substantial/Maximal Assistance-helper does MORE THAN HALF the effort. Goltry lifts or holds trunk or limbs and provides more than half the effort. 8-Dmlllzyry-fzumiq does ALL the effort. Patient does none of the effort to complete the activity. Or, the assistance of 2 or more helpers is required for the patient to complete the activity. If activity was not attempted, code reason: 7-Patient Refused. 9-Not Applicable-not attempted and the patient did not perform the activity before the current illness, exacerbation or injury. 10-Not Attempted due to Environmental Limitations-(lack of equipment, weather restraints, etc.). 88-Not Attempted due to Medical Conditions or Safety Concerns. Bed Mobility: 4 Transfers (B,C,W/C): 4 Gait: 4 Indoor Mobility (Ambulation): Needed Some Help Prior Devices Use: Walker PT Evaluation-Current Subjective Patient agrees to therapy and dons left BKA prosthesis with set up. Objective Patient Orientation: Confused Attachments: Central Line, Michael Catheter ROM/Strength ROM Lower Extremities bilateral LE WFL (left knee/hip flexion/extension WFL) Strength Lower Extremities Bilateral LE 3/5 grossly Integumentary/Posture Bladder Incontinence: Mihcael Cath Posture kyphotic Neuromuscular (Tone, Coordination, Reflexes) grossly intact Sensory Vision: Wears Glasses Hearing: Impaired Transfers Lying to Sitting/Side of Bed(Q: 4 Sit to Stand (QC): 3 Chair/Tvq-qk-Pakyx Xfer(QC): 3 Gait Mode of Locomotion: Walk Anticipated Mode of Locomotion: Walk Gait Assistive Device: FWW Balance Sitting Static: Fair Sitting Dynamic: Fair Standing Static: Fair Standing Dynamic: Poor Assessment/Needs Patient will benefit from skilled PT to address functional strength and mobility to improve current LOF to safely return to home with family at maximum LOF Rehab Potential: Guarded PT Group Home Goals Group Home Goals PT Retail Operations Specialist Goals Time Frame: Feb 19, 2023 Roll Left & Right (QC): 4 Sit to Lying (QC): 4 Lying-Sitting on Side/Bed(QC): 4 Sit to Stand (QC): 4 Chair/Sjw-gj-Mcqxc Xfer(QC): 4 Walk 10 feet (QC): 4 Walk 50ft with 2 Turns (QC): 4 Walk 150 ft (QC): 4 PT Plan Problem List Problem List: Activity Tolerance, Functional Strength, Safety, Balance, Gait, Transfer, Bed Mobility Treatment/Plan Treatment Plan: Continue Plan of Care Treatment Plan: Bed Mobility, Education, Functional Activity Gonzalez, Functional Strength, Gait, Safety, Therapeutic Exercise, Transfers Treatment Duration: Feb 19, 2023 Frequency: 6 times per week Estimated Hrs Per Day: .25 hour per day Time Time In: 1115 Time Out: 1131 DATE: Feb 01, 2023 Total Billed Treatment Time: 16 Total Billed Treatment 1 visit EVMod 16 min GINNA BRIONES PT Feb 01, 2023 11:44
--- NOTE | 2023-02-01 11:47 | Occupational Therapy Eval ---
OT Evaluation-General/PLF Medical Diagnosis Admission Date Jan 31, 2023 at 20:31 Medical Diagnosis: A fib Onset Date: Jan 31, 2023 Therapy Diagnosis Therapy Diagnosis: weakness Height/Weight Height (Feet): 5 Height (Inches): 9.00 Weight (Pounds): 124 Weight (Ounces): 0 Precautions Precautions/Isolations: Airborne Isolation, Droplet Isolation Referral Referral Reason: Evaluation/Treatment Medical History Pertinent Medical History: Arthritis, CAD, COPD, GERD, HTN, Smoking Social History Home: Single Level Current Living Status: Other Family ADL-Prior Level of Function SCALE: Activities may be completed with or without assistive devices. 0-Bntcabdgkm-mlabdys completes the activity by him/herself with no assistance from a helper. 5-Set-up or Clean-up Assistance-helper sets up or cleans up; patient completes activity. [place] assists only prior to or following the activity. 4-Supervision or Touching Assistance-helper provides verbal cues and/or touching/steadying and/or contact guard assistance as patient completes activity. Assistance may be provided throughout the activity or intermittently. 3-Partial/Moderate Assistance-helper does LESS THAN HALF the effort. [place] lifts, holds or supports trunk or limbs, but provides less than half the effort. 2-Substantial/Maximal Assistance-helper does MORE THAN HALF the effort. [place] lifts or holds trunk or limbs and provides more than half the effort. 0-Mduoqszdu-scygjo does ALL the effort. Patient does none of the effort to complete the activity. Or, the assistance of 2 or more helpers is required for the patient to complete the activity. If activity was not attempted, code reason: 7-Patient Refused. 9-Not Applicable-not attempted and the patient did not perform the activity b efore the current illness, exacerbation or injury. 10-Not Attempted due to Environmental Limitations-(lack of equipment, weather restraints, etc.). 88-Not Attempted due to Medical Conditions or Safety Concerns. ADL PLOF Comments Family assist 4 hours per patient Self Care: Needed Some Help Functional Cognition: Independent Drive Self: No OT Current Status Subjective Agreeable to participate Mental Status/Objective Patient Orientation: Person, Place, Time, Situation Attachments: Michael Catheter, IV, Oxygen, Other-See Comments (prosthesis) Current Upper Extremity ROM BUE ROM WFLs Upper Extremity Coordination FAIR + Upper Extremity Strength +3/5 grossly, production grip 4/5 delayed problem solving ADL-Treatment ADL-Current Dons prosthesis w/ min assist, delayed motor planning to exit bed, SBA for right shoe donning, remain in hospital gown, wash cloth to cleanse face w/ set up provided Eating (QC): 6 Oral Hygiene (QC): 5 Shower/Bathe Self (QC): 88 Lower Body Dressing (QC): 4 On/Off Footwear (QC): 4 Toileting Hygiene (QC): 7 Education OT Patient Education: Correct positioning, Modified ADL techniques, Progress toward Goal/Update tx plan, Purpose of tx/functional activities, Reviewed precautions, Rehab process, Safety issues, Transfer techniques, Use of adapted equipment Teaching Recipient: Patient Teaching Methods: Demonstration, Discussion Response to Teaching: Reinforcement Needed OT Residential Goals Steel Die Press Set Up Operator Goals 1=Demonstrate adherence to instructed precautions during ADL tasks. 2=Patient will verbalize/demonstrate understanding of assistive devices/modifications for ADL. 3=Patient will improve strength/tolerance for activity to enable patient to perform ADL's. OT Education/Plan Problem List/Assessment Assessment: Decreased Activ Tolerance, Decreased Safety Aware, Impaired Self- Care Skills Discharge Recommendations Plan/Recommendations: Continue POC Treatment Plan/Plan of Care Treatment,Training & Education: Yes Patient would benefit from OT for education, treatment and training to promote independence in ADL's, mobility, safety and/or upper extremity function for ADL's. Plan of Care: ADL Retraining, Concurrent Therapy, Functional Mobility, Group Exercise/Act as Ind, UE Funct Exercise/Act Treatment Duration: Feb 04, 2023 Frequency: 3 times per week (3-5 times per week) Estimated Hrs Per Day: .25 hour per day Agreement: Yes Rehab Potential: Fair Patents to have CT, up in recliner waiting Time Start Time: 11:00 Stop Time: 11:12 DATE: Feb 01, 2023 Total Time Billed (hr/min): 12 Billed Treatment Time EVM 12 min QI COYLE OT Feb 01, 2023 11:47
[2023-02-01] MEDS ORDERED: IOHEXOL 350 MG/ML 100 ML (OMNIPAQUE 350) VIAL IV ONE (12:15)
[2023-02-01] MEDS ORDERED: NS 100 ML (IVPB) BAG IV ONE (12:15)
[2023-02-01] MEDS ORDERED: HOLD METFORMIN - RECEIVED CONTRAST 20 ML VIAL IV SCH (12:15)
--- NOTE | 2023-02-01 13:03 | Diagnostic Imaging Report ---
INDICATION: 72-year-old ICU hospitalized patient, recent active bleed, follow-up. Recent bowel twisted with decompression. Recent myocardial infarction with triple bypass. EXAMINATION: CTA chest, abdomen, and pelvis. TECHNIQUE: Thin axial sections through the chest, abdomen, and pelvis are obtained following intravenous contrast bolus. Multiplanar MIP images were reconstructed and reviewed. All CT scans use one or more of the following dose optimizing techniques: Automated exposure control, MA and/or KvP adjustment based on patient size and exam type or iterative reconstruction. CORRELATION STUDY: CTA chest, CT abdomen and pelvis 01/31/2023. FINDINGS: CTA CHEST: Sternal wires appearing unremarkable and sternotomy intact. Heart size is mildly enlarged with coronary artery calcification. No significant pericardial effusion. There is calcification with tortuous course of the thoracic aorta. Ascending aorta measures approximately 4 cm. There is no significant pulmonary artery filling defect to suggest pulmonary embolism. No pathologically enlarged thoracic lymphadenopathy. Scattered areas of nonspecific wall thickening in the esophagus. Markedly elevated left diaphragm with large portion of gas-distended particularly splenic flexure of the colon in the left anterior lower chest. Resultant atelectasis and compression and consolidation in the left lower lobe. Additional atelectasis at the right lower lobe medially. A few additional scattered wispy-like opacities in both lung [place] could be reflective of minimal atelectasis or pneumonitis. No cal lobar consolidation. A few questionable areas of slightly more nodular opacities are present in the lung montague. CT ABDOMEN and PELVIS: Probable tiny hepatic dome cyst. Gallbladder is contracted with small gallstones. No significant bile duct dilatation. Pancreas, spleen, and adrenal glands are grossly unremarkable. Kidneys are unremarkable. Calcification in the jose is likely in the vasculature. No obstruction. Dense aortoiliac vascular calcification. There is marked narrowing at the mid abdominal aorta owing to the bulky calcification. There are also rather marked areas of multifocal stenosis with near-occlusion and/or occlusion of the bilateral common, internal, and external iliac arteries. Low attenuating right rectus sheath hematoma is perhaps slightly larger, currently 4.8 x 1.9 cm (measured in the similar fashion previously 4.3 x 1.7 cm). Craniocaudal length is 6.9 cm (previously 7 cm). Slight asymmetric nodular thickening of the left rectus abdominis muscle. There is also slight asymmetric thickening over the left oblique musculature. Gastrointestinal tract without obstruction. Bladder is largely decompressed around a Michael catheter. Stool retention at the level of the rectal vault. Postoperative changes of right hip arthroplasty. The nodular area of hyperdense focus in the superior posterior right aspect is again demonstrated. IMPRESSION: CTA CHEST: 1. No CTA evidence for pulmonary embolism. Negative for acute aortic syndrome. 2. Prior sternotomy with extensive coronary artery calcification. 3. Elevated left diaphragm with compressive atelectasis in the left lower lobe. CT ABDOMEN and PELVIS: 1. Very slight interval enlargement of the acute right rectus sheath hematoma. The hyperdense nodular focus is again demonstrated, which may be reflective of continued contrast extravasation. However, the overall size change is very minimal. Dictated by: Dictated on workstation # [id number]
[2023-02-01 13:30] VITALS: BP 98/57
[2023-02-01 14:13] VITALS: BP 98/57
[2023-02-01] MEDS ORDERED: NYST1000 PO (15:37)
[2023-02-01] MEDS ORDERED: TIOT18CA2 IH (15:37)
[2023-02-01] MEDS ORDERED: NF-PLET100 PO (15:37)
[2023-02-01 16:04] VITALS: BP 132/75
--- NOTE | 2023-02-01 16:18 | CONSULTATION REPORT ---
DATE OF SERVICE: 02/01/2023 ADMITTING PHYSICIAN: Dr. Cano. INDICATIONS: The patient is a 72-year-old male who presented to the Emergency Department with fever, cough, congestion as well as fatigue. The patient was recently discharged on 01/27 secondary to COVID, exacerbation of chronic obstructive pulmonary disease, and respiratory failure. The patient also was found to be in atrial fibrillation with a rapid ventricular response. He was also on anticoagulation with aspirin and Plavix due to his history of coronary artery disease. The patient did have a CT scan of the chest which did show the abdomen and a inferior right rectus sheath hematoma was identified, which was small and asymptomatic. This phenomenon is common with forceful coughing; however, the vast majority of these do stop on their own. The patient is comfortable with stable vital signs and stable labs. Patients daughter states that this is chronic and he was found to have this several weeks. ago after a lovenox injection. Patient is asymptomatic and does not have any significant abdominal pain. Patient also does have a reducible umbilical hernia. PAST MEDICAL HISTORY: Coronary artery disease, peripheral vascular disease, hypertension, hypercholesterolemia, COPD, congestive heart failure, degenerative joint disease. PAST SURGERIES: Coronary artery bypass grafting x3, left above-knee amputation, cardiac catheterization and stent placement, right hip ORIF, left distal radial ORIF. ALLERGIES: NO KNOWN DRUG ALLERGIES. MEDICATIONS: Aspirin 81 mg daily, atorvastatin 40 mg daily, Plavix 75 mg daily, Colace 100 mg b.i.d., finasteride 5 mg daily, fluticasone/vilanterol 200/25 mcg inhaler daily, furosemide 40 mg daily, gabapentin 300 mg q.i.d., hydrocodone p.r.n., ipratropium/albuterol breathing treatment p.r.n., lansoprazole 30 mg b.i.d., lidocaine 4% patch daily, losartan 25 mg daily, potassium 10 mEq daily, tamsulosin 0.4 mg daily, Spiriva 18 mcg daily, tramadol p.r.n., cyclobenzaprine 10 mg t.i.d., erythromycin base 250 mg t.i.d. SOCIAL HISTORY: Previous smoke, negative alcohol. FAMILY HISTORY: Mother, breast cancer. VITAL SIGNS: Temperature 36.2, blood pressure 98/57, pulse 98, respirations 18, pulse ox 98% on room air. REVIEW OF SYSTEMS: A well-nourished male, currently in no acute distress. He is not experiencing shortness of breath or difficulty breathing. He does have worsening cough as well as some sputum production. No hemoptysis. No nausea, vomiting. No diarrhea or constipation. No fever, chills, no recent inadvertent weight loss. All other review of systems negative. PHYSICAL EXAMINATION: CHEST: Distant breath sounds and scattered wheezes bilaterally. HEART: Regular. No murmurs. EXTREMITIES: Left below-knee amputation to the right lower extremity. Negative Homans sign. HEENT: No scleral icterus. No cervical lymphadenopathy. ABDOMEN: Soft, nondistended. There is mild discomfort in the right lower abdominal quadrant. There is not any abdominal distention. Reducible umbilical hernia. SKIN: Warm, dry. LABORATORY DATA: WBC 6.2, hemoglobin 10.1, hematocrit 30, platelets 487, BUN 22, creatinine 0.63. ASSESSMENT AND PLAN: A 72-year-old male with a previous COVID and exacerbation of chronic obstructive pulmonary disease and associated cough with recurrent symptoms and the development of a right inferior rectus sheath hematoma due to avulsion of likely the inferior epigastric artery. At this time, the patient is clinically stable and asymptomatic. The vast majority of this rectus sheath hematoma do resolve on their own due to the pressure effects of the abdominal wall layers and eventual tamponade of the bleeding. We will recommend continued conservative management with continued monitoring. The patient also has a very high risk for any type of surgical intervention. From our standpoint, anticoagulation may be restarted. Job ID: [id number] DocumentID: [id number] Dictated Date: 02/01/2023 14:59:39 Meat Specialist Date: 02/01/2023 15:26:00 Dictated By: BALDO MARTEL MD [facility]
[2023-02-01] MEDS ORDERED: HYDROcodone/ACETAMINOPHEN 10/325 TABLET PO PRN (16:45)
[2023-02-01] MEDS ORDERED: RT-Ipratropium/Albuterol NEB 3 ML VIAL IH PRN (16:45)
[2023-02-01] MEDS: TAMSULOSIN 0.4 MG (FLOMAX) CAP PO SCH (18:41)
[2023-02-01] MEDS: NYSTATIN ORAL SUSP 5 ML UDC PO SCH (18:41)
[2023-02-01 19:29] VITALS: BP 118/70
[2023-02-01] MEDS: FINASTERIDE 5 MG TABLET PO SCH (20:34)
[2023-02-01] MEDS ORDERED: DOCUSATE SODIUM 100 MG CAPSULE PO SCH (21:00)
[2023-02-01] MEDS ORDERED: NON-FORMULARY MEDICATION 1 EA EA (Cilostazol 100 MG) PO SCH (21:00)
[2023-02-01 23:29] VITALS: BP 123/73
[2023-02-02] MEDS: CEFEPIME INJECTION 1,000 MG in NS (IVPB) 50 ML 50 ML IV SCH ×5 (01:13→23:48)
[2023-02-02] MEDS: NYSTATIN ORAL SUSP 5 ML UDC PO SCH ×5 (01:13→23:49)
[2023-02-02] MEDS: diphenhydrAMINE 25 MG TABLET PO PRN ×3 (01:13→19:56)
[2023-02-02] MEDS: RT-Ipratropium/Albuterol NEB 3 ML VIAL INH SCH ×6 (02:35→23:15)
[2023-02-02 03:37] VITALS: BP 122/71
[2023-02-02 05:41] LABS: BASOPHILS # (AUTO) 0.1 10^3/uL (0.0-0.1); BASOPHILS % (AUTO) 1 % (0-10); EOSINOPHILS # (AUTO) 0.1 10^3/uL (0.0-0.3); EOSINOPHILS % (AUTO) 1 % (0-10); HEMATOCRIT 32 % (40-54); HEMOGLOBIN 10.6 g/dL (13.3-17.7); LYMPHOCYTES # (AUTO) 1.3 10^3/uL (1.0-4.0); LYMPHOCYTES % (AUTO) 18 % (12-44); MEAN CORPUSCULAR HEMOGLOBIN 32 pg (25-34); MEAN CORPUSCULAR HGB CONC 33 g/dL (32-36); MEAN CORPUSCULAR VOLUME 96 fL (80-99); MEAN PLATELET VOLUME 8.7 fL (9.0-12.2); MONOCYTES # (AUTO) 0.8 10^3/uL (0.0-1.0); MONOCYTES % (AUTO) 11 % (0-12); NEUTROPHILS # (AUTO) 4.6 10^3/uL (1.8-7.8); NEUTROPHILS % (AUTO) 68 % (42-75); PLATELET COUNT 485 10^3/uL (130-400); WHITE BLOOD COUNT 6.8 10^3/uL (4.3-11.0)
[2023-02-02] MEDS ORDERED: NON-FORMULARY MEDICATION 1 EA EA (Lansoprazole 30 MG) PO SCH (06:00)
[2023-02-02 06:13] LABS: ALBUMIN 3.2 GM/DL (3.2-4.5); BILIRUBIN,TOTAL 0.4 MG/DL (0.1-1.0); CALCIUM 8.4 MG/DL (8.5-10.1); CREATININE SERUM 0.59 MG/DL (0.60-1.30); MAGNESIUM 2.2 MG/DL (1.6-2.4); POTASSIUM 2.9 MMOL/L (3.6-5.0)
[2023-02-02] MEDS: POTASSIUM CHLORIDE 20 MEQ TABLET PO SCH (06:37)
[2023-02-02] MEDS ORDERED: POTASSIUM CL 10MEQ/50ML IVPB 50 ML IV ONE (06:38)
[2023-02-02] MEDS ORDERED: NS IV 500 ML 500 ML ONE (06:42)
[2023-02-02] MEDS: PANTOPRAZOLE 40 MG TABLET PO SCH ×2 (06:45→14:42)
[2023-02-02] MEDS: POTASSIUM CHLORIDE 10 MEQ TABLET PO SCH (06:45)
[2023-02-02] MEDS ORDERED: NS IV 500 ML 500 ML IV ONE (06:45)
[2023-02-02] MEDS ORDERED: POTASSIUM CL 10MEQ/50ML IVPB 50 ML IV SCH (07:00)
[2023-02-02 07:15] VITALS: BP 134/81
[2023-02-02] MEDS: POTASSIUM CL 10MEQ/50ML IVPB 50 ML IV SCH ×8 (07:25→16:39)
[2023-02-02] MEDS ORDERED: TROUGH ORDER-PHARMACY XX ONE ×2 (08:00→08:30)
--- NOTE | 2023-02-02 08:17 | Diagnostic Imaging Report ---
Indication: Respiratory failure. Time of Exam: 1:23 AM Correlation is made with prior chest one day earlier. Changes of median sternotomy and CABG are noted. Left hemidiaphragm remains elevated. There is resultant left basilar atelectasis. Right lung is clear. There is no infiltrate or failure. There is no effusion. There is gaseous distention of bowel loops in the left upper quadrant. IMPRESSION: Stable chest with stable elevation left hemidiaphragm with left basilar atelectasis since exam one day earlier. Dictated by: Dictated on workstation # [id number]
[2023-02-02] MEDS ORDERED: POTASSIUM CL 10MEQ/50ML IVPB 150 ML IV ONE (08:39)
[2023-02-02] MEDS: CLOPIDOGREL 75 MG TABLET PO SCH (09:00)
[2023-02-02] MEDS: ASPIRIN enteric coated 81MG TABLET PO SCH (09:00)
[2023-02-02] MEDS: FUROSEMIDE 40 MG TABLET PO SCH (09:00)
[2023-02-02] MEDS ORDERED: CLOPIDOGREL 75 MG TABLET PO SCH (09:00)
[2023-02-02] MEDS: LOSARTAN 25 MG TABLET PO SCH (09:00)
[2023-02-02] MEDS ORDERED: NON-FORMULARY MEDICATION 1 EA EA (Potassium Chloride 10 MEQ) PO SCH (09:00)
[2023-02-02] MEDS ORDERED: ASPIRIN enteric coated 81MG TABLET PO SCH (09:00)
[2023-02-02] MEDS ORDERED: TIOTROPIUM BROMIDE IH SCH (09:00)
[2023-02-02] MEDS: DOCUSATE SODIUM 100 MG CAPSULE PO SCH ×2 (09:06→19:56)
[2023-02-02] MEDS: SENNOSIDES 8.6 MG TABLET PO SCH ×2 (09:06→19:57)
[2023-02-02] MEDS: VANCOMYCIN 1 GM/NS 250 ML IVPB IV SCH ×2 (09:25)
[2023-02-02] MEDS: TIOTROPIUM INH 4 GM (SPIRIVA Respimat) IH SCH (09:34)
[2023-02-02] MEDS: FLUTICASONE/VILANTEROL 200/25 MCG (7 DOSES) IH SCH (09:39)
--- NOTE | 2023-02-02 10:09 | Cardiology Progress Note ---
Subjective Date Seen by Provider: Feb 02, 2023 Time Seen by Provider: 08:25 Subjective/Events-last exam Patient is sitting up in chair, eating breakfast. Denies any chest pain or increased dyspnea. Focused Exam Lactate Level 01/31/23 17:35: Lactic Acid Level 2.77*H 01/31/23 19:55: Lactic Acid Level 0.98 Objective-Cardiology Exam Last Set of Vital Signs Vital Signs 02/02/23 02/02/23 02/02/23 08:00 11:26 12:13 Temp 36.6 Pulse 103 Resp 17 B/P (MAP) 129/79 (96) Pulse Ox 95 O2 Delivery Room Air O2 Flow Rate 0.00 I&O Intake and Output 02/02/23 00:00 Intake Total 990 ml Output Total 1700 ml Balance -710 ml Intake Oral 990 ml Output Urine Total 1700 ml # Bowel Movements 1 General: Alert, Oriented X3 HEENT: Atraumatic, PERRLA Lungs: Clear to Auscultation, Normal Air Movement Heart: Regular Rate Abdomen: Normal Bowel Sounds, Soft Skin: No Rashes, No Significant Lesion Neuro: Normal Speech Psych/Mental Status: Mental Status NL, Mood NL Results Lab Laboratory Tests 02/02/23 05:18 A/P-Cardiology Admission Diagnosis Sepsis Acute respiratory failure Non-ST elevation myocardial infarction Coronary artery disease Assessment/Plan Sepsis, fever and congestion Status post recent respiratory failure with COPD exacerbation with COVID-19 positive. Return for worsening fever and generalized malaise. Slowly improving. Non-ST elevation myocardial infarction. Elevation in troponin Conservative management is recommended at this point History of CAD/CABG, borderline positive troponin which is getting better on serial examinations. coronary angiography done at [facility] in [place]. Coronary angiography was done on 01/06/2023. According to the daughter no PCI was done. Patient does have previous history of CABG. Continue dual antiplatelet therapy, Lovenox Questionable atrial fibrillation with rapid ventricular response, careful review of his EKG showed multifocal atrial tachycardia probably secondary to hypoxemia Has been on Cardizem drip On Lovenox Acute on chronic congestive heart failure. 2D Echo done showing EF 55-65%, aortic sclerosis, mild MR, PA 35-40mmHg. Hypertension, monitor blood pressure COPD Extensive peripheral arterial disease per history Urinary retention Supervisory-Addendum Brief Supervisory Addendum Participated in pt care: history, MDM, physical Personally performed: exam, history, MDM Care discussed with: FRANCO Results interpretation: Verified all documentation Notes: Patient was seen and evaluated with Syed, examination performed, management plan was discussed, agree with the current scribed note, I made few changes to the note using Italic font Patient was seen at bedside, sitting comfortably, no new complaint Receiving potassium supplement Continue to monitor heart rate and blood pressure SYED OCONNOR Feb 02, 2023 10:09 OLEGARIO BOND MD Feb 02, 2023 14:35
--- NOTE | 2023-02-02 10:54 | Occupational Ther Daily Note ---
OT Current Status-Daily Note Subjective OT attempted session early this am, patient decline as was on the phone. OT attempted again and patient had breakfast on bedtray table over himself in bed. Daughter was present and requested patient eat first. OT positioned WC bedside w/ prosthesis placed on seat for patient to apply prosthesis himself and prepare for OT to return. On third return patient remained in bed and Prosthesis remains on WC seat. Second daughter intervention to assist patient w/ OOB and applying prosthesis. OT educated patient daughter to allow patient to perform tasks for OT to assess tolerance, physical limitations and safety. Mental Status/Objective Patient Orientation: Person, Place, Time, Situation Attachments: Michael Catheter urine output is red in color. RT is waiting for Patient to complete OT session ADL-Treatment After OT education to patient daughter for patient to complete skill sets, Patient is able to remove blankets, don prosthesis in bed, don right Velcro shoe in supine/recline in bed. Patient required 80 second rest period to recover before sitting EOB. Patient impulsively stood to transfer from bed to W/C w/o engaging WC brakes, monitoring Michael tube and IV lines. OT instructed patient to STOP and sit back down and perform a safety assessment of his plan to transfer w/ tubes and lines. Patient note the lines and tube however executed transfer again w/o changing placement of lines/tubes and tangled self w/ Michael tub and sat on IV line. OT monitored to allow slack to prevent injury. Patient is unaw are he sat on IV line. OT facilitated safety planning again to stand after move IV line out of way and untangle Michael. Patient require physical assistance to perform safety maneuver. 40 second rest period required for patient to regain respirations comfortable to him Therapy Code Descriptions/Definitions Functional Agency Measure: 0=Not Assessed/NA 4=Minimal Assistance 1=Total Assistance 5=Supervision or Setup 2=Maximal Assistance 6=Modified Agency 3=Moderate Assistance 7=Complete IndependenceSCALE: Activities may be completed with or without assistive devices. 5-Wnlbwfprrh-rllxfak completes the activity by him/herself with no assistance from a helper. 5-Set-up or Clean-up Assistance-helper sets up or cleans up; patient completes activity. [place] assists only prior to or following the activity. 4-Supervision or Touching Assistance-helper provides verbal cues and/or touching/steadying and/or contact guard assistance as patient completes activity. Assistance may be provided throughout the activity or intermittently. 3-Partial/Moderate Assistance-helper does LESS THAN HALF the effort. [place] lifts, holds or supports trunk or limbs, but provides less than half the effort. 2-Substantial/Maximal Assistance-helper does MORE THAN HALF the effort. [place] lifts or holds trunk or limbs and provides more than half the effort. 7-Tavmudmil-otaqdz does ALL the effort. Patient does none of the effort to complete the activity. Or, the assistance of 2 or more helpers is required for the patient to complete the activity. If activity was not attempted, code reason: 7-Patient Refused. 9-Not Applicable-not attempted and the patient did not perform the activity before the current illness, exacerbation or injury. 10-Not Attempted due to Environmental Limitations-(lack of equipment, weather restraints, etc.). 88-Not Attempted due to Medical Conditions or Safety Concerns. Eating (QC): 6 (Slow eater, first ate breakfast w/o denture. Patient did not think to put dentures in mouth to eat. Dentures are infront of patient on tray) Oral Hygiene (QC): 5 Lower Body Dressing (QC): 4 (poor safety awareness) On/Off Footwear: 5 (Extra time needed, rest period at completion) Toilet Transfer (QC): 4 (poor safety awareness) Patient reports daily routine to use as primary mode of transportation on home. While in bed patient dons prosthesis daily, transfer to , self propels to kitchen to make coffee. Standing intermittently to make coffee. Patient then uses bathroom and gets dressed level. Patient showers 3-4 times per week w/ Walk in shower and chair in shower. Patient is unable to perform activity d/t frequent rest periods needed and length of time to complete tasks d/t amount of rest periods Education OT Patient Education: Correct positioning, Energy conservation, Exercise progr am, Instructions to caregiver, Modified ADL techniques, Progress toward Goal/Update tx plan, Purpose of tx/functional activities, Reviewed precautions, Rehab process, Safety issues, Transfer techniques, Use of adapted equipment, W/C management Teaching Recipient: Patient, Family Teaching Methods: Demonstration, Discussion Response to Teaching: Verbalize Understanding, Reinforcement Needed OT Wheel And Axle Inspector Goals Wheel And Axle Inspector Goals 1=Demonstrate adherence to instructed precautions during ADL tasks. 2=Patient will verbalize/demonstrate understanding of assistive devices/modifications for ADL. 3=Patient will improve strength/tolerance for activity to enable patient to pe rform ADL's. OT Education/Plan Problem List/Assessment Assessment: Decreased Activ Tolerance, Decreased Safety Aware, Impaired I ADL's, Impaired Self-Care Skills Discharge Recommendations Plan/Recommendations: Continue POC Treatment Plan/Plan of Care Treatment,Training & Education: Yes Patient would benefit from OT for education, treatment and training to promote independence in ADL's, mobility, safety and/or upper extremity function for ADL's. Plan of Care: ADL Retraining, Concurrent Therapy, Functional Mobility, Group Exercise/Act as Ind, UE Funct Exercise/Act Treatment Duration: Feb 04, 2023 Frequency: 3 times per week Estimated Hrs Per Day: .25 hour per day Agreement: Yes Rehab Potential: Fair Time Start Time: 10:15 Stop Time: 10:40 DATE: Feb 02, 2023 Total Time Billed (hr/min): 25 Billed Treatment Time ADL 25 min QI COYLE OT Feb 02, 2023 10:54
[2023-02-02] MEDS: FLUTICASONE NASAL SPRAY (120 SPRAYS) NS SCH (11:21)
[2023-02-02 11:26] VITALS: BP 129/79
--- NOTE | 2023-02-02 11:58 | Progress Note - Hospitalist ---
PRANAV FREEMAN 02/02/23 1158: Subjective HPI/CC On Admission Date Seen by Provider: Feb 02, 2023 Time Seen by Provider: 09:15 Chief complaint: Fever with shortness of breath and A-fib with RVR HPI:This is a 72-year-old male who was just discharged home after prolonged hospital course following COVID who presented with new onset A-fib with RVR. Cardizem drip initiated which helped convert him to normal sinus rhythm. Unable to initiate anticoagulation due to rectus sheath hematoma. Subjective/Events-last exam Today, pt is feeling fair with some minor shortness breath that he attributes to nasal congestion. Pt's daughters present and had some concerns related to blood in urine and new lesion on pt's right forearm. Body Presser stopped lovenox believing this was causing the hematuria. Nurse told pt that lesion on right forearm was probably due to failed IV access that led to blown vessel. No other concerns or questions were noted Review of Systems General: Fatigue Pulmonary: Dyspnea Cardiovascular: No: Chest Pain Gastrointestinal: No: Diarrhea, Constipation Focused Exam Lactate Level 01/31/23 17:35: Lactic Acid Level 2.77*H 01/31/23 19:55: Lactic Acid Level 0.98 Objective Exam Vital Signs Vital Signs Date Time Temp Pulse Resp B/P (MAP) Pulse Ox O2 Delivery O2 Flow Rate FiO2 02/02/23 11:26 36.6 97 17 129/79 (96) 95 Room Air 02/02/23 08:00 0.00 Capillary Refill : General Appearance: No Apparent Distress, Chronically ill Respiratory: Lungs Clear, Normal Breath Sounds (right side), No Accessory Muscle Use, No Respiratory Distress, Decreased Breath Sounds (left side) Cardiovascular: Regular Rate, Rhythm, No Gallop, No Murmur Neurologic/Psychiatric: Alert, Oriented x3, Normal Mood/Affect Skin: Other Results/Procedures Lab Laboratory Tests 02/02/23 05:18 Patient resulted labs reviewed. Assessment/Plan Assessment and Plan Assess & Plan/Chief Complaint Assessment 1.New-onset AFIB with RVR 2. UTI 3. Sepsis 4. Respiratory Alkalosis Plan 1. Empiric Abx 2. D/c diltiazem due to spontaneous conversion 3. Urine Culture 4. Monitor K+ and Na+ and replace PRN 5. Lasix Clinical Quality Measures DVT/VTE Risk/Contraindication: Contraindications-Pharm: Other *list below* Other: hematoma abominal MARY JO CANO DO 02/02/231951: Subjective Subjective/Events-last exam Patient doing a little better Awaiting skilled placement Hematuria will resolve after Lovenox DC Review of Systems General: Fatigue Objective Exam General Appearance: No Apparent Distress, WD/WN, Chronically ill Respiratory: No Accessory Muscle Use, No Respiratory Distress, Decreased Breath Sounds (left side) Cardiovascular: Regular Rate, Rhythm Neurologic/Psychiatric: Alert, Oriented x3 Assessment/Plan Assessment and Plan Assess & Plan/Chief Complaint Await skilled facility Supervisory-Addendum Brief Verification & Attestation Participated in pt care: history, MDM, physical Personally performed: exam, history, MDM, supervision of care Care discussed with: Medical Student Procedures: n/a Results interpretation: Verified all documentation Verification and Attestation of Medical Student E/M Service A medical student performed and documented this service in my presence. I reviewed and verified all information documented by the medical student and made modifications to such information, when appropriate. I personally performed the physical exam and medical decision making. Mary Jo Cano, Feb 02, 2023,19:51 PRANAV FREEMAN Feb 02, 2023 11:58 MARY JO CANO DO Feb 02, 2023 19:52
--- NOTE | 2023-02-02 12:52 | Physical Therapy Daily Note ---
PT Daily Note-Current Subjective Patient sitting in chair upon PT arrival, agreeable to treatment. Patient rates pain in back at 8/10. Pain Section J - Health Conditions 1. Rarely or not at all 2. Occasionally 3. Frequently 4. Almost constantly 8. Unable to answer Pain Effect on Sleep: 3 Pain Interference with Therapy: 3 Pain Interference w/Day-to-Day: 3 Transfers SCALE: Activities may be completed with or without assistive devices. 0-Oxdqnhdbqm-tdksqci completes the activity by him/herself with no assistance from a helper. 5-Set-up or Clean-up Assistance-helper sets up or cleans up; patient completes activity. [place] assists only prior to or following the activity. 4-Supervision or Touching Assistance-helper provides verbal cues and/or touching/steadying and/or contact guard assistance as patient completes activity. Assistance may be provided throughout the activity or intermittently. 3-Partial/Moderate Assistance-helper does LESS THAN HALF the effort. [place] lifts, holds or supports trunk or limbs, but provides less than half the effort. 2-Substantial/Maximal Assistance-helper does MORE THAN HALF the effort. [place] lifts or holds trunk or limbs and provides more than half the effort. 2-Oomarrdeh-iidash does ALL the effort. Patient does none of the effort to complete the activity. Or, the assistance of 2 or more helpers is required for the patient to complete the activity. If activity was not attempted, code reason: 7-Patient Refused. 9-Not Applicable-not attempted and the patient did not perform the activity before the current illness, exacerbation or injury. 10-Not Attempted due to Environmental Limitations-(lack of equipment, weather restraints, etc.). 88-Not Attempted due to Medical Conditions or Safety Concerns. Sit to Stand (QC): 4 Chair/Ttj-aq-Bxymq Xfer(QC): 4 Weight Bearing Right Lower Extremity: Right Weight Bearing/Tolerated Left Lower Extremity: Left Weight Bearing/Tolerated Gait Training Does the Patient Walk?: Yes Distance: 30' Walk 10 feet (QC): 4 Gait Assistive Device: FWW Assessment Current Status: Poor Progress Patient initially resistant to treatment, however daughter helps to motivate patient. Patient performs all observed transfers with SBA. Patient ambulates 30 feet with FWW, with SBA/CGA. Patient encouraged to go further however reports "I can't breathe" in reference to his nose being clogged. Patient in chair post treatment with all needs met, nurse in the room and call light in hand. PT Penitentiary Goals Penitentiary Goals PT Toolroom Clerk Goals Time Frame: Feb 19, 2023 Roll Left & Right (QC): 4 Sit to Lying (QC): 4 Lying-Sitting on Side/Bed(QC): 4 Sit to Stand (QC): 4 Chair/Nzy-hi-Eetrf Xfer(QC): 4 Walk 10 feet (QC): 4 Walk 50ft with 2 Turns (QC): 4 Walk 150 ft (QC): 4 PT Plan Treatment/Plan Treatment Plan: Continue Plan of Care Treatment Plan: Bed Mobility, Education, Functional Activity Gonzalez, Functional Strength, Gait, Safety, Therapeutic Exercise, Transfers Treatment Duration: Feb 19, 2023 Frequency: 6 times per week Estimated Hrs Per Day: .25 hour per day Safety Risks/Education Patient Education: Gait Training, Transfer Techniques Teaching Recipient: Patient Teaching Methods: Demonstration, Discussion Response to Teaching: Reinforcement Needed Time Time In: 1110 Time Out: 1120 DATE: Feb 02, 2023 Total Billed Treatment Time: 10 Total Billed Treatment Visit, GT YOCASTA STOCK PT Feb 02, 2023 12:52
[2023-02-02 15:30] VITALS: BP 106/67
[2023-02-02] MEDS: oxyCODONE IMMEDIATE RELEASE 5 MG TABLET PO PRN ×2 (15:44→23:47)
[2023-02-02] MEDS: NS IV 500 ML 500 ML IV SCH (17:00)
[2023-02-02] MEDS: TAMSULOSIN 0.4 MG (FLOMAX) CAP PO SCH (17:33)
--- NOTE | 2023-02-02 17:49 | Progress Note ---
Subjective Date Seen by a Provider: Feb 02, 2023 Time Seen by a Provider: 18:00 Subjective/Events-last exam doing well. still having some respiratory issues. no abd pain. also had a reducible umbilical hernia. Focused Exam Lactate Level 01/31/23 17:35: Lactic Acid Level 2.77*H 01/31/23 19:55: Lactic Acid Level 0.98 Objective Exam Vital Signs Date Time Temp Pulse Resp B/P (MAP) Pulse Ox O2 Delivery O2 Flow Rate FiO2 02/02/23 15:30 36.7 100 17 106/67 (80) 95 Room Air 02/02/23 15:01 96 Room Air 02/02/23 12:13 103 02/02/23 11:26 36.6 97 17 129/79 (96) 95 Room Air 02/02/23 10:29 96 Room Air 02/02/23 08:00 Room Air 0.00 02/02/23 07:43 106 02/02/23 07:15 36.7 99 16 134/81 (98) 94 Room Air 02/02/23 06:43 96 Room Air 02/02/23 03:37 36.8 100 18 122/71 (88) 94 Room Air 0.00 0.00 02/02/23 02:36 Room Air 02/02/23 01:00 105 02/01/23 23:29 36.8 104 20 123/73 (90) 92 Room Air 0.00 0.00 02/01/23 21:42 Room Air 02/01/23 20:41 Room Air 02/01/23 19:29 37.4 100 20 118/70 (86) 93 Room Air 02/01/23 19:00 101 02/01/23 18:59 Room Air I & O 02/02/23 07:00 Intake Total 1120 ml Output Total 2300 ml Balance -1180 ml Capillary Refill : General Appearance: No Apparent Distress HEENT: PERRL/EOMI Neck: Full Range of Motion Respiratory: Chest Non Tender, Decreased Breath Sounds, Rhonci, Wheezing Cardiovascular: Regular Rate, Rhythm Gastrointestinal: normal bowel sounds, soft, tenderness Extremity: Normal Capillary Refill Neurologic/Psychiatric: Alert, Oriented x3 Skin: Normal Color Lymphatic: No Adenopathy Results Lab Laboratory Tests 02/02/23 05:18: White Blood Count 6.8, Red Blood Count 3.31L, Hemoglobin 10.6L, Hematocrit 32L, Mean Corpuscular Volume 96, Mean Corpuscular Hemoglobin 32, Mean Corpuscular Hemoglobin Concent 33, Red Cell Distribution Width 17.1H, Platelet Count 485H, Mean Platelet Volume 8.7L, Immature Granulocyte % (Auto) 1, Neutrophils (%) (Auto) 68, Lymphocytes (%) (Auto) 18, Monocytes (%) (Auto) 11, Eosinophils (%) (Auto) 1, Basophils (%) (Auto) 1, Neutrophils # (Auto) 4.6, Lymphocytes # (Auto) 1.3, Monocytes # (Auto) 0.8, Eosinophils # (Auto) 0.1, Basophils # (Auto) 0.1, Immature Granulocyte # (Auto) 0.0, Sodium Level 135, Potassium Level 2.9L, Chloride Level 104, Carbon Dioxide Level 21, Anion Gap 10, Blood Urea Nitrogen 3L, Creatinine 0.59L, Estimat Glomerular Filtration Rate 104, BUN/Creatinine Ratio 5, Glucose Level 93, Calcium Level 8.4L, Corrected Calcium 9.0, Magnesium Level 2.2, Total Bilirubin 0.4, Aspartate Amino Transf (AST/SGOT) 21, Alanine Aminotransferase (ALT/SGPT) 17, Alkaline Phosphatase 76, Total Protein 6.0L, Albumin 3.2 02/02/23 08:35: Vancomycin Level Trough 13.2 Microbiology 01/31/23 MRSA Screen - Final, Complete MRSA not isolated 01/31/23 Urine Culture - Final, Complete NO GROWTH 01/31/23 Blood Culture - Preliminary, Resulted Assessment/Plan Assessment/Plan Assess & Plan/Chief Complaint exacerbation COPD with previous recent covid and cough induced inferior epigastric artery injury and right rectus sheath hematoma. stable. asymptomatic and stable Hb. cont OAC. ambulate as tolerated. Clinical Quality Measures DVT/VTE Risk/Contraindication: Contraindications-Pharm: Other *list below* Other: hematoma BALDO Subramanian MD Feb 02, 2023 17:49
[2023-02-02 19:23] VITALS: BP 92/56
[2023-02-02] MEDS: FINASTERIDE 5 MG TABLET PO SCH (19:56)
[2023-02-02] MEDS: HYPOCHLOROUS ACID/NaCl WOUND SOLN 250 ML IR PRN (20:01)
[2023-02-02] MEDS: RT-Ipratropium/Albuterol NEB 3 ML VIAL INH PRN (21:06)
[2023-02-02 23:29] VITALS: BP 117/78
[2023-02-03] VITALS (7 sets, daily range): BP systolic 102–127; BP diastolic 63–78
[2023-02-03] MEDS: RT-Ipratropium/Albuterol NEB 3 ML VIAL INH SCH ×6 (03:30→21:59)
[2023-02-03] MEDS: CEFEPIME INJECTION 1,000 MG in NS (IVPB) 50 ML 50 ML IV SCH ×4 (05:30→23:15)
[2023-02-03] MEDS: NYSTATIN ORAL SUSP 5 ML UDC PO SCH ×4 (05:30→23:16)
[2023-02-03] MEDS: PANTOPRAZOLE 40 MG TABLET PO SCH ×2 (05:40→16:04)
[2023-02-03] MEDS: POTASSIUM CHLORIDE 10 MEQ TABLET PO SCH (05:42)
[2023-02-03 05:48] LABS: BASOPHILS # (AUTO) 0.1 10^3/uL (0.0-0.1); BASOPHILS % (AUTO) 1 % (0-10); EOSINOPHILS # (AUTO) 0.1 10^3/uL (0.0-0.3); EOSINOPHILS % (AUTO) 1 % (0-10); HEMATOCRIT 30 % (40-54); HEMOGLOBIN 10.1 g/dL (13.3-17.7); LYMPHOCYTES # (AUTO) 1.3 10^3/uL (1.0-4.0); LYMPHOCYTES % (AUTO) 21 % (12-44); MEAN CORPUSCULAR HEMOGLOBIN 32 pg (25-34); MEAN CORPUSCULAR HGB CONC 33 g/dL (32-36); MEAN CORPUSCULAR VOLUME 97 fL (80-99); MEAN PLATELET VOLUME 8.7 fL (9.0-12.2); MONOCYTES # (AUTO) 0.9 10^3/uL (0.0-1.0); MONOCYTES % (AUTO) 15 % (0-12); NEUTROPHILS # (AUTO) 3.9 10^3/uL (1.8-7.8); NEUTROPHILS % (AUTO) 62 % (42-75); PLATELET COUNT 450 10^3/uL (130-400); WHITE BLOOD COUNT 6.2 10^3/uL (4.3-11.0)
[2023-02-03 06:16] LABS: ALBUMIN 3.2 GM/DL (3.2-4.5); BILIRUBIN,TOTAL 0.4 MG/DL (0.1-1.0); CALCIUM 8.3 MG/DL (8.5-10.1); CREATININE SERUM 0.61 MG/DL (0.60-1.30); MAGNESIUM 1.9 MG/DL (1.6-2.4); POTASSIUM 3.6 MMOL/L (3.6-5.0); TOTAL PROTEIN 5.8 GM/DL (6.4-8.2)
[2023-02-03] MEDS: POTASSIUM CHLORIDE 20 MEQ TABLET PO SCH (06:23)
[2023-02-03] MEDS ORDERED: POTASSIUM CHLORIDE 20 MEQ TABLET PO ONE (06:30)
[2023-02-03] MEDS: FLUTICASONE/VILANTEROL 200/25 MCG (7 DOSES) IH SCH (06:51)
[2023-02-03] MEDS: TIOTROPIUM INH 4 GM (SPIRIVA Respimat) IH SCH (06:51)
--- NOTE | 2023-02-03 08:10 | Cardiology Progress Note ---
Subjective Date Seen by Provider: Feb 03, 2023 Time Seen by Provider: 08:08 Subjective/Events-last exam Patient was seen at bedside, sitting down comfortably, no new complain Focused Exam Lactate Level 01/31/23 17:35: Lactic Acid Level 2.77*H 01/31/23 19:55: Lactic Acid Level 0.98 Objective-Cardiology Exam Last Set of Vital Signs Vital Signs 02/03/23 02/03/23 02/03/23 07:05 07:09 07:55 Temp 36.7 Pulse 101 Resp 20 B/P (MAP) 123/78 (93) Pulse Ox 95 O2 Delivery Room Air O2 Flow Rate 0.00 FiO2 21 I&O Intake and Output 02/03/23 00:00 Intake Total 1760 ml Output Total 3800 ml Balance -2040 ml Intake Oral 1760 ml Output Urine Total 3800 ml General: Alert, Oriented X3 HEENT: Atraumatic, PERRLA Neck: Supple, No JVD Lungs: Clear to Auscultation, Normal Air Movement Heart: Regular Rate Abdomen: Normal Bowel Sounds, Soft Skin: No Rashes, No Significant Lesion Neuro: Normal Speech Psych/Mental Status: Mental Status NL, Mood NL Results Lab Laboratory Tests 02/03/23 05:08 A/P-Cardiology Admission Diagnosis Sepsis Acute respiratory failure Non-ST elevation myocardial infarction Coronary artery disease Assessment/Plan Sepsis, fever and congestion Status post recent respiratory failure with COPD exacerbation with COVID-19 positive. Return for worsening fever and generalized malaise. Slowly improving. Managed by medical team Non-ST elevation myocardial infarction. Elevation in troponin Conservative management is recommended at this point, I will try to obtain copy of his cath report from [facility] in [place] History of CAD/CABG, borderline positive troponin which is getting better on serial examinations. coronary angiography done at [facility] in [place]. Coronary angiography was done on 01/06/2023. According to the daughter no PCI was done. Patient does have previous history of CABG. Continue dual antiplatelet therapy, Lovenox Questionable atrial fibrillation with rapid ventricular response, careful review of his EKG showed multifocal atrial tachycardia probably secondary to hypoxemia Has been on Cardizem drip On Lovenox Recurrent episodes of hypokalemia Patient was maintained on 10 mill equivalent of KCl and 40 mg of Lasix, will increase potassium supplement to 20 daily and monitor tolerance and response Acute on chronic congestive heart failure. 2D Echo done showing EF 55-65%, aortic sclerosis, mild MR, PA 35-40mmHg. Hypertension, monitor blood pressure COPD Extensive peripheral arterial disease per history Urinary retention OLEGARIO BOND MD Feb 03, 2023 08:10
--- NOTE | 2023-02-03 08:16 | Diagnostic Imaging Report ---
EXAMINATION: Chest 1 view HISTORY: Respiratory failure COMPARISON: 02/02/2023 FINDINGS: There is worsening mild edema. Left hemidiaphragm is elevated. No pneumothorax. Heart size is unchanged. Median sternotomy wires are aligned. IMPRESSION: 1. Worsening mild edema. Dictated by: Dictated on workstation # [id number]
[2023-02-03] MEDS: ASPIRIN enteric coated 81MG TABLET PO SCH (10:04)
[2023-02-03] MEDS: LOSARTAN 25 MG TABLET PO SCH (10:04)
[2023-02-03] MEDS: SENNOSIDES 8.6 MG TABLET PO SCH ×2 (10:04→19:50)
[2023-02-03] MEDS: FUROSEMIDE 40 MG TABLET PO SCH (10:04)
[2023-02-03] MEDS: DOCUSATE SODIUM 100 MG CAPSULE PO SCH ×2 (10:04→19:50)
[2023-02-03] MEDS: CLOPIDOGREL 75 MG TABLET PO SCH (10:04)
--- NOTE | 2023-02-03 10:10 | Physical Therapy Daily Note ---
PT Daily Note-Current Subjective Patient up in w/c with family present. Agrees to PT. Pain Section J - Health Conditions 1. Rarely or not at all 2. Occasionally 3. Frequently 4. Almost constantly 8. Unable to answer Pain Effect on Sleep: 3 Pain Interference with Therapy: 3 Pain Interference w/Day-to-Day: 3 Transfers SCALE: Activities may be completed with or without assistive devices. 9-Pqnwqziowm-nhxyoqs completes the activity by him/herself with no assistance from a helper. 5-Set-up or Clean-up Assistance-helper sets up or cleans up; patient completes activity. [place] assists only prior to or following the activity. 4-Supervision or Touching Assistance-helper provides verbal cues and/or touching/steadying and/or contact guard assistance as patient completes activity. Assistance may be provided throughout the activity or intermittently. 3-Partial/Moderate Assistance-helper does LESS THAN HALF the effort. [place] lifts, holds or supports trunk or limbs, but provides less than half the effort. 2-Substantial/Maximal Assistance-helper does MORE THAN HALF the effort. [place] lifts or holds trunk or limbs and provides more than half the effort. 8-Dmcqfxist-qknawf does ALL the effort. Patient does none of the effort to complete the activity. Or, the assistance of 2 or more helpers is required for the patient to complete the activity. If activity was not attempted, code reason: 7-Patient Refused. 9-Not Applicable-not attempted and the patient did not perform the activity be fore the current illness, exacerbation or injury. 10-Not Attempted due to Environmental Limitations-(lack of equipment, weather restraints, etc.). 88-Not Attempted due to Medical Conditions or Safety Concerns. Sit to Stand (QC): 4 Weight Bearing Right Lower Extremity: Right Weight Bearing/Tolerated Left Lower Extremity: Left Weight Bearing/Tolerated Gait Training Distance: 30' x 2 Walk 10 feet (QC): 4 Gait Assistive Device: FWW seated recovery period due to SOA/functional gait sequence/CGA for safety Assessment Patient remains up in recliner with needs met. Continue to increase activity as tolerated by patient. PT Correction Goals Drive Away Driver Goals PT Correction Goals Time Frame: Feb 19, 2023 Roll Left & Right (QC): 4 Sit to Lying (QC): 4 Lying-Sitting on Side/Bed(QC): 4 Sit to Stand (QC): 4 Chair/Lgc-sx-Fumll Xfer(QC): 4 Walk 10 feet (QC): 4 Walk 50ft with 2 Turns (QC): 4 Walk 150 ft (QC): 4 PT Plan Treatment/Plan Treatment Plan: Continue Plan of Care Treatment Plan: Bed Mobility, Education, Functional Activity Gonzalez, Functional Strength, Gait, Safety, Therapeutic Exercise, Transfers Treatment Duration: Feb 19, 2023 Frequency: 6 times per week Estimated Hrs Per Day: .25 hour per day Time Time In: 903 Time Out: 916 DATE: Feb 03, 2023 Total Billed Treatment Time: 13 Total Billed Treatment 1 visit GT 13 min GINNA BRIONES PT Feb 03, 2023 10:10
[2023-02-03] MEDS: diphenhydrAMINE 25 MG TABLET PO PRN ×2 (10:13→18:29)
[2023-02-03] MEDS: NS IV 500 ML 500 ML IV SCH (10:14)
--- NOTE | 2023-02-03 10:17 | Occupational Ther Daily Note ---
OT Current Status-Daily Note Subjective Up in WC w/ prosthesis on . Agreeable to therapy and ambulation Mental Status/Objective Patient Orientation: Person, Place, Time, Situation Attachments: IV ADL-Treatment Therapy Code Descriptions/Definitions Functional [place] Measure: 0=Not Assessed/NA 4=Minimal Assistance 1=Total Assistance 5=Supervision or Setup 2=Maximal Assistance 6=Modified [place] 3=Moderate Assistance 7=Complete IndependenceSCALE: Activities may be completed with or without assistive devices. 7-Redixcsggf-felohpe completes the activity by him/herself with no assistance from a helper. 5-Set-up or Clean-up Assistance-helper sets up or cleans up; patient completes a ctivity. [place] assists only prior to or following the activity. 4-Supervision or Touching Assistance-helper provides verbal cues and/or touching/steadying and/or contact guard assistance as patient completes activity. Assistance may be provided throughout the activity or intermittently. 3-Partial/Moderate Assistance-helper does LESS THAN HALF the effort. [place] lifts, holds or supports trunk or limbs, but provides less than half the effort. 2-Substantial/Maximal Assistance-helper does MORE THAN HALF the effort. [place] lifts or holds trunk or limbs and provides more than half the effort. 6-Ceilahehp-vnvslm does ALL the effort. Patient does none of the effort to complete the activity. Or, the assistance of 2 or more helpers is required for the patient to complete the activity. If activity was not attempted, code reason: 7-Patient Refused. 9-Not Applicable-not attempted and the patient did not perform the activity before the current illness, exacerbation or injury. 10-Not Attempted due to Environmental Limitations-(lack of equipment, weather restraints, etc.). 88-Not Attempted due to Medical Conditions or Safety Concerns. Other Treatment Breathing and endurance activity for regain general strength to return home. OT followed w/ WC during PT ambulation. 2 rest periods w/ 30 x1 and 15 x1 Education OT Patient Education: Correct positioning, Exercise program (WC propel in halls for increased strength, actvity and toelrance), Instructions to caregiver, Progress toward Goal/Update tx plan, Purpose of tx/functional activities, Reviewed precautions, Rehab process, Safety issues, Transfer techniques, Use of adapted equipment, W/C management Teaching Recipient: Patient, Family Teaching Methods: Demonstration, Discussion Response to Teaching: Verbalize Understanding OT Branding Machine Tender Goals Branding Machine Tender Goals 1=Demonstrate adherence to instructed precautions during ADL tasks. 2=Patient will verbalize/demonstrate understanding of assistive devices/modifications for ADL. 3=Patient will improve strength/tolerance for activity to enable patient to perform ADL's. OT Education/Plan Problem List/Assessment Assessment: Decreased Activ Tolerance, Decreased Safety Aware, Decreased UE Strength, Impaired Self-Care Skills Discharge Recommendations Plan/Recommendations: Continue POC Treatment Plan/Plan of Care Patient would benefit from OT for education, treatment and training to promote independence in ADL's, mobility, safety and/or upper extremity function for ADL's. Plan of Care: ADL Retraining, Concurrent Therapy, Functional Mobility, Group Exercise/Act as Ind, UE Funct Exercise/Act Treatment Duration: Feb 04, 2023 Frequency: 3 times per week Estimated Hrs Per Day: .25 hour per day Agreement: Yes Rehab Potential: Fair Time Start Time: 09:08 Stop Time: 09:08 DATE: Feb 03, 2023 Total Time Billed (hr/min): 10 Billed Treatment Time FA 10 min QI COYLE OT Feb 03, 2023 10:17
[2023-02-03] MEDS: oxyCODONE IMMEDIATE RELEASE 5 MG TABLET PO PRN (11:29)
--- NOTE | 2023-02-03 11:49 | Progress Note - Hospitalist ---
PRANAV FREEMAN 02/03/23 1149: Subjective HPI/CC On Admission Date Seen by Provider: Feb 03, 2023 Time Seen by Provider: 08:45 Chief complaint: Fever with shortness of breath and A-fib with RVR HPI:This is a 72-year-old male who was just discharged home after prolonged hospital course following COVID who presented with new onset A-fib with RVR. Cardizem drip initiated which helped convert him to normal sinus rhythm. Unable to initiate anticoagulation due to rectus sheath hematoma. Subjective/Events-last exam Pt saw elementary school social worker on 02/02 and discussed discharge to home with health or placement at long-term facility. Today, pt is feeling better and not having any shortness of breath. Pt's daughter is worried about his K+ being low and stated that mortgage consultant thought it was lasix. I reaffirmed what mortgage consultant stated. I discussed discharge with pt and daughter, and they were ambivalent about where he should go after discharge (long-term facility vs home with home health). No other concerns. Review of Systems General: Fatigue Pulmonary: No Dyspnea, No Cough Cardiovascular: No: Chest Pain, Palpitations Gastrointestinal: Abdominal Pain (lower left quadrant); No: Nausea, Vomiting, Diarrhea, Constipation Focused Exam Lactate Level 01/31/23 17:35: Lactic Acid Level 2.77*H 01/31/23 19:55: Lactic Acid Level 0.98 Objective Exam Vital Signs Vital Signs Date Time Temp Pulse Resp B/P (MAP) Pulse Ox O2 Delivery O2 Flow Rate FiO2 02/03/23 07:55 36.7 101 20 123/78 (93) 95 Room Air 02/03/23 07:09 21 02/03/23 07:05 0.00 Capillary Refill : General Appearance: No Apparent Distress, Chronically ill, Thin Respiratory: Chest Non Tender, Lungs Clear, Normal Breath Sounds, No Accessory Muscle Use, No Respiratory Distress, Decreased Breath Sounds (left side) Cardiovascular: Regular Rate, Rhythm, No Gallop, No Murmur Neurologic/Psychiatric: Alert, Oriented x3, Normal Mood/Affect Results/Procedures Lab Laboratory Tests 02/03/23 05:08 Patient resulted labs reviewed. Assessment/Plan Assessment and Plan Assess & Plan/Chief Complaint Assessment 1.New-onset AFIB with RVR 2. UTI 3. Respiratory Alkalosis Plan 1. Empiric Abx 2. Urine culture 3. Monitor K+ and Na+ and replace PRN 4. Lasix Clinical Quality Measures DVT/VTE Risk/Contraindication: Contraindications-Pharm: Other *list below* Other: hematoma abominal MARY JO CANO DO 02/03/232051: Subjective Subjective/Events-last exam No major issues No pain reported Weak overall Review of Systems General: Fatigue Objective Exam General Appearance: No Apparent Distress, WD/WN, Chronically ill Respiratory: Lungs Clear, Normal Breath Sounds Cardiovascular: Regular Rate, Rhythm Neurologic/Psychiatric: Alert, Oriented x3 Assessment/Plan Assessment and Plan Assess & Plan/Chief Complaint DC tomorrow Supervisory-Addendum Brief Verification & Attestation Participated in pt care: history, MDM, physical Personally performed: exam, history, MDM, supervision of care Care discussed with: Medical Student Procedures: n/a Results interpretation: Verified all documentation Verification and Attestation of Medical Student E/M Service A medical student performed and documented this service in my presence. I reviewed and verified all information documented by the medical student and made modifications to such information, when appropriate. I personally performed the physical exam and medical decision making. Mary Jo Cano, Feb 03, 2023,20:51 PRANAV FREEMAN Feb 03, 2023 11:49 MARY JO CANO DO Feb 03, 2023 20:52
[2023-02-03] MEDS: RT-Ipratropium/Albuterol NEB 3 ML VIAL INH PRN ×2 (12:03→17:09)
--- NOTE | 2023-02-03 14:34 | Progress Note ---
Subjective Date Seen by a Provider: Feb 03, 2023 Time Seen by a Provider: 14:25 Subjective/Events-last exam Patient seen with Dr. Keating. Patient reports doing well. Reports that he walked with PT and gait belt on and did rub over his lower abdomen and his right lower abdomen is tender. Tolerating diet. Focused Exam Lactate Level 01/31/23 17:35: Lactic Acid Level 2.77*H 01/31/23 19:55: Lactic Acid Level 0.98 Objective Exam Vital Signs Date Time Temp Pulse Resp B/P (MAP) Pulse Ox O2 Delivery O2 Flow Rate FiO2 02/03/23 13:00 118 02/03/23 12:32 36.9 106 19 104/66 (79) 95 Room Air 02/03/23 12:03 96 Room Air 0.00 02/03/23 07:55 36.7 101 20 123/78 (93) 95 Room Air 02/03/23 07:09 36.5 92 95 21 02/03/23 07:05 Room Air 0.00 02/03/23 07:04 Room Air 0.00 02/03/23 07:00 100 02/03/23 06:51 95 Room Air 0.00 02/03/23 04:08 36.5 98 16 102/64 (77) 97 Room Air 0.00 0.00 02/03/23 03:30 95 Room Air 02/03/23 01:00 100 02/02/23 23:29 36.5 98 16 117/78 (91) 95 Room Air 0.00 0.00 02/02/23 23:15 98 Room Air 02/02/23 21:07 98 Room Air 02/02/23 19:56 Room Air 02/02/23 19:23 37.2 86 18 92/56 (68) 93 Room Air 02/02/23 19:00 115 02/02/23 18:46 97 Room Air 02/02/23 15:30 36.7 100 17 106/67 (80) 95 Room Air 02/02/23 15:01 96 Room Air I & O 02/03/23 07:00 Intake Total 1655 ml Output Total 3025 ml Balance -1370 ml Capillary Refill : General Appearance: No Apparent Distress, WD/WN Neck: Normal Inspection, Supple Respiratory: No Accessory Muscle Use, No Respiratory Distress Gastrointestinal: normal bowel sounds, soft, tenderness (RLQ to mid lower abdomen) Neurologic/Psychiatric: Alert, Oriented x3 Skin: Normal Color, Warm/Dry Results Lab Laboratory Tests 02/03/23 05:08: White Blood Count 6.2, Red Blood Count 3.15L, Hemoglobin 10.1L, Hematocrit 30L, Mean Corpuscular Volume 97, Mean Corpuscular Hemoglobin 32, Mean Corpuscular Hemoglobin Concent 33, Red Cell Distribution Width 17.2H, Platelet Count 450H, Mean Platelet Volume 8.7L, Immature Granulocyte % (Auto) 1, Neutrophils (%) (Auto) 62, Lymphocytes (%) (Auto) 21, Monocytes (%) (Auto) 15H, Eosinophils (%) (Auto) 1, Basophils (%) (Auto) 1, Neutrophils # (Auto) 3.9, Lymphocytes # (Auto) 1.3, Monocytes # (Auto) 0.9, Eosinophils # (Auto) 0.1, Basophils # (Auto) 0.1, Immature Granulocyte # (Auto) 0.0, Sodium Level 134L, Potassium Level 3.6, Chloride Level 104, Carbon Dioxide Level 22, Anion Gap 8, Blood Urea Nitrogen 4L , Creatinine 0.61, Estimat Glomerular Filtration Rate 103, BUN/Creatinine Ratio 7, Glucose Level 94, Calcium Level 8.3L, Corrected Calcium 8.9, Magnesium Level 1.9, Total Bilirubin 0.4, Aspartate Amino Transf (AST/SGOT) 19, Alanine Aminotransferase (ALT/SGPT) 17, Alkaline Phosphatase 70, Total Protein 5.8L, Albumin 3.2 Microbiology 01/31/23 MRSA Screen - Final, Complete MRSA not isolated 01/31/23 Urine Culture - Final, Complete NO GROWTH 01/31/23 Blood Culture - Preliminary, Resulted Assessment/Plan Assessment/Plan Assess & Plan/Chief Complaint exacerbation COPD with previous recent covid and cough induced inferior e pigastric artery injury and right rectus sheath hematoma. VSS Hgb 10.1 - stable and asymptomatic cont OAC. ambulate as tolerated. Clinical Quality Measures DVT/VTE Risk/Contraindication: Contraindications-Pharm: Other *list below* Other: hematoma anastasiyaminal JAMAR LATHAM IN[employer]UMENT [employer] SERVICE PERSON Feb 03, 2023 14:34
[2023-02-03] MEDS: HYPOCHLOROUS ACID/NaCl WOUND SOLN 250 ML IR PRN ×2 (15:57→19:50)
[2023-02-03] MEDS: TAMSULOSIN 0.4 MG (FLOMAX) CAP PO SCH (17:46)
[2023-02-03] MEDS: FINASTERIDE 5 MG TABLET PO SCH (19:49)
[2023-02-04] MEDS: NS IV 500 ML 500 ML IV SCH (01:57)
[2023-02-04] MEDS: RT-Ipratropium/Albuterol NEB 3 ML VIAL INH SCH ×3 (02:49→10:21)
[2023-02-04 04:07] VITALS: BP 138/78
[2023-02-04] MEDS: NYSTATIN ORAL SUSP 5 ML UDC PO SCH (05:14)
[2023-02-04] MEDS: PANTOPRAZOLE 40 MG TABLET PO SCH (05:21)
[2023-02-04] MEDS: CEFEPIME INJECTION 1,000 MG in NS (IVPB) 50 ML 50 ML IV SCH (05:21)
[2023-02-04] MEDS ORDERED: LOSA25TA41 PO (05:24)
[2023-02-04] MEDS ORDERED: TRM50T PO (05:24)
[2023-02-04] MEDS ORDERED: IPRA3AMP31 IH (05:24)
[2023-02-04] MEDS ORDERED: FURO-124 PO (05:24)
[2023-02-04] MEDS ORDERED: FLUT16SP22 NS (05:24)
[2023-02-04] MEDS ORDERED: ATOR40TA70 PO (05:24)
[2023-02-04] MEDS ORDERED: FLUT1BLS IH (05:24)
[2023-02-04] MEDS ORDERED: TIOT18CA2 IH (05:24)
[2023-02-04] MEDS ORDERED: DOCU100C37 PO (05:24)
[2023-02-04] MEDS ORDERED: CLOP75TA28 PO (05:24)
[2023-02-04] MEDS ORDERED: ASPI-1238 PO (05:24)
[2023-02-04] MEDS ORDERED: NF-PLET100 PO (05:24)
[2023-02-04] MEDS ORDERED: POTA-177 PO (05:24)
[2023-02-04] MEDS ORDERED: LANS30CA PO (05:24)
[2023-02-04] MEDS ORDERED: FINA5TAB6 PO (05:24)
[2023-02-04] MEDS ORDERED: TMSL.4C PO (05:24)
[2023-02-04] MEDS ORDERED: NYST1000 PO (05:24)
[2023-02-04] MEDS ORDERED: HYDR-3820 PO (05:24)
--- NOTE | 2023-02-04 05:25 | Discharge Inst-Skilled Nursing ---
Discharge [facility]-Skilled NF Reconcile Patient Problems Problems Reviewed?: Yes Chief Complaint Chief complaint: Fever with shortness of breath and A-fib with RVR HPI:This is a 72-year-old male who was just discharged home after prolonged hospital course following COVID who presented with new onset A-fib with RVR. Cardizem drip initiated which helped convert him to normal sinus rhythm. Unable to initiate anticoagulation due to rectus sheath hematoma. Patient Instructions Patient Problems: Debility Consult/Follow Up/Orders Follow Up Appt.: [place] rounds [facility] Skilled NF Admit to: Via [facility] Certification ([facility]) I certify that [facility] services are required to be given on an inpatient basis because of the above named patient's need for senior care care on a continuing basis for the conditions(s) for which he/she was receiving inpatient hospital services prior to his/her transfer to the [facility]. [facility]it[facility] Facility Order: Nursing Services, [place]-Evaluate & Treat, Physical Therapy-Evaluate & Treat Oxygen Delivery Method: Room Air Discharge Diet: No Restrictions Resuscitation Status: Full Code New & Resume Previous Orders New Medications: Fluticasone Propionate (Fluticasone Propionate) 50 Mcg/Actuation [place].susp 0 SPRAY NS DAILY, #1 EACH daily Changed Medications: Nystatin (Nystatin) 100,000 Unit/Ml Oral.susp 5 ML PO Q6H, #60 ML (Changed from: Removed Instructions) Potassium Chloride (Potassium Chloride) 10 Meq Tab.er.prt 20 MEQ PO DAILY, #60 TAB (Changed from: 10 MEQ) Continued Medications: Aspirin (Aspirin EC) 81 Mg Tablet.dr 81 MG PO DAILY, #30 TAB (This prescription has been renewed) Atorvastatin Calcium (Atorvastatin Calcium) 40 Mg Tablet 40 MG PO HS, #30 TAB (This prescription has been renewed) Cilostazol (Cilostazol) 100 Mg Tablet 100 MG PO BID, #60 TAB (This prescription has been renewed) Clopidogrel Bisulfate (Clopidogrel) 75 Mg Tablet 75 MG PO DAILY, #30 TAB (This prescription has been renewed) Docusate Sodium (Docusate Sodium) 100 Mg Capsule 100 MG PO BID, #60 CAP (This prescription has been renewed) Finasteride (Finasteride) 5 Mg Tablet 5 MG PO HS, #30 TAB (This prescription has been renewed) Fluticasone/Vilanterol (Breo Ellipta 200-25 Mcg INH) 200 Mcg-25 Mcg/Dose Blst.w.dev 1 EACH IH DAILY, #1 EACH (This prescription has been renewed) Furosemide (Lasix) 40 Mg Tablet 40 MG PO DAILY, #30 TAB (This prescription has been renewed) Hydrocodone/Acetaminophen (Hydrocodone-Acetamin 10-325 mg) 10 Mg-325 Mg Tablet 1 EACH PO Q8H PRN for PAIN-MODERATE (5-7), #20 TAB (This prescription has been renewed) Ipratropium/Albuterol Sulfate (Iprat-Albut 0.5-3(2.5) mg/3 ml) 0.5 Mg-3 Mg (2.5 Mg Base)/3 Ml Ampul.neb 3 ML IH TID PRN for SHORTNESS OF BREATH, #60 EACH 0 Refills (This prescription has been renewed) Lansoprazole (Lansoprazole) 30 Mg Capsule.dr 30 MG PO 0600,1400, #60 CAP (This prescription has been renewed) Losartan Potassium (Losartan Potassium) 25 Mg Tablet 25 MG PO DAILY, #30 TAB 0 Refills (This prescription has been renewed) HOLD AND NOTIFY NURSE/PCP IF BP <80/50 OR >180 Tamsulosin HCl (Flomax) 0.4 Mg Cap 0.8 MG PO 1800, #60 CAP (This prescription has been renewed) TAKES 2 (0.4MG) CAPS Tiotropium [place] (Spiriva) 18 Mcg Aerp 1 INH IH DAILY, #1 EA (This prescription has been renewed) Tramadol HCl (Tramadol HCl) 50 Mg Tablet 50 MG PO Q8H PRN for PAIN-MODERATE (5-7), #20 TAB (This prescription has been renewed) Mary Jo Cano Feb 04, 2023 05:25 MARY JO CANO DO Feb 04, 2023 05:25
--- NOTE | 2023-02-04 05:26 | Discharge Summary ---
Discharge Summary Hospital Course Was the Problem List Reviewed?: Yes Problems/Dx: (1) Atrial fibrillation with RVR (2) COPD (chronic obstructive pulmonary disease) Status: Chronic Qualifiers: Qualified Codes: J44.9 - Chronic obstructive pulmonary disease, unspecified Hospital Course Date of Admission: Jan 31, 2023 at 20:31 Admission Diagnosis : Family Physician/Provider: No,Local Physician Date of Discharge: 02/04/23 Discharge Diagnosis: [ ] Hospital Course: CC: General Weakness HPI: This is a 72yo male with pmh of COPD, CAD, HTN, and recent hospitalization (01/18) for Acute Respiratory Failure secondary to COVID-19 and [place] in the last month that presented to the ED on 01/31 with fever, general weakness/fatigue, cough, and congestion x1 day. He was also having associated shortness of breath. Pt normally uses straight catheter and was concerned because he couldn't perform the straight cath by himself. Pt denied n/v/d and headache. Labs/Imaging ordered in ED included CBC, CMP, Coagulation Studies, UA, ABG, Troponins, BNP, Urine culture, EKG, Chest CTA, Chest CT, Abd/Pelvic CT, and CXR. Significant lab values showed Hgb 11.6, Na+ 132, K+ 3.0, BNP 344, ABG 7.50/33/73, a UA with Leuk esterase (+) and WBC 10-25, EKG that showed AFIB with RVR, and CXR that showed no acute changes and chronic elevation of left hemidiaphragm. Treatment while in ED included IV fluids 1L, Cefipime IV x1, Duoneb, O2 2L NC, Cardizem 10mg IV x1. Pt had AFIB with RVR which spontaneously converted in ED. Pt was admitted to ICU with New-onset AFIB with RVR and UTI. While patient was hospitalized, cardiology and surgery were consulted, he was treated with cefepime 1g q6h, lasix 40mg PO qd, and home meds were resumed. Pt is discharged on 02/04 to [facility] with fluticasone nasal spray qd, nystatin dose changed to 5ml PO q6h, and potassium chloride increased to 20 mEq PO qd. PRANAV FREEMAN Patient was not an anticoagulation candidate at this time due to hematuria and rectus sheath hematoma. Labs and Pending Lab Test: Microbiology 01/31/23 MRSA Screen - Final, Complete MRSA not isolated 01/31/23 Urine Culture - Final, Complete NO GROWTH 01/31/23 Blood Culture - Preliminary, Resulted Home Meds Active Fluticasone Propionate 50 Mcg/Actuation [place].susp 0 [place] NS DAILY daily Cilostazol 100 Mg Tablet 100 Mg PO BID Spiriva (Tiotropium [place]) 18 Mcg Aerp 1 Inh IH DAILY Nystatin 100,000 Unit/Ml Oral.susp 5 Ml PO Q6H Losartan Potassium 25 Mg Tablet 25 Mg PO DAILY HOLD AND NOTIFY NURSE/PCP IF BP <80/50 OR >180 Iprat-Albut 0.5-3(2.5) mg/3 ml (Ipratropium/Albuterol Sulfate) 0.5 Mg-3 Mg (2.5 Mg Base)/3 Ml Ampul.neb 3 Ml IH TID PRN Hydrocodone-Acetamin 10-325 mg (Hydrocodone/Acetaminophen) 10 Mg-325 Mg Tablet 1 Each PO Q8H PRN Lansoprazole 30 Mg Capsule.dr 30 Mg PO 0600,1400 Flomax (Tamsulosin HCl) 0.4 Mg Cap 0.8 Mg PO 1800 TAKES 2 (0.4MG) CAPS Aspirin EC (Aspirin) 81 Mg Tablet.dr 81 Mg PO DAILY Tramadol HCl 50 Mg Tablet 50 Mg PO Q8H PRN Breo Ellipta 200-25 Mcg INH (Fluticasone/Vilanterol) 200 Mcg-25 Mcg/Dose Blst.w.dev 1 Each IH DAILY Finasteride 5 Mg Tablet 5 Mg PO HS Docusate Sodium 100 Mg Capsule 100 Mg PO BID Atorvastatin Calcium 40 Mg Tablet 40 Mg PO HS Lasix (Furosemide) 40 Mg Tablet 40 Mg PO DAILY Potassium Chloride 10 Meq Tab.er.prt 20 Meq PO DAILY Clopidogrel (Clopidogrel Bisulfate) 75 Mg Tablet 75 Mg PO DAILY Assessment/Pt Instructions [facility] rounds at [facility] Discharge Planning: <30 minutes discharge planning Discharge Instructions Discharge Diet: No Restrictions Activity as Tolerated: Yes Discharge Physical Examination Vital Signs Vital Signs Date Time Temp Pulse Resp B/P (MAP) Pulse Ox O2 Delivery O2 Flow Rate FiO2 02/04/23 04:07 36.8 102 18 138/78 (98) 94 Room Air 02/03/23 17:09 0.00 02/03/23 07:09 21 General Appearance: No Apparent Distress, WD/WN, Chronically ill Allergies: Coded Allergies: No Known Drug Allergies (Unverified , 03/08/18) Discharge Summary Date of Admission Jan 31, 2023 at 20:31 Date of Discharge Discharge Date: Feb 04, 2023 Admission Diagnosis Assessment: New onset atrial fibrillation with rapid rapid ventricular response now converted normal sinus rhythm after Cardizem drip Rectus sheath hematoma unable to initiate anticoagulation COPD Recent COVID NSTEMI CAD previous bypass Former smoker Remote history of below the knee amputation Neurogenic bladder UTI Recurrent pneumonia Plan: Supportive care Monitor closely Moved to fourth floor Cardiology consult Discharge Diagnosis DC tomorrow Clinical Quality Measures DVT/VTE Risk/Contraindication: Contraindications-Pharm: Other *list below* Other: hematoma abominal JUAN RAY DO Feb 04, 2023 05:26
[2023-02-04 05:39] LABS: BASOPHILS # (AUTO) 0.1 10^3/uL (0.0-0.1); BASOPHILS % (AUTO) 1 % (0-10); EOSINOPHILS # (AUTO) 0.1 10^3/uL (0.0-0.3); EOSINOPHILS % (AUTO) 1 % (0-10); HEMATOCRIT 33 % (40-54); HEMOGLOBIN 11.1 g/dL (13.3-17.7); LYMPHOCYTES # (AUTO) 1.1 10^3/uL (1.0-4.0); LYMPHOCYTES % (AUTO) 17 % (12-44); MEAN CORPUSCULAR HEMOGLOBIN 32 pg (25-34); MEAN CORPUSCULAR HGB CONC 34 g/dL (32-36); MEAN CORPUSCULAR VOLUME 96 fL (80-99); MEAN PLATELET VOLUME 8.6 fL (9.0-12.2); MONOCYTES # (AUTO) 0.8 10^3/uL (0.0-1.0); MONOCYTES % (AUTO) 12 % (0-12); NEUTROPHILS # (AUTO) 4.4 10^3/uL (1.8-7.8); NEUTROPHILS % (AUTO) 68 % (42-75); PLATELET COUNT 470 10^3/uL (130-400); WHITE BLOOD COUNT 6.5 10^3/uL (4.3-11.0)
[2023-02-04 05:50] LABS: ALBUMIN 3.4 GM/DL (3.2-4.5); POTASSIUM 3.6 MMOL/L (3.6-5.0)
[2023-02-04 05:51] LABS: CALCIUM 8.7 MG/DL (8.5-10.1)
[2023-02-04] MEDS: POTASSIUM CHLORIDE 20 MEQ TABLET PO SCH (05:51)
[2023-02-04 05:52] LABS: TOTAL PROTEIN 6.3 GM/DL (6.4-8.2)
[2023-02-04 05:54] LABS: BILIRUBIN,TOTAL 0.5 MG/DL (0.1-1.0)
[2023-02-04 05:56] LABS: CREATININE SERUM 0.61 MG/DL (0.60-1.30)
[2023-02-04 05:59] LABS: MAGNESIUM 1.8 MG/DL (1.6-2.4)
[2023-02-04] MEDS ORDERED: POTASSIUM CHLORIDE 20 MEQ TABLET PO SCH (07:00)
[2023-02-04 07:20] VITALS: BP 117/76
[2023-02-04] MEDS: FLUTICASONE NASAL SPRAY (120 SPRAYS) NS SCH (07:59)
[2023-02-04] MEDS: CLOPIDOGREL 75 MG TABLET PO SCH (08:00)
[2023-02-04] MEDS: ASPIRIN enteric coated 81MG TABLET PO SCH (08:00)
[2023-02-04] MEDS: FUROSEMIDE 40 MG TABLET PO SCH (08:00)
[2023-02-04] MEDS: LOSARTAN 25 MG TABLET PO SCH (08:00)
[2023-02-04] MEDS: SENNOSIDES 8.6 MG TABLET PO SCH (08:02)
[2023-02-04] MEDS: DOCUSATE SODIUM 100 MG CAPSULE PO SCH (08:02)
[2023-02-04] MEDS ORDERED: POTASSIUM CHLORIDE 20 MEQ TABLET PO ONE (09:00)
--- NOTE | 2023-02-04 09:48 | Progress Note - Cardiology ---
Cardiology SOAP Progress Note Objective: I&O/Vital Signs 02/03/23 02/03/23 02/04/23 02/04/23 21:59 23:16 01:00 02:49 Temp 37.1 Pulse 106 108 Resp 20 B/P (MAP) 127/76 (93) Pulse Ox 93 O2 Delivery Room Air Room Air Room Air 02/04/23 02/04/23 02/04/23 02/04/23 04:07 06:13 07:00 07:20 Temp 36.8 36.4 Pulse 102 108 102 Resp 18 20 B/P (MAP) 138/78 (98) 117/76 (90) Pulse Ox 94 94 95 O2 Delivery Room Air Room Air Room Air 02/04/23 00:00 Intake Total 1950 ml Output Total 2200 ml Balance -250 ml Weight (Pounds): 124 Weight (Ounces): 0 Weight (Calculated Kilograms): [id number] Constitutional: AAO x 3, well-developed, well-nourished Respiratory: No accessory muscle use, No respiratory distress; chest expansion is symmetric, chest is bilaterally symmetric, lungs clear to auscultation Cardiovascular: regular rate-rhythm; No JVD; S1 and S2 Gastrointestional: No guarding; audible bowel sounds Extremities: no lower extremity edema bilateral Neurologic/Psychiatric: other (moves all extremities) Skin: No rash on exposed areas, No ulcerations on exposed areas Results/Procedures: Labs Laboratory Tests 02/04/23 05:23: White Blood Count 6.5, Red Blood Count 3.46L, Hemoglobin 11.1L, Hematocrit 33L, Mean Corpuscular Volume 96, Mean Corpuscular Hemoglobin 32, Mean Corpuscular Hemoglobin Concent 34, Red Cell Distribution Width 17.3H, Platelet Count 470H, Mean Platelet Volume 8.6L, Immature Granulocyte % (Auto) 1, Neutrophils (%) (Auto) 68, Lymphocytes (%) (Auto) 17, Monocytes (%) (Auto) 12, Eosinophils (%) (Auto) 1, Basophils (%) (Auto) 1, Neutrophils # (Auto) 4.4, Lymphocytes # (Auto) 1.1, Monocytes # (Auto) 0.8, Eosinophils # (Auto) 0.1, Basophils # (Auto) 0.1, Immature Granulocyte # (Auto) 0.0, Sodium Level 134L, Potassium Level 3.6, Chloride Level 103, Carbon Dioxide Level 20L, Anion Gap 11, Blood Urea Nitrogen 5L, Creatinine 0.61, Estimat Glomerular Filtration Rate 103, BUN/Creatinine Ratio 8, Glucose Level 100, Calcium Level 8.7, Corrected Calcium 9.2, Magnesium Level 1.8, Total Bilirubin 0.5, Aspartate Amino Transf (AST/SGOT) 31, Alanine Aminotransferase (ALT/SGPT) 22, Alkaline Phosphatase 71, Total Protein 6.3L, Albumin 3.4 Microbiology 01/31/23 MRSA Screen - Final, Complete MRSA not isolated 01/31/23 Urine Culture - Final, Complete NO GROWTH 01/31/23 Blood Culture - Preliminary, Resulted Laboratory Tests 02/03/23 05:08 02/04/23 05:23 A/P: Assessment: Sepsis, fever and congestion Status post recent respiratory failure with COPD exacerbation with COVID-19 positive. Return for worsening fever and generalized malaise. Slowly improving. Managed by medical team Non-ST elevation myocardial infarction. Elevation in troponin Conservative management is recommended at this point, I will try to obtain copy of his cath report from [facility] in [place] History of CAD/CABG, borderline positive troponin which is getting better on serial examinations. coronary angiography done at [facility] in [place]. Coronary angiography was done on 01/06/2023. According to the daughter no PCI was done. Patient does have previous history of CABG. Continue dual antiplatelet therapy, Lovenox Questionable atrial fibrillation with rapid ventricular response, careful review of his EKG showed multifocal atrial tachycardia probably secondary to hypoxemia - no a-fib seen on tele Recurrent episodes of hypokalemia Acute on chronic diastolic congestive heart failure - 2D Echo done by Dr. Zhao showing EF 55-65%, aortic sclerosis, mild MR, PA 35-40mmHg. Hypertension COPD Extensive peripheral arterial disease per history DEWAYNE BETANCUR Feb 04, 2023 09:47
[2023-02-04] MEDS: FLUTICASONE/VILANTEROL 200/25 MCG (7 DOSES) IH SCH (10:22)
[2023-02-04] MEDS: TIOTROPIUM INH 4 GM (SPIRIVA Respimat) IH SCH (10:22)
--- NOTE | 2023-02-04 12:50 | Progress Note ---
PRANAV FREEMAN 02/04/23 1250: Progress Note CC: General Weakness HPI: This is a 72yo male with pmh of COPD, CAD, HTN, and recent hospitalization (01/18) for Acute Respiratory Failure secondary to COVID-19 and [place] in the last mo [place] that presented to the ED on 01/31 with fever, general weakness/fatigue, cough, and congestion x1 day. He was also having associated shortness of breath. Pt normally uses straight catheter and was concerned because he couldn't perform the straight cath by himself. Pt denied n/v/d and headache. Labs/Imaging ordered in ED included CBC, CMP, Coagulation Studies, UA, ABG, Troponins, BNP, Urine culture, EKG, Chest CTA, Chest CT, Abd/Pelvic CT, and CXR. Significant lab values showed Hgb 11.6, Na+ 132, K+ 3.0, BNP 344, ABG 7.50/33/73, a UA with Leuk esterase (+) and WBC 10-25, EKG that showed AFIB with RVR, and CXR that showed no acute changes and chronic elevation of left hemidiaphragm. Treatment while in ED included IV fluids 1L, Cefipime IV x1, Duoneb, O2 2L NC, Cardizem 10mg IV x1. Pt had AFIB with RVR which spontaneously converted in ED. Pt was admitted to ICU with New-onset AFIB with RVR and UTI. While patient was hospitalized, cardiology and surgery were consulted, he was treated with cefepime 1g q6h, lasix 40mg PO qd, and home meds were resumed. Pt is discharged on 02/04 to [facility] with fluticasone nasal spray qd, nystatin dose changed to 5ml PO q6h, and potassium chloride increased to 20 mEq PO qd. MARY JO CANO DO 02/04/237: Supervisory-Addendum Brief Verification & Attestation Participated in pt care: history, MDM, physical Personally performed: exam, history, MDM, supervision of care Care discussed with: Medical Student Procedures: n/a Results interpretation: Verified all documentation Verification and Attestation of Medical Student E/M Service A medical student performed and documented this service in my presence. I reviewed and verified all information documented by the medical student and made modifications to such information, when appropriate. I personally performed the physical exam and medical decision making. Mary Jo Cano, Feb 04, 2023,21:17 PRANAV FREEMAN Feb 04, 2023 12:50 MARY JO CANO DO Feb 04, 2023 21:17
== END 2023-02-04 11:25 | DRG 871 ==
LOC: EDUNIT# 17:17 → ER 17:20 → ICU 20:31 → 4TH 02-01 14:00
PROVIDERS: ADMIT Internal Medicine; ATTEND Internal Medicine
DX: A41.9 Sepsis, unspecified organism (principal); I21.4 Non-ST elevation (NSTEMI) myocardial infarction; N39.0 Urinary tract infection, site not specified; E87.3 Alkalosis; J44.9 Chronic obstructive pulmonary disease, unspecified; I25.10 Atherosclerotic heart disease of native coronary artery without angina pectoris; Z86.16 Personal history of COVID-19; Z79.82 Long term (current) use of aspirin; Z79.899 Other long term (current) drug therapy; I50.9 Heart failure, unspecified; I11.0 Hypertensive heart disease with heart failure; I25.2 Old myocardial infarction; Z95.1 Presence of aortocoronary bypass graft; Z89.512 Acquired absence of left leg below knee; E78.00 Pure hypercholesterolemia, unspecified; K21.9 Gastro-esophageal reflux disease without esophagitis; G89.29 Other chronic pain; M54.9 Dorsalgia, unspecified; I48.91 Unspecified atrial fibrillation; Z87.891 Personal history of nicotine dependence; Z95.5 Presence of coronary angioplasty implant and graft; M79.81 Nontraumatic hematoma of soft tissue; E87.6 Hypokalemia; R33.9 Retention of urine, unspecified
CPT/HCPCS: 36415; 36600; 51702; 71045; 71275; 74177; 80053; 80061; 80202; 81000; 82805; 83605; 83735; 83880; 84100; 84484; 85025; 85610; 85730; 86141; 86850; 86900; 86901; 87040; 87081; 87088; 93005; 93306; 94640; 94664; 94760

== ENCOUNTER → 2023-02-24 | Outpatient (CLI) | payer MEDICARE, MEDICAID ==
[~2023-02-24] MED LIST changes: +TIOT18CA2 IH
== END ==
LOC: WOUNDCARE 11:32
PROVIDERS: ATTEND Family Medicine
DX: I70.244 Atherosclerosis of native arteries of left leg with ulceration of heel and midfoot (principal); I70.235 Atherosclerosis of native arteries of right leg with ulceration of other part of foot; L97.516 Non-pressure chronic ulcer of other part of right foot with bone involvement without evidence of necrosis; M20.41 Other hammer toe(s) (acquired), right foot; L89.893 Pressure ulcer of other site, stage 3; M62.81 Muscle weakness (generalized); T87.89 Other complications of amputation stump; Y82.8 Other medical devices associated with adverse incidents; F10.11 Alcohol abuse, in remission
CPT/HCPCS: 11042; A6212; G0463

== ENCOUNTER → 2023-02-28 | Outpatient (CLI) | payer MEDICARE, MEDICAID | LOC: WOUNDCARE 09:31 | PROVIDERS: ATTEND Family Medicine | DX: I96 Gangrene, not elsewhere classified (principal); I70.235 Atherosclerosis of native arteries of right leg with ulceration of other part of foot; I70.241 Atherosclerosis of native arteries of left leg with ulceration of thigh; F10.11 Alcohol abuse, in remission; M20.41 Other hammer toe(s) (acquired), right foot; L97.516 Non-pressure chronic ulcer of other part of right foot with bone involvement without evidence of necrosis; M62.81 Muscle weakness (generalized); T87.89 Other complications of amputation stump; Y82.8 Other medical devices associated with adverse incidents | CPT/HCPCS: 11042; 87070; 87205; A6212; G0463 ==

== ENCOUNTER → 2023-03-09 | Outpatient (CLI) | payer MEDICARE, MEDICAID | LOC: WOUNDCARE 12:45 | PROVIDERS: ATTEND Family Medicine | DX: I96 Gangrene, not elsewhere classified (principal); L97.516 Non-pressure chronic ulcer of other part of right foot with bone involvement without evidence of necrosis; I70.235 Atherosclerosis of native arteries of right leg with ulceration of other part of foot; M20.41 Other hammer toe(s) (acquired), right foot; L89.893 Pressure ulcer of other site, stage 3; I70.241 Atherosclerosis of native arteries of left leg with ulceration of thigh; M62.81 Muscle weakness (generalized); T87.89 Other complications of amputation stump; Y82.8 Other medical devices associated with adverse incidents; F10.11 Alcohol abuse, in remission | CPT/HCPCS: 11042; A6212; G0463 ==

== ENCOUNTER → 2023-03-16 | Outpatient (CLI) | payer MEDICARE, MEDICAID | LOC: WOUNDCARE 11:53 | PROVIDERS: ATTEND Family Medicine | DX: I96 Gangrene, not elsewhere classified (principal); I70.235 Atherosclerosis of native arteries of right leg with ulceration of other part of foot; I70.241 Atherosclerosis of native arteries of left leg with ulceration of thigh; L97.516 Non-pressure chronic ulcer of other part of right foot with bone involvement without evidence of necrosis; F10.11 Alcohol abuse, in remission; M20.41 Other hammer toe(s) (acquired), right foot; L89.893 Pressure ulcer of other site, stage 3; M62.81 Muscle weakness (generalized); T87.89 Other complications of amputation stump; Y82.8 Other medical devices associated with adverse incidents | CPT/HCPCS: 11042; A6212; G0463 ==

== ENCOUNTER → 2023-03-23 | Outpatient (CLI) | payer MEDICARE, MEDICAID | LOC: WOUNDCARE 13:13 | PROVIDERS: ATTEND Family Medicine | DX: I96 Gangrene, not elsewhere classified (principal); I70.235 Atherosclerosis of native arteries of right leg with ulceration of other part of foot; I70.241 Atherosclerosis of native arteries of left leg with ulceration of thigh; L97.516 Non-pressure chronic ulcer of other part of right foot with bone involvement without evidence of necrosis; T87.89 Other complications of amputation stump; L89.893 Pressure ulcer of other site, stage 3; F10.11 Alcohol abuse, in remission; M20.41 Other hammer toe(s) (acquired), right foot; M62.81 Muscle weakness (generalized); Y82.8 Other medical devices associated with adverse incidents | CPT/HCPCS: 11042; A6212; G0463 ==

== ENCOUNTER → 2023-03-28 | Outpatient (CLI) | payer MEDICARE, MEDICAID | LOC: WOUNDCARE 12:33 | PROVIDERS: ATTEND Family Medicine | DX: L97.516 Non-pressure chronic ulcer of other part of right foot with bone involvement without evidence of necrosis (principal); I70.235 Atherosclerosis of native arteries of right leg with ulceration of other part of foot; F10.11 Alcohol abuse, in remission; M20.41 Other hammer toe(s) (acquired), right foot; L89.893 Pressure ulcer of other site, stage 3; I70.241 Atherosclerosis of native arteries of left leg with ulceration of thigh; R53.1 Weakness; T87.89 Other complications of amputation stump; Y82.8 Other medical devices associated with adverse incidents; I96 Gangrene, not elsewhere classified | CPT/HCPCS: A6212; G0463; 99213 ==

== ENCOUNTER → 2023-04-06 | Outpatient (CLI) | payer MEDICARE, MEDICAID | LOC: WOUNDCARE 11:31 | PROVIDERS: ATTEND Family Medicine | DX: I96 Gangrene, not elsewhere classified (principal); L97.516 Non-pressure chronic ulcer of other part of right foot with bone involvement without evidence of necrosis; I70.235 Atherosclerosis of native arteries of right leg with ulceration of other part of foot; F10.11 Alcohol abuse, in remission; M20.41 Other hammer toe(s) (acquired), right foot; L89.893 Pressure ulcer of other site, stage 3; I70.242 Atherosclerosis of native arteries of left leg with ulceration of calf; M62.81 Muscle weakness (generalized); T87.89 Other complications of amputation stump; Y82.8 Other medical devices associated with adverse incidents | CPT/HCPCS: 99213 ==

== ENCOUNTER → 2023-04-21 | Outpatient (CLI) | payer MEDICARE, MEDICAID ==
[2023-04-21 10:59] LABS: BASOPHILS % (AUTO) 1 % (0-10); EOSINOPHILS # (AUTO) 0.2 10^3/uL (0.0-0.3); EOSINOPHILS % (AUTO) 3 % (0-10); HEMATOCRIT 42 % (40-54); HEMOGLOBIN 13.9 g/dL (13.3-17.7); LYMPHOCYTES # (AUTO) 1.6 10^3/uL (1.0-4.0); LYMPHOCYTES % (AUTO) 22 % (12-44); MEAN CORPUSCULAR HEMOGLOBIN 32 pg (25-34); MEAN CORPUSCULAR HGB CONC 33 g/dL (32-36); MEAN CORPUSCULAR VOLUME 95 fL (80-99); MEAN PLATELET VOLUME 8.7 fL (9.0-12.2); MONOCYTES # (AUTO) 0.4 10^3/uL (0.0-1.0); MONOCYTES % (AUTO) 5 % (0-12); NEUTROPHILS # (AUTO) 5.1 10^3/uL (1.8-7.8); NEUTROPHILS % (AUTO) 70 % (42-75); PLATELET COUNT 287 10^3/uL (130-400); WHITE BLOOD COUNT 7.3 10^3/uL (4.3-11.0)
== END ==
LOC: LAB 10:46
DX: I48.91 Unspecified atrial fibrillation (principal)
CPT/HCPCS: 36415; 85025

== ENCOUNTER → 2023-04-21 | Outpatient (CLI) | payer MEDICARE, MEDICAID | LOC: WOUNDCARE 10:54 | PROVIDERS: ATTEND Family Medicine | DX: I96 Gangrene, not elsewhere classified (principal); L97.516 Non-pressure chronic ulcer of other part of right foot with bone involvement without evidence of necrosis; I70.235 Atherosclerosis of native arteries of right leg with ulceration of other part of foot; M20.41 Other hammer toe(s) (acquired), right foot; L89.893 Pressure ulcer of other site, stage 3; I70.242 Atherosclerosis of native arteries of left leg with ulceration of calf; M62.81 Muscle weakness (generalized); T87.89 Other complications of amputation stump; Y82.8 Other medical devices associated with adverse incidents; F10.11 Alcohol abuse, in remission | CPT/HCPCS: 99213 ==